=== PATIENT | male | born 1950 | race Caucasian/White ===

== ENCOUNTER 2016-08-05 12:03 | Emergency (ER) | payer MEDICARE, BC, OTHER ==
[2016-08-05 12:13] VITALS: TEMP 98.2
[2016-08-05] MEDS ORDERED: IPRATROPIUM 0.5 MG/2.5 ML NEBU INHALATION STA (12:40)
[2016-08-05] MEDS ORDERED: methylPREDNISolone SOD SUCCI 125 MG/2 ML VIAL IV STA (12:40)
[2016-08-05] MEDS ORDERED: ALBUTEROL NEBULIZED 2.5 MG/3 ML INHALATION STA (12:40)
[2016-08-05] MEDS ORDERED: SODIUM CHLORIDE 0.9% 1,000 ML IV STA (12:40)
[2016-08-05] MEDS ORDERED: cefTRIAXone 2,000 MG in SODIUM CHLORIDE 0.9% 100 ML IVPB STA (12:43)
[2016-08-05] MEDS ORDERED: PANTOPRAZOLE 40 MG/10 ML VIAL IVP STA (12:43)
[2016-08-05 13:00] LABS: Anisocytosis Slight; Basophils # (A) 0.1 k/uL (0-0.2); Basophils % (A) 1 %; CH 27.5; CHCM 30.8; Eosinophils # (A) 0.4 k/uL (0-0.7); Eosinophils % (A) 4 %; HCT 38.4 % (39.0-53.0); HDW 2.76; HGB 11.9 gm/dL (13.0-17.5); Hypochromasia Moderate; Luc # (Auto) 0.36; Luc % (Auto) 4; Lymphocytes # (A) 0.9 k/uL (1.0-4.8); Lymphocytes % (A) 11 %; MCH 27.9 pg (25.0-35.0); MCV 90.1 fL (80.0-100.0); Mean Platelet Volume 7.2; Monocytes # (A) 0.7 k/uL (0-1.0); Monocytes % (A) 8 %; Neutrophils % (A) 72 %; RBC 4.26 m/uL (4.30-5.90); RDW 16.3 % (11.5-15.5); WBC 8.4 k/uL (3.8-10.6); WBC (Perox) 8.63
--- NOTE | 2016-08-05 13:02 | XR ---
EXAMINATION TYPE: XR chest 2V DATE OF EXAM: 08/05/2016 12:57 PM COMPARISON: March 19, 2016 HISTORY: Shortness of breath TECHNIQUE: Frontal and lateral views of the chest are obtained. FINDINGS: Scattered senescent parenchymal changes noted. Hyperinflation compatible with COPD. No evidence for infiltrate. No evidence for atelectasis. Heart size is stable. Mediastinal structures are stable and grossly unremarkable. No evidence for hilar prominence. Degenerative changes dorsal spine. IMPRESSION: 1. No evidence for acute pulmonary disease.
[2016-08-05 13:17] LABS: VBG PH 7.4 (7.31-7.41)
[2016-08-05 13:18] LABS: INR 1.5 (<1.1)
[2016-08-05 13:19] LABS: ALT 52 U/L (21-72); AST 101 U/L (17-59); Alkaline Phosphatase 198 U/L (38-126); Anion Gap 13 mmol/L; Blood Urea Nitrogen 18 mg/dL (9-20); Calcium 8.6 mg/dL (8.4-10.2); Carbon Dioxide 32 mmol/L (22-30); Chloride 98 mmol/L (98-107); Glucose 108 mg/dL (74-99); Non-African American GFR(MDRD) >60 (>60 ml/min/1.73 sqM); Partial Thromboplastin Time 34.4 sec (22.0-30.0); Prothrombin Time 14.6 sec (9.0-12.0); Sodium 143 mmol/L (137-145); Total Bilirubin 0.6 mg/dL (0.2-1.3); Total Protein 7.6 g/dL (6.3-8.2)
[2016-08-05 13:35] LABS: Creatine Kinase 57 U/L (55-170)
[2016-08-05 13:47] LABS: Creatine Kinase MB 1.5 ng/mL (0.0-2.4); Troponin I <0.012 ng/mL (0.000-0.034)
[2016-08-05] MEDS ORDERED: RX INFO: IV CONTRAST WAS GIVEN 1 EACH MISC MISCELLANE PRN (16:23)
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
[2016-08-05 16:58] VITALS: RESP 20
[2016-08-05 17:05] VITALS: BP 144/67; PULSE 61
--- NOTE | 2016-08-05 17:14 | CT ---
EXAMINATION TYPE: CT chest angio for PE DATE OF EXAM: 08/05/2016 5:05 PM COMPARISON: 08/23/2014 HISTORY: Difficulty breathing and chest pain. CT DLP: 790.00 mGycm Automated exposure control for dose reduction was used. CONTRAST: CT Chest for pulmonary embolism performed with with IV Contrast, patient injected with 100 mL of Omni paque 350. FINDINGS: There are small bilateral pleural effusions. The heart appears enlarged. There is aneurysm of the aor tic arch and the proximal descending thoracic aorta that measures up to 4.4 cm. There is normal contr ast opacification of the pulmonary arteries. I see no filling defects. There is no evidence of aortic dissection. There is no pericardial effusion. There is mild subpleural interstitial density in the l eft lung. There is some mild infiltrate and atelectasis at the left posterior lung base. There is sim ilar change at the medial posterior right lung base. IMPRESSION: No evidence of pulmonary embolism. Bilateral pleural effusions with basilar mild infiltrates and atel ectasis. 4.4 cm descending thoracic aortic aneurysm. Aneurysm is stable compared to 08/23/2014. There is significant clearing of the extensive pulmonary edema in the mid and upper lung melendrez and the ext ensive consolidation at the lung bases compared to last exam. Cardiomegaly. Small pleural effusions. There is probably a small hiatal hernia.
== END 2016-08-05 19:31 | disposition home or self-care (01) ==
LOC: EC 12:03
DX: R06.00 Dyspnea, unspecified (principal); K92.2 Gastrointestinal hemorrhage, unspecified; I71.2 Thoracic aortic aneurysm, without rupture; J90 Pleural effusion, not elsewhere classified; I51.7 Cardiomegaly; I48.92 Unspecified atrial flutter; I10 Essential (primary) hypertension; I25.10 Atherosclerotic heart disease of native coronary artery without angina pectoris; E78.5 Hyperlipidemia, unspecified; J44.9 Chronic obstructive pulmonary disease, unspecified; I27.2 Other secondary pulmonary hypertension; H35.30 Unspecified macular degeneration; K21.9 Gastro-esophageal reflux disease without esophagitis; F17.200 Nicotine dependence, unspecified, uncomplicated; Z95.2 Presence of prosthetic heart valve; Z79.01 Long term (current) use of anticoagulants; Z79.82 Long term (current) use of aspirin; Z98.61 Coronary angioplasty status; Z86.718 Personal history of other venous thrombosis and embolism; Z79.899 Other long term (current) drug therapy
CPT/HCPCS: 99291; 96365; 96366 ×2; 96375 ×2; 36415; 94640; 93005; 85379; 83880; 80053; 82550; 82553; 82803; 84484; 85025; 85610; 85730; 82272; 71020; 71275; J2930; Q9967; J0696; C9113

== ENCOUNTER 2016-08-11 13:01 | Inpatient (IN) | payer MEDICARE, BC ==
[2016-08-11] MEDS ORDERED: FUROSEMIDE 10 MG/ML 10 ML VIAL IV STA (13:46)
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
--- NOTE | 2016-08-11 15:07 | XR ---
EXAMINATION TYPE: XR chest 2V DATE OF EXAM: 08/11/2016 2:52 PM COMPARISON: Prior chest x-ray 05 August 2016 HISTORY: Difficulty breathing, chest pain TECHNIQUE: Frontal and lateral views of the chest are obtained. FINDINGS: Patient is post median sternotomy. Surgical clips again noted in the right upper chest lev el. Probable metallic foreign body at the level of the distal right clavicle. Heart is enlarged. Interstitium and central vascularity are prominent. No pneumothorax or pleural eff usion. Prominent lung volumes suggest underlying COPD. There are coronary artery calcifications, atri al appendage clip. IMPRESSION: Correlate for pulmonary venous hypertension and early interstitial edema.
[2016-08-11 15:08] LABS: Basophils % (A) 0 %; CH 27.4; CHCM 31.1; Eosinophils # (A) 0.2 k/uL (0-0.7); Eosinophils % (A) 2 %; HCT 38.4 % (39.0-53.0); HDW 2.88; HGB 11.8 gm/dL (13.0-17.5); Hypochromasia Moderate; Luc # (Auto) 0.27; Luc % (Auto) 3; Lymphocytes # (A) 1.2 k/uL (1.0-4.8); Lymphocytes % (A) 13 %; MCH 27.2 pg (25.0-35.0); MCHC 30.7 g/dL (31.0-37.0); MCV 88.7 fL (80.0-100.0); Mean Platelet Volume 7.7; Monocytes # (A) 0.8 k/uL (0-1.0); Monocytes % (A) 8 %; Neutrophils # (A) 6.6 k/uL (1.3-7.7); Neutrophils % (A) 73 %; RBC 4.34 m/uL (4.30-5.90); RDW 15.8 % (11.5-15.5); WBC 9.1 k/uL (3.8-10.6); WBC (Perox) 9.51
[2016-08-11 15:16] LABS: ALT 46 U/L (21-72); AST 70 U/L (17-59); Alkaline Phosphatase 172 U/L (38-126); Anion Gap 9 mmol/L; Blood Urea Nitrogen 20 mg/dL (9-20); Calcium 8.5 mg/dL (8.4-10.2); Carbon Dioxide 31 mmol/L (22-30); Chloride 96 mmol/L (98-107); Glucose 89 mg/dL (74-99); Magnesium 1.4 mg/dL (1.6-2.3); Non-African American GFR(MDRD) >60 (>60 ml/min/1.73 sqM); Potassium 4.5 mmol/L (3.5-5.1); Sodium 136 mmol/L (137-145); Total Bilirubin 0.9 mg/dL (0.2-1.3); Total Protein 7.3 g/dL (6.3-8.2)
[2016-08-11 15:17] LABS: Partial Thromboplastin Time 34.7 sec (22.0-30.0); Prothrombin Time 19.7 sec (9.0-12.0)
[2016-08-11 15:29] LABS: Creatine Kinase 45 U/L (55-170)
[2016-08-11 15:41] LABS: Creatine Kinase MB 1.4 ng/mL (0.0-2.4); Troponin I <0.012 ng/mL (0.000-0.034)
[2016-08-11] MEDS ORDERED: ASPIRIN 325 MG TAB PO STA (16:14)
[2016-08-11] MEDS ORDERED: FUROSEMIDE 10 MG/ML 4 ML VIAL IV SCH (16:15)
[2016-08-11] MEDS: NITROGLYCERIN OINT 1 INCH/GM PACKET TOPICAL SCH ×2 (18:27→22:09)
[2016-08-11] MEDS ORDERED: ALBUTEROL NEBULIZED 2.5 MG/3 ML INHALATION PRN (20:26)
[2016-08-11] MEDS ORDERED: Magnesium Replacement Protocol 1 EACH MISC MISCELLANE PRN (20:32)
[2016-08-11] MEDS: ATORVASTATIN 40 MG TAB PO SCH (22:06)
[2016-08-11] MEDS: FERROUS SULFATE 325 MG TAB PO SCH (22:06)
[2016-08-11] MEDS: PRAMIPEXOLE 0.25 MG TAB PO SCH (22:06)
[2016-08-11] MEDS: PREGABALIN 50 MG CAP PO SCH (22:06)
[2016-08-11] MEDS: WARFARIN 3 MG TAB PO SCH (22:06)
[2016-08-11] MEDS: ZONISAMIDE 25 MG CAP PO SCH (22:07)
[2016-08-11] MEDS: NICOTINE 21MG/24HR PATCH TRANSDERM SCH (22:07)
[2016-08-11] MEDS: METOPROLOL TARTRATE 50 MG TAB PO SCH (22:07)
[2016-08-11] MEDS: AMIODARONE 200 MG TAB PO SCH (22:08)
[2016-08-11] MEDS: BRIMONIDINE TARTRATE 0.2% DROPS 5 ML BTL BOTH EYES SCH (22:08)
[2016-08-11] MEDS: FUROSEMIDE 10 MG/ML 4 ML VIAL IV SCH (22:09)
[2016-08-11] MEDS: ARTIFICIAL TEARS-HYPROMELLOSE DROPS 15 ML BTL BOTH EYES SCH (22:09)
[2016-08-11] MEDS: MAGNESIUM SULFATE-D5W PMX 1 GM in DEXTROSE/WATER 1 100ML.BAG IVPB SCH (22:10)
[2016-08-12] MEDS: MAGNESIUM SULFATE-D5W PMX 1 GM in DEXTROSE/WATER 1 100ML.BAG IVPB SCH ×2 (00:11→01:23)
[2016-08-12] MEDS ORDERED: ALBUTEROL NEBULIZED 2.5 MG/3 ML INHALATION SCH (02:00)
[2016-08-12 03:22] LABS: INR 1.8 (<1.1); Prothrombin Time 17.6 sec (9.0-12.0)
[2016-08-12] MEDS: ALBUTEROL NEBULIZED 2.5 MG/3 ML INHALATION SCH ×4 (08:38→20:12)
[2016-08-12] MEDS: SYMBICORT 160-4.5 MCG INHALER INHALATION SCH ×2 (08:38→20:12)
[2016-08-12] MEDS: AMIODARONE 200 MG TAB PO SCH ×2 (08:39→21:15)
[2016-08-12] MEDS: POTASSIUM CHLORIDE ER 20 MEQ TAB.ER PO SCH (08:39)
[2016-08-12] MEDS: TIOTROPIUM 18 MCG/PUFF INHALER INHALATION SCH (08:39)
[2016-08-12] MEDS: DILTIAZEM CD 240 MG CAP.ER.24H PO SCH (08:39)
[2016-08-12] MEDS: FOLIC ACID 1 MG TAB PO SCH (08:39)
[2016-08-12] MEDS: METOPROLOL TARTRATE 50 MG TAB PO SCH ×2 (08:39→21:16)
[2016-08-12] MEDS: FERROUS SULFATE 325 MG TAB PO SCH (08:39)
[2016-08-12] MEDS: PREGABALIN 50 MG CAP PO SCH ×2 (08:39→21:16)
[2016-08-12] MEDS: ASPIRIN 81 MG CHEW PO SCH (08:39)
[2016-08-12] MEDS: NITROGLYCERIN OINT 1 INCH/GM PACKET TOPICAL SCH (08:40)
[2016-08-12] MEDS: BRIMONIDINE TARTRATE 0.2% DROPS 5 ML BTL BOTH EYES SCH ×2 (08:40→21:16)
[2016-08-12] MEDS: FUROSEMIDE 10 MG/ML 4 ML VIAL IV SCH ×3 (08:40→22:57)
[2016-08-12] MEDS: PANTOPRAZOLE 40 MG TABLET PO SCH (08:40)
[2016-08-12] MEDS: ARTIFICIAL TEARS-HYPROMELLOSE DROPS 15 ML BTL BOTH EYES SCH ×4 (08:40→21:17)
[2016-08-12] MEDS: MULTIVITAMINS, THERA 1 EACH TAB PO SCH (08:41)
[2016-08-12] MEDS: NICOTINE 21MG/24HR PATCH TRANSDERM SCH ×2 (08:41→08:52)
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
--- NOTE | 2016-08-12 16:31 | HP ---
DATE OF ADMISSION: This patient is a 66-year-old gentleman with severe COPD, chronic persistent atrial fibrillation, prior valve replacement. He came in with complaints of shortness of breath. Patient does not give me clear history of orthopnea, PND. Patient does have pets, history of COPD as well. Continues to smoke at this point of time, although patient has minimal wheezing. Beyond that, patient did not have much wheezing. Chest x-ray is consistent with pulmonary edema with bilateral pedal edema and worsening shortness of breath with some orthopnea. No clear history of PND. Patient was complaining of cough with yellowish sputum production. Patient's EKG showed atrial fibrillation with controlled ventricular rate. Patient is admitted here for CHF exacerbation. Patient has chronic diastolic dysfunction. Patient received CABG in the past. BNP is 1460. Patient was started on IV Lasix with ( ) diuresis. Patient says he is concerned with his diet, though, and conflict with his medications. REVIEW OF SYSTEMS: CONSTITUTIONAL: No fever, no malaise, no fatigue. HEENT: No recent visual problems or hearing problems. Denied any sore throat. CARDIOVASCULAR: As described in HPI. PULMONARY: As described in HPI. GASTROINTESTINAL: No diarrhea, no nausea, no vomiting, no abdominal pain. Normoactive bowel sounds. NEUROLOGICAL: No headaches, no weakness, no numbness. HEMATOLOGICAL: Denies any bleeding or petechiae. GENITOURINARY: Denies any burning micturition, frequency, or urgency. MUSCULOSKELETAL/RHEUMATOLOGICAL: Denies any joint pain, swelling, or any muscle pain. ENDOCRINE: Denies any polyuria or polydipsia. The rest of the 14 point review of systems is negative. Past medical history is significant for: 1. Atrial fibrillation. 2. Chronic diastolic dysfunction. 3. Coronary artery disease with previous history of CABG. 4. COPD. 5. DVT in the past, on Coumadin anticoagulation. 6. Gastroesophageal reflux disease. 7. Hyperlipidemia. 8. Hypertension. 9. Liver disease. 10. Aortic valve replacement with a bioprosthetic aortic valve. 11. Chronic stable aortic dissection. PAST SURGICAL HISTORY: 1. Cardiac valve replacement. 2. Cardiac catheterization. 3. Hernia repair. 4. Orthopedic surgery. 5. Prostate surgery. SOCIAL HISTORY: Patient does smoke. Denied any alcohol abuse or any drug abuse. FAMILY HISTORY: Mother had diabetes mellitus; at age 74. Father had congestive heart failure; at age 91. Home medications include: 1. Amiodarone. 2. Aspirin. 3. Diltiazem. 4. Metoprolol. 5. Potassium chloride. 6. Zonegran. 7. Budesonide/formoterol. 8. Brimonidine. 9. Thiamine. 10. Artificial Tears. 11. Ferrous sulfate. 12. Pramipexole. 13. Albuterol. 14. Multivitamins. 15. Spiriva. 16. Tiotropium. 17. Coumadin. PHYSICAL EXAMINATION: VITAL SIGNS: Temperature 97.8, pulse of 96, respiratory rate of 16. Blood pressure is 113/53. Saturating at 100% on room air. GENERAL: Obese gentleman. Alert and oriented x3, not in significant respiratory distress. HEENT: Pupils are round and equally reacting to light. EOMI. No scleral icterus. No conjunctival pallor. Normocephalic, atraumatic. No pharyngeal erythema. No thyromegaly. CARDIOVASCULAR: S1, S2 present. Irregularly irregular rhythm. I am not able to appreciate JVD. Patient does have pedal edema. I did not appreciate any S3, either. PULMONARY: Bibasilar crackles are heard. ABDOMEN: Soft, nontender, nondistended, normoactive bowel sounds. No palpable organomegaly. MUSCULOSKELETAL: No joint swelling or deformity. EXTREMITIES: No cyanosis, clubbing. Patient does have pedal edema. NEUROLOGICAL: Gross neurological examination did not reveal any focal deficits. SKIN: No rashes. LABORATORY DATA: CBC, CMP are abnormal for minimally elevated ( ) INR: I have to recheck the INR. EKG: Atrial fibrillation with controlled ventricular response. ASSESSMENT AND PLAN: 1. Congestive heart failure; chronic diastolic dysfunction with acute exacerbation and moderate pulmonary hypertension. Patient is being diuresed, as mentioned above. 2. Moderate pulmonary hypertension. 3. Persistent atrial fibrillation, rate controlled. INR is subtherapeutic at 1.8. Will continue the same dose of Coumadin. Will recheck the INR tomorrow. 4. Hyperlipidemia. 5. Chronic obstructive pulmonary disease with minimal exacerbation. I will watch him without systemic steroids. If patient's symptoms do not improve, will start him on systemic steroids. 6. Nicotine dependence. Counseling was provided. 7. Aortic valve replacement. 8. History of deep venous thrombosis. 9. Prior history of ( ) 10. Hepatitis C. 11. Alcoholic abuse history in the past. 12. Aortic dissection history in the past. 13. Gastroesophageal reflux disease. 14. Hyperlipidemia. For the above-mentioned chronic medical problems, I will go ahead and continue his home medications. Extensive counseling regarding smoking cessation was provided.
[2016-08-12] MEDS: ZONISAMIDE 25 MG CAP PO SCH ×2 (16:53→22:57)
[2016-08-12] MEDS: WARFARIN 2 MG TAB PO SCH (16:57)
[2016-08-12] MEDS: PRAMIPEXOLE 0.25 MG TAB PO SCH (21:16)
[2016-08-12] MEDS: ATORVASTATIN 40 MG TAB PO SCH (21:16)
[2016-08-13 06:32] LABS: CH 27.4; CHCM 30.3; HCT 35.8 % (39.0-53.0); HGB 10.6 gm/dL (13.0-17.5); Hypochromasia Marked; MCH 27.1 pg (25.0-35.0); MCHC 29.7 g/dL (31.0-37.0); Mean Platelet Volume 8.2; RBC 3.93 m/uL (4.30-5.90); RDW 15.8 % (11.5-15.5); WBC 7.8 k/uL (3.8-10.6)
[2016-08-13 06:47] LABS: Anion Gap 10 mmol/L; Blood Urea Nitrogen 15 mg/dL (9-20); Calcium 8.6 mg/dL (8.4-10.2); Carbon Dioxide 31 mmol/L (22-30); Chloride 100 mmol/L (98-107); Glucose 109 mg/dL (74-99); Non-African American GFR(MDRD) >60 (>60 ml/min/1.73 sqM); Potassium 4.2 mmol/L (3.5-5.1); Sodium 141 mmol/L (137-145)
[2016-08-13] MEDS: FUROSEMIDE 10 MG/ML 4 ML VIAL IV SCH ×2 (07:51→21:15)
[2016-08-13] MEDS: BRIMONIDINE TARTRATE 0.2% DROPS 5 ML BTL BOTH EYES SCH ×2 (07:52→21:15)
[2016-08-13] MEDS: FOLIC ACID 1 MG TAB PO SCH (07:52)
[2016-08-13] MEDS: DILTIAZEM CD 240 MG CAP.ER.24H PO SCH (07:52)
[2016-08-13] MEDS: FERROUS SULFATE 325 MG TAB PO SCH (07:52)
[2016-08-13] MEDS: ASPIRIN 81 MG CHEW PO SCH (07:52)
[2016-08-13] MEDS: ARTIFICIAL TEARS-HYPROMELLOSE DROPS 15 ML BTL BOTH EYES SCH ×4 (07:52→23:04)
[2016-08-13] MEDS: PANTOPRAZOLE 40 MG TABLET PO SCH (07:53)
[2016-08-13] MEDS: AMIODARONE 200 MG TAB PO SCH ×2 (07:53→21:14)
[2016-08-13] MEDS: NICOTINE 21MG/24HR PATCH TRANSDERM SCH (07:53)
[2016-08-13] MEDS: ZONISAMIDE 25 MG CAP PO SCH ×2 (07:53→21:12)
[2016-08-13] MEDS: METOPROLOL TARTRATE 50 MG TAB PO SCH ×3 (07:53→21:13)
[2016-08-13] MEDS: MULTIVITAMINS, THERA 1 EACH TAB PO SCH (07:53)
[2016-08-13] MEDS: POTASSIUM CHLORIDE ER 20 MEQ TAB.ER PO SCH (07:53)
[2016-08-13] MEDS: PREGABALIN 50 MG CAP PO SCH ×2 (07:54→21:13)
[2016-08-13] MEDS: ALBUTEROL NEBULIZED 2.5 MG/3 ML INHALATION SCH ×4 (08:31→20:50)
[2016-08-13] MEDS: TIOTROPIUM 18 MCG/PUFF INHALER INHALATION SCH (08:31)
[2016-08-13] MEDS: SYMBICORT 160-4.5 MCG INHALER INHALATION SCH ×2 (08:31→20:48)
[2016-08-13 10:53] LABS: INR 1.9 (<1.1); Prothrombin Time 18.2 sec (9.0-12.0)
--- NOTE | 2016-08-13 12:20 | P.PN ---
Subjective Principal diagnosis: CHF This is a pleasant 66-year-old gentleman with a past medical history significant for heart failure with preserved LV, systemic hypertension, chronic atrial fibrillation, and COPD, was admitted to the hospital with acute respiratory failure secondary to congestive heart failure exacerbation. The last echocardiogram showed preserved LV function with EF of 50-55%. On follow-up with the patient today, he still short of breath. He still have bilateral lower extremities edema. And also he still have crackles on examination. The kidney function was checked and seems to be normal. I will continue the patient on Lasix IV for additional 24-hour and reassess the patient in the morning and follow-up with the kidney function in the morning. He underwent an echocardiogram which we don't have the results back yet. Objective - Vital Signs Vital signs: Vital Signs Temp 98.2 F 08/13/16 11:50 Pulse 64 08/13/16 11:59 Resp 18 08/13/16 11:50 BP 109/54 08/13/16 11:50 Pulse Ox 94 L 08/13/16 11:50 Intake & Output 08/12/16 08/13/16 08/13/16 18:59 06:59 18:59 Intake Total 600 300 Output Total 700 2475 500 Balance -100 -2175 -500 Weight 101.5 kg Intake: Oral 600 300 Output: Urine 700 2475 500 Other: Voiding Method Urinal Urinal # Voids 1 1 # Bowel Movements 0 0 - Constitutional General appearance: Present: no acute distress - Respiratory Respiratory: bilateral: rales - Cardiovascular Rhythm: irregularly irregular Heart sounds: normal: S1, S2 - Labs CBC & Chem 7: 08/13/16 06:03 08/13/16 06:03 Labs: Abnormal Lab Results - Last 24 Hours (Table) 08/13/16 08/13/16 08/13/16 Range/Units 06:03 06:03 10:27 RBC 3.93 L (4.30-5.90) m/uL Hgb 10.6 L (13.0-17.5) gm/dL Hct 35.8 L (39.0-53.0) % MCHC 29.7 L (31.0-37.0) g/dL RDW 15.8 H (11.5-15.5) % PT 18.2 H (9.0-12.0) sec Carbon Dioxide 31 H (22-30) mmol/L Glucose 109 H (74-99) mg/dL Assessment and Plan Plan: Assessment #1 congestive heart failure exacerbation secondary to diastolic dysfunction #2 claudication fibrillation was controlled heart rate #3 moderate to severe COPD #4 multiple comorbid conditions Plan #1 continue the IV Lasix for additional 24 hours #2 continue monitoring the kidney function and electrolytes #3 follow-up with the patient
--- NOTE | 2016-08-13 12:52 | ECHOF ---
Referral Reason:CHF MEASUREMENTS -------- HEIGHT: 175.3 cm WEIGHT: 103.4 kg BP: RVIDd: 3.8 cm (< 3.3) IVSd: 1.3 cm (0.6 - 1.1) LVIDd: 5.1 cm (3.9 - 5.3) LVPWd: 1.3 cm (0.6 - 1.1) IVSs: 2.0 cm LVIDs: 2.7 cm LVPWs: 2.0 cm Ao Diam: 4.0 cm (2.0 - 3.7) AV Cusp: 1.2 cm (1.5 - 2.6) LA Diam: 4.8 cm (2.7 - 3.8) MV EXCURSION: 10.152 mm (> 18.000) MV EF SLOPE: 88 mm/s (70 - 150) EPSS: 0.7 cm MV E Juan: 1.02 m/s MV DecT: 165 ms MV A Juan: 0.28 m/s MV E/A Ratio: 3.65 AV maxP.00 mmHg AV meanP.06 mmHg AR PHT: 472 ms RAP: 5.00 mmHg RVSP: 32.12 mmHg FINDINGS -------- Sinus rhythm. This was a technically difficult study with suboptimal views. There is mild concentric left ventricular hypertrophy. Overall left ventricular systolic function is low-normal with, an EF between 50 - 55 %. There is paradoxical/dysynergic septal motion consistent with post-operative status. The right ventricle is mild to moderately enlarged. The left atrium is mildly dilated. The right atrium is normal in size. 1.5mg of Definity was utilized for enhancement of images Aortic valve is trileaflet and is moderately thickened. There is mild aortic regurgitation. The mitral valve leaflets are mildly thickened. Mild mitral annular calcification present. Mild mitral regurgitation is present. Mild tricuspid regurgitation present. The right ventricular systolic pressure, as measured by Doppler, is 32.12mmHg. Pulmonic valve appears structurally normal. The aortic root is mildy dilated. The pericardium is normal. CONCLUSIONS -------- 1. Sinus rhythm. 2. Aortic valve is trileaflet and is moderately thickened. 3. There is mild aortic regurgitation. 4. The mitral valve leaflets are mildly thickened. 5. Mild mitral annular calcification present. 6. Mild mitral regurgitation is present. 7. Mild tricuspid regurgitation present. 8. The right ventricular systolic pressure, as measured by Doppler, is 32.12mmHg. 9. Pulmonic valve appears structurally normal. 10. The aortic root is mildy dilated. 11. The pericardium is normal. 12. This was a technically difficult study with suboptimal views. 13. There is mild concentric left ventricular hypertrophy. 14. Overall left ventricular systolic function is low-normal with, an EF between 50 - 55 %. 15. There is paradoxical/dysynergic septal motion consistent with post-operative status. 16. The right ventricle is mild to moderately enlarged. 17. The left atrium is mildly dilated. 18. The right atrium is normal in size. 19. 1.5mg of Definity was utilized for enhancement of images [employer]: Paz Payne RDCS
[2016-08-13 14:22] VITALS: BMI 33.0
--- NOTE | 2016-08-13 16:52 | PN ---
Patient is a 66-year-old admitted with CHF exacerbation. The patient has had some dysfunction with acute exacerbation. Patient is clinically doing well. We will continue with diuretic therapy for 24 more hours and possibly the patient can be discharged tomorrow. REVIEW OF SYSTEMS: CARDIOVASCULAR: No chest pain, no orthopnea, no PND, no palpitations. PULMONARY: Denied any shortness of breath. No cough or hemoptysis. GASTROINTESTINAL: No diarrhea, nausea or vomiting. No abdominal pain. Normoactive bowel sounds. NEUROLOGIC: No headaches, no weakness, no numbness. Medications were reviewed. PHYSICAL EXAMINATION: Temperature 98.2, pulse of 64, respiratory rate 18, and blood pressure is 109/54, saturating at 94% on 2 L O2 by nasal cannula. GENERAL: The patient is alert and oriented x3, not in any acute distress. Well developed, well nourished. HEENT: Pupils are round and equally reacting to light. EOMI. No scleral icterus. No conjunctival pallor. Normocephalic, atraumatic. No pharyngeal erythema. No thyromegaly. CARDIOVASCULAR: JVD did improve. No murmurs, rubs, or gallops are appreciated. PULMONARY: Chest is clear to auscultation, no wheezing or crackles. ABDOMEN: Soft, nontender, nondistended, normoactive bowel sounds. No palpable organomegaly. MUSCULOSKELETAL: No joint swelling or deformity. EXTREMITIES: No cyanosis, clubbing, or pedal edema. NEUROLOGICAL: Gross neurological examination did not reveal any focal deficits. SKIN: No rashes. LABORATORY DATA: CBC, CMP, essentially within normal limits. Metabolic profile no significant abnormality was appreciated except for mildly low hemoglobin of 10.6. ASSESSMENT: 1. Congestive heart failure, chronic diastolic dysfunction with acute exacerbation. Patient has moderate pulmonary hypertension as well. 2. Atrial fibrillation, rate controlled. INR is 1.9 now. Continue the same dose of Coumadin. Repeat INR tomorrow. 3. Hyperlipidemia. 4. Chronic obstructive pulmonary disease with minimal exacerbation. 5. Continue with inhalational steroids. Patient has significant improvement in chronic obstructive pulmonary disease as well. 6. Aortic valve replacement. 7. History of deep venous thrombosis. 8. Continued Nicotine abuse. Counseling was provided. 9. Hepatitis C. 10. Differential swelling of bilateral lower limbs. The patient's right leg is more swollen than left and this is secondary to saphenous venous graft loss of saphenous vein and has been like that since his surgery. 11. Alcohol abuse. 12. Aortic dissection history in the past. 13. Gastroesophageal reflux disease. Patient will be discharged ( ) we will continue with ( ) the patient will need IV diuretic therapy for probably one more day and patient probably can be discharged tomorrow.
[2016-08-13] MEDS: WARFARIN 3 MG TAB PO SCH (21:12)
[2016-08-13] MEDS: PRAMIPEXOLE 0.25 MG TAB PO SCH (21:13)
[2016-08-13] MEDS: ATORVASTATIN 40 MG TAB PO SCH (21:14)
[2016-08-14 06:30] LABS: Anion Gap 8 mmol/L; Blood Urea Nitrogen 16 mg/dL (9-20); Calcium 8.6 mg/dL (8.4-10.2); Carbon Dioxide 35 mmol/L (22-30); Chloride 101 mmol/L (98-107); Glucose 106 mg/dL (74-99); Non-African American GFR(MDRD) >60 (>60 ml/min/1.73 sqM); Potassium 4.1 mmol/L (3.5-5.1); Sodium 144 mmol/L (137-145)
[2016-08-14] MEDS: PANTOPRAZOLE 40 MG TABLET PO SCH (06:59)
[2016-08-14] MEDS: NICOTINE 21MG/24HR PATCH TRANSDERM SCH (07:39)
[2016-08-14] MEDS: PREGABALIN 50 MG CAP PO SCH ×2 (07:39→20:39)
[2016-08-14] MEDS: FOLIC ACID 1 MG TAB PO SCH (07:40)
[2016-08-14] MEDS: ZONISAMIDE 25 MG CAP PO SCH ×2 (07:40→20:39)
[2016-08-14] MEDS: MULTIVITAMINS, THERA 1 EACH TAB PO SCH (07:40)
[2016-08-14] MEDS: METOPROLOL TARTRATE 50 MG TAB PO SCH ×2 (07:40→20:39)
[2016-08-14] MEDS: POTASSIUM CHLORIDE ER 20 MEQ TAB.ER PO SCH (07:40)
[2016-08-14] MEDS: ARTIFICIAL TEARS-HYPROMELLOSE DROPS 15 ML BTL BOTH EYES SCH ×4 (07:41→20:39)
[2016-08-14] MEDS: AMIODARONE 200 MG TAB PO SCH ×2 (07:41→20:39)
[2016-08-14] MEDS: FUROSEMIDE 10 MG/ML 4 ML VIAL IV SCH ×2 (07:41→20:40)
[2016-08-14] MEDS: BRIMONIDINE TARTRATE 0.2% DROPS 5 ML BTL BOTH EYES SCH ×2 (07:42→20:39)
[2016-08-14] MEDS: ASPIRIN 81 MG CHEW PO SCH (07:42)
[2016-08-14] MEDS: DILTIAZEM CD 240 MG CAP.ER.24H PO SCH (07:42)
[2016-08-14] MEDS: FERROUS SULFATE 325 MG TAB PO SCH (07:42)
--- NOTE | 2016-08-14 07:55 | XR ---
EXAMINATION TYPE: XR chest 1V DATE OF EXAM: 08/14/2016 7:23 AM COMPARISON: 08/11/2016 HISTORY: 66-year-old male CHF TECHNIQUE: Single frontal view of the chest is obtained. FINDINGS: Heart remains borderline enlarged. Mild elongation of the thoracic aorta. Median sternotomy wires are present with post-CABG changes. Multiple surgical clips projecting over the peripheral right upper l dimitry. Diffuse interstitial prominence is unchanged. No consolidation or pleural effusion. IMPRESSION: Similar borderline cardiomegaly and interstitial prominence. Correlate to exclude mild CHF. No flip pulmonary edema.
[2016-08-14] MEDS: TIOTROPIUM 18 MCG/PUFF INHALER INHALATION SCH (08:30)
[2016-08-14] MEDS: ALBUTEROL NEBULIZED 2.5 MG/3 ML INHALATION SCH ×4 (08:30→19:25)
[2016-08-14] MEDS: SYMBICORT 160-4.5 MCG INHALER INHALATION SCH ×2 (08:30→19:25)
--- NOTE | 2016-08-14 09:44 | P.PN ---
Subjective Principal diagnosis: CHF This is a pleasant 66-year-old gentleman with a past medical history significant for heart failure with preserved LV, systemic hypertension, chronic atrial fibrillation, and COPD, was admitted to the hospital with acute respiratory failure secondary to congestive heart failure exacerbation. The last echocardiogram showed preserved LV function with EF of 50-55%. On follow-up with the patient today, he is feeling better indeterminable shortness of breath but he still have bilateral lower extremities edema. On physical examination he still have bilateral crackles. He continues to be in A. fib with controlled heart rate and he is known to have chronic atrial fibrillation. He is on Coumadin and the INR today is 1.9. I will continue the patient on Lasix IV for additional 24-hour and reassess the patient in the morning and follow-up with the kidney function in the morning. The echocardiogram showed preserved left ventricular systolic function without significant valvular abnormalities. Objective - Vital Signs Vital signs: Vital Signs Temp 97.6 F 08/14/16 07:50 Pulse 56 L 08/14/16 08:53 Resp 18 08/14/16 07:51 BP 115/55 08/14/16 07:50 Pulse Ox 95 08/14/16 08:41 Intake & Output 08/13/16 08/14/16 08/14/16 18:59 06:59 18:59 Intake Total 356 300 240 Output Total 2000 1250 Balance -1644 -950 240 Weight 101.5 kg 99.8 kg Intake: Oral 356 300 240 Output: Urine 2000 1250 Other: Voiding Method Urinal Urinal # Voids 1 1 # Bowel Movements 0 - Constitutional General appearance: Present: no acute distress - Respiratory Respiratory: bilateral: rales - Cardiovascular Rhythm: irregularly irregular Heart sounds: normal: S1, S2 - Labs CBC & Chem 7: 08/13/16 06:03 08/14/16 05:45 Labs: Abnormal Lab Results - Last 24 Hours (Table) 08/13/16 08/14/16 Range/Units 10:27 05:45 PT 18.2 H (9.0-12.0) sec Carbon Dioxide 35 H (22-30) mmol/L Glucose 106 H (74-99) mg/dL Assessment and Plan Plan: Assessment #1 congestive heart failure exacerbation secondary to diastolic dysfunction #2 claudication fibrillation was controlled heart rate #3 moderate to severe COPD #4 multiple comorbid conditions Plan #1 continue the IV Lasix for additional 24 hours #2 continue monitoring the kidney function and electrolytes #3 follow-up with the patient
[2016-08-14] MEDS ORDERED: DOCUSATE 100 MG CAP PO PRN (12:45)
--- NOTE | 2016-08-14 17:03 | PN ---
Patient is a 66-year-old admitted with CHF exacerbation. Patient has diastolic dysfunction with acute exacerbation. Patient is also being treated for COPD exacerbation . Patient is clinically doing well. Improving creatinine with Lasix. Still has bilateral pedal edema. Will diurese him one more day and possible discharge ( ). REVIEW OF SYSTEMS: CARDIOVASCULAR: No chest pain, no orthopnea, no PND, no palpitations. PULMONARY: Denied any shortness of breath. No cough or hemoptysis. GASTROINTESTINAL: No diarrhea, nausea or vomiting. No abdominal pain. Normoactive bowel sounds. NEUROLOGIC: No headaches, no weakness, no numbness. Medications were reviewed, significant ones described above. PHYSICAL EXAMINATION: VITAL SIGNS: Temperature 97.0, pulse of 54, respiratory rate of 18, blood pressure is 104/51, saturating at 94% on 2 L O2 nasal cannula. GENERAL: The patient is alert and oriented x3, not in any acute distress. Well developed, well nourished. HEENT: Pupils are round and equally reacting to light. EOMI. No scleral icterus. No conjunctival pallor. Normocephalic, atraumatic. No pharyngeal erythema. No thyromegaly. CARDIOVASCULAR: S1 and S2 present. Did not appreciate any JVD. No murmurs, rubs or gallops were appreciated. PULMONARY: Chest is clear to auscultation, no wheezing or crackles. ABDOMEN: Soft, nontender, nondistended, normoactive bowel sounds. No palpable organomegaly. MUSCULOSKELETAL: No joint swelling or deformity. EXTREMITIES: The patient does have 1 to 2+ pedal edema. NEUROLOGICAL: Gross neurological examination did not reveal any focal deficits. SKIN: No rashes. LABORATORY DATA: Basic metabolic profile did show improvement in creatinine. ASSESSMENT AND PLAN: 1. Congestive heart failure, chronic diastolic dysfunction with acute exacerbation, improvement with diuresis. 2. Moderate pulmonary hypertension. 3. Atrial fibrillation, rate controlled. INR is close to therapeutic 1.9. Continue same dose of Coumadin. Will repeat INR tomorrow. 4. Chronic obstructive pulmonary disease with minimal exacerbation. Continue with inhalational steroids. Will not need any systemic steroids at this point of time. 5. History of aortic valve replacement. 6. History of deep venous thrombosis in the past. 7. Continued nicotine use. 8. Hepatitis C. 9. Alcohol abuse. 10. Aortic dissection history in the past. 11. Gastroesophageal reflux disease. Plan is to continue with diuretic therapy, monitor kidney function, I's and O's and possibility of discharge tomorrow.
[2016-08-14] MEDS: WARFARIN 2 MG TAB PO SCH (17:28)
[2016-08-14] MEDS: PRAMIPEXOLE 0.25 MG TAB PO SCH (20:39)
[2016-08-14] MEDS: ATORVASTATIN 40 MG TAB PO SCH (20:39)
[2016-08-15] MEDS: PANTOPRAZOLE 40 MG TABLET PO SCH (06:44)
[2016-08-15 07:06] LABS: Anion Gap 11 mmol/L; Blood Urea Nitrogen 18 mg/dL (9-20); Calcium 8.8 mg/dL (8.4-10.2); Carbon Dioxide 32 mmol/L (22-30); Chloride 103 mmol/L (98-107); Glucose 92 mg/dL (74-99); Non-African American GFR(MDRD) >60 (>60 ml/min/1.73 sqM); Potassium 4.2 mmol/L (3.5-5.1); Sodium 146 mmol/L (137-145)
[2016-08-15 07:07] LABS: INR 1.9 (<1.1); Prothrombin Time 18.1 sec (9.0-12.0)
[2016-08-15] MEDS: NICOTINE 21MG/24HR PATCH TRANSDERM SCH (07:52)
[2016-08-15] MEDS: BRIMONIDINE TARTRATE 0.2% DROPS 5 ML BTL BOTH EYES SCH (07:53)
[2016-08-15] MEDS: FUROSEMIDE 10 MG/ML 4 ML VIAL IV SCH (07:53)
[2016-08-15] MEDS: ARTIFICIAL TEARS-HYPROMELLOSE DROPS 15 ML BTL BOTH EYES SCH (07:53)
[2016-08-15] MEDS: FERROUS SULFATE 325 MG TAB PO SCH (07:54)
[2016-08-15] MEDS: DILTIAZEM CD 240 MG CAP.ER.24H PO SCH (07:54)
[2016-08-15] MEDS: ASPIRIN 81 MG CHEW PO SCH (07:54)
[2016-08-15] MEDS: AMIODARONE 200 MG TAB PO SCH (07:54)
[2016-08-15] MEDS: ZONISAMIDE 25 MG CAP PO SCH (07:54)
[2016-08-15] MEDS: FOLIC ACID 1 MG TAB PO SCH (07:55)
[2016-08-15] MEDS: MULTIVITAMINS, THERA 1 EACH TAB PO SCH (07:55)
[2016-08-15] MEDS: PREGABALIN 50 MG CAP PO SCH (07:55)
[2016-08-15] MEDS: POTASSIUM CHLORIDE ER 20 MEQ TAB.ER PO SCH (07:55)
[2016-08-15] MEDS: METOPROLOL TARTRATE 50 MG TAB PO SCH (07:55)
[2016-08-15] MEDS: SYMBICORT 160-4.5 MCG INHALER INHALATION SCH (08:06)
[2016-08-15] MEDS: ALBUTEROL NEBULIZED 2.5 MG/3 ML INHALATION SCH ×2 (08:06→11:31)
[2016-08-15 08:11] VITALS: BP 117/57; RESP 20; TEMP 96.8
[2016-08-15] MEDS ORDERED: predniSONE 20 MG TAB PO SCH (11:00)
[2016-08-15] MEDS: TIOTROPIUM 18 MCG/PUFF INHALER INHALATION SCH (11:31)
[2016-08-15 11:36] VITALS: PULSE 64
--- NOTE | 2016-08-15 14:01 | P.PN ---
Subjective Principal diagnosis: CHF This is a pleasant 66-year-old gentleman with a past medical history significant for heart failure with preserved LV, systemic hypertension, chronic atrial fibrillation, and COPD, was admitted to the hospital with acute respiratory failure secondary to congestive heart failure exacerbation. The last echocardiogram showed preserved LV function with EF of 50-55%. On follow-up with the patient today, he is feeling better indeterminable shortness of breath but he still have bilateral lower extremities edema. He continues to be in A. fib with controlled heart rate and he is known to have chronic atrial fibrillation. He is on Coumadin and the INR today is 1.9. from the cardiac vascular standpoint overview, the patient can be discharged home. Objective - Vital Signs Vital signs: Vital Signs Temp 96.8 F L 08/15/16 08:00 Pulse 64 08/15/16 11:48 Resp 20 08/15/16 08:00 BP 117/57 08/15/16 08:00 Pulse Ox 95 08/15/16 08:00 Intake & Output 08/14/16 08/15/16 08/15/16 18:59 06:59 18:59 Intake Total 680 840 240 Output Total 800 2525 300 Balance -120 -1685 -60 Weight 98.4 kg Intake: Oral 680 840 240 Output: Urine 800 2525 300 Other: Voiding Method Urinal Urinal Urinal # Voids 1 2 1 # Bowel Movements 0 - Constitutional General appearance: Present: no acute distress - Respiratory Respiratory: bilateral: diminished - Cardiovascular Heart sounds: normal: S1, S2 - Labs CBC & Chem 7: 08/13/16 06:03 08/15/16 06:11 Labs: Abnormal Lab Results - Last 24 Hours (Table) 08/15/16 08/15/16 Range/Units 06:11 06:11 PT 18.1 H (9.0-12.0) sec Sodium 146 H (137-145) mmol/L Carbon Dioxide 32 H (22-30) mmol/L Assessment and Plan Plan: Assessment #1 congestive heart failure exacerbation secondary to diastolic dysfunction #2 claudication fibrillation was controlled heart rate #3 moderate to severe COPD #4 multiple comorbid conditions Plan #1 the patient can be discharged home
--- NOTE | 2016-08-16 07:58 | DS ---
DATE OF ADMISSION: 08/11/2016 DATE OF DISCHARGE: 08/15/2016 Patient is admitted with CHF exacerbation, chronic diastolic dysfunction with acute exacerbation. Patient is also being treated for mild COPD exacerbation. Patient is clinically doing well. He is being discharged today in stable medical condition to home. Patient was seen and examined on the day of discharge. Vitals are stable. PHYSICAL EXAMINATION: GENERAL: The patient is alert and oriented x3, not in any acute distress. Well developed, well nourished. HEENT: Pupils are round and equally reacting to light. EOMI. No scleral icterus. No conjunctival pallor. Normocephalic, atraumatic. No pharyngeal erythema. No thyromegaly. CARDIOVASCULAR: S1 and S2 present. No murmurs, rubs, or gallops. PULMONARY: Chest is clear to auscultation, no wheezing or crackles. ABDOMEN: Soft, nontender, nondistended, normoactive bowel sounds. No palpable organomegaly. MUSCULOSKELETAL: No joint swelling or deformity. EXTREMITIES: No cyanosis, clubbing, or pedal edema. NEUROLOGICAL: Gross neurological examination did not reveal any focal deficits. SKIN: No rashes. Patient has minimally wheeze bilaterally because of which I am putting him on systemic steroids and will be discharged on systemic steroids with taper and patient does not have any significant bronchitis at this point of time. FINAL DIAGNOSES: 1. Congestive heart failure, chronic diastolic dysfunction with acute exacerbation improvement with diuretic therapy. Patient will be discharged on 40 oral b.i.d. of Lasix. 2. Moderate pulmonary hypertension. 3. Atrial fibrillation, rate controlled. INR is close to therapeutic 1.9. Continue the same dose and repeat INR in about 3 days. 4. History of aortic valve replacement. 5. Deep venous thrombosis in the past, on anticoagulation with Coumadin. 6. History of hepatitis C. 7. Alcohol abuse. 8. Gastroesophageal reflux disease. For discharge medications please refer to my depart summary for further details of discharge medication. Patient will follow with Dr. Rangel Colin in 3 to 7 days. Activity as tolerated. Cardiac diet. CHF discharge instructions will be provided. Extensive counseling regarding CHF management was provided as well. Spent greater than 35 minutes in total discharge process.
== END 2016-08-15 12:45 | disposition home health service (06) | DRG 291 ==
LOC: EC 13:01 → 6SEL 16:14 → 5ONC 08-15 10:28
PROVIDERS: ADMIT Internal Medicine; ATTEND Internal Medicine
DX: I11.0 Hypertensive heart disease with heart failure (principal); I71.00 Dissection of unspecified site of aorta; I48.1 Persistent atrial fibrillation; J44.1 Chronic obstructive pulmonary disease with (acute) exacerbation; I27.2 Other secondary pulmonary hypertension; I48.2 Chronic atrial fibrillation; E83.42 Hypomagnesemia; B19.20 Unspecified viral hepatitis C without hepatic coma; I50.33 Acute on chronic diastolic (congestive) heart failure; E78.5 Hyperlipidemia, unspecified; F10.10 Alcohol abuse, uncomplicated; F17.200 Nicotine dependence, unspecified, uncomplicated; H35.30 Unspecified macular degeneration; I25.10 Atherosclerotic heart disease of native coronary artery without angina pectoris; K21.9 Gastro-esophageal reflux disease without esophagitis; H93.19 Tinnitus, unspecified ear; Z79.01 Long term (current) use of anticoagulants; Z79.82 Long term (current) use of aspirin; Z79.899 Other long term (current) drug therapy; Z85.46 Personal history of malignant neoplasm of prostate; Z82.49 Family history of ischemic heart disease and other diseases of the circulatory system; Z95.2 Presence of prosthetic heart valve
CPT/HCPCS: 36415; 71010; 71020; 80048; 80053; 82550; 82553; 83735; 83880; 84484; 85025; 85027; 85610; 85730; 93005; 93306; 94640; 94760; 96374; 99291

== ENCOUNTER 2016-08-22 17:31 | Inpatient (IN) | payer MEDICARE, BC ==
[2016-08-22] MEDS ORDERED: IPRATROPIUM-ALBUTEROL 3 ML NEB INHALATION STA (17:58)
[2016-08-22] MEDS ORDERED: methylPREDNISolone SOD SUCCI 125 MG/2 ML VIAL IV STA (17:59)
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
[2016-08-22] MEDS ORDERED: ACETAMINOPHEN IV (For NPO) 1,000 MG in SALINE 1 100ML.BAG IVPB STA (18:03)
[2016-08-22 18:12] LABS: Anisocytosis Slight; Basophils # (A) 0.1 k/uL (0-0.2); Basophils % (A) 0 %; CH 27.6; CHCM 31.2; Eosinophils # (A) 0.2 k/uL (0-0.7); Eosinophils % (A) 1 %; HCT 42.4 % (39.0-53.0); HGB 12.9 gm/dL (13.0-17.5); Hypochromasia Moderate; Immature Gran Flag Slight; Luc # (Auto) 0.07; Luc % (Auto) 0; Lymphocytes # (A) 0.8 k/uL (1.0-4.8); Lymphocytes % (A) 3 %; MCHC 30.3 g/dL (31.0-37.0); MCV 88.9 fL (80.0-100.0); Mean Platelet Volume 8.8; Monocytes # (A) 0.7 k/uL (0-1.0); Monocytes % (A) 3 %; Neutrophils # (A) 20.4 k/uL (1.3-7.7); Neutrophils % (A) 92 %; RBC 4.77 m/uL (4.30-5.90); RDW 16.3 % (11.5-15.5); WBC 22.1 k/uL (3.8-10.6); WBC (Perox) 21.63
--- NOTE | 2016-08-22 18:18 | XR ---
EXAMINATION TYPE: XR chest 1V portable DATE OF EXAM: 08/22/2016 6:06 PM COMPARISON: Prior chest x-ray 14 August 2016 HISTORY: COPD, difficulty breathing, pain TECHNIQUE: Single frontal view of the chest is obtained. FINDINGS: Patient is post median sternotomy, the heart is enlarged. There is prominence of the inter stitium. No pneumothorax or pleural effusion, there are overlying cardiac leads. IMPRESSION: Correlate for possible pulmonary venous hypertension and interstitial edema.
[2016-08-22 18:19] LABS: ALT 104 U/L (21-72); AST 164 U/L (17-59); Alkaline Phosphatase 234 U/L (38-126); Anion Gap 14 mmol/L; Blood Urea Nitrogen 20 mg/dL (9-20); Calcium 8.6 mg/dL (8.4-10.2); Carbon Dioxide 29 mmol/L (22-30); Chloride 102 mmol/L (98-107); Glucose 161 mg/dL (74-99); Non-African American GFR(MDRD) >60 (>60 ml/min/1.73 sqM); Sodium 145 mmol/L (137-145); Total Protein 8.2 g/dL (6.3-8.2)
[2016-08-22 18:20] LABS: INR 3.1 (<1.1); Partial Thromboplastin Time 27.2 sec (22.0-30.0); Prothrombin Time 30.3 sec (9.0-12.0)
[2016-08-22 18:22] LABS: Potassium 4.9 mmol/L (3.5-5.1)
[2016-08-22 18:34] LABS: Creatine Kinase 50 U/L (55-170)
[2016-08-22 18:36] LABS: Appearance,Urine Clear (Clear); Bacteria,Urine Rare /hpf; Bilirubin,Urine Negative (Negative); Glucose,Urine (UA) Negative (Negative); Ketones,Urine Negative (Negative); Leukocyte Esterase,Urine Negative (Negative); Mucus,Urine Rare /hpf; Nitrite,Urine Negative (Negative); Particle Count 1728; Protein,Urine 1+ (Negative); RBC,Urine 4 /hpf (0-5); Specific Gravity,Urine 1.011 (1.001-1.035); Squamous Epithelial Cell,Urine <1 /hpf (0-4); UA Billing (MACRO vs. MICRO) MICRO; Urobilinogen,Urine <2.0 mg/dL (<2.0); WBC,Urine <1 /hpf (0-5)
[2016-08-22 18:45] LABS: Manual Review Performed
[2016-08-22 18:47] LABS: Creatine Kinase MB 0.5 ng/mL (0.0-2.4); Troponin I <0.012 ng/mL (0.000-0.034)
[2016-08-22] MEDS ORDERED: IBUPROFEN IV 400 MG in SODIUM CHLORIDE 0.9% 250 ML IV ONE (19:14)
[2016-08-22] MEDS ORDERED: PIPERACILLIN-TAZOBACTAM 3.375 GM in DEXTROSE/WATER 1 50ML.BAG IVPB STA (19:15)
[2016-08-22] MEDS ORDERED: PNEUMONIA PROTOCOL UTILIZED 1 EACH MISC PO PRN (19:15)
[2016-08-22] MEDS ORDERED: LEVOFLOXACIN 750MG-D5W PMX 750 MG in DEXTROSE/WATER 1 150ML.BAG IVPB STA (19:15)
[2016-08-22] MEDS ORDERED: IPRATROPIUM-ALBUTEROL 3 ML NEB INHALATION PRN (19:15)
[2016-08-22] MEDS ORDERED: NALOXONE 0.4 MG/ML 1 ML VIAL IV PRN (20:25)
[2016-08-22] MEDS: SODIUM CHLORIDE 0.9% 1,000 ML IV SCH (22:42)
[2016-08-23] MEDS: PIPERACILLIN-TAZOBACTAM 3.375 GM in DEXTROSE/WATER 1 50ML.BAG IVPB SCH ×3 (03:17→16:13)
[2016-08-23 03:29] LABS: Anisocytosis Slight; Basophils % (A) 0 %; CH 27.1; CHCM 30.4; Eosinophils # (A) 0.1 k/uL (0-0.7); Eosinophils % (A) 1 %; HCT 39.6 % (39.0-53.0); HDW 2.79; Hypochromasia Marked; Luc # (Auto) 0.06; Luc % (Auto) 0; Lymphocytes # (A) 0.4 k/uL (1.0-4.8); Lymphocytes % (A) 2 %; MCH 27.1 pg (25.0-35.0); MCHC 30.3 g/dL (31.0-37.0); MCV 89.5 fL (80.0-100.0); Mean Platelet Volume 7.7; Monocytes # (A) 0.3 k/uL (0-1.0); Monocytes % (A) 2 %; Neutrophils # (A) 18.1 k/uL (1.3-7.7); Neutrophils % (A) 95 %; RBC 4.43 m/uL (4.30-5.90); WBC 19.1 k/uL (3.8-10.6); WBC (Perox) 18.44
[2016-08-23 04:00] LABS: ALT 93 U/L (21-72); AST 117 U/L (17-59); Alkaline Phosphatase 175 U/L (38-126); Anion Gap 9 mmol/L; Blood Urea Nitrogen 20 mg/dL (9-20); Calcium 8.6 mg/dL (8.4-10.2); Carbon Dioxide 31 mmol/L (22-30); Chloride 105 mmol/L (98-107); Glucose 152 mg/dL (74-99); Non-African American GFR(MDRD) >60 (>60 ml/min/1.73 sqM); Potassium 3.9 mmol/L (3.5-5.1); Sodium 145 mmol/L (137-145); Total Bilirubin 0.8 mg/dL (0.2-1.3); Total Protein 6.8 g/dL (6.3-8.2)
[2016-08-23] MEDS: IPRATROPIUM-ALBUTEROL 3 ML NEB INHALATION SCH ×2 (05:29→08:18)
[2016-08-23 06:04] LABS: Glucose,Whole Blood 150 mg/dL (75-99)
[2016-08-23] MEDS ORDERED: Potassium Replacement Protocol 1 EACH MISC MISCELLANE PRN (06:50)
[2016-08-23] MEDS ORDERED: POTASSIUM CHLORIDE ER 20 MEQ TAB.ER PO SCH (07:00)
--- NOTE | 2016-08-23 07:48 | XR ---
EXAMINATION TYPE: XR chest 1V portable DATE OF EXAM: 08/23/2016 6:43 AM COMPARISON: NONE INDICATION: Pneumonia TECHNIQUE: Single frontal view of the chest is obtained. FINDINGS: The heart size is normal. The pulmonary vascular markings are at the upper limits of normal. The lungs are clear. Sternotomy wires are present. Surgical clips overlie the right apex. IMPRESSION: 1. No acute pulmonary process.
[2016-08-23] MEDS ORDERED: ALBUTEROL NEBULIZED 2.5 MG/3 ML INHALATION PRN (10:37)
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
[2016-08-23] MEDS: ZONISAMIDE 25 MG CAP PO SCH ×2 (12:01→21:53)
[2016-08-23] MEDS: FUROSEMIDE 40 MG TAB PO SCH ×2 (12:03→21:53)
[2016-08-23] MEDS: ASPIRIN 81 MG CHEW PO SCH (12:03)
[2016-08-23] MEDS: FERROUS SULFATE 325 MG TAB PO SCH (12:03)
[2016-08-23] MEDS: AMIODARONE 200 MG TAB PO SCH ×2 (12:03→21:53)
[2016-08-23] MEDS: METOPROLOL TARTRATE 50 MG TAB PO SCH ×2 (12:03→21:53)
[2016-08-23] MEDS: MULTIVITAMINS, THERA 1 EACH TAB PO SCH (12:03)
[2016-08-23] MEDS: THIAMINE 100 MG TAB PO SCH (12:04)
[2016-08-23] MEDS: PREGABALIN 50 MG CAP PO SCH ×2 (12:04→21:53)
[2016-08-23] MEDS: DILTIAZEM CD 240 MG CAP.ER.24H PO SCH (12:04)
[2016-08-23] MEDS: PANTOPRAZOLE 40 MG TABLET PO SCH (12:05)
[2016-08-23] MEDS: FOLIC ACID 1 MG TAB PO SCH (12:05)
[2016-08-23] MEDS: predniSONE 5 MG TAB PO SCH (12:05)
[2016-08-23] MEDS: POTASSIUM CHLORIDE ER 20 MEQ TAB.ER PO SCH (12:05)
[2016-08-23] MEDS: VIT A,C & E-LUTEIN-MINERALS 1 EACH TAB PO SCH (12:06)
[2016-08-23] MEDS: BRIMONIDINE TARTRATE 0.2% DROPS 5 ML BTL BOTH EYES SCH ×2 (12:06→21:54)
[2016-08-23] MEDS: ARTIFICIAL TEARS-HYPROMELLOSE DROPS 15 ML BTL BOTH EYES SCH ×3 (12:06→21:53)
[2016-08-23] MEDS: ALBUTEROL NEBULIZED 2.5 MG/3 ML INHALATION SCH ×2 (13:14→19:41)
[2016-08-23] MEDS: WARFARIN 3 MG TAB PO SCH (18:07)
--- NOTE | 2016-08-23 19:30 | HP ---
DATE OF ADMISSION: 08/22/2016 CHIEF COMPLAINT: Difficulty breathing. HISTORY OF PRESENT ILLNESS: Mr. Duran is a 66-year-old man with a known history of chronic obstructive pulmonary disease, history of aortic valve replacement with a bioprosthetic valve, chronic stable descending aortic dissection being followed at [facility], hyperlipidemia, hypertension, deep venous thrombosis and pulmonary hypertension who was recently discharged from the hospital after being treated for acute CHF exacerbation, came back to the hospital with complaints of short of breath for the past 2 days. Patient does have subjective fevers at home and denies any cough or worsening sputum production. Patient was found to have his chest x-ray evidence of right mid lung infiltrate. The patient does have elevated lactic acidosis on admission. Patient is currently admitted to the hospital in ICU. Patient currently being maintained on IV steroids and breathing treatments and antibiotics. Pulmonary is following this patient. REVIEW OF SYSTEMS: CONSTITUTIONAL: Patient does have fever and chills. No weakness, malaise. RESPIRATORY: Patient does have cough. No sputum production and short of breath. CARDIOVASCULAR: No chest pain. Patient does have chest heaviness. Patient does have leg swelling and no abdominal pain. No PND. ABDOMEN: No nausea, vomiting or abdominal pain. No diarrhea. No constipation. GENITOURINARY: Negative. ENDOCRINE: Negative. PSYCHIATRY: Negative. SKIN: Negative. MUSCULOSKELETAL: Negative. All other 14 point review of systems negative except as above. PAST MEDICAL HISTORY: 1. Atrial fibrillation/atrial flutter. 2. Coronary artery disease. 3. Chest pain/angina. 4. History of deep venous thrombosis. 5. Aortic valve replacement with bioprosthetic valve. 6. Chronic stable descending aortic dissection being monitored at [facility]. 7. Moderate pulmonary hypertension. 8. Prostate cancer with history of prostatectomy. 9. DVT right lower extremity. 10. Macular degeneration. 11. Hepatitis C. 12. Chronic tinnitus in both eyes. PAST SURGICAL HISTORY: 1. Aortic valve replacement, cardiac catheterization. 2. Hernia repair. 3. Shrapnel removed from right shoulder. 4. Blood clot removed from right lower leg. 5. Prostatectomy. 6. Right inguinal hernia repair. 7. Bilateral knee arthroscopies. 8. Colonoscopy, benign polypectomy. 9. Right leg vein stripping. 10. Two neck injuries for war wounds. SOCIAL HISTORY: Patient is currently an everyday smoker, was a smoker of a pack and a half per day, recently trying to quit. Does drink alcohol daily about 3 drinks per day. Denied any marijuana. Denied any drugs or IVDU. FAMILY HISTORY: Mother has diabetes mellitus, father had congestive heart failure. Home medications include: 1. Amiodarone. 2. Aspirin. 3. Cardizem. 4. Metoprolol. 5. Potassium chloride. 6. Zonegran. 7. Symbicort. 8. Brimonidine tartrate. 9. Alphagan eye drops. 10. Thiamine. 11. Artificial tears. 12. Lipitor. 13. Ferrous sulfate. 14. Mirapex. 15. Vitamin ( ) Ocuvite with lutein tablet. 16. Albuterol inhaler. 17. Multivitamins. 18. Tiotropium. 19. Lyrica. 20. Warfarin. 21. Prednisone, previous prednisone taper. ALLERGIES: No known drug allergies. A 66-year-old male lying in bed. Awake, alert, oriented, x3. He appears to be in mild distress due to short of breath. VITALS: Blood pressure is 118/57, pulse is 74, respirations 18, temperature afebrile, pulse ox 94% on 3 liters nasal cannula. HEENT: Atraumatic, normocephalic. Neck is supple. No JVD and CVS: S1, S2 heard. The patient does have systolic murmur, no gallop, no rub. LUNGS: Bilateral air entry, expiratory wheezing positive. Nonlabored breathing. ABDOMEN: Soft, nontender. Bowel sounds are present. 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 No focal deficit. EXTREMITIES: Bilateral 2+ edema. Pulses palpable bilaterally. No clubbing or cyanosis. PSYCHIATRIC: Cooperative. LABORATORY DATA: WBC 19.1 mg, hemoglobin 12.0, platelets 183, sodium 145, potassium 3.9, chloride 105, bicarb is 31, BUN 20, creatinine 0.8, lactic acid 2.6, came out to 1.3, liver enzymes slightly elevated and NT-proBNP is 1870 and albumin 4.4. UA negative for infection and Influenza A and B PCR positive. CHEST X-RAY: Correlate for pulmonary venous hypertension and interstitial edema. EKG atrial fibrillation. IMPRESSION: 1. Acute on chronic congestive heart failure with diastolic dysfunction. Patient does have ( ) and elevated BNP on admission. 2. Acute exacerbation of chronic obstructive pulmonary disease. 3. Sepsis secondary to right midlung infiltrate or pneumonia. 4. Lactic acidosis, improved. 5. Significant leukocytosis. 6. Gram-positive cocci in chains and bacteremia awaiting final culture report. 7. Moderate pulmonary hypertension. 8. History of bioprosthetic aortic valve replacement. 9. Chronic atrial fibrillation on anticoagulation with warfarin. 10. History of stable descending aortic dissection stable as per recent CT September 2015. 11. Nicotine addiction ongoing. 12. Hypertension. 13. Hyperlipidemia. 14. History of aortic valve rupture. DISCUSSION AND PLAN: 66-year-old male with known history of multiple medical problems and comorbid conditions admitted to the hospital with difficulty breathing and fever and chest condition and heaviness. We will continue the antibiotics in the form of levofloxacin and Zosyn and continue IV steroids. Continue the breathing treatments and continue the home medications Further recommendations based on the clinical course. Prognosis guarded.
[2016-08-23] MEDS: SYMBICORT 160-4.5 MCG INHALER INHALATION SCH (19:41)
[2016-08-23] MEDS ORDERED: HYDROcodone/APAP 5-325MG 1 EACH TAB PO PRN (21:49)
[2016-08-23] MEDS: ATORVASTATIN 40 MG TAB PO SCH (21:53)
[2016-08-23] MEDS: PRAMIPEXOLE 0.25 MG TAB PO SCH (21:53)
[2016-08-23] MEDS: SODIUM CHLORIDE 0.9% 1,000 ML IV SCH (21:54)
[2016-08-23] MEDS: LEVOFLOXACIN 750MG-D5W PMX 750 MG in DEXTROSE/WATER 1 150ML.BAG IVPB SCH (21:54)
[2016-08-24] MEDS: HYDROcodone/APAP 5-325MG 1 EACH TAB PO PRN ×2 (00:51→15:59)
[2016-08-24] MEDS: PIPERACILLIN-TAZOBACTAM 3.375 GM in DEXTROSE/WATER 1 50ML.BAG IVPB SCH ×3 (00:51→16:00)
[2016-08-24] MEDS: ALBUTEROL NEBULIZED 2.5 MG/3 ML INHALATION SCH ×4 (01:27→19:02)
[2016-08-24] MEDS: SYMBICORT 160-4.5 MCG INHALER INHALATION SCH ×2 (07:28→19:02)
[2016-08-24 08:39] LABS: Anisocytosis Slight; Basophils % (A) 0 %; CH 27.3; CHCM 30.2; Eosinophils # (A) 0.1 k/uL (0-0.7); Eosinophils % (A) 0 %; HCT 40.1 % (39.0-53.0); HDW 2.86; HGB 11.7 gm/dL (13.0-17.5); Hypochromasia Marked; Luc # (Auto) 0.07; Luc % (Auto) 1; Lymphocytes % (A) 6 %; MCH 26.5 pg (25.0-35.0); MCHC 29.1 g/dL (31.0-37.0); MCV 91.1 fL (80.0-100.0); Mean Platelet Volume 8.3; Monocytes # (A) 0.8 k/uL (0-1.0); Monocytes % (A) 5 %; Neutrophils # (A) 14.4 k/uL (1.3-7.7); Neutrophils % (A) 88 %; RDW 16.2 % (11.5-15.5); WBC 16.3 k/uL (3.8-10.6); WBC (Perox) 16.14
[2016-08-24] MEDS: ARTIFICIAL TEARS-HYPROMELLOSE DROPS 15 ML BTL BOTH EYES SCH ×4 (08:44→20:23)
[2016-08-24] MEDS: PANTOPRAZOLE 40 MG TABLET PO SCH (08:44)
[2016-08-24] MEDS: AMIODARONE 200 MG TAB PO SCH ×2 (08:44→20:21)
[2016-08-24] MEDS: METOPROLOL TARTRATE 50 MG TAB PO SCH ×2 (08:45→20:21)
[2016-08-24] MEDS: POTASSIUM CHLORIDE ER 20 MEQ TAB.ER PO SCH (08:45)
[2016-08-24] MEDS: BRIMONIDINE TARTRATE 0.2% DROPS 5 ML BTL BOTH EYES SCH ×2 (08:45→20:22)
[2016-08-24] MEDS: FUROSEMIDE 40 MG TAB PO SCH ×2 (08:45→20:21)
[2016-08-24] MEDS: predniSONE 5 MG TAB PO SCH (08:45)
[2016-08-24] MEDS: DILTIAZEM CD 240 MG CAP.ER.24H PO SCH (08:45)
[2016-08-24] MEDS: PREGABALIN 50 MG CAP PO SCH ×2 (08:46→20:21)
[2016-08-24] MEDS: ZONISAMIDE 25 MG CAP PO SCH ×2 (08:46→20:21)
[2016-08-24] MEDS: ASPIRIN 81 MG CHEW PO SCH (08:46)
[2016-08-24] MEDS: THIAMINE 100 MG TAB PO SCH (08:46)
--- NOTE | 2016-08-24 11:01 | P.CRDCN ---
History of Present Illness Consult date: 08/24/16 History of present illness: This is a 66-year-old gentleman with history of severe COPD, chronic atrial fibrillation with prior aortic valve replacement and also chronic aortic dissection being monitored and followed by Dr. Pascual at [facility]. He still follows with the doctors at [facility] and was seen in a month ago. Patient apparently had a computed tomography scan which showed stable findings. He was admitted to this hospital on August 11 with complaints of increasing cough and shortness of breath and pedal edema. Appeared to be mostly COPD and cor pulmonale. He doesn't have any history of previous myocardial infarction or coronary artery disease and he is readmitted now to the hospital with increasing swelling of the legs and shortness of breath. Patient is seen by pulmonology and felt that patient has exacerbation of COPD and possible pneumonia. He is feeling better today. His EKG showed atrial fibrillation with controlled ventricular response. He seemed to be diuresing well with IV diuretics. We'll continue with current medical therapy. Further recommendations depend upon the clinical course. On admission patient had a white count out of 22,000. His proBNP level was 1870. Echocardiogram done on recent admission showed normal LV function. The dilation of the right ventricle on that study with paradoxical motion of the septum. Review of Systems As per the chart Past Medical History Past Medical History: Atrial Fibrillation, Atrial Flutter, Coronary Artery Disease (CAD), Cancer, Chest Pain / Angina, COPD, Deep Vein Thrombosis (DVT), Eye Disorder, GERD/Reflux, Hyperlipidemia, Hypertension Additional Past Medical History / Comment(s): Aortic valve replacement with a bioprosthetic valve, chronic stable aortic dissection as described in the HPI being monitored at [facility] vascular surgery department, chronic atrial fibrillation, moderate degree of pulmonary hypertension based on previous echocardiograms, COPD, previous pneumonia 2008 and 2014, prostate cancer with prostatectomy, DVT R lower leg, macular degeneration , hepatitis C viral infection, left arm fracture, chronic 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 Past Anesthesia/Blood Transfusion Reactions: No Reported Reaction Past Psychological History: No Psychological Hx Reported Smoking Status: Current every day smoker Past Alcohol Use History: Daily Additional Past Alcohol Use History / Comment(s): Patient was a smoker pack and a half per day and is recently trying to quit. He denies any medical marijuana , marijuana or street drug use. He does drink alcohol daily- about 3 liquor drinks per day. 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 one month ago. 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 Father Family Medical History: Congestive Heart Failure (CHF) Additional Family Medical History / Comment(s): Father at age 91 yrs. Medications and Allergies Home Medications Medication Instructions Recorded Confirmed Type Amiodarone HCl [Cordarone] 200 mg PO BID 08/23/14 08/22/16 History Aspirin 81 mg PO DAILY 08/23/14 08/22/16 History Diltiazem HCl [Diltiazem ER] 240 mg PO DAILY 08/23/14 08/22/16 History Metoprolol Tartrate [Lopressor] 100 mg PO BID 08/23/14 08/22/16 History Potassium Chloride [Klor-Con 20] 20 meq PO DAILY 08/23/14 08/22/16 History Zonisamide [Zonegran] 50 mg PO BID 04/19/15 08/22/16 History Budesonide-Formot 160-4.5 Mcg 2 puff INHALATION RT-BID 10/07/15 08/22/16 History [Symbicort 160-4.5 Mcg Inhaler] Brimonidine Tartrate [Alphagan P 1 drop BOTH EYES BID 11/18/15 08/22/16 History 0.2% Ophth Soln] Thiamine [Vitamin B-1] 100 mg PO DAILY 11/18/15 08/22/16 History Artificial Tears-Hypromellose 1 drop BOTH EYES QID 03/15/16 08/22/16 History [Artificial Tear Drops] Atorvastatin [Lipitor] 40 mg PO HS 03/15/16 08/22/16 History Ferrous Sulfate [Iron (65 MG 325 mg PO DAILY 03/15/16 08/22/16 History Elemental)] Pramipexole [Mirapex] 0.25 mg PO HS 03/15/16 08/22/16 History Vit A,C & E/Lutein/Minerals 1 tab PO DAILY 03/15/16 08/22/16 History [Ocuvite with Lutein Tablet] Albuterol Inhaler [Ventolin Hfa 1 puff INHALATION RT-Q6H PRN 03/19/16 08/22/16 History Inhaler] Multivitamins, Thera [Multivitamin] 1 tab PO DAILY 03/19/16 08/22/16 History Tiotropium 18 Mcg/Puff [Spiriva] 1 cap INHALATION RT-DAILY 03/19/16 08/22/16 History Pregabalin [Lyrica] 50 mg PO BID 08/11/16 08/22/16 History Warfarin [Coumadin] 4 mg PO SUTUTHSA 08/11/16 08/22/16 History Warfarin [Coumadin] 6 mg PO MOWEFR 08/11/16 08/22/16 History predniSONE See Taper PO DAILY 08/22/16 08/22/16 History Allergies Allergy/AdvReac Type Severity Reaction Status Date / Time No Known Allergies Allergy Verified 08/22/16 18:10 Physical Exam Vitals: Vital Signs Temp Pulse Pulse Resp BP BP Pulse Ox 08/24/16 08:00 20 08/24/16 07:40 64 08/24/16 07:28 64 93 L 08/24/16 07:00 97 F L 74 20 147/77 99 08/24/16 01:40 68 08/24/16 01:28 68 08/23/16 22:48 97.6 F 08/23/16 21:52 69 20 150/65 95 08/23/16 19:57 72 08/23/16 19:41 70 08/23/16 15:00 98.1 F 69 20 120/57 94 L 08/23/16 14:45 65 08/23/16 14:30 70 08/23/16 14:15 75 08/23/16 14:00 67 08/23/16 13:45 79 08/23/16 13:30 83 08/23/16 13:27 68 08/23/16 13:15 67 08/23/16 13:14 67 08/23/16 13:00 77 08/23/16 12:45 72 21 08/23/16 12:30 73 18 08/23/16 12:00 82 36 H 08/23/16 11:30 81 24 08/23/16 11:00 98.8 F 75 21 118/57 94 L Intake and Output 08/23/16 08/24/16 08/24/16 22:59 06:59 14:59 Intake Total 510 Output Total 900 Balance -390 Intake: IV 260 Levofloxacin 750Mg-D5w 150 Pmx 750 mg In Dextrose/ Water 1 150ml.bag @ 100 mls/hr IVPB Q24H [facility] Rx#: [id number] Piperacillin-Tazobactam 3 50 .375 gm In Dextrose/Water 1 50ml.bag @ 12.5 mls/hr IVPB Q8HR [facility] Rx#: [id number] Sodium Chloride 0.9% 1, 60 000 ml @ 20 mls/hr IV . Q24H [facility] Rx#:[id number] Oral 250 Output: Urine 900 Other: Voiding Method Toilet Toilet Urinal Urinal # Voids 1 Weight 103 kg GENERAL EXAM: Patient is alert and oriented and doesn't appear to be in any acute distress HEENT: Normocephalic. Normal reaction of pupils, equal size, normal range of extraocular motion. No erythema or exudates in the throat. NECK: No masses, no nuchal rigidity. CHEST: No chest wall deformity. LUNGS: Few scattered rhonchi and wheezing. HEART: S1 and S2 normal with no audible mumurs or gallops. Regular rhythm, femorals equal on both sides.. ABDOMEN: No hepatosplenomegaly, normal bowel sounds, no guarding or rigidity. SKIN: No rashes CENTRAL NERVOUS SYSTEM: No focal deficits. EXTREMITIES: Resolving edema. Results 08/24/16 07:46 08/23/16 03:18 CBC 08/24/16 Range/Units 07:46 WBC 16.3 H (3.8-10.6) k/uL RBC 4.40 (4.30-5.90) m/uL Hgb 11.7 L (13.0-17.5) gm/dL Hct 40.1 (39.0-53.0) % Plt Count 205 (150-450) k/uL Current Medications Generic Name Dose Route Start Last Admin Trade Name Freq PRN Reason Stop Dose Admin Acetaminophen/Hydrocodone Bitart 1 each 08/23/16 21:49 08/24/16 00:51 Niss[place] 5-325 PO 1 each Q6HR PRN Administration Pain Scale 1 to 5 Acetaminophen/Hydrocodone Bitart 2 each 08/23/16 21:49 Niss[place] 5-325 PO Q6HR PRN Pain Scale 6 to 10 Albuterol Sulfate 2.5 mg 08/23/16 10:37 Ventolin Nebulized INHALATION RT-Q6H PRN Shortness Of Breath Albuterol Sulfate 2.5 mg 08/23/16 14:00 08/24/16 07:28 Ventolin Nebulized INHALATION 2.5 mg RT-Q6H [facility] Administration Amiodarone HCl 200 mg 08/23/16 10:45 08/24/16 08:44 Cordarone PO 200 mg BID [facility] Administration Artificial Tears 1 drops 08/23/16 13:00 08/24/16 08:44 Artificial Tear Drops BOTH EYES Not Given QID [facility] Aspirin 81 mg 08/23/16 10:45 08/24/16 08:46 Aspirin PO 81 mg DAILY [facility] Administration Atorvastatin Calcium 40 mg 08/23/16 21:00 08/23/16 21:53 Lipitor PO 40 mg HS [facility]LA Administration Brimonidine Tartrate 1 drops 08/23/16 10:45 08/24/16 08:45 Alphagan P 0.2% Ophth Soln BOTH EYES Not Given BID [facility] Budesonide/Formoterol Fumarate 2 puff 08/23/16 20:00 08/24/16 07:28 Symbicort 160-4.5 Mcg Inhaler INHALATION 2 puff RT-BID [facility] Administration Diltiazem HCl 240 mg 08/23/16 10:45 08/24/16 08:45 Cardizem Cd PO 240 mg DAILY [facility] Administration Ferrous Sulfate 325 mg 08/23/16 12:00 08/23/16 12:03 Feosol PO 325 mg DAILY@1200 [facility] Administration Folic Acid 1 mg 08/23/16 12:00 08/23/16 12:05 Folic Acid PO 1 mg DAILY@1200 [facility] Administration Furosemide 40 mg 08/23/16 10:45 08/24/16 08:45 Lasix PO 40 mg BID J[facility]LA Administration Levofloxacin 750 mg/ IV 150 mls @ 100 mls/hr 08/23/16 19:16 08/23/16 21:54 Solution IVPB 09/04/16 19:17 100 mls/hr Q24H [facility] Administration Piperacillin/Tazobactam/ 50 mls @ 12.5 mls/hr 08/23/16 00:00 08/24/16 08:44 Dextrose 3.375 gm/ IV Solution IVPB 09/02/16 00:01 12.5 mls/hr Q8HR [facility] Administration Sodium Chloride 1,000 mls @ 20 mls/hr 08/22/16 20:30 08/23/16 21:54 Saline 0.9% IV 20 mls/hr .Q24H [facility] Administration Metoprolol Tartrate 100 mg 08/23/16 10:45 08/24/16 08:45 Lopressor PO 100 mg BID [facility] Administration Miscellaneous Information 1 each 08/22/16 19:15 Pneumonia Protocol Utilized PO ONCE PRN Per Protocol Miscellaneous Information 1 each 08/23/16 06:50 Potassium Per Protocol MISCELLANE DAILY PRN Per Protocol Protocol Multivitamins 1 each 08/23/16 12:00 08/23/16 12:03 Theragran PO 1 each DAILY@1200 [facility] Administration Multivitamins/Minerals 1 each 08/23/16 12:00 08/23/16 12:06 Ivite PO 1 each DAILY@1200 [facility] Administration Naloxone HCl 0.2 mg 08/22/16 20:25 Narcan IV Q2M PRN Opioid Reversal Pantoprazole Sodium 40 mg 08/23/16 10:45 08/24/16 08:44 Protonix PO 40 mg [id number] [facility] Administration Potassium Chloride 20 meq 08/23/16 10:45 08/24/16 08:45 K-Dur 20 PO 20 meq DAILY [facility] Administration Pramipexole Dihydrochloride 0.25 mg 08/23/16 21:00 08/23/16 21:53 Mirapex PO 0.25 mg HS [facility] Administration Prednisone 5 mg 08/23/16 10:45 08/24/16 08:45 PO 5 mg DAILY [facility] Administration Pregabalin 50 mg 08/23/16 10:45 08/24/16 08:46 Lyrica PO 50 mg BID [facility] Administration Ropinirole HCl 0.5 mg 08/23/16 21:00 08/23/16 21:53 Requip PO 0.5 mg HS [facility] Administration Thiamine HCl 100 mg 08/23/16 10:45 08/24/16 08:46 Vitamin B-1 PO 100 mg DAILY [facility] Administration Tiotropium [place] 1 puff 08/24/16 08:00 Spiriva INHALATION RT-DAILY [facility] Warfarin Sodium 4 mg 08/24/16 18:00 Coumadin PO SUTUTHSA [facility] Warfarin Sodium 6 mg 08/23/16 18:00 08/23/16 18:07 Coumadin PO 6 mg MOWEFR [facility] Administration Zonisamide 50 mg 08/23/16 10:45 08/24/16 08:46 Zonegran PO 50 mg BID [facility] Administration Intake and Output 08/23/16 08/24/16 08/24/16 22:59 06:59 14:59 Intake Total 510 Output Total 900 Balance -390 Intake: IV 260 Levofloxacin 750Mg-D5w 150 Pmx 750 mg In Dextrose/ Water 1 150ml.bag @ 100 mls/hr IVPB Q24H [facility] Rx#: [id number] Piperacillin-Tazobactam 3 50 .375 gm In Dextrose/Water 1 50ml.bag @ 12.5 mls/hr IVPB Q8HR [facility] Rx#: [id number] Sodium Chloride 0.9% 1, 60 000 ml @ 20 mls/hr IV . Q24H [facility] Rx#:[id number] Oral 250 Output: Urine 900 Other: Voiding Method Toilet Toilet Urinal Urinal # Voids 1 Weight 103 kg 08/24/16 07:46 08/23/16 03:18 EKG Interpretations (text) Showed evidence of atrial fibrillation with a rapid ventricular response and nonspecific ST-T abnormalities Assessment and Plan (1) Pneumonia Status: Acute (2) Respiratory failure Status: Acute (3) Acute exacerbation of chronic obstructive pulmonary disease (COPD) Status: Acute (4) Aortic aneurysm Status: Acute (5) Atrial fibrillation Status: Acute (6) Cor pulmonale Status: Acute Plan: The findings are most consistent with pneumonia and exacerbation of COPD and cor pulmonale area and echocardiogram from previous study showed normal LV function with the proximal most of the septum. Patient seemed to be responding to current therapy. Patient is currently on a combination of amiodarone 200 mg by mouth twice a day. Metoprolol 100 mg by mouth twice a day the IVY is him to 40 mg daily Lasix 40 mg by mouth twice a day aspirin along with antibiotics. Patient will continue current medical therapy.
--- NOTE | 2016-08-24 11:57 | P.PN ---
Subjective Principal diagnosis: This is a very pleasant 66-year-old gentleman with a known history of coronary artery disease, atrial fibrillation/flutter anticoagulated with warfarin, prostate cancer, chronic obstructive pulmonary disease, pulmonary hypertension, diastolic congestive heart failure. He presented here on 08/22/2016 with complaints of increasing shortness of breath, cough and congestion. His chest x -ray did not reveal any significant cardiopulmonary abnormalities. There is some question of a right midlung infiltrate. He is on both diuresed and is on bronchodilators and antibiotics. He is seen again today in follow-up on the regular medical floor. He is awake and alert in no acute distress. He states he is breathing easier today as compared to yesterday. He is maintaining good O2 saturations in the mid 90s on 2 L/m per nasal cannula. He is currently afebrile. Leukocytosis is improving. His blood culture is revealing a group D enterococcus. Objective - Vital Signs Vital signs: Vital Signs Temp 97 F L 08/24/16 07:00 Pulse 64 08/24/16 07:40 Resp 20 08/24/16 08:00 BP 147/77 08/24/16 07:00 Pulse Ox 93 L 08/24/16 07:28 Intake & Output 08/23/16 08/24/16 08/24/16 18:59 06:59 18:59 Intake Total 180 510 Output Total 700 900 Balance -520 -390 Weight 104.6 kg 103 kg Intake: IV 180 260 Levofloxacin 750Mg-D5w 150 Pmx 750 mg In Dextrose/ Water 1 150ml.bag @ 100 mls/hr IVPB Q24H [facility] Rx#: [id number] Piperacillin-Tazobactam 3 50 .375 gm In Dextrose/Water 1 50ml.bag @ 12.5 mls/hr IVPB Q8HR [facility] Rx#: [id number] Sodium Chloride 0.9% 1, 180 60 000 ml @ 20 mls/hr IV . Q24H [facility] Rx#:[id number] Oral 250 Output: Urine 700 900 Other: Voiding Method Toilet Toilet Urinal Urinal # Voids 1 - Exam GENERAL EXAM: Alert, active, comfortable in no apparent distress. HEAD: Normocephalic. EYES: Normal reaction of pupils, equal size. NOSE: Clear with pink turbinates. THROAT: No erythema or exudates. NECK: No masses, no JVD. CHEST: No chest wall deformity. LUNGS: Equal air entry with no crackles, wheeze, rhonchi or dullness. Diminished. CVS: S1 and S2 normal with no audible mumurs, regular rhythm. ABDOMEN: No hepatosplenomegaly, normal bowel sounds, no guarding or rigidity. Extremities: There is trace peripheral edema. No clubbing, no cyanosis. Peripheral pulses are intact. - Labs CBC & Chem 7: 08/24/16 07:46 08/23/16 03:18 Labs: Abnormal Lab Results - Last 24 Hours (Table) 08/24/16 Range/Units 07:46 WBC 16.3 H (3.8-10.6) k/uL Hgb 11.7 L (13.0-17.5) gm/dL MCHC 29.1 L (31.0-37.0) g/dL RDW 16.2 H (11.5-15.5) % Neutrophils # 14.4 H (1.3-7.7) k/uL Assessment and Plan Plan: Impression: #1 Acute exacerbation of chronic diastolic congestive heart failure. #2 Acute exacerbation of chronic obstructive pulmonary disease. Complicated by a right midlung infiltrate. #3 Moderate pulmonary hypertension, RVSP 52.34 mmHg with severely enlarged right ventricle. #4 Mild aortic regurgitation. Status post aortic valve replacement. #5 Stable dissection of the descending aorta as reviewed on most recent computed tomography scan in September 2015. #6 Chronic and ongoing nicotine addiction. #7 Hypertension. #8 Hyperlipidemia. #9 Chronic atrial fibrillation, anticoagulated with warfarin. On amiodarone 200 mg twice a day. #10 Bacteremia secondary to group D enterococcus. Plan: The patient was seen and evaluated by Dr. Ramey. His chest x-ray and labs were reviewed. We'll go ahead and continue with his current medications including bronchodilators, Symbicort and antibiotics in the form of Levaquin and Zosyn. We'll also give a one-time dose of IV vancomycin based on his group D enterococcus blood culture results. Final sensitivity is pending. We'll also continue with the diuretics. Cardiology is on the case as well. We will increase his activity as tolerated. We'll continue to follow make further recommendations based on his clinical status.
[2016-08-24] MEDS ORDERED: VANCOMYCIN 1,750 MG in SODIUM CHLORIDE 0.9% 250 ML IVPB ONE (13:00)
[2016-08-24] MEDS: TIOTROPIUM 18 MCG/PUFF INHALER INHALATION SCH (13:30)
[2016-08-24] MEDS: MULTIVITAMINS, THERA 1 EACH TAB PO SCH (14:28)
[2016-08-24] MEDS: DOCUSATE 100 MG CAP PO SCH ×2 (14:28→20:22)
[2016-08-24] MEDS: VIT A,C & E-LUTEIN-MINERALS 1 EACH TAB PO SCH (14:29)
[2016-08-24] MEDS: FERROUS SULFATE 325 MG TAB PO SCH (14:29)
[2016-08-24] MEDS: FOLIC ACID 1 MG TAB PO SCH (14:29)
[2016-08-24] MEDS: WARFARIN 2 MG TAB PO SCH ×2 (17:53→20:21)
[2016-08-24 20:02] LABS: INR 1.8 (<1.1); Prothrombin Time 17.4 sec (9.0-12.0)
[2016-08-24] MEDS: PRAMIPEXOLE 0.25 MG TAB PO SCH (20:21)
[2016-08-24] MEDS: LEVOFLOXACIN 750MG-D5W PMX 750 MG in DEXTROSE/WATER 1 150ML.BAG IVPB SCH (20:21)
[2016-08-24] MEDS: ATORVASTATIN 40 MG TAB PO SCH (20:22)
[2016-08-24] MEDS: SODIUM CHLORIDE 0.9% 1,000 ML IV SCH (20:49)
[2016-08-24] MEDS ORDERED: ALBUTEROL NEBULIZED 2.5 MG/3 ML INHALATION PRN (20:55)
[2016-08-25] MEDS: PIPERACILLIN-TAZOBACTAM 3.375 GM in DEXTROSE/WATER 1 50ML.BAG IVPB SCH ×3 (00:39→16:27)
[2016-08-25 07:39] LABS: Basophils % (A) 0 %; CH 26.9; CHCM 29.9; Eosinophils # (A) 0.1 k/uL (0-0.7); Eosinophils % (A) 1 %; HCT 37.7 % (39.0-53.0); HDW 2.73; HGB 11.3 gm/dL (13.0-17.5); Hypochromasia Marked; Luc # (Auto) 0.09; Luc % (Auto) 1; Lymphocytes # (A) 0.8 k/uL (1.0-4.8); Lymphocytes % (A) 7 %; MCH 27.1 pg (25.0-35.0); MCV 90.5 fL (80.0-100.0); Mean Platelet Volume 8.3; Monocytes # (A) 0.6 k/uL (0-1.0); Monocytes % (A) 5 %; Neutrophils # (A) 9.7 k/uL (1.3-7.7); Neutrophils % (A) 86 %; RBC 4.16 m/uL (4.30-5.90); WBC 11.4 k/uL (3.8-10.6); WBC (Perox) 11.69
[2016-08-25 07:52] LABS: Prothrombin Time 19.5 sec (9.0-12.0)
[2016-08-25 08:01] LABS: Anion Gap 9 mmol/L; Blood Urea Nitrogen 22 mg/dL (9-20); Calcium 8.7 mg/dL (8.4-10.2); Carbon Dioxide 33 mmol/L (22-30); Chloride 103 mmol/L (98-107); Glucose 97 mg/dL (74-99); Non-African American GFR(MDRD) >60 (>60 ml/min/1.73 sqM); Potassium 4.1 mmol/L (3.5-5.1); Sodium 145 mmol/L (137-145)
[2016-08-25] MEDS: AMIODARONE 200 MG TAB PO SCH ×2 (08:24→21:45)
[2016-08-25] MEDS: ASPIRIN 81 MG CHEW PO SCH (08:24)
[2016-08-25] MEDS: DILTIAZEM CD 240 MG CAP.ER.24H PO SCH (08:24)
[2016-08-25] MEDS: POTASSIUM CHLORIDE ER 20 MEQ TAB.ER PO SCH (08:26)
[2016-08-25] MEDS: PREGABALIN 50 MG CAP PO SCH ×2 (08:26→21:45)
[2016-08-25] MEDS: predniSONE 5 MG TAB PO SCH (08:26)
[2016-08-25] MEDS: ZONISAMIDE 25 MG CAP PO SCH ×2 (08:26→21:44)
[2016-08-25] MEDS: THIAMINE 100 MG TAB PO SCH (08:28)
[2016-08-25] MEDS: PANTOPRAZOLE 40 MG TABLET PO SCH (08:33)
[2016-08-25] MEDS: DOCUSATE 100 MG CAP PO SCH ×2 (08:34→21:45)
[2016-08-25] MEDS: FUROSEMIDE 40 MG TAB PO SCH ×2 (08:35→22:21)
--- NOTE | 2016-08-25 09:07 | CDI ---
In responding to this query, please exercise your independent professional judgment. The [facility] Coding Staff and Clinical Documentation Specialists appreciate your assistance in clarifying documentation, maintaining compliance with coding guidelines, accurately documenting patients condition and capturing severity of illness. The fact that a question is asked does not imply that any particular answer is desired or expected. Communication forms are a method of clarifying documentation and are not made part of the Legal Health Record. Thank you in advance for your clarification. Last Revision, September 2015 Lindsay Kimbrough [address] [place] [address] Documentation Clarification Form Date: 08/25/2016 8:50:00 AM From: Edyta Hector RN, CCDS Admit Date: 08/22/2016 8:39:00 PM Patient Name: Sylvain Duran Visit Number: [id number] Dr. Sawyer Hopkins The patient presented with the following respiratory symptoms: respiratory distress History/Risk Factors: Moderate Pulmonary HTN, Cor Pulmonale, AVR, a/c diastolic CHF, exacerbation of COPD, Current Sepsis secondary to pneumonia, chronic atrial fib Clinical Indicators: 08/24 Cardiology consult: "Respiratory failure, pneumonia, COPD exacerbation, Cor Pulmonale." Vital signs/Pulse oximetry: On Admission: temp 101.7, HR 100, RR 28 Labored, B/ P 143/89, Spo2 77% on room air Lung/Breathing assessment: 08/23 Pulmonary Consult: "LUNGS: Bilateral end expiratory wheeze, scattered rhonchi, crackles in the posterior bases. Diminished." Treatment: Breathing TX: Duoneb QID and Q 4 HRS PRN Pulse ox per unit protocol BiPap: BiPap 40%, then decreased to 5L nasal cannula O2: 5L Nasal cannula weaning Solumedrol 125mg IVP x1 In your professional opinion, can you please clarify if these findings signify one of the following conditions and also identify if the condition was Present on Admission and/or has been Ruled Out or Resolved? Acuity: o Acute o Chronic o Acute on Chronic Respiratory Status: o Respiratory failure o Respiratory failure with hypercapnia o Respiratory failure with hypoxia o Acute Respiratory Distress o Other Diagnosis, please specify o Unable to determine Please document in your progress notes and discharge summary in order to capture severity of illness and risk of mortality. Include clinical findings that support your diagnosis. FYI: Press F11 to launch patient chart. Place X here if this finding has no clinical significance, is not applicable or if you are not able to provide any additional documentation. MTDD
--- NOTE | 2016-08-25 09:20 | CDI ---
In responding to this query, please exercise your independent professional judgment. The [facility] Coding Staff and Clinical Documentation Specialists appreciate your assistance in clarifying documentation, maintaining compliance with coding guidelines, accurately documenting patients condition and capturing severity of illness. The fact that a question is asked does not imply that any particular answer is desired or expected. Communication forms are a method of clarifying documentation and are not made part of the Legal Health Record. Thank you in advance for your clarification. Last Revision, September 2015 Lindsay Kimbrough [address] [place] [address] Documentation Clarification Form Date: 08/25/2016 9:08:00 AM From: Edyta Hector RN, CCDS Admit Date: 08/22/2016 8:39:00 PM Patient Name: Sylvain Duran Visit Number: [id number] Dr. Hilario Cor Pulmonale is documented in the Cardiology Consult and requires further specificity. History/Risk Factors: COPD, AVR, HTN, Pulmonary HTN, CHF Clinical Indicators: 08/23 Pulmonary Consult: Moderate pulmonary hypertension, RVSP 52.34 mmHg with severely enlarged right ventricle." 08/24 Cardiology Consult: "Cor Pulmonale." Labs: BNP 1870 08/12/16 Echo results: EF 50-55%, paradoxical/dysynergic septal wall motion, RV mildly to moderately enlarged, LA Dilated 08/23 CXR: - Consults: Cardiology, Pulmonary Treatment: Cordarone 200 mg PO BID Cardizem CD 240 mg PO QD Lasix 40 mg PO BID Lopressor 100 mg PO BID In your professional opinion, can you please specify the type of Cor Pulmonale if known? Acute Cor Pulmonale Chronic Cor Pulmonale Unable to determine Other, please specify If known, please specify if Cor Pulmonale is due to: Saddle Pulmonary Embolism Septic Pulmonary Embolism Pulmonary Hypertension Other, please specify Unable to determine Concurrently please document in your progress notes and discharge summary in order to capture severity of illness and risk of mortality. Include clinical findings that support your diagnosis. FYI: Press F11 to launch patient chart Place X here if this finding has no clinical significance, is not applicable or if you are not able to provide any additional documentation. KRISTEN
[2016-08-25] MEDS: ALBUTEROL NEBULIZED 2.5 MG/3 ML INHALATION SCH ×4 (09:22→19:49)
[2016-08-25] MEDS: SYMBICORT 160-4.5 MCG INHALER INHALATION SCH ×2 (09:22→19:49)
[2016-08-25] MEDS: TIOTROPIUM 18 MCG/PUFF INHALER INHALATION SCH (09:23)
--- NOTE | 2016-08-25 09:40 | CDI ---
In responding to this query, please exercise your independent professional judgment. The [facility] Coding Staff and Clinical Documentation Specialists appreciate your assistance in clarifying documentation, maintaining compliance with coding guidelines, accurately documenting patients condition and capturing severity of illness. The fact that a question is asked does not imply that any particular answer is desired or expected. Communication forms are a method of clarifying documentation and are not made part of the Legal Health Record. Thank you in advance for your clarification. Last Revision, June 2015 Lindsay Kimbrough [address] [facility] [place] [address] Documentation Clarification Form Date: 08/25/2016 9:22:00 AM From: Edyta Hector RN, CCDS Admit Date: 08/22/2016 8:39:00 PM Patient Name: Sylvain Duran Visit Number: [id number] Dr. Sawyer Hopkins Pneumonia was documented in your H&P. History/Risk Factors: A/C Diastolic CHF, Acute exacerbation of COPD, moderate pulmonary HTN Recent D/C from hospital for CHF Clinical Indicators: 08/23 H&P: CXR evidence of right midlung infiltrate, elevated lactic acid. V/S on admission: Temp 101.7, HR 100, RR 28 Labored, B/P 143/89, Spo2 77% RA WBC: 22.1/19.1/16.3/11.4 Left shift: 20.4/18.1/14.4/9.7 08/22 CXR: Correlate for possible pulmonary venous HTN and interstitial edema Lung/Breathing assessment 08/23 Pulmonary Consult: "LUNGS: Bilateral end expiratory wheeze, scattered rhonchi, crackles in the posterior bases. Diminished." Treatment: Antibiotics: Levaquin 500 mg IVPB Q 24 hrs, Zosyn 3.375gm IVPB Q 8 hrs, Vanco 1750mg IVPB OT O2: BiPap 40% weaned to 5L nasal cannula, continues to wean O2 Breathing TX: Ventolin QID and Q @ hrs PRN, Symbicort 2 puffs BID In order to capture the severity of condition, please clarify if the condition signifies and you are treating for: Aspiration Pneumonia, identify if: Due to solids or liquids Bacterial Pneumonia, specify causal organism (if known) Gram Negative Pneumonia Due to Strep Due to Staph Due to E. coli Other bacteria (specify) Viral Pneumonia, specify casual organism (if known) Ventilator Associated Pneumonia Healthcare Acquired Pneumonia/Pneumonia, unspecified Unable to determine Link any associated conditions to the pneumonia: Influenza with secondary gram negative pneumonia Sepsis due to pneumonia Acute respiratory failure due to pneumonia Other, please specify Please document in your progress notes and discharge summary in order to capture severity of illness and risk of mortality. Include clinical findings that support your diagnosis. FYI: Press F11 to launch patient chart. Place X here if this finding has no clinical significance, is not applicable or if you are not able to provide any additional documentation. KRISTEN
[2016-08-25] MEDS: BRIMONIDINE TARTRATE 0.2% DROPS 5 ML BTL BOTH EYES SCH ×2 (10:14→21:45)
[2016-08-25] MEDS: ARTIFICIAL TEARS-HYPROMELLOSE DROPS 15 ML BTL BOTH EYES SCH ×4 (10:14→21:46)
[2016-08-25] MEDS: METOPROLOL TARTRATE 50 MG TAB PO SCH ×2 (10:19→21:45)
--- NOTE | 2016-08-25 10:42 | PN ---
Mr. Duran is a 66-year-old male with known history of chronic obstructive pulmonary disease and history of aortic valve replacement with bioprosthetic valve and multiple other medical problems, came to the hospital with complaints of shortness of breath for 2 days. Patient is currently being treated for diastolic congestive heart failure exacerbation and chronic obstructive pulmonary disease exacerbation as well as right mid lung pneumonia. No fever. No chills. Patient breathing ( ) much improved today. Currently being transferred to general medical floor. Pulmonary and cardiology is following the patient. REVIEW OF SYSTEMS: CONSTITUTIONAL: No fever. No chills. RESPIRATORY: No cough or sputum production. No worsening shortness of breath. CARDIOVASCULAR: No chest pain. No short of breath. No leg swelling. ABDOMEN: Soft, nontender. Bowel sounds present. No nausea, vomiting or abdominal pain. NEUROLOGIC: Negative. ENDOCRINE: Negative. PSYCHIATRY: Negative. SKIN: Negative. MUSCULOSKELETAL: All other 14 point review of systems negative except as above. Current medications include: 1. [place] 5/325. 2. Ventolin. 3. Amiodarone. 4. Artificial tears. 5. Aspirin. 6. Atorvastatin. 7. Brimodine. 8. Tartrate ophthalmic solution. 9. Symbicort. 10. Cardizem CD. 11. Docusate. 12. Ferrous sulfate. 13. Folic acid. 14. Lasix. 15. Levofloxacin. 16. Metoprolol. 17. Multivitamins. 18. Potassium protocol. 19. Multivitamins. 20. Zosyn. 21. Mirapex. 22. Lyrica. 23. Requip. 24. Thiamin. 25. Spiriva. 26. Warfarin. PHYSICAL EXAMINATION: A 66-year-old male lying in the bed. Awake, alert, oriented x3. Appears to be in no apparent distress. VITALS: Blood pressure is 132/63, pulse is 72, respirations 20, temperature T-Max 100.2, pulse ox ( ) on 2 L nasal cannula. HEENT: Atraumatic, normocephalic. Neck is supple. No JVD. CVS S1, S2. No murmurs, no rub. No gallop. LUNGS: Bilateral decreased air entry. No wheezing. Nonlabored breathing. ABDOMEN: Soft, nontender. Bowel sounds present. Obese. 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 No focal deficits. EXTREMITIES: Trace edema. Pulses palpable bilaterally. No clubbing or cyanosis. PSYCHIATRIC: Cooperative. LABORATORY DATA: WBC 16.3, hemoglobin 11.7, platelets 205, blood cultures showed group D enterococcus. IMPRESSION: 1. Acute and chronic CHF with diastolic dysfunction. 2. Acute exacerbation of chronic obstructive pulmonary disease. 3. Sepsis secondary to right mid lung infiltrate or pneumonia with lactic acidosis and leukocytosis, leukocytosis improving. 4. Group B enterococcus bacteremia. 5. Moderate pulmonary hypertension. 6. History of bioprosthetic aortic valve replacement. 7. Chronic atrial fibrillation, on anticoagulation with Coumadin. 8. History of stable descending aortic dissection as per CT in September 2015. 9. Ongoing nicotine addiction. 10. Hypertension. 11. Hyperlipidemia. 12. History of aortic valve rupture. 13. FULL CODE. ASSESSMENT AND PLAN: We will continue the current antibiotics in the form of Levofloxacin and Zosyn. Breathing efforts improved now. ( ) improving. We will continue current breathing treatments. Follow-up closely. Pulmonary on board. Further recommendations based on clinical course. Follow-up final culture report. Coumadin monitoring. [facility]
--- NOTE | 2016-08-25 11:00 | XR ---
EXAMINATION TYPE: XR chest 1V DATE OF EXAM: 08/25/2016 10:45 AM HISTORY: Shortness of breath. COMPARISON: 08/23/2016 TECHNIQUE: Single view of the chest is submitted. FINDINGS: Demonstrated are scattered senescent parenchymal change. There is right lower lobe infiltrate. Correlate for pneumonia. The heart is enlarged Hilar and mediastinal structures are within normal limits. Degenerative changes are seen of the dorsal spine. IMPRESSION: 1. There is right lower lobe infiltrate. Correlate for pneumonia.
--- NOTE | 2016-08-25 11:16 | P.PN ---
Subjective Progress note dated 08/25/2016 This patient's doing better. He 66. Admitted back on August 22. Has history of CAD atrial fibrillation/flutter prostate cancer COPD pneumonia pulmonary hypertension diastolic CHF. The patient's overall situation has improved. Much less short of breath. Much less coughing and wheezing. The patient is not bringing up any phlegm at this time. Blood cultures positive for group D enterococcus. He received 1 dose of vancomycin yesterday. We'll await sensitivities. Objective - Vital Signs Vital signs: Vital Signs Temp 99.2 F 08/25/16 07:00 Pulse 75 08/25/16 10:20 Resp 20 08/25/16 07:00 BP 126/55 08/25/16 10:20 Pulse Ox 90 L 08/25/16 07:00 Intake & Output 08/24/16 08/25/16 08/25/16 18:59 06:59 18:59 Intake Total 190 810 Output Total 300 Balance -110 810 Weight 104.5 kg Intake: IV 140 360 Levofloxacin 750Mg-D5w 150 Pmx 750 mg In Dextrose/ Water 1 150ml.bag @ 100 mls/hr IVPB Q24H JAYLA Rx#: [id number] Piperacillin-Tazobactam 3 50 .375 gm In Dextrose/Water 1 50ml.bag @ 12.5 mls/hr IVPB Q8HR JAYLA Rx#: [id number] Sodium Chloride 0.9% 1, 140 160 000 ml @ 20 mls/hr IV . Q24H JAYLA Rx#:[id number] Intake, IV Titration 50 Amount Sodium Chloride 0.9% 1, 50 000 ml @ 20 mls/hr IV . Q24H JAYLA Rx#:[id number] Oral 450 Output: Urine 300 Other: Voiding Method Toilet Toilet Urinal Urinal # Voids 2 - Exam No acute distress, oriented 3. No acute distress. HEENT examination is grossly unremarkable. Mixed membranes are moist. No oral lesions. Neck supple. Full range of motion. No adenopathy. Cardiovascular examination reveals regular rhythm rate. S1-S2 normal. Lungs reveal a few scattered rhonchi. Breath sounds are mostly clear. No wheezes. Abdomen soft bowel sounds are heard. Extremities are intact. - Labs CBC & Chem 7: 08/25/16 07:08 08/25/16 07:08 Labs: Abnormal Lab Results - Last 24 Hours (Table) 08/24/16 08/25/16 08/25/16 Range/Units 19:32 07:08 07:08 WBC 11.4 H (3.8-10.6) k/uL RBC 4.16 L (4.30-5.90) m/uL Hgb 11.3 L (13.0-17.5) gm/dL Hct 37.7 L (39.0-53.0) % MCHC 30.0 L (31.0-37.0) g/dL RDW 16.0 H (11.5-15.5) % Neutrophils # 9.7 H (1.3-7.7) k/uL Lymphocytes # 0.8 L (1.0-4.8) k/uL PT 17.4 H 19.5 H (9.0-12.0) sec Carbon Dioxide (22-30) mmol/L BUN (9-20) mg/dL 08/25/16 Range/Units 07:08 WBC (3.8-10.6) k/uL RBC (4.30-5.90) m/uL Hgb (13.0-17.5) gm/dL Hct (39.0-53.0) % MCHC (31.0-37.0) g/dL RDW (11.5-15.5) % Neutrophils # (1.3-7.7) k/uL Lymphocytes # (1.0-4.8) k/uL PT (9.0-12.0) sec Carbon Dioxide 33 H (22-30) mmol/L BUN 22 H (9-20) mg/dL Assessment and Plan (1) Congestive heart failure (CHF) Status: Acute (2) Pneumonia Status: Acute (3) Respiratory failure Status: Acute (4) Acute exacerbation of chronic obstructive pulmonary disease (COPD) Status: Acute (5) COPD exacerbation Status: Acute (6) Dyspnea Status: Acute Plan: Plan dated 08/25/2016 The patient continues to show improvement from his underlying CHF exacerbation as well as a COPD exacerbation [place] by right-sided pneumonia. We'll await the sensitivities of the group B strep. Additional recommendations suggestions are forthcoming. The patient does have history of pulmonary hypertension aortic insufficiency and a stable dissection of the ascending aorta. Also suffers some both hypertension hyperlipidemia and chronic atrial fibrillation. Labs x-rays and medications are all reviewed. Time with Patient: Less than 30
[2016-08-25] MEDS: MULTIVITAMINS, THERA 1 EACH TAB PO SCH (12:45)
[2016-08-25] MEDS: VIT A,C & E-LUTEIN-MINERALS 1 EACH TAB PO SCH (12:45)
[2016-08-25] MEDS: FERROUS SULFATE 325 MG TAB PO SCH (12:45)
[2016-08-25] MEDS: FOLIC ACID 1 MG TAB PO SCH (12:46)
--- NOTE | 2016-08-25 14:05 | PN ---
Patient is a 66-year-old admitted for respiratory failure secondary to COPD exacerbation. Patient also has cardiomegaly, moderate to severe pulmonary hypertension as well as diastolic dysfunction and heart failure and patient was being treated for all of these and patient still requiring 4 L of oxygen. Will cut down the oxygen today. If his respiratory status improves, patient probably can be discharged tomorrow or day after and patient does have history of atrial fibrillation. Patient is rate controlled at this point of time. Patient is on levofloxacin, will need to watch for INR and patient is also on Zosyn as well. His blood cultures are positive for enterococcus faecalis. Will obtain repeat blood cultures and I cannot rule out aspiration pneumonia, because of the organism that is Enterococcus faecalis and Zosyn will be continued. I do not believe levofloxacin is necessary at this point of time and there in an interaction between levofloxacin and Coumadin and that will be discontinued. REVIEW OF SYSTEMS: GENERAL: Patient is complaining of generalized tiredness and weakness. CARDIOVASCULAR: No chest pain, no orthopnea, no PND, no palpitations. PULMONARY: Denied any shortness of breath. No cough or hemoptysis. GASTROINTESTINAL: No diarrhea, nausea or vomiting. No abdominal pain. Normoactive bowel sounds. NEUROLOGIC: No headaches, no weakness, no numbness. Medications were reviewed. PHYSICAL EXAMINATION: VITAL SIGNS: Temperature 99.2, pulse of 75, respiratory rate of 20, blood pressure is 126/55, saturating at 98% on 3 L of O2 nasal cannula. GENERAL: Patient appears to be tired. HEENT: Pupils are round and equally reacting to light. EOMI. No scleral icterus. No conjunctival pallor. Normocephalic, atraumatic. No pharyngeal erythema. No thyromegaly. CARDIOVASCULAR: S1 and S2 present. No murmurs, rubs, or gallops. PULMONARY: Chest is clear to auscultation, no wheezing or crackles. ABDOMEN: Soft, nontender, nondistended, normoactive bowel sounds. No palpable organomegaly. MUSCULOSKELETAL: No joint swelling or deformity. EXTREMITIES: No cyanosis, clubbing, or pedal edema. NEUROLOGICAL: Gross neurological examination did not reveal any focal deficits. SKIN: No rashes. LABORATORY DATA: CBC, BMP abnormal for elevated WBC count of 11,400. ASSESSMENT AND PLAN: 1. Acute hypoxic respiratory failure secondary to right middle lobe pneumonia. I cannot completely rule out aspiration pneumonia. Patient has enterococcus faecalis septicemia or bacteremia. 2. Sepsis secondary to enterococcus faecalis, which is causing pneumonia probably. Zosyn will be continued and levofloxacin will be discontinued. 3. Acute on chronic hypercapnic respiratory failure, secondary to chronic obstructive pulmonary disease exacerbation. 4. Regarding enterococcus bacteremia, I will repeat blood cultures today and tomorrow. 5. Moderate pulmonary hypertension. 6. Chronic diastolic dysfunction with exacerbation on admission which improved at this point of time. 7. Coronary artery disease with previous history of coronary artery bypass graft. 8. Deep venous thrombosis in the past for which patient is on anticoagulation. 9. Atrial fibrillation, rate controlled. INR is therapeutic, repeat INR tomorrow. Continue the same dose of Coumadin. 10. History of hepatitis C. Continue with systemic steroids for chronic obstructive pulmonary disease exacerbation as well. Patient did go home and smoke after his discharge from the hospital.
[2016-08-25] MEDS: WARFARIN 3 MG TAB PO SCH (17:49)
[2016-08-25] MEDS ORDERED: LEVOFLOXACIN 750 MG TAB PO SCH ×2 (18:00→19:00)
[2016-08-25] MEDS: PRAMIPEXOLE 0.25 MG TAB PO SCH (21:45)
[2016-08-25] MEDS: ATORVASTATIN 40 MG TAB PO SCH (21:45)
[2016-08-25] MEDS: SODIUM CHLORIDE 0.9% 1,000 ML IV SCH (21:52)
[2016-08-26] MEDS: PIPERACILLIN-TAZOBACTAM 3.375 GM in DEXTROSE/WATER 1 50ML.BAG IVPB SCH ×3 (00:34→16:29)
[2016-08-26] MEDS: PANTOPRAZOLE 40 MG TABLET PO SCH (07:41)
[2016-08-26] MEDS: ARTIFICIAL TEARS-HYPROMELLOSE DROPS 15 ML BTL BOTH EYES SCH ×4 (07:46→20:46)
[2016-08-26] MEDS: AMIODARONE 200 MG TAB PO SCH ×2 (07:46→20:45)
[2016-08-26] MEDS: ASPIRIN 81 MG CHEW PO SCH (07:47)
[2016-08-26] MEDS: DILTIAZEM CD 240 MG CAP.ER.24H PO SCH (07:47)
[2016-08-26] MEDS: DOCUSATE 100 MG CAP PO SCH ×2 (07:47→20:46)
[2016-08-26] MEDS: FERROUS SULFATE 325 MG TAB PO SCH (07:47)
[2016-08-26] MEDS: FOLIC ACID 1 MG TAB PO SCH (07:48)
[2016-08-26] MEDS: METOPROLOL TARTRATE 50 MG TAB PO SCH ×2 (07:48→20:45)
[2016-08-26] MEDS: FUROSEMIDE 40 MG TAB PO SCH ×2 (07:48→20:46)
[2016-08-26] MEDS: PREGABALIN 50 MG CAP PO SCH ×2 (07:48→20:45)
[2016-08-26] MEDS: ZONISAMIDE 25 MG CAP PO SCH ×2 (07:48→20:45)
[2016-08-26] MEDS: VIT A,C & E-LUTEIN-MINERALS 1 EACH TAB PO SCH (07:49)
[2016-08-26] MEDS: predniSONE 5 MG TAB PO SCH (07:49)
[2016-08-26] MEDS: POTASSIUM CHLORIDE ER 20 MEQ TAB.ER PO SCH (07:49)
[2016-08-26] MEDS: MULTIVITAMINS, THERA 1 EACH TAB PO SCH (07:49)
[2016-08-26] MEDS: THIAMINE 100 MG TAB PO SCH (07:50)
[2016-08-26] MEDS: ALBUTEROL NEBULIZED 2.5 MG/3 ML INHALATION SCH ×4 (08:25→21:24)
[2016-08-26] MEDS: TIOTROPIUM 18 MCG/PUFF INHALER INHALATION SCH (08:25)
[2016-08-26] MEDS: SYMBICORT 160-4.5 MCG INHALER INHALATION SCH ×2 (08:25→21:24)
[2016-08-26 09:16] LABS: CH 26.9; CHCM 29.6; HCT 38.1 % (39.0-53.0); HGB 11.5 gm/dL (13.0-17.5); Hypochromasia Marked; MCH 27.5 pg (25.0-35.0); MCHC 30.1 g/dL (31.0-37.0); MCV 91.4 fL (80.0-100.0); Mean Platelet Volume 7.6; RBC 4.16 m/uL (4.30-5.90); RDW 15.7 % (11.5-15.5); WBC 11.5 k/uL (3.8-10.6)
[2016-08-26 09:17] LABS: Anion Gap 11 mmol/L; Blood Urea Nitrogen 21 mg/dL (9-20); Calcium 8.8 mg/dL (8.4-10.2); Carbon Dioxide 32 mmol/L (22-30); Chloride 101 mmol/L (98-107); Glucose 109 mg/dL (74-99); Non-African American GFR(MDRD) >60 (>60 ml/min/1.73 sqM); Potassium 3.9 mmol/L (3.5-5.1); Sodium 144 mmol/L (137-145)
[2016-08-26 09:22] LABS: INR 1.9 (<1.1); Prothrombin Time 18.4 sec (9.0-12.0)
[2016-08-26] MEDS: BRIMONIDINE TARTRATE 0.2% DROPS 5 ML BTL BOTH EYES SCH ×2 (10:25→20:46)
--- NOTE | 2016-08-26 13:40 | P.PN ---
Subjective Principal diagnosis: This is a very pleasant 66-year-old gentleman with a known history of coronary artery disease, atrial fibrillation/flutter anticoagulated with warfarin, prostate cancer, chronic obstructive pulmonary disease, pulmonary hypertension, diastolic congestive heart failure. He presented here on 08/22/2016 with complaints of increasing shortness of breath, cough and congestion. His chest x -ray did not reveal any significant cardiopulmonary abnormalities. There is some question of a right midlung infiltrate. He is on both diuresed and is on bronchodilators and antibiotics. He is seen again today 08/26/16 in follow-up on the regular medical floor. He is awake and alert in no acute distress. He states he is breathing easier today as compared to yesterday. He is maintaining good O2 saturations in the mid 90s on 5 L/m per nasal cannula. He desaturates into the low 80s on room air. He is currently afebrile. Leukocytosis is improving, currently at 13.4. His blood culture did reveal a group D enterococcus, he remains on Levaquin. Objective - Vital Signs Vital signs: Vital Signs Temp 97.4 F L 08/26/16 07:00 Pulse 68 08/26/16 12:42 Resp 20 08/26/16 07:00 BP 124/60 08/26/16 07:00 Pulse Ox 93 L 08/26/16 08:29 Intake & Output 08/25/16 08/26/16 08/26/16 18:59 06:59 18:59 Intake Total 800 Output Total 300 300 Balance 500 -300 Weight 102 kg Intake: IV 160 Sodium Chloride 0.9% 1, 160 000 ml @ 20 mls/hr IV . Q24H JAYLA Rx#:[id number] Intake, IV Titration 50 Amount Piperacillin-Tazobactam 3 50 .375 gm In Dextrose/Water 1 50ml.bag @ 12.5 mls/hr IVPB Q8HR JAYLA Rx#: [id number] Oral 590 Output: Urine 300 300 Other: Voiding Method Toilet Toilet Toilet Urinal Urinal Urinal # Voids 2 1 1 # Bowel Movements 1 - Exam GENERAL EXAM: Alert, active, comfortable in no apparent distress. HEAD: Normocephalic. EYES: Normal reaction of pupils, equal size. NOSE: Clear with pink turbinates. THROAT: No erythema or exudates. NECK: No masses, no JVD. CHEST: No chest wall deformity. LUNGS: Equal air entry with no crackles, wheeze, rhonchi or dullness. Diminished. CVS: S1 and S2 normal with no audible mumurs, regular rhythm. ABDOMEN: No hepatosplenomegaly, normal bowel sounds, no guarding or rigidity. Extremities: There is trace peripheral edema. No clubbing, no cyanosis. Peripheral pulses are intact. - Labs CBC & Chem 7: 08/26/16 08:30 08/26/16 08:30 Labs: Abnormal Lab Results - Last 24 Hours (Table) 08/26/16 08/26/16 08/26/16 Range/Units 08:30 08:30 08:30 WBC 11.5 H (3.8-10.6) k/uL RBC 4.16 L (4.30-5.90) m/uL Hgb 11.5 L (13.0-17.5) gm/dL Hct 38.1 L (39.0-53.0) % MCHC 30.1 L (31.0-37.0) g/dL RDW 15.7 H (11.5-15.5) % PT 18.4 H (9.0-12.0) sec Carbon Dioxide 32 H (22-30) mmol/L BUN 21 H (9-20) mg/dL Glucose 109 H (74-99) mg/dL Microbiology - Last 24 Hours (Table) 08/25/16 09:30 Gram Stain - Preliminary Sputum Sputum Culture - Preliminary Assessment and Plan Plan: Impression: #1 Acute exacerbation of chronic diastolic congestive heart failure. #2 Acute exacerbation of chronic obstructive pulmonary disease. Complicated by a right midlung infiltrate. #3 Moderate pulmonary hypertension, RVSP 52.34 mmHg with severely enlarged right ventricle. #4 Mild aortic regurgitation. Status post aortic valve replacement. #5 Stable dissection of the descending aorta as reviewed on most recent computed tomography scan in September 2015. #6 Chronic and ongoing nicotine addiction. #7 Hypertension. #8 Hyperlipidemia. #9 Chronic atrial fibrillation, anticoagulated with warfarin. Remains on amiodarone. #10 Bacteremia secondary to group D enterococcus. Plan: The patient was seen and evaluated by Dr. Ramey. His chest x-ray and labs were reviewed. We'll go ahead and continue with his current medications including bronchodilators, Symbicort, Spiriva and antibiotics in the form of Zosyn. We' ll also continue with the diuretics. Cardiology is on the case as well. We will increase his activity as tolerated. We'll continue to follow make further recommendations based on his clinical status.
--- NOTE | 2016-08-26 15:09 | PN ---
A 66-year-old admitted with COPD exacerbation as well as bacteremia secondary to E. coli and right middle lobe pneumonia and patient also has diastolic dysfunction and heart failure. Patient is on Coumadin as an anticoagulation for atrial fibrillation, although patient has one bowel movement and are going to consult Gastroenterology. Patient has a recent colonoscopy and if he has another bloody bowel movement, patient's Coumadin will be held until then. I will go ahead and continue his Coumadin later in the day if he does not have any more bloody stools. Patient will be continued on Zosyn. Patient eventually will need ampicillin on Augmentin upon discharge and patient will need a total of 14-day course of antibiotic therapy. Repeat cultures that were obtained from yesterday are still pending. REVIEW OF SYSTEMS: GENERAL: The patient's fatigue did improve. GASTROINTESTINAL: Patient has GI bleed. CARDIOVASCULAR: No chest pain, no orthopnea, no PND, no palpitations. PULMONARY: Denied any shortness of breath. No cough or hemoptysis. NEUROLOGIC: No headaches, no weakness, no numbness. Medications were reviewed. PHYSICAL EXAMINATION: Temperature 97.4, pulse of 70, respiratory rate of 20, blood pressure is 124/60, saturating at 93% on 3 L of O2 by nasal cannula. GENERAL: Patient appears to be tired and fatigued a little bit, but looks much better compared to yesterday. HEENT: Pupils are round and equally reacting to light. EOMI. No scleral icterus. No conjunctival pallor. Normocephalic, atraumatic. No pharyngeal erythema. No thyromegaly. CARDIOVASCULAR: S1 and S2 present. No murmurs, rubs, or gallops. PULMONARY: Chest is clear to auscultation, no wheezing or crackles. ABDOMEN: Soft, nontender, nondistended, normoactive bowel sounds. No palpable organomegaly. MUSCULOSKELETAL: No joint swelling or deformity. EXTREMITIES: No cyanosis, clubbing, or pedal edema. NEUROLOGICAL: Gross neurological examination did not reveal any focal deficits. SKIN: No rashes. LABORATORY DATA: CBC and comprehensive metabolic profile, no significant abnormality compared to yesterday. ASSESSMENT AND PLAN: 1. Acute hypoxic respiratory failure secondary to right middle lobe pneumonia. Patient has enterococcus faecalis septicemia and bacteremia, probably primary was being pneumonia, apart from that we did not find any other source. 2. Sepsis secondary to enterococcus faecalis bacteremia, repeat cultures are still pending from yesterday and today. 3. Acute on chronic hypercapnic respiratory secondary to chronic obstructive pulmonary disease exacerbation. 4. Moderate pulmonary hypertension. 5. Chronic diastolic dysfunction without any acute exacerbation at this point of time. Patient apparently had exacerbation when he came in. 6. Coronary artery disease. 7. Acute gastrointestinal bleed, probably because of Coumadin. Management as mentioned above. Deep venous thrombosis in the past. 8. Atrial fibrillation. INR is close to therapeutic. 9. History of hepatitis C.
[2016-08-26] MEDS: WARFARIN 2 MG TAB PO SCH (16:31)
[2016-08-26] MEDS: ATORVASTATIN 40 MG TAB PO SCH (20:45)
[2016-08-26] MEDS: PRAMIPEXOLE 0.25 MG TAB PO SCH (20:46)
[2016-08-26] MEDS: SODIUM CHLORIDE 0.9% 1,000 ML IV SCH (20:50)
[2016-08-27] MEDS: PIPERACILLIN-TAZOBACTAM 3.375 GM in DEXTROSE/WATER 1 50ML.BAG IVPB SCH ×3 (00:26→17:29)
[2016-08-27] MEDS: TIOTROPIUM 18 MCG/PUFF INHALER INHALATION SCH (07:32)
[2016-08-27] MEDS: ALBUTEROL NEBULIZED 2.5 MG/3 ML INHALATION SCH ×4 (07:33→19:30)
[2016-08-27] MEDS: SYMBICORT 160-4.5 MCG INHALER INHALATION SCH ×2 (07:33→19:30)
[2016-08-27] MEDS: DOCUSATE 100 MG CAP PO SCH ×2 (07:42→20:40)
[2016-08-27] MEDS: FUROSEMIDE 40 MG TAB PO SCH ×2 (07:42→20:35)
[2016-08-27] MEDS: ZONISAMIDE 25 MG CAP PO SCH ×2 (07:42→20:58)
[2016-08-27] MEDS: THIAMINE 100 MG TAB PO SCH (07:43)
[2016-08-27] MEDS: predniSONE 5 MG TAB PO SCH (07:43)
[2016-08-27] MEDS: PREGABALIN 50 MG CAP PO SCH ×2 (07:44→20:50)
[2016-08-27] MEDS: PANTOPRAZOLE 40 MG TABLET PO SCH (07:44)
[2016-08-27] MEDS: ARTIFICIAL TEARS-HYPROMELLOSE DROPS 15 ML BTL BOTH EYES SCH ×4 (07:50→21:00)
[2016-08-27] MEDS: BRIMONIDINE TARTRATE 0.2% DROPS 5 ML BTL BOTH EYES SCH ×2 (07:50→20:34)
[2016-08-27] MEDS: ASPIRIN 81 MG CHEW PO SCH (07:50)
[2016-08-27] MEDS: AMIODARONE 200 MG TAB PO SCH ×2 (07:51→20:34)
[2016-08-27 08:17] LABS: CHCM 29.6; HCT 40.2 % (39.0-53.0); HDW 2.59; HGB 11.7 gm/dL (13.0-17.5); Hypochromasia Marked; MCH 26.7 pg (25.0-35.0); MCHC 29.1 g/dL (31.0-37.0); MCV 91.7 fL (80.0-100.0); Mean Platelet Volume 7.7; RBC 4.38 m/uL (4.30-5.90); RDW 15.8 % (11.5-15.5); WBC 11.1 k/uL (3.8-10.6)
[2016-08-27 08:24] LABS: Prothrombin Time 19.2 sec (9.0-12.0)
[2016-08-27 08:45] LABS: Anion Gap 11 mmol/L; Blood Urea Nitrogen 15 mg/dL (9-20); Calcium 8.5 mg/dL (8.4-10.2); Carbon Dioxide 31 mmol/L (22-30); Chloride 101 mmol/L (98-107); Glucose 91 mg/dL (74-99); Non-African American GFR(MDRD) >60 (>60 ml/min/1.73 sqM); Potassium 4.1 mmol/L (3.5-5.1); Sodium 143 mmol/L (137-145)
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
[2016-08-27] MEDS: DILTIAZEM CD 240 MG CAP.ER.24H PO SCH (10:35)
[2016-08-27] MEDS: METOPROLOL TARTRATE 50 MG TAB PO SCH ×2 (10:46→20:44)
[2016-08-27] MEDS: POTASSIUM CHLORIDE ER 20 MEQ TAB.ER PO SCH (10:46)
--- NOTE | 2016-08-27 10:55 | P.PN ---
Subjective Progress note dated 08/25/2016 This patient's doing better. He 66. Admitted back on August 22. Has history of CAD atrial fibrillation/flutter prostate cancer COPD pneumonia pulmonary hypertension diastolic CHF. The patient's overall situation has improved. Much less short of breath. Much less coughing and wheezing. The patient is not bringing up any phlegm at this time. Blood cultures positive for group D enterococcus. He received 1 dose of vancomycin yesterday. We'll await sensitivities. Progress note dated 08/27/2016 This is a pleasant 66-year-old man with a history of CAD atrial fibrillation prostate cancer COPD hypertension CHF. Admitted back on August 22 with complaints of increasing shortness of breath cough and congestion. He likely has a right midlung pneumonia. The patient is doing better from the pulmonary standpoint. Awake and alert. A few her complaints. Still somewhat short of breath with exertion. His blood cultures did reveal group D enterococcus. Objective - Vital Signs Vital signs: Vital Signs Temp 98.4 F 08/27/16 07:00 Pulse 65 08/27/16 10:08 Resp 16 08/27/16 08:00 BP 115/69 08/27/16 10:08 Pulse Ox 95 08/27/16 07:00 Intake & Output 08/26/16 08/27/16 08/27/16 18:59 06:59 18:59 Intake Total 550 Output Total 300 Balance -300 550 Weight 100.5 kg Intake: IV 150 Piperacillin-Tazobactam 3 50 .375 gm In Dextrose/Water 1 50ml.bag @ 12.5 mls/hr IVPB Q8HR JAYLA Rx#: [id number] Sodium Chloride 0.9% 1, 100 000 ml @ 20 mls/hr IV . Q24H JAYLA Rx#:[id number] Oral 400 Output: Urine 300 Other: Voiding Method Toilet Toilet Toilet Urinal Urinal Urinal # Voids 2 1 # Bowel Movements 1 - Exam No acute distress, oriented 3. No acute distress. HEENT examination is grossly unremarkable. Mixed membranes are moist. No oral lesions. Neck supple. Full range of motion. No adenopathy. Cardiovascular examination reveals regular rhythm rate. S1-S2 normal. Lungs reveal a few scattered rhonchi. Breath sounds are mostly clear. No wheezes. Abdomen soft bowel sounds are heard. Extremities are intact. - Labs CBC & Chem 7: 08/27/16 07:59 08/27/16 07:59 Labs: Abnormal Lab Results - Last 24 Hours (Table) 08/27/16 08/27/16 08/27/16 Range/Units 07:59 07:59 07:59 WBC 11.1 H (3.8-10.6) k/uL Hgb 11.7 L (13.0-17.5) gm/dL MCHC 29.1 L (31.0-37.0) g/dL RDW 15.8 H (11.5-15.5) % PT 19.2 H (9.0-12.0) sec Carbon Dioxide 31 H (22-30) mmol/L Microbiology - Last 24 Hours (Table) 08/25/16 12:24 Blood Culture - Preliminary Blood No Growth after 24 hours Assessment and Plan (1) Congestive heart failure (CHF) Status: Acute (2) Pneumonia Status: Acute (3) Respiratory failure Status: Acute (4) Acute exacerbation of chronic obstructive pulmonary disease (COPD) Status: Acute (5) COPD exacerbation Status: Acute (6) Dyspnea Status: Acute Plan: Plan dated 08/25/2016 The patient continues to show improvement from his underlying CHF exacerbation as well as a COPD exacerbation [place] by right-sided pneumonia. We'll await the sensitivities of the group B strep. Additional recommendations suggestions are forthcoming. The patient does have history of pulmonary hypertension aortic insufficiency and a stable dissection of the ascending aorta. Also suffers some both hypertension hyperlipidemia and chronic atrial fibrillation. Labs x-rays and medications are all reviewed. Plan dated 08/27/2016 The patient's shortness of breath is multifactorial in part related to underlying diastolic CHF COPD exacerbation and right midlung pneumonia. Both of all improved. Other medical problems include the pulmonary hypertension aortic regurgitation a stable dissection of the descending aorta chronic and ongoing nicotine addiction hypertension hyperlipidemia chronic atrial fibrillation and bacteremia secondary to group D enterococci. Overall the patient's condition is improved. From the pulmonary standpoint he stable. We' ll see the patient only as needed. Time with Patient: Less than 30
[2016-08-27] MEDS ORDERED: PHYTONADIONE ORAL 5 MG/5 ML ORAL.SYRG PO STA (11:05)
[2016-08-27] MEDS: FERROUS SULFATE 325 MG TAB PO SCH (11:31)
[2016-08-27] MEDS: FOLIC ACID 1 MG TAB PO SCH (11:31)
[2016-08-27] MEDS: VIT A,C & E-LUTEIN-MINERALS 1 EACH TAB PO SCH (11:31)
[2016-08-27] MEDS: MULTIVITAMINS, THERA 1 EACH TAB PO SCH (11:31)
--- NOTE | 2016-08-27 12:06 | P.PN ---
Subjective Principal diagnosis: Exacerbation of COPD, pneumonia, diastolic heart failure. This is a 66-year-old gentleman with multiple comorbidities who was admitted on with increasing shortness of breath. His symptomatology was felt to be multifactorial and was treated with common a sterile antibiotics and also diuretics. Patient respiratory status is improved. His blood cultures came back positive for enterococcus. He is also having some chest tightness but seemed to be relieved after having bowel movement. Apparently had some blood in the stools. He may be having a colonoscopy for further evaluation. Overall his clinical situation seemed to be improved. We'll continue current medical therapy Objective - Vital Signs Vital signs: Vital Signs Temp 98.4 F 08/27/16 07:00 Pulse 68 08/27/16 11:15 Resp 16 08/27/16 08:00 BP 115/69 08/27/16 10:08 Pulse Ox 95 08/27/16 07:00 Intake & Output 08/26/16 08/27/16 08/27/16 18:59 06:59 18:59 Intake Total 550 Output Total 300 Balance -300 550 Weight 100.5 kg Intake: IV 150 Piperacillin-Tazobactam 3 50 .375 gm In Dextrose/Water 1 50ml.bag @ 12.5 mls/hr IVPB Q8HR JAYLA Rx#: [id number] Sodium Chloride 0.9% 1, 100 000 ml @ 20 mls/hr IV . Q24H JAYLA Rx#:[id number] Oral 400 Output: Urine 300 Other: Voiding Method Toilet Toilet Toilet Urinal Urinal Urinal # Voids 2 1 # Bowel Movements 1 - Exam GENERAL EXAM: Patient is alert and oriented and doesn't appear to be in any acute distress HEENT: Normocephalic. Normal reaction of pupils, equal size, NECK: No masses, no nuchal rigidity. CHEST: No chest wall deformity. LUNGS: Diminished breath sounds. HEART: S1 and S2 normal . ABDOMEN: No hepatosplenomegaly, normal bowel sounds, no guarding or rigidity. SKIN: No rashes CENTRAL NERVOUS SYSTEM: No focal deficits. EXTREMITIES: No cyanosis, clubbing or edema. - Labs CBC & Chem 7: 08/27/16 07:59 08/27/16 07:59 Labs: Abnormal Lab Results - Last 24 Hours (Table) 08/27/16 08/27/16 08/27/16 Range/Units 07:59 07:59 07:59 WBC 11.1 H (3.8-10.6) k/uL Hgb 11.7 L (13.0-17.5) gm/dL MCHC 29.1 L (31.0-37.0) g/dL RDW 15.8 H (11.5-15.5) % PT 19.2 H (9.0-12.0) sec Carbon Dioxide 31 H (22-30) mmol/L Microbiology - Last 24 Hours (Table) 08/26/16 08:30 Blood Culture - Preliminary Blood No Growth after 24 hours 08/25/16 12:24 Blood Culture - Preliminary Blood No Growth after 24 hours Assessment and Plan (1) Pneumonia Status: Acute (2) Respiratory failure Status: Acute (3) Acute exacerbation of chronic obstructive pulmonary disease (COPD) Status: Acute (4) Aortic aneurysm Status: Acute (5) Atrial fibrillation Status: Acute (6) Cor pulmonale Status: Acute (7) Positive blood cultures Status: Acute Plan: Patient overall clinical situation has improved. Patient's pulmonary status has also improved. He is being treated for positive blood cultures with antibiotics. He is also having some rectal bleeding. This is being addressed by GI department.
--- NOTE | 2016-08-27 12:08 | P.PN ---
Subjective Principal diagnosis: Exacerbation of COPD, pneumonia, diastolic heart failure. This 66-year-old gentleman was admitted with increasing shortness of breath seemed to be clinically much better. He denies any chest tightness or shortness of breath. He is waiting to have colonoscopy tomorrow. His INR is being reversed and if it is below 1.5 colonoscopy will be done tomorrow. Current medical therapy to be continued Objective - Vital Signs Vital signs: Vital Signs Temp 98.4 F 08/27/16 07:00 Pulse 68 08/27/16 11:15 Resp 16 08/27/16 08:00 BP 115/69 08/27/16 10:08 Pulse Ox 95 08/27/16 07:00 Intake & Output 08/26/16 08/27/16 08/27/16 18:59 06:59 18:59 Intake Total 550 Output Total 300 Balance -300 550 Weight 100.5 kg Intake: IV 150 Piperacillin-Tazobactam 3 50 .375 gm In Dextrose/Water 1 50ml.bag @ 12.5 mls/hr IVPB Q8HR JAYLA Rx#: [id number] Sodium Chloride 0.9% 1, 100 000 ml @ 20 mls/hr IV . Q24H JAYLA Rx#:[id number] Oral 400 Output: Urine 300 Other: Voiding Method Toilet Toilet Toilet Urinal Urinal Urinal # Voids 2 1 # Bowel Movements 1 - Exam GENERAL EXAM: Patient is alert and oriented and doesn't appear to be in any acute distress HEENT: Normocephalic. Normal reaction of pupils, equal size, NECK: No masses, no nuchal rigidity. CHEST: No chest wall deformity. LUNGS: Diminished breath sounds. HEART: S1 and S2 normal . ABDOMEN: No hepatosplenomegaly, normal bowel sounds, no guarding or rigidity. SKIN: No rashes CENTRAL NERVOUS SYSTEM: No focal deficits. EXTREMITIES: No cyanosis, clubbing or edema. - Labs CBC & Chem 7: 08/27/16 07:59 08/27/16 07:59 Labs: Abnormal Lab Results - Last 24 Hours (Table) 08/27/16 08/27/16 08/27/16 Range/Units 07:59 07:59 07:59 WBC 11.1 H (3.8-10.6) k/uL Hgb 11.7 L (13.0-17.5) gm/dL MCHC 29.1 L (31.0-37.0) g/dL RDW 15.8 H (11.5-15.5) % PT 19.2 H (9.0-12.0) sec Carbon Dioxide 31 H (22-30) mmol/L Microbiology - Last 24 Hours (Table) 08/26/16 08:30 Blood Culture - Preliminary Blood No Growth after 24 hours 08/25/16 12:24 Blood Culture - Preliminary Blood No Growth after 24 hours Assessment and Plan (1) Pneumonia Status: Acute (2) Respiratory failure Status: Acute (3) Acute exacerbation of chronic obstructive pulmonary disease (COPD) Status: Acute (4) Aortic aneurysm Status: Acute (5) Atrial fibrillation Status: Acute (6) Cor pulmonale Status: Acute (7) Positive blood cultures Status: Acute Plan: Clinically seemed to be more stable. Denies any chest pain or shortness of breath. Waiting to have colonoscopy tomorrow. We'll follow as needed
[2016-08-27 13:22] VITALS: BMI 32.7
[2016-08-27] MEDS ORDERED: PEG 3350-NA SULF,BICARB,CL/KCL 4,000 ML BOTTLE PO ONE (15:00)
--- NOTE | 2016-08-27 16:31 | PN ---
Patient is admitted with COPD exacerbation. Patient has bacteremia with ( ) and patient on ( ) for that and the patient can be discharged on ampicillin or Augmentin upon discharge. Patient is being treated for right middle lobe pneumonia. Patient came in with hypoxic respiratory failure secondary to congestive heart failure as well as chronic obstructive pulmonary disease exacerbation. Patient has GI bleed because of which his Coumadin is being held at this point of time. Patient is going for colonoscopy tomorrow. REVIEW OF SYSTEMS: CARDIOVASCULAR: No chest pain, no orthopnea, no PND, no palpitations. PULMONARY: Denied any shortness of breath. No cough or hemoptysis. GASTROINTESTINAL: As described in HPI. NEUROLOGIC: No headaches, no weakness, no numbness. Medications were reviewed. PHYSICAL EXAMINATION: VITAL SIGNS: Temperature 98.4, pulse of 70, respiratory rate of 16, blood pressure is 115/69, saturating at 94% on 2 liters O2 by nasal cannula. GENERAL: The patient is alert and oriented x3, not in any acute distress. Well developed, well nourished. HEENT: Pupils are round and equally reacting to light. EOMI. No scleral icterus. No conjunctival pallor. Normocephalic, atraumatic. No pharyngeal erythema. No thyromegaly. CARDIOVASCULAR: S1 and S2 present. No murmurs, rubs, or gallops. PULMONARY: Chest is clear to auscultation, no wheezing or crackles. ABDOMEN: Soft, nontender, nondistended, normoactive bowel sounds. No palpable organomegaly. MUSCULOSKELETAL: No joint swelling or deformity. EXTREMITIES: No cyanosis, clubbing, or pedal edema. NEUROLOGICAL: Gross neurological examination did not reveal any focal deficits. SKIN: No rashes. LABORATORY DATA: CBC is abnormal for mildly low hemoglobin of 11.7, although stable compared to yesterday. The patient had only one bowel movement today, which is bloody. ASSESSMENT AND PLAN: 1. Acute hypoxic and hypercapnic respiratory failure secondary to right middle lobe pneumonia and patient also has enterococcus faecalis septicemia and bacteremia and patient also has acute hypercapnic respiratory failure secondary to chronic obstructive pulmonary disease exacerbation. 2. Sepsis secondary to above. 3. Moderate pulmonary hypertension. 4. Chronic diastolic dysfunction with mild acute exacerbation. Patient is fairly euvolemic at this point of time. 5. Gastrointestinal bleed secondary to antiplatelet therapy and Coumadin, which are being held at this point of time. Patient will receive 5 mg of vitamin K. 6. History of hepatitis C.
[2016-08-27] MEDS: ATORVASTATIN 40 MG TAB PO SCH (20:34)
[2016-08-27] MEDS: PRAMIPEXOLE 0.25 MG TAB PO SCH (20:50)
[2016-08-27] MEDS: SODIUM CHLORIDE 0.9% 1,000 ML IV SCH (21:42)
[2016-08-28] MEDS: PIPERACILLIN-TAZOBACTAM 3.375 GM in DEXTROSE/WATER 1 50ML.BAG IVPB SCH ×4 (00:22→23:42)
[2016-08-28 05:49] LABS: INR 1.4 (<1.1); Prothrombin Time 13.8 sec (9.0-12.0)
[2016-08-28] MEDS: ALBUTEROL NEBULIZED 2.5 MG/3 ML INHALATION SCH ×4 (07:45→20:00)
[2016-08-28] MEDS: TIOTROPIUM 18 MCG/PUFF INHALER INHALATION SCH (07:46)
[2016-08-28] MEDS: SYMBICORT 160-4.5 MCG INHALER INHALATION SCH ×2 (07:46→20:00)
[2016-08-28] MEDS ORDERED: LIDOCAINE 1% INJ 10MG/ML (20 ML MDV) ONE (08:11)
[2016-08-28] MEDS ORDERED: PROPOFOL 10 MG/ML 20 ML VIAL IV ONE (08:11)
[2016-08-28] MEDS ORDERED: IV FLUID CONTINUATION 1,000 ML IV ONE (08:12)
--- NOTE | 2016-08-28 08:39 | P.PCN ---
Date of Procedure: 08/28/16 Procedure(s) Performed: BRIEF HISTORY: Patient is a 66-year-old pleasant white male, scheduled for an elective colonoscopy as a part of evaluation of form acute lower GI bleed. He had 2 episodes of maroon-colored stool yesterday and today before and prior to that had a similar episode 2 weeks ago admission he came in the rectum and was advised to have a colonoscopy as outpatient basis. Patient is on Coumadin which has been on hold and was given vitamin K and INR today is 1.4. PROCEDURE PERFORMED: Colonoscopy with snare polypectomy. PREOPERATIVE DIAGNOSIS: GI bleed. IV sedation per Anesthesia. PROCEDURE: After informed consent was obtained, the patient, was brought into the endoscopy unit. IV conscious sedation was administered by Anesthesia under continuous monitoring. Initially the Olympus CF-160 flexible video colonoscope was then inserted in the rectum, gradually advanced into the cecum without any difficulty. Careful examination was performed as the scope was gradually being withdrawn. Ileocecal valve and the appendiceal orifice were visualized and appeared normal. Prep was excellent. Mucosa of the cecum, appeared normal. In the ascending colon there was a 1 cm polyp removed by snare polypectomy. In the transverse colon there were 5 polyps measuring between 5 mm to 1 cm in size all of which were removed by snare polypectomy. In the descending colon there was a 1 cm 2 polyps removed by snare polypectomy. There are scattered sigmoidal diverticulosis seen. ascending colon, transverse colon, descending colon, sigmoid colon, and rectum appeared normal. Retroflexion was performed in the rectum and no lesions were seen. The patient tolerated the procedure well. IMPRESSION: 1 cm ascending colon polyp serous was snare polypectomy 5 polyps in the transverse colon measuring between 5 mm to 1 cm in size status post polypectomy 1 cm 2 descending colon polyp serous was polypectomy Scattered sigmoid diverticulosis. RECOMMENDATIONS: Findings of this examination were discussed with the patientas well as his family. He was advised to follow with the biopsy results. He was also advised to hold Coumadin for 3 more days before it can be resumed.
[2016-08-28] MEDS: ARTIFICIAL TEARS-HYPROMELLOSE DROPS 15 ML BTL BOTH EYES SCH ×4 (09:26→21:34)
[2016-08-28] MEDS: PANTOPRAZOLE 40 MG TABLET PO SCH (09:27)
[2016-08-28] MEDS: ASPIRIN 81 MG CHEW PO SCH (09:27)
[2016-08-28] MEDS: AMIODARONE 200 MG TAB PO SCH ×2 (09:28→21:04)
[2016-08-28] MEDS: BRIMONIDINE TARTRATE 0.2% DROPS 5 ML BTL BOTH EYES SCH ×2 (09:28→21:05)
[2016-08-28] MEDS: FUROSEMIDE 40 MG TAB PO SCH ×2 (09:29→21:07)
[2016-08-28] MEDS: DOCUSATE 100 MG CAP PO SCH ×2 (09:29→21:05)
[2016-08-28] MEDS: DILTIAZEM CD 240 MG CAP.ER.24H PO SCH (09:29)
[2016-08-28] MEDS: METOPROLOL TARTRATE 50 MG TAB PO SCH ×2 (09:29→21:06)
[2016-08-28] MEDS: PREGABALIN 50 MG CAP PO SCH ×2 (09:30→21:06)
[2016-08-28] MEDS: ZONISAMIDE 25 MG CAP PO SCH ×2 (09:31→21:05)
[2016-08-28] MEDS: THIAMINE 100 MG TAB PO SCH (09:31)
[2016-08-28] MEDS: predniSONE 5 MG TAB PO SCH (09:32)
[2016-08-28] MEDS: POTASSIUM CHLORIDE ER 20 MEQ TAB.ER PO SCH (09:42)
[2016-08-28] MEDS: MULTIVITAMINS, THERA 1 EACH TAB PO SCH (12:57)
[2016-08-28] MEDS: FERROUS SULFATE 325 MG TAB PO SCH (12:57)
[2016-08-28] MEDS: VIT A,C & E-LUTEIN-MINERALS 1 EACH TAB PO SCH (12:57)
[2016-08-28] MEDS: FOLIC ACID 1 MG TAB PO SCH (12:58)
[2016-08-28] MEDS: PRAMIPEXOLE 0.25 MG TAB PO SCH (21:05)
[2016-08-28] MEDS: ATORVASTATIN 40 MG TAB PO SCH (21:05)
[2016-08-28] MEDS: SODIUM CHLORIDE 0.9% 1,000 ML IV SCH (21:07)
--- NOTE | 2016-08-28 21:47 | PN ---
DATE OF SERVICE: 08/28/2016 This 66-year-old gentleman with a past medical history of multiple medical problems admitted with COPD, acute exacerbation, as well as acute hypercarbic respiratory failure secondary to right middle lobe pneumonia. The patient also has Enterococcus faecalis, septicemia and bacteremia. The patient is being closely monitored, but still short of breath. Dr. Ramey is following the patient closely. Dr. Santana has performed colonoscopy and snare polypectomy for evaluation of gastrointestinal bleed, which is underway, 1 cm polyp noted and five polyps in the transverse colon measuring between 5 mm to 1 cm was also noted. PAST MEDICAL HISTORY: Reviewed. REVIEW OF SYSTEMS: CARDIOVASCULAR: No angina. RESPIRATORY: As mentioned earlier. GI: As mentioned earlier : No dysuria. NERVOUS SYSTEM: No numbness or weakness. Current medications are reviewed and include: 1. Cantril 5 mg q.6 p.r.n. 2. Ventolin. 3. Cordarone 200 mg p.o. b.i.d. 4. Aspirin 81 mg daily. 5. Lipitor 40 mg q.h.s. 6. Alphagan one drop both eyes. 7. Symbicort 160/4.5, 2 puffs b.i.d. 8. Cardizem CD 240 mg daily. 9. Colace 100 mg p.o. b.i.d. 10. Iron sulfate 320 mg daily. 11. Folic acid 1 mg daily. 12. Lasix 40 mg p.o. b.i.d. 13. Lopressor 100 mg p.o. b.i.d. 14. Multivitamin 1 p.o. daily. 15. I-Larry 1 p.o. daily. 16. Narcan. 17. Protonix. 18. K-Dur 20 mEq p.o. daily. 19. Mirapex 0.25 mg q.6. 20. Lyrica 50 mg p.o. b.i.d. 21. Requip. 22. Coumadin. 23. Spiriva. 24. Zonegran. PHYSICAL EXAMINATION: Patient is alert and oriented x3. Pulse is 65, blood pressure 114/54, respirations 16, temperature 97.7, pulse 90% on room air. HEENT: Conjunctivae normal. Oral mucosa moist. NECK: No jugular venous distention. No carotid bruit. No lymph node enlargement. CARDIOVASCULAR: S1 and S2, muffled. RESPIRATORY: Breath sounds diminished at the bases. A few scattered rhonchi, no crackles. Expiratory wheezing also present. ABDOMEN: Soft, nontender. No mass palpable. LEGS: No edema, no swelling. NERVOUS SYSTEM: Higher function as mentioned. Moves all four limbs. No focal motor deficits. LYMPHATIC: No lymphadenopathy in the neck, axillae or groin. SKIN: No ulcer, rash or bleeding. LABS: WBC 11, hemoglobin 7.7. Sodium is 143. ASSESSMENT: 1. Chronic obstructive pulmonary disease acute exacerbation with acute right middle lobe pneumonia, possibly gram-negative with acute hypercarbic respiratory failure. 2. Enterococcus faecalis, septicemia and bacteremia. 3. Sepsis. 4. Moderate pulmonary hypertension. 5. Congestive heart failure with chronic diastolic dysfunction. 6. History of GI bleed secondary to antiplatelet treatment and Coumadin coagulopathy. 7. History of hepatitis C. 8. Increased WBC. 9. Anemia, normocytic anemia of chronic disease. 10. Atrial fibrillation and flutter. 11. History of coronary artery disease. 12. History of chronic obstructive pulmonary disease. 13. History of deep venous thrombosis. 14. History of gastroesophageal reflux disease. 15. Hypertension. 16. Hyperlipidemia. 17. History of aortic valve replacement with bioprosthetic aortic valve. 18. History of pneumonia. 19. History of cardiac catheterization. 20. History of continued ongoing nicotine dependence. 21. FULL CODE. RECOMMENDATIONS AND DISCUSSION: In this 66-year-old gentleman who presented with multiple complex medical issues, we will monitor the patient closely. Continue the current medications, continue symptomatic treatment. Continue bronchodilators. Continue me antibiotics. Otherwise, monitor PT, INR closely. Repeat labs will be arranged. Otherwise, guarded prognosis because of multiple complex medical issues. Further recommendations to follow. PT-INR is also being checked on a daily basis. Discussed with the patient who understands and agrees. Further recommendations to follow.
[2016-08-29 07:33] LABS: Anisocytosis Slight; Basophils # (A) 0.1 k/uL (0-0.2); Basophils % (A) 0 %; CH 27.1; CHCM 29.9; Eosinophils # (A) 0.2 k/uL (0-0.7); Eosinophils % (A) 2 %; HCT 37.8 % (39.0-53.0); HDW 2.54; HGB 11.5 gm/dL (13.0-17.5); Hypochromasia Marked; Luc # (Auto) 0.26; Luc % (Auto) 2; Lymphocytes # (A) 1.1 k/uL (1.0-4.8); Lymphocytes % (A) 10 %; MCH 27.7 pg (25.0-35.0); MCHC 30.3 g/dL (31.0-37.0); MCV 91.2 fL (80.0-100.0); Mean Platelet Volume 7.7; Monocytes # (A) 0.7 k/uL (0-1.0); Monocytes % (A) 7 %; Neutrophils # (A) 8.2 k/uL (1.3-7.7); Neutrophils % (A) 78 %; RBC 4.14 m/uL (4.30-5.90); WBC 10.5 k/uL (3.8-10.6); WBC (Perox) 11.21
[2016-08-29 07:51] LABS: Anion Gap 9 mmol/L; Blood Urea Nitrogen 13 mg/dL (9-20); Calcium 8.5 mg/dL (8.4-10.2); Carbon Dioxide 31 mmol/L (22-30); Chloride 102 mmol/L (98-107); Glucose 101 mg/dL (74-99); INR 1.2 (<1.1); Non-African American GFR(MDRD) >60 (>60 ml/min/1.73 sqM); Potassium 3.9 mmol/L (3.5-5.1); Prothrombin Time 11.9 sec (9.0-12.0); Sodium 142 mmol/L (137-145)
[2016-08-29] MEDS: PIPERACILLIN-TAZOBACTAM 3.375 GM in DEXTROSE/WATER 1 50ML.BAG IVPB SCH ×2 (08:15→15:41)
[2016-08-29] MEDS: PANTOPRAZOLE 40 MG TABLET PO SCH (08:15)
[2016-08-29] MEDS: ARTIFICIAL TEARS-HYPROMELLOSE DROPS 15 ML BTL BOTH EYES SCH ×4 (08:16→20:43)
[2016-08-29] MEDS: BRIMONIDINE TARTRATE 0.2% DROPS 5 ML BTL BOTH EYES SCH ×2 (08:16→20:42)
[2016-08-29] MEDS: ZONISAMIDE 25 MG CAP PO SCH ×2 (08:16→20:43)
[2016-08-29] MEDS: PREGABALIN 50 MG CAP PO SCH ×2 (08:16→20:41)
[2016-08-29] MEDS: predniSONE 5 MG TAB PO SCH (08:17)
[2016-08-29] MEDS: DOCUSATE 100 MG CAP PO SCH ×2 (08:17→20:42)
[2016-08-29] MEDS: FUROSEMIDE 40 MG TAB PO SCH ×2 (08:17→20:40)
[2016-08-29] MEDS: ASPIRIN 81 MG CHEW PO SCH (08:17)
[2016-08-29] MEDS: THIAMINE 100 MG TAB PO SCH (08:18)
[2016-08-29] MEDS: POTASSIUM CHLORIDE ER 20 MEQ TAB.ER PO SCH (08:18)
[2016-08-29] MEDS: AMIODARONE 200 MG TAB PO SCH ×2 (08:18→20:40)
[2016-08-29] MEDS: DILTIAZEM CD 240 MG CAP.ER.24H PO SCH (08:18)
[2016-08-29] MEDS: METOPROLOL TARTRATE 50 MG TAB PO SCH ×2 (08:18→20:41)
[2016-08-29] MEDS: ALBUTEROL NEBULIZED 2.5 MG/3 ML INHALATION SCH ×4 (09:14→19:30)
[2016-08-29] MEDS: TIOTROPIUM 18 MCG/PUFF INHALER INHALATION SCH (09:15)
[2016-08-29] MEDS: SYMBICORT 160-4.5 MCG INHALER INHALATION SCH ×2 (09:15→19:30)
--- NOTE | 2016-08-29 11:08 | PN ---
DATE OF SERVICE: 08/29/2016 The patient is a 66-year-old white male admitted to the hospital with COPD exacerbation as well as right middle lobe pneumonia for which he is on broad-spectrum antibiotics. He had lower gastrointestinal bleed during this hospitalization and underwent a colonoscopy yesterday and was noted to have multiple small polyps, ( ) polypectomy and sigmoid diverticulosis. No active bleeding noted at the time of examination. the patient today states that he is feeling better. He had one bowel movement, brown in color. No more bleeding. On physical examination, appears comfortable, in no apparent distress. Vitals as are stable. Blood pressure is 142/66, pulse rate is 60, temperature 97. HEENT: Unremarkable. Conjunctivae pink. Sclerae anicteric. Oral cavity, no lesions. NECK: No JVD. CHEST: Clear to auscultation. HEART: Regular rate and rhythm. ABDOMEN: Soft. It was nontender, nondistended. Bowel sounds positive. No organomegaly. EXTREMITIES: No pedal edema. SKIN: No rashes. NEURO: Alert and oriented x3. No focal deficits. LABS: From today, hemoglobin 11.5. WBC 10.5, platelets are normal. Basic metabolic panel is within normal limits. IMPRESSION: 1. Acute lower gastrointestinal bleed status post colonoscopy yesterday that showed sigmoid diverticulosis and multiple small colon polyps ( ) polypectomy. Most likely the cause of bleeding was diverticular in nature. Presently the bleeding has stopped and hemoglobin today is stable at 11.6. 2. History of atrial fibrillation, on Coumadin, which has been on hold for colonoscopy yesterday. RECOMMENDATIONS: 1. Advance diet as tolerated. 2. Resume Coumadin tomorrow. 3. If the biopsies of colon polyps show tubular adenoma, he was advised to have a repeat colonoscopy in 3 years.
--- NOTE | 2016-08-29 11:12 | PN ---
DATE OF SERVICE: 08/29/2016 Patient is a 66-year-old white male admitted to the hospital with COPD exacerbation as well as right middle lobe pneumonia for which he is on broad-spectrum antibiotics. He had lower gastrointestinal bleed during this hospitalization and underwent a colonoscopy yesterday and was noted to have multiple small polyps removed by snare polypectomy as well as sigmoid diverticulosis. No active bleeding noted at the time of examination. The patient today stated he is feeling better. He had one bowel movement, brown in color, no more bleeding. On physical examination, appears comfortable in no apparent distress. Vital signs are stable. Blood pressure is 142/66, pulse rate is 68, temperature 97.2. HEENT: Unremarkable. Conjunctivae pink. Sclerae anicteric. Oral cavity, no lesions. NECK: No JVD or lymph node enlargement. CHEST: Clear to auscultation. HEART: Regular rate and rhythm. ABDOMEN: Soft. It was nontender, nondistended. Bowel sounds are positive. No organomegaly. EXTREMITIES: No pedal edema. SKIN: No rashes. NEURO: Alert and oriented x3. No focal deficits. Labs from today: Hemoglobin 11.5. WBC 10.5, platelets are normal. Basic metabolic panel is within normal limits. IMPRESSION: 1. Acute lower gastrointestinal bleed, status post colonoscopy yesterday that showed sigmoid diverticulosis and multiple small colon polyps that were removed by snare polypectomy. Most likely the cause of bleeding was diverticular in nature. Presently the bleeding has stopped. Hemoglobin today is stable at 11.6. 2. History of atrial fibrillation on Coumadin which has been on hold for colonoscopy yesterday. RECOMMENDATIONS: 1. Advance diet as tolerated. 2. Resume Coumadin tomorrow. 3. If the biopsies of colon polyp show tubular adenoma, he was advised to have a repeat colonoscopy in 3-years.
[2016-08-29] MEDS: FOLIC ACID 1 MG TAB PO SCH (13:11)
[2016-08-29] MEDS: VIT A,C & E-LUTEIN-MINERALS 1 EACH TAB PO SCH (13:11)
[2016-08-29] MEDS: FERROUS SULFATE 325 MG TAB PO SCH (13:11)
[2016-08-29] MEDS: MULTIVITAMINS, THERA 1 EACH TAB PO SCH (13:11)
[2016-08-29] MEDS: SODIUM CHLORIDE 0.9% 1,000 ML IV SCH (20:40)
[2016-08-29] MEDS: PRAMIPEXOLE 0.25 MG TAB PO SCH (20:40)
[2016-08-29] MEDS: ATORVASTATIN 40 MG TAB PO SCH (20:41)
[2016-08-30] MEDS: PIPERACILLIN-TAZOBACTAM 3.375 GM in DEXTROSE/WATER 1 50ML.BAG IVPB SCH ×2 (00:16→08:20)
[2016-08-30] MEDS: ALBUTEROL NEBULIZED 2.5 MG/3 ML INHALATION SCH ×3 (07:45→15:35)
[2016-08-30] MEDS: SYMBICORT 160-4.5 MCG INHALER INHALATION SCH (07:57)
[2016-08-30] MEDS: TIOTROPIUM 18 MCG/PUFF INHALER INHALATION SCH (07:57)
[2016-08-30] MEDS: FUROSEMIDE 40 MG TAB PO SCH (08:16)
[2016-08-30] MEDS: ASPIRIN 81 MG CHEW PO SCH (08:16)
[2016-08-30] MEDS: PANTOPRAZOLE 40 MG TABLET PO SCH (08:16)
[2016-08-30] MEDS: ARTIFICIAL TEARS-HYPROMELLOSE DROPS 15 ML BTL BOTH EYES SCH ×2 (08:16→11:23)
[2016-08-30] MEDS: ZONISAMIDE 25 MG CAP PO SCH (08:16)
[2016-08-30] MEDS: POTASSIUM CHLORIDE ER 20 MEQ TAB.ER PO SCH (08:16)
[2016-08-30] MEDS: AMIODARONE 200 MG TAB PO SCH (08:16)
[2016-08-30] MEDS: THIAMINE 100 MG TAB PO SCH (08:16)
[2016-08-30] MEDS: PREGABALIN 50 MG CAP PO SCH (08:16)
[2016-08-30] MEDS: DILTIAZEM CD 240 MG CAP.ER.24H PO SCH (08:16)
[2016-08-30] MEDS: predniSONE 5 MG TAB PO SCH (08:16)
[2016-08-30] MEDS: VIT A,C & E-LUTEIN-MINERALS 1 EACH TAB PO SCH (08:17)
[2016-08-30] MEDS: BRIMONIDINE TARTRATE 0.2% DROPS 5 ML BTL BOTH EYES SCH (08:17)
[2016-08-30] MEDS: DOCUSATE 100 MG CAP PO SCH (08:17)
[2016-08-30] MEDS: FERROUS SULFATE 325 MG TAB PO SCH (08:17)
[2016-08-30] MEDS: FOLIC ACID 1 MG TAB PO SCH (08:17)
[2016-08-30 08:18] LABS: Anion Gap 12 mmol/L; Blood Urea Nitrogen 15 mg/dL (9-20); Carbon Dioxide 25 mmol/L (22-30); Chloride 106 mmol/L (98-107); Glucose 100 mg/dL (74-99); Non-African American GFR(MDRD) >60 (>60 ml/min/1.73 sqM); Potassium 4.1 mmol/L (3.5-5.1); Sodium 143 mmol/L (137-145)
[2016-08-30] MEDS: MULTIVITAMINS, THERA 1 EACH TAB PO SCH (08:18)
[2016-08-30 08:22] LABS: INR 1.2 (<1.1); Prothrombin Time 11.8 sec (9.0-12.0)
[2016-08-30 08:27] LABS: Anisocytosis Slight; Basophils # (A) 0.1 k/uL (0-0.2); Basophils % (A) 1 %; CH 27.4; CHCM 29.7; Eosinophils # (A) 0.2 k/uL (0-0.7); Eosinophils % (A) 2 %; HCT 39.2 % (39.0-53.0); HDW 2.57; HGB 11.7 gm/dL (13.0-17.5); Hypochromasia Marked; Luc # (Auto) 0.27; Luc % (Auto) 3; Lymphocytes # (A) 1.2 k/uL (1.0-4.8); Lymphocytes % (A) 12 %; MCH 27.5 pg (25.0-35.0); MCHC 29.7 g/dL (31.0-37.0); MCV 92.6 fL (80.0-100.0); Mean Platelet Volume 8.6; Monocytes # (A) 0.6 k/uL (0-1.0); Monocytes % (A) 6 %; Neutrophils # (A) 7.8 k/uL (1.3-7.7); Neutrophils % (A) 76 %; RBC 4.24 m/uL (4.30-5.90); RDW 16.4 % (11.5-15.5); WBC 10.2 k/uL (3.8-10.6); WBC (Perox) 10.57
[2016-08-30 09:00] VITALS: RESP 18
--- NOTE | 2016-08-30 10:18 | PN ---
DATE OF SERVICE: 08/29/2016 This is a 66-year-old gentleman who was admitted with multiple medical problems, COPD and bacteremia. Also had sepsis on presentation. Patient improved significantly. Dr. Santana is also seeing the patient at this time. Diet has been advanced. Patient had a colonoscopy and polypectomy also. No chest pain or palpitation, no fever. On exam, alert and oriented x3. Pulse 61, blood pressure 107/56, respirations 20, temperature is 99.1, pulse ox 96% on 3 L. HEENT: Conjunctivae normal. NECK: No jugular venous distension. CARDIOPULMONARY SERVICES: S1, S2, muffled. RESPIRATORY: Breath sounds diminished at the bases, a few scattered rhonchi and expiratory wheezing also present. ABDOMEN: Soft, nontender. EXTREMITIES: Legs no edema, no swelling. NERVOUS SYSTEM: No focal deficits. LABS: WBC 10.5, hemoglobin is 11.5. ASSESSMENT: 1. Chronic obstructive pulmonary disease acute exacerbation, with acute right middle lobe pneumonia, possibly gram-negative with acute hypercarbic respiratory failure. 2. Enterococcus faecalis septicemia and bacteremia. 3. Sepsis. 4. Moderate pulmonary hypertension. 5. Congestive heart failure with chronic diastolic dysfunction. 6. History of gastrointestinal bleed secondary to antiplatelet treatment as well as Coumadin coagulopathy. 7. History of hepatitis C. 8. Increased WBC. 9. Anemia, normocytic anemia of chronic disease. 10. History of atrial fibrillation flutter. 11. History of coronary artery disease. 12. History of chronic obstructive pulmonary disease. 13. History of deep venous thrombosis. 14. History of gastroesophageal reflux disease. 15. Hypertension. 16. Hyperlipidemia. 17. History of aortic valve replacement with a bioprosthetic aortic valve. 18. History of pneumonia. 19. History of cardiac catheterization. 20. History of ongoing nicotine dependence. 21. FULL CODE. RECOMMENDATION: In this 66-year-old gentleman who presented with multiple complex medical issues, will monitor the patient closely, continue with the current medication and continued symptomatic treatment. Otherwise, at this time I would recommend continue with the bronchodilators and antibiotics and the rest of the medication. Increase ambulation. Guarded prognosis. Further recommendations to follow.
[2016-08-30] MEDS: METOPROLOL TARTRATE 50 MG TAB PO SCH (11:25)
[2016-08-30 15:19] VITALS: BP 130/72; TEMP 97.8
[2016-08-30 15:39] VITALS: PULSE 86
--- NOTE | 2016-08-30 17:49 | DS ---
DATE OF ADMISSION: 08/22/2016 DATE OF DISCHARGE: 08/30/2016 FINAL DIAGNOSES: 1. Chronic obstructive pulmonary disease exacerbation, with acute right middle lobe pneumonia, possibly gram-negative with acute hypercarbic respiratory failure and Enterococcus faecalis septicemia and bacteremia. 2. Sepsis present on admission. 3. Moderate pulmonary hypertension. 4. Congestive heart failure with chronic diastolic dysfunction. 5. History of gastrointestinal bleed secondary to antiplatelet treatment as well as Coumadin coagulopathy, improved. 6. History of hepatitis C. 7. Increased WBC. 8. Anemia, normocytic, anemia of chronic disease. 9. History of atrial fibrillation and flutter. 10. History of coronary artery disease. 11. History of chronic obstructive pulmonary disease. 12. History of deep venous thrombosis. 13. History of gastroesophageal reflux disease. 14. Hypertension essential. 15. Hyperlipidemia. 16. History aortic valve replacement with bioprosthetic aortic valve. 17. History of pneumonia. 18. History of cardiac catheterization. 19. History of ongoing nicotine dependence. 20. FULL CODE. DISCHARGE DISPOSITION: The patient will be discharged in stable condition with guarded prognosis. Total time taken 35 minutes. HISTORY OF PRESENT ILLNESS: This 66-year-old gentleman with a past medical history of multiple medical problems being followed by [facility] and Dr. Colin in the outpatient setting was admitted with multiple complex medical issues including COPD, and as well as sepsis and gastrointestinal bleeding, the patient was treated symptomatically. Patient improved significantly. Antibiotics were given. Patient was seen by multiple consultants during the hospitalization, including Dr. Santana, Dr. Mckinney and Dr. Ramey. The patient also underwent colonoscopy and snare polypectomy by Dr. Santana. Biopsies were done and to be followed up in the outpatient setting by Dr. Santana. On exam, vital signs stable. CARDIOVASCULAR: S1, S2 muffled. RESPIRATORY: Breath sounds diminished at the bases. A few scattered rhonchi and crackles. ABDOMEN: Soft. Nervous system: No focal deficits. Lab-anthony, hemoglobin stable at 11.7. BMP was noted. The patient will be discharged in stable condition with the following advice and medications: 1. Diet is cardiac. 2. Activity limited until follow up. 3. Follow-up with Dr. Colin in 2 to 3 days. 4. CBC, BMP. 5. Follow-up with PT and INR. 6. Follow up with Dr. Santana and Dr. Higuera and at [facility]. 7. Albuterol HFA 1 puff q.i.d. p.r.n. 8. Albuterol inhaler q.i.d. and p.r.n. 9. Cordarone 200 mg p.o. b.i.d. 10. Augmentin 875 mg/120 p.o. b.i.d. for 5 days. 11. Artificial tears p.r.n. 12. Aspirin 81 mg daily. 13. Lipitor 40 mg at bedtime. 14. Brimonidine Alphagan 0.2 1 drop both eyes. 15. Symbicort 160/4.5, 2 puffs b.i.d. 16. Diltiazem ER 240 mg p.o. daily. 17. Colace 100 milligrams p.o. daily. 18. Iron sulfate 320 mg p.o. daily. 19. Folic acid 1 mg daily. 20. Lasix 40 mg b.i.d. 21. [place] 5 mg q.6 p.r.n. 22. Lopressor 100 mg b.i.d. 23. Multivitamins one p.o. daily. 24. Prilosec 20 mg b.i.d. 25. Klor-Con 20 meq p.o. daily. 26. Mirapex 0.25 mg q.h.s. 27. Lyrica 50 mg p.o. b.i.d. 28. Thiamine 100 mg p.o. daily. 29. Spiriva 1 puff daily. 30. Vitamin A and C1 p.o. daily. 31. Coumadin 4 mg Tuesday, Tuesday, , Tuesday. 32. Zonegran 50 mg p.o. b.i.d. 33. Prednisone 5 mg p.o. daily. 34. requip 0.5 mg q.h.s. Once again the patient will be discharged in a stable condition with guarded prognosis. CBC, BMP, PT/INR and continue to follow up follow-up with Dr. Santana as advised. [facility]
--- NOTE | 2016-08-31 10:46 | P.PN ---
Subjective Principal diagnosis: Exacerbation of COPD, pneumonia, diastolic heart failure. Progress note is being dictated 08/30/2016 This is 66-year-old gentleman with history of prior to coronary placement and also known aneurysm of the ascending aorta being followed with a clerk of superior court at [facility] was admitted with increasing shortness of breath and exacerbation of COPD. Patient also has diastolic congestive heart failure. In the hospital patient was noted have GI bleeding. Patient had evaluation by colonoscopy and was noted to have diverticulosis and polyps. Patient was treated with multiple medications with improvement of his symptomatology. He is being discharged home. Patient has the option of following with his own clerk of superior court at [facility]. If he wants to establish locally, we'll make an appointment to see Dr. Meng. Objective - Vital Signs Vital signs: Vital Signs Temp 97.8 F 08/30/16 15:00 Pulse 86 08/30/16 15:50 Resp 18 08/30/16 15:00 BP 130/72 08/30/16 15:00 Pulse Ox 93 L 08/30/16 15:00 Intake & Output 08/30/16 08/31/16 08/31/16 18:59 06:59 18:59 Other: Voiding Method Toilet Urinal - Exam GENERAL EXAM: Patient is alert and oriented and doesn't appear to be in any acute distress HEENT: Normocephalic. Normal reaction of pupils, equal size, NECK: No masses, no nuchal rigidity. CHEST: No chest wall deformity. LUNGS: Diminished breath sounds. HEART: S1 and S2 normal . ABDOMEN: No hepatosplenomegaly, normal bowel sounds, no guarding or rigidity. SKIN: No rashes CENTRAL NERVOUS SYSTEM: No focal deficits. EXTREMITIES: No cyanosis, clubbing or edema. - Labs CBC & Chem 7: 08/30/16 07:49 08/30/16 07:49 Labs: Microbiology - Last 24 Hours (Table) 08/25/16 12:24 Blood Culture - Preliminary Blood No Growth after 120 hours 08/26/16 08:30 Blood Culture - Preliminary Blood No Growth after 96 hours Assessment and Plan (1) Pneumonia Status: Acute (2) Respiratory failure Status: Acute (3) Acute exacerbation of chronic obstructive pulmonary disease (COPD) Status: Acute (4) Aortic aneurysm Status: Acute (5) Atrial fibrillation Status: Acute (6) Cor pulmonale Status: Acute (7) Positive blood cultures Status: Acute Plan: Patient is feeling better. Most probably he'll be discharged home. He'll continue current medical therapy. Follow-up is with his own clerk of superior court or make an appointment to see Dr. Meng as an outpatient
== END 2016-08-30 16:55 | disposition home or self-care (01) | DRG 871 ==
LOC: EC 17:31 → 6SEL 20:39 → 6ICU 08-23 05:13 → 5MS5E 08-23 15:09
PROVIDERS: ADMIT Internal Medicine; ATTEND Internal Medicine
PROC: 0DBM8ZZ Excision of Descending Colon, Via Natural or Artificial Opening Endoscopic (ICD-10-PCS; principal; 2016-08-28 08:20)
PROC: 0DBL8ZZ Excision of Transverse Colon, Via Natural or Artificial Opening Endoscopic (ICD-10-PCS; principal; 2016-08-28 08:20)
PROC: 0DBK8ZZ Excision of Ascending Colon, Via Natural or Artificial Opening Endoscopic (ICD-10-PCS; principal; 2016-08-28 08:20)
DX: A41.81 Sepsis due to Enterococcus (principal); I50.33 Acute on chronic diastolic (congestive) heart failure; J96.21 Acute and chronic respiratory failure with hypoxia; E87.2 Acidosis; D68.32 Hemorrhagic disorder due to extrinsic circulating anticoagulants; J18.9 Pneumonia, unspecified organism; I48.92 Unspecified atrial flutter; I27.2 Other secondary pulmonary hypertension; I48.2 Chronic atrial fibrillation; J96.22 Acute and chronic respiratory failure with hypercapnia; J44.0 Chronic obstructive pulmonary disease with (acute) lower respiratory infection; J44.1 Chronic obstructive pulmonary disease with (acute) exacerbation; K91.840 Postprocedural hemorrhage of a digestive system organ or structure following a digestive system procedure; B96.20 Unspecified Escherichia coli [E. coli] as the cause of diseases classified elsewhere; D12.2 Benign neoplasm of ascending colon; D12.3 Benign neoplasm of transverse colon; D12.4 Benign neoplasm of descending colon; D63.8 Anemia in other chronic diseases classified elsewhere; T45.515A Adverse effect of anticoagulants, initial encounter; E78.5 Hyperlipidemia, unspecified; F17.200 Nicotine dependence, unspecified, uncomplicated; H35.30 Unspecified macular degeneration; I10 Essential (primary) hypertension; I25.10 Atherosclerotic heart disease of native coronary artery without angina pectoris; I27.81 Cor pulmonale (chronic); I71.9 Aortic aneurysm of unspecified site, without rupture; K21.9 Gastro-esophageal reflux disease without esophagitis; K57.30 Diverticulosis of large intestine without perforation or abscess without bleeding; R65.20 Severe sepsis without septic shock; Y83.8 Other surgical procedures as the cause of abnormal reaction of the patient, or of later complication, without mention of misadventure at the time of the procedure; Z79.01 Long term (current) use of anticoagulants; Z79.82 Long term (current) use of aspirin; Z82.49 Family history of ischemic heart disease and other diseases of the circulatory system; Z85.46 Personal history of malignant neoplasm of prostate; Z86.718 Personal history of other venous thrombosis and embolism; Z87.01 Personal history of pneumonia (recurrent); Z95.1 Presence of aortocoronary bypass graft; Z95.3 Presence of xenogenic heart valve; Z79.899 Other long term (current) drug therapy
CPT/HCPCS: 36415; 45385; 71010; 80048; 80053; 81001; 82272; 82550; 82553; 83605; 83735; 83880; 84484; 85025; 85027; 85610; 85730; 86850; 86900; 86901; 87040; 87070; 87077; 87086; 87186; 87205; 87502; 88305; 93005; 94640; 94660; 94760; 96365; 96366; 96367; 96375; 99153; 99291

== ENCOUNTER 2016-10-22 15:57 | Inpatient (IN) | payer MEDICARE, BC ==
[2016-10-22] MEDS ORDERED: IPRATROPIUM-ALBUTEROL 3 ML NEB INHALATION STA (16:40)
[2016-10-22] MEDS ORDERED: SODIUM CHLORIDE 0.9% 1,000 ML IV STA ×3 (16:40→17:59)
[2016-10-22] MEDS ORDERED: ACETAMINOPHEN IV (For NPO) 1,000 MG in EMPTY BAG 1 BAG IVPB STA (16:40)
[2016-10-22] MEDS ORDERED: MORPHINE SULFATE 4 MG/ML SYRINGE IV PRN (16:40)
[2016-10-22] MEDS ORDERED: KETOROLAC 30 MG/ML 1 ML VIAL IVP STA (16:40)
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
[2016-10-22 17:09] LABS: Anisocytosis Slight; Basophils # (A) 0.2 k/uL (0-0.2); Basophils % (A) 2 %; CHCM 31.4; Eosinophils # (A) 0.1 k/uL (0-0.7); Eosinophils % (A) 1 %; HCT 42.5 % (39.0-53.0); HDW 2.57; HGB 13.6 gm/dL (13.0-17.5); Hypochromasia Slight; Luc # (Auto) 0.35; Luc % (Auto) 3; Lymphocytes # (A) 1.1 k/uL (1.0-4.8); Lymphocytes % (A) 10 %; MCH 29.7 pg (25.0-35.0); MCV 92.8 fL (80.0-100.0); Mean Platelet Volume 8.4; Monocytes # (A) 0.6 k/uL (0-1.0); Monocytes % (A) 5 %; Neutrophils # (A) 8.7 k/uL (1.3-7.7); Neutrophils % (A) 79 %; RBC 4.58 m/uL (4.30-5.90); RDW 18.3 % (11.5-15.5); WBC (Perox) 11.27
[2016-10-22 17:18] LABS: Partial Thromboplastin Time 41.2 sec (22.0-30.0)
[2016-10-22 17:20] LABS: ALT 49 U/L (21-72); AST 94 U/L (17-59); Alkaline Phosphatase 204 U/L (38-126); Anion Gap 11 mmol/L; Blood Urea Nitrogen 14 mg/dL (9-20); Calcium 9.3 mg/dL (8.4-10.2); Carbon Dioxide 35 mmol/L (22-30); Chloride 98 mmol/L (98-107); Glucose 113 mg/dL (74-99); INR 2.7 (<1.1); Magnesium 1.9 mg/dL (1.6-2.3); Non-African American GFR(MDRD) >60 (>60 ml/min/1.73 sqM); Phosphorous 3.5 mg/dL (2.5-4.5); Potassium 5.4 mmol/L (3.5-5.1); Sodium 144 mmol/L (137-145); Total Bilirubin 1.1 mg/dL (0.2-1.3); Total Protein 7.9 g/dL (6.3-8.2)
[2016-10-22 17:21] LABS: Prothrombin Time 25.8 sec (9.0-12.0)
[2016-10-22 17:32] LABS: Creatine Kinase 34 U/L (55-170)
[2016-10-22 17:34] LABS: Appearance,Urine Clear (Clear); Bilirubin,Urine Negative (Negative); Glucose,Urine (UA) Negative (Negative); Ketones,Urine Negative (Negative); Leukocyte Esterase,Urine Negative (Negative); Nitrite,Urine Negative (Negative); Protein,Urine Negative (Negative); Specific Gravity,Urine 1.007 (1.001-1.035); UA Billing (MACRO vs. MICRO) CHEM; Urobilinogen,Urine <2.0 mg/dL (<2.0)
[2016-10-22 17:44] LABS: Creatine Kinase MB 0.6 ng/mL (0.0-2.4); Troponin I <0.012 ng/mL (0.000-0.034)
[2016-10-22] MEDS ORDERED: SODIUM CHLORIDE 0.9% 500 ML IV STA (17:59)
--- NOTE | 2016-10-22 18:18 | XR ---
EXAMINATION TYPE: XR ribs RT w pa chest xray DATE OF EXAM: 10/22/2016 6:10 PM COMPARISON: 08/25/2016 HISTORY: Right-sided rib pain TECHNIQUE: 5 views FINDINGS: There is mild coarsening of interstitial markings. There is no heart failure. There are jonny rnal wires. Costophrenic angles are clear. There is no pleural effusion or pneumothorax. There are cl ips at the right upper anterior chest wall. I see no displaced rib fracture. IMPRESSION: No rib fracture seen. Mild pulmonary fibrotic changes. There is clearing of the pneumonia and pleural fluid on the right side compared to old exam.
[2016-10-22] MEDS ORDERED: PIPERACILLIN-TAZOBACTAM 3.375 GM in DEXTROSE/WATER 1 50ML.BAG IVPB STA (18:44)
[2016-10-22] MEDS ORDERED: PNEUMONIA PROTOCOL UTILIZED 1 EACH MISC PO PRN (18:44)
[2016-10-22] MEDS ORDERED: LEVOFLOXACIN 750MG-D5W PMX 750 MG in DEXTROSE/WATER 1 150ML.BAG IVPB STA (18:44)
[2016-10-22] MEDS: IPRATROPIUM-ALBUTEROL 3 ML NEB INHALATION SCH (21:05)
[2016-10-22] MEDS: SODIUM CHLORIDE 0.9% 1,000 ML IV SCH (21:41)
[2016-10-23] MEDS ORDERED: ALBUTEROL NEBULIZED 2.5 MG/3 ML INHALATION PRN (02:50)
[2016-10-23] MEDS: PIPERACILLIN-TAZOBACTAM 3.375 GM in DEXTROSE/WATER 1 50ML.BAG IVPB SCH ×2 (05:11→16:35)
[2016-10-23] MEDS ORDERED: TIOTROPIUM 18 MCG/PUFF INHALER INHALATION SCH (08:00)
[2016-10-23] MEDS: ARTIFICIAL TEARS-HYPROMELLOSE DROPS 15 ML BTL BOTH EYES SCH ×4 (08:15→21:47)
[2016-10-23] MEDS: PANTOPRAZOLE 40 MG TABLET PO SCH (08:15)
[2016-10-23] MEDS: BRIMONIDINE TARTRATE 0.2% DROPS 5 ML BTL BOTH EYES SCH ×2 (08:16→21:36)
[2016-10-23] MEDS: ASPIRIN 81 MG CHEW PO SCH (08:16)
[2016-10-23] MEDS: FERROUS SULFATE 325 MG TAB PO SCH (08:17)
[2016-10-23] MEDS: predniSONE 5 MG TAB PO SCH (08:18)
[2016-10-23] MEDS: POTASSIUM CHLORIDE ER 20 MEQ TAB.ER PO SCH (08:18)
[2016-10-23] MEDS: MULTIVITAMINS, THERA 1 EACH TAB PO SCH (08:18)
[2016-10-23] MEDS: PREGABALIN 50 MG CAP PO SCH ×2 (08:18→21:39)
[2016-10-23] MEDS: METOPROLOL TARTRATE 50 MG TAB PO SCH ×2 (08:18→21:39)
[2016-10-23] MEDS: FUROSEMIDE 40 MG TAB PO SCH ×2 (08:18→21:39)
[2016-10-23] MEDS: ZONISAMIDE 25 MG CAP PO SCH ×2 (08:19→21:39)
[2016-10-23] MEDS: THIAMINE 100 MG TAB PO SCH (08:19)
[2016-10-23] MEDS: VIT A,C & E-LUTEIN-MINERALS 1 EACH TAB PO SCH (08:19)
[2016-10-23] MEDS ORDERED: DILTIAZEM CD 240 MG CAP.ER.24H PO SCH (09:00)
[2016-10-23] MEDS ORDERED: ENOXAPARIN 40 MG/0.4 ML SYRINGE SQ SCH (09:00)
[2016-10-23] MEDS ORDERED: AMIODARONE 200 MG TAB PO SCH (09:00)
[2016-10-23] MEDS: SYMBICORT 160-4.5 MCG INHALER INHALATION SCH ×2 (09:26→21:15)
[2016-10-23] MEDS: IPRATROPIUM-ALBUTEROL 3 ML NEB INHALATION SCH ×4 (09:26→21:15)
[2016-10-23 10:56] LABS: Anisocytosis Slight; CHCM 28.3; HCT 42.1 % (39.0-53.0); HDW 2.36; HGB 12.2 gm/dL (13.0-17.5); Hypochromasia Marked; MCH 28.8 pg (25.0-35.0); MCHC 29.1 g/dL (31.0-37.0); Macrocytosis Slight; Mean Platelet Volume 7.8; RBC 4.24 m/uL (4.30-5.90); RDW 17.8 % (11.5-15.5)
[2016-10-23 11:00] LABS: MCV 99.3 fL (80.0-100.0)
--- NOTE | 2016-10-23 11:04 | XR ---
EXAMINATION TYPE: XR chest 2V DATE OF EXAM: 10/23/2016 10:27 AM HISTORY: pneumonia. REFERENCE: Previous study dated 10/22/2016. FINDINGS: The lungs are overinflated. The heart is enlarged. The lungs are clear. Pleural spaces are clear. Multiple surgical clips project over the right upper lobe, unchanged from previous. IMPRESSION: 1. COPD. 2. CARDIOMEGALY. 3. POSTOPERATIVE CHANGE.
[2016-10-23 11:18] LABS: Anion Gap 10 mmol/L; Blood Urea Nitrogen 14 mg/dL (9-20); Calcium 8.7 mg/dL (8.4-10.2); Carbon Dioxide 31 mmol/L (22-30); Chloride 102 mmol/L (98-107); Glucose 98 mg/dL (74-99); Non-African American GFR(MDRD) >60 (>60 ml/min/1.73 sqM); Sodium 143 mmol/L (137-145)
[2016-10-23] MEDS ORDERED: FOLIC ACID 1 MG TAB PO SCH (12:00)
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
[2016-10-23] MEDS ORDERED: PIPERACILLIN-TAZOBACTAM 3.375 GM in DEXTROSE/WATER 1 50ML.BAG IVPB SCH ×2 (18:00→18:02)
[2016-10-23] MEDS ORDERED: LEVOFLOXACIN 750MG-D5W PMX 750 MG in DEXTROSE/WATER 1 150ML.BAG IVPB SCH (18:00)
[2016-10-23] MEDS ORDERED: WARFARIN 1 MG TAB PO SCH (19:00)
[2016-10-23] MEDS ORDERED: WARFARIN 3 MG TAB PO SCH (19:00)
[2016-10-23] MEDS ORDERED: ATORVASTATIN 40 MG TAB PO SCH (21:00)
[2016-10-23] MEDS ORDERED: PRAMIPEXOLE 0.25 MG TAB PO SCH (21:00)
[2016-10-23] MEDS: AMIODARONE 200 MG TAB PO SCH (21:38)
--- NOTE | 2016-10-23 21:39 | HP ---
DATE OF ADMISSION: 10/22/2016 CHIEF COMPLAINT: Shortness of breath as well as right-sided chest and fall and as well as fever. HISTORY OF PRESENT ILLNESS: This 66-year-old gentleman with a past history of atrial fibrillation, flutter, history of coronary artery disease, history of chest pain, history of CHF, history of COPD, history of DVT, history of GERD, history of gastrointestinal bleed, hypertension, hyperlipidemia, history of aortic , history of , being followed by in the outpatient setting came to [facility] and was admitted to the hospital for further evaluation and treatment, chronic obstructive pulmonary disease exacerbation as well as pneumonia as well as respiratory failure and Enterococcus faecalis septicemia. The patient improved significantly. Patient went home. Apparently patient fell from two stairs and the patient hit the right chest and the patient is complaining of pain. Rib fracture was negative. The patient had some fever and shortness of breath also present on admission. Started on broad-spectrum IV antibiotics. Patient is feeling much better. Cultures are negative at this time. There is no history of headache, loss of conscious. Dr. Downey's evaluation in progress. PAST MEDICAL HISTORY: 1. History of atrial flutter, atrial fibrillation. 2. History of coronary artery disease. 3. History of congestive heart failure. 4. COPD. 5. DVT. 6. History of GERD. 7. History of GI bleed. 8. Hypertension. 9. History of aortic valve replacement. 10. History of cardiac catheterization. Medications prior to admission include home medications are: 1. Requip 0.5 mg p.o. q.h.s. 2. Prednisone 5 mg p.o. daily. 3. Zonogram 50 mg p.o. b.i.d. 4. Coumadin 3 mg p.o. Tuesday, Tuesday, , Tuesday. 5. Ocuvite 1 p.o. daily. 6. Spiriva 1 p.o. daily. 7. Vitamin B1. 8. Thiamin 100 mg p.o. daily. 9. Lyrica 50 mg p.o. b.i.d. 11. Klor-Con 20 meq p.o. daily. 12. Prilosec 20 mg a.c. breakfast. 13. Multivitamin 1 p.o. daily. 14. Lopressor 100 mg milligrams p.o. daily. 15. Lasix 40 mg b.i.d. 16. Folic acid 1 mg p.o. daily. 17. Iron 320 mg p.o. daily. 18. Diltiazem ER 240 mg p.o. daily. 19. Symbicort 160/4.5, 2 puffs b.i.d. 20. Alphagan 0.2% one drop b.i.d. 21. Lipitor 40 mg q.h.s. 22. Aspirin 81 mg p.o. daily. 23. Artificial tears one drop both eyes q.i.d. 24. Cordarone 200 mg p.o. b.i.d. 25. Ventolin 2.5, q6h p.r.n. 26. Ventolin HFA one puff q6h p.r.n. ALLERGIES: None. FAMILY HISTORY: History of diabetes mellitus in the family. SOCIAL HISTORY: History of alcohol, used to smoke on a daily basis. REVIEW OF SYSTEMS: ENT: No diminished vision. No diminished hearing. CARDIOVASCULAR SYSTEM: S1, S2 muffled. RESPIRATORY: As mentioned earlier. GI: No nausea. : No dysuria. Nervous system: No numbness. Generalized weakness. Allergy/immunology: No asthma, hayfever. MUSCULOSKELETAL: As mentioned earlier. Rheumatology: No history of anemia. ENDOCRINE: Diabetes mellitus . CONSTITUTIONAL: As mentioned earlier. RHEUMATOLOGY: Negative. PSYCHIATRY: As mentioned earlier. PHYSICAL EXAMINATION: The patient is alert and oriented times three. Pulse is 65, blood pressure 116/72, respirations 18, temperature 98.4, pulse ox 92% on 2 L. T-max 100.7. HEENT: Conjunctivae normal. Oral mucosa moist. NECK: No jugular venous distention. No carotid bruit. No thyroid enlargement. CARDIOVASCULAR SYSTEM: S1, S2 normal. No S3. No S4. No murmur. No thrills. RESPIRATORY: Breath sounds diminished at the bases. A few bilateral scattered rhonchi and expiratory wheezing and crackles also heard. ABDOMEN: Soft, nontender. No mass palpable. Minimal tenderness in the right chest. Otherwise, there is no ecchymosis or obvious fractures noted clinically. ABDOMEN: Soft, nontender. No mass or hepatosplenomegaly. Legs: No edema. No swelling. Nervous system: Higher functions as mentioned earlier. Moves all 4 limbs. No focal motor or sensory deficits. LYMPHATICS: No lymph nodes palpable in the neck, axillae or groin. SKIN: No ulcer, rash or bleeding. LABS: WBC 11, hemoglobin is 12.2. Otherwise, INR is 2.7 and sodium 144, potassium 5.4. Glucose 113 and AST is 94. ALT is 49. Alk phos 204. UA noted. Influenza is negative. ASSESSMENT: 1. Shortness of breath, cough and fever, possible acute bronchitis, rule out sepsis. 2. History of recent fall and right . No evidence of fracture. 3. Elevated plasma lactic acid, present on admission rule out sepsis, possibly dehydration. 4. Increased random blood sugar. 5. Increased AST. 6. Increased potassium. 7. Increased WBC. 8. Anemia, normocytic, anemia of chronic disease. 9. History of atrial flutter, fibrillation. 10. History of coronary artery disease. 11. History of congestive heart failure, ejection fraction unknown. 12. History of chronic obstructive pulmonary disease. 13. History of deep venous thrombosis. 15. History of gastroesophageal reflux disease. 16. Gastrointestinal bleed. 17. Hypertension. 18. Hyperlipidemia. 19. History of aortic valve replacement, bioprosthetic aortic valve. 20. Chronic stable aortic dissection at [facility] vascular surgery department. 21. Chronic atrial fibrillation. 22. Moderate pulmonary hypertension. 23. History of prostate cancer. 24. History of deep venous thrombosis right lower leg. 25. History of macular degeneration. 26. History of hepatitis C. 27. History of left arm fracture. 28. History of cardiac catheterization. 29. History of continued nicotine dependence. 30. FULL CODE. RECOMMENDATIONS AND DISCUSSION: In this 66-year-old gentleman who presented with multiple complex medical issues, I would recommend to continue the current medications and continue symptomatic treatment , continue the bronchodilators, I would also continue on broad-spectrum IV antibiotics. Cultures will be continued and followed and Dr. Downey's input appreciated. Prognosis guarded, which I discussed at length with the family understands and agrees. Further recommendations to follow. A copy of dictation being forwarded to Dr. Colin who is the primary physician. [facility]
[2016-10-23] MEDS: SODIUM CHLORIDE 0.9% 1,000 ML IV SCH ×2 (22:34→22:35)
[2016-10-24] MEDS: PIPERACILLIN-TAZOBACTAM 3.375 GM in DEXTROSE/WATER 1 50ML.BAG IVPB SCH ×2 (00:15→09:17)
[2016-10-24] MEDS: SODIUM CHLORIDE 0.9% 1,000 ML IV SCH (00:17)
[2016-10-24] MEDS: IPRATROPIUM-ALBUTEROL 3 ML NEB INHALATION SCH ×2 (07:53→12:17)
[2016-10-24] MEDS: SYMBICORT 160-4.5 MCG INHALER INHALATION SCH (07:55)
[2016-10-24 08:17] LABS: ALT 44 U/L (21-72); AST 64 U/L (17-59); Alkaline Phosphatase 155 U/L (38-126); Anion Gap 7 mmol/L; Blood Urea Nitrogen 12 mg/dL (9-20); Calcium 8.8 mg/dL (8.4-10.2); Carbon Dioxide 31 mmol/L (22-30); Chloride 102 mmol/L (98-107); Glucose 104 mg/dL (74-99); Non-African American GFR(MDRD) >60 (>60 ml/min/1.73 sqM); Sodium 140 mmol/L (137-145); Total Bilirubin 0.8 mg/dL (0.2-1.3); Total Protein 6.5 g/dL (6.3-8.2)
[2016-10-24 08:26] LABS: Anisocytosis Slight; Basophils % (A) 0 %; CH 28.6; CHCM 30.7; Eosinophils # (A) 0.1 k/uL (0-0.7); Eosinophils % (A) 1 %; HCT 37.7 % (39.0-53.0); HDW 2.41; HGB 11.5 gm/dL (13.0-17.5); Hypochromasia Slight; Luc # (Auto) 0.31; Luc % (Auto) 3; Lymphocytes # (A) 0.8 k/uL (1.0-4.8); Lymphocytes % (A) 8 %; MCH 28.6 pg (25.0-35.0); MCHC 30.6 g/dL (31.0-37.0); Mean Platelet Volume 7.8; Monocytes # (A) 0.5 k/uL (0-1.0); Monocytes % (A) 5 %; Neutrophils # (A) 7.8 k/uL (1.3-7.7); Neutrophils % (A) 82 %; RBC 4.03 m/uL (4.30-5.90); RDW 18.2 % (11.5-15.5); WBC 9.5 k/uL (3.8-10.6); WBC (Perox) 10.03
[2016-10-24 08:31] LABS: MCV 93.5 fL (80.0-100.0)
[2016-10-24] MEDS: predniSONE 5 MG TAB PO SCH (08:52)
[2016-10-24] MEDS: VIT A,C & E-LUTEIN-MINERALS 1 EACH TAB PO SCH (08:52)
[2016-10-24] MEDS: ARTIFICIAL TEARS-HYPROMELLOSE DROPS 15 ML BTL BOTH EYES SCH (08:52)
[2016-10-24] MEDS: THIAMINE 100 MG TAB PO SCH (08:52)
[2016-10-24] MEDS: AMIODARONE 200 MG TAB PO SCH (08:52)
[2016-10-24] MEDS: PANTOPRAZOLE 40 MG TABLET PO SCH (08:53)
[2016-10-24] MEDS: METOPROLOL TARTRATE 50 MG TAB PO SCH (08:53)
[2016-10-24] MEDS: ASPIRIN 81 MG CHEW PO SCH (08:53)
[2016-10-24] MEDS: ZONISAMIDE 25 MG CAP PO SCH (08:53)
[2016-10-24] MEDS: FERROUS SULFATE 325 MG TAB PO SCH (08:54)
[2016-10-24] MEDS: FUROSEMIDE 40 MG TAB PO SCH (08:54)
[2016-10-24] MEDS: POTASSIUM CHLORIDE ER 20 MEQ TAB.ER PO SCH (08:54)
[2016-10-24] MEDS: PREGABALIN 50 MG CAP PO SCH (08:54)
[2016-10-24] MEDS: BRIMONIDINE TARTRATE 0.2% DROPS 5 ML BTL BOTH EYES SCH (08:54)
[2016-10-24] MEDS: MULTIVITAMINS, THERA 1 EACH TAB PO SCH (08:54)
[2016-10-24] MEDS ORDERED: DILTIAZEM CD 240 MG CAP.ER.24H PO SCH (09:00)
[2016-10-24 09:51] VITALS: BP 142/62; RESP 18; TEMP 98.3
[2016-10-24 10:21] VITALS: PULSE 72
--- NOTE | 2016-10-24 12:55 | P.PN ---
Subjective Principal diagnosis: Chest wall pain secondary to fall This is a very pleasant 66-year-old gentleman who follows with Dr. Colin and the [place] [facility]. He has a history of atrial fibrillation/flutter, coronary artery disease, aortic valve replacement, chronic stable aortic dissection being followed at [facility], prostate cancer, chronic obstructive pulmonary disease, chronic tobacco dependence, pulmonary hypertension, DVT, hyperlipidemia, hypertension, hepatitis C infection. he presented here yesterday to the emergency room with complaints of right-sided chest pain. 2 days prior he had fallen off his back porch while taking out the garbage. He states he tripped on a step. He denied loss of consciousness. No previous symptoms of dizziness or lightheadedness, no syncope. he did sustain injury to his right knee as well as his right chest wall. The rib pain was increasing over the past couple of days with difficulty in taking a deep breath and he presented for the same. His chest x-ray did not reveal any evidence of acute pulmonary contusion or other abnormalities. Rib x-rays were negative for fractures. he is seen today in consultation on the regular medical floor. He is awake and alert in no acute distress. He states his pain is subsiding. He denies any worsening shortness of breath, cough or congestion. He is maintaining good O2 saturations in the mid 90s on 2 L/m per nasal cannula. His been afebrile. No chest pain, palpitations, lightheadedness or dizziness. He is anxious to go home. Patient was reevaluated today on 10/24/2016, continues to do well, in is better, he has intermittent coughing and wheezing, no fever no chills no hemoptysis. Patient is still anxious to go home likely today. All his labs were reviewed and they were noted to be unremarkable. Objective - Vital Signs Vital signs: Vital Signs Temp 98.3 F 10/24/16 07:00 Pulse 72 10/24/16 08:10 Resp 18 10/24/16 07:00 BP 142/62 10/24/16 07:00 Pulse Ox 93 L 10/24/16 07:00 Intake & Output 10/23/16 10/24/16 10/24/16 18:59 06:59 18:59 Intake Total 800 1200 Balance 800 1200 Weight 85 kg Intake: IV 1200 Levofloxacin 750Mg-D5w 150 Pmx 750 mg In Dextrose/ Water 1 150ml.bag @ 100 mls/hr IVPB Q24H JAYLA Rx#: [id number] Sodium Chloride 0.9% 1, 1050 000 ml @ 100 mls/hr IV . Q10H JAYLA Rx#:[id number] Intake, IV Titration 800 Amount Sodium Chloride 0.9% 1, 800 000 ml @ 100 mls/hr IV . Q10H JAYLA Rx#:[id number] Other: Voiding Method Toilet Toilet Toilet - Exam General appearance: alert, in no apparent distress Head exam: Unremarkable no evidence of trauma Eye exam: Unremarkable Neck exam: No neck masses no JVD, no stridor. Respiratory exam: Present: normal lung sounds bilaterally, minimal wheezing on forced expiratory maneuver only Cardiovascular Exam: Present: regular rate, normal rhythm, normal heart sounds. Absent: systolic murmur, diastolic murmur, rubs, gallop, clicks GI/Abdominal exam: Present: soft, normal bowel sounds. Absent: distended, tenderness, guarding, rebound, rigid Extremities exam: Evidence of ecchymosis around the right knee area Back exam: Present: normal inspection Neurological exam: Present: alert, oriented X3, CN II-XII intact Psychiatric exam: Present: normal affect, normal mood Skin exam: Ecchymosis noted around the right knee otherwise unremarkable. - Labs CBC & Chem 7: 10/24/16 07:36 10/24/16 07:36 Labs: Abnormal Lab Results - Last 24 Hours (Table) 10/24/16 10/24/16 Range/Units 07:36 07:36 RBC 4.03 L (4.30-5.90) m/uL Hgb 11.5 L (13.0-17.5) gm/dL Hct 37.7 L (39.0-53.0) % MCHC 30.6 L (31.0-37.0) g/dL RDW 18.2 H (11.5-15.5) % Plt Count 147 L (150-450) k/uL Neutrophils # 7.8 H (1.3-7.7) k/uL Lymphocytes # 0.8 L (1.0-4.8) k/uL Carbon Dioxide 31 H (22-30) mmol/L Glucose 104 H (74-99) mg/dL AST 64 H (17-59) U/L Alkaline Phosphatase 155 H (38-126) U/L Albumin 3.3 L (3.5-5.0) g/dL Microbiology - Last 24 Hours (Table) 10/23/16 16:40 Sputum Culture - Preliminary Sputum Assessment and Plan Plan: #1 Right-sided chest wall pain secondary to trip and fall. No acute pulmonary process or rib fractures on chest x-ray. #2 Chronic obstructive pulmonary disease, presently inactive and stable. #3 Chronic and ongoing tobacco dependence. #4 Moderate pulmonary hypertension, RVSP 52.34 mmHg with severe severely enlarged right ventricle and previous echocardiogram. #5 Chronic diastolic congestive heart failure. #6 Stable dissection of the descending aorta is seen on most recent computed tomography scan, being followed in the outpatient setting. #7 History of aortic valve replacement, bypass prosthetic. #8 Coronary artery disease. #9 Hypertension. #10 Hyperlipidemia. #11 Chronic atrial fibrillation, anticoagulated with warfarin. Recommendation: Continue present treatment plan, consider discharge planning today and follow up on outpatient basis. Time with Patient: Less than 30
--- NOTE | 2016-10-24 17:03 | DS ---
DATE OF ADMISSION: 10/22/2016 DATE OF DISCHARGE: 10/24/2016 DATE OF SERVICE: 10/24/2016 FINAL DIAGNOSES: 1. Shortness of breath, cough and fever, possibly acute purulent tracheobronchitis, sepsis unlikely. 2. History of recent fall and right chest pain. No evidence of fracture. 3. Elevated plasma lactic acid present on admission improved, possibly dehydration. 4. Increased random blood sugar. 5. Increased AST. 6. Increased potassium. 7. Increased WBC. 8. Normocytic anemia of chronic disease. 9. History of atrial fibrillation. 10. History of coronary artery disease. 11. History of congestive heart failure with ejection fraction unknown. 12. History of chronic obstructive pulmonary disease. 13. History of deep venous thrombosis. 14. History of gastroesophageal reflux disease. 15. History of gastrointestinal bleed. 16. Hypertension history essential. 17. Hyperlipidemia. 18. History of aortic artery repair and bioprosthetic aortic valve. 19. Chronic stable aortic dissection at [facility], Vascular Surgery Department. 20. Chronic atrial fibrillation. 21. Moderate pulmonary hypertension. 22. History of prostate cancer. 23. History of deep venous thrombosis of the right leg. 24. History of macular degeneration. 25. History of hepatitis C. 26. History of left arm fracture. 27. History of cardiac catheterization. 28. History of continued ongoing nicotine dependence. 29. FULL CODE. DISCHARGE DISPOSITION: The patient will be discharged in a stable condition with guarded prognosis. Total time taken 35 minutes. The patient is extremely keen on going home. HISTORY OF PRESENT ILLNESS: This is a 66-year-old gentleman with a past medical history of multiple medical problems, admitted with shortness of breath, cough, fever and right-sided chest pain after a fall. Patient treated symptomatically, given broad-spectrum IV antibiotics. The white count improved from 11 to 9.5 with antibiotics. Otherwise, patient was seen by Dr. Downey, the discharge lactic acid 4.6 improved 1.4. On exam, vitals are stable. CARDIOVASCULAR SYSTEM: S1, S2, muffled. RESPIRATORY: A few scattered rhonchi, no crackles. NERVOUS SYSTEM: No focal deficits. Patient will be discharged in a stable condition with the following advice; 1. Diet is cardiac. 2. Activity limited until followup. 3. Follow up with Dr. Rangel Colin in 2 to 3 days. 4. Follow up with Dr. Downey as advised. The medications are: 1. Albuterol inhaler 1 puff q.i.d. p.r.n. 2. Ventolin nebulizer 2.5 q.i.d. and p.r.n. 3. Cordarone 200 mg p.o. b.i.d. 4. Augmentin 875 mg p.o. b.i.d. for 5 days. 5. Artificial tears p.r.n. 6. Aspirin 81 mg daily. 7. Lipitor 40 mg q.h.s. 8. Alphagan 0.2% one drop both eyes. 9. Symbicort 160/4.5 two puffs b.i.d. 10. Diltiazem 240 mg p.o. daily. 11. Iron sulfate 325 mg daily. 12. Folic acid 1 mg p.o. daily. 13. Lasix 40 mg p.o. b.i.d. 14. Lopressor 100 mg p.o. b.i.d. 15. Multivitamin 1 p.o. daily. 16. Prilosec 20 mg p.o. daily. 17. Klor-Con 20 mEq p.o. daily. 18. Verapamil 0.25 mg q.h.s. 19. Lyrica 50 mg p.o. b.i.d. 20. Thiamine 100 mg p.o. daily. 21. Spiriva 1 puff daily. 22. Vitamin A and C 1 p.o. daily. 23. Coumadin 1 mg Tuesday, Tuesday, , Tuesday and 3 mg the other days. 24. Zonegran 50 mg p.o. b.i.d. 25. Prednisone 5 mg p.o. daily. 26. Requip 0.5 mg p.o. q.h.s. CBC, BMP, PT and INR and continue to monitor closely.
== END 2016-10-24 14:25 | disposition home or self-care (01) | DRG 604 ==
LOC: EC 15:57 → 5MS5E 18:43
PROVIDERS: ADMIT Hospitalist; ATTEND Hospitalist
DX: S20.211A Contusion of right front wall of thorax, initial encounter (principal); I71.00 Dissection of unspecified site of aorta; J96.91 Respiratory failure, unspecified with hypoxia; J44.0 Chronic obstructive pulmonary disease with (acute) lower respiratory infection; I50.32 Chronic diastolic (congestive) heart failure; I48.2 Chronic atrial fibrillation; I11.0 Hypertensive heart disease with heart failure; E87.8 Other disorders of electrolyte and fluid balance, not elsewhere classified; E11.9 Type 2 diabetes mellitus without complications; D63.8 Anemia in other chronic diseases classified elsewhere; E86.0 Dehydration; I27.2 Other secondary pulmonary hypertension; Z99.81 Dependence on supplemental oxygen; I25.10 Atherosclerotic heart disease of native coronary artery without angina pectoris; R74.8 Abnormal levels of other serum enzymes; S80.01XA Contusion of right knee, initial encounter; J20.9 Acute bronchitis, unspecified; R74.0 Nonspecific elevation of levels of transaminase and lactic acid dehydrogenase [LDH]; R50.9 Fever, unspecified; K21.9 Gastro-esophageal reflux disease without esophagitis; F17.200 Nicotine dependence, unspecified, uncomplicated; E78.5 Hyperlipidemia, unspecified; D72.829 Elevated white blood cell count, unspecified; H35.30 Unspecified macular degeneration; Z83.3 Family history of diabetes mellitus; Z79.01 Long term (current) use of anticoagulants; Z79.82 Long term (current) use of aspirin; Z87.81 Personal history of (healed) traumatic fracture; Z85.46 Personal history of malignant neoplasm of prostate; Z86.718 Personal history of other venous thrombosis and embolism; Z79.899 Other long term (current) drug therapy; Z86.79 Personal history of other diseases of the circulatory system; Z82.49 Family history of ischemic heart disease and other diseases of the circulatory system; Z87.01 Personal history of pneumonia (recurrent); Z79.51 Long term (current) use of inhaled steroids; Z79.52 Long term (current) use of systemic steroids; Z95.3 Presence of xenogenic heart valve; Z90.79 Acquired absence of other genital organ(s); Z86.010 Personal history of colon polyps; Z87.828 Personal history of other (healed) physical injury and trauma; Z86.19 Personal history of other infectious and parasitic diseases; Z87.19 Personal history of other diseases of the digestive system; W10.8XXA Fall (on) (from) other stairs and steps, initial encounter; Y93.H9 Activity, other involving exterior property and land maintenance, building and construction; Y92.018 Other place in single-family (private) house as the place of occurrence of the external cause
CPT/HCPCS: 36415; 71020; 80048; 80053; 81003; 82550; 82553; 83605; 83735; 84100; 84484; 85025; 85027; 85610; 85730; 87040; 87070; 87086; 87205; 87502; 93005; 94640; 96361; 96365; 96375; 99285

== ENCOUNTER 2016-12-10 12:30 | Emergency (ER) | payer MEDICARE, BC ==
[2016-12-10 14:16] LABS: ALT 49 U/L (21-72); AST 89 U/L (17-59); Alkaline Phosphatase 209 U/L (38-126); Amylase 57 U/L (30-110); Anion Gap 9 mmol/L; Blood Urea Nitrogen 11 mg/dL (9-20); Calcium 8.9 mg/dL (8.4-10.2); Carbon Dioxide 33 mmol/L (22-30); Chloride 97 mmol/L (98-107); Glucose 100 mg/dL (74-99); Magnesium 1.7 mg/dL (1.6-2.3); Non-African American GFR(MDRD) >60 (>60 ml/min/1.73 sqM); Potassium 4.2 mmol/L (3.5-5.1); Sodium 139 mmol/L (137-145); Total Bilirubin 0.7 mg/dL (0.2-1.3); Total Protein 7.9 g/dL (6.3-8.2)
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
[2016-12-10 14:35] LABS: Basophils # (A) 0.1 k/uL (0-0.2); Basophils % (A) 1 %; CH 29.2; CHCM 32.6; Eosinophils # (A) 0.4 k/uL (0-0.7); Eosinophils % (A) 5 %; HCT 41.9 % (39.0-53.0); HDW 3.15; HGB 13.2 gm/dL (13.0-17.5); Hypochromasia Slight; Luc # (Auto) 0.24; Luc % (Auto) 3; Lymphocytes # (A) 1.1 k/uL (1.0-4.8); Lymphocytes % (A) 12 %; MCH 28.3 pg (25.0-35.0); MCHC 31.5 g/dL (31.0-37.0); MCV 89.8 fL (80.0-100.0); Mean Platelet Volume 7.2; Monocytes # (A) 0.8 k/uL (0-1.0); Monocytes % (A) 8 %; Neutrophils # (A) 6.6 k/uL (1.3-7.7); Neutrophils % (A) 72 %; RBC 4.66 m/uL (4.30-5.90); RDW 15.3 % (11.5-15.5); WBC 9.2 k/uL (3.8-10.6); WBC (Perox) 8.49
[2016-12-10] MEDS ORDERED: HYDROmorphone 1 MG/ML 1 ML SYRINGE IVP STA (14:47)
[2016-12-10] MEDS ORDERED: SODIUM CHLORIDE 0.9% 1,000 ML IV ONE (14:47)
[2016-12-10] MEDS ORDERED: RX INFO: IV CONTRAST WAS GIVEN 1 EACH MISC MISCELLANE PRN (14:47)
--- NOTE | 2016-12-10 15:33 | CT ---
EXAMINATION TYPE: CT abdomen pelvis w con DATE OF EXAM: 12/10/2016 3:18 PM REFERENCE: Previous study dated 10/07/2015. HISTORY: Pain HISTORY: Right lower quadrant pain x 4-5 days. REFERENCE: NONE CT DLP: 1582.00 mGy Automated exposure control for dose reduction was used. TECHNIQUE: Helical acquisition through the abdomen and pelvis was obtained following the oral ingesti on of without Oral Contrast and following intravenous administration of 100 mL of Omnipaque 300. The data was reformatted in axial, coronal and sagittal projections. FINDINGS: Visualized portions of the lungs are clear. There is no pleural or pericardial fluid. The heart is enlarged. There is coronary artery calcification as well as other vascular calcifications. There is a ventral hernia in the upper abdomen which contains fat only and has a mouth measuring 8.5 cm. There are gallstones within the gallbladder. The liver is enlarged measuring 19.4 cm. The spleen is n ormal. Both adrenal glands are normal. There are 2 small hypoattenuating lesions in the upper pole of the right kidney. The largest measures 11 mm. There is a subcentimeter hypodensity in the mid polar region of the left kidney too small acc urately characterize. The pancreas is unremarkable. There is aneurysmal dilatation of the descending thoracic aorta which has a maximal transverse diamet er of 5 cm. Previously this measured 4.9 cm. 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 This does not extend distally. There is no significant retroperitoneal, iliac or inguinal jalil nopathy. The bladder is unremarkable. There is diverticular change within the sigmoid colon without radiographic evidence of diverticulitis . The appendix is not visualized. Small bowel loops are normal. There is no free fluid and there is no free air. There is a stable wedge compression fracture of T11 unchanged from previous. This hypertrophic spondy losis most marked at L2-3 and L3-4. There is a mild retrograde listhesis of L2 on L3. IMPRESSION: 1. CARDIOMEGALY. 2. VENTRAL ABDOMINAL HERNIA CONTAINING FAT ONLY WITH A MOUTH MEASURING 8.5 CM. 3. BILATERAL HYPODENSITIES WITHIN THE KIDNEYS LIKELY REPRESENTING SMALL CYSTS. THIS COULD BE CONFIRME D WITH ULTRASOUND. 4. ANEURYSMAL DILATATION OF THE DESCENDING THORACIC AORTA. 5. LIMITED DISSECTION OF THE SUPRARENAL ABDOMINAL AORTA. 6. UNCOMPLICATED DIVERTICULOSIS OF THE SIGMOID COLON. 7. DEGENERATIVE CHANGES WITHIN THE SPINE.
--- NOTE | 2016-12-10 16:31 | US ---
EXAMINATION TYPE: US abdomen limited DATE OF EXAM: 12/10/2016 4:07 PM COMPARISON: None. CLINICAL HISTORY: Pain. Right side pain, NPO EXAM MEASUREMENTS: Liver Length: 16.8 cm Gallbladder Wall: 0.3 cm CBD: 0.3 cm Right Kidney: 12.1 x 5.1 x 4.0 cm Suboptimal visualization due to bowel gas and patient body habitus Pancreas: Echogenic. Main pancreatic duct = 3.0 mm. Head and tail not well seen due to overlying andrew wel gas. Liver: echogenic, slightly heterogenous Gallbladder: Multiple mobile stones. Echogenic focal lesion seen adjacent to wall = 0.3 x 0.3 cm Evidence for sonographic Loera's sign: neg CBD: wnl Right Kidney: wnl as visualized The pancreas is poorly visualized. The liver is normal in size without biliary dilatation. It is echogenic and likely fatty infiltrated. There are multiple gallstones within the gallbladder. There is a possible 2.6 mm polyp along the ante rior wall of the gallbladder wall. Gallbladder wall measures 3.3 mm. The distal common hepatic duct m easures 3 mm. The right kidney appears normal. IMPRESSION: 1. CHOLELITHIASIS AND POSSIBLE GALLBLADDER POLYPS. 2. FATTY INFILTRATION OF THE LIVER.
[2016-12-10 17:14] VITALS: BP 159/65; PULSE 58; RESP 16; TEMP 97.8
== END 2016-12-10 17:44 | disposition home or self-care (01) ==
LOC: EC 12:30
DX: K80.20 Calculus of gallbladder without cholecystitis without obstruction (principal); K76.0 Fatty (change of) liver, not elsewhere classified; I71.2 Thoracic aortic aneurysm, without rupture; R06.2 Wheezing; R10.31 Right lower quadrant pain; E78.5 Hyperlipidemia, unspecified; I11.0 Hypertensive heart disease with heart failure; I48.91 Unspecified atrial fibrillation; J44.9 Chronic obstructive pulmonary disease, unspecified; H57.9 Unspecified disorder of eye and adnexa; F17.200 Nicotine dependence, unspecified, uncomplicated; Z79.82 Long term (current) use of aspirin; Z79.51 Long term (current) use of inhaled steroids; Z79.01 Long term (current) use of anticoagulants; Z79.899 Other long term (current) drug therapy; Z85.46 Personal history of malignant neoplasm of prostate; Z86.79 Personal history of other diseases of the circulatory system; Z98.890 Other specified postprocedural states
CPT/HCPCS: 36415; 80053; 82150; 83690; 83735; 85025; 76705; 74177; 99284; 96374; 96361 ×3; J1170; Q9967

== ENCOUNTER 2017-01-09 16:46 | Inpatient (IN) | payer MEDICARE, BC ==
[2017-01-09 17:37] LABS: Basophils # (A) 0.1 k/uL (0-0.2); Basophils % (A) 1 %; CH 27.7; CHCM 31.2; Eosinophils # (A) 0.3 k/uL (0-0.7); Eosinophils % (A) 3 %; HCT 35.6 % (39.0-53.0); HDW 3.09; Hypochromasia Moderate; Luc # (Auto) 0.28; Luc % (Auto) 3; Lymphocytes # (A) 1.2 k/uL (1.0-4.8); Lymphocytes % (A) 13 %; MCH 27.6 pg (25.0-35.0); MCV 89.1 fL (80.0-100.0); Mean Platelet Volume 7.7; Monocytes # (A) 0.7 k/uL (0-1.0); Monocytes % (A) 8 %; Neutrophils # (A) 6.4 k/uL (1.3-7.7); Neutrophils % (A) 72 %; RDW 15.1 % (11.5-15.5); WBC (Perox) 9.35
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
[2017-01-09 17:47] LABS: ALT 42 U/L (21-72); AST 68 U/L (17-59); Alkaline Phosphatase 180 U/L (38-126); Anion Gap 8 mmol/L; Blood Urea Nitrogen 20 mg/dL (9-20); Calcium 8.7 mg/dL (8.4-10.2); Carbon Dioxide 31 mmol/L (22-30); Chloride 98 mmol/L (98-107); Glucose 92 mg/dL (74-99); Magnesium 1.6 mg/dL (1.6-2.3); Non-African American GFR(MDRD) >60 (>60 ml/min/1.73 sqM); Potassium 4.6 mmol/L (3.5-5.1); Sodium 137 mmol/L (137-145); Total Bilirubin 0.9 mg/dL (0.2-1.3); Total Protein 7.6 g/dL (6.3-8.2)
[2017-01-09 17:49] LABS: INR 2.7 (<1.1); Partial Thromboplastin Time 39.8 sec (22.0-30.0); Prothrombin Time 25.6 sec (9.0-12.0)
--- NOTE | 2017-01-09 17:54 | XR ---
EXAMINATION TYPE: XR chest 2V DATE OF EXAM: 01/09/2017 COMPARISON: 10/23/2016 HISTORY: Chest pain TECHNIQUE: Frontal and lateral views of the chest are obtained. FINDINGS: Heart is enlarged. There is no gross heart failure. There is some coarsening of interstiti al markings. There are chest leads. There are sternal wires. IMPRESSION: Cardiomegaly. Pulmonary fibrotic changes. No significant change compared to old exam.
[2017-01-09] MEDS ORDERED: ASPIRIN 81 MG CHEW PO STA (18:21)
[2017-01-09] MEDS ORDERED: NITROGLYCERIN SL TABS 0.4 MG TAB SUBLINGUAL PRN (18:21)
[2017-01-09] MEDS ORDERED: methylPREDNISolone SOD SUCCI 125 MG/2 ML VIAL IV STA (18:21)
[2017-01-09 18:23] LABS: Troponin I 0.055 ng/mL (0.000-0.034)
[2017-01-09] MEDS ORDERED: ALBUTEROL NEBULIZED 2.5 MG/3 ML INHALATION STA (18:23)
[2017-01-09] MEDS ORDERED: IPRATROPIUM 0.5 MG/2.5 ML NEBU INHALATION STA (18:23)
[2017-01-09] MEDS: IPRATROPIUM-ALBUTEROL 3 ML NEB INHALATION SCH (20:58)
[2017-01-09 21:32] LABS: Glucose,Whole Blood 186 mg/dL (75-99)
[2017-01-09] MEDS ORDERED: ATORVASTATIN 40 MG TAB PO SCH (21:45)
[2017-01-09] MEDS: SODIUM CHLORIDE 0.9% 1,000 ML IV SCH (22:21)
[2017-01-09] MEDS: AMIODARONE 100 MG TAB PO SCH (22:26)
[2017-01-09] MEDS: METOPROLOL TARTRATE 50 MG TAB PO SCH (22:26)
[2017-01-09] MEDS: FUROSEMIDE 40 MG TAB PO SCH (22:27)
[2017-01-09] MEDS ORDERED: INSULIN LISPRO (humaLOG) 300 UNIT/3 ML VIAL SQ ONE (22:31)
[2017-01-09] MEDS ORDERED: WARFARIN 2 MG TAB PO SCH (22:45)
[2017-01-09] MEDS: PREGABALIN 50 MG CAP PO SCH (22:52)
[2017-01-09] MEDS: methylPREDNISolone SOD SUCCI 125 MG/2 ML VIAL IV SCH (22:59)
[2017-01-09 23:46] LABS: Creatine Kinase MB 0.8 ng/mL (0.0-2.4)
[2017-01-09 23:57] LABS: Troponin I 0.045 ng/mL (0.000-0.034)
[2017-01-10] MEDS ORDERED: WARFARIN 2 MG TAB PO SCH (01:13)
[2017-01-10 06:07] LABS: Glucose,Whole Blood 157 mg/dL (75-99)
[2017-01-10] MEDS: methylPREDNISolone SOD SUCCI 125 MG/2 ML VIAL IV SCH ×4 (06:33→22:59)
[2017-01-10] MEDS: INSULIN LISPRO (humaLOG) 300 UNIT/3 ML VIAL SQ SCH ×4 (06:34→20:35)
[2017-01-10 06:54] LABS: INR 2.3 (<1.1); Prothrombin Time 22.3 sec (9.0-12.0)
[2017-01-10 07:06] LABS: Cholesterol 93 mg/dL (<200); HDL Cholesterol 40 mg/dL (40-60); Triglycerides 58 mg/dL (<150)
[2017-01-10] MEDS: AMIODARONE 100 MG TAB PO SCH (07:42)
[2017-01-10] MEDS: DILTIAZEM CD 240 MG CAP.ER.24H PO SCH (07:43)
[2017-01-10] MEDS: METOPROLOL TARTRATE 50 MG TAB PO SCH ×2 (07:43→20:35)
[2017-01-10] MEDS: SPIRONOLACTONE 25 MG TAB PO SCH (07:43)
[2017-01-10] MEDS: FUROSEMIDE 40 MG TAB PO SCH ×2 (07:43→20:35)
[2017-01-10] MEDS: THIAMINE 100 MG TAB PO SCH (07:43)
[2017-01-10] MEDS: POTASSIUM CHLORIDE ER 20 MEQ TAB.ER PO SCH ×2 (07:43→20:35)
[2017-01-10] MEDS: FOLIC ACID 1 MG TAB PO SCH (07:43)
[2017-01-10] MEDS: MULTIVITAMINS, THERA 1 EACH TAB PO SCH (07:43)
[2017-01-10] MEDS: ASPIRIN 81 MG CHEW PO SCH (07:44)
[2017-01-10 07:45] LABS: Troponin I 0.045 ng/mL (0.000-0.034)
[2017-01-10] MEDS: NICOTINE 21MG/24HR PATCH TRANSDERM SCH (07:46)
[2017-01-10] MEDS: PREGABALIN 50 MG CAP PO SCH ×2 (07:50→20:35)
[2017-01-10] MEDS: SYMBICORT 160-4.5 MCG INHALER INHALATION SCH ×2 (08:10→20:59)
[2017-01-10] MEDS: IPRATROPIUM-ALBUTEROL 3 ML NEB INHALATION SCH ×4 (08:10→20:59)
[2017-01-10] MEDS ORDERED: ASPIRIN 325 MG TAB PO SCH (09:00)
[2017-01-10 09:21] LABS: Hemoglobin A1C 6.3 % (4.2-6.1)
--- NOTE | 2017-01-10 09:46 | P.CRDCN ---
History of Present Illness Consult date: 01/10/17 Requesting physician: Fred Desir Consult reason: chest pain Chief complaint: Chest pain and shortness of breath History of present illness: This is a 66-year-old gentleman with history of severe COPD, chronic persistent atrial fibrillation, prior aortic valve replacement, aortic dissection, being followed by Dr. Pascual at [facility]. History of prior DVT, hepatitis C, hypertension, hyperlipidemia, nicotine dependence. Patient states he quit smoking approximately 5 days ago. He states also that for the past one month or so he has noticed increase in exertional chest pressure and shortness of breath, he also states that he has been more fatigued than usual. Patient states this is been progressively worsening over the past one month to the point where he can only walk a very short distance without experiencing chest pressure with associated shortness of breath. For this reason he came to the emergency room for further evaluation. EKG shows atrial fibrillation with a slow ventricular response. Chest x-ray reveals cardiomegaly with pulmonary fibrotic changes. Hemoglobin 11.0, INR 2.3. Potassium 4.6, BUN 20, creatinine 1.0. AST 68 ALT 42 alk phos 180, troponins 0.055, 0.045, 0.045. BNP level 1320. Most recent echocardiogram with Doppler study was performed in August which revealed an ejection fraction of 50-55%. At the time of my examination this morning, patient denies any chest pressure or heaviness. Blood pressure 138/80 with a heart rate in the 70s, afebrile. Past Medical History Past Medical History: Atrial Fibrillation, Atrial Flutter, Coronary Artery Disease (CAD), Cancer, Chest Pain / Angina, Heart Failure, COPD, Deep Vein Thrombosis (DVT), Eye Disorder, GERD/Reflux, GI Bleed, Hyperlipidemia, Hypertension, Pneumonia Additional Past Medical History / Comment(s): Aortic valve replacement with a bioprosthetic valve, chronic stable aortic dissection as described in the HPI being monitored at [facility] vascular surgery department, chronic atrial fibrillation, moderate degree of pulmonary hypertension based on previous echocardiograms, COPD, previous pneumonia 2008 and 2014, prostate cancer with prostatectomy, DVT R lower leg, macular degeneration , hepatitis C viral infection, left arm fracture, chronic 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 Past Anesthesia/Blood Transfusion Reactions: No Reported Reaction Past Psychological History: No Psychological Hx Reported Smoking Status: Former smoker Past Alcohol Use History: Daily Additional Past Alcohol Use History / Comment(s): started smoking [id number] smokes 1 ppd. He denies any medical marijuana, marijuana or street drug use. He does drink alcohol daily- about 4 mixed drinks per day. 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 pt is a , lives in a single story home has 1 step or a ramp(that his used) and his grandson lives harbor department manager with him., home 02 and nebulizer Past Drug Use History: None Reported - Past Family History Mother Family Medical History: Diabetes Mellitus Additional Family Medical History / Comment(s): Mother at age 74 from diabetic complications. Father Family Medical History: Congestive Heart Failure (CHF) Additional Family Medical History / Comment(s): Father at age 91 yrs. Medications and Allergies Home Medications Medication Instructions Recorded Confirmed Type Amiodarone HCl [Cordarone] 200 mg PO BID 08/23/14 01/09/17 History Diltiazem HCl [Diltiazem 24Hr ER] 240 mg PO DAILY 08/23/14 01/09/17 History Metoprolol Tartrate [Lopressor] 100 mg PO BID 08/23/14 01/09/17 History Potassium Chloride [Klor-Con 20] 20 meq PO BID 08/23/14 01/09/17 History Budesonide-Formot 160-4.5 Mcg 2 puff INHALATION RT-BID 10/07/15 01/09/17 History [Symbicort 160-4.5 Mcg Inhaler] Thiamine [Vitamin B-1] 100 mg PO DAILY 11/18/15 01/09/17 History Multivitamins, Thera [Multivitamin 1 tab PO DAILY 03/19/16 01/09/17 History (formulary)] Tiotropium 18 Mcg/Puff [Spiriva] 1 cap INHALATION RT-DAILY 03/19/16 01/09/17 History Pregabalin [Lyrica] 50 mg PO BID 08/11/16 01/09/17 History Albuterol Nebulized [Ventolin 2.5 mg INHALATION RT-BID 01/09/17 01/09/17 History Nebulized] Aspirin EC [Ecotrin Low Dose] 81 mg PO DAILY 01/09/17 01/09/17 History Atorvastatin [Lipitor] 40 mg PO HS 01/09/17 01/09/17 History Omeprazole [PriLOSEC] 20 mg PO AC-SUPPER 01/09/17 01/09/17 History Spironolactone [Aldactone] 25 mg PO DAILY 01/09/17 01/09/17 History Warfarin Sodium [Coumadin] 4 mg PO SUTUWEFRSA 01/09/17 01/09/17 History Warfarin Sodium [Coumadin] 6 mg PO MOTH 01/09/17 01/09/17 History Allergies Allergy/AdvReac Type Severity Reaction Status Date / Time No Known Allergies Allergy Verified 01/09/17 20:01 Physical Exam Vitals: Vital Signs Temp Pulse Pulse Resp BP BP Pulse Ox 01/10/17 08:26 72 01/10/17 08:11 72 01/10/17 07:41 97.8 F 62 18 139/81 94 L 01/10/17 07:38 66 17 01/10/17 04:00 66 17 121/53 95 01/10/17 00:00 97.7 F 63 18 140/61 91 L 01/09/17 21:11 64 01/09/17 20:58 60 01/09/17 20:00 97.8 F 61 17 139/61 91 L 01/09/17 18:35 98.3 F 58 L 18 142/63 94 L 01/09/17 17:32 58 L 22 141/61 90 L 01/09/17 16:47 99.4 F 55 L 20 110/55 83 L Intake and Output 01/09/17 01/10/17 01/10/17 22:59 06:59 14:59 Intake Total 20 20 Balance 20 20 Intake: IV 20 20 Sodium Chloride 0.9% 1, 20 20 000 ml @ 20 mls/hr IV . Q24H [facility] Rx#:[id number] Other: Voiding Method Urinal Toilet Toilet Urinal Urinal # Voids 1 Weight 99.79 kg 101.6 kg PHYSICAL EXAMINATION: HEENT: Head is atraumatic, normocephalic. Pupils equal, round. Neck is supple. There is no elevated jugular venous pressure. HEART EXAMINATION: Heart S1 and S2 irregularly irregular systolic murmur is heard. CHEST EXAMINATION: Lungs reveal scattered coarse wheezing throughout. ABDOMEN: Soft, obese, nontender. Bowel sounds are heard. No organomegaly noted. EXTREMITIES: 1+ peripheral pulses with 1+ evidence of peripheral edema and no calf tenderness noted. Evidence of chronic venous stasis NEUROLOGIC patient is awake, alert and oriented -3. . Results 01/09/17 17:02 01/09/17 17:02 Cardiac Enzymes 01/09/17 01/09/17 01/09/17 Range/Units 17:02 17:02 22:59 AST 68 H (17-59) U/L CK-MB (CK-2) 1.0 0.8 (0.0-2.4) ng/mL Troponin I 0.055 H* 0.045 H* (0.000-0.034) ng/mL 01/10/17 Range/Units 05:23 AST (17-59) U/L CK-MB (CK-2) 1.0 (0.0-2.4) ng/mL Troponin I 0.045 H* (0.000-0.034) ng/mL Coagulation 01/09/17 01/10/17 Range/Units 17:02 05:23 PT 25.6 H 22.3 H (9.0-12.0) sec APTT 39.8 H (22.0-30.0) sec Lipids 01/10/17 Range/Units 05:23 Triglycerides 58 (<150) mg/dL Cholesterol 93 (<200) mg/dL HDL Cholesterol 40 (40-60) mg/dL CBC 01/09/17 Range/Units 17:02 WBC 9.0 (3.8-10.6) k/uL RBC 4.00 L (4.30-5.90) m/uL Hgb 11.0 L (13.0-17.5) gm/dL Hct 35.6 L (39.0-53.0) % Plt Count 177 (150-450) k/uL Comprehensive Metabolic Panel 01/09/17 Range/Units 17:02 Sodium 137 (137-145) mmol/L Potassium 4.6 (3.5-5.1) mmol/L Chloride 98 (98-107) mmol/L Carbon Dioxide 31 H (22-30) mmol/L BUN 20 (9-20) mg/dL Creatinine 1.00 (0.66-1.25) mg/dL Glucose 92 (74-99) mg/dL Calcium 8.7 (8.4-10.2) mg/dL AST 68 H (17-59) U/L ALT 42 (21-72) U/L Alkaline Phosphatase 180 H (38-126) U/L Total Protein 7.6 (6.3-8.2) g/dL Albumin 3.9 (3.5-5.0) g/dL Current Medications Generic Name Dose Route Start Last Admin Trade Name Freq PRN Reason Stop Dose Admin Albuterol/Ipratropium 3 ml 01/09/17 20:00 01/10/17 08:10 Duoneb 0.5 Mg-3 Mg/3 Ml Soln INHALATION 3 ml RT-QID [facility] Administration Amiodarone HCl 200 mg 01/09/17 21:45 01/10/17 07:42 Cordarone PO 200 mg BID [facility] Administration Aspirin 81 mg 01/10/17 09:00 01/10/17 07:44 Aspirin PO 81 mg DAILY [facility] Administration Atorvastatin Calcium 40 mg 01/09/17 21:45 01/09/17 22:27 Lipitor PO 40 mg HS [facility] Administration Budesonide/Formoterol Fumarate 2 puff 01/10/17 08:00 01/10/17 08:10 Symbicort 160-4.5 Mcg Inhaler INHALATION 2 puff RT-BID [facility] Administration Diltiazem HCl 240 mg 01/10/17 09:00 01/10/17 07:43 Cardizem Cd PO 240 mg DAILY [facility] Administration Folic Acid 1 mg 01/10/17 09:00 01/10/17 07:43 Folic Acid PO 1 mg DAILY [facility] Administration Furosemide 40 mg 01/09/17 21:45 01/10/17 07:43 Lasix PO 40 mg BID [facility] Administration Sodium Chloride 1,000 mls @ 20 mls/hr 01/09/17 18:30 01/09/17 22:21 Saline 0.9% IV Not Given .Q24H [facility] Insulin Human Lispro 0 unit 01/10/17 07:30 01/10/17 06:34 Humalog SQ 3 unit ACHS [facility] Administration Protocol Methylprednisolone Sodium Succinate 60 mg 01/10/17 00:00 01/10/17 06:33 Solu-Medrol IV 60 mg Q6HR [facility] Administration Metoprolol Tartrate 100 mg 01/09/17 21:45 01/10/17 07:43 Lopressor PO 100 mg BID [facility] Administration Multivitamins 1 each 01/10/17 09:00 01/10/17 07:43 Theragran PO 1 each DAILY [facility] Administration Nicotine 1 patch 01/10/17 09:00 01/10/17 07:46 Habitrol 21mg/24hr Patch TRANSDERM Not Given DAILY [facility] Nitroglycerin 0.4 mg 01/09/17 18:21 Nitrostat SUBLINGUAL Q5M PRN Chest Pain Pantoprazole Sodium 40 mg 01/10/17 17:30 Protonix PO AC-SUPPER [facility] Potassium Chloride 20 meq 01/10/17 09:00 01/10/17 07:43 K-Dur 20 PO 20 meq BID [facility] Administration Pregabalin 50 mg 01/09/17 21:45 01/10/17 07:50 Lyrica PO 50 mg BID [facility] Administration Spironolactone 25 mg 01/10/17 09:00 01/10/17 07:43 Aldactone PO 25 mg DAILY [facility] Administration Thiamine HCl 100 mg 01/10/17 09:00 01/10/17 07:43 Vitamin B-1 PO 100 mg DAILY [facility] Administration Warfarin Sodium 6 mg 01/10/17 18:00 Coumadin PO MOTH [facility] Warfarin Sodium 4 mg 01/10/17 01:13 Coumadin PO SuTuWeFrSa@1800 [facility] Intake and Output 01/09/17 01/10/17 01/10/17 22:59 06:59 14:59 Intake Total 20 20 Balance 20 20 Intake: IV 20 20 Sodium Chloride 0.9% 1, 20 20 000 ml @ 20 mls/hr IV . Q24H [facility] Rx#:[id number] Other: Voiding Method Urinal Toilet Toilet Urinal Urinal # Voids 1 Weight 99.79 kg 101.6 kg 01/09/17 17:02 01/09/17 17:02 EKG Interpretations (text) EKG shows atrial fibrillation with a slow ventricular response Assessment and Plan Plan: Assessment and plan #1 symptoms of midsternal chest pressure and heaviness with associated shortness of breath, suggestive of acute coronary syndrome. Troponins 0.05, 0.04, 0.04. EKG shows atrial fibrillation with slow ventricular response #2 history of aortic valve replacement #3 chronic persistent atrial fibrillation on Coumadin for anticoagulation #4 hypertension #5 hyperlipidemia #6 nicotine dependence, patient quit smoking 4-5 days ago #COPD #8 chronic aortic aneurysm being followed at [facility] #9 prior DVT #10 congestive cardiac failure diastolic in nature, BNP 1320, most recent echocardiogram with Doppler study performed in August of this year revealed an ejection fraction of 50-55%. #11 mildly abnormal liver enzymes, could be secondary to congestion. Plan We will obtain a repeat echocardiogram with Doppler study. Continue aspirin 81 mg daily, metoprolol tartrate 100 mg by mouth twice a day, Lipitor 40 mg daily, Cardizem 240 daily, patient is on amiodarone 200 mg one tablet by mouth twice a day at home, he's a chronic persistent atrial fibrillation. With slow ventricular response. Consider discontinuing the amiodarone. Further recommendations to follow. DNP note has been reviewed, I agree with a documented findings and plan of care. Patient was seen and examined.
[2017-01-10] MEDS ORDERED: ASPIRIN 325 MG TAB PO STA (10:43)
[2017-01-10] MEDS ORDERED: NITROGLYCERIN SL TABS 0.4 MG TAB SUBLINGUAL PRN (10:43)
[2017-01-10] MEDS ORDERED: SODIUM CHLORIDE 0.9% 1,000 ML in EMPTY BAG 1 BAG IV ONE ×2 (10:43→17:03)
[2017-01-10] MEDS ORDERED: ALPRAZolam 0.25 MG TAB PO PRN (10:43)
[2017-01-10] MEDS ORDERED: ALPRAZolam 0.5 MG TAB PO PRN (10:43)
[2017-01-10] MEDS ORDERED: ATORVASTATIN 80 MG TAB PO STA (10:43)
--- NOTE | 2017-01-10 10:46 | P.PN ---
Progress Note - Text this is an addendum to the dictated cardiology consultation. The patient has a known history of aortic valve replacement, chronic atrial fibrillation, COPD and chronic stable thoracic aortic dissection who presented was progressive symptoms of chest discomfort and dyspnea. He has no prior history of obstructive coronary artery disease according to him. He has a history of chronic tobacco use which he stopped 5 days ago. He has a history of chronic peripheral edema with mild worsening recently. He is on home oxygen at night. His EKG shows atrial fibrillation with nonspecific ST-T wave changes and a slow ventricular response. His troponin level is mildly elevated. His symptoms are suggestive of unstable angina and because of the pattern and the progression I have recommended to proceed with coronary angiography. The procedure will be done by Dr. Sanabria. His Coumadin will be stopped and if his INR level is down we will proceed with the procedure tomorrow. I will stop his amiodarone since his and chronic persistent atrial fibrillation. An echocardiogram with Doppler will be obtained. Depending on his progress further recommendations will be made. Thank you for this consult we will follow with you.
[2017-01-10 11:36] LABS: Glucose,Whole Blood 146 mg/dL (75-99)
--- NOTE | 2017-01-10 12:14 | P.CNPUL ---
History of Present Illness Consult date: 01/10/17 Requesting physician: Fred Desir Chief complaint: Chest pain and shortness of breath History of present illness: This is a 66-year-old white male with history of multiple medical problems including severe COPD, chronic persistent atrial fibrillation, history of aortic valve replacement and aortic dissection, history of hypertension, nicotine dependence, hepatitis C, and previous history of DVT. Patient quit smoking just only a few days ago. Patient presented to the ER with 1 month history of increased shortness of breath, dyspnea on exertion. Feeling fatigued more than usual. Patient has also been complaining of chest pressure associated with shortness of breath upon exertion. Upon presentation to the ER , his chest x-ray showed cardiomegaly, and fibrotic changes, however possibility of congestive heart failure superimposed on pulmonary fibrosis, is definitely highly considered. There is definite thickening of the interstitium. Patient had atrial fibrillation with slow ventricular response, his labs were relatively unremarkable except for slightly elevated troponin level, BNP level was just over 1300. Recent echocardiogram showed good LV function. Patient was placed on bronchodilators and diuretics, not much improvement noted so far, hence I went ahead after reviewing the chest x-ray and increase his Lasix dose to 40 mg IV push every 12 hours however we will continue to closely monitor his renal profile. Review of Systems 14 point review of systems were obtained, please refer to pertinent positives and negatives in the history of the present illness, patient is not a good historian. Past Medical History Past Medical History: Atrial Fibrillation, Atrial Flutter, Coronary Artery Disease (CAD), Cancer, Chest Pain / Angina, Heart Failure, COPD, Deep Vein Thrombosis (DVT), Eye Disorder, GERD/Reflux, GI Bleed, Hyperlipidemia, Hypertension, Pneumonia Additional Past Medical History / Comment(s): Aortic valve replacement with a bioprosthetic valve, chronic stable aortic dissection as described in the HPI being monitored at [facility] vascular surgery department, chronic atrial fibrillation, moderate degree of pulmonary hypertension based on previous echocardiograms, COPD, previous pneumonia 2008 and 2014, prostate cancer with prostatectomy, DVT R lower leg, macular degeneration , hepatitis C viral infection, left arm fracture, chronic 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 Past Anesthesia/Blood Transfusion Reactions: No Reported Reaction Past Psychological History: No Psychological Hx Reported Smoking Status: Former smoker Past Alcohol Use History: Daily Additional Past Alcohol Use History / Comment(s): started smoking 9167 smokes 1 ppd. He denies any medical marijuana, marijuana or street drug use. He does drink alcohol daily- about 4 mixed drinks per day. 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 pt is a , lives in a single story home has 1 step or a ramp(that his used) and his grandson lives partition assembler with him., home 02 and nebulizer Past Drug Use History: None Reported - Past Family History Mother Family Medical History: Diabetes Mellitus Additional Family Medical History / Comment(s): Mother at age 74 from diabetic complications. Father Family Medical History: Congestive Heart Failure (CHF) Additional Family Medical History / Comment(s): Father at age 91 yrs. Medications and Allergies Home Medications Medication Instructions Recorded Confirmed Type Amiodarone HCl [Cordarone] 200 mg PO BID 08/23/14 01/09/17 History Diltiazem HCl [Diltiazem 24Hr ER] 240 mg PO DAILY 08/23/14 01/09/17 History Metoprolol Tartrate [Lopressor] 100 mg PO BID 08/23/14 01/09/17 History Potassium Chloride [Klor-Con 20] 20 meq PO BID 08/23/14 01/09/17 History Budesonide-Formot 160-4.5 Mcg 2 puff INHALATION RT-BID 10/07/15 01/09/17 History [Symbicort 160-4.5 Mcg Inhaler] Thiamine [Vitamin B-1] 100 mg PO DAILY 11/18/15 01/09/17 History Multivitamins, Thera [Multivitamin 1 tab PO DAILY 03/19/16 01/09/17 History (formulary)] Tiotropium 18 Mcg/Puff [Spiriva] 1 cap INHALATION RT-DAILY 03/19/16 01/09/17 History Pregabalin [Lyrica] 50 mg PO BID 08/11/16 01/09/17 History Albuterol Nebulized [Ventolin 2.5 mg INHALATION RT-BID 01/09/17 01/09/17 History Nebulized] Aspirin EC [Ecotrin Low Dose] 81 mg PO DAILY 01/09/17 01/09/17 History Atorvastatin [Lipitor] 40 mg PO HS 01/09/17 01/09/17 History Omeprazole [PriLOSEC] 20 mg PO AC-SUPPER 01/09/17 01/09/17 History Spironolactone [Aldactone] 25 mg PO DAILY 01/09/17 01/09/17 History Warfarin Sodium [Coumadin] 4 mg PO SUTUWEFRSA 01/09/17 01/09/17 History Warfarin Sodium [Coumadin] 6 mg PO MOTH 01/09/17 01/09/17 History Allergies Allergy/AdvReac Type Severity Reaction Status Date / Time No Known Allergies Allergy Verified 01/09/17 20:01 Physical Exam Vitals: Vital Signs Temp Pulse Pulse Resp BP BP Pulse Ox 01/10/17 12:00 68 01/10/17 11:33 97.6 F 63 18 144/67 93 L 01/10/17 08:26 72 01/10/17 08:11 72 01/10/17 07:41 97.8 F 62 18 139/81 94 L 01/10/17 07:38 66 17 01/10/17 04:00 66 17 121/53 95 01/10/17 00:00 97.7 F 63 18 140/61 91 L 01/09/17 21:11 64 01/09/17 20:58 60 01/09/17 20:00 97.8 F 61 17 139/61 91 L 01/09/17 18:35 98.3 F 58 L 18 142/63 94 L 01/09/17 17:32 58 L 22 141/61 90 L 01/09/17 16:47 99.4 F 55 L 20 110/55 83 L Intake and Output 01/09/17 01/10/17 01/10/17 22:59 06:59 14:59 Intake Total 20 20 Output Total 225 Balance 20 20 -225 Intake: IV 20 20 Sodium Chloride 0.9% 1, 20 20 000 ml @ 20 mls/hr IV . Q24H [facility] Rx#:[id number] Output: Urine 225 Other: Voiding Method Urinal Toilet Toilet Urinal Urinal # Voids 1 1 Weight 99.79 kg 101.6 kg Physical Exam: Revealed a 66-year-old in no distress. HEENT:[Neck is supple.] [No neck masses.] [No thyromegaly.] [No JVD.] Chest: [Coarse rhonchi and wheezes noted bilaterally more so on forced expiratory maneuver.] Cardiac Exam: [Irregular irregular rhythm, Normal S1 and S2, no S3 gallop, 2/6 systolic murmur throughout the precordium Abdomen: [Soft, nontender, no megaly, no rebound, no guarding, normal bowel sounds.] Extremities: [No clubbing, 1+ bipedal edema, no cyanosis.] Neurological Exam: [No focal neurologic deficit.] Results - Laboratory Findings CBC and BMP: 01/09/17 17:02 01/09/17 17:02 PT/INR, D-dimer PT 22.3 sec (9.0-12.0) H 01/10/17 05:23 INR 2.3 (<1.1) 01/10/17 05:23 Abnormal lab findings: Abnormal Labs 01/09/17 01/09/17 01/09/17 17:02 17:02 17:02 RBC 4.00 L Hgb 11.0 L Hct 35.6 L PT APTT Carbon Dioxide 31 H POC Glucose (mg/dL) Hemoglobin A1c AST 68 H Alkaline Phosphatase 180 H Total Creatine Kinase 41 L Troponin I 0.055 H* 01/09/17 01/09/17 01/09/17 17:02 17:02 21:22 RBC Hgb Hct PT 25.6 H APTT 39.8 H Carbon Dioxide POC Glucose (mg/dL) 186 H Hemoglobin A1c 6.3 H AST Alkaline Phosphatase Total Creatine Kinase Troponin I 01/09/17 01/10/17 01/10/17 22:59 05:23 05:23 RBC Hgb Hct PT 22.3 H APTT Carbon Dioxide POC Glucose (mg/dL) Hemoglobin A1c AST Alkaline Phosphatase Total Creatine Kinase 31 L 34 L Troponin I 0.045 H* 0.045 H* 01/10/17 01/10/17 06:05 11:33 RBC Hgb Hct PT APTT Carbon Dioxide POC Glucose (mg/dL) 157 H 146 H Hemoglobin A1c AST Alkaline Phosphatase Total Creatine Kinase Troponin I - Diagnostic Findings Chest x-ray: image reviewed (I suspect fibrotic changes and some component of congestive heart failure.) Assessment and Plan Plan: Impression: Shortness of breath, multifactorial secondary to: 1 Acute congestive heart failure, secondary to diastolic dysfunction. And suspect some component of COPD considering the patient's history of smoking and he quit smoking only a few days ago. 2 history of underlying COPD and nicotine dependence. Quit smoking a few days ago 3 history of aortic aneurysm being followed at [facility]. 4 multiple comorbidities including chronic atrial fibrillation, previous aortic valve replacement, chronic atrial fibrillation, essential hypertension, hyperlipidemia, history of DVT, and history of GERD, underlying coronary artery disease, this is being addressed by cardiology on the case, the presentation may be a presentation of acute coronary syndrome,. Workup is pending. Recommendation: Continue present treatment plan, increased diuretics, monitor renal profile, continue bronchodilators, follow-up chest x-ray in the next 24- 48 hours. We'll continue to follow. Time with Patient: Greater than 30
[2017-01-10] MEDS ORDERED: ACETAMINOPHEN TAB 325 MG TAB PO PRN (12:51)
--- NOTE | 2017-01-10 13:05 | ECHOF ---
Referral Reason:chest pain MEASUREMENTS -------- HEIGHT: 175.3 cm WEIGHT: 101.2 kg BP: 139/81 IVSd: 1.2 cm (0.6 - 1.1) LVIDd: 4.7 cm (3.9 - 5.3) LVPWd: 1.3 cm (0.6 - 1.1) IVSs: 1.7 cm LVIDs: 4.6 cm LVPWs: 1.2 cm LA Diam: 5.2 cm (2.7 - 3.8) LAESV Index (A-L): 72.52 ml/m Ao Diam: 4.2 cm (2.0 - 3.7) AV Cusp: 1.3 cm (1.5 - 2.6) LA Diam: 5.4 cm (2.7 - 3.8) MV EXCURSION: 16.790 mm (> 18.000) MV EF SLOPE: 65 mm/s (70 - 150) EPSS: 0.7 cm MV E Juan: 1.65 m/s MV DecT: 219 ms MV A Juan: 0.56 m/s MV E/A Ratio: 2.92 AV maxP.63 mmHg AV maxP.63 mmHg AV meanP.60 mmHg RAP: 5.00 mmHg RVSP: 54.13 mmHg FINDINGS -------- Sinus rhythm. This was a techncally difficult study with suboptimal views, , Definity utilized for enhancement of images. There is mild concentric left ventricular hypertrophy. Overall left ventricular systolic function is low-normal with, an EF between 50 - 55 %. The right ventricle is normal in size. LA is severely dilated >40 ml/m2 The right atrial size is normal. 1.5MG OF DEFINITY UTLIZED: 2 OR MORE WALL SEGMENTS NOT VISUALIZED. Peak/mean gradient across the Aortic Valve is 16.63mmHg / 8.60mmHg. mildly thickened and calcified bioprosthetic vaive. Mild mitral annular calcification present. Mild mitral regurgitation is present. Mild tricuspid regurgitation present. There is moderate pulmonary hypertension. The right ventricular systolic pressure, as measured by Doppler, is 54.13mmHg. The pulmonic valve was not well visualized. The aortic root size is normal. There is no pericardial effusion. CONCLUSIONS -------- 1. This was a techncally difficult study with suboptimal views, , Definity utilized for enhancement of images. 2. There is moderate pulmonary hypertension. 3. The right ventricular systolic pressure, as measured by Doppler, is 54.13mmHg. 4. The pulmonic valve was not well visualized. 5. The aortic root size is normal. 6. There is mild concentric left ventricular hypertrophy. 7. LA is severely dilated >40 ml/m2 8. 1.5MG OF DEFINITY UTLIZED: 2 OR MORE WALL SEGMENTS NOT VISUALIZED. 9. Peak/mean gradient across the Aortic Valve is 16.63mmHg / 8.60mmHg. 10. mildly thickened and calcified bioprosthetic vaive. 11. Mild mitral annular calcification present. 12. Mild mitral regurgitation is present. 13. Mild tricuspid regurgitation present. CULTURE MANAGER: Jami Francis RDCS
--- NOTE | 2017-01-10 13:08 | HP ---
DATE OF ADMISSION: 01/09/2017 CHIEF COMPLAINT: Shortness of breath. HISTORY OF PRESENT ILLNESS: This 66-year-old gentleman with past medical history of multiple medical problems of multiple medical problems including history of atrial fibrillation, CAD, chronic obstructive pulmonary disease, congestive heart failure, DVT, history of GI bleed, history of hypertension, hyperlipidemia, presented with bioprosthetic valve, chronic stable aortic dissection, monitored in [facility] vascular department, being followed by Dr. Colin in the outpatient setting complaining of shortness of breath and cough and sputum. Not much sputum is reported but more of shortness of breath and cough and cracking noise in the chest and patient came to [facility] and admitted for further evaluation and treatment. A chest x-ray showed evidence of bilateral infiltrates and patient admitted for further evaluation and treatment. There is history of any fever, rigors or chills. No history of headache, loss of consciousness or seizures. The patient's BNP is noted. Troponins are elevated up to 0.05 and 0.05. PAST MEDICAL HISTORY: History of atrial fibrillation, CAD, history of chest pain, history of CHF, COPD, DVT, gastroesophageal reflux disease, GI bleed, hypertension, hyperlipidemia, history of aortic valve replacement. Home medications are: 1. Coumadin 6 mg Tuesday, , and 4 mg on Tuesday, Tuesday, Tuesday, Tuesday, Tuesday. 2. Spiriva 1 puff daily. 3. Vitamin B 100 milligrams daily. 4. Aldactone 25 mg daily. 5. Lyrica 50 mg p.o. b.i.d. 6. Klor-Con 10 meq p.o. b.i.d. 7. Prilosec 20 mg a.c. supper. 8. Multivitamin 1 p.o. daily. 9. Lopressor 100 mg p.o. b.i.d. 10. Folic acid 1 mg daily. 11. Diltiazem 240 mg p.o. daily. 12. Symbicort 160/4.5 two puffs b.i.d. 13. Lipitor 40 mg q.h.s. 14. Ecotrin 80 mg daily. 15. Cordarone 200 mg p.o. b.i.d. 16. Ventolin 2.5 b.i.d. ALLERGIES: None. FAMILY HISTORY: History of diabetes mellitus in the family. SOCIAL HISTORY: Previous history of smoking. Occasional alcohol intake. REVIEW OF SYSTEMS: ENT: No diminishing hearing. No diminished vision. CARDIOVASCULAR: No angina or palpitations. RESPIRATORY: As mentioned earlier. GI: No nausea. : No dysuria. Nervous system: No numbness or weakness. ALLERGY/IMMUNOLOGY: No asthma or hayfever. MUSCULOSKELETAL: As mentioned earlier. HEMATOLOGY/ONCOLOGY: No history of anemia. ENDOCRINE: No history of diabetes and hypothyroidism. CONSTITUTIONAL: As mentioned earlier. DERMATOLOGY: Negative. RHEUMATOLOGY: Negative. PSYCHIATRY: As mentioned earlier. PHYSICAL EXAMINATION: Patient is alert and oriented x3. Pulse is 61, blood pressure 139/61. Respiratory rate 17. Temperature 97.8. Pulse ox 91% on 3 L. HEENT: Conjunctivae normal. Oral mucosa moist. NECK: No jugular venous distention. No carotid bruit. No lymph node enlargement. CARDIOVASCULAR: S1, S2. No S3, no S4. RESPIRATORY: Breath sounds diminished at the bases. A few scattered rhonchi. Coarse crackles heard bilaterally. No bronchial breath sounds. ABDOMEN: Soft. Nontender. LEGS: No edema. No swelling. Nervous system: Higher functions as mentioned earlier. Moves all four limbs. No focal deficits. LYMPHATICS: No lymph nodes palpable in the neck, axillae or groin. SKIN: No ulcer, rash or bleeding. LABS: WBC 9, hemoglobin 11. INR is 2.7, otherwise Troponin 0.044. ASSESSMENT: 1. Chronic obstructive pulmonary disease, acute exacerbation with acute purulent tracheobronchitis. 2. Rule out congestive heart failure. 3. Troponin 0.055. 4. Anemia, normocytic. 5. History of atrial flutter ablation. 6. History of coronary artery disease. 7. History of congestive heart failure with chronic diastolic dysfunction, ejection fraction 50% to 55%. 8. History of chronic obstructive pulmonary disease. 9. History of deep venous thrombosis. 10. History of gastroesophageal reflux disease. 11. History of gastrointestinal bleed. 12. Hypertension. 13. pneumonia. 14. History of aortic valve replacement with bioprosthetic valve. 15. Chronic stable aortic dissection, monitored at [facility] vascular surgery department. 16. Moderate pulmonary hypertension. 17. History of macular degeneration. 18. History of hepatitis C. 19. Remote history of nicotine dependence. 20. History of ETOH. 21. Obesity body mass index 32.5. 22. FULL CODE. RECOMMENDATIONS AND DISCUSSION: In this 66-year-old gentleman who presented with multiple complex medical issues, we will monitor the patient closely, continue with the current medications, continue with the symptomatic treatment. Otherwise, at this time, I would recommend resume the home medications. I recommend a BNP also. Bronchodilators. Cardiology and pulmonology will be consulted. Prognosis guarded because of multiple complex medical issues. Further recommendations to follow. A copy of dictation being forwarded to Dr. Colin who is the primary care physician. KRISTEN
[2017-01-10] MEDS ORDERED: RX INFO: IV CONTRAST WAS GIVEN 1 EACH MISC MISCELLANE PRN (14:14)
--- NOTE | 2017-01-10 15:50 | CT ---
EXAMINATION TYPE: CT angio thoracic/abd aorta DATE OF EXAM: 01/10/2017 3:24 PM COMPARISON: 08/05/2016 HISTORY: Patient poor historian. Aortic dissection. CT DLP: 1915 mGycm Automated exposure control for dose reduction was used. TECHNIQUE: Performed without and with IV Contrast, patient injected with 100 mL of Omnipaque 350. Three-D reconstructed images performed separately on the 3 day [employer] computer by the technologist are pres ented for review.. FINDINGS: The ascending thoracic aorta at the level the main pulmonary artery is 3.3 cm. The main pulmonary art rochelle the bifurcation is 3.4 cm. No mediastinal adenopathy enlarged by CT criteria is evident. Several small lymph nodes are present within the pretracheal space. The proximal descending colon is prominent with a transverse dimension of 4.4 cm. There are couple areas of suspected dissection. This includes the proximal descending colon at the le duke of the main pulmonary artery. Series 8 image 29. Note is also includes the aorta is a transverse through the diaphragm at the level of the celiac axis. Series 8 image 57. These are very short segmen ts of dissection without continuation. The abdominal aorta tapers normally through its visualized cou rse. Vascular calcification is present. The bifurcation is unremarkable. External and internal iliac vessels appear normal. Common femoral arteries appear normal. Urinary bladder is unremarkable. There is some moderate free fluid within the pelvis which is abnorma l in a male. Diverticular changes are within the sigmoid colon. Gallstones are present. Liver and spl een appear unremarkable. The pancreas is slightly atrophic. There is an anterior abdominal wall herni a in the epigastric region containing mesenteric fat. IMPRESSION: 1. SMALL SECTIONS OF DISSECTION WITHIN THE DESCENDING THORACIC AND PROXIMAL ABDOMINAL AORTA. THESE WE RE PRESENT 08/05/2016. 2. MILD ANEURYSMAL DILATATION OF THE ASCENDING THORACIC AORTA MEASURING UP TO 4.4 CM IN TRANSVERSE DI MENSION 3. SMALL BILATERAL PLEURAL EFFUSIONS..
--- NOTE | 2017-01-10 15:56 | P.PN ---
Subjective Date of service 01/10/2017. Progress note being dictated for Dr. Desir Interval history: This a 66-year-old gentleman admitted with COPD, CHF, elevated troponin and multiple other medical issues. Evaluated by cardiology and patient is scheduled for cardiac catheterization in a.m. Coumadin remains on hold. INR 2.3. Troponin 0.055, 0.045, 0.045. Telemetry reporting controlled atrial fibrillation. Echocardiogram suboptimal study reporting EF 50 -55%, moderate pulmonary hypertension, aortic root size normal, severely dilated LA. Review of systems: HEENT: Denies headache or focal deficits. Denies any dizziness or lightheadedness. Respiratory: Complains of shortness of breath. Cardiac: Denies any chest pain, palpitations. GI: Denies any nausea, vomiting, or diarrhea. Denies any abdominal tenderness. : Denies any dysuria. Psychiatry: Denies any anxiety or depression. Active Medications Generic Name Dose Route Start Last Admin Trade Name Freq PRN Reason Stop Dose Admin Acetaminophen 650 mg 01/10/17 12:51 Tylenol Tab PO Q6HR PRN Mild Pain Hydrocodone Bitart/Acetaminophen 1 each 01/10/17 12:51 [place] 5-325 PO Q4HR PRN Moderate Pain Albuterol/Ipratropium 3 ml 01/09/17 20:00 01/10/17 12:00 Duoneb 0.5 Mg-3 Mg/3 Ml Soln INHALATION 3 ml RT-QID JAYLA Administration Alprazolam 0.25 mg 01/10/17 10:43 Xanax PO Q6HR PRN Mild Anxiety Alprazolam 0.5 mg 01/10/17 10:43 Xanax PO Q6HR PRN Moderate Anxiety Aspirin 81 mg 01/10/17 09:00 01/10/17 07:44 Aspirin PO 81 mg DAILY JAYAL Administration Aspirin 325 mg 01/11/17 05:00 Aspirin PO 01/11/17 05:01 ONCE ONE Atorvastatin Calcium 40 mg 01/11/17 09:00 Lipitor PO DAILY JAYLA Atorvastatin Calcium 80 mg 01/11/17 05:00 Lipitor PO 01/11/17 05:01 ONCE ONE Budesonide/Formoterol Fumarate 2 puff 01/10/17 08:00 01/10/17 08:10 Symbicort 160-4.5 Mcg Inhaler INHALATION 2 puff RT-BID JAYLA Administration Diltiazem HCl 240 mg 01/10/17 09:00 01/10/17 07:43 Cardizem Cd PO 240 mg DAILY JAYLA Administration Folic Acid 1 mg 01/10/17 09:00 01/10/17 07:43 Folic Acid PO 1 mg DAILY JAYLA Administration Furosemide 40 mg 01/09/17 21:45 01/10/17 07:43 Lasix PO 40 mg BID JAYLA Administration Sodium Chloride 1,000 mls @ 20 mls/hr 01/09/17 18:30 01/09/17 22:21 Saline 0.9% IV Not Given .Q24H [facility] Insulin Human Lispro 0 unit 01/10/17 07:30 01/10/17 12:31 Humalog SQ 2 unit ACHS JAYLA Administration Protocol Methylprednisolone Sodium Succinate 60 mg 01/10/17 00:00 01/10/17 12:31 Solu-Medrol IV 60 mg Q6HR JAYLA Administration Metoprolol Tartrate 100 mg 01/09/17 21:45 01/10/17 07:43 Lopressor PO 100 mg BID JAYLA Administration Miscellaneous Information 1 each 01/10/17 14:14 Rx Info: Iv Contrast Was Given MISCELLANE 01/12/17 14:14 DAILY PRN Per Protocol Multivitamins 1 each 01/10/17 09:00 01/10/17 07:43 Theragran PO 1 each DAILY [facility] Administration Nicotine 1 patch 01/10/17 09:00 01/10/17 07:46 Habitrol 21mg/24hr Patch TRANSDERM Not Given DAILY [facility] Nitroglycerin 0.4 mg 01/09/17 18:21 Nitrostat SUBLINGUAL Q5M PRN Chest Pain Pantoprazole Sodium 40 mg 01/10/17 17:30 Protonix PO AC-SUPPER [facility] Potassium Chloride 20 meq 01/10/17 09:00 01/10/17 07:43 K-Dur 20 PO 20 meq BID JAYLA Administration Pregabalin 50 mg 01/09/17 21:45 01/10/17 07:50 Lyrica PO 50 mg BID JAYLA Administration Sodium Chloride 10 ml 01/10/17 21:00 Saline Flush IV Q12HR [facility] Spironolactone 25 mg 01/10/17 09:00 01/10/17 07:43 Aldactone PO 25 mg DAILY JAYLA Administration Thiamine HCl 100 mg 01/10/17 09:00 01/10/17 07:43 Vitamin B-1 PO 100 mg DAILY JAYLA Administration Objective - Vital Signs Vital signs: Vital Signs Temp 97.6 F 01/10/17 11:33 Pulse 72 01/10/17 12:17 Resp 18 01/10/17 11:33 BP 144/67 01/10/17 11:33 Pulse Ox 93 L 01/10/17 11:33 Intake & Output 01/09/17 01/10/17 01/10/17 18:59 06:59 18:59 Intake Total 40 420 Output Total 225 Balance 40 195 Weight 99.79 kg 101.6 kg Intake: IV 40 Sodium Chloride 0.9% 1, 40 000 ml @ 20 mls/hr IV . Q24H JAYLA Rx#:[id number] Oral 420 Output: Urine 225 Other: Voiding Method Toilet Toilet Urinal Urinal # Voids 1 1 - Exam PHYSICAL EXAM: VITAL SIGNS: [As above] GENERAL: [Sitting up in bed, no acute distress] HEENT: [Pupils equal conjunctiva normal.] NECK: [Supple, no JVD] RESPIRATORY EFFORT:[ Mildly increased] LUNGS: [Rhonchi and expiratory Wheezes scattered throughout] CARDIOVASCULAR[ irregular S1 and S2, positive systolic murmur, positive edema] GI: [Abdomen soft, nontender, positive bowel sounds. No guarding, no rigidity] PSYCH: [Alert and oriented -3, mood and affect normal.] NEURO: No focal deficits - Labs CBC & Chem 7: 01/09/17 17:02 01/09/17 17:02 Labs: Abnormal Lab Results - Last 24 Hours (Table) 01/09/17 01/09/17 01/09/17 Range/Units 17:02 17:02 17:02 RBC 4.00 L (4.30-5.90) m/uL Hgb 11.0 L (13.0-17.5) gm/dL Hct 35.6 L (39.0-53.0) % PT (9.0-12.0) sec APTT (22.0-30.0) sec Carbon Dioxide 31 H (22-30) mmol/L POC Glucose (mg/dL) (75-99) mg/dL Hemoglobin A1c (4.2-6.1) % AST 68 H (17-59) U/L Alkaline Phosphatase 180 H (38-126) U/L Total Creatine Kinase 41 L (55-170) U/L Troponin I 0.055 H* (0.000-0.034) ng/mL 01/09/17 01/09/17 01/09/17 Range/Units 17:02 17:02 21:22 RBC (4.30-5.90) m/uL Hgb (13.0-17.5) gm/dL Hct (39.0-53.0) % PT 25.6 H (9.0-12.0) sec APTT 39.8 H (22.0-30.0) sec Carbon Dioxide (22-30) mmol/L POC Glucose (mg/dL) 186 H (75-99) mg/dL Hemoglobin A1c 6.3 H (4.2-6.1) % AST (17-59) U/L Alkaline Phosphatase (38-126) U/L Total Creatine Kinase (55-170) U/L Troponin I (0.000-0.034) ng/mL 01/09/17 01/10/17 01/10/17 Range/Units 22:59 05:23 05:23 RBC (4.30-5.90) m/uL Hgb (13.0-17.5) gm/dL Hct (39.0-53.0) % PT 22.3 H (9.0-12.0) sec APTT (22.0-30.0) sec Carbon Dioxide (22-30) mmol/L POC Glucose (mg/dL) (75-99) mg/dL Hemoglobin A1c (4.2-6.1) % AST (17-59) U/L Alkaline Phosphatase (38-126) U/L Total Creatine Kinase 31 L 34 L (55-170) U/L Troponin I 0.045 H* 0.045 H* (0.000-0.034) ng/mL 01/10/17 01/10/17 Range/Units 06:05 11:33 RBC (4.30-5.90) m/uL Hgb (13.0-17.5) gm/dL Hct (39.0-53.0) % PT (9.0-12.0) sec APTT (22.0-30.0) sec Carbon Dioxide (22-30) mmol/L POC Glucose (mg/dL) 157 H 146 H (75-99) mg/dL Hemoglobin A1c (4.2-6.1) % AST (17-59) U/L Alkaline Phosphatase (38-126) U/L Total Creatine Kinase (55-170) U/L Troponin I (0.000-0.034) ng/mL Assessment and Plan Plan: 1. Acute exacerbation of COPD with acute purulent tracheobronchitis. 2. [ Acute on chronic CHF exacerbation, diastolic dysfunction, EF 50-55%]. 3. [ Troponin 0.055, possible acute coronary syndrome, workup in progress]. 4. [ Anemia, normocytic, possibly of chronic disease]. 5. [ Moderate pulmonary hypertension]. 6. [ CAD]. 7. [ Gastroesophageal reflux disease]. 8. History of GI bleed 9. Hypertension 10. History of aortic valve replacement, bioprosthetic valve 11. Chronic stable aortic dissection monitoring it [facility] Vascular surgery 12. Macular degeneration 13. Hepatitis C hx 14. nicotine dependence, recently quit smoking-days ago 15. History of EtOH abuse 16. Obesity, BMI 33.1 17. History of DVT Plan: Continue on current medication regime , Lasix, nebulized bronchodilators, monitoring and symptomatic treatment. Coumadin on hold for cardiac catheterization tomorrow. Follow closely with cardiology and pulmonary.Further recommendations to follow. The impression and plan of care has been dictated as directed. : I performed a H&P examination of this patient and discussed the same with the dictator. I agree with the dictator's note. Any additional findings/opinions/ etc. will be noted.
[2017-01-10 16:20] LABS: Glucose,Whole Blood 143 mg/dL (75-99)
[2017-01-10] MEDS: PANTOPRAZOLE 40 MG TABLET PO SCH (17:00)
[2017-01-10] MEDS: SODIUM CHLORIDE 0.9% 1,000 ML IV SCH (17:02)
[2017-01-10] MEDS ORDERED: WARFARIN 3 MG TAB PO SCH (18:00)
[2017-01-10 20:32] LABS: Glucose,Whole Blood 162 mg/dL (75-99)
--- NOTE | 2017-01-10 20:57 | PN ---
DATE OF SERVICE: 01/10/2017 This 66-year-old gentleman who was admitted with COPD acute exacerbation, also had some features of congestive heart failure. Seen and evaluated the patient along with the nurse practitioner. 2D echo with Doppler showed ejection fraction 50% to 55%. LA was severely dilated, mild valvular abnormalities are noted. Thoracic aortic CT was done, which showed small sections of dissection which is rather stable. Mild aneurysmal dilation. Seen and evaluated the patient along with nurse practitioner. Please refer to the nurse practitioner notes and impression documented as a scribe for further information. Further recommendations to recommendations to follow.
[2017-01-11] MEDS ORDERED: ATORVASTATIN 80 MG TAB PO ONE (05:00)
[2017-01-11] MEDS ORDERED: ASPIRIN 325 MG TAB PO ONE (05:00)
[2017-01-11] MEDS: ASPIRIN 81 MG CHEW PO SCH (05:05)
[2017-01-11] MEDS: ATORVASTATIN 40 MG TAB PO SCH (05:57)
[2017-01-11] MEDS: DILTIAZEM CD 240 MG CAP.ER.24H PO SCH (06:06)
[2017-01-11] MEDS: METOPROLOL TARTRATE 50 MG TAB PO SCH ×2 (06:07→20:27)
[2017-01-11] MEDS: methylPREDNISolone SOD SUCCI 125 MG/2 ML VIAL IV SCH ×4 (06:07→23:22)
[2017-01-11] MEDS: MULTIVITAMINS, THERA 1 EACH TAB PO SCH (06:07)
[2017-01-11] MEDS: FOLIC ACID 1 MG TAB PO SCH (06:07)
[2017-01-11] MEDS: POTASSIUM CHLORIDE ER 20 MEQ TAB.ER PO SCH ×2 (06:07→20:27)
[2017-01-11] MEDS: PREGABALIN 50 MG CAP PO SCH ×2 (06:09→20:27)
[2017-01-11] MEDS: THIAMINE 100 MG TAB PO SCH (06:10)
[2017-01-11 06:19] LABS: Glucose,Whole Blood 170 mg/dL (75-99)
[2017-01-11] MEDS: INSULIN LISPRO (humaLOG) 300 UNIT/3 ML VIAL SQ SCH ×3 (06:28→17:48)
[2017-01-11 06:43] LABS: Basophils % (A) 0 %; CH 27.5; CHCM 30.5; Eosinophils % (A) 0 %; HCT 36.5 % (39.0-53.0); HDW 3.04; Hypochromasia Marked; Luc % (Auto) 1; Lymphocytes # (A) 0.5 k/uL (1.0-4.8); Lymphocytes % (A) 4 %; MCH 27.3 pg (25.0-35.0); MCHC 30.2 g/dL (31.0-37.0); MCV 90.4 fL (80.0-100.0); Mean Platelet Volume 7.7; Monocytes # (A) 0.4 k/uL (0-1.0); Monocytes % (A) 2 %; Neutrophils # (A) 13.4 k/uL (1.3-7.7); Neutrophils % (A) 93 %; RBC 4.04 m/uL (4.30-5.90); WBC 14.4 k/uL (3.8-10.6); WBC (Perox) 14.67
[2017-01-11 06:53] LABS: INR 2.2 (<1.1); Prothrombin Time 21.5 sec (9.0-12.0)
[2017-01-11 06:55] LABS: Anion Gap 11 mmol/L; Blood Urea Nitrogen 27 mg/dL (9-20); Carbon Dioxide 31 mmol/L (22-30); Chloride 99 mmol/L (98-107); Glucose 165 mg/dL (74-99); Non-African American GFR(MDRD) >60 (>60 ml/min/1.73 sqM); Potassium 4.2 mmol/L (3.5-5.1); Sodium 141 mmol/L (137-145)
[2017-01-11] MEDS: IPRATROPIUM-ALBUTEROL 3 ML NEB INHALATION SCH ×4 (07:47→20:13)
[2017-01-11] MEDS: SYMBICORT 160-4.5 MCG INHALER INHALATION SCH ×2 (07:48→20:13)
[2017-01-11] MEDS ORDERED: ALPRAZolam 0.5 MG TAB PO PRN (07:49)
[2017-01-11] MEDS ORDERED: NITROGLYCERIN SL TABS 0.4 MG TAB SUBLINGUAL PRN (07:49)
[2017-01-11] MEDS ORDERED: SODIUM CHLORIDE 0.9% 1,000 ML in EMPTY BAG 1 BAG IV ONE (07:49)
[2017-01-11] MEDS: SPIRONOLACTONE 25 MG TAB PO SCH (09:04)
[2017-01-11] MEDS: FUROSEMIDE 40 MG TAB PO SCH ×2 (09:04→20:27)
[2017-01-11] MEDS: NICOTINE 21MG/24HR PATCH TRANSDERM SCH (09:06)
[2017-01-11 11:40] LABS: Glucose,Whole Blood 278 mg/dL (75-99)
[2017-01-11] MEDS ORDERED: INSULIN REGULAR BOLUS (FROM DRIP BAG) IV ONE (12:16)
[2017-01-11] MEDS ORDERED: INSULIN REGULAR 100 UNIT in SODIUM CHLORIDE 0.9% 100 ML IV SCH (13:00)
--- NOTE | 2017-01-11 13:36 | P.PN ---
Subjective This is a 66-year-old white male with history of multiple medical problems including severe COPD, chronic persistent atrial fibrillation, history of aortic valve replacement and aortic dissection, history of hypertension, nicotine dependence, hepatitis C, and previous history of DVT. Patient quit smoking just only a few days ago. Patient presented to the ER with 1 month history of increased shortness of breath, dyspnea on exertion. Feeling fatigued more than usual. Patient has also been complaining of chest pressure associated with shortness of breath upon exertion. Upon presentation to the ER , his chest x-ray showed cardiomegaly, and fibrotic changes, however possibility of congestive heart failure superimposed on pulmonary fibrosis, is definitely highly considered. There is definite thickening of the interstitium. Patient had atrial fibrillation with slow ventricular response, his labs were relatively unremarkable except for slightly elevated troponin level, BNP level was just over 1300. Recent echocardiogram showed good LV function. Patient was placed on bronchodilators and diuretics, not much improvement noted so far, hence I went ahead after reviewing the chest x-ray and increase his Lasix dose to 40 mg IV push every 12 hours however we will continue to closely monitor his renal profile. Patient is seen again today 01/11/2017 in follow-up on the selective care unit. He is currently sitting up in a chair at the bedside. He is awake and alert in no acute distress. He denies any worsening shortness of breath, cough or congestion. No chest pain, palpitations lightheadedness or dizziness. The plan was for cardiac catheterization today however his INR is 2.2 in the procedure may be done tomorrow. He is maintaining O2 saturations in the 90s on room air. He's been afebrile. Hemodynamically stable. Thoracic CT revealed small sections of dissection within the descending thoracic and proximal abdominal aorta. These were present in August 2016. There is also noted mild aneurysmal dilatation of the ascending thoracic aorta measuring up to 4.4 cm in transverse dimension. Small bilateral pleural effusions. Objective - Vital Signs Vital signs: Vital Signs Temp 97.5 F L 01/11/17 11:41 Pulse 64 01/11/17 11:41 Resp 17 01/11/17 11:41 BP 130/59 01/11/17 11:41 Pulse Ox 93 L 01/11/17 11:41 Intake & Output 01/10/17 01/11/17 01/11/17 18:59 06:59 18:59 Intake Total 780 Output Total 225 Balance 555 Weight 100.6 kg Intake: Oral 780 Output: Urine 225 Other: Voiding Method Toilet Toilet Toilet Urinal # Voids 1 1 - Exam GENERAL EXAM: Alert, active, comfortable in no apparent distress. HEAD: Normocephalic. EYES: Normal reaction of pupils, equal size. NOSE: Clear with pink turbinates. THROAT: No erythema or exudates. NECK: No masses, no JVD. CHEST: No chest wall deformity. LUNGS: Equal air entry with no crackles, wheeze, rhonchi or dullness. CVS: S1 and S2 normal with no audible murmurs, irregular rhythm. ABDOMEN: No hepatosplenomegaly, normal bowel sounds, no guarding or rigidity. SPINE: No scoliosis or deformity SKIN: No rashes CENTRAL NERVOUS SYSTEM: No focal deficits, tone is normal in all 4 extremities. Extremities: There is 2 + peripheral edema. No clubbing, no cyanosis. Peripheral pulses are intact. - Labs CBC & Chem 7: 01/11/17 05:51 01/11/17 05:51 Labs: Abnormal Lab Results - Last 24 Hours (Table) 01/10/17 01/10/17 01/11/17 Range/Units 16:13 20:30 05:51 WBC (3.8-10.6) k/uL RBC (4.30-5.90) m/uL Hgb (13.0-17.5) gm/dL Hct (39.0-53.0) % MCHC (31.0-37.0) g/dL Neutrophils # (1.3-7.7) k/uL Lymphocytes # (1.0-4.8) k/uL PT 21.5 H (9.0-12.0) sec Carbon Dioxide (22-30) mmol/L BUN (9-20) mg/dL Glucose (74-99) mg/dL POC Glucose (mg/dL) 143 H 162 H (75-99) mg/dL 01/11/17 01/11/17 01/11/17 Range/Units 05:51 05:51 06:19 WBC 14.4 H (3.8-10.6) k/uL RBC 4.04 L (4.30-5.90) m/uL Hgb 11.0 L (13.0-17.5) gm/dL Hct 36.5 L (39.0-53.0) % MCHC 30.2 L (31.0-37.0) g/dL Neutrophils # 13.4 H (1.3-7.7) k/uL Lymphocytes # 0.5 L (1.0-4.8) k/uL PT (9.0-12.0) sec Carbon Dioxide 31 H (22-30) mmol/L BUN 27 H (9-20) mg/dL Glucose 165 H (74-99) mg/dL POC Glucose (mg/dL) 170 H (75-99) mg/dL 01/11/17 Range/Units 11:38 WBC (3.8-10.6) k/uL RBC (4.30-5.90) m/uL Hgb (13.0-17.5) gm/dL Hct (39.0-53.0) % MCHC (31.0-37.0) g/dL Neutrophils # (1.3-7.7) k/uL Lymphocytes # (1.0-4.8) k/uL PT (9.0-12.0) sec Carbon Dioxide (22-30) mmol/L BUN (9-20) mg/dL Glucose (74-99) mg/dL POC Glucose (mg/dL) 278 H (75-99) mg/dL Assessment and Plan Plan: Impression: #1 Dyspnea, multifactorial secondary to acute diastolic congestive heart failure , acute exacerbation of chronic obstructive pulmonary disease and chronic nicotine addiction. #2 History of abdominal aortic aneurysm being followed at [facility]. Current measurement 4.4 cm. #3 Chronic atrial fibrillation, anticoagulated with warfarin. #4 Previous aortic valve replacement. #5 Hypertension. #6 Hyperlipidemia. #7 History of DVT. #8 Gastroesophageal reflux disease. #9 Coronary artery disease with acute coronary syndrome plan is for cardiac catheterization once INR less than 2. Plan: The patient was seen and evaluated by Dr. Downey. Computed tomography scan reviewed. We'll continue his treatment for his COPD exacerbation with bronchodilators, Symbicort, IV Solu-Medrol. He is again educated regarding the importance of complete smoking cessation. Habitrol patch is in place. We will increase his activity as tolerated. We'll continue to follow.
[2017-01-11 13:42] LABS: Glucose,Whole Blood 139 mg/dL (75-99)
--- NOTE | 2017-01-11 14:58 | P.PN ---
Subjective Principal diagnosis: Chest pain This is a 66-year-old gentleman with history of severe COPD, chronic persistent atrial fibrillation, prior aortic valve replacement, aortic dissection, being followed by Dr. Pascual at [facility]. History of prior DVT, hepatitis C, hypertension, hyperlipidemia, nicotine dependence. Patient states he quit smoking approximately 5 days ago. He states also that for the past one month or so he has noticed increase in exertional chest pressure and shortness of breath, he also states that he has been more fatigued than usual. Patient states this is been progressively worsening over the past one month to the point where he can only walk a very short distance without experiencing chest pressure with associated shortness of breath. For this reason he came to the emergency room for further evaluation. EKG shows atrial fibrillation with a slow ventricular response. Patient was seen in consultation by Dr. Flores and recommended to undergo cardiac catheterization by Dr. Sanabria. CTA of the thoracic aorta was performed yesterday which revealed small sections of dissection within the descending thoracic and proximal abdominal aorta. These were also present in August. Mild aneurysmal dilatation of the descending thoracic aorta measuring up to 4.4 cm in transverse dimension. Bilateral pleural effusions. INR today 2.2. Because of the INR still at 2.2, cardiac catheterization was deferred until tomorrow. The risks and the benefits again were explained to the patient. Check lytes BUN and creatinine PT INR in the morning. Objective - Vital Signs Vital signs: Vital Signs Temp 97.5 F L 01/11/17 11:41 Pulse 64 01/11/17 11:41 Resp 17 01/11/17 11:41 BP 130/59 01/11/17 11:41 Pulse Ox 93 L 01/11/17 11:41 Intake & Output 01/10/17 01/11/17 01/11/17 18:59 06:59 18:59 Intake Total 780 246.767 Output Total 225 Balance 555 246.767 Weight 100.6 kg Intake: Intake, IV Titration 6.767 Amount Insulin Regular 100 unit 6.767 In Sodium Chloride 0.9% 100 ml @ Titrate IV .Q0M [facility] Rx#:[id number] Oral 780 240 Output: Urine 225 Other: Voiding Method Toilet Toilet Toilet Urinal # Voids 1 1 - Exam PHYSICAL EXAMINATION: HEENT: Head is atraumatic, normocephalic. Pupils equal, round. Neck is supple. There is no elevated jugular venous pressure. HEART EXAMINATION: Heart S1 and S2 irregularly irregular systolic murmur is heard. CHEST EXAMINATION: Lungs reveal scattered coarse wheezing throughout. ABDOMEN: Soft, obese, nontender. Bowel sounds are heard. No organomegaly noted. EXTREMITIES: 1+ peripheral pulses with 1+ evidence of peripheral edema and no calf tenderness noted. Evidence of chronic venous stasis NEUROLOGIC patient is awake, alert and oriented -3. - Labs CBC & Chem 7: 01/11/17 05:51 01/11/17 05:51 Labs: Abnormal Lab Results - Last 24 Hours (Table) 01/10/17 01/10/17 01/11/17 Range/Units 16:13 20:30 05:51 WBC (3.8-10.6) k/uL RBC (4.30-5.90) m/uL Hgb (13.0-17.5) gm/dL Hct (39.0-53.0) % MCHC (31.0-37.0) g/dL Neutrophils # (1.3-7.7) k/uL Lymphocytes # (1.0-4.8) k/uL PT 21.5 H (9.0-12.0) sec Carbon Dioxide (22-30) mmol/L BUN (9-20) mg/dL Glucose (74-99) mg/dL POC Glucose (mg/dL) 143 H 162 H (75-99) mg/dL 01/11/17 01/11/17 01/11/17 Range/Units 05:51 05:51 06:19 WBC 14.4 H (3.8-10.6) k/uL RBC 4.04 L (4.30-5.90) m/uL Hgb 11.0 L (13.0-17.5) gm/dL Hct 36.5 L (39.0-53.0) % MCHC 30.2 L (31.0-37.0) g/dL Neutrophils # 13.4 H (1.3-7.7) k/uL Lymphocytes # 0.5 L (1.0-4.8) k/uL PT (9.0-12.0) sec Carbon Dioxide 31 H (22-30) mmol/L BUN 27 H (9-20) mg/dL Glucose 165 H (74-99) mg/dL POC Glucose (mg/dL) 170 H (75-99) mg/dL 01/11/17 01/11/17 Range/Units 11:38 13:40 WBC (3.8-10.6) k/uL RBC (4.30-5.90) m/uL Hgb (13.0-17.5) gm/dL Hct (39.0-53.0) % MCHC (31.0-37.0) g/dL Neutrophils # (1.3-7.7) k/uL Lymphocytes # (1.0-4.8) k/uL PT (9.0-12.0) sec Carbon Dioxide (22-30) mmol/L BUN (9-20) mg/dL Glucose (74-99) mg/dL POC Glucose (mg/dL) 278 H 139 H (75-99) mg/dL Assessment and Plan Plan: Assessment and plan #1 symptoms of midsternal chest pressure and heaviness with associated shortness of breath, suggestive of acute coronary syndrome. Troponins 0.05, 0.04, 0.04. EKG shows atrial fibrillation with slow ventricular response #2 history of aortic valve replacement #3 chronic persistent atrial fibrillation on Coumadin for anticoagulation #4 hypertension #5 hyperlipidemia #6 nicotine dependence, patient quit smoking 4-5 days ago #COPD #8 chronic aortic aneurysm being followed at [facility] #9 prior DVT #10 congestive cardiac failure diastolic in nature, BNP 1320, most recent echocardiogram with Doppler study performed in August of this year revealed an ejection fraction of 50-55%. #11 mildly abnormal liver enzymes, could be secondary to congestion. Plan Echocardiogram with Doppler study was performed which revealed an ejection fraction of 50-55%. We will check PT/INR lytes BUN and creatinine in the morning. Tentatively the patient's cardiac catheterization is scheduled for tomorrow pending the INR. DNP note has been reviewed, I agree with a documented findings and plan of care. Patient was seen and examined.
[2017-01-11 15:13] LABS: Glucose,Whole Blood 109 mg/dL (75-99)
[2017-01-11 16:08] LABS: Glucose,Whole Blood 102 mg/dL (75-99)
[2017-01-11 17:04] LABS: Glucose,Whole Blood 136 mg/dL (75-99)
[2017-01-11] MEDS: PANTOPRAZOLE 40 MG TABLET PO SCH (17:48)
--- NOTE | 2017-01-11 18:56 | P.PN ---
Subjective Date of service 01/11/2017. Progress note being dictated for Dr. Hilario. Interval history: This a 66-year-old gentleman admitted with COPD, CHF, elevated troponin and multiple other medical issues. Evaluated by cardiology and patient is re-scheduled for cardiac catheterization in a.m. Coumadin remains on hold. INR 2.2. Telemetry reporting controlled atrial fibrillation. denies chest pain, palpitations or increasing shortness of breath. Objective - Vital Signs Vital signs: Vital Signs Temp 97.6 F 01/11/17 16:00 Pulse 66 01/11/17 16:00 Resp 17 01/11/17 16:00 BP 90/65 01/11/17 16:00 Pulse Ox 92 L 01/11/17 16:00 Intake & Output 01/10/17 01/11/17 01/11/17 18:59 06:59 18:59 Intake Total 780 488.634 Output Total 225 Balance 555 488.634 Weight 100.6 kg Intake: Intake, IV Titration 8.634 Amount Insulin Regular 100 unit 8.634 In Sodium Chloride 0.9% 100 ml @ Titrate IV .Q0M [facility] Rx#:[id number] Oral 780 480 Output: Urine 225 Other: Voiding Method Toilet Toilet Toilet Urinal # Voids 1 1 - Exam PHYSICAL EXAM: VITAL SIGNS: [As above] GENERAL: [Sitting up in bed, no acute distress] HEENT: [Pupils equal conjunctiva normal.] NECK: [Supple, no JVD] RESPIRATORY EFFORT:[ Mildly increased] LUNGS: Expiratory Wheezes scattered throughout] CARDIOVASCULAR[ irregular S1 and S2, positive systolic murmur, positive edema] GI: [Abdomen soft, nontender, positive bowel sounds. No guarding, no rigidity] PSYCH: [Alert and oriented -3, mood and affect normal.] NEURO: No focal deficits - Labs CBC & Chem 7: 01/11/17 05:51 01/11/17 05:51 Labs: Abnormal Lab Results - Last 24 Hours (Table) 01/10/17 01/11/17 01/11/17 Range/Units 20:30 05:51 05:51 WBC 14.4 H (3.8-10.6) k/uL RBC 4.04 L (4.30-5.90) m/uL Hgb 11.0 L (13.0-17.5) gm/dL Hct 36.5 L (39.0-53.0) % MCHC 30.2 L (31.0-37.0) g/dL Neutrophils # 13.4 H (1.3-7.7) k/uL Lymphocytes # 0.5 L (1.0-4.8) k/uL PT 21.5 H (9.0-12.0) sec Carbon Dioxide (22-30) mmol/L BUN (9-20) mg/dL Glucose (74-99) mg/dL POC Glucose (mg/dL) 162 H (75-99) mg/dL 01/11/17 01/11/17 01/11/17 Range/Units 05:51 06:19 11:38 WBC (3.8-10.6) k/uL RBC (4.30-5.90) m/uL Hgb (13.0-17.5) gm/dL Hct (39.0-53.0) % MCHC (31.0-37.0) g/dL Neutrophils # (1.3-7.7) k/uL Lymphocytes # (1.0-4.8) k/uL PT (9.0-12.0) sec Carbon Dioxide 31 H (22-30) mmol/L BUN 27 H (9-20) mg/dL Glucose 165 H (74-99) mg/dL POC Glucose (mg/dL) 170 H 278 H (75-99) mg/dL 01/11/17 01/11/17 01/11/17 Range/Units 13:40 15:11 16:05 WBC (3.8-10.6) k/uL RBC (4.30-5.90) m/uL Hgb (13.0-17.5) gm/dL Hct (39.0-53.0) % MCHC (31.0-37.0) g/dL Neutrophils # (1.3-7.7) k/uL Lymphocytes # (1.0-4.8) k/uL PT (9.0-12.0) sec Carbon Dioxide (22-30) mmol/L BUN (9-20) mg/dL Glucose (74-99) mg/dL POC Glucose (mg/dL) 139 H 109 H 102 H (75-99) mg/dL 01/11/17 Range/Units 16:59 WBC (3.8-10.6) k/uL RBC (4.30-5.90) m/uL Hgb (13.0-17.5) gm/dL Hct (39.0-53.0) % MCHC (31.0-37.0) g/dL Neutrophils # (1.3-7.7) k/uL Lymphocytes # (1.0-4.8) k/uL PT (9.0-12.0) sec Carbon Dioxide (22-30) mmol/L BUN (9-20) mg/dL Glucose (74-99) mg/dL POC Glucose (mg/dL) 136 H (75-99) mg/dL Assessment and Plan Plan: 1. Acute exacerbation of COPD with acute purulent tracheobronchitis. 2. [ Acute on chronic CHF exacerbation, diastolic dysfunction, EF 50-55%]. 3. [ Troponin 0.055, possible acute coronary syndrome, workup in progress]. 4. [ Anemia, normocytic, possibly of chronic disease]. 5. [ Moderate pulmonary hypertension]. 6. [ CAD]. 7. [ Gastroesophageal reflux disease]. 8. History of GI bleed 9. Hypertension 10. History of aortic valve replacement, bioprosthetic valve 11. Chronic stable aortic dissection monitoring it [facility] surgery 12. Macular degeneration 13. Hepatitis C hx 14. nicotine dependence, recently quit smoking-days ago 15. History of EtOH abuse 16. Obesity, BMI 33.1 17. History of DVT Plan: Continue on current medication regime , Lasix, nebulized bronchodilators, monitoring and symptomatic treatment. Coumadin on hold for cardiac catheterization tomorrow. Follow closely with cardiology and pulmonary.Further recommendations to follow. The impression and plan of care has been dictated as directed. : I performed a H&P examination of this patient and discussed the same with the dictator. I agree with the dictator's note. Any additional findings/opinions/ etc. will be noted.
[2017-01-11 20:07] LABS: Glucose,Whole Blood 144 mg/dL (75-99)
[2017-01-11 21:04] LABS: Glucose,Whole Blood 155 mg/dL (75-99)
[2017-01-11 23:03] LABS: Glucose,Whole Blood 151 mg/dL (75-99)
[2017-01-12 01:06] LABS: Glucose,Whole Blood 163 mg/dL (75-99)
[2017-01-12] MEDS: HYDROcodone/APAP 5-325MG 1 EACH TAB PO PRN (01:14)
[2017-01-12 03:12] LABS: Glucose,Whole Blood 142 mg/dL (75-99)
[2017-01-12 05:13] LABS: Glucose,Whole Blood 163 mg/dL (75-99)
[2017-01-12 06:54] LABS: Prothrombin Time 19.3 sec (9.0-12.0)
[2017-01-12] MEDS: INSULIN LISPRO (humaLOG) 300 UNIT/3 ML VIAL SQ SCH ×3 (06:55→17:10)
[2017-01-12 06:56] LABS: Glucose,Whole Blood 140 mg/dL (75-99)
[2017-01-12 06:57] LABS: Anion Gap 10 mmol/L; Blood Urea Nitrogen 37 mg/dL (9-20); Calcium 9.1 mg/dL (8.4-10.2); Carbon Dioxide 31 mmol/L (22-30); Chloride 102 mmol/L (98-107); Glucose 133 mg/dL (74-99); Non-African American GFR(MDRD) >60 (>60 ml/min/1.73 sqM); Potassium 4.6 mmol/L (3.5-5.1); Sodium 143 mmol/L (137-145)
[2017-01-12] MEDS: methylPREDNISolone SOD SUCCI 125 MG/2 ML VIAL IV SCH (06:59)
[2017-01-12] MEDS: METOPROLOL TARTRATE 50 MG TAB PO SCH ×2 (08:43→21:59)
[2017-01-12] MEDS: MULTIVITAMINS, THERA 1 EACH TAB PO SCH (08:43)
[2017-01-12] MEDS: POTASSIUM CHLORIDE ER 20 MEQ TAB.ER PO SCH ×2 (08:43→21:59)
[2017-01-12] MEDS: ATORVASTATIN 40 MG TAB PO SCH (08:43)
[2017-01-12] MEDS: DILTIAZEM CD 240 MG CAP.ER.24H PO SCH (08:43)
[2017-01-12] MEDS: THIAMINE 100 MG TAB PO SCH (08:43)
[2017-01-12] MEDS: NICOTINE 21MG/24HR PATCH TRANSDERM SCH (08:44)
[2017-01-12] MEDS: FOLIC ACID 1 MG TAB PO SCH (08:44)
[2017-01-12] MEDS: ASPIRIN 81 MG CHEW PO SCH (08:44)
[2017-01-12] MEDS: FUROSEMIDE 40 MG TAB PO SCH ×2 (08:44→21:58)
[2017-01-12] MEDS: SPIRONOLACTONE 25 MG TAB PO SCH (08:44)
[2017-01-12] MEDS: SYMBICORT 160-4.5 MCG INHALER INHALATION SCH ×2 (09:07→20:23)
[2017-01-12] MEDS: IPRATROPIUM-ALBUTEROL 3 ML NEB INHALATION SCH ×4 (09:07→20:22)
[2017-01-12 09:18] LABS: Glucose,Whole Blood 199 mg/dL (75-99)
--- NOTE | 2017-01-12 10:50 | P.PN ---
Subjective This is a 66-year-old white male with history of multiple medical problems including severe COPD, chronic persistent atrial fibrillation, history of aortic valve replacement and aortic dissection, history of hypertension, nicotine dependence, hepatitis C, and previous history of DVT. Patient quit smoking just only a few days ago. Patient presented to the ER with 1 month history of increased shortness of breath, dyspnea on exertion. Feeling fatigued more than usual. Patient has also been complaining of chest pressure associated with shortness of breath upon exertion. Upon presentation to the ER , his chest x-ray showed cardiomegaly, and fibrotic changes, however possibility of congestive heart failure superimposed on pulmonary fibrosis, is definitely highly considered. There is definite thickening of the interstitium. Patient had atrial fibrillation with slow ventricular response, his labs were relatively unremarkable except for slightly elevated troponin level, BNP level was just over 1300. Recent echocardiogram showed good LV function. Patient was placed on bronchodilators and diuretics, not much improvement noted so far, hence I went ahead after reviewing the chest x-ray and increase his Lasix dose to 40 mg IV push every 12 hours however we will continue to closely monitor his renal profile. Patient is seen again today 01/11/2017 in follow-up on the selective care unit. He is currently sitting up in a chair at the bedside. He is awake and alert in no acute distress. He denies any worsening shortness of breath, cough or congestion. No chest pain, palpitations lightheadedness or dizziness. The plan was for cardiac catheterization today however his INR is 2.2 in the procedure may be done tomorrow. He is maintaining O2 saturations in the 90s on room air. He's been afebrile. Hemodynamically stable. Thoracic CT revealed small sections of dissection within the descending thoracic and proximal abdominal aorta. These were present in August 2016. There is also noted mild aneurysmal dilatation of the ascending thoracic aorta measuring up to 4.4 cm in transverse dimension. Small bilateral pleural effusions. The patient is seen again today 01/12/2017 in follow-up on the selective care unit. He is awake and alert in no acute distress. His INR remains 2.0 and there are no plans for cardiac catheterization today. He denies any worsening shortness of breath, cough or congestion. No chest pain, palpitations lightheadedness or dizziness. He is maintaining good O2 saturations in the mid 90s on room air. He's been hemodynamically stable. Afebrile. Objective - Vital Signs Vital signs: Vital Signs Temp 97.6 F 01/12/17 08:50 Pulse 70 01/12/17 09:20 Resp 16 01/12/17 08:50 BP 140/85 01/12/17 08:50 Pulse Ox 95 01/12/17 08:50 Intake & Output 01/11/17 01/12/17 01/12/17 18:59 06:59 18:59 Intake Total 488.634 25.024 366.5 Output Total 300 Balance 488.634 25.024 66.5 Weight 101.7 kg Intake: IV 0 Sodium Chloride 0.9% 1, 0 000 ml @ 20 mls/hr IV . Q24H [facility] Rx#:[id number] Intake, IV Titration 8.634 25.024 6.5 Amount Insulin Regular 100 unit 8.634 25.024 6.5 In Sodium Chloride 0.9% 100 ml @ Titrate IV .Q0M [facility] Rx#:[id number] Oral 480 360 Output: Urine 300 Other: Voiding Method Toilet Toilet Toilet # Voids 1 - Exam GENERAL EXAM: Alert, active, comfortable in no apparent distress. HEAD: Normocephalic. EYES: Normal reaction of pupils, equal size. NOSE: Clear with pink turbinates. THROAT: No erythema or exudates. NECK: No masses, no JVD. CHEST: No chest wall deformity. LUNGS: Equal air entry with no crackles, wheeze, rhonchi or dullness. CVS: S1 and S2 normal with no audible murmurs, irregular rhythm. ABDOMEN: No hepatosplenomegaly, normal bowel sounds, no guarding or rigidity. SPINE: No scoliosis or deformity SKIN: No rashes CENTRAL NERVOUS SYSTEM: No focal deficits, tone is normal in all 4 extremities. Extremities: There is 2 + peripheral edema. No clubbing, no cyanosis. Peripheral pulses are intact. - Labs CBC & Chem 7: 01/11/17 05:51 01/12/17 05:57 Labs: Abnormal Lab Results - Last 24 Hours (Table) 01/11/17 01/11/17 01/11/17 Range/Units 11:38 13:40 15:11 PT (9.0-12.0) sec Carbon Dioxide (22-30) mmol/L BUN (9-20) mg/dL Glucose (74-99) mg/dL POC Glucose (mg/dL) 278 H 139 H 109 H (75-99) mg/dL 01/11/17 01/11/17 01/11/17 Range/Units 16:05 16:59 20:05 PT (9.0-12.0) sec Carbon Dioxide (22-30) mmol/L BUN (9-20) mg/dL Glucose (74-99) mg/dL POC Glucose (mg/dL) 102 H 136 H 144 H (75-99) mg/dL 01/11/17 01/11/17 01/12/17 Range/Units 21:03 23:01 01:04 PT (9.0-12.0) sec Carbon Dioxide (22-30) mmol/L BUN (9-20) mg/dL Glucose (74-99) mg/dL POC Glucose (mg/dL) 155 H 151 H 163 H (75-99) mg/dL 01/12/17 01/12/17 01/12/17 Range/Units 03:09 05:10 05:57 PT (9.0-12.0) sec Carbon Dioxide 31 H (22-30) mmol/L BUN 37 H (9-20) mg/dL Glucose 133 H (74-99) mg/dL POC Glucose (mg/dL) 142 H 163 H (75-99) mg/dL 01/12/17 01/12/17 01/12/17 Range/Units 06:03 06:54 09:06 PT 19.3 H (9.0-12.0) sec Carbon Dioxide (22-30) mmol/L BUN (9-20) mg/dL Glucose (74-99) mg/dL POC Glucose (mg/dL) 140 H 199 H (75-99) mg/dL Assessment and Plan Plan: Impression: #1 Dyspnea, multifactorial secondary to acute diastolic congestive heart failure , acute exacerbation of chronic obstructive pulmonary disease and chronic nicotine addiction. #2 History of abdominal aortic aneurysm being followed at [facility]. Current measurement 4.4 cm. #3 Chronic atrial fibrillation, anticoagulated with warfarin. #4 Previous aortic valve replacement. #5 Hypertension. #6 Hyperlipidemia. #7 History of DVT. #8 Gastroesophageal reflux disease. #9 Coronary artery disease with acute coronary syndrome plan is for cardiac catheterization once INR less than 2. Plan: The patient was seen and evaluated by Dr. Downey. He is breathing easier today as compared to yesterday. Still somewhat of a wheeze. We'll continue his treatment for his COPD exacerbation with bronchodilators, Symbicort, IV Solu- Medrol. He is again educated regarding the importance of complete smoking cessation. Habitrol patch is in place. We will increase his activity as tolerated. We'll continue to follow.
[2017-01-12 11:12] LABS: Glucose,Whole Blood 199 mg/dL (75-99)
[2017-01-12 13:06] LABS: Glucose,Whole Blood 145 mg/dL (75-99)
--- NOTE | 2017-01-12 14:21 | P.PN ---
Subjective Date of service 01/12/2017. Progress note being dictated for Dr. Hilario. Interval history: This a 66-year-old gentleman admitted with COPD, CHF, elevated troponin and multiple other medical issues. Evaluated by cardiology and patient is re-scheduled for cardiac catheterization in a.m. Coumadin on hold. INR 2.0. Telemetry reporting controlled atrial fibrillation. denies chest pain, palpitations or increasing shortness of breath. Objective - Vital Signs Vital signs: Vital Signs Temp 97.6 F 01/12/17 08:50 Pulse 74 01/12/17 12:02 Resp 16 01/12/17 08:50 BP 140/85 01/12/17 08:50 Pulse Ox 95 01/12/17 08:50 Intake & Output 01/11/17 01/12/17 01/12/17 18:59 06:59 18:59 Intake Total 488.634 25.024 606.5 Output Total 300 Balance 488.634 25.024 306.5 Weight 101.7 kg Intake: IV 0 Sodium Chloride 0.9% 1, 0 000 ml @ 20 mls/hr IV . Q24H [facility] Rx#:[id number] Intake, IV Titration 8.634 25.024 6.5 Amount Insulin Regular 100 unit 8.634 25.024 6.5 In Sodium Chloride 0.9% 100 ml @ Titrate IV .Q0M [facility] Rx#:[id number] Oral 480 600 Output: Urine 300 Other: Voiding Method Toilet Toilet Toilet # Voids 1 - Exam PHYSICAL EXAM: VITAL SIGNS: [As above] GENERAL: [Sitting up in bed, no acute distress] HEENT: [Pupils equal conjunctiva normal.] NECK: [Supple, no JVD] RESPIRATORY EFFORT:[ Mildly increased] LUNGS: Expiratory Wheezes greater on left lower lobe] CARDIOVASCULAR[ irregular S1 and S2, positive systolic murmur, positive edema] GI: [Abdomen soft, nontender, positive bowel sounds. No guarding, no rigidity] PSYCH: [Alert and oriented -3, mood and affect normal.] NEURO: No focal deficits - Labs CBC & Chem 7: 01/11/17 05:51 01/12/17 05:57 Labs: Abnormal Lab Results - Last 24 Hours (Table) 01/11/17 01/11/17 01/11/17 Range/Units 15:11 16:05 16:59 PT (9.0-12.0) sec Carbon Dioxide (22-30) mmol/L BUN (9-20) mg/dL Glucose (74-99) mg/dL POC Glucose (mg/dL) 109 H 102 H 136 H (75-99) mg/dL 01/11/17 01/11/17 01/11/17 Range/Units 20:05 21:03 23:01 PT (9.0-12.0) sec Carbon Dioxide (22-30) mmol/L BUN (9-20) mg/dL Glucose (74-99) mg/dL POC Glucose (mg/dL) 144 H 155 H 151 H (75-99) mg/dL 01/12/17 01/12/17 01/12/17 Range/Units 01:04 03:09 05:10 PT (9.0-12.0) sec Carbon Dioxide (22-30) mmol/L BUN (9-20) mg/dL Glucose (74-99) mg/dL POC Glucose (mg/dL) 163 H 142 H 163 H (75-99) mg/dL 01/12/17 01/12/17 01/12/17 Range/Units 05:57 06:03 06:54 PT 19.3 H (9.0-12.0) sec Carbon Dioxide 31 H (22-30) mmol/L BUN 37 H (9-20) mg/dL Glucose 133 H (74-99) mg/dL POC Glucose (mg/dL) 140 H (75-99) mg/dL 01/12/17 01/12/17 01/12/17 Range/Units 09:06 11:03 13:03 PT (9.0-12.0) sec Carbon Dioxide (22-30) mmol/L BUN (9-20) mg/dL Glucose (74-99) mg/dL POC Glucose (mg/dL) 199 H 199 H 145 H (75-99) mg/dL Assessment and Plan Plan: 1. Acute exacerbation of COPD with acute purulent tracheobronchitis. 2. [ Acute on chronic CHF exacerbation, diastolic dysfunction, EF 50-55%]. 3. [ Troponin 0.055, possible acute coronary syndrome, workup in progress]. 4. [ Anemia, normocytic, possibly of chronic disease]. 5. [ Moderate pulmonary hypertension]. 6. [ CAD]. 7. [ Gastroesophageal reflux disease]. 8. History of GI bleed 9. Hypertension 10. History of aortic valve replacement, bioprosthetic valve 11. Chronic stable aortic dissection monitoring it [facility] surgery 12. Macular degeneration 13. Hepatitis C hx 14. nicotine dependence, recently quit smoking-days ago 15. History of EtOH abuse 16. Obesity, BMI 33.1 17. History of DVT Plan: Continue on current medication regime , Lasix, nebulized bronchodilators, monitoring and symptomatic treatment. Daily PT, INR with Coumadin on hold for cardiac catheterization tomorrow. Smoking cessation readdressed.Further recommendations to follow. The impression and plan of care has been dictated as directed. : I performed a H&P examination of this patient and discussed the same with the dictator. I agree with the dictator's note. Any additional findings/opinions/ etc. will be noted.
[2017-01-12 15:11] LABS: Glucose,Whole Blood 86 mg/dL (75-99)
[2017-01-12 15:51] LABS: Glucose,Whole Blood 89 mg/dL (75-99)
[2017-01-12 16:26] LABS: Glucose,Whole Blood 118 mg/dL (75-99)
[2017-01-12 16:57] LABS: Glucose,Whole Blood 126 mg/dL (75-99)
[2017-01-12] MEDS: PREGABALIN 50 MG CAP PO SCH ×2 (17:11→21:59)
[2017-01-12] MEDS: PANTOPRAZOLE 40 MG TABLET PO SCH (17:12)
--- NOTE | 2017-01-12 17:25 | PN ---
Mr. Duran is a 66-year-old male with a history of aortic valve replacement who has been having episode of chest discomfort. He also has a history of persistent atrial fibrillation and severe chronic obstructive lung disease. He has a history of aortic dissection that has been stable. He is doing well this morning. He is ambulating without difficulty. He denies any dizziness, palpitation. He denies any nausea. His INR was still elevated so his cardiac catheterization was scheduled for tomorrow. He continues to be at this time on aspirin once a day, Lipitor 40 mg daily, diltiazem CD 240 mg daily, Lasix 40 mg twice a day, insulin, ipratropium, metoprolol tartrate 200 mg twice a day, Protonix, prednisone 40 mg daily, spironolactone 25 mg daily and thiamine. PHYSICAL EXAMINATION: Blood pressure 140/80 with a heart rate in 60s. LUNGS: With decreased air exchange. No wheezes. HEART: Irregularly irregular. S1, S2, no S3, with systolic murmur. No rub. ABDOMEN: Soft, nontender, positive bowel sounds. No organomegaly. EXTREMITIES: No edema. Lab data revealed data revealed an INR of 2.0. IMPRESSION: 1. Chest discomfort, could be angina pectoris. The patient is scheduled to undergo cardiac catheterization tomorrow by Dr. Sanabria. 2. Status post aortic valve replacement with bioprosthetic valve. 3. History of persistent atrial fibrillation. 4. History of chronic obstructive pulmonary disease. 5. Hyperlipidemia. RECOMMENDATIONS: Patient will proceed with a cardiac catheterization tomorrow and depending on those findings, further recommendation will be made.
[2017-01-12 17:36] LABS: Glucose,Whole Blood 127 mg/dL (75-99)
[2017-01-12 18:22] LABS: Glucose,Whole Blood 146 mg/dL (75-99)
[2017-01-12 21:25] LABS: Glucose,Whole Blood 140 mg/dL (75-99)
[2017-01-13 00:07] LABS: Glucose,Whole Blood 169 mg/dL (75-99)
[2017-01-13 01:08] LABS: Glucose,Whole Blood 161 mg/dL (75-99)
[2017-01-13 03:06] LABS: Glucose,Whole Blood 120 mg/dL (75-99)
[2017-01-13 05:26] LABS: Glucose,Whole Blood 118 mg/dL (75-99)
[2017-01-13] MEDS: INSULIN LISPRO (humaLOG) 300 UNIT/3 ML VIAL SQ SCH ×4 (06:10→21:41)
[2017-01-13] MEDS: ASPIRIN 81 MG CHEW PO SCH (06:21)
[2017-01-13] MEDS: THIAMINE 100 MG TAB PO SCH (06:21)
[2017-01-13] MEDS: METOPROLOL TARTRATE 50 MG TAB PO SCH ×2 (06:21→20:17)
[2017-01-13] MEDS: FOLIC ACID 1 MG TAB PO SCH (06:21)
[2017-01-13] MEDS: DILTIAZEM CD 240 MG CAP.ER.24H PO SCH (06:21)
[2017-01-13] MEDS: predniSONE 20 MG TAB PO SCH (06:22)
[2017-01-13] MEDS: PREGABALIN 50 MG CAP PO SCH ×2 (06:22→20:17)
[2017-01-13] MEDS: POTASSIUM CHLORIDE ER 20 MEQ TAB.ER PO SCH ×2 (06:22→20:17)
[2017-01-13 06:42] LABS: INR 1.8 (<1.1); Prothrombin Time 17.1 sec (9.0-12.0)
[2017-01-13 07:07] LABS: Glucose,Whole Blood 138 mg/dL (75-99)
[2017-01-13 07:37] LABS: Glucose,Whole Blood 126 mg/dL (75-99)
[2017-01-13] MEDS: SYMBICORT 160-4.5 MCG INHALER INHALATION SCH ×3 (08:36→19:57)
[2017-01-13] MEDS: IPRATROPIUM-ALBUTEROL 3 ML NEB INHALATION SCH ×5 (08:37→19:57)
[2017-01-13] MEDS: ATORVASTATIN 40 MG TAB PO SCH (09:03)
[2017-01-13] MEDS ORDERED: MIDAZOLAM 2 MG/2 ML VIAL ONE (09:39)
[2017-01-13] MEDS ORDERED: fentaNYL (PF) 50 MCG/ML 2 ML AMP ONE (09:40)
[2017-01-13] MEDS ORDERED: LIDOCAINE 2% INJ 20 MG/ML (20 ML MDV) ONE (09:40)
[2017-01-13] MEDS ORDERED: IV FLUID CONTINUATION 400 ML IV ONE (09:48)
[2017-01-13] MEDS ORDERED: VERAPAMIL 2.5 MG/ML 2 ML AMP ONE ×2 (10:01→10:30)
[2017-01-13] MEDS: fentaNYL (PF) 50 MCG/ML 2 ML AMP IV ONE ×4 (10:09→11:15)
[2017-01-13] MEDS: MIDAZOLAM 2 MG/2 ML VIAL IV ONE ×2 (10:09→11:05)
[2017-01-13] MEDS ORDERED: HEPARIN SODIUM 1,000 UNIT/ML VIAL ONE (10:11)
[2017-01-13] MEDS ORDERED: LIDOCAINE 2% INJ 20 MG/ML SQ ONE (10:11)
[2017-01-13] MEDS ORDERED: VERAPAMIL SYRINGE (5 MG/10 ML) INTRAARTER ONE ×2 (10:13→10:40)
[2017-01-13] MEDS ORDERED: HEPARIN SODIUM 1,000 UNIT/ML VIAL IV ONE (10:20)
[2017-01-13] MEDS: NITROGLYCERIN 1000MCG/10ML SYRINGE INTRAARTER ONE ×2 (10:33→12:20)
[2017-01-13] MEDS ORDERED: CLOPIDOGREL 75 MG TAB ONE (12:04)
[2017-01-13] MEDS ORDERED: BIVALIRUDIN BOLUS 250 MG/50 ML IV ONE (12:05)
[2017-01-13] MEDS ORDERED: BIVALIRUDIN 250 MG in SODIUM CHLORIDE 0.9% 50 ML IV ONE (12:06)
--- NOTE | 2017-01-13 12:08 | P.PN ---
Subjective This is a 66-year-old white male with history of multiple medical problems including severe COPD, chronic persistent atrial fibrillation, history of aortic valve replacement and aortic dissection, history of hypertension, nicotine dependence, hepatitis C, and previous history of DVT. Patient quit smoking just only a few days ago. Patient presented to the ER with 1 month history of increased shortness of breath, dyspnea on exertion. Feeling fatigued more than usual. Patient has also been complaining of chest pressure associated with shortness of breath upon exertion. Upon presentation to the ER , his chest x-ray showed cardiomegaly, and fibrotic changes, however possibility of congestive heart failure superimposed on pulmonary fibrosis, is definitely highly considered. There is definite thickening of the interstitium. Patient had atrial fibrillation with slow ventricular response, his labs were relatively unremarkable except for slightly elevated troponin level, BNP level was just over 1300. Recent echocardiogram showed good LV function. Patient was placed on bronchodilators and diuretics, not much improvement noted so far, hence I went ahead after reviewing the chest x-ray and increase his Lasix dose to 40 mg IV push every 12 hours however we will continue to closely monitor his renal profile. Patient is seen again today 01/11/2017 in follow-up on the selective care unit. He is currently sitting up in a chair at the bedside. He is awake and alert in no acute distress. He denies any worsening shortness of breath, cough or congestion. No chest pain, palpitations lightheadedness or dizziness. The plan was for cardiac catheterization today however his INR is 2.2 in the procedure may be done tomorrow. He is maintaining O2 saturations in the 90s on room air. He's been afebrile. Hemodynamically stable. Thoracic CT revealed small sections of dissection within the descending thoracic and proximal abdominal aorta. These were present in August 2016. There is also noted mild aneurysmal dilatation of the ascending thoracic aorta measuring up to 4.4 cm in transverse dimension. Small bilateral pleural effusions. The patient is seen again today 01/12/2017 in follow-up on the selective care unit. He is awake and alert in no acute distress. His INR remains 2.0 and there are no plans for cardiac catheterization today. He denies any worsening shortness of breath, cough or congestion. No chest pain, palpitations lightheadedness or dizziness. He is maintaining good O2 saturations in the mid 90s on room air. He's been hemodynamically stable. Afebrile. The patient was seen again today 01/13/2017 in follow-up on the selective care unit. He is resting comfortably in bed. He is awake and alert in no acute distress. The plan is for cardiac catheterization today. INR 1.8. Currently denies any worsening shortness of breath, cough or congestion. No chest pain, palpitations dizziness or lightheadedness. Objective - Vital Signs Vital signs: Vital Signs Temp 98.7 F 01/13/17 06:11 Pulse 59 L 01/13/17 08:00 Resp 16 01/13/17 08:00 BP 123/71 01/13/17 08:00 Pulse Ox 94 L 01/13/17 08:00 Intake & Output 01/12/17 01/13/17 01/13/17 18:59 06:59 18:59 Intake Total 623.183 14.383 Output Total 1300 200 Balance -676.817 14.383 -200 Weight 102.2 kg Intake: Intake, IV Titration 23.183 14.383 Amount Insulin Regular 100 unit 23.183 14.383 In Sodium Chloride 0.9% 100 ml @ Titrate IV .Q0M JAYLA Rx#:[id number] Oral 600 Output: Urine 1300 200 Other: Voiding Method Toilet # Voids 1 1 - Exam GENERAL EXAM: Alert, active, comfortable in no apparent distress. HEAD: Normocephalic. EYES: Normal reaction of pupils, equal size. NOSE: Clear with pink turbinates. THROAT: No erythema or exudates. NECK: No masses, no JVD. CHEST: No chest wall deformity. LUNGS: Equal air entry with no crackles, wheeze, rhonchi or dullness. CVS: S1 and S2 normal with no audible murmurs, irregular rhythm. ABDOMEN: No hepatosplenomegaly, normal bowel sounds, no guarding or rigidity. SPINE: No scoliosis or deformity SKIN: No rashes CENTRAL NERVOUS SYSTEM: No focal deficits, tone is normal in all 4 extremities. Extremities: There is 2 + peripheral edema. No clubbing, no cyanosis. Peripheral pulses are intact. - Labs CBC & Chem 7: 01/11/17 05:51 01/12/17 05:57 Labs: Abnormal Lab Results - Last 24 Hours (Table) 01/12/17 01/12/17 01/12/17 Range/Units 13:03 16:25 16:54 PT (9.0-12.0) sec POC Glucose (mg/dL) 145 H 118 H 126 H (75-99) mg/dL 01/12/17 01/12/17 01/12/17 Range/Units 17:34 18:18 21:23 PT (9.0-12.0) sec POC Glucose (mg/dL) 127 H 146 H 140 H (75-99) mg/dL 01/13/17 01/13/17 01/13/17 Range/Units 00:06 01:07 03:05 PT (9.0-12.0) sec POC Glucose (mg/dL) 169 H 161 H 120 H (75-99) mg/dL 01/13/17 01/13/17 01/13/17 Range/Units 05:15 05:51 07:02 PT 17.1 H (9.0-12.0) sec POC Glucose (mg/dL) 118 H 138 H (75-99) mg/dL 01/13/17 Range/Units 07:35 PT (9.0-12.0) sec POC Glucose (mg/dL) 126 H (75-99) mg/dL Assessment and Plan Plan: Impression: #1 Dyspnea, multifactorial secondary to acute diastolic congestive heart failure , acute exacerbation of chronic obstructive pulmonary disease and chronic nicotine addiction. #2 History of abdominal aortic aneurysm being followed at [facility]. Current measurement 4.4 cm. #3 Chronic atrial fibrillation, anticoagulated with warfarin. #4 Previous aortic valve replacement. #5 Hypertension. #6 Hyperlipidemia. #7 History of DVT. #8 Gastroesophageal reflux disease. #9 Coronary artery disease with acute coronary syndrome plan is for cardiac catheterization today. INR 1.8 Plan: The patient was seen and evaluated by Dr. Downey. We'll continue his treatment for his COPD exacerbation with bronchodilators, Symbicort, IV Solu-Medrol. He is again educated regarding the importance of complete smoking cessation. Habitrol patch is in place. We will increase his activity as tolerated. We will await cardiac catheterization results. We'll continue to follow.
[2017-01-13] MEDS ORDERED: CLOPIDOGREL 75 MG TAB PO ONE (12:10)
[2017-01-13] MEDS ORDERED: IOHEXOL 350 MG/ML 125ML BOTTLE INJ ONE (12:33)
--- NOTE | 2017-01-13 12:43 | P.PCN ---
Date of Procedure: 01/13/17 Preoperative Diagnosis: Unstable angina Postoperative Diagnosis: Critical lesion involving the proximal left anterior descending and mild disease involving the ostium of the left main Procedure(s) Performed: Left heart catheterization without left ventriculography Implants: Indications for Procedure: Operative Findings: Description of Procedure: HISTORY: His is a 66-year-old gentleman with history of aortic valve replacement and also documented mild dissection of the thoracic and abdominal aorta was admitted to the hospital with complaints of chest pain size to of unstable angina. Patient was on Coumadin and after reversal of INR to be low to patient is advised to have a cardiac catheterization. Because of history of dissection and thoracic and abdominal aorta. Patient is advised to have cardiac cath for the left radial approach. Conscious sedation: Patient was given 1.5 mg of Versed and 25 g of fentanyl for the duration was 1-1/2 hours CONSENT:I have discussed the risks, benefits and alternative therapies for the above-mentioned procedure and for both sedation/analgesia as well as necessary blood product administration, if indicated, as they pertain to this patient. The patient has indicated understanding and acceptance of the risks and procedures discussed. PROCEDURE: Patient was brought to the lab in a fasting state. Patient was given some IV sedation. The left radial area is prepped and draped in the usual fashion. The skin was infiltrated with lidocaine. The left radial artery was entered using Seldinger technique and a 6-Nigerien sheath was left in place. Patient was given IV verapamil 2 mg. Attempts were made to do left heart catheterization through the left radial approach. However was encountered difficulties engaging the left coronary system. The right coronary artery was selectively studied from this approach. Subsequently, The right groin is infiltrated with lidocaine and right femoral artery was entered using Seldinger technique. A 6-Nigerien catheter was left in place and selective coronary arteriography of the left coronary system was performed. Patient tolerated the procedure well. Patient was found to have critical lesion involving the LAD and went on to have stent placement by Dr. Flores. HEMODYNAMICS: The aortic pressure is 140/80. Left ankle end-diastolic pressures were not obtained SELECTIVE CORONARY ARTERIOGRAPHY: LEFT MAIN: There appears to be mild ostial stenosis of left main THE LEFT ANTERIOR DESCENDING CORONARY ARTERY: This is a good caliber vessel with about 80-90% stenosis of the proximal LAD before the origin of the major diagonal. The distal LAD appears to be relatively small in caliber. THE LEFT CIRCUMFLEX AND IS CORONARY ARTERY: This is a good caliber vessel free of any significant occlusive disease THE RIGHT CORONARY ARTERY: This is a good caliber vessel and nondominant, free of occlusive disease LEFT VENTRICULOGRAPHY: Not performed FINAL IMPRESSION: #1. Critical lesion involving the proximal LAD. 2. Mild ostial stenosis of left main PLAN: Stent placement of the LAD PROGNOSIS:fair
[2017-01-13] MEDS ORDERED: ATROPINE SULFATE 0.1 MG/ML 10ML SYRINGE IV PRN (12:46)
[2017-01-13] MEDS ORDERED: RX INFO: IV CONTRAST WAS GIVEN 1 EACH MISC MISCELLANE PRN (12:46)
[2017-01-13] MEDS ORDERED: NITROGLYCERIN SL TABS 0.4 MG TAB SUBLINGUAL PRN (12:46)
[2017-01-13] MEDS ORDERED: ZOLPIDEM 5 MG TAB PO PRN (12:46)
[2017-01-13] MEDS ORDERED: MAG HYDROX/AL HYDROX/SIMETH 30 ML CUP PO PRN (12:46)
[2017-01-13] MEDS ORDERED: SODIUM CHLORIDE 0.9% 1,000 ML IV SCH (13:00)
[2017-01-13 13:24] LABS: Glucose,Whole Blood 152 mg/dL (75-99)
[2017-01-13] MEDS: SPIRONOLACTONE 25 MG TAB PO SCH (13:33)
[2017-01-13] MEDS: FUROSEMIDE 40 MG TAB PO SCH ×2 (13:34→20:17)
[2017-01-13] MEDS: HYDROcodone/APAP 5-325MG 1 EACH TAB PO PRN ×2 (13:34→22:54)
[2017-01-13] MEDS: MULTIVITAMINS, THERA 1 EACH TAB PO SCH (14:55)
[2017-01-13] MEDS: NICOTINE 21MG/24HR PATCH TRANSDERM SCH (15:18)
[2017-01-13] MEDS: LOSARTAN 25 MG TAB PO SCH (15:39)
[2017-01-13] MEDS: ALPRAZolam 0.25 MG TAB PO PRN ×2 (16:39→23:02)
[2017-01-13] MEDS ORDERED: amLODIPine 5 MG TAB PO STA (16:53)
[2017-01-13 17:13] LABS: Glucose,Whole Blood 138 mg/dL (75-99)
--- NOTE | 2017-01-13 17:48 | PN ---
Patient underwent cardiac catheterization and was found to have critical stenosis in LAD. Patient underwent stenting of LAD. Patient's INR is 1.8. Patient will be discharged back on Coumadin. REVIEW OF SYSTEMS: CARDIOVASCULAR: No chest pain, no orthopnea, no PND, no palpitations. PULMONARY: Denied any shortness of breath. No cough or hemoptysis. GASTROINTESTINAL: No diarrhea, nausea or vomiting. No abdominal pain. Normoactive bowel sounds. NEUROLOGIC: No headaches, no weakness, no numbness. Medications are reviewed. PHYSICAL EXAMINATION: VITAL SIGNS: Temperature 98.7, pulse of 58, respiratory rate of 18, blood pressure 162/72. Saturating at 93% on 2 L of oxygen by nasal cannula. GENERAL: The patient is alert and oriented x3, not in any acute distress. Well developed, well nourished. HEENT: Pupils are round and equally reacting to light. EOMI. No scleral icterus. No conjunctival pallor. Normocephalic, atraumatic. No pharyngeal erythema. No thyromegaly. CARDIOVASCULAR: S1 and S2 present. No murmurs, rubs, or gallops. PULMONARY: Minimal expiratory wheezing was appreciated. Mild decreased air entry to bilateral lung melendrez. ABDOMEN: Soft, nontender, nondistended, normoactive bowel sounds. No palpable organomegaly. MUSCULOSKELETAL: No joint swelling or deformity. EXTREMITIES: No cyanosis, clubbing, or pedal edema. NEUROLOGICAL: Gross neurological examination did not reveal any focal deficits. SKIN: No rashes. LABORATORY DATA: None available from today. All the lab data will be repeated for tomorrow; CBC and comprehensive metabolic profile. ASSESSMENT AND PLAN: 1. Unstable angina. 2. Eht-NW-ueaehtf-elevation myocardial infarction. Patient underwent cardiac catheterization and stenting of LAD. 3. Exacerbation of chronic obstructive pulmonary disease and acute hypercapnic respiratory failure secondary to chronic obstructive pulmonary disease exacerbation, improved. 4. Moderate pulmonary hypertension. 5. Congestive heart failure with chronic diastolic dysfunction with acute exacerbation on admission. Patient is euvolemic at this point of time. 6. Coronary artery disease. 7. Hypertension. 8. Macular degeneration. 9. Hepatitis C. 10. History of deep venous thrombosis, for which patient is on Coumadin; patient will be restarted on Coumadin. PLAN: To continue with current medications. Clinical monitoring. Repeat electrolytes, kidney function tomorrow. Possibility of discharge in a day or two.
[2017-01-13] MEDS: PANTOPRAZOLE 40 MG TABLET PO SCH (18:23)
[2017-01-13 21:14] LABS: Glucose,Whole Blood 126 mg/dL (75-99)
--- NOTE | 2017-01-13 21:30 | XR ---
EXAMINATION TYPE: XR chest 1V portable DATE OF EXAM: 01/13/2017 COMPARISON: Prior chest x-ray 01/09/2017 HISTORY: Congestive heart failure TECHNIQUE: Single frontal view of the chest is obtained. FINDINGS: There is bilateral airspace disease, prominence of interstitium. Patient is rotated and po st median sternotomy. No evident pneumothorax or pleural effusion. Suspect heart is enlarged. IMPRESSION: Findings suggest congestive heart failure, follow-up recommended.
--- NOTE | 2017-01-13 22:47 | PTCA ---
DATE OF SERVICE: Mr. Duran is a 66-year-old male, status post aortic valve replacement, chronic dissection of the aorta, who presented with symptoms of angina pectoris and has a history of atrial fibrillation. He underwent cardiac catheterization by Dr. Sanabria and was found to have critical stenosis involving the proximal LAD. In view of that, recommendation was regarding angioplasty and stenting. The procedure as well as risk and complications were discussed with the patient, who was in full understanding and agreement. PROCEDURE: A 6 Estonian FL3-1/2 guiding catheter was introduced into the system. After cannulating the left main, a 0.014 balanced medium-weight J-wire was advanced across the lesion, positioned distally. Then a 2.5 x 12 mm Trek balloon was advanced. Two inflations at the maximum of 8 atmospheres were done. Following that, the balloon was removed and a 2.75 x 18 mm Xience Alpine stent was deployed, post dilated to 16 atmospheres. After the last inflation, after appropriate wait, the balloon and the guidewire were withdrawn back into the guiding catheter. Images were obtained and repeated. Those images revealed stable successful stenting. At that point the guiding catheter, the balloon and the guidewire were removed. The sheath was sutured in place. The patient was returned to his room in stable condition. Of note, patient had received Angiomax per protocol as well as oral loading dose of clopidogrel. He had no significant chest pain or EKG changes with the inflation. RESULT: Successful stenting of the proximal LAD with reduction in stenosis from 90% to 0%. RECOMMENDATION: Patient will be continued on Plavix, Coumadin, as well as a statin. The importance of antiplatelet treatment was discussed with the patient and his family, who were in full understanding and agreement.
--- NOTE | 2017-01-13 22:50 | LTR ---
January 13, 2017 RE: Sylvain Duran Dear Dr. Colin, I had the pleasure of performing coronary angioplasty and stenting on Mr. Duran at [facility] on January 13, 2017. A full copy of the procedure note will be forwarded to you. In brief, he was found to have significant disease in the proximal LAD and underwent successful stenting of that vessel. I am hopeful that this procedure will stabilize his status. Thank you again for allowing me to participate in his care. Please feel to call with any questions. Sincerely, JANES PRINCE MD
[2017-01-14 03:53] VITALS: TEMP 97.4
[2017-01-14 06:25] LABS: Glucose,Whole Blood 84 mg/dL (75-99)
[2017-01-14] MEDS: INSULIN LISPRO (humaLOG) 300 UNIT/3 ML VIAL SQ SCH ×2 (06:27→12:28)
[2017-01-14 06:41] LABS: CH 27.4; CHCM 31.5; HDW 3.23; Hypochromasia Moderate; MCH 27.5 pg (25.0-35.0); MCHC 31.5 g/dL (31.0-37.0); MCV 87.4 fL (80.0-100.0); Mean Platelet Volume 7.1; RBC 4.35 m/uL (4.30-5.90); RDW 14.7 % (11.5-15.5); WBC 12.9 k/uL (3.8-10.6)
[2017-01-14 06:54] LABS: INR 1.4 (<1.1)
[2017-01-14 07:02] LABS: Anion Gap 11 mmol/L; Blood Urea Nitrogen 32 mg/dL (9-20); Calcium 8.6 mg/dL (8.4-10.2); Carbon Dioxide 36 mmol/L (22-30); Chloride 96 mmol/L (98-107); Glucose 90 mg/dL (74-99); Non-African American GFR(MDRD) >60 (>60 ml/min/1.73 sqM); Potassium 4.2 mmol/L (3.5-5.1); Sodium 143 mmol/L (137-145)
[2017-01-14] MEDS: IPRATROPIUM-ALBUTEROL 3 ML NEB INHALATION SCH ×3 (08:16→16:41)
[2017-01-14] MEDS: SYMBICORT 160-4.5 MCG INHALER INHALATION SCH (08:16)
[2017-01-14 08:22] VITALS: RESP 16
[2017-01-14] MEDS: predniSONE 20 MG TAB PO SCH (08:23)
[2017-01-14] MEDS: PREGABALIN 50 MG CAP PO SCH (08:23)
[2017-01-14] MEDS: ATORVASTATIN 40 MG TAB PO SCH (08:24)
[2017-01-14] MEDS: THIAMINE 100 MG TAB PO SCH (08:24)
[2017-01-14] MEDS: FUROSEMIDE 40 MG TAB PO SCH (08:24)
[2017-01-14] MEDS: DILTIAZEM CD 240 MG CAP.ER.24H PO SCH (08:24)
[2017-01-14] MEDS: FOLIC ACID 1 MG TAB PO SCH (08:24)
[2017-01-14] MEDS: POTASSIUM CHLORIDE ER 20 MEQ TAB.ER PO SCH (08:24)
[2017-01-14] MEDS: MULTIVITAMINS, THERA 1 EACH TAB PO SCH (08:24)
[2017-01-14] MEDS: METOPROLOL TARTRATE 50 MG TAB PO SCH (08:25)
[2017-01-14] MEDS: SPIRONOLACTONE 25 MG TAB PO SCH (08:25)
[2017-01-14] MEDS: NICOTINE 21MG/24HR PATCH TRANSDERM SCH (08:29)
[2017-01-14] MEDS ORDERED: CLOPIDOGREL 75 MG TAB PO SCH (09:00)
[2017-01-14] MEDS ORDERED: ASPIRIN 81 MG CHEW PO SCH (09:00)
--- NOTE | 2017-01-14 09:00 | PN ---
Mr. Duran is a 66-year-old male status post aortic valve replacement, chronic atrial fibrillation presented with symptoms of angina pectoris, underwent cardiac catheterization by Dr. Sanabria and was found to have critical stenosis involving the LAD. Underwent successful stenting of that vessel. He is doing well this morning. He denies any chest pain. His breathing has been stable. He continues on aspirin 81 mg daily, Plavix 75 mg daily, Diltiazem CD 240 mg daily, Lasix 40 mg p.o. twice a day, losartan 25 mg and Metoprolol tartrate 100 mg twice a day, Protonix, potassium, prednisone, spironolactone 25 mg daily. PHYSICAL EXAMINATION: Blood pressure 150/60 with a heart in the 50s. LUNGS: Clear. HEART: Irregularly irregular. S1, S2 with systolic murmur. No diastolic murmur. ABDOMEN: Soft, obese, nontender. RIGHT GROIN: No hematoma. Left pulse intact. Lab data revealed BUN, creatinine 32 and 0.93. Hemoglobin of 12. EKG revealed no acute changes. IMPRESSION: 1. Status post stenting of the left anterior descending. 2. Chronic atrial fibrillation. 3. Status post AVR. RECOMMENDATIONS: Patient should be able to be discharged home today. He will resume his Coumadin. He will follow up with Dr. Sanabria next week. KRISTEN
[2017-01-14] MEDS: LOSARTAN 25 MG TAB PO SCH (11:35)
--- NOTE | 2017-01-14 11:49 | P.PN ---
Subjective This is a 66-year-old white male with history of multiple medical problems including severe COPD, chronic persistent atrial fibrillation, history of aortic valve replacement and aortic dissection, history of hypertension, nicotine dependence, hepatitis C, and previous history of DVT. Patient quit smoking just only a few days ago. Patient presented to the ER with 1 month history of increased shortness of breath, dyspnea on exertion. Feeling fatigued more than usual. Patient has also been complaining of chest pressure associated with shortness of breath upon exertion. Upon presentation to the ER , his chest x-ray showed cardiomegaly, and fibrotic changes, however possibility of congestive heart failure superimposed on pulmonary fibrosis, is definitely highly considered. There is definite thickening of the interstitium. Patient had atrial fibrillation with slow ventricular response, his labs were relatively unremarkable except for slightly elevated troponin level, BNP level was just over 1300. Recent echocardiogram showed good LV function. Patient was placed on bronchodilators and diuretics, not much improvement noted so far, hence I went ahead after reviewing the chest x-ray and increase his Lasix dose to 40 mg IV push every 12 hours however we will continue to closely monitor his renal profile. Patient is seen again today 01/11/2017 in follow-up on the selective care unit. He is currently sitting up in a chair at the bedside. He is awake and alert in no acute distress. He denies any worsening shortness of breath, cough or congestion. No chest pain, palpitations lightheadedness or dizziness. The plan was for cardiac catheterization today however his INR is 2.2 in the procedure may be done tomorrow. He is maintaining O2 saturations in the 90s on room air. He's been afebrile. Hemodynamically stable. Thoracic CT revealed small sections of dissection within the descending thoracic and proximal abdominal aorta. These were present in August 2016. There is also noted mild aneurysmal dilatation of the ascending thoracic aorta measuring up to 4.4 cm in transverse dimension. Small bilateral pleural effusions. The patient is seen again today 01/12/2017 in follow-up on the selective care unit. He is awake and alert in no acute distress. His INR remains 2.0 and there are no plans for cardiac catheterization today. He denies any worsening shortness of breath, cough or congestion. No chest pain, palpitations lightheadedness or dizziness. He is maintaining good O2 saturations in the mid 90s on room air. He's been hemodynamically stable. Afebrile. The patient was seen again today 01/13/2017 in follow-up on the selective care unit. He is resting comfortably in bed. He is awake and alert in no acute distress. The plan is for cardiac catheterization today. INR 1.8. Currently denies any worsening shortness of breath, cough or congestion. No chest pain, palpitations dizziness or lightheadedness. The patient is seen today 01/14/2017 in follow-up on the selective care unit. He is awake and alert in no acute distress. He did undergo cardiac catheterization and subsequent stenting to the LAD yesterday. He's been up ambulating in the snyder without distress. He denies any worsening shortness of breath, cough or congestion. No chest pain, palpitations, lightheadedness or dizziness. He is anxious to go home. Objective - Vital Signs Vital signs: Vital Signs Temp 97.4 F L 01/14/17 03:52 Pulse 60 01/14/17 11:35 Resp 16 01/14/17 11:28 BP 88/56 01/14/17 11:28 Pulse Ox 95 01/14/17 11:30 Intake & Output 01/13/17 01/14/17 01/14/17 18:59 06:59 18:59 Intake Total 279.4 360 Output Total 1700 1500 Balance -1420.6 -1500 360 Weight 96.4 kg Intake: IV 279.4 Oral 360 Output: Urine 1700 1500 Other: # Voids 3 2 - Exam GENERAL EXAM: Alert, active, comfortable in no apparent distress. HEAD: Normocephalic. EYES: Normal reaction of pupils, equal size. NOSE: Clear with pink turbinates. THROAT: No erythema or exudates. NECK: No masses, no JVD. CHEST: No chest wall deformity. LUNGS: Equal air entry with no crackles, wheeze, rhonchi or dullness. CVS: S1 and S2 normal with no audible murmurs, irregular rhythm. ABDOMEN: No hepatosplenomegaly, normal bowel sounds, no guarding or rigidity. SPINE: No scoliosis or deformity SKIN: No rashes CENTRAL NERVOUS SYSTEM: No focal deficits, tone is normal in all 4 extremities. Extremities: There is 2 + peripheral edema. No clubbing, no cyanosis. Peripheral pulses are intact. - Labs CBC & Chem 7: 01/14/17 05:43 01/14/17 05:43 Labs: Abnormal Lab Results - Last 24 Hours (Table) 01/13/17 01/13/17 01/13/17 Range/Units 13:21 16:57 20:55 WBC (3.8-10.6) k/uL Hgb (13.0-17.5) gm/dL Hct (39.0-53.0) % PT (9.0-12.0) sec Chloride (98-107) mmol/L Carbon Dioxide (22-30) mmol/L BUN (9-20) mg/dL POC Glucose (mg/dL) 152 H 138 H 126 H (75-99) mg/dL 01/14/17 01/14/17 01/14/17 Range/Units 05:43 05:43 05:43 WBC 12.9 H (3.8-10.6) k/uL Hgb 12.0 L (13.0-17.5) gm/dL Hct 38.0 L (39.0-53.0) % PT 14.0 H (9.0-12.0) sec Chloride 96 L (98-107) mmol/L Carbon Dioxide 36 H (22-30) mmol/L BUN 32 H (9-20) mg/dL POC Glucose (mg/dL) (75-99) mg/dL Assessment and Plan Plan: Impression: #1 Dyspnea, multifactorial secondary to acute diastolic congestive heart failure , acute exacerbation of chronic obstructive pulmonary disease and chronic nicotine addiction. #2 History of abdominal aortic aneurysm being followed at [facility]. Current measurement 4.4 cm. #3 Chronic atrial fibrillation, anticoagulated with warfarin. #4 Previous aortic valve replacement. #5 Hypertension. #6 Hyperlipidemia. #7 History of DVT. #8 Gastroesophageal reflux disease. #9 Coronary artery disease with stenting to the LAD on 01/13/2017. Plan: The patient was seen and evaluated by Dr. Downey. We'll continue his treatment for his COPD exacerbation with bronchodilators, Symbicort, prednisone taper. He is again educated regarding the importance of complete smoking cessation. Habitrol patch is in place. He is cleared for discharge from the pulmonary standpoint. He does have a home oxygen and nebulizer with equipment. Follow- up in our office in 1-2 weeks' time. He is however encouraged to call sooner with any recurrence of symptoms or other questions or concerns.
[2017-01-14 11:56] LABS: Glucose,Whole Blood 164 mg/dL (75-99)
[2017-01-14 14:00] VITALS: BMI 31.4
[2017-01-14 14:53] VITALS: BP 156/77; PULSE 70
[2017-01-14 17:08] LABS: Glucose,Whole Blood 130 mg/dL (75-99)
--- NOTE | 2017-01-15 12:06 | DS ---
DATE OF ADMISSION: 01/09/2017 DATE OF DISCHARGE: 01/14/2017 The patient underwent cardiac catheterization and stenting of LAD. Patient actually came in with shortness of breath and patient was also diagnosed with unstable angina. Cardiac catheterization and stenting of LAD. Respiratory status appears to be fairly stable and patient may end up requiring oxygen 24/7. Presently, he uses oxygen at nighttime. He is complaining of lightheadedness secondary to multiple antidepressant medications he received yesterday. Blood pressure has come up a little bit now. His DEANNA inhibitor was discontinued and patient will be discharged today if cleared by Pulmonology and Cardiology. Patient was seen and examined on the day of discharge. Vitals are stable. PHYSICAL EXAMINATION: GENERAL: The patient is alert and oriented x3, not in any acute distress. Well developed, well nourished. HEENT: Pupils are round and equally reacting to light. EOMI. No scleral icterus. No conjunctival pallor. Normocephalic, atraumatic. No pharyngeal erythema. No thyromegaly. CARDIOVASCULAR: S1 and S2 present. No murmurs, rubs, or gallops. PULMONARY: Minimal expiratory wheezing was appreciated, which is baseline. Minimal decreased air entry in bilateral lung melendrez. ABDOMEN: Soft, nontender, nondistended, normoactive bowel sounds. No palpable organomegaly. MUSCULOSKELETAL: No joint swelling or deformity. EXTREMITIES: No cyanosis, clubbing, or pedal edema. NEUROLOGICAL: Gross neurological examination did not reveal any focal deficits. SKIN: No rashes. LABORATORY DATA: CBC abnormal for elevated WBC count of 12,900 due to systemic steroids. ASSESSMENT AND PLAN: 1. Unstable angina. Patient is status post cardiac catheterization and stenting of LAD. 2. Exacerbation of chronic obstructive pulmonary disease. Patient has acute on chronic hypercapnic respiratory failure secondary to chronic obstructive pulmonary disease exacerbation, may require 2 L of oxygen 24/7. 3. Moderate pulmonary hypertension. 4. Congestive heart failure, chronic diastolic dysfunction without any acute exacerbation. 5. Coronary artery disease. 6. Hypertension. 7. Macular degeneration. 8. History of hepatitis C. 9. Deep venous thrombosis in the past for which patient is on Coumadin. Subtherapeutic INR and patient's Coumadin dose will be decreased because of prednisone. Patient was taking 4 mg 5 days of a week 6 mg the rest of 2 days in the week and I am changing it to 4 mg daily. Recheck INR in about 3 days and results to be faxed to primary care physician. DISCHARGE DIET: Cardiac. Extensive nicotine cessation counseling was provided. CHF discharge instructions were provided. Patient will follow with Dr. Leisa Sanabria on the 24 of January at [address] Rangel Colin on the 27 of January at 3 p.m. Activity as tolerated Spent greater than 35 minutes in total discharge process.
== END 2017-01-14 18:20 | disposition home or self-care (01) | DRG 246 ==
LOC: EC 16:46 → 6SEL 18:21
PROVIDERS: ADMIT Hospitalist; ATTEND Hospitalist
PROC: B2111ZZ Fluoroscopy of Multiple Coronary Arteries using Low Osmolar Contrast (ICD-10-PCS; 2017-01-13)
PROC: 027034Z Dilation of Coronary Artery, One Artery with Drug-eluting Intraluminal Device, Percutaneous Approach (ICD-10-PCS; principal; 2017-01-13 09:00)
PROC: 4A023N7 Measurement of Cardiac Sampling and Pressure, Left Heart, Percutaneous Approach (ICD-10-PCS; 2017-01-13 09:00)
DX: I25.110 Atherosclerotic heart disease of native coronary artery with unstable angina pectoris (principal); J96.22 Acute and chronic respiratory failure with hypercapnia; I71.03 Dissection of thoracoabdominal aorta; I50.32 Chronic diastolic (congestive) heart failure; I48.1 Persistent atrial fibrillation; J44.0 Chronic obstructive pulmonary disease with (acute) lower respiratory infection; J44.1 Chronic obstructive pulmonary disease with (acute) exacerbation; I11.0 Hypertensive heart disease with heart failure; B19.20 Unspecified viral hepatitis C without hepatic coma; D63.8 Anemia in other chronic diseases classified elsewhere; J20.9 Acute bronchitis, unspecified; I27.2 Other secondary pulmonary hypertension; E78.5 Hyperlipidemia, unspecified; E66.9 Obesity, unspecified; F17.200 Nicotine dependence, unspecified, uncomplicated; H35.30 Unspecified macular degeneration; I48.2 Chronic atrial fibrillation; K21.9 Gastro-esophageal reflux disease without esophagitis; Z68.33 Body mass index [BMI] 33.0-33.9, adult; Z79.01 Long term (current) use of anticoagulants; Z79.51 Long term (current) use of inhaled steroids; Z79.82 Long term (current) use of aspirin; Z79.899 Other long term (current) drug therapy; Z85.46 Personal history of malignant neoplasm of prostate; Z95.2 Presence of prosthetic heart valve; Z82.49 Family history of ischemic heart disease and other diseases of the circulatory system
CPT/HCPCS: 36415; 71010; 71020; 71275; 75635; 80048; 80053; 80061; 82550; 82553; 83036; 83735; 83880; 84484; 85025; 85027; 85610; 85730; 93005; 93306; 93454; 94640; 94760; 96374; 99291

== ENCOUNTER 2017-01-28 11:07 | Observation (INO) | payer MEDICARE, BC ==
[2017-01-28] MEDS ORDERED: ASPIRIN 81 MG CHEW PO STA (11:38)
[2017-01-28] MEDS ORDERED: NITROGLYCERIN OINT 1 INCH/GM PACKET TOPICAL STA (11:38)
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
[2017-01-28 12:04] LABS: Anisocytosis Slight; Basophils # (A) 0.1 k/uL (0-0.2); Basophils % (A) 1 %; CH 27.4; Eosinophils # (A) 0.2 k/uL (0-0.7); Eosinophils % (A) 2 %; HCT 34.1 % (39.0-53.0); HDW 3.06; HGB 10.6 gm/dL (13.0-17.5); Hypochromasia Moderate; Luc # (Auto) 0.28; Luc % (Auto) 3; Lymphocytes # (A) 0.9 k/uL (1.0-4.8); Lymphocytes % (A) 9 %; MCH 27.6 pg (25.0-35.0); MCHC 31.1 g/dL (31.0-37.0); MCV 88.9 fL (80.0-100.0); Mean Platelet Volume 8.4; Monocytes # (A) 0.6 k/uL (0-1.0); Monocytes % (A) 6 %; Neutrophils # (A) 7.5 k/uL (1.3-7.7); Neutrophils % (A) 80 %; RBC 3.84 m/uL (4.30-5.90); RDW 16.9 % (11.5-15.5); WBC 9.4 k/uL (3.8-10.6); WBC (Perox) 9.34
[2017-01-28 12:14] LABS: ALT 62 U/L (21-72); AST 60 U/L (17-59); Alkaline Phosphatase 228 U/L (38-126); Anion Gap 6 mmol/L; Blood Urea Nitrogen 17 mg/dL (9-20); Calcium 8.6 mg/dL (8.4-10.2); Carbon Dioxide 31 mmol/L (22-30); Chloride 101 mmol/L (98-107); Glucose 110 mg/dL (74-99); Non-African American GFR(MDRD) >60 (>60 ml/min/1.73 sqM); Sodium 138 mmol/L (137-145); Total Bilirubin 0.7 mg/dL (0.2-1.3); Total Protein 6.8 g/dL (6.3-8.2)
[2017-01-28 12:16] LABS: INR 2.1 (<1.1); Partial Thromboplastin Time 35.9 sec (22.0-30.0); Prothrombin Time 19.8 sec (9.0-12.0)
[2017-01-28 12:26] LABS: Creatine Kinase 27 U/L (55-170)
--- NOTE | 2017-01-28 12:38 | XR ---
EXAMINATION TYPE: XR chest 2V DATE OF EXAM: 01/28/2017 COMPARISON: 01/13/2017 HISTORY: Chest pain TECHNIQUE: Frontal and lateral views of the chest are obtained. FINDINGS: Scattered senescent parenchymal changes noted. Hyperinflation compatible with COPD. There is cardiomegaly with pulmonary venous congestion and mild right perihilar density. Correlate fo r developing suggest congestive failure. Tiny effusions suggested on lateral projection. Mediastinal structures are stable and grossly unremarkable. No evidence for hilar prominence. Degenerative changes dorsal spine. IMPRESSION: 1. Findings suggest borderline to mild congestive failure. Developing right perihilar pneumonia howev er is difficult to exclude. Correlate clinically.
[2017-01-28 12:39] LABS: Creatine Kinase MB 0.8 ng/mL (0.0-2.4); Troponin I <0.012 ng/mL (0.000-0.034)
[2017-01-28] MEDS ORDERED: NITROGLYCERIN SL TABS 0.4 MG TAB SUBLINGUAL PRN (13:59)
[2017-01-28] MEDS: ALBUTEROL NEBULIZED 2.5 MG/3 ML INHALATION SCH ×3 (16:14→19:40)
[2017-01-28] MEDS ORDERED: RX INFO: IV CONTRAST WAS GIVEN 1 EACH MISC MISCELLANE PRN (16:32)
[2017-01-28] MEDS ORDERED: PANTOPRAZOLE 40 MG TABLET PO SCH (17:30)
[2017-01-28] MEDS ORDERED: WARFARIN 2 MG TAB PO SCH (18:00)
--- NOTE | 2017-01-28 18:22 | CT ---
EXAMINATION TYPE: CT angio thoracic/abd aorta DATE OF EXAM: 01/28/2017 COMPARISON: 01/10/2017 HISTORY: Back pain and chest pressure. CT DLP: 2184.50 mGycm. Automated Exposure Control for Dose Reduction was Utilized. CONTRAST: CT scan of the thorax, abdomen and pelvis is performed without and with IV Contrast, patient injected with 100 mL of Omnipaque 350. There are 3-D post processed images. FINDINGS: Heart is enlarged. There is aneurysm of the descending thoracic aorta that measures up to 4.2 cm. The re is a short segment of aortic dissection in the mid descending aorta. I see no contrast extravasati on. There is also a short segment of dissection on the anterior aspect of the aorta at the diaphragm. There is patency of the celiac artery and the superior mesenteric artery. There is bilateral patency of the renal arteries. There is patency of the common internal and external iliac arteries. There are patchy infiltrates and atelectasis of the posterior lung bases. Kidneys have normal size and contour. There is no hydronephrosis. There are bilateral multiple small cortical cysts. There is no retroperitoneal adenopathy. There are calcified gallstones. Liver and spl een appear normal. Bile ducts are not dilated. There is no ascites. Bladder distends smoothly. There are multiple diverticula in the sigmoid colon. IMPRESSION: There is a short segment of aortic dissection in the mid thoracic aorta and also in the upper abdomin al aorta at the diaphragm which are fairly stable compared to last exam. 4.2 cm descending thoracic a ortic aneurysm appears stable. Mild colonic diverticulosis. Gallstones. Atherosclerotic vascular disease. There are infiltrates and atelectasis at the lung bases that are improved compared to last exam with significant clearing of the pleural fluid. Stable cardiomegaly.
[2017-01-28] MEDS: FUROSEMIDE 40 MG TAB PO SCH (18:35)
[2017-01-28 18:49] LABS: Creatine Kinase 27 U/L (55-170)
[2017-01-28 18:59] LABS: Creatine Kinase MB 0.7 ng/mL (0.0-2.4); Troponin I <0.012 ng/mL (0.000-0.034)
[2017-01-28] MEDS: SYMBICORT 160-4.5 MCG INHALER INHALATION SCH (19:40)
[2017-01-28] MEDS ORDERED: ACETAMINOPHEN TAB 325 MG TAB PO PRN (20:43)
[2017-01-28] MEDS: METOPROLOL TARTRATE 50 MG TAB PO SCH (20:44)
[2017-01-28] MEDS: PREGABALIN 50 MG CAP PO SCH (20:45)
[2017-01-28] MEDS ORDERED: ATORVASTATIN 40 MG TAB PO SCH (21:00)
[2017-01-28] MEDS ORDERED: HYDROcodone/APAP 5-325MG 1 EACH TAB PO PRN (22:21)
[2017-01-28 23:10] LABS: Creatine Kinase 30 U/L (55-170)
[2017-01-28 23:22] LABS: Creatine Kinase MB 0.6 ng/mL (0.0-2.4); Troponin I <0.012 ng/mL (0.000-0.034)
[2017-01-29 07:35] LABS: Anisocytosis Slight; Basophils % (A) 0 %; CHCM 30.6; Eosinophils # (A) 0.2 k/uL (0-0.7); Eosinophils % (A) 3 %; HCT 34.8 % (39.0-53.0); HDW 3.09; Hypochromasia Marked; Luc # (Auto) 0.24; Luc % (Auto) 3; Lymphocytes # (A) 0.8 k/uL (1.0-4.8); Lymphocytes % (A) 11 %; MCHC 31.6 g/dL (31.0-37.0); MCV 88.5 fL (80.0-100.0); Mean Platelet Volume 7.8; Monocytes # (A) 0.5 k/uL (0-1.0); Monocytes % (A) 6 %; Neutrophils # (A) 5.5 k/uL (1.3-7.7); Neutrophils % (A) 76 %; RBC 3.93 m/uL (4.30-5.90); RDW 16.9 % (11.5-15.5); WBC 7.2 k/uL (3.8-10.6); WBC (Perox) 7.25
[2017-01-29 07:43] LABS: Prothrombin Time 19.5 sec (9.0-12.0)
[2017-01-29 07:45] VITALS: RESP 18
[2017-01-29] MEDS ORDERED: TIOTROPIUM 18 MCG/PUFF INHALER INHALATION SCH (08:00)
[2017-01-29 08:16] LABS: ALT 54 U/L (21-72); AST 62 U/L (17-59); Alkaline Phosphatase 210 U/L (38-126); Anion Gap 8 mmol/L; Blood Urea Nitrogen 15 mg/dL (9-20); Calcium 8.6 mg/dL (8.4-10.2); Carbon Dioxide 28 mmol/L (22-30); Chloride 103 mmol/L (98-107); Cholesterol 117 mg/dL (<200); Glucose 101 mg/dL (74-99); HDL Cholesterol 57 mg/dL (40-60); Non-African American GFR(MDRD) >60 (>60 ml/min/1.73 sqM); Potassium 4.2 mmol/L (3.5-5.1); Sodium 139 mmol/L (137-145); Total Bilirubin 0.8 mg/dL (0.2-1.3); Total Protein 6.9 g/dL (6.3-8.2); Triglycerides 79 mg/dL (<150)
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
[2017-01-29] MEDS ORDERED: MULTIVITAMINS, THERA 1 EACH TAB PO SCH (09:00)
[2017-01-29] MEDS ORDERED: CLOPIDOGREL 75 MG TAB PO SCH (09:00)
[2017-01-29] MEDS ORDERED: DILTIAZEM CD 240 MG CAP.ER.24H PO SCH (09:00)
[2017-01-29] MEDS ORDERED: THIAMINE 100 MG TAB PO SCH (09:00)
[2017-01-29] MEDS ORDERED: ASPIRIN 325 MG TAB PO SCH (09:00)
[2017-01-29] MEDS ORDERED: FOLIC ACID 1 MG TAB PO SCH (09:00)
[2017-01-29] MEDS ORDERED: ASPIRIN 81 MG CHEW PO SCH (09:00)
[2017-01-29] MEDS: FUROSEMIDE 40 MG TAB PO SCH (09:45)
[2017-01-29] MEDS: METOPROLOL TARTRATE 50 MG TAB PO SCH (09:46)
[2017-01-29] MEDS: PREGABALIN 50 MG CAP PO SCH (09:48)
[2017-01-29] MEDS: SYMBICORT 160-4.5 MCG INHALER INHALATION SCH (11:53)
[2017-01-29] MEDS: ALBUTEROL NEBULIZED 2.5 MG/3 ML INHALATION SCH ×2 (11:54)
[2017-01-29 12:35] VITALS: BP 135/60; PULSE 64; TEMP 98.8
--- NOTE | 2017-02-03 09:06 | HP ---
CHIEF COMPLAINT: Chest pain. HISTORY OF PRESENT ILLNESS: This 66-year-old gentleman with a past medical history of multiple medical problems including atrial fibrillation, history of CAD, chest pain, COPD, DVT was admitted with chest pain. Pain was mostly felt in the left side of the chest which was associated with some shortness of breath. The [facility] [place] by Dr. Colin. Patient also had abdominal pain, multiple symptomatology. The patient also has history of abdominal aortic aneurysm. dissection, but the recent CAT scan, which we ordered did not show any actual progression. PAST MEDICAL HISTORY: History of atrial fibrillation, CAD, history of CHF, COPD , GERD, GI bleed. Home medications are reviewed and include: 1. Prilosec 20 mg. 2. Lipitor. 3. Coumadin 4 mg daily. 4. Spiriva 1 puff daily. 5. Vitamin B1, 100 mg daily. 6. Aldactone 25 mg daily. 7. Lyrica 50 mg b.i.d. 8. Klor-Con 20 mEq p.o. b.i.d. 9. Lopressor. 10. Lasix 40 mg p.o. b.i.d. 11. Folic acid. 12. Diltiazem 240 mg daily. 13. Plavix 75 mg daily. 14. Symbicort 160/4.5, two puffs b.i.d. 15. Ecotrin 81 mg daily. 16. Ventolin 2.5 b.i.d. 17. Hydrocodone 5 mg q.6 p.r.n. Allergies are none. FAMILY HISTORY: History of diabetes mellitus in the family. SOCIAL HISTORY: History of alcohol. Occasional smoking. REVIEW OF SYSTEMS: ENT: No diminished hearing or diminished vision. CARDIOVASCULAR SYSTEM: No angina. RESPIRATORY SYSTEM: As mentioned earlier. GI: No nausea. : No dysuria. NERVOUS SYSTEM: No numbness or weakness. ALLERGIES/IMMUNOLOGY: No history of asthma or hayfever. MUSCULOSKELETAL: As mentioned earlier. HEMATOLOGY/ONCOLOGY: No history of anemia. ENDOCRINE: No history of diabetes mellitus or hypothyroidism. CONSTITUTIONAL: As mentioned earlier. DERMATOLOGY: Negative. RHEUMATOLOGY: Negative. PSYCHIATRY: As mentioned above. PHYSICAL EXAMINATION: The patient is alert and oriented x3. Pulse is 65. Blood pressure is 116/65, respirations are 16, temperature is 98 degrees. Pulse ox 91% on room air. HEENT: Conjunctivae normal. NECK: No jugular venous distention. CARDIOVASCULAR SYSTEM: S1 and S2, muffled. RESPIRATORY: Breath sounds diminished at the bases. A few scattered rhonchi and crackles. ABDOMEN: Soft, nontender. No mass palpable. LEGS: No edema, no swelling. NERVOUS SYSTEM: No focal deficits. LABS: WBC 7.2, hemoglobin 11. ASSESSMENT: 1. Chest pain for evaluation to rule out coronary artery disease. 2. History of atrial fibrillation. 3. History of coronary artery disease. 4. History of chest pain. 5. History of congestive heart disease. 6. History of deep venous thrombosis. 7. History of gastroesophageal reflux disease. 8. Hypertension. 9. Hyperlipidemia. 10. History of coronary artery disease and stent. RECOMMENDATIONS AND DISCUSSION: Recommend to continue the current medications. Continue with monitoring and symptomatic treatment. Otherwise, CAT scan as mentioned earlier. Cardiology consultation. See orders for further details. Guarded prognosis. Further recommendations to follow. MTDD
--- NOTE | 2017-02-05 08:43 | DS ---
FINAL DIAGNOSES: 1. Left sided chest pain, possibly musculoskeletal. 2. Atrial fibrillation. 3. Flutter. 4. History of congestive heart failure. 5. History of chronic obstructive heart disease. 6. History of deep vein thrombosis. 7. History of aortic valve replacement. 8. History of aortic dissection, chronic stable. 9. History of coronary artery disease/stent. DISCHARGE DISPOSITION: The patient is being discharged in stable condition with guarded prognosis. HISTORY OF PRESENT ILLNESS: This 66 year old gentleman with past medical history of chest pain, cardiology saw the patient and recommended discharge. On examination, vital signs were stable. Cardiovascular: S1, S2 muffled. Abdomen soft. Nervous system. No focal deficits. Please refer to discharge summary. Discharge medications: Resume home medications. MTDD
== END 2017-01-29 14:22 | disposition home or self-care (01) ==
LOC: EC 11:07 → 3OBS 13:59
PROVIDERS: ADMIT Hospitalist; ATTEND Hospitalist
DX: R07.9 Chest pain, unspecified (principal); R06.02 Shortness of breath; M54.9 Dorsalgia, unspecified; I11.0 Hypertensive heart disease with heart failure; I48.1 Persistent atrial fibrillation; I48.2 Chronic atrial fibrillation; I48.92 Unspecified atrial flutter; I50.9 Heart failure, unspecified; I71.01 Dissection of thoracic aorta; E78.00 Pure hypercholesterolemia, unspecified; E78.5 Hyperlipidemia, unspecified; J44.9 Chronic obstructive pulmonary disease, unspecified; I27.2 Other secondary pulmonary hypertension; K21.9 Gastro-esophageal reflux disease without esophagitis; Z95.5 Presence of coronary angioplasty implant and graft; Z79.01 Long term (current) use of anticoagulants; Z79.02 Long term (current) use of antithrombotics/antiplatelets; Z79.51 Long term (current) use of inhaled steroids; Z79.899 Other long term (current) drug therapy; Z79.82 Long term (current) use of aspirin; I25.10 Atherosclerotic heart disease of native coronary artery without angina pectoris; Z86.718 Personal history of other venous thrombosis and embolism; Z87.01 Personal history of pneumonia (recurrent); Z85.46 Personal history of malignant neoplasm of prostate; Z86.19 Personal history of other infectious and parasitic diseases; Z99.81 Dependence on supplemental oxygen; Z87.891 Personal history of nicotine dependence; Z83.3 Family history of diabetes mellitus; Z82.49 Family history of ischemic heart disease and other diseases of the circulatory system; Z95.3 Presence of xenogenic heart valve
CPT/HCPCS: 99285; 36415; 94640 ×4; 93005; 80061; 80053 ×2; 82550; 82553; 83735; 84484; 85025 ×2; 85610 ×2; 85730; 71020; 75635; 71275; G0378 ×2; Q9967

== ENCOUNTER 2017-02-09 21:40 | Inpatient (IN) | payer MEDICARE, BC ==
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
[2017-02-09 22:48] LABS: Anisocytosis Slight; Basophils % (A) 0 %; CH 25.8; CHCM 30.8; Eosinophils # (A) 0.1 k/uL (0-0.7); Eosinophils % (A) 2 %; HCT 32.6 % (39.0-53.0); HDW 3.44; HGB 10.4 gm/dL (13.0-17.5); Hypochromasia Marked; Luc # (Auto) 0.27; Luc % (Auto) 3; Lymphocytes # (A) 0.5 k/uL (1.0-4.8); Lymphocytes % (A) 5 %; MCH 26.9 pg (25.0-35.0); Mean Platelet Volume 7.5; Monocytes # (A) 0.6 k/uL (0-1.0); Monocytes % (A) 7 %; Neutrophils # (A) 7.3 k/uL (1.3-7.7); Neutrophils % (A) 83 %; Poikilocytosis Slight; RBC 3.88 m/uL (4.30-5.90); RDW 16.4 % (11.5-15.5); WBC 8.8 k/uL (3.8-10.6); WBC (Perox) 8.62
[2017-02-09 23:01] LABS: ALT 55 U/L (21-72); AST 76 U/L (17-59); Alkaline Phosphatase 233 U/L (38-126); Anion Gap 10 mmol/L; Blood Urea Nitrogen 15 mg/dL (9-20); Calcium 8.6 mg/dL (8.4-10.2); Carbon Dioxide 29 mmol/L (22-30); Chloride 100 mmol/L (98-107); Glucose 116 mg/dL (74-99); Non-African American GFR(MDRD) >60 (>60 ml/min/1.73 sqM); Potassium 5.1 mmol/L (3.5-5.1); Sodium 139 mmol/L (137-145); Total Bilirubin 0.9 mg/dL (0.2-1.3); Total Protein 6.9 g/dL (6.3-8.2)
[2017-02-09] MEDS ORDERED: ACETAMINOPHEN TAB 325 MG TAB PO STA (23:01)
[2017-02-09 23:03] LABS: INR 1.8 (<1.1); Partial Thromboplastin Time 38.3 sec (22.0-30.0); Prothrombin Time 17.7 sec (9.0-12.0)
[2017-02-09 23:04] LABS: Appearance,Urine Clear (Clear); Bilirubin,Urine Negative (Negative); Glucose,Urine (UA) Negative (Negative); Ketones,Urine Negative (Negative); Leukocyte Esterase,Urine Negative (Negative); Nitrite,Urine Negative (Negative); PH, Urine 5.5 (5.0-8.0); Protein,Urine Negative (Negative); Specific Gravity,Urine 1.005 (1.001-1.035); UA Billing (MACRO vs. MICRO) CHEM; Urobilinogen,Urine <2.0 mg/dL (<2.0)
[2017-02-09] MEDS ORDERED: SODIUM CHLORIDE 0.9% 500 ML IV STA (23:24)
[2017-02-09] MEDS ORDERED: RX INFO: IV CONTRAST WAS GIVEN 1 EACH MISC MISCELLANE PRN (23:25)
[2017-02-09] MEDS ORDERED: HYDROcodone/APAP 5-325MG 1 EACH TAB PO STA (23:26)
--- NOTE | 2017-02-09 23:27 | XR ---
EXAM: XR Chest, 2 Views CLINICAL HISTORY: Reason: difficulty breathing TECHNIQUE: Frontal and lateral views of the chest. COMPARISON: 01/28/17. FINDINGS: Flattening of the diaphragms suggesting emphysema. Mild vascular congestion. Trace pleural effusions. Median sternotomy. Left atrial appendage closure device. Surgical clips projecting in the right axilla. IMPRESSION: Mild CHF again noted. Trace pleural effusions. Suspect emphysema
--- NOTE | 2017-02-10 01:04 | CT ---
EXAM: CT Angiography Chest With Intravenous Contrast CLINICAL HISTORY: Reason: Pain TECHNIQUE: Axial computed tomographic angiography images of the chest with intravenous contrast using pulmonary embolism protocol. CTDI is 236.70 mGy and DLP is 590.10 mGy-cm. This CT exam was performed using one or more of the following dose reduction techniques: automated exposure control, adjustment of the mA and/or kV according to patient size, and/or use of iterative reconstruction technique. MIP reconstructed images were created and reviewed. COMPARISON: 01/28/2017 FINDINGS: Pulmonary arteries: Unremarkable. No pulmonary embolism. Aorta: The 2 dissection flaps seen within the proximal descending thoracic aorta and the proximal abdominal aorta are again visualized and unchanged. Ascending thoracic aortic graft appears stable. 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 Lungs: Bilateral lower lobe subsegmental atelectasis. No mass. Pleural space: Trace bilateral pleural effusions. No pneumothorax. Heart: Cardiomegaly. Left atrial appendage closure device Bones/joints: No acute fracture. Sternotomy again noted Soft tissues: Unremarkable. Lymph nodes: Unremarkable. No enlarged lymph nodes. Intraperitoneal space: Redemonstration of large midline epigastric hernia containing omental fat. IMPRESSION: 1. No acute pulmonary embolism. 2. Trace bilateral pleural effusions with bilateral lower lobe subsegmental atelectasis. 3. 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
[2017-02-10] MEDS ORDERED: SODIUM CHLORIDE 0.9% 500 ML IV STA (01:26)
[2017-02-10] MEDS ORDERED: IV VANCOMYCIN PER PHARMACY 1 EACH MISC MISCELLANE PRN (01:27)
[2017-02-10] MEDS ORDERED: HYDROcodone/APAP 5-325MG 1 EACH TAB PO PRN (01:33)
[2017-02-10] MEDS ORDERED: ENOXAPARIN 100 MG/ML SYRINGE SQ STA (01:37)
[2017-02-10] MEDS ORDERED: VANCOMYCIN 2,000 MG in SODIUM CHLORIDE 0.9% 500 ML IVPB ONE (02:00)
[2017-02-10 02:21] VITALS: BMI 33.8
[2017-02-10] MEDS: PIPERACILLIN-TAZOBACTAM 3.375 GM in DEXTROSE/WATER 1 50ML.BAG IVPB SCH ×3 (03:13→16:33)
[2017-02-10] MEDS: ALBUTEROL NEBULIZED 2.5 MG/3 ML INHALATION SCH ×3 (08:23→19:12)
[2017-02-10] MEDS: SYMBICORT 160-4.5 MCG INHALER INHALATION SCH ×3 (08:23→19:12)
--- NOTE | 2017-02-10 08:39 | US ---
EXAMINATION TYPE: US venous doppler duplex LE BI DATE OF EXAM: 02/10/2017 8:16 AM COMPARISON: Right lower extremity venous ultrasound October 07, 2015 CLINICAL HISTORY: swelling. SIDE PERFORMED: Bilateral TECHNIQUE: The lower extremity deep venous system is examined utilizing real time linear array sonog rabia with graded compression, doppler sonography and color-flow sonography. VESSELS IMAGED: External Iliac Vein (EIV) Common Femoral Vein Deep Femoral Vein Greater Saphenous Vein * Femoral Vein Popliteal Vein Small Saphenous Vein * Proximal Calf Veins (* superficial vessels) Patient trembling, extremely tense with SOB and poor venous return, this exam was extremely limited b y these factors. Right Leg: Unable to compress FV due to patient pain, appears negative, but this study was extremely limited. Left Leg: Unable to compress FV due to patient pain, appears negative, but this study was extremely limited. Grayscale, color doppler, spectral doppler imaging performed of the deep veins of the lower extremiti es. Exam is suboptimal as compression views could not be performed due to patient pain. IMPRESSION: Suboptimal study without acute DVT identified in either lower extremity. Bilateral venous reflux is noted.
[2017-02-10] MEDS ORDERED: FUROSEMIDE 40 MG TAB PO SCH (09:00)
[2017-02-10] MEDS ORDERED: WARFARIN 2 MG TAB PO SCH (09:00)
[2017-02-10] MEDS ORDERED: ACETAMINOPHEN TAB 325 MG TAB PO PRN (09:16)
[2017-02-10] MEDS: HEPARIN SODIUM,PORCINE 5,000 UNIT/ML 1 ML VIAL SQ SCH ×2 (09:21→16:33)
[2017-02-10] MEDS: CLOPIDOGREL 75 MG TAB PO SCH (09:21)
[2017-02-10] MEDS: ASPIRIN 81 MG CHEW PO SCH (09:21)
[2017-02-10] MEDS: FAMOTIDINE 20 MG/2 ML VIAL IV SCH ×2 (09:22→21:09)
[2017-02-10] MEDS: DILTIAZEM CD 240 MG CAP.ER.24H PO SCH (09:22)
[2017-02-10] MEDS: METOPROLOL TARTRATE 50 MG TAB PO SCH ×2 (09:22→21:09)
[2017-02-10] MEDS: POTASSIUM CHLORIDE ER 20 MEQ TAB.ER PO SCH ×2 (09:22→21:08)
[2017-02-10] MEDS: FOLIC ACID 1 MG TAB PO SCH (09:23)
[2017-02-10] MEDS: MULTIVITAMINS, THERA 1 EACH TAB PO SCH (09:23)
[2017-02-10] MEDS: THIAMINE 100 MG TAB PO SCH (09:23)
[2017-02-10] MEDS: SPIRONOLACTONE 25 MG TAB PO SCH (09:23)
[2017-02-10] MEDS: PREGABALIN 50 MG CAP PO SCH ×2 (09:26→21:08)
[2017-02-10] MEDS: TIOTROPIUM 18 MCG/PUFF INHALER INHALATION SCH (11:49)
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
[2017-02-10] MEDS: predniSONE 20 MG TAB PO SCH (16:32)
[2017-02-10] MEDS: FUROSEMIDE 10 MG/ML 4 ML VIAL IV SCH ×2 (16:32→21:08)
[2017-02-10] MEDS: VANCOMYCIN 1,750 MG in SODIUM CHLORIDE 0.9% 250 ML IVPB SCH (16:33)
[2017-02-10] MEDS: PANTOPRAZOLE 40 MG TABLET PO SCH (16:33)
[2017-02-10] MEDS: WARFARIN 3 MG TAB PO SCH (16:34)
[2017-02-10] MEDS: ATORVASTATIN 40 MG TAB PO SCH (21:09)
[2017-02-11] MEDS: PIPERACILLIN-TAZOBACTAM 3.375 GM in DEXTROSE/WATER 1 50ML.BAG IVPB SCH ×3 (00:30→15:42)
[2017-02-11] MEDS: HEPARIN SODIUM,PORCINE 5,000 UNIT/ML 1 ML VIAL SQ SCH ×2 (01:15→08:59)
[2017-02-11] MEDS: VANCOMYCIN 1,750 MG in SODIUM CHLORIDE 0.9% 250 ML IVPB SCH (03:03)
[2017-02-11 06:34] LABS: Anisocytosis Slight; CH 25.6; CHCM 29.6; HCT 30.4 % (39.0-53.0); HDW 3.38; HGB 9.4 gm/dL (13.0-17.5); Hypochromasia Marked; MCH 26.8 pg (25.0-35.0); MCV 86.5 fL (80.0-100.0); Mean Platelet Volume 8.2; RBC 3.51 m/uL (4.30-5.90); RDW 16.2 % (11.5-15.5); WBC 7.5 k/uL (3.8-10.6)
[2017-02-11 06:35] LABS: INR 2.3 (<1.1); Prothrombin Time 22.1 sec (9.0-12.0)
[2017-02-11 06:56] LABS: Anion Gap 9 mmol/L; Blood Urea Nitrogen 17 mg/dL (9-20); Calcium 7.9 mg/dL (8.4-10.2); Carbon Dioxide 29 mmol/L (22-30); Chloride 102 mmol/L (98-107); Glucose 180 mg/dL (74-99); Non-African American GFR(MDRD) >60 (>60 ml/min/1.73 sqM); Potassium 4.5 mmol/L (3.5-5.1); Sodium 140 mmol/L (137-145)
[2017-02-11] MEDS: ALBUTEROL NEBULIZED 2.5 MG/3 ML INHALATION SCH ×2 (08:03→20:42)
[2017-02-11] MEDS: TIOTROPIUM 18 MCG/PUFF INHALER INHALATION SCH (08:03)
[2017-02-11] MEDS: SYMBICORT 160-4.5 MCG INHALER INHALATION SCH ×2 (08:03→20:43)
[2017-02-11] MEDS: METOPROLOL TARTRATE 50 MG TAB PO SCH ×2 (09:30→20:12)
[2017-02-11] MEDS: CLOPIDOGREL 75 MG TAB PO SCH (09:31)
[2017-02-11] MEDS: FUROSEMIDE 10 MG/ML 4 ML VIAL IV SCH (09:31)
[2017-02-11] MEDS: FAMOTIDINE 20 MG/2 ML VIAL IV SCH ×2 (09:31→20:13)
[2017-02-11] MEDS: DILTIAZEM CD 240 MG CAP.ER.24H PO SCH (09:31)
[2017-02-11] MEDS: ASPIRIN 81 MG CHEW PO SCH (09:31)
[2017-02-11] MEDS: POTASSIUM CHLORIDE ER 20 MEQ TAB.ER PO SCH ×2 (09:32→20:12)
[2017-02-11] MEDS: predniSONE 20 MG TAB PO SCH (09:32)
[2017-02-11] MEDS: THIAMINE 100 MG TAB PO SCH (09:34)
[2017-02-11] MEDS: SPIRONOLACTONE 25 MG TAB PO SCH (09:34)
[2017-02-11] MEDS: PREGABALIN 50 MG CAP PO SCH ×2 (09:37→20:13)
[2017-02-11] MEDS: MULTIVITAMINS, THERA 1 EACH TAB PO SCH (12:34)
[2017-02-11] MEDS: FOLIC ACID 1 MG TAB PO SCH (12:34)
[2017-02-11] MEDS ORDERED: VANCOMYCIN TROUGH DUE 1 EACH MISC MISCELLANE ONE (13:00)
--- NOTE | 2017-02-11 13:59 | XR ---
EXAMINATION TYPE: XR chest 1V DATE OF EXAM: 02/11/2017 COMPARISON: Prior chest x-ray 02/09/2017 HISTORY: Congestive heart failure, sepsis TECHNIQUE: Single frontal view of the chest is obtained. FINDINGS: Surgical clips are present over the right upper chest. Patient is post median sternotomy. No evident pneumothorax or pleural effusion. There are overlying cardiac leads. Perihilar vascular in distinctness is noted. Interstitium is increased, central vascularity is somewhat prominent. No focal pneumonia. IMPRESSION: Findings suggest pulmonary venous hypertension and interstitial edema. Follow-up suggest ed.
--- NOTE | 2017-02-11 14:50 | P.PN ---
Subjective given his shortness of breath and fever. [place] sepsis is unknown although patient is on broad-spectrum antibiotics Vanco mycin's being disconnected and patient is being continued on Zosyn patient is afebrile overnight and patient is also being treated for COPD exacerbation as well as CHF exacerbation. Patient is earlyeuvolemic, repeat the chest x-ray and patient Lasix is being switched to oral today. REVIEW OF SYSTEMS: CARDIOVASCULAR: No chest pain, no orthopnea, no PND, no palpitations. PULMONARY:improved status of breath GASTROINTESTINAL: No diarrhea, nausea or vomiting. No abdominal pain. Normoactive bowel sounds. NEUROLOGIC: No headaches, no weakness, no numbness Objective - Vital Signs Vital signs: Vital Signs Temp 97.9 F 02/11/17 11:36 Pulse 73 02/11/17 11:36 Resp 20 02/11/17 11:36 BP 117/57 02/11/17 11:36 Pulse Ox 97 02/11/17 11:36 Intake & Output 02/10/17 02/11/17 02/11/17 18:59 06:59 18:59 Intake Total 1305 650 568 Output Total 750 1750 Balance 555 -1100 568 Weight 103.8 kg Intake: IV 825 650 210 0.9 @20mls/hr 825 100 160 Piperacillin-Tazobactam 3 50 50 .375 gm In Dextrose/Water 1 50ml.bag @ 12.5 mls/hr IVPB Q8HR [facility] Rx#: [id number] Vancomycin 2,000 mg In 500 Sodium Chloride 0.9% 500 ml @ 167 mls/hr IVPB ONCE ONE Rx#:[id number] Oral 480 358 Output: Urine 750 1750 Other: Voiding Method Urinal Urinal Urinal # Voids 1 # Bowel Movements 0 - Exam GENERAL: The patient is alert and oriented x3, not in any acute distress. Well developed, well nourished. HEENT: Pupils are round and equally reacting to light. EOMI. No scleral icterus. No conjunctival pallor. Normocephalic, atraumatic. No pharyngeal erythema. No thyromegaly. CARDIOVASCULAR: S1 and S2 present. No murmurs, rubs, or gallops. PULMONARY: Chest is clear to auscultation, no crackles are appreciated but wheezing did improve significantly. Pedal edema improved as well ABDOMEN: Soft, nontender, nondistended, normoactive bowel sounds. No palpable organomegaly. MUSCULOSKELETAL: No joint swelling or deformity. EXTREMITIES: No cyanosis, clubbing. bilateral pedal edema pitting. Does have JVD. NEUROLOGICAL: Gross neurological examination did not reveal any focal deficits. SKIN: No rashes. - Labs CBC & Chem 7: 02/11/17 05:36 02/11/17 05:36 Labs: Abnormal Lab Results - Last 24 Hours (Table) 02/11/17 02/11/17 02/11/17 Range/Units 05:36 05:36 05:36 RBC 3.51 L (4.30-5.90) m/uL Hgb 9.4 L (13.0-17.5) gm/dL Hct 30.4 L (39.0-53.0) % RDW 16.2 H (11.5-15.5) % PT 22.1 H (9.0-12.0) sec Glucose 180 H (74-99) mg/dL Calcium 7.9 L (8.4-10.2) mg/dL Microbiology - Last 24 Hours (Table) 02/09/17 22:52 Urine Culture - Final Urine,Clean Catch 02/09/17 22:20 Blood Culture - Preliminary Blood No Growth after 24 hours Assessment and Plan Plan: #1 acute hypercapnic respiratory failure secondary to COPD exacerbation with a competent of chronic diastolic dysfunction with acute exacerbation. Patient was started on systemic steroids continue with inhalational treatments.and respiratory status improved significantly #2 sepsis source of sepsis is unknown at this point of time patient , so far blood cultures are negative patient is afebrile today and patient will continue on Zosyn. #3 chronic diastolic dysfunction with mild acute examination patient was switched to oral Lasix. 4 moderate pulmonary hypertension with possible right-sided heart failure or Cor pulmonale 5 artery disease recent cardiac catheterization and stenting. 6 history of hepatitis C Will need to follow gastric body as an outpatient. 7 DVT in the past on Coumadin INR established but will cut down the dose of Coumadin because of its interaction with antibiotics and prednisone. INR is therapeutic today 8 hypertension
[2017-02-11] MEDS: PANTOPRAZOLE 40 MG TABLET PO SCH (15:42)
[2017-02-11] MEDS: FUROSEMIDE 40 MG TAB PO SCH (15:42)
[2017-02-11] MEDS: WARFARIN 3 MG TAB PO SCH (17:32)
[2017-02-11] MEDS: ATORVASTATIN 40 MG TAB PO SCH (20:12)
[2017-02-12] MEDS: PIPERACILLIN-TAZOBACTAM 3.375 GM in DEXTROSE/WATER 1 50ML.BAG IVPB SCH ×2 (00:14→08:57)
[2017-02-12 06:47] LABS: Anisocytosis Slight; CH 25.6; CHCM 29.6; HCT 31.3 % (39.0-53.0); HDW 3.31; HGB 9.7 gm/dL (13.0-17.5); Hypochromasia Marked; MCH 26.8 pg (25.0-35.0); MCHC 30.9 g/dL (31.0-37.0); MCV 86.7 fL (80.0-100.0); Mean Platelet Volume 7.9; RDW 16.4 % (11.5-15.5); WBC 11.2 k/uL (3.8-10.6)
[2017-02-12 07:08] LABS: INR 1.9 (<1.2); Prothrombin Time 18.2 sec (9.0-12.0)
[2017-02-12 07:13] LABS: Anion Gap 8 mmol/L; Blood Urea Nitrogen 22 mg/dL (9-20); Calcium 8.3 mg/dL (8.4-10.2); Carbon Dioxide 34 mmol/L (22-30); Chloride 99 mmol/L (98-107); Glucose 178 mg/dL (74-99); Non-African American GFR(MDRD) >60 (>60 ml/min/1.73 sqM); Potassium 4.4 mmol/L (3.5-5.1); Sodium 141 mmol/L (137-145)
[2017-02-12] MEDS: ALBUTEROL NEBULIZED 2.5 MG/3 ML INHALATION SCH (08:28)
[2017-02-12] MEDS: SYMBICORT 160-4.5 MCG INHALER INHALATION SCH (08:29)
[2017-02-12] MEDS: METOPROLOL TARTRATE 50 MG TAB PO SCH (08:58)
[2017-02-12] MEDS: CLOPIDOGREL 75 MG TAB PO SCH (08:58)
[2017-02-12] MEDS: DILTIAZEM CD 240 MG CAP.ER.24H PO SCH (08:58)
[2017-02-12] MEDS: ASPIRIN 81 MG CHEW PO SCH (08:58)
[2017-02-12] MEDS: FAMOTIDINE 20 MG/2 ML VIAL IV SCH (08:58)
[2017-02-12] MEDS: FUROSEMIDE 40 MG TAB PO SCH (08:58)
[2017-02-12] MEDS: FOLIC ACID 1 MG TAB PO SCH (08:59)
[2017-02-12] MEDS: SPIRONOLACTONE 25 MG TAB PO SCH (08:59)
[2017-02-12] MEDS: POTASSIUM CHLORIDE ER 20 MEQ TAB.ER PO SCH (08:59)
[2017-02-12] MEDS: THIAMINE 100 MG TAB PO SCH (08:59)
[2017-02-12] MEDS: MULTIVITAMINS, THERA 1 EACH TAB PO SCH (08:59)
[2017-02-12] MEDS: predniSONE 20 MG TAB PO SCH (08:59)
[2017-02-12] MEDS: PREGABALIN 50 MG CAP PO SCH (09:11)
[2017-02-12 09:25] VITALS: PULSE 65; RESP 18; TEMP 97.7
[2017-02-12] MEDS: TIOTROPIUM 18 MCG/PUFF INHALER INHALATION SCH (11:31)
[2017-02-12 11:56] VITALS: BP 143/61
--- NOTE | 2017-02-12 13:32 | P.DS ---
Providers Date of admission: 02/10/17 01:28 Attending physician: Fred Desir [facility] Course: Patient came in with shortness of breath and fever. Source of sepsis is unknown although patient was on on broad-spectrum antibiotics.all cultures are negative and patient was discharged on Augmentin for a week. d patient is also being treated for COPD exacerbation as well as CHF exacerbation. Patient is earlyeuvolemic, #1 acute hypercapnic respiratory failure secondary to COPD exacerbation with a competent of chronic diastolic dysfunction with acute exacerbation. Patient was started on systemic steroids continue with inhalational treatments.and respiratory status improved significantly. Patient will require 2 L of pulse at home 24 hours a day. #2 sepsis source of sepsis is unknown at this point of time patient , so far blood cultures are negative patient is afebrile today and patient was discharged on Augmentin #3 chronic diastolic dysfunction with mild acute exacerbation 4 moderate pulmonary hypertension with possible right-sided heart failure or Cor pulmonale 5 artery disease recent cardiac catheterization and stenting. 6 history of hepatitis C Will need to follow gastric body as an outpatient. 7 DVT in the past on Coumadin INR established but will cut down the dose of Coumadin because of its interaction with antibiotics and prednisone. INR is therapeutic today 8 hypertension Patient Condition at Discharge: Poor Plan - Discharge Summary New Discharge Prescriptions: New Amoxicillin/Potassium Clav [Augmentin 875-125 Tablet] 1 tab PO Q12HR #14 tab predniSONE 10 mg PO DAILY #30 tab Continue Potassium Chloride [Klor-Con 20] 20 meq PO BID Metoprolol Tartrate [Lopressor] 100 mg PO BID Diltiazem HCl [Diltiazem 24Hr ER] 240 mg PO DAILY Furosemide [Lasix] 40 mg PO BID #1 tablet Folic Acid 1 mg PO DAILY #1 tablet Budesonide-Formot 160-4.5 Mcg [Symbicort 160-4.5 Mcg Inhaler] 2 puff INHALATION RT-BID Thiamine [Vitamin B-1] 100 mg PO DAILY Tiotropium 18 Mcg/Puff [Spiriva] 1 cap INHALATION RT-DAILY Multivitamins, Thera [Multivitamin (formulary)] 1 tab PO DAILY Pregabalin [Lyrica] 50 mg PO BID Atorvastatin [Lipitor] 40 mg PO HS Aspirin EC [Ecotrin Low Dose] 81 mg PO DAILY Albuterol Nebulized [Ventolin Nebulized] 2.5 mg INHALATION RT-BID Omeprazole [PriLOSEC] 20 mg PO AC-SUPPER Spironolactone [Aldactone] 25 mg PO DAILY Clopidogrel [Plavix] 75 mg PO DAILY #90 tab Warfarin Sodium [Coumadin] 4 mg PO DAILY #0 HYDROcodone/APAP 5-325MG [[place] 5-325] 1 tab PO Q6HR PRN PRN Reason: moderate pain Discharge Medication List Diltiazem HCl [Diltiazem 24Hr ER] 240 mg PO DAILY 08/23/14 [History] Metoprolol Tartrate [Lopressor] 100 mg PO BID 08/23/14 [History] Potassium Chloride [Klor-Con 20] 20 meq PO BID 08/23/14 [History] Folic Acid 1 mg PO DAILY #1 tablet 09/10/14 [Rx] Furosemide [Lasix] 40 mg PO BID #1 tablet 09/10/14 [Rx] Budesonide-Formot 160-4.5 Mcg [Symbicort 160-4.5 Mcg Inhaler] 2 puff INHALATION RT-BID 10/07/15 [History] Thiamine [Vitamin B-1] 100 mg PO DAILY 11/18/15 [History] Multivitamins, Thera [Multivitamin (formulary)] 1 tab PO DAILY 03/19/16 [History ] Tiotropium 18 Mcg/Puff [Spiriva] 1 cap INHALATION RT-DAILY 03/19/16 [History] Pregabalin [Lyrica] 50 mg PO BID 08/11/16 [History] Albuterol Nebulized [Ventolin Nebulized] 2.5 mg INHALATION RT-BID 01/09/17 [ History] Aspirin EC [Ecotrin Low Dose] 81 mg PO DAILY 01/09/17 [History] Atorvastatin [Lipitor] 40 mg PO HS 01/09/17 [History] Omeprazole [PriLOSEC] 20 mg PO AC-SUPPER 01/09/17 [History] Spironolactone [Aldactone] 25 mg PO DAILY 01/09/17 [History] Clopidogrel [Plavix] 75 mg PO DAILY #90 tab 01/14/17 [Rx] Warfarin Sodium [Coumadin] 4 mg PO DAILY #0 01/14/17 [Rx] HYDROcodone/APAP 5-325MG [[place] 5-325] 1 tab PO Q6HR PRN 02/09/17 [History] Amoxicillin/Potassium Clav [Augmentin 875-125 Tablet] 1 tab PO Q12HR #14 tab [Rx] predniSONE 10 mg PO DAILY #30 tab 02/12/17 [Rx] Follow up Appointment(s)/Referral(s): Rangel Colin DO [Primary Care Provider] - 1-2 days Patient Instructions/Handouts: Heart Failure (DC), COPD (Chronic Obstructive Pulmonary Disease) (DC)
== END 2017-02-12 13:52 | disposition home or self-care (01) | DRG 871 ==
LOC: EC 21:40 → 6SEL 02-10 01:28
PROVIDERS: ADMIT Hospitalist; ATTEND Hospitalist
DX: A41.9 Sepsis, unspecified organism (principal); J96.02 Acute respiratory failure with hypercapnia; I71.00 Dissection of unspecified site of aorta; I50.33 Acute on chronic diastolic (congestive) heart failure; J44.1 Chronic obstructive pulmonary disease with (acute) exacerbation; I48.2 Chronic atrial fibrillation; I27.2 Other secondary pulmonary hypertension; I11.0 Hypertensive heart disease with heart failure; I27.81 Cor pulmonale (chronic); B19.20 Unspecified viral hepatitis C without hepatic coma; I25.10 Atherosclerotic heart disease of native coronary artery without angina pectoris; H35.30 Unspecified macular degeneration; F17.200 Nicotine dependence, unspecified, uncomplicated; E78.5 Hyperlipidemia, unspecified; K21.9 Gastro-esophageal reflux disease without esophagitis; H93.13 Tinnitus, bilateral; Z95.2 Presence of prosthetic heart valve; Z85.46 Personal history of malignant neoplasm of prostate; Z90.79 Acquired absence of other genital organ(s); Z99.81 Dependence on supplemental oxygen; Z87.01 Personal history of pneumonia (recurrent); Z86.718 Personal history of other venous thrombosis and embolism; Z79.51 Long term (current) use of inhaled steroids; Z79.899 Other long term (current) drug therapy; Z79.02 Long term (current) use of antithrombotics/antiplatelets; Z79.01 Long term (current) use of anticoagulants
CPT/HCPCS: 36415; 71010; 71020; 71275; 80048; 80053; 81003; 83605; 83880; 84484; 85025; 85027; 85379; 85610; 85730; 87040; 87086; 93005; 93970; 94640; 94760

== ENCOUNTER 2017-02-27 13:39 | Inpatient (IN) | payer MEDICARE, BC ==
[2017-02-27] MEDS ORDERED: ACETAMINOPHEN TAB 500 MG TAB PO STA (14:15)
[2017-02-27] MEDS: SODIUM CHLORIDE 0.9% 500 ML IV SCH (14:30)
[2017-02-27 14:35] LABS: Anisocytosis Moderate; Basophils # (A) 0.1 k/uL (0-0.2); Basophils % (A) 0 %; CHCM 29.4; Eosinophils # (A) 0.1 k/uL (0-0.7); Eosinophils % (A) 1 %; HCT 29.9 % (39.0-53.0); HDW 3.39; HGB 8.6 gm/dL (13.0-17.5); Hypochromasia Marked; Luc # (Auto) 0.33; Luc % (Auto) 2; Lymphocytes # (A) 1.3 k/uL (1.0-4.8); Lymphocytes % (A) 7 %; MCH 25.6 pg (25.0-35.0); MCHC 28.7 g/dL (31.0-37.0); MCV 89.1 fL (80.0-100.0); Mean Platelet Volume 9.3; Monocytes # (A) 0.8 k/uL (0-1.0); Monocytes % (A) 4 %; Neutrophils % (A) 85 %; RBC 3.35 m/uL (4.30-5.90); RDW 20.2 % (11.5-15.5); WBC 17.6 k/uL (3.8-10.6); WBC (Perox) 17.79
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
[2017-02-27 14:45] LABS: ALT 52 U/L (21-72); AST 43 U/L (17-59); Alkaline Phosphatase 161 U/L (38-126); Anion Gap 14 mmol/L; Blood Urea Nitrogen 26 mg/dL (9-20); Calcium 8.5 mg/dL (8.4-10.2); Carbon Dioxide 30 mmol/L (22-30); Chloride 98 mmol/L (98-107); Glucose 236 mg/dL (74-99); Non-African American GFR(MDRD) >60 (>60 ml/min/1.73 sqM); Potassium 5.1 mmol/L (3.5-5.1); Sodium 142 mmol/L (137-145); Total Protein 6.5 g/dL (6.3-8.2)
[2017-02-27 14:46] LABS: Partial Thromboplastin Time 32.6 sec (22.0-30.0); Prothrombin Time 28.6 sec (9.0-12.0)
[2017-02-27] MEDS ORDERED: ESOMEPRAZOLE 20 MG in SODIUM CHLORIDE 0.9% 50 ML IVPB STA (14:56)
--- NOTE | 2017-02-27 15:01 | XR ---
EXAMINATION TYPE: XR chest 2V DATE OF EXAM: 02/27/2017 COMPARISON: 02/11/2017 HISTORY: 58-year-old male with fever TECHNIQUE: AP and lateral views FINDINGS: The heart is borderline enlarged. Similar elongation of the thoracic aorta. Median sternotomy wires p ost-CABG clips. Surgical clips redemonstrated along the peripheral right upper lung. Diffuse intersti tial opacities are again noted. No consolidation or pleural effusion. IMPRESSION: No consolidation to suggest pneumonia. However, there are interstitial changes that could reflect mil d CHF, bronchitis, or uncontrolled asthma. Clinically correlate.
--- NOTE | 2017-02-27 15:21 | CT ---
EXAMINATION TYPE: CT abdomen pelvis wo con DATE OF EXAM: 02/27/2017 COMPARISON: 01/28/2017 HISTORY: 66-year-old male with abdominal and lower back pain CT DLP: 1047 mGycm. Automated exposure control for dose reduction was used. TECHNIQUE: Contiguous axial scanning of the abdomen and pelvis without IV contrast. Coronal and sagit gene reconstructions performed. FINDINGS: The heart is upper limits of normal in size without pericardial effusion. Some strandy atelectasis at the lung bases without pleural effusion. Epigastric ventral abdominal wall hernia located just below the xiphoid measuring 9.4 cm wide with th e abdominal wall defect measuring 6.7 cm wide, relatively similar to 01/28/2017. This contains omental fat and vessels. Noncontrast appearance of the liver shows slight contour nodularity for which underlying cirrhosis sh ould be excluded. Cholelithiasis without abnormal gallbladder distention. Adrenal glands, kidneys, and spleen show no g ross abnormality. There is mild to moderate fat stranding in the retroperitoneum tracking down inferiorly on the right, possibly from a pancreatic origin. No abnormal duodenal wall thickening in this region. Suspect some collaterals at the umbilicus. No dilated small bowel, free fluid, or free air. Mild sigmoid diverticulosis. Small amount of pelvic free fluid. Circumferential bladder wall thickening. Rectum appears normal. No pelvic lymphadenopathy seen. 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 The dis section seen in the upper abdominal aorta on prior exam is not evaluated by noncontrast CT. Borderline ectasia infrarenal abdominal aorta 2.5 cm and ectasia of the right and left common iliac a rteries and 1.6 and 1.5 cm, respectively. Bones: Degenerative changes at the hips and right SI joint. Multilevel degenerative disc disease. No osseous destructive process. IMPRESSION: 1. Some nonspecific fat stranding in the retroperitoneum tracking down inferiorly on the right with mild free fluid collecting in the pelvis. Clinically correlate to exclude possible etiologies such as mild acute pancreatitis or an inflamed duodenal ulcer. 2. Circumferential bladder wall thickening; correlate to exclude cystitis. 3. Stable aneurysmal aorta at the thoracoabdominal junction (4.1 cm). Patient's known upper abdomina l aortic dissection is not evaluated on this noncontrast CT. 4. Correlate for cirrhosis given nodular contour of the liver. 5. Large omental fat-containing ventral epigastric abdominal wall hernia, cholelithiasis, and sigmoi d diverticulosis.
[2017-02-27 15:33] LABS: Amylase 159 U/L (30-110)
[2017-02-27 15:41] LABS: Appearance,Urine Cloudy (Clear); Bacteria,Urine Occasional /hpf; Bilirubin,Urine Negative (Negative); Glucose,Urine (UA) Negative (Negative); Ketones,Urine Negative (Negative); Leukocyte Esterase,Urine Large (Negative); Mucus,Urine Rare /hpf; Nitrite,Urine Negative (Negative); Particle Count 4362; Protein,Urine Trace (Negative); RBC,Urine 8 /hpf (0-5); Squamous Epithelial Cell,Urine 3 /hpf (0-4); UA Billing (MACRO vs. MICRO) MICRO; Urobilinogen,Urine <2.0 mg/dL (<2.0); WBC,Urine 16 /hpf (0-5)
[2017-02-27] MEDS ORDERED: PHYTONADIONE ORAL 5 MG/5 ML ORAL.SYRG PO STA (16:07)
[2017-02-27] MEDS: SODIUM CHLORIDE 0.9% 1,000 ML IV SCH (16:16)
[2017-02-27] MEDS ORDERED: HYDROcodone/APAP 5-325MG 1 EACH TAB PO PRN (18:29)
[2017-02-27] MEDS ORDERED: ALPRAZolam 0.25 MG TAB PO PRN (18:29)
[2017-02-27] MEDS ORDERED: TEMAZEPAM 15 MG CAP PO PRN (18:29)
[2017-02-27] MEDS: ALBUTEROL NEBULIZED 2.5 MG/3 ML INHALATION SCH (19:01)
[2017-02-27] MEDS: SYMBICORT 160-4.5 MCG INHALER INHALATION SCH (19:01)
[2017-02-27] MEDS: ATORVASTATIN 40 MG TAB PO SCH (21:48)
[2017-02-27] MEDS: POTASSIUM CHLORIDE ER 20 MEQ TAB.ER PO SCH (21:48)
[2017-02-27] MEDS: METOPROLOL TARTRATE 50 MG TAB PO SCH (21:48)
[2017-02-27] MEDS: PREGABALIN 50 MG CAP PO SCH (21:54)
[2017-02-28 06:35] LABS: Anisocytosis Slight; Basophils % (A) 0 %; CH 25.3; CHCM 28.9; Eosinophils # (A) 0.1 k/uL (0-0.7); Eosinophils % (A) 1 %; HCT 25.8 % (39.0-53.0); HDW 3.34; HGB 7.4 gm/dL (13.0-17.5); Hypochromasia Marked; Luc # (Auto) 0.25; Luc % (Auto) 2; Lymphocytes # (A) 1.1 k/uL (1.0-4.8); Lymphocytes % (A) 9 %; MCH 25.2 pg (25.0-35.0); MCHC 28.6 g/dL (31.0-37.0); MCV 88.2 fL (80.0-100.0); Mean Platelet Volume 8.1; Monocytes # (A) 0.6 k/uL (0-1.0); Monocytes % (A) 5 %; Neutrophils # (A) 10.5 k/uL (1.3-7.7); Neutrophils % (A) 83 %; RBC 2.93 m/uL (4.30-5.90); RDW 19.5 % (11.5-15.5); WBC 12.7 k/uL (3.8-10.6); WBC (Perox) 12.83
[2017-02-28 06:41] LABS: Amylase 132 U/L (30-110); Anion Gap 5 mmol/L; Blood Urea Nitrogen 17 mg/dL (9-20); Calcium 7.8 mg/dL (8.4-10.2); Carbon Dioxide 30 mmol/L (22-30); Chloride 104 mmol/L (98-107); Glucose 162 mg/dL (74-99); Non-African American GFR(MDRD) >60 (>60 ml/min/1.73 sqM); Potassium 4.3 mmol/L (3.5-5.1); Sodium 139 mmol/L (137-145)
[2017-02-28] MEDS: PANTOPRAZOLE 40 MG TABLET PO SCH (06:42)
[2017-02-28 06:43] LABS: INR 2.1 (<1.2); Prothrombin Time 20.4 sec (9.0-12.0)
[2017-02-28] MEDS: SODIUM CHLORIDE 0.9% 1,000 ML IV SCH ×3 (06:48→20:26)
[2017-02-28] MEDS: ALBUTEROL NEBULIZED 2.5 MG/3 ML INHALATION SCH ×2 (08:06→18:58)
[2017-02-28] MEDS: SYMBICORT 160-4.5 MCG INHALER INHALATION SCH ×2 (08:06→18:59)
[2017-02-28] MEDS: THIAMINE 100 MG TAB PO SCH (08:21)
[2017-02-28] MEDS: METOPROLOL TARTRATE 50 MG TAB PO SCH ×2 (08:21→20:23)
[2017-02-28] MEDS: SPIRONOLACTONE 25 MG TAB PO SCH (08:21)
[2017-02-28] MEDS: DILTIAZEM CD 240 MG CAP.ER.24H PO SCH (08:21)
[2017-02-28] MEDS: POTASSIUM CHLORIDE ER 20 MEQ TAB.ER PO SCH ×2 (08:21→20:23)
[2017-02-28] MEDS: MULTIVITAMINS, THERA 1 EACH TAB PO SCH (08:21)
[2017-02-28] MEDS: FOLIC ACID 1 MG TAB PO SCH (08:21)
[2017-02-28] MEDS: FUROSEMIDE 40 MG TAB PO SCH ×2 (08:21→15:25)
[2017-02-28] MEDS: PREGABALIN 50 MG CAP PO SCH ×2 (09:05→20:26)
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
--- NOTE | 2017-02-28 10:26 | HP ---
DATE OF ADMISSION: 02/27/17 CHIEF COMPLAINT: Weakness. HISTORY OF PRESENT ILLNESS: This 66-year-old gentleman with past medical history of multiple medical problems including atrial fibrillation, CAD, COPD, DVT, aortic valve replacement with bioprosthetic valve, history of chronic stable aortic dissection as well as history of DVT and multiple other medical issues being followed by Dr. Colin in the outpatient setting was complaining of weakness. The patient was recently admitted with sepsis of undetermined etiology. The patient was given Augmentin as an outpatient with steroids also. The patient went home. Currently, the patient is complaining of fatigue and malaise and which is ongoing for three or four days and the patient is shaky and the patient came to [facility] and admitted for further evaluation and treatment. The patient is mildly febrile up to 100 degrees and the labs showed WBC 17.6 and INR is 3. Lactic acid is elevated at 3.6. UA showed abnormalities also. Amylase and lipase also increased. 3.6 upper abdominal pain and nausea and vomiting also. The patient unable to keep anything down. The patient came to [facility] and was admitted to the hospital for further evaluation and treatment. There is no history of fever , rigors, chills. No history of headache, loss of consciousness or seizures. Past medical history of atrial fibrillation, flutter, CAD, CHF, COPD , DVT, chronic dissection. Medications prior to admission are: Home medications are: 1. Coumadin 4 mg daily. 2. Spiriva one puff daily. 3. Vitamin B1 100 mg po daily. 4. Aldactone 25 mg daily. 5. Lyrica 50 mg po b.i.d. 6. Klor-Con 20 meq po b.i.d. 7. Prilosec 20 mg. 9. Lopressor 100 mg po b.i.d. 10. Sumrall 5 mg q6h prn. 11. Lasix 40 mg po b.i.d. 12. Folic acid 1 mg po daily. 13. Diltiazem 240 mg po daily. 14. Plavix 75 mg po daily. 15. Symbicort 160/4.5 two puffs b.i.d. 16. Lipitor 40 mg q.h.s. 17. Ecotrin 81 mg po daily. 18. Ventolin 2.5 b.i.d. ALLERGIES: None. FAMILY HISTORY: History of diabetes mellitus in the family. SOCIAL HISTORY: Previous history of smoking. Occasional alcohol intake. REVIEW OF SYSTEMS: HEENT: No diminished vision. No diminished hearing. Cardiovascular system: As mentioned earlier. Respiratory: As mentioned earlier. GI: No nausea or vomiting. : As mentioned earlier. Nervous system: No numbness or weakness. Allergy/Immunology: No asthma or hayfever. Musculoskeletal: As mentioned earlier. Hematology/oncology: No history of anemia. Endocrine: No history of diabetes or hypothyroidism. Constitutional: As mentioned earlier. Dermatology: Negative. Rheumatology: Negative. Psychiatry: As mentioned earlier. PHYSICAL EXAMINATION: The patient is alert and oriented times three. Pulse 69. Blood pressure 140/52. Respiratory rate 18, temperature 99.1 degrees. Pulse ox 100% on 2 L. HEENT: Conjunctivae normal. Oral mucosa moist. NECK: No JVD. Cardiovascular: S1, S2 muffled. Respiratory: Breath sounds diminished at the bases. A few scattered rhonchi and crackles. Abdomen is soft. Obese. Nontender. No mass palpable. Legs: No edema. Dilated veins also present. Nervous system: Higher functions as mentioned earlier. Moves all four limbs. No focal motor or sensory deficits. Lymphatics: No lymph nodes palpable in the neck, axillae or groin. SKIN: No ulcer, rash or bleeding. LABS: At this time shows WBC ntd hemoglobin 8.6. INR 3. 2.6. ASSESSMENT: 1. Acute sepsis possibly with urinary tract infection, present on admission. 2. Increased lactic acid. 3. Generalized tiredness and weakness secondary to sepsis. 4. Increased WBC. 5. Anemia. 6. Diabetes Type 2. 7. Increased amylase and lipase, possible mild acute pancreatitis. 8. History of atrial flutter, fibrillation. 9. History of coronary artery disease. 10. History of congestive heart failure. 11. History of deep venous thrombosis. 12. History of aortic valve replacement with bioprosthetic valve. 13. Chronic stable aortic dissection. 14. Chronic obstructive pulmonary disease. 15. History of deep venous thrombosis. RECOMMENDATIONS AND DISCUSSION: In this 66 -year-old gentleman who presented with multiple complex medical issues, we will monitor the patient closely, continue the current medications. Continue the symptomatic treatment. Otherwise, at this time, I would initiate broad spectrum IV antibiotics and also infectious disease evaluation also will be sought. Guarded prognosis because of multiple medical issues. Further recommendations o follow. The patient also had multiple complex medical issues as detailed above. Cardiology also will be consulted and IVY is a consideration. See orders for details. TEREZAD
[2017-02-28] MEDS: CLOPIDOGREL 75 MG TAB PO SCH (10:49)
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
[2017-02-28] MEDS ORDERED: DOCUSATE 100 MG CAP PO PRN (12:57)
[2017-02-28] MEDS ORDERED: NON-FORMULARY DRUG (Omeprazole 20 MG) PO SCH (17:30)
[2017-02-28 18:47] LABS: Hepatitis B Surface Ag Index 0.05
[2017-02-28 18:53] LABS: Hepatitis B Core IgM Index 0.02
[2017-02-28] MEDS: TIOTROPIUM 18 MCG/PUFF INHALER INHALATION SCH (18:58)
[2017-02-28 19:04] LABS: Hepatitis C Virus IgG Ab Negative (Negative); Hepatitis C Virus IgG Index 0.24
[2017-02-28] MEDS: ATORVASTATIN 40 MG TAB PO SCH (20:23)
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
[2017-03-01] MEDS: PANTOPRAZOLE 40 MG TABLET PO SCH (06:22)
[2017-03-01 06:54] LABS: Anisocytosis Slight; Basophils % (A) 0 %; CH 25.3; CHCM 28.9; Eosinophils # (A) 0.2 k/uL (0-0.7); Eosinophils % (A) 1 %; HCT 24.4 % (39.0-53.0); HDW 3.44; HGB 7.1 gm/dL (13.0-17.5); Hypochromasia Marked; Luc # (Auto) 0.27; Luc % (Auto) 3; Lymphocytes # (A) 1.1 k/uL (1.0-4.8); Lymphocytes % (A) 11 %; MCH 25.7 pg (25.0-35.0); MCHC 29.1 g/dL (31.0-37.0); MCV 88.3 fL (80.0-100.0); Mean Platelet Volume 7.1; Monocytes # (A) 0.6 k/uL (0-1.0); Monocytes % (A) 6 %; Neutrophils # (A) 8.4 k/uL (1.3-7.7); Neutrophils % (A) 80 %; Poikilocytosis Slight; RBC 2.76 m/uL (4.30-5.90); RDW 19.3 % (11.5-15.5); WBC 10.6 k/uL (3.8-10.6); WBC (Perox) 10.98
[2017-03-01 07:14] LABS: Amylase 106 U/L (30-110); Anion Gap 9 mmol/L; Blood Urea Nitrogen 9 mg/dL (9-20); Carbon Dioxide 25 mmol/L (22-30); Chloride 103 mmol/L (98-107); Glucose 149 mg/dL (74-99); Non-African American GFR(MDRD) >60 (>60 ml/min/1.73 sqM); Potassium 3.5 mmol/L (3.5-5.1); Sodium 137 mmol/L (137-145)
[2017-03-01 07:16] LABS: INR 1.6 (<1.2); Prothrombin Time 15.2 sec (9.0-12.0)
--- NOTE | 2017-03-01 07:39 | PN ---
DATE OF SERVICE: 02/28/2017 This 66-year-old gentleman admitted with weakness, also had multiple other medical problems including GI bleed also. The patient also had features of sepsis. Also, the patient had sepsis. The patient is being closely monitored in telemetry. Patient also was complaining of shaking tremors also. PAST MEDICAL HISTORY: Reviewed. REVIEW OF SYSTEMS: CARDIOVASCULAR: As mentioned earlier. GI: As mentioned earlier. : No dysuria. NERVOUS SYSTEM: No numbness or weakness. Current medications are reviewed and include: 1. [place] 5 mg q.6 p.r.n. 2. Ventolin 2.5 b.i.d. 3. Xanax 0.25 t.i.d. 4. Lipitor 40 mg q.h.s. 5. Symbicort 160/4.5, two puffs b.i.d. 6. Rocephin 1 gram daily. 7. Plavix. 8. Cardizem. 9. Colace. 10. Folic acid. 11. Lasix. 12. Lopressor. 13. Protonix. 14. K-Dur. 15. Lyrica. 16. Aldactone. 17. Restoril. 18. Vitamin B1. 19. Spiriva. PHYSICAL EXAM: The patient is alert and oriented x2. Pulse is 78, blood pressure 88/51, respirations 18, temperature 98.1, pulse ox 98% on 2 L. HEENT: Conjunctivae normal. NECK: No jugular venous distention. CARDIOVASCULAR: S1 and S2 muffled. RESPIRATORY: Breath sounds diminished at the bases. A few scattered rhonchi and crackles. ABDOMEN: Soft, obese, nontender. No mass palpable. LEGS: No edema, no swelling. NERVOUS SYSTEM: Diffusely weak and tremulous. SKIN: As mentioned earlier. LABS: WBC 12.7, hemoglobin 7.4. Plasma lactic acid is 2. Amylase and lipase noted. ASSESSMENT: 1. Acute sepsis, possible urinary tract infection, present on admission. 2. Gastrointestinal bleed with acute blood loss anemia, for evaluation. 3. Increased lactic acid. 4. Generalized tiredness and weakness, possibly secondary to sepsis. 5. Increased WBC. 6. Anemia. 7. Diabetes mellitus type 2. 8. Increased amylase and lipase, possibly mild acute pancreatitis. 9. Atrial flutter, fibrillation. 10. History of coronary artery disease. 11. History of congestive heart failure. 12. History of deep venous thrombosis. 13. History of aortic valve replacement with bioprosthetic valve. 14. Chronic stable aortic dissection. 15. Chronic obstructive pulmonary disease. 16. History of deep venous thrombosis. RECOMMENDATION AND DISCUSSION: In this 66-year-old gentleman who was admitted with multiple complex medical issues, will monitor the patient closely. Continue the current medications. Continue with symptomatic treatment. Continue with IV antibiotics. Continue to monitor hemoglobin closely. Gastroenterology consultation, possible endoscopic evaluation. Follow closely with Cardiology and Infectious Disease has been consulted Follow the cultures. A CAT scan showed stable aneurysmal aorta at thoracoabdominal junction, otherwise thought to show any acute abnormality, but however overall prognosis extremely guarded because of multiple complex medical issues. discussed at length with the family who understand and agreed. KRISTEN
[2017-03-01] MEDS: SPIRONOLACTONE 25 MG TAB PO SCH (08:06)
[2017-03-01] MEDS: MULTIVITAMINS, THERA 1 EACH TAB PO SCH (08:06)
[2017-03-01] MEDS: FUROSEMIDE 40 MG TAB PO SCH ×2 (08:06→15:26)
[2017-03-01] MEDS: POTASSIUM CHLORIDE ER 20 MEQ TAB.ER PO SCH ×2 (08:07→20:05)
[2017-03-01] MEDS: DILTIAZEM CD 240 MG CAP.ER.24H PO SCH (08:07)
[2017-03-01] MEDS: CLOPIDOGREL 75 MG TAB PO SCH (08:07)
[2017-03-01] MEDS: FOLIC ACID 1 MG TAB PO SCH (08:07)
[2017-03-01] MEDS: PREGABALIN 50 MG CAP PO SCH ×2 (08:07→20:07)
[2017-03-01] MEDS: THIAMINE 100 MG TAB PO SCH (08:07)
[2017-03-01] MEDS: SODIUM CHLORIDE 0.9% 1,000 ML IV SCH ×2 (08:09→15:26)
[2017-03-01] MEDS: SYMBICORT 160-4.5 MCG INHALER INHALATION SCH ×2 (08:25→19:55)
[2017-03-01] MEDS: TIOTROPIUM 18 MCG/PUFF INHALER INHALATION SCH (08:25)
[2017-03-01] MEDS: ALBUTEROL NEBULIZED 2.5 MG/3 ML INHALATION SCH ×2 (08:25→19:55)
[2017-03-01] MEDS: METOPROLOL TARTRATE 50 MG TAB PO SCH ×2 (10:50→20:05)
--- NOTE | 2017-03-01 12:30 | P.PN ---
Subjective Principal diagnosis: Dysphagia, melena 66-year-old male reevaluated today in regards dysphagia and melena. No reports of black colored bowel movements. History of atrial fibrillation with Coumadin monitoring presently on hold. INR 1.6. Hemoglobin 7.1. Intermittent epigastric discomfort. Objective - Vital Signs Vital signs: Vital Signs Temp 99.0 F 03/01/17 11:34 Pulse 65 03/01/17 11:34 Resp 18 03/01/17 11:34 BP 94/44 03/01/17 11:34 Pulse Ox 95 03/01/17 11:34 Intake & Output 02/28/17 03/01/17 03/01/17 18:59 06:59 18:59 Intake Total 1740 1600 240 Balance 1740 1600 240 Weight 97.1 kg Intake: IV 1600 Sodium Chloride 0.9% 1, 1600 000 ml @ 100 mls/hr IV . Q10H [facility] Rx#:[id number] Intake, IV Titration 900 Amount Sodium Chloride 0.9% 1, 800 000 ml @ 100 mls/hr IV . Q10H [facility] Rx#:[id number] cefTRIAXone 1,000 mg In 100 Sodium Chloride 0.9% 50 ml @ 100 mls/hr IVPB Q24HR [facility] Rx#:[id number] Oral 840 240 Other: Voiding Method Toilet Toilet # Voids 2 1 # Bowel Movements 1 - Exam General appearance: The patient is alert, oriented, in no acute distress. HET: Head is normocephalic and atraumatic. Pupils are equal and reactive. Oropharynx is clear without lesions. Neck: Supple without lymphadenopathy. Trachea midline. Heart: S1 S2. Lungs: No crackles or wheezes are heard. Abdomen: Soft, nontender, nondistended with bowel sounds. No peritoneal signs. No palpable organomegaly or masses. Extremities: Normal skin color and turgor. No cyanosis, rash, ulceration, clubbing, or edema. Radial and pedal pulses are 2/4 bilaterally. Neurological: No focal deficits. Strength and sensation are grossly intact. - Labs CBC & Chem 7: 03/01/17 06:14 03/01/17 06:14 Labs: Abnormal Lab Results - Last 24 Hours (Table) 03/01/17 03/01/17 03/01/17 Range/Units 06:14 06:14 06:14 RBC 2.76 L (4.30-5.90) m/uL Hgb 7.1 L (13.0-17.5) gm/dL Hct 24.4 L (39.0-53.0) % MCHC 29.1 L (31.0-37.0) g/dL RDW 19.3 H (11.5-15.5) % Neutrophils # 8.4 H (1.3-7.7) k/uL PT 15.2 H (9.0-12.0) sec INR 1.6 H (<1.2) Glucose 149 H (74-99) mg/dL Calcium 7.0 L (8.4-10.2) mg/dL Lipase 837 H (23-300) U/L Microbiology - Last 24 Hours (Table) 02/27/17 15:32 Urine Culture - Preliminary Urine,Voided Group D Enterococcus 02/27/17 14:15 Blood Culture - Preliminary Blood No Growth after 24 hours Assessment and Plan Plan: Impression; 1. Acute GI bleed possible upper GI source. Acute blood loss anemia. 2. Atrial fibrillation with Coumadin coagulopathy presently on hold current INR 1.6. 3. Dysphagia. 4. Atypical chest pain. Plan: 1. Continue GI prophylaxis IV Protonix. Continue to hold Coumadin. EGD evaluation tomorrow. The order takers supervisor has discussed the risks, benefits and alternative therapies for the above-mentioned procedure and for both sedation/analgesia as well as necessary blood product administration, if indicated, as they pertain to this patient. The patient has indicated understanding and acceptance of the risks and procedures discussed. Assessment and plan of care discussed with Dr. Santana.
--- NOTE | 2017-03-01 12:37 | P.PN ---
Subjective Date of service 03/01/2017. Personal being dictated for Dr. Desir. Interval history: This a 66-year-old gentleman admitted with acute sepsis, possible UTI, GI bleed and multiple other medical issues. Maintained on IV fluid hydration. Continues to have midepigastric tenderness. States passed black stools this morning, hemoglobin dropped to 7.1, symptomatic with feeling fatigued. States sensations of"food sometimes getting stuck in his throat". Evaluated by GI and scheduled for EGD tomorrow. Telemetry atrial fibrillation with controlled ventricular rate. Maintained on IV antibiotics as per infectious disease, T-max 100.5. Lipase 837, hepatitis panel negative. Review of systems: HEENT: Denies headache or focal deficits. Denies any dizziness or lightheadedness. Complains of fatigue. Respiratory: Denies any increased shortness of breath. Cardiac: Denies any chest pain, palpitations. GI: Denies any nausea, vomiting, or diarrhea. Complains of abdominal tenderness. : Denies any dysuria. Psychiatry: Denies any anxiety or depression. Active Medications Hydrocodone Bitart/Acetaminophen (Hector 5-325) 1 each PO Q6HR PRN PRN Reason: Pain Albuterol Sulfate (Ventolin Nebulized) 2.5 mg INHALATION RT-BID [facility] Last Admin: 03/01/17 08:25 Dose: 2.5 mg Alprazolam (Xanax) 0.25 mg PO TID PRN PRN Reason: Anxiety Atorvastatin Calcium (Lipitor) 40 mg PO HS [facility] Last Admin: 02/28/17 20:23 Dose: 40 mg Budesonide/Formoterol Fumarate (Symbicort 160-4.5 Mcg Inhaler) 2 puff INHALATION RT-BID [facility] Last Admin: 03/01/17 08:25 Dose: 2 puff Clopidogrel Bisulfate (Plavix) 75 mg PO DAILY [facility] Last Admin: 03/01/17 08:07 Dose: 75 mg Diltiazem HCl (Cardizem Cd) 240 mg PO DAILY [facility] Last Admin: 03/01/17 08:07 Dose: 240 mg Docusate Sodium (Colace) 100 mg PO DAILY PRN PRN Reason: Constipation Last Admin: 02/28/17 15:25 Dose: 100 mg Folic Acid (Folic Acid) 1 mg PO DAILY@1200 [facility] Last Admin: 03/01/17 08:07 Dose: 1 mg Furosemide (Lasix) 40 mg PO BID@0900,1600 [facility] Last Admin: 03/01/17 08:06 Dose: 40 mg Sodium Chloride (Saline 0.9%) 1,000 mls @ 100 mls/hr IV .Q10H [facility] Last Admin: 03/01/17 08:09 Dose: 100 mls/hr Ceftriaxone Sodium 1,000 mg/ (Sodium Chloride) 50 mls @ 100 mls/hr IVPB Q24HR [facility] Last Admin: 03/01/17 08:07 Dose: 100 mls/hr Metoprolol Tartrate (Lopressor) 100 mg PO BID [facility] Last Admin: 03/01/17 10:50 Dose: Not Given Multivitamins (Theragran) 1 each PO DAILY@1200 [facility] Last Admin: 03/01/17 08:06 Dose: 1 each Pantoprazole Sodium (Protonix) 40 mg PO AC-BRKFST [facility] Last Admin: 03/01/17 06:22 Dose: 40 mg Potassium Chloride (K-Dur 20) 20 meq PO BID [facility] Last Admin: 03/01/17 08:07 Dose: 20 meq Pregabalin (Lyrica) 50 mg PO BID [facility] Last Admin: 03/01/17 08:07 Dose: 50 mg Spironolactone (Aldactone) 25 mg PO DAILY [facility] Last Admin: 03/01/17 08:06 Dose: 25 mg Temazepam (Restoril) 15 mg PO HS PRN PRN Reason: Insomnia Thiamine HCl (Vitamin B-1) 100 mg PO DAILY@1200 [facility] Last Admin: 03/01/17 08:07 Dose: 100 mg Tiotropium Warren (Spiriva) 1 puff INHALATION RT-DAILY [facility] Last Admin: 03/01/17 08:25 Dose: 1 puff Objective - Vital Signs Vital signs: Vital Signs Temp 99.0 F 03/01/17 11:34 Pulse 65 03/01/17 11:34 Resp 18 03/01/17 11:34 BP 94/44 03/01/17 11:34 Pulse Ox 95 03/01/17 11:34 Intake & Output 02/28/17 03/01/17 03/01/17 18:59 06:59 18:59 Intake Total 1740 1600 240 Balance 1740 1600 240 Weight 97.1 kg Intake: IV 1600 Sodium Chloride 0.9% 1, 1600 000 ml @ 100 mls/hr IV . Q10H [facility] Rx#:[id number] Intake, IV Titration 900 Amount Sodium Chloride 0.9% 1, 800 000 ml @ 100 mls/hr IV . Q10H [facility] Rx#:[id number] cefTRIAXone 1,000 mg In 100 Sodium Chloride 0.9% 50 ml @ 100 mls/hr IVPB Q24HR [facility] Rx#:[id number] Oral 840 240 Other: Voiding Method Toilet Toilet # Voids 2 1 # Bowel Movements 1 - Exam PHYSICAL EXAM: VITAL SIGNS: As above GENERAL: [Sitting up in bed, no acute distress, tired appearing] HEENT: [Pupils equal conjunctiva normal.] NECK: [Supple, no JVD] RESPIRATORY EFFORT:[ Mildly increased] LUNGS: [Bilateral bases diminished, scattered rhonchi] CARDIOVASCULAR[ irregular, no murmurs rubs or gallops, no edema] GI: [Abdomen soft, mild mid epigastric tenderness, positive bowel sounds. No guarding, no rigidity] PSYCH: [Alert and oriented -2, mood and affect normal.] NEURO: No focal deficits, generalized diffuse weakness Microbiology 02/27/17 15:32 Urine,Voided Urine Culture - Preliminary Group D Enterococcus 02/27/17 14:15 Blood Blood Culture - Preliminary No Growth after 24 hours - Labs CBC & Chem 7: 03/01/17 06:14 03/01/17 06:14 Labs: Abnormal Lab Results - Last 24 Hours (Table) 03/01/17 03/01/17 03/01/17 Range/Units 06:14 06:14 06:14 RBC 2.76 L (4.30-5.90) m/uL Hgb 7.1 L (13.0-17.5) gm/dL Hct 24.4 L (39.0-53.0) % MCHC 29.1 L (31.0-37.0) g/dL RDW 19.3 H (11.5-15.5) % Neutrophils # 8.4 H (1.3-7.7) k/uL PT 15.2 H (9.0-12.0) sec INR 1.6 H (<1.2) Glucose 149 H (74-99) mg/dL Calcium 7.0 L (8.4-10.2) mg/dL Lipase 837 H (23-300) U/L Microbiology - Last 24 Hours (Table) 02/27/17 15:32 Urine Culture - Preliminary Urine,Voided Group D Enterococcus 02/27/17 14:15 Blood Culture - Preliminary Blood No Growth after 24 hours Assessment and Plan Plan: 1. Acute sepsis, acute UTI with group D enterococcus, present on admission. 2. [ GI bleed with acute blood loss anemia, EGD pending]. 3. [ Possible mild acute pancreatitis]. 4. [ Generalized tiredness and weakness, medical debility secondary to sepsis]. Plan: Continue on current medication regime ,monitoring and symptomatic treatment. As mentioned above scheduled for EGD in a.m. close monitoring of hemoglobin, INR,lipase. Cultures pending, antibiotics as per ID. Further recommendations to follow. The impression and plan of care has been dictated as directed. : I performed a H&P examination of this patient and discussed the same with the dictator. I agree with the dictator's note. Any additional findings/opinions/ etc. will be noted.
--- NOTE | 2017-03-01 15:10 | P.PN ---
Subjective his is a pleasant 66-year-old gentleman with history of severe COPD, chronic persistent atrial fibrillation, prior aortic valve replacement, aortic dissection being followed by Dr. Pascual at [facility], history of prior DVT, hepatitis C, hypertension, hyperlipidemia, nicotine dependence, coronary artery disease with a recent stent placement of the LAD. Patient also had a recent admission at the end of December with symptoms of atypical chest pain. He presents to the hospital on this occasion with symptoms of malaise and fatigue with progressive weakness. He states he has been having some mild abdominal discomfort at home, and feels as though he has to urinate but is unable to. Patient states that he has been sleeping most of the time, he denies having any chest discomfort, breathing has been stable overall. Patient also states that he's been experiencing constipation and been having dark stools at home. EKG on admission shows atrial fibrillation with nonspecific ST-T wave changes. Chest x-ray does not reveal any consolidation to suggest pneumonia, there are mild interstitial changes which could reflect mild congestive heart failure, bronchitis, or uncontrolled asthma. CAT scan of the abdomen and pelvis reveals some nonspecific fat stranding in the retroperitoneum, with mild free fluid collecting in the pelvis. Circumferential bladder wall thickening correlate to exclude cystitis. Stable aneurysmal aorta 4.1 cm. Large omental fat- containing ventral epigastric abdominal wall hernia, cholelithiasis and sigmoid diverticulosis. Correlate for cirrhosis given the nodular contour of the liver. Temperature on arrival here 100.0, blood pressure 88/50, heart rate in the 80s, 95% on room air. Temperature this morning 97.6, blood pressure 90/50, 97% on 2 L of oxygen. White blood cell count on arrival 17.6, 12.7 this morning. Hemoglobin on arrival 8.6, 7.4 this morning. INR on arrival 3.0, 2.1 this morning. Potassium 4.3, BUN 17, creatinine 0.9. Alkaline phosphatase 161 , albumin 3.3, amylase 159, lipase 857. Stool is positive for occult blood, positive UTI. Troponin times one has been negative. At the time of my examination this morning, patient's main complaint is feeling extremely tired, decreased appetite. The abdominal discomfort, no chest discomfort, breathing is stable. 03/01/2017 Date and examined this morning, still complaining of feeling exhausted and weak , especially when walking around. Blood pressure high 80s to low 90s systolic. Hemoglobin today 7.1. Off of his Coumadin, he continues to be on Plavix. Scheduled for an EGD tomorrow with Dr. Santana Objective - Vital Signs Vital signs: Vital Signs Temp 99.0 F 03/01/17 11:34 Pulse 65 03/01/17 11:34 Resp 18 03/01/17 11:34 BP 94/44 03/01/17 11:34 Pulse Ox 95 03/01/17 11:34 Intake & Output 02/28/17 03/01/17 03/01/17 18:59 06:59 18:59 Intake Total 1740 1600 1040 Balance 1740 1600 1040 Weight 97.1 kg Intake: IV 1600 800 Sodium Chloride 0.9% 1, 1600 800 000 ml @ 100 mls/hr IV . Q10H [facility] Rx#:[id number] Intake, IV Titration 900 Amount Sodium Chloride 0.9% 1, 800 000 ml @ 100 mls/hr IV . Q10H [facility] Rx#:[id number] cefTRIAXone 1,000 mg In 100 Sodium Chloride 0.9% 50 ml @ 100 mls/hr IVPB Q24HR [facility] Rx#:[id number] Oral 840 240 Other: Voiding Method Toilet Toilet # Voids 2 1 # Bowel Movements 1 - Exam PHYSICAL EXAMINATION: HEENT: Head is atraumatic, normocephalic. Pupils equal, round. Neck is supple. There is no elevated jugular venous pressure. HEART EXAMINATION: Heart S1 and S2 irregularly irregular a systolic murmur is heard. CHEST EXAMINATION: Lungs are clear to auscultation and precussion. No chest wall tenderness is noted on palpation or with deep breathing. ABDOMEN: Soft, obese, mild tenderness on palpation. Bowel sounds are heard. No organomegaly noted. EXTREMITIES: 1+ peripheral pulses with no evidence of peripheral edema and no calf tenderness noted. NEUROLOGIC patient is awake, alert and oriented -3. - Labs CBC & Chem 7: 03/01/17 06:14 03/01/17 06:14 Labs: Abnormal Lab Results - Last 24 Hours (Table) 03/01/17 03/01/17 03/01/17 Range/Units 06:14 06:14 06:14 RBC 2.76 L (4.30-5.90) m/uL Hgb 7.1 L (13.0-17.5) gm/dL Hct 24.4 L (39.0-53.0) % MCHC 29.1 L (31.0-37.0) g/dL RDW 19.3 H (11.5-15.5) % Neutrophils # 8.4 H (1.3-7.7) k/uL PT 15.2 H (9.0-12.0) sec INR 1.6 H (<1.2) Glucose 149 H (74-99) mg/dL Calcium 7.0 L (8.4-10.2) mg/dL Lipase 837 H (23-300) U/L Microbiology - Last 24 Hours (Table) 02/27/17 15:32 Urine Culture - Preliminary Urine,Voided Group D Enterococcus 02/27/17 14:15 Blood Culture - Preliminary Blood No Growth after 24 hours Assessment and Plan Plan: Assessment and plan #1 symptoms of malaise and fatigue with associated weakness, possible sepsis. Currently on antibiotics. Positive UTI. #2 symptoms of abdominal discomfort and constipation with positive heme in the stool. Hemoglobin 7.1. today #3 chronic persistent atrial fibrillation, Coumadin on hold #4 coronary artery disease with LAD stenting in December of this year, on Plavix #5 COPD #6 elevated amylase and lipase levels #7 aortic aneurysm with mild aortic dissection #8 prior DVT #9 hypertension #10 hyperlipidemia #11 prior aortic valve replacement. Plan Patient's symptoms of exertional fatigue and exhaustion as well as his hypotension may be secondary to his anemia. Patient is scheduled to undergo an EGD tomorrow. We will continue to follow DNP note has been reviewed, I agree with a documented findings and plan of care. Patient was seen and examined.
[2017-03-01] MEDS: ATORVASTATIN 40 MG TAB PO SCH (20:05)
[2017-03-01] MEDS: AMPICILLIN-SULBACTAM 1.5 GM in SODIUM CHLORIDE 0.9% 50 ML IVPB SCH (20:54)
[2017-03-02] MEDS: AMPICILLIN-SULBACTAM 1.5 GM in SODIUM CHLORIDE 0.9% 50 ML IVPB SCH ×4 (02:58→21:03)
[2017-03-02] MEDS: SODIUM CHLORIDE 0.9% 1,000 ML IV SCH ×3 (02:58→17:33)
[2017-03-02] MEDS: PANTOPRAZOLE 40 MG TABLET PO SCH (03:00)
[2017-03-02 06:39] LABS: INR 1.4 (<1.2); Prothrombin Time 13.3 sec (9.0-12.0)
[2017-03-02 06:47] LABS: Amylase 126 U/L (30-110); Anion Gap 6 mmol/L; Blood Urea Nitrogen 8 mg/dL (9-20); Calcium 7.4 mg/dL (8.4-10.2); Carbon Dioxide 28 mmol/L (22-30); Chloride 104 mmol/L (98-107); Glucose 168 mg/dL (74-99); Non-African American GFR(MDRD) >60 (>60 ml/min/1.73 sqM); Potassium 3.6 mmol/L (3.5-5.1); Sodium 138 mmol/L (137-145)
[2017-03-02 06:55] LABS: Anisocytosis Slight; Basophils % (A) 0 %; CH 25.2; CHCM 28.9; Eosinophils # (A) 0.2 k/uL (0-0.7); Eosinophils % (A) 2 %; HCT 24.4 % (39.0-53.0); HDW 3.47; HGB 7.2 gm/dL (13.0-17.5); Hypochromasia Marked; Luc # (Auto) 0.23; Luc % (Auto) 2; Lymphocytes % (A) 11 %; MCH 25.9 pg (25.0-35.0); MCHC 29.4 g/dL (31.0-37.0); MCV 88.1 fL (80.0-100.0); Mean Platelet Volume 8.1; Monocytes # (A) 0.5 k/uL (0-1.0); Monocytes % (A) 5 %; Neutrophils # (A) 7.8 k/uL (1.3-7.7); Neutrophils % (A) 80 %; Poikilocytosis Slight; RBC 2.77 m/uL (4.30-5.90); RDW 19.3 % (11.5-15.5); WBC 9.8 k/uL (3.8-10.6); WBC (Perox) 9.73
[2017-03-02] MEDS: ALBUTEROL NEBULIZED 2.5 MG/3 ML INHALATION SCH ×2 (07:59→20:20)
[2017-03-02] MEDS: TIOTROPIUM 18 MCG/PUFF INHALER INHALATION SCH (07:59)
[2017-03-02] MEDS: SYMBICORT 160-4.5 MCG INHALER INHALATION SCH ×2 (08:00→20:20)
[2017-03-02] MEDS: POTASSIUM CHLORIDE ER 20 MEQ TAB.ER PO SCH ×2 (08:17→21:03)
[2017-03-02] MEDS: FUROSEMIDE 40 MG TAB PO SCH ×2 (08:17→15:13)
[2017-03-02] MEDS: METOPROLOL TARTRATE 50 MG TAB PO SCH ×2 (08:17→21:03)
[2017-03-02] MEDS: DILTIAZEM CD 240 MG CAP.ER.24H PO SCH (08:17)
[2017-03-02] MEDS: FOLIC ACID 1 MG TAB PO SCH (08:18)
[2017-03-02] MEDS: MULTIVITAMINS, THERA 1 EACH TAB PO SCH (08:18)
[2017-03-02] MEDS: THIAMINE 100 MG TAB PO SCH (08:18)
[2017-03-02] MEDS: SPIRONOLACTONE 25 MG TAB PO SCH (08:18)
[2017-03-02] MEDS: PREGABALIN 50 MG CAP PO SCH ×2 (08:22→21:03)
[2017-03-02] MEDS: CLOPIDOGREL 75 MG TAB PO SCH (10:03)
[2017-03-02] MEDS ORDERED: PROPOFOL 10 MG/ML 20 ML VIAL IV ONE (12:21)
[2017-03-02] MEDS ORDERED: IV FLUID CONTINUATION 1,000 ML IV ONE (12:22)
--- NOTE | 2017-03-02 12:40 | P.PCN ---
Date of Procedure: 03/02/17 Preoperative Diagnosis: Postoperative Diagnosis: Procedure(s) Performed: BRIEF HISTORY: Patient is a 66-year-old, pleasant, white male, admitted to the hospital with black tarry stools of 2 days' duration. Hemoglobin was 7.2 g/dL. He has also been complaining of epigastric discomfort and intermittent dysphagia to solids at the time of admission and hospital he was noted to have mild elevation of lipase and a CT of abdomen showed some fat stranding in the pancreas suspicious for acute pancreatitis. His and scheduled for an upper endoscopy to evaluate for possible peptic ulcer disease. PROCEDURE PERFORMED: Esophagogastroduodenoscopy. PREOPERATIVE DIAGNOSIS: Epigastric pain, intermittent dysphagia to solids and black tarry stools. IV sedation per anesthesia. PROCEDURE: After informed consent was obtained, the patient was brought into the endoscopy unit. IV sedation was administered by Anesthesia under continuous monitoring. Initially the Olympus GIF-140 video endoscope was inserted into the mouth. Esophagus intubated without any difficulty. It was gradually advanced into the stomach and duodenum and carefully examined. The bulb and the second part of the duodenum appeared normal. The scope at this time was withdrawn to the stomach, adequately insufflated with air, and upon careful examination, mucosa of the antrum, body, cardia and the fundus appeared normal. The scope was then withdrawn into the esophagus. The GE junction was located at 39 cm from the incisors. The esophagus appeared normal. There were 2 superficial erosions at the GE junction consistent with LA grade A reflux esophagitis seen and the patient tolerated the procedure well. IMPRESSION: 1. Mild gastritis and duodenitis but no active bleeding. 2. To superficial erosions at the GE junction consistent with LA grade A reflux esophagitis. RECOMMENDATIONS: The findings of this examination were discussed with the patient well as his family. He will be continued on Protonix 40 mg daily. Coming can be resumed at this time. Diet will be be advanced as tolerated. Implants: Indications for Procedure: Operative Findings: Description of Procedure:
--- NOTE | 2017-03-02 15:21 | P.PN ---
Subjective his is a pleasant 66-year-old gentleman with history of severe COPD, chronic persistent atrial fibrillation, prior aortic valve replacement, aortic dissection being followed by Dr. Pascual at [facility], history of prior DVT, hepatitis C, hypertension, hyperlipidemia, nicotine dependence, coronary artery disease with a recent stent placement of the LAD. Patient also had a recent admission at the end of December with symptoms of atypical chest pain. He presents to the hospital on this occasion with symptoms of malaise and fatigue with progressive weakness. He states he has been having some mild abdominal discomfort at home, and feels as though he has to urinate but is unable to. Patient states that he has been sleeping most of the time, he denies having any chest discomfort, breathing has been stable overall. Patient also states that he's been experiencing constipation and been having dark stools at home. EKG on admission shows atrial fibrillation with nonspecific ST-T wave changes. Chest x-ray does not reveal any consolidation to suggest pneumonia, there are mild interstitial changes which could reflect mild congestive heart failure, bronchitis, or uncontrolled asthma. CAT scan of the abdomen and pelvis reveals some nonspecific fat stranding in the retroperitoneum, with mild free fluid collecting in the pelvis. Circumferential bladder wall thickening correlate to exclude cystitis. Stable aneurysmal aorta 4.1 cm. Large omental fat- containing ventral epigastric abdominal wall hernia, cholelithiasis and sigmoid diverticulosis. Correlate for cirrhosis given the nodular contour of the liver. Temperature on arrival here 100.0, blood pressure 88/50, heart rate in the 80s, 95% on room air. Temperature this morning 97.6, blood pressure 90/50, 97% on 2 L of oxygen. White blood cell count on arrival 17.6, 12.7 this morning. Hemoglobin on arrival 8.6, 7.4 this morning. INR on arrival 3.0, 2.1 this morning. Potassium 4.3, BUN 17, creatinine 0.9. Alkaline phosphatase 161 , albumin 3.3, amylase 159, lipase 857. Stool is positive for occult blood, positive UTI. Troponin times one has been negative. At the time of my examination this morning, patient's main complaint is feeling extremely tired, decreased appetite. The abdominal discomfort, no chest discomfort, breathing is stable. 03/01/2017 Date and examined this morning, still complaining of feeling exhausted and weak , especially when walking around. Blood pressure high 80s to low 90s systolic. Hemoglobin today 7.1. Off of his Coumadin, he continues to be on Plavix. Scheduled for an EGD tomorrow with Dr. Santana 03/02/2017 patient underwent an EGD today by Dr. Santana, which resultedmild gastritis and duodenitis with no active bleeding. 2 superficial erosions at the GE junction consistent with LAD grade reflux esophagitis. We will resume the patient's Coumadin keeping the INR at the range of 1.8. We will also check iron studies. Overall patient feels well, but he does state he gets short of breath with exertion which could be secondary to his anemia.hemoglobin today is 7.2. Objective - Vital Signs Vital signs: Vital Signs Temp 98.1 F 03/02/17 15:10 Pulse 68 03/02/17 15:10 Resp 18 03/02/17 15:10 BP 105/55 03/02/17 15:10 Pulse Ox 96 03/02/17 15:10 Intake & Output 03/01/17 03/02/17 03/02/17 18:59 06:59 18:59 Intake Total 1040 1700 260 Balance 1040 1700 260 Weight 98.1 kg Intake: IV 800 1650 Ampicillin-Sulbactam 1.5 50 gm In Sodium Chloride 0.9 % 50 ml @ 100 mls/hr IVPB Q6H [facility] Rx#:[id number] Sodium Chloride 0.9% 1, 800 1600 000 ml @ 100 mls/hr IV . Q10H [facility] Rx#:[id number] Intake, IV Titration 50 Amount Ampicillin-Sulbactam 1.5 50 gm In Sodium Chloride 0.9 % 50 ml @ 100 mls/hr IVPB Q6H [facility] Rx#:[id number] Oral 240 260 Other: Voiding Method Toilet Toilet # Voids 0 1 # Bowel Movements 1 - Exam PHYSICAL EXAMINATION: HEENT: Head is atraumatic, normocephalic. Pupils equal, round. Neck is supple. There is no elevated jugular venous pressure. HEART EXAMINATION: Heart S1 and S2 irregularly irregular a systolic murmur is heard. CHEST EXAMINATION: Lungs are clear to auscultation and precussion. No chest wall tenderness is noted on palpation or with deep breathing. ABDOMEN: Soft, obese, mild tenderness on palpation. Bowel sounds are heard. No organomegaly noted. EXTREMITIES: 1+ peripheral pulses with no evidence of peripheral edema and no calf tenderness noted. NEUROLOGIC patient is awake, alert and oriented -3. - Labs CBC & Chem 7: 03/02/17 05:53 03/02/17 05:53 Labs: Abnormal Lab Results - Last 24 Hours (Table) 03/02/17 03/02/17 03/02/17 Range/Units 05:53 05:53 05:53 RBC 2.77 L (4.30-5.90) m/uL Hgb 7.2 L (13.0-17.5) gm/dL Hct 24.4 L (39.0-53.0) % MCHC 29.4 L (31.0-37.0) g/dL RDW 19.3 H (11.5-15.5) % Neutrophils # 7.8 H (1.3-7.7) k/uL PT 13.3 H (9.0-12.0) sec INR 1.4 H (<1.2) BUN 8 L (9-20) mg/dL Glucose 168 H (74-99) mg/dL Calcium 7.4 L (8.4-10.2) mg/dL Amylase 126 H (30-110) U/L Lipase 1008 H (23-300) U/L Microbiology - Last 24 Hours (Table) 02/27/17 15:32 Urine Culture - Final Urine,Voided Enterococcus faecalis 02/27/17 14:15 Blood Culture - Preliminary Blood No Growth after 48 hours Assessment and Plan Plan: Assessment and plan #1 symptoms of malaise and fatigue with associated weakness, possible sepsis. Currently on antibiotics. Positive UTI. #2 symptoms of abdominal discomfort and constipation with positive heme in the stool. Hemoglobin 7.1. today #3 chronic persistent atrial fibrillation, Coumadin on hold #4 coronary artery disease with LAD stenting in December of this year, on Plavix #5 COPD #6 elevated amylase and lipase levels #7 aortic aneurysm with mild aortic dissection #8 prior DVT #9 hypertension #10 hyperlipidemia #11 prior aortic valve replacement. Plan Patient's symptoms of exertional fatigue and exhaustion as well as his hypotension may be secondary to his anemia. we will obtain iron studies and start the patient on iron tablet daily. Resume Coumadin at 3 mg daily instead of 40 mg daily and maintain an INR in the range of 1.8. Continue Plavix. Patient may be able to be discharged home once cleared by the primary, a follow- up appointment will be made in the office post discharge. DNP note has been reviewed, I agree with a documented findings and plan of care. Patient was seen and examined.
[2017-03-02 16:53] LABS: % Iron Saturation 3.5 % (20-50)
[2017-03-02] MEDS: FERROUS SULFATE 325 MG TAB PO SCH (17:30)
[2017-03-02] MEDS ORDERED: WARFARIN 3 MG TAB PO SCH (18:00)
[2017-03-02] MEDS: ATORVASTATIN 40 MG TAB PO SCH (21:03)
--- NOTE | 2017-03-02 21:52 | PN ---
DATE OF SERVICE: 03/02/17 This 66 -year-old gentleman who was admitted with UTI/sepsis, also had multiple other medical issues. The patient had shortness of breath. The patient also had gastrointestinal bleeding and the patient underwent EGD by Dr. Santana showed mild gastritis. Duodenal ulcer, no active bleeding was noted. Superficial erosions were seen at the GE junction. Past medical history reviewed. PHYSICAL EXAMINATION: The patient is alert and oriented times three. Pulse 68. Blood pressure 105/54. Respiratory rate 18. Temperature 98.9 degrees. Pulse ox 97% on room air. HEENT: Conjunctivae normal. NECK: No JVD. CARDIOVASCULAR: S1, S2 muffled. RESPIRATORY: Breath sounds diminished at the bases. A few rhonchi and no crackles. Abdomen is soft. Nontender. No mass palpable. LEGS: Minimal edema noted. Nervous system: Diffusely weak. LABS: Hemoglobin 7.2, INR 1.4. Amylase 126, lipase 1008. ASSESSMENT: 1. Acute sepsis with urinary tract infection with Group B enterococcus present on admission. 2. Acute pancreatitis. 3. Gastrointestinal bleed with possible gastritis status post EGD. 4. Generalized tiredness and weakness possibly secondary to sepsis. 5. Gait dysfunction. RECOMMENDATIONS AND DISCUSSION: Continue the current medications. Continue symptomatic treatment. Continue with monitoring. Otherwise, at this time, antibiotics. Increase ambulation. The patient does not seem to be requiring ECF rehab at this time. I had a detailed discussed with the family at the beside. Guarded prognosis. Further recommendations to follow. MTDD
[2017-03-03] MEDS: AMPICILLIN-SULBACTAM 1.5 GM in SODIUM CHLORIDE 0.9% 50 ML IVPB SCH ×4 (03:24→20:02)
[2017-03-03] MEDS: SODIUM CHLORIDE 0.9% 1,000 ML IV SCH ×2 (04:29→15:21)
[2017-03-03 06:23] LABS: Anisocytosis Slight; Basophils % (A) 0 %; CH 25.6; CHCM 29.2; Eosinophils # (A) 0.2 k/uL (0-0.7); Eosinophils % (A) 2 %; HCT 23.7 % (39.0-53.0); HDW 3.51; Hypochromasia Marked; Luc # (Auto) 0.21; Luc % (Auto) 2; Lymphocytes # (A) 1.1 k/uL (1.0-4.8); Lymphocytes % (A) 12 %; MCH 25.6 pg (25.0-35.0); MCV 88.3 fL (80.0-100.0); Mean Platelet Volume 8.9; Monocytes # (A) 0.6 k/uL (0-1.0); Monocytes % (A) 6 %; Neutrophils # (A) 6.8 k/uL (1.3-7.7); Neutrophils % (A) 77 %; Poikilocytosis Slight; RBC 2.68 m/uL (4.30-5.90); RDW 19.6 % (11.5-15.5); WBC 8.8 k/uL (3.8-10.6); WBC (Perox) 9.01
[2017-03-03 06:31] LABS: INR 1.2 (<1.2); Prothrombin Time 12.3 sec (9.0-12.0)
[2017-03-03 06:32] LABS: Amylase 127 U/L (30-110); Anion Gap 6 mmol/L; Blood Urea Nitrogen 6 mg/dL (9-20); Calcium 7.3 mg/dL (8.4-10.2); Carbon Dioxide 29 mmol/L (22-30); Chloride 105 mmol/L (98-107); Glucose 160 mg/dL (74-99); Non-African American GFR(MDRD) >60 (>60 ml/min/1.73 sqM); Potassium 3.4 mmol/L (3.5-5.1); Sodium 140 mmol/L (137-145)
[2017-03-03 06:39] LABS: HGB 6.9 gm/dL (13.0-17.5)
[2017-03-03] MEDS: PANTOPRAZOLE 40 MG TABLET PO SCH (06:59)
[2017-03-03] MEDS: FERROUS SULFATE 325 MG TAB PO SCH ×2 (06:59→17:04)
[2017-03-03] MEDS: ALBUTEROL NEBULIZED 2.5 MG/3 ML INHALATION SCH ×2 (07:29→19:25)
[2017-03-03] MEDS: TIOTROPIUM 18 MCG/PUFF INHALER INHALATION SCH (07:29)
[2017-03-03] MEDS: SYMBICORT 160-4.5 MCG INHALER INHALATION SCH ×2 (07:29→19:25)
[2017-03-03] MEDS: PREGABALIN 50 MG CAP PO SCH ×2 (07:34→20:02)
[2017-03-03] MEDS: THIAMINE 100 MG TAB PO SCH (07:35)
[2017-03-03] MEDS: METOPROLOL TARTRATE 50 MG TAB PO SCH ×2 (07:35→20:02)
[2017-03-03] MEDS: FUROSEMIDE 40 MG TAB PO SCH ×2 (07:35→17:04)
[2017-03-03] MEDS: POTASSIUM CHLORIDE ER 20 MEQ TAB.ER PO SCH ×4 (07:35→20:02)
[2017-03-03] MEDS: FOLIC ACID 1 MG TAB PO SCH (07:35)
[2017-03-03] MEDS: DILTIAZEM CD 240 MG CAP.ER.24H PO SCH (07:36)
[2017-03-03] MEDS: MULTIVITAMINS, THERA 1 EACH TAB PO SCH (07:36)
[2017-03-03] MEDS: SPIRONOLACTONE 25 MG TAB PO SCH (07:36)
[2017-03-03] MEDS: CLOPIDOGREL 75 MG TAB PO SCH (07:37)
--- NOTE | 2017-03-03 10:55 | P.PN ---
Subjective Principal diagnosis: Dysphagia, melena 66-year-old male status post EGD yesterday for evaluation of dysphagia and melena with findings of mild gastritis duodenitis but no active bleeding. Superficial erosions at the GE junction consistent with LA grade a reflux esophagitis. Hemoglobin 6.9 this morning. Scheduled received blood transfusion. Denies abdominal pain. No melena hematochezia or hematemesis. Objective - Vital Signs Vital signs: Vital Signs Temp 97.6 F 03/03/17 07:47 Pulse 75 03/03/17 07:47 Resp 20 03/03/17 07:47 BP 106/54 03/03/17 07:47 Pulse Ox 99 03/03/17 07:47 Intake & Output 03/02/17 03/03/17 03/03/17 18:59 06:59 18:59 Intake Total 1680 900 240 Output Total 600 Balance 1080 900 240 Weight 98.5 kg Intake: IV 1200 900 Ampicillin-Sulbactam 1.5 100 gm In Sodium Chloride 0.9 % 50 ml @ 100 mls/hr IVPB Q6H JAYLA Rx#:[id number] Sodium Chloride 0.9% 1, 1200 800 000 ml @ 100 mls/hr IV . Q10H JAYLA Rx#:[id number] Intake, IV Titration 100 Amount Ampicillin-Sulbactam 1.5 100 gm In Sodium Chloride 0.9 % 50 ml @ 100 mls/hr IVPB Q6H JAYLA Rx#:[id number] Oral 380 240 Output: Urine 600 Other: Voiding Method Toilet Toilet Toilet # Voids 1 3 - Exam General appearance: The patient is alert, oriented, in no acute distress. HET: Head is normocephalic and atraumatic. Pupils are equal and reactive. Oropharynx is clear without lesions. Neck: Supple without lymphadenopathy. Trachea midline. Heart: S1 S2. Lungs: No crackles or wheezes are heard. Abdomen: Soft, nontender, nondistended with bowel sounds. No peritoneal signs. No palpable organomegaly or masses. Extremities: Normal skin color and turgor. No cyanosis, rash, ulceration, clubbing, or edema. Radial and pedal pulses are 2/4 bilaterally. Neurological: No focal deficits. Strength and sensation are grossly intact. - Labs CBC & Chem 7: 03/03/17 05:43 03/03/17 05:43 Labs: Abnormal Lab Results - Last 24 Hours (Table) 03/02/17 03/03/17 03/03/17 Range/Units 05:53 05:43 05:43 RBC 2.68 L (4.30-5.90) m/uL Hgb 6.9 L* (13.0-17.5) gm/dL Hct 23.7 L (39.0-53.0) % MCHC 29.0 L (31.0-37.0) g/dL RDW 19.6 H (11.5-15.5) % PT 12.3 H (9.0-12.0) sec INR 1.2 H (<1.2) Potassium (3.5-5.1) mmol/L BUN (9-20) mg/dL Glucose (74-99) mg/dL Calcium (8.4-10.2) mg/dL Iron 11 L (49-181) ug/dL % Saturation 3.5 L (20-50) % Amylase (30-110) U/L Lipase (23-300) U/L Crossmatch 03/03/17 03/03/17 Range/Units 05:43 07:53 RBC (4.30-5.90) m/uL Hgb (13.0-17.5) gm/dL Hct (39.0-53.0) % MCHC (31.0-37.0) g/dL RDW (11.5-15.5) % PT (9.0-12.0) sec INR (<1.2) Potassium 3.4 L (3.5-5.1) mmol/L BUN 6 L (9-20) mg/dL Glucose 160 H (74-99) mg/dL Calcium 7.3 L (8.4-10.2) mg/dL Iron (49-181) ug/dL % Saturation (20-50) % Amylase 127 H (30-110) U/L Lipase 997 H (23-300) U/L Crossmatch See Detail Microbiology - Last 24 Hours (Table) 02/27/17 14:15 Blood Culture - Preliminary Blood No Growth after 72 hours Assessment and Plan Plan: Impression; 1. Acute GI bleed with reported melena status post EGD with no evidence of active GI bleed possible small bowel source; last reported colonoscopy August 2016 with snare polypectomy and scattered sigmoid diverticulosis. 2. Atrial fibrillation with Coumadin coagulopathy. Coumadin restarted on Plavix. 3. Dysphagia; improved. 4. Atypical chest pain. 5. History of EtOH abuse with CT imaging suggestive of nodular liver cirrhosis possible alcohol related. Plan: 1. Continue GI prophylaxis IV Protonix. Blood transfusion. Dr. Santana recommends observe for now with supportive measures. No active bleeding. Will continue to follow. Assessment and plan of care discussed with Dr. Santana.
--- NOTE | 2017-03-03 11:38 | P.PN ---
Subjective his is a pleasant 66-year-old gentleman with history of severe COPD, chronic persistent atrial fibrillation, prior aortic valve replacement, aortic dissection being followed by Dr. Pascual at [facility], history of prior DVT, hepatitis C, hypertension, hyperlipidemia, nicotine dependence, coronary artery disease with a recent stent placement of the LAD. Patient also had a recent admission at the end of December with symptoms of atypical chest pain. He presents to the hospital on this occasion with symptoms of malaise and fatigue with progressive weakness. He states he has been having some mild abdominal discomfort at home, and feels as though he has to urinate but is unable to. Patient states that he has been sleeping most of the time, he denies having any chest discomfort, breathing has been stable overall. Patient also states that he's been experiencing constipation and been having dark stools at home. EKG on admission shows atrial fibrillation with nonspecific ST-T wave changes. Chest x-ray does not reveal any consolidation to suggest pneumonia, there are mild interstitial changes which could reflect mild congestive heart failure, bronchitis, or uncontrolled asthma. CAT scan of the abdomen and pelvis reveals some nonspecific fat stranding in the retroperitoneum, with mild free fluid collecting in the pelvis. Circumferential bladder wall thickening correlate to exclude cystitis. Stable aneurysmal aorta 4.1 cm. Large omental fat- containing ventral epigastric abdominal wall hernia, cholelithiasis and sigmoid diverticulosis. Correlate for cirrhosis given the nodular contour of the liver. Temperature on arrival here 100.0, blood pressure 88/50, heart rate in the 80s, 95% on room air. Temperature this morning 97.6, blood pressure 90/50, 97% on 2 L of oxygen. White blood cell count on arrival 17.6, 12.7 this morning. Hemoglobin on arrival 8.6, 7.4 this morning. INR on arrival 3.0, 2.1 this morning. Potassium 4.3, BUN 17, creatinine 0.9. Alkaline phosphatase 161 , albumin 3.3, amylase 159, lipase 857. Stool is positive for occult blood, positive UTI. Troponin times one has been negative. At the time of my examination this morning, patient's main complaint is feeling extremely tired, decreased appetite. The abdominal discomfort, no chest discomfort, breathing is stable. 03/01/2017 Date and examined this morning, still complaining of feeling exhausted and weak , especially when walking around. Blood pressure high 80s to low 90s systolic. Hemoglobin today 7.1. Off of his Coumadin, he continues to be on Plavix. Scheduled for an EGD tomorrow with Dr. Santana 03/02/2017 patient underwent an EGD today by Dr. Santana, which resultedmild gastritis and duodenitis with no active bleeding. 2 superficial erosions at the GE junction consistent with LAD grade reflux esophagitis. We will resume the patient's Coumadin keeping the INR at the range of 1.8. We will also check iron studies. Overall patient feels well, but he does state he gets short of breath with exertion which could be secondary to his anemia.hemoglobin today is 7.2. 03/03/2017 Patient seen and examined this morning, earlier this morning up ambulating in the hallway and feeling quite well overall. Denied any feeling of exhaustion or shortness of breath. Patient was reevaluated later in the morning, states he felt quite short of breath on returning from his walk. Hemoglobin today is down to 6.9. Patient will be receiving a blood transfusion and will also be undergoing a capsule endoscopy. Blood pressure this morning 125/60, heart rate in the 70s. INR 1.2. Objective - Vital Signs Vital signs: Vital Signs Temp 97.6 F 03/03/17 11:22 Pulse 75 03/03/17 11:22 Resp 20 03/03/17 11:22 BP 125/55 03/03/17 11:22 Pulse Ox 99 03/03/17 11:22 Intake & Output 03/02/17 03/03/17 03/03/17 18:59 06:59 18:59 Intake Total 1680 900 240 Output Total 600 Balance 1080 900 240 Weight 98.5 kg Intake: IV 1200 900 Ampicillin-Sulbactam 1.5 100 gm In Sodium Chloride 0.9 % 50 ml @ 100 mls/hr IVPB Q6H JAYLA Rx#:[id number] Sodium Chloride 0.9% 1, 1200 800 000 ml @ 100 mls/hr IV . Q10H JAYLA Rx#:[id number] Intake, IV Titration 100 Amount Ampicillin-Sulbactam 1.5 100 gm In Sodium Chloride 0.9 % 50 ml @ 100 mls/hr IVPB Q6H JAYLA Rx#:[id number] Oral 380 240 Blood Product 0 Rc Pheresis As-3 Unit 0 [id number] Output: Urine 600 Other: Voiding Method Toilet Toilet Toilet # Voids 1 3 - Exam PHYSICAL EXAMINATION: HEENT: Head is atraumatic, normocephalic. Pupils equal, round. Neck is supple. There is no elevated jugular venous pressure. HEART EXAMINATION: Heart S1 and S2 irregularly irregular a systolic murmur is heard. CHEST EXAMINATION: Lungs are clear to auscultation and precussion. No chest wall tenderness is noted on palpation or with deep breathing. ABDOMEN: Soft, obese, mild tenderness on palpation. Bowel sounds are heard. No organomegaly noted. EXTREMITIES: 1+ peripheral pulses with no evidence of peripheral edema and no calf tenderness noted. NEUROLOGIC patient is awake, alert and oriented -3. - Labs CBC & Chem 7: 03/03/17 05:43 03/03/17 05:43 Labs: Abnormal Lab Results - Last 24 Hours (Table) 03/02/17 03/03/17 03/03/17 Range/Units 05:53 05:43 05:43 RBC 2.68 L (4.30-5.90) m/uL Hgb 6.9 L* (13.0-17.5) gm/dL Hct 23.7 L (39.0-53.0) % MCHC 29.0 L (31.0-37.0) g/dL RDW 19.6 H (11.5-15.5) % PT 12.3 H (9.0-12.0) sec INR 1.2 H (<1.2) Potassium (3.5-5.1) mmol/L BUN (9-20) mg/dL Glucose (74-99) mg/dL Calcium (8.4-10.2) mg/dL Iron 11 L (49-181) ug/dL % Saturation 3.5 L (20-50) % Amylase (30-110) U/L Lipase (23-300) U/L Crossmatch 03/03/17 03/03/17 Range/Units 05:43 07:53 RBC (4.30-5.90) m/uL Hgb (13.0-17.5) gm/dL Hct (39.0-53.0) % MCHC (31.0-37.0) g/dL RDW (11.5-15.5) % PT (9.0-12.0) sec INR (<1.2) Potassium 3.4 L (3.5-5.1) mmol/L BUN 6 L (9-20) mg/dL Glucose 160 H (74-99) mg/dL Calcium 7.3 L (8.4-10.2) mg/dL Iron (49-181) ug/dL % Saturation (20-50) % Amylase 127 H (30-110) U/L Lipase 997 H (23-300) U/L Crossmatch See Detail Microbiology - Last 24 Hours (Table) 02/27/17 14:15 Blood Culture - Preliminary Blood No Growth after 72 hours Assessment and Plan Plan: Assessment and plan #1 symptoms of malaise and fatigue with associated weakness, possible sepsis. Currently on antibiotics. Positive UTI. #2 symptoms of abdominal discomfort and constipation with positive heme in the stool. Hemoglobin 6.9. today #3 chronic persistent atrial fibrillation, Coumadin on hold #4 coronary artery disease with LAD stenting in December of this year, on Plavix #5 COPD #6 elevated amylase and lipase levels #7 aortic aneurysm with mild aortic dissection #8 prior DVT #9 hypertension #10 hyperlipidemia #11 prior aortic valve replacement. Plan A shunt will receive one unit of packed red blood cells today. He will also be scheduled to undergo ENDOSCOPY. POTASSIUM 3.4 TODAY WHICH IS REPLACED. DNP note has been reviewed, I agree with a documented findings and plan of care. Patient was seen and examined.
[2017-03-03] MEDS: ATORVASTATIN 40 MG TAB PO SCH (20:02)
[2017-03-04] MEDS: AMPICILLIN-SULBACTAM 1.5 GM in SODIUM CHLORIDE 0.9% 50 ML IVPB SCH ×4 (03:20→22:17)
[2017-03-04] MEDS: SODIUM CHLORIDE 0.9% 1,000 ML IV SCH ×2 (03:21→17:35)
[2017-03-04 06:44] LABS: Anisocytosis Slight; Basophils % (A) 0 %; CH 25.9; CHCM 29.2; Eosinophils # (A) 0.2 k/uL (0-0.7); Eosinophils % (A) 2 %; HCT 25.6 % (39.0-53.0); HDW 3.75; HGB 7.6 gm/dL (13.0-17.5); Hypochromasia Marked; Luc % (Auto) 2; Lymphocytes # (A) 1.2 k/uL (1.0-4.8); Lymphocytes % (A) 15 %; MCH 26.4 pg (25.0-35.0); MCHC 29.5 g/dL (31.0-37.0); MCV 89.3 fL (80.0-100.0); Monocytes # (A) 0.5 k/uL (0-1.0); Monocytes % (A) 6 %; Neutrophils # (A) 6.1 k/uL (1.3-7.7); Neutrophils % (A) 75 %; Poikilocytosis Slight; RBC 2.87 m/uL (4.30-5.90); RDW 19.5 % (11.5-15.5); WBC 8.1 k/uL (3.8-10.6); WBC (Perox) 8.19
[2017-03-04 06:52] LABS: INR 1.3 (<1.2); Prothrombin Time 12.5 sec (9.0-12.0)
[2017-03-04] MEDS: PANTOPRAZOLE 40 MG TABLET PO SCH (06:53)
[2017-03-04] MEDS: FERROUS SULFATE 325 MG TAB PO SCH ×2 (06:53→17:35)
[2017-03-04 06:57] LABS: Amylase 118 U/L (30-110); Anion Gap 8 mmol/L; Blood Urea Nitrogen 6 mg/dL (9-20); Calcium 7.8 mg/dL (8.4-10.2); Carbon Dioxide 27 mmol/L (22-30); Chloride 105 mmol/L (98-107); Glucose 133 mg/dL (74-99); Non-African American GFR(MDRD) >60 (>60 ml/min/1.73 sqM); Potassium 4.1 mmol/L (3.5-5.1); Sodium 140 mmol/L (137-145)
--- NOTE | 2017-03-04 07:52 | PN ---
DATE OF SERVICE: 03/03/2017 This 66-year-old gentleman who was admitted with acute sepsis, UTI and group B Enterococcus is being closely monitored. The patient also had anemia. EGD did not show any acute findings, but hemoglobin has dropped to 6.9 today. Coumadin has been re-initiated and INR is 1.2. Amylase and lipase also elevated. PAST MEDICAL HISTORY: Reviewed. REVIEW OF SYSTEMS: CARDIOVASCULAR: No angina. RESPIRATORY: As mentioned earlier. GI: As mentioned. : No dysuria. NERVOUS SYSTEM: No numbness or weakness. Current medications are reviewed and include: 1. [place] 5 mg 2. Ventolin 2.5 b.i.d. 3. Xanax 0.25 t.i.d 4. Unasyn 1.5 q.6. 5. Lipitor 40 mg q.h.s 6. Symbicort 160/4.5 two puffs bid 7. Plavix 75 mg daily. 8. Cardizem 240 mg p.o daily. 9. Colace 100 mg p.o b.i.d. 10. Iron sulfate 325 mg daily. 11. Folic acid 1 mg. 12. Lasix 40 mg p.o b.i.d. 13. Lopressor 100 mg p.o b.i.d. 14. Multivitamins 1 p.o b.i.d. 15. Protonix 40 mg daily. PHYSICAL EXAMINATION: The patient is alert and oriented x3. Pulse is 58, blood pressure 111/54, respirations 18, temperature 98.4, pulse ox 90% on 2-L. HEENT: Conjunctivae pale. Oral mucosa is moist. NECK: No jugular venous distention. No carotid bruit, no lymph node enlargement. CARDIOVASCULAR: S1, S2. RESPIRATORY: Breath sounds diminished at the bases. No rhonchi, no crackles. ABDOMEN: Soft, nontender, no mass palpable. LEGS: Minimal edema. NERVOUS SYSTEM: No focal deficits. LABS: WBC 8, hemoglobin 6, INR 1.2. ASSESSMENT: 1. Acute sepsis with urinary tract infection with group B Enterococcus present on admission. 2. Acute pancreatitis. 3. Acute on chronic blood loss anemia with possible acute gastrointestinal bleed. 4. Gastritis on the EGD. 5. Generalized tiredness, weakness secondary to sepsis. 6. Gait dysfunction. 7. Possible mild acute pancreatitis of undetermined etiology. RECOMMENDATIONS AND DISCUSSION: In this 66-year-old gentleman who presented with multiple complex medical issues, we will monitor the patient closely. Continue the current medications, transfusion of at least 1 unit, monitor closely. The patient is started on Coumadin as well as Plavix per Cardiology. Will continue to monitor. Gastroenterology will monitor the patient. Pt will also need close out pt f/u re: abovementioned issues. D/W son and the pt. Understands and agrees. Further recommendations to follow. MTDD
[2017-03-04] MEDS: ALBUTEROL NEBULIZED 2.5 MG/3 ML INHALATION SCH ×2 (08:48→21:01)
[2017-03-04] MEDS: SYMBICORT 160-4.5 MCG INHALER INHALATION SCH ×2 (08:48→21:01)
--- NOTE | 2017-03-04 08:51 | P.PN ---
Subjective Principal diagnosis: Dysphagia, melena 66-year-old male status post EGD yesterday for evaluation of dysphagia and melena with findings of mild gastritis duodenitis but no active bleeding. Superficial erosions at the GE junction consistent with LA grade a reflux esophagitis. Hemoglobin 7.6 this morning. INR 1.3. 2 bowel movements this morning both nonbloody. Denies abdominal pain. Ambulating in the hallway. Objective - Vital Signs Vital signs: Vital Signs Temp 98.2 F 03/04/17 04:00 Pulse 60 03/04/17 04:00 Resp 16 03/04/17 04:00 BP 118/57 03/04/17 04:00 Pulse Ox 97 03/04/17 04:00 Intake & Output 03/03/17 03/04/17 03/04/17 18:59 06:59 18:59 Intake Total 2730 850 236 Output Total 750 Balance 1980 850 236 Weight 99.3 kg Intake: IV 1300 850 Ampicillin-Sulbactam 1.5 100 50 gm In Sodium Chloride 0.9 % 50 ml @ 100 mls/hr IVPB Q6H JAYLA Rx#:[id number] Sodium Chloride 0.9% 1, 1200 800 000 ml @ 100 mls/hr IV . Q10H JAYLA Rx#:[id number] Oral 1120 236 Blood Product 310 Rc Pheresis As-3 Unit 310 [id number] Output: Urine 750 Other: Voiding Method Toilet Toilet # Voids 1 2 # Bowel Movements 1 - Exam General appearance: The patient is alert, oriented, in no acute distress. HET: Head is normocephalic and atraumatic. Pupils are equal and reactive. Oropharynx is clear without lesions. Neck: Supple without lymphadenopathy. Trachea midline. Heart: S1 S2. Lungs: No crackles or wheezes are heard. Abdomen: Soft, nontender, nondistended with bowel sounds. No peritoneal signs. No palpable organomegaly or masses. Extremities: Normal skin color and turgor. No cyanosis, rash, ulceration, clubbing, or edema. Radial and pedal pulses are 2/4 bilaterally. Neurological: No focal deficits. Strength and sensation are grossly intact. - Labs CBC & Chem 7: 03/04/17 06:05 03/04/17 06:05 Labs: Abnormal Lab Results - Last 24 Hours (Table) 03/03/17 03/04/17 03/04/17 Range/Units 07:53 06:05 06:05 RBC 2.87 L (4.30-5.90) m/uL Hgb 7.6 L (13.0-17.5) gm/dL Hct 25.6 L (39.0-53.0) % MCHC 29.5 L (31.0-37.0) g/dL RDW 19.5 H (11.5-15.5) % PT 12.5 H (9.0-12.0) sec INR 1.3 H (<1.2) BUN (9-20) mg/dL Glucose (74-99) mg/dL Calcium (8.4-10.2) mg/dL Amylase (30-110) U/L Lipase (23-300) U/L Crossmatch See Detail 03/04/17 Range/Units 06:05 RBC (4.30-5.90) m/uL Hgb (13.0-17.5) gm/dL Hct (39.0-53.0) % MCHC (31.0-37.0) g/dL RDW (11.5-15.5) % PT (9.0-12.0) sec INR (<1.2) BUN 6 L (9-20) mg/dL Glucose 133 H (74-99) mg/dL Calcium 7.8 L (8.4-10.2) mg/dL Amylase 118 H (30-110) U/L Lipase 743 H (23-300) U/L Crossmatch Microbiology - Last 24 Hours (Table) 02/27/17 14:15 Blood Culture - Preliminary Blood No Growth after 96 hours Assessment and Plan Plan: Impression; 1. Acute GI bleed with reported melena status post EGD with no evidence of active GI bleed possible small bowel source; last reported colonoscopy August 2016 with snare polypectomy and scattered sigmoid diverticulosis. 2. Atrial fibrillation with Coumadin coagulopathy. Coumadin restarted on Plavix. 3. Dysphagia; improved. 4. Atypical chest pain. 5. History of EtOH abuse with CT imaging suggestive of nodular liver cirrhosis possible alcohol related. Plan: 1. Continue GI prophylaxis Protonix on discharge. RTO 1-2 weeks. Will sign off. Continue iron supplementation. Assessment and plan of care discussed with Dr. Santana.
[2017-03-04] MEDS: TIOTROPIUM 18 MCG/PUFF INHALER INHALATION SCH (08:59)
[2017-03-04] MEDS: CLOPIDOGREL 75 MG TAB PO SCH (09:33)
[2017-03-04] MEDS: SPIRONOLACTONE 25 MG TAB PO SCH (09:33)
[2017-03-04] MEDS: METOPROLOL TARTRATE 50 MG TAB PO SCH ×2 (09:34→22:18)
[2017-03-04] MEDS: POTASSIUM CHLORIDE ER 20 MEQ TAB.ER PO SCH ×2 (09:34→22:19)
[2017-03-04] MEDS: DILTIAZEM CD 240 MG CAP.ER.24H PO SCH (09:34)
[2017-03-04] MEDS: FUROSEMIDE 40 MG TAB PO SCH ×2 (09:34→17:35)
[2017-03-04] MEDS: PREGABALIN 50 MG CAP PO SCH ×2 (09:41→22:21)
[2017-03-04 13:22] VITALS: BMI 32.3
[2017-03-04] MEDS: MULTIVITAMINS, THERA 1 EACH TAB PO SCH (13:37)
[2017-03-04] MEDS: THIAMINE 100 MG TAB PO SCH (13:38)
[2017-03-04] MEDS: FOLIC ACID 1 MG TAB PO SCH (13:38)
--- NOTE | 2017-03-04 15:04 | P.PN ---
Subjective This is a pleasant 66-year-old gentleman with history of severe COPD, chronic persistent atrial fibrillation, prior aortic valve replacement, aortic dissection being followed by Dr. Pascual at [facility], history of prior DVT, hepatitis C, hypertension, hyperlipidemia, nicotine dependence, coronary artery disease with a recent stent placement of the LAD. Patient also had a recent admission at the end of December with symptoms of atypical chest pain. He presents to the hospital on this occasion with symptoms of malaise and fatigue with progressive weakness. He states he has been having some mild abdominal discomfort at home, and feels as though he has to urinate but is unable to. Patient states that he has been sleeping most of the time, he denies having any chest discomfort, breathing has been stable overall. Patient also states that he's been experiencing constipation and been having dark stools at home. EKG on admission shows atrial fibrillation with nonspecific ST-T wave changes. Chest x-ray does not reveal any consolidation to suggest pneumonia, there are mild interstitial changes which could reflect mild congestive heart failure, bronchitis, or uncontrolled asthma. CAT scan of the abdomen and pelvis reveals some nonspecific fat stranding in the retroperitoneum, with mild free fluid collecting in the pelvis. Circumferential bladder wall thickening correlate to exclude cystitis. Stable aneurysmal aorta 4.1 cm. Large omental fat- containing ventral epigastric abdominal wall hernia, cholelithiasis and sigmoid diverticulosis. Correlate for cirrhosis given the nodular contour of the liver. Temperature on arrival here 100.0, blood pressure 88/50, heart rate in the 80s, 95% on room air. Temperature this morning 97.6, blood pressure 90/50, 97% on 2 L of oxygen. White blood cell count on arrival 17.6, 12.7 this morning. Hemoglobin on arrival 8.6, 7.4 this morning. INR on arrival 3.0, 2.1 this morning. Potassium 4.3, BUN 17, creatinine 0.9. Alkaline phosphatase 161 , albumin 3.3, amylase 159, lipase 857. Stool is positive for occult blood, positive UTI. Troponin times one has been negative. Hgb yesterday dropped to 6.9 and the patient was given 1 unit PRBC. Coumadin has been placed on hold by Dr. Desir. Objective - Vital Signs Vital signs: Vital Signs Temp 98 F 03/04/17 11:24 Pulse 71 03/04/17 11:24 Resp 20 08/04/17 11:24 BP 92/50 03/04/17 11:24 Pulse Ox 95 03/04/17 11:24 Intake & Output 03/03/17 03/04/17 03/04/17 18:59 06:59 18:59 Intake Total 2730 850 1086 Output Total 750 Balance 5504 760 0917 Weight 99.3 kg 99.3 kg Intake: IV 1300 850 850 Ampicillin-Sulbactam 1.5 100 50 50 gm In Sodium Chloride 0.9 % 50 ml @ 100 mls/hr IVPB Q6H JAYLA Rx#:[id number] Sodium Chloride 0.9% 1, 1200 800 800 000 ml @ 100 mls/hr IV . Q10H JAYLA Rx#:[id number] Oral 1120 236 Blood Product 310 Rc Pheresis As-3 Unit 310 [id number] Output: Urine 750 Other: Voiding Method Toilet Toilet Toilet # Voids 1 2 # Bowel Movements 1 - Exam PHYSICAL EXAMINATION: HEENT: Head is atraumatic, normocephalic. Pupils equal, round. Neck is supple. There is no elevated jugular venous pressure. HEART EXAMINATION: Heart sounds irregularly irregular, S1 and S2 normal with a systolic murmur. CHEST EXAMINATION: Lungs diminished air entry bilaterally. No chest wall tenderness is noted on palpation or with deep breathing. ABDOMEN: Soft, obese, nontender. Bowel sounds are heard. No organomegaly noted. EXTREMITIES: 1+ peripheral pulses with no evidence of peripheral edema and no calf tenderness noted. NEUROLOGIC patient is awake, alert and oriented x3. . - Labs CBC & Chem 7: 03/04/17 06:05 03/04/17 06:05 Labs: Abnormal Lab Results - Last 24 Hours (Table) 03/04/17 03/04/17 03/04/17 Range/Units 06:05 06:05 06:05 RBC 2.87 L (4.30-5.90) m/uL Hgb 7.6 L (13.0-17.5) gm/dL Hct 25.6 L (39.0-53.0) % MCHC 29.5 L (31.0-37.0) g/dL RDW 19.5 H (11.5-15.5) % PT 12.5 H (9.0-12.0) sec INR 1.3 H (<1.2) BUN 6 L (9-20) mg/dL Glucose 133 H (74-99) mg/dL Calcium 7.8 L (8.4-10.2) mg/dL Amylase 118 H (30-110) U/L Lipase 743 H (23-300) U/L Microbiology - Last 24 Hours (Table) 02/27/17 14:15 Blood Culture - Preliminary Blood No Growth after 96 hours Assessment and Plan Plan: Assessment and plan #1 symptoms of malaise and fatigue with associated weakness, possible sepsis. Currently on antibiotics. Positive UTI. #2 symptoms of abdominal discomfort and constipation with positive heme in the stool. Hemoglobin 7.6 today, after one unit packed red cells yesterday #3 chronic persistent atrial fibrillation, Coumadin on hold per Dr. Desir #4 coronary artery disease with LAD stenting in December of this year, on Plavix #5 COPD #6 elevated amylase and lipase levels #7 aortic aneurysm with mild aortic dissection #8 prior DVT #9 hypertension #10 hyperlipidemia #11 prior aortic valve replacement. From cardiology's perspective, medications reviewed and we'll continue the same. Coumadin per admitting physician. Despite the patient will be discharged home in the next 24-48 hours. Further Recommendations to follow. BATCH MIXER note has been reviewed, I agree with a documented findings and plan of care. Patient was seen and examined.
--- NOTE | 2017-03-04 16:38 | PN ---
DATE OF SERVICE: 03/04/2017 This 66-year-old gentleman who was admitted with multiple medical problems including acute sepsis, UTI, group B enterococcus. Also, had GI bleeding. The EGD did not show any acute abnormality but the hemoglobin has gone down to 6.9 and had transfusion which pushpa it to 7.6. No active bleeding is complained of. The amylase and lipase are also elevated. REVIEW OF SYSTEMS: CARDIOVASCULAR: No angina. RESPIRATORY: As mentioned earlier. GI: No nausea. : No dysuria. NERVOUS SYSTEM: No numbness or weakness. Current medications reviewed and include: 1. [place] 5 mg q8h. 2. Xanax 0.25. 3. Unasyn 1.5 IV q6. 4. Lipitor. 5. Symbicort two puffs b.i.d. 6. Plavix 75 a day. 7. Cardizem 240 a day. 8. Colace 100 mg. 9. Iron sulfate 325 mg b.i.d. 10. Folic acid 1 mg daily. 11. Lopressor. 12. Protonix. 13. K-Dur. 14. Lyrica. 15. Aldactone. 16. Restoril. 17. Vitamin B. 18. Spiriva. 19. Coumadin. On exam, alert and oriented x3. Pulse 71, blood pressure 92/50, respirations 20 , temperature 98 degrees, pulse ox 94% on room air. HEENT: Conjunctivae normal. NECK: No JVD. CARDIAC: S1/S2 normal. RESPIRATORY: Diminished breath sounds at the bases. A few rhonchi. ABDOMEN: Soft, nontender. LEGS: No swelling. NEURO: No focal deficit. LABS: WBC 8, hemoglobin 7.6. INR 1.3. ASSESSMENT: 1. Acute sepsis with urinary tract infection with group B enterococcus, present on admission. 2. Acute pancreatitis. 3. Acute on chronic blood loss anemia with possible acute gastrointestinal bleed. Gastritis in the esophagogastroduodenoscopy. 4. Generalized tiredness and weakness secondary to sepsis. 5. Gait dysfunction. 6. Possible mild acute pancreatitis etiology. 7. Possible liver cirrhosis secondary to EtOH. RECOMMENDATIONS AND DISCUSSION: Continue current medication, continue to monitor, continue symptomatic treatment. Otherwise, will continue to hold the Coumadin. Discussed with gastroenterology. Discussed with cardiology. Prognosis guarded. Further recommendations to follow. Prognosis guarded. MTDD
[2017-03-04] MEDS ORDERED: MAGNESIUM CITRATE 296 ML BOTTLE PO ONE (19:00)
[2017-03-04] MEDS: ATORVASTATIN 40 MG TAB PO SCH (22:18)
[2017-03-05] MEDS: AMPICILLIN-SULBACTAM 1.5 GM in SODIUM CHLORIDE 0.9% 50 ML IVPB SCH ×4 (03:30→21:06)
[2017-03-05] MEDS: SODIUM CHLORIDE 0.9% 1,000 ML IV SCH ×2 (06:34→10:39)
[2017-03-05] MEDS: SYMBICORT 160-4.5 MCG INHALER INHALATION SCH ×2 (09:17→19:30)
[2017-03-05] MEDS: ALBUTEROL NEBULIZED 2.5 MG/3 ML INHALATION SCH ×2 (09:17→19:30)
[2017-03-05] MEDS: TIOTROPIUM 18 MCG/PUFF INHALER INHALATION SCH (09:17)
[2017-03-05 09:30] LABS: Anisocytosis Moderate; CH 26.1; CHCM 29.3; HCT 27.2 % (39.0-53.0); HDW 3.69; HGB 7.9 gm/dL (13.0-17.5); Hypochromasia Marked; MCH 26.1 pg (25.0-35.0); MCHC 29.1 g/dL (31.0-37.0); MCV 89.8 fL (80.0-100.0); Mean Platelet Volume 9.6; Poikilocytosis Slight; RBC 3.03 m/uL (4.30-5.90); RDW 20.2 % (11.5-15.5); WBC 7.1 k/uL (3.8-10.6)
[2017-03-05] MEDS ORDERED: SIMETHICONE 40 MG/0.6 ML DROPS 2,000 MG/30 ML BOTTLE PO ONE (09:45)
--- NOTE | 2017-03-05 10:04 | P.PN ---
Subjective his is a pleasant 66-year-old gentleman with history of severe COPD, chronic persistent atrial fibrillation, prior aortic valve replacement, aortic dissection being followed by Dr. Pascual at [facility], history of prior DVT, hepatitis C, hypertension, hyperlipidemia, nicotine dependence, coronary artery disease with a recent stent placement of the LAD. Patient also had a recent admission at the end of December with symptoms of atypical chest pain. He presents to the hospital on this occasion with symptoms of malaise and fatigue with progressive weakness. He states he has been having some mild abdominal discomfort at home, and feels as though he has to urinate but is unable to. Patient states that he has been sleeping most of the time, he denies having any chest discomfort, breathing has been stable overall. Patient also states that he's been experiencing constipation and been having dark stools at home. EKG on admission shows atrial fibrillation with nonspecific ST-T wave changes. Chest x-ray does not reveal any consolidation to suggest pneumonia, there are mild interstitial changes which could reflect mild congestive heart failure, bronchitis, or uncontrolled asthma. CAT scan of the abdomen and pelvis reveals some nonspecific fat stranding in the retroperitoneum, with mild free fluid collecting in the pelvis. Circumferential bladder wall thickening correlate to exclude cystitis. Stable aneurysmal aorta 4.1 cm. Large omental fat- containing ventral epigastric abdominal wall hernia, cholelithiasis and sigmoid diverticulosis. Correlate for cirrhosis given the nodular contour of the liver. Temperature on arrival here 100.0, blood pressure 88/50, heart rate in the 80s, 95% on room air. Temperature this morning 97.6, blood pressure 90/50, 97% on 2 L of oxygen. White blood cell count on arrival 17.6, 12.7 this morning. Hemoglobin on arrival 8.6, 7.4 this morning. INR on arrival 3.0, 2.1 this morning. Potassium 4.3, BUN 17, creatinine 0.9. Alkaline phosphatase 161 , albumin 3.3, amylase 159, lipase 857. Stool is positive for occult blood, positive UTI. Troponin times one has been negative. At the time of my examination this morning, patient's main complaint is feeling extremely tired, decreased appetite. The abdominal discomfort, no chest discomfort, breathing is stable. 03/01/2017 Date and examined this morning, still complaining of feeling exhausted and weak , especially when walking around. Blood pressure high 80s to low 90s systolic. Hemoglobin today 7.1. Off of his Coumadin, he continues to be on Plavix. Scheduled for an EGD tomorrow with Dr. Santana 03/02/2017 patient underwent an EGD today by Dr. Santana, which resultedmild gastritis and duodenitis with no active bleeding. 2 superficial erosions at the GE junction consistent with LAD grade reflux esophagitis. We will resume the patient's Coumadin keeping the INR at the range of 1.8. We will also check iron studies. Overall patient feels well, but he does state he gets short of breath with exertion which could be secondary to his anemia.hemoglobin today is 7.2. 03/03/2017 Patient seen and examined this morning, earlier this morning up ambulating in the hallway and feeling quite well overall. Denied any feeling of exhaustion or shortness of breath. Patient was reevaluated later in the morning, states he felt quite short of breath on returning from his walk. Hemoglobin today is down to 6.9. Patient will be receiving a blood transfusion and will also be undergoing a capsule endoscopy. Blood pressure this morning 125/60, heart rate in the 70s. INR 1.2. 03/05/2017 Seen and examined this morning, being prepared for the capsule endoscopy this morning. Overall feeling well. Blood pressure 110/60 with a heart rate in the 60s, 98% on 2 L of oxygen. Hemoglobin 7.9. Coumadin continues to be on hold. Objective - Vital Signs Vital signs: Vital Signs Temp 97.8 F 03/05/17 08:40 Pulse 68 03/05/17 09:29 Resp 16 03/05/17 08:40 BP 110/68 03/05/17 08:40 Pulse Ox 98 03/05/17 08:40 Intake & Output 03/04/17 03/05/17 03/05/17 18:59 06:59 18:59 Intake Total 1086 Output Total 750 Balance 1086 -750 Weight 99.3 kg 98.7 kg Intake: IV 850 Ampicillin-Sulbactam 1.5 50 gm In Sodium Chloride 0.9 % 50 ml @ 100 mls/hr IVPB Q6H JAYLA Rx#:[id number] Sodium Chloride 0.9% 1, 800 000 ml @ 100 mls/hr IV . Q10H JAYLA Rx#:[id number] Oral 236 Output: Urine 750 Other: Voiding Method Toilet Toilet Toilet # Voids 1 2 - Exam PHYSICAL EXAMINATION: HEENT: Head is atraumatic, normocephalic. Pupils equal, round. Neck is supple. There is no elevated jugular venous pressure. HEART EXAMINATION: Heart S1 and S2 irregularly irregular a systolic murmur is heard. CHEST EXAMINATION: Lungs are clear to auscultation and precussion. No chest wall tenderness is noted on palpation or with deep breathing. ABDOMEN: Soft, obese, mild tenderness on palpation. Bowel sounds are heard. No organomegaly noted. EXTREMITIES: 1+ peripheral pulses with no evidence of peripheral edema and no calf tenderness noted. NEUROLOGIC patient is awake, alert and oriented -3. - Labs CBC & Chem 7: 03/05/17 09:08 03/04/17 06:05 Labs: Abnormal Lab Results - Last 24 Hours (Table) 03/05/17 Range/Units 09:08 RBC 3.03 L (4.30-5.90) m/uL Hgb 7.9 L (13.0-17.5) gm/dL Hct 27.2 L (39.0-53.0) % MCHC 29.1 L (31.0-37.0) g/dL RDW 20.2 H (11.5-15.5) % Microbiology - Last 24 Hours (Table) 02/27/17 14:15 Blood Culture - Preliminary Blood No Growth after 120 hours Assessment and Plan Plan: Assessment and plan #1 symptoms of malaise and fatigue with associated weakness, possible sepsis. Currently on antibiotics. Positive UTI. #2 symptoms of abdominal discomfort and constipation with positive heme in the stool. Hemoglobin 6.9. today #3 chronic persistent atrial fibrillation, Coumadin on hold #4 coronary artery disease with LAD stenting in December of this year, on Plavix #5 COPD #6 elevated amylase and lipase levels #7 aortic aneurysm with mild aortic dissection #8 prior DVT #9 hypertension #10 hyperlipidemia #11 prior aortic valve replacement. Plan From cardiology's perspective, we'll continue the patient on his current medications. Capsule Endoscopy Initiated Today. Hemodynamically stable. DNP note has been reviewed, I agree with a documented findings and plan of care. Patient was seen and examined.
[2017-03-05] MEDS: FERROUS SULFATE 325 MG TAB PO SCH ×2 (13:51→16:49)
[2017-03-05] MEDS: DILTIAZEM CD 240 MG CAP.ER.24H PO SCH (13:52)
[2017-03-05] MEDS: METOPROLOL TARTRATE 50 MG TAB PO SCH ×2 (13:52→20:34)
[2017-03-05] MEDS: PANTOPRAZOLE 40 MG TABLET PO SCH (13:52)
[2017-03-05] MEDS: CLOPIDOGREL 75 MG TAB PO SCH (13:52)
[2017-03-05] MEDS: FUROSEMIDE 40 MG TAB PO SCH ×2 (13:52→16:48)
[2017-03-05] MEDS: POTASSIUM CHLORIDE ER 20 MEQ TAB.ER PO SCH ×2 (13:53→20:35)
[2017-03-05] MEDS: FOLIC ACID 1 MG TAB PO SCH (13:53)
[2017-03-05] MEDS: SPIRONOLACTONE 25 MG TAB PO SCH (13:53)
[2017-03-05] MEDS: THIAMINE 100 MG TAB PO SCH (13:55)
[2017-03-05] MEDS: MULTIVITAMINS, THERA 1 EACH TAB PO SCH (13:55)
[2017-03-05] MEDS: PREGABALIN 50 MG CAP PO SCH ×2 (13:59→21:06)
--- NOTE | 2017-03-05 15:17 | PN ---
DATE OF SERVICE: 03/05/2017 Patient is a 66-year-old pleasant white male admitted to the hospital with UTI/ sepsis and some GI bleeding. Was having some black tarry stools, dropped his hemoglobin to 7.6 gm/dL at the time of admission to the hospital. He has an upper endoscopy done that showed some gastritis but otherwise unremarkable. He continued to drop his hemoglobin to 6.9 yesterday and hence we were asked to see the patient again. The patient has been on aspirin and Plavix for recent coronary artery disease, stent placement a month ago. He was on Coumadin which has been on hold because of ongoing issues with possible bleeding as well as drop in hemoglobin. He denies any abdominal pain, no dysphagia or odynophagia. He had some dark-colored stool this morning. On physical examination, he appears comfortable, in no apparent distress. Vital signs are stable. Blood pressure is 104/62, pulse of 75, temperature 98.7. HEENT examination unremarkable. Conjunctivae are pink, sclerae nonicteric. Oral cavity no lesions. NECK: No JVD or lymph node enlargement. Chest was clear to auscultation. HEART: Regular rate and rhythm. ABDOMEN: Soft, bowel sounds are positive, no organomegaly. EXTREMITIES: No pedal edema. SKIN: No rashes. NEURO: Alert and oriented x3. No focal deficits. Labs done last night, hemoglobin was 6.9, today it is 7.6, INR 1.3, basic metabolic panel is within normal limits. Amylase is 118, lipase is 743. IMPRESSION: 1. Anemia with gradual drop in hemoglobin but clinically patient is not having an active ongoing bleeding. He does say his stool is somewhat dark in color but no obvious melena. He did have an upper endoscopy done by me 2 days ago that shows some gastritis. Colonoscopy done 6 months ago showed a small colon polyp or diverticulosis. At this time, possibility of small bowel source of bleeding cannot be excluded. 2. History of coronary artery disease, status post stent placement 1 month ago. He is on aspirin and Plavix currently. 3. Atrial fibrillation, was on Coumadin, currently on hold because of ongoing drop in hemoglobin. RECOMMENDATIONS: 1. Patient is scheduled for a small bowel capsule endoscopy to evaluate for small bowel source of bleeding. 2. Continue to hold the Coumadin for now. 3. Regular diet. 4. Continue with IV Protonix and will follow the patient closely in the hospital. Thank you for this consultation. KRISTEN
[2017-03-05] MEDS: ATORVASTATIN 40 MG TAB PO SCH (20:35)
[2017-03-06] MEDS: AMPICILLIN-SULBACTAM 1.5 GM in SODIUM CHLORIDE 0.9% 50 ML IVPB SCH ×2 (02:50→08:27)
[2017-03-06] MEDS: FERROUS SULFATE 325 MG TAB PO SCH (06:43)
[2017-03-06] MEDS: PANTOPRAZOLE 40 MG TABLET PO SCH (06:43)
[2017-03-06] MEDS: TIOTROPIUM 18 MCG/PUFF INHALER INHALATION SCH (07:54)
[2017-03-06] MEDS: SYMBICORT 160-4.5 MCG INHALER INHALATION SCH (07:54)
[2017-03-06] MEDS: ALBUTEROL NEBULIZED 2.5 MG/3 ML INHALATION SCH (07:54)
[2017-03-06] MEDS: CLOPIDOGREL 75 MG TAB PO SCH (08:21)
[2017-03-06] MEDS: POTASSIUM CHLORIDE ER 20 MEQ TAB.ER PO SCH (08:21)
[2017-03-06] MEDS: DILTIAZEM CD 240 MG CAP.ER.24H PO SCH (08:21)
[2017-03-06] MEDS: METOPROLOL TARTRATE 50 MG TAB PO SCH (08:21)
[2017-03-06] MEDS: FUROSEMIDE 40 MG TAB PO SCH (08:21)
[2017-03-06] MEDS: SPIRONOLACTONE 25 MG TAB PO SCH (08:22)
--- NOTE | 2017-03-06 08:59 | PN ---
DATE OF SERVICE: 03/05/17 This 66-year-old gentleman was admitted with sepsis and also had anemia, also had upper endoscopy. The patient had a drop in hemoglobin. A small bowel capsule endoscopy is planned by Dr. Santana. Cardiology is follow the patient. The patient is off Coumadin at this time. Past medical history reviewed. REVIEW OF SYSTEMS: Cardiology: As mentioned earlier. Respiratory: As mentioned earlier. GI: As mentioned earlier. : No dysuria. Nervous system: No numbness, weakness. Current medications include: 1. Howard 5 mg b.i.d. prn 2. Xanax 0.5 t.i.d. 3. Unasyn 1.5 q6h. 4. Lipitor. 5. Symbicort. 6. Plavix 75 mg. 7. Cardizem CD 240 mg daily. 8. Colace. 9. Folic acid. 10. Lasix. 11. Multivitamins. 12. Protonix. 13. K-Dur. 14. Lyrica. 15. Restoril. 16. Vitamin B1. 17. Spiriva. PHYSICAL EXAMINATION: On exam, alert and oriented times three. Pulse 74, blood pressure 108/61. Respiratory rate 16. Temperature 97.8 degrees. Pulse ox 94% on room air. HEENT: Conjunctivae pale. NECK: no JVD. CARDIOVASCULAR: S1, S2 muffled. RESPIRATORY: Breath sounds diminished at the bases. A few scattered rhonchi and no crackles. Abdomen is soft. Obese. Nontender. LEGS: No edema. No swelling. Nervous system: No focal deficits. LABS: Hemoglobin 7.9. Amylase and lipase elevated. ASSESSMENT: 1. Acute sepsis with urinary tract infection with Group B enterococcus present on admission. 2. Acute pancreatitis. 3. Acute on chronic blood loss anemia with possible gastrointestinal bleed only showing gastritis in the EGD on capsule endoscopy. 4. Generalized tiredness secondary to sepsis, present on admission. 5. Gait dysfunction. 6. Mild acute pancreatitis of undetermined etiology. 7. Possible nodular liver cirrhosis secondary to ETOH on the CT scan. RECOMMENDATIONS AND DISCUSSION: Continue the current medications. Continue with monitoring and symptomatic treatment. Otherwise, at this time, . Continue antiplatelets. Hold Coumadin. Guarded prognosis because of multiple complex medical problems. Continue the rest of the medications. Further recommendations to follow. [facility]
[2017-03-06 09:18] VITALS: RESP 18; TEMP 96.9
[2017-03-06 12:28] VITALS: BP 108/56; PULSE 56
[2017-03-06] MEDS: PREGABALIN 50 MG CAP PO SCH (12:55)
[2017-03-06] MEDS: THIAMINE 100 MG TAB PO SCH (12:56)
[2017-03-06] MEDS: MULTIVITAMINS, THERA 1 EACH TAB PO SCH (12:56)
[2017-03-06] MEDS: FOLIC ACID 1 MG TAB PO SCH (12:56)
[2017-03-06 13:48] LABS: Anisocytosis Moderate; Basophils % (A) 1 %; CH 26.1; CHCM 28.7; Eosinophils # (A) 0.2 k/uL (0-0.7); Eosinophils % (A) 3 %; HCT 31.1 % (39.0-53.0); HDW 3.58; HGB 8.8 gm/dL (13.0-17.5); Hypochromasia Marked; Luc # (Auto) 0.28; Luc % (Auto) 3; Lymphocytes # (A) 1.2 k/uL (1.0-4.8); Lymphocytes % (A) 14 %; MCH 26.1 pg (25.0-35.0); MCHC 28.4 g/dL (31.0-37.0); MCV 91.6 fL (80.0-100.0); Macrocytosis Slight; Mean Platelet Volume 9.1; Monocytes # (A) 0.5 k/uL (0-1.0); Monocytes % (A) 6 %; Neutrophils # (A) 6.2 k/uL (1.3-7.7); Neutrophils % (A) 73 %; Poikilocytosis Slight; RDW 20.7 % (11.5-15.5); WBC 8.5 k/uL (3.8-10.6); WBC (Perox) 9.15
--- NOTE | 2017-03-07 06:56 | PN ---
The patient is a 66 -year-old pleasant white male admitted to the hospital with abdominal pain, not feeling well, on and off for the last few days duration. While in the hospital, he was gradually dropping his hemoglobin and went as low as 6.8 but now it is 7.6. As a part of workup he had an upper endoscopy done three days ago that showed some gastritis but no evidence of active bleeding. Subsequently, he had a small bowel capsule endoscopy done yesterday. In the meantime, he has been off the Coumadin but he continues to remain on aspirin and Plavix for recent stent placement for coronary artery disease. This morning he says he is feeling normal, in fact, he wants to go home. Has a good appetite. No abdominal pain. No nausea or vomiting. No dysphagia. On physical examination, he appears appears comfortable, no apparent distress. Vital signs are stable. Blood pressure is 103/52. Pulse rate 65. Temperature 97.6. HEENT: Unremarkable. Conjunctivae pink. Sclerae anicteric. Oral cavity no lesions. Neck no JVD or lymph node enlargement. Chest is clear to auscultation. Heart is regular rate and rhythm. Abdomen is soft. Bowel sounds positive. No organomegaly. Extremities no pedal edema. Skin no rashes. Neurological: Alert and oriented times three. No focal deficits. Labs: WBC 7.1, hemoglobin 7.9, platelets are normal. IMPRESSION: 1. Normocytic anemia. The patient had intermittent dark colored stools at the time of admission to the hospital. Coumadin is on hold. He continues to remain on aspirin and Plavix. Upper endoscopy three days ago showed some gastritis. He did have a small bowel capsule endoscopy done yesterday and it shows no evidence of any small bowel mucous or pathology, active bleeding, or angiectasia. Study was within normal limits. 2. Coronary artery disease on aspirin and Plavix. 3. Atrial fibrillation, Coumadin on hold. RECOMMENDATIONS: at this time, I discussed with the patient the small bowel capsule endoscopy results which was completely normal. There was no evidence of any small bowel mucous, pathology or active bleeding seen. Hence I recommend that he can be started back on the Coumadin and watch his hemoglobin on an outpatient basis. He can be discharged home today with outpatient follow-up. KRISTEN
--- NOTE | 2017-03-09 18:26 | DS ---
FINAL DIAGNOSES: 1. Urinary tract infection with acute sepsis with Group B enterococcus present on admission. 2. Acute pancreatitis. 3. Acute on chronic blood loss anemia with possible gastrointestinal bleed showing only gastritis in the EGD, capsule endoscopy findings pending. 4. Generalized tiredness and secondary sepsis present on admission. 5. Gait dysfunction. 6. Mild acute pancreatitis, undetermined etiology. 7. Possible nodular liver cirrhosis secondary to ETOH on the CT scan. DISCHARGE DISPOSITION: The patient being discharged in stable condition with guarded prognosis. Total time taken: 35 minutes. HISTORY OF PRESENT ILLNESS: This 66-year-old gentleman with past medical history of multiple medical problems, admitted to the hospital with UTI sepsis as well as GI bleed. The patient had multiple transfusions. Hemoglobin stabilized. Dr. Santana performed EGD as well as as capsule endoscopy. Final reports are pending at this time however. Hemoglobin is stable at this time, 8.8. On exam, vital signs are stable. CARDIOVASCULAR: S1, S2 muffled. Abdomen soft. Nervous system: No focal deficits. Plavix is continued. Coumadin is on hold, may be able to be restarted in the next five days to one week in the outpatient setting. Monitor CBC, PT/INR closely. Monitor amylase and lipase in the outpatient setting. DISCHARGE ADVICE AND MEDICATIONS: 1. Albuterol 2.5 q.i.d. and prn. 2. Augmentin 875 mg po b.i.d. for four days. 3. Lipitor 40 mg q.h.s. 4. Symbicort 160/4.5 two puffs b.i.d. 5. Plavix 75 mg daily. 6. Diltiazem 240 mg daily. 7. Iron sulfate 320 mg daily. 8. Folic acid 1 mg daily. 9. Lasix 40 mg po b.i.d. 10. Wiggins 5 mg q6h prn. 11. Lopressor 100 mg b.i.d. 12. Multivitamins one po daily. 13. Prilosec 20 mg q.h.s. 14. Protonix 40 mg daily. 15. K-dur 20 meq po b.i.d. 16. Lyrica 50 mg po b.i.d. 17. Aldactone 25 mg po daily. 18. Thiamin 100 mg po daily. 19. Spiriva one puff daily. 20. CBC, BMP, PT, INR to Dr. Colin. 21. Follow-up with cardiology as recommended. 22. Once again the patient is being discharged in stable condition with guarded prognosis. KRISTEN
== END 2017-03-06 16:28 | disposition home or self-care (01) | DRG 871 ==
LOC: EC 13:39 → 6SEL 16:08
PROVIDERS: ADMIT Internal Medicine; ATTEND Internal Medicine
PROC: 0DJ08ZZ Inspection of Upper Intestinal Tract, Via Natural or Artificial Opening Endoscopic (ICD-10-PCS; principal; 2017-03-02 13:25)
PROC: 30233N1 Transfusion of Nonautologous Red Blood Cells into Peripheral Vein, Percutaneous Approach (ICD-10-PCS; 2017-03-03)
DX: A41.81 Sepsis due to Enterococcus (principal); I71.00 Dissection of unspecified site of aorta; K85.90 Acute pancreatitis without necrosis or infection, unspecified; D62 Acute posthemorrhagic anemia; I48.1 Persistent atrial fibrillation; I48.92 Unspecified atrial flutter; J44.1 Chronic obstructive pulmonary disease with (acute) exacerbation; N39.0 Urinary tract infection, site not specified; K92.2 Gastrointestinal hemorrhage, unspecified; I27.2 Other secondary pulmonary hypertension; I11.0 Hypertensive heart disease with heart failure; I50.9 Heart failure, unspecified; K26.9 Duodenal ulcer, unspecified as acute or chronic, without hemorrhage or perforation; I48.2 Chronic atrial fibrillation; E11.9 Type 2 diabetes mellitus without complications; E78.5 Hyperlipidemia, unspecified; H35.30 Unspecified macular degeneration; I25.10 Atherosclerotic heart disease of native coronary artery without angina pectoris; I25.2 Old myocardial infarction; I71.9 Aortic aneurysm of unspecified site, without rupture; K21.0 Gastro-esophageal reflux disease with esophagitis; K29.70 Gastritis, unspecified, without bleeding; K29.80 Duodenitis without bleeding; K43.9 Ventral hernia without obstruction or gangrene; K57.30 Diverticulosis of large intestine without perforation or abscess without bleeding; K59.00 Constipation, unspecified; K80.20 Calculus of gallbladder without cholecystitis without obstruction; R13.10 Dysphagia, unspecified; B19.20 Unspecified viral hepatitis C without hepatic coma; R26.9 Unspecified abnormalities of gait and mobility; H93.13 Tinnitus, bilateral; R07.89 Other chest pain; E66.9 Obesity, unspecified; Z79.01 Long term (current) use of anticoagulants; Z79.02 Long term (current) use of antithrombotics/antiplatelets; Z79.82 Long term (current) use of aspirin; Z79.899 Other long term (current) drug therapy; Z85.46 Personal history of malignant neoplasm of prostate; Z87.891 Personal history of nicotine dependence; Z95.2 Presence of prosthetic heart valve; Z95.5 Presence of coronary angioplasty implant and graft; Z82.49 Family history of ischemic heart disease and other diseases of the circulatory system
CPT/HCPCS: 36415; 43235; 71020; 74176; 80048; 80053; 80074; 81001; 82150; 82272; 83540; 83550; 83605; 83690; 84132; 84484; 85025; 85027; 85610; 85730; 86850; 86900; 86901; 86920; 87040; 87077; 87086; 87186; 91110; 93005; 94640; 94760; 96361; 96365; 96367; 99285

== ENCOUNTER 2017-04-28 15:19 | Emergency (ER) | payer MEDICARE, BC ==
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
[2017-04-28 16:42] VITALS: BP 119/60; PULSE 54; RESP 18; TEMP 99
== END 2017-04-28 16:41 | disposition home or self-care (01) ==
LOC: EC 15:19
DX: S51.811D Laceration without foreign body of right forearm, subsequent encounter (principal); I25.10 Atherosclerotic heart disease of native coronary artery without angina pectoris; I48.91 Unspecified atrial fibrillation; I48.92 Unspecified atrial flutter; J44.9 Chronic obstructive pulmonary disease, unspecified; K21.9 Gastro-esophageal reflux disease without esophagitis; E78.5 Hyperlipidemia, unspecified; I11.0 Hypertensive heart disease with heart failure; I50.9 Heart failure, unspecified; I25.2 Old myocardial infarction; Z85.46 Personal history of malignant neoplasm of prostate; F17.200 Nicotine dependence, unspecified, uncomplicated; Z79.51 Long term (current) use of inhaled steroids; Z79.899 Other long term (current) drug therapy
CPT/HCPCS: 99282

== ENCOUNTER 2017-09-23 13:55 | Inpatient (IN) | payer MEDICARE, BC ==
[2017-09-23] MEDS ORDERED: ACETAMINOPHEN TAB 500 MG TAB PO STA (14:35)
[2017-09-23] MEDS ORDERED: IPRATROPIUM-ALBUTEROL 3 ML NEB INHALATION STA (14:36)
--- NOTE | 2017-09-23 14:41 | ED ---
General Adult HPI - General Chief complaint: Shortness of Breath Stated complaint: MUNIR Time Seen by Provider: 09/23/17 14:25 Source: patient, family, RN notes reviewed Mode of arrival: wheelchair Limitations: no limitations - History of Present Illness Initial comments: Patient is a pleasant 67-year-old male presenting to the emergency Department with cough and difficulty in breathing. Onset of symptoms was several days ago. Cough has been productive of clear sputum. Patient believes he may have had a fever a day or 2 ago. Patient does have history of chronic dyspnea associated with COPD. No leg swelling. No chest pain. - Related Data Home Medications Medication Instructions Recorded Confirmed Diltiazem HCl [Diltiazem 24Hr ER] 240 mg PO DAILY 08/23/14 09/23/17 Metoprolol Tartrate [Lopressor] 100 mg PO BID 08/23/14 09/23/17 Potassium Chloride [Klor-Con 20] 20 meq PO BID 08/23/14 09/23/17 Budesonide-Formot 160-4.5 Mcg 2 puff INHALATION RT-BID 10/07/15 09/23/17 [Symbicort 160-4.5 Mcg Inhaler] Thiamine [Vitamin B-1] 100 mg PO DAILY 11/18/15 09/23/17 Tiotropium 18 Mcg/Puff [Spiriva] 1 cap INHALATION RT-DAILY 03/19/16 09/23/17 Pregabalin [Lyrica] 50 mg PO BID 08/11/16 09/23/17 Atorvastatin [Lipitor] 40 mg PO HS 01/09/17 09/23/17 Spironolactone [Aldactone] 25 mg PO DAILY 01/09/17 09/23/17 Albuterol Nebulized [Ventolin 2.5 mg INHALATION RT-Q4H 09/23/17 09/23/17 Nebulized] Furosemide [Lasix] 40 mg PO HS 09/23/17 09/23/17 Furosemide [Lasix] 80 mg PO QAM 09/23/17 09/23/17 Pantoprazole Sodium 40 mg PO DAILY 09/23/17 09/23/17 Pantoprazole [Protonix] 40 mg PO DAILY 09/23/17 09/23/17 Vit C/E/Zn/Coppr/Lutein/Zeaxan 1 cap PO DAILY 09/23/17 09/23/17 [Preservision Areds 2 Softgel] Warfarin Sodium 4 mg PO SUTUTH 09/23/17 09/23/17 Warfarin Sodium 6 mg PO MOWEFRSA 09/23/17 09/23/17 Previous Rx's Medication Instructions Recorded Folic Acid 1 mg PO DAILY #1 tablet 09/10/14 Ferrous Sulfate [Iron (65 MG 325 mg PO DAILY #30 tab 03/06/17 Elemental)] Allergies Allergy/AdvReac Type Severity Reaction Status Date / Time No Known Allergies Allergy Verified 09/23/17 15:16 Review of Systems ROS Statement: Those systems with pertinent positive or pertinent negative responses have been documented in the HPI. ROS Other: All systems not noted in ROS Statement are negative. Constitutional: Reports: fever Eyes: Denies: eye pain ENT: Denies: ear pain Respiratory: Reports: cough, dyspnea Cardiovascular: Denies: chest pain Endocrine: Denies: heat or cold intolerance Gastrointestinal: Denies: abdominal pain Genitourinary: Denies: dysuria Musculoskeletal: Denies: back pain Skin: Denies: rash Neurological: Denies: headache Past Medical History Past Medical History: Atrial Fibrillation, Atrial Flutter, Coronary Artery Disease (CAD), Cancer, Chest Pain / Angina, Heart Failure, COPD, Deep Vein Thrombosis (DVT), Eye Disorder, GERD/Reflux, GI Bleed, Hyperlipidemia, Hypertension, Memory Impairment, Myocardial Infarction (HI), Pneumonia Additional Past Medical History / Comment(s): COPD with a baseline FEV1 of 40% of predicted, coronary artery disease stable dissection of the descending aorta, , hypertension, hyperlipidemia, chronic atrial fibrillation and is anticoagulated with warfarin, Aortic valve replacement with a bioprosthetic valve, chronic stable aortic dissection as described in the HPI being monitored ; chronic atrial fibrillation, moderate degree of pulmonary hypertension based on previous echocardiograms, previous pneumonia 2008 and 2014, prostate cancer with prostatectomy, DVT R lower leg, macular degeneration ,left arm fracture, chronic tinnitus in both ears, 02 3 liters at hs, gastritis identified on previous endoscopy, previous enterococcal urine checked infection, liver cirrhosis related to history of alcoholism. Last Myocardial Infarction Date:: unsure, had heart stent placed 4 months ago History of Any Multi-Drug Resistant Organisms: None Reported Date of last positivie culture/infection: None MDRO Source:: None Past Surgical History: Cardiac Valve Replacement, Heart Catheterization, Heart Catheterization With Stent, Hernia Repair, Orthopedic Surgery, Prostate Surgery Additional Past Surgical History / Comment(s): Aortic valve replacement, prostatectomy, right inguinal hernia repair 2, bilateral knee arthroscopy, colonoscopy, EGD, polypectomy, right leg varicose vein stripping, removal of a blood clot from the right lower extremity, neck surgery and removal of shrapnel' s from the right shoulder Past Anesthesia/Blood Transfusion Reactions: No Reported Reaction Date of Last Stent Placement:: UNK Past Psychological History: No Psychological Hx Reported Smoking Status: Current every day smoker Past Alcohol Use History: Daily Past Drug Use History: None Reported - Past Family History Mother Family Medical History: Diabetes Mellitus Additional Family Medical History / Comment(s): Mother at age 74 from diabetic complications. Father Family Medical History: Congestive Heart Failure (CHF) Additional Family Medical History / Comment(s): Father at age 91 yrs. General Exam Limitations: no limitations General appearance: alert Head exam: Present: atraumatic, normocephalic Eye exam: Present: normal appearance, PERRL ENT exam: Present: normal oropharynx Neck exam: Present: normal inspection Respiratory exam: Present: wheezes, decreased breath sounds Cardiovascular Exam: Present: irregular rhythm GI/Abdominal exam: Present: soft. Absent: tenderness Extremities exam: Present: normal inspection. Absent: calf tenderness Neurological exam: Present: alert Psychiatric exam: Present: normal affect, normal mood Skin exam: Present: normal color Course Vital Signs 09/23/17 09/23/17 09/23/17 14:15 14:38 14:48 Temperature 100.5 F H Pulse Rate 81 88 90 Respiratory 20 Rate Blood Pressure 67/41 O2 Sat by Pulse 84 L Oximetry 09/23/17 15:33 Temperature Pulse Rate 86 Respiratory 22 Rate Blood Pressure 126/86 O2 Sat by Pulse 91 L Oximetry EKG Findings - EKG Comments: EKG Findings:: A. fib with rate of 80. QRS 88. QT 380. QTC 438. Right axis. Nonspecific ST-T. Medical Decision Making - Medical Decision Making Patient reevaluated and only slightly improved. Patient still feels short of breath. Patient and family updated on results and plan. Case was discussed in detail with Dr. Linares, who will admit for Dr. Morris - Lab Data Result diagrams: 09/23/17 14:40 09/23/17 14:40 Lab Results 09/23/17 09/23/1709/23/18 Range/Units 14:40 14:40 14:40 WBC 8.8 (3.8-10.6) k/uL RBC 4.60 (4.30-5.90) m/uL Hgb 14.8 (13.0-17.5) gm/dL Hct 45.5 (39.0-53.0) % MCV 99.1 (80.0-100.0) fL MCH 32.2 (25.0-35.0) pg MCHC 32.5 (31.0-37.0) g/dL RDW 17.2 H (11.5-15.5) % Plt Count 123 L (150-450) k/uL Neutrophils % 70 % Lymphocytes % 18 % Monocytes % 7 % Eosinophils % 1 % Basophils % 1 % Neutrophils # 6.2 (1.3-7.7) k/uL Lymphocytes # 1.5 (1.0-4.8) k/uL Monocytes # 0.7 (0-1.0) k/uL Eosinophils # 0.1 (0-0.7) k/uL Basophils # 0.1 (0-0.2) k/uL Anisocytosis Slight Macrocytosis Slight PT (9.0-12.0) sec INR (<1.2) APTT (22.0-30.0) sec Sodium 143 (137-145) mmol/L Potassium 5.3 H (3.5-5.1) mmol/L Chloride 99 (98-107) mmol/L Carbon Dioxide 34 H (22-30) mmol/L Anion Gap 10 mmol/L BUN 18 (9-20) mg/dL Creatinine 1.20 (0.66-1.25) mg/dL Est GFR (MDRD) Af Amer >60 (>60 ml/min/1.73 sqM) Est GFR (MDRD) Non-Af >60 (>60 ml/min/1.73 sqM) Glucose 113 H (74-99) mg/dL Plasma Lactic Acid Silvino (0.7-2.0) mmol/L Calcium 9.3 (8.4-10.2) mg/dL Total Bilirubin 0.8 (0.2-1.3) mg/dL AST 49 (17-59) U/L ALT 28 (21-72) U/L Alkaline Phosphatase 221 H (38-126) U/L Total Creatine Kinase 51 L (55-170) U/L CK-MB (CK-2) 0.3 (0.0-2.4) ng/mL CK-MB (CK-2) Rel Index 0.6 Troponin I <0.012 (0.000-0.034) ng/mL NT-Pro-B Natriuret Pep pg/mL Total Protein 7.8 (6.3-8.2) g/dL Albumin 4.2 (3.5-5.0) g/dL Urine Color Urine Appearance (Clear) Urine pH (5.0-8.0) Ur Specific [place] (1.001-1.035) Urine Protein (Negative) Urine Glucose (UA) (Negative) Urine Ketones (Negative) Urine Blood (Negative) Urine Nitrite (Negative) Urine Bilirubin (Negative) Urine Urobilinogen (<2.0) mg/dL Ur Leukocyte Esterase (Negative) Urine RBC (0-5) /hpf Urine WBC (0-5) /hpf Ur Squamous Epith Cells (0-4) /hpf Urine Bacteria (None) /hpf Hyaline Casts (0-2) /lpf Urine Mucus (None) /hpf Influenza Type A RNA (Not Detectd) Influenza Type B (PCR) (Not Detectd) 09/23/17 09/23/17 09/23/17 Range/Units 14:40 14:40 14:40 WBC (3.8-10.6) k/uL RBC (4.30-5.90) m/uL Hgb (13.0-17.5) gm/dL Hct (39.0-53.0) % MCV (80.0-100.0) fL MCH (25.0-35.0) pg MCHC (31.0-37.0) g/dL RDW (11.5-15.5) % Plt Count (150-450) k/uL Neutrophils % % Lymphocytes % % Monocytes % % Eosinophils % % Basophils % % Neutrophils # (1.3-7.7) k/uL Lymphocytes # (1.0-4.8) k/uL Monocytes # (0-1.0) k/uL Eosinophils # (0-0.7) k/uL Basophils # (0-0.2) k/uL Anisocytosis Macrocytosis PT 14.4 H (9.0-12.0) sec INR 1.6 H (<1.2) APTT 38.1 H (22.0-30.0) sec Sodium (137-145) mmol/L Potassium (3.5-5.1) mmol/L Chloride (98-107) mmol/L Carbon Dioxide (22-30) mmol/L Anion Gap mmol/L BUN (9-20) mg/dL Creatinine (0.66-1.25) mg/dL Est GFR (MDRD) Af Amer (>60 ml/min/1.73 sqM) Est GFR (MDRD) Non-Af (>60 ml/min/1.73 sqM) Glucose (74-99) mg/dL Plasma Lactic Acid Silvino 1.6 (0.7-2.0) mmol/L Calcium (8.4-10.2) mg/dL Total Bilirubin (0.2-1.3) mg/dL AST (17-59) U/L ALT (21-72) U/L Alkaline Phosphatase (38-126) U/L Total Creatine Kinase (55-170) U/L CK-MB (CK-2) (0.0-2.4) ng/mL CK-MB (CK-2) Rel Index Troponin I (0.000-0.034) ng/mL NT-Pro-B Natriuret Pep pg/mL Total Protein (6.3-8.2) g/dL Albumin (3.5-5.0) g/dL Urine Color Urine Appearance (Clear) Urine pH (5.0-8.0) Ur Specific [place] (1.001-1.035) Urine Protein (Negative) Urine Glucose (UA) (Negative) Urine Ketones (Negative) Urine Blood (Negative) Urine Nitrite (Negative) Urine Bilirubin (Negative) Urine Urobilinogen (<2.0) mg/dL Ur Leukocyte Esterase (Negative) Urine RBC (0-5) /hpf Urine WBC (0-5) /hpf Ur Squamous Epith Cells (0-4) /hpf Urine Bacteria (None) /hpf Hyaline Casts (0-2) /lpf Urine Mucus (None) /hpf Influenza Type A RNA Not Detected (Not Detectd) Influenza Type B (PCR) Not Detected (Not Detectd) 09/23/17 09/23/17 Range/Units 14:40 15:25 WBC (3.8-10.6) k/uL RBC (4.30-5.90) m/uL Hgb (13.0-17.5) gm/dL Hct (39.0-53.0) % MCV (80.0-100.0) fL MCH (25.0-35.0) pg MCHC (31.0-37.0) g/dL RDW (11.5-15.5) % Plt Count (150-450) k/uL Neutrophils % % Lymphocytes % % Monocytes % % Eosinophils % % Basophils % % Neutrophils # (1.3-7.7) k/uL Lymphocytes # (1.0-4.8) k/uL Monocytes # (0-1.0) k/uL Eosinophils # (0-0.7) k/uL Basophils # (0-0.2) k/uL Anisocytosis Macrocytosis PT (9.0-12.0) sec INR (<1.2) APTT (22.0-30.0) sec Sodium (137-145) mmol/L Potassium (3.5-5.1) mmol/L Chloride (98-107) mmol/L Carbon Dioxide (22-30) mmol/L Anion Gap mmol/L BUN (9-20) mg/dL Creatinine (0.66-1.25) mg/dL Est GFR (MDRD) Af Amer (>60 ml/min/1.73 sqM) Est GFR (MDRD) Non-Af (>60 ml/min/1.73 sqM) Glucose (74-99) mg/dL Plasma Lactic Acid Silvino (0.7-2.0) mmol/L Calcium (8.4-10.2) mg/dL Total Bilirubin (0.2-1.3) mg/dL AST (17-59) U/L ALT (21-72) U/L Alkaline Phosphatase (38-126) U/L Total Creatine Kinase (55-170) U/L CK-MB (CK-2) (0.0-2.4) ng/mL CK-MB (CK-2) Rel Index Troponin I (0.000-0.034) ng/mL NT-Pro-B Natriuret Pep 1320 pg/mL Total Protein (6.3-8.2) g/dL Albumin (3.5-5.0) g/dL Urine Color Yellow Urine Appearance Clear (Clear) Urine pH 5.5 (5.0-8.0) Ur Specific [place] 1.010 (1.001-1.035) Urine Protein 1+ H (Negative) Urine Glucose (UA) Negative (Negative) Urine Ketones Negative (Negative) Urine Blood Trace H (Negative) Urine Nitrite Negative (Negative) Urine Bilirubin Negative (Negative) Urine Urobilinogen 2.0 (<2.0) mg/dL Ur Leukocyte Esterase Negative (Negative) Urine RBC 2 (0-5) /hpf Urine WBC 1 (0-5) /hpf Ur Squamous Epith Cells 1 (0-4) /hpf Urine Bacteria Rare H (None) /hpf Hyaline Casts 42 H (0-2) /lpf Urine Mucus Few H (None) /hpf Influenza Type A RNA (Not Detectd) Influenza Type B (PCR) (Not Detectd) - Radiology Data Radiology results: image reviewed (Chest x-ray shows no acute process) Disposition Clinical Impression: Chronic obstructive pulmonary disease with acute exacerbation Disposition: ADMITTED IP TO THIS HOSP Referrals: Rangel Colin DO [Primary Care Provider] - 1-2 days Decision Time: 16:18
[2017-09-23] MEDS ORDERED: methylPREDNISolone SOD SUCCI 125 MG/2 ML VIAL IV STA (14:46)
[2017-09-23 15:06] LABS: Anisocytosis Slight; Basophils # (A) 0.1 k/uL (0-0.2); Basophils % (A) 1 %; Eosinophils # (A) 0.1 k/uL (0-0.7); Eosinophils % (A) 1 %; HCT 45.5 % (39.0-53.0); HGB 14.8 gm/dL (13.0-17.5); Lymphocytes # (A) 1.5 k/uL (1.0-4.8); Lymphocytes % (A) 18 %; MCH 32.2 pg (25.0-35.0); MCHC 32.5 g/dL (31.0-37.0); MCV 99.1 fL (80.0-100.0); Macrocytosis Slight; Mean Platelet Volume 7.6; Monocytes # (A) 0.7 k/uL (0-1.0); Monocytes % (A) 7 %; Neutrophils # (A) 6.2 k/uL (1.3-7.7); Neutrophils % (A) 70 %; Platelet Count 123 k/uL (150-450); RDW 17.2 % (11.5-15.5); WBC 8.8 k/uL (3.8-10.6)
--- NOTE | 2017-09-23 15:09 | XR ---
EXAMINATION TYPE: XR chest 2V DATE OF EXAM: 09/23/2017 COMPARISON: 07/12/2017 HISTORY: Shortness of breath and fever TECHNIQUE: Frontal and lateral views of the chest are obtained. FINDINGS: There is no focal air space opacity, pleural effusion, or pneumothorax seen. Cardiac silho uette is mildly enlarged with postoperative changes of the chest. Surgical clips also overlie the rig ht upper lung. The osseous structures are intact. Minimal multilevel degenerative changes of the th oracic spine are noted. IMPRESSION: No acute cardiopulmonary process.
[2017-09-23 15:14] LABS: Partial Thromboplastin Time 38.1 sec (22.0-30.0)
[2017-09-23 15:20] LABS: ALT 28 U/L (21-72); AST 49 U/L (17-59); Albumin 4.2 g/dL (3.5-5.0); Alkaline Phosphatase 221 U/L (38-126); Anion Gap 10 mmol/L; Blood Urea Nitrogen 18 mg/dL (9-20); Calcium 9.3 mg/dL (8.4-10.2); Carbon Dioxide 34 mmol/L (22-30); Chloride 99 mmol/L (98-107); Glucose 113 mg/dL (74-99); Potassium 5.3 mmol/L (3.5-5.1); Sodium 143 mmol/L (137-145); Total Bilirubin 0.8 mg/dL (0.2-1.3); Total Protein 7.8 g/dL (6.3-8.2)
[2017-09-23 15:24] LABS: INR 1.6 (<1.2); Prothrombin Time 14.4 sec (9.0-12.0)
[2017-09-23 15:28] LABS: Creatine Kinase 51 U/L (55-170)
[2017-09-23 15:43] LABS: Creatine Kinase MB 0.3 ng/mL (0.0-2.4); Troponin I <0.012 ng/mL (0.000-0.034)
[2017-09-23 15:45] LABS: Appearance,Urine Clear (Clear); Bacteria,Urine Rare /hpf; Bilirubin,Urine Negative (Negative); Blood,Urine Trace (Negative); Color,Urine Yellow; Glucose,Urine (UA) Negative (Negative); Hyaline Casts,Urine 42 /lpf (0-2); Ketones,Urine Negative (Negative); Leukocyte Esterase,Urine Negative (Negative); Mucus,Urine Few /hpf; Nitrite,Urine Negative (Negative); PH, Urine 5.5 (5.0-8.0); Protein,Urine 1+ (Negative); RBC,Urine 2 /hpf (0-5); Squamous Epithelial Cell,Urine 1 /hpf (0-4); WBC,Urine 1 /hpf (0-5)
[2017-09-23] MEDS ORDERED: IPRATROPIUM-ALBUTEROL 3 ML NEB INHALATION PRN (16:18)
[2017-09-23] MEDS ORDERED: LEVOFLOXACIN 750MG-D5W PMX 750 MG in DEXTROSE/WATER 1 150ML.BAG IVPB STA (16:18)
[2017-09-23] MEDS: IPRATROPIUM-ALBUTEROL 3 ML NEB INHALATION SCH (18:21)
--- NOTE | 2017-09-23 19:35 | P.HPIM ---
History of Present Illness 67-year-old male presenting to the emergency Department with cough and difficulty in breathing. Onset of symptoms was several days ago. Cough has been productive yellowish sputum sputum. His symptoms started on Tuesday. Patient does have history of chronic dyspnea associated with COPD. No leg swelling. No chest pain. She denied any orthopnea PND. Patient does have COPD uses alternate nighttime. Continues to smoke and he is trying to quit smoking. Patient is on Lasix, does have moderate pulmonary hypertension possible gastritis function his ejection fraction is essentially within normal limits does have history of atrial fibrillation for which patient is on Coumadin. INR is suppurative since patient is on systemic strides and not changing the dose of Coumadin. Patient is also on levofloxacin which will be switched to azithromycin as there is significant interaction between levofloxacin, Coumadin and Solu-Medrol. Review of Systems REVIEW OF SYSTEMS: CONSTITUTIONAL: No fever, no malaise, no fatigue. HEENT: No recent visual problems or hearing problems. Denied any sore throat. CARDIOVASCULAR: No chest pain, orthopnea, PND, no palpitations, no syncope. PULMONARY: As mentioned in HPI GASTROINTESTINAL: No diarrhea, no nausea, no vomiting, no abdominal pain. Normoactive bowel sounds. NEUROLOGICAL: No headaches, no weakness, no numbness. HEMATOLOGICAL: Denies any bleeding or petechiae. GENITOURINARY: Denies any burning micturition, frequency, or urgency. MUSCULOSKELETAL/RHEUMATOLOGICAL: Denies any joint pain, swelling, or any muscle pain. ENDOCRINE: Denies any polyuria or polydipsia. The rest of the 14-point review of systems is negative. Past Medical History Past Medical History: Atrial Fibrillation, Atrial Flutter, Coronary Artery Disease (CAD), Cancer, Chest Pain / Angina, Heart Failure, COPD, Deep Vein Thrombosis (DVT), Eye Disorder, GERD/Reflux, GI Bleed, Hyperlipidemia, Hypertension, Memory Impairment, Myocardial Infarction (VT), Pneumonia Additional Past Medical History / Comment(s): COPD with a baseline FEV1 of 40% of predicted, coronary artery disease stable dissection of the descending aorta, , hypertension, hyperlipidemia, chronic atrial fibrillation and is anticoagulated with warfarin, Aortic valve replacement with a bioprosthetic valve, chronic stable aortic dissection as described in the HPI being monitored ; chronic atrial fibrillation, moderate degree of pulmonary hypertension based on previous echocardiograms, previous pneumonia 2008 and 2014, prostate cancer with prostatectomy, DVT R lower leg, macular degeneration ,left arm fracture, chronic tinnitus in both ears, 02 3 liters at hs, gastritis identified on previous endoscopy, previous enterococcal urine checked infection, liver cirrhosis related to history of alcoholism. Last Myocardial Infarction Date:: unsure, had heart stent placed 4 months ago History of Any Multi-Drug Resistant Organisms: None Reported Date of last positivie culture/infection: None MDRO Source:: None Past Surgical History: Cardiac Valve Replacement, Heart Catheterization, Heart Catheterization With Stent, Hernia Repair, Orthopedic Surgery, Prostate Surgery Additional Past Surgical History / Comment(s): Aortic valve replacement, prostatectomy, right inguinal hernia repair 2, bilateral knee arthroscopy, colonoscopy, EGD, polypectomy, right leg varicose vein stripping, removal of a blood clot from the right lower extremity, neck surgery and removal of shrapnel' s from the right shoulder Past Anesthesia/Blood Transfusion Reactions: No Reported Reaction Date of Last Stent Placement:: UNK Past Psychological History: No Psychological Hx Reported Smoking Status: Current every day smoker Past Alcohol Use History: Daily Past Drug Use History: None Reported - Past Family History Mother Family Medical History: Diabetes Mellitus Additional Family Medical History / Comment(s): Mother at age 74 from diabetic complications. Father Family Medical History: Congestive Heart Failure (CHF) Additional Family Medical History / Comment(s): Father at age 91 yrs. Medications and Allergies Home Medications Medication Instructions Recorded Confirmed Type Diltiazem HCl [Diltiazem 24Hr ER] 240 mg PO DAILY 08/23/14 09/23/17 History Metoprolol Tartrate [Lopressor] 100 mg PO BID 08/23/14 09/23/17 History Potassium Chloride [Klor-Con 20] 20 meq PO BID 08/23/14 09/23/17 History Folic Acid 1 mg PO DAILY #1 tablet 09/10/14 09/23/17 Rx Budesonide-Formot 160-4.5 Mcg 2 puff INHALATION RT-BID 10/07/15 09/23/17 History [Symbicort 160-4.5 Mcg Inhaler] Thiamine [Vitamin B-1] 100 mg PO DAILY 11/18/15 09/23/17 History Tiotropium 18 Mcg/Puff [Spiriva] 1 cap INHALATION RT-DAILY 03/19/16 09/23/17 History Pregabalin [Lyrica] 50 mg PO BID 08/11/16 09/23/17 History Atorvastatin [Lipitor] 40 mg PO HS 01/09/17 09/23/17 History Spironolactone [Aldactone] 25 mg PO DAILY 01/09/17 09/23/17 History Ferrous Sulfate [Iron (65 MG 325 mg PO DAILY #30 tab 03/06/17 09/23/17 Rx Elemental)] Albuterol Nebulized [Ventolin 2.5 mg INHALATION RT-Q4H 09/23/17 09/23/17 History Nebulized] Furosemide [Lasix] 40 mg PO HS 09/23/17 09/23/17 History Furosemide [Lasix] 80 mg PO QAM 09/23/17 09/23/17 History Pantoprazole Sodium 40 mg PO DAILY 09/23/17 09/23/17 History Pantoprazole [Protonix] 40 mg PO DAILY 09/23/17 09/23/17 History Vit C/E/Zn/Coppr/Lutein/Zeaxan 1 cap PO DAILY 09/23/17 09/23/17 History [Preservision Areds 2 Softgel] Warfarin Sodium 4 mg PO SUTUTH 09/23/17 09/23/17 History Warfarin Sodium 6 mg PO MOWEFRSA 09/23/17 09/23/17 History Allergies Allergy/AdvReac Type Severity Reaction Status Date / Time No Known Allergies Allergy Verified 09/23/17 15:16 Physical Exam Vitals: Vital Signs Temp Pulse Resp BP Pulse Ox 09/23/17 18:30 63 18 09/23/17 18:24 68 18 94 L 09/23/17 17:34 99.5 F 60 22 104/52 94 L 09/23/17 15:33 86 22 126/86 91 L 09/23/17 14:48 90 09/23/17 14:38 88 09/23/17 14:15 100.5 F H 81 20 67/41 84 L Intake and Output 09/23/17 09/23/17 09/23/17 06:59 14:59 22:59 Other: Weight 104.326 kg Patient Weight 09/24/17 06:59 Weight 104.326 kg PHYSICAL EXAMINATION: GENERAL: The patient is alert and oriented x3, not in any acute distress. Well developed, well nourished. HEENT: Pupils are round and equally reacting to light. EOMI. No scleral icterus. No conjunctival pallor. Normocephalic, atraumatic. No pharyngeal erythema. No thyromegaly. CARDIOVASCULAR: S1 and S2 present. No murmurs, rubs, or gallops. PULMONARY: Decreased air entry into bilateral lung melendrez with expiratory wheezing was appreciated rhonchus breath sounds. ABDOMEN: Soft, nontender, nondistended, normoactive bowel sounds. No palpable organomegaly. MUSCULOSKELETAL: No joint swelling or deformity. EXTREMITIES: No cyanosis, clubbing, or pedal edema. NEUROLOGICAL: Gross neurological examination did not reveal any focal deficits. SKIN: No rashes. Results CBC & Chem 7: 09/23/17 14:40 09/23/17 14:40 Labs: Abnormal Lab Results - Last 24 Hours (Table) 09/23/17 09/23/17 09/23/17 Range/Units 14:40 14:40 14:40 RDW 17.2 H (11.5-15.5) % Plt Count 123 L (150-450) k/uL PT (9.0-12.0) sec INR (<1.2) APTT (22.0-30.0) sec Potassium 5.3 H (3.5-5.1) mmol/L Carbon Dioxide 34 H (22-30) mmol/L Glucose 113 H (74-99) mg/dL Alkaline Phosphatase 221 H (38-126) U/L Total Creatine Kinase 51 L (55-170) U/L Urine Protein (Negative) Urine Blood (Negative) Urine Bacteria (None) /hpf Hyaline Casts (0-2) /lpf Urine Mucus (None) /hpf 09/23/17 09/23/17 Range/Units 14:40 15:25 RDW (11.5-15.5) % Plt Count (150-450) k/uL PT 14.4 H (9.0-12.0) sec INR 1.6 H (<1.2) APTT 38.1 H (22.0-30.0) sec Potassium (3.5-5.1) mmol/L Carbon Dioxide (22-30) mmol/L Glucose (74-99) mg/dL Alkaline Phosphatase (38-126) U/L Total Creatine Kinase (55-170) U/L Urine Protein 1+ H (Negative) Urine Blood Trace H (Negative) Urine Bacteria Rare H (None) /hpf Hyaline Casts 42 H (0-2) /lpf Urine Mucus Few H (None) /hpf Assessment and Plan Plan: -Acute on chronic hypercapnic respiratory failure: Secondary to COPD exacerbation. Patient is on cystic starts in her usual treatments and medics will be [facility] because of levofloxacin interaction with Coumadin. -Atrial fibrillation rate controlled patient is on metoprolol and Cardizem which will be continued patient will continue on same dose of Coumadin INR will be repeated tomorrow. Patient has valvular A. fib and chronic A. fib -Congestive heart failure chronic diastolic dysfunction without any acute examination patient's home dose of Lasix will be continued -Moderate pulmonary hypertension - coronary artery disease with previous coronary interventions and stenting -aortic valve replacement, history of and the patient has a bioprosthetic aortic valve in place -hypertension - hyperlipidemia - prostate cancer with a prostatectomy - macular degeneration - remote history of a right lower extremity DVT
[2017-09-23 20:45] LABS: Glucose,Whole Blood 154 mg/dL (75-99)
[2017-09-23] MEDS: SYMBICORT 160-4.5 MCG INHALER INHALATION SCH (20:55)
[2017-09-23] MEDS: POTASSIUM CHLORIDE ER 20 MEQ TAB.ER PO SCH (21:00)
[2017-09-23] MEDS: methylPREDNISolone SOD SUCCI 125 MG/2 ML VIAL IV SCH (21:06)
[2017-09-23] MEDS: FUROSEMIDE 40 MG TAB PO SCH (21:08)
[2017-09-23] MEDS: DOXYCYCLINE 50 MG CAP PO SCH (21:08)
[2017-09-23] MEDS: PREGABALIN 50 MG CAP PO SCH (21:08)
[2017-09-23] MEDS: METOPROLOL TARTRATE 50 MG TAB PO SCH (21:08)
[2017-09-23] MEDS: WARFARIN 3 MG TAB PO SCH (21:08)
[2017-09-23] MEDS: ATORVASTATIN 40 MG TAB PO SCH (22:22)
[2017-09-23] MEDS: INSULIN ASPART 100 UNIT/ML 1 ML 10 ML VIAL SQ SCH (22:23)
[2017-09-24] MEDS: methylPREDNISolone SOD SUCCI 125 MG/2 ML VIAL IV SCH ×4 (00:29→17:32)
[2017-09-24 02:38] LABS: Hemoglobin A1C 6.1 % (4.0-6.0)
[2017-09-24] MEDS ORDERED: INSULIN ASPART 100 UNIT/ML 1 ML 10 ML VIAL SQ SCH (07:30)
[2017-09-24 07:32] LABS: Glucose,Whole Blood 178 mg/dL (75-99)
[2017-09-24] MEDS: SYMBICORT 160-4.5 MCG INHALER INHALATION SCH ×2 (08:24→20:35)
[2017-09-24] MEDS: IPRATROPIUM-ALBUTEROL 3 ML NEB INHALATION SCH ×4 (08:24→20:35)
[2017-09-24] MEDS: DILTIAZEM CD 240 MG CAP.ER.24H PO SCH (08:27)
[2017-09-24] MEDS: PREGABALIN 50 MG CAP PO SCH ×2 (08:27→21:57)
[2017-09-24] MEDS: CLOPIDOGREL 75 MG TAB PO SCH (08:27)
[2017-09-24] MEDS: DOXYCYCLINE 50 MG CAP PO SCH ×2 (08:27→21:57)
[2017-09-24] MEDS: FUROSEMIDE 80 MG TAB PO SCH (08:27)
[2017-09-24] MEDS: PANTOPRAZOLE 40 MG TABLET PO SCH (08:28)
[2017-09-24] MEDS: METOPROLOL TARTRATE 50 MG TAB PO SCH ×2 (08:28→21:57)
[2017-09-24] MEDS: SPIRONOLACTONE 25 MG TAB PO SCH (08:29)
[2017-09-24] MEDS: INSULIN ASPART 100 UNIT/ML 1 ML 10 ML VIAL SQ SCH ×4 (08:30→21:57)
--- NOTE | 2017-09-24 09:02 | P.PN ---
Subjective 58-year-old gentleman with history of COPD is admitted for COPD exacerbation patient has improvement compared to yesterday but still wheezing. Constitutional: Denied any fatigue denied any fever. Cardio vascular: denied any chest pain, palpitations Gastrointestinal denied any nausea vomiting Pulmonary: As mentioned in HPI Neurologic denied any new focal deficits Objective - Vital Signs Vital signs: Vital Signs Temp 97.6 F 09/24/17 07:00 Pulse 96 09/24/17 08:41 Resp 18 09/24/17 07:00 BP 119/78 09/24/17 07:00 Pulse Ox 94 L 09/24/17 08:27 Intake & Output 09/23/17 09/24/17 09/24/17 18:59 06:59 18:59 Weight 104.326 kg 104 kg Other: Voiding Method Toilet # Voids 1 - Exam PHYSICAL EXAMINATION: GENERAL: The patient is alert and oriented x3, not in any acute distress. Well developed, well nourished. HEENT: Pupils are round and equally reacting to light. EOMI. No scleral icterus. No conjunctival pallor. Normocephalic, atraumatic. No pharyngeal erythema. No thyromegaly. CARDIOVASCULAR: S1 and S2 present. No murmurs, rubs, or gallops. PULMONARY: Decreased air entry into bilateral lung melendrez with expiratory wheezing was appreciated rhonchus breath sounds. ABDOMEN: Soft, nontender, nondistended, normoactive bowel sounds. No palpable organomegaly. MUSCULOSKELETAL: No joint swelling or deformity. EXTREMITIES: No cyanosis, clubbing, or pedal edema. NEUROLOGICAL: Gross neurological examination did not reveal any focal deficits. SKIN: No rashes. - Labs CBC & Chem 7: 09/23/17 14:40 09/23/17 14:40 Labs: Abnormal Lab Results - Last 24 Hours (Table) 09/23/17 09/23/17 09/23/17 Range/Units 14:40 14:40 14:40 RDW 17.2 H (11.5-15.5) % Plt Count 123 L (150-450) k/uL PT (9.0-12.0) sec INR (<1.2) APTT (22.0-30.0) sec Potassium 5.3 H (3.5-5.1) mmol/L Carbon Dioxide 34 H (22-30) mmol/L Glucose 113 H (74-99) mg/dL POC Glucose (mg/dL) (75-99) mg/dL Hemoglobin A1c (4.0-6.0) % Alkaline Phosphatase 221 H (38-126) U/L Total Creatine Kinase 51 L (55-170) U/L Urine Protein (Negative) Urine Blood (Negative) Urine Bacteria (None) /hpf Hyaline Casts (0-2) /lpf Urine Mucus (None) /hpf 09/23/17 09/23/17 09/23/17 Range/Units 14:40 14:40 15:25 RDW (11.5-15.5) % Plt Count (150-450) k/uL PT 14.4 H (9.0-12.0) sec INR 1.6 H (<1.2) APTT 38.1 H (22.0-30.0) sec Potassium (3.5-5.1) mmol/L Carbon Dioxide (22-30) mmol/L Glucose (74-99) mg/dL POC Glucose (mg/dL) (75-99) mg/dL Hemoglobin A1c 6.1 H (4.0-6.0) % Alkaline Phosphatase (38-126) U/L Total Creatine Kinase (55-170) U/L Urine Protein 1+ H (Negative) Urine Blood Trace H (Negative) Urine Bacteria Rare H (None) /hpf Hyaline Casts 42 H (0-2) /lpf Urine Mucus Few H (None) /hpf 09/23/17 09/24/17 Range/Units 20:43 07:29 RDW (11.5-15.5) % Plt Count (150-450) k/uL PT (9.0-12.0) sec INR (<1.2) APTT (22.0-30.0) sec Potassium (3.5-5.1) mmol/L Carbon Dioxide (22-30) mmol/L Glucose (74-99) mg/dL POC Glucose (mg/dL) 154 H 178 H (75-99) mg/dL Hemoglobin A1c (4.0-6.0) % Alkaline Phosphatase (38-126) U/L Total Creatine Kinase (55-170) U/L Urine Protein (Negative) Urine Blood (Negative) Urine Bacteria (None) /hpf Hyaline Casts (0-2) /lpf Urine Mucus (None) /hpf Microbiology - Last 24 Hours (Table) 09/23/17 15:25 Urine Culture - Preliminary Urine,Voided Assessment and Plan Plan: -Acute on chronic hypercapnic respiratory failure: Secondary to COPD exacerbation. Patient is on cystic starts in her usual treatments and medics will be switched to doxycycline clinic because of levofloxacin interaction with Coumadin. -Atrial fibrillation rate controlled patient is on metoprolol and Cardizem which will be continued patient will continue on same dose of Coumadin INR will be repeated tomorrow. Patient has valvular A. fib and chronic A. fib -Congestive heart failure chronic diastolic dysfunction without any acute examination patient's home dose of Lasix will be continued -Hyperkalemia: Repeat potassium again today patient only had mild hyperkalemia -Moderate pulmonary hypertension - coronary artery disease with previous coronary interventions and stenting -aortic valve replacement, history of and the patient has a bioprosthetic aortic valve in place -hypertension - hyperlipidemia - prostate cancer with a prostatectomy - macular degeneration - remote history of a right lower extremity DVT
[2017-09-24 09:03] LABS: Albumin 4.3 g/dL (3.5-5.0); Anion Gap 16 mmol/L; Calcium 8.9 mg/dL (8.4-10.2); Carbon Dioxide 20 mmol/L (22-30); Chloride 104 mmol/L (98-107); Glucose 226 mg/dL (74-99); Sodium 140 mmol/L (137-145); Total Bilirubin 0.8 mg/dL (0.2-1.3); Total Protein 8.1 g/dL (6.3-8.2)
[2017-09-24 09:09] LABS: ALT 31 U/L (21-72); AST 45 U/L (17-59); Blood Urea Nitrogen 27 mg/dL (9-20); Potassium 4.7 mmol/L (3.5-5.1)
[2017-09-24 09:10] LABS: Alkaline Phosphatase 216 U/L (38-126)
[2017-09-24 11:59] LABS: Glucose,Whole Blood 233 mg/dL (75-99)
[2017-09-24] MEDS: THIAMINE 100 MG TAB PO SCH (12:47)
[2017-09-24] MEDS: FOLIC ACID 1 MG TAB PO SCH (12:47)
[2017-09-24] MEDS: POTASSIUM CHLORIDE ER 20 MEQ TAB.ER PO SCH ×2 (12:48→21:57)
--- NOTE | 2017-09-24 13:01 | P.CNPUL ---
History of Present Illness Consult date: 09/24/17 Reason for consult: dyspnea Chief complaint: Shortness of breath, cough, congestion History of present illness: This is a very pleasant 67-year-old gentleman who follows with Carey Morin and Dr. Colin as his primary care physician. He is also seen mainly at the [facility] system. He has a history of chronic obstructive pulmonary disease with a baseline FEV1 value 40% of predicted, coronary artery disease, stable dissection of the descending aorta, chronic and ongoing tobacco dependence, hypertension, hyperlipidemia, chronic atrial fibrillation anticoagulant with warfarin. He was last seen here in July 2017. He's had multiple admissions for COPD exacerbations and congestive heart failure. He presented here to the emergency room on 09/23/2017 with complaints of increasing shortness of breath, cough and congestion. He states his son and grandson both have been sick as well. His influenza screen was negative. T- max 100.5. He was 84% on room air. He was somewhat hypotensive. Chest x-ray shows chronic changes but no acute pulmonary process. He is seen today in consult patient on the regular medical floor. He is awake and alert in no acute distress. He is breathing easier today as compared to yesterday. He is maintaining good O2 saturations in the mid 90s on 3 L/m per nasal cannula. He' s been afebrile. Hemodynamically stable. No leukocytosis. Creatinine 1.04. Urine culture is pending. Review of Systems Eyes: bilateral decreased vision, denies blurred vision Ears: bilateral: decreased hearing Cardiovascular: Reports dyspnea on exertion, Reports irregular heart beat, Reports shortness of breath Respiratory: Reports congestion, Reports cough, Reports dyspnea, Reports wheezing Gastrointestinal: Denies abdominal pain, Denies diarrhea, Denies nausea, Denies vomiting Genitourinary: Reports as per HPI Musculoskeletal: Reports low back pain Integumentary: Reports dryness Neurological: Denies numbness, Denies weakness Psychiatric: Denies anxiety, Denies depression Endocrine: Denies fatigue, Denies weight change Past Medical History Past Medical History: Atrial Fibrillation, Atrial Flutter, Coronary Artery Disease (CAD), Cancer, Chest Pain / Angina, Heart Failure, COPD, Deep Vein Thrombosis (DVT), Eye Disorder, GERD/Reflux, GI Bleed, Hyperlipidemia, Hypertension, Memory Impairment, Myocardial Infarction ([place]), Pneumonia Additional Past Medical History / Comment(s): COPD with a baseline FEV1 of 40% of predicted, coronary artery disease stable dissection of the descending aorta, , hypertension, hyperlipidemia, chronic atrial fibrillation and is anticoagulated with warfarin, Aortic valve replacement with a bioprosthetic valve, chronic stable aortic dissection as described in the HPI being monitored ; chronic atrial fibrillation, moderate degree of pulmonary hypertension based on previous echocardiograms, previous pneumonia 2008 and 2014, prostate cancer with prostatectomy, DVT R lower leg, macular degeneration ,left arm fracture, chronic tinnitus in both ears, 02 3 liters at hs, gastritis identified on previous endoscopy, previous enterococcal urine checked infection, liver cirrhosis related to history of alcoholism. Last Myocardial Infarction Date:: unsure History of Any Multi-Drug Resistant Organisms: None Reported Date of last positivie culture/infection: None MDRO Source:: None Past Surgical History: Cardiac Valve Replacement, Heart Catheterization, Heart Catheterization With Stent, Hernia Repair, Orthopedic Surgery, Prostate Surgery Additional Past Surgical History / Comment(s): Aortic valve replacement, prostatectomy, right inguinal hernia repair 2, bilateral knee arthroscopy, colonoscopy, EGD, polypectomy, right leg varicose vein stripping, removal of a blood clot from the right lower extremity, neck surgery and removal of shrapnel' s from the right shoulder Past Anesthesia/Blood Transfusion Reactions: No Reported Reaction Date of Last Stent Placement:: UNK Smoking Status: Current every day smoker - Past Family History Mother Family Medical History: Diabetes Mellitus Additional Family Medical History / Comment(s): Mother at age 74 from diabetic complications. Father Family Medical History: Congestive Heart Failure (CHF) Additional Family Medical History / Comment(s): Father at age 91 yrs. Medications and Allergies Home Medications Medication Instructions Recorded Confirmed Type Diltiazem HCl [Diltiazem 24Hr ER] 240 mg PO DAILY 08/23/14 09/23/17 History Metoprolol Tartrate [Lopressor] 100 mg PO BID 08/23/14 09/23/17 History Potassium Chloride [Klor-Con 20] 20 meq PO BID 08/23/14 09/23/17 History Folic Acid 1 mg PO DAILY #1 tablet 09/10/14 09/23/17 Rx Budesonide-Formot 160-4.5 Mcg 2 puff INHALATION RT-BID 10/07/15 09/23/17 History [Symbicort 160-4.5 Mcg Inhaler] Thiamine [Vitamin B-1] 100 mg PO DAILY 11/18/15 09/23/17 History Tiotropium 18 Mcg/Puff [Spiriva] 1 cap INHALATION RT-DAILY 03/19/16 09/23/17 History Pregabalin [Lyrica] 50 mg PO BID 08/11/16 09/23/17 History Atorvastatin [Lipitor] 40 mg PO HS 01/09/17 09/23/17 History Spironolactone [Aldactone] 25 mg PO DAILY 01/09/17 09/23/17 History Ferrous Sulfate [Iron (65 MG 325 mg PO DAILY #30 tab 03/06/17 09/23/17 Rx Elemental)] Albuterol Nebulized [Ventolin 2.5 mg INHALATION RT-Q4H 09/23/17 09/23/17 History Nebulized] Furosemide [Lasix] 40 mg PO HS 09/23/17 09/23/17 History Furosemide [Lasix] 80 mg PO QAM 09/23/17 09/23/17 History Pantoprazole Sodium 40 mg PO DAILY 09/23/17 09/23/17 History Pantoprazole [Protonix] 40 mg PO DAILY 09/23/17 09/23/17 History Vit C/E/Zn/Coppr/Lutein/Zeaxan 1 cap PO DAILY 09/23/17 09/23/17 History [Preservision Areds 2 Softgel] Warfarin Sodium 4 mg PO SUTUTH 09/23/17 09/23/17 History Warfarin Sodium 6 mg PO MOWEFRSA 09/23/17 09/23/17 History Allergies Allergy/AdvReac Type Severity Reaction Status Date / Time No Known Allergies Allergy Verified 09/23/17 15:16 Physical Exam Vitals: Vital Signs Temp Pulse Pulse Resp BP BP Pulse Ox 09/24/17 12:20 94 09/24/17 12:11 88 09/24/17 08:41 96 09/24/17 08:27 100 94 L 09/24/17 08:00 84 18 09/24/17 07:00 97.6 F 84 18 119/78 91 L 09/23/17 21:18 77 22 106/58 97 09/23/17 21:15 97.2 F L 72 24 110/61 95 09/23/17 21:09 83 09/23/17 20:56 72 09/23/17 18:30 63 18 0223/18 18:24 68 18 94 L 09/23/17 17:34 99.5 F 60 22 104/52 94 L 09/23/17 15:33 86 22 126/86 91 L 09/23/17 14:48 90 09/23/17 14:38 88 09/23/17 14:15 100.5 F H 81 20 67/41 84 L Intake and Output 09/23/17 09/24/17 09/24/17 22:59 06:59 14:59 Other: Voiding Method Toilet Toilet # Voids 1 1 2 Weight 104 kg GENERAL EXAM: Alert, active, comfortable in no apparent distress. HEAD: Normocephalic. EYES: Normal reaction of pupils, equal size. NOSE: Clear with pink turbinates. THROAT: No erythema or exudates. NECK: No masses, no JVD. CHEST: No chest wall deformity. LUNGS: Equal air entry with bilateral end expiratory wheeze. Diminished. CVS: S1 and S2 normal with no audible murmur, regular rhythm. ABDOMEN: No hepatosplenomegaly, normal bowel sounds, no guarding or rigidity. SPINE: No scoliosis or deformity SKIN: No rashes CENTRAL NERVOUS SYSTEM: No focal deficits, tone is normal in all 4 extremities. EXTREMITIES: There is no peripheral edema. No clubbing, no cyanosis. Peripheral pulses are intact. Results - Laboratory Findings CBC and BMP: 09/23/17 14:40 09/24/17 08:35 PT/INR, D-dimer PT 14.4 sec (9.0-12.0) H 09/23/17 14:40 INR 1.6 (<1.2) H 09/23/17 14:40 Abnormal lab findings: Abnormal Labs 09/23/17 09/23/17 09/23/17 14:40 14:40 14:40 RDW 17.2 H Plt Count 123 L PT INR APTT Potassium 5.3 H Carbon Dioxide 34 H BUN Glucose 113 H POC Glucose (mg/dL) Hemoglobin A1c Alkaline Phosphatase 221 H Total Creatine Kinase 51 L Urine Protein Urine Blood Urine Bacteria Hyaline Casts Urine Mucus 09/23/17 09/23/17 09/23/17 14:40 14:40 15:25 RDW Plt Count PT 14.4 H INR 1.6 H APTT 38.1 H Potassium Carbon Dioxide BUN Glucose POC Glucose (mg/dL) Hemoglobin A1c 6.1 H Alkaline Phosphatase Total Creatine Kinase Urine Protein 1+ H Urine Blood Trace H Urine Bacteria Rare H Hyaline Casts 42 H Urine Mucus Few H 09/23/17 09/24/17 09/24/17 20:43 07:29 08:35 RDW Plt Count PT INR APTT Potassium Carbon Dioxide 20 L BUN 27 H Glucose 226 H POC Glucose (mg/dL) 154 H 178 H Hemoglobin A1c Alkaline Phosphatase 216 H Total Creatine Kinase Urine Protein Urine Blood Urine Bacteria Hyaline Casts Urine Mucus 09/24/17 11:39 RDW Plt Count PT INR APTT Potassium Carbon Dioxide BUN Glucose POC Glucose (mg/dL) 233 H Hemoglobin A1c Alkaline Phosphatase Total Creatine Kinase Urine Protein Urine Blood Urine Bacteria Hyaline Casts Urine Mucus - Diagnostic Findings Chest x-ray: image reviewed Assessment and Plan Assessment: Impression: #1 Acute on chronic hypoxic respiratory failure secondary to an acute exacerbation of chronic obstructive pulmonary disease, complicated by purulent tracheobronchitis. #2 Acute exacerbation of chronic obstructive pulmonary disease. Oxygen dependent. FEV1 value of 40% of predicted. #3 Chronic and ongoing tobacco dependence. #4 History of stable dissection of descending aorta. #5 Hypertension. #6 Hyperlipidemia. #7 Chronic atrial fibrillation, anticoagulant with warfarin. #8 Aortic valve replacement with a bioprosthetic valve. #9 History of right lower extremity DVT. #10 Moderate pulmonary hypertension. #11 Prostate cancer with prostatectomy. #12 Macular degeneration. #13 Previous enterococcal urinary tract infection. 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 #15 Coronary artery disease with previous stent placement. Plan: The patient was seen and evaluated by Dr. Downey. His chest x-ray and labs were reviewed. We'll continue with his treatment for his COPD exacerbation. No clear evidence of pneumonia. He is on IV Solu-Medrol, DuoNeb inhalations, Symbicort, empiric antibiotics in the form of doxycycline. He is again educated regarding the importance of complete smoking cessation. A NicoDerm patch will be offered. We will increase his activity as tolerated. We will continue to follow and make further recommendations based on his clinical status. I, the cosigning physician, performed a history & physical examination of the patient. Lungs sounds have bilateral end expiratory wheeze. Diminished.. Maintaining good O2 saturations in the 90s on 3 L/m per nasal cannula. I discussed the assessment and plan of care with my nurse practitioner, Eva Goodman. I attest to the above note as dictated by her. Time with Patient: Greater than 30
[2017-09-24] MEDS ORDERED: LEVOFLOXACIN 750MG-D5W PMX 750 MG in DEXTROSE/WATER 1 150ML.BAG IVPB SCH (16:00)
[2017-09-24] MEDS: WARFARIN 3 MG TAB PO SCH (17:32)
[2017-09-24 17:51] LABS: Glucose,Whole Blood 137 mg/dL (75-99)
[2017-09-24 20:30] LABS: Glucose,Whole Blood 234 mg/dL (75-99)
[2017-09-24] MEDS: ATORVASTATIN 40 MG TAB PO SCH (21:57)
[2017-09-24] MEDS: FUROSEMIDE 40 MG TAB PO SCH (21:58)
[2017-09-25] MEDS: methylPREDNISolone SOD SUCCI 125 MG/2 ML VIAL IV SCH ×4 (00:35→17:39)
[2017-09-25 07:35] LABS: Glucose,Whole Blood 164 mg/dL (75-99)
[2017-09-25 07:35] LABS: Anisocytosis Slight; HCT 46.1 % (39.0-53.0); HGB 14.5 gm/dL (13.0-17.5); MCH 31.5 pg (25.0-35.0); MCHC 31.5 g/dL (31.0-37.0); MCV 99.9 fL (80.0-100.0); Macrocytosis Slight; Mean Platelet Volume 8.1; Platelet Count 146 k/uL (150-450); RBC 4.61 m/uL (4.30-5.90); RDW 16.9 % (11.5-15.5); WBC 14.3 k/uL (3.8-10.6)
[2017-09-25] MEDS: SYMBICORT 160-4.5 MCG INHALER INHALATION SCH ×2 (07:52→19:55)
[2017-09-25] MEDS: IPRATROPIUM-ALBUTEROL 3 ML NEB INHALATION SCH ×4 (07:52→19:55)
[2017-09-25] MEDS: INSULIN ASPART 100 UNIT/ML 1 ML 10 ML VIAL SQ SCH ×4 (07:52→20:47)
[2017-09-25] MEDS: PANTOPRAZOLE 40 MG TABLET PO SCH (07:53)
[2017-09-25] MEDS: METOPROLOL TARTRATE 50 MG TAB PO SCH ×2 (07:53→20:48)
[2017-09-25] MEDS: FUROSEMIDE 80 MG TAB PO SCH (07:54)
[2017-09-25] MEDS: DOXYCYCLINE 50 MG CAP PO SCH ×2 (07:54→20:44)
[2017-09-25] MEDS: POTASSIUM CHLORIDE ER 20 MEQ TAB.ER PO SCH ×2 (07:54→20:48)
[2017-09-25] MEDS: CLOPIDOGREL 75 MG TAB PO SCH (07:54)
[2017-09-25] MEDS: DILTIAZEM CD 240 MG CAP.ER.24H PO SCH (07:54)
[2017-09-25] MEDS: SPIRONOLACTONE 25 MG TAB PO SCH (07:55)
[2017-09-25] MEDS: PREGABALIN 50 MG CAP PO SCH ×2 (08:01→20:48)
[2017-09-25 08:05] LABS: Anion Gap 15 mmol/L; Blood Urea Nitrogen 36 mg/dL (9-20); Calcium 9.4 mg/dL (8.4-10.2); Carbon Dioxide 27 mmol/L (22-30); Chloride 102 mmol/L (98-107); Glucose 171 mg/dL (74-99); Potassium 4.7 mmol/L (3.5-5.1); Sodium 144 mmol/L (137-145)
[2017-09-25] MEDS ORDERED: SODIUM CHLORIDE 0.65% NASAL SPRAY 44 ML BTL NASAL PRN (10:41)
--- NOTE | 2017-09-25 10:41 | P.PN ---
Subjective Progress Note Date: 09/25/17 Principal diagnosis: Acute on chronic hypoxic respiratory failure secondary to acute exacerbation of COPD with tracheobronchitis This is a very pleasant 67-year-old gentleman who follows with Carey Morin and Dr. Colin as his primary care physician. He is also seen mainly at the [facility] system. He has a history of chronic obstructive pulmonary disease with a baseline FEV1 value 40% of predicted, coronary artery disease, stable dissection of the descending aorta, chronic and ongoing tobacco dependence, hypertension, hyperlipidemia, chronic atrial fibrillation anticoagulant with warfarin. He was last seen here in July 2017. He's had multiple admissions for COPD exacerbations and congestive heart failure. He presented here to the emergency room on 09/23/2017 with complaints of increasing shortness of breath, cough and congestion. He states his son and grandson both have been sick as well. His influenza screen was negative. T- max 100.5. He was 84% on room air. He was somewhat hypotensive. Chest x-ray shows chronic changes but no acute pulmonary process. He is seen today in consult patient on the regular medical floor. He is awake and alert in no acute distress. He is breathing easier today as compared to yesterday. He is maintaining good O2 saturations in the mid 90s on 3 L/m per nasal cannula. He' s been afebrile. Hemodynamically stable. No leukocytosis. Creatinine 1.04. Urine culture is pending. On 09/25/2017 patient seen in follow-up. He is sitting up on the edge of the bed, in no acute distress. Remains on 3 L per nasal cannula with O2 sat at 91% . He is afebrile, vital signs are stable. He states his breathing is a little better, complaining of chest congestion, unable to bring up any phlegm. Lung sounds are generally diminished, with scattered wheezes. Also complaining of some dry nasal passages, and nasal congestion. Objective - Vital Signs Vital signs: Vital Signs Temp 98.4 F 09/25/17 07:00 Pulse 80 09/25/17 08:10 Resp 18 09/25/17 08:00 BP 142/61 09/25/17 07:00 Pulse Ox 91 L 09/25/17 07:56 Intake & Output 09/24/17 09/25/17 09/25/17 18:59 06:59 18:59 Intake Total 240 550 Balance 240 550 Weight 90 kg Intake: Oral 240 550 Other: Voiding Method Toilet Toilet Toilet # Voids 3 1 - Exam GENERAL EXAM: Alert, active, comfortable in no apparent distress. HEAD: Normocephalic. EYES: Normal reaction of pupils, equal size. NOSE: Clear with pink turbinates. THROAT: No erythema or exudates. NECK: No masses, no JVD. CHEST: No chest wall deformity. LUNGS: Equal air entry with bilateral end expiratory wheeze. Diminished. CVS: S1 and S2 normal with no audible murmur, regular rhythm. ABDOMEN: No hepatosplenomegaly, normal bowel sounds, no guarding or rigidity. SPINE: No scoliosis or deformity SKIN: No rashes CENTRAL NERVOUS SYSTEM: No focal deficits, tone is normal in all 4 extremities. EXTREMITIES: There is no peripheral edema. No clubbing, no cyanosis. Peripheral pulses are intact. - Labs CBC & Chem 7: 09/25/17 07:01 09/25/17 07:01 Labs: Abnormal Lab Results - Last 24 Hours (Table) 09/24/17 09/24/17 09/24/17 Range/Units 11:39 17:30 20:28 WBC (3.8-10.6) k/uL RDW (11.5-15.5) % Plt Count (150-450) k/uL BUN (9-20) mg/dL Glucose (74-99) mg/dL POC Glucose (mg/dL) 233 H 137 H 234 H (75-99) mg/dL 09/25/17 09/25/17 09/25/17 Range/Units 07:01 07:01 07:33 WBC 14.3 H (3.8-10.6) k/uL RDW 16.9 H (11.5-15.5) % Plt Count 146 L (150-450) k/uL BUN 36 H (9-20) mg/dL Glucose 171 H (74-99) mg/dL POC Glucose (mg/dL) 164 H (75-99) mg/dL Microbiology - Last 24 Hours (Table) 09/23/17 15:25 Urine Culture - Final Urine,Voided 09/23/17 14:40 Blood Culture - Preliminary Blood No Growth after 24 hours Assessment and Plan Plan: Assessment: #1 Acute on chronic hypoxic respiratory failure secondary to an acute exacerbation of chronic obstructive pulmonary disease, complicated by purulent tracheobronchitis. #2 Acute exacerbation of chronic obstructive pulmonary disease. Oxygen dependent. FEV1 value of 40% of predicted. #3 Chronic and ongoing tobacco dependence. #4 History of stable dissection of descending aorta. #5 Hypertension. #6 Hyperlipidemia. #7 Chronic atrial fibrillation, anticoagulant with warfarin. #8 Aortic valve replacement with a bioprosthetic valve. #9 History of right lower extremity DVT. #10 Moderate pulmonary hypertension. #11 Prostate cancer with prostatectomy. #12 Macular degeneration. #13 Previous enterococcal urinary tract infection. 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 #15 Coronary artery disease with previous stent placement. Plan: Continue current medical treatment, continue IV steroids, antibiotics, nebulized treatments. We will add Mucinex, we will add nasal spray for nasal congestion. Patient is not back to baseline yet, remains congested, and dyspneic with exertion. I performed a history & physical examination of the patient and discussed their management with my nurse practitioner, Brooke Henao. I reviewed the nurse practitioner's note and agree with the documented findings and plan of care. Lung sounds are positive for diffuse wheezes throughout the lung melendrez. The findings and the impression was discussed with the patient. I attest to the documentation by the nurse practitioner. Time with Patient: Less than 30
[2017-09-25 11:33] LABS: Glucose,Whole Blood 169 mg/dL (75-99)
[2017-09-25] MEDS: THIAMINE 100 MG TAB PO SCH (11:43)
[2017-09-25] MEDS: FOLIC ACID 1 MG TAB PO SCH (11:43)
[2017-09-25] MEDS: guaiFENesin 600 MG TABLET.ER PO SCH ×2 (11:43→20:47)
[2017-09-25 17:33] LABS: Glucose,Whole Blood 159 mg/dL (75-99)
[2017-09-25] MEDS ORDERED: WARFARIN 2 MG TAB PO SCH (18:00)
--- NOTE | 2017-09-25 18:45 | PN ---
PROGRESS NOTE DATE OF SERVICE: 09/25/2017 This 67-year-old gentleman admitted with COPD acute exacerbation is being closely monitored. No chest pain. No palpitations. No fever. EXAM: On exam, alert and oriented x3. Pulse is 96, blood pressure is 109/56, respirations 18, temperature 97.9, pulse ox 90% on 3 L. HEENT: Conjunctivae normal. NECK: No jugular venous distention. CARDIOVASCULAR: S1, S2. RESPIRATORY: Breath sounds diminished in the bases. Bilateral scattered rhonchi and crackles. ABDOMEN: Soft, nontender. No mass palpable. NERVOUS SYSTEM: No focal deficits. LAB STUDIES: WBC 14, hemoglobin 14.5. ASSESSMENT: 1. Chronic obstructive pulmonary disease exacerbation with acute on chronic hypercapnic respiratory failure. 2. Acute purulent tracheobronchitis. 3. Atrial fibrillation, rate controlled. 4. Congestive heart failure with chronic diastolic dysfunction. 5. Hyperkalemia. 6. Moderate pulmonary hypertension. 7. History of coronary artery disease, stent. 8. Aortic valve replacement, possible bioprosthetic aortic valve in place. 9. Hypertension. 10.Hyperlipidemia. 11.Prostate cancer with prostatectomy. 13.Remote history of right lower leg deep venous thrombosis. RECOMMENDATIONS AND DISCUSSION: I recommend to continue current management and symptomatic treatment. Continue with bronchodilators, continue with steroids. Continue the rest of the medications. Guarded prognosis because of multiple complex medical issues. Further recommendations to follow. See orders for details. Closely follow with Dr. Downey. MMARABELLAL / IJN: [id number] / KRISTEN
[2017-09-25 20:11] LABS: Glucose,Whole Blood 243 mg/dL (75-99)
[2017-09-25] MEDS: ATORVASTATIN 40 MG TAB PO SCH (20:44)
[2017-09-25] MEDS: FUROSEMIDE 40 MG TAB PO SCH (20:45)
[2017-09-26] MEDS: methylPREDNISolone SOD SUCCI 125 MG/2 ML VIAL IV SCH ×3 (00:13→12:57)
[2017-09-26 07:33] LABS: Glucose,Whole Blood 169 mg/dL (75-99)
[2017-09-26 08:22] VITALS: RESP 18
[2017-09-26] MEDS: INSULIN ASPART 100 UNIT/ML 1 ML 10 ML VIAL SQ SCH ×2 (08:23→12:25)
[2017-09-26] MEDS: IPRATROPIUM-ALBUTEROL 3 ML NEB INHALATION SCH ×3 (08:52→16:23)
[2017-09-26] MEDS: SYMBICORT 160-4.5 MCG INHALER INHALATION SCH (08:52)
[2017-09-26] MEDS: PANTOPRAZOLE 40 MG TABLET PO SCH (09:12)
[2017-09-26] MEDS: METOPROLOL TARTRATE 50 MG TAB PO SCH (09:12)
[2017-09-26] MEDS: guaiFENesin 600 MG TABLET.ER PO SCH (09:12)
[2017-09-26] MEDS: POTASSIUM CHLORIDE ER 20 MEQ TAB.ER PO SCH (09:12)
[2017-09-26] MEDS: FUROSEMIDE 80 MG TAB PO SCH (09:12)
[2017-09-26] MEDS: DOXYCYCLINE 50 MG CAP PO SCH (09:12)
[2017-09-26] MEDS: DILTIAZEM CD 240 MG CAP.ER.24H PO SCH (09:12)
[2017-09-26] MEDS: SPIRONOLACTONE 25 MG TAB PO SCH (09:12)
[2017-09-26] MEDS: CLOPIDOGREL 75 MG TAB PO SCH (09:12)
[2017-09-26] MEDS: PREGABALIN 50 MG CAP PO SCH (09:15)
[2017-09-26 11:59] LABS: Glucose,Whole Blood 126 mg/dL (75-99)
[2017-09-26] MEDS: FOLIC ACID 1 MG TAB PO SCH (12:57)
--- NOTE | 2017-09-26 13:44 | P.PN ---
Subjective Progress Note Date: 09/26/17 Principal diagnosis: Acute on chronic hypoxic respiratory failure secondary to acute exacerbation of COPD with tracheobronchitis This is a very pleasant 67-year-old gentleman who follows with Carey Morin and Dr. Colin as his primary care physician. He is also seen mainly at the [facility] system. He has a history of chronic obstructive pulmonary disease with a baseline FEV1 value 40% of predicted, coronary artery disease, stable dissection of the descending aorta, chronic and ongoing tobacco dependence, hypertension, hyperlipidemia, chronic atrial fibrillation anticoagulant with warfarin. He was last seen here in July 2017. He's had multiple admissions for COPD exacerbations and congestive heart failure. He presented here to the emergency room on 09/23/2017 with complaints of increasing shortness of breath, cough and congestion. He states his son and grandson both have been sick as well. His influenza screen was negative. T- max 100.5. He was 84% on room air. He was somewhat hypotensive. Chest x-ray shows chronic changes but no acute pulmonary process. He is seen today in consult patient on the regular medical floor. He is awake and alert in no acute distress. He is breathing easier today as compared to yesterday. He is maintaining good O2 saturations in the mid 90s on 3 L/m per nasal cannula. He' s been afebrile. Hemodynamically stable. No leukocytosis. Creatinine 1.04. Urine culture is pending. On 09/25/2017 patient seen in follow-up. He is sitting up on the edge of the bed, in no acute distress. Remains on 3 L per nasal cannula with O2 sat at 91% . He is afebrile, vital signs are stable. He states his breathing is a little better, complaining of chest congestion, unable to bring up any phlegm. Lung sounds are generally diminished, with scattered wheezes. Also complaining of some dry nasal passages, and nasal congestion. On 09/26/2017 patient seen in follow-up. He seen ambulating up and down the hallway, with portable oxygen, tolerating it very well. He has taken multiple walks today. Denies any distress, he reports breathing much easier. Lung sounds are positive for a few scattered rhonchi at the left lower base, no wheezing noted. He is afebrile, hemodynamically stable. No acute events overnight. Blood, and urine culture show no growth. Sputum culture is pending. Patient remains on doxycycline, nebulized treatments, IV Solu-Medrol. Requesting to go home today, and from pulmonary standpoint he is stable for discharge home today Objective - Vital Signs Vital signs: Vital Signs Temp 98.8 F 09/26/17 07:00 Pulse 82 09/26/17 12:40 Resp 18 09/26/17 08:00 BP 98/51 09/26/17 07:00 Pulse Ox 92 L 09/26/17 08:54 Intake & Output 09/25/17 09/26/17 09/26/17 18:59 06:59 18:59 Intake Total 240 990 Balance 240 990 Weight 91 kg Intake: Oral 240 990 Other: Voiding Method Toilet Toilet Toilet # Voids 3 1 - Exam GENERAL EXAM: Alert, active, comfortable in no apparent distress. HEAD: Normocephalic. EYES: Normal reaction of pupils, equal size. NOSE: Clear with pink turbinates. THROAT: No erythema or exudates. NECK: No masses, no JVD. CHEST: No chest wall deformity. LUNGS: Equal air entry with a few scattered rhonchi over left lower lobe CVS: S1 and S2 normal with no audible murmur, regular rhythm. ABDOMEN: No hepatosplenomegaly, normal bowel sounds, no guarding or rigidity. SPINE: No scoliosis or deformity SKIN: No rashes CENTRAL NERVOUS SYSTEM: No focal deficits, tone is normal in all 4 extremities. EXTREMITIES: There is no peripheral edema. No clubbing, no cyanosis. Peripheral pulses are intact. - Labs CBC & Chem 7: 09/25/17 07:01 09/25/17 07:01 Labs: Abnormal Lab Results - Last 24 Hours (Table) 09/25/17 09/25/17 09/26/17 Range/Units 17:19 20:08 07:30 POC Glucose (mg/dL) 159 H 243 H 169 H (75-99) mg/dL 09/26/17 Range/Units 11:53 POC Glucose (mg/dL) 126 H (75-99) mg/dL Microbiology - Last 24 Hours (Table) 09/25/17 07:55 Gram Stain - Preliminary Sputum Sputum Culture - Preliminary 09/23/17 14:40 Blood Culture - Preliminary Blood No Growth after 48 hours Assessment and Plan Plan: Assessment: #1 Acute on chronic hypoxic respiratory failure secondary to an acute exacerbation of chronic obstructive pulmonary disease, complicated by purulent tracheobronchitis. #2 Acute exacerbation of chronic obstructive pulmonary disease. Oxygen dependent. FEV1 value of 40% of predicted. #3 Chronic and ongoing tobacco dependence. #4 History of stable dissection of descending aorta. #5 Hypertension. #6 Hyperlipidemia. #7 Chronic atrial fibrillation, anticoagulant with warfarin. #8 Aortic valve replacement with a bioprosthetic valve. #9 History of right lower extremity DVT. #10 Moderate pulmonary hypertension. #11 Prostate cancer with prostatectomy. #12 Macular degeneration. #13 Previous enterococcal urinary tract infection. 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 #15 Coronary artery disease with previous stent placement. Plan: Patient continues to improve, vital signs are stable, denies any acute rest or distress. Ambulating in the hallway, multiple times a day, with portable oxygen , tolerating it well. From pulmonary standpoint he is stable for discharge home today on outpatient course of doxycycline, prednisone taper, and his maintenance inhalers and nebulizers. Follow-up with Dr. Downey in the office in one week I performed a history & physical examination of the patient and discussed their management with my nurse practitioner, Brooke Henao. I reviewed the nurse practitioner's note and agree with the documented findings and plan of care. Lung sounds are positive for scattered rhonchi over left lower base. The findings and the impression was discussed with the patient. I attest to the documentation by the nurse practitioner. Time with Patient: Less than 30
[2017-09-26 15:00] VITALS: BP 159/76; TEMP 98.5
[2017-09-26 16:36] VITALS: PULSE 79
[2017-09-26 17:02] LABS: Prothrombin Time 18.2 sec (9.0-12.0)
--- NOTE | 2017-09-27 01:03 | DS ---
DISCHARGE SUMMARY FINAL DIAGNOSES: 1. Chronic obstructive pulmonary disease acute exacerbation, acute on chronic hypoxic hypercapnic respiratory failure. 2. Acute purulent tracheobronchitis, atrial fibrillation, rate controlled. 3. Congestive heart failure with chronic diastolic dysfunction. 4. Hyperkalemia. 5. Moderate pulmonary hypertension. 6. History of coronary artery disease/stent. 7. Aortic valve replacement possible bioprosthetic aortic valve in place. 8. Hypertension. 9. Hyperlipidemia. 10.History of prostate cancer with prostatectomy. 11.Remote history of right lower leg DVT. DISCHARGE DISPOSITION: The patient being discharged in stable condition with guarded prognosis. Pulmonary doctor, Dr. Ramey cleared the patient. HISTORY OF PRESENT ILLNESS: This 67-year-old gentleman with past medical history, admitted with COPD and multiple other medical issues, improved medical problems. Patient treated with bronchodilators and steroids. Patient improved significantly. Dr. Ramey recommend the patient to be discharged. On exam, vital signs stable. Cardiovascular: S1, S2 muffled. Respiration: A few scattered rhonchi and crackles abdomen is soft nervous number+. Total time taken 35 minutes. DISCHARGE ADVICE: 1. Discharge diet is cardiac diet. 2. Activity limited until followup. 3. Albuterol 2.5 q.i.d. and p.r.n. 4. Lipitor 40 mg q.h.s. 5. Symbicort 160/4.5 two puffs b.i.d. 6. Diltiazem 24-40 mg. 7. History of gastroesophageal reflux disease. 8. Doxycycline 100 mg p.o. b.i.d. for 3 more days. 9. Iron sulfate 65 mg p.o. 10.Folic acid 1 mg p.o. daily. 11.Lasix 40 mg q.h.s. and 80 mg q.a.m. 12.Lopressor 100 mg p.o. b.i.d. 13.Protonix 40 mg. 14.Klor-Con 20 mEq p.o. b.i.d. 15.Prednisone taper at 30 mg daily for 4 days 20 for 4 days, 10 for four days and stop. 16.Lyrica 50 mg p.o. b.i.d. 17.Nasal spray. 18.Sodium chloride. 19.Aldactone 25 mg p.o. daily. 20.Thiamine 100 mg daily. 21.Spiriva 1 puff daily. 22.Vitamin C including zinc, copper lutein 1 capsule b.i.d. 23.Coumadin 4 mg p.o. Tuesday, Tuesday, , and 6 mg the other days. 24.Followup CBC, BMP, PT/INR in the outpatient setting. 25.Follow up with Dr. Colin in 2-3 days. 26.Follow up with Dr. Downey in the outpatient setting as well. MMODL / IJN: [id number] /
== END 2017-09-26 17:05 | disposition home or self-care (01) | DRG 190 ==
LOC: EC 13:55 → 5MS5E 16:18
PROVIDERS: ADMIT Internal Medicine; ATTEND Internal Medicine
DX: J44.1 Chronic obstructive pulmonary disease with (acute) exacerbation (principal); J96.21 Acute and chronic respiratory failure with hypoxia; I27.20 Pulmonary hypertension, unspecified; J96.22 Acute and chronic respiratory failure with hypercapnia; I50.32 Chronic diastolic (congestive) heart failure; I11.0 Hypertensive heart disease with heart failure; E78.5 Hyperlipidemia, unspecified; E87.5 Hyperkalemia; F17.200 Nicotine dependence, unspecified, uncomplicated; H35.30 Unspecified macular degeneration; I25.10 Atherosclerotic heart disease of native coronary artery without angina pectoris; I25.2 Old myocardial infarction; I48.2 Chronic atrial fibrillation; K21.9 Gastro-esophageal reflux disease without esophagitis; K70.30 Alcoholic cirrhosis of liver without ascites; Z79.01 Long term (current) use of anticoagulants; Z79.51 Long term (current) use of inhaled steroids; Z79.899 Other long term (current) drug therapy; Z82.49 Family history of ischemic heart disease and other diseases of the circulatory system; Z83.3 Family history of diabetes mellitus; Z85.46 Personal history of malignant neoplasm of prostate; Z86.718 Personal history of other venous thrombosis and embolism; Z95.3 Presence of xenogenic heart valve; Z95.5 Presence of coronary angioplasty implant and graft; Z99.81 Dependence on supplemental oxygen; J20.9 Acute bronchitis, unspecified; J44.0 Chronic obstructive pulmonary disease with (acute) lower respiratory infection
CPT/HCPCS: 36415; 71046; 80048; 80053; 81001; 82550; 82553; 83036; 83605; 83880; 84484; 85025; 85027; 85610; 85730; 87040; 87070; 87086; 87205; 87502; 93005; 94640; 94760; 96365; 96375; 99285

== ENCOUNTER 2017-11-04 12:18 | Emergency (ER) | payer MEDICARE, BC ==
[2017-11-04] MEDS ORDERED: HYDROcodone/APAP 5-325MG 1 EACH TAB PO STA (12:45)
--- NOTE | 2017-11-04 13:04 | XR ---
EXAMINATION TYPE: XR tibia fibula RT DATE OF EXAM: 11/04/2017 COMPARISON: NONE HISTORY: Pain TECHNIQUE: Two views are submitted. FINDINGS: The osseous structures are intact. There is vascular calcifications in arthropathy of the knee joint. . Surgical clips are noted. IMPRESSION: 1. No acute osseous abnormality.
--- NOTE | 2017-11-04 13:26 | ED ---
Lower Extremity Injury HPI - General Chief Complaint: Extremity Injury, Lower Stated Complaint: Leg pain Time Seen by Provider: 11/04/17 12:36 Source: patient, RN notes reviewed Mode of arrival: ambulatory Limitations: no limitations - History of Present Illness Initial Comments: 67-year-old male presents emergency Department chief complaint of right leg pain. Patient states that he fell in the [place] while doing history: On Easter and states that he's had pain ever since. Patient's had a prior DVT of his right leg and venous insufficiency. Patient saw PCP today sent here for further evaluation to rule out blood clot. Patient denies any paresthesias he does complain has like a swollen, slightly red in nature. Denies fever or chills. - Related Data Home Medications Medication Instructions Recorded Confirmed RX: Diltiazem HCl [Diltiazem 24Hr 240 mg PO DAILY 08/23/14 11/04/17 ER] RX: Metoprolol Tartrate [Lopressor] 100 mg PO BID 08/23/14 11/04/17 RX: Potassium Chloride [Klor-Con 20 meq PO BID 08/23/14 11/04/17 20] RX: Budesonide-Formot 160-4.5 Mcg 2 puff INHALATION RT-BID 10/07/15 11/04/17 [Symbicort 160-4.5 Mcg Inhaler] RX: Thiamine [Vitamin B-1] 100 mg PO DAILY 11/18/15 11/04/17 RX: Tiotropium 18 Mcg/Puff 1 cap INHALATION RT-DAILY 03/19/16 11/04/17 [Spiriva] RX: Pregabalin [Lyrica] 50 mg PO BID 08/11/16 11/04/17 RX: Atorvastatin [Lipitor] 40 mg PO HS 01/09/17 11/04/17 RX: Spironolactone [Aldactone] 25 mg PO DAILY 01/09/17 11/04/17 RX: Furosemide [Lasix] 40 mg PO HS 09/23/17 11/04/17 RX: Furosemide [Lasix] 80 mg PO QAM 09/23/17 11/04/17 RX: Pantoprazole [Protonix] 40 mg PO DAILY 09/23/17 11/04/17 RX: Vit C/E/Zn/Coppr/Lutein/Zeaxan 1 cap PO DAILY 09/23/17 11/04/17 [Preservision Areds 2 Softgel] RX: Warfarin Sodium 6 mg PO HS 09/23/17 11/04/17 Clopidogrel [Plavix] 75 mg PO DAILY 11/04/17 11/04/17 RX: Albuterol Nebulized [Ventolin 2.5 mg INHALATION RT-QID 11/04/17 11/04/17 Nebulized] Previous Rx's Medication Instructions Recorded RX: Folic Acid 1 mg PO DAILY #1 tablet 09/10/14 RX: Ferrous Sulfate [Iron (65 MG 325 mg PO DAILY #30 tab 03/06/17 Elemental)] RX: Sodium Chloride 0.65% Nasal 2 spray NASAL QID PRN spray 09/26/17 [Deep Sea (Saline)] Allergies Allergy/AdvReac Type Severity Reaction Status Date / Time No Known Allergies Allergy Verified 11/04/17 12:46 Review of Systems ROS Statement: Those systems with pertinent positive or pertinent negative responses have been documented in the HPI. ROS Other: All systems not noted in ROS Statement are negative. Past Medical History Past Medical History: Atrial Fibrillation, Atrial Flutter, Coronary Artery Disease (CAD), Cancer, Chest Pain / Angina, Heart Failure, COPD, Deep Vein Thrombosis (DVT), Eye Disorder, GERD/Reflux, GI Bleed, Hyperlipidemia, Hypertension, Memory Impairment, Myocardial Infarction (VT), Pneumonia Additional Past Medical History / Comment(s): COPD with a baseline FEV1 of 40% of predicted, coronary artery disease stable dissection of the descending aorta, , hypertension, hyperlipidemia, chronic atrial fibrillation and is anticoagulated with warfarin, Aortic valve replacement with a bioprosthetic valve, chronic stable aortic dissection as described in the HPI being monitored ; chronic atrial fibrillation, moderate degree of pulmonary hypertension based on previous echocardiograms, previous pneumonia 2008 and 2014, prostate cancer with prostatectomy, DVT R lower leg, macular degeneration ,left arm fracture, chronic tinnitus in both ears, 02 3 liters at hs, gastritis identified on previous endoscopy, previous enterococcal urine checked infection, liver cirrhosis related to history of alcoholism. Last Myocardial Infarction Date:: unsure History of Any Multi-Drug Resistant Organisms: None Reported Date of last positivie culture/infection: None MDRO Source:: None Past Surgical History: Cardiac Valve Replacement, Heart Catheterization, Heart Catheterization With Stent, Hernia Repair, Orthopedic Surgery, Prostate Surgery Additional Past Surgical History / Comment(s): Aortic valve replacement, prostatectomy, right inguinal hernia repair 2, bilateral knee arthroscopy, colonoscopy, EGD, polypectomy, right leg varicose vein stripping, removal of a blood clot from the right lower extremity, neck surgery and removal of shrapnel' s from the right shoulder Past Anesthesia/Blood Transfusion Reactions: No Reported Reaction Date of Last Stent Placement:: UNK Past Psychological History: No Psychological Hx Reported Smoking Status: Current every day smoker Past Alcohol Use History: Occasional Past Drug Use History: None Reported - Past Family History Mother Family Medical History: Diabetes Mellitus Additional Family Medical History / Comment(s): Mother at age 74 from diabetic complications. Father Family Medical History: Congestive Heart Failure (CHF) Additional Family Medical History / Comment(s): Father at age 91 yrs. General Exam Limitations: no limitations General appearance: alert, in no apparent distress Head exam: Present: atraumatic, normocephalic, normal inspection Respiratory exam: Present: normal lung sounds bilaterally. Absent: respiratory distress, wheezes, rales, rhonchi, stridor Cardiovascular Exam: Present: regular rate, normal rhythm, normal heart sounds. Absent: systolic murmur, diastolic murmur, rubs, gallop, clicks Extremities exam: Present: other (Right lower leg there is venous stasis type changes, pedal pulses equal bilaterally there is moderate swelling noted the right lower leg there is ecchymosis just distal to the knee tenderness to the mid tib-fib region) Skin exam: Present: warm, dry, intact, normal color. Absent: rash Course Vital Signs 11/04/17 12:36 Temperature 97.6 F Pulse Rate 72 Respiratory 18 Rate Blood Pressure 111/59 O2 Sat by Pulse 94 L Oximetry Medical Decision Making - Medical Decision Making 67-year-old male presents from for right leg pain. Patient was sent here to rule out blood clot. Ultrasound reviewed no acute DVT. X-ray reviewed no acute fracture. Patient has a right leg contusion. Patient was offered pain medication patient declines. Return parameters discussed he is advised that needs follow-up for recheck and return for any worsening symptoms. Disposition Clinical Impression: Contusion of right leg, Right leg pain Disposition: HOME SELF-CARE Condition: Stable Instructions: Contusion in Adults (ED), Leg Pain (ED) Additional Instructions: Please return to the Emergency Department if symptoms worsen or any other concerns. Referrals: Rangel Colin DO [Primary Care Provider] - 1-2 days Time of Disposition: 14:18
--- NOTE | 2017-11-04 13:41 | US ---
EXAMINATION TYPE: US venous doppler duplex LE RT DATE OF EXAM: 11/04/2017 12:45 PM COMPARISON: NONE CLINICAL HISTORY: Pain. Right knee pain, discoloration, h/o dvt and on thinners SIDE PERFORMED: Right TECHNIQUE: The lower extremity deep venous system is examined utilizing real time linear array sonog rabia with graded compression, doppler sonography and color-flow sonography. VESSELS IMAGED: External Iliac Vein (EIV) Common Femoral Vein Deep Femoral Vein Greater Saphenous Vein * Femoral Vein Popliteal Vein Small Saphenous Vein * Proximal Calf Veins (* superficial vessels) Right Leg: Appears negative for DVTpatient was unable to tolerate pressure images in mid and dist femoral vein, good blood flow seen IMPRESSION: 1. Right lower extremity negative for deep venous thrombosis by ultrasound. 2. Exam is limited due to the degree of compression available from the patient's pressure tolerance.
[2017-11-04 14:34] VITALS: BP 101/55; PULSE 74; RESP 16; TEMP 98
== END 2017-11-04 14:28 | disposition home or self-care (01) ==
LOC: EC 12:18
DX: S80.11XA Contusion of right lower leg, initial encounter (principal); I87.8 Other specified disorders of veins; E78.5 Hyperlipidemia, unspecified; I48.91 Unspecified atrial fibrillation; J44.9 Chronic obstructive pulmonary disease, unspecified; I25.2 Old myocardial infarction; K21.9 Gastro-esophageal reflux disease without esophagitis; F17.200 Nicotine dependence, unspecified, uncomplicated; I50.9 Heart failure, unspecified; I25.10 Atherosclerotic heart disease of native coronary artery without angina pectoris; I27.20 Pulmonary hypertension, unspecified; Z79.51 Long term (current) use of inhaled steroids; Z79.02 Long term (current) use of antithrombotics/antiplatelets; Z86.718 Personal history of other venous thrombosis and embolism; Z79.899 Other long term (current) drug therapy; Z98.890 Other specified postprocedural states; W19.XXXA Unspecified fall, initial encounter
CPT/HCPCS: 99284

== ENCOUNTER 2018-04-04 11:35 | Emergency (ER) | payer MEDICARE, BC ==
--- NOTE | 2018-04-04 12:05 | ED ---
General Adult HPI - General Chief complaint: Recheck/Abnormal Lab/Rx Stated complaint: RT ARM AND ANKLE PAIN Time Seen by Provider: 04/04/18 11:45 Source: patient Mode of arrival: wheelchair Limitations: no limitations - History of Present Illness Initial comments: 67-year-old male presents to the emergency department for a chief complaint of right lower extremity pain times one week. Patient denies any injuries to the ankle or foot and states this occurred overnight. Patient states the pain is mostly in his ankle and foot. Patient states pain is worse when he is bearing weight. He states the pain is a constant dull pain mostly in the right ankle. Patient also admits to pressure and soreness in the right calf. Patient states he is able to ambulate but it is somewhat painful. Patient admits to a history of DVT and is on warfarin. Patient also states he "bumped his arm" on something 3 days ago and has a skin tear of the right arm. He states he cleaned it quite thoroughly and has been bandaging it. Patient states bleeding is now controlled. Patient denies any other injuries. - Related Data Home Medications Medication Instructions Recorded Confirmed Diltiazem HCl [Diltiazem 24Hr ER] 240 mg PO DAILY 08/23/14 04/04/18 Metoprolol Tartrate [Lopressor] 100 mg PO BID 08/23/14 04/04/18 Potassium Chloride [Klor-Con 20] 20 meq PO BID 08/23/14 04/04/18 Budesonide-Formot 160-4.5 Mcg 2 puff INHALATION RT-BID 10/07/15 04/04/18 [Symbicort 160-4.5 Mcg Inhaler] Thiamine [Vitamin B-1] 100 mg PO DAILY 11/18/15 04/04/18 Tiotropium 18 Mcg/Puff [Spiriva] 1 cap INHALATION RT-DAILY 03/19/16 04/04/18 Pregabalin [Lyrica] 50 mg PO BID 08/11/16 04/04/18 Spironolactone [Aldactone] 25 mg PO DAILY 01/09/17 04/04/18 Furosemide [Lasix] 40 mg PO BID 09/23/17 04/04/18 Pantoprazole [Protonix] 40 mg PO DAILY 09/23/17 04/04/18 Vit C/E/Zn/Coppr/Lutein/Zeaxan 1 cap PO DAILY 09/23/17 04/04/18 [Preservision Areds 2 Softgel] Albuterol Nebulized [Ventolin 2.5 mg INHALATION RT-Q4H PRN 11/04/17 04/04/18 Nebulized] Clopidogrel [Plavix] 75 mg PO DAILY 11/04/17 04/04/18 Atorvastatin Calcium [Lipitor] 40 mg PO HS 04/04/18 04/04/18 Brimonidine 0.2%/Brinzolami 1% 1 drop BOTH EYES BID 04/04/18 04/04/18 Ketorolac [Toradol] 60 mg IM DAILY 04/04/18 04/04/18 Levothyroxine Sodium [Synthroid] 50 mcg PO DAILY 04/04/18 04/04/18 Warfarin Sodium 1 mg PO DAILY 04/04/18 04/04/18 Warfarin Sodium 6 mg PO SUMOTUWEFRSA 04/04/18 04/04/18 Previous Rx's Medication Instructions Recorded Folic Acid 1 mg PO DAILY #1 tablet 09/10/14 Ferrous Sulfate [Iron (65 MG 325 mg PO DAILY #30 tab 03/06/17 Elemental)] Allergies Allergy/AdvReac Type Severity Reaction Status Date / Time No Known Allergies Allergy Verified 04/04/18 13:47 Review of Systems ROS Statement: Those systems with pertinent positive or pertinent negative responses have been documented in the HPI. ROS Other: All systems not noted in ROS Statement are negative. Past Medical History Past Medical History: Atrial Fibrillation, Atrial Flutter, Coronary Artery Disease (CAD), Cancer, Chest Pain / Angina, Heart Failure, COPD, Deep Vein Thrombosis (DVT), Eye Disorder, GERD/Reflux, GI Bleed, Hyperlipidemia, Hypertension, Memory Impairment, Myocardial Infarction ([place]), Pneumonia Additional Past Medical History / Comment(s): COPD with a baseline FEV1 of 40% of predicted, coronary artery disease stable dissection of the descending aorta, , hypertension, hyperlipidemia, chronic atrial fibrillation and is anticoagulated with warfarin, Aortic valve replacement with a bioprosthetic valve, chronic stable aortic dissection as described in the HPI being monitored ; chronic atrial fibrillation, moderate degree of pulmonary hypertension based on previous echocardiograms, previous pneumonia 2008 and 2014, prostate cancer with prostatectomy, DVT R lower leg, macular degeneration ,left arm fracture, chronic tinnitus in both ears, 02 3 liters at hs, gastritis identified on previous endoscopy, previous enterococcal urine checked infection, liver cirrhosis related to history of alcoholism. Last Myocardial Infarction Date:: unsure History of Any Multi-Drug Resistant Organisms: None Reported Date of last positivie culture/infection: None MDRO Source:: None Past Surgical History: Cardiac Valve Replacement, Heart Catheterization, Heart Catheterization With Stent, Hernia Repair, Orthopedic Surgery, Prostate Surgery Additional Past Surgical History / Comment(s): Aortic valve replacement, prostatectomy, right inguinal hernia repair 2, bilateral knee arthroscopy, colonoscopy, EGD, polypectomy, right leg varicose vein stripping, removal of a blood clot from the right lower extremity, neck surgery and removal of shrapnel' s from the right shoulder Past Anesthesia/Blood Transfusion Reactions: No Reported Reaction Date of Last Stent Placement:: UNK Past Psychological History: No Psychological Hx Reported Smoking Status: Current every day smoker Past Alcohol Use History: Daily Past Drug Use History: None Reported - Past Family History Mother Family Medical History: Diabetes Mellitus Additional Family Medical History / Comment(s): Mother at age 74 from diabetic complications. Father Family Medical History: Congestive Heart Failure (CHF) Additional Family Medical History / Comment(s): Father at age 91 yrs. General Exam - General Exam Comments Initial Comments: There is a 2.5 cm skin tear on the right forearm. No tenderness around the skin tear. Full range of motion of the right upper extremity. Capillary refill less than 2 seconds and radial pulse 2+. No signs of cellulitis or streaking redness. No drainage. Limitations: no limitations General appearance: alert, in no apparent distress Head exam: Present: atraumatic, normocephalic, normal inspection Eye exam: Present: normal appearance. Absent: scleral icterus, conjunctival injection ENT exam: Present: normal exam, mucous membranes moist Neck exam: Present: normal inspection, full ROM. Absent: tenderness, meningismus, lymphadenopathy Respiratory exam: Present: normal lung sounds bilaterally. Absent: respiratory distress, wheezes, rales, rhonchi, stridor Cardiovascular Exam: Present: regular rate, normal rhythm, normal heart sounds. Absent: systolic murmur, diastolic murmur, rubs, gallop, clicks Extremities exam: Present: full ROM (Full range of motion of the right foot ankle and knee), tenderness (Tenderness of the bilateral malleoli worse but the medial malleolus of the right ankle. Mild tenderness in the right calf.), normal capillary refill (Refill less than 2 seconds and right lower extremity. PD and PT pulses strong and Doppler), pedal edema (1+ nonpitting edema noted), other (Sensation intact in the right lower extremity although somewhat diminished which is chronic due to his history of surgery 5 years ago. No evidence of a cellulitic infection or abscess. No spreading redness or streaking redness. No increased warmth in the right ankle.) Course Vital Signs 04/04/18 11:41 Temperature 98.8 F Pulse Rate 64 Respiratory 20 Rate Blood Pressure 101/53 O2 Sat by Pulse 96 Oximetry Medical Decision Making - Medical Decision Making 67-year-old male presents to the emergency department for a chief complaint of right ankle pain x 1 week. Patient has a history of DVTs. Patient is currently on warfarin but is concerned for DVT. Patient denies any injuries. On exam patient has tenderness of the medial malleolus as well as somewhat in the right lateral malleolus. Neurovascular intact and pulses strong on Doppler. X-ray of the right ankle shows no acute osseous abnormality. X-ray of the right foot shows no displaced fractures evident. There is lucency likely related to artifact from curvature of the proximal fourth phalanx. Radiologist recommended correlating with the pain but patient does not have pain in this area. Right lower extremity ultrasound is negative for DVT. On exam no evidence of cellulitis. No spreading redness or streaking redness. No abscess noted. No breaks in the skin. Patient will follow up with primary care or orthopedics for this. INR was 4.4. Patient is on this due to aortic valve replacement and A. fib. Patient denies any rectal bleeding coughing up blood etc. Patient will not take his Coumadin dose tonight and follow-up with primary care for this today. - Lab Data Lab Results 04/04/18 Range/Units 13:20 PT 40.1 H (9.0-12.0) sec INR 4.4 H (<1.2) Disposition Clinical Impression: Ankle pain Disposition: HOME SELF-CARE Condition: Good Instructions: Ankle Sprain (ED), R.I.C.E. Treatment (ED) Additional Instructions: Please follow up with primary care. Call today to discuss INR of 4.4. Follow- up with primary care for ankle pain. You may also follow-up with orthopedics if needed. Return to the emergency department if you have any worsening symptoms. Is patient prescribed a controlled substance at d/c from ED?: No Referrals: Rangel Colin DO [Primary Care Provider] - 1-2 days Time of Disposition: 14:26
--- NOTE | 2018-04-04 13:36 | US ---
EXAMINATION TYPE: US venous doppler duplex LE RT DATE OF EXAM: 04/04/2018 12:48 PM COMPARISON: US on 11/04/17 and 02/10/17 CLINICAL HISTORY: Pain. CHF, Patient on Coumadin. SIDE PERFORMED: Right TECHNIQUE: The lower extremity deep venous system is examined utilizing real time linear array sonog rabia with graded compression, doppler sonography and color-flow sonography. VESSELS IMAGED: External Iliac Vein (EIV) Common Femoral Vein Deep Femoral Vein Greater Saphenous Vein * Femoral Vein Popliteal Vein Small Saphenous Vein * Proximal Calf Veins (* superficial vessels) Patient bleeding at tourniquet site, and pressure sites. Patient highly sensitive to pressure/gilma emely. Difficult exam overall. No DVT seen. Right Leg: Negative for DVT IMPRESSION: 1. Right lower extremity ultrasound negative for deep venous thrombosis.
--- NOTE | 2018-04-04 13:39 | XR ---
EXAMINATION TYPE: XR foot complete RT DATE OF EXAM: 04/04/2018 COMPARISON: None HISTORY: Pain swelling TECHNIQUE: Three-view right foot FINDINGS: Achilles tendon calcaneal heel spur is present. No acute displaced fractures evident. Curvi linear lucency is at the base of the proximal phalanx fourth digit may be an old fracture or related to osseous curvature. Occult fracture would be considered less likely. Correlate with location of pat ient's pain. IMPRESSION: 1. No displaced fractures evident. 2. Lucency likely related to artifact from curvature of the proximal fourth phalanx. Correlate with l ocation of pain. Fracture or healing fracture less likely
--- NOTE | 2018-04-04 13:41 | XR ---
EXAMINATION TYPE: XR ankle complete RT DATE OF EXAM: 04/04/2018 COMPARISON: None HISTORY: Pain, swelling TECHNIQUE: Three-view right ankle FINDINGS: Achilles tendon calcaneal heel spur is present. Vascular calcification is present. Mild sof t tissue swelling is present medially. Ankle mortise is intact. IMPRESSION: 1. No acute osseous abnormality. 2. Soft tissue swelling medial foreleg.
[2018-04-04 13:53] LABS: INR 4.4 (<1.2); Prothrombin Time 40.1 sec (9.0-12.0)
[2018-04-04 14:53] VITALS: BP 107/57; PULSE 63; RESP 18; TEMP 98.1
== END 2018-04-04 15:00 | disposition home or self-care (01) ==
LOC: EC 11:35
DX: M25.571 Pain in right ankle and joints of right foot (principal); I48.92 Unspecified atrial flutter; I25.10 Atherosclerotic heart disease of native coronary artery without angina pectoris; I50.9 Heart failure, unspecified; K21.9 Gastro-esophageal reflux disease without esophagitis; E78.5 Hyperlipidemia, unspecified; I10 Essential (primary) hypertension; I25.2 Old myocardial infarction; J44.9 Chronic obstructive pulmonary disease, unspecified; I48.2 Chronic atrial fibrillation; F17.200 Nicotine dependence, unspecified, uncomplicated; Z79.01 Long term (current) use of anticoagulants; Z79.51 Long term (current) use of inhaled steroids; Z79.02 Long term (current) use of antithrombotics/antiplatelets; Z79.899 Other long term (current) drug therapy; Z86.718 Personal history of other venous thrombosis and embolism; Z95.2 Presence of prosthetic heart valve; Z95.5 Presence of coronary angioplasty implant and graft
CPT/HCPCS: 36415; 85610; 99284

== ENCOUNTER → 2018-04-13 | Outpatient (CLI) | payer MEDICARE, BC ==
--- NOTE | 2018-04-13 14:39 | NM ---
EXAMINATION TYPE: NM bone/joint limited DATE OF EXAM: 04/13/2018 COMPARISON: Right ankle and foot x-ray April 04, 2018 HISTORY: Pain and swelling for 2 weeks TECHNIQUE: After the intravenous administration of 24.1 mCi Tc 99m MDP. Delayed imaging is post inje ction. Multiple views of bilateral ankles and feet are submitted in several projections. Findings: There is abnormal radiotracer uptake involving the medial aspect of the distal tibia slight ly more prominent anteriorly on the lateral images. IMPRESSION: As above. Differential would include radio occult acute fracture, , acute osteomyelitis n eeds to BE considered in appropriate clinical setting. Other etiologies not excluded. Clinical correl ation advised.
== END | disposition home or self-care (01) ==
LOC: RADNMMAIN 10:48
DX: R93.7 Abnormal findings on diagnostic imaging of other parts of musculoskeletal system (principal)
CPT/HCPCS: 78300; A9503

== ENCOUNTER 2018-08-03 11:42 | Emergency (ER) | payer MEDICARE, BC ==
[2018-08-03 11:56] VITALS: TEMP 99.3
[2018-08-03] MEDS ORDERED: IPRATROPIUM 0.5 MG/2.5 ML NEBU INHALATION STA (12:15)
[2018-08-03] MEDS ORDERED: ALBUTEROL NEBULIZED 2.5 MG/3 ML INHALATION STA (12:15)
[2018-08-03] MEDS ORDERED: DEXAMETHASONE 4 MG TAB PO STA (12:16)
--- NOTE | 2018-08-03 12:19 | ED ---
General Adult HPI - General Chief complaint: Shortness of Breath Stated complaint: MUNIR, Hx PNEUMONIA Source: patient Mode of arrival: ambulatory Limitations: no limitations - Related Data Home Medications Medication Instructions Recorded Confirmed Diltiazem HCl [Diltiazem 24Hr ER] 240 mg PO DAILY 08/23/14 08/03/18 Metoprolol Tartrate [Lopressor] 100 mg PO BID 08/23/14 08/03/18 Budesonide-Formot 160-4.5 Mcg 2 puff INHALATION RT-BID 10/07/15 08/03/18 [Symbicort 160-4.5 Mcg Inhaler] Thiamine [Vitamin B-1] 100 mg PO DAILY 11/18/15 08/03/18 Tiotropium 18 Mcg/Puff [Spiriva] 1 cap INHALATION RT-DAILY 03/19/16 08/03/18 Pregabalin [Lyrica] 50 mg PO BID 08/11/16 08/03/18 Spironolactone [Aldactone] 25 mg PO DAILY 01/09/17 08/03/18 Furosemide [Lasix] 40 mg PO BID 09/23/17 08/03/18 Pantoprazole [Protonix] 40 mg PO DAILY 09/23/17 08/03/18 Vit C/E/Zn/Coppr/Lutein/Zeaxan 1 cap PO DAILY 09/23/17 08/03/18 [Preservision Areds 2 Softgel] Albuterol Nebulized [Ventolin 2.5 mg INHALATION RT-Q4H PRN 11/04/17 08/03/18 Nebulized] Clopidogrel [Plavix] 75 mg PO DAILY 11/04/17 08/03/18 Atorvastatin Calcium [Lipitor] 40 mg PO HS 04/04/18 08/03/18 Brimonidine 0.2%/Brinzolami 1% 1 drop BOTH EYES BID 04/04/18 08/03/18 Ketorolac [Toradol] 60 mg IM DAILY 04/04/18 08/03/18 Levothyroxine Sodium [Synthroid] 50 mcg PO DAILY 04/04/18 08/03/18 Warfarin Sodium 6 mg PO SUTUWEFRSA 04/04/18 08/03/18 Warfarin [Coumadin] 3 mg PO MOTH 08/03/18 08/03/18 Previous Rx's Medication Instructions Recorded Folic Acid 1 mg PO DAILY #1 tablet 09/10/14 Ferrous Sulfate [Iron (65 MG 325 mg PO DAILY #30 tab 03/06/17 Elemental)] Azithromycin [Zithromax Z-pack] 250 mg PO DIRECTED #4 tab 08/03/18 methylPREDNISolone [Medrol Dose 4 mg PO DIRECTED #1 pack 08/03/18 Pack] Allergies Allergy/AdvReac Type Severity Reaction Status Date / Time No Known Allergies Allergy Verified 08/03/18 12:34 Review of Systems ROS Statement: Those systems with pertinent positive or pertinent negative responses have been documented in the HPI. ROS Other: All systems not noted in ROS Statement are negative. Past Medical History Past Medical History: Atrial Fibrillation, Atrial Flutter, Coronary Artery Disease (CAD), Cancer, Chest Pain / Angina, Heart Failure, COPD, Deep Vein Thrombosis (DVT), Eye Disorder, GERD/Reflux, GI Bleed, Hyperlipidemia, Hypertension, Memory Impairment, Myocardial Infarction ([place]), Pneumonia Additional Past Medical History / Comment(s): COPD with a baseline FEV1 of 40% of predicted, coronary artery disease stable dissection of the descending aorta, , hypertension, hyperlipidemia, chronic atrial fibrillation and is anticoagulated with warfarin, Aortic valve replacement with a bioprosthetic valve, chronic stable aortic dissection as described in the HPI being monitored ; chronic atrial fibrillation, moderate degree of pulmonary hypertension based on previous echocardiograms, previous pneumonia 2008 and 2014, prostate cancer with prostatectomy, DVT R lower leg, macular degeneration ,left arm fracture, chronic tinnitus in both ears, 02 3 liters at hs, gastritis identified on previous endoscopy, previous enterococcal urine checked infection, liver cirrhosis related to history of alcoholism. Last Myocardial Infarction Date:: unsure History of Any Multi-Drug Resistant Organisms: None Reported Date of last positivie culture/infection: None MDRO Source:: None Past Surgical History: Cardiac Valve Replacement, Heart Catheterization, Heart Catheterization With Stent, Hernia Repair, Orthopedic Surgery, Prostate Surgery Additional Past Surgical History / Comment(s): Aortic valve replacement, prostatectomy, right inguinal hernia repair 2, bilateral knee arthroscopy, colonoscopy, EGD, polypectomy, right leg varicose vein stripping, removal of a blood clot from the right lower extremity, neck surgery and removal of shrapnel' s from the right shoulder Past Anesthesia/Blood Transfusion Reactions: No Reported Reaction Date of Last Stent Placement:: UNK Past Psychological History: No Psychological Hx Reported Smoking Status: Current every day smoker Past Alcohol Use History: Daily Past Drug Use History: None Reported - Past Family History Mother Family Medical History: Diabetes Mellitus Additional Family Medical History / Comment(s): Mother at age 74 from diabetic complications. Father Family Medical History: Congestive Heart Failure (CHF) Additional Family Medical History / Comment(s): Father at age 91 yrs. General Exam Limitations: no limitations Course Vital Signs 08/03/18 08/03/18 08/03/18 11:54 13:12 13:23 Temperature 99.3 F Pulse Rate 70 70 68 Respiratory 16 Rate Blood Pressure 119/67 O2 Sat by Pulse 93 L Oximetry 08/03/18 13:33 Temperature Pulse Rate 70 Respiratory Rate Blood Pressure O2 Sat by Pulse Oximetry Medical Decision Making - Medical Decision Making Dictation was produced using [employer] dictation software. please excuse any grammatical, word or spelling errors. Chief Complaint: 68-year-old male past medical history of A. fib, a flutter, coronary artery disease, heart failure presents with 3 days of dyspnea. History of Present Illness: He has been having symptoms of dyspnea for the past 2-3 days. Patient has extensive history of COPD. He does not live on oxygen at home. Patient states she's been having cough and worsening URI type symptoms. He does not recall any overt sick contacts. Denies any fever or chills. Patient states that his shortness of breath is causing him to feel pressure in his entire chest. States it is worse when he coughs. The ROS documented in this emergency department record has been reviewed and confirmed by me. Those systems with pertinent positive or negative responses have been documented in the HPI. All other systems are other negative and/or noncontributory. PHYSICAL EXAM: General Impression: Alert and oriented x3, not in acute distress HEENT: Normocephalic atraumatic, extra-ocular movements intact, pupils equal and reactive to light bilaterally, mucous membranes moist. Cardiovascular: Heart regular rate and rhythm, S1&S2 audible, no murmurs, rubs or gallops Chest: Bilateral lung wheezing Abdomen: Bowel sounds present, abdomen soft, non-tender, non-distended, no organomegaly Musculoskeletal: Pulses present and equal in all extremities, no peripheral edema Motor: Power 5/5 bilaterally, no focal deficits noted Neurological: CN II-XII grossly intact, no focal motor or sensory deficits noted Skin: Intact with no visualized rashes Psych: Normal affect and mood ED course: 68-year-old male presents chief complaint of dyspnea. As upon arrival shows 93 L on room air. Rest of vital signs within acceptable limits. Clinical presentation consistent with COPD exacerbation likely secondary to viral URI. She has history of atrial fibrillation. He is on Coumadin. No RVR.Laboratory evaluation obtained. Mild leukocytosis of 12.5 which appears to be at his baseline. Coag panel shows INR 3.7. Metabolic panel shows carbon dioxide of 35. Rest metabolic is unremarkable. Influenza test negative. Chest x-ray performed showing infiltrate to the bibasilar lungs. Patient be discharged with steroid Dosepak, azithromycin pack. Patient told to follow-up with his primary care physician. He is instructed to give him some breathing treatments every 4-6 hours for the next 48 hours. EKG interpretation: Ventricular rate 72, H fibrillation, QRS 86, QTC 429. No CO prolongation, no QTC prolongation, no ST or T-wave changes noted. Overall, this EKG is unremarkable - Lab Data Result diagrams: 08/03/18 12:30 08/03/18 12:30 Lab Results 08/03/18 08/03/18 08/03/18 Range/Units 12:30 12:30 12:30 WBC 12.5 H (3.8-10.6) k/uL RBC 4.22 L (4.30-5.90) m/uL Hgb 13.6 (13.0-17.5) gm/dL Hct 41.6 (39.0-53.0) % MCV 98.8 (80.0-100.0) fL MCH 32.2 (25.0-35.0) pg MCHC 32.6 (31.0-37.0) g/dL RDW 14.4 (11.5-15.5) % Plt Count 155 (150-450) k/uL Neutrophils % 82 % Lymphocytes % 8 % Monocytes % 6 % Eosinophils % 2 % Basophils % 0 % Neutrophils # 10.3 H (1.3-7.7) k/uL Lymphocytes # 1.0 (1.0-4.8) k/uL Monocytes # 0.7 (0-1.0) k/uL Eosinophils # 0.3 (0-0.7) k/uL Basophils # 0.1 (0-0.2) k/uL PT (9.0-12.0) sec INR (<1.2) Sodium 143 (137-145) mmol/L Potassium 4.4 (3.5-5.1) mmol/L Chloride 101 (98-107) mmol/L Carbon Dioxide 35 H (22-30) mmol/L Anion Gap 7 mmol/L BUN 16 (9-20) mg/dL Creatinine 0.68 (0.66-1.25) mg/dL Est GFR (CKD-EPI)AfAm >90 (>60 ml/min/1.73 sqM) Est GFR (CKD-EPI)NonAf >90 (>60 ml/min/1.73 sqM) Glucose 114 H (74-99) mg/dL Calcium 9.0 (8.4-10.2) mg/dL Magnesium 2.0 (1.6-2.3) mg/dL Total Bilirubin 0.9 (0.2-1.3) mg/dL AST 35 (17-59) U/L ALT 30 (21-72) U/L Alkaline Phosphatase 166 H (38-126) U/L Total Creatine Kinase 38 L (55-170) U/L CK-MB (CK-2) 0.7 (0.0-2.4) ng/mL CK-MB (CK-2) Rel Index 1.8 Troponin I <0.012 (0.000-0.034) ng/mL NT-Pro-B Natriuret Pep pg/mL Total Protein 7.7 (6.3-8.2) g/dL Albumin 4.0 (3.5-5.0) g/dL Influenza Type A RNA (Not Detectd) Influenza Type B (PCR) (Not Detectd) 08/03/18 08/03/18 08/03/18 Range/Units 12:30 12:30 12:50 WBC (3.8-10.6) k/uL RBC (4.30-5.90) m/uL Hgb (13.0-17.5) gm/dL Hct (39.0-53.0) % MCV (80.0-100.0) fL MCH (25.0-35.0) pg MCHC (31.0-37.0) g/dL RDW (11.5-15.5) % Plt Count (150-450) k/uL Neutrophils % % Lymphocytes % % Monocytes % % Eosinophils % % Basophils % % Neutrophils # (1.3-7.7) k/uL Lymphocytes # (1.0-4.8) k/uL Monocytes # (0-1.0) k/uL Eosinophils # (0-0.7) k/uL Basophils # (0-0.2) k/uL PT 35.4 H (9.0-12.0) sec INR 3.7 H (<1.2) Sodium (137-145) mmol/L Potassium (3.5-5.1) mmol/L Chloride (98-107) mmol/L Carbon Dioxide (22-30) mmol/L Anion Gap mmol/L BUN (9-20) mg/dL Creatinine (0.66-1.25) mg/dL Est GFR (CKD-EPI)AfAm (>60 ml/min/1.73 sqM) Est GFR (CKD-EPI)NonAf (>60 ml/min/1.73 sqM) Glucose (74-99) mg/dL Calcium (8.4-10.2) mg/dL Magnesium (1.6-2.3) mg/dL Total Bilirubin (0.2-1.3) mg/dL AST (17-59) U/L ALT (21-72) U/L Alkaline Phosphatase (38-126) U/L Total Creatine Kinase (55-170) U/L CK-MB (CK-2) (0.0-2.4) ng/mL CK-MB (CK-2) Rel Index Troponin I (0.000-0.034) ng/mL NT-Pro-B Natriuret Pep 1200 pg/mL Total Protein (6.3-8.2) g/dL Albumin (3.5-5.0) g/dL Influenza Type A RNA Not Detected (Not Detectd) Influenza Type B (PCR) Not Detected (Not Detectd) Disposition Clinical Impression: PNA (pneumonia) Disposition: HOME SELF-CARE Condition: Fair Instructions: Bacterial Pneumonia (ED) Prescriptions: Azithromycin [Zithromax Z-pack] 250 mg PO DIRECTED #4 tab methylPREDNISolone [Medrol Dose Pack] 4 mg PO DIRECTED #1 pack Is patient prescribed a controlled substance at d/c from ED?: No Referrals: [facility] [Primary Care Provider] - 1-2 days Time of Disposition: 14:19
[2018-08-03 12:56] LABS: Basophils # (A) 0.1 k/uL (0-0.2); Basophils % (A) 0 %; Eosinophils # (A) 0.3 k/uL (0-0.7); Eosinophils % (A) 2 %; HCT 41.6 % (39.0-53.0); HGB 13.6 gm/dL (13.0-17.5); Lymphocytes % (A) 8 %; MCH 32.2 pg (25.0-35.0); MCHC 32.6 g/dL (31.0-37.0); MCV 98.8 fL (80.0-100.0); Mean Platelet Volume 7.7; Monocytes # (A) 0.7 k/uL (0-1.0); Monocytes % (A) 6 %; Neutrophils # (A) 10.3 k/uL (1.3-7.7); Neutrophils % (A) 82 %; Platelet Count 155 k/uL (150-450); RBC 4.22 m/uL (4.30-5.90); RDW 14.4 % (11.5-15.5); WBC 12.5 k/uL (3.8-10.6)
[2018-08-03 12:59] LABS: INR 3.7 (<1.2); Prothrombin Time 35.4 sec (9.0-12.0)
[2018-08-03 13:04] LABS: ALT 30 U/L (21-72); AST 35 U/L (17-59); Alkaline Phosphatase 166 U/L (38-126); Anion Gap 7 mmol/L; Blood Urea Nitrogen 16 mg/dL (9-20); Carbon Dioxide 35 mmol/L (22-30); Chloride 101 mmol/L (98-107); Glucose 114 mg/dL (74-99); Potassium 4.4 mmol/L (3.5-5.1); Sodium 143 mmol/L (137-145); Total Bilirubin 0.9 mg/dL (0.2-1.3); Total Protein 7.7 g/dL (6.3-8.2)
--- NOTE | 2018-08-03 13:20 | XR ---
EXAMINATION TYPE: XR chest 2V DATE OF EXAM: 08/03/2018 COMPARISON: 09/23/2017 HISTORY: Chest pain and shortness of breath. History of COPD and congestive heart failure. TECHNIQUE: Frontal and lateral views of the chest are obtained. FINDINGS: There is patchy opacities at the lung bases. No pneumothorax or pleural effusion. Postoper ative changes of the chest are noted as well as surgical clips overlying the right lateral second rib . The cardiac silhouette size is enlarged. The osseous structures are intact. Mild multilevel dege nerative changes of the thoracic spine are noted. IMPRESSION: Bibasilar patchy opacities are favored to represent atelectasis although early developin g pneumonia is a possibility in the appropriate clinical setting.
[2018-08-03 13:41] LABS: Troponin I <0.012 ng/mL (0.000-0.034)
[2018-08-03 13:45] LABS: Creatine Kinase 38 U/L (55-170); Creatine Kinase MB 0.7 ng/mL (0.0-2.4)
[2018-08-03] MEDS ORDERED: AZITHROMYCIN 500 MG TAB PO STA (14:14)
[2018-08-03 14:31] VITALS: BP 154/81; PULSE 80; RESP 20
== END 2018-08-03 14:39 | disposition home or self-care (01) ==
LOC: EC 11:42
DX: J18.9 Pneumonia, unspecified organism (principal); J44.0 Chronic obstructive pulmonary disease with (acute) lower respiratory infection; D72.829 Elevated white blood cell count, unspecified; I48.2 Chronic atrial fibrillation; E78.5 Hyperlipidemia, unspecified; I25.119 Atherosclerotic heart disease of native coronary artery with unspecified angina pectoris; I11.0 Hypertensive heart disease with heart failure; I50.9 Heart failure, unspecified; K21.9 Gastro-esophageal reflux disease without esophagitis; I25.2 Old myocardial infarction; F17.200 Nicotine dependence, unspecified, uncomplicated; Z79.01 Long term (current) use of anticoagulants; Z79.02 Long term (current) use of antithrombotics/antiplatelets; Z79.1 Long term (current) use of non-steroidal anti-inflammatories (NSAID); Z79.51 Long term (current) use of inhaled steroids; Z79.899 Other long term (current) drug therapy; Z86.718 Personal history of other venous thrombosis and embolism; Z95.2 Presence of prosthetic heart valve; Z85.46 Personal history of malignant neoplasm of prostate; Z90.79 Acquired absence of other genital organ(s); Z86.69 Personal history of other diseases of the nervous system and sense organs; Z87.19 Personal history of other diseases of the digestive system; Z95.5 Presence of coronary angioplasty implant and graft; Z82.49 Family history of ischemic heart disease and other diseases of the circulatory system
CPT/HCPCS: 36415; 94640 ×2; 93005; 83880; 80053; 82550; 82553; 83735; 84484; 85025; 85610; 87502; 71046; 99285; J8540

== ENCOUNTER 2018-09-17 12:00 | Inpatient (IN) | payer MEDICARE, BC ==
[2018-09-17] MEDS ORDERED: ASPIRIN 81 MG PO STA (13:07)
[2018-09-17] MEDS ORDERED: NITROGLYCERIN SL TABS 0.4 MG TAB SUBLINGUAL STA (13:08)
--- NOTE | 2018-09-17 13:11 | ED ---
General Adult HPI - General Chief complaint: Extremity Problem,Nontraumatic Stated complaint: shoulder pain Time Seen by Provider: 09/17/18 12:38 Source: patient, RN notes reviewed Mode of arrival: wheelchair Limitations: no limitations - History of Present Illness Initial comments: Patient is a pleasant 68-year-old male presenting to the emergency Department with complaints of left shoulder discomfort. Onset of symptoms was last night prior to going to bed. Patient did not injure himself. Patient does not remember carrying anything heavy. No history of similar symptoms previously. Discomfort is left anterior shoulder. There is some radiation from this including the neck as well as towards the chest. Patient states discomfort is increased greatly with movement. No weakness. No swelling. No rash. No dyspnea. - Related Data Home Medications Medication Instructions Recorded Confirmed Diltiazem HCl [Diltiazem 24Hr ER] 240 mg PO DAILY 08/23/14 09/17/18 Metoprolol Tartrate [Lopressor] 100 mg PO BID 08/23/14 09/17/18 Budesonide-Formot 160-4.5 Mcg 2 puff INHALATION RT-BID 10/07/15 09/17/18 [Symbicort 160-4.5 Mcg Inhaler] Thiamine [Vitamin B-1] 100 mg PO DAILY 11/18/15 09/17/18 Tiotropium 18 Mcg/Puff [Spiriva] 1 cap INHALATION RT-DAILY 03/19/16 09/17/18 Pregabalin [Lyrica] 50 mg PO BID 08/11/16 09/17/18 Spironolactone [Aldactone] 25 mg PO DAILY 01/09/17 09/17/18 Furosemide [Lasix] 40 mg PO BID 09/23/17 09/17/18 Pantoprazole [Protonix] 40 mg PO DAILY 09/23/17 09/17/18 Vit C/E/Zn/Coppr/Lutein/Zeaxan 1 cap PO DAILY 09/23/17 09/17/18 [Preservision Areds 2 Softgel] Albuterol Nebulized [Ventolin 2.5 mg INHALATION RT-Q4H PRN 11/04/17 09/17/18 Nebulized] Clopidogrel [Plavix] 75 mg PO DAILY 11/04/17 09/17/18 Atorvastatin Calcium [Lipitor] 40 mg PO HS 04/04/18 09/17/18 Brimonidine 0.2%/Brinzolami 1% 1 drop BOTH EYES BID 04/04/18 09/17/18 Ketorolac [Toradol] 60 mg IM DAILY 04/04/18 09/17/18 Levothyroxine Sodium [Synthroid] 50 mcg PO DAILY 04/04/18 09/17/18 Warfarin Sodium 6 mg PO SUTUTHSA 04/04/18 09/17/18 Warfarin [Coumadin] 3 mg PO MOWEFR 08/03/18 09/17/18 Previous Rx's Medication Instructions Recorded Folic Acid 1 mg PO DAILY #1 tablet 09/10/14 Ferrous Sulfate [Iron (65 MG 325 mg PO DAILY #30 tab 03/06/17 Elemental)] Allergies Allergy/AdvReac Type Severity Reaction Status Date / Time No Known Allergies Allergy Verified 09/17/18 12:51 Review of Systems ROS Statement: Those systems with pertinent positive or pertinent negative responses have been documented in the HPI. ROS Other: All systems not noted in ROS Statement are negative. Constitutional: Denies: fever Eyes: Denies: eye pain ENT: Denies: ear pain Respiratory: Denies: cough Cardiovascular: Reports: as per HPI Endocrine: Denies: fatigue Gastrointestinal: Denies: abdominal pain Genitourinary: Denies: dysuria Musculoskeletal: Reports: other (Left shoulder pain) Skin: Denies: rash Neurological: Denies: headache, weakness Past Medical History Past Medical History: Atrial Fibrillation, Atrial Flutter, Coronary Artery Disease (CAD), Cancer, Chest Pain / Angina, Heart Failure, COPD, Deep Vein Thrombosis (DVT), Eye Disorder, GERD/Reflux, GI Bleed, Hyperlipidemia, Hypertension, Memory Impairment, Myocardial Infarction ([place]), Pneumonia Additional Past Medical History / Comment(s): COPD with a baseline FEV1 of 40% of predicted, coronary artery disease stable dissection of the descending aorta, , hypertension, hyperlipidemia, chronic atrial fibrillation and is anticoagulated with warfarin, Aortic valve replacement with a bioprosthetic valve, chronic stable aortic dissection as described in the HPI being monitored ; chronic atrial fibrillation, moderate degree of pulmonary hypertension based on previous echocardiograms, previous pneumonia 2008 and 2014, prostate cancer with prostatectomy, DVT R lower leg, macular degeneration ,left arm fracture, chronic tinnitus in both ears, 02 3 liters at hs, gastritis identified on previous endoscopy, previous enterococcal urine checked infection, liver cirrhosis related to history of alcoholism. Last Myocardial Infarction Date:: unsure History of Any Multi-Drug Resistant Organisms: None Reported Date of last positivie culture/infection: None MDRO Source:: None Past Surgical History: Cardiac Valve Replacement, Heart Catheterization, Heart Catheterization With Stent, Hernia Repair, Orthopedic Surgery, Prostate Surgery Additional Past Surgical History / Comment(s): Aortic valve replacement, prostatectomy, right inguinal hernia repair 2, bilateral knee arthroscopy, colonoscopy, EGD, polypectomy, right leg varicose vein stripping, removal of a blood clot from the right lower extremity, neck surgery and removal of shrapnel' s from the right shoulder Past Anesthesia/Blood Transfusion Reactions: No Reported Reaction Date of Last Stent Placement:: UNK Past Psychological History: No Psychological Hx Reported Smoking Status: Current every day smoker Past Alcohol Use History: Daily Past Drug Use History: None Reported - Past Family History Mother Family Medical History: Diabetes Mellitus Additional Family Medical History / Comment(s): Mother at age 74 from diabetic complications. Father Family Medical History: Congestive Heart Failure (CHF) Additional Family Medical History / Comment(s): Father at age 91 yrs. General Exam Limitations: no limitations General appearance: alert, in no apparent distress Head exam: Present: atraumatic Eye exam: Present: normal appearance Neck exam: Present: normal inspection Respiratory exam: Present: normal lung sounds bilaterally. Absent: chest wall tenderness Cardiovascular Exam: Present: regular rate, irregular rhythm Expanded Peripheral pulses: 2+: Radial (R), Radial (L) GI/Abdominal exam: Present: soft. Absent: tenderness Extremities exam: Present: tenderness (Left shoulder tenderness is present. No swelling. No erythema. Significant discomfort with active range of motion. Mild discomfort with passive range of motion.). Absent: joint swelling Back exam: Present: normal inspection Neurological exam: Present: alert. Absent: motor sensory deficit Psychiatric exam: Present: normal affect, normal mood Skin exam: Present: normal color Course Vital Signs 09/17/18 09/17/18 12:29 15:08 Temperature 100 F H Pulse Rate 83 74 Respiratory 16 18 Rate Blood Pressure 110/59 134/66 O2 Sat by Pulse 95 100 Oximetry EKG Findings - EKG Comments: EKG Findings:: A. fib with rate of 85. QRS 92. QT 364. QT C433. Normal axis. Normal QRS. No acute ST change. Medical Decision Making - Medical Decision Making Patient reevaluated. No significant improvement nitroglycerin however morphine did help. Patient did have some extension of the discomfort to the chest. Patient does have borderline temperature and some elevation of white blood cell count. Patient will be held for repeat cardiac testing and evaluation as well as orthopnea evaluation for the shoulder. - Lab Data Result diagrams: 09/17/18 13:28 09/17/18 13:28 Lab Results 09/17/18 09/17/18 09/17/18 Range/Units 13:28 13:28 13:28 WBC 15.3 H (3.8-10.6) k/uL RBC 4.36 (4.30-5.90) m/uL Hgb 13.8 (13.0-17.5) gm/dL Hct 43.5 (39.0-53.0) % MCV 99.8 (80.0-100.0) fL MCH 31.6 (25.0-35.0) pg MCHC 31.6 (31.0-37.0) g/dL RDW 14.5 (11.5-15.5) % Plt Count 200 (150-450) k/uL Neutrophils % 80 % Lymphocytes % 9 % Monocytes % 7 % Eosinophils % 1 % Basophils % 1 % Neutrophils # 12.3 H (1.3-7.7) k/uL Lymphocytes # 1.3 (1.0-4.8) k/uL Monocytes # 1.1 H (0-1.0) k/uL Eosinophils # 0.2 (0-0.7) k/uL Basophils # 0.1 (0-0.2) k/uL Macrocytosis Slight PT (9.0-12.0) sec INR (<1.2) APTT (22.0-30.0) sec Sodium 140 (137-145) mmol/L Potassium 4.5 (3.5-5.1) mmol/L Chloride 98 (98-107) mmol/L Carbon Dioxide 32 H (22-30) mmol/L Anion Gap 10 mmol/L BUN 14 (9-20) mg/dL Creatinine 0.91 (0.66-1.25) mg/dL Est GFR (CKD-EPI)AfAm >90 (>60 ml/min/1.73 sqM) Est GFR (CKD-EPI)NonAf 85 (>60 ml/min/1.73 sqM) Glucose 126 H (74-99) mg/dL Calcium 9.4 (8.4-10.2) mg/dL Magnesium 1.9 (1.6-2.3) mg/dL Total Bilirubin 1.0 (0.2-1.3) mg/dL AST 39 (17-59) U/L ALT 35 (21-72) U/L Alkaline Phosphatase 230 H (38-126) U/L Total Creatine Kinase 37 L (55-170) U/L CK-MB (CK-2) 0.4 (0.0-2.4) ng/mL CK-MB (CK-2) Rel Index 1.1 Troponin I <0.012 (0.000-0.034) ng/mL Total Protein 8.2 (6.3-8.2) g/dL Albumin 4.5 (3.5-5.0) g/dL 09/17/18 Range/Units 13:28 WBC (3.8-10.6) k/uL RBC (4.30-5.90) m/uL Hgb (13.0-17.5) gm/dL Hct (39.0-53.0) % MCV (80.0-100.0) fL MCH (25.0-35.0) pg MCHC (31.0-37.0) g/dL RDW (11.5-15.5) % Plt Count (150-450) k/uL Neutrophils % % Lymphocytes % % Monocytes % % Eosinophils % % Basophils % % Neutrophils # (1.3-7.7) k/uL Lymphocytes # (1.0-4.8) k/uL Monocytes # (0-1.0) k/uL Eosinophils # (0-0.7) k/uL Basophils # (0-0.2) k/uL Macrocytosis PT 25.3 H (9.0-12.0) sec INR 2.6 H (<1.2) APTT 46.2 H (22.0-30.0) sec Sodium (137-145) mmol/L Potassium (3.5-5.1) mmol/L Chloride (98-107) mmol/L Carbon Dioxide (22-30) mmol/L Anion Gap mmol/L BUN (9-20) mg/dL Creatinine (0.66-1.25) mg/dL Est GFR (CKD-EPI)AfAm (>60 ml/min/1.73 sqM) Est GFR (CKD-EPI)NonAf (>60 ml/min/1.73 sqM) Glucose (74-99) mg/dL Calcium (8.4-10.2) mg/dL Magnesium (1.6-2.3) mg/dL Total Bilirubin (0.2-1.3) mg/dL AST (17-59) U/L ALT (21-72) U/L Alkaline Phosphatase (38-126) U/L Total Creatine Kinase (55-170) U/L CK-MB (CK-2) (0.0-2.4) ng/mL CK-MB (CK-2) Rel Index Troponin I (0.000-0.034) ng/mL Total Protein (6.3-8.2) g/dL Albumin (3.5-5.0) g/dL - Radiology Data Radiology results: image reviewed (Chest x-ray shows mild congestion, no acute process. X-ray of the left shoulder reveals no acute process. Mild spurring) Disposition Clinical Impression: Chest pain, Shoulder pain Disposition: ADMITTED IP TO THIS HOSP Is patient prescribed a controlled substance at d/c from ED?: No Referrals: [facility],Clinic [Primary Care Provider] - 1-2 days Decision Time: 15:52
[2018-09-17] MEDS ORDERED: MORPHINE SULFATE 4 MG/ML SYRINGE IV STA (13:35)
[2018-09-17 14:00] LABS: Basophils # (A) 0.1 k/uL (0-0.2); Basophils % (A) 1 %; Eosinophils # (A) 0.2 k/uL (0-0.7); Eosinophils % (A) 1 %; HCT 43.5 % (39.0-53.0); HGB 13.8 gm/dL (13.0-17.5); Lymphocytes # (A) 1.3 k/uL (1.0-4.8); Lymphocytes % (A) 9 %; MCH 31.6 pg (25.0-35.0); MCHC 31.6 g/dL (31.0-37.0); MCV 99.8 fL (80.0-100.0); Macrocytosis Slight; Mean Platelet Volume 7.3; Monocytes # (A) 1.1 k/uL (0-1.0); Monocytes % (A) 7 %; Neutrophils # (A) 12.3 k/uL (1.3-7.7); Neutrophils % (A) 80 %; Platelet Count 200 k/uL (150-450); RBC 4.36 m/uL (4.30-5.90); RDW 14.5 % (11.5-15.5); WBC 15.3 k/uL (3.8-10.6)
[2018-09-17 14:14] LABS: ALT 35 U/L (21-72); AST 39 U/L (17-59); Albumin 4.5 g/dL (3.5-5.0); Alkaline Phosphatase 230 U/L (38-126); Anion Gap 10 mmol/L; Blood Urea Nitrogen 14 mg/dL (9-20); Calcium 9.4 mg/dL (8.4-10.2); Carbon Dioxide 32 mmol/L (22-30); Chloride 98 mmol/L (98-107); Glucose 126 mg/dL (74-99); Magnesium 1.9 mg/dL (1.6-2.3); Potassium 4.5 mmol/L (3.5-5.1); Sodium 140 mmol/L (137-145); Total Protein 8.2 g/dL (6.3-8.2)
[2018-09-17 14:19] LABS: Creatine Kinase 37 U/L (55-170)
--- NOTE | 2018-09-17 14:24 | XR ---
EXAMINATION TYPE: XR chest 2V DATE OF EXAM: 09/17/2018 COMPARISON: August 03, 2018 HISTORY: Shoulder pain TECHNIQUE: Frontal and lateral views of the chest are obtained. FINDINGS: Heart is normal. There is coarse interstitial density in the lower lung melendrez and more on the right side. There is no heart failure. Thoracic aorta is atheromatous. There are sternal wires. There are chest leads. There is no pleural effusion. Bony thorax appears intact. IMPRESSION: Mild fibrotic changes. Interstitial markings are increased slightly compared to last exa m. There is mild pulmonary congestion without overt heart failure.
--- NOTE | 2018-09-17 14:26 | XR ---
Left shoulder 3 views. History shoulder pain. Comparison none. FINDINGS: I see no fracture nor dislocation. Glenohumeral joint is anatomic. There are no pathologic calcificat ions at the greater tuberosity. There is minor spurring at the AC joint. IMPRESSION: No acute abnormality of the left shoulder. Minimal spurring.
[2018-09-17 14:32] LABS: Creatine Kinase MB 0.4 ng/mL (0.0-2.4); Troponin I <0.012 ng/mL (0.000-0.034)
[2018-09-17 14:45] LABS: INR 2.6 (<1.2); Partial Thromboplastin Time 46.2 sec (22.0-30.0); Prothrombin Time 25.3 sec (9.0-12.0)
[2018-09-17] MEDS ORDERED: NITROGLYCERIN SL TABS 0.4 MG TAB SUBLINGUAL PRN (15:53)
[2018-09-17] MEDS ORDERED: ACETAMINOPHEN TAB 325 MG TAB PO PRN (17:33)
--- NOTE | 2018-09-17 17:36 | P.HPIM ---
History of Present Illness This is a pleasant 68 years old male with past medical history of congestive heart failure, atrial fibrillation/flutter on warfarin, coronary artery disease , prostate cancer status post prostatectomy, right lower extremity DVT and gastritis, GI bleed, liver cirrhosis, COPD with FEV1 a 40% predicted, GERD, hyperlipidemia, hypertension, memory impairment. The patient to follow up in the [facility]. He presents because of left shoulder pain On admission he had fever of 100, rest of vitals looks stable, leukocytosis of 15.3. INR 2.6. BMP was unremarkable with creatinine 0.9. Liver enzymes were not elevated. Chest x-ray: Showed increased interstitial markings suspicious for mild pulmonary congestion without overt heart failure as per radiology report. Negative x-ray of the left shoulder for acute fracture or acute abnormality. EKG showing atrial fibrillation with heart rate at 85 bpm Review of Systems CONSTITUTIONAL: No fever, no malaise, no fatigue. HEENT: No recent visual problems or hearing problems. Denied any sore throat. CARDIOVASCULAR: No orthopnea, PND, no palpitations, no syncope. PULMONARY: No shortness of breath, no cough, no hemoptysis. GASTROINTESTINAL: No diarrhea, no nausea, no vomiting, no abdominal pain. Normoactive bowel sounds. NEUROLOGICAL: No headaches, no weakness, no numbness. HEMATOLOGICAL: Denies any bleeding or petechiae. GENITOURINARY: Denies any burning micturition, frequency, or urgency. MUSCULOSKELETAL/RHEUMATOLOGICAL: Denies any joint pain, swelling, or any muscle pain. ENDOCRINE: Denies any polyuria or polydipsia. Past Medical History Past Medical History: Atrial Fibrillation, Atrial Flutter, Coronary Artery Disease (CAD), Cancer, Chest Pain / Angina, Heart Failure, COPD, Deep Vein Thrombosis (DVT), Eye Disorder, GERD/Reflux, GI Bleed, Hyperlipidemia, Hypertension, Memory Impairment, Myocardial Infarction ([place]), Pneumonia Additional Past Medical History / Comment(s): COPD with a baseline FEV1 of 40% of predicted, coronary artery disease stable dissection of the descending aorta, , hypertension, hyperlipidemia, chronic atrial fibrillation and is anticoagulated with warfarin, Aortic valve replacement with a bioprosthetic valve, chronic stable aortic dissection as described in the HPI being monitored ; chronic atrial fibrillation, moderate degree of pulmonary hypertension based on previous echocardiograms, previous pneumonia 2008 and 2014, prostate cancer with prostatectomy, DVT R lower leg, macular degeneration ,left arm fracture, chronic tinnitus in both ears, 02 3 liters at hs, gastritis identified on previous endoscopy, previous enterococcal urine checked infection, liver cirrhosis related to history of alcoholism. Last Myocardial Infarction Date:: unsure History of Any Multi-Drug Resistant Organisms: None Reported Date of last positivie culture/infection: None MDRO Source:: None Past Surgical History: Cardiac Valve Replacement, Heart Catheterization, Heart Catheterization With Stent, Hernia Repair, Orthopedic Surgery, Prostate Surgery Additional Past Surgical History / Comment(s): Aortic valve replacement, prostatectomy, right inguinal hernia repair 2, bilateral knee arthroscopy, colonoscopy, EGD, polypectomy, right leg varicose vein stripping, removal of a blood clot from the right lower extremity, neck surgery and removal of shrapnel' s from the right shoulder Past Anesthesia/Blood Transfusion Reactions: No Reported Reaction Date of Last Stent Placement:: UNK Past Psychological History: No Psychological Hx Reported Smoking Status: Current every day smoker Past Alcohol Use History: Daily Past Drug Use History: None Reported - Past Family History Mother Family Medical History: Diabetes Mellitus Additional Family Medical History / Comment(s): Mother at age 74 from diabetic complications. Father Family Medical History: Congestive Heart Failure (CHF) Additional Family Medical History / Comment(s): Father at age 91 yrs. Medications and Allergies Home Medications Medication Instructions Recorded Confirmed Type Diltiazem HCl [Diltiazem 24Hr ER] 240 mg PO DAILY 08/23/14 09/17/18 History Metoprolol Tartrate [Lopressor] 100 mg PO BID 08/23/14 09/17/18 History Folic Acid 1 mg PO DAILY #1 tablet 09/10/14 09/17/18 Rx Budesonide-Formot 160-4.5 Mcg 2 puff INHALATION RT-BID 10/07/15 09/17/18 History [Symbicort 160-4.5 Mcg Inhaler] Thiamine [Vitamin B-1] 100 mg PO DAILY 11/18/15 09/17/18 History Tiotropium 18 Mcg/Puff [Spiriva] 1 cap INHALATION RT-DAILY 03/19/16 09/17/18 History Pregabalin [Lyrica] 50 mg PO BID 08/11/16 09/17/18 History Spironolactone [Aldactone] 25 mg PO DAILY 01/09/17 09/17/18 History Ferrous Sulfate [Iron (65 MG 325 mg PO DAILY #30 tab 03/06/17 09/17/18 Rx Elemental)] Furosemide [Lasix] 40 mg PO BID 09/23/17 09/17/18 History Pantoprazole [Protonix] 40 mg PO DAILY 09/23/17 09/17/18 History Vit C/E/Zn/Coppr/Lutein/Zeaxan 1 cap PO DAILY 09/23/17 09/17/18 History [Preservision Areds 2 Softgel] Albuterol Nebulized [Ventolin 2.5 mg INHALATION RT-Q4H PRN 11/04/17 09/17/18 History Nebulized] Clopidogrel [Plavix] 75 mg PO DAILY 11/04/17 09/17/18 History Atorvastatin Calcium [Lipitor] 40 mg PO HS 04/04/18 09/17/18 History Brimonidine 0.2%/Brinzolami 1% 1 drop BOTH EYES BID 04/04/18 09/17/18 History Ketorolac [Toradol] 60 mg IM DAILY 04/04/18 09/17/18 History Levothyroxine Sodium [Synthroid] 50 mcg PO DAILY 04/04/18 09/17/18 History Warfarin Sodium 6 mg PO SUTUTHSA 04/04/18 09/17/18 History Warfarin [Coumadin] 3 mg PO MOWEFR 08/03/18 09/17/18 History Allergies Allergy/AdvReac Type Severity Reaction Status Date / Time No Known Allergies Allergy Verified 09/17/18 12:51 Physical Exam Vitals: Vital Signs Temp Pulse Resp BP Pulse Ox 09/17/18 15:08 74 18 134/66 100 09/17/18 12:29 100 F H 83 16 110/59 95 Intake and Output 09/17/18 09/17/18 09/17/18 06:59 14:59 22:59 Other: Weight 102.058 kg GENERAL: The patient is alert and oriented x3, not in any acute distress. Well developed, well nourished. HEENT: Pupils are round and equally reacting to light. EOMI. No scleral icterus. No conjunctival pallor. Normocephalic, atraumatic. No pharyngeal erythema. No thyromegaly. CARDIOVASCULAR: S1 and S2 present. No murmurs, rubs, or gallops. PULMONARY: Chest is clear to auscultation, no wheezing or crackles. ABDOMEN: Soft, nontender, nondistended, normoactive bowel sounds. No palpable organomegaly. MUSCULOSKELETAL: No joint swelling or deformity. EXTREMITIES: No cyanosis, clubbing, or pedal edema. NEUROLOGICAL: Gross neurological examination did not reveal any focal deficits. SKIN: No rashes. Results CBC & Chem 7: 09/17/18 13:28 09/17/18 13:28 Labs: Abnormal Lab Results - Last 24 Hours (Table) 09/17/18 09/17/18 09/17/18 Range/Units 13:28 13:28 13:28 WBC 15.3 H (3.8-10.6) k/uL Neutrophils # 12.3 H (1.3-7.7) k/uL Monocytes # 1.1 H (0-1.0) k/uL PT (9.0-12.0) sec INR (<1.2) APTT (22.0-30.0) sec Carbon Dioxide 32 H (22-30) mmol/L Glucose 126 H (74-99) mg/dL Alkaline Phosphatase 230 H (38-126) U/L Total Creatine Kinase 37 L (55-170) U/L 09/17/18 Range/Units 13:28 WBC (3.8-10.6) k/uL Neutrophils # (1.3-7.7) k/uL Monocytes # (0-1.0) k/uL PT 25.3 H (9.0-12.0) sec INR 2.6 H (<1.2) APTT 46.2 H (22.0-30.0) sec Carbon Dioxide (22-30) mmol/L Glucose (74-99) mg/dL Alkaline Phosphatase (38-126) U/L Total Creatine Kinase (55-170) U/L Assessment and Plan Assessment: Systemic inflammatory response, with fever and leukocytosis Left shoulder pain Left upper Chest pain, mostly related to this shoulder pain, ED team called label machine operator to rule out cardiac causes Acute COPD exacerbation, mild to moderate History of coronary artery disease History of congestive heart failure History of chronic atrial fibrillation/flutter on warfarin History of right leg DVT History of gastritis History of GI bleed History of colonic tubular disease Hypertension, essential Hyperlipidemia History of memory impairment History of COPD with FEV1 at 40% predicted current cigarette smoker Plan: This is a pleasant 68 years old male who presents because of chest pain and sepsis. cardiology team was consulted, and I agree with orthopedic team to evaluated for his left shoulder pain. continue with antibiotic, follow-up culture results of the blood in the sputum. We'll send urine analysis wound culture. Continue with a breathing treatment. Pain management Labs and medication were reviewed.. Continue same treatment. Continue with symptomatic treatment. Resume home medication. Monitor lytes and vitals. DVT and GI prophylaxis. Further recommendations of the clinical course of the patient DVT prophylaxis: Subcutaneous heparin GI Prophylaxis: Pepcid PT/OT: Pending Prognosis is guarded
[2018-09-17] MEDS: MORPHINE SULFATE 2 MG/ML SYRINGE IVP PRN (18:57)
[2018-09-17] MEDS: NITROGLYCERIN OINT 1 INCH/GM PACKET TOPICAL SCH (19:01)
--- NOTE | 2018-09-17 19:16 | CT ---
EXAMINATION TYPE: CT chest wo con DATE OF EXAM: 09/17/2018 COMPARISON: 02/09/2017 HISTORY: Chest pain. CT DLP: 495.7 mGycm. Automated Exposure Control for Dose Reduction was Utilized. TECHNIQUE: CT scan of the thorax is performed without IV contrast. FINDINGS: There is mild subpleural interstitial infiltrate and atelectasis in the right lower lobe. There is no evidence of a pulmonary mass. There is no pleural effusion. Heart is enlarged. There is no pericardi al effusion. Thoracic aorta is atheromatous. There is aneurysm of the descending thoracic aorta that measures up to 4.3 cm. There are no hilar masses. There is no mediastinal adenopathy. There are calci fied gallstones. There is no pericardial effusion. There are no hilar masses. The IMPRESSION: Thoracic aortic aneurysm unchanged in size compared to old exam. There is some patchy mild infiltrate and atelectasis at the right lung base improved slightly compared to old exam. There is significant clearing of infiltrate or atelectasis in the left lower lobe compared to old exam. Cardiomegaly.
--- NOTE | 2018-09-17 19:28 | CT ---
EXAMINATION TYPE: CT shoulder LT wo con DATE OF EXAM: 09/17/2018 COMPARISON: None HISTORY: Shoulder pain starting last night. No known injury. CT DLP: 495.7 mGycm Automated exposure control for dose reduction was used. FINDINGS: Multiple axial sections were obtained from the mid humerus to the top of the shoulder joint with no c ontrast. The glenohumeral joint is anatomic. I see no fracture. There is no dislocation. Scapula is intact. [place] int spaces are fairly normal. I see no bony destructive process. There is no evidence of a soft tissu e mass. There is a 5 mm calcification anterior to the humeral head consistent with degenerative pheno curtis. IMPRESSION: NEGATIVE CT SCAN OF THE LEFT SHOULDER JOINT. No fracture seen.
[2018-09-18 06:06] LABS: Basophils % (A) 0 %; Eosinophils # (A) 0.1 k/uL (0-0.7); Eosinophils % (A) 1 %; HCT 44.3 % (39.0-53.0); HGB 14.1 gm/dL (13.0-17.5); Lymphocytes # (A) 1.1 k/uL (1.0-4.8); Lymphocytes % (A) 9 %; MCH 32.2 pg (25.0-35.0); MCHC 31.8 g/dL (31.0-37.0); MCV 101.3 fL (80.0-100.0); Macrocytosis Slight; Mean Platelet Volume 6.9; Monocytes # (A) 0.7 k/uL (0-1.0); Monocytes % (A) 6 %; Neutrophils # (A) 9.4 k/uL (1.3-7.7); Neutrophils % (A) 82 %; Platelet Count 154 k/uL (150-450); RBC 4.37 m/uL (4.30-5.90); RDW 14.5 % (11.5-15.5); WBC 11.5 k/uL (3.8-10.6)
[2018-09-18 06:14] LABS: Anion Gap 7 mmol/L; Blood Urea Nitrogen 12 mg/dL (9-20); Carbon Dioxide 32 mmol/L (22-30); Chloride 99 mmol/L (98-107); Glucose 121 mg/dL (74-99); Potassium 3.9 mmol/L (3.5-5.1); Sodium 138 mmol/L (137-145)
[2018-09-18] MEDS: NITROGLYCERIN OINT 1 INCH/GM PACKET TOPICAL SCH ×4 (06:53→17:33)
[2018-09-18] MEDS: MORPHINE SULFATE 2 MG/ML SYRINGE IVP PRN (08:01)
[2018-09-18] MEDS ORDERED: MORPHINE SULFATE 4 MG/ML SYRINGE IVP PRN (08:02)
--- NOTE | 2018-09-18 09:26 | P.CRDCN ---
History of Present Illness Consult date: 09/18/18 Chief complaint: Left shoulder discomfort History of present illness: This is a pleasant 68-year-old gentleman with a past medical history significant for coronary artery disease and status post a stenting of the LAD proximally in January 2017, chronic atrial fibrillation on oral anticoagulation was Coumadin, history of aortic valve replacement in the past, unknown thoracic aortic aneurysm, presented to the hospital complaining of left shoulder discomfort. He was in his usual state of health until the day before yesterday when he started experiencing the pain in the left shoulder, as a sharp kind of discomfort, was some radiation to the left neck as well as left chest. No associated symptoms of shortness of breath with this, no sweating, no dizziness or lightheadedness, and no syncope. The patient clearly stated that the left arm motion exacerbated the discomfort in the left shoulder. He does not recall falling on the left shoulder nor carrying any heavy weight above his left shoulder. The EKG showed atrial fibrillation with diffuse nonspecific changes. We have only one set of troponin came in to be unremarkable. The chest x-ray showed only mild CHF. The computed tomography scan of the chest was performed and revealed stable thoracic aortic aneurysm at 4.3 cm without any evidence of acute dissection seen. At this point, we will follow-up with the serial cardiac enzymes to rule out any acute coronary event. I doubt that the patient discomfort in the left shoulder is related to angina giving the nature of the pain as well as the motion of the left arm which exacerbate the left shoulder discomfort. We will get an echocardiogram with Doppler at this point. Continue following up with the patient. And further recommendation to follow serial cardiac enzymes. Past Medical History Past Medical History: Atrial Fibrillation, Atrial Flutter, Coronary Artery Disease (CAD), Cancer, Chest Pain / Angina, Heart Failure, COPD, Deep Vein Thrombosis (DVT), Eye Disorder, GERD/Reflux, GI Bleed, Hyperlipidemia, Hypertension, Memory Impairment, Myocardial Infarction (NM), Pneumonia Additional Past Medical History / Comment(s): COPD with a baseline FEV1 of 40% of predicted, coronary artery disease stable dissection of the descending aorta, , hypertension, hyperlipidemia, chronic atrial fibrillation and is anticoagulated with warfarin, Aortic valve replacement with a bioprosthetic valve, chronic stable aortic dissection as described in the HPI being monitored ; chronic atrial fibrillation, moderate degree of pulmonary hypertension based on previous echocardiograms, previous pneumonia 2008 and 2014, prostate cancer with prostatectomy, DVT R lower leg, macular degeneration ,left arm fracture, chronic tinnitus in both ears, 02 3 liters at hs, gastritis identified on previous endoscopy, previous enterococcal urine checked infection, liver cirrhosis related to history of alcoholism. Last Myocardial Infarction Date:: unsure History of Any Multi-Drug Resistant Organisms: None Reported Date of last positivie culture/infection: None MDRO Source:: None Past Surgical History: Cardiac Valve Replacement, Heart Catheterization, Heart Catheterization With Stent, Hernia Repair, Orthopedic Surgery, Prostate Surgery Additional Past Surgical History / Comment(s): Aortic valve replacement, prostatectomy, right inguinal hernia repair 2, bilateral knee arthroscopy, colonoscopy, EGD, polypectomy, right leg varicose vein stripping, removal of a blood clot from the right lower extremity, neck surgery and removal of shrapnel' s from the right shoulder Past Anesthesia/Blood Transfusion Reactions: No Reported Reaction Date of Last Stent Placement:: UNK Past Psychological History: No Psychological Hx Reported Smoking Status: Current every day smoker Past Alcohol Use History: Daily Past Drug Use History: None Reported - Past Family History Mother Family Medical History: Diabetes Mellitus Additional Family Medical History / Comment(s): Mother at age 74 from diabetic complications. Father Family Medical History: Congestive Heart Failure (CHF) Additional Family Medical History / Comment(s): Father at age 91 yrs. Medications and Allergies Home Medications Medication Instructions Recorded Confirmed Type Diltiazem HCl [Diltiazem 24Hr ER] 240 mg PO DAILY 08/23/14 09/17/18 History Metoprolol Tartrate [Lopressor] 100 mg PO BID 08/23/14 09/17/18 History Folic Acid 1 mg PO DAILY #1 tablet 09/10/14 09/17/18 Rx Budesonide-Formot 160-4.5 Mcg 2 puff INHALATION RT-BID 10/07/15 09/17/18 History [Symbicort 160-4.5 Mcg Inhaler] Thiamine [Vitamin B-1] 100 mg PO DAILY 11/18/15 09/17/18 History Tiotropium 18 Mcg/Puff [Spiriva] 1 cap INHALATION RT-DAILY 03/19/16 09/17/18 History Pregabalin [Lyrica] 50 mg PO BID 08/11/16 09/17/18 History Spironolactone [Aldactone] 25 mg PO DAILY 01/09/17 09/17/18 History Ferrous Sulfate [Iron (65 MG 325 mg PO DAILY #30 tab 03/06/17 09/17/18 Rx Elemental)] Furosemide [Lasix] 40 mg PO BID 09/23/17 09/17/18 History Pantoprazole [Protonix] 40 mg PO DAILY 09/23/17 09/17/18 History Vit C/E/Zn/Coppr/Lutein/Zeaxan 1 cap PO DAILY 09/23/17 09/17/18 History [Preservision Areds 2 Softgel] Albuterol Nebulized [Ventolin 2.5 mg INHALATION RT-Q4H PRN 11/04/17 09/17/18 History Nebulized] Clopidogrel [Plavix] 75 mg PO DAILY 11/04/17 09/17/18 History Atorvastatin Calcium [Lipitor] 40 mg PO HS 04/04/18 09/17/18 History Brimonidine 0.2%/Brinzolami 1% 1 drop BOTH EYES BID 04/04/18 09/17/18 History Ketorolac [Toradol] 60 mg IM DAILY 04/04/18 09/17/18 History Levothyroxine Sodium [Synthroid] 50 mcg PO DAILY 04/04/18 09/17/18 History Warfarin Sodium 6 mg PO SUTUTHSA 04/04/18 09/17/18 History Warfarin [Coumadin] 3 mg PO MOWEFR 08/03/18 09/17/18 History Allergies Allergy/AdvReac Type Severity Reaction Status Date / Time No Known Allergies Allergy Verified 09/17/18 12:51 Physical Exam Vitals: Vital Signs Temp Pulse Resp BP Pulse Ox 09/18/18 08:00 107 H 20 146/77 95 09/18/18 07:45 110 H 18 97 09/18/18 06:30 98.9 F 105 H 20 146/75 98 09/18/18 06:00 109 H 18 131/96 95 09/18/18 04:10 112 H 15 148/106 96 09/18/18 04:00 97 16 148/106 97 09/18/18 03:00 112 H 22 148/106 92 L 09/18/18 02:00 104 H 30 H 123/76 96 09/18/18 01:10 104 H 24 123/76 93 L 09/18/18 01:00 108 H 20 123/76 94 L 09/18/18 00:50 100 24 123/76 92 L 09/18/18 00:40 94 24 123/76 95 09/18/18 00:30 104 H 22 123/76 09/17/18 21:30 90 29 H 119/70 09/17/18 21:20 17 119/70 09/17/18 21:12 98 20 119/70 93 L 09/17/18 18:18 100.8 F H 89 18 129/70 93 L 09/17/18 15:08 74 18 134/66 100 09/17/18 12:29 100 F H 83 16 110/59 95 - Constitutional General appearance: no acute distress - Respiratory Respiratory: bilateral: diminished - Cardiovascular Rhythm: irregularly irregular Heart sounds: normal: S1, S2 Abnormal Heart Sounds: systolic murmur Results 09/18/18 05:40 09/18/18 05:40 Cardiac Enzymes 09/17/18 09/17/18 Range/Units 13:28 13:28 AST 39 (17-59) U/L CK-MB (CK-2) 0.4 (0.0-2.4) ng/mL Troponin I <0.012 (0.000-0.034) ng/mL Coagulation 09/17/18 Range/Units 13:28 PT 25.3 H (9.0-12.0) sec APTT 46.2 H (22.0-30.0) sec CBC 09/17/18 09/18/18 Range/Units 13:28 05:40 WBC 15.3 H 11.5 H (3.8-10.6) k/uL RBC 4.36 4.37 (4.30-5.90) m/uL Hgb 13.8 14.1 (13.0-17.5) gm/dL Hct 43.5 44.3 (39.0-53.0) % Plt Count 200 154 (150-450) k/uL Comprehensive Metabolic Panel 09/17/18 09/18/18 Range/Units 13:28 05:40 Sodium 140 138 (137-145) mmol/L Potassium 4.5 3.9 (3.5-5.1) mmol/L Chloride 98 99 (98-107) mmol/L Carbon Dioxide 32 H 32 H (22-30) mmol/L BUN 14 12 (9-20) mg/dL Creatinine 0.91 0.59 L (0.66-1.25) mg/dL Glucose 126 H 121 H (74-99) mg/dL Calcium 9.4 9.0 (8.4-10.2) mg/dL AST 39 (17-59) U/L ALT 35 (21-72) U/L Alkaline Phosphatase 230 H (38-126) U/L Total Protein 8.2 (6.3-8.2) g/dL Albumin 4.5 (3.5-5.0) g/dL Current Medications Generic Name Dose Route Start Last Admin Trade Name Freq PRN Reason Stop Dose Admin Acetaminophen 325 mg 09/17/18 17:33 09/17/18 18:55 Tylenol Tab PO 325 mg Q6HR PRN Administration Fever and/ or MILD Pain Aspirin 325 mg 09/18/18 09:00 Aspirin PO DAILY [facility] Ceftriaxone Sodium 1 gm/ 50 mls @ 100 mls/hr 09/17/18 18:00 09/17/18 18:55 Sodium Chloride IVPB 100 mls/hr Q24HR JAYLA Administration Morphine Sulfate 4 mg 09/18/18 08:02 Morphine Sulfate (Inj) IVP Q4HR PRN Severe Pain Nicotine 1 patch 09/18/18 09:00 Habitrol 21mg/24hr Patch TRANSDERM DAILY [facility] Nitroglycerin 1 inch 09/17/18 18:00 09/18/18 06:53 Nitro-Bid Oint TOPICAL 1 inch Q6HR JAYLA Administration Nitroglycerin 0.4 mg 09/17/18 15:53 Nitrostat SUBLINGUAL Q5M PRN Chest Pain Sodium Chloride 10 ml 09/17/18 21:00 Saline Flush IV BID [facility] Tramadol HCl 50 mg 09/17/18 17:35 Ultram PO QID PRN MODERATE Pain 09/18/18 05:40 09/18/18 05:40 Assessment and Plan Assessment: Assessment #1 left shoulder discomfort. #2 known CAD and status post a stenting of the proximal LAD #3 chronic atrial fibrillation #4 chronic hypoxic respiratory failure #5 history of aortic valve replacement #6 known thoracic aortic aneurysm seems to be stable #7 multiple comorbid conditions Plan #1 acute coronary syndrome to be ruled out. #2 the pain seems to be quite atypical for angina #3 obtain an echocardiogram was Doppler #4 continue the current medical regimen. Continue metoprolol and Coumadin #5 follow-up with the patient. Thank you for allowing us participate in his care
--- NOTE | 2018-09-18 09:55 | CT ---
EXAMINATION TYPE: CT cervical spine wo con DATE OF EXAM: 09/18/2018 COMPARISON: None HISTORY: Left sided neck and shoulder pain. Prior surgery CT DLP: 465.5 mGycm CONTRAST: None CT of the cervical spine is performed in the axial plane at 2 mm thick sections. Reconstructed image s in the coronal, and sagittal plane are reviewed on the computer. No acute fractures are evident. Vertebral body alignment is straightened. Mild disc space narrowing is present within the lower cervical spine. Vertebral body heights are preserved. No spinal canal stenosis is evident. Some spondylosis is through the cervical spine upper thoracic sp ine. No posterior vertebral body spurring is noted Uncovertebral joint hypertrophy contributes to moderate left foraminal stenosis C3-4. Uncovertebral j oint hypertrophy contributes to mild foraminal stenosis C5-6. IMPRESSIONS: 1. Mild degenerative changes discussed above. 2. Moderate uncovertebral joint hypertrophy contributing to mild to moderate foraminal narrowing on t he left C5-6 and C3-4.
--- NOTE | 2018-09-18 10:46 | P.PN ---
Subjective This is a pleasant 68 years old male with past medical history of congestive heart failure, atrial fibrillation/flutter on warfarin, coronary artery disease , prostate cancer status post prostatectomy, right lower extremity DVT and gastritis, GI bleed, liver cirrhosis, COPD with FEV1 a 40% predicted, GERD, hyperlipidemia, hypertension, memory impairment. The patient to follow up in the [facility] clinic. He presents because of left shoulder pain of one-day duration with difficulty in raising his left hand above his head. On admission he had fever of 100, rest of vitals looks stable, leukocytosis of 15.3. INR 2.6. BMP was unremarkable with creatinine 0.9. Liver enzymes were not elevated. Chest x-ray: Showed increased interstitial markings suspicious for mild pulmonary congestion without overt heart failure as per radiology report. Negative x-ray of the left shoulder for acute fracture or acute abnormality. EKG showing atrial fibrillation with heart rate at 85 bpm 09/18/2018 Patient is still complaining of from significant pain in his left shoulders with milder pain in the back of the neck which says his more chronic area patient denies trauma to his left shoulder. Patient has difficulty raising his left arm above his shoulder and head. No signs of deformity or inflammation or swelling. Shoulder x-rays and CT scans were negative. Patient states that he smokes about 1 pack and half per day and he drinks alcohol on a regular basis. He had fever off 100.8 on admissions with mild leukocytosis at 15 K, not coming down to 11 K after patient was started on ceftriaxone. Is still a bit tachycardic. He has some elements of COPD, but with no cough and doesn't make much sclerae. His INR today is 2.6 and rest of the BMP was unremarkable with creatinine 0.5. Cardiology and orthopedic team were consulted from emergency room. CT of the cervical spine showing moderate foraminal narrowing on the left C5-6 and C3-4. Review of systems CONSTITUTIONAL: No fever, no malaise, no fatigue. HEENT: No recent visual problems or hearing problems. Denied any sore throat. CARDIOVASCULAR: No orthopnea, PND, no palpitations, no syncope. PULMONARY: No shortness of breath, no cough, no hemoptysis. GASTROINTESTINAL: No diarrhea, no nausea, no vomiting, no abdominal pain. Normoactive bowel sounds. NEUROLOGICAL: No headaches, no weakness, no numbness. HEMATOLOGICAL: Denies any bleeding or petechiae. GENITOURINARY: Denies any burning micturition, frequency, or urgency. ENDOCRINE: Denies any polyuria or polydipsia. Medication: Warfarin, aspirin, ceftriaxone, morphine, nicotine patch, warfarin, Plavix, Spiriva, Aldactone, Lyrica, Protonix, Lopressor, Synthroid, Lasix, folic acid, Objective - Vital Signs Vital signs: Vital Signs Temp 99.5 F 09/18/18 09:35 Pulse 100 09/18/18 09:35 Resp 18 09/18/18 09:35 BP 138/81 09/18/18 09:35 Pulse Ox 96 09/18/18 09:35 Intake & Output 09/17/18 09/18/18 09/18/18 18:59 06:59 18:59 Weight 102.058 kg - Exam GENERAL: The patient is alert and oriented x3, not in any acute distress. Well developed, well nourished. HEENT: Pupils are round and equally reacting to light. EOMI. No scleral icterus. No conjunctival pallor. Normocephalic, atraumatic. No pharyngeal erythema. No thyromegaly. CARDIOVASCULAR: S1 and S2 present. No murmurs, rubs, or gallops. PULMONARY: Chest is clear to auscultation, no wheezing or crackles. ABDOMEN: Soft, nontender, nondistended, normoactive bowel sounds. No palpable organomegaly. -MUSCULOSKELETAL: No joint swelling or deformity. Patient has limitation in dressing his left arm above his shoulder and head. Same as yesterday EXTREMITIES: No cyanosis, clubbing, or pedal edema. NEUROLOGICAL: Gross neurological examination did not reveal any focal deficits. SKIN: No rashes. - Labs CBC & Chem 7: 09/18/18 05:40 09/18/18 05:40 Labs: Abnormal Lab Results - Last 24 Hours (Table) 09/17/18 09/17/18 09/17/18 Range/Units 13:28 13:28 13:28 WBC 15.3 H (3.8-10.6) k/uL MCV (80.0-100.0) fL Neutrophils # 12.3 H (1.3-7.7) k/uL Monocytes # 1.1 H (0-1.0) k/uL PT (9.0-12.0) sec INR (<1.2) APTT (22.0-30.0) sec Carbon Dioxide 32 H (22-30) mmol/L Creatinine (0.66-1.25) mg/dL Glucose 126 H (74-99) mg/dL Alkaline Phosphatase 230 H (38-126) U/L Total Creatine Kinase 37 L (55-170) U/L 09/17/18 09/18/18 09/18/18 Range/Units 13:28 05:40 05:40 WBC 11.5 H (3.8-10.6) k/uL MCV 101.3 H (80.0-100.0) fL Neutrophils # 9.4 H (1.3-7.7) k/uL Monocytes # (0-1.0) k/uL PT 25.3 H (9.0-12.0) sec INR 2.6 H (<1.2) APTT 46.2 H (22.0-30.0) sec Carbon Dioxide 32 H (22-30) mmol/L Creatinine 0.59 L (0.66-1.25) mg/dL Glucose 121 H (74-99) mg/dL Alkaline Phosphatase (38-126) U/L Total Creatine Kinase (55-170) U/L Assessment and Plan Assessment: Systemic inflammatory response, with fever and leukocytosis, unknown source of infection. Improving with antibiotic Left shoulder pain, mostly related to his circvical arthroplathy Left upper Chest pain, mostly related to this shoulder pain, ED team called forder operator to rule out cardiac causes Acute COPD exacerbation, mild to moderate History of coronary artery disease History of congestive heart failure History of chronic atrial fibrillation/flutter on warfarin History of right leg DVT History of gastritis History of GI bleed History of colonic tubular disease Hypertension, essential Hyperlipidemia History of memory impairment History of COPD with FEV1 at 40% predicted current cigarette smoker Plan: This is a pleasant 68 years old male who presents because of left shoulder pain secondary to cervical degenartive disease and sepsis. cardiology team was consulted, and I agree with orthopedic team to evaluated for his left shoulder pain. continue with antibiotic, follow-up culture results of the blood in the sputum. We'll send urine analysis wound culture. Continue with a breathing treatment. Pain management Labs and medication were reviewed.. Continue same treatment. Continue with symptomatic treatment. Resume home medication. Monitor lytes and vitals. DVT and GI prophylaxis. Further recommendations of the clinical course of the patient DVT prophylaxis: Subcutaneous heparin GI Prophylaxis: Pepcid PT/OT: Pending Prognosis is guarded
[2018-09-18] MEDS: ASPIRIN 325 MG TAB PO SCH (10:50)
[2018-09-18] MEDS: NICOTINE 21MG/24HR PATCH TRANSDERM SCH (10:50)
[2018-09-18] MEDS: traMADol 50 MG TAB PO PRN ×2 (10:56→17:36)
[2018-09-18] MEDS ORDERED: BRIMONIDINE BOTH EYES SCH (11:00)
[2018-09-18] MEDS ORDERED: BRINZOLAMIDE 1% BOTH EYES SCH (11:00)
[2018-09-18 11:04] VITALS: BMI 33.2
[2018-09-18 11:19] LABS: INR 1.9 (<1.2); Prothrombin Time 18.6 sec (9.0-12.0)
[2018-09-18] MEDS: ALBUTEROL NEBULIZED 2.5 MG/3 ML INHALATION PRN ×3 (11:34→19:30)
[2018-09-18] MEDS: DORZOLAMIDE HCL 2% DROPS 10 ML BTL BOTH EYES SCH ×2 (11:49→20:44)
[2018-09-18] MEDS: LEVOTHYROXINE 50 MCG TAB PO SCH (11:49)
[2018-09-18] MEDS: CLOPIDOGREL 75 MG TAB PO SCH (11:49)
[2018-09-18] MEDS: BRIMONIDINE TARTRATE 0.2% DROPS 5 ML BTL BOTH EYES SCH ×2 (11:49→20:43)
[2018-09-18] MEDS: DILTIAZEM CD 240 MG CAP.ER.24H PO SCH (11:49)
--- NOTE | 2018-09-18 13:13 | ECHOF ---
Referral Reason: MEASUREMENTS -------- HEIGHT: 175.3 cm WEIGHT: 102.1 kg BP: 146/77 RVIDd: 2.8 cm (< 3.3) IVSd: 1.6 cm (0.6 - 1.1) LVIDd: 3.3 cm (3.9 - 5.3) LVPWd: 1.4 cm (0.6 - 1.1) IVSs: 1.8 cm LVIDs: 2.2 cm LVPWs: 2.1 cm Ao Diam: 3.7 cm (2.0 - 3.7) AV Cusp: 1.7 cm (1.5 - 2.6) LA Diam: 3.5 cm (2.7 - 3.8) MV EXCURSION: 15.249 mm (> 18.000) MV EF SLOPE: 70 mm/s (70 - 150) EPSS: 0.6 cm AV maxP.22 mmHg AV meanP.60 mmHg AR PHT: 431 ms RAP: 5.00 mmHg RVSP: 11.51 mmHg FINDINGS -------- Atrial fibrillation. This was a technically difficult study with suboptimal views. The left ventricular size is normal. There is moderate concentric left ventricular hypertrophy. O verall left ventricular systolic function is normal with, an EF between 60 - 65 %. The right ventricle is normal in size and function. The left atrial size is normal. The right atrium is normal in size. Lumason used Aortic valve is trileaflet and is mildly thickened. There is mild aortic valve sclerosis. Peak/me an gradient across the Aortic Valve is 15.22mmHg / 9.60mmHg. Mild mitral regurgitation is present. Mild tricuspid regurgitation present. The right ventricular systolic pressure, as measured by Doppl er, is 11.51mmHg. Pulmonic valve appears structurally normal. The aortic root size is normal. IVC Not well visulized. CONCLUSIONS -------- 1. Atrial fibrillation. 2. This was a technically difficult study with suboptimal views. 3. The left ventricular size is normal. 4. There is moderate concentric left ventricular hypertrophy. 5. Overall left ventricular systolic function is normal with, an EF between 60 - 65 %. 6. The right ventricle is normal in size and function. 7. The left atrial size is normal. 8. The right atrium is normal in size. 9. Lumason used 10. Aortic valve is trileaflet and is mildly thickened. 11. There is mild aortic valve sclerosis. 12. Peak/mean gradient across the Aortic Valve is 15.22mmHg / 9.60mmHg. 13. Mild mitral regurgitation is present. 14. Mild tricuspid regurgitation present. 15. The right ventricular systolic pressure, as measured by Doppler, is 11.51mmHg. 16. Pulmonic valve appears structurally normal. 17. The aortic root size is normal. 18. IVC Not well visulized. HEAD TELLER: Paz Payne RDCS
[2018-09-18] MEDS: FUROSEMIDE 40 MG TAB PO SCH (17:33)
[2018-09-18] MEDS: methylPREDNISolone SOD SUCCI 40 MG/ML 1 ML VIAL IV SCH (18:26)
--- NOTE | 2018-09-18 19:14 | P.CNOR ---
History of Present Illness - [facility] Consult date: 09/18/18 Consult reason: joint pain History of present illness: Patient is a 68-year-old male who presents [facility] with regards to left shoulder and chest pain. Patient developed pain on 09/16/2018 after coming home from being out with some friends. He woke up later that night the pain was severe. He reported to the hospital that night, he was admitted to the observation unit. Patient is being followed by internal medicine, he has had multiple imaging studies. Patient is evaluated today in the observation unit. Currently he was sleeping for 3 or 4 hours prior to my arrival, after awakening he did note again severe pain involving the left shoulder. He notes the pain more over the anterior superior aspect that radiates into his neck. He denies any shooting pain down the arm to the hand. He denies any paresthesias involving the left upper extremity. He states that the pain medication he has received hasn't helped much at this time. Patient denies any previous orthopedic surgery involving the left upper extremity. He denies any recent trauma. He denies any fevers or chills at this time. Denies any other orthopedic complaints at this time. Review of Systems Constitutional: Reports as per HPI Past Medical History Past Medical History: Atrial Fibrillation, Atrial Flutter, Coronary Artery Disease (CAD), Cancer, Chest Pain / Angina, Heart Failure, COPD, Deep Vein Thrombosis (DVT), Eye Disorder, GERD/Reflux, GI Bleed, Hearing Disorder / Deafness, Hyperlipidemia, Hypertension, Liver Disease, Memory Impairment, Pneumonia Additional Past Medical History / Comment(s): Stable dissection of the descending aorta, chronic atrial fibrillation and is anticoagulated with warfarin, aortic valve replacement with a bioprosthetic valve, pulmonary hypertension, chronic hypoxic respiratory failure with home O2 at , previous pneumonia 2008 and 2014, prostate cancer with prostatectomy, DVT R lower leg x2 , macular degeneration L eye, left arm fracture, chronic tinnitus in both ears, gastritis, lower GIm bleed, UTI, liver cirrhosis related to history of alcoholism, hepatitis C at age 14yrs. Last Myocardial Infarction Date:: unsure History of Any Multi-Drug Resistant Organisms: None Reported Year Discovered:: None MDRO Source:: None Past Surgical History: Cardiac Valve Replacement, Heart Catheterization, Heart Catheterization With Stent, Hernia Repair, Orthopedic Surgery, Prostate Surgery Additional Past Surgical History / Comment(s): Aortic valve replacement, prostatectomy, right inguinal hernia repair 2, bilateral knee arthroscopy, colonoscopy/polypectomy, EGD, right leg varicose vein stripping, removal of a blood clot from the right lower extremity, cervical surgery d/t injury in [place] and removal of shrapnel's from the right shoulder Past Anesthesia/Blood Transfusion Reactions: No Reported Reaction Date of Last Stent Placement:: 2016 Smoking Status: Current every day smoker - Past Family History Mother Family Medical History: Diabetes Mellitus Additional Family Medical History / Comment(s): Mother at age 74 from diabetic complications. Father Family Medical History: Congestive Heart Failure (CHF) Additional Family Medical History / Comment(s): Father at age 91 yrs. Medications and Allergies Home Medications Medication Instructions Recorded Confirmed Type Diltiazem HCl [Diltiazem 24Hr ER] 240 mg PO DAILY 08/23/14 09/17/18 History Metoprolol Tartrate [Lopressor] 100 mg PO BID 08/23/14 09/17/18 History Folic Acid 1 mg PO DAILY #1 tablet 09/10/14 09/17/18 Rx Budesonide-Formot 160-4.5 Mcg 2 puff INHALATION RT-BID 10/07/15 09/17/18 History [Symbicort 160-4.5 Mcg Inhaler] Thiamine [Vitamin B-1] 100 mg PO DAILY 11/18/15 09/17/18 History Tiotropium 18 Mcg/Puff [Spiriva] 1 cap INHALATION RT-DAILY 03/19/16 09/17/18 History Pregabalin [Lyrica] 50 mg PO BID 08/11/16 09/17/18 History Spironolactone [Aldactone] 25 mg PO DAILY 01/09/17 09/17/18 History Ferrous Sulfate [Iron (65 MG 325 mg PO DAILY #30 tab 03/06/17 09/17/18 Rx Elemental)] Furosemide [Lasix] 40 mg PO BID 09/23/17 09/17/18 History Pantoprazole [Protonix] 40 mg PO DAILY 09/23/17 09/17/18 History Vit C/E/Zn/Coppr/Lutein/Zeaxan 1 cap PO DAILY 09/23/17 09/17/18 History [Preservision Areds 2 Softgel] Albuterol Nebulized [Ventolin 2.5 mg INHALATION RT-Q4H PRN 11/04/17 09/17/18 History Nebulized] Clopidogrel [Plavix] 75 mg PO DAILY 11/04/17 09/17/18 History Atorvastatin Calcium [Lipitor] 40 mg PO HS 04/04/18 09/17/18 History Brimonidine 0.2%/Brinzolami 1% 1 drop BOTH EYES BID 04/04/18 09/17/18 History Ketorolac [Toradol] 60 mg IM DAILY 04/04/18 09/17/18 History Levothyroxine Sodium [Synthroid] 50 mcg PO DAILY 04/04/18 09/17/18 History Warfarin Sodium 6 mg PO SUTUTHSA 04/04/18 09/17/18 History Warfarin [Coumadin] 3 mg PO MOWEFR 08/03/18 09/17/18 History Allergies Allergy/AdvReac Type Severity Reaction Status Date / Time No Known Allergies Allergy Verified 09/17/18 12:51 Physical Examination Left upper extremity: No obvious open lesions or sores present throughout the extremity, no areas of erythema or soft tissue swelling Patient's active motion is limited at this time due to pain, he notes more over the anterior and superior aspect of the shoulder, does radiate up into the trapezius muscle and into the neck. Passive motion, I'm able to range from both with forward elevation and abduction with minimal discomfort No tenderness with palpation over the before meals joint and the posterior and lateral aspect of shoulder. There is some tenderness present over the anterior superior part of the shoulder. Range of motion of the elbow and wrist are intact, no tenderness with palpation throughout the wrist or elbow Sensory exam to light touch throughout extremities intact, radial pulses 2+ Results - Labs Labs: Abnormal Lab Results - Last 24 Hours (Table) 09/18/18 09/18/18 09/18/18 Range/Units 05:40 05:40 09:49 WBC 11.5 H (3.8-10.6) k/uL MCV 101.3 H (80.0-100.0) fL Neutrophils # 9.4 H (1.3-7.7) k/uL PT 18.6 H (9.0-12.0) sec INR 1.9 H (<1.2) Carbon Dioxide 32 H (22-30) mmol/L Creatinine 0.59 L (0.66-1.25) mg/dL Glucose 121 H (74-99) mg/dL H & H 09/17/18 09/18/18 Range/Units 13:28 05:40 Hgb 13.8 14.1 (13.0-17.5) gm/dL Hct 43.5 44.3 (39.0-53.0) % Coagulation 09/17/18 09/18/18 Range/Units 13:28 09:49 INR 2.6 H 1.9 H (<1.2) Result Diagrams: 09/18/18 05:40 09/18/18 05:40 - Diagnostic results Shoulder x-ray: report reviewed, image reviewed Shoulder CT: report reviewed, image reviewed Assessment and Plan Plan: Imaging: Multiple images were taken involving the cervical spine, and shoulder. CT and x -rays of the shoulder were negative for any acute fractures or dislocations. Evidence of before meals joint arthritis present. Cervical spine CT report demonstrated degenerative changes at C3-C4 and C5-C6, with moderate foraminal narrowing. Assessment: 1. Left shoulder/neck pain 2. 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 Cervical degenerative disc disease 4. Likely cervical radiculopathy 5. Multiple medical comorbidities Plan: I was able to discuss the case, including the physical exam findings and imaging studies might any Dr. Rivas. No orthopedic surgical intervention needed at this time This is likely a cervical radiculopathy, recommend steroid tapering dose from internal medicine Patient may benefit from further workup from either neurosurgery or orthopedic spine surgery Pain control via medical recommendations We'll be available for any further questions regarding this patient Time with Patient: Less than 30
[2018-09-18] MEDS: SYMBICORT 160-4.5 MCG INHALER INHALATION SCH (19:30)
[2018-09-18 20:26] LABS: Glucose,Whole Blood 182 mg/dL (75-99)
[2018-09-18] MEDS: METOPROLOL TARTRATE 50 MG TAB PO SCH (20:40)
[2018-09-18] MEDS: ATORVASTATIN 40 MG TAB PO SCH (20:40)
[2018-09-18] MEDS: PREGABALIN 50 MG CAP PO SCH (20:41)
[2018-09-18] MEDS: INSULIN ASPART (NovoLOG) 100 UNIT/ML VIAL SQ SCH (20:49)
[2018-09-18] MEDS ORDERED: VANCOMYCIN IV PER PHARMACY 1 EACH MISC MISCELLANE PRN (22:43)
[2018-09-19] MEDS: VANCOMYCIN 1,500 MG in SODIUM CHLORIDE 0.9% 250 ML IVPB SCH ×2 (00:02→12:42)
[2018-09-19] MEDS: NITROGLYCERIN OINT 1 INCH/GM PACKET TOPICAL SCH ×2 (00:03→05:24)
[2018-09-19] MEDS: methylPREDNISolone SOD SUCCI 40 MG/ML 1 ML VIAL IV SCH ×4 (00:03→17:27)
[2018-09-19 04:55] LABS: Hemoglobin A1C 5.5 % (4.0-6.0)
[2018-09-19] MEDS: LEVOTHYROXINE 50 MCG TAB PO SCH (05:29)
[2018-09-19 06:45] LABS: Glucose,Whole Blood 190 mg/dL (75-99)
[2018-09-19 06:50] LABS: Basophils % (A) 0 %; Eosinophils # (A) 0.1 k/uL (0-0.7); Eosinophils % (A) 0 %; HCT 42.6 % (39.0-53.0); HGB 13.7 gm/dL (13.0-17.5); Lymphocytes # (A) 0.6 k/uL (1.0-4.8); Lymphocytes % (A) 5 %; MCH 32.9 pg (25.0-35.0); MCHC 32.2 g/dL (31.0-37.0); Macrocytosis Slight; Mean Platelet Volume 7.3; Monocytes # (A) 0.3 k/uL (0-1.0); Monocytes % (A) 3 %; Neutrophils # (A) 11.4 k/uL (1.3-7.7); Neutrophils % (A) 92 %; Platelet Count 164 k/uL (150-450); RBC 4.17 m/uL (4.30-5.90); RDW 14.3 % (11.5-15.5); WBC 12.4 k/uL (3.8-10.6)
[2018-09-19 07:09] LABS: Anion Gap 8 mmol/L; Blood Urea Nitrogen 15 mg/dL (9-20); Calcium 9.2 mg/dL (8.4-10.2); Carbon Dioxide 33 mmol/L (22-30); Chloride 98 mmol/L (98-107); Glucose 205 mg/dL (74-99); Potassium 4.5 mmol/L (3.5-5.1); Sodium 139 mmol/L (137-145)
[2018-09-19] MEDS: IPRATROPIUM 0.5 MG/2.5 ML NEBU INHALATION SCH ×4 (07:57→21:22)
[2018-09-19] MEDS: SPIRONOLACTONE 25 MG TAB PO SCH (08:50)
[2018-09-19] MEDS: THIAMINE 100 MG TAB PO SCH (08:50)
[2018-09-19] MEDS: FERROUS SULFATE 325 MG TAB PO SCH (08:50)
[2018-09-19] MEDS: FUROSEMIDE 40 MG TAB PO SCH ×2 (08:50→15:14)
[2018-09-19] MEDS: CLOPIDOGREL 75 MG TAB PO SCH (08:50)
[2018-09-19] MEDS: PREGABALIN 50 MG CAP PO SCH ×2 (08:50→20:17)
[2018-09-19] MEDS: ASPIRIN 325 MG TAB PO SCH (08:50)
[2018-09-19] MEDS: DILTIAZEM CD 240 MG CAP.ER.24H PO SCH (08:51)
[2018-09-19] MEDS: INSULIN ASPART (NovoLOG) 100 UNIT/ML VIAL SQ SCH ×4 (08:51→21:59)
[2018-09-19] MEDS: NICOTINE 21MG/24HR PATCH TRANSDERM SCH (08:51)
[2018-09-19] MEDS: PANTOPRAZOLE 40 MG TABLET PO SCH (08:53)
[2018-09-19] MEDS: METOPROLOL TARTRATE 50 MG TAB PO SCH ×2 (08:53→20:17)
[2018-09-19] MEDS: DORZOLAMIDE HCL 2% DROPS 10 ML BTL BOTH EYES SCH ×2 (08:54→20:10)
[2018-09-19] MEDS: BRIMONIDINE TARTRATE 0.2% DROPS 5 ML BTL BOTH EYES SCH ×2 (08:54→20:11)
[2018-09-19] MEDS ORDERED: THIAMINE 100 MG/ML 2 ML VIAL IM STA (11:12)
[2018-09-19] MEDS ORDERED: LORazepam 2 MG/ML INJ IV PRN ×3 (11:12)
--- NOTE | 2018-09-19 11:58 | P.PN ---
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 He follows in the office with Dr. Sanabria. He is seen and examined resting comfortably in bed in no acute distress. He has been seen by orthopedic surgeons and diagnosed with cervical radiculopathy and started on steroids. He states this has significant helped his pain however he does still have some pain when he raises his left arm. Echo obtained yesterday and reviewed reveals preserved LV function with EF 60-65%, mild aortic valve stenosis with mean gradient of 9.6 mmHg and mild TR. Laboratory data reviewed, WBC 12.4, hgb 13.7, plt 164, sodium 139, potassium 4.5, creatinine 0.59, cardiac enzymes negative x2. Blood pressure 115/72 heart rate 68 afebrile maintaining oxygen saturation on nasal cannula. Currently maintained on atorvastatin 40 mg daily, aspirin 325 mg daily , plavix 75 mg daily, diltiazem 240 mg daily, lasix 40 mg BID, lopressor 100 mg BID, aldactone 25 mg daily and coumadin. GENERAL: Well-appearing, well-nourished and in no acute distress. NECK: Supple without JVD or thyromegaly. LUNGS: Breath sounds clear to auscultation bilaterally. Respiration equal and unlabored. No wheezes, rales or rhonchi. Diminished bilaterally. HEART: Irregular rate and rhythm with systolic ejection murmur at the base, no rubs or gallops. S1 and S2 heard. EXTREMITIES: Normal range of motion, no edema. No clubbing or cyanosis. Peripheral pulses intact. ASSESSMENT Left shoulder discomfort. 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 Stable from a cardiac perspective. Lifestyle modifications recommended for smoking and alcohol cessation. Follow up in the office with Dr. Sanabria upon discharge. Nurse Practitioner note has been reviewed, I agree with a documented findings and plan of care. Patient was seen and examined. Objective - Vital Signs Vital signs: Vital Signs Temp 98.5 F 09/19/18 07:30 Pulse 92 09/19/18 11:25 Resp 14 09/19/18 07:58 BP 115/72 09/19/18 07:30 Pulse Ox 97 09/19/18 07:55 Intake & Output 09/18/18 09/19/18 09/19/18 18:59 06:59 18:59 Intake Total 236 Balance 236 Intake: Oral 236 Other: Voiding Method Toilet Toilet - Labs CBC & Chem 7: 09/19/18 06:35 09/19/18 06:35 Labs: Abnormal Lab Results - Last 24 Hours (Table) 09/18/18 09/19/18 09/19/18 Range/Units 20:24 06:35 06:35 WBC 12.4 H (3.8-10.6) k/uL RBC 4.17 L (4.30-5.90) m/uL MCV 102.0 H (80.0-100.0) fL Neutrophils # 11.4 H (1.3-7.7) k/uL Lymphocytes # 0.6 L (1.0-4.8) k/uL Carbon Dioxide 33 H (22-30) mmol/L Creatinine 0.59 L (0.66-1.25) mg/dL Glucose 205 H (74-99) mg/dL POC Glucose (mg/dL) 182 H (75-99) mg/dL 09/19/18 Range/Units 06:42 WBC (3.8-10.6) k/uL RBC (4.30-5.90) m/uL MCV (80.0-100.0) fL Neutrophils # (1.3-7.7) k/uL Lymphocytes # (1.0-4.8) k/uL Carbon Dioxide (22-30) mmol/L Creatinine (0.66-1.25) mg/dL Glucose (74-99) mg/dL POC Glucose (mg/dL) 190 H (75-99) mg/dL Microbiology - Last 24 Hours (Table) 09/18/18 00:44 Blood Culture Gram Stain - Preliminary Blood Blood Culture - Preliminary Enterococcus spec 09/18/18 00:44 Blood Culture - Final Blood
[2018-09-19 12:00] LABS: Glucose,Whole Blood 181 mg/dL (75-99)
[2018-09-19] MEDS: FOLIC ACID 1 MG TAB PO SCH (12:43)
[2018-09-19] MEDS: SYMBICORT 160-4.5 MCG INHALER INHALATION SCH ×2 (15:11→21:22)
[2018-09-19 16:43] LABS: Glucose,Whole Blood 158 mg/dL (75-99)
[2018-09-19] MEDS: WARFARIN 3 MG TAB PO SCH (17:28)
[2018-09-19 17:35] LABS: INR 1.5 (<1.2); Prothrombin Time 14.7 sec (9.0-12.0)
--- NOTE | 2018-09-19 19:16 | P.PN ---
Subjective This is a pleasant 68 years old male with past medical history of congestive heart failure, atrial fibrillation/flutter on warfarin, coronary artery disease , prostate cancer status post prostatectomy, right lower extremity DVT and gastritis, GI bleed, liver cirrhosis, COPD with FEV1 a 40% predicted, GERD, hyperlipidemia, hypertension, memory impairment. The patient to follow up in the [facility]. He presents because of left shoulder pain of one-day duration with difficulty in raising his left hand above his head. On admission he had fever of 100, rest of vitals looks stable, leukocytosis of 15.3. INR 2.6. BMP was unremarkable with creatinine 0.9. Liver enzymes were not elevated. Chest x-ray: Showed increased interstitial markings suspicious for mild pulmonary congestion without overt heart failure as per radiology report. Negative x-ray of the left shoulder for acute fracture or acute abnormality. EKG showing atrial fibrillation with heart rate at 85 bpm 09/18/2018 Patient is still complaining of from significant pain in his left shoulders with milder pain in the back of the neck which says his more chronic area patient denies trauma to his left shoulder. Patient has difficulty raising his left arm above his shoulder and head. No signs of deformity or inflammation or swelling. Shoulder x-rays and CT scans were negative. Patient states that he smokes about 1 pack and half per day and he drinks alcohol on a regular basis. He had fever off 100.8 on admissions with mild leukocytosis at 15 K, not coming down to 11 K after patient was started on ceftriaxone. Is still a bit tachycardic. He has some elements of COPD, but with no cough and doesn't make much sclerae. His INR today is 2.6 and rest of the BMP was unremarkable with creatinine 0.5. Cardiology and orthopedic team were consulted from emergency room. CT of the cervical spine showing moderate foraminal narrowing on the left C5-6 and C3-4. 09/19/2018 Patient still feeling pain in his left shoulder, and he asked for pain medication to control it. He denies chest pain. No nausea or vomiting. Patient has been afebrile since admission when he had fever of 100.8. He had mild leukocytosis coming down from 15 K down to 12.4 K. However blood culture came back today positive for enterococcus species. Infectious disease team have been consulted and their input is appreciated. Following the final results of the culture and adjust medication of antibiotic accordingly and of the recommendation. Patient might need long-term antibiotic as he has an aortic valve replacement. Cardiology evaluated and cleared the patient as there is some stable from the standpoint. Orthopedic team evaluated the patient as well and recommended tapered dose of steroids for his cervical radiculopathy. patient was placed on serial protocol for his history of alcoholism. Review of systems CONSTITUTIONAL: No fever, no malaise, no fatigue. HEENT: No recent visual problems or hearing problems. Denied any sore throat. CARDIOVASCULAR: No orthopnea, PND, no palpitations, no syncope. PULMONARY: No shortness of breath, no cough, no hemoptysis. GASTROINTESTINAL: No diarrhea, no nausea, no vomiting, no abdominal pain. Normoactive bowel sounds. NEUROLOGICAL: No headaches, no weakness, no numbness. HEMATOLOGICAL: Denies any bleeding or petechiae. GENITOURINARY: Denies any burning micturition, frequency, or urgency. ENDOCRINE: Denies any polyuria or polydipsia. Medication: Warfarin, aspirin, ceftriaxone, morphine, nicotine patch, warfarin, Plavix, Spiriva, Aldactone, Lyrica, Protonix, Lopressor, Synthroid, Lasix, folic acid, vancomycin, Protonix, Ativan, thiamine, folic acid Objective - Vital Signs Vital signs: Vital Signs Temp 98.4 F 09/19/18 15:44 Pulse 68 09/19/18 15:44 Resp 18 09/19/18 15:44 BP 110/58 09/19/18 15:44 Pulse Ox 90 L 09/19/18 15:44 Intake & Output 09/19/18 09/19/18 09/20/18 06:59 18:59 06:59 Intake Total 976 Balance 976 Intake: Oral 976 Other: Voiding Method Toilet Toilet - Exam GENERAL: The patient is alert and oriented x3, not in any acute distress. Well developed, well nourished. HEENT: Pupils are round and equally reacting to light. EOMI. No scleral icterus. No conjunctival pallor. Normocephalic, atraumatic. No pharyngeal erythema. No thyromegaly. CARDIOVASCULAR: S1 and S2 present. No murmurs, rubs, or gallops. PULMONARY: Chest is clear to auscultation, no wheezing or crackles. ABDOMEN: Soft, nontender, nondistended, normoactive bowel sounds. No palpable organomegaly. -MUSCULOSKELETAL: No joint swelling or deformity. Patient has limitation in dressing his left arm above his shoulder and head. Same as yesterday EXTREMITIES: No cyanosis, clubbing, or pedal edema. NEUROLOGICAL: Gross neurological examination did not reveal any focal deficits. SKIN: No rashes. - Labs CBC & Chem 7: 09/19/18 06:35 09/19/18 06:35 Labs: Abnormal Lab Results - Last 24 Hours (Table) 09/18/18 09/19/18 09/19/18 Range/Units 20:24 06:35 06:35 WBC 12.4 H (3.8-10.6) k/uL RBC 4.17 L (4.30-5.90) m/uL MCV 102.0 H (80.0-100.0) fL Neutrophils # 11.4 H (1.3-7.7) k/uL Lymphocytes # 0.6 L (1.0-4.8) k/uL PT (9.0-12.0) sec INR (<1.2) Carbon Dioxide 33 H (22-30) mmol/L Creatinine 0.59 L (0.66-1.25) mg/dL Glucose 205 H (74-99) mg/dL POC Glucose (mg/dL) 182 H (75-99) mg/dL 09/19/18 09/19/18 09/19/18 Range/Units 06:35 06:42 11:58 WBC (3.8-10.6) k/uL RBC (4.30-5.90) m/uL MCV (80.0-100.0) fL Neutrophils # (1.3-7.7) k/uL Lymphocytes # (1.0-4.8) k/uL PT 14.7 H (9.0-12.0) sec INR 1.5 H (<1.2) Carbon Dioxide (22-30) mmol/L Creatinine (0.66-1.25) mg/dL Glucose (74-99) mg/dL POC Glucose (mg/dL) 190 H 181 H (75-99) mg/dL 09/19/18 Range/Units 16:41 WBC (3.8-10.6) k/uL RBC (4.30-5.90) m/uL MCV (80.0-100.0) fL Neutrophils # (1.3-7.7) k/uL Lymphocytes # (1.0-4.8) k/uL PT (9.0-12.0) sec INR (<1.2) Carbon Dioxide (22-30) mmol/L Creatinine (0.66-1.25) mg/dL Glucose (74-99) mg/dL POC Glucose (mg/dL) 158 H (75-99) mg/dL Microbiology - Last 24 Hours (Table) 09/18/18 00:44 Blood Culture Gram Stain - Preliminary Blood Blood Culture - Preliminary Enterococcus spec 09/18/18 00:44 Blood Culture - Final Blood Assessment and Plan Assessment: Systemic inflammatory response, with fever and leukocytosis, unknown source of infection. Enterococcus septicemia Left shoulder pain, mostly related to his circvical radiculopathy Acute COPD exacerbation, mild to moderate Alcohol abuse, with risk of alcohol withdrawal and delirium tremens. History of coronary artery disease History of congestive heart failure History of chronic atrial fibrillation/flutter on warfarin History of right leg DVT History of gastritis History of GI bleed History of colonic tubular disease Hypertension, essential Hyperlipidemia History of memory impairment History of COPD with FEV1 at 40% predicted current cigarette smoker Plan: This is a pleasant 68 years old male who presents because of left shoulder pain secondary to cervical degenartive disease and sepsis. cardiology team was consulted, and I agree with orthopedic team to evaluated for his left shoulder pain. continue with antibiotic, follow-up culture results of the blood in the sputum. We'll send urine analysis wound culture. Continue with a breathing treatment. Pain management Labs and medication were reviewed.. Continue same treatment. Continue with symptomatic treatment. Resume home medication. Monitor lytes and vitals. DVT and GI prophylaxis. Further recommendations of the clinical course of the patient DVT prophylaxis: On warfarin GI Prophylaxis: Pepcid PT/OT: Pending Prognosis is guarded
[2018-09-19] MEDS: SODIUM CHLORIDE 0.9% 1,000 ML IV SCH (20:02)
[2018-09-19] MEDS: ATORVASTATIN 40 MG TAB PO SCH (20:17)
[2018-09-19 20:38] LABS: Glucose,Whole Blood 167 mg/dL (75-99)
--- NOTE | 2018-09-19 20:56 | P.CONS ---
History of Present Illness - Reason for Consult Consult date: 09/19/18 - Chief Complaint left shoulder pain - History of Present Illness 68-year-old male presents to the hospital emergency center complaining of severe pain to his left shoulder that radiates to his chest on the left side.with his history of significantUnderlying cardiovascular disease, history of prior cardiac surgery he counseling presents to the emergency center with concerns to a new cardiac event. The patient relates that the night before the pain started he was with his friends doing a [employer] tournament. Does not relate to how much alcohol he ingested. He relates he woke up with severe pain to his left shoulder such that he couldn' t even move his arm or shoulder or the left side of his neck without severe pain. Because it worsened his family brought him to the emergency center and he has constantly been admitted. It is noted that his presentation he had a fever and leukocytosis. Because of this blood cultures were performed in our showing evidence of a positive nature with enterococcus species. Infectious disease consultation was requested. The patient relates that with current interventions which have included some steroid therapy is feeling somewhat better.He has been evaluated by orthopedic surgery and concern is for a cervical radiculopathy and was aggravated by the repetitive motion of the game that he was playing the night before. Before she is feeling slightly better this afternoon but does cooperate he has a history of an aortic valve replacement. Review of Systems HEENT:Denies headache or acute visual change. Denies sinus or mouth discomforts. as noted has had significant pain to anterior chest wall and to the left neck. Denies significant oral cavity pain. Denies difficulty on swallowing. Lungs: Denies significant shortness of breath, cough, sputum production, or hemoptysis. Cardiovascular: Denies significant shortness of breath, chest pain, chest wall pain, orthopnea, dyspnea on exertion, syncope Gastrointestinal:Denies nausea, vomiting, diarrhea, constipation, hematemesis, melena, hematochezia. No no significant change of bowel habit noticed. Musculoskeletal: as per the HPI severe pain to the Skin: Denies new rash or lesions. No new ulcers or wounds are related.. Neuro: Denies headache or visual change. Denies any new onset weakness or difficulty with ambulation. Denies falls or seizures. Psychiatric:Denies anxiety or depression. Endocrine: fatigue is chronic weight is stable Past Medical History Past Medical History: Atrial Fibrillation, Atrial Flutter, Coronary Artery Disease (CAD), Cancer, Chest Pain / Angina, Heart Failure, COPD, Deep Vein Thrombosis (DVT), Eye Disorder, GERD/Reflux, GI Bleed, Hearing Disorder / Deafness, Hyperlipidemia, Hypertension, Liver Disease, Memory Impairment, Pneumonia Additional Past Medical History / Comment(s): Stable dissection of the descending aorta, chronic atrial fibrillation and is anticoagulated with warfarin, aortic valve replacement with a bioprosthetic valve, pulmonary hypertension, chronic hypoxic respiratory failure with home O2 at , previous pneumonia 2008 and 2014, prostate cancer with prostatectomy, DVT R lower leg x2 , macular degeneration L eye, left arm fracture, chronic tinnitus in both ears, gastritis, lower GIm bleed, UTI, liver cirrhosis related to history of alcoholism, hepatitis C at age 14yrs. Last Myocardial Infarction Date:: unsure History of Any Multi-Drug Resistant Organisms: None Reported Year Discovered:: None MDRO Source:: None Past Surgical History: Cardiac Valve Replacement, Heart Catheterization, Heart Catheterization With Stent, Hernia Repair, Orthopedic Surgery, Prostate Surgery Additional Past Surgical History / Comment(s): Aortic valve replacement, prostatectomy, right inguinal hernia repair 2, bilateral knee arthroscopy, colonoscopy/polypectomy, EGD, right leg varicose vein stripping, removal of a blood clot from the right lower extremity, cervical surgery d/t injury in [place] and removal of shrapnel's from the right shoulder Past Anesthesia/Blood Transfusion Reactions: No Reported Reaction Date of Last Stent Placement:: 2016 Additional Psychological History / Comment(s): grandson lives with the patient. 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 No recent international travel. did serve in [place] was injured there. History of chronic tobacco use active and alcohol use active, old drug use Smoking Status: Current every day smoker - Past Family History Mother Family Medical History: Diabetes Mellitus Additional Family Medical History / Comment(s): Mother at age 74 from diabetic complications. Father Family Medical History: Congestive Heart Failure (CHF) Additional Family Medical History / Comment(s): Father at age 91 yrs. Medications and Allergies Home Medications and Allergies Comment(s): Current Medications Acetaminophen (Tylenol Tab) 325 mg PO Q6HR PRN PRN Reason: Fever and/ or MILD Pain Last Admin: 09/17/18 18:55 Dose: 325 mg Albuterol Sulfate (Ventolin Nebulized) 2.5 mg INHALATION RT-Q4H PRN PRN Reason: Shortness Of Breath Last Admin: 09/18/18 19:30 Dose: 2.5 mg Atorvastatin Calcium (Lipitor) 40 mg PO HS [facility] Last Admin: 09/18/18 20:40 Dose: 40 mg Brimonidine Tartrate (Alphagan P 0.2% Ophth Soln) 1 drops BOTH EYES BID [facility] Last Admin: 09/19/18 08:54 Dose: 1 drops Budesonide/Formoterol Fumarate (Symbicort 160-4.5 Mcg Inhaler) 2 puff INHALATION RT-BID [facility] Last Admin: 09/19/18 15:11 Dose: Not Given Clopidogrel Bisulfate (Plavix) 75 mg PO DAILY [facility] Last Admin: 09/19/18 08:50 Dose: 75 mg Diltiazem HCl (Cardizem Cd) 240 mg PO DAILY [facility] Last Admin: 09/19/18 08:51 Dose: 240 mg Dorzolamide HCl (Trusopt) 1 drops BOTH EYES BID [facility] Last Admin: 09/19/18 08:54 Dose: 1 drops Ferrous Sulfate (Feosol) 325 mg PO 1200 [facility] Last Admin: 09/19/18 08:50 Dose: 325 mg Folic Acid (Folic Acid) 1 mg PO 1200 [facility] Last Admin: 09/19/18 12:43 Dose: Not Given Furosemide (Lasix) 40 mg PO BID@0900,1600 [facility] Last Admin: 09/19/18 15:14 Dose: 40 mg Ceftriaxone Sodium 1 gm/ (Sodium Chloride) 50 mls @ 100 mls/hr IVPB Q24HR [facility] Last Admin: 09/19/18 08:54 Dose: 100 mls/hr Vancomycin HCl 1,500 mg/ (Sodium Chloride) 250 mls @ 125 mls/hr IVPB Q12H [facility] Last Admin: 09/19/18 12:42 Dose: 125 mls/hr Sodium Chloride (Saline 0.9%) 1,000 mls @ 50 mls/hr IV .Q20H [facility] Insulin Aspart (Novolog) 0 unit SQ ACHS [facility]; Protocol Last Admin: 09/19/18 17:27 Dose: 2 unit Ipratropium [place] (Atrovent Nebulized) 0.5 mg INHALATION RT-QID [facility] Last Admin: 09/19/18 15:21 Dose: 0.5 mg Levothyroxine Sodium (Synthroid) 50 mcg PO 0630 [facility] Last Admin: 09/19/18 05:29 Dose: 50 mcg Lorazepam (Ativan) 1 mg IV Q2HR PRN PRN Reason: CIWA 8 or 9 Lorazepam (Ativan) 1 mg IV Q1HR PRN PRN Reason: CIWA 10 to 15 Lorazepam (Ativan) 2 mg IV Q10M PRN PRN Reason: CIWA 16 or higher Stop: 09/21/18 11:12 Methylprednisolone Sodium Succinate (Solu-Medrol) 40 mg IV Q6HR [facility] Last Admin: 09/19/18 17:27 Dose: 40 mg Metoprolol Tartrate (Lopressor) 100 mg PO BID [facility] Last Admin: 09/19/18 08:53 Dose: 100 mg Morphine Sulfate (Morphine Sulfate (Inj)) 4 mg IVP Q4HR PRN PRN Reason: Severe Pain Nicotine (Habitrol 21mg/24hr Patch) 1 patch TRANSDERM DAILY [facility] Last Admin: 09/19/18 08:51 Dose: Not Given Nitroglycerin (Nitrostat) 0.4 mg SUBLINGUAL Q5M PRN PRN Reason: Chest Pain Pantoprazole Sodium (Protonix) 40 mg PO AC-BRKFST [facility] Last Admin: 09/19/18 08:53 Dose: 40 mg Pregabalin (Lyrica) 50 mg PO BID [facility] Last Admin: 09/19/18 08:50 Dose: 50 mg Sodium Chloride (Saline Flush) 10 ml IV BID [facility] Last Admin: 09/19/18 09:02 Dose: Not Given Spironolactone (Aldactone) 25 mg PO DAILY [facility] Last Admin: 09/19/18 08:50 Dose: 25 mg Thiamine HCl (Vitamin B-1) 100 mg PO 1200 [facility] Last Admin: 09/19/18 08:50 Dose: 100 mg Tramadol HCl (Ultram) 50 mg PO QID PRN PRN Reason: MODERATE Pain Last Admin: 09/18/18 17:36 Dose: 50 mg Warfarin Sodium (Coumadin) 6 mg PO SuTuThSa@1800 [facility] Last Admin: 09/19/18 17:28 Dose: 6 mg Home Medications Medication Instructions Recorded Confirmed Type Diltiazem HCl [Diltiazem 24Hr ER] 240 mg PO DAILY 08/23/14 09/17/18 History Metoprolol Tartrate [Lopressor] 100 mg PO BID 08/23/14 09/17/18 History Folic Acid 1 mg PO DAILY #1 tablet 09/10/14 09/17/18 Rx Budesonide-Formot 160-4.5 Mcg 2 puff INHALATION RT-BID 10/07/15 09/17/18 History [Symbicort 160-4.5 Mcg Inhaler] Thiamine [Vitamin B-1] 100 mg PO DAILY 11/18/15 09/17/18 History Tiotropium 18 Mcg/Puff [Spiriva] 1 cap INHALATION RT-DAILY 03/19/16 09/17/18 History Pregabalin [Lyrica] 50 mg PO BID 08/11/16 09/17/18 History Spironolactone [Aldactone] 25 mg PO DAILY 01/09/17 09/17/18 History Ferrous Sulfate [Iron (65 MG 325 mg PO DAILY #30 tab 03/06/17 09/17/18 Rx Elemental)] Furosemide [Lasix] 40 mg PO BID 09/23/17 09/17/18 History Pantoprazole [Protonix] 40 mg PO DAILY 09/23/17 09/17/18 History Vit C/E/Zn/Coppr/Lutein/Zeaxan 1 cap PO DAILY 09/23/17 09/17/18 History [Preservision Areds 2 Softgel] Albuterol Nebulized [Ventolin 2.5 mg INHALATION RT-Q4H PRN 11/04/17 09/17/18 History Nebulized] Clopidogrel [Plavix] 75 mg PO DAILY 11/04/17 09/17/18 History Atorvastatin Calcium [Lipitor] 40 mg PO HS 04/04/18 09/17/18 History Brimonidine 0.2%/Brinzolami 1% 1 drop BOTH EYES BID 04/04/18 09/17/18 History Ketorolac [Toradol] 60 mg IM DAILY 04/04/18 09/17/18 History Levothyroxine Sodium [Synthroid] 50 mcg PO DAILY 04/04/18 09/17/18 History Warfarin Sodium 6 mg PO SUTUTHSA 04/04/18 09/17/18 History Warfarin [Coumadin] 3 mg PO MOWEFR 08/03/18 09/17/18 History Allergies Allergy/AdvReac Type Severity Reaction Status Date / Time No Known Allergies Allergy Verified 09/17/18 12:51 Physical Exam Vitals: Vital Signs Temp Pulse Pulse Pulse Pulse Resp BP 09/19/18 15:44 98.4 F 68 18 110/58 09/19/18 15:30 78 09/19/18 15:23 76 09/19/18 12:00 98.5 F 70 18 98/59 09/19/18 11:25 92 09/19/18 11:17 86 09/19/18 08:10 98 09/19/18 07:58 96 14 09/19/18 07:55 09/19/18 07:30 98.5 F 68 18 115/72 09/19/18 03:58 98.6 F 88 16 112/57 09/19/18 03:29 84 16 09/19/18 00:00 97 97 18 09/18/18 23:47 99.1 F 104 H 18 119/78 09/18/18 21:41 09/18/18 20:00 106 H 17 09/18/18 19:54 98.9 F 100 18 148/80 09/18/18 19:40 101 H 09/18/18 19:30 103 H Pulse Ox 09/19/18 15:44 90 L 09/19/18 15:30 09/19/18 15:23 09/19/18 12:00 92 L 09/19/18 11:25 09/19/18 11:17 09/19/18 08:10 09/19/18 07:58 09/19/18 07:55 97 09/19/18 07:30 95 09/19/18 03:58 92 L 09/19/18 03:29 09/19/18 00:00 09/18/18 23:47 92 L 09/18/18 21:41 98 09/18/18 20:00 09/18/18 19:54 92 L 09/18/18 19:40 09/18/18 19:30 Intake and Output 09/19/18 09/19/18 09/19/18 06:59 14:59 22:59 Intake Total 620 356 Balance 620 356 Intake: Oral 620 356 Other: Voiding Method Toilet Toilet Toilet 68-year-old male who is comfortable HEENT: Anicteric conjunctiva are pink and moist nasal mucosa grossly intact without significant lesions, there is no thrush. Neck: The neck is supple without significant lymphadenopathy or thyromegaly. Lungs: Good bilateral air entry without significant crackles or wheezing. There is no significant bronchial sounds. There is no egophony or dullness. Heart: Regular rate and rhythm with an audible S1-S2, no S3 no S4. There is no significant murmur click or rub, PMI was nondisplaced. Abdomen: Positive bowel sounds soft and nontender without palpable masses or organomegaly. There was no guarding or rebound. Extremities:Right upper extremity has no tenderness in has good range of motion. Left arm has improved range of motion from admission was still has some tenderness with abduction. The lower extremities have chronic venous stasis changes but no open ulcerations. lower extremities are cool but not frankly cold. Neuro: Awake alert oriented to person place and time. There are no acute new gross focal sensory motor deficits. Results CBC & Chem 7: 09/19/18 06:35 09/19/18 06:35 Labs: Abnormal Lab Results - Last 24 Hours (Table) 09/18/18 09/19/18 09/19/18 Range/Units 20:24 06:35 06:35 WBC 12.4 H (3.8-10.6) k/uL RBC 4.17 L (4.30-5.90) m/uL MCV 102.0 H (80.0-100.0) fL Neutrophils # 11.4 H (1.3-7.7) k/uL Lymphocytes # 0.6 L (1.0-4.8) k/uL PT (9.0-12.0) sec INR (<1.2) Carbon Dioxide 33 H (22-30) mmol/L Creatinine 0.59 L (0.66-1.25) mg/dL Glucose 205 H (74-99) mg/dL POC Glucose (mg/dL) 182 H (75-99) mg/dL 09/19/18 09/19/18 09/19/18 Range/Units 06:35 06:42 11:58 WBC (3.8-10.6) k/uL RBC (4.30-5.90) m/uL MCV (80.0-100.0) fL Neutrophils # (1.3-7.7) k/uL Lymphocytes # (1.0-4.8) k/uL PT 14.7 H (9.0-12.0) sec INR 1.5 H (<1.2) Carbon Dioxide (22-30) mmol/L Creatinine (0.66-1.25) mg/dL Glucose (74-99) mg/dL POC Glucose (mg/dL) 190 H 181 H (75-99) mg/dL 09/19/18 Range/Units 16:41 WBC (3.8-10.6) k/uL RBC (4.30-5.90) m/uL MCV (80.0-100.0) fL Neutrophils # (1.3-7.7) k/uL Lymphocytes # (1.0-4.8) k/uL PT (9.0-12.0) sec INR (<1.2) Carbon Dioxide (22-30) mmol/L Creatinine (0.66-1.25) mg/dL Glucose (74-99) mg/dL POC Glucose (mg/dL) 158 H (75-99) mg/dL Microbiology - Last 24 Hours (Table) 09/18/18 00:44 Blood Culture Gram Stain - Preliminary Blood Blood Culture - Preliminary Enterococcus spec 09/18/18 00:44 Blood Culture - Final Blood Laboratory Results WBC 12.4 k/uL (3.8-10.6) H 09/19/18 06:35 RBC 4.17 m/uL (4.30-5.90) L 09/19/18 06:35 Hgb 13.7 gm/dL (13.0-17.5) 09/19/18 06:35 Hct 42.6 % (39.0-53.0) 09/19/18 06:35 MCV 102.0 fL (80.0-100.0) H 09/19/18 06:35 MCH 32.9 pg (25.0-35.0) 09/19/18 06:35 MCHC 32.2 g/dL (31.0-37.0) 09/19/18 06:35 RDW 14.3 % (11.5-15.5) 09/19/18 06:35 Plt Count 164 k/uL (150-450) 09/19/18 06:35 Neutrophils % 92 % 09/19/18 06:35 Lymphocytes % 5 % 09/19/18 06:35 Monocytes % 3 % 09/19/18 06:35 Eosinophils % 0 % 09/19/18 06:35 Basophils % 0 % 09/19/18 06:35 Neutrophils # 11.4 k/uL (1.3-7.7) H 09/19/18 06:35 Lymphocytes # 0.6 k/uL (1.0-4.8) L 09/19/18 06:35 Monocytes # 0.3 k/uL (0-1.0) 09/19/18 06:35 Eosinophils # 0.1 k/uL (0-0.7) 09/19/18 06:35 Basophils # 0.0 k/uL (0-0.2) 09/19/18 06:35 Macrocytosis Slight 09/19/18 06:35 PT 14.7 sec (9.0-12.0) H 09/19/18 06:35 INR 1.5 (<1.2) H 09/19/18 06:35 APTT 46.2 sec (22.0-30.0) H 09/17/18 13:28 Sodium 139 mmol/L (137-145) 09/19/18 06:35 Potassium 4.5 mmol/L (3.5-5.1) 09/19/18 06:35 Chloride 98 mmol/L (98-107) 09/19/18 06:35 Carbon Dioxide 33 mmol/L (22-30) H 09/19/18 06:35 Anion Gap 8 mmol/L 09/19/18 06:35 BUN 15 mg/dL (9-20) 09/19/18 06:35 Creatinine 0.59 mg/dL (0.66-1.25) L 09/19/18 06:35 Est GFR (CKD-EPI)AfAm >90 (>60 ml/min/1.73 sqM) 09/19/18 06:35 Est GFR (CKD-EPI)NonAf >90 (>60 ml/min/1.73 sqM) 09/19/18 06:35 Glucose 205 mg/dL (74-99) H 09/19/18 06:35 POC Glucose (mg/dL) 167 mg/dL (75-99) H 09/19/18 20:35 POC Glu [employer] ANA PAULA Marybeth Sampson 09/19/18 20:[address] Glu mg/dL 111 02/18/19 18:15 Hemoglobin A1c 5.5 % (4.0-6.0) 09/18/18 18:15 Plasma Lactic Acid Silvino 1.9 mmol/L (0.7-2.0) 09/18/18 18:15 Calcium 9.2 mg/dL (8.4-10.2) 09/19/18 06:35 Magnesium 1.9 mg/dL (1.6-2.3) 09/17/18 13:28 Total Bilirubin 1.0 mg/dL (0.2-1.3) 09/17/18 13:28 AST 39 U/L (17-59) 09/17/18 13:28 ALT 35 U/L (21-72) 09/17/18 13:28 Alkaline Phosphatase 230 U/L (38-126) H 09/17/18 13:28 Total Creatine Kinase 37 U/L (55-170) L 09/17/18 13:28 CK-MB (CK-2) 0.4 ng/mL (0.0-2.4) 09/17/18 13:28 CK-MB (CK-2) Rel Index 1.1 09/17/18 13:28 Troponin I <0.012 ng/mL (0.000-0.034) 09/18/18 09:49 Total Protein 8.2 g/dL (6.3-8.2) 09/17/18 13:28 Albumin 4.5 g/dL (3.5-5.0) 09/17/18 13:28 Serum Alcohol <10 mg/dL 09/18/18 09:49 Microbiology 09/18/18 00:44 Blood Blood Culture Gram Stain - Preliminary 09/18/18 00:44 Blood Blood Culture - Preliminary Enterococcus spec 09/18/18 00:44 Blood Blood Culture - Final Assessment and Plan (1) Bacteremia Narrative/Plan: 68-year-old male presents to Hospital not feeling well with significant pain to his left shoulder. He has a known history of underlying coronary artery disease status post cardiovascular surgery including aortic valve replacement. At admission the patient had a temperature as well as leukocytosis and evaluation for sepsis was begun. There is no evidence of positive blood cultures with an enterococcus species. Laboratories working to further identify the bacteria as to whether or not this will be distinct pathogen. For now antibiotic therapy with Vancomycin and Rocephin are being utilized. Concern will be with the patient's aortic valve replacement if he does have bacteremia may need further evaluation for possibility of underlying prosthetic valve endocarditis. Follow blood cultures are 30 and process. Patient's fever and leukocytosis are improving. His severe pain to his left shoulder is improving and is thought to be a cervical radiculopathy that was worsened by his repetitive motion activity the night before the onset. Current Visit: Yes Status: Acute Code(s): R78.81 - BACTEREMIA SNOMED Code( s): 5350749 (2) History of aortic valve replacement Current Visit: Yes Status: Acute Code(s): Z95.2 - PRESENCE OF PROSTHETIC HEART VALVE SNOMED Code(s): 7474281596442
[2018-09-20] MEDS: methylPREDNISolone SOD SUCCI 40 MG/ML 1 ML VIAL IV SCH ×5 (00:33→23:38)
[2018-09-20] MEDS: VANCOMYCIN 1,500 MG in SODIUM CHLORIDE 0.9% 250 ML IVPB SCH ×3 (00:33→23:38)
[2018-09-20] MEDS: LEVOTHYROXINE 50 MCG TAB PO SCH (05:23)
[2018-09-20 06:30] LABS: Basophils % (A) 0 %; Eosinophils # (A) 0.1 k/uL (0-0.7); Eosinophils % (A) 0 %; HCT 42.8 % (39.0-53.0); HGB 13.4 gm/dL (13.0-17.5); Hypochromasia Slight; Lymphocytes # (A) 0.8 k/uL (1.0-4.8); Lymphocytes % (A) 4 %; MCH 32.4 pg (25.0-35.0); MCHC 31.4 g/dL (31.0-37.0); MCV 103.2 fL (80.0-100.0); Macrocytosis Slight; Mean Platelet Volume 7.2; Monocytes # (A) 0.5 k/uL (0-1.0); Monocytes % (A) 3 %; Neutrophils # (A) 18.7 k/uL (1.3-7.7); Neutrophils % (A) 93 %; Platelet Count 205 k/uL (150-450); RBC 4.14 m/uL (4.30-5.90); RDW 14.3 % (11.5-15.5); WBC 20.2 k/uL (3.8-10.6)
[2018-09-20 06:34] LABS: INR 1.3 (<1.2); Prothrombin Time 13.7 sec (9.0-12.0)
[2018-09-20 06:53] LABS: Glucose,Whole Blood 164 mg/dL (75-99)
[2018-09-20 07:04] LABS: Anion Gap 7 mmol/L; Blood Urea Nitrogen 26 mg/dL (9-20); Calcium 9.2 mg/dL (8.4-10.2); Carbon Dioxide 31 mmol/L (22-30); Chloride 103 mmol/L (98-107); Glucose 173 mg/dL (74-99); Potassium 4.3 mmol/L (3.5-5.1); Sodium 141 mmol/L (137-145)
[2018-09-20] MEDS: IPRATROPIUM 0.5 MG/2.5 ML NEBU INHALATION SCH ×4 (08:40→20:10)
[2018-09-20] MEDS: SYMBICORT 160-4.5 MCG INHALER INHALATION SCH ×2 (08:40→20:08)
[2018-09-20] MEDS: INSULIN ASPART (NovoLOG) 100 UNIT/ML VIAL SQ SCH ×4 (08:48→20:36)
[2018-09-20] MEDS: THIAMINE 100 MG TAB PO SCH (08:49)
[2018-09-20] MEDS: SPIRONOLACTONE 25 MG TAB PO SCH (08:49)
[2018-09-20] MEDS: METOPROLOL TARTRATE 50 MG TAB PO SCH ×2 (08:49→20:36)
[2018-09-20] MEDS: CLOPIDOGREL 75 MG TAB PO SCH (08:49)
[2018-09-20] MEDS: PREGABALIN 50 MG CAP PO SCH ×2 (08:49→20:36)
[2018-09-20] MEDS: FUROSEMIDE 40 MG TAB PO SCH ×2 (08:50→17:30)
[2018-09-20] MEDS: FOLIC ACID 1 MG TAB PO SCH (08:50)
[2018-09-20] MEDS: DILTIAZEM CD 240 MG CAP.ER.24H PO SCH (08:50)
[2018-09-20] MEDS: FERROUS SULFATE 325 MG TAB PO SCH (08:50)
[2018-09-20] MEDS: BRIMONIDINE TARTRATE 0.2% DROPS 5 ML BTL BOTH EYES SCH ×2 (08:50→20:37)
[2018-09-20] MEDS: PANTOPRAZOLE 40 MG TABLET PO SCH (08:50)
[2018-09-20] MEDS: DORZOLAMIDE HCL 2% DROPS 10 ML BTL BOTH EYES SCH ×2 (08:50→20:37)
[2018-09-20] MEDS: NICOTINE 21MG/24HR PATCH TRANSDERM SCH (08:51)
[2018-09-20] MEDS: traMADol 50 MG TAB PO PRN (09:36)
[2018-09-20 11:55] LABS: Glucose,Whole Blood 143 mg/dL (75-99)
[2018-09-20] MEDS: SODIUM CHLORIDE 0.9% 1,000 ML IV SCH (17:23)
[2018-09-20 17:38] LABS: Glucose,Whole Blood 175 mg/dL (75-99)
[2018-09-20 20:06] LABS: Glucose,Whole Blood 291 mg/dL (75-99)
[2018-09-20] MEDS: ATORVASTATIN 40 MG TAB PO SCH (20:36)
[2018-09-20 20:37] LABS: Appearance,Urine Clear (Clear); Bilirubin,Urine Negative (Negative); Blood,Urine Negative (Negative); Color,Urine Light Yellow; Glucose,Urine (UA) 2+ (Negative); Ketones,Urine Negative (Negative); Leukocyte Esterase,Urine Negative (Negative); Nitrite,Urine Negative (Negative); PH, Urine 5.5 (5.0-8.0); Protein,Urine Negative (Negative); Specific Gravity,Urine 1.008 (1.001-1.035); Urobilinogen,Urine <2.0 mg/dL (<2.0)
--- NOTE | 2018-09-20 20:45 | P.PN ---
Subjective This is a pleasant 68 years old male with past medical history of congestive heart failure, atrial fibrillation/flutter on warfarin, coronary artery disease , prostate cancer status post prostatectomy, right lower extremity DVT and gastritis, GI bleed, liver cirrhosis, COPD with FEV1 a 40% predicted, GERD, hyperlipidemia, hypertension, memory impairment. The patient to follow up in the [facility]. He presents because of left shoulder pain of one-day duration with difficulty in raising his left hand above his head. On admission he had fever of 100, rest of vitals looks stable, leukocytosis of 15.3. INR 2.6. BMP was unremarkable with creatinine 0.9. Liver enzymes were not elevated. Chest x-ray: Showed increased interstitial markings suspicious for mild pulmonary congestion without overt heart failure as per radiology report. Negative x-ray of the left shoulder for acute fracture or acute abnormality. EKG showing atrial fibrillation with heart rate at 85 bpm 09/18/2018 Patient is still complaining of from significant pain in his left shoulders with milder pain in the back of the neck which says his more chronic area patient denies trauma to his left shoulder. Patient has difficulty raising his left arm above his shoulder and head. No signs of deformity or inflammation or swelling. Shoulder x-rays and CT scans were negative. Patient states that he smokes about 1 pack and half per day and he drinks alcohol on a regular basis. He had fever off 100.8 on admissions with mild leukocytosis at 15 K, not coming down to 11 K after patient was started on ceftriaxone. Is still a bit tachycardic. He has some elements of COPD, but with no cough and doesn't make much sclerae. His INR today is 2.6 and rest of the BMP was unremarkable with creatinine 0.5. Cardiology and orthopedic team were consulted from emergency room. CT of the cervical spine showing moderate foraminal narrowing on the left C5-6 and C3-4. 09/19/2018 Patient still feeling pain in his left shoulder, and he asked for pain medication to control it. He denies chest pain. No nausea or vomiting. Patient has been afebrile since admission when he had fever of 100.8. He had mild leukocytosis coming down from 15 K down to 12.4 K. However blood culture came back today positive for enterococcus species. Infectious disease team have been consulted and their input is appreciated. Following the final results of the culture and adjust medication of antibiotic accordingly and of the recommendation. Patient might need long-term antibiotic as he has an aortic valve replacement. Cardiology evaluated and cleared the patient as there is some stable from the standpoint. Orthopedic team evaluated the patient as well and recommended tapered dose of steroids for his cervical radiculopathy. patient was placed on serial protocol for his history of alcoholism. 09/20/2018 pt says he feels a little better today , fever subsided, his white cell count is 20K, creatinine 0.68. his culture showing enterococcus and final result for sensitivity is still pending . he was stared on gently hydration for little drop in his bp the night before, pt remain on antibiotic as per ID team recommendation , he is currently on vancomycin and ceftriaxone. pt also on steroid ,warfarin , and ativan. we will keep monitor the pt closely Review of systems CONSTITUTIONAL: No fever, no malaise, no fatigue. HEENT: No recent visual problems or hearing problems. Denied any sore throat. CARDIOVASCULAR: No orthopnea, PND, no palpitations, no syncope. PULMONARY: No shortness of breath, no cough, no hemoptysis. GASTROINTESTINAL: No diarrhea, no nausea, no vomiting, no abdominal pain. Normoactive bowel sounds. NEUROLOGICAL: No headaches, no weakness, no numbness. HEMATOLOGICAL: Denies any bleeding or petechiae. GENITOURINARY: Denies any burning micturition, frequency, or urgency. ENDOCRINE: Denies any polyuria or polydipsia. Medication: Warfarin, aspirin, ceftriaxone, morphine, nicotine patch, warfarin, Plavix, Spiriva, Aldactone, Lyrica, Protonix, Lopressor, Synthroid, Lasix, folic acid, vancomycin, Protonix, Ativan, thiamine, folic acid Objective - Vital Signs Vital signs: Vital Signs Temp 98.7 F 09/20/18 16:00 Pulse 83 09/20/18 16:00 Resp 18 09/20/18 16:00 BP 129/60 09/20/18 16:00 Pulse Ox 97 09/20/18 16:00 Intake & Output 09/20/18 09/20/18 09/21/18 06:59 18:59 06:59 Intake Total 716 Balance 716 Intake: Oral 716 Other: Voiding Method Toilet Toilet - Exam GENERAL: The patient is alert and oriented x3, not in any acute distress. Well developed, well nourished. HEENT: Pupils are round and equally reacting to light. EOMI. No scleral icterus. No conjunctival pallor. Normocephalic, atraumatic. No pharyngeal erythema. No thyromegaly. CARDIOVASCULAR: S1 and S2 present. No murmurs, rubs, or gallops. PULMONARY: Chest is clear to auscultation, no wheezing or crackles. ABDOMEN: Soft, nontender, nondistended, normoactive bowel sounds. No palpable organomegaly. -MUSCULOSKELETAL: No joint swelling or deformity. Patient has limitation in dressing his left arm above his shoulder and head. Same as yesterday EXTREMITIES: No cyanosis, clubbing, or pedal edema. NEUROLOGICAL: Gross neurological examination did not reveal any focal deficits. SKIN: No rashes. - Labs CBC & Chem 7: 09/20/18 05:46 09/20/18 05:46 Labs: Abnormal Lab Results - Last 24 Hours (Table) 09/20/18 09/20/18 09/20/18 Range/Units 05:46 05:46 05:46 WBC 20.2 H (3.8-10.6) k/uL RBC 4.14 L (4.30-5.90) m/uL MCV 103.2 H (80.0-100.0) fL Neutrophils # 18.7 H (1.3-7.7) k/uL Lymphocytes # 0.8 L (1.0-4.8) k/uL PT 13.7 H (9.0-12.0) sec INR 1.3 H (<1.2) Carbon Dioxide 31 H (22-30) mmol/L BUN 26 H (9-20) mg/dL Glucose 173 H (74-99) mg/dL POC Glucose (mg/dL) (75-99) mg/dL Urine Glucose (UA) (Negative) 09/20/18 09/20/18 09/20/18 Range/Units 06:51 11:53 17:36 WBC (3.8-10.6) k/uL RBC (4.30-5.90) m/uL MCV (80.0-100.0) fL Neutrophils # (1.3-7.7) k/uL Lymphocytes # (1.0-4.8) k/uL PT (9.0-12.0) sec INR (<1.2) Carbon Dioxide (22-30) mmol/L BUN (9-20) mg/dL Glucose (74-99) mg/dL POC Glucose (mg/dL) 164 H 143 H 175 H (75-99) mg/dL Urine Glucose (UA) (Negative) 09/20/18 09/20/18 Range/Units 20:04 Unknown WBC (3.8-10.6) k/uL RBC (4.30-5.90) m/uL MCV (80.0-100.0) fL Neutrophils # (1.3-7.7) k/uL Lymphocytes # (1.0-4.8) k/uL PT (9.0-12.0) sec INR (<1.2) Carbon Dioxide (22-30) mmol/L BUN (9-20) mg/dL Glucose (74-99) mg/dL POC Glucose (mg/dL) 291 H (75-99) mg/dL Urine Glucose (UA) 2+ H (Negative) Microbiology - Last 24 Hours (Table) 09/19/18 06:35 Blood Culture - Preliminary Blood No Growth after 24 hours 09/18/18 00:44 Blood Culture Gram Stain - Preliminary Blood Blood Culture - Preliminary Group D Enterococcus Assessment and Plan Assessment: Systemic inflammatory response, with fever and leukocytosis, unknown source of infection. Enterococcus septicemia Left shoulder pain, mostly related to his circvical radiculopathy Acute COPD exacerbation, mild to moderate Alcohol abuse, with risk of alcohol withdrawal and delirium tremens. History of coronary artery disease History of congestive heart failure History of chronic atrial fibrillation/flutter on warfarin History of right leg DVT History of gastritis History of GI bleed History of colonic tubular disease Hypertension, essential Hyperlipidemia History of memory impairment History of COPD with FEV1 at 40% predicted current cigarette smoker Plan: This is a pleasant 68 years old male who presents because of left shoulder pain secondary to cervical degenartive disease and sepsis. cardiology team was consulted, and I agree with orthopedic team to evaluated for his left shoulder pain. continue with antibiotic, follow-up culture results of the blood in the sputum. We'll send urine analysis wound culture. Continue with a breathing treatment. Pain management Labs and medication were reviewed.. Continue same treatment. Continue with symptomatic treatment. Resume home medication. Monitor lytes and vitals. DVT and GI prophylaxis. Further recommendations of the clinical course of the patient DVT prophylaxis: On warfarin GI Prophylaxis: Pepcid PT/OT: Pending Prognosis is guarded
--- NOTE | 2018-09-20 20:56 | P.PN ---
Subjective Progress Note Date: 09/20/18 68-year-old male presents to the hospital emergency center complaining of severe pain to his left shoulder that radiates to his chest on the left side.with his history of significantUnderlying cardiovascular disease, history of prior cardiac surgery he counseling presents to the emergency center with concerns to a new cardiac event. The patient relates that the night before the pain started he was with his friends doing a [employer] tournament. Does not relate to how much alcohol he ingested. He relates he woke up with severe pain to his left shoulder such that he couldn' t even move his arm or shoulder or the left side of his neck without severe pain. Because it worsened his family brought him to the emergency center and he has constantly been admitted. It is noted that his presentation he had a fever and leukocytosis. Because of this blood cultures were performed in our showing evidence of a positive nature with enterococcus species. Infectious disease consultation was requested. The patient relates that with current interventions which have included some steroid therapy is feeling somewhat better.He has been evaluated by orthopedic surgery and concern is for a cervical radiculopathy and was aggravated by the repetitive motion of the game that he was playing the night before. Fortunately is feeling slightly better this afternoon but does have a history of an aortic valve repair. 09/20/2018 the patient is feeling better this afternoon. His severe pain to his left shoulder is further improved. Range of motion is further improved. He is not having further fevers or chills. He has denying significant shortness of breath cough or sputum production. His cervical radiculopathy pain is improved today. Objective - Vital Signs Vital signs: Vital Signs Temp 98.7 F 09/20/18 16:00 Pulse 83 09/20/18 16:00 Resp 18 09/20/18 16:00 BP 129/60 09/20/18 16:00 Pulse Ox 97 09/20/18 16:00 Intake & Output 09/20/18 09/20/18 09/21/18 06:59 18:59 06:59 Intake Total 716 Balance 716 Intake: Oral 716 Other: Voiding Method Toilet Toilet - Exam 68-year-old male who is comfortable HEENT: Anicteric conjunctiva are pink and moist nasal mucosa grossly intact without significant lesions, there is no thrush. Neck: The neck is supple without significant lymphadenopathy or thyromegaly. Lungs: Good bilateral air entry without significant crackles or wheezing. There is no significant bronchial sounds. There is no egophony or dullness. Heart: Regular rate and rhythm with an audible S1-S2, no S3 no S4. There is no significant murmur click or rub, PMI was nondisplaced. Abdomen: Positive bowel sounds soft and nontender without palpable masses or organomegaly. There was no guarding or rebound. Extremities:Right upper extremity has no tenderness in has good range of motion. Left arm has improved range of motion from admission was still has some tenderness with abduction. The lower extremities have chronic venous stasis changes but no open ulcerations. lower extremities are cool but not frankly cold. Neuro: Awake alert oriented to person place and time. There are no acute new gross focal sensory motor deficits. - Labs CBC & Chem 7: 09/20/18 05:46 09/20/18 05:46 Labs: Abnormal Lab Results - Last 24 Hours (Table) 09/20/18 09/20/18 09/20/18 Range/Units 05:46 05:46 05:46 WBC 20.2 H (3.8-10.6) k/uL RBC 4.14 L (4.30-5.90) m/uL MCV 103.2 H (80.0-100.0) fL Neutrophils # 18.7 H (1.3-7.7) k/uL Lymphocytes # 0.8 L (1.0-4.8) k/uL PT 13.7 H (9.0-12.0) sec INR 1.3 H (<1.2) Carbon Dioxide 31 H (22-30) mmol/L BUN 26 H (9-20) mg/dL Glucose 173 H (74-99) mg/dL POC Glucose (mg/dL) (75-99) mg/dL Urine Glucose (UA) (Negative) 09/20/18 09/20/18 09/20/18 Range/Units 06:51 11:53 17:36 WBC (3.8-10.6) k/uL RBC (4.30-5.90) m/uL MCV (80.0-100.0) fL Neutrophils # (1.3-7.7) k/uL Lymphocytes # (1.0-4.8) k/uL PT (9.0-12.0) sec INR (<1.2) Carbon Dioxide (22-30) mmol/L BUN (9-20) mg/dL Glucose (74-99) mg/dL POC Glucose (mg/dL) 164 H 143 H 175 H (75-99) mg/dL Urine Glucose (UA) (Negative) 09/20/18 09/20/18 Range/Units 20:04 Unknown WBC (3.8-10.6) k/uL RBC (4.30-5.90) m/uL MCV (80.0-100.0) fL Neutrophils # (1.3-7.7) k/uL Lymphocytes # (1.0-4.8) k/uL PT (9.0-12.0) sec INR (<1.2) Carbon Dioxide (22-30) mmol/L BUN (9-20) mg/dL Glucose (74-99) mg/dL POC Glucose (mg/dL) 291 H (75-99) mg/dL Urine Glucose (UA) 2+ H (Negative) Microbiology - Last 24 Hours (Table) 09/19/18 06:35 Blood Culture - Preliminary Blood No Growth after 24 hours 09/18/18 00:44 Blood Culture Gram Stain - Preliminary Blood Blood Culture - Preliminary Group D Enterococcus Laboratory Results WBC 20.2 k/uL (3.8-10.6) H 09/20/18 05:46 RBC 4.14 m/uL (4.30-5.90) L 09/20/18 05:46 Hgb 13.4 gm/dL (13.0-17.5) 09/20/18 05:46 Hct 42.8 % (39.0-53.0) 09/20/18 05:46 MCV 103.2 fL (80.0-100.0) H 09/20/18 05:46 MCH 32.4 pg (25.0-35.0) 09/20/18 05:46 MCHC 31.4 g/dL (31.0-37.0) 09/20/18 05:46 RDW 14.3 % (11.5-15.5) 09/20/18 05:46 Plt Count 205 k/uL (150-450) 09/20/18 05:46 Neutrophils % 93 % 09/20/18 05:46 Lymphocytes % 4 % 02/20/19 05:46 Monocytes % 3 % 09/20/18 05:46 Eosinophils % 0 % 09/20/18 05:46 Basophils % 0 % 09/20/18 05:46 Neutrophils # 18.7 k/uL (1.3-7.7) H 09/20/18 05:46 Lymphocytes # 0.8 k/uL (1.0-4.8) L 09/20/18 05:46 Monocytes # 0.5 k/uL (0-1.0) 09/20/18 05:46 Eosinophils # 0.1 k/uL (0-0.7) 09/20/18 05:46 Basophils # 0.0 k/uL (0-0.2) 09/20/18 05:46 Hypochromasia Slight 09/20/18 05:46 Macrocytosis Slight 09/20/18 05:46 PT 13.7 sec (9.0-12.0) H 09/20/18 05:46 INR 1.3 (<1.2) H 09/20/18 05:46 APTT 46.2 sec (22.0-30.0) H 09/17/18 13:28 Sodium 141 mmol/L (137-145) 09/20/18 05:46 Potassium 4.3 mmol/L (3.5-5.1) 09/20/18 05:46 Chloride 103 mmol/L (98-107) 09/20/18 05:46 Carbon Dioxide 31 mmol/L (22-30) H 09/20/18 05:46 Anion Gap 7 mmol/L 09/20/18 05:46 BUN 26 mg/dL (9-20) H 09/20/18 05:46 Creatinine 0.68 mg/dL (0.66-1.25) 09/20/18 05:46 Est GFR (CKD-EPI)AfAm >90 (>60 ml/min/1.73 sqM) 09/20/18 05:46 Est GFR (CKD-EPI)NonAf >90 (>60 ml/min/1.73 sqM) 09/20/18 05:46 Glucose 173 mg/dL (74-99) H 09/20/18 05:46 POC Glucose (mg/dL) 291 mg/dL (75-99) H 09/20/18 20:04 POC Glu Reconciler ID Brynn Anderson 09/20/18 20:[address] Glu mg/dL 111 09/18/18 18:15 Hemoglobin A1c 5.5 % (4.0-6.0) 09/18/18 18:15 Plasma Lactic Acid Silvino 1.9 mmol/L (0.7-2.0) 09/18/18 18:15 Calcium 9.2 mg/dL (8.4-10.2) 09/20/18 05:46 Magnesium 1.9 mg/dL (1.6-2.3) 09/17/18 13:28 Total Bilirubin 1.0 mg/dL (0.2-1.3) 09/17/18 13:28 AST 39 U/L (17-59) 09/17/18 13:28 ALT 35 U/L (21-72) 09/17/18 13:28 Alkaline Phosphatase 230 U/L (38-126) H 09/17/18 13:28 Total Creatine Kinase 37 U/L (55-170) L 09/17/18 13:28 CK-MB (CK-2) 0.4 ng/mL (0.0-2.4) 09/17/18 13:28 CK-MB (CK-2) Rel Index 1.1 09/17/18 13:28 Troponin I <0.012 ng/mL (0.000-0.034) 09/18/18 09:49 Total Protein 8.2 g/dL (6.3-8.2) 09/17/18 13:28 Albumin 4.5 g/dL (3.5-5.0) 09/17/18 13:28 Urine Color Light Yellow 09/20/18 Unknown Urine Appearance Clear (Clear) 09/20/18 Unknown Urine pH 5.5 (5.0-8.0) 09/20/18 Unknown Ur Specific [place] 1.008 (1.001-1.035) 09/20/18 Unknown Urine Protein Negative (Negative) 09/20/18 Unknown Urine Glucose (UA) 2+ (Negative) H 09/20/18 Unknown Urine Ketones Negative (Negative) 09/20/18 Unknown Urine Blood Negative (Negative) 09/20/18 Unknown Urine Nitrite Negative (Negative) 09/20/18 Unknown Urine Bilirubin Negative (Negative) 09/20/18 Unknown Urine Urobilinogen <2.0 mg/dL (<2.0) 09/20/18 Unknown Ur Leukocyte Esterase Negative (Negative) 09/20/18 Unknown Serum Alcohol <10 mg/dL 09/18/18 09:49 Microbiology 09/19/18 06:35 Blood Blood Culture - Preliminary No Growth after 24 hours 09/18/18 00:44 Blood Blood Culture Gram Stain - Preliminary 09/18/18 00:44 Blood Blood Culture - Preliminary Group D Enterococcus 09/18/18 00:44 Blood Blood Culture - Final Assessment and Plan (1) Bacteremia Narrative/Plan: 68-year-old male presents to Hospital not feeling well with significant pain to his left shoulder. He has a known history of underlying coronary artery disease status post cardiovascular surgery including aortic valve replacement. At admission the patient had a temperature as well as leukocytosis and evaluation for sepsis was begun. There is no evidence of positive blood cultures with an enterococcus species. Laboratories working to further identify the bacteria as to whether or not this will be distinct pathogen. For now antibiotic therapy with Vancomycin and Rocephin are being utilized. Concern will be with the patient's aortic valve replacement if he does have bacteremia may need further evaluation for possibility of underlying prosthetic valve endocarditis. Follow blood cultures are 30 and process. Patient's fever and leukocytosis are improving. His severe pain to his left shoulder is improving and is thought to be a cervical radiculopathy that was worsened by his repetitive motion activity the night before the onset. 09/20/2018 patient is feeling somewhat better today. He has no other new complaints. Severe pain to the left shoulder is improved to a particular pain is improved. Is on the blood culture is now positive with group D enterococcus. This is a real pathogen with the patient's history of aortic valve repair required a multiweek course of intravenous antibiotic therapy. Once is evidence of negative blood cultures IV access can be placed and then hopefully the course of outpatient intravenous antibioitic therapy can be designed. Patient is aware he will require a multiweek course of antibiotics. Current Visit: Yes Status: Acute Code(s): R78.81 - BACTEREMIA SNOMED Code( s): 3455482 (2) History of aortic valve replacement Current Visit: Yes Status: Acute Code(s): Z95.2 - PRESENCE OF PROSTHETIC HEART VALVE SNOMED Code(s): 3312503962651
[2018-09-20] MEDS ORDERED: VANCOMYCIN TROUGH DUE 1 EACH MISC MISCELLANE ONE (23:00)
[2018-09-21] MEDS: methylPREDNISolone SOD SUCCI 40 MG/ML 1 ML VIAL IV SCH ×4 (05:52→23:45)
[2018-09-21] MEDS: LEVOTHYROXINE 50 MCG TAB PO SCH (05:52)
[2018-09-21 07:02] LABS: Glucose,Whole Blood 158 mg/dL (75-99)
[2018-09-21] MEDS: INSULIN ASPART (NovoLOG) 100 UNIT/ML VIAL SQ SCH ×4 (08:24→20:15)
[2018-09-21] MEDS: PANTOPRAZOLE 40 MG TABLET PO SCH (08:25)
[2018-09-21] MEDS: FUROSEMIDE 40 MG TAB PO SCH ×2 (08:25→17:18)
[2018-09-21] MEDS: DILTIAZEM CD 240 MG CAP.ER.24H PO SCH (08:25)
[2018-09-21] MEDS: METOPROLOL TARTRATE 50 MG TAB PO SCH ×2 (08:25→20:58)
[2018-09-21] MEDS: CLOPIDOGREL 75 MG TAB PO SCH (08:25)
[2018-09-21] MEDS: PREGABALIN 50 MG CAP PO SCH ×2 (08:26→20:59)
[2018-09-21] MEDS: SPIRONOLACTONE 25 MG TAB PO SCH (08:26)
[2018-09-21] MEDS: BRIMONIDINE TARTRATE 0.2% DROPS 5 ML BTL BOTH EYES SCH ×2 (08:26→20:57)
[2018-09-21] MEDS: DORZOLAMIDE HCL 2% DROPS 10 ML BTL BOTH EYES SCH ×2 (08:27→20:57)
[2018-09-21] MEDS: NICOTINE 21MG/24HR PATCH TRANSDERM SCH (08:28)
[2018-09-21] MEDS: SYMBICORT 160-4.5 MCG INHALER INHALATION SCH ×2 (08:48→20:37)
[2018-09-21] MEDS: ALBUTEROL NEBULIZED 2.5 MG/3 ML INHALATION PRN (08:49)
[2018-09-21] MEDS: IPRATROPIUM 0.5 MG/2.5 ML NEBU INHALATION SCH ×4 (08:49→20:37)
[2018-09-21 08:58] LABS: INR 1.6 (<1.2); Prothrombin Time 15.7 sec (9.0-12.0)
[2018-09-21 09:01] LABS: Basophils % (A) 0 %; Eosinophils # (A) 0.1 k/uL (0-0.7); Eosinophils % (A) 0 %; HCT 46.3 % (39.0-53.0); HGB 13.9 gm/dL (13.0-17.5); Hypochromasia Moderate; Lymphocytes # (A) 0.7 k/uL (1.0-4.8); Lymphocytes % (A) 4 %; MCH 31.5 pg (25.0-35.0); MCHC 30.1 g/dL (31.0-37.0); MCV 104.6 fL (80.0-100.0); Macrocytosis Slight; Mean Platelet Volume 7.2; Monocytes # (A) 0.5 k/uL (0-1.0); Monocytes % (A) 3 %; Neutrophils # (A) 17.7 k/uL (1.3-7.7); Neutrophils % (A) 93 %; Platelet Count 237 k/uL (150-450); RBC 4.43 m/uL (4.30-5.90); WBC 19.1 k/uL (3.8-10.6)
[2018-09-21] MEDS: SODIUM CHLORIDE 0.9% 1,000 ML IV SCH (09:14)
[2018-09-21 09:22] LABS: Anion Gap 8 mmol/L; Blood Urea Nitrogen 24 mg/dL (9-20); Carbon Dioxide 30 mmol/L (22-30); Chloride 105 mmol/L (98-107); Glucose 205 mg/dL (74-99); Potassium 4.5 mmol/L (3.5-5.1); Sodium 143 mmol/L (137-145)
[2018-09-21 11:29] LABS: Glucose,Whole Blood 176 mg/dL (75-99)
[2018-09-21] MEDS: THIAMINE 100 MG TAB PO SCH (12:24)
[2018-09-21] MEDS: FERROUS SULFATE 325 MG TAB PO SCH (12:24)
[2018-09-21] MEDS: FOLIC ACID 1 MG TAB PO SCH (12:24)
[2018-09-21] MEDS: VANCOMYCIN 1,500 MG in SODIUM CHLORIDE 0.9% 250 ML IVPB SCH (12:24)
[2018-09-21] MEDS: WARFARIN 3 MG TAB PO SCH (13:12)
[2018-09-21 13:59] LABS: INR 1.4 (<1.2); Prothrombin Time 14.4 sec (9.0-12.0)
[2018-09-21] MEDS ORDERED: LIDOCAINE 1% INJ 10MG/ML (20 ML MDV) SQ ONE (14:22)
[2018-09-21] MEDS: DAPTOmycin 500 MG in SODIUM CHLORIDE 0.9% 50 ML IVPB SCH (15:27)
[2018-09-21 17:31] LABS: Glucose,Whole Blood 139 mg/dL (75-99)
--- NOTE | 2018-09-21 18:51 | P.PN ---
Subjective This is a pleasant 68 years old male with past medical history of congestive heart failure, atrial fibrillation/flutter on warfarin, coronary artery disease , prostate cancer status post prostatectomy, right lower extremity DVT and gastritis, GI bleed, liver cirrhosis, COPD with FEV1 a 40% predicted, GERD, hyperlipidemia, hypertension, memory impairment. The patient to follow up in the [facility]. He presents because of left shoulder pain of one-day duration with difficulty in raising his left hand above his head. On admission he had fever of 100, rest of vitals looks stable, leukocytosis of 15.3. INR 2.6. BMP was unremarkable with creatinine 0.9. Liver enzymes were not elevated. Chest x-ray: Showed increased interstitial markings suspicious for mild pulmonary congestion without overt heart failure as per radiology report. Negative x-ray of the left shoulder for acute fracture or acute abnormality. EKG showing atrial fibrillation with heart rate at 85 bpm 09/18/2018 Patient is still complaining of from significant pain in his left shoulders with milder pain in the back of the neck which says his more chronic area patient denies trauma to his left shoulder. Patient has difficulty raising his left arm above his shoulder and head. No signs of deformity or inflammation or swelling. Shoulder x-rays and CT scans were negative. Patient states that he smokes about 1 pack and half per day and he drinks alcohol on a regular basis. He had fever off 100.8 on admissions with mild leukocytosis at 15 K, not coming down to 11 K after patient was started on ceftriaxone. Is still a bit tachycardic. He has some elements of COPD, but with no cough and doesn't make much sclerae. His INR today is 2.6 and rest of the BMP was unremarkable with creatinine 0.5. Cardiology and orthopedic team were consulted from emergency room. CT of the cervical spine showing moderate foraminal narrowing on the left C5-6 and C3-4. 09/19/2018 Patient still feeling pain in his left shoulder, and he asked for pain medication to control it. He denies chest pain. No nausea or vomiting. Patient has been afebrile since admission when he had fever of 100.8. He had mild leukocytosis coming down from 15 K down to 12.4 K. However blood culture came back today positive for enterococcus species. Infectious disease team have been consulted and their input is appreciated. Following the final results of the culture and adjust medication of antibiotic accordingly and of the recommendation. Patient might need long-term antibiotic as he has an aortic valve replacement. Cardiology evaluated and cleared the patient as there is some stable from the standpoint. Orthopedic team evaluated the patient as well and recommended tapered dose of steroids for his cervical radiculopathy. patient was placed on serial protocol for his history of alcoholism. 09/20/2018 pt says he feels a little better today , fever subsided, his white cell count is 20K, creatinine 0.68. his culture showing enterococcus and final result for sensitivity is still pending . he was stared on gently hydration for little drop in his bp the night before, pt remain on antibiotic as per ID team recommendation , he is currently on vancomycin and ceftriaxone. pt also on steroid ,warfarin , and ativan. we will keep monitor the pt closely 09/21/2018 pt is going to get picc line today on his left upper extremity for his prolonged antibiotic, his left shoulder pain is improving significantly and today he can moves his arm above his head easily with no difficulty. Patient and see what protocol but he does not have signs symptoms of alcohol withdrawal. Patient is on warfarin with alternate doses between 3 and 6 mg, 2 days and hold for is getting PICC line. His WBC is 19.1, however he is also on Solu-Medrol no more fever. INR today is 1.6. Review of systems CONSTITUTIONAL: No fever, no malaise, no fatigue. HEENT: No recent visual problems or hearing problems. Denied any sore throat. CARDIOVASCULAR: No orthopnea, PND, no palpitations, no syncope. PULMONARY: No shortness of breath, no cough, no hemoptysis. GASTROINTESTINAL: No diarrhea, no nausea, no vomiting, no abdominal pain. Normoactive bowel sounds. NEUROLOGICAL: No headaches, no weakness, no numbness. HEMATOLOGICAL: Denies any bleeding or petechiae. GENITOURINARY: Denies any burning micturition, frequency, or urgency. ENDOCRINE: Denies any polyuria or polydipsia. Medication: Warfarin, aspirin, ceftriaxone, morphine, nicotine patch, warfarin, Plavix, Spiriva, Aldactone, Lyrica, Protonix, Lopressor, Synthroid, Lasix, folic acid, vancomycin, Protonix, Ativan, thiamine, folic acid Objective - Vital Signs Vital signs: Vital Signs Temp 97.9 F 09/21/18 12:12 Pulse 68 09/21/18 16:25 Resp 16 09/21/18 16:25 BP 162/72 09/21/18 12:12 Pulse Ox 96 09/21/18 16:11 Intake & Output 09/20/18 09/21/18 09/21/18 18:59 06:59 18:59 Intake Total 716 Balance 716 Weight 99 kg Intake: Oral 716 Other: Voiding Method Toilet Toilet Toilet - Exam GENERAL: The patient is alert and oriented x3, not in any acute distress. Well developed, well nourished. HEENT: Pupils are round and equally reacting to light. EOMI. No scleral icterus. No conjunctival pallor. Normocephalic, atraumatic. No pharyngeal erythema. No thyromegaly. CARDIOVASCULAR: S1 and S2 present. No murmurs, rubs, or gallops. PULMONARY: Chest is clear to auscultation, no wheezing or crackles. ABDOMEN: Soft, nontender, nondistended, normoactive bowel sounds. No palpable organomegaly. -MUSCULOSKELETAL: No joint swelling or deformity. Patient has limitation in dressing his left arm above his shoulder and head. Same as yesterday EXTREMITIES: No cyanosis, clubbing, or pedal edema. NEUROLOGICAL: Gross neurological examination did not reveal any focal deficits. SKIN: No rashes. - Labs CBC & Chem 7: 09/21/18 08:26 09/21/18 08:26 Labs: Abnormal Lab Results - Last 24 Hours (Table) 09/20/18 09/20/18 09/21/18 Range/Units 20:04 Unknown 07:01 WBC (3.8-10.6) k/uL MCV (80.0-100.0) fL MCHC (31.0-37.0) g/dL Neutrophils # (1.3-7.7) k/uL Lymphocytes # (1.0-4.8) k/uL PT (9.0-12.0) sec INR (<1.2) BUN (9-20) mg/dL Creatinine (0.66-1.25) mg/dL Glucose (74-99) mg/dL POC Glucose (mg/dL) 291 H 158 H (75-99) mg/dL Urine Glucose (UA) 2+ H (Negative) 09/21/18 09/21/18 09/21/18 Range/Units 08:26 08:26 08:26 WBC 19.1 H (3.8-10.6) k/uL MCV 104.6 H (80.0-100.0) fL MCHC 30.1 L (31.0-37.0) g/dL Neutrophils # 17.7 H (1.3-7.7) k/uL Lymphocytes # 0.7 L (1.0-4.8) k/uL PT 15.7 H (9.0-12.0) sec INR 1.6 H (<1.2) BUN 24 H (9-20) mg/dL Creatinine 0.57 L (0.66-1.25) mg/dL Glucose 205 H (74-99) mg/dL POC Glucose (mg/dL) (75-99) mg/dL Urine Glucose (UA) (Negative) 09/21/18 09/21/18 09/21/18 Range/Units 11:28 13:23 17:25 WBC (3.8-10.6) k/uL MCV (80.0-100.0) fL MCHC (31.0-37.0) g/dL Neutrophils # (1.3-7.7) k/uL Lymphocytes # (1.0-4.8) k/uL PT 14.4 H (9.0-12.0) sec INR 1.4 H (<1.2) BUN (9-20) mg/dL Creatinine (0.66-1.25) mg/dL Glucose (74-99) mg/dL POC Glucose (mg/dL) 176 H 139 H (75-99) mg/dL Urine Glucose (UA) (Negative) Microbiology - Last 24 Hours (Table) 09/19/18 06:35 Blood Culture - Preliminary Blood No Growth after 48 hours 09/18/18 00:44 Blood Culture Gram Stain - Final Blood Blood Culture - Final Enterococcus faecalis 09/20/18 05:46 Blood Culture - Preliminary Blood No Growth after 24 hours Assessment and Plan Assessment: Systemic inflammatory response, with fever and leukocytosis, unknown source of infection. Enterococcus septicemia Left shoulder pain, mostly related to his circvical radiculopathy Acute COPD exacerbation, mild to moderate Alcohol abuse, with risk of alcohol withdrawal and delirium tremens. History of coronary artery disease History of congestive heart failure History of chronic atrial fibrillation/flutter on warfarin History of right leg DVT History of gastritis History of GI bleed History of colonic tubular disease Hypertension, essential Hyperlipidemia History of memory impairment History of COPD with FEV1 at 40% predicted current cigarette smoker Plan: This is a pleasant 68 years old male who presents because of left shoulder pain secondary to cervical degenartive disease and sepsis. cardiology team was consulted, and I agree with orthopedic team to evaluated for his left shoulder pain. continue with antibiotic, follow-up culture results of the blood in the sputum. We'll send urine analysis wound culture. Continue with a breathing treatment. Pain management Labs and medication were reviewed.. Continue same treatment. Continue with symptomatic treatment. Resume home medication. Monitor lytes and vitals. DVT and GI prophylaxis. Further recommendations of the clinical course of the patient DVT prophylaxis: On warfarin GI Prophylaxis: Pepcid PT/OT: Pending Prognosis is guarded
--- NOTE | 2018-09-21 19:54 | P.PN ---
Subjective Progress Note Date: 09/21/18 68-year-old male presents to the hospital emergency center complaining of severe pain to his left shoulder that radiates to his chest on the left side.with his history of significantUnderlying cardiovascular disease, history of prior cardiac surgery he counseling presents to the emergency center with concerns to a new cardiac event. The patient relates that the night before the pain started he was with his friends doing a [employer] tournament. Does not relate to how much alcohol he ingested. He relates he woke up with severe pain to his left shoulder such that he couldn' t even move his arm or shoulder or the left side of his neck without severe pain. Because it worsened his family brought him to the emergency center and he has constantly been admitted. It is noted that his presentation he had a fever and leukocytosis. Because of this blood cultures were performed in our showing evidence of a positive nature with enterococcus species. Infectious disease consultation was requested. The patient relates that with current interventions which have included some steroid therapy is feeling somewhat better.He has been evaluated by orthopedic surgery and concern is for a cervical radiculopathy and was aggravated by the repetitive motion of the game that he was playing the night before. Fortunately is feeling slightly better this afternoon but does have a history of an aortic valve repair. 09/20/2018 the patient is feeling better this afternoon. His severe pain to his left shoulder is further improved. Range of motion is further improved. He is not having further fevers or chills. He has denying significant shortness of breath cough or sputum production. His cervical radiculopathy pain is improved today. 09/21/2018 patient is feeling further improved today. Radicular pain to the left shoulder has further improvement in range of motion is improved. He's having no further fevers or chills. The patient's son is present today and does verify that the patient underwent aorta surgery which resulted in a replacement of the aortic valve. The patient fortunately is feeling better overall. Objective - Vital Signs Vital signs: Vital Signs Temp 97.9 F 09/21/18 12:12 Pulse 67 09/21/18 17:15 Resp 16 09/21/18 16:25 BP 123/80 09/21/18 17:15 Pulse Ox 96 09/21/18 16:11 Intake & Output 09/21/18 09/21/18 09/22/18 06:59 18:59 06:59 Weight 99 kg Other: Voiding Method Toilet Toilet - Exam 68-year-old male who is comfortable HEENT: Anicteric conjunctiva are pink and moist nasal mucosa grossly intact without significant lesions, there is no thrush. Neck: The neck is supple without significant lymphadenopathy or thyromegaly. Lungs: Good bilateral air entry without significant crackles or wheezing. There is no significant bronchial sounds. There is no egophony or dullness. Heart: Regular rate and rhythm with an audible S1-S2, no S3 no S4. There is no significant murmur click or rub, PMI was nondisplaced. Abdomen: Positive bowel sounds soft and nontender without palpable masses or organomegaly. There was no guarding or rebound. Extremities:Right upper extremity has no tenderness in has good range of motion. Left arm has improved range of motion from admission was still has some tenderness with abduction. The lower extremities have chronic venous stasis changes but no open ulcerations. lower extremities are cool but not frankly cold. Neuro: Awake alert oriented to person place and time. There are no acute new gross focal sensory motor deficits. - Labs CBC & Chem 7: 09/21/18 08:26 09/21/18 08:26 Labs: Abnormal Lab Results - Last 24 Hours (Table) 09/20/18 09/20/18 09/21/18 Range/Units 20:04 Unknown 07:01 WBC (3.8-10.6) k/uL MCV (80.0-100.0) fL MCHC (31.0-37.0) g/dL Neutrophils # (1.3-7.7) k/uL Lymphocytes # (1.0-4.8) k/uL PT (9.0-12.0) sec INR (<1.2) BUN (9-20) mg/dL Creatinine (0.66-1.25) mg/dL Glucose (74-99) mg/dL POC Glucose (mg/dL) 291 H 158 H (75-99) mg/dL Urine Glucose (UA) 2+ H (Negative) 09/21/18 09/21/18 09/21/18 Range/Units 08:26 08:26 08:26 WBC 19.1 H (3.8-10.6) k/uL MCV 104.6 H (80.0-100.0) fL MCHC 30.1 L (31.0-37.0) g/dL Neutrophils # 17.7 H (1.3-7.7) k/uL Lymphocytes # 0.7 L (1.0-4.8) k/uL PT 15.7 H (9.0-12.0) sec INR 1.6 H (<1.2) BUN 24 H (9-20) mg/dL Creatinine 0.57 L (0.66-1.25) mg/dL Glucose 205 H (74-99) mg/dL POC Glucose (mg/dL) (75-99) mg/dL Urine Glucose (UA) (Negative) 09/21/18 09/21/18 09/21/18 Range/Units 11:28 13:23 17:25 WBC (3.8-10.6) k/uL MCV (80.0-100.0) fL MCHC (31.0-37.0) g/dL Neutrophils # (1.3-7.7) k/uL Lymphocytes # (1.0-4.8) k/uL PT 14.4 H (9.0-12.0) sec INR 1.4 H (<1.2) BUN (9-20) mg/dL Creatinine (0.66-1.25) mg/dL Glucose (74-99) mg/dL POC Glucose (mg/dL) 176 H 139 H (75-99) mg/dL Urine Glucose (UA) (Negative) Microbiology - Last 24 Hours (Table) 09/19/18 06:35 Blood Culture - Preliminary Blood No Growth after 48 hours 09/18/18 00:44 Blood Culture Gram Stain - Final Blood Blood Culture - Final Enterococcus faecalis 09/20/18 05:46 Blood Culture - Preliminary Blood No Growth after 24 hours Laboratory Results WBC 19.1 k/uL (3.8-10.6) H 09/21/18 08:26 RBC 4.43 m/uL (4.30-5.90) 09/21/18 08:26 Hgb 13.9 gm/dL (13.0-17.5) 09/21/18 08:26 Hct 46.3 % (39.0-53.0) 09/21/18 08:26 MCV 104.6 fL (80.0-100.0) H 09/21/18 08:26 MCH 31.5 pg (25.0-35.0) 09/21/18 08:26 MCHC 30.1 g/dL (31.0-37.0) L 09/21/18 08:26 RDW 14.0 % (11.5-15.5) 09/21/18 08:26 Plt Count 237 k/uL (150-450) 09/21/18 08:26 Neutrophils % 93 % 09/21/18 08:26 Lymphocytes % 4 % 09/21/18 08:26 Monocytes % 3 % 09/21/18 08:26 Eosinophils % 0 % 09/21/18 08:26 Basophils % 0 % 09/21/18 08:26 Neutrophils # 17.7 k/uL (1.3-7.7) H 09/21/18 08:26 Lymphocytes # 0.7 k/uL (1.0-4.8) L 09/21/18 08:26 Monocytes # 0.5 k/uL (0-1.0) 09/21/18 08:26 Eosinophils # 0.1 k/uL (0-0.7) 09/21/18 08:26 Basophils # 0.0 k/uL (0-0.2) 09/21/18 08:26 Hypochromasia Moderate 09/21/18 08:26 Macrocytosis Slight 09/21/18 08:26 PT 14.4 sec (9.0-12.0) H 09/21/18 13:23 INR 1.4 (<1.2) H 09/21/18 13:23 APTT 46.2 sec (22.0-30.0) H 09/17/18 13:28 Sodium 143 mmol/L (137-145) 09/21/18 08:26 Potassium 4.5 mmol/L (3.5-5.1) 09/21/18 08:26 Chloride 105 mmol/L (98-107) 09/21/18 08:26 Carbon Dioxide 30 mmol/L (22-30) 09/21/18 08:26 Anion Gap 8 mmol/L 09/21/18 08:26 BUN 24 mg/dL (9-20) H 09/21/18 08:26 Creatinine 0.57 mg/dL (0.66-1.25) L 09/21/18 08:26 Est GFR (CKD-EPI)AfAm >90 (>60 ml/min/1.73 sqM) 09/21/18 08:26 Est GFR (CKD-EPI)NonAf >90 (>60 ml/min/1.73 sqM) 09/21/18 08:26 Glucose 205 mg/dL (74-99) H 09/21/18 08:26 POC Glucose (mg/dL) 139 mg/dL (75-99) H 09/21/18 17:25 POC Glu Business Support Manager ID Mike Zheng 09/21/18 17:[address] Glu mg/dL 111 09/18/18 18:15 Hemoglobin A1c 5.5 % (4.0-6.0) 09/18/18 18:15 Plasma Lactic Acid Silvino 1.9 mmol/L (0.7-2.0) 09/18/18 18:15 Calcium 9.0 mg/dL (8.4-10.2) 09/21/18 08:26 Magnesium 1.9 mg/dL (1.6-2.3) 09/17/18 13:28 Total Bilirubin 1.0 mg/dL (0.2-1.3) 09/17/18 13:28 AST 39 U/L (17-59) 09/17/18 13:28 ALT 35 U/L (21-72) 09/17/18 13:28 Alkaline Phosphatase 230 U/L (38-126) H 09/17/18 13:28 Total Creatine Kinase 37 U/L (55-170) L 09/17/18 13:28 CK-MB (CK-2) 0.4 ng/mL (0.0-2.4) 09/17/18 13:28 CK-MB (CK-2) Rel Index 1.1 09/17/18 13:28 Troponin I <0.012 ng/mL (0.000-0.034) 09/18/18 09:49 Total Protein 8.2 g/dL (6.3-8.2) 09/17/18 13:28 Albumin 4.5 g/dL (3.5-5.0) 09/17/18 13:28 Urine Color Light Yellow 09/20/18 Unknown Urine Appearance Clear (Clear) 09/20/18 Unknown Urine pH 5.5 (5.0-8.0) 09/20/18 Unknown Ur Specific [place] 1.008 (1.001-1.035) 09/20/18 Unknown Urine Protein Negative (Negative) 09/20/18 Unknown Urine Glucose (UA) 2+ (Negative) H 09/20/18 Unknown Urine Ketones Negative (Negative) 09/20/18 Unknown Urine Blood Negative (Negative) 09/20/18 Unknown Urine Nitrite Negative (Negative) 09/20/18 Unknown Urine Bilirubin Negative (Negative) 09/20/18 Unknown Urine Urobilinogen <2.0 mg/dL (<2.0) 09/20/18 Unknown Ur Leukocyte Esterase Negative (Negative) 09/20/18 Unknown Vancomycin Trough 15.3 ug/mL 09/20/18 23:35 Serum Alcohol <10 mg/dL 09/18/18 09:49 Microbiology 09/19/18 06:35 Blood Blood Culture - Preliminary No Growth after 48 hours 09/18/18 00:44 Blood Blood Culture Gram Stain - Final 09/18/18 00:44 Blood Blood Culture - Final Enterococcus faecalis 09/20/18 05:46 Blood Blood Culture - Preliminary No Growth after 24 hours 09/18/18 00:44 Blood Blood Culture - Final Assessment and Plan (1) Bacteremia Narrative/Plan: 68-year-old male presents to Hospital not feeling well with significant pain to his left shoulder. He has a known history of underlying coronary artery disease status post cardiovascular surgery including aortic valve replacement. At admission the patient had a temperature as well as leukocytosis and evaluation for sepsis was begun. There is no evidence of positive blood cultures with an enterococcus species. Laboratories working to further identify the bacteria as to whether or not this will be distinct pathogen. For now antibiotic therapy with Vancomycin and Rocephin are being utilized. Concern will be with the patient's aortic valve replacement if he does have bacteremia may need further evaluation for possibility of underlying prosthetic valve endocarditis. Follow blood cultures are 30 and process. Patient's fever and leukocytosis are improving. His severe pain to his left shoulder is improving and is thought to be a cervical radiculopathy that was worsened by his repetitive motion activity the night before the onset. 09/20/2018 patient is feeling somewhat better today. He has no other new complaints. Severe pain to the left shoulder is improved to a particular pain is improved. Is on the blood culture is now positive with group D enterococcus. This is a real pathogen with the patient's history of aortic valve repair required a multiweek course of intravenous antibiotic therapy. Once is evidence of negative blood cultures IV access can be placed and then hopefully the course of outpatient intravenous antibioitic therapy can be designed. Patient is aware he will require a multiweek course of antibiotics. 09/21/2018 the patient is having some improvement further today. The significant left shoulder pain has further improved and continues to note some improvement of the range of motion. As noted the blood cultures are positive for group D enterococcus which is not a contamination. With history of his aorta repair heterograft valve replacement he will be prudent for him to receive treatment for his bacteremia for at least 28 days. Will transition to daptomycin was continued utilize for daily treatment in the outpatient setting. Requesting for IV access however he is on Coumadin and this is been discussed with the primary care physician. Insurance request as to home IV antibiotic coverage. It is potential that he could be discharged home the next day Current Visit: Yes Status: Acute Code(s): R78.81 - BACTEREMIA SNOMED Code( s): 2743215 (2) History of aortic valve replacement Current Visit: Yes Status: Acute Code(s): Z95.2 - PRESENCE OF PROSTHETIC HEART VALVE SNOMED Code(s): 3448417041382
[2018-09-21 20:10] LABS: Glucose,Whole Blood 168 mg/dL (75-99)
[2018-09-21] MEDS: ATORVASTATIN 40 MG TAB PO SCH (20:56)
[2018-09-22] MEDS: SODIUM CHLORIDE 0.9% 1,000 ML IV SCH (05:17)
[2018-09-22] MEDS: methylPREDNISolone SOD SUCCI 40 MG/ML 1 ML VIAL IV SCH ×2 (05:18→12:43)
[2018-09-22] MEDS: LEVOTHYROXINE 50 MCG TAB PO SCH (05:18)
[2018-09-22] MEDS: IPRATROPIUM 0.5 MG/2.5 ML NEBU INHALATION SCH ×3 (07:44→15:39)
[2018-09-22] MEDS: SYMBICORT 160-4.5 MCG INHALER INHALATION SCH (07:44)
[2018-09-22] MEDS: INSULIN ASPART (NovoLOG) 100 UNIT/ML VIAL SQ SCH ×2 (08:10→12:43)
[2018-09-22] MEDS: CLOPIDOGREL 75 MG TAB PO SCH (08:10)
[2018-09-22] MEDS: PREGABALIN 50 MG CAP PO SCH (08:10)
[2018-09-22] MEDS: NICOTINE 21MG/24HR PATCH TRANSDERM SCH ×2 (08:10→08:14)
[2018-09-22] MEDS: METOPROLOL TARTRATE 50 MG TAB PO SCH (08:10)
[2018-09-22] MEDS: SPIRONOLACTONE 25 MG TAB PO SCH (08:10)
[2018-09-22] MEDS: DORZOLAMIDE HCL 2% DROPS 10 ML BTL BOTH EYES SCH (08:11)
[2018-09-22] MEDS: PANTOPRAZOLE 40 MG TABLET PO SCH (08:11)
[2018-09-22] MEDS: FUROSEMIDE 40 MG TAB PO SCH (08:11)
[2018-09-22] MEDS: BRIMONIDINE TARTRATE 0.2% DROPS 5 ML BTL BOTH EYES SCH (08:11)
[2018-09-22] MEDS: DILTIAZEM CD 240 MG CAP.ER.24H PO SCH (08:11)
[2018-09-22 08:51] LABS: Basophils % (A) 0 %; Eosinophils # (A) 0.1 k/uL (0-0.7); Eosinophils % (A) 1 %; HCT 43.4 % (39.0-53.0); HGB 13.5 gm/dL (13.0-17.5); Hypochromasia Slight; Lymphocytes # (A) 0.4 k/uL (1.0-4.8); Lymphocytes % (A) 4 %; MCH 31.9 pg (25.0-35.0); MCHC 31.2 g/dL (31.0-37.0); MCV 102.4 fL (80.0-100.0); Macrocytosis Slight; Mean Platelet Volume 6.9; Monocytes # (A) 0.4 k/uL (0-1.0); Monocytes % (A) 4 %; Neutrophils # (A) 10.8 k/uL (1.3-7.7); Neutrophils % (A) 92 %; Platelet Count 201 k/uL (150-450); RBC 4.24 m/uL (4.30-5.90); RDW 13.9 % (11.5-15.5); WBC 11.8 k/uL (3.8-10.6)
[2018-09-22 08:55] LABS: INR 1.4 (<1.2); Prothrombin Time 14.1 sec (9.0-12.0)
[2018-09-22 09:11] LABS: Blood Urea Nitrogen 23 mg/dL (9-20); Carbon Dioxide 31 mmol/L (22-30); Chloride 103 mmol/L (98-107); Glucose 178 mg/dL (74-99)
[2018-09-22 09:21] LABS: Anion Gap 8 mmol/L; Potassium 4.1 mmol/L (3.5-5.1); Sodium 142 mmol/L (137-145)
--- NOTE | 2018-09-22 10:57 | IR ---
PICC LINE PLACEMENT: HISTORY: Infection requiring long-term antibiotic therapy PROCEDURE: Ultrasound and fluoroscopic guidance of PICC line placement. COMPLICATIONS: None ANESTHESIA: 1. 1% Lidocaine locally. FINDINGS/TECHNIQUE: The procedure was explained to the patient. The risks, complications, benefits and alternatives were discussed and any questions were answered. Informed consent was obtained. The patient was placed supine on the fluoroscopic table and prepped and draped in the usual sterile fash ion. Utilizing a 21 gauge needle and sonographic and fluoroscopic guidance, access in the left basi lic vein was achieved and there is placement of a 0.018 guidewire. The vein is patent. A 4-F sheath was placed over the guidewire. The guidewire and dilator were removed and a 4-F. PICC line was plac ed through the sheath with the tip at the level of the SVC. The sheath was removed, the catheter was flushed and sutured into position. The patient was stable throughout the procedure and remained sta ble upon discharge from the Department of Radiology. The vein puncture was patent under ultrasound. A adler scale image was obtained to document patency of the vein punctured. All elements of the maximal barrier technique were utilized. FLUOROSCOPY TIME: 0.3 minutes and one image submitted IMPRESSION: Successful PICC line placement under ultrasound and fluoroscopic guidance.
[2018-09-22 11:51] LABS: Glucose,Whole Blood 164 mg/dL (75-99)
[2018-09-22 11:51] LABS: Glucose,Whole Blood 183 mg/dL (75-99)
[2018-09-22] MEDS: FOLIC ACID 1 MG TAB PO SCH (12:42)
[2018-09-22] MEDS: FERROUS SULFATE 325 MG TAB PO SCH (12:42)
[2018-09-22] MEDS: THIAMINE 100 MG TAB PO SCH (12:42)
[2018-09-22 14:17] VITALS: BP 168/80; PULSE 78; RESP 18; TEMP 98.2
[2018-09-22] MEDS: DAPTOmycin 500 MG in SODIUM CHLORIDE 0.9% 50 ML IVPB SCH (14:44)
--- NOTE | 2018-09-22 14:47 | P.DS ---
Providers Date of admission: 09/19/18 11:11 Expected date of discharge: 09/22/18 Attending physician: Thierry Brown MD Consults: 09/17/18 15:52 Consult Physician Urgent Consulting Provider: Naseem Rivas Consult Reason/Comments: shoulder pain Do you want consulting provider notified?: Yes 09/17/18 15:53 Consult Physician Urgent Consulting Provider: Miriam Reinoso Consult Reason/Comments: cp Do you want consulting provider notified?: Yes 09/19/18 11:15 Consult Physician Routine Consulting Provider: Oswaldo Casanova Consult Reason/Comments: positive blood cultures Do you want consulting provider notified?: Yes Primary care physician: [facility] Plan - Discharge Summary Discharge Rx Participant: Yes New Discharge Prescriptions: New DAPTOmycin [Cubicin] 500 mg IV DAILY #28 bag cefTRIAXone [Rocephin] 1 gm IVPB Q24HR 30 Days #30 vial DAPTOmycin [Cubicin] 500 mg IVPB Q24H 30 Days #30 vial Continue Metoprolol Tartrate [Lopressor] 100 mg PO BID Diltiazem HCl [Diltiazem 24Hr ER] 240 mg PO DAILY Folic Acid 1 mg PO DAILY #1 tablet Budesonide-Formot 160-4.5 Mcg [Symbicort 160-4.5 Mcg Inhaler] 2 puff INHALATION RT-BID Thiamine [Vitamin B-1] 100 mg PO DAILY Tiotropium 18 Mcg/Puff [Spiriva] 1 cap INHALATION RT-DAILY Pregabalin [Lyrica] 50 mg PO BID Spironolactone [Aldactone] 25 mg PO DAILY Ferrous Sulfate [Iron (65 MG Elemental)] 325 mg PO DAILY #30 tab Vit C/E/Zn/Coppr/Lutein/Zeaxan [Preservision Areds 2 Softgel] 1 cap PO DAILY Pantoprazole [Protonix] 40 mg PO DAILY Furosemide [Lasix] 40 mg PO BID Clopidogrel [Plavix] 75 mg PO DAILY Albuterol Nebulized [Ventolin Nebulized] 2.5 mg INHALATION RT-Q4H PRN PRN Reason: Shortness Of Breath Atorvastatin Calcium [Lipitor] 40 mg PO HS Levothyroxine Sodium [Synthroid] 50 mcg PO DAILY Warfarin Sodium 6 mg PO SUTUTHSA Ketorolac [Toradol] 60 mg IM DAILY Brimonidine 0.2%/Brinzolami 1% 1 drop BOTH EYES BID Warfarin [Coumadin] 3 mg PO MOWEFR Discharge Medication List Diltiazem HCl [Diltiazem 24Hr ER] 240 mg PO DAILY 08/23/14 [History] Metoprolol Tartrate [Lopressor] 100 mg PO BID 08/23/14 [History] Folic Acid 1 mg PO DAILY #1 tablet 09/10/14 [Rx] Budesonide-Formot 160-4.5 Mcg [Symbicort 160-4.5 Mcg Inhaler] 2 puff INHALATION RT-BID 10/07/15 [History] Thiamine [Vitamin B-1] 100 mg PO DAILY 11/18/15 [History] Tiotropium 18 Mcg/Puff [Spiriva] 1 cap INHALATION RT-DAILY 03/19/16 [History] Pregabalin [Lyrica] 50 mg PO BID 08/11/16 [History] Spironolactone [Aldactone] 25 mg PO DAILY 01/09/17 [History] Ferrous Sulfate [Iron (65 MG Elemental)] 325 mg PO DAILY #30 tab 03/06/17 [Rx] Furosemide [Lasix] 40 mg PO BID 09/23/17 [History] Pantoprazole [Protonix] 40 mg PO DAILY 09/23/17 [History] Vit C/E/Zn/Coppr/Lutein/Zeaxan [Preservision Areds 2 Softgel] 1 cap PO DAILY [History] Albuterol Nebulized [Ventolin Nebulized] 2.5 mg INHALATION RT-Q4H PRN 11/04/17 [ History] Clopidogrel [Plavix] 75 mg PO DAILY 11/04/17 [History] Atorvastatin Calcium [Lipitor] 40 mg PO HS 04/04/18 [History] Brimonidine 0.2%/Brinzolami 1% 1 drop BOTH EYES BID 04/04/18 [History] Ketorolac [Toradol] 60 mg IM DAILY 04/04/18 [History] Levothyroxine Sodium [Synthroid] 50 mcg PO DAILY 04/04/18 [History] Warfarin Sodium 6 mg PO SUTUTHSA 04/04/18 [History] Warfarin [Coumadin] 3 mg PO MOWEFR 08/03/18 [History] DAPTOmycin [Cubicin] 500 mg IV DAILY #28 bag 09/21/18 [Rx] DAPTOmycin [Cubicin] 500 mg IVPB Q24H 30 Days #30 vial 09/22/18 [Rx] cefTRIAXone [Rocephin] 1 gm IVPB Q24HR 30 Days #30 vial 09/22/18 [Rx] Follow up Appointment(s)/Referral(s): Piero Dang PAC [PHYSICIAN BIT [employer]ANDER] - 2 Weeks [facility] [Primary Care Provider] - 1-2 days Ambulatory/Diagnostic Orders: Complete Blood Count w/diff [LAB.AMB] Location: None Selected Comprehensive Metabolic Panel [LAB.AMB] Location: None Selected Activity/Diet/Wound Care/Special Instructions: Orthopedic Discharge Instructions: 1. Wound care and infection precautions, keep incision dry and covered while showering, no lotions, creams, moisturizers. No soaking, pools, hot tubs. Do not scrub over incision. 2. Weight-bear as tolerated with walker / cane until follow-up. 3. Ice and elevate when necessary. Do not exceed 20 minutes per hour with ice pack. 4. Utilize compression sleeve until seen at first follow up appointment. 5. Pain meds and anticoagulants per prescription. 6. Pain medication has potential to cause constipation. Increase oral fluid and fiber intake. Contact primary care provider if you have not had a bowel movement within 48 hours after discharge. 7. No anti-inflammatory medication until discussed at first post operative visit, this including Motrin, Aleve, Mobic, Diclofenac. 8. Follow up in office at 2 weeks postop with Ajit Dang PA-C 9. Follow up with your primary care doctor 7-10 days after discharge. 10. Contact [facility] with any questions, . Discharge Disposition: HOME WITH HOME HEALTH SERVICES
--- NOTE | 2018-09-22 17:43 | P.PN ---
Subjective Progress Note Date: 09/22/18 68-year-old male presents to the hospital emergency center complaining of severe pain to his left shoulder that radiates to his chest on the left side.with his history of significantUnderlying cardiovascular disease, history of prior cardiac surgery he counseling presents to the emergency center with concerns to a new cardiac event. The patient relates that the night before the pain started he was with his friends doing a [employer] tournament. Does not relate to how much alcohol he ingested. He relates he woke up with severe pain to his left shoulder such that he couldn' t even move his arm or shoulder or the left side of his neck without severe pain. Because it worsened his family brought him to the emergency center and he has constantly been admitted. It is noted that his presentation he had a fever and leukocytosis. Because of this blood cultures were performed in our showing evidence of a positive nature with enterococcus species. Infectious disease consultation was requested. The patient relates that with current interventions which have included some steroid therapy is feeling somewhat better.He has been evaluated by orthopedic surgery and concern is for a cervical radiculopathy and was aggravated by the repetitive motion of the game that he was playing the night before. Fortunately is feeling slightly better this afternoon but does have a history of an aortic valve repair. 09/20/2018 the patient is feeling better this afternoon. His severe pain to his left shoulder is further improved. Range of motion is further improved. He is not having further fevers or chills. He has denying significant shortness of breath cough or sputum production. His cervical radiculopathy pain is improved today. 09/21/2018 patient is feeling further improved today. Radicular pain to the left shoulder has further improvement in range of motion is improved. He's having no further fevers or chills. The patient's son is present today and does verify that the patient underwent aorta surgery which resulted in a replacement of the aortic valve. The patient fortunately is feeling better overall. 09/22/2018 patient has further improvement. The radicular pain of his left shoulder has markedly improved since admission. He is having no fevers or chills. Energy levels improved. Appetite is adequate. Her nausea emesis or diarrhea. Overall improved ready for discharge to home. Objective - Vital Signs Vital signs: Vital Signs Temp 98.2 F 09/22/18 13:00 Pulse 78 09/22/18 13:00 Resp 18 09/22/18 13:00 BP 168/80 09/22/18 13:00 Pulse Ox 95 09/22/18 13:00 Intake & Output 09/21/18 09/22/18 09/22/18 18:59 06:59 18:59 Intake Total 450 Balance 450 Weight 97 kg Intake: Intake, IV Titration 450 Amount DAPTOmycin 500 mg In 50 Sodium Chloride 0.9% 50 ml @ 100 mls/hr IVPB Q24H JAYLA Rx#:[id number] Sodium Chloride 0.9% 1, 400 000 ml @ 50 mls/hr IV . Q20H JAYLA Rx#:[id number] Other: Voiding Method Toilet Toilet # Voids 4 - Exam 68-year-old male who is comfortable HEENT: Anicteric conjunctiva are pink and moist nasal mucosa grossly intact without significant lesions, there is no thrush. Neck: The neck is supple without significant lymphadenopathy or thyromegaly. Lungs: Good bilateral air entry without significant crackles or wheezing. There is no significant bronchial sounds. There is no egophony or dullness. Heart: Regular rate and rhythm with an audible S1-S2, no S3 no S4. There is no significant murmur click or rub, PMI was nondisplaced. Abdomen: Positive bowel sounds soft and nontender without palpable masses or organomegaly. There was no guarding or rebound. Extremities:Right upper extremity has no tenderness in has good range of motion. Left arm has improved range of motion from admission was still has some tenderness with abduction. The lower extremities have chronic venous stasis changes but no open ulcerations. lower extremities are cool but not frankly cold. Neuro: Awake alert oriented to person place and time. There are no acute new gross focal sensory motor deficits. - Labs CBC & Chem 7: 09/22/18 08:05 09/22/18 08:05 Labs: Abnormal Lab Results - Last 24 Hours (Table) 09/21/18 09/22/18 09/22/18 Range/Units 19:52 06:41 08:05 WBC 11.8 H (3.8-10.6) k/uL RBC 4.24 L (4.30-5.90) m/uL MCV 102.4 H (80.0-100.0) fL Neutrophils # 10.8 H (1.3-7.7) k/uL Lymphocytes # 0.4 L (1.0-4.8) k/uL PT (9.0-12.0) sec INR (<1.2) Carbon Dioxide (22-30) mmol/L BUN (9-20) mg/dL Creatinine (0.66-1.25) mg/dL Glucose (74-99) mg/dL POC Glucose (mg/dL) 168 H 164 H (75-99) mg/dL 09/22/18 09/22/18 09/22/18 Range/Units 08:05 08:05 11:31 WBC (3.8-10.6) k/uL RBC (4.30-5.90) m/uL MCV (80.0-100.0) fL Neutrophils # (1.3-7.7) k/uL Lymphocytes # (1.0-4.8) k/uL PT 14.1 H (9.0-12.0) sec INR 1.4 H (<1.2) Carbon Dioxide 31 H (22-30) mmol/L BUN 23 H (9-20) mg/dL Creatinine 0.60 L (0.66-1.25) mg/dL Glucose 178 H (74-99) mg/dL POC Glucose (mg/dL) 183 H (75-99) mg/dL Microbiology - Last 24 Hours (Table) 09/19/18 06:35 Blood Culture - Preliminary Blood No Growth after 72 hours 09/20/18 05:46 Blood Culture - Preliminary Blood No Growth after 48 hours Laboratory Results WBC 11.8 k/uL (3.8-10.6) H 09/22/18 08:05 RBC 4.24 m/uL (4.30-5.90) L 09/22/18 08:05 Hgb 13.5 gm/dL (13.0-17.5) 09/22/18 08:05 Hct 43.4 % (39.0-53.0) 09/22/18 08:05 MCV 102.4 fL (80.0-100.0) H 09/22/18 08:05 MCH 31.9 pg (25.0-35.0) 09/22/18 08:05 MCHC 31.2 g/dL (31.0-37.0) 09/22/18 08:05 RDW 13.9 % (11.5-15.5) 09/22/18 08:05 Plt Count 201 k/uL (150-450) 09/22/18 08:05 Neutrophils % 92 % 09/22/18 08:05 Lymphocytes % 4 % 09/22/18 08:05 Monocytes % 4 % 09/22/18 08:05 Eosinophils % 1 % 09/22/18 08:05 Basophils % 0 % 09/22/18 08:05 Neutrophils # 10.8 k/uL (1.3-7.7) H 09/22/18 08:05 Lymphocytes # 0.4 k/uL (1.0-4.8) L 09/22/18 08:05 Monocytes # 0.4 k/uL (0-1.0) 09/22/18 08:05 Eosinophils # 0.1 k/uL (0-0.7) 09/22/18 08:05 Basophils # 0.0 k/uL (0-0.2) 09/22/18 08:05 Hypochromasia Slight 09/22/18 08:05 Macrocytosis Slight 09/22/18 08:05 PT 14.1 sec (9.0-12.0) H 09/22/18 08:05 INR 1.4 (<1.2) H 09/22/18 08:05 APTT 46.2 sec (22.0-30.0) H 09/17/18 13:28 Sodium 142 mmol/L (137-145) 09/22/18 08:05 Potassium 4.1 mmol/L (3.5-5.1) 09/22/18 08:05 Chloride 103 mmol/L (98-107) 09/22/18 08:05 Carbon Dioxide 31 mmol/L (22-30) H 09/22/18 08:05 Anion Gap 8 mmol/L 09/22/18 08:05 BUN 23 mg/dL (9-20) H 09/22/18 08:05 Creatinine 0.60 mg/dL (0.66-1.25) L 09/22/18 08:05 Est GFR (CKD-EPI)AfAm >90 (>60 ml/min/1.73 sqM) 09/22/18 08:05 Est GFR (CKD-EPI)NonAf >90 (>60 ml/min/1.73 sqM) 09/22/18 08:05 Glucose 178 mg/dL (74-99) H 09/22/18 08:05 POC Glucose (mg/dL) 183 mg/dL (75-99) H 09/22/18 11:31 POC Glu Tester Compressed Gases Keila Parker 09/22/18 11:[address] Glu mg/dL 111 09/18/18 18:15 Hemoglobin A1c 5.5 % (4.0-6.0) 09/18/18 18:15 Plasma Lactic Acid Silvion 1.9 mmol/L (0.7-2.0) 09/18/18 18:15 Calcium 9.0 mg/dL (8.4-10.2) 09/22/18 08:05 Magnesium 1.9 mg/dL (1.6-2.3) 09/17/18 13:28 Total Bilirubin 1.0 mg/dL (0.2-1.3) 09/17/18 13:28 AST 39 U/L (17-59) 09/17/18 13:28 ALT 35 U/L (21-72) 09/17/18 13:28 Alkaline Phosphatase 230 U/L (38-126) H 09/17/18 13:28 Total Creatine Kinase 37 U/L (55-170) L 09/17/18 13:28 CK-MB (CK-2) 0.4 ng/mL (0.0-2.4) 09/17/18 13:28 CK-MB (CK-2) Rel Index 1.1 09/17/18 13:28 Troponin I <0.012 ng/mL (0.000-0.034) 09/18/18 09:49 Total Protein 8.2 g/dL (6.3-8.2) 09/17/18 13:28 Albumin 4.5 g/dL (3.5-5.0) 09/17/18 13:28 Urine Color Light Yellow 09/20/18 Unknown Urine Appearance Clear (Clear) 09/20/18 Unknown Urine pH 5.5 (5.0-8.0) 09/20/18 Unknown Ur Specific [place] 1.008 (1.001-1.035) 09/20/18 Unknown Urine Protein Negative (Negative) 09/20/18 Unknown Urine Glucose (UA) 2+ (Negative) H 09/20/18 Unknown Urine Ketones Negative (Negative) 09/20/18 Unknown Urine Blood Negative (Negative) 09/20/18 Unknown Urine Nitrite Negative (Negative) 09/20/18 Unknown Urine Bilirubin Negative (Negative) 09/20/18 Unknown Urine Urobilinogen <2.0 mg/dL (<2.0) 09/20/18 Unknown Ur Leukocyte Esterase Negative (Negative) 09/20/18 Unknown Vancomycin Trough 15.3 ug/mL 09/20/18 23:35 Serum Alcohol <10 mg/dL 09/18/18 09:49 Microbiology 09/19/18 06:35 Blood Blood Culture - Preliminary No Growth after 72 hours 09/20/18 05:46 Blood Blood Culture - Preliminary No Growth after 48 hours 09/18/18 00:44 Blood Blood Culture Gram Stain - Final 09/18/18 00:44 Blood Blood Culture - Final Enterococcus faecalis 09/18/18 00:44 Blood Blood Culture - Final Assessment and Plan (1) Bacteremia Narrative/Plan: 68-year-old male presents to Hospital not feeling well with significant pain to his left shoulder. He has a known history of underlying coronary artery disease status post cardiovascular surgery including aortic valve replacement. At admission the patient had a temperature as well as leukocytosis and evaluation for sepsis was begun. There is no evidence of positive blood cultures with an enterococcus species. Laboratories working to further identify the bacteria as to whether or not this will be distinct pathogen. For now antibiotic therapy with Vancomycin and Rocephin are being utilized. Concern will be with the patient's aortic valve replacement if he does have bacteremia may need further evaluation for possibility of underlying prosthetic valve endocarditis. Follow blood cultures are 30 and process. Patient's fever and leukocytosis are improving. His severe pain to his left shoulder is improving and is thought to be a cervical radiculopathy that was worsened by his repetitive motion activity the night before the onset. 09/20/2018 patient is feeling somewhat better today. He has no other new complaints. Severe pain to the left shoulder is improved to a particular pain is improved. Is on the blood culture is now positive with group D enterococcus. This is a real pathogen with the patient's history of aortic valve repair required a multiweek course of intravenous antibiotic therapy. Once is evidence of negative blood cultures IV access can be placed and then hopefully the course of outpatient intravenous antibioitic therapy can be designed. Patient is aware he will require a multiweek course of antibiotics. 09/21/2018 the patient is having some improvement further today. The significant left shoulder pain has further improved and continues to note some improvement of the range of motion. As noted the blood cultures are positive for group D enterococcus which is not a contamination. With history of his aorta repair heterograft valve replacement he will be prudent for him to receive treatment for his bacteremia for at least 28 days. Will transition to daptomycin was continued utilize for daily treatment in the outpatient setting. Requesting for IV access however he is on Coumadin and this is been discussed with the primary care physician. Insurance request as to home IV antibiotic coverage. It is potential that he could be discharged home the next day September 22 2018 the patient has had further improvement. Because of the cultures haven't finalized with group D enterococcus. Follow blood cultures are negative. Patient has had his IV access placed and is doing well. Arrangements are being made for the patient go to the patient facility to receive his intravenous antibiotic therapy with daptomycin 500 mg a day planning at least 4 weeks given his history of his aorta and aortic valve replacement in the past. Weekly blood work as requested follow-up in the office in 2 and 4 weeks and continue to monitor. Information is related to the patient's son who was present. Ready for discharge today. Status: Acute Code(s): R78.81 - BACTEREMIA SNOMED Code(s): 1061170 (2) History of aortic valve replacement Status: Acute Code(s): Z95.2 - PRESENCE OF PROSTHETIC HEART VALVE SNOMED Code(s): 1250861740439
[2018-09-22] MEDS ORDERED: WARFARIN 3 MG TAB PO SCH (18:00)
== END 2018-09-22 15:45 | disposition home or self-care (01) | DRG 872 ==
LOC: EC 12:00 → 1SOBS 15:53 → UNDODISOB 19:06 → 1SOBS 09-18 08:30 → OBSVTOIN 09-19 11:11 → 3NMEDONC 09-20 15:02
PROVIDERS: ADMIT Internal Medicine; ATTEND Internal Medicine
PROC: 02HV33Z Insertion of Infusion Device into Superior Vena Cava, Percutaneous Approach (ICD-10-PCS; principal; 2018-09-22)
DX: A41.81 Sepsis due to Enterococcus (principal); I48.1 Persistent atrial fibrillation; J44.1 Chronic obstructive pulmonary disease with (acute) exacerbation; J96.11 Chronic respiratory failure with hypoxia; E66.9 Obesity, unspecified; E78.5 Hyperlipidemia, unspecified; F10.10 Alcohol abuse, uncomplicated; F17.210 Nicotine dependence, cigarettes, uncomplicated; H35.30 Unspecified macular degeneration; H91.90 Unspecified hearing loss, unspecified ear; I11.0 Hypertensive heart disease with heart failure; I25.10 Atherosclerotic heart disease of native coronary artery without angina pectoris; I25.2 Old myocardial infarction; I27.20 Pulmonary hypertension, unspecified; I48.2 Chronic atrial fibrillation; I50.9 Heart failure, unspecified; I71.2 Thoracic aortic aneurysm, without rupture; K21.9 Gastro-esophageal reflux disease without esophagitis; K74.60 Unspecified cirrhosis of liver; M19.90 Unspecified osteoarthritis, unspecified site; M50.10 Cervical disc disorder with radiculopathy, unspecified cervical region; Z68.33 Body mass index [BMI] 33.0-33.9, adult; Z79.01 Long term (current) use of anticoagulants; Z79.02 Long term (current) use of antithrombotics/antiplatelets; Z79.51 Long term (current) use of inhaled steroids; Z79.82 Long term (current) use of aspirin; Z79.890 Hormone replacement therapy; Z79.899 Other long term (current) drug therapy; Z82.49 Family history of ischemic heart disease and other diseases of the circulatory system; Z83.3 Family history of diabetes mellitus; Z85.46 Personal history of malignant neoplasm of prostate; Z86.718 Personal history of other venous thrombosis and embolism; Z87.01 Personal history of pneumonia (recurrent); Z90.79 Acquired absence of other genital organ(s); Z95.3 Presence of xenogenic heart valve; Z95.5 Presence of coronary angioplasty implant and graft
CPT/HCPCS: 36415; 36573; 71046; 71250; 72125; 80048; 80053; 80202; 80320; 81003; 82550; 82553; 83036; 83605; 83735; 84484; 85025; 85610; 85730; 87040; 87077; 87186; 93005; 93306; 94640; 94760; 96365; 96375; 96376; 99285

== ENCOUNTER → 2018-11-30 | Outpatient (CLI) | payer OTHER ==
--- NOTE | 2018-11-30 15:34 | US ---
EXAMINATION TYPE: US carotid duplex BILAT DATE OF EXAM: 11/30/2018 COMPARISON: US dated 04/20/1716 CLINICAL HISTORY: I65.29 Occlusion and stenosis of unspecified carotid artery. Known right ICA occlus ion EXAM MEASUREMENTS: RIGHT: Peak Systolic Velocity (PSV) cm/sec ----- Right CCA: 50.3 ----- Right ICA: Occluded ----- Right ECA: 65.1 ICA/CCA ratio: 0.0 RIGHT: End Diastole cm/sec ----- Right CCA: 0.0 ----- Right ICA: Occluded ----- Right ECA: 0.0 LEFT: Peak Systolic Velocity (PSV) cm/sec ----- Left CCA: 54.6 ----- Left ICA: 107.0 ----- Left ECA: 141.6 ICA/CCA ratio: 2.0 LEFT: End Diastole cm/sec ----- Left CCA: 6.8 ----- Left ICA: 15.0 ----- Left ECA: 7.4 VERTEBRALS (direction of flow): Right Vertebral: Antegrade Left Vertebral: Antegrade Rhythm: Arrhythmia Right ICA occluded as seen on previous/ Slightly elevated velocities left ECA IMPRESSION: 1. Redemonstration of occlusion of the right internal carotid artery as seen on the exam of 04/27/20 16. 2. Values approach 50-69% stenosis within the left internal carotid artery. 3. Cardiac arrhythmia. Correlate with EKG. Criteria for Assigning % of Stenosis / Diameter reduction (Estimation based on the indirect measurements of the internal carotid artery velocities (ICA PSV). 1. Normal (no stenosis)=ICA PSV < 125 cm/s: ratio < 2.0: ICA EDV<40 cm/s. 2. Less than 50% stenosis=ICA PSV < 125 cm/s: ratio < 2.0: ICA EDV<40 cm/s. 3. 50 to 69% stenosis=ICA PSV of 125 to 230 cm/s: ration 2.0 ? 4.0: ICA EDV 40-100 cm/s. 4. Greater than 70% stenosis to near occlusion= ICA PSV > 230 cm/s: ratio > 4.0: ICA EDV > 100 cm/s. 5. Near occlusion= ICA PSV velocities may be low or undetectable: variable ratio and ICA EDV. 6. Total occlusion=unable to detect flow.
--- NOTE | 2018-11-30 16:42 | CT ---
EXAMINATION TYPE: CT abdomen wo con DATE OF EXAM: 11/30/2018 COMPARISON: 02/27/2017 INDICATION: Abdominal aortic aneurysm, without rupture. DLP: 775.8 mGycm, Automated exposure control for dose reduction was used. CONTRAST: 0 mL of Isovue 300. Study performed with Oral Contrast TECHNIQUE: Axial images were obtained from above the diaphragm to the pubic rami in the axial plane a t 5 mm thick sections. Reconstructed images are reviewed on the computer in the coronal plane. FINDINGS: Limited CT sections are obtained the lung bases. The lung bases are clear. There is a large anterio r abdominal wall hernia containing mesenteric fat the epigastric region. The opening measures 7.2 cm in size. Periumbilical hernia may contain some of the mesentery and mesenteric fat has an opening 1.[address] ABDOMEN: Liver: Normal Spleen: Normal Pancreas: Normal Adrenal glands: The adrenal glands are normal. Gallbladder: Gallstones are present. Kidneys: No masses are evident. No hydronephrosis is present. No cysts are present. No renal stone s are evident. Aorta: Vascular calcification is within the aorta. The aorta tapers through its visualized course. T he aorta at the level of the diaphragm is 4.3 cm. At the renal arteries was measures 3.3 cm. Above th e bifurcation is measures 2.3 cm. Inferior vena cava: Normal. IMPRESSIONS: 1. Anterior abdominal wall hernia containing mesenteric fat in the epigastric region. 2. Very small anterior abdominal wall hernia at the periumbilical region is present within opening of 1.2 cm. 3. Descending thoracic aortic aneurysm measuring 4.3 cm at the diaphragm within the [id number].
== END | disposition home or self-care (01) ==
LOC: RADCTMAIN 14:28
PROVIDERS: ATTEND Family Medicine
DX: I71.2 Thoracic aortic aneurysm, without rupture (principal); K43.9 Ventral hernia without obstruction or gangrene; I65.23 Occlusion and stenosis of bilateral carotid arteries; I49.9 Cardiac arrhythmia, unspecified
CPT/HCPCS: 74150; 93880

== ENCOUNTER → 2019-05-21 | Outpatient (CLI) | payer OTHER ==
--- NOTE | 2019-05-21 22:16 | MR ---
EXAMINATION TYPE: MR cervical spine wo con DATE OF EXAM: 05/21/2019 COMPARISON: None HISTORY: neck pain CONTRAST: Performed utilizing 0 mL intravenous Gadavist gadolinium contrast. TECHNIQUE: Multiplanar multiecho imaging on a 3.0 Connie magnet is performed through the cervical spin e. FINDINGS: The craniovertebral junction is normal. Vertebral body alignment is normal. C7-T1: No focal disc herniation or significant disc bulge is evident. No spinal canal stenosis or n eural foraminal stenosis is present. C6-7: There is mild disc bulging with anterior thecal sac contact. No spinal canal stenosis is presen t. Neural foramen and mild narrowing greater on the right. C5-6: Mild broad-based disc bulge is present with anterior thecal sac flattening. No AP spinal canal stenosis present. Mild foraminal narrowing is present. C4-5: There is central focal bulge which is broad-based has moderate anterior thecal sac compression. This has cord contact. Mild cord deformity may be present. AP spinal canal stenosis is present measu ring 0.7 cm. Uncovertebral joint hypertrophy is present without significant foraminal narrowing. C3-4: Mild disc bulge is present with anterior thecal sac contact. No spinal canal stenosis present. Mild foraminal narrowing is present.. C2-3: Minimal disc bulge is present without spinal canal stenosis or neural foraminal stenosis. No co rd contact is evident.. IMPRESSIONS: 1. Multilevel mild disc bulging with anterior thecal sac compression discussed above. Mild foraminal narrowing from uncovertebral joint hypertrophy is present. 2. Moderate central focal bulge which is broad-based has moderate anterior thecal sac compression and some cord contact. AP spinal canal stenosis posterior to this disc bulge at C4-5 with the AP dimensi on of 0.7 cm.
== END | disposition home or self-care (01) ==
LOC: RADMRIMAIN 13:27
PROVIDERS: ATTEND Physician Assistant Medical
DX: M48.02 Spinal stenosis, cervical region (principal); M50.11 Cervical disc disorder with radiculopathy, high cervical region
CPT/HCPCS: 72141

== ENCOUNTER 2019-09-12 17:44 | Inpatient (IN) | payer MEDICARE, BC ==
[2019-09-12] MEDS ORDERED: IPRATROPIUM-ALBUTEROL 3 ML NEB INHALATION STA (18:14)
[2019-09-12] MEDS ORDERED: ALBUTEROL NEBULIZED 2.5 MG/3 ML INHALATION STA (18:14)
--- NOTE | 2019-09-12 18:20 | ED ---
General Adult HPI - General Chief complaint: Chest Pain Stated complaint: chest pain Time Seen by Provider: 09/12/19 17:58 Source: patient, RN notes reviewed, old records reviewed Mode of arrival: ambulatory - History of Present Illness Initial comments: 69-year-old male history of CAD, CHF, COPD presenting for evaluation of the anterior chest tightness which is been present throughout the day today approximately 10 hours. Denies chest pain. States he has a tightness in his upper chest that does not radiate. He's had some nausea, no vomiting. He is currently on Coumadin with history of atrial fibrillation. Denies any extremity pain. Denies abdominal pain. Denies fever, or chills. He has had a cough but states this is at baseline as he is a current smoker. - Related Data Home Medications Medication Instructions Recorded Confirmed Diltiazem HCl [Diltiazem HCl 24Hr 240 mg PO DAILY 08/23/14 09/17/18 ER (LA)] Metoprolol Tartrate [Lopressor] 100 mg PO BID 08/23/14 09/17/18 Budesonide-Formot 160-4.5 Mcg 2 puff INHALATION RT-BID 10/07/15 09/17/18 [Symbicort 160-4.5 Mcg Inhaler] Thiamine [Vitamin B-1] 100 mg PO DAILY 11/18/15 09/17/18 Tiotropium 18 Mcg/Puff [Spiriva] 1 cap INHALATION RT-DAILY 03/19/16 09/17/18 Pregabalin [Lyrica] 50 mg PO BID 08/11/16 09/17/18 Spironolactone [Aldactone] 25 mg PO DAILY 01/09/17 09/17/18 Furosemide [Lasix] 40 mg PO BID 09/23/17 09/17/18 Pantoprazole [Protonix] 40 mg PO DAILY 09/23/17 09/17/18 Vit C/E/Zn/Coppr/Lutein/Zeaxan 1 cap PO DAILY 09/23/17 09/17/18 [Preservision Areds 2 Softgel] Albuterol Nebulized [Ventolin 2.5 mg INHALATION RT-Q4H PRN 11/04/17 09/17/18 Nebulized] Clopidogrel [Plavix] 75 mg PO DAILY 11/04/17 09/17/18 Atorvastatin Calcium [Lipitor] 40 mg PO HS 04/04/18 09/17/18 Brimonidine 0.2%/Brinzolami 1% 1 drop BOTH EYES BID 04/04/18 09/17/18 Ketorolac [Toradol] 60 mg IM DAILY 04/04/18 09/17/18 Levothyroxine Sodium [Synthroid] 50 mcg PO DAILY 04/04/18 09/17/18 Warfarin Sodium 6 mg PO SUTUTHSA 04/04/18 09/17/18 Warfarin [Coumadin] 3 mg PO MOWEFR 08/03/18 09/17/18 Previous Rx's Medication Instructions Recorded Folic Acid 1 mg PO DAILY #1 tablet 09/10/14 Ferrous Sulfate [Iron (65 MG 325 mg PO DAILY #30 tab 03/06/17 Elemental)] DAPTOmycin [Cubicin] 500 mg IV DAILY #28 bag 09/21/18 Allergies Allergy/AdvReac Type Severity Reaction Status Date / Time No Known Allergies Allergy Verified 09/12/19 17:56 Review of Systems ROS Statement: Those systems with pertinent positive or pertinent negative responses have been documented in the HPI. ROS Other: All systems not noted in ROS Statement are negative. Past Medical History Past Medical History: Atrial Fibrillation, Atrial Flutter, Coronary Artery Disease (CAD), Cancer, Chest Pain / Angina, Heart Failure, COPD, Deep Vein Thrombosis (DVT), Eye Disorder, GERD/Reflux, GI Bleed, Hearing Disorder / Deafness, Hyperlipidemia, Hypertension, Liver Disease, Memory Impairment, Pneumonia, Vascular Disorder Additional Past Medical History / Comment(s): Stable dissection of the descending aorta, chronic atrial fibrillation and is anticoagulated with warfarin, aortic valve replacement with a bioprosthetic valve, pulmonary hypertension, chronic hypoxic respiratory failure with home O2 at , previous pneumonia 2008 and 2014, prostate cancer with prostatectomy, DVT R lower leg x2, macular degeneration L eye, left arm fracture, chronic tinnitus in both ears, gastritis, lower GIm bleed, UTI, liver cirrhosis related to history of alcoholism, hepatitis C at age 14yrs. Last Myocardial Infarction Date:: unsure History of Any Multi-Drug Resistant Organisms: None Reported Date of last positivie culture/infection: None MDRO Source:: None Past Surgical History: Cardiac Valve Replacement, Heart Catheterization, Heart Catheterization With Stent, Hernia Repair, Orthopedic Surgery, Prostate Surgery Additional Past Surgical History / Comment(s): Aortic valve replacement, prostatectomy, right inguinal hernia repair 2, bilateral knee arthroscopy, colonoscopy/polypectomy, EGD, right leg varicose vein stripping, removal of a blood clot from the right lower extremity, cervical surgery d/t injury in [place] and removal of shrapnel's from the right shoulder Past Anesthesia/Blood Transfusion Reactions: No Reported Reaction Date of Last Stent Placement:: 2016 Past Psychological History: No Psychological Hx Reported Smoking Status: Current every day smoker Past Alcohol Use History: Daily Past Drug Use History: None Reported - Past Family History Mother Family Medical History: Diabetes Mellitus Additional Family Medical History / Comment(s): Mother at age 74 from diabetic complications. Father Family Medical History: Congestive Heart Failure (CHF) Additional Family Medical History / Comment(s): Father at age 91 yrs. General Exam General appearance: alert, in no apparent distress Head exam: Present: atraumatic, normocephalic Eye exam: Present: normal appearance, PERRL ENT exam: Present: normal exam Neck exam: Present: normal inspection. Absent: tenderness, meningismus Respiratory exam: Present: wheezes, rhonchi, decreased breath sounds. Absent: respiratory distress Cardiovascular Exam: Present: regular rate, normal rhythm GI/Abdominal exam: Present: soft. Absent: distended, tenderness Extremities exam: Present: pedal edema, calf tenderness Neurological exam: Present: alert, oriented X3, CN II-XII intact. Absent: motor sensory deficit Psychiatric exam: Present: normal affect, normal mood Skin exam: Present: warm, dry, intact. Absent: cyanosis, diaphoretic Course Vital Signs 09/12/19 09/12/19 09/12/19 17:52 19:26 19:42 Temperature 98.2 F Pulse Rate 60 57 L 63 Respiratory 18 Rate Blood Pressure 110/53 O2 Sat by Pulse 89 L Oximetry EKG Findings - EKG Comments: EKG Findings:: EKG: Atrial fibrillation, rate is 64, QRS duration 88, QTC 398, no ST segment elevation Medical Decision Making - Medical Decision Making 69-year-old male with CHF, COPD, CAD presenting with chest tightness and cough. On exam he has bilateral wheezing and rhonchi. He has a low oxygen saturation upon arrival. EKG showing atrial fibrillation with no ischemic change, he has a chest x-ray shows a persistent right lower lobe infiltrate, may be chronic but the patient is initiated on antibiotics. He has a normal CBC, normal CMP, he is a therapeutic INR, troponin is negative. BNP is negative. He will be admitted for treatment of COPD exacerbation. Case is discussed with Dr. Hopkins who will admit. - Lab Data Result diagrams: 09/12/19 18:37 09/12/19 18:37 Lab Results 09/12/19 09/12/19 09/12/19 Range/Units 18:37 18:37 18:37 WBC 8.4 (3.8-10.6) k/uL RBC 4.31 (4.30-5.90) m/uL Hgb 13.8 (13.0-17.5) gm/dL Hct 43.7 (39.0-53.0) % MCV 101.4 H (80.0-100.0) fL MCH 32.1 (25.0-35.0) pg MCHC 31.6 (31.0-37.0) g/dL RDW 13.6 (11.5-15.5) % Plt Count 129 L (150-450) k/uL Neutrophils % 82 % Lymphocytes % 9 % Monocytes % 4 % Eosinophils % 1 % Basophils % 1 % Neutrophils # 6.9 (1.3-7.7) k/uL Lymphocytes # 0.8 L (1.0-4.8) k/uL Monocytes # 0.4 (0-1.0) k/uL Eosinophils # 0.1 (0-0.7) k/uL Basophils # 0.1 (0-0.2) k/uL Macrocytosis Slight PT (9.0-12.0) sec INR (<1.2) APTT (22.0-30.0) sec Sodium 138 (137-145) mmol/L Potassium 4.4 (3.5-5.1) mmol/L Chloride 98 (98-107) mmol/L Carbon Dioxide 33 H (22-30) mmol/L Anion Gap 7 mmol/L BUN 13 (9-20) mg/dL Creatinine 0.79 (0.66-1.25) mg/dL Est GFR (CKD-EPI)AfAm >90 (>60 ml/min/1.73 sqM) Est GFR (CKD-EPI)NonAf >90 (>60 ml/min/1.73 sqM) Glucose 125 H (74-99) mg/dL Calcium 8.7 (8.4-10.2) mg/dL Magnesium 1.9 (1.6-2.3) mg/dL Total Bilirubin 0.9 (0.2-1.3) mg/dL AST 47 (17-59) U/L ALT 17 (4-49) U/L Alkaline Phosphatase 170 H (38-126) U/L Troponin I (0.000-0.034) ng/mL NT-Pro-B Natriuret Pep 633 pg/mL Total Protein 7.2 (6.3-8.2) g/dL Albumin 4.1 (3.5-5.0) g/dL 09/12/19 09/12/19 Range/Units 18:37 18:37 WBC (3.8-10.6) k/uL RBC (4.30-5.90) m/uL Hgb (13.0-17.5) gm/dL Hct (39.0-53.0) % MCV (80.0-100.0) fL MCH (25.0-35.0) pg MCHC (31.0-37.0) g/dL RDW (11.5-15.5) % Plt Count (150-450) k/uL Neutrophils % % Lymphocytes % % Monocytes % % Eosinophils % % Basophils % % Neutrophils # (1.3-7.7) k/uL Lymphocytes # (1.0-4.8) k/uL Monocytes # (0-1.0) k/uL Eosinophils # (0-0.7) k/uL Basophils # (0-0.2) k/uL Macrocytosis PT 20.4 H (9.0-12.0) sec INR 2.1 H (<1.2) APTT 36.5 H (22.0-30.0) sec Sodium (137-145) mmol/L Potassium (3.5-5.1) mmol/L Chloride (98-107) mmol/L Carbon Dioxide (22-30) mmol/L Anion Gap mmol/L BUN (9-20) mg/dL Creatinine (0.66-1.25) mg/dL Est GFR (CKD-EPI)AfAm (>60 ml/min/1.73 sqM) Est GFR (CKD-EPI)NonAf (>60 ml/min/1.73 sqM) Glucose (74-99) mg/dL Calcium (8.4-10.2) mg/dL Magnesium (1.6-2.3) mg/dL Total Bilirubin (0.2-1.3) mg/dL AST (17-59) U/L ALT (4-49) U/L Alkaline Phosphatase (38-126) U/L Troponin I <0.012 (0.000-0.034) ng/mL NT-Pro-B Natriuret Pep pg/mL Total Protein (6.3-8.2) g/dL Albumin (3.5-5.0) g/dL Disposition Clinical Impression: Acute exacerbation of chronic obstructive pulmonary disease (COPD) Disposition: ADMITTED IP TO THIS HOSP Condition: Stable Is patient prescribed a controlled substance at d/c from ED?: No Referrals: [facility],Clinic [Primary Care Provider] - 1-2 days Decision to Admit Reason: Admit from EC Decision Date: 09/12/19 Decision Time: 19:52
[2019-09-12 19:04] LABS: Basophils # (A) 0.1 k/uL (0-0.2); Basophils % (A) 1 %; Eosinophils # (A) 0.1 k/uL (0-0.7); Eosinophils % (A) 1 %; HCT 43.7 % (39.0-53.0); HGB 13.8 gm/dL (13.0-17.5); Lymphocytes # (A) 0.8 k/uL (1.0-4.8); Lymphocytes % (A) 9 %; MCH 32.1 pg (25.0-35.0); MCHC 31.6 g/dL (31.0-37.0); MCV 101.4 fL (80.0-100.0); Macrocytosis Slight; Mean Platelet Volume 8.7; Monocytes # (A) 0.4 k/uL (0-1.0); Monocytes % (A) 4 %; Neutrophils # (A) 6.9 k/uL (1.3-7.7); Neutrophils % (A) 82 %; Platelet Count 129 k/uL (150-450); RBC 4.31 m/uL (4.30-5.90); RDW 13.6 % (11.5-15.5); WBC 8.4 k/uL (3.8-10.6)
[2019-09-12 19:13] LABS: ALT 17 U/L (4-49); AST 47 U/L (17-59); African American GFR (CKD) >90 (>60 ml/min/1.73 sqM); Albumin 4.1 g/dL (3.5-5.0); Alkaline Phosphatase 170 U/L (38-126); Anion Gap 7 mmol/L; Blood Urea Nitrogen 13 mg/dL (9-20); Calcium 8.7 mg/dL (8.4-10.2); Carbon Dioxide 33 mmol/L (22-30); Chloride 98 mmol/L (98-107); Glucose 125 mg/dL (74-99); Magnesium 1.9 mg/dL (1.6-2.3); Non-African American GFR(CKD) >90 (>60 ml/min/1.73 sqM); Potassium 4.4 mmol/L (3.5-5.1); Sodium 138 mmol/L (137-145); Total Bilirubin 0.9 mg/dL (0.2-1.3); Total Protein 7.2 g/dL (6.3-8.2)
[2019-09-12 19:20] LABS: INR 2.1 (<1.2); Partial Thromboplastin Time 36.5 sec (22.0-30.0); Prothrombin Time 20.4 sec (9.0-12.0)
--- NOTE | 2019-09-12 19:29 | XR ---
EXAMINATION TYPE: XR chest 2V DATE OF EXAM: 09/12/2019 COMPARISON: 09/17/2018 INDICATION: Chest pain TECHNIQUE: Frontal and lateral views of the chest are obtained. FINDINGS: There are surgical clips the right upper lung field present previously. Some mild filtrate may be in the right lower lobe, this was present previously. The heart size is normal. The pulmonary vasculature is normal. IMPRESSION: 1. Mild right lower lobe infiltrate present previously. This may be chronic. Recurrent infiltrate cou ld be considered.
[2019-09-12] MEDS ORDERED: IPRATROPIUM-ALBUTEROL 3 ML NEB INHALATION PRN (19:46)
[2019-09-12] MEDS ORDERED: cefTRIAXone IN SWFI 1,000 MG/10 ML SYRINGE IVP STA (19:48)
[2019-09-12] MEDS: IPRATROPIUM-ALBUTEROL 3 ML NEB INHALATION SCH (20:31)
[2019-09-12] MEDS: methylPREDNISolone SOD SUCCI 125 MG/2 ML VIAL IV SCH (21:55)
[2019-09-13] MEDS: methylPREDNISolone SOD SUCCI 125 MG/2 ML VIAL IV SCH ×4 (05:26→23:23)
[2019-09-13 06:54] LABS: Glucose,Whole Blood 144 mg/dL (75-99)
[2019-09-13] MEDS: IPRATROPIUM-ALBUTEROL 3 ML NEB INHALATION SCH ×4 (07:17→19:10)
[2019-09-13] MEDS: INSULIN ASPART (NovoLOG) 100 UNIT/ML VIAL SQ SCH ×4 (08:41→20:25)
[2019-09-13] MEDS: LEVOTHYROXINE 50 MCG TAB PO SCH (11:10)
[2019-09-13] MEDS: PREGABALIN 50 MG CAP PO SCH ×2 (11:10→20:25)
[2019-09-13] MEDS: METOPROLOL TARTRATE 50 MG TAB PO SCH ×2 (11:12→20:25)
[2019-09-13] MEDS: DILTIAZEM CD 240 MG CAP.ER.24H PO SCH (11:12)
[2019-09-13] MEDS: PANTOPRAZOLE 40 MG TABLET PO SCH (11:13)
[2019-09-13] MEDS: THIAMINE 100 MG TAB PO SCH (11:13)
[2019-09-13] MEDS: FOLIC ACID 1 MG TAB PO SCH (11:13)
[2019-09-13] MEDS: FERROUS SULFATE 325 MG TAB PO SCH (11:13)
[2019-09-13 11:56] LABS: Glucose,Whole Blood 166 mg/dL (75-99)
[2019-09-13] MEDS ORDERED: cefTRIAXone 1,000 MG VIAL (IM USE) IM SCH (15:15)
[2019-09-13 16:35] LABS: Glucose,Whole Blood 127 mg/dL (75-99)
--- NOTE | 2019-09-13 16:46 | HP ---
HISTORY AND PHYSICAL DATE OF SERVICE: 09/13/2019 CHIEF COMPLAINT: Chest pain and shortness of breath. HISTORY OF PRESENT ILLNESS: This 69-year-old gentleman with a past medical history of multiple medical problems, including history of atrial fibrillation, atrial flutter, CAD, CHF, COPD, DVT, GERD, being followed by Dr. Colin in the outpatient setting, was having progressively shortness of breath. The patient came to [facility]. Evaluation showed features of COPD, acute exacerbation. The patient had low oxygen saturation on arrival and the patient was admitted for further evaluation and treatment. A chest x- ray which was done in the ER was personally reviewed by me and showed bilateral increased vascular markings. There is no history of any fever, rigor or chills. No history of headache, loss of consciousness, seizures at this time. Mild right lower infiltrate was noted, chronic changes. PAST MEDICAL HISTORY: History of atrial fibrillation/flutter, history of CAD, history of chest pain, CHF, COPD, DVT, history of GERD, GI bleed, hypertension, hyperlipidemia. HOME MEDICATIONS: 1. Vitamin B1 (thiamine) 100 mg p.o. daily. 2. Klor-Con 20 mEq p.o. b.i.d. 3. Synthroid 50 mcg p.o. daily. 4. PreserVision. 5. Protonix 40 mg daily. 6. Folic acid 1 mg. 7. Iron sulfate 320 mg p.o. daily. 8. Spiriva 1 puff daily. 9. Lyrica 50 mg p.o. b.i.d. 10.Symbicort 160/4.5 two puffs b.i.d. 11.Lipitor 40 mg at bedtime. 12.Coumadin 3 mg Tuesday, Tuesday, Tuesday, , Tuesday. 13.Coumadin 6 mg on Tuesday and Tuesday. 14.Ecotrin 81 mg p.o. daily. 15.Ventolin 2.5 b.i.d. p.r.n. 16.Aldactone 25 mg p.o. daily. 17.Lasix 40 mg p.o. b.i.d. 18.Lopressor 100 mg p.o. b.i.d. 19.Diltiazem 240 mg p.o. daily. 20.Prednisone taper. 21.DuoNeb q.i.d. 22.Ceftin 500 mg p.o. b.i.d. ALLERGIES: NONE. FAMILY HISTORY: History of diabetes mellitus in the family. SOCIAL HISTORY: History of smoking and history of previous substance abuse and alcohol usage. REVIEW OF SYSTEMS: ENT: Diminished hearing. Diminished vision. CARDIOVASCULAR SYSTEM: As mentioned earlier. RESPIRATORY SYSTEM: As mentioned earlier. GI: No nausea, vomiting. : No dysuria or retention. NERVOUS SYSTEM: No numbness, weakness. ALLERGY/IMMUNOLOGY: No asthma, hayfever. MUSCULOSKELETAL: As mentioned earlier. HEMATOLOGY/ONCOLOGY: No history of anemia. ENDOCRINE: No history of diabetes, hypothyroidism. CONSTITUTIONAL: As mentioned earlier. DERMATOLOGY: Negative. RHEUMATOLOGY: Negative. PSYCHIATRY: As mentioned earlier. PHYSICAL EXAMINATION: Patient alert and oriented x3. Pulse 81, blood pressure 123/57, respiration 19, temperature 98.4, pulse ox 96% on 2 L. HEENT: Conjunctivae normal. NECK: No jugular venous distention. CARDIOVASCULAR SYSTEM: S1, S2 muffled. RESPIRATORY SYSTEM: Breath sounds diminished at the bases. Bilateral scattered rhonchi and crackles. Expiratory wheezing also present. ABDOMEN: Soft, non-tender. No mass palpable. LEGS: No edema. No swelling. NERVOUS SYSTEM: Higher functions as mentioned earlier. Moves all 4 limbs. No focal motor or sensory deficit. LYMPHATICS: No lymph node palpable in neck, axillae or groin. SKIN: No ulcer, rash, bleeding. JOINTS: No active deforming arthropathy. LABS: CBC noted. Otherwise sodium 138, potassium 4.4. ASSESSMENT: 1. Shortness of breath with chronic obstructive pulmonary disease, acute exacerbation, with acute purulent tracheobronchitis. 2. Continued ongoing nicotine dependence. 3. Thrombocytopenia. 4. Obesity with body mass index of 32.2. 5. Atrial flutter/fibrillation. 6. History of coronary artery disease, stent. 7. History of congestive heart failure. 8. History of chronic obstructive pulmonary disease. 9. Deep venous thrombosis. 10.Gastroesophageal reflux disease. 11.History of gastrointestinal bleed. 12.Hypertension. 13.Hyperlipidemia. 14.History of liver disease. 15.History of memory impairment. 16.History of stable dissection of the descending aorta. 17.Chronic atrial fibrillation, adequately covered with Coumadin. 18.Aortic valve replacement with a bioprosthetic aortic valve. 19.Pulmonary hypertension. 20.Chronic hypoxic respiratory failure, on home oxygen nasal cannula. 21.History of previous pneumonia. 22.History of deep venous thrombosis. 23.History of tinnitus. 24.History of liver cirrhosis related to alcoholism. 25.History of hepatitis C. 26.History of aortic valve replacement. 27.Prostatectomy. 28.History of continued ongoing nicotine dependence. 29.History of ethanol. RECOMMENDATIONS AND DISCUSSION: In this 69-year-old gentleman admitted with multiple complex medical issues, we will monitor the patient closely, continue the current medications, continue with symptomatic treatment. Will optimize the bronchodilators. Empiric antibiotic treatment. I would recommend direct admission at this time because of the multiple complex medical issues. I would also recommend resuming the home medications. Guarded prognosis because of multiple complex medical issues. Further recommendations to follow. I would recommend more than a 2-night stay in the hospital for management and treatment of the above-mentioned multiple complex medical issues. MMARABELLAL / BARBIEN: [id number] / MTDD
[2019-09-13] MEDS: FUROSEMIDE 40 MG TAB PO SCH (17:09)
[2019-09-13] MEDS ORDERED: WARFARIN 3 MG TAB PO SCH (18:00)
[2019-09-13] MEDS: SYMBICORT 160-4.5 MCG INHALER INHALATION SCH (19:10)
[2019-09-13 20:01] LABS: Glucose,Whole Blood 175 mg/dL (75-99)
[2019-09-13] MEDS: POTASSIUM CHLORIDE ER 20 MEQ TAB.ER PO SCH (20:25)
[2019-09-13] MEDS ORDERED: ATORVASTATIN 40 MG TAB PO SCH (21:00)
[2019-09-13 21:25] VITALS: RESP 20
[2019-09-14] MEDS: methylPREDNISolone SOD SUCCI 125 MG/2 ML VIAL IV SCH (05:06)
[2019-09-14] MEDS: LEVOTHYROXINE 50 MCG TAB PO SCH (05:07)
[2019-09-14 05:20] VITALS: BP 114/69; TEMP 98.4
[2019-09-14 07:02] LABS: Glucose,Whole Blood 143 mg/dL (75-99)
[2019-09-14] MEDS: SYMBICORT 160-4.5 MCG INHALER INHALATION SCH (07:27)
[2019-09-14] MEDS: IPRATROPIUM-ALBUTEROL 3 ML NEB INHALATION SCH ×2 (07:27→11:01)
[2019-09-14 07:49] LABS: Basophils % (A) 0 %; Eosinophils % (A) 0 %; HCT 44.3 % (39.0-53.0); HGB 13.7 gm/dL (13.0-17.5); Lymphocytes # (A) 0.6 k/uL (1.0-4.8); Lymphocytes % (A) 4 %; MCH 31.3 pg (25.0-35.0); MCV 100.9 fL (80.0-100.0); Macrocytosis Slight; Mean Platelet Volume 8.7; Monocytes # (A) 0.4 k/uL (0-1.0); Monocytes % (A) 3 %; Neutrophils # (A) 12.8 k/uL (1.3-7.7); Neutrophils % (A) 92 %; Platelet Count 125 k/uL (150-450); RBC 4.39 m/uL (4.30-5.90); RDW 13.6 % (11.5-15.5); WBC 13.9 k/uL (3.8-10.6)
[2019-09-14 07:58] LABS: INR 2.4 (<1.2); Prothrombin Time 23.3 sec (9.0-12.0)
[2019-09-14] MEDS ORDERED: NON FORMULARY DRUG (Tiotropium 18 Mcg/Puff 1 CAP) INHALATION SCH (08:00)
[2019-09-14 08:10] LABS: African American GFR (CKD) >90 (>60 ml/min/1.73 sqM); Anion Gap 5 mmol/L; Blood Urea Nitrogen 19 mg/dL (9-20); Calcium 9.5 mg/dL (8.4-10.2); Carbon Dioxide 35 mmol/L (22-30); Chloride 98 mmol/L (98-107); Glucose 155 mg/dL (74-99); Non-African American GFR(CKD) >90 (>60 ml/min/1.73 sqM); Potassium 4.3 mmol/L (3.5-5.1); Sodium 138 mmol/L (137-145)
[2019-09-14] MEDS: THIAMINE 100 MG TAB PO SCH (08:37)
[2019-09-14] MEDS: DILTIAZEM CD 240 MG CAP.ER.24H PO SCH (08:37)
[2019-09-14] MEDS: FERROUS SULFATE 325 MG TAB PO SCH (08:37)
[2019-09-14] MEDS: FOLIC ACID 1 MG TAB PO SCH (08:37)
[2019-09-14] MEDS: INSULIN ASPART (NovoLOG) 100 UNIT/ML VIAL SQ SCH (08:37)
[2019-09-14] MEDS: METOPROLOL TARTRATE 50 MG TAB PO SCH (08:38)
[2019-09-14] MEDS: PANTOPRAZOLE 40 MG TABLET PO SCH (08:38)
[2019-09-14] MEDS: FUROSEMIDE 40 MG TAB PO SCH (08:38)
[2019-09-14] MEDS: POTASSIUM CHLORIDE ER 20 MEQ TAB.ER PO SCH (08:38)
[2019-09-14] MEDS: PREGABALIN 50 MG CAP PO SCH (08:39)
[2019-09-14] MEDS ORDERED: ASPIRIN 81 MG PO SCH (09:00)
[2019-09-14] MEDS ORDERED: VIT A,C & E-LUTEIN-MINERALS 1 EACH TAB PO SCH (09:00)
[2019-09-14] MEDS ORDERED: SPIRONOLACTONE 25 MG TAB PO SCH (09:00)
[2019-09-14 11:04] VITALS: PULSE 80
[2019-09-14 11:15] LABS: Glucose,Whole Blood 159 mg/dL (75-99)
--- NOTE | 2019-09-14 13:01 | CDI ---
Documentation Clarification Form Date: 09/14/2019 CDS: Gisele Edwards, CCS, CCDS Admit Date: 09/12/2019 Patient Name: Sylvain Duran Discharge Date: ATTENTION: The Clinical Documentation Specialists (CDI) and [facility] Coding Staff appreciate your assistance in clarifying documentation. Please respond to the clarification below the line at the bottom and electronically sign. The CDI & [facility] Coding staff will review the response and follow-up if needed. Please note: Queries are made part of the Legal Health Record. If you have any questions, please contact the author of this message via ITS. Dear Dr. Fred Desir: CHF is documented in the 09/12 ED note as history of CHF & also in the 09/13 History & Physical as a history. Cardiology has not been consulted. The patient is admitted with an acute exacerbation of COPD & acute purulent tracheobronchitis with history of CHF, nos; chronic hypoxic respiratory failure on home O2 and is a current smoker. History/Risk Factors: Previous DVTs, CAD with AVR, chronic atrial fibrillation & atrial flutter. Clinical Indicators: Presented to the ED on 09/12 with chest pain & SOB. VS: P 60 - 57*, R 18, BP 110/53, PO 89 RA BNP: 633 Echocardiogram Results (most recent 09/18/2018): Moderate concentric LVH, Left ventricular systolic function is normal w/EF 60-65%. Mild aortic valve sclerosis, Mild MR, Mild TR. Chest X Ray 09/12: Bilateral increased vascular markings. Mild right lower infiltrated noted, chronic changes. Treatment: INH Ventolin, IV Rocephin, IV Solumedrol, Insulin sliding scale, po Cardizem, po Lasix 40 mg BID (home dose), O2 3Lnc. In your professional opinion, can you please clarify the acuity and type of CHF if known? Heart Failure is ruled out Chronic Diastolic Heart Failure Unable to Determine Other, please specify (Last Revision: October 2017) Heart Failure is ruled out MTDD
[2019-09-15] MEDS ORDERED: WARFARIN 3 MG TAB PO SCH (18:00)
--- NOTE | 2019-09-17 08:33 | P.DS ---
Providers Date of admission: 09/13/19 13:20 Expected date of discharge: 09/14/19 Attending physician: Sawyer Hopkins Primary care physician: [facility] Hospital Course: Final diagnosis Shortness of breath with chronic obstructive pulmonary disease, acute exacerbation, with acute purulent tracheobronchitis Continued ongoing nicotine dependence Thrombocytopenia Ruled out congestive heart failure Obesity with a body mass index of 32.2 Atrial flutter, fibrillation History of coronary artery disease, stent History of chronic obstructive pulmonary disease Deep vein thrombosis next line gastroesophageal reflux disease History of gastrointestinal bleed Hypertension Hyperlipidemia history of liver disease History of memory impairment History of stable dissection of the descending aorta Chronic atrial fibrillation, adequately covered with Coumadin Aortic valve replacement with bioprosthetic aortic valve Pulmonary hypertension Chronic hypoxic respiratory failure, on home oxygen nasal cannula History of previous pneumonia History of deep vein thrombosis history of tinnitus History of liver cirrhosis related to alcoholism History of hepatitis C History of aortic valve replacement Prostatectomy History of continued ongoing nicotine dependence History of ethanol Discharge disposition Patient is being discharged in a stable condition with guarded prognosis to home and will follow-up with the Dr. Colin in the outpatient setting upon discharge. Patient will continue on oral antibiotics in the form of Ceftin for the next 3 days along with prednisone taper and bronchodilators. Total time taken is 35 minutes. History of present illness This is a 69-year-old male who was recently admitted with progressive shortness of breath along with acute exacerbation of COPD and was being closely monitored. During hospitalization patient had an x-ray of the chest showing increased bilateral vascular markings along with mild right lower infiltrate with chronic changes noted. Patient was initiated on antibiotics along with bronchodilators and IV steroids. Patient will continue on bronchodilators along with the prednisone taper and oral antibiotics in the form of Ceftin twice daily for the next 3 days. Patient would like to go home today. Currently patient's condition is stable and is ready for discharge today. No reports of chest pain, palpitations, or worsening shortness of breath. Patient is afebrile. No reports of nausea or vomiting and patient is tolerating diet. Guarded prognosis. On exam vital signs are stable. Temp is 98.4 F, pulse is 72, respirations are 20, blood pressures 114/69, oxygen saturation is 96 % on 2 L via nasal cannula. Cardio S1, S2 are muffled. Respiratory system shows diminished breath sounds at the bases with some mild expiratory wheezing noted. Abdomen is soft, and nontender. Nervous system shows no focal deficits. Please refer to medication reconciliation sheet for a list of medications. Patient Condition at Discharge: Stable Plan - Discharge Summary Discharge Rx Participant: No New Discharge Prescriptions: New Cefuroxime Axetil [Ceftin] 500 mg PO BID 3 Days #6 tab Ipratropium-Albuterol Nebulize [Duoneb 0.5 mg-3 mg/3 ml Soln] 3 ml INHALATION RT-QID #120 ml predniSONE 10 mg PO DIRECTED #30 tab Continue Metoprolol Tartrate [Lopressor] 100 mg PO BID Diltiazem HCl [Diltiazem HCl 24Hr ER (LA)] 240 mg PO DAILY Folic Acid 1 mg PO DAILY #1 tablet Budesonide-Formot 160-4.5 Mcg [Symbicort 160-4.5 Mcg Inhaler] 2 puff INHALATION RT-BID Thiamine [Vitamin B-1] 100 mg PO DAILY Tiotropium 18 Mcg/Puff [Spiriva] 1 cap INHALATION RT-DAILY Pregabalin [Lyrica] 50 mg PO BID Spironolactone [Aldactone] 25 mg PO DAILY Vit C/E/Zn/Coppr/Lutein/Zeaxan [Preservision Areds 2 Softgel] 1 cap PO DAILY Pantoprazole [Protonix] 40 mg PO AC-BRKFST Furosemide [Lasix] 40 mg PO BID Albuterol Nebulized [Ventolin Nebulized] 2.5 mg INHALATION RT-BID PRN PRN Reason: Shortness Of Breath Atorvastatin Calcium [Lipitor] 40 mg PO HS Levothyroxine Sodium [Synthroid] 50 mcg PO DAILY Warfarin Sodium 6 mg PO WESA Warfarin [Coumadin] 3 mg PO SUMOTUTHFR Potassium Chloride [Klor-Con 20] 20 meq PO BID Ferrous Gluconate 324 mg PO DAILY Aspirin EC [Ecotrin Low Dose] 81 mg PO DAILY Discharge Medication List Diltiazem HCl [Diltiazem HCl 24Hr ER (LA)] 240 mg PO DAILY 08/23/14 [History] Metoprolol Tartrate [Lopressor] 100 mg PO BID 08/23/14 [History] Folic Acid 1 mg PO DAILY #1 tablet 09/10/14 [Rx] Budesonide-Formot 160-4.5 Mcg [Symbicort 160-4.5 Mcg Inhaler] 2 puff INHALATION RT-BID 10/07/15 [History] Thiamine [Vitamin B-1] 100 mg PO DAILY 11/18/15 [History] Tiotropium 18 Mcg/Puff [Spiriva] 1 cap INHALATION RT-DAILY 03/19/16 [History] Pregabalin [Lyrica] 50 mg PO BID 08/11/16 [History] Spironolactone [Aldactone] 25 mg PO DAILY 01/09/17 [History] Furosemide [Lasix] 40 mg PO BID 09/23/17 [History] Pantoprazole [Protonix] 40 mg PO AC-BRKFST 09/23/17 [History] Vit C/E/Zn/Coppr/Lutein/Zeaxan [Preservision Areds 2 Softgel] 1 cap PO DAILY 09/23/17 [History] Albuterol Nebulized [Ventolin Nebulized] 2.5 mg INHALATION RT-BID PRN 11/04/17 [History] Atorvastatin Calcium [Lipitor] 40 mg PO HS 04/04/18 [History] Levothyroxine Sodium [Synthroid] 50 mcg PO DAILY 04/04/18 [History] Warfarin Sodium 6 mg PO WESA 04/04/18 [History] Warfarin [Coumadin] 3 mg PO SUMOTUTHFR 08/03/18 [History] Aspirin EC [Ecotrin Low Dose] 81 mg PO DAILY 09/12/19 [History] Ferrous Gluconate 324 mg PO DAILY 09/12/19 [History] Potassium Chloride [Klor-Con 20] 20 meq PO BID 09/12/19 [History] Cefuroxime Axetil [Ceftin] 500 mg PO BID 3 Days #6 tab 09/13/19 [Rx] Ipratropium-Albuterol Nebulize [Duoneb 0.5 mg-3 mg/3 ml Soln] 3 ml INHALATION RT-QID #120 ml 09/13/19 [Rx] predniSONE 10 mg PO DIRECTED #30 tab 09/13/19 [Rx] Follow up Appointment(s)/Referral(s): [facility],Clinic [Primary Care Provider] - 09/20/19 3:00 pm Ambulatory/Diagnostic Orders: Complete Blood Count w/diff [LAB.AMB] Location: None Selected Activity/Diet/Wound Care/Special Instructions: Activity Limited until follow-up Continue current diet Into the with antibiotics until finished Follow up with primary care provider upon discharge By mouth labs in 2-3 days Discharge Disposition: HOME SELF-CARE
--- NOTE | 2019-09-17 15:36 | CDI ---
Documentation Clarification Form Date: 09/17/19 From: Tamar Devine Phone: If you have a question about this query, please contact Rianna Fontanez, Group Counselor at [phone] between 8am and 5pm. Admit Date: 09/13/19 Discharge Date: 09/14/19 Patient Name: Sylvain Duran Visit Number: [id number] ATTENTION: The Clinical Documentation Specialists (CDI) and [facility] Coding Staff appreciate your assistance in clarifying documentation. Please respond to the clarification below the line at the bottom and electronically sign. The CDI & [facility] Coding staff will review the response and follow-up if needed. Please note: Queries are made part of the Legal Health Record. If you have any questions, please contact the author of this message via ITS. Dear Dr. Fred Desir, Atrial Flutter is documented in the ED note, H&P & DS. History/Risk factors: chronic atrial fibrillation, COPD w AE, chronic hypoxic respiratory failure Clinical Indicators: SOB & chest pain EKG/telemetry: atrial fibrillation, rate is 64, QRS duration 88, QTC 398, no ST segment elevation Treatment: Diltiazem Cd 240 mg po, Warfarin 3 mg po S-F Consults: none In your professional opinion, in order to capture the severity of condition; can you please clarify the type of Atrial Flutter if known? Typical/Type I Atypical/Type II Other, please specify Unable to determine Unable to determine MTDD
== END 2019-09-14 12:40 | disposition home or self-care (01) | DRG 191 ==
LOC: EC 17:44 → 1SOBS 19:47 → OBSVTOIN 09-13 13:20 → 5NMEDONC 09-13 17:43
PROVIDERS: ADMIT Internal Medicine; ATTEND Internal Medicine
DX: J44.0 Chronic obstructive pulmonary disease with (acute) lower respiratory infection (principal); I48.20 Chronic atrial fibrillation, unspecified; J96.11 Chronic respiratory failure with hypoxia; I48.92 Unspecified atrial flutter; D69.6 Thrombocytopenia, unspecified; I27.20 Pulmonary hypertension, unspecified; Z99.81 Dependence on supplemental oxygen; K70.30 Alcoholic cirrhosis of liver without ascites; I11.0 Hypertensive heart disease with heart failure; I50.9 Heart failure, unspecified; J20.9 Acute bronchitis, unspecified; J44.1 Chronic obstructive pulmonary disease with (acute) exacerbation; I25.10 Atherosclerotic heart disease of native coronary artery without angina pectoris; K21.9 Gastro-esophageal reflux disease without esophagitis; F10.20 Alcohol dependence, uncomplicated; E78.5 Hyperlipidemia, unspecified; B19.20 Unspecified viral hepatitis C without hepatic coma; H91.90 Unspecified hearing loss, unspecified ear; H35.30 Unspecified macular degeneration; H93.13 Tinnitus, bilateral; I83.91 Asymptomatic varicose veins of right lower extremity; E66.9 Obesity, unspecified; Z68.32 Body mass index [BMI] 32.0-32.9, adult; F17.210 Nicotine dependence, cigarettes, uncomplicated; Z71.6 Tobacco abuse counseling; Z79.82 Long term (current) use of aspirin; Z79.51 Long term (current) use of inhaled steroids; Z79.890 Hormone replacement therapy; Z79.01 Long term (current) use of anticoagulants; Z79.02 Long term (current) use of antithrombotics/antiplatelets; Z79.899 Other long term (current) drug therapy; Z87.01 Personal history of pneumonia (recurrent); Z86.718 Personal history of other venous thrombosis and embolism; Z85.46 Personal history of malignant neoplasm of prostate; Z90.79 Acquired absence of other genital organ(s); Z95.5 Presence of coronary angioplasty implant and graft; Z87.19 Personal history of other diseases of the digestive system; Z87.81 Personal history of (healed) traumatic fracture; Z87.440 Personal history of urinary (tract) infections; Z95.3 Presence of xenogenic heart valve; Z82.49 Family history of ischemic heart disease and other diseases of the circulatory system; Z83.3 Family history of diabetes mellitus
CPT/HCPCS: 36415; 71046; 80048; 80053; 80320; 83735; 83880; 84484; 85025; 85610; 85730; 87040; 93005; 94640; 94760; 96374; 99285

== ENCOUNTER → 2019-09-18 | Outpatient (CLI) | payer OTHER ==
--- NOTE | 2019-09-18 14:22 | CT ---
EXAMINATION TYPE: CT chest wo con DATE OF EXAM: 09/18/2019 COMPARISON: Prior CT chest 09/17/2018 HISTORY: Thoracic aortic aneurysm CT DLP: 540.00 mGycm. Automated Exposure Control for Dose Reduction was Utilized. TECHNIQUE: CT scan of the thorax is performed without IV contrast. FINDINGS: Intravenous contrast could compromise sensitivity. LUNGS: The lungs are grossly clear, there is no concerning parenchymal mass or nodule identified. T here is no pleural effusion or pneumothorax seen. The tracheobronchial tree is patent. MEDIASTINUM: Lack of IV contrast is noted to limit evaluation for mediastinal and especially hilar ad enopathy. There are no definitive greater than 1 cm hilar or mediastinal lymph nodes. No cardiomega ly or pericardial effusion is seen. The root of aorta shows metallic density, coronary artery calcifications are present, patient is post median sternotomy. Ascending aorta measures 3.9 cm, proximal descending aorta measures approximately 4.8 cm. At the level of the aortic hiatus the aorta measures 4.4 cm. Suspect there may be a circumao rtic left renal vein. Nodular contour of the liver suggests cirrhosis. Dependent high attenuation wit hin the gallbladder is compatible with cholelithiasis. Atheromatous changes are present within the ao rta. Within the subxiphoid location there is an abdominal wall hernia containing fat as on prior exam . There is a spinal curvature. IMPRESSION: Thoracic aortic aneurysm shows a similar diameter prior exam. Postop changes. Abdominal w all hernia. Correlate for cirrhosis. Cholelithiasis. Coronary artery disease and additional findings above.
--- NOTE | 2019-09-19 11:04 | P.ARTDOP ---
Arterial Doppler LOWER EXTREMITY ARTERIAL DOPPLER: Unilateral study. DATE OF SERVICE: 09/18/2019 Reason for study: Right leg pain. Doppler waveforms: Multiphasic throughout on the right. Irregular rhythm suggesting PVCs or A. fib Pulse volume recording: []. Pressure gradients: None. Ankle-brachial indices: 0.98 on the right and greater than 1 on the left. Toe brachial indices: [] on the right, [] on the left Impression: Normal study.
== END | disposition home or self-care (01) ==
LOC: RADCTMAIN 12:00
DX: I71.2 Thoracic aortic aneurysm, without rupture (principal); I25.10 Atherosclerotic heart disease of native coronary artery without angina pectoris; K80.20 Calculus of gallbladder without cholecystitis without obstruction; Z98.890 Other specified postprocedural states; M79.661 Pain in right lower leg; Z88.8 Allergy status to other drugs, medicaments and biological substances
CPT/HCPCS: 71250; 93922

== ENCOUNTER 2020-02-19 12:03 | Emergency (ER) | payer MEDICARE, BC, OTHER ==
[2020-02-19 12:09] VITALS: TEMP 98.6
[2020-02-19] MEDS ORDERED: SODIUM CHLORIDE 0.9% 500 ML 500 ML IV STA (12:24)
[2020-02-19 12:41] LABS: Basophils # (A) 0.1 k/uL (0-0.2); Basophils % (A) 1 %; Eosinophils # (A) 0.2 k/uL (0-0.7); Eosinophils % (A) 2 %; HCT 44.5 % (39.0-53.0); HGB 14.8 gm/dL (13.0-17.5); Lymphocytes # (A) 1.1 k/uL (1.0-4.8); Lymphocytes % (A) 11 %; MCH 32.5 pg (25.0-35.0); MCHC 33.2 g/dL (31.0-37.0); MCV 97.9 fL (80.0-100.0); Mean Platelet Volume 8.4; Monocytes # (A) 0.7 k/uL (0-1.0); Monocytes % (A) 7 %; Neutrophils % (A) 78 %; Platelet Count 144 k/uL (150-450); RBC 4.54 m/uL (4.30-5.90); WBC 10.2 k/uL (3.8-10.6)
--- NOTE | 2020-02-19 12:45 | ED ---
Chest Pain HPI - General Chief Complaint: Chest Pain Stated Complaint: chest pain Time Seen by Provider: 02/19/20 12:08 Source: patient, EMS, RN notes reviewed Mode of arrival: EMS Limitations: no limitations - History of Present Illness Initial Comments: This a 69-year-old male presents emergency Department chief complaint chest pain. Patient states that pain last few days. Patient does have a history of coronary disease, aortic aneurysm with surgery. Patient states pain has not resolved which prompted him to come to the emergency department.. Patient has had a history of A. fib. Patient is on Coumadin takes aspirin daily. Patient does admit that is also has a history of COPD. Patient is on 3 L of oxygen chronically. Patient denies any increased shortness of breath he does have a history of CHF and has mild leg swelling. Patient complains of back pain, abdominal pain - Related Data Home Medications Medication Instructions Recorded Confirmed Diltiazem HCl [Diltiazem HCl 24Hr 240 mg PO DAILY 08/23/14 02/19/20 ER ([place])] Metoprolol Tartrate [Lopressor] 100 mg PO BID 08/23/14 02/19/20 Budesonide-Formot 160-4.5 Mcg 2 puff INHALATION RT-BID 10/07/15 02/19/20 [Symbicort 160-4.5 Mcg Inhaler] Tiotropium 18 Mcg/Puff [Spiriva] 2 cap INHALATION RT-DAILY 03/19/16 02/19/20 Pregabalin [Lyrica] 50 mg PO BID 08/11/16 02/19/20 Spironolactone [Aldactone] 25 mg PO DAILY 01/09/17 02/19/20 Furosemide [Lasix] 40 mg PO AC-BID 09/23/17 02/19/20 Pantoprazole [Protonix] 40 mg PO HS 09/23/17 02/19/20 Vit C/E/Zn/Coppr/Lutein/Zeaxan 1 cap PO DAILY 09/23/17 02/19/20 [Preservision Areds 2 Softgel] Atorvastatin Calcium [Lipitor] 40 mg PO HS 04/04/18 02/19/20 Levothyroxine Sodium [Synthroid] 50 mcg PO AC-BRKFST 04/04/18 02/19/20 Warfarin Sodium 6 mg PO SUTUTHSA 04/04/18 02/19/20 Warfarin [Coumadin] 3 mg PO MOWEFR 08/03/18 02/19/20 Aspirin EC [Ecotrin Low Dose] 81 mg PO DAILY 09/12/19 02/19/20 Ferrous Gluconate 324 mg PO DAILY 09/12/19 02/19/20 Potassium Chloride [Klor-Con 20] 20 meq PO BID 09/12/19 02/19/20 Ipratropium/Albuter 20-100Mcg 1 puff INHALATION RT-QID 02/19/20 02/19/20 [Combivent Respimat 20-100Mcg Inhaler] Thiamine [Vitamin B-1] 100 mg PO DAILY 02/19/20 02/19/20 Previous Rx's Medication Instructions Recorded Folic Acid 1 mg PO DAILY #1 tablet 09/10/14 Allergies Allergy/AdvReac Type Severity Reaction Status Date / Time No Known Allergies Allergy Verified 02/19/20 12:54 Review of Systems ROS Statement: Those systems with pertinent positive or pertinent negative responses have been documented in the HPI. ROS Other: All systems not noted in ROS Statement are negative. EKG Findings - EKG Comments: EKG Findings:: EKG performed at 12:05 A. fib with slow ventricular response rate of 58 QRS 94 QT/QTC 414/406 - EKG Results: EKG: interpreted by NANCY Past Medical History Past Medical History: Atrial Fibrillation, Atrial Flutter, Coronary Artery Disease (CAD), Cancer, Chest Pain / Angina, Heart Failure, COPD, Deep Vein Thrombosis (DVT), Eye Disorder, GERD/Reflux, GI Bleed, Hearing Disorder / Deafness, Hyperlipidemia, Hypertension, Liver Disease, Memory Impairment, Pneumonia, Vascular Disorder Additional Past Medical History / Comment(s): Stable dissection of the descending aorta, chronic atrial fibrillation and is anticoagulated with warfarin, aortic valve replacement with a bioprosthetic valve, pulmonary hypertension, chronic hypoxic respiratory failure with home O2 at , previous pneumonia 2008 and 2014, prostate cancer with prostatectomy, DVT R lower leg x2, macular degeneration L eye, left arm fracture, chronic tinnitus in both ears, gastritis, lower GIm bleed, UTI, liver cirrhosis related to history of alcoholism, hepatitis C at age 14yrs. Last Myocardial Infarction Date:: unsure History of Any Multi-Drug Resistant Organisms: None Reported Date of last positivie culture/infection: None MDRO Source:: None Past Surgical History: Cardiac Valve Replacement, Heart Catheterization, Heart Catheterization With Stent, Hernia Repair, Orthopedic Surgery, Prostate Surgery Additional Past Surgical History / Comment(s): Aortic valve replacement, prostatectomy, right inguinal hernia repair 2, bilateral knee arthroscopy, colonoscopy/polypectomy, EGD, right leg varicose vein stripping, removal of a blood clot from the right lower extremity, cervical surgery d/t injury in [place] and removal of shrapnel's from the right shoulder Past Anesthesia/Blood Transfusion Reactions: No Reported Reaction Date of Last Stent Placement:: 2016 Past Psychological History: No Psychological Hx Reported Additional Psychological History / Comment(s): grandson lives with the patient. History of chronic tobacco use active and alcohol use active, old drug use Past Alcohol Use History: Daily Additional Past Alcohol Use History / Comment(s): Pt started smoking in 1966 and is a 1.5 ppd smoker. He states he drinks daily and last drank on 09/16/18. Past Drug Use History: None Reported - Past Family History Mother Family Medical History: Diabetes Mellitus Additional Family Medical History / Comment(s): Mother at age 74 from diabetic complications. Father Family Medical History: Congestive Heart Failure (CHF) Additional Family Medical History / Comment(s): Father at age 91 yrs. General Exam Limitations: no limitations General appearance: alert, in no apparent distress Head exam: Present: atraumatic, normocephalic, normal inspection Eye exam: Present: normal appearance, PERRL, EOMI. Absent: scleral icterus, conjunctival injection, periorbital swelling ENT exam: Present: normal exam, normal oropharynx, mucous membranes moist Neck exam: Present: normal inspection. Absent: tenderness, meningismus, lymphadenopathy Respiratory exam: Present: wheezes, decreased breath sounds. Absent: normal lung sounds bilaterally, respiratory distress, rales, rhonchi, stridor Cardiovascular Exam: Present: irregular rhythm, normal heart sounds. Absent: regular rate, normal rhythm, systolic murmur, diastolic murmur, rubs, gallop, clicks GI/Abdominal exam: Present: soft, normal bowel sounds. Absent: distended, te nderness, guarding, rebound, rigid Neurological exam: Present: alert, oriented X3 Skin exam: Present: warm, dry, intact, normal color. Absent: rash Course Vital Signs 02/19/20 02/19/20 02/19/20 12:04 12:11 12:18 Temperature 98.6 F Pulse Rate 69 72 Pulse Rate [ 63 Pulse Oximetery ] Respiratory 20 20 Rate Blood Pressure 95/57 78/60 O2 Sat by Pulse 93 L 96 Oximetry 02/19/20 02/19/20 02/19/20 13:17 13:53 14:18 Temperature Pulse Rate 58 L 52 L 55 L Pulse Rate [ Pulse Oximetery ] Respiratory 18 18 Rate Blood Pressure 141/79 114/48 109/67 O2 Sat by Pulse 96 95 94 L Oximetry 02/19/20 02/19/20 02/19/20 14:34 14:40 14:42 Temperature Pulse Rate 52 L Pulse Rate [ Pulse Oximetery ] Respiratory Rate Blood Pressure 129/67 96/68 123/51 O2 Sat by Pulse Oximetry 02/19/20 02/19/20 02/19/20 14:49 14:55 14:57 Temperature Pulse Rate 50 L Pulse Rate [ Pulse Oximetery ] Respiratory Rate Blood Pressure 134/52 121/58 131/58 O2 Sat by Pulse Oximetry 02/19/20 02/19/20 02/19/20 15:02 15:06 15:11 Temperature Pulse Rate Pulse Rate [ Pulse Oximetery ] Respiratory Rate Blood Pressure 111/42 104/42 95/59 O2 Sat by Pulse Oximetry 02/19/20 02/19/20 02/19/20 15:14 15:20 15:22 Temperature Pulse Rate 46 L 42 L Pulse Rate [ Pulse Oximetery ] Respiratory Rate Blood Pressure 110/65 124/53 96/45 O2 Sat by Pulse Oximetry 02/19/20 02/19/20 15:25 15:38 Temperature Pulse Rate 44 L Pulse Rate [ Pulse Oximetery ] Respiratory 16 Rate Blood Pressure 117/81 103/45 O2 Sat by Pulse 86 L Oximetry - Reevaluation(s) Reevaluation #1: 02/19/20 14:14 I did receive a phone call from radiologist Dr. Castillo who says it appears to be aortic rupture or dissection around graft. Patient will be transferred to [facility] is a slight patient had prior surgery. Reevaluation #2: 02/19/20 15:02 Called back to [facility] is wanting updated for transfer bed stating that it would be hopefully within one hour. Reevaluation #3: 02/19/20 15:45 Bob Gambino contacted for up-to-date, 3rd time still pending bed at this point. Chest Pain MDM - MDM 69-year-old male presented for [address] was obtained was concerning for aortic dissection around prior repair. [facility]. I did discuss the case with Dr. Ramsey. Patient is on Coumadin and which she was given kcentra, vitamin K. Blood pressure is maintained at this time. Cardene drip was started Patient we transferred priority to [facility]. Critical Care Time Critical Care Time: Yes Total Critical Care Time: 70 Critical Care Time: Total 70 minutes of critical time was initially use evaluate patient, reviewed past medical history, ordered lab CT x-ray. Patient found to have aortic dissection at the room. Patient's labs were reviewed EKG reviewed. Case discussed with radiologist, Bob Ramsey patient was started on Cardene drip to manage blood pressure with a systolic between 100-110. Patient's case discussed with Bob Gambino and was transferred priority Disposition Clinical Impression: Aortic dissection Disposition: OTHER INSTITUTION NOT DEFINED Condition: Serious Referrals: [facility],Clinic [Primary Care Provider] - 1-2 days Time of Disposition: 14:28 - Out of Hospital Transfer - Req. Specs Out of Hospital Transfer - Requested Specifics: [facility]
--- NOTE | 2020-02-19 12:49 | XR ---
EXAMINATION TYPE: XR chest 2V DATE OF EXAM: 02/19/2020 COMPARISON: 09/12/2019 HISTORY: 69-year-old male chest pain TECHNIQUE: PA and lateral views FINDINGS: Median sternotomy wires are present. Post CABG changes. Heart borderline enlarged. Similar tortuosity /ectasia of the thoracic aorta. Mild diffuse interstitial prominence. No flip consolidation or pleur al effusion. Surgical clips projecting at the lateral right upper lobe. IMPRESSION: Borderline heart size and chronic appearing changes. Possible underlying COPD. No definite acute proc ess.
[2020-02-19 13:11] LABS: ALT 17 U/L (4-49); African American GFR (CKD) >90 (>60 ml/min/1.73 sqM); Albumin 4.1 g/dL (3.5-5.0); Anion Gap 5 mmol/L; Blood Urea Nitrogen 10 mg/dL (9-20); Calcium 8.5 mg/dL (8.4-10.2); Carbon Dioxide 31 mmol/L (22-30); Chloride 98 mmol/L (98-107); Glucose 109 mg/dL (74-99); Non-African American GFR(CKD) >90 (>60 ml/min/1.73 sqM); Sodium 134 mmol/L (137-145); Total Bilirubin 1.2 mg/dL (0.2-1.3); Total Protein 7.6 g/dL (6.3-8.2)
[2020-02-19 13:14] LABS: INR 2.6 (<1.2); Prothrombin Time 25.5 sec (9.0-12.0)
[2020-02-19 13:16] LABS: AST 38 U/L (17-59); Alkaline Phosphatase 190 U/L (38-126); Potassium 5.2 mmol/L (3.5-5.1)
[2020-02-19] MEDS ORDERED: PHYTONADIONE 10 MG in SODIUM CHLORIDE 0.9% 50 ML IVPB STA (14:06)
[2020-02-19] MEDS ORDERED: Kcentra PER PHARMACY 1 EACH MISC MISCELLANE PRN (14:07)
--- NOTE | 2020-02-19 14:13 | CT ---
EXAMINATION TYPE: CT angio chest DATE OF EXAM: 02/19/2020 COMPARISON: CT chest 09/18/2019 HISTORY: chest pain, difficulty breathing, history of aneurysm CT DLP: 1102.5 mGycm Automated exposure control for dose reduction was used. CONTRAST: CTA scan of the thorax is performed without and with IV Contrast, patient injected with 100 mL of Iso santana 370, pulmonary embolism protocol. MIP images are created and reviewed. 3D reconstructed images are created on an independent workstation and reviewed. FINDINGS: LUNGS: The lungs are showing some groundglass opacity lung bases, there may be some dependent atelect atic change, hypoventilatory changes. There is no pleural effusion or pneumothorax seen. The trach eobronchial tree is patent, there is bronchial wall thickening. AORTA: Suspect prior ascending aortic repair. There is dissection in the ascending aorta, contrast e nhancement suggesting an endoleak or possibly recurrent dissection, portion in the ascending aorta is thrombosed. Aortic root measurement is approximately 4.9 cm. Proximal descending aorta is 4.6 cm. Li mited dissection present within the descending aorta is likely stable compared to the noncontrast exa m. At the level of the aortic hiatus the aorta measures 4 cm. There is a limited dissection near the origin of the celiac axis anterior and right lateral in position to the small limited dissection. . MEDIASTINUM: There is satisfactory enhancement of the pulmonary artery and its branches, there is no CT evidence for pulmonary embolism. There are no greater than 1 cm hilar or mediastinal lymph nodes. No pericardial effusion is seen. The heart is enlarged. Patient is post median sternotomy. Metalli c density noted at the level of the mitral valve. Calcification noted at the aortic root. There are c oronary artery calcifications. Pulmonary artery is dilated at 2.3 cm, consider pulmonary artery hyper tension. There is some dilation present of the proximal right subclavian artery, some postop changes are noted over the anterior aspect of the subclavian artery, possible prior anastomosis OTHER: In the region of subxiphoid patient anteriorly there is a hernia noted carrying fat and vesse l. Reflux of contrast into the inferior vena cava represent right heart failure. Dependent hyperdensi ty within the gallbladder compatible with stones. IMPRESSION: RECURRENT DISSECTION, POSSIBLE ENDOLEAK PRESENT AT THE ROOT OF AORTA, THERE IS LIKELY PRIOR SURGICAL REPAIR AT THIS LEVEL. AORTIC ANEURYSM. CORONARY ARTERY DISEASE AND POSTOP CHANGES. ADDITIONAL FINDING S ABOVE. Report relayed to Rangel Hood at the time of interpretation at exam by telephone.
[2020-02-19] MEDS ORDERED: HUMAN PROTHROMBIN COMPLX IV ONE (14:15)
[2020-02-19] MEDS ORDERED: niCARdipine 20 MG in SODIUM CHLORIDE 0.9% 192 ML IV STA (14:27)
[2020-02-19] MEDS ORDERED: HUMAN PROTHROMBIN COMPLX 500 UNIT/16 ML VIAL IV ONE (14:32)
[2020-02-19] MEDS ORDERED: LORazepam 2 MG/ML INJ IV STA (15:09)
[2020-02-19 15:40] VITALS: RESP 16
[2020-02-19 16:06] VITALS: BP 92/64
[2020-02-19 16:29] VITALS: PULSE 45
== END 2020-02-19 16:08 | disposition other institution (70) ==
LOC: EC 12:03
DX: I71.03 Dissection of thoracoabdominal aorta (principal); M54.9 Dorsalgia, unspecified; I48.20 Chronic atrial fibrillation, unspecified; I11.0 Hypertensive heart disease with heart failure; I25.10 Atherosclerotic heart disease of native coronary artery without angina pectoris; I25.2 Old myocardial infarction; I27.20 Pulmonary hypertension, unspecified; B19.20 Unspecified viral hepatitis C without hepatic coma; E78.5 Hyperlipidemia, unspecified; H35.30 Unspecified macular degeneration; J44.9 Chronic obstructive pulmonary disease, unspecified; J96.11 Chronic respiratory failure with hypoxia; K21.9 Gastro-esophageal reflux disease without esophagitis; K74.60 Unspecified cirrhosis of liver; Z79.51 Long term (current) use of inhaled steroids; Z79.82 Long term (current) use of aspirin; Z90.89 Acquired absence of other organs; Z79.01 Long term (current) use of anticoagulants; Z85.46 Personal history of malignant neoplasm of prostate; Z86.718 Personal history of other venous thrombosis and embolism; Z99.81 Dependence on supplemental oxygen; Z82.49 Family history of ischemic heart disease and other diseases of the circulatory system; Z87.19 Personal history of other diseases of the digestive system; Z95.3 Presence of xenogenic heart valve; Z79.899 Other long term (current) drug therapy; Z79.890 Hormone replacement therapy; Z87.891 Personal history of nicotine dependence
CPT/HCPCS: 36415; 93005; 83880; 80053; 83735; 84484; 85025; 85610; 85730; 71046; 71275; 99291; 96365; 96367; 96375 ×2; 96361; J2060; J3430; C9132; Q9967

== ENCOUNTER 2020-08-04 12:28 | Inpatient (IN) | payer OTHER, MEDICARE, BC ==
--- NOTE | 2020-08-04 13:22 | ED ---
General Adult HPI - General Chief complaint: Shortness of Breath Stated complaint: chest congestion Time Seen by Provider: 08/04/20 12:40 Source: patient, family, RN notes reviewed, old records reviewed Mode of arrival: wheelchair Limitations: physical limitation - History of Present Illness Initial comments: This is a 70-year-old male who presents emergency department with past medical history significant for aortic dissection. Patient states it was repaired Years ago and then started to leak this past year approximately 6 months ago he had a second open heart surgery to repair. Patient spent about 5 months in rehab had a PEG tube which is still in place and had a trach which is been since removed and was sent home about 4 days ago. According to the son patient had a fever for 101 2 days ago and does have a little bit of a cough but he has not noticed the patient much more short of breath and he has been since she's been home. He does think that the patient is weaker now that he's been home over the last 4 days when he first came back. Patient himself has no complaints but is a poor historian. Son states that he has not complained about any pain he has not had any vomiting or diarrhea that he knows of. An aside from the one day of fever he has not had a fever since. - Related Data Home Medications Medication Instructions Recorded Confirmed Atorvastatin Calcium [Lipitor] 40 mg PEG/G-TUBE HS 04/04/18 08/04/20 Apixaban [Eliquis] 5 mg PEG/G-TUBE BID 08/04/20 08/04/20 Levothyroxine Sodium [Euthyrox] 50 mcg PEG/G-TUBE DAILY 08/04/20 08/04/20 Metoprolol Tartrate 25 mg PEG/G-TUBE TID 08/04/20 08/04/20 QUEtiapine [SEROquel] 25 mg PEG/G-TUBE BID 08/04/20 08/04/20 Torsemide [Demadex] 20 mg PEG/G-TUBE DAILY 08/04/20 08/04/20 levETIRAcetam [levETIRAcetam Oral 500 mg PEG/G-TUBE BID 08/04/20 08/04/20 Soln] Allergies Allergy/AdvReac Type Severity Reaction Status Date / Time No Known Allergies Allergy Verified 08/04/20 14:49 Review of Systems ROS Statement: Those systems with pertinent positive or pertinent negative responses have been documented in the HPI. ROS Other: All systems not noted in ROS Statement are negative. Past Medical History Past Medical History: Atrial Fibrillation, Atrial Flutter, Coronary Artery Disease (CAD), Cancer, Chest Pain / Angina, Heart Failure, COPD, CVA/TIA, Deep Vein Thrombosis (DVT), Eye Disorder, GERD/Reflux, GI Bleed, Hearing Disorder / Deafness, Hyperlipidemia, Hypertension, Liver Disease, Memory Impairment, Pneumonia, Vascular Disorder Additional Past Medical History / Comment(s): Stable dissection of the descending aorta, chronic atrial fibrillation and is anticoagulated with warfarin, aortic valve replacement with a bioprosthetic valve, pulmonary hypertension, chronic hypoxic respiratory failure with home O2 at , previous pneumonia 2008 and 2014, prostate cancer with prostatectomy, DVT R lower leg x2, macular degeneration L eye, left arm fracture, chronic tinnitus in both ears, gastritis, lower GIm bleed, UTI, liver cirrhosis related to history of alcoholism, hepatitis C at age 14yrs., feeding tube, alcoholism Last Myocardial Infarction Date:: unsure History of Any Multi-Drug Resistant Organisms: None Reported Date of last positivie culture/infection: None MDRO Source:: None Past Surgical History: Cardiac Valve Replacement, Coronary Bypass/CABG, Heart Catheterization, Heart Catheterization With Stent, Hernia Repair, Orthopedic Surgery, Prostate Surgery Additional Past Surgical History / Comment(s): Aortic valve replacement, prostatectomy, right inguinal hernia repair 2, bilateral knee arthroscopy, colonoscopy/polypectomy, EGD, right leg varicose vein stripping, removal of a blood clot from the right lower extremity, cervical surgery d/t injury in [place] and removal of shrapnel's from the right shoulder, feeding tube Past Anesthesia/Blood Transfusion Reactions: No Reported Reaction Date of Last Stent Placement:: 2016 Past Psychological History: No Psychological Hx Reported Smoking Status: Former smoker Past Alcohol Use History: None Reported Past Drug Use History: None Reported - Past Family History Mother Family Medical History: Diabetes Mellitus Additional Family Medical History / Comment(s): Mother at age 74 from diabetic complications. Father Family Medical History: Congestive Heart Failure (CHF) Additional Family Medical History / Comment(s): Father at age 91 yrs. General Exam - General Exam Comments Initial Comments: GENERAL: Patient is well-developed and well-nourished. Patient is nontoxic and well- hydrated and is in no acute distress. ENT: Neck is soft and supple. No significant lymphadenopathy is noted. Oropharynx is clear. Moist mucous membranes. Neck has full range of motion without eliciting any pain. EYES: The sclera were anicteric and conjunctiva were pink and moist. Extraocular movements were intact and pupils were equal round and reactive to light. Eyelids were unremarkable. PULMONARY: Unlabored respirations. Good breath sounds bilaterally. No audible rales rhon chi or wheezing was noted. CARDIOVASCULAR: There is a regular rate and rhythm without any murmurs gallops or rubs. ABDOMEN: Soft and nontender with normal bowel sounds. SKIN: Skin is clear with no lesions or rashes and otherwise unremarkable. NEUROLOGIC: Patient is alert and oriented 2. Cranial nerves II through XII are grossly intact. Motor and sensory are also intact. Normal speech, volume and content. Symmetrical smile. MUSCULOSKELETAL: Normal extremities with adequate strength and full range of motion. LYMPHATICS: No significant lymphadenopathy is noted PSYCHIATRIC: Unable to assess secondary to patient's mental status. Limitations: physical limitation Course Vital Signs 08/04/20 08/04/20 08/04/20 12:42 13:31 14:29 Temperature 98.7 F 98.9 F Pulse Rate 79 84 Respiratory 20 24 20 Rate Blood Pressure 111/60 131/72 O2 Sat by Pulse 94 L 100 Oximetry Medical Decision Making - Medical Decision Making Chest x-ray shows atypical pneumonia. Patient's positive for cold. I started the patient on Decadron I continued the Floor. I Spoke with Dr. Desir He Agreed to Admit the Patient to the Patient I Consult Pulmonary. - Lab Data Result diagrams: 08/04/20 13:30 08/04/20 13:30 Lab Results 08/04/20 08/04/20 08/04/20 Range/Units 13:30 13:30 13:30 WBC 4.8 (3.8-10.6) k/uL RBC 3.91 L (4.30-5.90) m/uL Hgb 11.4 L (13.0-17.5) gm/dL Hct 35.7 L (39.0-53.0) % MCV 91.4 (80.0-100.0) fL MCH 29.2 (25.0-35.0) pg MCHC 31.9 (31.0-37.0) g/dL RDW 15.8 H (11.5-15.5) % Plt Count 127 L (150-450) k/uL MPV 8.3 Neutrophils % 66 % Lymphocytes % 18 % Monocytes % 9 % Eosinophils % 2 % Basophils % 1 % Neutrophils # 3.2 (1.3-7.7) k/uL Lymphocytes # 0.9 L (1.0-4.8) k/uL Monocytes # 0.5 (0-1.0) k/uL Eosinophils # 0.1 (0-0.7) k/uL Basophils # 0.0 (0-0.2) k/uL PT 11.0 (9.0-12.0) sec INR 1.0 (<1.2) APTT 32.6 H (22.0-30.0) sec Sodium (137-145) mmol/L Potassium (3.5-5.1) mmol/L Chloride (98-107) mmol/L Carbon Dioxide (22-30) mmol/L Anion Gap mmol/L BUN (9-20) mg/dL Creatinine (0.66-1.25) mg/dL Est GFR (CKD-EPI)AfAm (>60 ml/min/1.73 sqM) Est GFR (CKD-EPI)NonAf (>60 ml/min/1.73 sqM) Glucose (74-99) mg/dL Plasma Lactic Acid Silvino (0.7-2.0) mmol/L Calcium (8.4-10.2) mg/dL Total Bilirubin (0.2-1.3) mg/dL AST (17-59) U/L ALT (4-49) U/L Alkaline Phosphatase (38-126) U/L NT-Pro-B Natriuret Pep pg/mL Total Protein (6.3-8.2) g/dL Albumin (3.5-5.0) g/dL Urine Color Yellow Urine Appearance Clear (Clear) Urine pH 5.5 (5.0-8.0) Ur Specific [place] 1.009 (1.001-1.035) Urine Protein Negative (Negative) Urine Glucose (UA) Negative (Negative) Urine Ketones Negative (Negative) Urine Blood Negative (Negative) Urine Nitrite Negative (Negative) Urine Bilirubin Negative (Negative) Urine Urobilinogen <2.0 (<2.0) mg/dL Ur Leukocyte Esterase Negative (Negative) Coronavirus (PCR) (Not Detectd) 08/04/20 08/04/20 08/04/20 Range/Units 13:30 13:30 13:30 WBC (3.8-10.6) k/uL RBC (4.30-5.90) m/uL Hgb (13.0-17.5) gm/dL Hct (39.0-53.0) % MCV (80.0-100.0) fL MCH (25.0-35.0) pg MCHC (31.0-37.0) g/dL RDW (11.5-15.5) % Plt Count (150-450) k/uL MPV Neutrophils % % Lymphocytes % % Monocytes % % Eosinophils % % Basophils % % Neutrophils # (1.3-7.7) k/uL Lymphocytes # (1.0-4.8) k/uL Monocytes # (0-1.0) k/uL Eosinophils # (0-0.7) k/uL Basophils # (0-0.2) k/uL PT (9.0-12.0) sec INR (<1.2) APTT (22.0-30.0) sec Sodium 135 L (137-145) mmol/L Potassium 4.6 (3.5-5.1) mmol/L Chloride 95 L (98-107) mmol/L Carbon Dioxide 33 H (22-30) mmol/L Anion Gap 7 mmol/L BUN 21 H (9-20) mg/dL Creatinine 0.80 (0.66-1.25) mg/dL Est GFR (CKD-EPI)AfAm >90 (>60 ml/min/1.73 sqM) Est GFR (CKD-EPI)NonAf 90 (>60 ml/min/1.73 sqM) Glucose 88 (74-99) mg/dL Plasma Lactic Acid Silvino 2.2 H* (0.7-2.0) mmol/L Calcium 8.4 (8.4-10.2) mg/dL Total Bilirubin 0.7 (0.2-1.3) mg/dL AST 70 H (17-59) U/L ALT 35 (4-49) U/L Alkaline Phosphatase 165 H (38-126) U/L NT-Pro-B Natriuret Pep 726 pg/mL Total Protein 9.0 H (6.3-8.2) g/dL Albumin 4.0 (3.5-5.0) g/dL Urine Color Urine Appearance (Clear) Urine pH (5.0-8.0) Ur Specific [place] (1.001-1.035) Urine Protein (Negative) Urine Glucose (UA) (Negative) Urine Ketones (Negative) Urine Blood (Negative) Urine Nitrite (Negative) Urine Bilirubin (Negative) Urine Urobilinogen (<2.0) mg/dL Ur Leukocyte Esterase (Negative) Coronavirus (PCR) (Not Detectd) 08/04/20 Range/Units 13:30 WBC (3.8-10.6) k/uL RBC (4.30-5.90) m/uL Hgb (13.0-17.5) gm/dL Hct (39.0-53.0) % MCV (80.0-100.0) fL MCH (25.0-35.0) pg MCHC (31.0-37.0) g/dL RDW (11.5-15.5) % Plt Count (150-450) k/uL MPV Neutrophils % % Lymphocytes % % Monocytes % % Eosinophils % % Basophils % % Neutrophils # (1.3-7.7) k/uL Lymphocytes # (1.0-4.8) k/uL Monocytes # (0-1.0) k/uL Eosinophils # (0-0.7) k/uL Basophils # (0-0.2) k/uL PT (9.0-12.0) sec INR (<1.2) APTT (22.0-30.0) sec Sodium (137-145) mmol/L Potassium (3.5-5.1) mmol/L Chloride (98-107) mmol/L Carbon Dioxide (22-30) mmol/L Anion Gap mmol/L BUN (9-20) mg/dL Creatinine (0.66-1.25) mg/dL Est GFR (CKD-EPI)AfAm (>60 ml/min/1.73 sqM) Est GFR (CKD-EPI)NonAf (>60 ml/min/1.73 sqM) Glucose (74-99) mg/dL Plasma Lactic Acid Silvino (0.7-2.0) mmol/L Calcium (8.4-10.2) mg/dL Total Bilirubin (0.2-1.3) mg/dL AST (17-59) U/L ALT (4-49) U/L Alkaline Phosphatase (38-126) U/L NT-Pro-B Natriuret Pep pg/mL Total Protein (6.3-8.2) g/dL Albumin (3.5-5.0) g/dL Urine Color Urine Appearance (Clear) Urine pH (5.0-8.0) Ur Specific [place] (1.001-1.035) Urine Protein (Negative) Urine Glucose (UA) (Negative) Urine Ketones (Negative) Urine Blood (Negative) Urine Nitrite (Negative) Urine Bilirubin (Negative) Urine Urobilinogen (<2.0) mg/dL Ur Leukocyte Esterase (Negative) Coronavirus (PCR) Detected A (Not Detectd) Critical Care Time Critical Care Time: Yes Total Critical Care Time: 35 Disposition Clinical Impression: Pneumonia due to COVID-19 virus Disposition: ADMITTED IP TO THIS HOSP Referrals: [facility],Clinic [Primary Care Provider] - 1-2 days Time of Disposition: 15:24
--- NOTE | 2020-08-04 14:07 | XR ---
EXAMINATION TYPE: XR chest 2V DATE OF EXAM: 08/04/2020 COMPARISON: 02/19/2020 HISTORY: 70-year-old male with fever TECHNIQUE: AP and lateral views FINDINGS: Median sternotomy wires and prosthetic aortic valve. Surgical clips project at the peripheral right u pper thorax. Mild diffuse interstitial prominence. No consolidation or pleural effusion. Heart border line enlarged. IMPRESSION: 1. Borderline heart size. 2. Increased interstitial density. Correlate to exclude atypical pneumonia.
[2020-08-04 14:17] LABS: Chloride 95 mmol/L (98-107)
[2020-08-04 14:19] LABS: Partial Thromboplastin Time 32.6 sec (22.0-30.0)
[2020-08-04 14:20] LABS: ALT 35 U/L (4-49); AST 70 U/L (17-59); African American GFR (CKD) >90 (>60 ml/min/1.73 sqM); Alkaline Phosphatase 165 U/L (38-126); Anion Gap 7 mmol/L; Blood Urea Nitrogen 21 mg/dL (9-20); Calcium 8.4 mg/dL (8.4-10.2); Carbon Dioxide 33 mmol/L (22-30); Glucose 88 mg/dL (74-99); Non-African American GFR(CKD) 90 (>60 ml/min/1.73 sqM); Sodium 135 mmol/L (137-145); Total Bilirubin 0.7 mg/dL (0.2-1.3)
[2020-08-04 14:21] LABS: Appearance,Urine Clear (Clear); Bilirubin,Urine Negative (Negative); Blood,Urine Negative (Negative); Color,Urine Yellow; Glucose,Urine (UA) Negative (Negative); Ketones,Urine Negative (Negative); Leukocyte Esterase,Urine Negative (Negative); Nitrite,Urine Negative (Negative); PH, Urine 5.5 (5.0-8.0); Protein,Urine Negative (Negative); Specific Gravity,Urine 1.009 (1.001-1.035); Urobilinogen,Urine <2.0 mg/dL (<2.0)
[2020-08-04 14:24] LABS: Basophils % (A) 1 %; Eosinophils # (A) 0.1 k/uL (0-0.7); Eosinophils % (A) 2 %; HCT 35.7 % (39.0-53.0); HGB 11.4 gm/dL (13.0-17.5); Lymphocytes # (A) 0.9 k/uL (1.0-4.8); Lymphocytes % (A) 18 %; MCH 29.2 pg (25.0-35.0); MCHC 31.9 g/dL (31.0-37.0); MCV 91.4 fL (80.0-100.0); Mean Platelet Volume 8.3; Monocytes # (A) 0.5 k/uL (0-1.0); Monocytes % (A) 9 %; Neutrophils # (A) 3.2 k/uL (1.3-7.7); Neutrophils % (A) 66 %; Platelet Count 127 k/uL (150-450); RBC 3.91 m/uL (4.30-5.90); RDW 15.8 % (11.5-15.5); WBC 4.8 k/uL (3.8-10.6)
[2020-08-04 14:35] LABS: Potassium 4.6 mmol/L (3.5-5.1)
[2020-08-04] MEDS ORDERED: dexAMETHasone 2 MG TAB PO STA (15:23)
[2020-08-04] MEDS ORDERED: SODIUM CHLORIDE 0.9% 1,000 ML IV ONE (15:24)
[2020-08-04] MEDS ORDERED: ALPRAZolam 0.25 MG TAB PO PRN (19:45)
[2020-08-04] MEDS ORDERED: HYDROcodone/APAP 5-325MG 1 EACH TAB PO PRN (19:45)
--- NOTE | 2020-08-04 21:41 | HP ---
HISTORY AND PHYSICAL DATE OF SERVICE: 08/04/2020. CHIEF COMPLAINTS: Shortness of breath and chest congestion. HISTORY OF PRESENT ILLNESS: This 70-year-old gentleman with a past medical history of multiple medical problems including history of atrial fibrillation, history of CAD, COPD, CVA, DVT, GERD, GI bleed, being followed by Dr. Rangel Colin in the outpatient setting is not feeling well over the past several days. The patient is complaining of the patient apparently had some aortic dissection and had some leaking and had some open heart surgery to repair it. He spent about 5 months in rehab, had a PEG tube also according to the family and the patient also had a tracheostomy which was removed. The patient was home for the last 4 days, but the patient had a fever up to 101.2 degrees and as well as increased shortness of breath with cough. Patient came to [facility]. Bilateral pneumonia was suspected. Covid 19 was a consideration. Patient admitted to the hospital for further evaluation and treatment. There is no history of fever, rigors or chills. No history of headache, loss of consciousness or seizures at this time. PAST MEDICAL HISTORY: History of recent aortic dissection and surgery, history of atrial fibrillation, atrial flutter, history of CAD, history of CHF, COPD, CVA, TIA, DVT, GERD, GI bleed, hypertension, hyperlipidemia. MEDICATIONS: Medications prior to admission include home medications are: Lipitor. Demadex, Euthyrox, Eliquis, Seroquel, metoprolol, Keppra. ALLERGIES: None. FAMILY HISTORY: History of diabetes in the family. SOCIAL HISTORY: History of smoking. Occasional alcohol intake. REVIEW OF SYSTEMS: ENT: No diminished vision. No diminished hearing. CARDIOVASCULAR: No angina. RESPIRATORY: As mentioned earlier. GI: As mentioned earlier. : No dysuria. NERVOUS SYSTEM: No numbness. Generalized weakness. ALLERGIES/IMMUNOLOGY: No asthma or hayfever. MUSCULOSKELETAL as mentioned earlier. HEMATOLOGY: No history of anemia. ENDOCRINE: No history of diabetes or hypothyroidism. CONSTITUTIONAL: As mentioned earlier. DERMATOLOGY: Negative. RHEUMATOLOGY: Negative. PSYCHIATRIC: As mentioned. PHYSICAL EXAMINATION: Alert and oriented times three. Pulse 79, blood pressure 119/60, respiration 18, temperature 98.1, pulse ox 97% on 4 L. HEENT is conjunctivae normal. NECK: No JVD. CARDIOVASCULAR: S1, S2 muffled. RESPIRATORY: Breath sounds diminished in the bases. A few scattered rhonchi and crackles. ABDOMEN: Soft, obese, nontender. LEGS: No edema. No swelling. Nervous system: Higher functions as mentioned. Moves all four limbs. No focal motor or sensory deficits. LYMPHATICS: No lymph nodes palpable in the neck, axillae or groin. SKIN: No ulcer, no rash and no bleeding. JOINTS: No active deforming arthropathy. LABS: WBC 4.8, hemoglobin 7.4, platelets 127. Other labs are noted. ASSESSMENT: 1. Acute COVID-19 infection and bilateral pneumonia possibly gram-negative interstitial pneumonia with acute hypoxic respiratory failure with possible sepsis present on admission. 2. Elevated lactic acid. 3. Hyponatremia. 4. Increased AST. 5. Anemia, normocytic. 6. Thrombocytopenia. 7. History of recent aortic dissection repair. 8. History of recent PEG tube and tracheostomy. 9. History atrial fibrillation/flutter. 10.History of coronary artery disease. 11.History of chronic obstructive pulmonary disease. 12.Cerebrovascular accident/transient ischemic attack. 13.History of deep vein thrombosis. 14.Gastroesophageal reflux disease. 15.History of gastrointestinal bleed. 16.Hypertension. 17.Hyperlipidemia. 18.History of chronic liver disease. 19.Memory impairment. 20.History of aortic replacement with bioprosthetic valve. 21.History of coronary artery disease, coronary artery bypass grafting/stent. 22.History of prostatectomy. 23.Remote history of nicotine dependence. RECOMMENDATIONS AND DISCUSSION: This 70-year-old gentleman who presented with multiple complex medical issues, we will monitor the patient closely, continue the current management and we will initiate dexamethasone, zinc and other conservative line of management. I would also recommend D-dimer. If the D-dimer is positive, I recommended CT angio with contrast. Otherwise, if the DVT is negative, I would recommend a CT chest without any contrast. Otherwise, the patient might be a candidate for Remdesivir at this time. I would also recommend infectious Disease and Pulmonary consultation. Resume the home medications. Overall prognosis extremely guarded because of multiple complex medical issues. Further recommendations to follow. A copy of dictation forwarded to Dr. Colin who is the primary physician. Home medication also will be initiated. MMODL / IJN: [id number] /
[2020-08-04] MEDS: levETIRAcetam ORAL SOLN 500 MG/5 ML CUP PEG/G-TUBE SCH (22:21)
[2020-08-04] MEDS: QUEtiapine 25 MG TAB PEG/G-TUBE SCH (22:21)
[2020-08-04] MEDS: ATORVASTATIN 40 MG TAB PEG/G-TUBE SCH (22:21)
[2020-08-04] MEDS: METOPROLOL TARTRATE 25 MG TAB PEG/G-TUBE SCH (22:21)
[2020-08-04] MEDS: APIXABAN 5 MG TAB PEG/G-TUBE SCH (22:21)
[2020-08-04] MEDS: ZINC SULFATE 220 MG CAP PO SCH (22:22)
--- NOTE | 2020-08-05 02:34 | CT ---
EXAM: CT Angiography Chest With Intravenous Contrast CLINICAL HISTORY: ITS.REASON CT Reason: Elevated Ddimer TECHNIQUE: Axial computed tomographic angiography images of the chest with intravenous contrast. CTDI is 15.2 mGy and DLP is 426.90 mGy-cm. This CT exam was performed using one or more of the following dose reduction techniques: automated exposure control, adjustment of the mA and/or kV according to patient size, and/or use of iterative reconstruction technique. MIP reconstructed images were created and reviewed. COMPARISON: CT 02/09/17. FINDINGS: Limitations: Significantly limited study due to motion artifact and suboptimal contrast opacification. Pulmonary arteries: No large central PE. Peripheral vessels not well evaluated and small PE cannot be excluded. Aorta: Postsurgical changes in the aorta. Persistent aneurysmal dilatation of the descending thoracic aorta. Stranding/fluid adjacent to the ascending aorta. Correlate with surgical history. Limited evaluation for dissection due to timing of contrast. Atherosclerotic disease. Lungs: Patchy infiltrates or atelectasis, more prominent on the right. Pleural space: No significant effusion. No pneumothorax. Heart: Cardiomegaly. Bones/joints: Sternotomy wires with associated soft tissue stranding/fluid in the chest wall. Soft tissues: See above. Lymph nodes: Small mediastinal lymph nodes. Spleen: Splenomegaly. IMPRESSION: 1. Limited study, as above. No large central PE. 2. Patchy infiltrates or atelectasis. 3. Sternotomy wires with associated soft tissue stranding/fluid in the chest wall and anterior mediastinum. Correlate with history of recent surgery versus inflammatory/infectious or traumatic etiology.
[2020-08-05 04:41] LABS: Ferritin 51.4 ng/mL (22.0-322.0)
[2020-08-05 06:36] LABS: Basophils % (A) 1 %; Eosinophils % (A) 1 %; HCT 34.1 % (39.0-53.0); HGB 11.4 gm/dL (13.0-17.5); Lymphocytes # (A) 0.5 k/uL (1.0-4.8); Lymphocytes % (A) 24 %; MCH 30.6 pg (25.0-35.0); MCHC 33.4 g/dL (31.0-37.0); MCV 91.7 fL (80.0-100.0); Monocytes # (A) 0.2 k/uL (0-1.0); Monocytes % (A) 8 %; Neutrophils # (A) 1.2 k/uL (1.3-7.7); Neutrophils % (A) 64 %; Platelet Count 114 k/uL (150-450); RBC 3.72 m/uL (4.30-5.90); RDW 15.5 % (11.5-15.5); WBC 1.9 k/uL (3.8-10.6)
[2020-08-05] MEDS: TORSEMIDE 20 MG TAB PEG/G-TUBE SCH (09:23)
[2020-08-05] MEDS: QUEtiapine 25 MG TAB PEG/G-TUBE SCH ×2 (09:23→22:37)
[2020-08-05] MEDS: METOPROLOL TARTRATE 25 MG TAB PEG/G-TUBE SCH ×3 (09:23→22:37)
[2020-08-05] MEDS: ZINC SULFATE 220 MG CAP PO SCH (09:23)
[2020-08-05] MEDS: LEVOTHYROXINE 50 MCG TAB PEG/G-TUBE SCH (09:23)
[2020-08-05] MEDS: CHOLECALCIFEROL 1,000 UNIT TAB PO SCH (09:24)
[2020-08-05] MEDS: levETIRAcetam ORAL SOLN 500 MG/5 ML CUP PEG/G-TUBE SCH ×2 (09:24→22:37)
[2020-08-05] MEDS: ASCORBIC ACID 500 MG TAB PO SCH (09:24)
[2020-08-05] MEDS: dexAMETHasone 2 MG TAB PO SCH (09:24)
[2020-08-05] MEDS: PANTOPRAZOLE 40 MG TABLET PO SCH (09:24)
[2020-08-05] MEDS: APIXABAN 5 MG TAB PEG/G-TUBE SCH ×2 (09:24→22:37)
[2020-08-05 11:10] LABS: Ferritin 61.2 ng/mL (22.0-322.0)
--- NOTE | 2020-08-05 12:54 | CDI ---
Documentation Clarification Form Date: 08/05/2020 12:24:54 PM From: Lizzy Duran RN CCDS Admit Date: 08/04/2020 03:25:00 PM Patient Name: Sylvain Duran Visit Number: [id number] Discharge Date: ATTENTION: The Clinical Documentation Specialists (CDI) and [facility] Coding Staff appreciate your assistance in clarifying documentation. Please respond to the clarification below the line at the bottom and electronically sign. The CDI & [facility] Coding staff will review the response and follow-up if needed. Please note: Queries are made part of the Legal Health Record. If you have any questions, please contact the author of this message via ITS. Dr. Fred Desir CHF is documented in the H&P under medical history 08/04/20. History/Risk Factors: 70-year old male presents to the ED with having a fever at home up to 101.2; shortness of breath and cough. The patient has been home four days after a lengthy stay in rehab after open heart surgery. Admitted with possible sepsis and COVID 19 Clinical Indicators: Medical History: Atrial fib; CAD; CVA; Peg tube; Tracheostomy which was removed and GI bleed VS/Pulse OX 08/04/20: B/P 111/60; HR 79; T 98.7 F Oral; RR 20; Spo2 94% ra BNP 08/04/20: 726 Echocardiogram Results 09/18/18: Left ventricular size is normal. Moderate concentric left ventricular hypertrophy. Overall left ventricular systolic function is normal with, an EF between 60-65%. Aortic valve is trileaflet and is mildly thickened. Mild aortic valve sclerosis. Mild mitral regurgitation is present. Mild tricuspid regurgitation is present Chest X Ray08/04/20: Increased interstitial density. Treatment: 08/05 Demadex 20mg daily; Lopressor 25mg TID; In your professional opinion, can you please clarify the acuity and type of CHF if known? Chronic Diastolic Heart Failure CHF ruled out Unable to Determine Other, please specify (Last Revision: October 2017) Unable to Determine MTDD
[2020-08-05 13:02] LABS: African American GFR (CKD) 103.4 (60.0-200.0); Albumin 3.7 g/dL (3.80-4.90); Albumin/Globulin Ratio 0.97 (1.60-3.17); Anion Gap 9.7 mmol/L (4.00-12.00); BUN/Creat Ratio 27.5 Ratio (12.00-20.00); C Reactive Protein 0.9 mg/dL (0.0-0.8); Calcium 8.5 mg/dL (8.7-10.3); Carbon Dioxide 26.3 mmol/L (21.6-31.8); Globulin 3.8 g/dL (1.6-3.3); Non-African American GFR(CKD) 89.2 (60.0-200.0); Potassium 3.9 mmol/L (3.5-5.5); Total Bilirubin 0.3 mg/dL (0.3-1.2); Total Protein 7.5 g/dL (6.2-8.2)
[2020-08-05] MEDS: THIAMINE 100 MG TAB PEG/G-TUBE SCH (13:30)
[2020-08-05] MEDS: MULTIVITAMINS, THERA 1 EACH TAB PEG/G-TUBE SCH (13:30)
[2020-08-05] MEDS: FOLIC ACID 1 MG TAB PO SCH (13:30)
--- NOTE | 2020-08-05 13:37 | P.CNPUL ---
History of Present Illness Consult date: 08/05/20 Requesting physician: Shukri Desir Reason for consult: dyspnea, hypoxemia, abnormal CXR/CT Chief complaint: Dyspnea, hypoxemia History of present illness: 70-year-old white male patient with extensive medical history including chronic A. 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 Patient lives with his son and his grandson, and was brought in for evaluation of a fever of 1012 days ago, increasing weakness, and some cough and some increased shortness of breath. Patient wears 2 L of oxygen on a regular basis, he is currently on 3 L. Patient himself is a poor historian, he has garbled speech which is at baseline after his stroke several months ago, however she denies feeling ill, denied being short of breath, she denied having any nausea vomiting or diarrhea. His ER record states that aside from the one day of fever he has not had a fever since. He is on Eliquis for anticoagulation. He denies being exposed to COVID 19. Chest x-ray showed increased interstitial density, his laboratory analysis showed a white blood cell count of 4.8, hemoglobin of 11.4, platelet count of 127, lymphocyte count of 0.9, d-dimer was 2.89, sodium is 135, potassium 4.6, chloride is 95, CO2 33, BUN is 21 creatinine 0.8, plasma lactic acid is 2.2 which has improved down to 1.6 with IV hydration, proBNP was 700 is 26, urinalysis was within normal limits, coronavirus PCR was positive. Patient appears to be quite comfortable, sitting up in bed, his pulse ox is 96% on 3 L, his been afebrile, hemodynamically has been stable. Does have a congested cough, but no significant phlegm production, his gas and crackles at bilateral bases, he denies feeling ill, reports no symptoms today. He was started on oral Decadron, vitamin C, vitamin E, IV hydration, zinc supplements, and he is on his Eliquis Review of Systems All systems: negative Constitutional: Denies chills, Denies fever Eyes: denies blurred vision, denies pain Ears, nose, mouth and throat: Denies headache, Denies sore throat Cardiovascular: Denies chest pain, Denies shortness of breath Respiratory: Reports cough, Reports dyspnea Gastrointestinal: Denies abdominal pain, Denies diarrhea, Denies nausea, Denies vomiting Musculoskeletal: Denies myalgias Integumentary: Denies pruritus, Denies rash Neurological: Reports weakness, Denies numbness Psychiatric: Denies anxiety, Denies depression Endocrine: Denies fatigue, Denies weight change Past Medical History Past Medical History: Atrial Fibrillation, Atrial Flutter, Coronary Artery Disease (CAD), Cancer, Chest Pain / Angina, Heart Failure, COPD, CVA/TIA, Deep Vein Thrombosis (DVT), Eye Disorder, GERD/Reflux, GI Bleed, Hearing Disorder / Deafness, Hyperlipidemia, Hypertension, Liver Disease, Memory Impairment, Pneumonia, Vascular Disorder Additional Past Medical History / Comment(s): Stable dissection of the descending aorta, chronic atrial fibrillation and is anticoagulated with warfarin, aortic valve replacement with a bioprosthetic valve, pulmonary hypertension, chronic hypoxic respiratory failure with home O2 at , previous pneumonia 2008 and 2014, prostate cancer with prostatectomy, DVT R lower leg x2, macular degeneration L eye, left arm fracture, chronic tinnitus in both ears, gastritis, lower GIm bleed, UTI, liver cirrhosis related to history of alcoholism, hepatitis C at age 14yrs., feeding tube, alcoholism Last Myocardial Infarction Date:: unsure History of Any Multi-Drug Resistant Organisms: None Reported Date of last positivie culture/infection: None MDRO Source:: None Past Surgical History: Cardiac Valve Replacement, Coronary Bypass/CABG, Heart Catheterization, Heart Catheterization With Stent, Hernia Repair, Orthopedic Surgery, Prostate Surgery Additional Past Surgical History / Comment(s): Aortic valve replacement, prostatectomy, right inguinal hernia repair 2, bilateral knee arthroscopy, colo noscopy/polypectomy, EGD, right leg varicose vein stripping, removal of a blood clot from the right lower extremity, cervical surgery d/t injury in [place] and removal of shrapnel's from the right shoulder, feeding tube Past Anesthesia/Blood Transfusion Reactions: No Reported Reaction Date of Last Stent Placement:: 2016 Past Psychological History: No Psychological Hx Reported Additional Psychological History / Comment(s): grandson lives with the patient. History of chronic tobacco use active and alcohol use active, old drug use Smoking Status: Former smoker Past Alcohol Use History: None Reported Additional Past Alcohol Use History / Comment(s): Pt started smoking in 1966 and is a 1.5 ppd smoker. He states he drinks daily and last drank on 09/16/18. Past Drug Use History: None Reported - Past Family History Mother Family Medical History: Diabetes Mellitus Additional Family Medical History / Comment(s): Mother at age 74 from diabetic complications. Father Family Medical History: Congestive Heart Failure (CHF) Additional Family Medical History / Comment(s): Father at age 91 yrs. Medications and Allergies Home Medications Medication Instructions Recorded Confirmed Type Atorvastatin Calcium [Lipitor] 40 mg PEG/G-TUBE HS 04/04/18 08/04/20 History Apixaban [Eliquis] 5 mg PEG/G-TUBE BID 08/04/20 08/04/20 History Levothyroxine Sodium [Euthyrox] 50 mcg PEG/G-TUBE DAILY 08/04/20 08/04/20 History Metoprolol Tartrate 25 mg PEG/G-TUBE TID 08/04/20 08/04/20 History QUEtiapine [SEROquel] 25 mg PEG/G-TUBE BID 08/04/20 08/04/20 History Torsemide [Demadex] 20 mg PEG/G-TUBE DAILY 08/04/20 08/04/20 History levETIRAcetam [levETIRAcetam Oral 500 mg PEG/G-TUBE BID 08/04/20 08/04/20 H istory Soln] Allergies Allergy/AdvReac Type Severity Reaction Status Date / Time No Known Allergies Allergy Verified 08/04/20 14:49 Physical Exam Vitals: Vital Signs Temp Pulse Pulse Resp BP BP Pulse Ox 08/05/20 08:00 97.4 F L 55 L 18 119/59 96 08/05/20 02:00 97.5 F L 71 18 111/62 96 08/04/20 20:00 98.1 F 72 18 105/60 98 08/04/20 18:01 98.1 F 79 18 119/69 97 08/04/20 16:05 99.3 F 80 20 96/69 97 08/04/20 14:29 98.9 F 84 20 131/72 100 08/04/20 13:31 24 Intake and Output 08/04/20 08/05/20 08/05/20 22:59 06:59 14:59 Intake Total 120 Output Total 200 Balance -80 Intake: Oral 120 Output: Urine 200 Other: Voiding Method Toilet Toilet Urinal Urinal Diaper Diaper # Voids 4 # Bowel Movements 1 Weight 83.915 kg GENERAL EXAM: Alert, very pleasant, 70-year-old white male, on 2 L of oxygen with pulse ox of 96%, patient is a poor historian, related to his garbled speech, which is apparently a new baseline since his stroke several months ago comfortable in no apparent distress. HEAD: Normocephalic/atraumatic. EYES: Normal reaction of pupils, equal size. Conjunctiva pink, sclera white. NOSE: Clear with pink turbinates. THROAT: No erythema or exudates. NECK: No masses, no JVD, no thyroid enlargement, no adenopathy. CHEST: No chest wall deformity. Symmetrical expansion. LUNGS: Equal air entry with basilar crackles, but no wheeze, rhonchi or dullness. CVS: Regular rate and rhythm, normal S1 and S2, no gallops, no murmurs, no rubs ABDOMEN: Soft, nontender. No hepatosplenomegaly, normal bowel sounds, no guarding or rigidity. EXTREMITIES: No clubbing, no edema, no cyanosis, 2+ pulses and upper and lower extremities. MUSCULOSKELETAL: Muscle strength and tone normal. SPINE: No scoliosis or deformity SKIN: No rashes CENTRAL NERVOUS SYSTEM: Alert and oriented -3. No focal deficits, tone is normal in all 4 extremities. PSYCHIATRIC: Alert and oriented -3. Appropriate affect. Intact judgment and insight. Results - Laboratory Findings CBC and BMP: 08/05/20 06:23 08/05/20 06:23 PT/INR, D-dimer PT 11.0 sec (9.0-12.0) 08/04/20 13:30 INR 1.0 (<1.2) 08/04/20 13:30 D-Dimer 2.89 mg/L FEU (<0.60) H 08/04/20 19:59 Abnormal lab findings: Abnormal Labs 08/04/20 08/04/20 08/04/20 13:30 13:30 13:30 WBC RBC 3.91 L Hgb 11.4 L Hct 35.7 L RDW 15.8 H Plt Count 127 L Neutrophils # Lymphocytes # 0.9 L APTT 32.6 H D-Dimer Sodium 135 L Chloride 95 L Carbon Dioxide 33 H BUN 21 H BUN/Creatinine Ratio Glucose Plasma Lactic Acid Silvino Calcium AST 70 H Alkaline Phosphatase 165 H C-Reactive Protein Total Protein 9.0 H Albumin Globulin Albumin/Globulin Ratio Coronavirus (PCR) 08/04/20 08/04/20 08/04/20 13:30 13:30 19:59 WBC RBC Hgb Hct RDW Plt Count Neutrophils # Lymphocytes # APTT D-Dimer 2.89 H Sodium Chloride Carbon Dioxide BUN BUN/Creatinine Ratio Glucose Plasma Lactic Acid Silvino 2.2 H* Calcium AST Alkaline Phosphatase C-Reactive Protein Total Protein Albumin Globulin Albumin/Globulin Ratio Coronavirus (PCR) Detected A 08/05/20 08/05/20 06:23 06:23 WBC 1.9 L RBC 3.72 L Hgb 11.4 L Hct 34.1 L RDW Plt Count 114 L Neutrophils # 1.2 L Lymphocytes # 0.5 L APTT D-Dimer Sodium Chloride Carbon Dioxide BUN BUN/Creatinine Ratio 27.50 H Glucose 127 H Plasma Lactic Acid Silvino Calcium 8.5 L AST 43 H Alkaline Phosphatase 143 H C-Reactive Protein 0.9 H Total Protein Albumin 3.70 L Globulin 3.8 H Albumin/Globulin Ratio 0.97 L Coronavirus (PCR) - Diagnostic Findings Chest x-ray: report reviewed, image reviewed CT scan - chest: report reviewed, image reviewed Assessment and Plan Plan: Assessment: #1. Acute on chronic hypoxic respiratory failure related to acute COVID 19 related pneumonitis, patient normally wears 2 L of oxygen at home on a regular basis. His FiO2 requirements are not significantly higher from his baseline, his symptoms were cough, mild shortness of breath, and weakness. Patient is a poor historian, most of the history was obtained from the nursing staff in the chart, and there is a history of a one day fever 3 days ago, which has not recurred #2. Increased d-dimer, of 2.89, patient is on Eliquis on a regular basis for history of chronic A. fib and history of DVT #3. History of CVA with residual dysarthria, and dysphagia with previous PEG tube placement however patient is now eating by mouth and tolerating oral diet well #4. Mild lactic acidosis improved with IV hydration #5. History of COPD with chronic hypoxic respiratory failure usually wears 2 L of oxygen at home #6. History of CAD with previous bypass grafting and stenting #7. History of valvular disease, status post aortic valve replacement with bioprosthetic valve reportedly in January 2020 #8. Previous history of tracheostomy and PEG tube placement, tracheostomy was removed however the PEG tube remains in place, currently being used for nutritional #9. History of a dissecting descending aorta with surgical repair #10. History of pulmonary hypertension, likely secondary to COPD #11. History of hypertension #12. History of hyperlipidemia #13. History of prostate cancer with prostatectomy #14. Previous history of GI bleeding #15. Previous history of chronic alcoholism with liver cirrhosis #16. Former smoker Plan: Patient seems to be pretty close to his baseline, he denies feeling short of breath or having significant cough, denies any chest pain, no fever or chills, he has not had recurrence of fever since the one day when his fever was 101, de nies any specific complaints, will continue with steroids, continue with vitamin C, vitamin D, zinc, continue Eliquis for oral anticoagulation, his symptoms have been mild, and had improved since that initial onset. Weaning FiO2. Monitor the patient for 24 hours, if continues to be stable improving may consider discharge home in the next 24 hours I performed a history & physical examination of the patient and discussed their management with my nurse practitioner, Brooke Henao. I reviewed the nurse practitioner's note and agree with the documented findings and plan of care. Lung sounds are positive for mild bibasilar crackles.. The findings and the impression was discussed with the patient. I attest to the documentation by the nurse practitioner. Time with Patient: Greater than 30
--- NOTE | 2020-08-05 14:10 | P.CRDCN ---
History of Present Illness Consult date: 08/05/20 History of present illness: CHIEF COMPLAINT: A. fib HISTORY OF PRESENT ILLNESS: This is a 70-year-old male with a past medical history significant for COPD, home oxygen, pulmonary hypertension, hyperlipidemia, atrial fibrillation, hypertension, coronary artery disease with previous CABG and stenting, and aortic valve replacement with a bioprosthetic valve. We have been asked to see the patient in consultation for afib. Patient is currently admitted to the hospital secondary to Covid 19. Blood pressure 119/59. Patient is on 3 L nasal cannula with oxygen saturations greater than 92%. Heart rate ranging from 55-70. He is afebrile. DIAGNOSTICS: Chest xray borderline heart size. Increased interstitial density. Correlate to exclude atypical pneumonia Laboratory data: WBC 1.9. Hemoglobin 11.4. Platelet count 114. Sodium 137. Potassium 3.9. BUN 22. Creatinine 0.8. Current home cardiac medications include Lipitor 40 mg daily, Demadex 20 mg daily, Eliquis 5 mg twice a day, metoprolol 25 mg 3 times a day REVIEW OF SYSTEMS: Thorough review of systems not completed secondary to limited evaluation/examination and due to Covid19 PHYSICAL EXAM: Thorough physical exam not completed secondary to limited evaluation/examination and due to Covid19 ASSESSMENT: Acute Covid 19 Chronic persistent atrial fibrillation, on anticoagulation with Eliquis COPD with home oxygen Pulmonary hypertension Hypertension Hyperlipidemia Coronary artery disease with previous CABG and stent placement History of aortic valve replacement with bioprosthetic valve PLAN: Continue current cardiac medications Obtain 2D echo to assess cardiac structure and function Ongoing telemetry monitoring Further recommendations pending patient course Nurse practitioner note has been reviewed by physician. Signing provider agrees with the documented findings, assessment, and plan of care. Past Medical History Past Medical History: Atrial Fibrillation, Atrial Flutter, Coronary Artery Disease (CAD), Cancer, Chest Pain / Angina, Heart Failure, COPD, CVA/TIA, Deep Vein Thrombosis (DVT), Eye Disorder, GERD/Reflux, GI Bleed, Hearing Disorder / Deafness, Hyperlipidemia, Hypertension, Liver Disease, Memory Impairment, Pneumonia, Vascular Disorder Additional Past Medical History / Comment(s): Stable dissection of the descending aorta, chronic atrial fibrillation and is anticoagulated with warfarin, aortic valve replacement with a bioprosthetic valve, pulmonary hypertension, chronic hypoxic respiratory failure with home O2 at , previous pneumonia 2008 and 2014, prostate cancer with prostatectomy, DVT R lower leg x2, macular degeneration L eye, left arm fracture, chronic tinnitus in both ears, gastritis, lower GIm bleed, UTI, liver cirrhosis related to history of alcoholism, hepatitis C at age 14yrs., feeding tube, alcoholism Last Myocardial Infarction Date:: unsure History of Any Multi-Drug Resistant Organisms: None Reported Date of last positivie culture/infection: None MDRO Source:: None Past Surgical History: Cardiac Valve Replacement, Coronary Bypass/CABG, Heart Catheterization, Heart Catheterization With Stent, Hernia Repair, Orthopedic Surgery, Prostate Surgery Additional Past Surgical History / Comment(s): Aortic valve replacement, prostatectomy, right inguinal hernia repair 2, bilateral knee arthroscopy, colonoscopy/polypectomy, EGD, right leg varicose vein stripping, removal of a blood clot from the right lower extremity, cervical surgery d/t [place] and removal of shrapnel's from the right shoulder, feeding tube Past Anesthesia/Blood Transfusion Reactions: No Reported Reaction Date of Last Stent Placement:: 2016 Past Psychological History: No Psychological Hx Reported Additional Psychological History / Comment(s): grandson lives with the patient. History of chronic tobacco use active and alcohol use active, old drug use Smoking Status: Former smoker Past Alcohol Use History: None Reported Additional Past Alcohol Use History / Comment(s): Pt started smoking in 1966 and is a 1.5 ppd smoker. He states he drinks daily and last drank on 09/16/18. Past Drug Use History: None Reported - Past Family History Mother Family Medical History: Diabetes Mellitus Additional Family Medical History / Comment(s): Mother at age 74 from diabetic complications. Father Family Medical History: Congestive Heart Failure (CHF) Additional Family Medical History / Comment(s): Father at age 91 yrs. Medications and Allergies Home Medications Medication Instructions Recorded Confirmed Type Atorvastatin Calcium [Lipitor] 40 mg PEG/G-TUBE HS 04/04/18 08/04/20 History Apixaban [Eliquis] 5 mg PEG/G-TUBE BID 08/04/20 08/04/20 History Levothyroxine Sodium [Euthyrox] 50 mcg PEG/G-TUBE DAILY 08/04/20 08/04/20 History Metoprolol Tartrate 25 mg PEG/G-TUBE TID 08/04/20 08/04/20 History QUEtiapine [SEROquel] 25 mg PEG/G-TUBE BID 08/04/20 08/04/20 History Torsemide [Demadex] 20 mg PEG/G-TUBE DAILY 08/04/20 08/04/20 History levETIRAcetam [levETIRAcetam Oral 500 mg PEG/G-TUBE BID 08/04/20 08/04/20 History Soln] Allergies Allergy/AdvReac Type Severity Reaction Status Date / Time No Known Allergies Allergy Verified 08/04/20 14:49 Physical Exam Vitals: Vital Signs Temp Pulse Pulse Resp BP BP Pulse Ox 08/05/20 08:00 97.4 F L 55 L 18 119/59 96 08/05/20 02:00 97.5 F L 71 18 111/62 96 08/04/20 20:00 98.1 F 72 18 105/60 98 08/04/20 18:01 98.1 F 79 18 119/69 97 08/04/20 16:05 99.3 F 80 20 96/69 97 08/04/20 14:29 98.9 F 84 20 131/72 100 Intake and Output 08/04/20 08/05/20 08/05/20 22:59 06:59 14:59 Intake Total 120 Output Total 200 Balance -80 Intake: Oral 120 Output: Urine 200 Other: Voiding Method Toilet Toilet Urinal Urinal Diaper Diaper # Voids 4 # Bowel Movements 1 Weight 83.915 kg Results 08/05/20 06:23 08/05/20 06:23 Cardiac Enzymes 08/04/20 08/04/20 08/05/20 Range/Units 13:30 19:59 06:23 AST 70 H 43 H (17-59) U/L Lactate Dehydrogenase 429 202 (313-618) U/L Coagulation 08/04/20 Range/Units 13:30 PT 11.0 (9.0-12.0) sec APTT 32.6 H (22.0-30.0) sec CBC 08/04/20 08/05/20 Range/Units 13:30 06:23 WBC 4.8 1.9 L (3.8-10.6) k/uL RBC 3.91 L 3.72 L (4.30-5.90) m/uL Hgb 11.4 L 11.4 L (13.0-17.5) gm/dL Hct 35.7 L 34.1 L (39.0-53.0) % Plt Count 127 L 114 L (150-450) k/uL Comprehensive Metabolic Panel 08/04/20 08/05/20 Range/Units 13:30 06:23 Sodium 135 L 137 (137-145) mmol/L Potassium 4.6 3.9 (3.5-5.1) mmol/L Chloride 95 L 101 (98-107) mmol/L Carbon Dioxide 33 H 26.3 (22-30) mmol/L BUN 21 H 22.0 (9-20) mg/dL Creatinine 0.80 0.8 (0.66-1.25) mg/dL Glucose 88 127 H (74-99) mg/dL Calcium 8.4 8.5 L (8.4-10.2) mg/dL AST 70 H 43 H (17-59) U/L ALT 35 31 (4-49) U/L Alkaline Phosphatase 165 H 143 H (38-126) U/L Total Protein 9.0 H 7.5 (6.3-8.2) g/dL Albumin 4.0 3.70 L (3.5-5.0) g/dL Current Medications Generic Name Dose Route Start Last Admin Trade Name Freq PRN Reason Stop Dose Admin Hydrocodone Bitart/Acetaminophen 1 each 08/04/20 19:45 Hydrocodone/Apap 5-325mg 1 Each Tab PO Q6HR PRN Pain Alprazolam 0.25 mg 08/04/20 19:45 Alprazolam 0.25 Mg Tab PO TID PRN Anxiety Apixaban 5 mg 08/04/20 21:00 08/05/20 09:24 Apixaban 5 Mg Tab PEG/G-TUBE 5 mg BID JAYLA Administration Ascorbic Acid 500 mg 08/05/20 09:00 08/05/20 09:24 Ascorbic Acid 500 Mg Tab PO 500 mg DAILY JAYLA Administration Atorvastatin Calcium 40 mg 08/04/20 21:00 08/04/20 22:21 Atorvastatin 40 Mg Tab PEG/G-TUBE 40 mg HS JAYLA Administration Cholecalciferol 1,000 unit 08/05/20 09:00 08/05/20 09:24 Cholecalciferol 1,000 Unit Tab PO 1,000 unit DAILY JAYLA Administration Dexamethasone 6 mg 08/05/20 09:00 08/05/20 09:24 Dexamethasone 2 Mg Tab PO 6 mg DAILY JAYLA Administration Folic Acid 1 mg 08/05/20 12:00 08/05/20 13:30 Folic Acid 1 Mg Tab PO 1 mg DAILY@1200 JAYLA Administration Levetiracetam 500 mg 08/04/20 21:00 08/05/20 09:24 Levetiracetam Oral Soln 500 Mg/5 Ml Cup PEG/G-TUBE 500 mg BID JAYLA Administration Levothyroxine Sodium 50 mcg 08/05/20 09:00 08/05/20 09:23 Levothyroxine 50 Mcg Tab PEG/G-TUBE 50 mcg DAILY JAYLA Administration Metoprolol Tartrate 25 mg 08/04/20 22:00 08/05/20 13:30 Metoprolol Tartrate 25 Mg Tab PEG/G-TUBE 25 mg TID JAYLA Administration Multivitamins 1 each 08/05/20 12:00 08/05/20 13:30 Multivitamins, Thera 1 Each Tab PEG/G-TUBE 1 each DAILY@1200 JAYLA Administration Pantoprazole Sodium 40 mg 08/05/20 07:30 08/05/20 09:24 Pantoprazole 40 Mg Tablet PO 40 mg [id number] JAYLA Administration Quetiapine Fumarate 25 mg 08/04/20 21:00 08/05/20 09:23 Quetiapine 25 Mg Tab PEG/G-TUBE 25 mg BID JAYLA Administration Thiamine HCl 100 mg 08/05/20 12:00 08/05/20 13:30 Thiamine 100 Mg Tab PEG/G-TUBE 100 mg DAILY@1200 JAYLA Administration Torsemide 20 mg 08/05/20 09:00 08/05/20 09:23 Torsemide 20 Mg Tab PEG/G-TUBE 20 mg DAILY JAYLA Administration Zinc Sulfate 220 mg 08/04/20 20:00 08/05/20 09:23 Zinc Sulfate 220 Mg Cap PO 220 mg DAILY JAYLA Administration Intake and Output 08/04/20 08/05/20 08/05/20 22:59 06:59 14:59 Intake Total 120 Output Total 200 Balance -80 Intake: Oral 120 Output: Urine 200 Other: Voiding Method Toilet Toilet Urinal Urinal Diaper Diaper # Voids 4 # Bowel Movements 1 Weight 83.915 kg 08/05/20 06:23 08/05/20 06:23
--- NOTE | 2020-08-05 15:01 | P.CONS ---
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 Unclear when the symptoms developed but patient presented with increasing weakness and fever along with shortness of breath. At time of evaluation patient denies any shortness of breath or chest pain. He states he has a little cough is nonproductive. No nausea or vomiting. No abdominal pain. Patient is normally on home O2 at 2 L nasal cannula currently at 3 L with pulse ox of 96%, he's been afebrile. Initial white count of 4.8 now at 1.9. Hemoglobin 11.4. D-dimer 2.89. Creatinine 0.8. Lactic acid initially 2.2 with repeat 1.6. Alkaline phosphatase 165. Urinalysis negative. Covid 19 detected REVIEW OF SYSTEMS Constitutional: Reported fever, no chills, no night sweats. No weight change. Reported weakness, fatigue or lethargy. EENT: No headache. No nasal drainage or congestion. No epistaxis. No sore throat. Lungs: Reported shortness of breath, reported cough, reported sputum production. No wheezing. Cardiovascular: No chest pain, no lower extremity edema. No lightheadedness or dizziness. No syncopal episodes. Abdominal: No abdominal pain. No nausea, vomiting. No diarrhea. No constipation. No loss of appetite. Genitourinary: No dysuria, increased frequency, urgency. No urinary retention. Musculoskeletal: No myalgias. No muscle weakness. Integumentary: No wounds, no lesions. No rash or pruritus. Neurologic: No aphasia. No facial droop. No change in mentation. Endocrine: No abnormal blood sugars. PHYSICAL EXAMINATION Gen: This is a 70-year-old male. He is resting in bed appears to be comfortable and in no acute distress. No respiratory distress noted. VS: Afebrile, heart rate 55, blood pressure 119/59, pulse ox 96% on 3 L nasal cannula. HEENT: Head is atraumatic, normocephalic. Pupils equal, round. Sclerae is anicteric. NECK: Supple. No JVD. No lymphadenopathy. No thyromegaly. LUNGS: Clear to auscultation. No wheezes or rhonchi. No intercostal retractions. HEART: Regular rate and rhythm. No murmur. ABDOMEN: Soft. Bowel sounds are present. No masses. No tenderness. EXTREMITIES: No pedal edema. No calf tenderness. NEUROLOGICAL: Patient is awake, alert and oriented x3. ASSESSMENT Covid 19 pneumonitis Lactic acidosis Leukopenia PLAN The above dictated assessment and findings were discussed with Dr. Espinal. The impression and plan of care have been directed as dictated. Jazzmine Celeste nurse practitioner acting as scribe for Dr. Espinal. Past Medical History Past Medical History: Atrial Fibrillation, Atrial Flutter, Coronary Artery Disease (CAD), Cancer, Chest Pain / Angina, Heart Failure, COPD, CVA/TIA, Deep Vein Thrombosis (DVT), Eye Disorder, GERD/Reflux, GI Bleed, Hearing Disorder / Deafness, Hyperlipidemia, Hypertension, Liver Disease, Memory Impairment, Pneumonia, Vascular Disorder Additional Past Medical History / Comment(s): Stable dissection of the descending aorta, chronic atrial fibrillation and is anticoagulated with warfarin, aortic valve replacement with a bioprosthetic valve, pulmonary hypertension, chronic hypoxic respiratory failure with home O2 at , previous pneumonia 2008 and 2014, prostate cancer with prostatectomy, DVT R lower leg x2, macular degeneration L eye, left arm fracture, chronic tinnitus in both ears, gastritis, lower GIm bleed, UTI, liver cirrhosis related to history of alcoholism, hepatitis C at age 14yrs., feeding tube, alcoholism Last Myocardial Infarction Date:: unsure History of Any Multi-Drug Resistant Organisms: None Reported Year Discovered:: None MDRO Source:: None Past Surgical History: Cardiac Valve Replacement, Coronary Bypass/CABG, Heart Catheterization, Heart Catheterization With Stent, Hernia Repair, Orthopedic Surgery, Prostate Surgery Additional Past Surgical History / Comment(s): Aortic valve replacement, prostatectomy, right inguinal hernia repair 2, bilateral knee arthroscopy, colonoscopy/polypectomy, EGD, right leg varicose vein stripping, removal of a blood clot from the right lower extremity, cervical surgery d/t injury in [place] and removal of shrapnel's from the right shoulder, feeding tube Past Anesthesia/Blood Transfusion Reactions: No Reported Reaction Date of Last Stent Placement:: 2016 Past Psychological History: No Psychological Hx Reported Additional Psychological History / Comment(s): grandson lives with the patient. History of chronic tobacco use active and alcohol use active, old drug use Smoking Status: Former smoker Past Alcohol Use History: None Reported Additional Past Alcohol Use History / Comment(s): Pt started smoking in 1966 and is a 1.5 ppd smoker. He states he drinks daily and last drank on 09/16/18. Past Drug Use History: None Reported - Past Family History Mother Family Medical History: Diabetes Mellitus Additional Family Medical History / Comment(s): Mother at age 74 from diabetic complications. Father Family Medical History: Congestive Heart Failure (CHF) Additional Family Medical History / Comment(s): Father at age 91 yrs. Medications and Allergies Home Medications Medication Instructions Recorded Confirmed Type Apixaban [Eliquis] 5 mg PEG/G-TUBE BID 08/04/20 09/26/20 History Levothyroxine Sodium [Euthyrox] 50 mcg PEG/G-TUBE DAILY 08/04/20 09/26/20 History Metoprolol Tartrate 25 mg PEG/G-TUBE TID 08/04/20 09/26/20 History QUEtiapine [SEROquel] 25 mg PEG/G-TUBE BID 08/04/20 09/26/20 History Torsemide [Demadex] 20 mg PEG/G-TUBE DAILY 08/04/20 09/26/20 History levETIRAcetam [levETIRAcetam Oral 500 mg PEG/G-TUBE BID 08/04/20 09/26/20 History Soln] Atorvastatin Calcium [Lipitor] 40 mg PEG/G-TUBE HS 08/18/20 09/26/20 History Folic Acid 1 mg PEG/G-TUBE DAILY@1200 08/18/20 09/26/20 History Escitalopram [Lexapro] 10 mg PEG/G-TUBE DAILY 09/26/20 09/26/20 History Esomeprazole Magnesium 20 mg PEG/G-TUBE DAILY 09/26/20 09/26/20 History Ipratropium-Albuterol Nebulize 3 ml INHALATION RT-BID 09/26/20 09/26/20 History [Duoneb 0.5 mg-3 mg/3 ml Soln] Allergies Allergy/AdvReac Type Severity Reaction Status Date / Time No Known Allergies Allergy Verified 09/26/20 14:23 Physical Exam Vitals: Vital Signs Temp Pulse Pulse Resp BP BP Pulse Ox 08/05/20 08:00 97.4 F L 55 L 18 119/59 96 08/05/20 02:00 97.5 F L 71 18 111/62 96 08/04/20 20:00 98.1 F 72 18 105/60 98 08/04/20 18:01 98.1 F 79 18 119/69 97 08/04/20 16:05 99.3 F 80 20 96/69 97 08/04/20 14:29 98.9 F 84 20 131/72 100 08/04/20 13:31 24 Intake and Output 08/04/20 08/05/20 08/05/20 22:59 06:59 14:59 Intake Total 120 Output Total 200 Balance -80 Intake: Oral 120 Output: Urine 200 Other: Voiding Method Toilet Toilet Urinal Urinal Diaper Diaper # Voids 4 # Bowel Movements 1 Weight 83.915 kg Results CBC & Chem 7: 08/05/20 06:23 08/05/20 06:23 Labs: Abnormal Lab Results - Last 24 Hours (Table) 08/04/20 08/04/20 08/04/20 Range/Units 13:30 13:30 13:30 WBC (3.8-10.6) k/uL RBC 3.91 L (4.30-5.90) m/uL Hgb 11.4 L (13.0-17.5) gm/dL Hct 35.7 L (39.0-53.0) % RDW 15.8 H (11.5-15.5) % Plt Count 127 L (150-450) k/uL Neutrophils # (1.3-7.7) k/uL Lymphocytes # 0.9 L (1.0-4.8) k/uL APTT 32.6 H (22.0-30.0) sec D-Dimer (<0.60) mg/L FEU Sodium 135 L (137-145) mmol/L Chloride 95 L (98-107) mmol/L Carbon Dioxide 33 H (22-30) mmol/L BUN 21 H (9-20) mg/dL BUN/Creatinine Ratio (12.00-20.00) Ratio Glucose (70-110) mg/dL Plasma Lactic Acid Silvino (0.7-2.0) mmol/L Calcium (8.7-10.3) mg/dL AST 70 H (17-59) U/L Alkaline Phosphatase 165 H (38-126) U/L C-Reactive Protein (0.0-0.8) mg/dL Total Protein 9.0 H (6.3-8.2) g/dL Albumin (3.80-4.90) g/dL Globulin (1.6-3.3) g/dL Albumin/Globulin Ratio (1.60-3.17) g/dL Coronavirus (PCR) (Not Detectd) 08/04/20 08/04/20 08/04/20 Range/Units 13:30 13:30 19:59 WBC (3.8-10.6) k/uL RBC (4.30-5.90) m/uL Hgb (13.0-17.5) gm/dL Hct (39.0-53.0) % RDW (11.5-15.5) % Plt Count (150-450) k/uL Neutrophils # (1.3-7.7) k/uL Lymphocytes # (1.0-4.8) k/uL APTT (22.0-30.0) sec D-Dimer 2.89 H (<0.60) mg/L FEU Sodium (137-145) mmol/L Chloride (98-107) mmol/L Carbon Dioxide (22-30) mmol/L BUN (9-20) mg/dL BUN/Creatinine Ratio (12.00-20.00) Ratio Glucose (70-110) mg/dL Plasma Lactic Acid Silvino 2.2 H* (0.7-2.0) mmol/L Calcium (8.7-10.3) mg/dL AST (17-59) U/L Alkaline Phosphatase (38-126) U/L C-Reactive Protein (0.0-0.8) mg/dL Total Protein (6.3-8.2) g/dL Albumin (3.80-4.90) g/dL Globulin (1.6-3.3) g/dL Albumin/Globulin Ratio (1.60-3.17) g/dL Coronavirus (PCR) Detected A (Not Detectd) 08/05/20 08/05/20 Range/Units 06:23 06:23 WBC 1.9 L (3.8-10.6) k/uL RBC 3.72 L (4.30-5.90) m/uL Hgb 11.4 L (13.0-17.5) gm/dL Hct 34.1 L (39.0-53.0) % RDW (11.5-15.5) % Plt Count 114 L (150-450) k/uL Neutrophils # 1.2 L (1.3-7.7) k/uL Lymphocytes # 0.5 L (1.0-4.8) k/uL APTT (22.0-30.0) sec D-Dimer (<0.60) mg/L FEU Sodium (137-145) mmol/L Chloride (98-107) mmol/L Carbon Dioxide (22-30) mmol/L BUN (9-20) mg/dL BUN/Creatinine Ratio 27.50 H (12.00-20.00) Ratio Glucose 127 H (70-110) mg/dL Plasma Lactic Acid Silvino (0.7-2.0) mmol/L Calcium 8.5 L (8.7-10.3) mg/dL AST 43 H (17-59) U/L Alkaline Phosphatase 143 H (38-126) U/L C-Reactive Protein 0.9 H (0.0-0.8) mg/dL Total Protein (6.3-8.2) g/dL Albumin 3.70 L (3.80-4.90) g/dL Globulin 3.8 H (1.6-3.3) g/dL Albumin/Globulin Ratio 0.97 L (1.60-3.17) g/dL Coronavirus (PCR) (Not Detectd) <Peri Espinal - Last Filed: 10/26/20 19:06> History of Present Illness - History of Present Illness PLAN : Patient with acute Covid 19 pneumonia, mild in this patient seemed to showing overall clinical improvement with supportive treatment, plan at this time is to continue the patient on Eliquis in addition to dexamethasone vitamin C vitamin D zinc and respiratory support no need for Remdisivir Results CBC & Chem 7: 08/06/20 05:52 08/06/20 05:52
--- NOTE | 2020-08-05 15:29 | P.PN ---
Subjective Progress Note Date: 08/05/20 This is a 70-year-old male who was recently admitted with increasing shortness of breath and also found to have a fever along with cough and is being closely monitored. Bilateral pneumonia was suspected and patient was found to be Covid 19 positive. Cardiology following and a 2-D echo was ordered and currently pending at this time. D-dimer was elevated at 2.89 and patient was previously on eliquis and will continue at this time. Patient also maintained on dexamethasone along with zinc and vitamin C and E supplements. Pulmonary along with infectious disease also following. Patient is currently 96% on 3 L via nasal cannula currently denies any worsening shortness of breath. Review of systems: Constitutional: No reports of fatigue, fever, or chills Cardiovascular: No reports of chest pain or palpitations Respiratory: Reports of shortness of breath although improved, continued cough GI: No reports of nausea, vomiting, or diarrhea : No reports of dysuria or retention Neurovascular: Reports of weakness All medications have been reviewed Active Medications Hydrocodone Bitart/Acetaminophen (Hydrocodone/Apap 5-325mg 1 Each Tab) 1 each PO Q6HR PRN PRN Reason: Pain Alprazolam (Alprazolam 0.25 Mg Tab) 0.25 mg PO TID PRN PRN Reason: Anxiety Apixaban (Apixaban 5 Mg Tab) 5 mg PEG/G-TUBE BID [facility] Last Admin: 08/05/20 09:24 Dose: 5 mg Documented by: Ascorbic Acid (Ascorbic Acid 500 Mg Tab) 500 mg PO DAILY [facility] Last Admin: 08/05/20 09:24 Dose: 500 mg Documented by: Atorvastatin Calcium (Atorvastatin 40 Mg Tab) 40 mg PEG/G-TUBE HS [facility] Last Admin: 08/04/20 22:21 Dose: 40 mg Documented by: Cholecalciferol (Cholecalciferol 1,000 Unit Tab) 1,000 unit PO DAILY [facility] Last Admin: 08/05/20 09:24 Dose: 1,000 unit Documented by: Dexamethasone (Dexamethasone 2 Mg Tab) 6 mg PO DAILY [facility] Last Admin: 08/05/20 09:24 Dose: 6 mg Documented by: Folic Acid (Folic Acid 1 Mg Tab) 1 mg PO DAILY@1200 [facility] Last Admin: 08/05/20 13:30 Dose: 1 mg Documented by: Levetiracetam (Levetiracetam Oral Soln 500 Mg/5 Ml Cup) 500 mg PEG/G-TUBE BID [facility] Last Admin: 08/05/20 09:24 Dose: 500 mg Documented by: Levothyroxine Sodium (Levothyroxine 50 Mcg Tab) 50 mcg PEG/G-TUBE DAILY [facility] Last Admin: 08/05/20 09:23 Dose: 50 mcg Documented by: Metoprolol Tartrate (Metoprolol Tartrate 25 Mg Tab) 25 mg PEG/G-TUBE TID [facility] Last Admin: 08/05/20 13:30 Dose: 25 mg Documented by: Multivitamins (Multivitamins, Thera 1 Each Tab) 1 each PEG/G-TUBE DAILY@1200 [facility] Last Admin: 08/05/20 13:30 Dose: 1 each Documented by: Pantoprazole Sodium (Pantoprazole 40 Mg Tablet) 40 mg PO AC-BRKFST [facility] Last Admin: 08/05/20 09:24 Dose: 40 mg Documented by: Quetiapine Fumarate (Quetiapine 25 Mg Tab) 25 mg PEG/G-TUBE BID [facility] Last Admin: 08/05/20 09:23 Dose: 25 mg Documented by: Thiamine HCl (Thiamine 100 Mg Tab) 100 mg PEG/G-TUBE DAILY@1200 [facility] Last Admin: 08/05/20 13:30 Dose: 100 mg Documented by: Torsemide (Torsemide 20 Mg Tab) 20 mg PEG/G-TUBE DAILY [facility] Last Admin: 08/05/20 09:23 Dose: 20 mg Documented by: Zinc Sulfate (Zinc Sulfate 220 Mg Cap) 220 mg PO DAILY [facility] Last Admin: 08/05/20 09:23 Dose: 220 mg Documented by: Objective - Vital Signs Vital signs: Vital Signs Temp 97.4 F L 08/05/20 08:00 Pulse 55 L 08/05/20 08:00 Resp 18 08/05/20 08:00 BP 119/59 08/05/20 08:00 Pulse Ox 96 08/05/20 08:00 Intake & Output 08/04/20 08/05/20 08/05/20 18:59 06:59 18:59 Intake Total 120 Output Total 200 Balance -80 Weight 83.915 kg Intake: Oral 120 Output: Urine 200 Other: Voiding Method Toilet Toilet Urinal Urinal Diaper Diaper # Voids 4 # Bowel Movements 1 - Exam Gen: This is a 30-year-old male awake, alert and oriented 3, well-developed, well-nourished. Temp is 97.4F, pulse is 55, respirations are 18, blood pressure is 119/59, oxygen saturation is 96% on 3 L via nasal cannula HEENT: Head is atraumatic, normocephalic. Pupils equal, round. Sclerae is anicteric. NECK: Supple. No JVD. No lymphadenopathy. No thyromegaly. LUNGS: Diminished breath sounds bilaterally with some scattered rhonchi noted. No intercostal retractions. HEART: Irregularly irregular, S1, S2 are muffled ABDOMEN: Soft. Bowel sounds are present. No masses. No tenderness. EXTREMITIES: No pedal edema. No calf tenderness. NEUROLOGICAL: Patient is awake, alert and oriented x3. Diffusely weak - Labs CBC & Chem 7: 08/05/20 06:23 08/05/20 06:23 Labs: Abnormal Lab Results - Last 24 Hours (Table) 08/04/20 08/04/20 08/05/20 Range/Units 13:30 19:59 06:23 WBC 1.9 L (3.8-10.6) k/uL RBC 3.72 L (4.30-5.90) m/uL Hgb 11.4 L (13.0-17.5) gm/dL Hct 34.1 L (39.0-53.0) % Plt Count 114 L (150-450) k/uL Neutrophils # 1.2 L (1.3-7.7) k/uL Lymphocytes # 0.5 L (1.0-4.8) k/uL D-Dimer 2.89 H (<0.60) mg/L FEU BUN/Creatinine Ratio (12.00-20.00) Ratio Glucose (70-110) mg/dL Calcium (8.7-10.3) mg/dL AST (14-35) U/L Alkaline Phosphatase (41-126) U/L C-Reactive Protein (0.0-0.8) mg/dL Albumin (3.80-4.90) g/dL Globulin (1.6-3.3) g/dL Albumin/Globulin Ratio (1.60-3.17) g/dL Coronavirus (PCR) Detected A (Not Detectd) 08/05/20 Range/Units 06:23 WBC (3.8-10.6) k/uL RBC (4.30-5.90) m/uL Hgb (13.0-17.5) gm/dL Hct (39.0-53.0) % Plt Count (150-450) k/uL Neutrophils # (1.3-7.7) k/uL Lymphocytes # (1.0-4.8) k/uL D-Dimer (<0.60) mg/L FEU BUN/Creatinine Ratio 27.50 H (12.00-20.00) Ratio Glucose 127 H (70-110) mg/dL Calcium 8.5 L (8.7-10.3) mg/dL AST 43 H (14-35) U/L Alkaline Phosphatase 143 H (41-126) U/L C-Reactive Protein 0.9 H (0.0-0.8) mg/dL Albumin 3.70 L (3.80-4.90) g/dL Globulin 3.8 H (1.6-3.3) g/dL Albumin/Globulin Ratio 0.97 L (1.60-3.17) g/dL Coronavirus (PCR) (Not Detectd) Assessment and Plan Assessment: Acute over 19 infection with bilateral pneumonia possibly gram-negative interstitial pneumonia with acute hypoxic respiratory failure with possible sepsis, present on admission Elevated lactic acid Hyponatremia Increased AST anemia, normocytic Thrombocytopenia History of recent aortic dissection repair History of recent PEG tube and tracheostomy History of atrial fibrillation/flutter History of coronary artery disease history of chronic obstructive pulmonary disease Cerebrovascular accident/TIA History of the deep vein thrombosis gastroesophageal reflux disease History of gastrointestinal bleed hypertension Hyperlipidemia history of chronic liver disease Memory impairment History of aortic replacement with bioprosthetic valve History of coronary artery disease, coronary artery bypass grafting, stent History of prostatectomy Remote history of nicotine dependence Recommendations and discussion: Recommend continuing current medications, management, and symptomatically treatment. 2-D echo is currently pending at this time. D-dimer is elevated and patient is maintained on Eliquis and will continue at this time. Cardiology following along with pulmonary and infectious disease. His maintained on dexamethasone along with zinc and vitamin C and E supplements and will continue at this time. Multiple complex medical issues, prognosis is guarded. Social work consulted for possible ECF placement is patient is weak and would benefit from some continued rehab. Patient was recently at rehab per family. Will have PT/OT evaluate the patient as well. Recommendations to follow.
--- NOTE | 2020-08-05 17:25 | ECHOF ---
Referral Reason:LV function MEASUREMENTS -------- HEIGHT: 175.3 cm WEIGHT: 83.9 kg BP: 119/59 RVIDd: 3.4 cm (< 3.3) IVSd: 1.2 cm (0.6 - 1.1) LVIDd: 5.4 cm (3.9 - 5.3) LVPWd: 1.2 cm (0.6 - 1.1) IVSs: 2.0 cm LVIDs: 3.8 cm LVPWs: 1.9 cm LA Diam: 4.4 cm (2.7 - 3.8) LAESV Index (A-L): 40.03 ml/m Ao Diam: 3.5 cm (2.0 - 3.7) MV EXCURSION: 20.651 mm (> 18.000) MV EF SLOPE: 113 mm/s (70 - 150) EPSS: 1.1 cm AV maxP.99 mmHg AV meanP.47 mmHg RAP: 5.00 mmHg RVSP: 25.15 mmHg FINDINGS -------- This was a technically adequate study. The left ventricular size is normal. There is borderline concentric left ventricular hypertrophy. Overall left ventricular systolic function is mildly impaired with, an EF between 45 - 50 %. The right ventricle is mildly enlarged. LA is severely dilated >40 ml/m2 The right atrium is normal in size. Interatrial and interventricular septum intact. Peak/mean gradient across the Aortic Valve is 11.99mmHg / 6.47mmHg. Normally functioning bioprosthe tic valve. Mild mitral annular calcification present. Mild mitral regurgitation is present. Mild tricuspid regurgitation present. Right ventricular systolic pressure is normal at < 35 mmHg. The pulmonic valve was not well visualized. The aortic root size is normal. Normal inferior vena cava with normal inspiratory collapse consistent with estimated right atrial pre ssure of 5 mmHg. The inferior vena cava is mildly dilated. There is no pericardial effusion. CONCLUSIONS -------- 1. The left ventricular size is normal. 2. There is borderline concentric left ventricular hypertrophy. 3. Overall left ventricular systolic function is mildly impaired with, an EF between 45 - 50 %. 4. The right ventricle is mildly enlarged. 5. LA is severely dilated >40 ml/m2 6. Peak/mean gradient across the Aortic Valve is 11.99mmHg / 6.47mmHg. 7. Normally functioning bioprosthetic valve. 8. Mild mitral annular calcification present. 9. Mild mitral regurgitation is present. 10. Mild tricuspid regurgitation present. 11. The inferior vena cava is mildly dilated. 12. There is no pericardial effusion. CONCRETE GRINDER OPERATOR: Sheryl Carrington RDCS
[2020-08-05] MEDS: ATORVASTATIN 40 MG TAB PEG/G-TUBE SCH (22:37)
[2020-08-06 04:58] VITALS: RESP 20
[2020-08-06 06:20] LABS: Basophils % (A) 0 %; Eosinophils % (A) 0 %; HCT 34.1 % (39.0-53.0); Lymphocytes % (A) 20 %; MCH 29.5 pg (25.0-35.0); MCHC 32.2 g/dL (31.0-37.0); MCV 91.7 fL (80.0-100.0); Mean Platelet Volume 8.7; Monocytes # (A) 0.5 k/uL (0-1.0); Monocytes % (A) 10 %; Neutrophils # (A) 3.2 k/uL (1.3-7.7); Neutrophils % (A) 67 %; Platelet Count 113 k/uL (150-450); RBC 3.72 m/uL (4.30-5.90); RDW 15.6 % (11.5-15.5); WBC 4.8 k/uL (3.8-10.6)
[2020-08-06] MEDS: PANTOPRAZOLE 40 MG TABLET PO SCH (09:06)
[2020-08-06] MEDS: LEVOTHYROXINE 50 MCG TAB PEG/G-TUBE SCH (09:06)
[2020-08-06] MEDS: QUEtiapine 25 MG TAB PEG/G-TUBE SCH (09:07)
[2020-08-06] MEDS: ASCORBIC ACID 500 MG TAB PO SCH (09:07)
[2020-08-06] MEDS: CHOLECALCIFEROL 1,000 UNIT TAB PO SCH (09:08)
[2020-08-06] MEDS: ZINC SULFATE 220 MG CAP PO SCH (09:08)
[2020-08-06] MEDS: METOPROLOL TARTRATE 25 MG TAB PEG/G-TUBE SCH (09:08)
[2020-08-06] MEDS: dexAMETHasone 2 MG TAB PO SCH (09:08)
[2020-08-06] MEDS: TORSEMIDE 20 MG TAB PEG/G-TUBE SCH (09:08)
[2020-08-06] MEDS: levETIRAcetam ORAL SOLN 500 MG/5 ML CUP PEG/G-TUBE SCH (09:09)
[2020-08-06] MEDS: APIXABAN 5 MG TAB PEG/G-TUBE SCH (09:09)
[2020-08-06 11:09] LABS: Albumin 3.6 g/dL (3.80-4.90); Albumin/Globulin Ratio 0.92 (1.60-3.17); Anion Gap 7.4 mmol/L (4.00-12.00); Calcium 8.4 mg/dL (8.7-10.3); Carbon Dioxide 30.6 mmol/L (21.6-31.8); Globulin 3.9 g/dL (1.6-3.3); Potassium 3.6 mmol/L (3.5-5.5); Total Bilirubin 0.3 mg/dL (0.2-1.2); Total Protein 7.5 g/dL (6.2-8.2)
[2020-08-06 11:29] LABS: African American GFR (CKD) 98.5 (60.0-200.0)
--- NOTE | 2020-08-06 11:33 | XR ---
EXAMINATION TYPE: XR chest 1V portable DATE OF EXAM: 08/06/2020 CLINICAL HISTORY: Difficulty breathing progress study. TECHNIQUE: Single AP portable frontal view of the chest is obtained. COMPARISON: Chest x-ray from 2 days earlier. CTA chest from yesterday. FINDINGS: There is chronic parenchymal changes bilaterally without suspicious new focal airspace opa city, pleural effusion, or pneumothorax seen. Overlying sternal wires redemonstrated. Redemonstration of metallic aortic valve and left atrial appendage clip. Stable mild cardiomegaly. Overlying right a xillary surgical clips redemonstrated. Osseous structures are intact. IMPRESSION: Chronic changes and cardiomegaly without acute pulmonary process. No significant change from prior studies.
[2020-08-06] MEDS: MULTIVITAMINS, THERA 1 EACH TAB PEG/G-TUBE SCH (11:44)
[2020-08-06] MEDS: FOLIC ACID 1 MG TAB PO SCH (11:44)
[2020-08-06] MEDS: THIAMINE 100 MG TAB PEG/G-TUBE SCH (11:44)
--- NOTE | 2020-08-06 11:46 | P.PN ---
Subjective Progress Note Date: 08/06/20 CHIEF COMPLAINT: A. fib HISTORY OF PRESENT ILLNESS: This is a 70-year-old male with a past medical history significant for COPD, home oxygen, pulmonary hypertension, hyperlipidemia, atrial fibrillation, hypertension, coronary artery disease with previous CABG and stenting, and aortic valve replacement with a bioprosthetic valve. Patient is currently admitted to the hospital secondary to Covid 19. Blood pressure 108/59. Heart rate in the 70s. He is on 2 L nasal cannula with oxygen saturations greater than 92%. He is afebrile. Echocardiogram completed revealing ejection fraction 45-50%. PHYSICAL EXAM: Thorough physical exam not completed secondary to limited evaluation/examination and due to Covid19 ASSESSMENT: Acute Covid 19 Chronic persistent atrial fibrillation, on anticoagulation with Eliquis COPD with home oxygen Pulmonary hypertension Hypertension Hyperlipidemia Coronary artery disease with previous CABG and stent placement History of aortic valve replacement with bioprosthetic valve PLAN: Continue current cardiac medications Continue telemetry monitoring Supportive care We will sign off. Please reconsult if needed. Nurse practitioner note has been reviewed by physician. Signing provider agrees with the documented findings, assessment, and plan of care. Objective - Vital Signs Vital signs: Vital Signs Temp 97.4 F L 08/06/20 04:55 Pulse 68 08/06/20 04:55 Resp 20 08/06/20 04:55 BP 108/59 08/06/20 04:55 Pulse Ox 99 08/06/20 04:55 Intake & Output 08/05/20 08/06/20 08/06/20 18:59 06:59 18:59 Intake Total 500 Output Total 300 Balance -300 500 Intake: Oral 500 Output: Urine 300 Other: Voiding Method Toilet Toilet Urinal Diaper Diaper # Voids 4 - Labs CBC & Chem 7: 08/06/20 05:52 08/06/20 05:52 Labs: Abnormal Lab Results - Last 24 Hours (Table) 08/05/20 08/06/20 08/06/20 Range/Units 06:23 05:52 05:52 RBC 3.72 L (4.30-5.90) m/uL Hgb 11.0 L (13.0-17.5) gm/dL Hct 34.1 L (39.0-53.0) % RDW 15.6 H (11.5-15.5) % Plt Count 113 L (150-450) k/uL BUN/Creatinine Ratio 27.50 H 30.00 H (12.00-20.00) Ratio Glucose 127 H (70-110) mg/dL Calcium 8.5 L 8.4 L (8.7-10.3) mg/dL AST 43 H 38 H (14-35) U/L Alkaline Phosphatase 143 H 130 H (41-126) U/L C-Reactive Protein 0.9 H (0.0-0.8) mg/dL Albumin 3.70 L 3.60 L (3.80-4.90) g/dL Globulin 3.8 H 3.9 H (1.6-3.3) g/dL Albumin/Globulin Ratio 0.97 L 0.92 L (1.60-3.17) g/dL Microbiology - Last 24 Hours (Table) 08/04/20 14:48 Blood Culture - Preliminary Blood No Growth after 24 hours 08/04/20 13:30 Blood Culture - Preliminary Blood No Growth after 24 hours
[2020-08-06 12:39] VITALS: BP 112/67; PULSE 77; TEMP 97.6
--- NOTE | 2020-08-06 12:45 | P.PN ---
Subjective Progress Note Date: 08/06/20 Principal diagnosis: COVID 19 pneumonitis 70-year-old white male patient with extensive medical history including chronic A. 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 Patient lives with his son and his grandson, and was brought in for evaluation of a fever of 1012 days ago, increasing weakness, and some cough and some increased shortness of breath. Patient wears 2 L of oxygen on a regular basis, he is currently on 3 L. Patient himself is a poor historian, he has garbled speech which is at baseline after his stroke several months ago, however she denies feeling ill, denied being short of breath, she denied having any nausea vomiting or diarrhea. His ER r ecord states that aside from the one day of fever he has not had a fever since. He is on Eliquis for anticoagulation. He denies being exposed to COVID 19. Chest x-ray showed increased interstitial density, his laboratory analysis showed a white blood cell count of 4.8, hemoglobin of 11.4, platelet count of 127, lymphocyte count of 0.9, d-dimer was 2.89, sodium is 135, potassium 4.6, chloride is 95, CO2 33, BUN is 21 creatinine 0.8, plasma lactic acid is 2.2 which has improved down to 1.6 with IV hydration, proBNP was 700 is 26, urinalysis was within normal limits, coronavirus PCR was positive. Patient appears to be quite comfortable, sitting up in bed, his pulse ox is 96% on 3 L, his been afebrile, hemodynamically has been stable. Does have a congested cough, but no significant phlegm production, his gas and crackles at bilateral bases, he denies feeling ill, reports no symptoms today. He was started on oral Decadron, vitamin C, vitamin E, IV hydration, zinc supplements, and he is on his Eliquis On August 06, 2020 patient seen in follow-up on medical floor, he is looking comfortable, he is currently on his home dose O2, 2 L of oxygen, his pulse ox is 94%. He has no specific complaints. He is breathing comfortably, no complaints of chest pain, his vital signs have been stable overnight, his been treated conservatively for his Coumadin 19 infection with oral steroids, and vitamins, and he has already been on Eliquis for chronic anticoagulation. Today's labs have been reviewed, showing white blood cell, 4.8, hemoglobin of 11, electrolytes and renal profile were unremarkable. he reports no worsening dyspnea, no significant cough, he is being considered for discharge home today. Objective - Vital Signs Vital signs: Vital Signs Temp 97.4 F L 08/06/20 04:55 Pulse 68 08/06/20 04:55 Resp 20 08/06/20 04:55 BP 108/59 08/06/20 04:55 Pulse Ox 99 08/06/20 04:55 Intake & Output 08/05/20 08/06/20 08/06/20 18:59 06:59 18:59 Intake Total 500 Output Total 300 Balance -300 500 Intake: Oral 500 Output: Urine 300 Other: Voiding Method Toilet Toilet Urinal Diaper Diaper # Voids 4 - Exam GENERAL EXAM: Alert, very pleasant, 70-year-old white male, on 2 L of oxygen with pulse ox of 96%, patient is a poor historian, related to his garbled speech, which is apparently a new baseline since his stroke several months ago comfortable in no apparent distress. HEAD: Normocephalic/atraumatic. EYES: Normal reaction of pupils, equal size. Conjunctiva pink, sclera white. NOSE: Clear with pink turbinates. THROAT: No erythema or exudates. NECK: No masses, no JVD, no thyroid enlargement, no adenopathy. CHEST: No chest wall deformity. Symmetrical expansion. LUNGS: Equal air entry with basilar crackles, but no wheeze, rhonchi or dullness. CVS: Regular rate and rhythm, normal S1 and S2, no gallops, no murmurs, no rubs ABDOMEN: Soft, nontender. No hepatosplenomegaly, normal bowel sounds, no guarding or rigidity. EXTREMITIES: No clubbing, no edema, no cyanosis, 2+ pulses and upper and lower extremities. MUSCULOSKELETAL: Muscle strength and tone normal. SPINE: No scoliosis or deformity SKIN: No rashes CENTRAL NERVOUS SYSTEM: Alert and oriented -3. No focal deficits, tone is normal in all 4 extremities. PSYCHIATRIC: Alert and oriented -3. Appropriate affect. Intact judgment and insight. - Labs CBC & Chem 7: 08/06/20 05:52 08/06/20 05:52 Labs: Abnormal Lab Results - Last 24 Hours (Table) 08/05/20 08/06/20 08/06/20 Range/Units 06:23 05:52 05:52 RBC 3.72 L (4.30-5.90) m/uL Hgb 11.0 L (13.0-17.5) gm/dL Hct 34.1 L (39.0-53.0) % RDW 15.6 H (11.5-15.5) % Plt Count 113 L (150-450) k/uL BUN/Creatinine Ratio 27.50 H 30.00 H (12.00-20.00) Ratio Glucose 127 H (70-110) mg/dL Calcium 8.5 L 8.4 L (8.7-10.3) mg/dL AST 43 H 38 H (14-35) U/L Alkaline Phosphatase 143 H 130 H (41-126) U/L C-Reactive Protein 0.9 H (0.0-0.8) mg/dL Albumin 3.70 L 3.60 L (3.80-4.90) g/dL Globulin 3.8 H 3.9 H (1.6-3.3) g/dL Albumin/Globulin Ratio 0.97 L 0.92 L (1.60-3.17) g/dL Microbiology - Last 24 Hours (Table) 08/04/20 14:48 Blood Culture - Preliminary Blood No Growth after 24 hours 08/04/20 13:30 Blood Culture - Preliminary Blood No Growth after 24 hours Assessment and Plan Plan: Assessment: #1. Acute on chronic hypoxic respiratory failure related to acute COVID 19 related pneumonitis, patient normally wears 2 L of oxygen at home on a regular basis. His FiO2 requirements are not significantly higher from his baseline, his symptoms were cough, mild shortness of breath, and weakness. Patient is a poor historian, most of the history was obtained from the nursing staff in the chart, and there is a history of a one day fever 3 days ago, which has not recurred #2. Increased d-dimer, of 2.89, patient is on Eliquis on a regular basis for history of chronic A. fib and history of DVT #3. History of CVA with residual dysarthria, and dysphagia with previous PEG tube placement however patient is now eating by mouth and tolerating oral diet well #4. Mild lactic acidosis improved with IV hydration #5. History of COPD with chronic hypoxic respiratory failure usually wears 2 L of oxygen at home #6. History of CAD with previous bypass grafting and stenting #7. History of valvular disease, status post aortic valve replacement with bioprosthetic valve reportedly in January 2020 #8. Previous history of tracheostomy and PEG tube placement, tracheostomy was removed however the PEG tube remains in place, currently being used for nutritional #9. History of a dissecting descending aorta with surgical repair #10. History of pulmonary hypertension, likely secondary to COPD #11. History of hypertension #12. History of hyperlipidemia #13. History of prostate cancer with prostatectomy #14. Previous history of GI bleeding #15. Previous history of chronic alcoholism with liver cirrhosis #16. Former smoker Plan: Patient is doing well, has remained stable since admission, no fever or chills, he is back to his baseline home FiO2 of 2 L, seems very comfortable, no cough or dyspnea, she stable for discharge home from pulmonary perspective. He can complete outpatient course of oral Decadron a total of 10 days including what he received in the hospital, and he can continue on the vitamins and his chronic anticoagulation I performed a history & physical examination of the patient and discussed their management with my nurse practitioner, Brooke Henao. I reviewed the nurse practitioner's note and agree with the documented findings and plan of care. Lung sounds are positive for mild bibasilar crackles.. The findings and the impression was discussed with the patient. I attest to the documentation by the nurse practitioner. Time with Patient: Less than 30
--- NOTE | 2020-08-06 15:21 | P.DS ---
Providers Date of admission: 08/04/20 15:25 Expected date of discharge: 08/06/20 Attending physician: Fred Desir Consults: 08/04/20 15:24 Consult Physician Urgent Consulting Provider: Mulu Downey Consult Reason/Comments: COVID Pneumonia Do you want consulting provider notified?: Yes 08/04/20 19:45 Consult Physician Routine Consulting Provider: Leisa Sanabria Consult Reason/Comments: afib Do you want consulting provider notified?: Yes 08/05/20 01:06 Consult Physician Routine Consulting Provider: Peri Espinal Consult Reason/Comments: Covid 19 Do you want consulting provider notified?: Yes, Notify in am Primary care physician: [facility] Hospital Course: Final diagnosis Acute Covid 19 infection with bilateral pneumonia possibly gram-negative interstitial pneumonia with acute hypoxic respiratory failure with possible sepsis, present on admission Elevated lactic acid Hyponatremia Increased AST anemia, normocytic Thrombocytopenia History of recent aortic dissection repair History of recent PEG tube and tracheostomy History of atrial fibrillation/flutter History of coronary artery disease history of chronic obstructive pulmonary disease Cerebrovascular accident/TIA History of the deep vein thrombosis gastroesophageal reflux disease History of gastrointestinal bleed hypertension Hyperlipidemia history of chronic liver disease Memory impairment History of aortic replacement with bioprosthetic valve History of coronary artery disease, coronary artery bypass grafting, stent History of prostatectomy Remote history of nicotine dependence Discharge disposition Patient is being discharged in a stable condition with guarded prognosis to home. Patient will continue with home care. Patient will follow-up with [facility] in the outpatient setting upon discharge. Patient will continue on dexamethasone 6 mg daily to complete the course along with vitamin C&D and zinc supplements. Total time taken is greater than 35 minutes. Hospital course This is a 70-year-old male who was recently admitted with increasing shortness of breath and was found to have fevers along with bilateral pneumonia and was being closely monitored. Patient was also found to be Covid 19 positive. Patient was seen and evaluated by pulmonary along with radiology and patient is currently maintained on Eliquis and will continue at this time. Patient was also initiated on dexamethasone 6 mg and will continue in the outpatient setting to complete the course along with vitamin C and D supplements. Patient states he has his son at home along with a grandchild that helps take care of him and will continue with home care in the outpatient setting. [facility] and instructed to follow-up there upon discharge. Patient currently wears 2 L of oxygen at home and is currently on 2 L at 98%. Currently no reports of chest pain, worsening shortness of breath, or palpitations. Patient is afebrile. No reports of nausea or vomiting and patient is tolerating diet. Patient will be discharged home today. Guarded prognosis. On exam vital signs are stable. Patient wears 2 L of oxygen via nasal cannula in the outpatient setting. Cardio S1, S2 are muffled. Respiratory system shows diminished breath sounds at the bases left more than the right with no wheezing or rhonchi noted. Abdomen is soft and nontender. Nervous system shows no focal deficits. Please refer to medication reconciliation sheet for a list of medications. Patient Condition at Discharge: Fair Plan - Discharge Summary New Discharge Prescriptions: New Folic Acid 1 mg PO DAILY@1200 30 Days #30 tab dexAMETHasone [Hexadrol] 6 mg PO DAILY 9 Days #27 tab Multivitamins, Thera [Multivitamin (formulary)] 1 each PEG/G-TUBE DAILY@1200 30 Days #30 tab Zinc Sulfate [Orazinc] 220 mg PO DAILY 30 Days #30 cap Pantoprazole [Protonix] 40 mg PO AC-BRKFST 30 Days #30 tablet. Thiamine [Vitamin B-1] 100 mg PEG/G-TUBE DAILY@1200 30 Days #30 tab Ascorbic Acid [Vitamin C] 500 mg PO DAILY 30 Days #30 tab Cholecalciferol [Vitamin D3 (25 Mcg = 1000 Iu)] 1,000 unit PO DAILY 30 Days # 30 tab Continue Atorvastatin Calcium [Lipitor] 40 mg PEG/G-TUBE HS Torsemide [Demadex] 20 mg PEG/G-TUBE DAILY Levothyroxine Sodium [Euthyrox] 50 mcg PEG/G-TUBE DAILY Apixaban [Eliquis] 5 mg PEG/G-TUBE BID QUEtiapine [SEROquel] 25 mg PEG/G-TUBE BID Metoprolol Tartrate 25 mg PEG/G-TUBE TID levETIRAcetam [levETIRAcetam Oral Soln] 500 mg PEG/G-TUBE BID Discharge Medication List Atorvastatin Calcium [Lipitor] 40 mg PEG/G-TUBE HS 04/04/18 [History] Apixaban [Eliquis] 5 mg PEG/G-TUBE BID 01/04/21 [History] Levothyroxine Sodium [Euthyrox] 50 mcg PEG/G-TUBE DAILY 08/04/20 [History] Metoprolol Tartrate 25 mg PEG/G-TUBE TID 08/04/20 [History] QUEtiapine [SEROquel] 25 mg PEG/G-TUBE BID 08/04/20 [History] Torsemide [Demadex] 20 mg PEG/G-TUBE DAILY 08/04/20 [History] levETIRAcetam [levETIRAcetam Oral Soln] 500 mg PEG/G-TUBE BID 08/04/20 [History] Ascorbic Acid [Vitamin C] 500 mg PO DAILY 30 Days #30 tab 08/06/20 [Rx] Cholecalciferol [Vitamin D3 (25 Mcg = 1000 Iu)] 1,000 unit PO DAILY 30 Days #30 tab 08/06/20 [Rx] Folic Acid 1 mg PO DAILY@1200 30 Days #30 tab 08/06/20 [Rx] Multivitamins, Thera [Multivitamin (formulary)] 1 each PEG/G-TUBE DAILY@1200 30 Days #30 tab 08/06/20 [Rx] Pantoprazole [Protonix] 40 mg PO AC-BRKFST 30 Days #30 tablet. 08/06/20 [Rx] Thiamine [Vitamin B-1] 100 mg PEG/G-TUBE DAILY@1200 30 Days #30 tab 08/06/20 [Rx] Zinc Sulfate [Orazinc] 220 mg PO DAILY 30 Days #30 cap 08/06/20 [Rx] dexAMETHasone [Hexadrol] 6 mg PO DAILY 9 Days #27 tab 08/06/20 [Rx] Follow up Appointment(s)/Referral(s): [facility]idential [facility] [NON-STAFF] - [facility]Clinic [Primary Care Provider] - 1-2 days (Please call and make follow up appointment.) Patient Instructions/Handouts: Pneumonia (DC) Activity/Diet/Wound Care/Special Instructions: Dr. Desir to see prior to discharge/ ID/ pulmonary to clear Activity Limited until follow-up Follow-up with primary care provider upon discharge Continue steroids until finished Continue with vitamin supplements Continue with dysphagia 2 ground diet Continue with home care in the outpatient setting Discharge Disposition: HOME WITH HOME HEALTH SERVICES
--- NOTE | 2020-10-26 19:07 | P.PN ---
Progress Note - Text Progress Note Date: 08/06/20 REASON FOR FOLLOWUP: Covid 19 pneumonia INTERVAL HISTORY: Patient is a 70-year-old male admitted to the hospital with increasing shortness of breath And cough patient with an was with acute Covid 19 pneumonia On today's evaluation patient denies having any fever or chills the patient is breathing comfortably denies any chest pain and minimal cough No abdominal pain and no diarrhea PHYSICAL EXAMINATION: Blood pressure 130/86 with a pulse of 75, temperature 98.1, pt is 97% on room air. General description is an elderly male, lying in bed in no distress. RESPIRATORY SYSTEM: Unlabored breathing, decreased intensity of breath sounds. HEART: S1, S2. Regular rate and rhythm. ABDOMEN: Soft, no tenderness. EXTREMITIES: No edema of the feet. LABS: Reviewed DIAGNOSTIC IMPRESSION AND PLAN: Patient with acute Covid 19 pneumonia, mild illness Patient seemed to showing overall clinical improvement, plan is to continue the patient on Adequate short course of dexamethasone zinc and vitamin C, and close out Patient follow-up
== END 2020-08-06 17:31 | disposition home health service (06) | DRG 871 ==
LOC: EC 12:28 → 6NMEDSUR 15:25
PROVIDERS: ADMIT Hospitalist; ATTEND Hospitalist
DX: A41.89 Other specified sepsis (principal); U07.1 COVID-19; J96.21 Acute and chronic respiratory failure with hypoxia; J12.82 Pneumonia due to coronavirus disease 2019; E87.2 Acidosis; J44.0 Chronic obstructive pulmonary disease with (acute) lower respiratory infection; Z43.1 Encounter for attention to gastrostomy; I48.19 Other persistent atrial fibrillation; E87.1 Hypo-osmolality and hyponatremia; D69.6 Thrombocytopenia, unspecified; I27.23 Pulmonary hypertension due to lung diseases and hypoxia; I11.0 Hypertensive heart disease with heart failure; I50.9 Heart failure, unspecified; K70.30 Alcoholic cirrhosis of liver without ascites; F10.20 Alcohol dependence, uncomplicated; D72.819 Decreased white blood cell count, unspecified; D64.9 Anemia, unspecified; I69.322 Dysarthria following cerebral infarction; I69.391 Dysphagia following cerebral infarction; R13.10 Dysphagia, unspecified; I25.10 Atherosclerotic heart disease of native coronary artery without angina pectoris; B19.20 Unspecified viral hepatitis C without hepatic coma; K21.9 Gastro-esophageal reflux disease without esophagitis; E78.5 Hyperlipidemia, unspecified; H35.30 Unspecified macular degeneration; H93.13 Tinnitus, bilateral; H91.90 Unspecified hearing loss, unspecified ear; I83.91 Asymptomatic varicose veins of right lower extremity; Z99.81 Dependence on supplemental oxygen; Z79.01 Long term (current) use of anticoagulants; Z79.890 Hormone replacement therapy; Z79.899 Other long term (current) drug therapy; Z86.79 Personal history of other diseases of the circulatory system; Z86.718 Personal history of other venous thrombosis and embolism; Z85.46 Personal history of malignant neoplasm of prostate; Z90.79 Acquired absence of other genital organ(s); Z87.01 Personal history of pneumonia (recurrent); Z87.891 Personal history of nicotine dependence; Z95.1 Presence of aortocoronary bypass graft; Z95.3 Presence of xenogenic heart valve; Z87.81 Personal history of (healed) traumatic fracture; Z95.5 Presence of coronary angioplasty implant and graft; Z87.440 Personal history of urinary (tract) infections; Z87.19 Personal history of other diseases of the digestive system; Z86.010 Personal history of colon polyps; Z98.890 Other specified postprocedural states; Z83.3 Family history of diabetes mellitus; Z82.49 Family history of ischemic heart disease and other diseases of the circulatory system
CPT/HCPCS: 36415; 71045; 71046; 71275; 80053; 81003; 82728; 83605; 83615; 83880; 85025; 85379; 85610; 85730; 86140; 87040; 87635; 93005; 93306; 99291

== ENCOUNTER 2020-08-18 17:31 | Inpatient (IN) | payer OTHER, MEDICARE, BC ==
[2020-08-18 18:24] LABS: Basophils # (A) 0.1 k/uL (0-0.2); Basophils % (A) 1 %; Eosinophils # (A) 0.1 k/uL (0-0.7); Eosinophils % (A) 1 %; HCT 37.6 % (39.0-53.0); HGB 12.2 gm/dL (13.0-17.5); Lymphocytes # (A) 1.1 k/uL (1.0-4.8); Lymphocytes % (A) 12 %; MCH 29.4 pg (25.0-35.0); MCHC 32.4 g/dL (31.0-37.0); MCV 90.8 fL (80.0-100.0); Mean Platelet Volume 7.9; Monocytes # (A) 0.5 k/uL (0-1.0); Monocytes % (A) 6 %; Neutrophils # (A) 6.9 k/uL (1.3-7.7); Neutrophils % (A) 78 %; Platelet Count 120 k/uL (150-450); RBC 4.14 m/uL (4.30-5.90); RDW 14.8 % (11.5-15.5); WBC 8.9 k/uL (3.8-10.6)
[2020-08-18 18:30] LABS: Partial Thromboplastin Time 27.4 sec (22.0-30.0); Prothrombin Time 10.9 sec (9.0-12.0)
--- NOTE | 2020-08-18 18:44 | XR ---
EXAMINATION TYPE: XR chest 2V DATE OF EXAM: 08/18/2020 COMPARISON: 08/06/2020 HISTORY: Difficulty breathing TECHNIQUE: FINDINGS: Heart is enlarged. There is no heart failure. Facet aorta is atheromatous. There are sterna l wires. There are chest leads. There is cardiac valve surgery. Bony thorax is intact. IMPRESSION: Cardiomegaly that appears increased compared to old exam. No heart failure.
--- NOTE | 2020-08-18 18:53 | ED ---
General Adult HPI - General Source: patient, RN notes reviewed Mode of arrival: wheelchair Limitations: no limitations <Rangel Hood - Last Filed: 08/18/20 18:48> <Milady Ocasio - Last Filed: 08/19/20 22:42> - General Chief complaint: Recheck/Abnormal Lab/Rx Stated complaint: High BP Time Seen by Provider: 08/18/20 17:51 - History of Present Illness Initial comments: 70-year-old male presents emergency Department with son chief complaint of increased weakness, low blood pressure, Covid. Patient was recently hospitalized at the beginning of August for Covid. Patient had open-heart surgery for aortic dissection in January. Patient recently was found have blood pressures in the 80s over 50s at home which he discontinued his metoprolol but has not seen a design lead for this. Patient denies any chest pain he's had increase work of breathing at home. Son states that he looks much more weak than usual and more fatigued. He has no significant leg swelling this time though he has chronic leg swelling. Patient hasn't complaint abdominal pain. (Rangel Hood) - Related Data Home Medications Medication Instructions Recorded Confirmed Apixaban [Eliquis] 5 mg PO BID 08/04/20 08/19/20 Levothyroxine Sodium [Euthyrox] 50 mcg PO DAILY 08/04/20 08/19/20 Metoprolol Tartrate 25 mg PO TID 08/04/20 08/19/20 QUEtiapine [SEROquel] 25 mg PO BID 08/04/20 08/19/20 Torsemide [Demadex] 20 mg PO DAILY 08/04/20 08/19/20 levETIRAcetam [levETIRAcetam Oral 500 mg PO BID 08/04/20 08/19/20 Soln] Ascorbic Acid [Vitamin C] 500 mg PO DAILY 08/18/20 08/19/20 Atorvastatin Calcium [Lipitor] 40 mg PO HS 08/18/20 08/19/20 Cholecalciferol [Vitamin D3 (25 1,000 unit PO DAILY 08/18/20 08/19/20 Mcg = 1000 Iu)] Folic Acid 1 mg PO DAILY@1200 08/18/20 08/19/20 Multivitamins, Thera [Multivitamin 1 tab PO DAILY@1200 08/18/20 08/19/20 (formulary)] Pantoprazole [Protonix] 40 mg PO AC-BRKFST 08/18/20 08/19/20 Potassium Chloride [Klor-Con 20 20 meq PO DAILY 08/18/20 08/19/20 Packets] Thiamine [Vitamin B-1] 100 mg PO DAILY@1200 08/19/20 08/19/20 Previous Rx's Medication Instructions Recorded Zinc Sulfate [Orazinc] 220 mg PO DAILY 30 Days #30 cap 08/06/20 Allergies Allergy/AdvReac Type Severity Reaction Status Date / Time No Known Allergies Allergy Verified 08/18/20 19:54 Review of Systems ROS Other: All systems not noted in ROS Statement are negative. <Rangel Hood - Last Filed: 08/18/20 18:48> ROS Other: All systems not noted in ROS Statement are negative. <Milady Ocasio - Last Filed: 08/19/20 22:42> ROS Statement: Those systems with pertinent positive or pertinent negative responses have been documented in the HPI. 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, chronic atrial fibrillation and is anticoagulated with warfarin, aortic valve replacement with a bioprosthetic valve, pulmonary hypertension, chronic hypoxic respiratory failure with home O2 at , previous pneumonia 2008 and 2014, prostate cancer with prostatectomy, DVT R lower leg x2, macular degeneration L eye, left arm fracture, chronic tinnitus in both ears, gastritis, lower GIm bleed, UTI, liver cirrhosis related to history of alcoholism, hepatitis C at age 14yrs., feeding tube, alcoholism Last Myocardial Infarction Date:: unsure History of Any Multi-Drug Resistant Organisms: None Reported Date of last positivie culture/infection: None MDRO Source:: None Past Surgical History: Cardiac Valve Replacement, Coronary Bypass/CABG, Heart Catheterization, Heart Catheterization With Stent, Hernia Repair, Orthopedic Surgery, Prostate Surgery Additional Past Surgical History / Comment(s): Aortic valve replacement, prostatectomy, right inguinal hernia repair 2, bilateral knee arthroscopy, colonoscopy/polypectomy, EGD, right leg varicose vein stripping, removal of a blood clot from the right lower extremity, cervical surgery d/t injury in [place] and removal of shrapnel's from the right shoulder, feeding tube Past Anesthesia/Blood Transfusion Reactions: No Reported Reaction Date of Last Stent Placement:: 2016 Past Psychological History: No Psychological Hx Reported Smoking Status: Former smoker Past Alcohol Use History: None Reported Past Drug Use History: None Reported - Past Family History Mother Family Medical History: Diabetes Mellitus Additional Family Medical History / Comment(s): Mother at age 74 from diabetic complications. Father Family Medical History: Congestive Heart Failure (CHF) Additional Family Medical History / Comment(s): Father at age 91 yrs. <Rangel Hood - Last Filed: 08/18/20 18:48> General Exam Limitations: no limitations General appearance: alert, in no apparent distress Head exam: Present: atraumatic, normocephalic, normal inspection Eye exam: Present: normal appearance, PERRL, EOMI. Absent: scleral icterus, conjunctival injection, periorbital swelling ENT exam: Present: normal exam, normal oropharynx, mucous membranes moist Neck exam: Present: normal inspection. Absent: tenderness, meningismus, lymphadenopathy Respiratory exam: Present: wheezes, rhonchi. Absent: normal lung sounds bilaterally, respiratory distress, rales, stridor Cardiovascular Exam: Present: regular rate, normal rhythm, normal heart sounds. Absent: systolic murmur, diastolic murmur, rubs, gallop, clicks GI/Abdominal exam: Present: soft, normal bowel sounds. Absent: distended, tenderness, guarding, rebound, rigid Neurological exam: Present: alert Skin exam: Present: warm, dry, intact, normal color. Absent: rash <Rangel Hood - Last Filed: 08/18/20 18:48> Course Vital Signs 08/18/20 08/18/20 08/18/20 17:40 18:40 22:08 Temperature 99.0 F Pulse Rate 87 93 86 Respiratory 22 18 20 Rate Blood Pressure 106/58 103/66 103/71 O2 Sat by Pulse 94 L 98 96 Oximetry Medical Decision Making - Lab Data Result diagrams: 08/18/20 18:09 <Rangel Hood - Last Filed: 08/18/20 18:48> - Lab Data Result diagrams: 08/18/20 18:09 08/18/20 18:09 <Milady Ocasio - Last Filed: 08/19/20 22:42> - Medical Decision Making The patient was signed out to me from Rangel. I did review the patient's labs. The pressure is improved after fluid hydration. Patient has acute transaminitis. Ultrasound demonstrates a gallstone. Spoke with the patient's family. Recommended admission to [facility] for hypotension and new transaminitis. We'll consult GI and surgery. Spoke with Nadeem from [facility]. Patient's taken is taken to the floor in stable condition (Milady Ocasio) - Lab Data Lab Results 08/18/20 08/18/20 08/18/20 Range/Units 18:09 18:09 18:09 WBC 8.9 (3.8-10.6) k/uL RBC 4.14 L (4.30-5.90) m/uL Hgb 12.2 L (13.0-17.5) gm/dL Hct 37.6 L (39.0-53.0) % MCV 90.8 (80.0-100.0) fL MCH 29.4 (25.0-35.0) pg MCHC 32.4 (31.0-37.0) g/dL RDW 14.8 (11.5-15.5) % Plt Count 120 L (150-450) k/uL MPV 7.9 Neutrophils % 78 % Lymphocytes % 12 % Monocytes % 6 % Eosinophils % 1 % Basophils % 1 % Neutrophils # 6.9 (1.3-7.7) k/uL Lymphocytes # 1.1 (1.0-4.8) k/uL Monocytes # 0.5 (0-1.0) k/uL Eosinophils # 0.1 (0-0.7) k/uL Basophils # 0.1 (0-0.2) k/uL PT 10.9 (9.0-12.0) sec INR 1.0 (<1.2) APTT 27.4 (22.0-30.0) sec Sodium 137 (137-145) mmol/L Potassium 4.6 (3.5-5.1) mmol/L Chloride 98 (98-107) mmol/L Carbon Dioxide 31 H (22-30) mmol/L Anion Gap 8 mmol/L BUN 23 H (9-20) mg/dL Creatinine 0.82 (0.66-1.25) mg/dL Est GFR (CKD-EPI)AfAm >90 (>60 ml/min/1.73 sqM) Est GFR (CKD-EPI)NonAf 88 (>60 ml/min/1.73 sqM) Glucose 160 H (74-99) mg/dL Lactic Ac Sepsis Rflx Plasma Lactic Acid Silvino (0.7-2.0) mmol/L Calcium 8.6 (8.4-10.2) mg/dL Magnesium 1.7 (1.6-2.3) mg/dL Total Bilirubin 0.6 (0.2-1.3) mg/dL AST 206 H (17-59) U/L ALT 265 H (4-49) U/L Alkaline Phosphatase 227 H (38-126) U/L Troponin I (0.000-0.034) ng/mL C-Reactive Protein 22.1 H (<10.0) mg/L NT-Pro-B Natriuret Pep pg/mL Total Protein 7.6 (6.3-8.2) g/dL Albumin 3.6 (3.5-5.0) g/dL Hepatitis A IgM Ab (Non-Reactive) Hep Bs Antigen (Non-Reactive) Hep B Core IgM Ab (Non-Reactive) Hep C IgG Ab (Non-Reactive) 08/18/20 08/18/20 08/18/20 Range/Units 18:09 18:09 18:09 WBC (3.8-10.6) k/uL RBC (4.30-5.90) m/uL Hgb (13.0-17.5) gm/dL Hct (39.0-53.0) % MCV (80.0-100.0) fL MCH (25.0-35.0) pg MCHC (31.0-37.0) g/dL RDW (11.5-15.5) % Plt Count (150-450) k/uL MPV Neutrophils % % Lymphocytes % % Monocytes % % Eosinophils % % Basophils % % Neutrophils # (1.3-7.7) k/uL Lymphocytes # (1.0-4.8) k/uL Monocytes # (0-1.0) k/uL Eosinophils # (0-0.7) k/uL Basophils # (0-0.2) k/uL PT (9.0-12.0) sec INR (<1.2) APTT (22.0-30.0) sec Sodium (137-145) mmol/L Potassium (3.5-5.1) mmol/L Chloride (98-107) mmol/L Carbon Dioxide (22-30) mmol/L Anion Gap mmol/L BUN (9-20) mg/dL Creatinine (0.66-1.25) mg/dL Est GFR (CKD-EPI)AfAm (>60 ml/min/1.73 sqM) Est GFR (CKD-EPI)NonAf (>60 ml/min/1.73 sqM) Glucose (74-99) mg/dL Lactic Ac Sepsis Rflx Plasma Lactic Acid Silvino 3.0 H* (0.7-2.0) mmol/L Calcium (8.4-10.2) mg/dL Magnesium (1.6-2.3) mg/dL Total Bilirubin (0.2-1.3) mg/dL AST (17-59) U/L ALT (4-49) U/L Alkaline Phosphatase (38-126) U/L Troponin I 0.014 (0.000-0.034) ng/mL C-Reactive Protein (<10.0) mg/L NT-Pro-B Natriuret Pep 720 pg/mL Total Protein (6.3-8.2) g/dL Albumin (3.5-5.0) g/dL Hepatitis A IgM Ab (Non-Reactive) Hep Bs Antigen (Non-Reactive) Hep B Core IgM Ab (Non-Reactive) Hep C IgG Ab (Non-Reactive) 08/18/20 08/18/20 Range/Units 18:09 18:42 WBC (3.8-10.6) k/uL RBC (4.30-5.90) m/uL Hgb (13.0-17.5) gm/dL Hct (39.0-53.0) % MCV (80.0-100.0) fL MCH (25.0-35.0) pg MCHC (31.0-37.0) g/dL RDW (11.5-15.5) % Plt Count (150-450) k/uL MPV Neutrophils % % Lymphocytes % % Monocytes % % Eosinophils % % Basophils % % Neutrophils # (1.3-7.7) k/uL Lymphocytes # (1.0-4.8) k/uL Monocytes # (0-1.0) k/uL Eosinophils # (0-0.7) k/uL Basophils # (0-0.2) k/uL PT (9.0-12.0) sec INR (<1.2) APTT (22.0-30.0) sec Sodium (137-145) mmol/L Potassium (3.5-5.1) mmol/L Chloride (98-107) mmol/L Carbon Dioxide (22-30) mmol/L Anion Gap mmol/L BUN (9-20) mg/dL Creatinine (0.66-1.25) mg/dL Est GFR (CKD-EPI)AfAm (>60 ml/min/1.73 sqM) Est GFR (CKD-EPI)NonAf (>60 ml/min/1.73 sqM) Glucose (74-99) mg/dL Lactic Ac Sepsis Rflx Y Plasma Lactic Acid Silvino (0.7-2.0) mmol/L Calcium (8.4-10.2) mg/dL Magnesium (1.6-2.3) mg/dL Total Bilirubin (0.2-1.3) mg/dL AST (17-59) U/L ALT (4-49) U/L Alkaline Phosphatase (38-126) U/L Troponin I (0.000-0.034) ng/mL C-Reactive Protein (<10.0) mg/L NT-Pro-B Natriuret Pep pg/mL Total Protein (6.3-8.2) g/dL Albumin (3.5-5.0) g/dL Hepatitis A IgM Ab Non-Reactive (Non-Reactive) Hep Bs Antigen Non-Reactive (Non-Reactive) Hep B Core IgM Ab Non-Reactive (Non-Reactive) Hep C IgG Ab Non-Reactive (Non-Reactive) Disposition <Rangel Hood - Last Filed: 08/18/20 18:48> Is patient prescribed a controlled substance at d/c from ED?: No Decision to Admit Reason: Admit from EC Decision Date: 08/18/20 Decision Time: 20:26 <Milady Ocasio - Last Filed: 08/19/20 22:42> Clinical Impression: COVID-19, Hypotension, Transaminitis, Lactic acidosis Disposition: ADMITTED IP TO THIS HOSP Condition: Stable
[2020-08-18 18:55] LABS: Glucose 160 mg/dL (74-99)
[2020-08-18 18:59] LABS: ALT 265 U/L (4-49); AST 206 U/L (17-59); African American GFR (CKD) >90 (>60 ml/min/1.73 sqM); Albumin 3.6 g/dL (3.5-5.0); Alkaline Phosphatase 227 U/L (38-126); Anion Gap 8 mmol/L; Blood Urea Nitrogen 23 mg/dL (9-20); C Reactive Protein 22.1 mg/L (<10.0); Calcium 8.6 mg/dL (8.4-10.2); Carbon Dioxide 31 mmol/L (22-30); Chloride 98 mmol/L (98-107); Magnesium 1.7 mg/dL (1.6-2.3); Non-African American GFR(CKD) 88 (>60 ml/min/1.73 sqM); Potassium 4.6 mmol/L (3.5-5.1); Sodium 137 mmol/L (137-145); Total Bilirubin 0.6 mg/dL (0.2-1.3); Total Protein 7.6 g/dL (6.3-8.2)
--- NOTE | 2020-08-18 20:44 | US ---
EXAMINATION TYPE: US gallbladder DATE OF EXAM: 08/18/2020 COMPARISON: CT, US CLINICAL HISTORY: Transaminitis. Transaminitis. Hx cirrhosis, cholelithiasis. EXAM MEASUREMENTS: Liver Length: 16.6 cm Gallbladder Wall: 0.26 cm CBD: Not seen with certainty, measured at 0.2 cm Right Kidney: 11.6 x 4.7 x 5.2 cm Limited due to gas and patient body habitus. Pancreas: Limited visibility due to overlying gas. Liver: Appears to have an increased echogenicity and to be coarse. Gallbladder: Echogenic area seen within the gallbladder measuring 2.7 x 2.0 x 1.7 cm. Evidence for sonographic Loera's sign: Patient felt pain while scanning over the RUQ. CBD: Not seen with certainty. Right Kidney: Cortex appears slightly thin. IMPRESSION: There is large gallstone and echogenic bile. No dilated ducts. No discrete liver mass. There is proba frank fatty infiltration of the liver.
[2020-08-18] MEDS ORDERED: NALOXONE 0.4 MG/ML 1 ML VIAL IV PRN (20:53)
[2020-08-18] MEDS: SODIUM CHLORIDE 0.9% 1,000 ML IV SCH (22:07)
--- NOTE | 2020-08-19 15:11 | P.GSCN ---
History of Present Illness Consult date: 08/19/20 History of present illness: CHIEF COMPLAINT: Weakness and hypotension HISTORY OF PRESENT ILLNESS: This is a 70-year-old male with who presented to the hospital with increased weakness and hypotension. He was recently hospitalized in the beginning of August for Covid. Patient has a known past medical history of open heart surgery for aortic dissection in January. Also history of chronic atrial fibrillation anticoagulated with Eliquis, aortic valve surgery with biop rosthetic valve, coronary artery disease with CABG and prior cardiac stents, COPD, chronic hypoxic respiratory failure, CVA, hypertension, hyperlipidemia, prostate cancer status post prostatectomy, right lower extremity DVT, liver cirrhosis secondary to alcohol abuse and hepatitis C. Per nursing staff they reported that during patient's last surgery he did required to be placed on the vent and at that time he did have a PEG tube placed. Patient was found to have low blood pressures at home. He was given IV fluids in the ER. Blood pressure has improved. Patient was found have elevated liver enzymes and a abdominal ultrasound was completed. Results showed large gallstone and echogenic bile. No dilated ducts. No discrete liver mass. There is probable fatty infiltration of the liver. Surgery was consulted for gallstones. Patient does have some mumbled speech and is difficult to examine. Per nursing he is not complaining of any abdominal pain. He is eating. However, when asked as her stomach hurt he points to the PEG tube site. His PEG tube site is clean dry and intact. Brendan gerard is afebrile. PAST MEDICAL HISTORY: See list. PAST SURGICAL HISTORY: See list. MEDICATIONS: See list. ALLERGIES: See list. SOCIAL HISTORY: No illicit drug use. REVIEW OF SYSTEMS: CONSTITUTIONAL: Denies fever or chills. HEENT: Denies blurred vision, vision changes, or eye pain. Denies hemoptysis CARDIOVASCULAR: Denies chest pain or pressure. RESPIRATORY: No shortness of breath. GASTROINTESTINAL: See HPI for pertinent findings HEMATOLOGIC: Denies bleeding disorders. GENITOURINARY: Denies any blood in urine or increased urinary frequency. SKIN: Denies pruitis. Denies rash. PHYSICAL EXAM: VITAL SIGNS: Reviewed GENERAL: Well-developed in no acute distress. HEENT: No sclera icterus. Extraocular movements grossly intact. Moist buccal mucosa. Head is atraumatic, normocephalic. No nasal drainage. ABDOMEN: Soft. Nondistended. Diffuse tenderness. There is tenderness in the right upper quadrant. PEG tube site clean dry and intact NEUROLOGIC: Alert and oriented. Cranial nerves II through XII grossly intact. LABORATORY DATA: Lactic 3 down to 1.4 AST 206 ALT to 65 alk phos 227 troponin negative lipase 1:15 IMAGING: Abdominal ultrasound showed large gallstone and echogenic bile. No dilated ducts. No discrete liver mass. There is probable fatty infiltration of the liver. ASSESSMENT: 1. Cholelithiasis with ultrasound showing large gallstone and echogenic bile 2. Elevated LFTs 3. Significant cardiac history PLAN: -consult cardiology for cardiac risk assessment for surgery -Continue low-fat diet -Keep Eliquis on hold for now -Await further GI recommendations -Repeat CMP and lipase in a.m. Thank you for this consultation Physician Pretzel Twister note has been reviewed by physician. Signing provider agrees with the documented findings, assessment, and plan of care. Past Medical History Past Medical History: Atrial Fibrillation, Atrial Flutter, Coronary Artery Disease (CAD), Cancer, Chest Pain / Angina, Heart Failure, COPD, CVA/TIA, Deep Vein Thrombosis (DVT), Eye Disorder, GERD/Reflux, GI Bleed, Hearing Disorder / Deafness, Hyperlipidemia, Hypertension, Liver Disease, Memory Impairment, Pneumonia, Vascular Disorder Additional Past Medical History / Comment(s): Stable dissection of the descending aorta, chronic atrial fibrillation and is anticoagulated with warfarin, aortic valve replacement with a bioprosthetic valve, pulmonary hypertension, chronic hypoxic respiratory failure with home O2 at , previous pneumonia 2008 and 2014, prostate cancer with prostatectomy, DVT R lower leg x2, macular degeneration L eye, left arm fracture, chronic tinnitus in both ears, g astritis, lower GIm bleed, UTI, liver cirrhosis related to history of alcoholism, hepatitis C at age 14yrs., feeding tube, alcoholism Last Myocardial Infarction Date:: unsure History of Any Multi-Drug Resistant Organisms: None Reported Year Discovered:: None MDRO Source:: None Past Surgical History: Cardiac Valve Replacement, Coronary Bypass/CABG, Heart Catheterization, Heart Catheterization With Stent, Hernia Repair, Orthopedic Surgery, Prostate Surgery Additional Past Surgical History / Comment(s): Aortic valve replacement, prostatectomy, right inguinal hernia repair 2, bilateral knee arthroscopy, colonoscopy/polypectomy, EGD, right leg varicose vein stripping, removal of a blood clot from the right lower extremity, cervical surgery d/t injury in [place] and removal of shrapnel's from the right shoulder, feeding tube Past Anesthesia/Blood Transfusion Reactions: No Reported Reaction Date of Last Stent Placement:: 2016 Past Psychological History: No Psychological Hx Reported Additional Psychological History / Comment(s): grandson lives with the patient. History of chronic tobacco use active and alcohol use active, old drug use Smoking Status: Former smoker Past Alcohol Use History: None Reported Additional Past Alcohol Use History / Comment(s): Pt started smoking in 1966 and is a 1.5 ppd smoker. He states he drinks daily and last drank on 09/16/18. Past Drug Use History: None Reported - Past Family History Mother Family Medical History: Diabetes Mellitus Additional Family Medical History / Comment(s): Mother at age 74 from diabetic complications. Father Family Medical History: Congestive Heart Failure (CHF) Additional Family Medical History / Comment(s): Father at age 91 yrs. Medications and Allergies Home Medications Medication Instructions Recorded Confirmed Type Apixaban [Eliquis] 5 mg PO BID 08/04/20 08/19/20 History Levothyroxine Sodium [Euthyrox] 50 mcg PO DAILY 08/04/20 08/19/20 History Metoprolol Tartrate 25 mg PO TID 08/04/20 08/19/20 History QUEtiapine [SEROquel] 25 mg PO BID 08/04/20 08/19/20 History Torsemide [Demadex] 20 mg PO DAILY 08/04/20 08/19/20 History levETIRAcetam [levETIRAcetam Oral 500 mg PO BID 08/04/20 08/19/20 History Soln] Zinc Sulfate [Orazinc] 220 mg PO DAILY 30 Days #30 cap 08/06/20 08/18/20 Rx Ascorbic Acid [Vitamin C] 500 mg PO DAILY 08/18/20 08/19/20 History Atorvastatin Calcium [Lipitor] 40 mg PO HS 08/18/20 08/19/20 History Cholecalciferol [Vitamin D3 (25 1,000 unit PO DAILY 08/18/20 08/19/20 History Mcg = 1000 Iu)] Folic Acid 1 mg PO DAILY@1200 08/18/20 08/19/20 History Multivitamins, Thera [Multivitamin 1 tab PO DAILY@1200 08/18/20 08/19/20 History (formulary)] Pantoprazole [Protonix] 40 mg PO AC-BRKFST 08/18/20 08/19/20 History Potassium Chloride [Klor-Con 20 20 meq PO DAILY 08/18/20 08/19/20 History Packets] Thiamine [Vitamin B-1] 100 mg PO DAILY@1200 08/19/20 08/19/20 History Allergies Allergy/AdvReac Type Severity Reaction Status Date / Time No Known Allergies Allergy Verified 08/18/20 19:54 Surgical - Exam Vital Signs Temp Pulse Resp BP Pulse Ox 99.0 F 87 22 106/58 94 L 08/18/20 17:40 08/18/20 17:40 08/18/20 17:40 08/18/20 17:40 08/18/20 17:40 Results - Labs 08/18/20 18:09 08/18/20 18:09 Abnormal Lab Results - Last 24 Hours (Table) 08/18/20 08/18/20 08/18/20 Range/Units 18:09 18:09 18:09 RBC 4.14 L (4.30-5.90) m/uL Hgb 12.2 L (13.0-17.5) gm/dL Hct 37.6 L (39.0-53.0) % Plt Count 120 L (150-450) k/uL Carbon Dioxide 31 H (22-30) mmol/L BUN 23 H (9-20) mg/dL Glucose 160 H (74-99) mg/dL Plasma Lactic Acid Silvino 3.0 H* (0.7-2.0) mmol/L AST 206 H (17-59) U/L ALT 265 H (4-49) U/L Alkaline Phosphatase 227 H (38-126) U/L C-Reactive Protein 22.1 H (<10.0) mg/L Diabetes panel 08/18/20 Range/Units 18:09 Sodium 137 (137-145) mmol/L Potassium 4.6 (3.5-5.1) mmol/L Chloride 98 (98-107) mmol/L Carbon Dioxide 31 H (22-30) mmol/L BUN 23 H (9-20) mg/dL Creatinine 0.82 (0.66-1.25) mg/dL Glucose 160 H (74-99) mg/dL Calcium 8.6 (8.4-10.2) mg/dL AST 206 H (17-59) U/L ALT 265 H (4-49) U/L Alkaline Phosphatase 227 H (38-126) U/L Total Protein 7.6 (6.3-8.2) g/dL Albumin 3.6 (3.5-5.0) g/dL Calcium panel 08/18/20 Range/Units 18:09 Calcium 8.6 (8.4-10.2) mg/dL Albumin 3.6 (3.5-5.0) g/dL Pituitary panel 08/18/20 Range/Units 18:09 Sodium 137 (137-145) mmol/L Potassium 4.6 (3.5-5.1) mmol/L Chloride 98 (98-107) mmol/L Carbon Dioxide 31 H (22-30) mmol/L BUN 23 H (9-20) mg/dL Creatinine 0.82 (0.66-1.25) mg/dL Glucose 160 H (74-99) mg/dL Calcium 8.6 (8.4-10.2) mg/dL Adrenal panel 08/18/20 Range/Units 18:09 Sodium 137 (137-145) mmol/L Potassium 4.6 (3.5-5.1) mmol/L Chloride 98 (98-107) mmol/L Carbon Dioxide 31 H (22-30) mmol/L BUN 23 H (9-20) mg/dL Creatinine 0.82 (0.66-1.25) mg/dL Glucose 160 H (74-99) mg/dL Calcium 8.6 (8.4-10.2) mg/dL Total Bilirubin 0.6 (0.2-1.3) mg/dL AST 206 H (17-59) U/L ALT 265 H (4-49) U/L Alkaline Phosphatase 227 H (38-126) U/L Total Protein 7.6 (6.3-8.2) g/dL Albumin 3.6 (3.5-5.0) g/dL
[2020-08-19 16:51] LABS: Hepatitis A Antibody IgM Non-Reactive (Non-Reactive); Hepatitis B Core IgM Non-Reactive (Non-Reactive); Hepatitis B Surface Antigen Non-Reactive (Non-Reactive); Hepatitis C IgG Antibody Non-Reactive (Non-Reactive)
--- NOTE | 2020-08-19 16:55 | CONS ---
CONSULTATION DATE OF DICTATION: 08/19/2020 REASON FOR CONSULTATION: Epigastric pain and elevated LFTs. HISTORY OF PRESENT ILLNESS: The patient is a 70-year-old pleasant white male with history of recent COVID-19 infection at the beginning of August, for which he was hospitalized and discharged home. He is also status post CABG in January of last year. He was brought into the emergency room because of abdominal pain mostly in the epigastric area associated with weakness and was also found to be hypotensive at home. He came into the emergency room, and on routine labs he was noted to have elevated LFTs and hence we are consulted because of this issue. The patient is a very poor historian. Most of the history was obtained from the patient's son. He denies any fever, chills or night sweats. He reports no nausea or vomiting. Denies any rectal bleeding or melena. In the emergency room he was noted to have elevated LFTs with an ALT and AST of 206 and 265, respectively, and alkaline phosphatase of 227. On further questioning, his son states that the patient has a history of heavy alcohol abuse for the last 40 years' duration and in the past was diagnosed with chronic liver disease. On review of his labs, he had elevated LFTs on multiple occasions, but they were slightly elevated. He did have an ultrasound of the gallbladder done in the emergency room that showed evidence of a large gallstone, with no dilated ducts, and fatty infiltration of the liver. PAST MEDICAL HISTORY: His past medical history is significant for coronary artery disease, status post CABG in January of this year, history of hypertension, hyperlipidemia, gastroesophageal reflux disease, atrial fibrillation and chronic liver disease secondary to alcohol use. PAST SURGICAL HISTORY: Atrial fibrillation, aortic valve replacement, prior history of prostatectomy, history of feeding tube placement in January of this year but not using it, and questionable history of chronic hepatitis C. FAMILY HISTORY: Mother with diabetes mellitus. Father with congestive heart failure. MEDICATIONS: Medications at home include Eliquis, Euthyrox, metoprolol, Seroquel, Demadex, vitamin C, Lipitor, vitamin D3, folic acid, multivitamin, Protonix, K-Fouzia, and levetiracetam. ALLERGIES: NONE. REVIEW OF SYSTEMS: CARDIOPULMONARY: He denies any chest pain. No shortness of breath. GENITOURINARY: No dysuria or hematuria. MUSCULOSKELETAL: Has some tremors. ENT/VISION: Unremarkable. CONSTITUTIONAL: No recent weight loss. NEUROLOGY: Mild dementia. GI: As mentioned above. PHYSICAL EXAMINATION: He appears comfortable. No apparent distress. Vital signs are stable. Blood pressure is 123/82, pulse rate 82, temperature 97.4. HEENT examination unremarkable. Conjunctivae pink. Sclerae anicteric. Oral cavity no lesions. NECK: No JVD or lymph node enlargement. CHEST: Clear to auscultation. HEART: Regular rate and rhythm. ABDOMEN: Soft. Bowel sounds are positive. There is mild tenderness in the epigastric area. Rest of the abdomen was benign. There was a PEG tube in place which appeared clean. EXTREMITIES: No pedal edema. NEUROLOGIC: Alert and oriented x3. No focal deficits. LABS/IMAGING: WBC 8.9, hemoglobin 12.2, platelets 120. AST and ALT are 206 and 265, respectively. Alkaline phosphatase 227. T-bilirubin is normal. Lipase is 115. Gallbladder ultrasound showed evidence of a large gallstone. No dilated ducts noted. No discrete liver mass seen. There was possible fatty infiltration of the liver. IMPRESSION: 1. This is a patient who presented to the hospital with some abdominal pain and noted to have elevated serum transaminases and history of heavy alcohol abuse for the last 40 years' duration. Questionable history of hepatitis C in the past, but patient cannot give us any further details. Ultrasound showed evidence of gallstones but no biliary ductal dilation. On review of his records, the patient was noted to have mild elevation of serum transaminases for many years, making it very likely that he has underlying chronic liver disease, possibly related to alcohol use. Possibility of CBD stone cannot be entirely excluded, given the clinical presentation. However, the ultrasound did not show any evidence of dilated CBD. 2. History of atrial fibrillation, on Eliquis, currently on hold. 3. Status post coronary artery bypass grafting in January of 2020, status post trach and PEG tube. The patient still has a PEG and as per the family members he has not been using the PEG tube for feeds for almost 2 months. 4. History of hypertension and hypercholesteremia. 5. History of gastroesophageal reflux disease. RECOMMENDATIONS: 1. Obtain viral serologies for A, B and C. 2. Repeat LFTs in the morning. 3. Agree with surgical consultation for gallstones. 4. Continue to hold Eliquis. 5. Start him on a clear liquid diet. 6. Based on his LFTs, will decide if he needs to have any endoscopic intervention. For now we will follow with you closely. Thank you for this consultation. ANETA / LUIS FELIPE: [id number] /
[2020-08-19] MEDS: SODIUM CHLORIDE 0.9% 1,000 ML IV SCH (19:08)
--- NOTE | 2020-08-20 | P.HPIM ---
History of Present Illness This is a pleasant 70 years old male with past medical history of chronic atrial fibrillation, aortic valve replacement surgery with a bioprosthetic valve and 01/2020, coronary artery disease status post CABG and stenting, COPD on home oxygen at 2 L/m, history of CVA with residual dysarthria, hypertension, hyperlipidemia history of dissecting descending aortic aneurysm surgical repair, prostate cancer status post prostatectomy, previous history of right lower leg DVT, alcoholic liver cirrhosis, history of hepatitis C, dysphagia with previous history of PEG tube placement. He was recently discharged from this hospital 08/05-08/06 for acute Covid pneumonia That was reported low blood pressure on admission but since he is in the emergency room his blood pressure was around 106/58, he is afebrile and rest of his vitals are stable. Labs showing unremarkable CBC except for mild anemia with hemoglobin 12.2. INR is normal 1.0. BMP is unremarkable, lactic acid was elevated at 3.0 came back to normal 1.4, AST is elevated to 206, and ALT 265. Bilirubin is normal 0.6. Lipase is normal EKG showing atrial fibrillation at [address]-T changes. Gallbladder ultrasound: Large gallstone and no dilated ducts. No liver mass. Chest x-ray showing cardiomegaly no heart failure Review of Systems CONSTITUTIONAL: No fever, no malaise, no fatigue. HEENT: No recent visual problems or hearing problems. Denied any sore throat. CARDIOVASCULAR: No orthopnea, PND, no palpitations, no syncope. PULMONARY: No shortness of breath, no cough, no hemoptysis. GASTROINTESTINAL: No diarrhea, no nausea, no vomiting. Normoactive bowel sounds. NEUROLOGICAL: No headaches, no weakness, no numbness. HEMATOLOGICAL: Denies any bleeding or petechiae. GENITOURINARY: Denies any burning micturition, frequency, or urgency. MUSCULOSKELETAL/RHEUMATOLOGICAL: Denies any joint pain, swelling, or any muscle pain. ENDOCRINE: Denies any polyuria or polydipsia. Past Medical History Past Medical History: Atrial Fibrillation, Atrial Flutter, Coronary Artery Di sease (CAD), Cancer, Chest Pain / Angina, Heart Failure, COPD, CVA/TIA, Deep Vein Thrombosis (DVT), Eye Disorder, GERD/Reflux, GI Bleed, Hearing Disorder / Deafness, Hyperlipidemia, Hypertension, Liver Disease, Memory Impairment, Pneumonia, Vascular Disorder Additional Past Medical History / Comment(s): Stable dissection of the descending aorta, chronic atrial fibrillation and is anticoagulated with warfarin, aortic valve replacement with a bioprosthetic valve, pulmonary hypertension, chronic hypoxic respiratory failure with home O2 at , previous pneumonia 2008 and 2014, prostate cancer with prostatectomy, DVT R lower leg x2, macular degeneration L eye, left arm fracture, chronic tinnitus in both ears, gastritis, lower GIm bleed, UTI, liver cirrhosis related to history of alcoholism, hepatitis C at age 14yrs., feeding tube, alcoholism Last Myocardial Infarction Date:: unsure History of Any Multi-Drug Resistant Organisms: None Reported Date of last positivie culture/infection: None MDRO Source:: None Past Surgical History: Cardiac Valve Replacement, Coronary Bypass/CABG, Heart Catheterization, Heart Catheterization With Stent, Hernia Repair, Orthopedic Surgery, Prostate Surgery Additional Past Surgical History / Comment(s): Aortic valve replacement, prostatectomy, right inguinal hernia repair 2, bilateral knee arthroscopy, colonoscopy/polypectomy, EGD, right leg varicose vein stripping, removal of a blood clot from the right lower extremity, cervical surgery d/t injury in [place] and removal of shrapnel's from the right shoulder, feeding tube Past Anesthesia/Blood Transfusion Reactions: No Reported Reaction Date of Last Stent Placement:: 2016 Past Psychological History: No Psychological Hx Reported Additional Psychological History / Comment(s): grandson lives with the patient. History of chronic tobacco use active and alcohol use active, old drug use Smoking Status: Former smoker Past Alcohol Use History: None Reported Additional Past Alcohol Use History / Comment(s): Pt started smoking in 1966 and is a 1.5 ppd smoker. He states he drinks daily and last drank on 09/16/18. Past Drug Use History: None Reported - Past Family History Mother Family Medical History: Diabetes Mellitus Additional Family Medical History / Comment(s): Mother at age 74 from diabetic complications. Father Family Medical History: Congestive Heart Failure (CHF) Additional Family Medical History / Comment(s): Father at age 91 yrs. Medications and Allergies Home Medications Medication Instructions Recorded Confirmed Type Apixaban [Eliquis] 5 mg PO BID 08/04/20 08/19/20 History Levothyroxine Sodium [Euthyrox] 50 mcg PO DAILY 08/04/20 08/19/20 History Metoprolol Tartrate 25 mg PO TID 08/04/20 08/19/20 History QUEtiapine [SEROquel] 25 mg PO BID 08/04/20 08/19/20 History Torsemide [Demadex] 20 mg PO DAILY 08/04/20 08/19/20 History levETIRAcetam [levETIRAcetam Oral 500 mg PO BID 08/04/20 08/19/20 History Soln] Zinc Sulfate [Orazinc] 220 mg PO DAILY 30 Days #30 cap 08/06/20 08/18/20 Rx Ascorbic Acid [Vitamin C] 500 mg PO DAILY 08/18/20 08/19/20 History Atorvastatin Calcium [Lipitor] 40 mg PO HS 08/18/20 08/19/20 History Cholecalciferol [Vitamin D3 (25 1,000 unit PO DAILY 08/18/20 08/19/20 History Mcg = 1000 Iu)] Folic Acid 1 mg PO DAILY@1200 08/18/20 08/19/20 History Multivitamins, Thera [Multivitamin 1 tab PO DAILY@1200 08/18/20 08/19/20 History (formulary)] Pantoprazole [Protonix] 40 mg PO AC-BRKFST 08/18/20 08/19/20 History Potassium Chloride [Klor-Con 20 20 meq PO DAILY 08/18/20 08/19/20 History Packets] Thiamine [Vitamin B-1] 100 mg PO DAILY@1200 08/19/20 08/19/20 History Allergies Allergy/AdvReac Type Severity Reaction Status Date / Time No Known Allergies Allergy Verified 08/18/20 19:54 Physical Exam Vitals: Vital Signs Temp Pulse Pulse Resp BP BP Pulse Ox 08/19/20 11:40 97.4 F L 82 18 123/82 99 08/19/20 04:34 98.4 F 70 18 111/54 96 08/19/20 02:05 98.1 F 87 20 108/87 99 08/18/20 23:21 98.1 F 87 22 108/67 99 08/18/20 22:08 86 20 103/71 96 08/18/20 18:40 93 18 103/66 98 08/18/20 17:40 99.0 F 87 22 106/58 94 L Intake and Output 08/18/20 08/19/20 08/19/20 22:59 06:59 14:59 Intake Total 350 Balance 350 Intake: Intake, IV Titration 350 Amount Sodium Chloride 0.9% 1, 350 000 ml @ 50 mls/hr IV . Q20H [facility] Rx#:[id number] Other: Voiding Method Urinal # Voids 2 Weight 83.915 kg 83.915 kg GENERAL: The patient is alert and oriented x3, not in any acute distress. Well developed, well nourished. HEENT: Pupils are round and equally reacting to light. EOMI. No scleral icterus. No conjunctival pallor. Normocephalic, atraumatic. No pharyngeal erythema. No thyromegaly. CARDIOVASCULAR: S1 and S2 present. No murmurs, rubs, or gallops. PULMONARY: Chest is clear to auscultation, no wheezing or crackles. -ABDOMEN: Soft, RUQ tenderness, nondistended, normoactive bowel sounds. No palpable organomegaly. MUSCULOSKELETAL: No joint swelling or deformity. EXTREMITIES: No cyanosis, clubbing, or pedal edema. NEUROLOGICAL: Gross neurological examination did not reveal any focal deficits. SKIN: No rashes. No petechiae Results CBC & Chem 7: 08/18/20 18:09 08/18/20 18:09 Labs: Abnormal Lab Results - Last 24 Hours (Table) 08/18/20 08/18/20 08/18/20 Range/Units 18:09 18:09 18:09 RBC 4.14 L (4.30-5.90) m/uL Hgb 12.2 L (13.0-17.5) gm/dL Hct 37.6 L (39.0-53.0) % Plt Count 120 L (150-450) k/uL Carbon Dioxide 31 H (22-30) mmol/L BUN 23 H (9-20) mg/dL Glucose 160 H (74-99) mg/dL Plasma Lactic Acid Silvino 3.0 H* (0.7-2.0) mmol/L AST 206 H (17-59) U/L ALT 265 H (4-49) U/L Alkaline Phosphatase 227 H (38-126) U/L C-Reactive Protein 22.1 H (<10.0) mg/L Thrombosis Risk Factor Assmnt - Choose All That Apply Each Risk Factor Represents 2 Points: Age 61-74 years Each Risk Factor Represents 3 Points: History of DVT/PE Thrombosis Risk Factor Assessment Total Risk Factor Score: 5 Thrombosis Risk Factor Assessment Level: High Risk Assessment and Plan Assessment: elevated liver enzymes associated with Gallstone Chronic atrial fibrillation on Eliquis Recent diagnosis with Covid infection on 08/05 History of recent aortic dissection repair History of dysphagia with PEG tube placement History of aortic valve replacement surgery with a bioprosthetic valve on 01/2020 History of coronary artery disease status post CABG and stenting History of stroke with residual dysarthria History of COPD on home oxygen 2 L/m Hypertension Hyperlipidemia History of dissecting descending aortic aneurysm surgical repair History of prostate cancer status post prostatectomy History of right lower leg DVT Alcoholic liver disease Chronic hepatitis C Plan: This is a pleasant 70 years old male who presents with gallstone and possible gallbladder disease, GI and surgery team were consulted on follow their recommendation No need for antibiotic as patient is afebrile, no leukocytosis and there is no strong evidence of infection Labs and medication were reviewed.. Continue same treatment. Continue with symptomatic treatment. Resume home medication. Monitor lytes and vitals. DVT and GI prophylaxis. Further recommendations depends on the clinical course of the patient DVT prophylaxis: Subcutaneous heparin GI Prophylaxis: Pepcid PT/OT: Pending Prognosis is guarded
[2020-08-20] MEDS: LEVOTHYROXINE 50 MCG TAB PO SCH ×2 (05:51→05:52)
[2020-08-20] MEDS: levETIRAcetam ORAL SOLN 500 MG/5 ML CUP PO SCH ×3 (06:19→21:15)
[2020-08-20] MEDS ORDERED: LIDOCAINE 1% (10MG/ML) FOR IV START INTRADERMA PRN (06:27)
[2020-08-20 06:48] LABS: HGB 11.4 gm/dL (13.0-17.5); Hypochromasia Slight; MCH 29.6 pg (25.0-35.0); MCHC 31.7 g/dL (31.0-37.0); MCV 93.6 fL (80.0-100.0); Mean Platelet Volume 7.7; Platelet Count 102 k/uL (150-450); RBC 3.85 m/uL (4.30-5.90); RDW 14.4 % (11.5-15.5); WBC 8.6 k/uL (3.8-10.6)
[2020-08-20] MEDS: NON FORMULARY DRUG (Cholecalciferol 1,000 UNIT Tab) PO SCH (08:22)
[2020-08-20] MEDS: QUEtiapine 25 MG TAB PO SCH ×2 (08:27→21:15)
[2020-08-20] MEDS: ASCORBIC ACID 500 MG TAB PO SCH (08:27)
[2020-08-20] MEDS: TORSEMIDE 20 MG TAB PO SCH (08:27)
[2020-08-20] MEDS: HEPARIN SODIUM,PORCINE 5,000 UNIT/ML 1 ML VIAL SQ SCH ×2 (08:27→15:09)
[2020-08-20] MEDS: ZINC SULFATE 220 MG CAP PO SCH (08:28)
[2020-08-20] MEDS: LACTATED RINGERS 1,000 ML IV SCH (08:28)
--- NOTE | 2020-08-20 10:16 | P.CRDCN ---
History of Present Illness History of present illness: HISTORY OF PRESENTING ILLNESS This is a pleasant 70-year-old male past medical history significant for coronary artery disease status post PCI of the proximal LAD in 2017, hypertension, dyslipidemia, valvular heart disease status post aortic valve replacement, chronic persistent atrial fibrillation, COPD and chronic nicotine dependence. He also recently had a prolonged hospitalization sometime over the summer of which he required PEG and trach placement. According to nursing staff he had an aortic dissection that was repaired. Exact details aren't available. He follows in the office with Dr. Sanabria. We have been asked to see in consultation for preoperative evaluation. He presented to the hospital with symptoms of increased weakness and hypotension at home. Laboratory data revealed acute transaminitis prompting an ultrasound of his gallbladder that revealed gallstones with no common bile duct dilatation. GI and surgery was consulted. He is seen and examined sitting up in bed in no acute distress. He continues to complain of abdominal discomfort. He is a poor historian and unable to give much past medical history. He denies chest pain, dizziness or shortness of breath actively at this time. He saw Dr. Dr. Sanabria in the office recently and underwent a Lexiscan stress test that was negative for reversible cardiac ischemia. An echocardiogram obtained at that time revealed preserved LV systolic function with ejection fraction 55%, mildly dilated right ventricle, severely dilated left atrium, moderately dilated right atrium, biologic aortic valve prosthesis with moderate prosthetic valvular regurgitation, moderate mitral regurgitation, moderate tricuspid regurgitation and severe pulmonary hypertension with an RVSP of 74 mmHg. DIAGNOSTICS EKG reveals atrial fibrillation heart rate of 93. Telemetry tracings indicate atrial fibrillation with primarily controlled ventricular rates. Chest xray evidence of cardiac valve surgery with no acute heart failure aorta is erythematous. Laboratory reviewed, WBC 8.6, hemoglobin 11.4, platelets 102, sodium 137, potassium 4.6, creatinine 0.82, lactic acid on admission 3. 0 repeat after hydration 1.4, magnesium 1.7, liver enzymes elevated, troponin negative 1 and proBNP 720. Current cardiac medications include Eliquis 5 mg twice a day, atorvastatin 40 mg daily, metoprolol 25 mg 3 times a day and torsemide 20 mg daily. REVIEW OF SYSTEMS At the time of my exam: CONSTITUTIONAL: Denies fever or chills. CARDIOVASCULAR: Denies chest pain, shortness of breath, orthopnea, PND or pal pitations. RESPIRATORY: Denies cough. GASTROINTESTINAL: Complains of abdominal pain. Denies diarrhea, constipation, nausea or vomiting. MUSCULOSKELETAL: Denies myalgias. NEUROLOGIC: Denies numbness, tingling, headacbe or weakness. ENDOCRINE: Denies fatigue, weight change, polydipsia or polyurina. GENITOURINARY: Denies burning, hematuria or urgency with micturation. HEMATOLOGIC: Denies history of anemia or bleeding. PHYSICAL EXAMINATION Blood pressure 114/69 heart rate 90 afebrile and maintaining oxygen saturation on nasal cannula. CONSTITUTIONAL: No apparent distress. HEENT: Head is normocephalic. Pupils are equal, round. Sclerae anicteric. Mucous membranes of the mouth are moist. No JVD. No carotid bruit. CHEST EXAMINATION: Coarse crackles, no rhonchi or wheezes. No chest wall ten derness is noted on palpation or with deep breathing. HEART EXAMINATION: Irregular rate and rhythm. S1, S2 heard. Systolic ejection murmur at the base and apex, no gallops or rub. ABDOMEN: Soft, tender in the upper portion on palpation. PEG tube in place to left upper quadrant. Positive bowel sounds. EXTREMITIES: 2+ peripheral pulses, trace lower extremity edema on the right with no swelling on the left and no calf tenderness. NEUROLOGIC EXAMINATION: Patient is awake, alert and oriented x3. ASSESSMENT Cholelithiasis Coronary artery disease s/p PCI to proximal LAD 2016 Chronic persistent atrial fibrillation on eliquis Transaminitis Lactic acidosis Valvular heart disease s/p bioprostheic aortic valve replacement Hypertension Dyslipidemia COPD Chronic nicotine dependence PLAN Obtain records from recent surgery in December or January 2020 for review and clarification. Clinically he is euvolemic with no evidence to suggest overt heart failure. He is having no symptoms of chest pain to suggest angina. Recent stress test and echocardiogram from the office reviewed. Overall, he is stable to proceed with surgery from a cardiac perspective. He is high risk given his co-morbid conditions, although there are no absolute contraindications currently. Recommend cautious fluid administration and optimal blood pressure and heart rate control. Eliquis is currently on hold for expected surgical intervention. Resume post-operatively as soon as stable from a surgical perspective. Thank you kindly for this consultation. Nurse Practitioner note has been reviewed, I agree with a documented findings and plan of care. Patient was seen and examined. Past Medical History Past Medical History: Atrial Fibrillation, Atrial Flutter, Coronary Artery Disease (CAD), Cancer, Chest Pain / Angina, Heart Failure, COPD, CVA/TIA, Deep Vein Thrombosis (DVT), Eye Disorder, GERD/Reflux, GI Bleed, Hearing Disorder / Deafness, Hyperlipidemia, Hypertension, Liver Disease, Memory Impairment, Pneumonia, Vascular Disorder Additional Past Medical History / Comment(s): Stable dissection of the descending aorta, chronic atrial fibrillation and is anticoagulated with warfarin, aortic valve replacement with a bioprosthetic valve, pulmonary hyp ertension, chronic hypoxic respiratory failure with home O2 at , previous pneumonia 2008 and 2014, prostate cancer with prostatectomy, DVT R lower leg x2, macular degeneration L eye, left arm fracture, chronic tinnitus in both ears, gastritis, lower GIm bleed, UTI, liver cirrhosis related to history of alcoholism, hepatitis C at age 14yrs., feeding tube, alcoholism Last Myocardial Infarction Date:: unsure History of Any Multi-Drug Resistant Organisms: None Reported Date of last positivie culture/infection: None MDRO Source:: None Past Surgical History: Cardiac Valve Replacement, Coronary Bypass/CABG, Heart Catheterization, Heart Catheterization With Stent, Hernia Repair, Orthopedic Surgery, Prostate Surgery Additional Past Surgical History / Comment(s): Aortic valve replacement, prostatectomy, right inguinal hernia repair 2, bilateral knee arthroscopy, colonoscopy/polypectomy, EGD, right leg varicose vein stripping, removal of a blood clot from the right lower extremity, cervical surgery d/t injury in [place] and removal of shrapnel's from the right shoulder, feeding tube Past Anesthesia/Blood Transfusion Reactions: No Reported Reaction Date of Last Stent Placement:: 2016 Past Psychological History: No Psychological Hx Reported Additional Psychological History / Comment(s): grandson lives with the patient. History of chronic tobacco use active and alcohol use active, old drug use Smoking Status: Former smoker Past Alcohol Use History: None Reported Additional Past Alcohol Use History / Comment(s): Pt started smoking in 1966 and is a 1.5 ppd smoker. He states he drinks daily and last drank on 09/16/18. Past Drug Use History: None Reported - Past Family History Mother Family Medical History: Diabetes Mellitus Additional Family Medical History / Comment(s): Mother at age 74 from diabetic complications. Father Family Medical History: Congestive Heart Failure (CHF) Additional Family Medical History / Comment(s): Father at age 91 yrs. Medications and Allergies Home Medications Medication Instructions Recorded Confirmed Type Apixaban [Eliquis] 5 mg PO BID 08/04/20 08/19/20 History Levothyroxine Sodium [Euthyrox] 50 mcg PO DAILY 08/04/20 08/19/20 History Metoprolol Tartrate 25 mg PO TID 08/04/20 08/19/20 History QUEtiapine [SEROquel] 25 mg PO BID 08/04/20 08/19/20 History Torsemide [Demadex] 20 mg PO DAILY 08/04/20 08/19/20 History levETIRAcetam [levETIRAcetam Oral 500 mg PO BID 08/04/20 08/19/20 History Soln] Zinc Sulfate [Orazinc] 220 mg PO DAILY 30 Days #30 cap 08/06/20 08/18/20 Rx Ascorbic Acid [Vitamin C] 500 mg PO DAILY 08/18/20 08/19/20 History Atorvastatin Calcium [Lipitor] 40 mg PO HS 08/18/20 08/19/20 History Cholecalciferol [Vitamin D3 (25 1,000 unit PO DAILY 08/18/20 08/19/20 History Mcg = 1000 Iu)] Folic Acid 1 mg PO DAILY@1200 08/18/20 08/19/20 History Multivitamins, Thera [Multivitamin 1 tab PO DAILY@1200 08/18/20 08/19/20 History (formulary)] Pantoprazole [Protonix] 40 mg PO AC-BRKFST 08/18/20 08/19/20 History Potassium Chloride [Klor-Con 20 20 meq PO DAILY 08/18/20 08/19/20 History Packets] Thiamine [Vitamin B-1] 100 mg PO DAILY@1200 08/19/20 08/19/20 History Allergies Allergy/AdvReac Type Severity Reaction Status Date / Time No Known Allergies Allergy Verified 08/18/20 19:54 Physical Exam Vitals: Vital Signs Temp Pulse Resp BP Pulse Ox 08/20/20 05:30 98.7 F 90 17 114/69 96 08/20/20 03:10 98.5 F 88 18 116/68 95 08/19/20 20:10 74 16 08/19/20 16:31 99.1 F 74 16 106/66 94 L 08/19/20 11:40 97.4 F L 82 18 123/82 99 Intake and Output 08/19/20 08/20/20 08/20/20 22:59 06:59 14:59 Intake Total 500 Balance 500 Intake: Intake, IV Titration 300 Amount Sodium Chloride 0.9% 1, 300 000 ml @ 50 mls/hr IV . Q20H [facility] Rx#:[id number] Oral 200 Other: Voiding Method Urinal # Voids 1 4 Results 08/20/20 06:23 08/18/20 18:09 CBC 08/20/20 Range/Units 06:23 WBC 8.6 (3.8-10.6) k/uL RBC 3.85 L (4.30-5.90) m/uL Hgb 11.4 L (13.0-17.5) gm/dL Hct 36.0 L (39.0-53.0) % Plt Count 102 L (150-450) k/uL Current Medications Generic Name Dose Route Start Last Admin Trade Name Freq PRN Reason Stop Dose Admin Ascorbic Acid 500 mg 08/20/20 09:00 08/20/20 08:27 Ascorbic Acid 500 Mg Tab PO 500 mg DAILY JAYLA Administration Atorvastatin Calcium 40 mg 08/20/20 21:00 Atorvastatin 40 Mg Tab PO HS JAYLA Heparin Sodium (Porcine) 5,000 unit 08/20/20 08:00 08/20/20 08:27 Heparin Sodium,Porcine 5,000 Unit/Ml 1 Ml Vial SQ 5,000 unit Q8HR JAYLA Administration Sodium Chloride 1,000 mls @ 50 mls/hr 08/18/20 21:00 08/19/20 19:08 Saline 0.9% IV Not Given .Q20H [facility] Lactated Ringer's 1,000 mls @ 20 mls/hr 08/20/20 06:30 08/20/20 08:28 Lactated Ringers IV 20 mls/hr .Q24H [facility]LA Administration Levetiracetam 500 mg 08/20/20 00:30 08/20/20 08:27 Levetiracetam Oral Soln 500 Mg/5 Ml Cup PO 500 mg BID JAYLA Administration Levothyroxine Sodium 50 mcg 08/20/20 06:30 08/20/20 05:52 Levothyroxine 50 Mcg Tab PO 50 mcg DAILY@0630 JAYLA Administration Lidocaine HCl 0.1 ml 08/20/20 06:27 Lidocaine 1% (10mg/Ml) For Iv Start INTRADERMA PER PROTOCOL PRN IV Start Naloxone HCl 0.2 mg 08/18/20 20:53 Naloxone 0.4 Mg/Ml 1 Ml Vial IV Q2M PRN Opioid Reversal Non-Formulary Medication 1,000 unit 08/20/20 09:00 08/20/20 08:22 Cholecalciferol PO Not Given DAILY J[facility]LA Quetiapine Fumarate 25 mg 08/20/20 09:00 08/20/20 08:27 Quetiapine 25 Mg Tab PO 25 mg BID J[facility] Administration Torsemide 20 mg 08/20/20 09:00 08/20/20 08:27 Torsemide 20 Mg Tab PO 20 mg DAILY JAYLA Administration Zinc Sulfate 220 mg 08/20/20 09:00 08/20/20 08:28 Zinc Sulfate 220 Mg Cap PO 220 mg DAILY JAYLA Administration Intake and Output 08/19/20 08/20/20 08/20/20 22:59 06:59 14:59 Intake Total 500 Balance 500 Intake: Intake, IV Titration 300 Amount Sodium Chloride 0.9% 1, 300 000 ml @ 50 mls/hr IV . Q20H [facility] Rx#:[id number] Oral 200 Other: Voiding Method Urinal # Voids 1 4 08/20/20 06:23 08/18/20 18:09
[2020-08-20 10:47] LABS: African American GFR (CKD) 103.4 (60.0-200.0); Albumin 3.3 g/dL (3.80-4.90); Albumin/Globulin Ratio 1.1 (1.60-3.17); BUN/Creat Ratio 22.5 Ratio (12.00-20.00); Calcium 8.5 mg/dL (8.7-10.3); Non-African American GFR(CKD) 89.2 (60.0-200.0); Potassium 4.2 mmol/L (3.5-5.5); Total Bilirubin 0.9 mg/dL (0.2-1.2); Total Protein 6.3 g/dL (6.2-8.2)
[2020-08-20] MEDS: METOPROLOL TARTRATE 25 MG TAB PO SCH ×3 (11:26→21:15)
--- NOTE | 2020-08-20 13:05 | P.PN ---
Subjective This is a pleasant 70 years old male with past medical history of chronic atrial fibrillation, aortic valve replacement surgery with a bioprosthetic valve and 01/2020, coronary artery disease status post CABG and stenting, COPD on home oxygen at 2 L/m, history of CVA with residual dysarthria, hypertension, hyperlipidemia history of dissecting descending aortic aneurysm surgical repair, prostate cancer status post prostatectomy, previous history of right lower leg DVT, alcoholic liver cirrhosis, history of hepatitis C, dysphagia with previous history of PEG tube placement. He was recently discharged from this hospital 08/05-08/06 for acute Covid pneumonia That was reported low blood pressure on admission but since he is in the emergency room his blood pressure was around 106/58, he is afebrile and rest of his vitals are stable. Labs showing unremarkable CBC except for mild anemia with hemoglobin 12.2. INR is normal 1.0. BMP is unremarkable, lactic acid was elevated at 3.0 came back to normal 1.4, AST is elevated to 206, and ALT 265. Bilirubin is normal 0.6. Lipase is normal EKG showing atrial fibrillation at [address]-T changes. Gallbladder ultrasound: Large gallstone and no dilated ducts. No liver mass. Chest x-ray showing cardiomegaly no heart failure 08/20/2020 Patient looks confused with looks like his baseline, he still complains from RUQ pain and tenderness, PEG tube is in place Patient was nothing by mouth in the morning, Eliquis is on hold. Metoprolol is on hold due to hypotension on admission Surgery team on the case for the cholelithiasis with a large gallstone and echogenic bile and they are asking for cardiac preop evaluation, patient was found by cardiology team and is high-risk but there is no contraindication. He is currently on normal sinus 50 mL/h Review of Systems CONSTITUTIONAL: No fever, no malaise, no fatigue. HEENT: No recent visual problems or hearing problems. Denied any sore throat. CARDIOVASCULAR: No orthopnea, PND, no palpitations, no syncope. PULMONARY: No shortness of breath, no cough, no hemoptysis. GASTROINTESTINAL: No diarrhea, no nausea, no vomiting Active Medications Generic Name Dose Route Start Last Admin Trade Name Freq PRN Reason Stop Dose Admin Ascorbic Acid 500 mg 08/20/20 09:00 08/20/20 08:27 Ascorbic Acid 500 Mg Tab PO 500 mg DAILY [facility]LA Administration Atorvastatin Calcium 40 mg 08/20/20 21:00 Atorvastatin 40 Mg Tab PO HS [facility] Heparin Sodium (Porcine) 5,000 unit 08/20/20 08:00 08/20/20 08:27 Heparin Sodium,Porcine 5,000 Unit/Ml 1 Ml Vial SQ 5,000 unit Q8HR [facility] Administration Sodium Chloride 1,000 mls @ 50 mls/hr 08/18/20 21:00 08/19/20 19:08 Saline 0.9% IV Not Given .Q20H [facility] Lactated Ringer's 1,000 mls @ 20 mls/hr 08/20/20 06:30 08/20/20 08:28 Lactated Ringers IV 20 mls/hr .Q24H [facility] Administration Levetiracetam 500 mg 08/20/20 00:30 08/20/20 08:27 Levetiracetam Oral Soln 500 Mg/5 Ml Cup PO 500 mg BID J[facility]LA Administration Levothyroxine Sodium 50 mcg 08/20/20 06:30 08/20/20 05:52 Levothyroxine 50 Mcg Tab PO 50 mcg DAILY@0630 [facility] Administration Lidocaine HCl 0.1 ml 08/20/20 06:27 Lidocaine 1% (10mg/Ml) For Iv Start INTRADERMA PER PROTOCOL PRN IV Start Metoprolol Tartrate 25 mg 08/20/20 10:15 08/20/20 11:26 Metoprolol Tartrate 25 Mg Tab PO Not Given TID [facility] Naloxone HCl 0.2 mg 08/18/20 20:53 Naloxone 0.4 Mg/Ml 1 Ml Vial IV Q2M PRN Opioid Reversal Non-Formulary Medication 1,000 unit 08/20/20 09:00 08/20/20 08:22 Cholecalciferol PO Not Given DAILY [facility] Quetiapine Fumarate 25 mg 08/20/20 09:00 08/20/20 08:27 Quetiapine 25 Mg Tab PO 25 mg BID [facility] Administration Torsemide 20 mg 08/20/20 09:00 08/20/20 08:27 Torsemide 20 Mg Tab PO 20 mg DAILY [facility] Administration Zinc Sulfate 220 mg 08/20/20 09:00 08/20/20 08:28 Zinc Sulfate 220 Mg Cap PO 220 mg DAILY [facility]LA Administration Objective - Vital Signs Vital signs: Vital Signs Temp 98.3 F 08/20/20 09:15 Pulse 76 08/20/20 09:15 Resp 17 08/20/20 09:15 BP 89/54 08/20/20 09:15 Pulse Ox 92 L 08/20/20 09:15 Intake & Output 08/19/20 08/20/20 08/20/20 18:59 06:59 18:59 Intake Total 500 Balance 500 Intake: Intake, IV Titration 300 Amount Sodium Chloride 0.9% 1, 300 000 ml @ 50 mls/hr IV . Q20H [facility] Rx#:[id number] Oral 200 Other: Voiding Method Urinal Urinal # Voids 3 4 - Exam GENERAL: The patient is alert and oriented x3, not in any acute distress. Well developed, well nourished. HEENT: Pupils are round and equally reacting to light. EOMI. No scleral icterus. No conjunctival pallor. Normocephalic, atraumatic. No pharyngeal erythema. No thyromegaly. CARDIOVASCULAR: S1 and S2 present. No murmurs, rubs, or gallops. PULMONARY: Chest is clear to auscultation, no wheezing or crackles. -ABDOMEN: Soft, RUQ tenderness, nondistended, normoactive bowel sounds. No palpable organomegaly. MUSCULOSKELETAL: No joint swelling or deformity. EXTREMITIES: No cyanosis, clubbing, or pedal edema. NEUROLOGICAL: Gross neurological examination did not reveal any focal deficits. SKIN: No rashes. No petechiae - Labs CBC & Chem 7: 08/20/20 06:23 08/20/20 06:23 Labs: Abnormal Lab Results - Last 24 Hours (Table) 08/20/20 08/20/20 Range/Units 06:23 06:23 RBC 3.85 L (4.30-5.90) m/uL Hgb 11.4 L (13.0-17.5) gm/dL Hct 36.0 L (39.0-53.0) % Plt Count 102 L (150-450) k/uL BUN/Creatinine Ratio 22.50 H (12.00-20.00) Ratio Calcium 8.5 L (8.7-10.3) mg/dL AST 61 H (14-35) U/L ALT 131 H (10-49) U/L Alkaline Phosphatase 194 H (41-126) U/L Albumin 3.30 L (3.80-4.90) g/dL Albumin/Globulin Ratio 1.10 L (1.60-3.17) g/dL Assessment and Plan Assessment: elevated liver enzymes associated with Gallstone Chronic atrial fibrillation on Eliquis Recent diagnosis with Covid infection on 08/05 History of recent aortic dissection repair History of dysphagia with PEG tube placement History of aortic valve replacement surgery with a bioprosthetic valve on 01/2020 History of coronary artery disease status post CABG and stenting History of stroke with residual dysarthria History of COPD on home oxygen 2 L/m Hypertension Hyperlipidemia History of dissecting descending aortic aneurysm surgical repair History of prostate cancer status post prostatectomy History of right lower leg DVT Alcoholic liver disease Chronic hepatitis C Plan: This is a pleasant 70 years old male who presents with gallstone and possible gallbladder disease, GI and surgery team were consulted on follow their recommendation. Surgery is considered by surgical team, preop cardiology evaluation is completed. No need for antibiotic as patient is afebrile, no leukocytosis and there is no strong evidence of infection Labs and medication were reviewed.. Continue same treatment. Continue with symptomatic treatment. Resume home medication. Monitor lytes and vitals. DVT and GI prophylaxis. Further recommendations depends on the clinical course of the patient DVT prophylaxis: Subcutaneous heparin GI Prophylaxis: Pepcid PT/OT: Pending Prognosis is guarded
--- NOTE | 2020-08-20 13:28 | P.PN ---
Subjective Progress Note Date: 08/20/20 CHIEF COMPLAINT: Weakness and hypotension HISTORY OF PRESENT ILLNESS: Patient is being followed in regards to cholelithiasis and elevated LFTs. Patient does have a known history of alcoholism and history of chronic liver disease. Patient seen evaluated by cardiology. They reported that he is high risk but stable for surgery. Patient does have right upper quadrant abdominal pain. Afebrile. WBC 8.6 hemoglobin 11.4 platelets 102 creatinine 0.8 AST down from 206-61 ALT down from 265-131 alk phos 227 down to 194 and total bili is 0.9 lipase 48 PHYSICAL EXAM: VITAL SIGNS: Reviewed. GENERAL: Well-developed in no acute distress. HEENT: No sclera icterus. Extraocular movements grossly intact. Moist buccal mucosa. Head is atraumatic, normocephalic. ABDOMEN: Soft. Nondistended. Tenderness with palpation of right upper quadrant NEUROLOGIC: Alert and oriented. Cranial nerves II through XII grossly intact. ASSESSMENT: 1. Acute cholecystitis 2. Elevated LFTs 3. Significant cardiac history PLAN: -Patient scheduled for laparoscopic cholecystectomy today with Dr. Mckeon Physician Cadd Manager note has been reviewed by physician. Signing provider agrees with the documented findings, assessment, and plan of care. Objective - Vital Signs Vital signs: Vital Signs Temp 98.3 F 08/20/20 09:15 Pulse 76 08/20/20 09:15 Resp 17 08/20/20 09:15 BP 89/54 08/20/20 09:15 Pulse Ox 92 L 08/20/20 09:15 Intake & Output 08/19/20 08/20/20 08/20/20 18:59 06:59 18:59 Intake Total 500 Balance 500 Intake: Intake, IV Titration 300 Amount Sodium Chloride 0.9% 1, 300 000 ml @ 50 mls/hr IV . Q20H [facility] Rx#:[id number] Oral 200 Other: Voiding Method Urinal Urinal # Voids 3 4 - Labs CBC & Chem 7: 08/20/20 06:23 08/20/20 06:23 Labs: Abnormal Lab Results - Last 24 Hours (Table) 08/20/20 08/20/20 Range/Units 06:23 06:23 RBC 3.85 L (4.30-5.90) m/uL Hgb 11.4 L (13.0-17.5) gm/dL Hct 36.0 L (39.0-53.0) % Plt Count 102 L (150-450) k/uL BUN/Creatinine Ratio 22.50 H (12.00-20.00) Ratio Calcium 8.5 L (8.7-10.3) mg/dL AST 61 H (14-35) U/L ALT 131 H (10-49) U/L Alkaline Phosphatase 194 H (41-126) U/L Albumin 3.30 L (3.80-4.90) g/dL Albumin/Globulin Ratio 1.10 L (1.60-3.17) g/dL
[2020-08-20] MEDS: SODIUM CHLORIDE 0.9% 1,000 ML IV SCH (14:16)
[2020-08-20] MEDS ORDERED: ROCURONIUM 10 MG/ML (10 ML VIAL) IV ONE (14:18)
[2020-08-20] MEDS ORDERED: KETOROLAC 15 MG/ML 1 ML VIAL ONE (14:18)
[2020-08-20] MEDS ORDERED: SUCCINYLCHOLINE CHLORIDE 100 MG/5 ML SYR IV ONE (14:18)
[2020-08-20] MEDS ORDERED: MIDAZOLAM 2 MG/2 ML VIAL ONE (14:18)
[2020-08-20] MEDS ORDERED: PROPOFOL 10 MG/ML 20 ML VIAL IV ONE (14:18)
[2020-08-20] MEDS ORDERED: GLYCOPYRROLATE 0.2 MG/ML 2 ML VIAL ONE (14:18)
[2020-08-20] MEDS ORDERED: fentaNYL (PF) 50 MCG/ML 2 ML AMP ONE (14:18)
[2020-08-20] MEDS ORDERED: NEOSTIGMINE 1 MG/ML 10 ML VIAL ONE (14:18)
[2020-08-20] MEDS ORDERED: ceFAZolin 1,000 MG VIAL ONE (14:18)
[2020-08-20] MEDS ORDERED: LIDOCAINE 1% INJ 10MG/ML (20 ML MDV) ONE (14:18)
[2020-08-20] MEDS ORDERED: SODIUM CHLORIDE 0.9% 50 ML with ceFAZolin 2,000 MG IV ONE ×2 (14:45)
[2020-08-20] MEDS ORDERED: LIDOCAINE 1%-EPI 1:100,000 20 ML VIAL SQ ONE ×2 (14:47→14:52)
[2020-08-20] MEDS ORDERED: LACTATED RINGERS 1,000 ML IV ONE (14:51)
--- NOTE | 2020-08-20 14:55 | P.PN ---
Subjective Progress Note Date: 08/20/20 Principal diagnosis: Elevated LFTs, cholelithiasis This patient is a 70-year-old pleasant white male with a history of recent Covid- 19 infection beginning of August for which he was hospitalized and discharged home. He also has a significant history of coronary artery disease and is status post CABG in January of this year. Is brought to the emergency room for complaints of abdominal pain mostly in the epigastric area associated with weakness. On admission he was found to have elevated LFTs, ultrasound was ordered showed large gallstone and echogenic bile, no dilated ducts, no discrete liver mass, there is probably fatty infiltration of the liver. CBD is not seen with certainty however measured at 0.2 cm. Patient is a very poor historian and has some difficulty with communicating. After speaking to the sun yesterday he was noted to have a significant history of alcohol abuse over the last 40 years, no known history of liver disease. Seen and evaluated today at the bedside, he complaints of right upper quadrant pain he denies any nausea or vomiting. Surgery is on consult and planning to proceed with the cholecystectomy if cleared by cardiology. Liver Enzymes improved today, hepatitis panel ordered and negative for hepatitis A, B, and C. Objective - Vital Signs Vital signs: Vital Signs Temp 98.7 F 08/20/20 05:30 Pulse 90 08/20/20 05:30 Resp 17 08/20/20 05:30 BP 114/69 08/20/20 05:30 Pulse Ox 96 08/20/20 05:30 Intake & Output 08/19/20 08/20/20 08/20/20 18:59 06:59 18:59 Intake Total 500 Balance 500 Intake: Intake, IV Titration 300 Amount Sodium Chloride 0.9% 1, 300 000 ml @ 50 mls/hr IV . Q20H [facility] Rx#:[id number] Oral 200 Other: Voiding Method Urinal Urinal # Voids 3 4 - Exam General appearance: The patient is alert, oriented, in no acute distress. HET: Head is normocephalic and atraumatic. Conjunctiva pink. Sclera anicteric. Neck: Supple without lymphadenopathy. Abdomen: Soft, right upper quadrant and epigastric tenderness, nondistended with bowel sounds. No guarding or rigidity. Extremities: Normal skin color and turgor. No pedal edema Neurological: No focal deficits. Alert and oriented 3. - Labs CBC & Chem 7: 08/20/20 06:23 08/20/20 06:23 Labs: Abnormal Lab Results - Last 24 Hours (Table) 08/20/20 Range/Units 06:23 RBC 3.85 L (4.30-5.90) m/uL Hgb 11.4 L (13.0-17.5) gm/dL Hct 36.0 L (39.0-53.0) % Plt Count 102 L (150-450) k/uL Assessment and Plan (1) Transaminitis Narrative/Plan: The patient who presented to the hospital with some abdominal pain and noted to have elevated serum transaminases with a history of heavy alcohol abuse for the last 40 years duration. Crush will history of hepatitis C in the past but patient cannot give us any further details. Ultrasound showed evidence of gallstones but no biliary ductal dilation. On review of records the patient was known to have mild elevation of serum transaminases for many years making it very likely he has underlying chronic liver disease possibly related to alcohol use. Possibility of CBD stone cannot be entirely excluded, given the clinical presentation. However the ultrasound did not show any evidence of dilated CBD. Today's total bilirubin 0.9, alkaline phosphatase 194, AST 61, ALT 131. Hepatitis serologies ordered, patient negative for hepatitis A, B, and C. Current Visit: Yes Status: Acute Code(s): R74.01 - ELEVATION OF LEVELS OF LIVER TRANSAMINASE LEVELS SNOMED Code(s): 538070352 (2) Abdominal pain Current Visit: Yes Status: Acute Code(s): R10.9 - UNSPECIFIED ABDOMINAL PAIN SNOMED Code(s): 41588535 (3) COVID-19 Current Visit: Yes Status: Acute Code(s): U07.1 - COVID-19 SNOMED Code(s): 679525712 (4) History of atrial fibrillation Narrative/Plan: Patient has a history of atrial fibrillation and coronary artery disease status post CABG in January 2020. Patient on Ahlquist currently on hold. Current Visit: No Status: Acute Code(s): Z86.79 - PERSONAL HISTORY OF OTHER DISEASES OF THE CIRCULATORY SYSTEM SNOMED Code(s): 077354345 (5) Presence of externally removable percutaneous endoscopic gastrostomy (PEG) tube Narrative/Plan: Patient is status post coronary artery bypass grafting January 2020 status post trach and PEG tube placement. The patient still has panic and per the family member is not been using the PEG tube for feeds from his 2 months and would like to have it removed. Current Visit: Yes Status: Acute Code(s): Z93.1 - GASTROSTOMY STATUS SNOMED Code(s): 525573735 Plan: 1. Supportive care 2. Diet per surgical recommendations 3. Repeat LFTs in morning 4. Surgical services on consult 5. Continue to hold on Eliquis We will continue to follow with you closely Dr. Jasson Santana I agree with the dictator's note, documented as a scribe by Meenu DICKSON C.
[2020-08-20] MEDS ORDERED: SODIUM CHLORIDE 0.9% 1,000 ML IV ONE (15:08)
--- NOTE | 2020-08-20 15:18 | P.OP ---
Date of Procedure: 08/20/20 Preoperative Diagnosis: Cholecystitis Postoperative Diagnosis: Cholecystitis Procedure(s) Performed: Laparoscopic cholecystectomy Anesthesia: RHONDA Surgeon: Santana Mckeon Estimated Blood Loss (ml): 5 Pathology: other (Gallbladder) Condition: stable Disposition: PACU Description of Procedure: The patient was placed on the operating table. The patient received a general endotracheal tube anesthesia. The patients abdomen was prepped and draped in the usual sterile fashion. Through an infraumbilical stab incision, the fascia of the anterior abdominal wall was grasped with a pair of Kochers and then the Veress needle was placed in the peritoneal cavity. Position of the Veress needle was confirmed with positive drop test. The abdomen was then insufflated. After adequate insufflation, the 10 mm trocar was placed in the peritoneal cavity. Following this the laparoscope was placed in the peritoneal cavity. The patient was placed in the head-up, right side up position and then a 5 mm trocar was placed in the right lateral and right subcostal position under direct visualization. A 8 mm trocar was placed in the epigastric position. The gallbladder was grasped in the fundus and infundibulum. Traction on the gallbladder was placed in the lateral and the cephalad positions. The triangle of Calot was visualized.. The cystic duct was bluntly dissected until the union of the cystic duct and common bile duct was seen. A critical view of safety was achieved. The cystic duct was then divided and sealed with the Harmonic scissors. A PDS Endoloop was then placed throughout the cystic duct stump. The cystic artery divided and sealed with the Harmonic scissors. The gallbladder was then removed from the liver bed using Harmonic scissors. The gallbladder was then extracted through the epigastric port site. Operative field was checked for any bleeding spots and Harmonic scissors was used to coagulate the liver bed. The abdomen was irrigated. The trocars were removed. The skin was closed using interrupted 3-0 Vicryl suture. Dermabond dressing were applied. The patient tolerated the procedure well.
[2020-08-20] MEDS: HYDROmorphone 1 MG/ML 1 ML SYRINGE IVP PRN (16:02)
[2020-08-20] MEDS: ATORVASTATIN 40 MG TAB PO SCH (21:15)
[2020-08-21] MEDS: LACTATED RINGERS 1,000 ML IV SCH (05:34)
[2020-08-21] MEDS: NON FORMULARY DRUG (Cholecalciferol 1,000 UNIT Tab) PO SCH (07:41)
[2020-08-21] MEDS: ASCORBIC ACID 500 MG TAB PO SCH (07:42)
[2020-08-21] MEDS: ZINC SULFATE 220 MG CAP PO SCH (07:42)
[2020-08-21] MEDS: QUEtiapine 25 MG TAB PO SCH ×2 (07:42→21:00)
[2020-08-21] MEDS: METOPROLOL TARTRATE 25 MG TAB PO SCH ×3 (07:42→21:52)
[2020-08-21] MEDS: levETIRAcetam ORAL SOLN 500 MG/5 ML CUP PO SCH ×2 (07:42→21:00)
[2020-08-21] MEDS: TORSEMIDE 20 MG TAB PO SCH (07:42)
[2020-08-21] MEDS: HEPARIN SODIUM,PORCINE 5,000 UNIT/ML 1 ML VIAL SQ SCH ×4 (07:44→23:04)
[2020-08-21 09:19] LABS: African American GFR (CKD) 103.4 (60.0-200.0); Albumin 3.3 g/dL (3.80-4.90); Albumin/Globulin Ratio 1.1 (1.60-3.17); Anion Gap 8.1 mmol/L (4.00-12.00); BUN/Creat Ratio 22.5 Ratio (12.00-20.00); Calcium 8.4 mg/dL (8.7-10.3); Carbon Dioxide 28.9 mmol/L (21.6-31.8); Non-African American GFR(CKD) 89.2 (60.0-200.0); Potassium 4.8 mmol/L (3.5-5.5); Total Bilirubin 0.9 mg/dL (0.2-1.2); Total Protein 6.3 g/dL (6.2-8.2)
[2020-08-21] MEDS: SODIUM CHLORIDE 0.9% 1,000 ML IV SCH ×3 (11:37→22:10)
--- NOTE | 2020-08-21 11:43 | P.PN ---
Subjective Progress Note Date: 08/21/20 CHIEF COMPLAINT: Weakness and hypotension HISTORY OF PRESENT ILLNESS: Patient is being followed in regards to acute cholecystitis. He is status post laparoscopic cholecystectomy. Postop day #1. Patient is lying in bed comfortably. No pain. Tolerating diet. AST 54 ALT 94 alk phos 195 PHYSICAL EXAM: VITAL SIGNS: Reviewed. GENERAL: Well-developed in no acute distress. HEENT: No sclera icterus. Extraocular movements grossly intact. Moist buccal mucosa. Head is atraumatic, normocephalic. ABDOMEN: Soft. Nondistended. Incision sites clean dry and intact NEUROLOGIC: Sleeping comfortably ASSESSMENT: 1. Acute cholecystitis status post laparoscopic cholecystectomy 2. Elevated LFTs 3. Significant cardiac history PLAN: -Advance diet to heart healthy, low fat diet -Continue pain medication as needed -Increase activity -Encouraged to use incentive spirometer Physician Product Design Engineer note has been reviewed by physician. Signing provider agrees with the documented findings, assessment, and plan of care. Objective - Vital Signs Vital signs: Vital Signs Temp 99.3 F 08/21/20 09:27 Pulse 69 08/21/20 09:27 Resp 17 08/21/20 09:27 BP 92/52 08/21/20 09:27 Pulse Ox 92 L 08/21/20 09:27 Intake & Output 08/20/20 08/21/20 08/21/20 18:59 06:59 18:59 Intake Total 1050 Balance 1050 Intake: IV 850 Oral 200 Other: Voiding Method Urinal Urinal Diaper Diaper # Voids 3 2 - Labs CBC & Chem 7: 08/20/20 06:23 08/21/20 05:51 Labs: Abnormal Lab Results - Last 24 Hours (Table) 08/21/20 Range/Units 05:51 BUN/Creatinine Ratio 22.50 H (12.00-20.00) Ratio Calcium 8.4 L (8.7-10.3) mg/dL AST 54 H (14-35) U/L ALT 94 H (10-49) U/L Alkaline Phosphatase 195 H (41-126) U/L Albumin 3.30 L (3.80-4.90) g/dL Albumin/Globulin Ratio 1.10 L (1.60-3.17) g/dL
--- NOTE | 2020-08-21 13:04 | PN ---
PROGRESS NOTE DATE OF DICTATION: August 21, 2020 Patient is a 70-year-old pleasant white male admitted to hospital with acute onset of epigastric pain associated with nausea, vomiting and mild elevation of serum transaminases. He underwent gallbladder surgery by Dr. Mckeon yesterday. He is doing well this morning. Abdominal pain has resolved. He has some pain at the periumbilical area at the site of incision. No fever, chills, night sweats. No nausea, vomiting. PHYSICAL EXAMINATION: Blood pressure is 92/52, pulse rate 69, temperature 99.3. HEENT EXAMINATION: Unremarkable. Conjunctivae pink. Sclerae anicteric. Oral cavity no lesions. NECK: No JVD or lymph node enlargement. CHEST: Was clear to auscultation. HEART: Regular rate and rhythm. ABDOMEN: Soft. There was very minimal tenderness in the epigastric area. Rest of the abdomen was benign. Surgical scars noted. EXTREMITIES: No pedal edema. NEUROLOGIC: Alert and oriented x3. No focal deficits. LABS: Labs from today: AST is 54, ALT is 94, alkaline phosphatase is 195. T bilirubin is 0.9. IMPRESSION: 1. Acute cholecystitis, status post gallbladder surgery yesterday. Patient doing well. 2. Elevated serum transaminases, gradually improving. Serum transaminases today are 54 and 55 respectively. 3. History of atrial fibrillation on Eliquis, currently on hold. 4. History of aortic valve replacement surgery in January of 2020, status post PEG tube placement at the same time. RECOMMENDATIONS: 1. Monitor LFTs closely. 2. Advance diet as per Surgery. 3. Repeat labs in the morning. 4. We will follow with you closely. Thank you for this consultation. MMODL / IJN: [id number] /
--- NOTE | 2020-08-21 13:50 | P.PN ---
Subjective HISTORY OF PRESENTING ILLNESS This is a pleasant 70-year-old male past medical history significant for coronary artery disease status post PCI of the proximal LAD in 2017, hypertension, dyslipidemia, valvular heart disease status post aortic valve replacement, chronic persistent atrial fibrillation, COPD and chronic nicotine dependence. He also recently had a prolonged hospitalization sometime over the summer of 2019 of which he required PEG and trach placement. According to nursing staff he had an aortic dissection that was repaired. Exact details aren't available. He follows in the office with Dr. Sanabria. Records revie carlton from [facility] from January 2020. At that time he underwent aortic root graft, regrafting of previously grafted ascending hemiarch and reimplantation of the left and right coronary arteries, repair of pulmonary artery with a bovine pericardial patch and bovine aortic valve replacement. He underwent laparoscopic cholecystectomy yesterday with Dr. Mckeon. He is seen and examined him up in bed in no acute distress. He continues to complain of his abdomen feeling sore. He denies chest pain, shortness of breath, dizziness or palpitations. Blood pressure 92/52 heart rate 69 afebrile maintaining oxygen saturation on nasal cannula. Laboratory data reviewed, sodium 141, potassium 4. 8, creatinine 0.8. PHYSICAL EXAMINATION CONSTITUTIONAL: No apparent distress. HEENT: Head is normocephalic. Pupils are equal, round. Sclerae anicteric. Mucous membranes of the mouth are moist. No JVD. No carotid bruit. CHEST EXAMINATION: Coarse crackles, no rhonchi or wheezes. No chest wall tend erness is noted on palpation or with deep breathing. HEART EXAMINATION: Irregular rate and rhythm. S1, S2 heard. Systolic ejection murmur at the base and apex, no gallops or rub. EXTREMITIES: 2+ peripheral pulses, trace lower extremity edema on the right with no swelling on the left and no calf tenderness. ASSESSMENT Cholelithiasis Coronary artery disease s/p PCI to proximal LAD 2016 Chronic persistent atrial fibrillation on eliquis Transaminitis Lactic acidosis Valvular heart disease s/p bioprostheic aortic valve replacement Aortic root replacement secondary to aortic aneurysm with previous history of ascending aortic graft Hypertension Dyslipidemia COPD Chronic nicotine dependence PLAN Continue current medical regimen. Hold lopressor for systolic blood pressure less than 90 or heart rate less than 60. Nurse Practitioner note has been reviewed, I agree with a documented findings a nd plan of care. Patient was seen and examined. Objective - Vital Signs Vital signs: Vital Signs Temp 99.3 F 08/21/20 09:27 Pulse 69 08/21/20 09:27 Resp 17 08/21/20 09:27 BP 92/52 08/21/20 09:27 Pulse Ox 92 L 08/21/20 09:27 Intake & Output 08/20/20 08/21/20 08/21/20 18:59 06:59 18:59 Intake Total 1050 Balance 1050 Intake: IV 850 Oral 200 Other: Voiding Method Urinal Urinal Diaper Diaper # Voids 3 2 - Labs CBC & Chem 7: 08/20/20 06:23 08/21/20 05:51 Labs: Abnormal Lab Results - Last 24 Hours (Table) 08/21/20 Range/Units 05:51 BUN/Creatinine Ratio 22.50 H (12.00-20.00) Ratio Calcium 8.4 L (8.7-10.3) mg/dL AST 54 H (14-35) U/L ALT 94 H (10-49) U/L Alkaline Phosphatase 195 H (41-126) U/L Albumin 3.30 L (3.80-4.90) g/dL Albumin/Globulin Ratio 1.10 L (1.60-3.17) g/dL
[2020-08-21] MEDS ORDERED: ACETAMINOPHEN TAB 325 MG TAB PO PRN (17:32)
[2020-08-21] MEDS ORDERED: IBUPROFEN 600 MG TAB PO PRN (18:13)
[2020-08-21] MEDS ORDERED: SODIUM CHLORIDE 0.9% 500 ML 500 ML IV ONE ×2 (20:57→22:15)
[2020-08-21] MEDS: ATORVASTATIN 40 MG TAB PO SCH (21:00)
--- NOTE | 2020-08-21 21:56 | P.PN ---
Subjective This is a pleasant 70 years old male with past medical history of chronic atrial fibrillation, aortic valve replacement surgery with a bioprosthetic valve and 01/2020, coronary artery disease status post CABG and stenting, COPD on home oxygen at 2 L/m, history of CVA with residual dysarthria, hypertension, hyperlipidemia history of dissecting descending aortic aneurysm surgical repair, prostate cancer status post prostatectomy, previous history of right lower leg DVT, alcoholic liver cirrhosis, history of hepatitis C, dysphagia with previous history of PEG tube placement. He was recently discharged from this hospital 08/05-08/06 for acute Covid pneumonia That was reported low blood pressure on admission but since he is in the emergency room his blood pressure was around 106/58, he is afebrile and rest of his vitals are stable. Labs showing unremarkable CBC except for mild anemia with hemoglobin 12.2. INR is normal 1.0. BMP is unremarkable, lactic acid was elevated at 3.0 came back to normal 1.4, AST is elevated to 206, and ALT 265. Bilirubin is normal 0.6. Lipase is normal EKG showing atrial fibrillation at [address]-T changes. Gallbladder ultrasound: Large gallstone and no dilated ducts. No liver mass. Chest x-ray showing cardiomegaly no heart failure 08/20/2020 Patient looks confused with looks like his baseline, he still complains from RUQ pain and tenderness, PEG tube is in place Patient was nothing by mouth in the morning, Eliquis is on hold. Metoprolol is on hold due to hypotension on admission Surgery team on the case for the cholelithiasis with a large gallstone and echogenic bile and they are asking for cardiac preop evaluation, patient was found by cardiology team and is high-risk but there is no contraindication. He is currently on normal sinus 50 mL/h 08/21/2020 Patient is a status post laparoscopic cholecystectomy. Today is postoperative day #1. Patient is lying in bed not in distress however he is complaining of from tenderness at the surgical site of his abdomen. PEG tube is in place. Patient is found closely by surgery and gastroenterology team. Cardiology team also on the case. However later the evening patient started developing fever of 103. Patient was started on Zosyn and CT of the abdomen and pelvis is ordered. Also his blood pressure was on the low side 73/42 500 bolus of normal saline is provided and possible he will need another bolus. Also we will send for blood culture and procalcitonin. I talked to Benjamín bedside nurse over the phone and states the patient is confused at baseline he is oriented to himself, he does not complain of from chest pain or abdominal pain or discomfort no diarrhea and his breathing quietly. Active Medications Generic Name Dose Route Start Last Admin Trade Name Freq PRN Reason Stop Dose Admin Ascorbic Acid 500 mg 08/20/20 09:00 08/21/20 07:42 Ascorbic Acid 500 Mg Tab PO 500 mg DAILY JAYLA Administration Atorvastatin Calcium 40 mg 08/20/20 21:00 08/21/20 21:00 Atorvastatin 40 Mg Tab PO 40 mg HS JAYLA Administration Heparin Sodium (Porcine) 5,000 unit 08/20/20 08:00 08/21/20 15:42 Heparin Sodium,Porcine 5,000 Unit/Ml 1 Ml Vial SQ 5,000 unit Q8HR JAYLA Administration Hydromorphone HCl 1 mg 08/20/20 15:18 08/20/20 16:02 Hydromorphone 1 Mg/Ml 1 Ml Syringe IVP 1 mg Q3HR PRN Administration Pain Sodium Chloride 1,000 mls @ 50 mls/hr 08/18/20 21:00 08/21/20 15:42 Saline 0.9% IV 50 mls/hr .Q20H JAYLA Administration Lactated Ringer's 1,000 mls @ 20 mls/hr 08/20/20 06:30 08/21/20 05:34 Lactated Ringers IV Not Given .Q24H JAYLA Piperacillin Sod/Tazobactam 100 mls @ 25 mls/hr 08/22/20 22:00 Sod 3.375 gm/ Sodium Chloride IVPB Q8H JAYLA Ibuprofen 600 mg 08/21/20 18:13 08/21/20 18:25 Ibuprofen 600 Mg Tab PO 600 mg Q6HR PRN Administration Pain Iopamidol 30 ml 08/21/20 21:49 Iopamidol Contrast (Oral Use) Vial PO 08/22/20 21:[address] Scan Levetiracetam 500 mg 08/20/20 00:30 08/21/20 21:00 Levetiracetam Oral Soln 500 Mg/5 Ml Cup PO 500 mg BID JAYLA Administration Levothyroxine Sodium 50 mcg 08/20/20 06:30 08/20/20 05:52 Levothyroxine 50 Mcg Tab PO 50 mcg DAILY@0630 JAYLA Administration Lidocaine HCl 0.1 ml 08/20/20 06:27 Lidocaine 1% (10mg/Ml) For Iv Start INTRADERMA PER PROTOCOL PRN IV Start Metoprolol Tartrate 25 mg 08/20/20 10:15 08/21/20 15:42 Metoprolol Tartrate 25 Mg Tab PO 25 mg TID JAYLA Administration Naloxone HCl 0.2 mg 08/18/20 20:53 Naloxone 0.4 Mg/Ml 1 Ml Vial IV Q2M PRN Opioid Reversal Non-Formulary Medication 1,000 unit 08/20/20 09:00 08/21/20 07:41 Cholecalciferol PO Not Given DAILY JAYLA Quetiapine Fumarate 25 mg 08/20/20 09:00 08/21/20 21:00 Quetiapine 25 Mg Tab PO 25 mg BID JAYLA Administration Torsemide 20 mg 08/20/20 09:00 08/21/20 07:42 Torsemide 20 Mg Tab PO 20 mg DAILY JAYLA Administration Zinc Sulfate 220 mg 08/20/20 09:00 08/21/20 07:42 Zinc Sulfate 220 Mg Cap PO 220 mg DAILY JAYLA Administration Objective - Vital Signs Vital signs: Vital Signs Temp 99.3 F 08/21/20 09:27 Pulse 69 08/21/20 09:27 Resp 17 08/21/20 09:27 BP 92/52 08/21/20 09:27 Pulse Ox 92 L 08/21/20 09:27 Intake & Output 08/20/20 08/21/20 08/21/20 18:59 06:59 18:59 Intake Total 1050 Balance 1050 Intake: IV 850 Oral 200 Other: Voiding Method Urinal Urinal Diaper Diaper # Voids 3 2 - Exam GENERAL: The patient is alert and oriented x3, not in any acute distress. Well developed, well nourished. HEENT: Pupils are round and equally reacting to light. EOMI. No scleral icterus. No conjunctival pallor. Normocephalic, atraumatic. No pharyngeal erythema. No thyromegaly. CARDIOVASCULAR: S1 and S2 present. No murmurs, rubs, or gallops. PULMONARY: Chest is clear to auscultation, no wheezing or crackles. -ABDOMEN: Soft, expected postop RUQ tenderness, nondistended, normoactive bowel sounds. No palpable organomegaly. PEG tube is in place. Multiple Small surgical wounds are closed and healing MUSCULOSKELETAL: No joint swelling or deformity. EXTREMITIES: No cyanosis, clubbing, or pedal edema. NEUROLOGICAL: Gross neurological examination did not reveal any focal deficits. SKIN: No rashes. No petechiae - Labs CBC & Chem 7: 08/20/20 06:23 08/21/20 05:51 Labs: Abnormal Lab Results - Last 24 Hours (Table) 08/21/20 Range/Units 05:51 BUN/Creatinine Ratio 22.50 H (12.00-20.00) Ratio Calcium 8.4 L (8.7-10.3) mg/dL AST 54 H (14-35) U/L ALT 94 H (10-49) U/L Alkaline Phosphatase 195 H (41-126) U/L Albumin 3.30 L (3.80-4.90) g/dL Albumin/Globulin Ratio 1.10 L (1.60-3.17) g/dL Assessment and Plan Assessment: elevated liver enzymes associated with Gallstone . Status post laparoscopic cholecystectomy on 08/20 Chronic atrial fibrillation on Eliquis Recent diagnosis with Covid infection on 08/05 History of recent aortic dissection repair History of dysphagia with PEG tube placement History of aortic valve replacement surgery with a bioprosthetic valve on 01/2020 History of coronary artery disease status post CABG and stenting History of stroke with residual dysarthria History of COPD on home oxygen 2 L/m Hypertension Hyperlipidemia History of dissecting descending aortic aneurysm surgical repair History of prostate cancer status post prostatectomy History of right lower leg DVT Alcoholic liver disease Chronic hepatitis C Plan: This is a pleasant 70 years old male who presents with gallstone and gallbladder disease status post laparoscopic cholecystectomy, started developing postoperative fever, GI and surgery team were consulted on follow their recommendation. Surgery is considered by surgical team, cardiology team on the case Start Zosyn for fever, check blood culture. Check CT of the abdomen and pelvis. Start IV fluids Labs and medication were reviewed.. Continue same treatment. Continue with symptomatic treatment. Resume home medication. Monitor lytes and vitals. DVT and GI prophylaxis. Further recommendations depends on the clinical course of the patient DVT prophylaxis: Subcutaneous heparin GI Prophylaxis: Pepcid PT/OT: Pending Prognosis is guarded
[2020-08-21] MEDS: IOPAMIDOL CONTRAST (ORAL USE) VIAL PO PRN ×2 (22:09→23:04)
--- NOTE | 2020-08-22 00:20 | CT ---
EXAMINATION TYPE: CT abdomen pelvis wo con DATE OF EXAM: 08/21/2020 COMPARISON: November 30, 2018 HISTORY: fever, post op CT DLP: 748.2 mGycm Automated exposure control for dose reduction was used. Images obtained from the diaphragm to the floor the pelvis with no contrast. There is some infiltrate and atelectasis right posterior lung base. There is mild pleural thickening. There is mild atelectasis left posterior lung base. Heart is enlarged. There is no pericardial effus ion. There is 0.3 cm aneurysm of the lower thoracic aorta. There is some contrast material in the sto mach. There is gastrostomy tube noted in good position on the anterior gastric wall. There is small a mount of free air in the abdomen consistent with recent surgery. There is subcutaneous air in the ant erior right upper quadrant. There is epigastric ventral hernia that contains transverse colon. The op ening of the hernia is 5.5 cm. Liver shows no focal defect. The bile ducts are not dilated. Gallbladder not definitely seen. There a ppears to BE clips from cholecystectomy. Spleen is intact. There is no pancreatic mass. There is no adrenal mass. Kidneys show normal size and contour. There is no hydronephrosis. Abdominal aorta is atheromatous. There is no retroperitoneal adenopathy. Ureters are not dilated. There is antonio e fat stranding around the umbilicus. This could be postsurgical changes. Bladder distends smoothly. There is no inguinal hernia. There is no free fluid in the pelvis. There is no sign of a bowel obstru ction. There is atherosclerotic vascular calcification. The lumbar and lower thoracic spine appear intact. There is no compression fracture. The bony pelvis appears intact. The hip joints are intact. IMPRESSION: Small pneumoperitoneum consistent with recent abdominal surgery. There appears to be cholecystectomy. Postsurgical changes. Epigastric ventral hernia containing transverse colon is also present on old C T scan but now contains the transverse colon. Gastrostomy tube in good position. Lower thoracic aortic aneurysm unchanged. Cardiomegaly. Mild infiltrate and atelectasis at the right lung base is new compared to old exam.
[2020-08-22] MEDS: LACTATED RINGERS 1,000 ML IV SCH (05:30)
[2020-08-22] MEDS: LEVOTHYROXINE 50 MCG TAB PO SCH (05:31)
[2020-08-22 07:05] LABS: Basophils % (A) 1 %; Eosinophils # (A) 0.1 k/uL (0-0.7); Eosinophils % (A) 1 %; HGB 10.3 gm/dL (13.0-17.5); Lymphocytes # (A) 0.9 k/uL (1.0-4.8); Lymphocytes % (A) 11 %; MCH 30.2 pg (25.0-35.0); MCHC 33.4 g/dL (31.0-37.0); MCV 90.3 fL (80.0-100.0); Mean Platelet Volume 7.7; Monocytes # (A) 0.5 k/uL (0-1.0); Monocytes % (A) 7 %; Neutrophils # (A) 6.4 k/uL (1.3-7.7); Neutrophils % (A) 79 %; RBC 3.43 m/uL (4.30-5.90); RDW 14.4 % (11.5-15.5); WBC 8.1 k/uL (3.8-10.6)
[2020-08-22 07:47] LABS: Platelet Count 89 k/uL (150-450); Poikilocytosis (M) Present
[2020-08-22] MEDS: HEPARIN SODIUM,PORCINE 5,000 UNIT/ML 1 ML VIAL SQ SCH ×3 (08:53→23:42)
[2020-08-22] MEDS: levETIRAcetam ORAL SOLN 500 MG/5 ML CUP PO SCH ×2 (08:53→20:23)
[2020-08-22] MEDS: TORSEMIDE 20 MG TAB PO SCH (08:54)
[2020-08-22] MEDS: ZINC SULFATE 220 MG CAP PO SCH (08:54)
[2020-08-22] MEDS: ASCORBIC ACID 500 MG TAB PO SCH (08:54)
[2020-08-22] MEDS: QUEtiapine 25 MG TAB PO SCH ×2 (08:54→20:23)
[2020-08-22] MEDS: METOPROLOL TARTRATE 12.5 MG TAB PO SCH ×2 (08:54→20:24)
--- NOTE | 2020-08-22 10:32 | P.PN ---
Subjective HISTORY OF PRESENTING ILLNESS This is a pleasant 70-year-old male past medical history significant for coronary artery disease status post PCI of the proximal LAD in 2017, hypertension, dyslipidemia, valvular heart disease status post aortic valve replacement, chronic persistent atrial fibrillation, COPD and chronic nicotine dependence. He also recently had a prolonged hospitalization 01/2020 of which he required PEG and trach placement. He follows in the office with Dr. Sanabria. He is seen and examined sitting up in bed in no acute distress. He continues to be confused and not communicating appropriately. CT of the abdomen and pelvis performed last night secondary to postop fever revealed a small pneumoperitoneum consistent with recent abdominal surgery, epigastric ventral hernia containing transverse colon. Blood pressure 132/80 heart rate 103 afebrile maintaining oxygen saturation on nasal cannula. T-max last evening 103.1F. Laboratory data reviewed, WBC 8.1, hemoglobin 10.3 and platelets 89. Currently maintained on atorvastatin 40 mg daily, lopressor 12.5 mg BID and tosemide 20 mg daily. PHYSICAL EXAMINATION CONSTITUTIONAL: No apparent distress. HEENT: Head is normocephalic. Pupils are equal, round. Sclerae anicteric. Mucous membranes of the mouth are moist. No JVD. No carotid bruit. CHEST EXAMINATION: Coarse crackles, no rhonchi or wheezes. No chest wall tenderness is noted on palpation or with deep breathing. HEART EXAMINATION: Irregular rate and rhythm. S1, S2 heard. Systolic ejection murmur at the base and apex, no gallops or rub. EXTREMITIES: 2+ peripheral pulses, trace lower extremity edema on the right with no swelling on the left and no calf tenderness. ASSESSMENT Cholelithiasis Thrombocytopenia Febrile illness Coronary artery disease s/p PCI to proximal LAD 2016 Chronic persistent atrial fibrillation on eliquis Transaminitis Lactic acidosis Valvular heart disease s/p bioprostheic aortic valve replacement Aortic root replacement secondary to aortic aneurysm with previous history of ascending aortic graft Hypertension Dyslipidemia COPD Chronic nicotine dependence PLAN Continue current medical regimen. Further evaluation from the surgical team regarding fever. Maintained on IV antibiotics. Nurse Practitioner note has been reviewed, I agree with a documented findings a nd plan of care. Patient was seen and examined. Objective - Vital Signs Vital signs: Vital Signs Temp 97.4 F L 08/22/20 09:46 Pulse 103 H 08/22/20 09:46 Resp 24 08/22/20 09:46 BP 132/80 08/22/20 09:46 Pulse Ox 94 L 08/22/20 09:46 Intake & Output 08/21/20 08/22/20 08/22/20 18:59 06:59 18:59 Output Total 300 Balance -300 Output: Urine 300 Straight 200 Other: Voiding Method Urinal Toilet Toilet Diaper Urinal Urinal Diaper Diaper # Voids 3 - Labs CBC & Chem 7: 08/22/20 06:21 08/21/20 05:51 Labs: Abnormal Lab Results - Last 24 Hours (Table) 08/22/20 Range/Units 06:21 RBC 3.43 L (4.30-5.90) m/uL Hgb 10.3 L (13.0-17.5) gm/dL Hct 31.0 L (39.0-53.0) % Plt Count 89 L (150-450) k/uL Lymphocytes # 0.9 L (1.0-4.8) k/uL
[2020-08-22 10:34] LABS: African American GFR (CKD) 103.4 (60.0-200.0); Anion Gap 6.4 mmol/L (4.00-12.00); BUN/Creat Ratio 21.25 Ratio (12.00-20.00); Calcium 7.6 mg/dL (8.7-10.3); Carbon Dioxide 30.6 mmol/L (21.6-31.8); Non-African American GFR(CKD) 89.2 (60.0-200.0); Potassium 3.4 mmol/L (3.5-5.5)
[2020-08-22] MEDS: NON FORMULARY DRUG (Cholecalciferol 1,000 UNIT Tab) PO SCH (10:50)
[2020-08-22] MEDS ORDERED: Potassium Replacement Protocol 1 EACH MISC MISCELLANE PRN (10:53)
--- NOTE | 2020-08-22 11:29 | XR ---
EXAMINATION TYPE: XR chest 1V DATE OF EXAM: 08/22/2020 COMPARISON: 08/18/2020 HISTORY: Fever TECHNIQUE: Single frontal view of the chest is obtained. FINDINGS: Left lower lobe infiltrate. Heart is prominent. Postoperative change. Surgical clips overl magdaleno the right chest. Metallic densities overlying the right clavicle could be artifactual or chronic foreign body. No interstitial edema. Underlying COPD suspected. Subsegmental right basilar infiltrat e. IMPRESSION: 1. Bibasilar infiltrate greater on the left correlate for early pneumonia.
--- NOTE | 2020-08-22 13:38 | P.PN ---
Subjective This is a pleasant 70 years old male with past medical history of chronic atrial fibrillation, aortic valve replacement surgery with a bioprosthetic valve and 01/2020, coronary artery disease status post CABG and stenting, COPD on home oxygen at 2 L/m, history of CVA with residual dysarthria, hypertension, hyperlipidemia history of dissecting descending aortic aneurysm surgical repair, prostate cancer status post prostatectomy, previous history of right lower leg DVT, alcoholic liver cirrhosis, history of hepatitis C, dysphagia with previous history of PEG tube placement. He was recently discharged from this hospital 08/05-08/06 for acute Covid pneumonia That was reported low blood pressure on admission but since he is in the emergency room his blood pressure was around 106/58, he is afebrile and rest of his vitals are stable. Labs showing unremarkable CBC except for mild anemia with hemoglobin 12.2. INR is normal 1.0. BMP is unremarkable, lactic acid was elevated at 3.0 came back to normal 1.4, AST is elevated to 206, and ALT 265. Bilirubin is normal 0.6. Lipase is normal EKG showing atrial fibrillation at [address]-T changes. Gallbladder ultrasound: Large gallstone and no dilated ducts. No liver mass. Chest x-ray showing cardiomegaly no heart failure 08/20/2020 Patient looks confused with looks like his baseline, he still complains from RUQ pain and tenderness, PEG tube is in place Patient was nothing by mouth in the morning, Eliquis is on hold. Metoprolol is on hold due to hypotension on admission Surgery team on the case for the cholelithiasis with a large gallstone and echogenic bile and they are asking for cardiac preop evaluation, patient was found by cardiology team and is high-risk but there is no contraindication. He is currently on normal sinus 50 mL/h 08/21/2020 Patient is a status post laparoscopic cholecystectomy. Today is postoperative day #1. Patient is lying in bed not in distress however he is complaining of from tenderness at the surgical site of his abdomen. PEG tube is in place. Patient is found closely by surgery and gastroenterology team. Cardiology team also on the case. However later the evening patient started developing fever of 103. Patient was started on Zosyn and CT of the abdomen and pelvis is ordered. Also his blood pressure was on the low side 73/42 500 bolus of normal saline is provided and possible he will need another bolus. Also we will send for blood culture and procalcitonin. I talked to Benjamín bedside nurse over the phone and states the patient is confused at baseline he is oriented to himself, he does not complain of from chest pain or abdominal pain or discomfort no diarrhea and his breathing quietly. 08/22/2020 Patient developed high fever yesterday at 103. CT of the abdomen and pelvis with contrast showed small pneumoperitoneum consistent with recent abdominal surgery. With cholecystectomy. Postsurgical changes. Epigastric ventral hernia containing transverse colon is also present on old CT But now continues the transverse colon. Gastrostomy tube in good position. Cardiomegaly. I discussed the case with surgery team, no further intervention is needed Chest x-ray from today showing bilateral basal pneumonia suspicious for respiration. Continue Zosyn, follow-up culture. Consult for swallow evaluation discussed with staff Patient himself is awake and comfortable, is still have some expected abdominal pain from his surgery. really tachypneic. And he is saturating 94% on 3 L oxygen. CBC and BMP are stable with no leukocytosis Pro-calcitonin is slightly elevated at 0.13. Lower the dose of metoprolol from 25 3 times a day and to 12.5 twice a day and start gentle hydration with normal saline at 50 mL per hour Active Medications Generic Name Dose Route Start Last Admin Trade Name Freq PRN Reason Stop Dose Admin Ascorbic Acid 500 mg 08/20/20 09:00 08/22/20 08:54 Ascorbic Acid 500 Mg Tab PO 500 mg DAILY JAYLA Administration Atorvastatin Calcium 40 mg 08/20/20 21:00 08/21/20 21:00 Atorvastatin 40 Mg Tab PO 40 mg HS JAYLA Administration Heparin Sodium (Porcine) 5,000 unit 08/20/20 08:00 08/22/20 08:53 Heparin Sodium,Porcine 5,000 Unit/Ml 1 Ml Vial SQ 5,000 unit Q8HR JAYLA Administration Hydromorphone HCl 1 mg 08/20/20 15:18 08/20/20 16:02 Hydromorphone 1 Mg/Ml 1 Ml Syringe IVP 1 mg Q3HR PRN Administration Pain Sodium Chloride 1,000 mls @ 50 mls/hr 08/18/20 21:00 08/21/20 15:42 Saline 0.9% IV 50 mls/hr .Q20H JAYLA Administration Lactated Ringer's 1,000 mls @ 20 mls/hr 08/20/20 06:30 08/22/20 05:30 Lactated Ringers IV Not Given .Q24H JAYLA Piperacillin Sod/Tazobactam 100 mls @ 25 mls/hr 08/22/20 22:00 Sod 3.375 gm/ Sodium Chloride IVPB Q8H JAYLA Sodium Chloride 1,000 mls @ 50 mls/hr 08/21/20 22:00 08/21/20 22:10 Saline 0.9% IV 75 mls/hr .Q20H JAYLA Administration Levetiracetam 500 mg 08/20/20 00:30 08/22/20 08:53 Levetiracetam Oral Soln 500 Mg/5 Ml Cup PO 500 mg BID JAYLA Administration Levothyroxine Sodium 50 mcg 08/20/20 06:30 08/22/20 05:31 Levothyroxine 50 Mcg Tab PO 50 mcg DAILY@0630 JAYLA Administration Lidocaine HCl 0.1 ml 08/20/20 06:27 Lidocaine 1% (10mg/Ml) For Iv Start INTRADERMA PER PROTOCOL PRN IV Start Metoprolol Tartrate 12.5 mg 08/22/20 09:00 08/22/20 08:54 Metoprolol Tartrate 12.5 Mg Tab PO 12.5 mg BID JAYLA Administration Miscellaneous Information 1 each 08/22/20 10:53 Potassium Replacement Protocol 1 Each Misc MISCELLANE DAILY PRN Per Protocol Protocol Naloxone HCl 0.2 mg 08/18/20 20:53 Naloxone 0.4 Mg/Ml 1 Ml Vial IV Q2M PRN Opioid Reversal Non-Formulary Medication 1,000 unit 08/20/20 09:00 08/22/20 10:50 Cholecalciferol PO Not Given DAILY JAYLA Quetiapine Fumarate 25 mg 08/20/20 09:00 08/22/20 08:54 Quetiapine 25 Mg Tab PO 25 mg BID JAYLA Administration Torsemide 20 mg 08/20/20 09:00 08/22/20 08:54 Torsemide 20 Mg Tab PO 20 mg DAILY JAYLA Administration Zinc Sulfate 220 mg 08/20/20 09:00 08/22/20 08:54 Zinc Sulfate 220 Mg Cap PO 220 mg DAILY JAYLA Administration Objective - Vital Signs Vital signs: Vital Signs Temp 97.4 F L 08/22/20 09:46 Pulse 103 H 08/22/20 09:46 Resp 24 08/22/20 09:46 BP 132/80 08/22/20 09:46 Pulse Ox 94 L 08/22/20 09:46 Intake & Output 08/21/20 08/22/20 08/22/20 18:59 06:59 18:59 Output Total 300 Balance -300 Output: Urine 300 Straight 200 Other: Voiding Method Urinal Toilet Toilet Diaper Urinal Urinal Diaper Diaper # Voids 3 - Exam GENERAL: The patient is alert and oriented x3, not in any acute distress. Well developed, well nourished. HEENT: Pupils are round and equally reacting to light. EOMI. No scleral icterus. No conjunctival pallor. Normocephalic, atraumatic. No pharyngeal erythema. No thyromegaly. CARDIOVASCULAR: S1 and S2 present. No murmurs, rubs, or gallops. PULMONARY: Chest is clear to auscultation, no wheezing or crackles. -ABDOMEN: Soft, expected postop RUQ tenderness, nondistended, normoactive bowel sounds. No palpable organomegaly. PEG tube is in place. Multiple Small surgica l wounds are closed and healing MUSCULOSKELETAL: No joint swelling or deformity. EXTREMITIES: No cyanosis, clubbing, or pedal edema. NEUROLOGICAL: Gross neurological examination did not reveal any focal deficits. SKIN: No rashes. No petechiae - Labs CBC & Chem 7: 08/22/20 06:21 08/22/20 06:21 Labs: Abnormal Lab Results - Last 24 Hours (Table) 08/21/20 08/22/20 08/22/20 Range/Units 22:52 06:21 06:21 RBC 3.43 L (4.30-5.90) m/uL Hgb 10.3 L (13.0-17.5) gm/dL Hct 31.0 L (39.0-53.0) % Plt Count 89 L (150-450) k/uL Lymphocytes # 0.9 L (1.0-4.8) k/uL Potassium 3.4 L (3.5-5.5) mmol/L BUN/Creatinine Ratio 21.25 H (12.00-20.00) Ratio Calcium 7.6 L (8.7-10.3) mg/dL Procalcitonin 0.13 H (0.02-0.09) ng/mL Assessment and Plan Assessment: elevated liver enzymes associated with Gallstone . Status post laparoscopic cholecystectomy on 08/20 Aspiration pneumonia Chronic atrial fibrillation on Eliquis Recent diagnosis with Covid infection on 08/05 History of recent aortic dissection repair History of dysphagia with PEG tube placement History of aortic valve replacement surgery with a bioprosthetic valve on 01/2020 History of coronary artery disease status post CABG and stenting History of stroke with residual dysarthria History of COPD on home oxygen 2 L/m Hypertension Hyperlipidemia History of dissecting descending aortic aneurysm surgical repair History of prostate cancer status post prostatectomy History of right lower leg DVT Alcoholic liver disease Chronic hepatitis C Plan: This is a pleasant 70 years old male who presents with gallstone and gallbladder disease status post laparoscopic cholecystectomy, started developing postoperative fever, GI and surgery team were consulted on follow their recommendation. Surgery is considered by surgical team, cardiology team on the case Continue with Zosyn for fever, check blood culture. Labs and medication were reviewed.. Continue same treatment. Continue with symptomatic treatment. Resume home medication. Monitor lytes and vitals. DVT and GI prophylaxis. Further recommendations depends on the clinical course of the patient DVT prophylaxis: Subcutaneous heparin GI Prophylaxis: Pepcid PT/OT: Pending Prognosis is guarded
--- NOTE | 2020-08-22 15:07 | PN ---
PROGRESS NOTE DATE OF DICTATION: August 22, 2020 The patient is a 70-year-old pleasant white male admitted to hospital with acute epigastric pain, nausea, vomiting, and acute cholecystitis. He underwent gallbladder surgery yesterday. He is doing better. He is on a regular diet, tolerating well. He complains of mild epigastric discomfort. PHYSICAL EXAMINATION: He appears comfortable, no apparent distress. Vital signs are stable. Blood pressure is 133/86, pulse rate 82 per minute and afebrile. HEENT EXAMINATION: Unremarkable. Conjunctivae pink. Sclerae anicteric. Oral cavity, no lesions. NECK: No JVD or lymph node enlargement. CHEST: Was clear to auscultation. HEART: Regular rate and rhythm. ABDOMEN: Soft. Bowel sounds are positive. No organomegaly. PEG tube still in place. EXTREMITIES: No pedal edema. SKIN: No rashes. NEURO: He is alert and oriented x3. No focal deficits. LABS: Labs from today: WBC 8.1, hemoglobin 10.3, platelets 89,000. No liver enzymes available. Potassium 3.4. BUN and creatinine are within normal limits. IMPRESSION: 1. Acute cholecystitis, status post gallbladder surgery yesterday. Patient doing well, tolerating regular diet. 2. Elevated LFTs, which are significantly improved. 3. Fever last night. Repeat CT of the abdomen was done early this morning that showed evidence of small pneumoperitoneum and changes consistent with recent abdominal surgery, a small epigastric ventral hernia noted and PEG tube was in place. Surgery following the patient closely. The patient is on broad-spectrum antibiotics currently. 4. History of hypertension and hyperlipidemia. RECOMMENDATIONS: 1. Continue with broad-spectrum antibiotics. 2. Repeat LFTs tomorrow morning. 3. Continue symptomatic and supportive care. 4. Diet as per surgery. 5. We will follow with you closely. Thank you for this consultation. MMODL / IJN: [id number] /
--- NOTE | 2020-08-22 15:10 | P.PN ---
Subjective Progress Note Date: 08/22/20 CHIEF COMPLAINT: Weakness and hypotension HISTORY OF PRESENT ILLNESS: Patient seen and examined with Dr. Mckeon. Patient is status post laparoscopic cholecystectomy. Postop day #2. Patient is lying in bed comfortably. No pain. Tolerating diet. He did have a temp of 103.1 last night. Computed tomography scan abdomen and pelvis without contrast showed a small pneumoperitoneum consistent with recent abdominal surgery. There appears to be cholecystectomy postsurgical changes. Epigastric ventral hernia containing transverse colon is also present on old computed tomography scan but now contains the transverse colon. Gastrostomy tube in good position. Lower thoracic aortic aneurysm unchanged. Cardiomegaly. Mild infiltrate and atelectasis at the lung base is new compared to old exam. Dr. Mckeon discussed case with medicine service. WBC 8.1 hemoglobin 10.3 potassium 3.4 and being replaced. Medicine service has placed patient on Zosyn with suspicion of pneumonia PHYSICAL EXAM: VITAL SIGNS: Reviewed. GENERAL: Well-developed in no acute distress. HEENT: No sclera icterus. Extraocular movements grossly intact. Moist buccal mucosa. Head is atraumatic, normocephalic. ABDOMEN: Soft. Nondistended. Incision sites clean dry and intact NEUROLOGIC: Sleeping comfortably ASSESSMENT: 1. Acute cholecystitis status post laparoscopic cholecystectomy 2. Elevated LFTs 3. Significant cardiac history 4. hypokalemia potassium being replaced 5. Fever possibly due to atelectasis or developing pneumonia 6. Recent Covid infection on August 05 PLAN: -Continue heart healthy, low fat diet -Antibiotics for medicine service -Continue pain medication as needed -Increase activity -Encouraged to use incentive spirometer Physician Robotics Engineer note has been reviewed by physician. Signing provider agrees with the documented findings, assessment, and plan of care. Objective - Vital Signs Vital signs: Vital Signs Temp 98.2 F 08/22/20 14:05 Pulse 81 08/22/20 14:05 Resp 20 08/22/20 14:05 BP 108/67 08/22/20 14:05 Pulse Ox 98 08/22/20 14:05 Intake & Output 08/21/20 08/22/20 08/22/20 18:59 06:59 18:59 Output Total 300 Balance -300 Output: Urine 300 Straight 200 Other: Voiding Method Urinal Toilet Toilet Diaper Urinal Urinal Diaper Diaper # Voids 3 - Labs CBC & Chem 7: 08/22/20 06:21 08/22/20 06:21 Labs: Abnormal Lab Results - Last 24 Hours (Table) 08/21/20 08/22/20 08/22/20 Range/Units 22:52 06:21 06:21 RBC 3.43 L (4.30-5.90) m/uL Hgb 10.3 L (13.0-17.5) gm/dL Hct 31.0 L (39.0-53.0) % Plt Count 89 L (150-450) k/uL Lymphocytes # 0.9 L (1.0-4.8) k/uL Potassium 3.4 L (3.5-5.5) mmol/L BUN/Creatinine Ratio 21.25 H (12.00-20.00) Ratio Calcium 7.6 L (8.7-10.3) mg/dL Procalcitonin 0.13 H (0.02-0.09) ng/mL
--- NOTE | 2020-08-22 18:40 | ECHOF ---
Referral Reason:Rule out heart disease MEASUREMENTS -------- HEIGHT: 175.3 cm WEIGHT: 83.9 kg BP: 132/80 IVSd: 1.5 cm (0.6 - 1.1) LVIDd: 5.0 cm (3.9 - 5.3) LVPWd: 1.8 cm (0.6 - 1.1) IVSs: 1.6 cm LVIDs: 4.1 cm LVPWs: 1.9 cm FINDINGS -------- This was a technically difficult study with suboptimal views. Limited Study The left ventricular size is normal. There is moderate concentric left ventricular hypertrophy. O verall left ventricular systolic function is mildly impaired with, an EF between 45 - 50 %. Lumason used There is no pericardial effusion. CONCLUSIONS -------- 1. This was a technically difficult study with suboptimal views. 2. There is moderate concentric left ventricular hypertrophy. 3. Overall left ventricular systolic function is mildly impaired with, an EF between 45 - 50 %. FLIGHT ATTENDANT [employer]: Ami Loera [facility]
[2020-08-22] MEDS: PIPERACILLIN-TAZOBACTAM 3.375 GM in SODIUM CHLORIDE 0.9% 100 ML IVPB SCH (20:23)
[2020-08-22] MEDS: ATORVASTATIN 40 MG TAB PO SCH (20:24)
[2020-08-22] MEDS: SODIUM CHLORIDE 0.9% 1,000 ML IV SCH (21:05)
[2020-08-23] MEDS: SODIUM CHLORIDE 0.9% 1,000 ML IV SCH ×2 (02:05→08:41)
[2020-08-23] MEDS: LACTATED RINGERS 1,000 ML IV SCH (05:13)
[2020-08-23] MEDS: LEVOTHYROXINE 50 MCG TAB PO SCH (05:13)
[2020-08-23] MEDS: PIPERACILLIN-TAZOBACTAM 3.375 GM in SODIUM CHLORIDE 0.9% 100 ML IVPB SCH ×3 (05:13→21:12)
[2020-08-23 06:54] LABS: Basophils % (A) 0 %; Eosinophils # (A) 0.1 k/uL (0-0.7); Eosinophils % (A) 2 %; HCT 31.9 % (39.0-53.0); HGB 10.4 gm/dL (13.0-17.5); Lymphocytes # (A) 0.8 k/uL (1.0-4.8); Lymphocytes % (A) 13 %; MCH 29.9 pg (25.0-35.0); MCHC 32.6 g/dL (31.0-37.0); MCV 91.7 fL (80.0-100.0); Mean Platelet Volume 8.4; Monocytes # (A) 0.4 k/uL (0-1.0); Monocytes % (A) 7 %; Neutrophils # (A) 5.1 k/uL (1.3-7.7); Neutrophils % (A) 78 %; RBC 3.48 m/uL (4.30-5.90); RDW 14.1 % (11.5-15.5); WBC 6.6 k/uL (3.8-10.6)
[2020-08-23 07:04] LABS: Platelet Count 87 k/uL (150-450)
[2020-08-23] MEDS: ASCORBIC ACID 500 MG TAB PO SCH (08:41)
[2020-08-23] MEDS: METOPROLOL TARTRATE 12.5 MG TAB PO SCH ×2 (08:41→20:02)
[2020-08-23] MEDS: levETIRAcetam ORAL SOLN 500 MG/5 ML CUP PO SCH ×2 (08:42→20:02)
[2020-08-23] MEDS: ZINC SULFATE 220 MG CAP PO SCH (08:42)
[2020-08-23] MEDS: NON FORMULARY DRUG (Cholecalciferol 1,000 UNIT Tab) PO SCH (08:42)
[2020-08-23] MEDS: QUEtiapine 25 MG TAB PO SCH ×2 (08:42→20:02)
[2020-08-23] MEDS: HEPARIN SODIUM,PORCINE 5,000 UNIT/ML 1 ML VIAL SQ SCH ×3 (08:42→23:27)
[2020-08-23] MEDS: TORSEMIDE 20 MG TAB PO SCH (08:42)
[2020-08-23 09:56] LABS: African American GFR (CKD) 109.3 (60.0-200.0); Albumin 3.1 g/dL (3.80-4.90); Albumin/Globulin Ratio 1.15 (1.60-3.17); Anion Gap 3.9 mmol/L (4.00-12.00); BUN/Creat Ratio 21.43 Ratio (12.00-20.00); Calcium 7.9 mg/dL (8.7-10.3); Carbon Dioxide 30.1 mmol/L (21.6-31.8); Globulin 2.7 g/dL (1.6-3.3); Non-African American GFR(CKD) 94.3 (60.0-200.0); Potassium 3.4 mmol/L (3.5-5.5); Total Bilirubin 0.8 mg/dL (0.3-1.2); Total Protein 5.8 g/dL (6.2-8.2)
--- NOTE | 2020-08-23 10:18 | PN ---
PROGRESS NOTE 08/23/2020 REQUESTING PHYSICIAN: [facility]. The patient is a 70-year-old pleasant white male admitted to hospital with acute cholecystitis. Underwent gallbladder surgery 2 days ago. He still continues to complain of abdominal pain. However, his oral intake has been improving. He had some fever 2 nights ago and had a stat CT of the abdomen and pelvis done that did not show any significant pathology. He remains on broad-spectrum antibiotics. PHYSICAL EXAMINATION: He appears comfortable. No apparent distress.. VITAL SIGNS: Stable. Blood pressure is 112/86, pulse rate 80, and temperature 98.8. HEENT: Examination unremarkable. Conjunctivae are pink. Sclerae anicteric. Oral cavity no lesions. NECK: No JVD or lymph node enlargement. CHEST: Clear to auscultation. HEART: Regular rate and rhythm. ABDOMEN: Soft. There was severe tenderness in the right upper quadrant area. Mild tenderness in the periumbilical area. The gastrostomy appears patent. EXTREMITIES: No pedal edema. NEUROLOGIC: Alert and oriented x3. No focal deficits. LABS: From today WBC 6.6, hemoglobin 10.4, platelets normal. Basic metabolic panel was not done. IMPRESSION: 1. Acute cholecystitis status post cholecystectomy 3 days ago, presently on broad- spectrum antibiotics with Unasyn. 2. Elevated LFTs which are gradually improving. LFTs 2 days ago showed AST of 54, ALT 94, and alkaline phosphatase 195. 3. History of gastrostomy placement 6 months ago at the time of CABG in January of 2020. The patient has not been using the PEG tube for the last 6 weeks. RECOMMENDATIONS: Continue with broad-spectrum antibiotics. Continue to monitor labs closely. Once the overall condition improves, we will plan on removing the PEG tube. We will follow with you closely. Thank you for this consultation. MMODL / IJN: [id number] /
--- NOTE | 2020-08-23 10:31 | P.PN ---
Subjective Progress Note Date: 08/23/20 Principal diagnosis: Cholecystitis Patient doing well today. Pain is minimal. Tolerating diet. Labs noted. Liver enzymes decreasing. Objective - Vital Signs Vital signs: Vital Signs Temp 98.1 F 08/23/20 10:00 Pulse 80 08/23/20 10:00 Resp 18 08/23/20 10:00 BP 80/49 08/23/20 10:00 Pulse Ox 92 L 08/23/20 10:00 Intake & Output 08/22/20 08/23/20 08/23/20 18:59 06:59 18:59 Intake Total 500 Output Total 850 400 Balance -850 100 Intake: Oral 500 Output: Urine 850 400 Other: Voiding Method Toilet Toilet Urinal Urinal Diaper Diaper # Voids 1 1 # Bowel Movements 1 - Exam Abdomen: Soft, nondistended, incisions clean and dry - Labs CBC & Chem 7: 08/23/20 05:57 08/23/20 05:57 Labs: Abnormal Lab Results - Last 24 Hours (Table) 08/21/20 08/22/20 08/23/20 Range/Units 22:52 06:21 05:57 RBC 3.48 L (4.30-5.90) m/uL Hgb 10.4 L (13.0-17.5) gm/dL Hct 31.9 L (39.0-53.0) % Plt Count 87 L (150-450) k/uL Lymphocytes # 0.8 L (1.0-4.8) k/uL Potassium 3.4 L (3.5-5.5) mmol/L Anion Gap (4.00-12.00) mmol/L BUN/Creatinine Ratio 21.25 H (12.00-20.00) Ratio Calcium 7.6 L (8.7-10.3) mg/dL AST (14-35) U/L ALT (10-49) U/L Alkaline Phosphatase (41-126) U/L Total Protein (6.2-8.2) g/dL Albumin (3.80-4.90) g/dL Albumin/Globulin Ratio (1.60-3.17) g/dL Procalcitonin 0.13 H (0.02-0.09) ng/mL 08/23/20 Range/Units 05:57 RBC (4.30-5.90) m/uL Hgb (13.0-17.5) gm/dL Hct (39.0-53.0) % Plt Count (150-450) k/uL Lymphocytes # (1.0-4.8) k/uL Potassium 3.4 L (3.5-5.5) mmol/L Anion Gap 3.90 L (4.00-12.00) mmol/L BUN/Creatinine Ratio 21.43 H (12.00-20.00) Ratio Calcium 7.9 L (8.7-10.3) mg/dL AST 37 H (14-35) U/L ALT 51 H (10-49) U/L Alkaline Phosphatase 187 H (41-126) U/L Total Protein 5.8 L (6.2-8.2) g/dL Albumin 3.10 L (3.80-4.90) g/dL Albumin/Globulin Ratio 1.15 L (1.60-3.17) g/dL Procalcitonin (0.02-0.09) ng/mL Microbiology - Last 24 Hours (Table) 08/21/20 22:52 Blood Culture - Preliminary Blood No Growth after 24 hours Assessment and Plan (1) Abdominal pain Narrative/Plan: Patient doing better at this time. Continue diet. Monitor incision sites. Home per primary service. Current Visit: Yes Status: Acute Code(s): R10.9 - UNSPECIFIED ABDOMINAL PAIN SNOMED Code(s): 16966609
[2020-08-23] MEDS: POTASSIUM CHLORIDE ER 20 MEQ TAB.ER PO SCH ×2 (10:42→11:37)
--- NOTE | 2020-08-23 12:24 | P.PN ---
Subjective This is a pleasant 70 years old male with past medical history of chronic atrial fibrillation, aortic valve replacement surgery with a bioprosthetic valve and 01/2020, coronary artery disease status post CABG and stenting, COPD on home oxygen at 2 L/m, history of CVA with residual dysarthria, hypertension, hyperlipidemia history of dissecting descending aortic aneurysm surgical repair, prostate cancer status post prostatectomy, previous history of right lower leg DVT, alcoholic liver cirrhosis, history of hepatitis C, dysphagia with previous history of PEG tube placement. He was recently discharged from this hospital 08/05-08/06 for acute Covid pneumonia That was reported low blood pressure on admission but since he is in the emergency room his blood pressure was around 106/58, he is afebrile and rest of his vitals are stable. Labs showing unremarkable CBC except for mild anemia with hemoglobin 12.2. INR is normal 1.0. BMP is unremarkable, lactic acid was elevated at 3.0 came back to normal 1.4, AST is elevated to 206, and ALT 265. Bilirubin is normal 0.6. Lipase is normal EKG showing atrial fibrillation at [address]-T changes. Gallbladder ultrasound: Large gallstone and no dilated ducts. No liver mass. Chest x-ray showing cardiomegaly no heart failure 08/20/2020 Patient looks confused with looks like his baseline, he still complains from RUQ pain and tenderness, PEG tube is in place Patient was nothing by mouth in the morning, Eliquis is on hold. Metoprolol is on hold due to hypotension on admission Surgery team on the case for the cholelithiasis with a large gallstone and echogenic bile and they are asking for cardiac preop evaluation, patient was found by cardiology team and is high-risk but there is no contraindication. He is currently on normal sinus 50 mL/h 08/21/2020 Patient is a status post laparoscopic cholecystectomy. Today is postoperative day #1. Patient is lying in bed not in distress however he is complaining of from tenderness at the surgical site of his abdomen. PEG tube is in place. Patient is found closely by surgery and gastroenterology team. Cardiology team also on the case. However later the evening patient started developing fever of 103. Patient was started on Zosyn and CT of the abdomen and pelvis is ordered. Also his blood pressure was on the low side 73/42 500 bolus of normal saline is provided and possible he will need another bolus. Also we will send for blood culture and procalcitonin. I talked to Benjamín bedside nurse over the phone and states the patient is confused at baseline he is oriented to himself, he does not complain of from chest pain or abdominal pain or discomfort no diarrhea and his breathing quietly. 08/22/2020 Patient developed high fever yesterday at 103. CT of the abdomen and pelvis with contrast showed small pneumoperitoneum consistent with recent abdominal surgery. With cholecystectomy. Postsurgical changes. Epigastric ventral hernia containing transverse colon is also present on old CT But now continues the transverse colon. Gastrostomy tube in good position. Cardiomegaly. I discussed the case with surgery team, no further intervention is needed Chest x-ray from today showing bilateral basal pneumonia suspicious for respiration. Continue Zosyn, follow-up culture. Consult for swallow evaluation discussed with staff Patient himself is awake and comfortable, is still have some expected abdominal pain from his surgery. really tachypneic. And he is saturating 94% on 3 L oxygen. CBC and BMP are stable with no leukocytosis Pro-calcitonin is slightly elevated at 0.13. Lower the dose of metoprolol from 25 3 times a day and to 12.5 twice a day and start gentle hydration with normal saline at 50 mL per hour 08/23/2020 Patient is lying in bed slightly tachypneic, no change clinically much from yesterday. He is saturating 92-95% and acetic acid oxygen via nasal cannula. No excision wheezing on exam CBC and BMP are unremarkable. Blood culture are still pending. Repeat chest x-ray tomorrow He remains on Zosyn. Pressure is still low normal side so keeping Toprol 21.5 mg twice a day Objective - Vital Signs Vital signs: Vital Signs Temp 98.1 F 08/23/20 10:00 Pulse 80 08/23/20 10:00 Resp 18 08/23/20 10:00 BP 109/67 08/23/20 11:54 Pulse Ox 92 L 08/23/20 10:00 Intake & Output 08/22/20 08/23/20 08/23/20 18:59 06:59 18:59 Intake Total 500 500 Output Total 850 400 Balance -850 100 500 Intake: IV 500 Piperacillin-Tazobactam 3 100 .375 gm In Sodium Chloride 0.9% 100 ml @ 25 mls/hr IVPB Q8H [facility] Rx#: [id number] Sodium Chloride 0.9% 1, 400 000 ml @ 50 mls/hr IV . Q20H [facility] Rx#:[id number] Oral 500 Output: Urine 850 400 Other: Voiding Method Toilet Toilet Urinal Urinal Urinal Diaper Diaper Diaper # Voids 1 1 # Bowel Movements 1 - Exam GENERAL: The patient is alert and oriented x3, not in any acute distress. Well developed, well nourished. HEENT: Pupils are round and equally reacting to light. EOMI. No scleral icterus. No conjunctival pallor. Normocephalic, atraumatic. No pharyngeal erythema. No thyromegaly. CARDIOVASCULAR: S1 and S2 present. No murmurs, rubs, or gallops. PULMONARY: Chest is clear to auscultation, no wheezing or crackles. -ABDOMEN: Soft, expected postop RUQ tenderness, nondistended, normoactive bowel sounds. No palpable organomegaly. PEG tube is in place. Multiple Small surgical wounds are closed and healing MUSCULOSKELETAL: No joint swelling or deformity. EXTREMITIES: No cyanosis, clubbing, or pedal edema. NEUROLOGICAL: Gross neurological examination did not reveal any focal deficits. SKIN: No rashes. No petechiae - Labs CBC & Chem 7: 08/23/20 05:57 08/23/20 05:57 Labs: Abnormal Lab Results - Last 24 Hours (Table) 08/23/20 08/23/20 Range/Units 05:57 05:57 RBC 3.48 L (4.30-5.90) m/uL Hgb 10.4 L (13.0-17.5) gm/dL Hct 31.9 L (39.0-53.0) % Plt Count 87 L (150-450) k/uL Lymphocytes # 0.8 L (1.0-4.8) k/uL Potassium 3.4 L (3.5-5.5) mmol/L Anion Gap 3.90 L (4.00-12.00) mmol/L BUN/Creatinine Ratio 21.43 H (12.00-20.00) Ratio Calcium 7.9 L (8.7-10.3) mg/dL AST 37 H (14-35) U/L ALT 51 H (10-49) U/L Alkaline Phosphatase 187 H (41-126) U/L Total Protein 5.8 L (6.2-8.2) g/dL Albumin 3.10 L (3.80-4.90) g/dL Albumin/Globulin Ratio 1.15 L (1.60-3.17) g/dL Microbiology - Last 24 Hours (Table) 08/21/20 22:52 Blood Culture - Preliminary Blood No Growth after 24 hours Assessment and Plan Assessment: elevated liver enzymes associated with Gallstone . Status post laparoscopic cholecystectomy on 08/20 Aspiration pneumonia Chronic atrial fibrillation on Eliquis Recent diagnosis with Covid infection on 08/05 History of recent aortic dissection repair History of dysphagia with PEG tube placement History of aortic valve replacement surgery with a bioprosthetic valve on 01/2020 History of coronary artery disease status post CABG and stenting History of stroke with residual dysarthria History of COPD on home oxygen 2 L/m Hypertension Hyperlipidemia History of dissecting descending aortic aneurysm surgical repair History of prostate cancer status post prostatectomy History of right lower leg DVT Alcoholic liver disease Chronic hepatitis C Plan: This is a pleasant 70 years old male who presents with gallstone and gallbladder disease status post laparoscopic cholecystectomy, started developing postoperative fever, GI and surgery team were consulted on follow their recommendation. Surgery is considered by surgical team, cardiology team on the case Continue with Zosyn for fever, check blood culture. Labs and medication were reviewed.. Continue same treatment. Continue with symptomatic treatment. Resume home medication. Monitor lytes and vitals. DVT and GI prophylaxis. Further recommendations depends on the clinical course of the patient DVT prophylaxis: Subcutaneous heparin GI Prophylaxis: Pepcid PT/OT: Pending Prognosis is guarded
--- NOTE | 2020-08-23 15:42 | P.PN ---
Subjective Progress Note Date: 08/23/20 This is a 70-year-old gentleman with history of ischemic or disease with previous stent placement of the LAD, aortic valve replacement and history of aortic dissection who was recently admitted to the hospital with abdominal pain and abnormal liver enzymes. He was found to have cholecystitis. Patient und erwent laparoscopic cholecystectomy. Postoperatively patient developed a fever and elevated liver enzymes. PT is being followed by GI and also surgical team. He still complaining of abdominal discomfort. He seemed to be afebrile. His liver enzymes are improving. His blood pressure is about 140/70 and his pulse rate is 88, respirations are 19. Patient is currently on pain medications Keppra, thyroid supplement and metoprolol. Patient is also on broad-spectrum antibiotics and Demadex 20 mg daily. Doesn't appear to be in acute distress but is generally looking ill and also complaining of abdominal discomfort Objective - Vital Signs Vital signs: Vital Signs Temp 97.9 F 08/23/20 14:00 Pulse 88 08/23/20 14:00 Resp 19 08/23/20 14:00 BP 145/77 08/23/20 14:00 Pulse Ox 98 08/23/20 14:00 Intake & Output 08/22/20 08/23/20 08/23/20 18:59 06:59 18:59 Intake Total 500 500 Output Total 850 400 Balance -850 100 500 Intake: IV 500 Piperacillin-Tazobactam 3 100 .375 gm In Sodium Chloride 0.9% 100 ml @ 25 mls/hr IVPB Q8H [facility] Rx#: [id number] Sodium Chloride 0.9% 1, 400 000 ml @ 50 mls/hr IV . Q20H [facility] Rx#:[id number] Oral 500 Output: Urine 850 400 Other: Voiding Method Toilet Toilet Urinal Urinal Urinal Diaper Diaper Diaper # Voids 1 1 # Bowel Movements 1 - Exam GENERAL EXAM: Patient is alert and oriented and and appears to be in mild to moderate abdominal discomfort and ill-looking HEENT: Normocephalic. Normal reaction of pupils, equal size, normal range of extraocular motion. No erythema or exudates in the throat. NECK: No masses, no nuchal rigidity. CHEST: No chest wall deformity. LUNGS: Equal air entry with no crackles or wheeze. HEART: S1 and S2 normal. Distant heart sounds ABDOMEN: No hepatosplenomegaly, normal bowel sounds, no guarding or rigidity. SKIN: No rashes CENTRAL NERVOUS SYSTEM: No focal deficits. EXTREMITIES: No cyanosis, clubbing or edema. - Labs CBC & Chem 7: 08/23/20 05:57 08/23/20 14:09 Labs: Abnormal Lab Results - Last 24 Hours (Table) 08/23/20 08/23/20 Range/Units 05:57 05:57 RBC 3.48 L (4.30-5.90) m/uL Hgb 10.4 L (13.0-17.5) gm/dL Hct 31.9 L (39.0-53.0) % Plt Count 87 L (150-450) k/uL Lymphocytes # 0.8 L (1.0-4.8) k/uL Potassium 3.4 L (3.5-5.5) mmol/L Anion Gap 3.90 L (4.00-12.00) mmol/L BUN/Creatinine Ratio 21.43 H (12.00-20.00) Ratio Calcium 7.9 L (8.7-10.3) mg/dL AST 37 H (14-35) U/L ALT 51 H (10-49) U/L Alkaline Phosphatase 187 H (41-126) U/L Total Protein 5.8 L (6.2-8.2) g/dL Albumin 3.10 L (3.80-4.90) g/dL Albumin/Globulin Ratio 1.15 L (1.60-3.17) g/dL Microbiology - Last 24 Hours (Table) 08/21/20 22:52 Blood Culture - Preliminary Blood No Growth after 24 hours Assessment and Plan (1) CAD (coronary artery disease) Current Visit: Yes Status: Acute Code(s): I25.10 - ATHSCL HEART DISEASE OF [place] CORONARY ARTERY W/O ANG PCTRS SNOMED Code(s): 62747297 (2) Status post cholecystectomy Current Visit: Yes Status: Acute Code(s): Z90.49 - ACQUIRED ABSENCE OF OTHER SPECIFIED PARTS OF DIGESTIVE TRACT SNOMED Code(s): 882886263 (3) History of aortic valve replacement Current Visit: Yes Status: Acute Code(s): Z95.2 - PRESENCE OF PROSTHETIC HEART VALVE SNOMED Code(s): 2242818130577 (4) COVID-19 Current Visit: Yes Status: Acute Code(s): U07.1 - COVID-19 SNOMED Code(s): 815757360 Plan: Continue current management with broad-spectrum antibiotics. Continue the beta blockers and diuretics. We will follow
[2020-08-23] MEDS: ATORVASTATIN 40 MG TAB PO SCH (20:02)
[2020-08-23] MEDS: HYDROmorphone 1 MG/ML 1 ML SYRINGE IVP PRN (20:02)
[2020-08-24] MEDS: SODIUM CHLORIDE 0.9% 1,000 ML IV SCH ×2 (02:48→23:12)
[2020-08-24] MEDS: LEVOTHYROXINE 50 MCG TAB PO SCH (05:30)
[2020-08-24] MEDS: PIPERACILLIN-TAZOBACTAM 3.375 GM in SODIUM CHLORIDE 0.9% 100 ML IVPB SCH ×3 (05:30→21:24)
[2020-08-24 06:47] LABS: Basophils % (A) 1 %; Eosinophils # (A) 0.2 k/uL (0-0.7); Eosinophils % (A) 2 %; HCT 33.5 % (39.0-53.0); HGB 11.1 gm/dL (13.0-17.5); Lymphocytes # (A) 1.1 k/uL (1.0-4.8); Lymphocytes % (A) 16 %; MCH 30.6 pg (25.0-35.0); MCHC 33.1 g/dL (31.0-37.0); MCV 92.6 fL (80.0-100.0); Mean Platelet Volume 7.8; Monocytes # (A) 0.5 k/uL (0-1.0); Monocytes % (A) 7 %; Neutrophils # (A) 4.9 k/uL (1.3-7.7); Neutrophils % (A) 72 %; RBC 3.61 m/uL (4.30-5.90); RDW 14.3 % (11.5-15.5); WBC 6.8 k/uL (3.8-10.6)
[2020-08-24 07:07] LABS: Platelet Count 94 k/uL (150-450)
[2020-08-24] MEDS: HEPARIN SODIUM,PORCINE 5,000 UNIT/ML 1 ML VIAL SQ SCH ×3 (07:39→23:12)
[2020-08-24] MEDS: METOPROLOL TARTRATE 12.5 MG TAB PO SCH ×2 (07:40→20:19)
[2020-08-24] MEDS: QUEtiapine 25 MG TAB PO SCH ×2 (07:40→20:19)
[2020-08-24] MEDS: ZINC SULFATE 220 MG CAP PO SCH (07:40)
[2020-08-24] MEDS: levETIRAcetam ORAL SOLN 500 MG/5 ML CUP PO SCH ×2 (07:40→20:19)
[2020-08-24] MEDS: ASCORBIC ACID 500 MG TAB PO SCH (07:40)
[2020-08-24] MEDS: TORSEMIDE 20 MG TAB PO SCH (07:40)
[2020-08-24] MEDS: NON FORMULARY DRUG (Cholecalciferol 1,000 UNIT Tab) PO SCH (07:41)
[2020-08-24 09:02] LABS: African American GFR (CKD) 103.4 (60.0-200.0); Albumin 3.3 g/dL (3.80-4.90); Albumin/Globulin Ratio 1.18 (1.60-3.17); Anion Gap 5.2 mmol/L (4.00-12.00); BUN/Creat Ratio 12.5 Ratio (12.00-20.00); Bilirubin, Conjugated 0.4 mg/dL (0.20-0.40); Bilirubin,Unconjugated 0.4 mg/dL; Calcium 8.4 mg/dL (8.7-10.3); Carbon Dioxide 30.8 mmol/L (21.6-31.8); Globulin 2.8 g/dL (1.6-3.3); Magnesium 1.8 mg/dL (1.5-2.4); Non-African American GFR(CKD) 89.2 (60.0-200.0); Potassium 4.4 mmol/L (3.5-5.5); Total Bilirubin 0.8 mg/dL (0.2-1.2); Total Protein 6.1 g/dL (6.2-8.2)
--- NOTE | 2020-08-24 11:00 | P.PN ---
Subjective Progress Note Date: 08/24/20 Principal diagnosis: Cholecystitis Patient complaining of mild pain at the epigastric incision site. He is afebrile. White blood cell count is normal. Tolerating diet. Objective - Vital Signs Vital signs: Vital Signs Temp 98.4 F 08/24/20 10:00 Pulse 49 L 08/24/20 10:00 Resp 19 08/24/20 10:00 BP 93/54 08/24/20 10:00 Pulse Ox 95 08/24/20 10:00 Intake & Output 08/23/20 08/24/20 08/24/20 18:59 06:59 18:59 Intake Total 500 500 Output Total 550 Balance 500 -550 500 Intake: IV 500 500 Piperacillin-Tazobactam 3 100 100 .375 gm In Sodium Chloride 0.9% 100 ml @ 25 mls/hr IVPB Q8H [facility] Rx#: [id number] Sodium Chloride 0.9% 1, 400 400 000 ml @ 50 mls/hr IV . Q20H [facility] Rx#:[id number] Output: Urine 550 Other: Voiding Method Urinal Toilet Toilet Diaper Urinal Urinal Diaper Diaper # Voids 1 2 # Bowel Movements 1 - Exam Abdomen: Soft, nondistended, epigastric incision site with mild erythema and some induration, some ecchymosis as well, glue tape removed without drainage - Labs CBC & Chem 7: 08/24/20 06:10 08/24/20 06:10 Labs: Abnormal Lab Results - Last 24 Hours (Table) 08/24/20 08/24/20 Range/Units 06:10 06:10 RBC 3.61 L (4.30-5.90) m/uL Hgb 11.1 L (13.0-17.5) gm/dL Hct 33.5 L (39.0-53.0) % Plt Count 94 L (150-450) k/uL Calcium 8.4 L (8.7-10.3) mg/dL Alkaline Phosphatase 192 H (41-126) U/L Total Protein 6.1 L (6.2-8.2) g/dL Albumin 3.30 L (3.80-4.90) g/dL Albumin/Globulin Ratio 1.18 L (1.60-3.17) g/dL Microbiology - Last 24 Hours (Table) 08/21/20 22:52 Blood Culture - Preliminary Blood No Growth after 48 hours Assessment and Plan (1) Abdominal pain Narrative/Plan: Continue antibiotics for possible mild cellulitis or infected hematoma at epigastric trocar site. Continue diet as tolerated. Will follow. Current Visit: Yes Status: Acute Code(s): R10.9 - UNSPECIFIED ABDOMINAL PAIN SNOMED Code(s): 90624053
--- NOTE | 2020-08-24 12:29 | PN ---
PROGRESS NOTE DATE OF DICTATION: August 24, 2020. REQUESTING PHYSICIAN: Dr. Desir Patient is a 70-year-old pleasant white male admitted to hospital with acute cholecystitis. Underwent gallbladder surgery 4 days ago. The patient was noted to have elevated serum transaminases which are gradually improving. Though not completely normalized. Today he is complaining of severe right upper quadrant abdominal pain. No nausea, no vomiting. PHYSICAL EXAMINATION: He appears comfortable. No apparent distress. Vital signs stable. Blood pressure 133/65 and pulse rate 109 per minute and afebrile. T- max was 99. HEENT examination unremarkable. Conjunctivae pink. Sclerae anicteric. Oral cavity no lesions. NECK: No JVD or lymph node enlargement. CHEST was clear to auscultation. HEART: Regular rate and rhythm. ABDOMEN: Soft. There was severe tenderness and erythema with swelling noted at the incision site in the right upper quadrant area measuring about 3 x 4 cm in size. It was extremely tender. Rest of the abdomen was benign. EXTREMITIES: No pedal edema. NEUROLOGIC: Alert and oriented x3. No focal deficits. LABS: WBC 6.8, hemoglobin 11.1, platelets 94. AST and ALT have normalized to 32 and 46 respectively, alkaline phosphatase 192 and T-bilirubin is 0.4. IMPRESSION: 1. Acute elevation of serum transaminases, probably related to acute cholecystitis completely resolved. LFTs have normalized. 2. Status post laparoscopic cholecystectomy 4 days ago for acute cholecystitis. 3. Severe right upper quadrant abdominal pain with cellulitis at the incision site in the right upper quadrant area. Dr. Montano following the patient closely. 4. History of PEG tube placement last year following surgery which is still in place. The patient has not been using the PEG tube for 2 months. RECOMMENDATION: 1. Continue management as per Surgery. 2. Continue with broad-spectrum antibiotics. 3. When patient is ready for discharge, we will consider PEG tube removal based on his overall clinical condition. We will follow with you closely. Thank you for this consultation. MMODL / IJN: [id number] /
--- NOTE | 2020-08-24 12:33 | P.PN ---
Subjective Progress Note Date: 08/24/20 This is a 70-year-old gentleman with history of ischemic or disease with previous stent placement of the LAD, aortic valve replacement and history of aortic dissection who was recently admitted to the hospital with abdominal pain and abnormal liver enzymes. He was found to have cholecystitis. Patient und erwent laparoscopic cholecystectomy. Postoperatively patient developed a fever and elevated liver enzymes. PT is being followed by GI and also surgical team. He still complaining of abdominal discomfort. He seemed to be afebrile. His liver enzymes are improving. His blood pressure is about 140/70 and his pulse rate is 88, respirations are 19. Patient is currently on pain medications Keppra, thyroid supplement and metoprolol. Patient is also on broad-spectrum antibiotics and Demadex 20 mg daily. Doesn't appear to be in acute distress but is generally looking ill and also complaining of abdominal discomfort. 08/24/2020: This patient is status post laparoscopic cholecystectomy. Patient was evaluated by Dr. Carias. His abdominal pain seemed to be related to some irritation are cellulitis near the trocar site. Patient is afebrile. Vital signs are stable with heart rates in the 70s. Lab values showed a hemoglobin of 11. Electrodes are normal. Kidney function is normal. We'll continue current medical therapy. No complaints of any chest pain Objective - Vital Signs Vital signs: Vital Signs Temp 98.4 F 08/24/20 10:00 Pulse 49 L 08/24/20 10:00 Resp 19 08/24/20 10:00 BP 93/54 08/24/20 10:00 Pulse Ox 95 08/24/20 10:00 Intake & Output 08/23/20 08/24/20 08/24/20 18:59 06:59 18:59 Intake Total 500 500 Output Total 550 Balance 500 -550 500 Intake: IV 500 500 Piperacillin-Tazobactam 3 100 100 .375 gm In Sodium Chloride 0.9% 100 ml @ 25 mls/hr IVPB Q8H [facility] Rx#: [id number] Sodium Chloride 0.9% 1, 400 400 000 ml @ 50 mls/hr IV . Q20H [facility] Rx#:[id number] Output: Urine 550 Other: Voiding Method Urinal Toilet Toilet Diaper Urinal Urinal Diaper Diaper # Voids 1 2 # Bowel Movements 1 - Exam GENERAL EXAM: Patient is alert and oriented and and appears to be in mild to moderate abdominal discomfort and ill-looking HEENT: Normocephalic. Normal reaction of pupils, equal size, normal range of extraocular motion. No erythema or exudates in the throat. NECK: No masses, no nuchal rigidity. CHEST: No chest wall deformity. LUNGS: Equal air entry with no crackles or wheeze. HEART: S1 and S2 normal. Distant heart sounds ABDOMEN: No hepatosplenomegaly, normal bowel sounds, no guarding or rigidity. SKIN: No rashes CENTRAL NERVOUS SYSTEM: No focal deficits. EXTREMITIES: No cyanosis, clubbing or edema. - Labs CBC & Chem 7: 08/24/20 06:10 08/24/20 06:10 Labs: Abnormal Lab Results - Last 24 Hours (Table) 08/24/20 08/24/20 Range/Units 06:10 06:10 RBC 3.61 L (4.30-5.90) m/uL Hgb 11.1 L (13.0-17.5) gm/dL Hct 33.5 L (39.0-53.0) % Plt Count 94 L (150-450) k/uL Calcium 8.4 L (8.7-10.3) mg/dL Alkaline Phosphatase 192 H (41-126) U/L Total Protein 6.1 L (6.2-8.2) g/dL Albumin 3.30 L (3.80-4.90) g/dL Albumin/Globulin Ratio 1.18 L (1.60-3.17) g/dL Microbiology - Last 24 Hours (Table) 08/21/20 22:52 Blood Culture - Preliminary Blood No Growth after 48 hours Assessment and Plan (1) CAD (coronary artery disease) Current Visit: Yes Status: Acute Code(s): I25.10 - ATHSCL HEART DISEASE OF [place] CORONARY ARTERY W/O ANG PCTRS SNOMED Code(s): 22444800 (2) Status post cholecystectomy Current Visit: Yes Status: Acute Code(s): Z90.49 - ACQUIRED ABSENCE OF OTHER SPECIFIED PARTS OF DIGESTIVE TRACT SNOMED Code(s): 544989989 (3) History of aortic valve replacement Current Visit: Yes Status: Acute Code(s): Z95.2 - PRESENCE OF PROSTHETIC HEART VALVE SNOMED Code(s): 5905769419186 (4) COVID-19 Current Visit: Yes Status: Acute Code(s): U07.1 - COVID-19 SNOMED Code(s): 670158788 Plan: Patient is to be clinically stable and his liver enzymes are improving. No complaints of any chest pain. Continue current medical therapy
--- NOTE | 2020-08-24 14:34 | P.PN ---
Subjective This is a pleasant 70 years old male with past medical history of chronic atrial fibrillation, aortic valve replacement surgery with a bioprosthetic valve and 01/2020, coronary artery disease status post CABG and stenting, COPD on home oxygen at 2 L/m, history of CVA with residual dysarthria, hypertension, hyperlipidemia history of dissecting descending aortic aneurysm surgical repair, prostate cancer status post prostatectomy, previous history of right lower leg DVT, alcoholic liver cirrhosis, history of hepatitis C, dysphagia with previous history of PEG tube placement. He was recently discharged from this hospital 08/05-08/06 for acute Covid pneumonia That was reported low blood pressure on admission but since he is in the emergency room his blood pressure was around 106/58, he is afebrile and rest of his vitals are stable. Labs showing unremarkable CBC except for mild anemia with hemoglobin 12.2. INR is normal 1.0. BMP is unremarkable, lactic acid was elevated at 3.0 came back to normal 1.4, AST is elevated to 206, and ALT 265. Bilirubin is normal 0.6. Lipase is normal EKG showing atrial fibrillation at [address]-T changes. Gallbladder ultrasound: Large gallstone and no dilated ducts. No liver mass. Chest x-ray showing cardiomegaly no heart failure 08/20/2020 Patient looks confused with looks like his baseline, he still complains from RUQ pain and tenderness, PEG tube is in place Patient was nothing by mouth in the morning, Eliquis is on hold. Metoprolol is on hold due to hypotension on admission Surgery team on the case for the cholelithiasis with a large gallstone and echogenic bile and they are asking for cardiac preop evaluation, patient was found by cardiology team and is high-risk but there is no contraindication. He is currently on normal sinus 50 mL/h 08/21/2020 Patient is a status post laparoscopic cholecystectomy. Today is postoperative day #1. Patient is lying in bed not in distress however he is complaining of from tenderness at the surgical site of his abdomen. PEG tube is in place. Patient is found closely by surgery and gastroenterology team. Cardiology team also on the case. However later the evening patient started developing fever of 103. Patient was started on Zosyn and CT of the abdomen and pelvis is ordered. Also his blood pressure was on the low side 73/42 500 bolus of normal saline is provided and possible he will need another bolus. Also we will send for blood culture and procalcitonin. I talked to Benjamín bedside nurse over the phone and states the patient is confused at baseline he is oriented to himself, he does not complain of from chest pain or abdominal pain or discomfort no diarrhea and his breathing quietly. 08/22/2020 Patient developed high fever yesterday at 103. CT of the abdomen and pelvis with contrast showed small pneumoperitoneum consistent with recent abdominal surgery. With cholecystectomy. Postsurgical changes. Epigastric ventral hernia containing transverse colon is also present on old CT But now continues the transverse colon. Gastrostomy tube in good position. Cardiomegaly. I discussed the case with surgery team, no further intervention is needed Chest x-ray from today showing bilateral basal pneumonia suspicious for respiration. Continue Zosyn, follow-up culture. Consult for swallow evaluation discussed with staff Patient himself is awake and comfortable, is still have some expected abdominal pain from his surgery. really tachypneic. And he is saturating 94% on 3 L oxygen. CBC and BMP are stable with no leukocytosis Pro-calcitonin is slightly elevated at 0.13. Lower the dose of metoprolol from 25 3 times a day and to 12.5 twice a day and start gentle hydration with normal saline at 50 mL per hour 08/23/2020 Patient is lying in bed slightly tachypneic, no change clinically much from yesterday. He is saturating 92-95% and acetic acid oxygen via nasal cannula. No excision wheezing on exam CBC and BMP are unremarkable. Blood culture are still pending. Repeat chest x-ray tomorrow He remains on Zosyn. Pressure is still low normal side so keeping Toprol 21.5 mg twice a day 08/24/2020 Patient is more awake and alert, he has dysarthria at baseline. He does not have much respiratory symptoms but still complains from pain and tenderness in the right upper quadrant abdomen No more fever for the last 48 hours. Labs are stable. Blood culture no growth Recheck chest x-ray Surgery team suspecting mild cellulitis or infected hematoma at epigastric site, so they recommended to keep holding hold Eliquis for now and keep subcutaneous heparin Patient remains on Zosyn and normal saline at 50 mL per hour Objective - Vital Signs Vital signs: Vital Signs Temp 99.2 F 08/24/20 14:00 Pulse 92 01/24/21 14:00 Resp 19 08/24/20 14:00 BP 121/77 08/24/20 14:00 Pulse Ox 97 08/24/20 14:00 Intake & Output 08/23/20 08/24/20 08/24/20 18:59 06:59 18:59 Intake Total 500 500 Output Total 550 Balance 500 -550 500 Intake: IV 500 500 Piperacillin-Tazobactam 3 100 100 .375 gm In Sodium Chloride 0.9% 100 ml @ 25 mls/hr IVPB Q8H JAYLA Rx#: [id number] Sodium Chloride 0.9% 1, 400 400 000 ml @ 50 mls/hr IV . Q20H JAYLA Rx#:[id number] Output: Urine 550 Other: Voiding Method Urinal Toilet Toilet Diaper Urinal Urinal Diaper Diaper # Voids 1 2 # Bowel Movements 1 - Exam GENERAL: The patient is alert and oriented x3, not in any acute distress. Well developed, well nourished. HEENT: Pupils are round and equally reacting to light. EOMI. No scleral icterus. No conjunctival pallor. Normocephalic, atraumatic. No pharyngeal erythema. No thyromegaly. CARDIOVASCULAR: S1 and S2 present. No murmurs, rubs, or gallops. PULMONARY: Chest is clear to auscultation, no wheezing or crackles. -ABDOMEN: Soft, expected postop RUQ tenderness, nondistended, normoactive bowel sounds. No palpable organomegaly. PEG tube is in place. Multiple Small surgical wounds are closed and healing MUSCULOSKELETAL: No joint swelling or deformity. EXTREMITIES: No cyanosis, clubbing, or pedal edema. NEUROLOGICAL: Gross neurological examination did not reveal any focal deficits. SKIN: No rashes. No petechiae - Labs CBC & Chem 7: 08/24/20 06:10 08/24/20 06:10 Labs: Abnormal Lab Results - Last 24 Hours (Table) 08/24/20 08/24/20 Range/Units 06:10 06:10 RBC 3.61 L (4.30-5.90) m/uL Hgb 11.1 L (13.0-17.5) gm/dL Hct 33.5 L (39.0-53.0) % Plt Count 94 L (150-450) k/uL Calcium 8.4 L (8.7-10.3) mg/dL Alkaline Phosphatase 192 H (41-126) U/L Total Protein 6.1 L (6.2-8.2) g/dL Albumin 3.30 L (3.80-4.90) g/dL Albumin/Globulin Ratio 1.18 L (1.60-3.17) g/dL Microbiology - Last 24 Hours (Table) 08/21/20 22:52 Blood Culture - Preliminary Blood No Growth after 48 hours Assessment and Plan Assessment: elevated liver enzymes associated with Gallstone . Status post laparoscopic cholecystectomy on 08/20 Aspiration pneumonia Possible infected hematoma or cellulitis at the epigastric site Chronic atrial fibrillation on Eliquis Recent diagnosis with Covid infection on 08/05 History of recent aortic dissection repair History of dysphagia with PEG tube placement History of aortic valve replacement surgery with a bioprosthetic valve on 01/2020 History of coronary artery disease status post CABG and stenting History of stroke with residual dysarthria History of COPD on home oxygen 2 L/m Hypertension Hyperlipidemia History of dissecting descending aortic aneurysm surgical repair History of prostate cancer status post prostatectomy History of right lower leg DVT Alcoholic liver disease Chronic hepatitis C Plan: This is a pleasant 70 years old male who presents with gallstone and gallbladder disease status post laparoscopic cholecystectomy, started developing postoperative fever, GI and surgery team were consulted on follow their recommendation. Surgery is considered by surgical team, cardiology team on the case Continue with Zosyn for fever, check blood culture. Labs and medication were reviewed.. Continue same treatment. Continue with symptomatic treatment. Resume home medication. Monitor lytes and vitals. DVT and GI prophylaxis. Further recommendations depends on the clinical course of the patient DVT prophylaxis: Subcutaneous heparin GI Prophylaxis: Pepcid PT/OT: Pending Prognosis is guarded
[2020-08-24] MEDS: HYDROmorphone 1 MG/ML 1 ML SYRINGE IVP PRN (17:54)
[2020-08-24] MEDS: ATORVASTATIN 40 MG TAB PO SCH (20:19)
[2020-08-25] MEDS: LEVOTHYROXINE 50 MCG TAB PO SCH (05:42)
[2020-08-25] MEDS: PIPERACILLIN-TAZOBACTAM 3.375 GM in SODIUM CHLORIDE 0.9% 100 ML IVPB SCH ×3 (05:42→21:39)
--- NOTE | 2020-08-25 07:23 | XR ---
EXAMINATION TYPE: XR chest 1V DATE OF EXAM: 08/25/2020 COMPARISON: 08/22/2020 HISTORY: 70-year-old male follow-up cough TECHNIQUE: Single frontal view of the chest is obtained. FINDINGS: Median sternotomy wires are present with prosthetic aortic valve. Heart mildly enlarged. Diffuse inte rstitial densities are increased in the interval. Mild patchy retrocardiac opacity remains. No sizabl e effusion. Surgical clips at the high right axilla. IMPRESSION: 1. Mild cardiomegaly. 2. Increasing interstitial density. Correlation will be needed for developing interstitial pulmonary edema versus atypical pneumonias. 3. Stable patchy retrocardiac atelectasis/infiltrate.
[2020-08-25] MEDS: levETIRAcetam ORAL SOLN 500 MG/5 ML CUP PO SCH ×2 (08:24→21:39)
[2020-08-25] MEDS: METOPROLOL TARTRATE 12.5 MG TAB PO SCH (08:24)
[2020-08-25] MEDS: TORSEMIDE 20 MG TAB PO SCH (08:24)
[2020-08-25] MEDS: ASCORBIC ACID 500 MG TAB PO SCH (08:24)
[2020-08-25] MEDS: ZINC SULFATE 220 MG CAP PO SCH (08:24)
[2020-08-25] MEDS: HEPARIN SODIUM,PORCINE 5,000 UNIT/ML 1 ML VIAL SQ SCH (08:24)
[2020-08-25] MEDS: QUEtiapine 25 MG TAB PO SCH ×2 (08:24→21:40)
[2020-08-25] MEDS: NON FORMULARY DRUG (Cholecalciferol 1,000 UNIT Tab) PO SCH (08:25)
[2020-08-25] MEDS ORDERED: METOPROLOL TARTRATE 12.5 MG TAB PO ONE (08:45)
[2020-08-25] MEDS ORDERED: METOPROLOL TARTRATE 25 MG TAB PO SCH (09:00)
--- NOTE | 2020-08-25 10:35 | P.PN ---
Subjective Progress Note Date: 08/25/20 HISTORY OF PRESENT ILLNESS: Patient examined this morning the bedside. Patient is status post laparoscopic cholecystectomy with Dr. Mckeon on 08/20/2020. Patient continues to report abdominal pain. He continues to have some redness near trocar site on his abdomen. He is tolerating diet without nausea or vomiting. He denies chest pain or pressure. He denies shortness of breath. Blood pressure 113/65. Heart rate in the 80s. PHYSICAL EXAM: VITAL SIGNS: Reviewed. GENERAL: Well-developed in no acute distress. NECK: Supple. No JVD or thyromegaly LUNGS: Respirations even and unlabored. Lungs essentially clear to auscultation, diminished bilaterally. HEART: Irregular rate and rhythm. S1 and S2 heard. Systolic murmur noted. EXTREMITIES: Normal range of motion. No clubbing or cyanosis. Peripheral pulses intact. No lower extremity edema ASSESSMENT: Acute cholecystitis, status post laparoscopic cholecystectomy Transaminitis Coronary artery disease, status post PCI to proximal LAD 2017 Chronic persistent atrial fibrillation, on anticoagulation with Eliquis Valvular heart disease, status post bioprosthetic aortic valve replacement Hypertension Hyperlipidemia COPD Nicotine dependence Recent Covid 19 PLAN: Continue current cardiac medications Continue telemetry monitoring Case discussed with Dr. Mckeon who is agreeable to resuming anticoagulation. Will resume Eliquis this morning. Further recommendations pending patient's course Nurse practitioner note has been reviewed by physician. Signing provider agrees with the documented findings, assessment, and plan of care. Objective - Vital Signs Vital signs: Vital Signs Temp 98.8 F 08/25/20 09:49 Pulse 85 08/25/20 09:49 Resp 18 08/25/20 09:49 BP 113/65 08/25/20 09:49 Pulse Ox 97 08/25/20 09:49 Intake & Output 08/24/20 08/25/20 08/25/20 18:59 06:59 18:59 Intake Total 500 100 Balance 500 100 Intake: IV 500 Piperacillin-Tazobactam 3 100 .375 gm In Sodium Chloride 0.9% 100 ml @ 25 mls/hr IVPB Q8H JAYLA Rx#: [id number] Sodium Chloride 0.9% 1, 400 000 ml @ 50 mls/hr IV . Q20H JAYLA Rx#:[id number] Oral 100 Other: Voiding Method Toilet Toilet Toilet Urinal Urinal Urinal Diaper Diaper Diaper # Voids 1 # Bowel Movements 1 - Labs CBC & Chem 7: 08/24/20 06:10 08/24/20 06:10 Labs: Microbiology - Last 24 Hours (Table) 08/21/20 22:52 Blood Culture - Preliminary Blood No Growth after 72 hours
--- NOTE | 2020-08-25 12:07 | P.PN ---
Subjective Progress Note Date: 08/25/20 Principal diagnosis: Elevated LFTs, cholelithiasis She was seen and examined sitting up in the chair. He is without any acute changes through the night. Patient is status post cholecystectomy for acute cholecystitis. LFTs continue to improve. He does have some surgical pain and discomfort. He is eating well and tolerating his diet. Objective - Vital Signs Vital signs: Vital Signs Temp 98.8 F 08/25/20 09:49 Pulse 85 08/25/20 09:49 Resp 18 08/25/20 09:49 BP 113/65 08/25/20 09:49 Pulse Ox 97 08/25/20 09:49 Intake & Output 08/24/20 08/25/20 08/25/20 18:59 06:59 18:59 Intake Total 500 100 Balance 500 100 Intake: IV 500 Piperacillin-Tazobactam 3 100 .375 gm In Sodium Chloride 0.9% 100 ml @ 25 mls/hr IVPB Q8H JAYLA Rx#: [id number] Sodium Chloride 0.9% 1, 400 000 ml @ 50 mls/hr IV . Q20H JAYLA Rx#:[id number] Oral 100 Other: Voiding Method Toilet Toilet Toilet Urinal Urinal Urinal Diaper Diaper Diaper # Voids 1 # Bowel Movements 1 - Exam General appearance: The patient is alert, oriented, in no acute distress. HET: Head is normocephalic and atraumatic. Conjunctiva pink. Sclera anicteric. Neck: Supple without lymphadenopathy. Abdomen: Soft, dried blood at the umbilicus, surgical tenderness, PEG tube in p lace. nondistended with bowel sounds. No guarding or rigidity. Extremities: Normal skin color and turgor. No pedal edema Neurological: No focal deficits. Alert and oriented 3. - Labs CBC & Chem 7: 08/24/20 06:10 08/24/20 06:10 Labs: Microbiology - Last 24 Hours (Table) 08/21/20 22:52 Blood Culture - Preliminary Blood No Growth after 72 hours Assessment and Plan (1) Transaminitis Narrative/Plan: The patient who presented to the hospital with some abdominal pain and noted to have elevated serum transaminases with a history of heavy alcohol abuse for the last 40 years duration. Crush will history of hepatitis C in the past but patient cannot give us any further details. Ultrasound showed evidence of gallstones but no biliary ductal dilation. On review of records the patient was known to have mild elevation of serum transaminases for many years making it very likely he has underlying chronic liver disease possibly related to alcohol use. Possibility of CBD stone cannot be entirely excluded, given the clinical presentation. However the ultrasound did not show any evidence of dilated CBD. Hepatitis serologies ordered, patient negative for hepatitis A, B, and C. The patient is status post cholecystectomy Current Visit: Yes Status: Acute Code(s): R74.01 - ELEVATION OF LEVELS OF LIVER TRANSAMINASE LEVELS SNOMED Code(s): 172654721 (2) Abdominal pain Current Visit: Yes Status: Acute Code(s): R10.9 - UNSPECIFIED ABDOMINAL PAIN SNOMED Code(s): 26363568 (3) COVID-19 Current Visit: Yes Status: Acute Code(s): U07.1 - COVID-19 SNOMED Code(s): 575355508 (4) History of atrial fibrillation Narrative/Plan: Patient has a history of atrial fibrillation and coronary artery disease status post CABG in January 2020. Patient on [place] currently on hold. Current Visit: No Status: Acute Code(s): Z86.79 - PERSONAL HISTORY OF OTHER DISEASES OF THE CIRCULATORY SYSTEM SNOMED Code(s): 162230998 (5) Presence of externally removable percutaneous endoscopic gastrostomy (PEG) tube Narrative/Plan: Patient is status post coronary artery bypass grafting January 2020 status post trach and PEG tube placement. The patient still has panic and per the family member is not been using the PEG tube for feeds from his 2 months and would like to have it removed. Current Visit: Yes Status: Acute Code(s): Z93.1 - GASTROSTOMY STATUS SNOMED Code(s): 608910898 Plan: 1. Supportive care 2. Diet per surgery recommendations 3. Repeat LFTs in morning Thank you for this consultation we will be on standby. Please all us back if the patient wishes to proceed with PEG tube removal before discharge. Dr. Fountain I agree with the dictator's note, documented as a scribe by Meenu Lomeli.
[2020-08-25] MEDS: APIXABAN 5 MG TAB PO SCH ×2 (13:20→21:40)
--- NOTE | 2020-08-25 14:03 | P.PN ---
Subjective Progress Note Date: 08/25/20 CHIEF COMPLAINT: Weakness and hypotension HISTORY OF PRESENT ILLNESS: Patient seen and examined with Dr. Mckeon. Patient is status post laparoscopic cholecystectomy. Patient sitting up in bedside chair. He is tolerating diet. Afebrile. WBC 6.8 PHYSICAL EXAM: VITAL SIGNS: Reviewed. GENERAL: Well-developed in no acute distress. HEENT: No sclera icterus. Extraocular movements grossly intact. Moist buccal mucosa. Head is atraumatic, normocephalic. ABDOMEN: Soft. Nondistended. Epigastric incision site with mild erythema and induration. NEUROLOGIC: Sleeping comfortably ASSESSMENT: 1. Acute cholecystitis status post laparoscopic cholecystectomy 2. Mild cellulitis or hematoma at the epigastric trocar site PLAN: -Continue heart healthy, low fat diet -Continue to monitor -Antibiotics for medicine service -Continue pain medication as needed -Increase activity -Encouraged to use incentive spirometer -Okay to resume Eliquis for A. fib Physician Machine Bookkeeper note has been reviewed by physician. Signing provider agrees with the documented findings, assessment, and plan of care. Objective - Vital Signs Vital signs: Vital Signs Temp 98.8 F 08/25/20 09:49 Pulse 85 08/25/20 09:49 Resp 18 08/25/20 09:49 BP 113/65 08/25/20 09:49 Pulse Ox 97 08/25/20 09:49 Intake & Output 08/24/20 08/25/20 08/25/20 18:59 06:59 18:59 Intake Total 500 100 Balance 500 100 Intake: IV 500 Piperacillin-Tazobactam 3 100 .375 gm In Sodium Chloride 0.9% 100 ml @ 25 mls/hr IVPB Q8H JAYLA Rx#: [id number] Sodium Chloride 0.9% 1, 400 000 ml @ 50 mls/hr IV . Q20H JAYLA Rx#:[id number] Oral 100 Other: Voiding Method Toilet Toilet Toilet Urinal Urinal Urinal Diaper Diaper Diaper # Voids 1 # Bowel Movements 1 - Labs CBC & Chem 7: 08/24/20 06:10 08/24/20 06:10 Labs: Microbiology - Last 24 Hours (Table) 08/21/20 22:52 Blood Culture - Preliminary Blood No Growth after 72 hours
--- NOTE | 2020-08-25 14:35 | FL ---
EXAMINATION TYPE: FL barium swallow w video DATE OF EXAM: 08/25/2020 CLINICAL HISTORY: 70-year-old male with prior stroke, indwelling PEG tube, trouble swallowing, admitt ed with COVID pneumonia and flu. TECHNIQUE: Deglutition study is performed utilizing thin liquid barium, honey and nectar thick liqui d barium, and barium thick applesauce. Total fluoroscopy time: 1 minute 25 seconds. Total images: None. Real-time fluoroscopy support was provided to speech pathology. COMPARISON: None. FINDINGS: Severe vallecular and piriform sinus residuals are demonstrated. There is aspiration of thin and nect ar liquids during the swallow and aspiration of residuals of honey thick liquid and pureed consistenc ies. IMPRESSION: Severe residual and aspiration during the swallow of thin and nectar liquids. Aspiration of the resid uals of honey liquid and pureed consistencies. Please refer to speech therapist notes for further details if necessary.
--- NOTE | 2020-08-25 14:57 | P.PN ---
Subjective 70 years old male with past medical history of chronic atrial fibrillation, aortic valve replacement surgery with a bioprosthetic valve and 01/2020, coronary artery disease status post CABG and stenting, COPD on home oxygen at 2 L/m, history of CVA with residual dysarthria, hypertension, hyperlipidemia history of dissecting descending aortic aneurysm surgical repair, prostate cancer status post prostatectomy, previous history of right lower leg DVT, alcoholic liver cirrhosis, history of hepatitis C, dysphagia with previous history of PEG tube placement. He was recently discharged from this hospital 08/05-08/06 for acute Covid pneumonia That was reported low blood pressure on admission but since he is in the emergency room his blood pressure was around 106/58, he is afebrile and rest of his vitals are stable. Labs showing unremarkable CBC except for mild anemia with hemoglobin 12.2. INR is normal 1.0. BMP is unremarkable, lactic acid was elevated at 3.0 came back to normal 1.4, AST is elevated to 206, and ALT 265. Bilirubin is normal 0.6. Lipase is normal EKG showing atrial fibrillation at [address]-T changes. Gallbladder ultrasound: Large gallstone and no dilated ducts. No liver mass. Chest x-ray showing cardiomegaly no heart failure 08/20/2020 Patient looks confused with looks like his baseline, he still complains from RUQ pain and tenderness, PEG tube is in place Patient was nothing by mouth in the morning, Eliquis is on hold. Metoprolol is on hold due to hypotension on admission Surgery team on the case for the cholelithiasis with a large gallstone and echogenic bile and they are asking for cardiac preop evaluation, patient was found by cardiology team and is high-risk but there is no contraindication. He is currently on normal sinus 50 mL/h 08/21/2020 Patient is a status post laparoscopic cholecystectomy. Today is postoperative day #1. Patient is lying in bed not in distress however he is complaining of from tenderness at the surgical site of his abdomen. PEG tube is in place. Patient is found closely by surgery and gastroenterology team. Cardiology team also on the case. However later the evening patient started developing fever of 103. Patient was started on Zosyn and CT of the abdomen and pelvis is ordered. Also his blood pressure was on the low side 73/42 500 bolus of normal saline is provided and possible he will need another bolus. Also we will send for blood culture and procalcitonin. I talked to Benjamín bedside nurse over the phone and states the patient is confused at baseline he is oriented to himself, he does not complain of from chest pain or abdominal pain or discomfort no diarrhea and his breathing quietly. 08/22/2020 Patient developed high fever yesterday at 103. CT of the abdomen and pelvis with contrast showed small pneumoperitoneum consistent with recent abdominal surgery. With cholecystectomy. Postsurgical changes. Epigastric ventral h ernia containing transverse colon is also present on old CT But now continues the transverse colon. Gastrostomy tube in good position. Cardiomegaly. I discussed the case with surgery team, no further intervention is needed Chest x-ray from today showing bilateral basal pneumonia suspicious for re spiration. Continue Zosyn, follow-up culture. Consult for swallow evaluation discussed with staff Patient himself is awake and comfortable, is still have some expected abdominal pain from his surgery. really tachypneic. And he is saturating 94% on 3 L oxygen. CBC and BMP are stable with no leukocytosis Pro-calcitonin is slightly elevated at 0.13. Lower the dose of metoprolol from 25 3 times a day and to 12.5 twice a day and start gentle hydration with normal saline at 50 mL per hour 08/23/2020 Patient is lying in bed slightly tachypneic, no change clinically much from yesterday. He is saturating 92-95% and acetic acid oxygen via nasal cannula. No excision wheezing on exam CBC and BMP are unremarkable. Blood culture are still pending. Repeat chest x-ray tomorrow He remains on Zosyn. Pressure is still low normal side so keeping Toprol 21.5 mg twice a day 08/24/2020 Patient is more awake and alert, he has dysarthria at baseline. He does not have much respiratory symptoms but still complains from pain and tenderness in the right upper quadrant abdomen No more fever for the last 48 hours. Labs are stable. Blood culture no growth Recheck chest x-ray Surgery team suspecting mild cellulitis or infected hematoma at epigastric site, so they recommended to keep holding hold Eliquis for now and keep subcutaneous heparin Patient remains on Zosyn and normal saline at 50 mL per hour 08/25/2020 Patient has abdominal wall hematoma and patient is on Eliquis will discuss with general surgery to see if we need to hold this Eliquis. Patient is saturating 90% on 2 L of oxygen which we'll let. Down. Patient was evaluated by speech therapy and patient is aspirating everything patient will be made nothing by mouth again and patient was started back on the shoe feedings. Constitutional: Denied any fatigue denied any fever. Cardio vascular: denied any chest pain, palpitations Gastrointestinal denied any nausea vomiting Pulmonary: Denied any shortness of breath cough Neurologic denied any new focal deficits All inpatient medications were reviewed and appropriate changes in these medications as dictated in the interval history and assessment and plan. Objective - Vital Signs Vital signs: Vital Signs Temp 98.5 F 08/25/20 14:00 Pulse 84 08/25/20 14:00 Resp 18 08/25/20 14:00 BP 111/76 08/25/20 14:00 Pulse Ox 99 08/25/20 14:00 Intake & Output 08/24/20 08/25/20 08/25/20 18:59 06:59 18:59 Intake Total 500 100 Balance 500 100 Weight 83.915 kg Intake: IV 500 Piperacillin-Tazobactam 3 100 .375 gm In Sodium Chloride 0.9% 100 ml @ 25 mls/hr IVPB Q8H JAYLA Rx#: [id number] Sodium Chloride 0.9% 1, 400 000 ml @ 50 mls/hr IV . Q20H JAYLA Rx#:[id number] Oral 100 Other: Voiding Method Toilet Toilet Toilet Urinal Urinal Urinal Diaper Diaper Diaper # Voids 1 # Bowel Movements 1 - Exam PHYSICAL EXAMINATION: GENERAL: The patient is alert and oriented x3, not in any acute distress. Well developed, well nourished. HEENT: Pupils are round and equally reacting to light. EOMI. No scleral icterus. No conjunctival pallor. Normocephalic, atraumatic. No pharyngeal erythema. No thyromegaly. CARDIOVASCULAR: S1 and S2 present. No murmurs, rubs, or gallops. PULMONARY: Chest is clear to auscultation, no wheezing or crackles. ABDOMEN: She has abdominal wall hematoma with tenderness. MUSCULOSKELETAL: No joint swelling or deformity. EXTREMITIES: No cyanosis, clubbing, or pedal edema. NEUROLOGICAL: Gross neurological examination did not reveal any focal deficits. SKIN: No rashes. - Labs CBC & Chem 7: 08/24/20 06:10 08/24/20 06:10 Labs: Microbiology - Last 24 Hours (Table) 08/21/20 22:52 Blood Culture - Preliminary Blood No Growth after 72 hours Assessment and Plan Plan: elevated liver enzymes associated with Gallstone . Status post laparoscopic cholecystectomy on 08/20 Abdominal wall hematoma: Management as mentioned above Aspiration pneumonia and patient was evaluated by speech therapy patient has significant aspiration patient will be made nothing by mouth and will initiated on PEG tube feedings Chronic atrial fibrillation on Eliquis Recent diagnosis with Covid infection on 08/05 f recent aortic dissection repair dysphagia with PEG tube placement History of aortic valve replacement surgery with a bioprosthetic valve on 01/2020 coronary artery disease status with history of CABG and stenting History of stroke with residual dysarthria History of COPD on home oxygen 2 L/m Hypertension Hyperlipidemia History of dissecting descending aortic aneurysm surgical repair History of prostate cancer status post prostatectomy History of right lower leg DVT Alcoholic liver disease Chronic hepatitis C
[2020-08-25] MEDS: ATORVASTATIN 40 MG TAB PO SCH (21:40)
[2020-08-25] MEDS: SODIUM CHLORIDE 0.9% 1,000 ML IV SCH (21:40)
[2020-08-25] MEDS: METOPROLOL TARTRATE 25 MG TAB PO SCH (21:40)
[2020-08-26] MEDS: LEVOTHYROXINE 50 MCG TAB PO SCH (05:47)
[2020-08-26] MEDS: PIPERACILLIN-TAZOBACTAM 3.375 GM in SODIUM CHLORIDE 0.9% 100 ML IVPB SCH ×3 (05:47→20:31)
[2020-08-26 05:55] LABS: Glucose,Whole Blood 116 mg/dL (75-99)
[2020-08-26 06:41] LABS: HCT 32.2 % (39.0-53.0); HGB 10.4 gm/dL (13.0-17.5); Hypochromasia Slight; MCH 30.2 pg (25.0-35.0); MCHC 32.3 g/dL (31.0-37.0); MCV 93.5 fL (80.0-100.0); Mean Platelet Volume 8.1; Platelet Count 116 k/uL (150-450); RBC 3.44 m/uL (4.30-5.90); RDW 14.2 % (11.5-15.5); WBC 4.7 k/uL (3.8-10.6)
[2020-08-26] MEDS: APIXABAN 5 MG TAB PO SCH (08:43)
[2020-08-26] MEDS: TORSEMIDE 20 MG TAB PO SCH (08:43)
[2020-08-26] MEDS: METOPROLOL TARTRATE 25 MG TAB PO SCH ×2 (08:43→20:31)
[2020-08-26] MEDS: QUEtiapine 25 MG TAB PO SCH ×2 (08:43→20:31)
[2020-08-26] MEDS: levETIRAcetam ORAL SOLN 500 MG/5 ML CUP PO SCH ×2 (08:43→20:31)
[2020-08-26] MEDS: ASCORBIC ACID 500 MG TAB PO SCH (08:43)
[2020-08-26] MEDS: NON FORMULARY DRUG (Cholecalciferol 1,000 UNIT Tab) PO SCH (08:44)
[2020-08-26] MEDS: ZINC SULFATE 220 MG CAP PO SCH (08:44)
[2020-08-26 10:02] LABS: African American GFR (CKD) 109.3 (60.0-200.0); Anion Gap 8.3 mmol/L (4.00-12.00); BUN/Creat Ratio 11.43 Ratio (12.00-20.00); Calcium 8.4 mg/dL (8.7-10.3); Carbon Dioxide 29.7 mmol/L (21.6-31.8); Non-African American GFR(CKD) 94.3 (60.0-200.0); Potassium 3.6 mmol/L (3.5-5.5)
[2020-08-26 11:35] LABS: Glucose,Whole Blood 128 mg/dL (75-99)
[2020-08-26] MEDS ORDERED: VANCOMYCIN IV PER PHARMACY 1 EACH MISC MISCELLANE PRN (12:54)
--- NOTE | 2020-08-26 12:56 | P.PN ---
Subjective 70 years old male with past medical history of chronic atrial fibrillation, aortic valve replacement surgery with a bioprosthetic valve and 01/2020, coronary artery disease status post CABG and stenting, COPD on home oxygen at 2 L/m, history of CVA with residual dysarthria, hypertension, hyperlipidemia history of dissecting descending aortic aneurysm surgical repair, prostate cancer status post prostatectomy, previous history of right lower leg DVT, alcoholic liver cirrhosis, history of hepatitis C, dysphagia with previous history of PEG tube placement. He was recently discharged from this hospital 08/05-08/06 for acute Covid pneumonia That was reported low blood pressure on admission but since he is in the emergency room his blood pressure was around 106/58, he is afebrile and rest of his vitals are stable. Labs showing unremarkable CBC except for mild anemia with hemoglobin 12.2. INR is normal 1.0. BMP is unremarkable, lactic acid was elevated at 3.0 came back to normal 1.4, AST is elevated to 206, and ALT 265. Bilirubin is normal 0.6. Lipase is normal EKG showing atrial fibrillation at [address]-T changes. Gallbladder ultrasound: Large gallstone and no dilated ducts. No liver mass. Chest x-ray showing cardiomegaly no heart failure 08/20/2020 Patient looks confused with looks like his baseline, he still complains from RUQ pain and tenderness, PEG tube is in place Patient was nothing by mouth in the morning, Eliquis is on hold. Metoprolol is on hold due to hypotension on admission Surgery team on the case for the cholelithiasis with a large gallstone and echogenic bile and they are asking for cardiac preop evaluation, patient was found by cardiology team and is high-risk but there is no contraindication. He is currently on normal sinus 50 mL/h 08/21/2020 Patient is a status post laparoscopic cholecystectomy. Today is postoperative day #1. Patient is lying in bed not in distress however he is complaining of from tenderness at the surgical site of his abdomen. PEG tube is in place. Patient is found closely by surgery and gastroenterology team. Cardiology team also on the case. However later the evening patient started developing fever of 103. Patient was started on Zosyn and CT of the abdomen and pelvis is ordered. Also his blood pressure was on the low side 73/42 500 bolus of normal saline is provided and possible he will need another bolus. Also we will send for blood culture and procalcitonin. I talked to Benjamín bedside nurse over the phone and states the patient is confused at baseline he is oriented to himself, he does not complain of from chest pain or abdominal pain or discomfort no diarrhea and his breathing quietly. 08/22/2020 Patient developed high fever yesterday at 103. CT of the abdomen and pelvis with contrast showed small pneumoperitoneum consistent with recent abdominal surgery. With cholecystectomy. Postsurgical changes. Epigastric ventral h ernia containing transverse colon is also present on old CT But now continues the transverse colon. Gastrostomy tube in good position. Cardiomegaly. I discussed the case with surgery team, no further intervention is needed Chest x-ray from today showing bilateral basal pneumonia suspicious for re spiration. Continue Zosyn, follow-up culture. Consult for swallow evaluation discussed with staff Patient himself is awake and comfortable, is still have some expected abdominal pain from his surgery. really tachypneic. And he is saturating 94% on 3 L oxygen. CBC and BMP are stable with no leukocytosis Pro-calcitonin is slightly elevated at 0.13. Lower the dose of metoprolol from 25 3 times a day and to 12.5 twice a day and start gentle hydration with normal saline at 50 mL per hour 08/23/2020 Patient is lying in bed slightly tachypneic, no change clinically much from yesterday. He is saturating 92-95% and acetic acid oxygen via nasal cannula. No excision wheezing on exam CBC and BMP are unremarkable. Blood culture are still pending. Repeat chest x-ray tomorrow He remains on Zosyn. Pressure is still low normal side so keeping Toprol 21.5 mg twice a day 08/24/2020 Patient is more awake and alert, he has dysarthria at baseline. He does not have much respiratory symptoms but still complains from pain and tenderness in the right upper quadrant abdomen No more fever for the last 48 hours. Labs are stable. Blood culture no growth Recheck chest x-ray Surgery team suspecting mild cellulitis or infected hematoma at epigastric site, so they recommended to keep holding hold Eliquis for now and keep subcutaneous heparin Patient remains on Zosyn and normal saline at 50 mL per hour 08/25/2020 Patient has abdominal wall hematoma and patient is on Eliquis will discuss with general surgery to see if we need to hold this Eliquis. Patient is saturating 90% on 2 L of oxygen which we'll let. Down. Patient was evaluated by speech therapy and patient is aspirating everything patient will be made nothing by mouth again and patient was started back on the shoe feedings. 08/26/2020 Patient doesn't appear to have any hematoma but does appear to have abdominal wall cellulitis and maybe an abscess infectious disease is being consulted. Eliquis will be held for possible incision and drainage tomorrow Constitutional: Denied any fatigue denied any fever. Cardio vascular: denied any chest pain, palpitations Gastrointestinal denied any nausea vomiting still has significant abdominal pain Pulmonary: Denied any shortness of breath cough Neurologic denied any new focal deficits All inpatient medications were reviewed and appropriate changes in these medications as dictated in the interval history and assessment and plan. Objective - Vital Signs Vital signs: Vital Signs Temp 97.7 F 08/26/20 10:00 Pulse 69 08/26/20 10:00 Resp 20 08/26/20 10:00 BP 94/57 08/26/20 10:00 Pulse Ox 97 08/26/20 10:00 Intake & Output 08/25/20 08/26/20 08/26/20 18:59 06:59 18:59 Output Total 800 550 Balance -800 -550 Weight 83.915 kg 83.915 kg Output: Urine 800 550 Other: Voiding Method Toilet Urinal Urinal Urinal Diaper Diaper Diaper # Voids 2 1 # Bowel Movements 1 - Exam PHYSICAL EXAMINATION: GENERAL: The patient is alert and oriented x3, not in any acute distress. Well developed, well nourished. HEENT: Pupils are round and equally reacting to light. EOMI. No scleral icterus. No conjunctival pallor. Normocephalic, atraumatic. No pharyngeal erythema. No thyromegaly. CARDIOVASCULAR: S1 and S2 present. No murmurs, rubs, or gallops. PULMONARY: Chest is clear to auscultation, no wheezing or crackles. ABDOMEN: Significant tenderness and redness below the PEG tube site area there is some induration and maybe an abscess MUSCULOSKELETAL: No joint swelling or deformity. EXTREMITIES: No cyanosis, clubbing, or pedal edema. NEUROLOGICAL: Gross neurological examination did not reveal any focal deficits. SKIN: No rashes. - Labs CBC & Chem 7: 08/26/20 06:15 08/26/20 06:15 Labs: Abnormal Lab Results - Last 24 Hours (Table) 08/26/20 08/26/20 08/26/20 Range/Units 05:53 06:15 06:15 RBC 3.44 L (4.30-5.90) m/uL Hgb 10.4 L (13.0-17.5) gm/dL Hct 32.2 L (39.0-53.0) % Plt Count 116 L (150-450) k/uL BUN 8.0 L (9.0-27.0) mg/dL BUN/Creatinine Ratio 11.43 L (12.00-20.00) Ratio POC Glucose (mg/dL) 116 H (75-99) mg/dL Calcium 8.4 L (8.7-10.3) mg/dL 08/26/20 Range/Units 11:33 RBC (4.30-5.90) m/uL Hgb (13.0-17.5) gm/dL Hct (39.0-53.0) % Plt Count (150-450) k/uL BUN (9.0-27.0) mg/dL BUN/Creatinine Ratio (12.00-20.00) Ratio POC Glucose (mg/dL) 128 H (75-99) mg/dL Calcium (8.7-10.3) mg/dL Microbiology - Last 24 Hours (Table) 08/21/20 22:52 Blood Culture - Preliminary Blood No Growth after 96 hours Assessment and Plan Plan: elevated liver enzymes associated with Gallstone . Status post laparoscopic cholecystectomy on 08/20 Abdominal wall abscess or cellulitis: Infectious disease was consulted patient may need the vancomycin. Aspiration pneumonia and patient was evaluated by speech therapy patient has significant aspiration patient will be made nothing by mouth and will initiated on PEG tube feedings Chronic atrial fibrillation Eliquis will be held for possible abscesses drainage tomorrow Recent diagnosis with Covid infection on 08/05 f recent aortic dissection repair dysphagia with PEG tube placement History of aortic valve replacement surgery with a bioprosthetic valve on 01/2020 coronary artery disease status with history of CABG and stenting History of stroke with residual dysarthria History of COPD on home oxygen 2 L/m Hypertension Hyperlipidemia History of dissecting descending aortic aneurysm surgical repair History of prostate cancer status post prostatectomy History of right lower leg DVT Alcoholic liver disease Chronic hepatitis C
--- NOTE | 2020-08-26 13:23 | P.PN ---
Subjective Progress Note Date: 08/26/20 CHIEF COMPLAINT: Weakness and hypotension HISTORY OF PRESENT ILLNESS: Patient seen and examined with Dr. Mckeon. Patient is status post laparoscopic cholecystectomy. Patient sitting up in bedside chair. He is tolerating diet. Afebrile. WBC 4.7 On patient's swallow evaluated have signs of aspiration diet has been adjusted PHYSICAL EXAM: VITAL SIGNS: Reviewed. GENERAL: Well-developed in no acute distress. HEENT: No sclera icterus. Extraocular movements grossly intact. Moist buccal mucosa. Head is atraumatic, normocephalic. ABDOMEN: Soft. Nondistended. Epigastric incision site with erythema and induration. NEUROLOGIC: Sleeping comfortably ASSESSMENT: 1. Acute cholecystitis status post laparoscopic cholecystectomy 2. Mild abdominal wall cellulitis at the epigastric trocar site PLAN: -Consult Dr. Espinal for abdominal wall cellulitis -Continue heart healthy, low fat diet -Continue to monitor -Continue antibiotics -Continue pain medication as needed -Increase activity -Encouraged to use incentive spirometer -Recommend to hold Eliquis due to possible underlying abscess at the area of cellulitis at the epigastric trocar site. Physician Rn Correctional note has been reviewed by physician. Signing provider agrees with the documented findings, assessment, and plan of care. Objective - Vital Signs Vital signs: Vital Signs Temp 97.7 F 08/26/20 10:00 Pulse 69 08/26/20 10:00 Resp 20 08/26/20 10:00 BP 94/57 08/26/20 10:00 Pulse Ox 97 08/26/20 10:00 Intake & Output 08/25/20 08/26/20 08/26/20 18:59 06:59 18:59 Output Total 800 550 Balance -800 -550 Weight 83.915 kg 83.915 kg Output: Urine 800 550 Other: Voiding Method Toilet Urinal Urinal Urinal Diaper Diaper Diaper # Voids 2 1 # Bowel Movements 1 - Labs CBC & Chem 7: 08/26/20 06:15 08/26/20 06:15 Labs: Abnormal Lab Results - Last 24 Hours (Table) 08/26/20 08/26/20 08/26/20 Range/Units 05:53 06:15 06:15 RBC 3.44 L (4.30-5.90) m/uL Hgb 10.4 L (13.0-17.5) gm/dL Hct 32.2 L (39.0-53.0) % Plt Count 116 L (150-450) k/uL BUN 8.0 L (9.0-27.0) mg/dL BUN/Creatinine Ratio 11.43 L (12.00-20.00) Ratio POC Glucose (mg/dL) 116 H (75-99) mg/dL Calcium 8.4 L (8.7-10.3) mg/dL 08/26/20 Range/Units 11:33 RBC (4.30-5.90) m/uL Hgb (13.0-17.5) gm/dL Hct (39.0-53.0) % Plt Count (150-450) k/uL BUN (9.0-27.0) mg/dL BUN/Creatinine Ratio (12.00-20.00) Ratio POC Glucose (mg/dL) 128 H (75-99) mg/dL Calcium (8.7-10.3) mg/dL Microbiology - Last 24 Hours (Table) 08/21/20 22:52 Blood Culture - Preliminary Blood No Growth after 96 hours
--- NOTE | 2020-08-26 13:33 | P.PN ---
Subjective Progress Note Date: 08/26/20 HISTORY OF PRESENT ILLNESS: Patient is status post laparoscopic cholecystectomy with Dr. Mckeon on 08/20/2020. Patient examined at the bedside. He denies chest pain or pressure. He denies shortness of breath. Blood pressure 94/57. Heart rate in the 60s. PHYSICAL EXAM: VITAL SIGNS: Reviewed. GENERAL: Well-developed in no acute distress. NECK: Supple. No JVD or thyromegaly LUNGS: Respirations even and unlabored. Lungs essentially clear to auscultation, diminished bilaterally. HEART: Irregular rate and rhythm. S1 and S2 heard. Systolic murmur noted. EXTREMITIES: Normal range of motion. No clubbing or cyanosis. Peripheral pulses intact. No lower extremity edema ASSESSMENT: Acute cholecystitis, status post laparoscopic cholecystectomy Abdominal wall cellulitis at epigastric trocar site Transaminitis Coronary artery disease, status post PCI to proximal LAD 2017 Chronic persistent atrial fibrillation, on anticoagulation with Eliquis Valvular heart disease, status post bioprosthetic aortic valve replacement Hypertension Hyperlipidemia COPD Nicotine dependence Recent Covid 19 PLAN: Continue current cardiac medications Continue telemetry monitoring Case discussed with Dr. Mckeon who would like to hold anticoagulation now due to possible abscess formation at the epigastric trocar site. Will resume when cleared by general surgery. Further recommendations pending patient's course Nurse practitioner note has been reviewed by physician. Signing provider agrees with the documented findings, assessment, and plan of care. Objective - Vital Signs Vital signs: Vital Signs Temp 97.7 F 08/26/20 10:00 Pulse 69 08/26/20 10:00 Resp 20 08/26/20 10:00 BP 94/57 08/26/20 10:00 Pulse Ox 97 08/26/20 10:00 Intake & Output 08/25/20 08/26/20 08/26/20 18:59 06:59 18:59 Output Total 800 550 Balance -800 -550 Weight 83.915 kg 83.915 kg Output: Urine 800 550 Other: Voiding Method Toilet Urinal Urinal Urinal Diaper Diaper Diaper # Voids 2 1 # Bowel Movements 1 - Labs CBC & Chem 7: 08/26/20 06:15 08/26/20 06:15 Labs: Abnormal Lab Results - Last 24 Hours (Table) 08/26/20 08/26/20 08/26/20 Range/Units 05:53 06:15 06:15 RBC 3.44 L (4.30-5.90) m/uL Hgb 10.4 L (13.0-17.5) gm/dL Hct 32.2 L (39.0-53.0) % Plt Count 116 L (150-450) k/uL BUN 8.0 L (9.0-27.0) mg/dL BUN/Creatinine Ratio 11.43 L (12.00-20.00) Ratio POC Glucose (mg/dL) 116 H (75-99) mg/dL Calcium 8.4 L (8.7-10.3) mg/dL 08/26/20 Range/Units 11:33 RBC (4.30-5.90) m/uL Hgb (13.0-17.5) gm/dL Hct (39.0-53.0) % Plt Count (150-450) k/uL BUN (9.0-27.0) mg/dL BUN/Creatinine Ratio (12.00-20.00) Ratio POC Glucose (mg/dL) 128 H (75-99) mg/dL Calcium (8.7-10.3) mg/dL Microbiology - Last 24 Hours (Table) 08/21/20 22:52 Blood Culture - Preliminary Blood No Growth after 96 hours
[2020-08-26] MEDS: VANCOMYCIN 1,500 MG in SODIUM CHLORIDE 0.9% 250 ML IVPB SCH (14:20)
[2020-08-26 16:36] LABS: Glucose,Whole Blood 100 mg/dL (75-99)
--- NOTE | 2020-08-26 18:13 | CONS ---
CONSULTATION DATE OF SERVICE: 08/26/2020 REASON FOR CONSULTATION: Abdominal wound and cellulitis. HISTORY OF PRESENT ILLNESS: The patient is a 70-year-old male presenting to the ER at [facility] on August 18, 2020, for evaluation of increased weakness and low blood pressure. The patient's workup since he has been here has been suggestive of gallstone and possible cholecystitis. General Surgery saw the patient and the patient was taken to the OR on 08/20/2020. The patient is status post laparoscopic cholecystectomy. The patient did spike a fever on 08/21/2020 of 103 degrees Fahrenheit, for which the patient did have blood cultures drawn which have been negative so far. Patient was started on Zosyn and the patient's UA seems to have responded to it, as no fever has been recorded since then. He did have a normal white count. The patient did have a right upper quadrant port on the laparoscopy that did have some swelling and redness that has not completely resolved. That prompted this infectious disease consultation today. The patient himself is not a very good historian, so most of the information has been obtained from review of the chart. He now specifically denies having any chest pain. He did have some cough but no sputum. Did not mention any worsening abdominal pain and no diarrhea. REVIEW OF SYSTEMS: Positive points have been mentioned in the HPI. Rest of the systems are negative. PAST MEDICAL HISTORY: Atrial fibrillation, atrial flutter, coronary artery disease, COPD, CVA, TIA, DVT, gastroesophageal reflux disease, hyperlipidemia, hypertension, ascending aorta aneurysms. PAST SURGICAL HISTORY: Cardiac valve replacement, bypass surgery, PTCA with stent, hernia repair, EGD, colonoscopy. SOCIAL HISTORY: Remote history of smoking. No drinking or drug use. FAMILY HISTORY: Mother with history of diabetes. Father with history of congestive heart failure. ALLERGIES: NO KNOWN DRUG ALLERGIES. MEDICATIONS: The patient is currently on vitamin C, Lipitor, Dilaudid, Keppra, Synthroid, Lopressor, Narcan, Zosyn, Seroquel, Demadex, vancomycin added today, along with zinc sulfate. PHYSICAL EXAMINATION: Blood pressure 123/66, pulse of 72, temperature 98.2. He is 98% on 3 L nasal cannula. General description is an elderly male lying in bed in no distress. No tachypnea or accessory muscle of respiration use. HEENT: Examination shows slight pallor. No scleral icterus. Oral mucous membrane is dry. No pharyngeal erythema or thrush. NECK: Trachea is central. No thyromegaly. LUNGS: Unlabored breathing. Clear to auscultation anteriorly. HEART: Regular rate and rhythm. ABDOMEN: Soft. Right upper quadrant area did have an area of induration, swelling and redness that has been marked, though the redness seems to have receded. No drainage was noticed. EXTREMITIES: No edema of the feet. SKIN EXAMINATION: No rash or mass palpable. Neurologically the patient is awake, alert, oriented x3. Mood and affect normal. LABS: BUN of 8, creatinine 0.7, hemoglobin 10.4, white count 4.7. DIAGNOSTIC IMPRESSION AND PLAN: Patient with abdominal wall cellulitis from a laparoscopic port site with resolution with the Zosyn. Concern possibly for a Gram-positive skin bipin and will need to cover for MRSA to be the likely pathogen. The patient did have a postoperative fever that did respond to Zosyn initially, though. The CT scan done when he the fever on 08/22 did not show any evidence of intraabdominal abscess or abdominal wall abscess. PLAN: 1. Vancomycin, Pharmacy to dose, target of 15, while watching his kidney function closely. 2. the patient show overall improvement, may transition to a short course of doxycycline on discharge. Thank you for this consultation. Will follow this patient along with you. MMODL / IJN: [id number] /
[2020-08-26] MEDS: ATORVASTATIN 40 MG TAB PO SCH (20:31)
[2020-08-27 00:23] LABS: Glucose,Whole Blood 155 mg/dL (75-99)
[2020-08-27] MEDS: VANCOMYCIN 1,500 MG in SODIUM CHLORIDE 0.9% 250 ML IVPB SCH ×2 (02:34→13:04)
[2020-08-27 05:32] LABS: Glucose,Whole Blood 112 mg/dL (75-99)
[2020-08-27] MEDS: PIPERACILLIN-TAZOBACTAM 3.375 GM in SODIUM CHLORIDE 0.9% 100 ML IVPB SCH ×3 (06:10→23:36)
[2020-08-27] MEDS: LEVOTHYROXINE 50 MCG TAB PO SCH (06:10)
[2020-08-27] MEDS: ASCORBIC ACID 500 MG TAB PO SCH (09:09)
[2020-08-27] MEDS: METOPROLOL TARTRATE 25 MG TAB PO SCH ×2 (09:09→19:22)
[2020-08-27] MEDS: ZINC SULFATE 220 MG CAP PO SCH (09:09)
[2020-08-27] MEDS: levETIRAcetam ORAL SOLN 500 MG/5 ML CUP PO SCH ×2 (09:10→19:22)
[2020-08-27] MEDS: TORSEMIDE 20 MG TAB PO SCH (09:10)
[2020-08-27] MEDS: QUEtiapine 25 MG TAB PO SCH ×2 (09:10→19:22)
[2020-08-27] MEDS: NON FORMULARY DRUG (Cholecalciferol 1,000 UNIT Tab) PO SCH (09:10)
--- NOTE | 2020-08-27 10:45 | P.PN ---
Subjective Progress Note Date: 08/27/20 HISTORY OF PRESENT ILLNESS: Patient is status post laparoscopic cholecystectomy with Dr. Mckeon on 08/20/2020. Patient examined at the bedside. He denies chest pain or pressure. He denies shortness of breath. Blood pressure 139/70. Heart rate in 90s. He is afebrile. He is on 3 L nasal cannula with oxygen saturations greater than 92%. He continues to have erythema around epigastric trocar site. His Eliquis was discontinued yesterday. He is awaiting evaluation by general surgery for possible intervention. PHYSICAL EXAM: VITAL SIGNS: Reviewed. GENERAL: Well-developed in no acute distress. NECK: Supple. No JVD or thyromegaly LUNGS: Respirations even and unlabored. Lungs essentially clear to auscultation, diminished bilaterally. HEART: Irregular rate and rhythm. S1 and S2 heard. Systolic murmur noted. EXTREMITIES: Normal range of motion. No clubbing or cyanosis. Peripheral pulses intact. No lower extremity edema ASSESSMENT: Acute cholecystitis, status post laparoscopic cholecystectomy Abdominal wall cellulitis at epigastric trocar site Transaminitis Coronary artery disease, status post PCI to proximal LAD 2016 Chronic persistent atrial fibrillation, on anticoagulation with Eliquis Valvular heart disease, status post bioprosthetic aortic valve replacement Hypertension Hyperlipidemia COPD Nicotine dependence Recent Covid 19 PLAN: Continue current cardiac medications Continue telemetry monitoring Continue to hold Eliquis. Await evaluation from general surgery for possible surgical intervention of cellulitis/abscess formation at epigastric trocar site. Resume Eliquis when cleared by Dr. Mckeon Further recommendations pending patient's course Nurse practitioner note has been reviewed by physician. Signing provider agrees with the documented findings, assessment, and plan of care. Objective - Vital Signs Vital signs: Vital Signs Temp 98.3 F 08/27/20 09:15 Pulse 60 08/27/20 09:15 Resp 18 08/27/20 09:29 BP 99/61 08/27/20 09:15 Pulse Ox 91 L 08/27/20 09:15 Intake & Output 08/26/20 08/27/20 08/27/20 18:59 06:59 18:59 Intake Total 360 Output Total 300 Balance 360 -300 Weight 83.915 kg 85.5 kg Intake: Tube Feeding 360 Output: Urine 300 Other: Voiding Method Urinal Urinal Urinal Diaper Diaper Diaper # Voids 1 # Bowel Movements 1 - Labs CBC & Chem 7: 08/26/20 06:15 08/26/20 06:15 Labs: Abnormal Lab Results - Last 24 Hours (Table) 08/26/20 08/26/20 08/27/20 Range/Units 11:33 16:24 00:22 POC Glucose (mg/dL) 128 H 100 H 155 H (75-99) mg/dL 08/27/20 Range/Units 05:30 POC Glucose (mg/dL) 112 H (75-99) mg/dL Microbiology - Last 24 Hours (Table) 08/21/20 22:52 Blood Culture - Preliminary Blood No Growth after 120 hours
[2020-08-27 11:23] LABS: Glucose,Whole Blood 119 mg/dL (75-99)
--- NOTE | 2020-08-27 11:57 | P.PN ---
Subjective Progress Note Date: 08/27/20 HISTORY OF PRESENT ILLNESS This is a 70-year-old man treated for abdominal wound and cellulitis. He is st atus post cholecystectomy on August 20 and subsequently developed fever 103. Patient has tenderness at the port site right upper quadrant. He denies having any shortness of breath or cough. No nausea or vomiting. The patient has been afebrile since August 21. Heart rate 60, blood pressure 99/61, pulse ox 91% on 2 L nasal cannula. Blood culture no growth. Patient is currently on Zosyn and vancomycin. PHYSICAL EXAMINATION Gen: This is HEENT: Head is atraumatic, normocephalic. Pupils equal, round. Sclerae is anicteric. NECK: Supple. No JVD. No lymphadenopathy. LUNGS: Clear to auscultation. No wheezes or rhonchi. No intercostal retractions. HEART: Regular rate and rhythm. No murmur. ABDOMEN: Soft. Bowel sounds are present. No masses. Area of induration to the right upper quadrant was swelling and redness, tenderness. No active drainage. EXTREMITIES: No pedal edema. No calf tenderness. NEUROLOGICAL: Patient is awake, alert and oriented to person. ASSESSMENT Cellulitis from laparoscopic port site Cholecystectomy with post op fever No evidence of intra-abdominal abscess or abdominal wall abscess PLAN Continue IV antibiotics the form of Plan for doxycycline at the time of discharge If indurated area starts to drain, obtaining wound culture. Continue supportive care The above dictated assessment and findings were discussed with Dr. Espinal. The impression and plan of care have been directed as dictated. Jazzmine Celeste nurse practitioner acting as scribe for Dr. Espinal. Objective - Vital Signs Vital signs: Vital Signs Temp 98.0 F 08/27/20 05:23 Pulse 93 08/27/20 05:23 Resp 20 08/27/20 05:23 BP 139/70 08/27/20 05:23 Pulse Ox 98 08/27/20 05:23 Intake & Output 08/26/20 08/27/20 08/27/20 18:59 06:59 18:59 Intake Total 360 Output Total 300 Balance 360 -300 Weight 83.915 kg 85.5 kg Intake: Tube Feeding 360 Output: Urine 300 Other: Voiding Method Urinal Urinal Diaper Diaper # Voids 1 # Bowel Movements 1 - Labs CBC & Chem 7: 08/26/20 06:15 08/26/20 06:15 Labs: Abnormal Lab Results - Last 24 Hours (Table) 08/26/20 08/26/20 08/26/20 Range/Units 06:15 11:33 16:24 BUN 8.0 L (9.0-27.0) mg/dL BUN/Creatinine Ratio 11.43 L (12.00-20.00) Ratio POC Glucose (mg/dL) 128 H 100 H (75-99) mg/dL Calcium 8.4 L (8.7-10.3) mg/dL 08/27/20 08/27/20 Range/Units 00:22 05:30 BUN (9.0-27.0) mg/dL BUN/Creatinine Ratio (12.00-20.00) Ratio POC Glucose (mg/dL) 155 H 112 H (75-99) mg/dL Calcium (8.7-10.3) mg/dL Microbiology - Last 24 Hours (Table) 08/21/20 22:52 Blood Culture - Preliminary Blood No Growth after 120 hours
--- NOTE | 2020-08-27 12:41 | CDI ---
Documentation Clarification Form Date: 08/27/2020 CDS: Gisele EdwardsSAUL, CCDS Admit Date: 08/18/2020 20:53 Patient Name: Sylvain Duran Discharge Date: ATTENTION: The Clinical Documentation Specialists (CDI) and [facility] Coding Staff appreciate your assistance in clarifying documentation. Please respond to the clarification below the line at the bottom and electronically sign. The CDI & [facility] Coding staff will review the response and follow-up if needed. Please note: Queries are made part of the Legal Health Record. If you have any questions, please contact the author of this message via ITS. Dear Dr. Santana Mckeon: Per the 08/24 GI Progress Note: "Severe right upper quadrant abdominal pain with cellulitis at the incision site in the right upper quadrant area." Per the 08/25 Surgery Progress Note: "Acute cholecystitis status post laparoscopic cholecystectomy. Mild abdominal wall cellulitis at the epigastric trocar site." Patients Admitting Diagnosis: Cholelithiasis with US showing large gallstone and echogenic bile. Elevated LFTs. Recent diagnosis of COVID 19 on 08/05. History: Dysphagia with PEG tube, possible Hepatitis C in past, Chronic Liver Disease possibly from Alcohol use/abuse. Chronic Atrial Fibrillation on Eliquis, CAD status post CABG January/2020. Hypertension, Hypercholesterolemia, GERD. Post-Operative Diagnosis: Acute Cholecystitis Procedure 08/20: Laparoscopic Cholecystectomy Clinical Indicators: Presented to the ED on 08/18 with weakness, low blood pressure & recent hospitalization with COVID. Elevated transaminitis, US: Gallstone. Developed cellulitis of abdominal wall at epigastric trocar site as described above, Hematoma was ruled out per the attending physician. Treatment: 08/20: IV Cefazolin, IV Zosyn added 08/22, po Eliquis continued. IV Vancomycin added 08/26. Consults: 08/26 Infectious Disease: Abdominal wall cellulitis from a laparoscopic port site with ____ resolution with Zosyn. Concern for a Gram-Positive skin bipin and will need to cover for MRSA likely pathogen. The patient also had a postoperative fever that did respond to Zosyn initially. CT Abdomen 08/22: did not show evidence of an intra-abdominal abscess. In order to accurately reflect this patients severity of illness, please clarify if the abdominal wall cellulitis is due to the recent surgery (Laparoscopic Cholecystectomy): -is a complication of surgical procedure -is an expected outcome of the surgical procedure -is related to co-morbid condition(s) of: (please specify): -Other please specify: -Unable to determine (Last Revision: September 2019) Unable to determine MTDD
--- NOTE | 2020-08-27 13:54 | P.OP ---
Date of Procedure: 08/27/20 Preoperative Diagnosis: Abdominal wall abscess Postoperative Diagnosis: Abdominal wall abscess Procedure(s) Performed: Incision and drainage of abdominal wall abscess Anesthesia: local Surgeon: Santana Mckeon Estimated Blood Loss (ml): 2 Pathology: other (Culture) Condition: stable Disposition: floor Description of Procedure: Patient's placed on his bed in supine position. The epigastric trocar site was anesthetized 1% local Xylocaine. Using 11 blade the skin was incised. Prostate 10 mL of purulent fluid was removed. The wound was cultured. Sterile dressing applied. Patient tolerated the procedure well.
--- NOTE | 2020-08-27 14:16 | P.PN ---
Subjective Progress Note Date: 08/27/20 CHIEF COMPLAINT: Weakness and hypotension HISTORY OF PRESENT ILLNESS: Patient seen and examined with Dr. Mckeon. Patient is status post laparoscopic cholecystectomy. Patient sitting up in bedside chair. He is tolerating diet. Patient had developed cellulitis and abdominal wall abscess at the epigastric trocar site. Patient status post a bedside incision and drainage of the abdominal wall abscess today with Dr. Mckeon. Patient had a small amount of pus drained from incision site. Cultures were obtained. Patient has been seen by infectious disease he is currently on vancomycin and Zosyn. Afebrile. WBC 4.7 PHYSICAL EXAM: VITAL SIGNS: Reviewed. GENERAL: Well-developed in no acute distress. HEENT: No sclera icterus. Extraocular movements grossly intact. Moist buccal mucosa. Head is atraumatic, normocephalic. ABDOMEN: Soft. Nondistended. Epigastric incision site with erythema and induration. NEUROLOGIC: Sleeping comfortably ASSESSMENT: 1. Acute cholecystitis status post laparoscopic cholecystectomy 2. Mild abdominal wall cellulitis with abscess at the epigastric trocar site. Patient is status post incision and drainage at bedside. PLAN: -Continue antibiotics per ID -Follow up on culture results from I&D -Increase activity -Encouraged to use incentive spirometer Physician General Superintendent note has been reviewed by physician. Signing provider agrees with the documented findings, assessment, and plan of care. Objective - Vital Signs Vital signs: Vital Signs Temp 98.3 F 08/27/20 09:15 Pulse 60 08/27/20 09:15 Resp 18 08/27/20 09:29 BP 99/61 08/27/20 09:15 Pulse Ox 91 L 08/27/20 09:15 Intake & Output 08/26/20 08/27/20 08/27/20 18:59 06:59 18:59 Intake Total 360 360 Output Total 300 Balance 360 60 Weight 83.915 kg 85.5 kg Intake: Tube Feeding 360 360 Output: Urine 300 Other: Voiding Method Urinal Urinal Urinal Diaper Diaper Diaper # Voids 1 # Bowel Movements 1 - Labs CBC & Chem 7: 08/26/20 06:15 08/26/20 06:15 Labs: Abnormal Lab Results - Last 24 Hours (Table) 08/26/20 08/27/20 08/27/20 Range/Units 16:24 00:22 05:30 POC Glucose (mg/dL) 100 H 155 H 112 H (75-99) mg/dL 08/27/20 Range/Units 11:21 POC Glucose (mg/dL) 119 H (75-99) mg/dL Microbiology - Last 24 Hours (Table) 08/21/20 22:52 Blood Culture - Preliminary Blood No Growth after 120 hours
[2020-08-27 16:42] LABS: Glucose,Whole Blood 121 mg/dL (75-99)
[2020-08-27] MEDS: APIXABAN 5 MG TAB PO SCH (19:22)
[2020-08-27] MEDS: ATORVASTATIN 40 MG TAB PO SCH (19:22)
[2020-08-28 01:02] LABS: Glucose,Whole Blood 120 mg/dL (75-99)
--- NOTE | 2020-08-28 02:15 | P.PN ---
Subjective Progress Note Date: 08/27/20 70 years old male with past medical history of chronic atrial fibrillation, aortic valve replacement surgery with a bioprosthetic valve and 01/2020, coronary artery disease status post CABG and stenting, COPD on home oxygen at 2 L/m, history of CVA with residual dysarthria, hypertension, hyperlipidemia history of dissecting descending aortic aneurysm surgical repair, prostate cancer status post prostatectomy, previous history of right lower leg DVT, alcoholic liver cirrhosis, history of hepatitis C, dysphagia with previous history of PEG tube placement. He was recently discharged from this hospital 08/05-08/06 for acute Covid pneumonia That was reported low blood pressure on admission but since he is in the emergency room his blood pressure was around 106/58, he is afebrile and rest of his vitals are stable. Labs showing unremarkable CBC except for mild anemia with hemoglobin 12.2. INR is normal 1.0. BMP is unremarkable, lactic acid was elevated at 3.0 came back to normal 1.4, AST is elevated to 206, and ALT 265. Bilirubin is normal 0.6. Lipase is normal EKG showing atrial fibrillation at [address]-T changes. Gallbladder ultrasound: Large gallstone and no dilated ducts. No liver mass. Chest x-ray showing cardiomegaly no heart failure 08/20/2020 Patient looks confused with looks like his baseline, he still complains from RUQ pain and tenderness, PEG tube is in place Patient was nothing by mouth in the morning, Eliquis is on hold. Metoprolol is on hold due to hypotension on admission Surgery team on the case for the cholelithiasis with a large gallstone and echo genic bile and they are asking for cardiac preop evaluation, patient was found by cardiology team and is high-risk but there is no contraindication. He is currently on normal sinus 50 mL/h 08/21/2020 Patient is a status post laparoscopic cholecystectomy. Today is postoperative day #1. Patient is lying in bed not in distress however he is complaining of from tenderness at the surgical site of his abdomen. PEG tube is in place. Patient is found closely by surgery and gastroenterology team. Cardiology team also on the case. However later the evening patient started developing fever of 103. Patient was started on Zosyn and CT of the abdomen and pelvis is ordered. Also his blood pressure was on the low side 73/42 500 bolus of normal saline is provided and possible he will need another bolus. Also we will send for blood culture and procalcitonin. I talked to Benjamín bedside nurse over the phone and states the patient is confused at baseline he is oriented to himself, he does not complain of from chest pain or abdominal pain or discomfort no diarrhea and his breathing quietly. 08/22/2020 Patient developed high fever yesterday at 103. CT of the abdomen and pelvis with contrast showed small pneumoperitoneum consistent with recent abdominal surgery. With cholecystectomy. Postsurgical changes. Epigastric ventral hernia containing transverse colon is also present on old CT But now continues the transverse colon. Gastrostomy tube in good position. Cardiomegaly. I disc ussed the case with surgery team, no further intervention is needed Chest x-ray from today showing bilateral basal pneumonia suspicious for respiration. Continue Zosyn, follow-up culture. Consult for swallow evaluation discussed with staff Patient himself is awake and comfortable, is still have some expected abdominal pain from his surgery. really tachypneic. And he is saturating 94% on 3 L ox ygen. CBC and BMP are stable with no leukocytosis Pro-calcitonin is slightly elevated at 0.13. Lower the dose of metoprolol from 25 3 times a day and to 12.5 twice a day and start gentle hydration with normal saline at 50 mL per hour 08/23/2020 Patient is lying in bed slightly tachypneic, no change clinically much from yesterday. He is saturating 92-95% and acetic acid oxygen via nasal cannula. No excision wheezing on exam CBC and BMP are unremarkable. Blood culture are still pending. Repeat chest x-ray tomorrow He remains on Zosyn. Pressure is still low normal side so keeping Toprol 21.5 mg twice a day 08/24/2020 Patient is more awake and alert, he has dysarthria at baseline. He does not have much respiratory symptoms but still complains from pain and tenderness in the right upper quadrant abdomen No more fever for the last 48 hours. Labs are stable. Blood culture no growth Recheck chest x-ray Surgery team suspecting mild cellulitis or infected hematoma at epigastric site, so they recommended to keep holding hold Eliquis for now and keep subcutaneous heparin Patient remains on Zosyn and normal saline at 50 mL per hour 08/25/2020 Patient has abdominal wall hematoma and patient is on Eliquis will discuss with general surgery to see if we need to hold this Eliquis. Patient is saturating 90% on 2 L of oxygen which we'll let. Down. Patient was evaluated by monty pate and patient is aspirating everything patient will be made nothing by mouth again and patient was started back on tube feedings. 08/26/2020 Patient doesn't appear to have any hematoma but does appear to have abdominal wall cellulitis and maybe an abscess infectious disease is being consulted. Eliquis will be held for possible incision and drainage tomorrow 08/27/2020 Patient continues with abdominal wall redness noted on the left with tenderness on palpation. Surgery planning I&D. Infectious disease following and patient is maintained on Zosyn and vancomycin. Will resume eliquis after procedure. Patient to be evaluated by PT/OT as he continues to be weak. Patient has [employer] insurance an d will discuss with case management and social work about discharge plan. Given multiple complex medical issues and possible antibiotics therapy upon discharge may benefit from OMERO. Constitutional: Denied any fatigue denied any fever. Cardio vascular: denied any chest pain, palpitations Gastrointestinal denied any nausea vomiting still has significant abdominal pain Pulmonary: Denied any shortness of breath cough Neurologic denied any new focal deficits All inpatient medications were reviewed and appropriate changes in these medications as dictated in the interval history and assessment and plan. Objective - Vital Signs Vital signs: Vital Signs Temp 98.3 F 08/27/20 09:15 Pulse 60 08/27/20 09:15 Resp 18 08/27/20 09:29 BP 99/61 08/27/20 09:15 Pulse Ox 91 L 08/27/20 09:15 Intake & Output 08/26/20 08/27/20 08/27/20 18:59 06:59 18:59 Intake Total 360 Output Total 300 Balance 360 -300 Weight 83.915 kg 85.5 kg Intake: Tube Feeding 360 Output: Urine 300 Other: Voiding Method Urinal Urinal Urinal Diaper Diaper Diaper # Voids 1 # Bowel Movements 1 - Exam GENERAL: The patient is alert and oriented x3, not in any acute distress. Well developed, well nourished. Lethargic although arousable HEENT: Pupils are round and equally reacting to light. EOMI. No scleral icterus. No conjunctival pallor. Normocephalic, atraumatic. No pharyngeal erythema. No thyromegaly. CARDIOVASCULAR: S1 and S2 present. No murmurs, rubs, or gallops. PULMONARY: Chest is clear to auscultation, no wheezing or crackles. ABDOMEN: Significant tenderness and redness below the PEG tube site area there is some induration and maybe an abscess noted on the left lower quadrant MUSCULOSKELETAL: No joint swelling or deformity. EXTREMITIES: No cyanosis, clubbing, or pedal edema. NEUROLOGICAL: Gross neurological examination did not reveal any focal deficits. SKIN: No rashes. - Labs CBC & Chem 7: 08/26/20 06:15 08/26/20 06:15 Labs: Abnormal Lab Results - Last 24 Hours (Table) 08/26/20 08/26/20 08/27/20 Range/Units 11:33 16:24 00:22 POC Glucose (mg/dL) 128 H 100 H 155 H (75-99) mg/dL 08/27/20 Range/Units 05:30 POC Glucose (mg/dL) 112 H (75-99) mg/dL Microbiology - Last 24 Hours (Table) 08/21/20 22:52 Blood Culture - Preliminary Blood No Growth after 120 hours Assessment and Plan Assessment: elevated liver enzymes associated with Gallstone . Status post laparoscopic cholecystectomy on 08/20 Abdominal wall abscess or cellulitis: Infectious disease following and patient on zosyn and vancomycin. Aspiration pneumonia and patient was evaluated by speech therapy patient has significant aspiration patient will be made nothing by mouth and will initiated on PEG tube feedings Chronic atrial fibrillation Eliquis will be held for possible abscesses drainage today and will resume after Recent diagnosis with Covid infection on 08/05 recent aortic dissection repair dysphagia with PEG tube placement, resumed tube feedings History of aortic valve replacement surgery with a bioprosthetic valve on 01/2020 coronary artery disease status with history of CABG and stenting History of stroke with residual dysarthria History of COPD on home oxygen 2 L/m Hypertension Hyperlipidemia History of dissecting descending aortic aneurysm surgical repair History of prostate cancer status post prostatectomy History of right lower leg DVT Alcoholic liver disease Chronic hepatitis C Plan: Continue current medications. Multiple medical consultations following. PT/OT to evaluate as well as patient continues to be weak and may possibly require OMERO. Possible I&D of abdominal abscess with surgery today. Continue with IV zosyn and vancomycin. Will resume Eliquis. Will discuss with case management and social work about discharge planning needs. Will repeat am labs and continue to monitor.
[2020-08-28] MEDS: VANCOMYCIN 1,500 MG in SODIUM CHLORIDE 0.9% 250 ML IVPB SCH ×2 (03:00→14:23)
[2020-08-28] MEDS: LEVOTHYROXINE 50 MCG TAB PO SCH (05:18)
[2020-08-28] MEDS: PIPERACILLIN-TAZOBACTAM 3.375 GM in SODIUM CHLORIDE 0.9% 100 ML IVPB SCH ×3 (05:46→21:01)
[2020-08-28 05:55] LABS: Glucose,Whole Blood 116 mg/dL (75-99)
[2020-08-28 06:29] LABS: Basophils % (A) 1 %; Eosinophils # (A) 0.2 k/uL (0-0.7); Eosinophils % (A) 5 %; HGB 10.7 gm/dL (13.0-17.5); Lymphocytes # (A) 0.8 k/uL (1.0-4.8); Lymphocytes % (A) 22 %; MCHC 31.6 g/dL (31.0-37.0); Mean Platelet Volume 7.8; Monocytes # (A) 0.2 k/uL (0-1.0); Monocytes % (A) 6 %; Neutrophils # (A) 2.5 k/uL (1.3-7.7); Neutrophils % (A) 64 %; Platelet Count 138 k/uL (150-450); RBC 3.69 m/uL (4.30-5.90); RDW 14.6 % (11.5-15.5); WBC 3.8 k/uL (3.8-10.6)
[2020-08-28] MEDS: ZINC SULFATE 220 MG CAP PO SCH (08:43)
[2020-08-28] MEDS: TORSEMIDE 20 MG TAB PO SCH (08:43)
[2020-08-28] MEDS: METOPROLOL TARTRATE 25 MG TAB PO SCH ×2 (08:43→20:25)
[2020-08-28] MEDS: ASCORBIC ACID 500 MG TAB PO SCH (08:43)
[2020-08-28] MEDS: APIXABAN 5 MG TAB PO SCH ×2 (08:43→20:25)
[2020-08-28] MEDS: NON FORMULARY DRUG (Cholecalciferol 1,000 UNIT Tab) PO SCH (08:44)
[2020-08-28] MEDS: levETIRAcetam ORAL SOLN 500 MG/5 ML CUP PO SCH ×2 (08:44→20:24)
[2020-08-28] MEDS: QUEtiapine 25 MG TAB PO SCH ×2 (08:44→20:25)
[2020-08-28 09:38] LABS: African American GFR (CKD) 109.3 (60.0-200.0); Anion Gap 5.5 mmol/L (4.00-12.00); BUN/Creat Ratio 12.86 Ratio (12.00-20.00); Calcium 8.7 mg/dL (8.7-10.3); Carbon Dioxide 35.5 mmol/L (21.6-31.8); Non-African American GFR(CKD) 94.3 (60.0-200.0); Potassium 3.7 mmol/L (3.5-5.5)
[2020-08-28 11:12] LABS: Glucose,Whole Blood 132 mg/dL (75-99)
--- NOTE | 2020-08-28 11:23 | P.PN ---
Subjective Progress Note Date: 08/28/20 CHIEF COMPLAINT: Weakness and hypotension HISTORY OF PRESENT ILLNESS: Patient is status post laparoscopic cholecystectomy on 08/20/20. Patient had developed cellulitis and abdominal wall abscess at the epigastric trocar site. Patient status post a bedside incision and drainage of the abdominal wall abscess yesterday with Dr. Mckeon. Patient has had improvement in the abdominal wall cellulitis and abscess. He is maintained on antibiotics. Afebrile WBC 3.8 culture from abscess fluid pending PHYSICAL EXAM: VITAL SIGNS: Reviewed. GENERAL: Well-developed in no acute distress. HEENT: No sclera icterus. Extraocular movements grossly intact. Moist buccal mucosa. Head is atraumatic, normocephalic. ABDOMEN: Soft. Nondistended. Epigastric incision site with erythema and induration improving NEUROLOGIC: Sleeping comfortably ASSESSMENT: 1. Acute cholecystitis status post laparoscopic cholecystectomy 2. Mild abdominal wall cellulitis with abscess at the epigastric trocar site. Patient is status post incision and drainage at bedside. PLAN: -Continue antibiotics per ID -Follow up on culture results from I&D -Increase activity -Encouraged to use incentive spirometer -Patient can be discharge from surgical standpoint Physician Alternative Financing Specialist note has been reviewed by physician. Signing provider agrees with the documented findings, assessment, and plan of care. Objective - Vital Signs Vital signs: Vital Signs Temp 97.8 F 08/28/20 09:41 Pulse 92 08/28/20 09:41 Resp 18 08/28/20 09:41 BP 90/54 08/28/20 09:41 Pulse Ox 93 L 08/28/20 09:41 Intake & Output 08/27/20 08/28/20 08/28/20 18:59 06:59 18:59 Intake Total 1050 Output Total 300 250 Balance 750 -250 Weight 85 kg Intake: Tube Feeding 1050 Output: Urine 300 250 Other: Voiding Method Urinal Urinal Urinal Diaper Diaper Diaper # Voids 1 # Bowel Movements 1 - Labs CBC & Chem 7: 08/28/20 05:56 08/28/20 05:56 Labs: Abnormal Lab Results - Last 24 Hours (Table) 08/27/20 08/27/20 08/28/20 Range/Units 11:21 16:41 01:00 RBC (4.30-5.90) m/uL Hgb (13.0-17.5) gm/dL Hct (39.0-53.0) % Plt Count (150-450) k/uL Lymphocytes # (1.0-4.8) k/uL Carbon Dioxide (21.6-31.8) mmol/L Glucose (70-110) mg/dL POC Glucose (mg/dL) 119 H 121 H 120 H (75-99) mg/dL 08/28/20 08/28/20 08/28/20 Range/Units 05:53 05:56 05:56 RBC 3.69 L (4.30-5.90) m/uL Hgb 10.7 L (13.0-17.5) gm/dL Hct 34.0 L (39.0-53.0) % Plt Count 138 L (150-450) k/uL Lymphocytes # 0.8 L (1.0-4.8) k/uL Carbon Dioxide 35.5 H (21.6-31.8) mmol/L Glucose 125 H (70-110) mg/dL POC Glucose (mg/dL) 116 H (75-99) mg/dL 08/28/20 Range/Units 11:05 RBC (4.30-5.90) m/uL Hgb (13.0-17.5) gm/dL Hct (39.0-53.0) % Plt Count (150-450) k/uL Lymphocytes # (1.0-4.8) k/uL Carbon Dioxide (21.6-31.8) mmol/L Glucose (70-110) mg/dL POC Glucose (mg/dL) 132 H (75-99) mg/dL Microbiology - Last 24 Hours (Table) 08/27/20 12:00 Gram Stain - Preliminary Abdomen Wound Culture - Preliminary 08/21/20 22:52 Blood Culture - Final Blood No Growth after 144 hours
--- NOTE | 2020-08-28 11:28 | P.PN ---
Subjective Progress Note Date: 08/28/20 HISTORY OF PRESENT ILLNESS: Patient is status post laparoscopic cholecystectomy with Dr. Mckeon on 08/20/2020. Patient also underwent bedside incision and drainage yesterday of abdominal wall abscess with 10 mL of purulent fluid removed. Cultures are currently pending. Patients Eliquis has been resumed. Patient denies chest pain or pressure. Denies shortness of breath. Blood pressure 90/54. Heart rate in the 90s. He is on 2 L nasal cannula with oxygen saturations greater than 92%. He is afebrile. PHYSICAL EXAM: VITAL SIGNS: Reviewed. GENERAL: Well-developed in no acute distress. NECK: Supple. No JVD or thyromegaly LUNGS: Respirations even and unlabored. Lungs essentially clear to auscultation, diminished bilaterally. HEART: Irregular rate and rhythm. S1 and S2 heard. Systolic murmur noted. EXTREMITIES: Normal range of motion. No clubbing or cyanosis. Peripheral pulses intact. No lower extremity edema ASSESSMENT: Acute cholecystitis, status post laparoscopic cholecystectomy Abdominal wall cellulitis at epigastric trocar site Transaminitis Coronary artery disease, status post PCI to proximal LAD 2017 Chronic persistent atrial fibrillation, on anticoagulation with Eliquis Valvular heart disease, status post bioprosthetic aortic valve replacement Hypertension Hyperlipidemia COPD Nicotine dependence Recent Covid 19 PLAN: Continue current cardiac medications Continue telemetry monitoring Continue Eliquis for anticoagulation Patient is currently stable from a cardiac perspective. We will follow on an as-needed basis. Please call with questions or concerns. Nurse practitioner note has been reviewed by physician. Signing provider agrees with the documented findings, assessment, and plan of care. Objective - Vital Signs Vital signs: Vital Signs Temp 97.8 F 08/28/20 09:41 Pulse 92 08/28/20 09:41 Resp 18 08/28/20 09:41 BP 90/54 08/28/20 09:41 Pulse Ox 93 L 08/28/20 09:41 Intake & Output 08/27/20 08/28/20 08/28/20 18:59 06:59 18:59 Intake Total 1050 Output Total 300 250 Balance 750 -250 Weight 85 kg Intake: Tube Feeding 1050 Output: Urine 300 250 Other: Voiding Method Urinal Urinal Urinal Diaper Diaper Diaper # Voids 1 # Bowel Movements 1 - Labs CBC & Chem 7: 08/28/20 05:56 08/28/20 05:56 Labs: Abnormal Lab Results - Last 24 Hours (Table) 08/27/20 08/28/20 08/28/20 Range/Units 16:41 01:00 05:53 RBC (4.30-5.90) m/uL Hgb (13.0-17.5) gm/dL Hct (39.0-53.0) % Plt Count (150-450) k/uL Lymphocytes # (1.0-4.8) k/uL Carbon Dioxide (21.6-31.8) mmol/L Glucose (70-110) mg/dL POC Glucose (mg/dL) 121 H 120 H 116 H (75-99) mg/dL 08/28/20 08/28/20 08/28/20 Range/Units 05:56 05:56 11:05 RBC 3.69 L (4.30-5.90) m/uL Hgb 10.7 L (13.0-17.5) gm/dL Hct 34.0 L (39.0-53.0) % Plt Count 138 L (150-450) k/uL Lymphocytes # 0.8 L (1.0-4.8) k/uL Carbon Dioxide 35.5 H (21.6-31.8) mmol/L Glucose 125 H (70-110) mg/dL POC Glucose (mg/dL) 132 H (75-99) mg/dL Microbiology - Last 24 Hours (Table) 08/27/20 12:00 Gram Stain - Preliminary Abdomen Wound Culture - Preliminary 08/21/20 22:52 Blood Culture - Final Blood No Growth after 144 hours
[2020-08-28 12:22] VITALS: BMI 27.6
[2020-08-28] MEDS ORDERED: VANCOMYCIN TROUGH DUE 1 EACH MISC MISCELLANE ONE (13:00)
--- NOTE | 2020-08-28 14:09 | P.PN ---
Subjective Progress Note Date: 08/28/20 70 years old male with past medical history of chronic atrial fibrillation, aortic valve replacement surgery with a bioprosthetic valve and 01/2020, coronary artery disease status post CABG and stenting, COPD on home oxygen at 2 L/m, history of CVA with residual dysarthria, hypertension, hyperlipidemia history of dissecting descending aortic aneurysm surgical repair, prostate cancer status post prostatectomy, previous history of right lower leg DVT, alcoholic liver cirrhosis, history of hepatitis C, dysphagia with previous history of PEG tube placement. He was recently discharged from this hospital 08/05-08/06 for acute Covid pneumonia That was reported low blood pressure on admission but since he is in the emergency room his blood pressure was around 106/58, he is afebrile and rest of his vitals are stable. Labs showing unremarkable CBC except for mild anemia with hemoglobin 12.2. INR is normal 1.0. BMP is unremarkable, lactic acid was elevated at 3.0 came back to normal 1.4, AST is elevated to 206, and ALT 265. Bilirubin is normal 0.6. Lipase is normal EKG showing atrial fibrillation at [address]-T changes. Gallbladder ultrasound: Large gallstone and no dilated ducts. No liver mass. Chest x-ray showing cardiomegaly no heart failure 08/20/2020 Patient looks confused with looks like his baseline, he still complains from RUQ pain and tenderness, PEG tube is in place Patient was nothing by mouth in the morning, Eliquis is on hold. Metoprolol is on hold due to hypotension on admission Surgery team on the case for the cholelithiasis with a large gallstone and echo genic bile and they are asking for cardiac preop evaluation, patient was found by cardiology team and is high-risk but there is no contraindication. He is currently on normal sinus 50 mL/h 08/21/2020 Patient is a status post laparoscopic cholecystectomy. Today is postoperative day #1. Patient is lying in bed not in distress however he is complaining of from tenderness at the surgical site of his abdomen. PEG tube is in place. Patient is found closely by surgery and gastroenterology team. Cardiology team also on the case. However later the evening patient started developing fever of 103. Patient was started on Zosyn and CT of the abdomen and pelvis is ordered. Also his blood pressure was on the low side 73/42 500 bolus of normal saline is provided and possible he will need another bolus. Also we will send for blood culture and procalcitonin. I talked to Benjamín bedside nurse over the phone and states the patient is confused at baseline he is oriented to himself, he does not complain of from chest pain or abdominal pain or discomfort no diarrhea and his breathing quietly. 08/22/2020 Patient developed high fever yesterday at 103. CT of the abdomen and pelvis with contrast showed small pneumoperitoneum consistent with recent abdominal surgery. With cholecystectomy. Postsurgical changes. Epigastric ventral hernia containing transverse colon is also present on old CT But now continues the transverse colon. Gastrostomy tube in good position. Cardiomegaly. I disc ussed the case with surgery team, no further intervention is needed Chest x-ray from today showing bilateral basal pneumonia suspicious for respiration. Continue Zosyn, follow-up culture. Consult for swallow evaluation discussed with staff Patient himself is awake and comfortable, is still have some expected abdominal pain from his surgery. really tachypneic. And he is saturating 94% on 3 L ox ygen. CBC and BMP are stable with no leukocytosis Pro-calcitonin is slightly elevated at 0.13. Lower the dose of metoprolol from 25 3 times a day and to 12.5 twice a day and start gentle hydration with normal saline at 50 mL per hour 08/23/2020 Patient is lying in bed slightly tachypneic, no change clinically much from yesterday. He is saturating 92-95% and acetic acid oxygen via nasal cannula. No excision wheezing on exam CBC and BMP are unremarkable. Blood culture are still pending. Repeat chest x-ray tomorrow He remains on Zosyn. Pressure is still low normal side so keeping Toprol 21.5 mg twice a day 08/24/2020 Patient is more awake and alert, he has dysarthria at baseline. He does not have much respiratory symptoms but still complains from pain and tenderness in the right upper quadrant abdomen No more fever for the last 48 hours. Labs are stable. Blood culture no growth Recheck chest x-ray Surgery team suspecting mild cellulitis or infected hematoma at epigastric site, so they recommended to keep holding hold Eliquis for now and keep subcutaneous heparin Patient remains on Zosyn and normal saline at 50 mL per hour 08/25/2020 Patient has abdominal wall hematoma and patient is on Eliquis will discuss with general surgery to see if we need to hold this Eliquis. Patient is saturating 90% on 2 L of oxygen which we'll let. Down. Patient was evaluated by monty pate and patient is aspirating everything patient will be made nothing by mouth again and patient was started back on tube feedings. 08/26/2020 Patient doesn't appear to have any hematoma but does appear to have abdominal wall cellulitis and maybe an abscess infectious disease is being consulted. Eliquis will be held for possible incision and drainage tomorrow 08/27/2020 Patient continues with abdominal wall redness noted on the right with tenderness on palpation. Surgery planning I&D. Infectious disease following and patient is maintained on Zosyn and vancomycin. Will resume eliquis after procedure. Patient to be evaluated by PT/OT as he continues to be weak. Patient has [employer] insurance a nd will discuss with case management and social work about discharge plan. Given multiple complex medical issues and possible antibiotics therapy upon discharge may benefit from OMERO. 08/28/2020 Patient is seen and evaluated in follow-up status post incision and drainage of the right upper abdominal wall abscess and is currently draining. Wound cultures were obtained although pending at this time. Patient to continue with IV vancomycin along with Zosyn and infectious disease is following. We'll need to determine discharge antibiotics. Patient is weak and would benefit from rehab and social work consulted to discuss these options. Eliquis has been resumed. Patient is maintained on tube feedings and tolerating. Patient continues to be on 2 L of oxygen as well and is his baseline. patient is very fatigued although arousable. Labs reviewed this morning and within normal limits. Constitutional: Denied any fatigue denied any fever. Cardio vascular: denied any chest pain, palpitations Gastrointestinal denied any nausea vomiting still has significant abdominal pain with palpation Pulmonary: Denied any shortness of breath cough Neurologic denied any new focal deficits All inpatient medications were reviewed and appropriate changes in these medications as dictated in the interval history and assessment and plan. Objective - Vital Signs Vital signs: Vital Signs Temp 97.8 F 08/28/20 09:41 Pulse 92 08/28/20 09:41 Resp 18 08/28/20 09:41 BP 90/54 08/28/20 09:41 Pulse Ox 93 L 08/28/20 09:41 Intake & Output 08/27/20 08/28/20 08/28/20 18:59 06:59 18:59 Intake Total 1050 Output Total 300 250 Balance 750 -250 Weight 85 kg Intake: Tube Feeding 1050 Output: Urine 300 250 Other: Voiding Method Urinal Urinal Urinal Diaper Diaper Diaper # Voids 1 # Bowel Movements 1 - Exam GENERAL: The patient is alert and oriented x3, not in any acute distress. Well developed, well nourished. Lethargic although arousable HEENT: Pupils are round and equally reacting to light. EOMI. No scleral icterus. No conjunctival pallor. Normocephalic, atraumatic. No pharyngeal erythema. No thyromegaly. CARDIOVASCULAR: S1 and S2 present. No murmurs, rubs, or gallops. PULMONARY: Chest is clear to auscultation, no wheezing or crackles. ABDOMEN: Significant tenderness and redness below the PEG tube site area there is some induration and maybe an abscess noted on the right upper quadrant status post I&D at the bedside with some drainage noted MUSCULOSKELETAL: No joint swelling or deformity. EXTREMITIES: No cyanosis, clubbing, or pedal edema. NEUROLOGICAL: Gross neurological examination did not reveal any focal deficits. Diffusely weak SKIN: No rashes. - Labs CBC & Chem 7: 08/28/20 05:56 08/28/20 05:56 Labs: Abnormal Lab Results - Last 24 Hours (Table) 08/27/20 08/28/20 08/28/20 Range/Units 16:41 01:00 05:53 RBC (4.30-5.90) m/uL Hgb (13.0-17.5) gm/dL Hct (39.0-53.0) % Plt Count (150-450) k/uL Lymphocytes # (1.0-4.8) k/uL Carbon Dioxide (21.6-31.8) mmol/L Glucose (70-110) mg/dL POC Glucose (mg/dL) 121 H 120 H 116 H (75-99) mg/dL 08/28/20 08/28/20 08/28/20 Range/Units 05:56 05:56 11:05 RBC 3.69 L (4.30-5.90) m/uL Hgb 10.7 L (13.0-17.5) gm/dL Hct 34.0 L (39.0-53.0) % Plt Count 138 L (150-450) k/uL Lymphocytes # 0.8 L (1.0-4.8) k/uL Carbon Dioxide 35.5 H (21.6-31.8) mmol/L Glucose 125 H (70-110) mg/dL POC Glucose (mg/dL) 132 H (75-99) mg/dL Microbiology - Last 24 Hours (Table) 08/27/20 12:00 Gram Stain - Preliminary Abdomen Wound Culture - Preliminary Gram Neg Bacilli 08/21/20 22:52 Blood Culture - Final Blood No Growth after 144 hours Assessment and Plan Assessment: elevated liver enzymes associated with Gallstone . Status post laparoscopic cholecystectomy on 08/20 Abdominal wall abscess or cellulitis: Infectious disease following and patient on zosyn and vancomycin. Patient underwent I&D at the bedside with surgery and wound culture obtained and currently pending. Aspiration pneumonia and patient was evaluated by speech therapy patient has significant aspiration patient will be made nothing by mouth and will initiated on PEG tube feedings Chronic atrial fibrillation Eliquis resumed Recent diagnosis with Covid infection on 08/05 recent aortic dissection repair dysphagia with PEG tube placement, resumed tube feedings History of aortic valve replacement surgery with a bioprosthetic valve on 01/2020 coronary artery disease status with history of CABG and stenting History of stroke with residual dysarthria History of COPD on home oxygen 2 L/m Hypertension Hyperlipidemia History of dissecting descending aortic aneurysm surgical repair History of prostate cancer status post prostatectomy History of right lower leg DVT Alcoholic liver disease Chronic hepatitis C Plan: Continue current medications. Multiple medical consultations following. PT/OT to reevaluate as well as patient continues to be weak and may possibly require OMERO. I&D of abdominal abscess with surgery at the bedside yesterday and a culture was obtained and pending at this time. Continue with IV zosyn and vancomycin. Will discuss with case management and social work about discharge planning needs. Will discuss with infectious disease about discharge antibiotic recommendations. Will repeat am labs and continue to monitor.
--- NOTE | 2020-08-28 14:34 | P.PN ---
Subjective HISTORY OF PRESENT ILLNESS This is a 70-year-old man treated for abdominal wound and cellulitis. He is status post cholecystectomy on August 20 and subsequently developed fever 103. Patient underwent I&D of abdominal wall abscess yesterday with Dr. Mckeon with 10 mL purulent fluid removed and wound culture was obtained. Patient has been afebrile, rate 92, blood pressure 90/54, pulse ox 93% on 2 L nasal cannula. WBC 3.8, hemoglobin 10.7, platelet count 138. Electrolytes were normal except for CO2 of 35.5, creatinine 0.7. Vancomycin trough 22.8. He denies having any shortness of breath or cough. No nausea or vomiting. The patient has been afebrile since August 21. Blood culture no growth. Wound culture showing gram-negative bacilli. Patient is currently on Zosyn and vancomycin. PHYSICAL EXAMINATION Gen: This is a 70-year-old male. He is resting bed appears to be comfortable. HEENT: Head is atraumatic, normocephalic. Pupils equal, round. Sclerae is anicteric. NECK: Supple. No JVD. No lymphadenopathy. LUNGS: Clear to auscultation. No wheezes or rhonchi. No intercostal retractions. HEART: Regular rate and rhythm. No murmur. ABDOMEN: Soft. Bowel sounds are present. No masses. Area of induration to the right upper quadrant improving. EXTREMITIES: No pedal edema. No calf tenderness. NEUROLOGICAL: Patient is awake, alert and oriented to person. ASSESSMENT Cellulitis and abscess from laparoscopic port site, status post I&D Cholecystectomy with post op fever PLAN Continue IV antibiotics the form of Zosyn and vancomycin Plan for doxycycline at the time of discharge Monitor wound culture. Continue supportive care The above dictated assessment and findings were discussed with Dr. Espinal. The impression and plan of care have been directed as dictated. Jazzmine Celeste nurse practitioner acting as scribe for Dr. Espinal. Objective - Vital Signs Vital signs: Vital Signs Temp 97.8 F 08/28/20 09:41 Pulse 92 08/28/20 09:41 Resp 18 08/28/20 09:41 BP 90/54 08/28/20 09:41 Pulse Ox 93 L 08/28/20 09:41 Intake & Output 08/27/20 08/28/20 08/28/20 18:59 06:59 18:59 Intake Total 1050 Output Total 300 250 Balance 750 -250 Weight 85 kg Intake: Tube Feeding 1050 Output: Urine 300 250 Other: Voiding Method Urinal Urinal Diaper Diaper # Voids 1 # Bowel Movements 1 - Labs CBC & Chem 7: 08/28/20 05:56 08/28/20 05:56 Labs: Abnormal Lab Results - Last 24 Hours (Table) 08/27/20 08/27/20 08/28/20 Range/Units 11:21 16:41 01:00 RBC (4.30-5.90) m/uL Hgb (13.0-17.5) gm/dL Hct (39.0-53.0) % Plt Count (150-450) k/uL Lymphocytes # (1.0-4.8) k/uL Carbon Dioxide (21.6-31.8) mmol/L Glucose (70-110) mg/dL POC Glucose (mg/dL) 119 H 121 H 120 H (75-99) mg/dL 08/28/20 08/28/20 08/28/20 Range/Units 05:53 05:56 05:56 RBC 3.69 L (4.30-5.90) m/uL Hgb 10.7 L (13.0-17.5) gm/dL Hct 34.0 L (39.0-53.0) % Plt Count 138 L (150-450) k/uL Lymphocytes # 0.8 L (1.0-4.8) k/uL Carbon Dioxide 35.5 H (21.6-31.8) mmol/L Glucose 125 H (70-110) mg/dL POC Glucose (mg/dL) 116 H (75-99) mg/dL Microbiology - Last 24 Hours (Table) 08/27/20 12:00 Gram Stain - Preliminary Abdomen Wound Culture - Preliminary 08/21/20 22:52 Blood Culture - Final Blood No Growth after 144 hours
[2020-08-28 17:05] LABS: Glucose,Whole Blood 107 mg/dL (75-99)
[2020-08-28 18:19] VITALS: RESP 18
[2020-08-28] MEDS: ATORVASTATIN 40 MG TAB PO SCH (20:25)
[2020-08-28 23:57] LABS: Glucose,Whole Blood 161 mg/dL (75-99)
[2020-08-29] MEDS: LEVOTHYROXINE 50 MCG TAB PO SCH (05:30)
[2020-08-29] MEDS: PIPERACILLIN-TAZOBACTAM 3.375 GM in SODIUM CHLORIDE 0.9% 100 ML IVPB SCH (05:30)
[2020-08-29 05:45] LABS: Glucose,Whole Blood 114 mg/dL (75-99)
[2020-08-29] MEDS ORDERED: VANCOMYCIN 1,500 MG in SODIUM CHLORIDE 0.9% 250 ML IVPB SCH (06:00)
[2020-08-29] MEDS: ASCORBIC ACID 500 MG TAB PO SCH (08:20)
[2020-08-29] MEDS: METOPROLOL TARTRATE 25 MG TAB PO SCH (08:21)
[2020-08-29] MEDS: ZINC SULFATE 220 MG CAP PO SCH (08:21)
[2020-08-29] MEDS: APIXABAN 5 MG TAB PO SCH (08:22)
[2020-08-29] MEDS: QUEtiapine 25 MG TAB PO SCH (08:22)
[2020-08-29] MEDS: levETIRAcetam ORAL SOLN 500 MG/5 ML CUP PO SCH (08:22)
[2020-08-29] MEDS: TORSEMIDE 20 MG TAB PO SCH (08:23)
[2020-08-29] MEDS: NON FORMULARY DRUG (Cholecalciferol 1,000 UNIT Tab) PO SCH (08:24)
--- NOTE | 2020-08-29 11:29 | P.PN ---
Subjective Progress Note Date: 08/29/20 CHIEF COMPLAINT: Weakness and hypotension HISTORY OF PRESENT ILLNESS: Patient is status post laparoscopic cholecystectomy on 08/20/20. Patient had developed cellulitis and abdominal wall abscess at the epigastric trocar site. Patient status post a bedside incision and drainage of the abdominal wall abscess with Dr. Mckeon. Patient has had improvement in the abdominal wall cellulitis and abscess. He is maintained on antibiotics. Fluid culture results grew gram-negative bacilli Afebrile PHYSICAL EXAM: VITAL SIGNS: Reviewed. GENERAL: Well-developed in no acute distress. HEENT: No sclera icterus. Extraocular movements grossly intact. Moist buccal mucosa. Head is atraumatic, normocephalic. ABDOMEN: Soft. Nondistended. Epigastric incision site minimal erythema and decrease in induration NEUROLOGIC: Sleeping comfortably ASSESSMENT: 1. Acute cholecystitis status post laparoscopic cholecystectomy 2. Mild abdominal wall cellulitis with abscess at the epigastric trocar site. Patient is status post incision and drainage at bedside. PLAN: -Discharge antibiotics per ID recommendations -Increase activity -Encouraged to use incentive spirometer -Patient can be discharge from surgical standpoint Physician Senior Data Warehouse Developer note has been reviewed by physician. Signing provider agrees with the documented findings, assessment, and plan of care. Objective - Vital Signs Vital signs: Vital Signs Temp 98.1 F 08/29/20 09:20 Pulse 75 08/29/20 09:20 Resp 18 08/29/20 09:20 BP 87/53 08/29/20 09:20 Pulse Ox 92 L 08/29/20 09:20 Intake & Output 08/28/20 08/29/20 08/29/20 18:59 06:59 18:59 Intake Total 660 455 Output Total 1450 Balance -790 455 Weight 85 kg 85.5 kg Intake: Tube Feeding 660 455 Output: Urine 1450 Other: Voiding Method Urinal Urinal Urinal Diaper Diaper Diaper # Voids 1 # Bowel Movements 1 - Labs CBC & Chem 7: 08/28/20 05:56 08/28/20 05:56 Labs: Abnormal Lab Results - Last 24 Hours (Table) 08/28/20 08/28/20 08/29/20 Range/Units 17:01 23:55 05:44 POC Glucose (mg/dL) 107 H 161 H 114 H (75-99) mg/dL Microbiology - Last 24 Hours (Table) 08/27/20 12:00 Gram Stain - Preliminary Abdomen Wound Culture - Preliminary Gram Neg Bacilli
[2020-08-29 11:31] LABS: Glucose,Whole Blood 107 mg/dL (75-99)
[2020-08-29] MEDS ORDERED: CEFEPIME 2 GM in SODIUM CHLORIDE 0.9% 100 ML IVPB SCH (12:45)
--- NOTE | 2020-08-29 14:25 | P.DS ---
Providers Date of admission: 08/18/20 20:53 Expected date of discharge: 08/29/20 Attending physician: Fred Desir Consults: 08/19/20 12:09 Consult Physician Urgent Consulting Provider: Santana Mckeon Consult Reason/Comments: cholelithiasis Do you want consulting provider notified?: Yes 08/26/20 12:17 Consult Physician Routine Consulting Provider: Peri Espinal Consult Reason/Comments: abdominal wall cellulitis Do you want consulting provider notified?: Yes Primary care physician: [facility] Hospital Course: Final diagnosis elevated liver enzymes associated with Gallstone . Status post laparoscopic cholecystectomy on 08/20 Abdominal wall abscess or cellulitis with cultures finalizing showing Morganella morganii Aspiration pneumonia and patient was evaluated by speech therapy patient has significant aspiration requiring continued tube feedings Chronic atrial fibrillation Recent diagnosis with Covid infection on 08/05 recent aortic dissection repair dysphagia with PEG tube placement, resumed tube feedings History of aortic valve replacement surgery with a bioprosthetic valve on 01/2020 coronary artery disease status with history of CABG and stenting History of stroke with residual dysarthria History of COPD on home oxygen 2 L/m Hypertension Hyperlipidemia History of dissecting descending aortic aneurysm surgical repair History of prostate cancer status post prostatectomy History of right lower leg DVT Alcoholic liver disease Chronic hepatitis C Discharge disposition Patient is being discharged in a stable condition with guarded prognosis to [facility] for continued PT/OT therapy and IV antibiotic therapy. Patient will follow-up with [facility] in the outpatient setting upon discharge. Patient also to follow-up with surgery in the outpatient setting. Patient is to continue with IV cefepime 2 g twice daily for the next 2 weeks. Total time taken is greater than 35 minutes. Hospital course 70 years old male with past medical history of chronic atrial fibrillation, aortic valve replacement surgery with a bioprosthetic valve and 01/2020, coronary artery disease status post CABG and stenting, COPD on home oxygen at 2 L/m, history of CVA with residual dysarthria, hypertension, hyperlipidemia history of dissecting descending aortic aneurysm surgical repair, prostate cancer status post prostatectomy, previous history of right lower leg DVT, alcoholic liver cirrhosis, history of hepatitis C, dysphagia with previous history of PEG tube placement. He was recently discharged from this hospital 08/05-08/06 for acute Covid pneumonia That was reported low blood pressure on admission but since he is in the emergency room his blood pressure was around 106/58, he is afebrile and rest of his vitals are stable. Labs showing unremarkable CBC except for mild anemia with hemoglobin 12.2. INR is normal 1.0. BMP is unremarkable, lactic acid was elevated at 3.0 came back to normal 1.4, AST is elevated to 206, and ALT 265. Bilirubin is normal 0.6. Lipase is normal EKG showing atrial fibrillation at [address]-T changes. Gallbladder ultrasound: Large gallstone and no dilated ducts. No liver mass. Chest x-ray showing cardiomegaly no heart failure 08/29/2020 Patient is status post cholecystectomy an I&D of an abdominal wall abscess of the right upper abdomen and wound cultures are finalized showing Morganella mo rganii and infectious disease has been following. Patient will continue with IV cefepime 2 g twice daily for the next 2 weeks and is receiving a midline. Patient was also seen and evaluated during hospitalization for possibility of aspiration and underwent swallow study which was positive for aspirating and tube feedings were reinitiated from previous PEG tube patient was seen and followed by surgery for the cholecystectomy along with abdominal wall abscess and will follow-up outpatient with surgery in 1-2 weeks. Patient to continue with tube feedings with the possibility of speech therapy at [facility] to monitor for oral food intolerance. Currently no reports of chest pain, worsening shortness of breath, or palpitations. Patient normally wears 2 L of oxygen in the outpatient setting. Patient is afebrile. No reports of nausea or vomiting and patient is tolerating tube feedings. Patient is being discharged to [facility] today. On exam vital signs are stable. Cardio S1, S2 are muffled. Respiratory system shows diminished breath sounds at the bases with some scattered rhonchi noted. Abdomen is soft and nontender. Nervous system shows diffuse weakness. Please refer to medication reconciliation sheet for a list of medications. Patient Condition at Discharge: Stable Plan - Discharge Summary Discharge Rx Participant: No New Discharge Prescriptions: New Cefepime [Maxipime] 2 gm IVPB Q12HR 14 Days #28 vial Continue Torsemide [Demadex] 20 mg PO DAILY Levothyroxine Sodium [Euthyrox] 50 mcg PO DAILY Apixaban [Eliquis] 5 mg PO BID QUEtiapine [SEROquel] 25 mg PO BID Metoprolol Tartrate 25 mg PO TID levETIRAcetam [levETIRAcetam Oral Soln] 500 mg PO BID Zinc Sulfate [Orazinc] 220 mg PO DAILY 30 Days #30 cap Atorvastatin Calcium [Lipitor] 40 mg PO HS Ascorbic Acid [Vitamin C] 500 mg PO DAILY Cholecalciferol [Vitamin D3 (25 Mcg = 1000 Iu)] 1,000 unit PO DAILY Folic Acid 1 mg PO DAILY@1200 Multivitamins, Thera [Multivitamin (formulary)] 1 tab PO DAILY@1200 Pantoprazole [Protonix] 40 mg PO AC-BRKFST Thiamine [Vitamin B-1] 100 mg PO DAILY@1200 Discontinued Potassium Chloride [Klor-Con 20 Packets] 20 meq PO DAILY Discharge Medication List Apixaban [Eliquis] 5 mg PO BID 08/04/20 [History] Levothyroxine Sodium [Euthyrox] 50 mcg PO DAILY 08/04/20 [History] Metoprolol Tartrate 25 mg PO TID 08/04/20 [History] QUEtiapine [SEROquel] 25 mg PO BID 08/04/20 [History] Torsemide [Demadex] 20 mg PO DAILY 08/04/20 [History] levETIRAcetam [levETIRAcetam Oral Soln] 500 mg PO BID 08/04/20 [History] Zinc Sulfate [Orazinc] 220 mg PO DAILY 30 Days #30 cap 08/06/20 [Rx] Ascorbic Acid [Vitamin C] 500 mg PO DAILY 08/18/20 [History] Atorvastatin Calcium [Lipitor] 40 mg PO HS 08/18/20 [History] Cholecalciferol [Vitamin D3 (25 Mcg = 1000 Iu)] 1,000 unit PO DAILY 08/18/20 [History] Folic Acid 1 mg PO DAILY@1200 08/18/20 [History] Multivitamins, Thera [Multivitamin (formulary)] 1 tab PO DAILY@1200 08/18/20 [History] Pantoprazole [Protonix] 40 mg PO AC-BRKFST 08/18/20 [History] Thiamine [Vitamin B-1] 100 mg PO DAILY@1200 08/19/20 [History] Cefepime [Maxipime] 2 gm IVPB Q12HR 14 Days #28 vial 08/29/20 [Rx] Follow up Appointment(s)/Referral(s): [facility] [NON-STAFF] - Leisa Sanabria MD [STAFF PHYSICIAN] - 2 Weeks [facility] [Primary Care Provider] - 1-2 days aSntana Mckeon MD [STAFF PHYSICIAN] - 1 Week Activity/Diet/Wound Care/Special Instructions: Patient is going to [facility] continue with IV antibiotic therapy twice daily for the next 2 weeks Continue with incentive spirometer use at least 10 times every hour while awake Continue with physical therapy Continue with Jevity 1.5 tube feedings with a goal of 55 and 30 mL freewater bolus flushes every 4 hours and monitor for residual Follow-up with speech therapy for the possibility of advancing diet to oral Follow-up with primary care provider upon discharge Discharge Disposition: TRANSFER TO SNF/ECF
--- NOTE | 2020-08-29 14:28 | P.PN ---
Subjective Progress Note Date: 08/29/20 HISTORY OF PRESENT ILLNESS This is a 70-year-old man treated for abdominal wound and cellulitis. He is st atus post cholecystectomy on August 20 and subsequently developed fever 103. Patient underwent I&D of abdominal wall abscess yesterday with Dr. Mckeon with 10 mL purulent fluid removed and wound culture was obtained. Patient has been afebrile, rate 92, blood pressure 90/54, pulse ox 93% on 2 L nasal cannula. WBC 3.8, hemoglobin 10.7, platelet count 138. Electrolytes were normal except for C O2 of 35.5, creatinine 0.7. Vancomycin trough 22.8. He denies having any shortness of breath or cough. No nausea or vomiting. The patient has been afebrile since August 21. Blood culture no growth. Wound culture showing gram-negative bacilli. Patient is currently on Zosyn and vancomycin. 08/29: Patient has been afebrile, heart rate 75, blood pressure 87/53, pulse ox 92% on 2 L nasal cannula. Wound culture is Morganella morganii. Patient transitioned to cefepime will plan for 2 weeks. Vancomycin will be discontinued. Patient does not have any drainage today. Site seems to be improving. PHYSICAL EXAMINATION Gen: This is a 70-year-old male. He is resting bed appears to be comfortable. HEENT: Head is atraumatic, normocephalic. Pupils equal, round. Sclerae is anicteric. NECK: Supple. No JVD. No lymphadenopathy. LUNGS: Clear to auscultation. No wheezes or rhonchi. No intercostal retractions. HEART: Regular rate and rhythm. No murmur. ABDOMEN: Soft. Bowel sounds are present. No masses. Normal swelling, no drainage from abscess site. EXTREMITIES: No pedal edema. No calf tenderness. NEUROLOGICAL: Patient is awake, alert and oriented to person. ASSESSMENT Cellulitis and abscess from laparoscopic port site, status post I&D Cholecystectomy with post op fever PLAN Discontinue Zosyn and vancomycin Patient transitioned to cefepime 2 g IV piggyback every 12 hours Plan for 2 week course of IV cefepime Midline has been ordered Continue supportive care The above dictated assessment and findings were discussed with Dr. Espinal. The impression and plan of care have been directed as dictated. Jazzmine Celeste nurse practitioner acting as scribe for Dr. Espinal. Objective - Vital Signs Vital signs: Vital Signs Temp 98.1 F 08/29/20 09:20 Pulse 75 08/29/20 09:20 Resp 18 08/29/20 09:20 BP 87/53 08/29/20 09:20 Pulse Ox 92 L 08/29/20 09:20 Intake & Output 08/28/20 08/29/20 08/29/20 18:59 06:59 18:59 Intake Total 660 455 Output Total 1450 Balance -790 455 Weight 85 kg 85.5 kg Intake: Tube Feeding 660 455 Output: Urine 1450 Other: Voiding Method Urinal Urinal Urinal Diaper Diaper Diaper # Voids 1 # Bowel Movements 1 - Labs CBC & Chem 7: 08/28/20 05:56 08/28/20 05:56 Labs: Abnormal Lab Results - Last 24 Hours (Table) 08/28/20 08/28/20 08/29/20 Range/Units 17:01 23:55 05:44 POC Glucose (mg/dL) 107 H 161 H 114 H (75-99) mg/dL 08/29/20 Range/Units 11:29 POC Glucose (mg/dL) 107 H (75-99) mg/dL Microbiology - Last 24 Hours (Table) 08/27/20 12:00 Gram Stain - Final Abdomen Wound Culture - Final Morganella morganii
[2020-08-29 15:08] VITALS: BP 105/60; PULSE 79; TEMP 97.9
[2020-08-30] MEDS ORDERED: VANCOMYCIN TROUGH DUE 1 EACH MISC MISCELLANE ONE (13:00)
== END 2020-08-29 16:46 | DRG 417 ==
LOC: EC 17:31 → 6NMEDSUR 20:53 → 4SSUR 08-19 16:07
PROVIDERS: ADMIT Hospitalist; ATTEND Hospitalist
PROC: 0FT44ZZ Resection of Gallbladder, Percutaneous Endoscopic Approach (ICD-10-PCS; principal; 2020-08-20 12:50)
PROC: 0W9F0ZZ Drainage of Abdominal Wall, Open Approach (ICD-10-PCS; 2020-08-27)
DX: K80.00 Calculus of gallbladder with acute cholecystitis without obstruction (principal); J69.0 Pneumonitis due to inhalation of food and vomit; J96.11 Chronic respiratory failure with hypoxia; I48.19 Other persistent atrial fibrillation; E87.2 Acidosis; J98.11 Atelectasis; L03.311 Cellulitis of abdominal wall; L02.211 Cutaneous abscess of abdominal wall; I95.9 Hypotension, unspecified; J44.9 Chronic obstructive pulmonary disease, unspecified; I27.20 Pulmonary hypertension, unspecified; K70.30 Alcoholic cirrhosis of liver without ascites; B18.2 Chronic viral hepatitis C; D69.6 Thrombocytopenia, unspecified; I71.2 Thoracic aortic aneurysm, without rupture; Z93.1 Gastrostomy status; K43.9 Ventral hernia without obstruction or gangrene; R50.9 Fever, unspecified; E87.6 Hypokalemia; Z86.16 Personal history of COVID-19; R13.10 Dysphagia, unspecified; I25.10 Atherosclerotic heart disease of native coronary artery without angina pectoris; I08.1 Rheumatic disorders of both mitral and tricuspid valves; I10 Essential (primary) hypertension; E78.00 Pure hypercholesterolemia, unspecified; K21.9 Gastro-esophageal reflux disease without esophagitis; K29.70 Gastritis, unspecified, without bleeding; H35.30 Unspecified macular degeneration; H93.13 Tinnitus, bilateral; E78.5 Hyperlipidemia, unspecified; H91.90 Unspecified hearing loss, unspecified ear; R41.3 Other amnesia; F17.200 Nicotine dependence, unspecified, uncomplicated; Z99.81 Dependence on supplemental oxygen; I25.2 Old myocardial infarction; I69.322 Dysarthria following cerebral infarction; Z90.79 Acquired absence of other genital organ(s); Z95.1 Presence of aortocoronary bypass graft; Z95.3 Presence of xenogenic heart valve; Z95.5 Presence of coronary angioplasty implant and graft; Z98.890 Other specified postprocedural states; Z79.01 Long term (current) use of anticoagulants; Z79.899 Other long term (current) drug therapy; Z79.890 Hormone replacement therapy; Z86.010 Personal history of colon polyps; Z86.718 Personal history of other venous thrombosis and embolism; Z87.19 Personal history of other diseases of the digestive system; Z87.01 Personal history of pneumonia (recurrent); Z85.46 Personal history of malignant neoplasm of prostate; Z87.440 Personal history of urinary (tract) infections; Z83.3 Family history of diabetes mellitus; Z82.49 Family history of ischemic heart disease and other diseases of the circulatory system
CPT/HCPCS: 36410; 36415; 71045; 71046; 74176; 74230; 76705; 76937; 80048; 80053; 80074; 80076; 80202; 83605; 83690; 83735; 83880; 84132; 84145; 84484; 85025; 85027; 85610; 85730; 86140; 87040; 87070; 87077; 87186; 87205; 88304; 93005; 93308; 94760; 99285

== ENCOUNTER 2020-09-26 11:58 | Emergency (ER) | payer BC, MEDICARE, OTHER ==
[2020-09-26] MEDS ORDERED: SODIUM CHLORIDE 0.9% 1,000 ML IV STA (12:26)
[2020-09-26 13:05] LABS: Basophils % (A) 0 %; Eosinophils # (A) 0.4 k/uL (0-0.7); Eosinophils % (A) 5 %; HCT 35.8 % (39.0-53.0); HGB 11.8 gm/dL (13.0-17.5); Lymphocytes # (A) 1.2 k/uL (1.0-4.8); Lymphocytes % (A) 15 %; MCH 30.4 pg (25.0-35.0); MCHC 32.9 g/dL (31.0-37.0); MCV 92.2 fL (80.0-100.0); Mean Platelet Volume 9.7; Monocytes # (A) 0.6 k/uL (0-1.0); Monocytes % (A) 7 %; Neutrophils # (A) 5.8 k/uL (1.3-7.7); Neutrophils % (A) 70 %; Platelet Count 103 k/uL (150-450); RBC 3.88 m/uL (4.30-5.90); RDW 15.3 % (11.5-15.5); WBC 8.2 k/uL (3.8-10.6)
[2020-09-26 13:18] LABS: ALT 33 U/L (4-49); AST 64 U/L (17-59); African American GFR (CKD) >90 (>60 ml/min/1.73 sqM); Alkaline Phosphatase 146 U/L (38-126); Anion Gap 9 mmol/L; Blood Urea Nitrogen 24 mg/dL (9-20); Carbon Dioxide 38 mmol/L (22-30); Chloride 91 mmol/L (98-107); Glucose 109 mg/dL (74-99); Non-African American GFR(CKD) >90 (>60 ml/min/1.73 sqM); Potassium 4.1 mmol/L (3.5-5.1); Sodium 138 mmol/L (137-145); Total Bilirubin 0.8 mg/dL (0.2-1.3); Total Protein 7.7 g/dL (6.3-8.2)
[2020-09-26 13:19] LABS: INR 1.1 (<1.2); Partial Thromboplastin Time 35.3 sec (22.0-30.0); Prothrombin Time 11.7 sec (9.0-12.0)
[2020-09-26 13:25] LABS: Appearance,Urine Clear (Clear); Bilirubin,Urine Negative (Negative); Blood,Urine Negative (Negative); Color,Urine Yellow; Glucose,Urine (UA) Negative (Negative); Ketones,Urine Negative (Negative); Leukocyte Esterase,Urine Negative (Negative); Nitrite,Urine Negative (Negative); PH, Urine 7.5 (5.0-8.0); Protein,Urine Trace (Negative); Urobilinogen,Urine <2.0 mg/dL (<2.0)
--- NOTE | 2020-09-26 13:29 | XR ---
EXAMINATION TYPE: XR chest 2V DATE OF EXAM: 09/26/2020 COMPARISON: 08/25/2020 INDICATION: Cough and congestion TECHNIQUE: Frontal and lateral views of the chest are obtained. FINDINGS: The heart size is normal. The pulmonary vasculature is normal. The lungs are clear. Sternotomy wires are present from previous cardiac valve surgery. Multiple surgical clips are in the right upper chest IMPRESSION: 1. No acute pulmonary process.
[2020-09-26 14:04] VITALS: RESP 16
--- NOTE | 2020-09-26 14:09 | ED ---
General Adult HPI - General Chief complaint: Upper Respiratory Infection Stated complaint: chest congestion Time Seen by Provider: 09/26/20 12:16 Source: patient, family Mode of arrival: wheelchair Limitations: no limitations - History of Present Illness Initial comments: Patient is a 70-year-old male, with multiple coronary but it is including A. fib, COPD, currently on 2 L, liver disease, presenting to the emergency Department with complaints of chest congestion and concerns of low blood pressure. He should has a visiting nurse that comes once a week and stated that she noticed some chest congestion over the past 2 days. The patient contacted the [facility] who recommended going in to the ER for a chest x-ray. Patient's son also noticed that he had some low blood pressure yesterday and today. Patient denies any fever, he does not feel like he is coughing more than his usual. He did have covid this past August, he was hospitalized for 3 days, recovered. Denies any chest pain, no nausea or vomiting, abdominal pain he has no other complaints . Upon arrival to the ER, patient's blood pressures 83/47, is 100% on 2 L, rest of vitals are normal. - Related Data Home Medications Medication Instructions Recorded Confirmed Apixaban [Eliquis] 5 mg PEG/G-TUBE BID 08/04/20 09/26/20 Levothyroxine Sodium [Euthyrox] 50 mcg PEG/G-TUBE DAILY 08/04/20 09/26/20 Metoprolol Tartrate 25 mg PEG/G-TUBE TID 08/04/20 09/26/20 QUEtiapine [SEROquel] 25 mg PEG/G-TUBE BID 08/04/20 09/26/20 Torsemide [Demadex] 20 mg PEG/G-TUBE DAILY 08/04/20 09/26/20 levETIRAcetam [levETIRAcetam Oral 500 mg PEG/G-TUBE BID 08/04/20 09/26/20 Soln] Atorvastatin Calcium [Lipitor] 40 mg PEG/G-TUBE HS 08/18/20 09/26/20 Folic Acid 1 mg PEG/G-TUBE DAILY@1200 08/18/20 09/26/20 Escitalopram [Lexapro] 10 mg PEG/G-TUBE DAILY 09/26/20 09/26/20 Esomeprazole Magnesium 20 mg PEG/G-TUBE DAILY 09/26/20 09/26/20 Ipratropium-Albuterol Nebulize 3 ml INHALATION RT-BID 09/26/20 09/26/20 [Duoneb 0.5 mg-3 mg/3 ml Soln] Allergies Allergy/AdvReac Type Severity Reaction Status Date / Time No Known Allergies Allergy Verified 09/26/20 14:23 Review of Systems ROS Statement: Those systems with pertinent positive or pertinent negative responses have been documented in the HPI. ROS Other: All systems not noted in ROS Statement are negative. Past Medical History Past Medical History: Atrial Fibrillation, Atrial Flutter, Coronary Artery Disease (CAD), Cancer, Chest Pain / Angina, Heart Failure, COPD, CVA/TIA, Deep Vein Thrombosis (DVT), Eye Disorder, GERD/Reflux, GI Bleed, Hearing Disorder / Deafness, Hyperlipidemia, Hypertension, Liver Disease, Memory Impairment, Pneumonia, Vascular Disorder Additional Past Medical History / Comment(s): Stable dissection of the descending aorta, chronic atrial fibrillation and is anticoagulated with warfarin, aortic valve replacement with a bioprosthetic valve, pulmonary hypertension, chronic hypoxic respiratory failure with home O2 at , previous pneumonia 2008 and 2014, prostate cancer with prostatectomy, DVT R lower leg x2, macular degeneration L eye, left arm fracture, chronic tinnitus in both ears, gastritis, lower GIm bleed, UTI, liver cirrhosis related to history of alcoholism, hepatitis C at age 14yrs., feeding tube, alcoholism Last Myocardial Infarction Date:: unsure History of Any Multi-Drug Resistant Organisms: None Reported Date of last positivie culture/infection: None MDRO Source:: None Past Surgical History: Cardiac Valve Replacement, Cholecystectomy, Coronary B ypass/CABG, Heart Catheterization, Heart Catheterization With Stent, Hernia Repair, Orthopedic Surgery, Prostate Surgery Additional Past Surgical History / Comment(s): Aortic valve replacement, prostatectomy, right inguinal hernia repair 2, bilateral knee arthroscopy, colonoscopy/polypectomy, EGD, right leg varicose vein stripping, removal of a blood clot from the right lower extremity, cervical surgery d/t injury in [place] and removal of shrapnel's from the right shoulder, feeding tube Past Anesthesia/Blood Transfusion Reactions: No Reported Reaction Date of Last Stent Placement:: 2016 Past Psychological History: No Psychological Hx Reported Smoking Status: Former smoker Past Alcohol Use History: None Reported Past Drug Use History: None Reported - Past Family History Mother Family Medical History: Diabetes Mellitus Additional Family Medical History / Comment(s): Mother at age 74 from diabetic complications. Father Family Medical History: Congestive Heart Failure (CHF) Additional Family Medical History / Comment(s): Father at age 91 yrs. General Exam - General Exam Comments Initial Comments: GENERAL: Patient is well-developed and well-nourished. Patient is nontoxic and in no acute distress. HEAD: Atraumatic, normocephalic. EYES: Pupils equal round and reactive to light, extraocular movements intact, sclera anicteric, conjunctiva are normal. Eyelids were unremarkable. ENT: TMs normal, nares patent, oropharynx clear without exudates. Moist mucous membranes. NECK: Normal range of motion, supple without lymphadenopathy or JVD. LUNGS: Unlabored respirations. Breath sounds clear to auscultation bilaterally and equal. No wheezes rales or rhonchi. HEART: Regular rate and rhythm without murmurs, rubs or gallops. ABDOMEN: Soft, nontender, normoactive bowel sounds. No guarding, no rebound. No masses appreciated. : Deferred MUSCULOSKELETAL: Normal extremities with adequate strength and normal range of motion, no pitting or edema. No clubbing or cyanosis. NEUROLOGICAL: Patient is alert and oriented x 3. Motor and sensory are also intact. Cranial nerves II through XII grossly intact. Symmetrical smile. Normal speech, normal gait. PSYCH: Normal mood, normal affect. SKIN: Warm, Dry, normal turgor, no rashes or lesions noted. Limitations: no limitations Course Vital Signs 09/26/20 09/26/20 09/26/20 12:03 12:10 13:11 Temperature 97.9 F Pulse Rate 54 L 52 L Respiratory 18 16 20 Rate Blood Pressure 83/47 127/69 O2 Sat by Pulse 100 Oximetry 09/26/20 09/26/20 09/26/20 14:03 15:02 15:10 Temperature 97.6 F Pulse Rate 43 L 52 L 52 L Respiratory 16 16 16 Rate Blood Pressure 113/45 122/58 122/58 O2 Sat by Pulse 100 98 98 Oximetry EKG Findings - EKG Comments: EKG Findings:: A. fib with slow ventricular response, nonspecific T-wave ab normalities, no signs of acute ischemia. Ventricular rate 54, QRS duration 96, QT 444. Similar to previous EKG in 08/18/2020. Medical Decision Making - Medical Decision Making Patient is a 70-year-old male with history of multiple comorbidities, COPD on 2 L at home, presenting for a slight cough, concerns of hypotension. Vital signs are stable upon arrival, he's had no fevers. Since x-ray appears normal, normal white count. Kidney function is at baseline, lactic acid is elevated at 2.5. Urine is normal, rapid Covid is not detected. Patient received 1 L of fluids, continues to feel well. Discussed these findings with the patient and his son. Recommend following up with his PCP. Also recommended to increase his daily f luid intake. Patient is stable for discharge. Patient is in agreement with this plan of care. Return parameters were discussed with the patient and they verbalized understanding. Case discussed with Dr. Ricardo. - Lab Data Result diagrams: 09/26/20 12:55 09/26/20 12:55 Lab Results 09/26/20 09/26/20 09/26/20 Range/Units 12:55 12:55 12:55 WBC 8.2 (3.8-10.6) k/uL RBC 3.88 L (4.30-5.90) m/uL Hgb 11.8 L (13.0-17.5) gm/dL Hct 35.8 L (39.0-53.0) % MCV 92.2 (80.0-100.0) fL MCH 30.4 (25.0-35.0) pg MCHC 32.9 (31.0-37.0) g/dL RDW 15.3 (11.5-15.5) % Plt Count 103 L (150-450) k/uL MPV 9.7 Neutrophils % 70 % Lymphocytes % 15 % Monocytes % 7 % Eosinophils % 5 % Basophils % 0 % Neutrophils # 5.8 (1.3-7.7) k/uL Lymphocytes # 1.2 (1.0-4.8) k/uL Monocytes # 0.6 (0-1.0) k/uL Eosinophils # 0.4 (0-0.7) k/uL Basophils # 0.0 (0-0.2) k/uL PT 11.7 (9.0-12.0) sec INR 1.1 (<1.2) APTT 35.3 H (22.0-30.0) sec Sodium 138 (137-145) mmol/L Potassium 4.1 (3.5-5.1) mmol/L Chloride 91 L (98-107) mmol/L Carbon Dioxide 38 H (22-30) mmol/L Anion Gap 9 mmol/L BUN 24 H (9-20) mg/dL Creatinine 0.78 (0.66-1.25) mg/dL Est GFR (CKD-EPI)AfAm >90 (>60 ml/min/1.73 sqM) Est GFR (CKD-EPI)NonAf >90 (>60 ml/min/1.73 sqM) Glucose 109 H (74-99) mg/dL Lactic Ac Sepsis Rflx Plasma Lactic Acid Silvino (0.7-2.0) mmol/L Calcium 9.0 (8.4-10.2) mg/dL Total Bilirubin 0.8 (0.2-1.3) mg/dL AST 64 H (17-59) U/L ALT 33 (4-49) U/L Alkaline Phosphatase 146 H (38-126) U/L NT-Pro-B Natriuret Pep pg/mL Total Protein 7.7 (6.3-8.2) g/dL Albumin 4.0 (3.5-5.0) g/dL Urine Color Urine Appearance (Clear) Urine pH (5.0-8.0) Ur Specific [place] (1.001-1.035) Urine Protein (Negative) Urine Glucose (UA) (Negative) Urine Ketones (Negative) Urine Blood (Negative) Urine Nitrite (Negative) Urine Bilirubin (Negative) Urine Urobilinogen (<2.0) mg/dL Ur Leukocyte Esterase (Negative) Coronavirus (PCR) (Not Detectd) 09/26/20 09/26/20 09/26/20 Range/Units 12:55 12:55 13:10 WBC (3.8-10.6) k/uL RBC (4.30-5.90) m/uL Hgb (13.0-17.5) gm/dL Hct (39.0-53.0) % MCV (80.0-100.0) fL MCH (25.0-35.0) pg MCHC (31.0-37.0) g/dL RDW (11.5-15.5) % Plt Count (150-450) k/uL MPV Neutrophils % % Lymphocytes % % Monocytes % % Eosinophils % % Basophils % % Neutrophils # (1.3-7.7) k/uL Lymphocytes # (1.0-4.8) k/uL Monocytes # (0-1.0) k/uL Eosinophils # (0-0.7) k/uL Basophils # (0-0.2) k/uL PT (9.0-12.0) sec INR (<1.2) APTT (22.0-30.0) sec Sodium (137-145) mmol/L Potassium (3.5-5.1) mmol/L Chloride (98-107) mmol/L Carbon Dioxide (22-30) mmol/L Anion Gap mmol/L BUN (9-20) mg/dL Creatinine (0.66-1.25) mg/dL Est GFR (CKD-EPI)AfAm (>60 ml/min/1.73 sqM) Est GFR (CKD-EPI)NonAf (>60 ml/min/1.73 sqM) Glucose (74-99) mg/dL Lactic Ac Sepsis Rflx Plasma Lactic Acid Silvino 2.5 H* (0.7-2.0) mmol/L Calcium (8.4-10.2) mg/dL Total Bilirubin (0.2-1.3) mg/dL AST (17-59) U/L ALT (4-49) U/L Alkaline Phosphatase (38-126) U/L NT-Pro-B Natriuret Pep 1060 pg/mL Total Protein (6.3-8.2) g/dL Albumin (3.5-5.0) g/dL Urine Color Yellow Urine Appearance Clear (Clear) Urine pH 7.5 (5.0-8.0) Ur Specific [place] 1.010 (1.001-1.035) Urine Protein Trace H (Negative) Urine Glucose (UA) Negative (Negative) Urine Ketones Negative (Negative) Urine Blood Negative (Negative) Urine Nitrite Negative (Negative) Urine Bilirubin Negative (Negative) Urine Urobilinogen <2.0 (<2.0) mg/dL Ur Leukocyte Esterase Negative (Negative) Coronavirus (PCR) (Not Detectd) 09/26/20 09/26/20 Range/Units 13:10 13:29 WBC (3.8-10.6) k/uL RBC (4.30-5.90) m/uL Hgb (13.0-17.5) gm/dL Hct (39.0-53.0) % MCV (80.0-100.0) fL MCH (25.0-35.0) pg MCHC (31.0-37.0) g/dL RDW (11.5-15.5) % Plt Count (150-450) k/uL MPV Neutrophils % % Lymphocytes % % Monocytes % % Eosinophils % % Basophils % % Neutrophils # (1.3-7.7) k/uL Lymphocytes # (1.0-4.8) k/uL Monocytes # (0-1.0) k/uL Eosinophils # (0-0.7) k/uL Basophils # (0-0.2) k/uL PT (9.0-12.0) sec INR (<1.2) APTT (22.0-30.0) sec Sodium (137-145) mmol/L Potassium (3.5-5.1) mmol/L Chloride (98-107) mmol/L Carbon Dioxide (22-30) mmol/L Anion Gap mmol/L BUN (9-20) mg/dL Creatinine (0.66-1.25) mg/dL Est GFR (CKD-EPI)AfAm (>60 ml/min/1.73 sqM) Est GFR (CKD-EPI)NonAf (>60 ml/min/1.73 sqM) Glucose (74-99) mg/dL Lactic Ac Sepsis Rflx Y Plasma Lactic Acid Silvino (0.7-2.0) mmol/L Calcium (8.4-10.2) mg/dL Total Bilirubin (0.2-1.3) mg/dL AST (17-59) U/L ALT (4-49) U/L Alkaline Phosphatase (38-126) U/L NT-Pro-B Natriuret Pep pg/mL Total Protein (6.3-8.2) g/dL Albumin (3.5-5.0) g/dL Urine Color Urine Appearance (Clear) Urine pH (5.0-8.0) Ur Specific [place] (1.001-1.035) Urine Protein (Negative) Urine Glucose (UA) (Negative) Urine Ketones (Negative) Urine Blood (Negative) Urine Nitrite (Negative) Urine Bilirubin (Negative) Urine Urobilinogen (<2.0) mg/dL Ur Leukocyte Esterase (Negative) Coronavirus (PCR) Not Detected (Not Detectd) Disposition Clinical Impression: Hypotension, Dehydration Disposition: HOME SELF-CARE Condition: Stable Instructions (If sedation given, give patient instructions): Dehydration (ED) Additional Instructions: Please return to the Emergency Department if symptoms worsen or any other concerns. Continue to increase fluid intake. Please follow up with your regular doctor. Is patient prescribed a controlled substance at d/c from ED?: No [facility]errals: [facility] [Primary Care Provider] - 1-2 days
[2020-09-26 15:03] VITALS: BP 122/58; PULSE 52
[2020-09-26 15:32] VITALS: TEMP 97.6
== END 2020-09-26 15:10 | disposition home or self-care (01) ==
LOC: EC 11:58
DX: E86.0 Dehydration (principal); I95.9 Hypotension, unspecified; R09.89 Other specified symptoms and signs involving the circulatory and respiratory systems; I25.119 Atherosclerotic heart disease of native coronary artery with unspecified angina pectoris; I50.9 Heart failure, unspecified; I11.0 Hypertensive heart disease with heart failure; J44.9 Chronic obstructive pulmonary disease, unspecified; I25.2 Old myocardial infarction; K21.9 Gastro-esophageal reflux disease without esophagitis; I48.20 Chronic atrial fibrillation, unspecified; Z79.01 Long term (current) use of anticoagulants; Z20.822 Contact with and (suspected) exposure to COVID-19; Z79.51 Long term (current) use of inhaled steroids; Z79.899 Other long term (current) drug therapy; Z86.718 Personal history of other venous thrombosis and embolism; Z86.73 Personal history of transient ischemic attack (TIA), and cerebral infarction without residual deficits; Z95.2 Presence of prosthetic heart valve; Z85.46 Personal history of malignant neoplasm of prostate; Z90.79 Acquired absence of other genital organ(s); Z87.891 Personal history of nicotine dependence; Z90.49 Acquired absence of other specified parts of digestive tract; Z95.5 Presence of coronary angioplasty implant and graft
CPT/HCPCS: 36415; 71046; 80053; 81003; 83605; 83880; 85025; 85610; 85730; 87635; 93005; 96360; 99284

== ENCOUNTER → 2020-11-21 | Outpatient (CLI) | payer OTHER ==
--- NOTE | 2020-11-21 12:24 | FL ---
Modified barium swallow. HISTORY: Dysphagia. Modified barium swallow was performed with the department of speech pathology. The patient was prese nted with various consistencies of barium. There is evidence of aspiration with thin liquid barium and pudding mixtures. Full report is to lilian alfred from the department of speech pathology. Impression: As above.
== END | disposition home or self-care (01) ==
LOC: RADFLMAIN 11:11
PROVIDERS: ATTEND Physician Assistant Medical
DX: R13.10 Dysphagia, unspecified (principal)
CPT/HCPCS: 74230

== ENCOUNTER 2020-12-24 13:29 | Observation (INO) | payer OTHER, MEDICARE, BC ==
--- NOTE | 2020-12-24 14:01 | ED ---
Chest Pain HPI - General Chief Complaint: Chest Pain Stated Complaint: low BP, chest pain Time Seen by Provider: 12/24/20 13:40 Source: patient, family, RN notes reviewed, old records reviewed Mode of arrival: wheelchair Limitations: no limitations - History of Present Illness Initial Comments: This is a 70-year-old male history of multiple medical problems including bypass surgery stroke subsequent to that feeding tube was brought in because of low blood pressure past couple days 85/52 days ago this morning was somewhat improved he is on metoprolol was instructed to take the blood pressure below 110/65. He also chest pain today he does have a chronic cough he is a poor historian. No complaints of nausea vomiting diarrhea. Information MD Complaint: chest pain, other - Related Data Home Medications Medication Instructions Recorded Confirmed Apixaban [Eliquis] 5 mg PEG/G-TUBE BID 08/04/20 12/24/20 Levothyroxine Sodium [Euthyrox] 50 mcg PEG/G-TUBE DAILY 08/04/20 12/24/20 Metoprolol Tartrate 25 mg PEG/G-TUBE DIRECTED 08/04/20 12/24/20 Folic Acid 1 mg PEG/G-TUBE DAILY@1200 08/18/20 12/24/20 Escitalopram [Lexapro] 15 mg PEG/G-TUBE DAILY 09/26/20 12/24/20 Aspirin EC [Ecotrin Low Dose] 81 mg PEG/G-TUBE DAILY 12/24/20 12/24/20 Budesonide/Formoterol Fumarate 2 puff INHALATION RT-BID 12/24/20 12/24/20 [Symbicort 160-4.5 Mcg Inhaler] Jevity 1.5 Pablo Liquid 70 ml PEG/G-TUBE DIRECTED 12/24/20 12/24/20 Mirtazapine [Remeron] 15 mg PEG/G-TUBE HS 12/24/20 12/24/20 Pantoprazole Sodium 40 mg PEG/G-TUBE DAILY 12/24/20 12/24/20 Thiamine [Vitamin B-1] 100 mg PEG/G-TUBE DAILY@1200 12/24/20 12/24/20 Vit C/E/Zn/Coppr/Lutein/Zeaxan 1 cap PEG/G-TUBE DAILY@1200 12/24/20 12/24/20 [Preservision Areds 2 Softgel] Allergies Allergy/AdvReac Type Severity Reaction Status Date / Time No Known Allergies Allergy Verified 12/24/20 13:31 Review of Systems ROS Statement: Those systems with pertinent positive or pertinent negative responses have been documented in the HPI. ROS Other: All systems not noted in ROS Statement are negative. EKG Findings - EKG Results: EKG: interpreted by NANCY ( fibrillation rate is 66 QRS 90 QT since QTC/[address]-T wave changes seen) Past Medical History Past Medical History: Atrial Fibrillation, Atrial Flutter, Coronary Artery Disease (CAD), Cancer, Chest Pain / Angina, Heart Failure, COPD, CVA/TIA, Deep Vein Thrombosis (DVT), Eye Disorder, GERD/Reflux, GI Bleed, Hearing Disorder / Deafness, Hyperlipidemia, Hypertension, Liver Disease, Memory Impairment, Pneumonia, Vascular Disorder Additional Past Medical History / Comment(s): Stable dissection of the descending aorta, chronic atrial fibrillation and is anticoagulated with warfarin, aortic valve replacement with a bioprosthetic valve, pulmonary hypertension, chronic hypoxic respiratory failure with home O2 at , previous pneumonia 2008 and 2014, prostate cancer with prostatectomy, DVT R lower leg x2, macular degeneration L eye, left arm fracture, chronic tinnitus in both ears, gastritis, lower GIm bleed, UTI, liver cirrhosis related to history of alcoholism, hepatitis C at age 14yrs., feeding tube, alcoholism Last Myocardial Infarction Date:: unsure History of Any Multi-Drug Resistant Organisms: None Reported Date of last positivie culture/infection: None MDRO Source:: None Past Surgical History: Cardiac Valve Replacement, Cholecystectomy, Coronary Bypass/CABG, Heart Catheterization, Heart Catheterization With Stent, Hernia Repair, Orthopedic Surgery, Prostate Surgery Additional Past Surgical History / Comment(s): Aortic valve replacement, prostatectomy, right inguinal hernia repair 2, bilateral knee arthroscopy, colonoscopy/polypectomy, EGD, right leg varicose vein stripping, removal of a blood clot from the right lower extremity, cervical surgery d/t injury in [place] and removal of shrapnel's from the right shoulder, feeding tube Past Anesthesia/Blood Transfusion Reactions: No Reported Reaction Date of Last Stent Placement:: 2016 Past Psychological History: No Psychological Hx Reported Smoking Status: Former smoker Past Alcohol Use History: None Reported Past Drug Use History: None Reported - Past Family History Mother Family Medical History: Diabetes Mellitus Additional Family Medical History / Comment(s): Mother at age 74 from diabetic complications. Father Family Medical History: Congestive Heart Failure (CHF) Additional Family Medical History / Comment(s): Father at age 91 yrs. General Exam - General Exam Comments Initial Comments: Pezzer well-developed sec appearing male who is awake and alert Limitations: no limitations General appearance: alert Head exam: Present: atraumatic, normocephalic, normal inspection Eye exam: Present: normal appearance, PERRL, EOMI. Absent: scleral icterus, conjunctival injection, periorbital swelling ENT exam: Present: mucous membranes dry Neck exam: Present: normal inspection. Absent: tenderness, meningismus, lymphadenopathy Respiratory exam: Present: other (Some decreased nonetheless I compared the right). Absent: respiratory distress, wheezes, rales, rhonchi, stridor Cardiovascular Exam: Present: irregular rhythm. Absent: systolic murmur, diastolic murmur, rubs, gallop, clicks GI/Abdominal exam: Present: soft, normal bowel sounds, other (PEG tube in place no evidence of any abnormalities). Absent: distended, tenderness, guarding, rebound, rigid Extremities exam: Present: normal inspection, full ROM, normal capillary refill. Absent: tenderness, pedal edema, joint swelling, calf tenderness Back exam: Present: normal inspection Neurological exam: Present: alert, oriented X3, CN II-XII intact Psychiatric exam: Present: normal affect, normal mood Skin exam: Present: warm, dry, intact, normal color. Absent: rash Course Vital Signs 12/24/20 12/24/20 12/24/20 13:31 13:34 14:34 Temperature 98.0 F Pulse Rate 72 67 66 Respiratory 16 Rate Blood Pressure 124/64 88/57 103/49 O2 Sat by Pulse 98 Oximetry 12/24/20 12/24/20 12/24/20 15:30 15:34 15:58 Temperature Pulse Rate 62 88 Respiratory 18 Rate Blood Pressure 102/51 99/79 102/51 O2 Sat by Pulse 97 Oximetry Chest Pain MDM - MDM She refused findings patient will be admitted for evaluation chest pain I did discuss case with Dr. Hilario. Disposition Clinical Impression: Chest pain Disposition: ADMITTED IP TO THIS [facility] Condition: Fair Referrals: [facility],Clinic [Primary Care Provider] - 1-2 days
[2020-12-24 14:22] LABS: Basophils % (A) 0 %; Eosinophils # (A) 0.1 k/uL (0-0.7); Eosinophils % (A) 1 %; HCT 34.6 % (39.0-53.0); HGB 11.6 gm/dL (13.0-17.5); Lymphocytes % (A) 11 %; MCH 31.4 pg (25.0-35.0); MCHC 33.4 g/dL (31.0-37.0); MCV 94.1 fL (80.0-100.0); Mean Platelet Volume 9.4; Monocytes # (A) 0.5 k/uL (0-1.0); Monocytes % (A) 6 %; Neutrophils # (A) 7.3 k/uL (1.3-7.7); Neutrophils % (A) 80 %; Platelet Count 105 k/uL (150-450); RBC 3.68 m/uL (4.30-5.90); RDW 14.4 % (11.5-15.5); WBC 9.1 k/uL (3.8-10.6)
[2020-12-24 14:33] LABS: ALT 25 U/L (4-49); AST 44 U/L (17-59); African American GFR (CKD) >90 (>60 ml/min/1.73 sqM); Albumin 3.8 g/dL (3.5-5.0); Alkaline Phosphatase 148 U/L (38-126); Anion Gap 5 mmol/L; Blood Urea Nitrogen 19 mg/dL (9-20); Calcium 8.7 mg/dL (8.4-10.2); Carbon Dioxide 34 mmol/L (22-30); Chloride 97 mmol/L (98-107); Creatine Kinase 29 U/L (55-170); Glucose 118 mg/dL (74-99); Lipase 148 U/L (23-300); Magnesium 2.1 mg/dL (1.6-2.3); Non-African American GFR(CKD) 89 (>60 ml/min/1.73 sqM); Potassium 4.5 mmol/L (3.5-5.1); Sodium 136 mmol/L (137-145); Total Bilirubin 0.6 mg/dL (0.2-1.3)
[2020-12-24 14:40] LABS: INR 1.1 (<1.2); Partial Thromboplastin Time 34.6 sec (22.0-30.0); Prothrombin Time 11.4 sec (9.0-12.0)
--- NOTE | 2020-12-24 14:56 | XR ---
EXAMINATION TYPE: XR chest 2V DATE OF EXAM: 12/24/2020 COMPARISON: 09/26/2020 08/18/2020 HISTORY: Chest pain, bradycardia, cough TECHNIQUE: Frontal and lateral views of the chest are obtained. FINDINGS: Status post median sternotomy. Prosthetic aortic valve. Tortuous thoracic aorta with mild athetotic calcination in the aortic knob. Heart size is mildly enlarged, stable. There is mild airspa ce opacity. This was seen 08/18/2020 No pneumothorax or pleural effusion. Surgical clips project over the right upper lobe. Osteopenia and degenerative changes of the thoracic spine. IMPRESSION: 1. Cardiomegaly with prosthetic aortic valve.. Status post median sternotomy 2. Mild streaky retrocardiac airspace opacity best seen on lateral view is stable from a prior exam d ated 08/18/2020. This may represent atelectasis, scarring or pneumonitis.
[2020-12-24] MEDS ORDERED: NITROGLYCERIN SL TABS 0.4 MG TAB SUBLINGUAL PRN (16:58)
[2020-12-24] MEDS ORDERED: METOPROLOL TARTRATE 25 MG TAB PEG/G-TUBE SCH (17:15)
[2020-12-24] MEDS ORDERED: NON FORMULARY DRUG (Jevity 1.5 Cal Liquid 1,000 ML Liquid) PEG/G-TUBE SCH (17:15)
--- NOTE | 2020-12-24 18:02 | P.HPIM ---
History of Present Illness 70-year-old male came in the with complaints of low blood pressure patient was apparently hypotensive at the 85/52. Patient was evaluated by physician ER and was admitted for mainly chest pain. Patient blood pressures better now. Patient denied any chest pain to me patient was a pointing his pain to the epigastric area patient has a speech difficulty because of which she is a difficult historian. She did have stroke with weakness in the right upper extremity as well as speech problems. Patient does have history of atrial f ibrillation, patient is on Eliquis for that patient had aspirations in the past because of which patient had a PEG tube that was placed in month of August this year and patient is on tube feedings . Patient does have any fever chills, EKG showed atrial fibrillation without any acute ST-T wave changes. 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 Review of Systems REVIEW OF SYSTEMS: CONSTITUTIONAL: No fever, no malaise, no fatigue. HEENT: No recent visual problems or hearing problems. Denied any sore throat. CARDIOVASCULAR: No chest pain, orthopnea, PND, no palpitations, no syncope. PULMONARY: No shortness of breath, no cough, no hemoptysis. GASTROINTESTINAL: No diarrhea, no nausea, no vomiting. NEUROLOGICAL: No headaches, no weakness, no numbness. HEMATOLOGICAL: Denies any bleeding or petechiae. GENITOURINARY: Denies any burning micturition, frequency, or urgency. MUSCULOSKELETAL/RHEUMATOLOGICAL: Denies any joint pain, swelling, or any muscle pain. ENDOCRINE: Denies any polyuria or polydipsia. The rest of the 14-point review of systems is negative. Past Medical History Past Medical History: Atrial Fibrillation, Atrial Flutter, Coronary Artery Disease (CAD), Cancer, Chest Pain / Angina, Heart Failure, COPD, CVA/TIA, Deep Vein Thrombosis (DVT), Eye Disorder, GERD/Reflux, GI Bleed, Hearing Disorder / Deafness, Hyperlipidemia, Hypertension, Liver Disease, Memory Impairment, Pneumonia, Vascular Disorder Additional Past Medical History / Comment(s): Stable dissection of the descending aorta, chronic atrial fibrillation and is anticoagulated with warfarin, aortic valve replacement with a bioprosthetic valve, pulmonary hypertension, chronic hypoxic respiratory failure with home O2 at , previous pneumonia 2008 and 2015, prostate cancer with prostatectomy, DVT R lower leg x2, macular degeneration L eye, left arm fracture, chronic tinnitus in both ears, ga stritis, lower GIm bleed, UTI, liver cirrhosis related to history of alcoholism, hepatitis C at age 14yrs., feeding tube, alcoholism Last Myocardial Infarction Date:: unsure History of Any Multi-Drug Resistant Organisms: None Reported Date of last positivie culture/infection: None MDRO Source:: None Past Surgical History: Cardiac Valve Replacement, Cholecystectomy, Coronary Bypass/CABG, Heart Catheterization, Heart Catheterization With Stent, Hernia Repair, Orthopedic Surgery, Prostate Surgery Additional Past Surgical History / Comment(s): Aortic valve replacement, prostatectomy, right inguinal hernia repair 2, bilateral knee arthroscopy, co lonoscopy/polypectomy, EGD, right leg varicose vein stripping, removal of a blood clot from the right lower extremity, cervical surgery d/t injury in [place] and removal of shrapnel's from the right shoulder, feeding tube Past Anesthesia/Blood Transfusion Reactions: No Reported Reaction Date of Last Stent Placement:: 2016 Past Psychological History: No Psychological Hx Reported Smoking Status: Former smoker Past Alcohol Use History: None Reported Past Drug Use History: None Reported - Past Family History Mother Family Medical History: Diabetes Mellitus Additional Family Medical History / Comment(s): Mother at age 74 from diabetic complications. Father Family Medical History: Congestive Heart Failure (CHF) Additional Family Medical History / Comment(s): Father at age 91 yrs. Medications and Allergies Home Medications Medication Instructions Recorded Confirmed Type Apixaban [Eliquis] 5 mg PEG/G-TUBE BID 08/04/20 12/24/20 History Levothyroxine Sodium [Euthyrox] 50 mcg PEG/G-TUBE DAILY 08/04/20 12/24/20 History Metoprolol Tartrate 25 mg PEG/G-TUBE DIRECTED 08/04/20 12/24/20 History Folic Acid 1 mg PEG/G-TUBE DAILY@1200 08/18/20 12/24/20 History Escitalopram [Lexapro] 15 mg PEG/G-TUBE DAILY 09/26/20 12/24/20 History Aspirin EC [Ecotrin Low Dose] 81 mg PEG/G-TUBE DAILY 12/24/20 12/24/20 History Budesonide/Formoterol Fumarate 2 puff INHALATION RT-BID 12/24/20 12/24/20 History [Symbicort 160-4.5 Mcg Inhaler] Jevity 1.5 Pablo Liquid 70 ml PEG/G-TUBE DIRECTED 12/24/20 12/24/20 History Mirtazapine [Remeron] 15 mg PEG/G-TUBE HS 12/24/20 12/24/20 History Pantoprazole Sodium 40 mg PEG/G-TUBE DAILY 12/24/20 12/24/20 History Thiamine [Vitamin B-1] 100 mg PEG/G-TUBE DAILY@1200 12/24/20 12/24/20 History Vit C/E/Zn/Coppr/Lutein/Zeaxan 1 cap PEG/G-TUBE DAILY@1200 12/24/20 12/24/20 History [Preservision Areds 2 Softgel] Allergies Allergy/AdvReac Type Severity Reaction Status Date / Time No Known Allergies Allergy Verified 12/24/20 13:31 Physical Exam Vitals: Vital Signs Temp Pulse Resp BP Pulse Ox 12/24/20 15:58 102/51 12/24/20 15:34 88 99/79 12/24/20 15:30 62 18 102/51 97 12/24/20 14:34 66 103/49 12/24/20 13:34 67 88/57 12/24/20 13:31 98.0 F 72 16 124/64 98 Intake and Output 12/24/20 12/24/20 12/24/20 06:59 14:59 22:59 Other: Weight 77.111 kg PHYSICAL EXAMINATION: GENERAL: The patient is alert and oriented x3, not in any acute distress. Well developed, well nourished. had speech abnormality HEENT: Pupils are round and equally reacting to light. EOMI. No scleral icterus. No conjunctival pallor. Normocephalic, atraumatic. No pharyngeal erythema. No thyromegaly. CARDIOVASCULAR: S1 and S2 present. No murmurs, rubs, or gallops. PULMONARY: Chest is clear to auscultation, no wheezing or crackles. ABDOMEN: Soft, nontender, nondistended, normoactive bowel sounds. No palpable organomegaly. MUSCULOSKELETAL: No joint swelling or deformity. EXTREMITIES: No cyanosis, clubbing, or pedal edema. NEUROLOGICAL: No new focal deficits but patient has generalized weakness with increased more weakness on the right upper extremity which is chronic and does have motor speech abnormality. SKIN: No rashes. Results CBC & Chem 7: 12/24/20 13:57 12/24/20 13:57 Labs: Abnormal Lab Results - Last 24 Hours (Table) 12/24/20 12/24/20 12/24/20 Range/Units 13:57 13:57 13:57 RBC 3.68 L (4.30-5.90) m/uL Hgb 11.6 L (13.0-17.5) gm/dL Hct 34.6 L (39.0-53.0) % Plt Count 105 L (150-450) k/uL APTT 34.6 H (22.0-30.0) sec Sodium 136 L (137-145) mmol/L Chloride 97 L (98-107) mmol/L Carbon Dioxide 34 H (22-30) mmol/L Glucose 118 H (74-99) mg/dL Alkaline Phosphatase 148 H (38-126) U/L Creatine Kinase 29 L (55-170) U/L Assessment and Plan Plan: -Epigastric abdominal discomfort: Patient is not able to clearly characterize the pain. Patient will be started on Protonix possibility of gastritis we'll [place] in abdominal x-ray to rule out any bowel obstruction. Patient denied any nausea. -Concerns of chest pain: Cardiology was consulted will obtain 2 more sets of troponins. Patient denied any chest pain to me. -History of cerebrovascular accident with residual speech problems swallow problems in right upper extremity weakness patient presently has a PEG tube patient will be resumed on PEG tube feedings -Chronic atrial fibrillation patient is on Eliquis which will be continued -Mild hypotension probably due to intravascular depletion patient will be started on IV fluids -coronary artery disease: History of CABG in the past -aortic stenosis with the cardiac valve replacement in the past with a bioprost hetic aortic valve -History of DVT in the past -COPD without any acute exacerbation -Gastroesophageal reflux disease -Hyperlipidemia -Hypertension -Peripheral vascular disease
--- NOTE | 2020-12-24 18:45 | XR ---
EXAMINATION TYPE: XR abdomen 2V DATE OF EXAM: 12/24/2020 COMPARISON: 09/26/2020 HISTORY: Chest pain FINDINGS: 2 views supine and upright were obtained. There is no sign of intestinal obstruction or pne umoperitoneum. Fecal pattern is normal. There is no evidence of a mass. There are clips from cholecys tectomy. Is gastrostomy tube noted. I see no evidence of a mass. Lung bases are clear. IMPRESSION: Nonacute abdomen.
[2020-12-24] MEDS: PANTOPRAZOLE 40 MG/10 ML VIAL IVP SCH (19:02)
[2020-12-24] MEDS: SODIUM CHLORIDE 0.9% 1,000 ML IV SCH (19:02)
[2020-12-24] MEDS: SYMBICORT 160-4.5 MCG INHALER INHALATION SCH (20:18)
[2020-12-24] MEDS ORDERED: MIRTAZAPINE 15 MG TAB PEG/G-TUBE SCH (21:00)
[2020-12-24] MEDS: APIXABAN 5 MG TAB PEG/G-TUBE SCH (21:58)
[2020-12-25] MEDS: SODIUM CHLORIDE 0.9% 1,000 ML IV SCH (04:15)
[2020-12-25] MEDS ORDERED: LEVOTHYROXINE 50 MCG TAB PEG/G-TUBE SCH (06:30)
[2020-12-25] MEDS ORDERED: PANTOPRAZOLE 40 MG TABLET PO SCH (07:30)
[2020-12-25 07:42] VITALS: BP 109/45; RESP 20; TEMP 97.6
[2020-12-25] MEDS: SYMBICORT 160-4.5 MCG INHALER INHALATION SCH (07:43)
[2020-12-25] MEDS ORDERED: ASPIRIN 81 MG PEG/G-TUBE SCH (09:00)
[2020-12-25] MEDS ORDERED: ASPIRIN 325 MG TAB PO SCH (09:00)
[2020-12-25] MEDS ORDERED: ESCITALOPRAM 5 MG TAB PEG/G-TUBE SCH (09:00)
[2020-12-25] MEDS: APIXABAN 5 MG TAB PEG/G-TUBE SCH (09:33)
[2020-12-25] MEDS: PANTOPRAZOLE 40 MG/10 ML VIAL IVP SCH (09:33)
[2020-12-25 11:47] LABS: Chol/HDL Ratio 2.48; LDL Cholesterol,Calculated 32.8 mg/dL (0.0-131.0); VLDL Calculation 13.2 mg/dL (5.00-40.00)
[2020-12-25] MEDS ORDERED: THIAMINE 100 MG TAB PEG/G-TUBE SCH (12:00)
[2020-12-25] MEDS ORDERED: FOLIC ACID 1 MG TAB PEG/G-TUBE SCH (12:00)
[2020-12-25] MEDS ORDERED: VIT A,C & E-LUTEIN-MINERALS 1 EACH TAB PEG/G-TUBE SCH (12:00)
[2020-12-25 12:37] VITALS: PULSE 75
--- NOTE | 2020-12-25 13:27 | P.CRDCN ---
History of Present Illness History of present illness: HISTORY OF PRESENTING ILLNESS This is a pleasant 70-year-old male past medical history significant for coronary artery disease status post PCI of the proximal LAD in 2017, hypertension, dyslipidemia, valvular heart disease status post aortic valve replacement, chronic persistent atrial fibrillation (on Eliquis), COPD and former nicotine dependence, laparoscopic cholecystectomy 08/2020. He also had a prolonged hospitalization sometime over the summer of 2019 of which he required PEG and trach placement. He follows in the office with Dr. Sanabria. We have been asked to see in consultation for chest pain. He presents to the emergency department with hypotension. He was apparently hypotensive at the 80s/50s. There is a documented blood pressure in the ER at 88/57. Patient's blood pressure has been stable at this time BP 109/45, heart rate 66, afebrile, maintaining oxygen saturations 90% on 2 L nasal cannula. Patient denies chest pain. He does endorse some mild shortness of breath. He denies chest pain, palpitations, dizziness, lightheadedness, syncope. He saw Dr. Dr. Sanabria in the office 01/2020 underwent a Lexiscan stress test that was negative for reversible cardiac ischemia. An echocardiogram obtained in the office 10/22/2020 revealed preserved LV systolic function with ejection fraction 50%, mildly dilated right ventricle, severely dilated left atrium, Severely dilated right atrium, biologic aortic valve prosthesis with moderate prosthetic valvular regurgitation, moderate to severe mitral regurgitation, moderate tricuspid regurgitation. DIAGNOSTICS EKG reveals atrial fibrillation, heart rate 66, no significant STT wave abnormalities. Telemetry tracings indicate atrial fibrillation with primarily controlled ventricular rates. Chest xray revealed prosthetic aortic valve. Mild streaky retrocardiac airspace PACs stable from prior exam. Heart size is mildly enlarged but stable. Laboratory reviewed, WBC 9.1, hemoglobin 7.6, platelets 5, sodium 136, potassium 4.5, serum creatinine 0.81, troponin negative 3, proBNP 1640, triglycerides 66, cholesterol 77, LDL 32 Current cardiac medications include Eliquis 5 mg twice a day, atorvastatin 40 mg daily, metoprolol 25 mg 3 times a day and torsemide 20 mg daily. REVIEW OF SYSTEMS At the time of my exam: CONSTITUTIONAL: Denies fever or chills. CARDIOVASCULAR: Denies chest pain, shortness of breath, orthopnea, PND or palpitations. RESPIRATORY: Denies cough. GASTROINTESTINAL: Complains of abdominal pain. Denies diarrhea, constipation, nausea or vomiting. MUSCULOSKELETAL: Denies myalgias. NEUROLOGIC: Denies numbness, tingling, headache or weakness. ENDOCRINE: Denies fatigue, weight change, polydipsia or polyurina. GENITOURINARY: Denies burning, hematuria or urgency with micturation. HEMATOLOGIC: Denies history of anemia or bleeding. PHYSICAL EXAMINATION Blood pressure 114/69 heart rate 90 afebrile and maintaining oxygen saturation on nasal cannula. CONSTITUTIONAL: No apparent distress. HEENT: Head is normocephalic. Pupils are equal, round. Sclerae anicteric. Mucous membranes of the mouth are moist. No JVD. No carotid bruit. CHEST EXAMINATION: Coarse crackles, no rhonchi or wheezes. No chest wall tenderness is noted on palpation or with deep breathing. HEART EXAMINATION: Irregular rate and rhythm. S1, S2 heard. Systolic ejection murmur at the base and apex, no gallops or rub. ABDOMEN: Soft, tender in the upper portion on palpation. PEG tube in place to left upper quadrant. Positive bowel sounds. EXTREMITIES: 2+ peripheral pulses, trace lower extremity edema on the right with no swelling on the left and no calf tenderness. NEUROLOGIC EXAMINATION: Patient is awake, alert and oriented x3. ASSESSMENT Coronary artery disease s/p PCI to proximal LAD 2016 Chronic persistent atrial fibrillation on eliquis Valvular heart disease s/p bioprostheic aortic valve replacement Hypertension Dyslipidemia COPD Chronic nicotine dependence PLAN Patient does not complain of any chest pain. His blood pressures have been stable since admission Clinically he is euvolemic with no evidence to suggest overt heart failure. He is having no symptoms of chest pain to suggest angina. Recent stress test and echocardiogram from the office reviewed. We will sign off at this time. Please reach out with any further questions or concerns Patient can follow up in the office with Dr. Sanabria He has an appointment on 01/01/2021 at 3:30pm Nurse Practitioner note has been reviewed, I agree with a documented findings and plan of care. Patient was seen and examined. 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, chronic atrial fibrillation and is anticoagulated with warfarin, aortic valve replacement with a bioprosthetic valve, pulmonary hypertension, chronic hypoxic respiratory failure with home O2 at , previous pneumonia 2008 and 2014, prostate cancer with prostatectomy, DVT R lower leg x2, macular degeneration L eye, left arm fracture, chronic tinnitus in both ears, gastritis, lower GIm bleed, UTI, liver cirrhosis related to history of alcoholism, hepatitis C at age 14yrs., feeding tube, alcoholism Last Myocardial Infarction Date:: unsure History of Any Multi-Drug Resistant Organisms: None Reported Date of last positivie culture/infection: None MDRO Source:: None Past Surgical History: Cardiac Valve Replacement, Cholecystectomy, Coronary Bypass/CABG, Heart Catheterization, Heart Catheterization With Stent, Hernia Repair, Orthopedic Surgery, Prostate Surgery Additional Past Surgical History / Comment(s): Aortic valve replacement, prostatectomy, right inguinal hernia repair 2, bilateral knee arthroscopy, colonoscopy/polypectomy, EGD, right leg varicose vein stripping, removal of a blood clot from the right lower extremity, cervical surgery d/t injury in [place] and removal of shrapnel's from the right shoulder, feeding tube Past Anesthesia/Blood Transfusion Reactions: No Reported Reaction Date of Last Stent Placement:: 2016 Past Psychological History: No Psychological Hx Reported Smoking Status: Former smoker Past Alcohol Use History: None Reported Past Drug Use History: None Reported - Past Family History Mother Family Medical History: Diabetes Mellitus Additional Family Medical History / Comment(s): Mother at age 74 from diabetic complications. Father Family Medical History: Congestive Heart Failure (CHF) Additional Family Medical History / Comment(s): Father at age 91 yrs. Medications and Allergies Home Medications Medication Instructions Recorded Confirmed Type Apixaban [Eliquis] 5 mg PEG/G-TUBE BID 08/04/20 12/24/20 History Levothyroxine Sodium [Euthyrox] 50 mcg PEG/G-TUBE DAILY 08/04/20 12/24/20 History Metoprolol Tartrate 25 mg PEG/G-TUBE DIRECTED 08/04/20 12/24/20 History Folic Acid 1 mg PEG/G-TUBE DAILY@1200 08/18/20 12/24/20 History Escitalopram [Lexapro] 15 mg PEG/G-TUBE DAILY 09/26/20 12/24/20 History Aspirin EC [Ecotrin Low Dose] 81 mg PEG/G-TUBE DAILY 12/24/20 12/24/20 History Budesonide/Formoterol Fumarate 2 puff INHALATION RT-BID 12/24/20 12/24/20 History [Symbicort 160-4.5 Mcg Inhaler] Jevity 1.5 Pablo Liquid 70 ml PEG/G-TUBE DIRECTED 12/24/20 12/24/20 History Mirtazapine [Remeron] 15 mg PEG/G-TUBE HS 12/24/20 12/24/20 History Pantoprazole Sodium 40 mg PEG/G-TUBE DAILY 12/24/20 12/24/20 History Thiamine [Vitamin B-1] 100 mg PEG/G-TUBE DAILY@1200 12/24/20 12/24/20 History Vit C/E/Zn/Coppr/Lutein/Zeaxan 1 cap PEG/G-TUBE DAILY@1200 12/24/20 12/24/20 History [Preservision Areds 2 Softgel] Allergies Allergy/AdvReac Type Severity Reaction Status Date / Time No Known Allergies Allergy Verified 12/24/20 13:31 Physical Exam Vitals: Vital Signs Temp Pulse Resp BP Pulse Ox 12/24/20 17:53 98.0 F 63 18 116/48 92 L 12/24/20 15:58 102/51 12/24/20 15:34 88 99/79 12/24/20 15:30 62 18 102/51 97 12/24/20 14:34 66 103/49 12/24/20 13:34 67 88/57 12/24/20 13:31 98.0 F 72 16 124/64 98 Intake and Output 12/24/20 12/24/20 12/24/20 06:59 14:59 22:59 Other: Weight 77.111 kg Results 12/24/20 13:57 12/24/20 13:57 Cardiac Enzymes 12/24/20 12/24/20 Range/Units 13:57 13:57 AST 44 (17-59) U/L Troponin I <0.012 (0.000-0.034) ng/mL Coagulation 12/24/20 Range/Units 13:57 PT 11.4 (9.0-12.0) sec APTT 34.6 H (22.0-30.0) sec CBC 12/24/20 Range/Units 13:57 WBC 9.1 (3.8-10.6) k/uL RBC 3.68 L (4.30-5.90) m/uL Hgb 11.6 L (13.0-17.5) gm/dL Hct 34.6 L (39.0-53.0) % Plt Count 105 L (150-450) k/uL Comprehensive Metabolic Panel 12/24/20 Range/Units 13:57 Sodium 136 L (137-145) mmol/L Potassium 4.5 (3.5-5.1) mmol/L Chloride 97 L (98-107) mmol/L Carbon Dioxide 34 H (22-30) mmol/L BUN 19 (9-20) mg/dL Creatinine 0.81 (0.66-1.25) mg/dL Glucose 118 H (74-99) mg/dL Calcium 8.7 (8.4-10.2) mg/dL AST 44 (17-59) U/L ALT 25 (4-49) U/L Alkaline Phosphatase 148 H (38-126) U/L Total Protein 7.0 (6.3-8.2) g/dL Albumin 3.8 (3.5-5.0) g/dL Current Medications Generic Name Dose Route Start Last Admin Trade Name Freq PRN Reason Stop Dose Admin Apixaban 5 mg 12/24/20 21:00 Apixaban 5 Mg Tab PEG/G-TUBE BID [facility] Aspirin 81 mg 12/25/20 09:00 Aspirin 81 Mg PEG/G-TUBE DAILY [facility] Budesonide/Formoterol Fumarate 2 puff 12/24/20 20:00 Symbicort 160-4.5 Mcg Inhaler INHALATION RT-BID [facility] Escitalopram Oxalate 15 mg 12/25/20 09:00 Escitalopram 5 Mg Tab PEG/G-TUBE DAILY [facility] Folic Acid 1 mg 12/25/20 12:00 Folic Acid 1 Mg Tab PEG/G-TUBE DAILY@1200 JAYLA Sodium Chloride 1,000 mls @ 100 mls/hr 12/24/20 18:00 Saline 0.9% IV .Q10H [facility] Levothyroxine Sodium 50 mcg 12/25/20 06:30 Levothyroxine 50 Mcg Tab PEG/G-TUBE DAILY@0630 [facility] Mirtazapine 15 mg 12/24/20 21:00 Mirtazapine 15 Mg Tab PEG/G-TUBE HS [facility] Multivitamins/Minerals 1 each 12/25/20 12:00 Vit A,C & K-Sztluq-Igregkru 1 Each Tab PEG/G-TUBE DAILY@1200 [facility] Nitroglycerin 0.4 mg 12/24/20 16:58 Nitroglycerin Sl Tabs 0.4 Mg Tab SUBLINGUAL Q5M PRN Chest Pain Pantoprazole Sodium 40 mg 12/24/20 17:45 Pantoprazole 40 Mg/10 Ml Vial IVP DAILY [facility] Thiamine HCl 100 mg 12/25/20 12:00 Thiamine 100 Mg Tab PEG/G-TUBE DAILY@1200 [facility] Intake and Output 12/24/20 12/24/20 12/24/20 06:59 14:59 22:59 Other: Weight 77.111 kg Patient Weight 12/25/20 06:59 Weight 77.111 kg 12/24/20 13:57 12/24/20 13:57
--- NOTE | 2020-12-26 09:45 | P.DS ---
Providers Date of admission: 12/24/20 16:58 Expected date of discharge: 12/25/20 Attending physician: Sussy Hilario Consults: 12/24/20 16:58 Consult Physician Urgent Consulting Provider: Evan Santana Consult Reason/Comments: chest pain Do you want consulting provider notified?: Yes Primary care physician: [facility] Course: Final diagnosis -Epigastric abdominal discomfort: possibility of gastritis, ruled out obstruction, resolved -Concerns of chest pain: Acute coronary event ruled out -History of cerebrovascular accident with residual speech problems swallow problems in right upper extremity weakness patient presently has a PEG tube -Chronic atrial fibrillation -Mild hypotension probably due to intravascular depletion -coronary artery disease: History of CABG in the past -aortic stenosis with the cardiac valve replacement in the past with a bioprosthetic aortic valve -History of DVT in the past -COPD without any acute exacerbation -Gastroesophageal reflux disease -Hyperlipidemia -Hypertension -Peripheral vascular disease Discharge disposition Patient is being discharged in a stable condition with guarded prognosis to home. Patient will follow-up with [facility] in the outpatient setting upon discharge. Patient is to still follow up with Dr. Sanabria cardiology as scheduled. Total time taken is greater than 35 minutes. Hospital course 70-year-old male came in the with complaints of low blood pressure patient was apparently hypotensive at the 85/52. Patient was evaluated by physician ER and was admitted for mainly chest pain. Patient blood pressures better now. Patient denied any chest pain to me patient was a pointing his pain to the epigastric area patient has a speech difficulty because of which she is a d ifficult historian. She did have stroke with weakness in the right upper extremity as well as speech problems. Patient does have history of atrial fibrillation, patient is on Eliquis for that patient had aspirations in the past because of which patient had a PEG tube that was placed in month of August this year and patient is on tube feedings . Patient does have any fever chills, EKG showed atrial fibrillation without any acute ST-T wave changes. 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 12/25/2020 Patient is seen and evaluated in follow-up and has been evaluated by cardiology and recommending outpatient follow-up and patient is asking when he can go home. Patient denies any over night issues. Patient will be following up with Dr. Sanabria outpatient as scheduled. Currently no reports of chest pain, shortness of breath, or palpitations. Patient is afebrile. No reports of nausea or vomiting and patient is tolerating diet. Patient will be discharged home today. On exam vital signs are stable. Cardio S1, S2 are muffled. Respiratory system shows diminished breath sounds at the bases with no wheezing or rhonchi noted. Abdomen is soft and nontender. Nervous system shows no focal deficits. Please refer to medication reconciliation sheet for a list of medications. Patient Condition at Discharge: Fair Plan - Discharge Summary Discharge Rx Participant: No New Discharge Prescriptions: Continue Levothyroxine Sodium [Euthyrox] 50 mcg PEG/G-TUBE DAILY Apixaban [Eliquis] 5 mg PEG/G-TUBE BID Metoprolol Tartrate 25 mg PEG/G-TUBE DIRECTED Folic Acid 1 mg PEG/G-TUBE DAILY@1200 Escitalopram [Lexapro] 15 mg PEG/G-TUBE DAILY Thiamine [Vitamin B-1] 100 mg PEG/G-TUBE DAILY@1200 Jevity 1.5 Pablo Liquid 70 ml PEG/G-TUBE DIRECTED Aspirin EC [Ecotrin Low Dose] 81 mg PEG/G-TUBE DAILY Budesonide/Formoterol Fumarate [Symbicort 160-4.5 Mcg Inhaler] 2 puff INHALATION RT-BID Vit C/E/Zn/Coppr/Lutein/Zeaxan [Preservision Areds 2 Softgel] 1 cap PEG/G- TUBE DAILY@1200 Pantoprazole Sodium 40 mg PEG/G-TUBE DAILY Mirtazapine [Remeron] 15 mg PEG/G-TUBE HS Discharge Medication List Apixaban [Eliquis] 5 mg PEG/G-TUBE BID 08/04/20 [History] Levothyroxine Sodium [Euthyrox] 50 mcg PEG/G-TUBE DAILY 08/04/20 [History] Metoprolol Tartrate 25 mg PEG/G-TUBE DIRECTED 08/04/20 [History] Folic Acid 1 mg PEG/G-TUBE DAILY@1200 08/18/20 [History] Escitalopram [Lexapro] 15 mg PEG/G-TUBE DAILY 09/26/20 [History] Aspirin EC [Ecotrin Low Dose] 81 mg PEG/G-TUBE DAILY 12/24/20 [History] Budesonide/Formoterol Fumarate [Symbicort 160-4.5 Mcg Inhaler] 2 puff INHALATION RT-BID 12/24/20 [History] Jevity 1.5 Pablo Liquid 70 ml PEG/G-TUBE DIRECTED 12/24/20 [History] Mirtazapine [Remeron] 15 mg PEG/G-TUBE HS 12/24/20 [History] Pantoprazole Sodium 40 mg PEG/G-TUBE DAILY 12/24/20 [History] Thiamine [Vitamin B-1] 100 mg PEG/G-TUBE DAILY@1200 12/24/20 [History] Vit C/E/Zn/Coppr/Lutein/Zeaxan [Preservision Areds 2 Softgel] 1 cap PEG/G-TUBE DAILY@1200 12/24/20 [History] Follow up Appointment(s)/Referral(s): Leisa Sanabria MD [STAFF PHYSICIAN] - 01/01/21 3:30 pm (Tenth e Location) [facility],Clinic [Primary Care Provider] - 1-2 days Ambulatory/Diagnostic Orders: Basic Metabolic Panel [LAB.AMB] Time Frame: 3 Days, Location: None Selected Patient Instructions/Handouts: Chest Pain (DC) Activity/Diet/Wound Care/Special Instructions: Activity Limited until follow-up Follow-up with primary care provider outpatient on discharge Follow-up with cardiology outpatient Repeat labs in 2-3 days to monitor electrolytes and kidney functions Discharge Disposition: HOME SELF-CARE
== END 2020-12-25 13:00 | disposition home or self-care (01) ==
LOC: EC 13:29 → 6NMEDSUR 16:58
PROVIDERS: ADMIT Internal Medicine; ATTEND Internal Medicine
DX: R07.89 Other chest pain (principal); R10.816 Epigastric abdominal tenderness; I95.9 Hypotension, unspecified; J96.11 Chronic respiratory failure with hypoxia; J44.9 Chronic obstructive pulmonary disease, unspecified; I25.10 Atherosclerotic heart disease of native coronary artery without angina pectoris; I08.3 Combined rheumatic disorders of mitral, aortic and tricuspid valves; I11.0 Hypertensive heart disease with heart failure; I50.9 Heart failure, unspecified; I69.328 Other speech and language deficits following cerebral infarction; I69.331 Monoplegia of upper limb following cerebral infarction affecting right dominant side; Z93.1 Gastrostomy status; I48.92 Unspecified atrial flutter; R41.3 Other amnesia; K21.9 Gastro-esophageal reflux disease without esophagitis; E78.5 Hyperlipidemia, unspecified; I73.9 Peripheral vascular disease, unspecified; H91.90 Unspecified hearing loss, unspecified ear; B19.20 Unspecified viral hepatitis C without hepatic coma; I27.20 Pulmonary hypertension, unspecified; K74.60 Unspecified cirrhosis of liver; H35.30 Unspecified macular degeneration; H93.13 Tinnitus, bilateral; F10.20 Alcohol dependence, uncomplicated; F17.200 Nicotine dependence, unspecified, uncomplicated; Z20.822 Contact with and (suspected) exposure to COVID-19; Z79.01 Long term (current) use of anticoagulants; Z79.82 Long term (current) use of aspirin; Z79.51 Long term (current) use of inhaled steroids; Z79.899 Other long term (current) drug therapy; Z79.890 Hormone replacement therapy; I48.19 Other persistent atrial fibrillation; Z86.718 Personal history of other venous thrombosis and embolism; Z95.3 Presence of xenogenic heart valve; Z95.1 Presence of aortocoronary bypass graft; Z90.49 Acquired absence of other specified parts of digestive tract; Z95.5 Presence of coronary angioplasty implant and graft; Z87.19 Personal history of other diseases of the digestive system; Z87.01 Personal history of pneumonia (recurrent); Z85.46 Personal history of malignant neoplasm of prostate; Z98.890 Other specified postprocedural states; Z83.3 Family history of diabetes mellitus; Z82.49 Family history of ischemic heart disease and other diseases of the circulatory system
CPT/HCPCS: 96376; 93005 ×2; 96361; 96374; 99285; 36415; 94640; 94760; 83880; 80061; 80053; 82550; 83690; 83735; 84484; 85025; 85610; 85730; 87635; 71046; 74019; G0378 ×2; C9113 ×2

== ENCOUNTER → 2021-01-27 | Outpatient (CLI) | payer OTHER ==
--- NOTE | 2021-01-27 12:17 | FL ---
Modified barium swallow. HISTORY: Dysphagia. Modified barium swallow was performed with the department of speech pathology. The patient was prese nted with various consistencies of barium. Silent aspiration noted with thin, nectar and honey thick barium. [facility] Impression: Silent aspiration noted with thin, nectar and honey thick barium.
== END | disposition home or self-care (01) ==
LOC: RADFLMAIN 10:54
PROVIDERS: ATTEND Physician Assistant Medical
DX: R13.10 Dysphagia, unspecified (principal)
CPT/HCPCS: 74230

== ENCOUNTER → 2021-06-26 | Outpatient (CLI) | payer OTHER ==
--- NOTE | 2021-06-26 11:53 | FL ---
EXAMINATION TYPE: FL barium swallow w video DATE OF EXAM: 06/26/2021 MODIFIED SWALLOW / DEGLUTITION STUDY CLINICAL HISTORY: Dysphagia. History of CVA. TECHNIQUE: Deglutition study is performed utilizing thin liquid barium, honey and nectar thick liqui d barium, barium thick pudding, and broken up cracker in pudding. A total of 3 minutes 5 seconds fluo roscopic time utilized during study. 0 images saved to PACS. COMPARISON: None. FINDINGS: The oral and pharyngeal phases show mild delay in initiation with satisfactory propagation with all modalities tested. There is some penetration of residuals. Patient able to clear with subs equent swallows. No aspiration seen with any modality tested. Moderate pharyngeal residuals were appr eciated. IMPRESSION: Some penetration of residuals. No aspiration. Please refer to speech therapist notes for further details if necessary.
== END | disposition home or self-care (01) ==
LOC: RADUSWWP 10:37
DX: R13.10 Dysphagia, unspecified (principal)
CPT/HCPCS: 74230

== ENCOUNTER 2021-10-15 15:14 | Inpatient (IN) | payer OTHER, MEDICARE, BC ==
[2021-10-15] MEDS ORDERED: IPRATROPIUM 0.5 MG/2.5 ML NEBU INHALATION STA (15:40)
[2021-10-15] MEDS ORDERED: DEXAMETHASONE SOD PHOSPHATE 10 MG/ML 1 ML VIAL IV STA (15:40)
[2021-10-15] MEDS ORDERED: ALBUTEROL NEBULIZED 2.5 MG/3 ML INHALATION STA (15:40)
--- NOTE | 2021-10-15 15:53 | XR ---
EXAMINATION TYPE: XR chest 1V portable DATE OF EXAM: 10/15/2021 HISTORY: Shortness of breath. COMPARISON: 12/24/2020 TECHNIQUE: Single view of the chest is submitted. FINDINGS: Demonstrated are scattered senescent parenchymal change. There is no evidence for focal infiltrate. Cardiomegaly with pulmonary venous congestion. No evidence for overt failure at this time. Hilar and mediastinal structures are within normal limits. Degenerative changes are seen of the dorsal spine. IMPRESSION: 1. Cardiomegaly with pulmonary venous congestion. No evidence for overt failure at this time.
--- NOTE | 2021-10-15 16:06 | ED ---
General Adult HPI - General Chief complaint: Shortness of Breath Stated complaint: CHF SOB, Fall Time Seen by Provider: 10/15/21 15:32 Source: patient Mode of arrival: wheelchair Limitations: no limitations - History of Present Illness Initial comments: Dictation was produced using [employer] dictation software. please excuse any grammatical, word or spelling errors. Chief Complaint: 71-year-old male with significant past medical history presents to the emergency department for 2-3 days of shortness of breath History of Present Illness: This 71-year-old male presents to the emergency department for shortness of breath. Son who is at the bedside provides most of the history present illness. Patient allegedly has significant medical history including A. fib, a flutter, heart failure, COPD and DVT. He takes L Giron and beta blockers. Patient tried to quit smoking recently however pick it up again. Son reports that patient has been coughing. Patient denies any fever chills or night sweats. He denies any chest pain. Son reports that patient fell one week ago and since then has not been back to baseline. The ROS documented in this emergency department record has been reviewed and confirmed by me. Those systems with pertinent positive or negative responses have been documented in the HPI. All other systems are other negative and/or noncontributory. PHYSICAL EXAM: General Impression: Alert and oriented x3, his neck, HEENT: Normocephalic atraumatic, extra-ocular movements intact, pupils equal and reactive to light bilaterally, mucous membranes moist. Cardiovascular: Heart regular rate and rhythm Chest: Diminished lung sounds on the right, crackles and rhonchi on the left posterior lung melendrez Abdomen: abdomen soft, non-tender, non-distended, no organomegaly Musculoskeletal: Pulses present and equal in all extremities, no peripheral edema Motor: no focal deficits noted Neurological: CN II-XII grossly intact, no focal motor or sensory deficits noted Skin: Intact with no visualized rashes Psych: anxious ED course: 71-year-old male presents to the emergency department for worsening shortness of breath. Patient was evaluated initially in triage and found to have a O2 saturation of 90% on 2 L nasal cannula. He was rushed back to trauma resuscitation bay #3. On arrival shows 70% on 2 L is cannula, blood pressure 90/57, rest of vital signs within acceptable limits. Bedside ultrasound was performed showing no findings to suggest pneumothorax or pulmonary edema. Clinical suspicion concerning for COPD exacerbation versus pulmonary embolus versus COVID-19 Initial ABG showed pH is 7.3 with a pCO2 of 60 and a pO2 of 59.2. This is without BiPAP. Patient was placed on BiPAP for several minutes ABG was rechecked pH 7.3 with a pCO2 59 and pO2 116. A chin reevaluated bedside at 7:15 PM found to be in stable medical condition. At this point patient's clinical presentation likely secondary to COPD versus bronchospastic event. Heart failure is still part of the differential. Laboratory evaluation obtained. CBC unremarkable. Coag panel is negative. D-dimer is 3.99. Metabolic panel shows findings within acceptable limits. Lactic acidosis 2.3. Troponin is 0.02, brain natruretic peptide is 5060. 4 panel viral PCR is unremarkable. Chest x- ray shows cardiomegaly with pulmonary venous congestion. Computed tomography scan of the head and C-spine shows no acute processes. CT angios the chest shows no evidence of pulmonary embolism. There is a similar dissection of thoracic aorta. There does appear to be slight extension not definitively visualized on prior measuring 27 mm in length. Otherwise no apparent issues. Patient reevaluated bedside and denies any chest pain, abdominal pain, lower extremity paresthesias or hypertension. At this point there is no clinical con cern for will was mention about dissection extension. Patient given Lasix for concerns of perhaps new-onset congestive heart failure. He has no history of CHF. Patient admitted to [facility] with consultation to pulmonology and cardiology. EKG interpretation: Ventricular rate 58, A. fib, QS 102, QTc 462. , no QTC prolongation. EKG compared to 12/24/2020 showing new T-wave inversions in anterior precordial leads. - Related Data Home Medications Medication Instructions Recorded Confirmed Apixaban [Eliquis] 5 mg PO BID 08/04/20 10/15/21 Levothyroxine Sodium [Euthyrox] 50 mcg PO DAILY 08/04/20 10/15/21 Metoprolol Tartrate 25 mg PO TID 08/04/20 10/15/21 Aspirin EC [Ecotrin Low Dose] 81 mg PO DAILY 12/24/20 10/15/21 Mirtazapine [Remeron] 15 mg PO HS 12/24/20 10/15/21 Pantoprazole Sodium 40 mg PO AC-BRKFST 12/24/20 10/15/21 Thiamine [Vitamin B-1] 100 mg PO DAILY 12/24/20 10/15/21 Vit C/E/Zn/Coppr/Lutein/Zeaxan 1 cap PO DAILY 12/24/20 10/15/21 [Preservision Areds 2 Softgel] Atorvastatin [Lipitor] 20 mg PO HS 10/15/21 10/15/21 Escitalopram Oxalate [Lexapro] 20 mg PO DAILY 10/15/21 10/15/21 Fluticasone Propion/Salmeterol 1 puff INHALATION RT-BID 10/15/21 10/15/21 [Wixela 250-50 Inhub] Lidocaine 4% Cream [Lmx 4] 1 applic TOPICAL DAILY 10/15/21 10/15/21 Torsemide [Demadex] 20 mg PO DAILY 10/15/21 10/15/21 Allergies Allergy/AdvReac Type Severity Reaction Status Date / Time primidone Allergy Rash/Hives Verified 10/15/21 16:42 gabapentin AdvReac DIZZINESS Verified 10/15/21 16:42 Review of Systems ROS Statement: Those systems with pertinent positive or pertinent negative responses have been documented in the HPI. ROS Other: All systems not noted in ROS Statement are negative. 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, chronic atrial fibrillation and is anticoagulated with warfarin, aortic valve replacement with a bioprosthetic valve, pulmonary hypertension, chronic hypoxic respiratory failure with home O2 at HS, previous pneumonia 2008 and 2014, prostate cancer with prostatectomy, DVT R lower leg x2, macular degeneration L eye, left arm fracture, chronic tinnitus in both ears, gastritis, lower GIm bleed, UTI, liver cirrhosis related to history of alcoholism, hepatitis C at age 14yrs., feeding tube, alcoholism Last Myocardial Infarction Date:: unsure History of Any Multi-Drug Resistant Organisms: None Reported Date of last positivie culture/infection: None MDRO Source:: None Past Surgical History: Cardiac Valve Replacement, Cholecystectomy, Coronary Bypass/CABG, Heart Catheterization, Heart Catheterization With Stent, Hernia Repair, Orthopedic Surgery, Prostate Surgery Additional Past Surgical History / Comment(s): Aortic valve replacement, prostatectomy, right inguinal hernia repair 2, bilateral knee arthroscopy, colonoscopy/polypectomy, EGD, right leg varicose vein stripping, removal of a blood clot from the right lower extremity, cervical surgery d/t injury in [place] and removal of shrapnel's from the right shoulder, feeding tube Past Anesthesia/Blood Transfusion Reactions: No Reported Reaction Date of Last Stent Placement:: 2016 Past Psychological History: No Psychological Hx Reported Smoking Status: Former smoker Past Alcohol Use History: None Reported Past Drug Use History: None Reported - Past Family History Mother Family Medical History: Diabetes Mellitus Additional Family Medical History / Comment(s): Mother at age 74 from diabetic complications. Father Family Medical History: Congestive Heart Failure (CHF) Additional Family Medical History / Comment(s): Father at age 91 yrs. General Exam Limitations: no limitations Course Vital Signs 10/15/21 10/15/21 10/15/21 15:17 15:36 15:47 Temperature 98 F Pulse Rate 71 58 L 51 L Respiratory 24 26 H Rate Blood Pressure 90/57 129/77 O2 Sat by Pulse 70 L 99 Oximetry 10/15/21 10/15/21 10/15/21 15:52 16:17 16:59 Temperature Pulse Rate 67 72 Respiratory 28 H Rate Blood Pressure O2 Sat by Pulse Oximetry 10/15/21 18:13 Temperature Pulse Rate 74 Respiratory 23 Rate Blood Pressure 136/65 O2 Sat by Pulse 92 L Oximetry Medical Decision Making - Lab Data Result diagrams: 10/15/21 15:45 10/15/21 15:45 Lab Results 10/15/21 10/15/21 10/15/21 Range/Units 15:45 15:45 15:45 WBC 7.3 (3.8-10.6) k/uL RBC 4.08 L (4.30-5.90) m/uL Hgb 12.5 L (13.0-17.5) gm/dL Hct 39.9 (39.0-53.0) % MCV 97.7 (80.0-100.0) fL MCH 30.6 (25.0-35.0) pg MCHC 31.3 (31.0-37.0) g/dL RDW 13.8 (11.5-15.5) % Plt Count 126 L (150-450) k/uL MPV 9.4 Neutrophils % 70 % Lymphocytes % 18 % Monocytes % 6 % Eosinophils % 2 % Basophils % 1 % Neutrophils # 5.2 (1.3-7.7) k/uL Lymphocytes # 1.3 (1.0-4.8) k/uL Monocytes # 0.5 (0-1.0) k/uL Eosinophils # 0.1 (0-0.7) k/uL Basophils # 0.0 (0-0.2) k/uL Hypochromasia Moderate PT 12.6 H (9.0-12.0) sec INR 1.2 H (<1.2) APTT 37.0 H (22.0-30.0) sec D-Dimer (<0.60) mg/L FEU Sample Site ABG pH (7.35-7.45) ABG pCO2 (35-45) mmHg ABG pO2 (83-108) mmHg ABG HCO3 (21-25) mmol/L ABG Total CO2 (19-24) mmol/L ABG O2 Saturation (94-97) % ABG Base Excess mmol/L Ponce Test FiO2 % Sodium 138 (137-145) mmol/L Potassium 4.4 (3.5-5.1) mmol/L Chloride 96 L (98-107) mmol/L Carbon Dioxide 37 H (22-30) mmol/L Anion Gap 5 mmol/L BUN 19 (9-20) mg/dL Creatinine 1.32 H (0.66-1.25) mg/dL Est GFR (CKD-EPI)AfAm 62 (>60 ml/min/1.73 sqM) Est GFR (CKD-EPI)NonAf 53 (>60 ml/min/1.73 sqM) Glucose 150 H (74-99) mg/dL Lactic Ac Sepsis Rflx Plasma Lactic Acid Silvino (0.7-2.0) mmol/L Calcium 8.3 L (8.4-10.2) mg/dL Magnesium 1.9 (1.6-2.3) mg/dL Troponin I (0.000-0.034) ng/mL NT-Pro-B Natriuret Pep pg/mL Influenza Type A (PCR) (Not Detectd) Influenza Type B (PCR) (Not Detectd) RSV (PCR) (Not Detectd) SARS-CoV-2 (PCR) (Not Detectd) 10/15/21 10/15/21 10/15/21 Range/Units 15:45 15:45 15:45 WBC (3.8-10.6) k/uL RBC (4.30-5.90) m/uL Hgb (13.0-17.5) gm/dL Hct (39.0-53.0) % MCV (80.0-100.0) fL MCH (25.0-35.0) pg MCHC (31.0-37.0) g/dL RDW (11.5-15.5) % Plt Count (150-450) k/uL MPV Neutrophils % % Lymphocytes % % Monocytes % % Eosinophils % % Basophils % % Neutrophils # (1.3-7.7) k/uL Lymphocytes # (1.0-4.8) k/uL Monocytes # (0-1.0) k/uL Eosinophils # (0-0.7) k/uL Basophils # (0-0.2) k/uL Hypochromasia PT (9.0-12.0) sec INR (<1.2) APTT (22.0-30.0) sec D-Dimer (<0.60) mg/L FEU Sample Site ABG pH (7.35-7.45) ABG pCO2 (35-45) mmHg ABG pO2 (83-108) mmHg ABG HCO3 (21-25) mmol/L ABG Total CO2 (19-24) mmol/L ABG O2 Saturation (94-97) % ABG Base Excess mmol/L Ponce Test FiO2 % Sodium (137-145) mmol/L Potassium (3.5-5.1) mmol/L Chloride (98-107) mmol/L Carbon Dioxide (22-30) mmol/L Anion Gap mmol/L BUN (9-20) mg/dL Creatinine (0.66-1.25) mg/dL Est GFR (CKD-EPI)AfAm (>60 ml/min/1.73 sqM) Est GFR (CKD-EPI)NonAf (>60 ml/min/1.73 sqM) Glucose (74-99) mg/dL Lactic Ac Sepsis Rflx Plasma Lactic Acid Silvino 2.3 H* (0.7-2.0) mmol/L Calcium (8.4-10.2) mg/dL Magnesium (1.6-2.3) mg/dL Troponin I 0.020 (0.000-0.034) ng/mL NT-Pro-B Natriuret Pep 5060 pg/mL Influenza Type A (PCR) (Not Detectd) Influenza Type B (PCR) (Not Detectd) RSV (PCR) (Not Detectd) SARS-CoV-2 (PCR) (Not Detectd) 10/15/21 10/15/21 10/15/21 Range/Units 15:47 15:56 16:39 WBC (3.8-10.6) k/uL RBC (4.30-5.90) m/uL Hgb (13.0-17.5) gm/dL Hct (39.0-53.0) % MCV (80.0-100.0) fL MCH (25.0-35.0) pg MCHC (31.0-37.0) g/dL RDW (11.5-15.5) % Plt Count (150-450) k/uL MPV Neutrophils % % Lymphocytes % % Monocytes % % Eosinophils % % Basophils % % Neutrophils # (1.3-7.7) k/uL Lymphocytes # (1.0-4.8) k/uL Monocytes # (0-1.0) k/uL Eosinophils # (0-0.7) k/uL Basophils # (0-0.2) k/uL Hypochromasia PT (9.0-12.0) sec INR (<1.2) APTT (22.0-30.0) sec D-Dimer 3.99 H (<0.60) mg/L FEU Sample Site ABG pH (7.35-7.45) ABG pCO2 (35-45) mmHg ABG pO2 (83-108) mmHg ABG HCO3 (21-25) mmol/L ABG Total CO2 (19-24) mmol/L ABG O2 Saturation (94-97) % ABG Base Excess mmol/L Ponce Test FiO2 % Sodium (137-145) mmol/L Potassium (3.5-5.1) mmol/L Chloride (98-107) mmol/L Carbon Dioxide (22-30) mmol/L Anion Gap mmol/L BUN (9-20) mg/dL Creatinine (0.66-1.25) mg/dL Est GFR (CKD-EPI)AfAm (>60 ml/min/1.73 sqM) Est GFR (CKD-EPI)NonAf (>60 ml/min/1.73 sqM) Glucose (74-99) mg/dL Lactic Ac Sepsis Rflx Y Plasma Lactic Acid Silvino (0.7-2.0) mmol/L Calcium (8.4-10.2) mg/dL Magnesium (1.6-2.3) mg/dL Troponin I (0.000-0.034) ng/mL NT-Pro-B Natriuret Pep pg/mL Influenza Type A (PCR) Not Detected (Not Detectd) Influenza Type B (PCR) Not Detected (Not Detectd) RSV (PCR) Not Detected (Not Detectd) SARS-CoV-2 (PCR) Not Detected (Not Detectd) 10/15/21 10/15/21 10/15/21 Range/Units 17:22 18:48 19:03 WBC (3.8-10.6) k/uL RBC (4.30-5.90) m/uL Hgb (13.0-17.5) gm/dL Hct (39.0-53.0) % MCV (80.0-100.0) fL MCH (25.0-35.0) pg MCHC (31.0-37.0) g/dL RDW (11.5-15.5) % Plt Count (150-450) k/uL MPV Neutrophils % % Lymphocytes % % Monocytes % % Eosinophils % % Basophils % % Neutrophils # (1.3-7.7) k/uL Lymphocytes # (1.0-4.8) k/uL Monocytes # (0-1.0) k/uL Eosinophils # (0-0.7) k/uL Basophils # (0-0.2) k/uL Hypochromasia PT (9.0-12.0) sec INR (<1.2) APTT (22.0-30.0) sec D-Dimer (<0.60) mg/L FEU Sample Site lrad LRad ABG pH 7.38 7.38 (7.35-7.45) ABG pCO2 60 H 59 H (35-45) mmHg ABG pO2 59 L* 116 H (83-108) mmHg ABG HCO3 36 H 35 H (21-25) mmol/L ABG Total CO2 37 H 37 H (19-24) mmol/L ABG O2 Saturation 91.1 L 98.7 H (94-97) % ABG Base Excess 10.5 10.2 mmol/L Ponce Test Yes Yes FiO2 32 50 % Sodium (137-145) mmol/L Potassium (3.5-5.1) mmol/L Chloride (98-107) mmol/L Carbon Dioxide (22-30) mmol/L Anion Gap mmol/L BUN (9-20) mg/dL Creatinine (0.66-1.25) mg/dL Est GFR (CKD-EPI)AfAm (>60 ml/min/1.73 sqM) Est GFR (CKD-EPI)NonAf (>60 ml/min/1.73 sqM) Glucose (74-99) mg/dL Lactic Ac Sepsis Rflx Plasma Lactic Acid Silvino 1.5 (0.7-2.0) mmol/L Calcium (8.4-10.2) mg/dL Magnesium (1.6-2.3) mg/dL Troponin I (0.000-0.034) ng/mL NT-Pro-B Natriuret Pep pg/mL Influenza Type A (PCR) (Not Detectd) Influenza Type B (PCR) (Not Detectd) RSV (PCR) (Not Detectd) SARS-CoV-2 (PCR) (Not Detectd) Critical Care Time Critical Care Time: Yes Total Critical Care Time: 33 Disposition Clinical Impression: Hypoxia, Respiratory failure Disposition: ADMITTED IP TO THIS HOSP Condition: Serious Referrals: [facility],Clinic [Primary Care Provider] - 1-2 days
[2021-10-15 16:12] LABS: Basophils % (A) 1 %; Eosinophils # (A) 0.1 k/uL (0-0.7); Eosinophils % (A) 2 %; HCT 39.9 % (39.0-53.0); HGB 12.5 gm/dL (13.0-17.5); Hypochromasia Moderate; Lymphocytes # (A) 1.3 k/uL (1.0-4.8); Lymphocytes % (A) 18 %; MCH 30.6 pg (25.0-35.0); MCHC 31.3 g/dL (31.0-37.0); MCV 97.7 fL (80.0-100.0); Mean Platelet Volume 9.4; Monocytes # (A) 0.5 k/uL (0-1.0); Monocytes % (A) 6 %; Neutrophils # (A) 5.2 k/uL (1.3-7.7); Neutrophils % (A) 70 %; Platelet Count 126 k/uL (150-450); RBC 4.08 m/uL (4.30-5.90); RDW 13.8 % (11.5-15.5); WBC 7.3 k/uL (3.8-10.6)
[2021-10-15 16:32] LABS: INR 1.2 (<1.2); Prothrombin Time 12.6 sec (9.0-12.0)
[2021-10-15 16:39] LABS: Calcium 8.3 mg/dL (8.4-10.2); Magnesium 1.9 mg/dL (1.6-2.3); Potassium 4.4 mmol/L (3.5-5.1)
--- NOTE | 2021-10-15 17:01 | CT ---
EXAMINATION TYPE: CT brain cspine wo con CT DLP: 1369.1 mGycm, Automated exposure control for dose reduction was used. DATE OF EXAM: 10/15/2021 4:43 PM COMPARISON: CT c spine 09/18/2018. CLINICAL INDICATION:Male, 71 years old with history of fall; fall TECHNIQUE: Brain: Multiple axial CT images of the brain were obtained without IV contrast. Cspine: Axial CT images from the skull base to the inferior aspect of T2 we obtained without intraven ous contrast. Coronal and sagittal reformatted images were also reviewed. FINDINGS: Brain: Extra-axial spaces: No abnormal extra-axial fluid collections. Ventricular system: Within normal limits Cerebral parenchyma: Encephalomalacia of the left parietal and posterior left frontal lobe from prior injury. No acute intraparenchymal hemorrhage or mass effect. The adler-white junction is well differ entiated. Cerebellum: Unremarkable. Mass effect: No evidence of midline shift. Intracranial vasculature: unremarkable Soft tissues: Normal. Calvarium/osseous structures: No depressed skull fracture. Paranasal sinuses and mastoid air cells: Mild scattered mucosal thickening and or secretions. Visualized orbits: Orbital contents are intact. Cervical spine: Fracture: None. Osseous structures: Multilevel degenerative disc disease changes with endplate spurring and disc oste ophyte complex's. Vertebral alignment: Within normal limits. Spinal canal/Neural Foramina: No evidence of significant spinal canal narrowing. Neck soft tissues: Prevertebral soft tissues are within normal limits. There is calcification of the nuchal ligament. Other: The airway is patent. Atherosclerosis of the carotid bifurcations. Mild paraseptal emphysema c hanges. Sternotomy wires are partially visualized. IMPRESSION: 1. No acute intracranial process. 2. Remote left parietal/posterior frontal injury with encephalomalacia. 3. No evidence of cervical spine fracture. 4. Mild multilevel degenerative disc disease.
[2021-10-15 17:04] LABS: Influenza A Not Detected (Not Detectd); Influenza B Not Detected (Not Detectd)
[2021-10-15 17:28] LABS: ABG Base Excess 10.5 mmol/L; ABG HCO3 36 mmol/L (21-25); ABG Oxygen Saturation 91.1 % (94-97); ABG PCO2 60 mmHg (35-45); ABG PH 7.38 (7.35-7.45); ABG TCO2 37 mmol/L (19-24); Allen Test Performed? Yes
[2021-10-15 17:31] LABS: ABG PO2 59 mmHg (83-108)
--- NOTE | 2021-10-15 18:36 | CT ---
EXAMINATION TYPE: CT angio chest CT DLP: 449.3 mGycm, Automated exposure control for dose reduction was used. DATE OF EXAM: 10/15/2021 5:49 PM COMPARISON: CT chest dating back to 02/19/[address] abdomen 12/18/2018. CLINICAL INDICATION:Male, 71 years old with history of positive D-dimer; sob, elevated d-dimmer TECHNIQUE/CONTRAST: CTA scan of the thorax is performed with IV Contrast, patient injected with 80 mL of Isovue 370, pulm onary embolism protocol. MIP images are created and reviewed. FINDINGS: Pulmonary Artery: There is no evidence for a filling defect within the pulmonary vasculature to sugge st acute pulmonary embolism. The pulmonary artery is dilated measuring up to 37 mm. Lungs/Pleura: Mild paraseptal emphysema changes, no evidence of pneumothorax. Trace bilateral pleural effusions. Airway: Large airways are patent. Heart: Enlarged for size. Aortic valve repair changes present. Vasculature: Aortic dissection of the descending thoracic aorta which is similar to prior on 08/05/2020 . Additional dissection near the origin of the celiac axis extending approximately 27 mm in length. A therosclerosis of the arterial vasculature. Ascending thoracic aorta postsurgical changes.11 Mediastinum: No gross evidence of adenopathy. Musculoskeletal: No acute osseous abnormalities, multilevel disc degeneration changes are present. Soft Tissues: Mild bilateral gynecomastia changes. Lower neck: No significant findings. Upper Abdomen: There is a nodular contour to the liver. Intra-abdominal bowel hernia containing loops of colon measuring 63 mm at the neck. IMPRESSION: 1. No evidence of pulmonary embolism. 2. Similar dissection of the descending thoracic aorta. 3. Additional aortic dissection to the right of the origin of the celiac access. This is not definiti vely visualized on prior imaging measuring 27 mm in length.. 4. Dilated pulmonary trunk which can be seen in setting of pulmonary hypertension. 5. Trace bilateral pleural effusions. 6. Upper anterior abdominal wall hernia containing loops of colon. 7. Hepatic cirrhosis.
[2021-10-15 19:08] LABS: ABG Base Excess 10.2 mmol/L; ABG HCO3 35 mmol/L (21-25); ABG Oxygen Saturation 98.7 % (94-97); ABG PCO2 59 mmHg (35-45); ABG PH 7.38 (7.35-7.45); ABG PO2 116 mmHg (83-108); ABG TCO2 37 mmol/L (19-24); Allen Test Performed? Yes
[2021-10-15] MEDS ORDERED: FUROSEMIDE 10 MG/ML 4 ML VIAL IV STA (19:44)
[2021-10-15] MEDS: ALBUTEROL NEBULIZED 2.5 MG/3 ML INHALATION SCH (19:57)
[2021-10-15] MEDS: AZITHROMYCIN 500 MG TAB PO SCH (21:09)
[2021-10-16] MEDS: ALBUTEROL NEBULIZED 2.5 MG/3 ML INHALATION SCH ×4 (08:57→19:48)
[2021-10-16] MEDS ORDERED: METOPROLOL TARTRATE 25 MG TAB PO SCH (09:00)
[2021-10-16] MEDS: FUROSEMIDE 10 MG/ML 2 ML VIAL IV SCH ×2 (10:13→19:49)
[2021-10-16] MEDS: APIXABAN 5 MG TAB PO SCH ×2 (10:13→19:49)
[2021-10-16] MEDS: ASPIRIN 81 MG PO SCH (10:13)
--- NOTE | 2021-10-16 10:40 | P.CRDCN ---
History of Present Illness History of present illness: HISTORY OF PRESENTING ILLNESS This is a pleasant 71-year-old male past medical history significant for coronary artery disease status post PCI of the proximal LAD in 2017, hypertension, dyslipidemia, valvular heart disease status post aortic valve replacement, Permanent atrial fibrillation (on Eliquis), COPD and former nicotine dependence, laparoscopic cholecystectomy 08/2020. He follows in the office with Dr. Sanabria. We have been asked to see in consultation for congestive heart failure. He presents to the emergency department with with 2-3 days of shortness of breath, cough, clear phlegm. He denies any orthopnea, PND or orthopnea. He denies any chest pain, palpitations, lightheadedness, dizziness, syncope or near syncope. He continues to smoke cigarettes 1.5PPD. He On arrival to the ER he was hypoxic with SpO2 in the 70%s, was placed on a non- rebreather and then BIPAP. DIAGNOSTICS -EKG reveals atrial fibrillation HR 58 -Telemetry tracings indicate atrial fibrillation HR 55-70s -Chest xray revealed some pulmonary venous congestion -CT Chest- No PE, similar dissection descending thoracic aorta, additional aortic dissection to the right, trace bilateral pleural effusions, hepatic cirrhosis -Echocardiogram obtained in the office 10/22/2020 revealed preserved LV systolic function with ejection fraction 50%, mildly dilated right ventricle, severely dilated left atrium, Severely dilated right atrium, biologic aortic valve prosthesis with moderate prosthetic valvular regurgitation, moderate to severe mitral regurgitation, moderate tricuspid regurgitation. -Laboratory reviewed, d-dimer 3.9, sodium 138, potassium 4.4, BUN 19, serum creatinine 1.3, lactate 2.3, repeat 1.5, troponin negative, proBNP 5060, WBC 7.3, hemoglobin 12.5, platelets 126 -Current cardiac medications include Eliquis 5 mg twice a day, torsemide 20 mg daily, metoprolol titrate 25 mg 3 times a day, atorvastatin 20 mg nightly, aspirin 81 mg daily -01/2020 underwent a Lexiscan stress test that was negative for reversible cardiac ischemia. REVIEW OF SYSTEMS At the time of my exam: CONSTITUTIONAL: Denies fever or chills. CARDIOVASCULAR: Denies chest pain, +shortness of breath,Denies orthopnea, PND or palpitations. RESPIRATORY: +cough. GASTROINTESTINAL: Denies abdominal pain. Denies diarrhea, constipation, nausea or vomiting. MUSCULOSKELETAL: Denies myalgias. NEUROLOGIC: Denies numbness, tingling, headache or weakness. ENDOCRINE: Denies fatigue, weight change, polydipsia or polyurina. GENITOURINARY: Denies burning, hematuria or urgency with micturation. HEMATOLOGIC: Denies history of anemia or bleeding. PHYSICAL EXAMINATION Blood pressure CONSTITUTIONAL: No apparent distress. HEENT: Head is normocephalic. Pupils are equal, round. Sclerae anicteric. Mucous membranes of the mouth are moist. +JVD on right side of clavical CHEST EXAMINATION: Coarse crackles in the bases and Wheezing also noted. No chest wall tenderness is noted on palpation or with deep breathing. HEART EXAMINATION: Irregular rate and rhythm. S1, S2 heard. Systolic ejection murmur at the base and apex, no gallops or rub. ABDOMEN: Soft, Positive bowel sounds. EXTREMITIES: 2+ peripheral pulses, no edema and no calf tenderness. NEUROLOGIC EXAMINATION: Patient is awake, alert and oriented x3. ASSESSMENT COPD Exacerbation Acute on chronic heart failure with preserved ejection fraction Coronary artery disease s/p PCI to proximal LAD 2016 Permanent atrial fibrillation on eliquis Valvular heart disease s/p bioprostheic aortic valve replacement Hypertension Dyslipidemia COPD Chronic nicotine dependence PLAN Patient with likely COPD exacerbation but also appears to be overloaded on exam. We will start low dose IV Lasix 20mg BID. Obtain 2D echocardiogram Monitor I/Os daily weights renal function and electrolytes Resume patient's home cardiac medications Pulmonary is consulted Further recommendations baed on clinical course Nurse Practitioner note has been reviewed, I agree with a documented findings and plan of care. Patient was seen and examined. Past Medical History Past Medical History: Atrial Fibrillation, Atrial Flutter, Coronary Artery Disease (CAD), Cancer, Chest Pain / Angina, Heart Failure, COPD, CVA/TIA, Deep Vein Thrombosis (DVT), Eye Disorder, GERD/Reflux, GI Bleed, Hearing Disorder / Deafness, Hyperlipidemia, Hypertension, Liver Disease, Memory Impairment, Pneumonia, Vascular Disorder Additional Past Medical History / Comment(s): Stable dissection of the descending aorta, chronic atrial fibrillation and is anticoagulated with warfarin, aortic valve replacement with a bioprosthetic valve, pulmonary hypertension, chronic hypoxic respiratory failure with home O2 at , previous pneumonia 2008 and 2014, prostate cancer with prostatectomy, DVT R lower leg x2, macular degeneration L eye, left arm fracture, chronic tinnitus in both ears, gastritis, lower GIm bleed, UTI, liver cirrhosis related to history of alcoholism, hepatitis C at age 14yrs., feeding tube, alcoholism Last Myocardial Infarction Date:: unsure History of Any Multi-Drug Resistant Organisms: None Reported Date of last positivie culture/infection: None MDRO Source:: None Past Surgical History: Cardiac Valve Replacement, Cholecystectomy, Coronary Bypass/CABG, Heart Catheterization, Heart Catheterization With Stent, Hernia Repair, Orthopedic Surgery, Prostate Surgery Additional Past Surgical History / Comment(s): Aortic valve replacement, prostatectomy, right inguinal hernia repair 2, bilateral knee arthroscopy, colonoscopy/polypectomy, EGD, right leg varicose vein stripping, removal of a blood clot from the right lower extremity, cervical surgery d/t injury in [place] and removal of shrapnel's from the right shoulder, feeding tube Past Anesthesia/Blood Transfusion Reactions: No Reported Reaction Date of Last Stent Placement:: 2016 Past Psychological History: No Psychological Hx Reported Additional Psychological History / Comment(s): grandson lives with the patient. History of chronic tobacco use active and alcohol use active, old drug use Smoking Status: Former smoker Past Alcohol Use History: None Reported Additional Past Alcohol Use History / Comment(s): Pt started smoking in 1966 and is a 1.5 ppd smoker. He states he drinks daily and last drank on 09/16/18. Past Drug Use History: None Reported - Past Family History Mother Family Medical History: Diabetes Mellitus Additional Family Medical History / Comment(s): Mother at age 74 from diabetic complications. Father Family Medical History: Congestive Heart Failure (CHF) Additional Family Medical History / Comment(s): Father at age 91 yrs. Medications and Allergies Home Medications Medication Instructions Recorded Confirmed Type Apixaban [Eliquis] 5 mg PO BID 08/04/20 10/15/21 History Levothyroxine Sodium [Euthyrox] 50 mcg PO DAILY 08/04/20 10/15/21 History Metoprolol Tartrate 25 mg PO TID 08/04/20 10/15/21 History Aspirin EC [Ecotrin Low Dose] 81 mg PO DAILY 12/24/20 10/15/21 History Mirtazapine [Remeron] 15 mg PO HS 12/24/20 10/15/21 History Pantoprazole Sodium 40 mg PO AC-BRKFST 12/24/20 10/15/21 History Thiamine [Vitamin B-1] 100 mg PO DAILY 12/24/20 10/15/21 History Vit C/E/Zn/Coppr/Lutein/Zeaxan 1 cap PO DAILY 12/24/20 10/15/21 History [Preservision Areds 2 Softgel] Atorvastatin [Lipitor] 20 mg PO HS 10/15/21 10/15/21 History Escitalopram Oxalate [Lexapro] 20 mg PO DAILY 10/15/21 10/15/21 History Fluticasone Propion/Salmeterol 1 puff INHALATION RT-BID 10/15/21 10/15/21 History [Wixela 250-50 Inhub] Lidocaine 4% Cream [Lmx 4] 1 applic TOPICAL DAILY 10/15/21 10/15/21 History Torsemide [Demadex] 20 mg PO DAILY 10/15/21 10/15/21 History Allergies Allergy/AdvReac Type Severity Reaction Status Date / Time primidone Allergy Rash/Hives Verified 10/15/21 16:42 gabapentin AdvReac DIZZINESS Verified 10/15/21 16:42 Physical Exam Vitals: Vital Signs Temp Pulse Pulse Resp BP BP Pulse Ox 10/16/21 04:00 69 19 115/54 96 10/16/21 00:00 82 27 H 105/58 93 L 10/15/21 20:28 67 22 152/75 97 10/15/21 20:12 70 10/15/21 20:00 97.4 F L 68 22 174/81 99 10/15/21 19:57 70 10/15/21 18:13 74 23 136/65 92 L 10/15/21 16:59 72 10/15/21 16:17 67 10/15/21 15:52 28 H 10/15/21 15:47 51 L 10/15/21 15:36 58 L 26 H 129/77 99 10/15/21 15:17 98 F 71 24 90/57 70 L Intake and Output 10/15/21 10/16/21 10/16/21 22:59 06:59 14:59 Intake Total 540 485 Output Total 1000 1550 Balance -460 -1065 Intake: Oral 540 485 Output: Urine 1000 1550 Other: Voiding Method Urinal Urinal Weight 81.647 kg Results 10/15/21 15:45 10/15/21 15:45 Cardiac Enzymes 10/15/21 Range/Units 15:45 Troponin I 0.020 (0.000-0.034) ng/mL Coagulation 10/15/21 Range/Units 15:45 PT 12.6 H (9.0-12.0) sec APTT 37.0 H (22.0-30.0) sec CBC 10/15/21 Range/Units 15:45 WBC 7.3 (3.8-10.6) k/uL RBC 4.08 L (4.30-5.90) m/uL Hgb 12.5 L (13.0-17.5) gm/dL Hct 39.9 (39.0-53.0) % Plt Count 126 L (150-450) k/uL Comprehensive Metabolic Panel 10/15/21 Range/Units 15:45 Sodium 138 (137-145) mmol/L Potassium 4.4 (3.5-5.1) mmol/L Chloride 96 L (98-107) mmol/L Carbon Dioxide 37 H (22-30) mmol/L BUN 19 (9-20) mg/dL Creatinine 1.32 H (0.66-1.25) mg/dL Glucose 150 H (74-99) mg/dL Calcium 8.3 L (8.4-10.2) mg/dL Current Medications Generic Name Dose Route Start Last Admin Trade Name Freq PRN Reason Stop Dose Admin Albuterol Sulfate 2.5 mg 10/15/21 20:00 10/15/21 19:57 Albuterol Nebulized 2.5 Mg/3 Ml INHALATION 2.5 mg RT-QID JAYLA Administration Azithromycin 500 mg 10/15/21 20:00 10/15/21 21:09 Azithromycin 500 Mg Tab PO 10/18/21 20:01 500 mg DAILY@1800 JAYLA Administration Intake and Output 10/15/21 10/16/21 10/16/21 22:59 06:59 14:59 Intake Total 540 485 Output Total 1000 1550 Balance -460 -1065 Intake: Oral 540 485 Output: Urine 1000 1550 Other: Voiding Method Urinal Urinal Weight 81.647 kg 10/15/21 15:45 10/15/21 15:45
[2021-10-16] MEDS ORDERED: IPRATROPIUM-ALBUTEROL 3 ML NEB INHALATION PRN (12:32)
[2021-10-16] MEDS ORDERED: NON FORMULARY DRUG (Vit C/E/Zn/Coppr/Lutein/Zeaxan [Preservision Areds 2 Softgel] 1 EACH C PO SCH (13:30)
[2021-10-16] MEDS: LEVOTHYROXINE 50 MCG TAB PO SCH (13:47)
[2021-10-16] MEDS: THIAMINE 100 MG TAB PO SCH (13:47)
[2021-10-16] MEDS: methylPREDNISolone SOD SUCCI 125 MG/2 ML VIAL IV SCH ×2 (13:47→18:16)
[2021-10-16] MEDS: LIDOCAINE 4% CREAM 5 GM TUBE TOPICAL SCH (13:47)
[2021-10-16] MEDS: PANTOPRAZOLE 40 MG TABLET PO SCH (13:47)
[2021-10-16] MEDS: ESCITALOPRAM 20 MG TAB PO SCH (13:47)
[2021-10-16] MEDS: IPRATROPIUM-ALBUTEROL 3 ML NEB INHALATION SCH ×2 (15:47→19:48)
--- NOTE | 2021-10-16 15:57 | P.HPIM ---
History of Present Illness H&P Date: 10/16/21 Chief Complaint: Shortness of Breath 71-year-old male past medical history significant for coronary artery disease status post PCI of the proximal LAD in 2017, hypertension, dyslipidemia, valvular heart disease status post aortic valve replacement, Permanent atrial fibrillation (on Eliquis), COPD, presents to the emergency department with with 2-3 days of shortness of breath, cough, clear phlegm. He denies any orthopnea, PND or orthopnea. He denies any chest pain, palpitations, lightheadedness, dizziness, syncope or near syncope. He continues to smoke cigarettes 1.5PPD. He On arrival to the ER he was hypoxic with SpO2 in the 70%s, was placed on a non-rebreather and then BIPAP. Workup completed in ED-- EKG reveals atrial fibrillation HR 58; Chest xray rev ealed some pulmonary venous congestion -CT Chest- No PE, similar dissection descending thoracic aorta, additional aortic dissection to the right, trace bilateral pleural effusions, hepatic cirrhosis -Laboratory reviewed, d-dimer 3.9, sodium 138, potassium 4.4, BUN 19, serum creatinine 1.3, lactate 2.3, repeat 1.5, troponin negative, proBNP 5060, WBC 7.3, hemoglobin 12.5, platelets 126 Review of Systems REVIEW OF SYSTEMS: CONSTITUTIONAL: No fever, no malaise, no fatigue. HEENT: No recent visual problems or hearing problems. Denied any sore throat. CARDIOVASCULAR: Shortness of breath. PULMONARY: No shortness of breath, no cough, no hemoptysis. GASTROINTESTINAL: No diarrhea, no nausea, no vomiting, no abdominal pain. NEUROLOGICAL: No headaches, no weakness, no numbness. HEMATOLOGICAL: Denies any bleeding or petechiae. GENITOURINARY: Denies any burning micturition, frequency, or urgency. MUSCULOSKELETAL/RHEUMATOLOGICAL: Denies any joint pain, swelling, or any muscle pain. ENDOCRINE: Denies any polyuria or polydipsia. The rest of the 14-point review of systems is negative. Past Medical History Past Medical History: Atrial Fibrillation, Atrial Flutter, Coronary Artery Disea se (CAD), Cancer, Chest Pain / Angina, Heart Failure, COPD, CVA/TIA, Deep Vein Thrombosis (DVT), Eye Disorder, GERD/Reflux, GI Bleed, Hearing Disorder / Deafness, Hyperlipidemia, Hypertension, Liver Disease, Memory Impairment, Pneumonia, Vascular Disorder Additional Past Medical History / Comment(s): Stable dissection of the descending aorta, chronic atrial fibrillation and is anticoagulated with warfarin, aortic valve replacement with a bioprosthetic valve, pulmonary h ypertension, chronic hypoxic respiratory failure with home O2 at , previous pneumonia 2008 and 2014, prostate cancer with prostatectomy, DVT R lower leg x2, macular degeneration L eye, left arm fracture, chronic tinnitus in both ears, gastritis, lower GIm bleed, UTI, liver cirrhosis related to history of alcoholism, hepatitis C at age 14yrs., feeding tube, alcoholism Last Myocardial Infarction Date:: unsure History of Any Multi-Drug Resistant Organisms: None Reported Date of last positivie culture/infection: None MDRO Source:: None Past Surgical History: Cardiac Valve Replacement, Cholecystectomy, Coronary Bypass/CABG, Heart Catheterization, Heart Catheterization With Stent, Hernia Repair, Orthopedic Surgery, Prostate Surgery Additional Past Surgical History / Comment(s): Aortic valve replacement, prostatectomy, right inguinal hernia repair 2, bilateral knee arthroscopy, colonoscopy/polypectomy, EGD, right leg varicose vein stripping, removal of a blood clot from the right lower extremity, cervical surgery d/t injury in [place] and removal of shrapnel's from the right shoulder, feeding tube Past Anesthesia/Blood Transfusion Reactions: No Reported Reaction Date of Last Stent Placement:: 2016 Past Psychological History: No Psychological Hx Reported Additional Psychological History / Comment(s): grandson lives with the patient. History of chronic tobacco use active and alcohol use active, old drug use Smoking Status: Former smoker Past Alcohol Use History: None Reported Additional Past Alcohol Use History / Comment(s): Pt started smoking in 1966 and is a 1.5 ppd smoker. He states he drinks daily and last drank on 09/16/18. Past Drug Use History: None Reported - Past Family History Mother Family Medical History: Diabetes Mellitus Additional Family Medical History / Comment(s): Mother at age 74 from diabetic complications. Father Family Medical History: Congestive Heart Failure (CHF) Additional Family Medical History / Comment(s): Father at age 91 yrs. Medications and Allergies Home Medications Medication Instructions Recorded Confirmed Type Apixaban [Eliquis] 5 mg PO BID 08/04/20 10/15/21 History Levothyroxine Sodium [Euthyrox] 50 mcg PO DAILY 08/04/20 10/15/21 History Metoprolol Tartrate 25 mg PO TID 08/04/20 10/15/21 History Aspirin EC [Ecotrin Low Dose] 81 mg PO DAILY 12/24/20 10/15/21 History Mirtazapine [Remeron] 15 mg PO HS 12/24/20 10/15/21 History Pantoprazole Sodium 40 mg PO AC-BRKFST 12/24/20 10/15/21 History Thiamine [Vitamin B-1] 100 mg PO DAILY 12/24/20 10/15/21 History Vit C/E/Zn/Coppr/Lutein/Zeaxan 1 cap PO DAILY 12/24/20 10/15/21 History [Preservision Areds 2 Softgel] Atorvastatin [Lipitor] 20 mg PO HS 10/15/21 10/15/21 History Escitalopram Oxalate [Lexapro] 20 mg PO DAILY 10/15/21 10/15/21 History Fluticasone Propion/Salmeterol 1 puff INHALATION RT-BID 10/15/21 10/15/21 History [Wixela 250-50 Inhub] Lidocaine 4% Cream [Lmx 4] 1 applic TOPICAL DAILY 10/15/21 10/15/21 History Torsemide [Demadex] 20 mg PO DAILY 10/15/21 10/15/21 History Allergies Allergy/AdvReac Type Severity Reaction Status Date / Time primidone Allergy Rash/Hives Verified 10/15/21 16:42 gabapentin AdvReac DIZZINESS Verified 10/15/21 16:42 Physical Exam Vitals: Vital Signs Temp Pulse Pulse Resp BP BP Pulse Ox 10/16/21 12:04 69 10/16/21 11:54 68 10/16/21 09:10 60 10/16/21 08:57 57 L 96 10/16/21 08:00 98.3 F 72 18 130/69 94 L 10/16/21 04:00 69 19 115/54 96 10/16/21 00:00 82 27 H 105/58 93 L 10/15/21 20:28 67 22 152/75 97 10/15/21 20:12 70 10/15/21 20:00 97.4 F L 68 22 174/81 99 10/15/21 19:57 70 10/15/21 18:13 74 23 136/65 92 L 10/15/21 16:59 72 10/15/21 16:17 67 10/15/21 15:52 28 H 10/15/21 15:47 51 L 10/15/21 15:36 58 L 26 H 129/77 99 10/15/21 15:17 98 F 71 24 90/57 70 L Intake and Output 10/15/21 10/16/21 10/16/21 22:59 06:59 14:59 Intake Total 540 485 240 Output Total 1000 1550 500 Balance -460 -1065 -260 Intake: Oral 540 485 240 Output: Urine 1000 1550 500 Other: Voiding Method Urinal Urinal # Bowel Movements 1 Weight 81.647 kg CONSTITUTIONAL: No apparent distress. HEENT: Head is normocephalic. Pupils are equal, round. Sclerae anicteric. Mucous membranes of the mouth are moist. +JVD on right side of clavical CHEST EXAMINATION: Coarse crackles in the bases and Wheezing also noted. No chest wall tenderness is noted on palpation or with deep breathing. HEART EXAMINATION: Irregular rate and rhythm. S1, S2 heard. Systolic ejection murmur at the base and apex, no gallops or rub. ABDOMEN: Soft, Positive bowel sounds. EXTREMITIES: 2+ peripheral pulses, no edema and no calf tenderness. NEUROLOGIC EXAMINATION: Patient is awake, alert and oriented x3. Results CBC & Chem 7: 10/15/21 15:45 10/15/21 15:45 Labs: Abnormal Lab Results - Last 24 Hours (Table) 10/15/21 10/15/21 10/15/21 Range/Units 15:45 15:45 15:45 RBC 4.08 L (4.30-5.90) m/uL Hgb 12.5 L (13.0-17.5) gm/dL Plt Count 126 L (150-450) k/uL PT 12.6 H (9.0-12.0) sec INR 1.2 H (<1.2) APTT 37.0 H (22.0-30.0) sec D-Dimer (<0.60) mg/L FEU ABG pCO2 (35-45) mmHg ABG pO2 (83-108) mmHg ABG HCO3 (21-25) mmol/L ABG Total CO2 (19-24) mmol/L ABG O2 Saturation (94-97) % Chloride 96 L (98-107) mmol/L Carbon Dioxide 37 H (22-30) mmol/L Creatinine 1.32 H (0.66-1.25) mg/dL Glucose 150 H (74-99) mg/dL Plasma Lactic Acid Silvino (0.7-2.0) mmol/L Calcium 8.3 L (8.4-10.2) mg/dL 10/15/21 10/15/21 10/15/21 Range/Units 15:45 15:56 17:22 RBC (4.30-5.90) m/uL Hgb (13.0-17.5) gm/dL Plt Count (150-450) k/uL PT (9.0-12.0) sec INR (<1.2) APTT (22.0-30.0) sec D-Dimer 3.99 H (<0.60) mg/L FEU ABG pCO2 60 H (35-45) mmHg ABG pO2 59 L* (83-108) mmHg ABG HCO3 36 H (21-25) mmol/L ABG Total CO2 37 H (19-24) mmol/L ABG O2 Saturation 91.1 L (94-97) % Chloride (98-107) mmol/L Carbon Dioxide (22-30) mmol/L Creatinine (0.66-1.25) mg/dL Glucose (74-99) mg/dL Plasma Lactic Acid Silvino 2.3 H* (0.7-2.0) mmol/L Calcium (8.4-10.2) mg/dL 10/15/21 Range/Units 19:03 RBC (4.30-5.90) m/uL Hgb (13.0-17.5) gm/dL Plt Count (150-450) k/uL PT (9.0-12.0) sec INR (<1.2) APTT (22.0-30.0) sec D-Dimer (<0.60) mg/L FEU ABG pCO2 59 H (35-45) mmHg ABG pO2 116 H (83-108) mmHg ABG HCO3 35 H (21-25) mmol/L ABG Total CO2 37 H (19-24) mmol/L ABG O2 Saturation 98.7 H (94-97) % Chloride (98-107) mmol/L Carbon Dioxide (22-30) mmol/L Creatinine (0.66-1.25) mg/dL Glucose (74-99) mg/dL Plasma Lactic Acid Silvino (0.7-2.0) mmol/L Calcium (8.4-10.2) mg/dL Assessment and Plan Assessment: 1. Acute exacerbation COPD - Patient has been placed on IV steroid, methylprednisolone 60 mg IV every 6 hours, bronchodilator therapy with nebulizer in form of DuoNeb every 2 hours when necessary and 4 times a day, Symbicort inhaler 1604.5 twice a day 2. Acute chronic CHF with preserved EF - Patient has been placed on Lasix 20 mg IV twice a day per cardiology recommendations; 2-D echo is ordered and pending - We will continue to monitor strict AIRAM's, daily weights, low salt and fluid restricted diet 3. Acute hypoxemic respiratory failure related to COPD/CHF exacerbation; patient remains on O2 per nasal cannula; we will titrate as needed; pulmonary service on 4. Mild renal injury; creatinine is elevated at 1.3; hold off on IV fluid hydration given fluid overload; we will monitor strict AIRAM's, daily weights, renal function and electrolytes; avoid nephrotoxic agents 5. Hypertension; metoprolol 25 mg twice a day 6. Hyperlipidemia; Lipitor 20 mg by mouth daily at bedtime 7. Hypothyroidism; levothyroxine 50 MCG daily 8. Permanent atrial fibrillation; patient remains rate controlled on metoprolol with anticoagulation therapy with Eliquis DVT prophylaxis; SCDs/systemic anticoagulation CODE STATUS; full code
--- NOTE | 2021-10-16 16:35 | P.CNPUL ---
History of Present Illness Consult date: 10/16/21 Reason for consult: dyspnea, COPD History of present illness: 71-year-old male patient, presented yesterday to the emergency department because of worsening shortness of breath. The patient is known to have severe COPD with an FEV1 of 40% of predicted. He has a extensive comorbid conditions including history of coronary artery disease with previous history of a stable aortic dissection, chronic atrial fibrillation, hypertension, hyperlipidemia, aortic valve replacement there was none [facility] and the patient has a bioprosthetic aortic valve, history of prostate cancer, history of a right lower extremity DVT, and chronic liver disease related to alcoholism. The patient came in yesterday to [facility] because of worsening shortness of breath. Apparently after quit smoking, is back smoking about 1 pack of cigarettes a day. He had increased dyspnea cough chest tightness and wheezing. No pleurisy. No hemoptysis. No chest pain. He has already demented on long- term and to coagulation with Eliquis. In the emergency department, the patient was quite hypoxic with a pulse ox of 70% on room air. Initially he was placed on a nonrebreather and later on he was transitioned to BiPAP for respiratory support. After being briefly on BiPAP, the patient was taken off the BiPAP and switched back to nasal cannula. He was given bronchodilators. He was given steroids. Chest x-ray showed some mild four-vessel congestion. CT angiogram showed no evidence of any pulmonary embolism. The patient has a stable dissection of the descending aorta and the pleural effusion and chronic liver disease/cirrhosis. His most recent echocardiogram from September 2020 showed a 40- 45% and normally functioning bioprosthetic aortic valve . The blood gases were reviewed and the patient had a chronic compensated hypercapnic respiratory failure with a pH of 7.38 and a pCO2 of 60. Nevertheless the patient was hypoxic with a pO2 was 59 and this was done and FiO2 of 32%. The patient went on a BiPAP had a pH of 7.38 with a pCO2 of 59 and pO2 of 116 and this was on FiO2 of 50%. His current code 19 testing is negative. Influenza A and B screen are negative. RSV by PCR was also negative. ProBNP level was 5000. Troponin was at 0.02. Lactic acid level was at 1.9. [place] was a 7.3. The patient this afternoon is sitting up on a chair, comfortable. Tolerating his diet. No nausea no vomiting. He shortness of breath improved considerably and the patient is currently on 4 L O2 nasal cannula Review of Systems Constitutional: Reports fatigue, Reports weakness Eyes: denies as per HPI, denies blurred vision, denies bulging eye, denies decreased vision, denies diplopia, denies discharge, denies dry eye, denies irritation, denies itching, denies pain, denies photophobia, denies loss of peripheral vision, denies loss of vision, denies tunnel vision/blind spots Ears: deny: decreased hearing, ear discharge, earache, tinnitus Ears, nose, mouth and throat: Reports as per HPI Breasts: absent: as per HPI, gynecomastia Cardiovascular: Reports as per HPI, Reports decreased exercise tolerance, Reports dyspnea on exertion, Reports shortness of breath Respiratory: Reports as per HPI, Reports cough, Reports dyspnea Gastrointestinal: Reports as per HPI Genitourinary: Reports as per HPI Musculoskeletal: Reports as per HPI Musculoskeletal: absent: ankle pain, ankle stiffness, ankle swelling Integumentary: Reports as per HPI Neurological: Reports as per HPI Psychiatric: Reports as per HPI Endocrine: Reports as per HPI Hematologic/Lymphatic: Reports as per HPI Allergic/Immunologic: Reports as per HPI Past Medical History Past Medical History: Atrial Fibrillation, Atrial Flutter, Coronary Artery Disease (CAD), Cancer, Chest Pain / Angina, Heart Failure, COPD, CVA/TIA, Deep Vein Thrombosis (DVT), Eye Disorder, GERD/Reflux, GI Bleed, Hearing Disorder / Deafness, Hyperlipidemia, Hypertension, Liver Disease, Memory Impairment, Pneumonia, Vascular Disorder Additional Past Medical History / Comment(s): Stable dissection of the descending aorta, chronic atrial fibrillation and is anticoagulated with warfarin, aortic valve replacement with a bioprosthetic valve, pulmonary hypertension, chronic hypoxic respiratory failure with home O2 at , previous pneumonia 2008 and 2014, prostate cancer with prostatectomy, DVT R lower leg x2, macular degeneration L eye, left arm fracture, chronic tinnitus in both ears, gastritis, lower GIm bleed, UTI, liver cirrhosis related to history of alcoholism, hepatitis C at age 14yrs., feeding tube, alcoholism Last Myocardial Infarction Date:: unsure History of Any Multi-Drug Resistant Organisms: None Reported Date of last positivie culture/infection: None MDRO Source:: None Past Surgical History: Cardiac Valve Replacement, Cholecystectomy, Coronary Bypass/CABG, Heart Catheterization, Heart Catheterization With Stent, Hernia Repair, Orthopedic Surgery, Prostate Surgery Additional Past Surgical History / Comment(s): Aortic valve replacement, prostatectomy, right inguinal hernia repair 2, bilateral knee arthroscopy, colo noscopy/polypectomy, EGD, right leg varicose vein stripping, removal of a blood clot from the right lower extremity, cervical surgery d/t injury in [place] and removal of shrapnel's from the right shoulder, feeding tube Past Anesthesia/Blood Transfusion Reactions: No Reported Reaction Date of Last Stent Placement:: 2016 Past Psychological History: No Psychological Hx Reported Additional Psychological History / Comment(s): grandson lives with the patient. History of chronic tobacco use active and alcohol use active, old drug use Smoking Status: Former smoker Past Alcohol Use History: None Reported Additional Past Alcohol Use History / Comment(s): Pt started smoking in 1966 and is a 1.5 ppd smoker. He states he drinks daily and last drank on 09/16/18. Past Drug Use History: None Reported - Past Family History Mother Family Medical History: Diabetes Mellitus Additional Family Medical History / Comment(s): Mother at age 74 from diabetic complications. Father Family Medical History: Congestive Heart Failure (CHF) Additional Family Medical History / Comment(s): Father at age 91 yrs. Medications and Allergies Home Medications Medication Instructions Recorded Confirmed Type Apixaban [Eliquis] 5 mg PO BID 08/04/20 10/15/21 History Levothyroxine Sodium [Euthyrox] 50 mcg PO DAILY 08/04/20 10/15/21 History Metoprolol Tartrate 25 mg PO TID 08/04/20 10/15/21 History Aspirin EC [Ecotrin Low Dose] 81 mg PO DAILY 12/24/20 10/15/21 History Mirtazapine [Remeron] 15 mg PO HS 12/24/20 10/15/21 History Pantoprazole Sodium 40 mg PO AC-BRKFST 12/24/20 10/15/21 History Thiamine [Vitamin B-1] 100 mg PO DAILY 12/24/20 10/15/21 History Vit C/E/Zn/Coppr/Lutein/Zeaxan 1 cap PO DAILY 12/24/20 10/15/21 History [Preservision Areds 2 Softgel] Atorvastatin [Lipitor] 20 mg PO HS 10/15/21 10/15/21 History Escitalopram Oxalate [Lexapro] 20 mg PO DAILY 10/15/21 10/15/21 History Fluticasone Propion/Salmeterol 1 puff INHALATION RT-BID 10/15/21 10/15/21 History [Wixela 250-50 Inhub] Lidocaine 4% Cream [Lmx 4] 1 applic TOPICAL DAILY 10/15/21 10/15/21 History Torsemide [Demadex] 20 mg PO DAILY 10/15/21 10/15/21 History Allergies Allergy/AdvReac Type Severity Reaction Status Date / Time primidone Allergy Rash/Hives Verified 10/15/21 16:42 gabapentin AdvReac DIZZINESS Verified 10/15/21 16:42 Physical Exam Vitals: Vital Signs Temp Pulse Pulse Resp BP BP Pulse Ox 10/16/21 15:57 72 10/16/21 15:48 70 10/16/21 14:00 18 10/16/21 12:04 69 10/16/21 12:00 78 18 106/68 98 10/16/21 11:54 68 10/16/21 09:10 60 10/16/21 08:57 57 L 96 10/16/21 08:00 98.3 F 72 18 130/69 94 L 10/16/21 04:00 69 19 115/54 96 10/16/21 00:00 82 27 H 105/58 93 L 10/15/21 20:28 67 22 152/75 97 10/15/21 20:12 70 10/15/21 20:00 97.4 F L 68 22 174/81 99 10/15/21 19:57 70 10/15/21 18:13 74 23 136/65 92 L 10/15/21 16:59 72 Intake and Output 10/16/21 10/16/21 10/16/21 06:59 14:59 22:59 Intake Total 485 240 Output Total 1550 500 Balance -1065 -260 Intake: Oral 485 240 Output: Urine 1550 500 Other: Voiding Method Urinal # Bowel Movements 1 GENERAL EXAM: Alert, active, comfortable in no apparent distress. The patient is currently comfortable on 4 L of oxygen by nasal cannula. HEAD: Normocephalic. EYES: Normal reaction of pupils, equal size. NOSE: Clear with pink turbinates. THROAT: No erythema or exudates. NECK: No masses, no JVD. CHEST: No chest wall deformity. LUNGS: Equal air entry with no crackles, wheeze, rhonchi or dullness. Diminished. There are some scattered expiratory wheezes throughout the lung his bilaterally. Air entry is very much diminished in lung bases. The patient however his last bronchus spastic and wheezy compared to yesterday's evaluation. CVS: S1 and S2 normal with no audible mumurs, regular rhythm. ABDOMEN:Abdominal exam revealed normal bowel sounds. The abdomen was soft, non- tender, and without masses, organomegaly, or appreciable enlargement of the abdominal aorta. Extremities: There is trace peripheral edema. No clubbing, no cyanosis. Peripheral pulses are intact. Neurologic: Patient is alert and oriented 3 and the patient has no focal neurological deficit at this point. Results - Laboratory Findings CBC and BMP: 10/15/21 15:45 10/15/21 15:45 ABG ABG pH 7.38 (7.35-7.45) 10/15/21 19:03 ABG pCO2 59 mmHg (35-45) H 10/15/21 19:03 ABG pO2 116 mmHg (83-108) H 10/15/21 19:03 ABG O2 Saturation 98.7 % (94-97) H 10/15/21 19:03 PT/INR, D-dimer PT 12.6 sec (9.0-12.0) H 10/15/21 15:45 INR 1.2 (<1.2) H 10/15/21 15:45 D-Dimer 3.99 mg/L FEU (<0.60) H 10/15/21 15:56 Abnormal lab findings: Abnormal Labs 10/15/21 10/15/21 10/15/21 15:45 15:45 15:45 RBC 4.08 L Hgb 12.5 L Plt Count 126 L PT 12.6 H INR 1.2 H APTT 37.0 H D-Dimer ABG pCO2 ABG pO2 ABG HCO3 ABG Total CO2 ABG O2 Saturation Chloride 96 L Carbon Dioxide 37 H Creatinine 1.32 H Glucose 150 H Plasma Lactic Acid Silvino Calcium 8.3 L 10/15/21 10/15/21 10/15/21 15:45 15:56 17:22 RBC Hgb Plt Count PT INR APTT D-Dimer 3.99 H ABG pCO2 60 H ABG pO2 59 L* ABG HCO3 36 H ABG Total CO2 37 H ABG O2 Saturation 91.1 L Chloride Carbon Dioxide Creatinine Glucose Plasma Lactic Acid Silvino 2.3 H* Calcium 10/15/21 19:03 RBC Hgb Plt Count PT INR APTT D-Dimer ABG pCO2 59 H ABG pO2 116 H ABG HCO3 35 H ABG Total CO2 37 H ABG O2 Saturation 98.7 H Chloride Carbon Dioxide Creatinine Glucose Plasma Lactic Acid Silvino Calcium - Diagnostic Findings Chest x-ray: image reviewed CT scan - chest: image reviewed Assessment and Plan Plan: 1 acute COPD exacerbation with a suspected right lower lobe pneumonia and secondary shortness of breath. CAT scan of the chest shows no evidence of any pneumonia. No evidence of any filling defects of pulmonary embolism. The patient was briefly placed on BiPAP in the burst department and the patient is currently on 4 L of O2 nasal cannula, receiving a combination of bronchodilators steroids steroids for now. Noted the patient has severe COPD at baseline maintenance on Wixela Inhub and the patient is an FEV1 of 40% of predicted. 2 acute exacerbation of chronic hypoxic respiratory failure, currently on 4 L of oxygen by nasal cannula. The patient also has a component of chronic hypercapnic respiratory failure, compensated 3 shortness of breath secondary to above, there may be mild component of CHF as the patient has small better pleural effusion related proBNP level 4 coronary artery disease with previous coronary interventions and stenting 5 aortic valve replacement, history of and the patient has a bioprosthetic aortic valve in place. The patient's most recent echo On 2019 which with an ejection fraction of 45-50%. The patient had also normal functioning bioprosthetic aortic valve. Mild MR, mild TR 6 chronic atrial fibrillation maintained on long-term articulation with Eliquis 7 hypertension 8 hyperlipidemia 9 moderate hypertension with right ventricular systolic pressure of 52 and the largest right-sided cardiac structures 10 prostate cancer with a prostatectomy 11 previous history of chronic alcohol liver disease/liver cirrhosis 12 previous history of GI bleed with mild gastritis 13 stable aortic dissection and the patient has a stable ascending aortic dissection which was treated conservatively 14 macular degeneration 15 remote history of a right lower extremity DVT, maintained on long-term anticoagulation with Eliquis 16 additional aortic dissection to the right of the origin of the celiac axis 17 dilated pulmonary artery trunk consistent with secondary pulmonary hypertension 18 upper anterior abdominal wall hernia Plan Oxygen supplementation to maintain a saturation above 90% DuoNeb nebulized treatments around the clock IV Solu Medrol 60 mg every 6 hours Continue anticoagulation with Eliquis Resume all home medications Lasix 20 mg IV every 12 hours We'll continue to follow
[2021-10-16] MEDS: AZITHROMYCIN 500 MG TAB PO SCH (18:15)
[2021-10-16] MEDS: SYMBICORT 160-4.5 MCG INHALER INHALATION SCH (19:48)
[2021-10-16] MEDS: METOPROLOL TARTRATE 25 MG TAB PO SCH (19:49)
[2021-10-16] MEDS: ATORVASTATIN 20 MG TAB PO SCH (19:49)
[2021-10-16] MEDS: SYMBICORT 80-4.5 MCG INHALER INHALATION SCH ×2 (19:49)
[2021-10-16] MEDS: MIRTAZAPINE 15 MG TAB PO SCH (19:49)
[2021-10-17] MEDS: methylPREDNISolone SOD SUCCI 125 MG/2 ML VIAL IV SCH ×4 (00:15→18:26)
[2021-10-17] MEDS: PANTOPRAZOLE 40 MG TABLET PO SCH (06:36)
[2021-10-17 08:53] LABS: Calcium 8.9 mg/dL (8.4-10.2); Magnesium 1.9 mg/dL (1.6-2.3)
[2021-10-17] MEDS: APIXABAN 5 MG TAB PO SCH ×2 (09:05→20:14)
[2021-10-17] MEDS: LEVOTHYROXINE 50 MCG TAB PO SCH (09:05)
[2021-10-17] MEDS: METOPROLOL TARTRATE 25 MG TAB PO SCH ×2 (09:05→20:14)
[2021-10-17] MEDS: ESCITALOPRAM 20 MG TAB PO SCH (09:05)
[2021-10-17] MEDS: FUROSEMIDE 10 MG/ML 2 ML VIAL IV SCH ×2 (09:05→20:14)
[2021-10-17] MEDS: THIAMINE 100 MG TAB PO SCH (09:05)
[2021-10-17] MEDS: ASPIRIN 81 MG PO SCH (09:05)
[2021-10-17] MEDS: SYMBICORT 160-4.5 MCG INHALER INHALATION SCH ×2 (09:18→20:00)
[2021-10-17] MEDS: ALBUTEROL NEBULIZED 2.5 MG/3 ML INHALATION SCH ×2 (09:18→09:26)
[2021-10-17] MEDS: SYMBICORT 80-4.5 MCG INHALER INHALATION SCH (09:19)
[2021-10-17] MEDS: IPRATROPIUM-ALBUTEROL 3 ML NEB INHALATION SCH ×4 (09:20→20:00)
[2021-10-17] MEDS: LIDOCAINE 4% CREAM 5 GM TUBE TOPICAL SCH (10:21)
[2021-10-17 12:07] LABS: Glucose,Whole Blood 196 mg/dL (75-99)
[2021-10-17] MEDS: INSULIN ASPART (NovoLOG) 100 UNIT/ML VIAL SQ SCH ×3 (12:19→20:18)
--- NOTE | 2021-10-17 13:32 | P.PN ---
Subjective Progress Note Date: 10/17/21 71-year-old male patient, presented yesterday to the emergency department because of worsening shortness of breath. The patient is known to have severe COPD with an FEV1 of 40% of predicted. He has a extensive comorbid conditions including history of coronary artery disease with previous history of a stable aortic dissection, chronic atrial fibrillation, hypertension, hyperlipidemia, aortic valve replacement there was none [facility] and the patient has a bioprosthetic aortic valve, history of prostate cancer, history of a right lower extremity DVT, and chronic liver disease related to alcoholism. The patient came in yesterday to [facility] because of worsening shortness of breath. Apparently after quit smoking, is back smoking about 1 pack of cigarettes a day. He had increased dyspnea cough chest tightness and wheezing. No pleurisy. No hemoptysis. No chest pain. He has already demented on long- term and to coagulation with Eliquis. In the emergency department, the patient was quite hypoxic with a pulse ox of 70% on room air. Initially he was placed on a nonrebreather and later on he was transitioned to BiPAP for respiratory support. After being briefly on BiPAP, the patient was taken off the BiPAP and switched back to nasal cannula. He was given bronchodilators. He was given steroids. Chest x-ray showed some mild four-vessel congestion. CT angiogram showed no evidence of any pulmonary embolism. The patient has a stable dissection of the descending aorta and the pleural effusion and chronic liver disease/cirrhosis. His most recent echocardiogram from September 2020 showed a 40- 45% and normally functioning bioprosthetic aortic valve . The blood gases were reviewed and the patient had a chronic compensated hypercapnic respiratory failure with a pH of 7.38 and a pCO2 of 60. Nevertheless the patient was hypoxic with a pO2 was 59 and this was done and FiO2 of 32%. The patient went on a BiPAP had a pH of 7.38 with a pCO2 of 59 and pO2 of 116 and this was on FiO2 of 50%. His current COVID 19 testing is negative. Influenza A and B screen are negative. RSV by PCR was also negative. ProBNP level was 5000. Troponin was at 0.02. Lactic acid level was at 1.9. [place] was a 7.3. The patient this afternoon is sitting up on a chair, comfortable. Tolerating his diet. No nausea no vomiting. He shortness of breath improved considerably and the patient is currently on 4 L O2 nasal cannula On 10/17/2021, the patient is feeling better. The patient is less short of breath compared to yesterday. No chest pain. No cough or sputum production or chest that is so wheezing. The patient is awake and alert. No altered mentation. The patient remains on bronchodilators. He remains on systemic steroids and IV Solu-Medrol. As mentioned earlier, COVID19 testing has been negative. Labs from today shows a mean of 22, creatinine of 1.1, sodium is at 138. There is a BiPAP at the bedside. The patient has not utilizes BiPAP overnight. The patient is currently on IV Solu-Medrol, DuoNeb nebulized treatment [id number], and to coagulation with Eliquis 5 mg by mouth twice a day and the rest of the home medications have been ordered resume. He is also being gently diurese with IV Lasix 20 mg IV push every 12 hours. Objective - Vital Signs Vital signs: Vital Signs Temp 98.2 F 10/17/21 08:59 Pulse 62 10/17/21 12:17 Resp 18 10/17/21 12:17 BP 109/48 10/17/21 12:17 Pulse Ox 97 10/17/21 12:17 Intake & Output 10/16/21 10/17/21 10/17/21 18:59 06:59 18:59 Intake Total 476 118 Output Total 500 Balance -24 118 Intake: Oral 476 118 Output: Urine 500 Other: Voiding Method Urinal Urinal # Bowel Movements 1 - Exam GENERAL EXAM: Alert, active, comfortable in no apparent distress. The patient is currently comfortable on 4 L of oxygen by nasal cannula. HEAD: Normocephalic. EYES: Normal reaction of pupils, equal size. NOSE: Clear with pink turbinates. THROAT: No erythema or exudates. NECK: No masses, no JVD. CHEST: No chest wall deformity. LUNGS: Equal air entry with no crackles, wheeze, rhonchi or dullness. Diminished. There are some scattered expiratory wheezes throughout the lung his bilaterally. Air entry is very much diminished in lung bases. The patient however his last bronchus spastic and wheezy compared to yesterday's evaluation. CVS: S1 and S2 normal with no audible mumurs, regular rhythm. ABDOMEN:Abdominal exam revealed normal bowel sounds. The abdomen was soft, non- tender, and without masses, organomegaly, or appreciable enlargement of the abdominal aorta. Extremities: There is trace peripheral edema. No clubbing, no cyanosis. Peripheral pulses are intact. Neurologic: Patient is alert and oriented 3 and the patient has no focal neurological deficit at this point. - Labs CBC & Chem 7: 10/15/21 15:45 10/17/21 08:04 Labs: Abnormal Lab Results - Last 24 Hours (Table) 10/17/21 10/17/21 Range/Units 08:04 11:55 Chloride 95 L (98-107) mmol/L Carbon Dioxide 38 H (22-30) mmol/L BUN 28 H (9-20) mg/dL Glucose 154 H (74-99) mg/dL POC Glucose (mg/dL) 196 H (75-99) mg/dL Assessment and Plan Plan: 1 acute COPD exacerbation with a suspected right lower lobe pneumonia and s econdary shortness of breath. CAT scan of the chest shows no evidence of any pneumonia. No evidence of any filling defects of pulmonary embolism. The patient was briefly placed on BiPAP in the burst department and the patient is currently on 4 L of O2 nasal cannula, receiving a combination of bronchodilators steroids steroids for now. Noted the patient has severe COPD at baseline maintenance on Wixela Inhub and the patient is an FEV1 of 40% of predicted. 2 acute exacerbation of chronic hypoxic respiratory failure, currently on 4 L of oxygen by nasal cannula. The patient also has a component of chronic hypercapnic respiratory failure, compensated 3 shortness of breath secondary to above, there may be mild component of CHF as the patient has small better pleural effusion related proBNP level 4 coronary artery disease with previous coronary interventions and stenting 5 aortic valve replacement, history of and the patient has a bioprosthetic aortic valve in place. The patient's most recent echo On 2019 which with an ejection fraction of 45-50%. The patient had also normal functioning bioprosthetic aortic valve. Mild MR, mild TR 6 chronic atrial fibrillation maintained on long-term articulation with Eliquis 7 hypertension 8 hyperlipidemia 9 moderate hypertension with right ventricular systolic pressure of 52 and the largest right-sided cardiac structures 10 prostate cancer with a prostatectomy 11 previous history of chronic alcohol liver disease/liver cirrhosis 12 previous history of GI bleed with mild gastritis 13 stable aortic dissection and the patient has a stable ascending aortic dissection which was treated conservatively 14 macular degeneration 15 remote history of a right lower extremity DVT, maintained on long-term anticoagulation with Eliquis 16 additional aortic dissection to the right of the origin of the celiac axis 17 dilated pulmonary artery trunk consistent with secondary pulmonary hypertension 18 upper anterior abdominal wall hernia Plan The patient is clinically improving Continued IV Lasix Continue bronchodilators and Solu-Medrol Discontinue BiPAP therapy for now Advance activity as tolerated Cardiology evaluation Revealed blood work and electrolytes in the morning We'll continue to follow
[2021-10-17 16:30] LABS: Glucose,Whole Blood 197 mg/dL (75-99)
[2021-10-17] MEDS: AZITHROMYCIN 500 MG TAB PO SCH (16:59)
--- NOTE | 2021-10-17 18:24 | P.PN ---
Subjective HISTORY OF PRESENTING ILLNESS This is a pleasant 71-year-old male past medical history significant for coronary artery disease status post PCI of the proximal LAD in 2017, hypertension, dyslipidemia, valvular heart disease status post aortic valve replacement, Permanent atrial fibrillation (on Eliquis), COPD and former nicotine dependence, laparoscopic cholecystectomy 08/2020. He follows in the office with Dr. Sanabria. We have been asked to see in consultation for congestive heart failure. He presents to the emergency department with with 2-3 days of shortness of breath, cough, clear phlegm. He denies any orthopnea, PND or orthopnea. He denies any chest pain, palpitations, lightheadedness, dizziness, syncope or near syncope. He continues to smoke cigarettes 1.5PPD. He On arrival to the ER he was hypoxic with SpO2 in the 70%s, was placed on a non- rebreather and then BIPAP. DIAGNOSTICS -EKG reveals atrial fibrillation HR 58 -Telemetry tracings indicate atrial fibrillation HR 55-70s -Chest xray revealed some pulmonary venous congestion -CT Chest- No PE, similar dissection descending thoracic aorta, additional aortic dissection to the right, trace bilateral pleural effusions, hepatic cirrhosis -Echocardiogram obtained in the office 10/22/2020 revealed preserved LV systolic function with ejection fraction 50%, mildly dilated right ventricle, severely dilated left atrium, Severely dilated right atrium, biologic aortic valve prosthesis with moderate prosthetic valvular regurgitation, moderate to severe mitral regurgitation, moderate tricuspid regurgitation. -Laboratory reviewed, d-dimer 3.9, sodium 138, potassium 4.4, BUN 19, serum creatinine 1.3, lactate 2.3, repeat 1.5, troponin negative, proBNP 5060, WBC 7.3, hemoglobin 12.5, platelets 126 -Current cardiac medications include Eliquis 5 mg twice a day, torsemide 20 mg daily, metoprolol titrate 25 mg 3 times a day, atorvastatin 20 mg nightly, aspirin 81 mg daily -01/2020 underwent a Lexiscan stress test that was negative for reversible cardiac ischemia. 10/17 Patient seen and examined. Patient was started on Lasix 20 mg IV twice a day however denies much change in his urine output. Creatinine 1.1 today with a BUN of 28. ProBNP elevated on admission at 5000. States breathing slowly improving. PHYSICAL EXAMINATION Blood pressure CONSTITUTIONAL: No apparent distress. HEENT: Head is normocephalic. Pupils are equal, round. Sclerae anicteric. Mucous membranes of the mouth are moist. +JVD on right side of clavical CHEST EXAMINATION: Coarse crackles in the bases and Wheezing also noted. No chest wall tenderness is noted on palpation or with deep breathing. HEART EXAMINATION: Irregular rate and rhythm. S1, S2 heard. Systolic ejection murmur at the base and apex, no gallops or rub. ABDOMEN: Soft, Positive bowel sounds. EXTREMITIES: 2+ peripheral pulses, no edema and no calf tenderness. NEUROLOGIC EXAMINATION: Patient is awake, alert and oriented x3. ASSESSMENT COPD Exacerbation Acute on chronic heart failure with preserved ejection fraction Coronary artery disease s/p PCI to proximal LAD 2016 Permanent atrial fibrillation on eliquis Valvular heart disease s/p bioprostheic aortic valve replacement Hypertension Dyslipidemia COPD Chronic nicotine dependence PLAN Patient with likely COPD exacerbation but also appears to be overloaded on exam. 2D echocardiogram performed however results not transferred over. Obtain from other med record/ PACS. Monitor I/Os daily weights renal function and electrolytes Resume patient's home cardiac medications Continue with diuretics likely for one more day. Further recommendations baed on clinical course Objective - Vital Signs Vital signs: Vital Signs Temp 98.2 F 10/17/21 08:59 Pulse 78 10/17/21 16:56 Resp 18 10/17/21 16:56 BP 137/63 10/17/21 16:56 Pulse Ox 98 10/17/21 16:56 Intake & Output 10/16/21 10/17/21 10/17/21 18:59 06:59 18:59 Intake Total 476 478 Output Total 500 Balance -24 478 Intake: Oral 476 478 Output: Urine 500 Other: Voiding Method Urinal Urinal # Bowel Movements 1 - Labs CBC & Chem 7: 10/15/21 15:45 10/17/21 08:04 Labs: Abnormal Lab Results - Last 24 Hours (Table) 10/17/21 10/17/21 10/17/21 Range/Units 08:04 11:55 16:23 Chloride 95 L (98-107) mmol/L Carbon Dioxide 38 H (22-30) mmol/L BUN 28 H (9-20) mg/dL Glucose 154 H (74-99) mg/dL POC Glucose (mg/dL) 196 H 197 H (75-99) mg/dL
[2021-10-17] MEDS: ATORVASTATIN 20 MG TAB PO SCH (20:14)
[2021-10-17] MEDS: MIRTAZAPINE 15 MG TAB PO SCH (20:14)
[2021-10-17 20:27] LABS: Glucose,Whole Blood 179 mg/dL (75-99)
[2021-10-18] MEDS: methylPREDNISolone SOD SUCCI 125 MG/2 ML VIAL IV SCH ×4 (00:05→17:42)
[2021-10-18 06:02] LABS: Glucose,Whole Blood 160 mg/dL (75-99)
[2021-10-18] MEDS: PANTOPRAZOLE 40 MG TABLET PO SCH (06:06)
[2021-10-18] MEDS: INSULIN ASPART (NovoLOG) 100 UNIT/ML VIAL SQ SCH ×4 (06:06→20:24)
[2021-10-18] MEDS: IPRATROPIUM-ALBUTEROL 3 ML NEB INHALATION SCH ×4 (09:00→20:33)
[2021-10-18] MEDS: SYMBICORT 160-4.5 MCG INHALER INHALATION SCH ×2 (09:01→20:33)
[2021-10-18] MEDS: APIXABAN 5 MG TAB PO SCH ×2 (09:22→20:24)
[2021-10-18] MEDS: METOPROLOL TARTRATE 25 MG TAB PO SCH ×2 (09:22→20:24)
[2021-10-18] MEDS: LEVOTHYROXINE 50 MCG TAB PO SCH (09:23)
[2021-10-18] MEDS: ESCITALOPRAM 20 MG TAB PO SCH (09:23)
[2021-10-18] MEDS: ASPIRIN 81 MG PO SCH (09:23)
[2021-10-18] MEDS: LIDOCAINE 4% CREAM 5 GM TUBE TOPICAL SCH (09:23)
[2021-10-18] MEDS: FUROSEMIDE 10 MG/ML 2 ML VIAL IV SCH (09:23)
[2021-10-18] MEDS: THIAMINE 100 MG TAB PO SCH (09:23)
[2021-10-18 11:53] LABS: Glucose,Whole Blood 160 mg/dL (75-99)
--- NOTE | 2021-10-18 12:04 | P.PN ---
Subjective Progress Note Date: 10/17/21 Principal diagnosis: Acute exacerbation COPD Acute on chronic CHF with preserved EF Acute hypoxemic respiratory failure related to COPD/CHF exacerbation Mild renal injury 71-year-old male past medical history significant for coronary artery disease status post PCI of the proximal LAD in 2017, hypertension, dyslipidemia, valvular heart disease status post aortic valve replacement, Permanent atrial fibrillation (on Eliquis), COPD, presents to the emergency department with with 2-3 days of shortness of breath, cough, clear phlegm. He denies any orthopnea, PND or orthopnea. He denies any chest pain, palpitations, lightheadedness, dizziness, syncope or near syncope. He continues to smoke cigarettes 1.5PPD. He On arrival to the ER he was hypoxic with SpO2 in the 70%s, was placed on a non- rebreather and then BIPAP. Workup completed in ED-- EKG reveals atrial fibrillation HR 58; Chest xray revealed some pulmonary venous congestion -CT Chest- No PE, similar dissection descending thoracic aorta, additional aortic dissection to the right, trace bilateral pleural effusions, hepatic cirrhosis -Laboratory reviewed, d-dimer 3.9, sodium 138, potassium 4.4, BUN 19, serum creatinine 1.3, lactate 2.3, repeat 1.5, troponin negative, proBNP 5060, WBC 7.3, hemoglobin 12.5, platelets 126 10/17/2021: Patient is seen and evaluated in room at bedside; reports feeling better. The patient is less short of breath compared to yesterday. Vital signs are reviewed and stable with temperature of 98.2, pulse 60, respiration 18 and blood pressure 109/48, O2 saturation 97% The patient remains on bronchodilators. He remains on systemic steroids and IV Solu-Medrol. As mentioned earlier, COVID19 testing has been negative. Labs from today shows a mean of 22, creatinine of 1.1, sodium is at 138. There is a BiPAP at the bedside. The patient has not utilizes BiPAP overnight. The patient is currently on IV Solu-Medrol, DuoNeb nebulized treatment [id number], and to coagulation with Eliquis 5 mg by mouth twice a day and the rest of the home medications have been ordered resume. He is also being gently diurese with IV Lasix 20 mg IV push every 12 hours. Objective - Vital Signs Vital signs: Vital Signs Temp 98.2 F 10/17/21 08:59 Pulse 80 10/17/21 09:33 Resp 18 10/17/21 08:59 BP 130/65 10/17/21 08:59 Pulse Ox 94 L 10/17/21 08:59 Intake & Output 10/16/21 10/17/21 10/17/21 18:59 06:59 18:59 Intake Total 476 118 Output Total 500 Balance -24 118 Intake: Oral 476 118 Output: Urine 500 Other: Voiding Method Urinal Urinal # Bowel Movements 1 - Exam CONSTITUTIONAL: No apparent distress. HEENT: Head is normocephalic. Pupils are equal, round. Sclerae anicteric. Mucous membranes of the mouth are moist. +JVD on right side of clavical CHEST EXAMINATION: Coarse crackles in the bases and Wheezing also noted. No chest wall tenderness is noted on palpation or with deep breathing. HEART EXAMINATION: Irregular rate and rhythm. S1, S2 heard. Systolic ejection murmur at the base and apex, no gallops or rub. ABDOMEN: Soft, Positive bowel sounds. EXTREMITIES: 2+ peripheral pulses, no edema and no calf tenderness. NEUROLOGIC EXAMINATION: Patient is awake, alert and oriented x3. - Labs CBC & Chem 7: 10/15/21 15:45 10/17/21 08:04 Labs: Abnormal Lab Results - Last 24 Hours (Table) 10/17/21 Range/Units 08:04 Chloride 95 L (98-107) mmol/L Carbon Dioxide 38 H (22-30) mmol/L BUN 28 H (9-20) mg/dL Glucose 154 H (74-99) mg/dL Assessment and Plan Assessment: 1. Acute exacerbation COPD - Patient has been placed on IV steroid, methylprednisolone 60 mg IV every 6 hours, bronchodilator therapy with nebulizer in form of DuoNeb every 2 hours when necessary and 4 times a day, Symbicort inhaler 1604.5 twice a day 2. Acute chronic CHF with preserved EF - Patient has been placed on Lasix 20 mg IV twice a day per cardiology recommendations; 2-D echo is ordered and pending - We will continue to monitor strict AIRAM's, daily weights, low salt and fluid restricted diet 3. Acute hypoxemic respiratory failure related to COPD/CHF exacerbation; patient remains on O2 per nasal cannula; we will titrate as needed; pulmonary service on 4. Mild renal injury; creatinine is elevated at 1.3; hold off on IV fluid hydration given fluid overload; we will monitor strict AIRAM's, daily weights, renal function and electrolytes; avoid nephrotoxic agents 5. Hypertension; metoprolol 25 mg twice a day 6. Hyperlipidemia; Lipitor 20 mg by mouth daily at bedtime 7. Hypothyroidism; levothyroxine 50 MCG daily 8. Permanent atrial fibrillation; patient remains rate controlled on metoprolol with anticoagulation therapy with Eliquis DVT prophylaxis; SCDs/systemic anticoagulation CODE STATUS; full code
[2021-10-18 12:57] LABS: Basophils % (A) 0 %; Eosinophils % (A) 0 %; HCT 42.8 % (39.0-53.0); HGB 13.4 gm/dL (13.0-17.5); Hypochromasia Moderate; Lymphocytes # (A) 0.5 k/uL (1.0-4.8); Lymphocytes % (A) 5 %; MCH 30.7 pg (25.0-35.0); MCHC 31.2 g/dL (31.0-37.0); MCV 98.1 fL (80.0-100.0); Mean Platelet Volume 8.7; Monocytes # (A) 0.3 k/uL (0-1.0); Monocytes % (A) 3 %; Neutrophils % (A) 92 %; Platelet Count 155 k/uL (150-450); RBC 4.36 m/uL (4.30-5.90); RDW 13.7 % (11.5-15.5); WBC 10.9 k/uL (3.8-10.6)
[2021-10-18 13:11] LABS: Calcium 8.7 mg/dL (8.4-10.2); Potassium 4.2 mmol/L (3.5-5.1); Total Bilirubin 0.7 mg/dL (0.2-1.3); Total Protein 8.1 g/dL (6.3-8.2)
--- NOTE | 2021-10-18 15:30 | P.PN ---
Subjective Progress Note Date: 10/18/21 71-year-old male patient, presented yesterday to the emergency department because of worsening shortness of breath. The patient is known to have severe COPD with an FEV1 of 40% of predicted. He has a extensive comorbid conditions including history of coronary artery disease with previous history of a stable aortic dissection, chronic atrial fibrillation, hypertension, hyperlipidemia, aortic valve replacement there was none [facility] and the patient has a bioprosthetic aortic valve, history of prostate cancer, history of a right lower extremity DVT, and chronic liver disease related to alcoholism. The patient came in yesterday to [facility] because of worsening shortness of breath. Apparently after quit smoking, is back smoking about 1 pack of cigarettes a day. He had increased dyspnea cough chest tightness and wheezing. No pleurisy. No hemoptysis. No chest pain. He has already demented on long- term and to coagulation with Eliquis. In the emergency department, the patient was quite hypoxic with a pulse ox of 70% on room air. Initially he was placed on a nonrebreather and later on he was transitioned to BiPAP for respiratory support. After being briefly on BiPAP, the patient was taken off the BiPAP and switched back to nasal cannula. He was given bronchodilators. He was given steroids. Chest x-ray showed some mild four-vessel congestion. CT angiogram showed no evidence of any pulmonary embolism. The patient has a stable dissection of the descending aorta and the pleural effusion and chronic liver disease/cirrhosis. His most recent echocardiogram from September 2020 showed a 40- 45% and normally functioning bioprosthetic aortic valve . The blood gases were reviewed and the patient had a chronic compensated hypercapnic respiratory failure with a pH of 7.38 and a pCO2 of 60. Nevertheless the patient was hypoxic with a pO2 was 59 and this was done and FiO2 of 32%. The patient went on a BiPAP had a pH of 7.38 with a pCO2 of 59 and pO2 of 116 and this was on FiO2 of 50%. His current COVID 19 testing is negative. Influenza A and B screen are negative. RSV by PCR was also negative. ProBNP level was 5000. Troponin was at 0.02. Lactic acid level was at 1.9. Celina was a 7.3. The patient this afternoon is sitting up on a chair, comfortable. Tolerating his diet. No nausea no vomiting. He shortness of breath improved considerably and the patient is currently on 4 L O2 nasal cannula On 10/17/2021, the patient is feeling better. The patient is less short of breath compared to yesterday. No chest pain. No cough or sputum production or chest that is so wheezing. The patient is awake and alert. No altered mentation. The patient remains on bronchodilators. He remains on systemic steroids and IV Solu-Medrol. As mentioned earlier, COVID19 testing has been negative. Labs from today shows a mean of 22, creatinine of 1.1, sodium is at 138. There is a BiPAP at the bedside. The patient has not utilizes BiPAP overnight. The patient is currently on IV Solu-Medrol, DuoNeb nebulized treatment [id number], and to coagulation with Eliquis 5 mg by mouth twice a day and the rest of the home medications have been ordered resume. He is also being gently diurese with IV Lasix 20 mg IV push every 12 hours. 10/18/2021, I'm seeing the patient for a follow-up. Doing well. Less short of breath. Continues to improve. Remains on bronchodilators. He remains on IV Solu-Medrol. Remains on Lasix 20 mg of push every 12 hours. The patient's overall fluid balance has been negative and the patient has a white cell count of 10.9 with hemoglobin 13.4. Gait is a 37 with a creatinine of 1.2 and sodium level is at 139 with a potassium level of 4.2. Family is at the bedside. The patient denies having any chest pain. He is on antibiotics and the patient is currently on Zithromax. A repeat chest x-ray will be obtained for tomorrow. Remains on bronchodilators. Remains on long-term medical condition with Eliquis. He is on O2 at 3 L with a pulse ox of 93%. Objective - Vital Signs Vital signs: Vital Signs Temp 97.9 F 10/18/21 09:19 Pulse 71 10/18/21 15:08 Resp 18 10/18/21 15:08 BP 122/66 10/18/21 12:27 Pulse Ox 93 L 10/18/21 12:27 Intake & Output 10/17/21 10/18/21 10/18/21 18:59 06:59 18:59 Intake Total 718 236 Balance 718 236 Intake: Oral 718 236 Other: Voiding Method Urinal Urinal Urinal # Voids 2 - Exam GENERAL EXAM: Alert, active, comfortable in no apparent distress. The patient is currently comfortable on 4 L of oxygen by nasal cannula. HEAD: Normocephalic. EYES: Normal reaction of pupils, equal size. NOSE: Clear with pink turbinates. THROAT: No erythema or exudates. NECK: No masses, no JVD. CHEST: No chest wall deformity. LUNGS: Equal air entry with no crackles, wheeze, rhonchi or dullness. Diminished. There are some scattered expiratory wheezes throughout the lung his bilaterally. Air entry is very much diminished in lung bases. The patient however his last bronchus spastic and wheezy compared to yesterday's evaluation. CVS: S1 and S2 normal with no audible mumurs, regular rhythm. ABDOMEN:Abdominal exam revealed normal bowel sounds. The abdomen was soft, non- tender, and without masses, organomegaly, or appreciable enlargement of the abdominal aorta. Extremities: There is trace peripheral edema. No clubbing, no cyanosis. Peripheral pulses are intact. Neurologic: Patient is alert and oriented 3 and the patient has no focal neurological deficit at this point. - Labs CBC & Chem 7: 10/18/21 12:37 10/18/21 12:37 Labs: Abnormal Lab Results - Last 24 Hours (Table) 10/17/21 10/17/21 10/18/21 Range/Units 16:23 20:19 06:01 WBC (3.8-10.6) k/uL Neutrophils # (1.3-7.7) k/uL Lymphocytes # (1.0-4.8) k/uL Chloride (98-107) mmol/L Carbon Dioxide (22-30) mmol/L BUN (9-20) mg/dL Glucose (74-99) mg/dL POC Glucose (mg/dL) 197 H 179 H 160 H (75-99) mg/dL 10/18/21 10/18/21 10/18/21 Range/Units 11:45 12:37 12:37 WBC 10.9 H (3.8-10.6) k/uL Neutrophils # 10.0 H (1.3-7.7) k/uL Lymphocytes # 0.5 L (1.0-4.8) k/uL Chloride 94 L (98-107) mmol/L Carbon Dioxide 39 H (22-30) mmol/L BUN 37 H (9-20) mg/dL Glucose 205 H (74-99) mg/dL POC Glucose (mg/dL) 160 H (75-99) mg/dL Assessment and Plan Plan: 1 acute COPD exacerbation with a suspected right lower lobe pneumonia and secondary shortness of breath. CAT scan of the chest shows no evidence of any pneumonia. No evidence of any filling defects of pulmonary embolism. The patient was briefly placed on BiPAP in the burst department and the patient is currently on 3 L of O2 nasal cannula, receiving a combination of bronchodilators steroids steroids for now. Noted the patient has severe COPD at baseline maintenance on Wixela Inhub and the patient is an FEV1 of 40% of predicted. The patient is clinically improving. 2 acute exacerbation of chronic hypoxic respiratory failure,\The patient also has a component of chronic hypercapnic respiratory failure, compensated, currently untreated of oxygen by nasal cannula 3 shortness of breath secondary to above, there may be mild component of CHF as the patient has small better pleural effusion related proBNP level 4 coronary artery disease with previous coronary interventions and stenting 5 aortic valve replacement, history of and the patient has a bioprosthetic aortic valve in place. The patient's most recent echo from 2020 which with an ejection fraction of 45-50%. The patient had also normal functioning bioprosthetic aortic valve. Mild MR, mild TR 6 chronic atrial fibrillation maintained on long-term articulation with Eliquis 7 hypertension 8 hyperlipidemia 9 moderate hypertension with right ventricular systolic pressure of 52 and the largest right-sided cardiac structures 10 prostate cancer with a prostatectomy 11 previous history of chronic alcohol liver disease/liver cirrhosis 12 previous history of GI bleed with mild gastritis 13 stable aortic dissection and the patient has a stable ascending aortic dissection which was treated conservatively 14 macular degeneration 15 remote history of a right lower extremity DVT, maintained on long-term anticoagulation with Eliquis 16 additional aortic dissection to the right of the origin of the celiac axis 17 dilated pulmonary artery trunk consistent with secondary pulmonary hypertension 18 upper anterior abdominal wall hernia Plan The patient is clinically improving Continued IV Lasix for another 24 hours Continue bronchodilators and Solu-Medrol for another 24 hours Obtain chest x-ray for tomorrow Advance activity as tolerated Cardiology evaluation is appreciated Revealed blood work and electrolytes in the morning We'll continue to follow
--- NOTE | 2021-10-18 15:50 | P.PN ---
Subjective HISTORY OF PRESENTING ILLNESS This is a pleasant 71-year-old male past medical history significant for coronary artery disease status post PCI of the proximal LAD in 2017, hypertension, dyslipidemia, valvular heart disease status post aortic valve replacement, Permanent atrial fibrillation (on Eliquis), COPD and former nicotine dependence, laparoscopic cholecystectomy 08/2020. He follows in the office with Dr. Sanabria. We have been asked to see in consultation for congestive heart failure. He presents to the emergency department with with 2-3 days of shortness of breath, cough, clear phlegm. He denies any orthopnea, PND or orthopnea. He denies any chest pain, palpitations, lightheadedness, dizziness, syncope or near syncope. He continues to smoke cigarettes 1.5PPD. He On arrival to the ER he was hypoxic with SpO2 in the 70%s, was placed on a non- rebreather and then BIPAP. DIAGNOSTICS -EKG reveals atrial fibrillation HR 58 -Telemetry tracings indicate atrial fibrillation HR 55-70s -Chest xray revealed some pulmonary venous congestion -CT Chest- No PE, similar dissection descending thoracic aorta, additional aortic dissection to the right, trace bilateral pleural effusions, hepatic cirrhosis -Echocardiogram obtained in the office 10/22/2020 revealed preserved LV systolic function with ejection fraction 50%, mildly dilated right ventricle, severely dilated left atrium, Severely dilated right atrium, biologic aortic valve prosthesis with moderate prosthetic valvular regurgitation, moderate to severe mitral regurgitation, moderate tricuspid regurgitation. -Laboratory reviewed, d-dimer 3.9, sodium 138, potassium 4.4, BUN 19, serum creatinine 1.3, lactate 2.3, repeat 1.5, troponin negative, proBNP 5060, WBC 7.3, hemoglobin 12.5, platelets 126 -Current cardiac medications include Eliquis 5 mg twice a day, torsemide 20 mg daily, metoprolol titrate 25 mg 3 times a day, atorvastatin 20 mg nightly, aspirin 81 mg daily -01/2020 underwent a Lexiscan stress test that was negative for reversible cardiac ischemia. 10/17 Patient seen and examined. Patient was started on Lasix 20 mg IV twice a day however denies much change in his urine output. Creatinine 1.1 today with a BUN of 28. ProBNP elevated on admission at 5000. States breathing slowly improving. 10/18 In Senior examined. Patient denies any chest pain or pressure. States is slowly feeling better. States he has been standing up without any lightheadedness. PHYSICAL EXAMINATION Blood pressure CONSTITUTIONAL: No apparent distress. HEENT: Head is normocephalic. Pupils are equal, round. Sclerae anicteric. Mucous membranes of the mouth are moist. +JVD on right side of clavical CHEST EXAMINATION: Coarse crackles in the bases and Wheezing also noted. No chest wall tenderness is noted on palpation or with deep breathing. HEART EXAMINATION: Irregular rate and rhythm. S1, S2 heard. Systolic ejection murmur at the base and apex, no gallops or rub. ABDOMEN: Soft, Positive bowel sounds. EXTREMITIES: 2+ peripheral pulses, no edema and no calf tenderness. NEUROLOGIC EXAMINATION: Patient is awake, alert and oriented x3. ASSESSMENT COPD Exacerbation Acute on chronic heart failure with preserved ejection fraction Coronary artery disease s/p PCI to proximal LAD 2016 Permanent atrial fibrillation on eliquis Valvular heart disease s/p bioprostheic aortic valve replacement Hypertension Dyslipidemia COPD Chronic nicotine dependence PLAN Patient with likely COPD exacerbation but also appears to be overloaded on exam. 2D echocardiogram performed however results not transferred over. Obtain from other med record/ PACS. Monitor I/Os daily weights renal function and electrolytes Resume patient's home cardiac medications Renal function has been staying stable creatinine 1.2 today. Appears to be improving with IV diuresis. Change to oral Lasix tomorrow. Likely home in next 24 hours if patient remains stable. Further recommendations based on clinical course Objective - Vital Signs Vital signs: Vital Signs Temp 97.9 F 10/18/21 09:19 Pulse 71 10/18/21 15:08 Resp 18 10/18/21 15:08 BP 122/66 10/18/21 12:27 Pulse Ox 93 L 10/18/21 12:27 Intake & Output 10/17/21 10/18/21 10/18/21 18:59 06:59 18:59 Intake Total 718 236 Balance 718 236 Intake: Oral 718 236 Other: Voiding Method Urinal Urinal Urinal # Voids 2 - Labs CBC & Chem 7: 10/18/21 12:37 10/18/21 12:37 Labs: Abnormal Lab Results - Last 24 Hours (Table) 10/17/21 10/17/21 10/18/21 Range/Units 16:23 20:19 06:01 WBC (3.8-10.6) k/uL Neutrophils # (1.3-7.7) k/uL Lymphocytes # (1.0-4.8) k/uL Chloride (98-107) mmol/L Carbon Dioxide (22-30) mmol/L BUN (9-20) mg/dL Glucose (74-99) mg/dL POC Glucose (mg/dL) 197 H 179 H 160 H (75-99) mg/dL 10/18/21 10/18/21 10/18/21 Range/Units 11:45 12:37 12:37 WBC 10.9 H (3.8-10.6) k/uL Neutrophils # 10.0 H (1.3-7.7) k/uL Lymphocytes # 0.5 L (1.0-4.8) k/uL Chloride 94 L (98-107) mmol/L Carbon Dioxide 39 H (22-30) mmol/L BUN 37 H (9-20) mg/dL Glucose 205 H (74-99) mg/dL POC Glucose (mg/dL) 160 H (75-99) mg/dL
[2021-10-18 17:00] LABS: Glucose,Whole Blood 158 mg/dL (75-99)
[2021-10-18] MEDS: AZITHROMYCIN 500 MG TAB PO SCH (17:24)
[2021-10-18 19:45] LABS: Glucose,Whole Blood 177 mg/dL (75-99)
--- NOTE | 2021-10-18 19:51 | P.PN ---
Subjective Progress Note Date: 10/18/21 Principal diagnosis: Acute exacerbation COPD Acute on chronic CHF with preserved EF Acute hypoxemic respiratory failure related to COPD/CHF exacerbation Mild renal injury 71-year-old male past medical history significant for coronary artery disease status post PCI of the proximal LAD in 2017, hypertension, dyslipidemia, valvular heart disease status post aortic valve replacement, Permanent atrial fibrillation (on Eliquis), COPD, presents to the emergency department with with 2-3 days of shortness of breath, cough, clear phlegm. He denies any orthopnea, PND or orthopnea. He denies any chest pain, palpitations, lightheadedness, dizziness, syncope or near syncope. He continues to smoke cigarettes 1.5PPD. He On arrival to the ER he was hypoxic with SpO2 in the 70%s, was placed on a non- rebreather and then BIPAP. Workup completed in ED-- EKG reveals atrial fibrillation HR 58; Chest xray revealed some pulmonary venous congestion -CT Chest- No PE, similar dissection descending thoracic aorta, additional aortic dissection to the right, trace bilateral pleural effusions, hepatic cirrhosis -Laboratory reviewed, d-dimer 3.9, sodium 138, potassium 4.4, BUN 19, serum creatinine 1.3, lactate 2.3, repeat 1.5, troponin negative, proBNP 5060, WBC 7.3, hemoglobin 12.5, platelets 126 10/17/2021: Patient is seen and evaluated in room at bedside; reports feeling better. The patient is less short of breath compared to yesterday. Vital signs are reviewed and stable with temperature of 98.2, pulse 60, respiration 18 and blood pressure 109/48, O2 saturation 97% The patient remains on bronchodilators. He remains on systemic steroids and IV Solu-Medrol. As mentioned earlier, COVID19 testing has been negative. Labs from today shows a mean of 22, creatinine of 1.1, sodium is at 138. There is a BiPAP at the bedside. The patient has not utilizes BiPAP overnight. The patient is currently on IV Solu-Medrol, DuoNeb nebulized treatment [id number], and to coagulation with Eliquis 5 mg by mouth twice a day and the rest of the home medications have been ordered resume. He is also being gently diurese with IV Lasix 20 mg IV push every 12 hours. 10/18/2021; Patient is seen and evaluated in follow-up. Reports improvement.. Continues to improve. Vital signs are reviewed and reveal temperature of 97.9, pulse 71, respiration 18 and blood pressure 122/66 with O2 saturation of 93% Lab review shows WBC of 10.9, hemoglobin 13.4 and platelet count of 155, sodium 139, potassium 4.2, BUN/creatinine of 37/1.2 with blood glucose of 205 Remains on bronchodilators. He remains on IV Solu-Medrol. Remains on Lasix 20 mg of push every 12 hours. The patient's overall fluid balance has been negative and the patient has a white cell count of 10.9 with hemoglobin 13.4. Gait is a 37 with a creatinine of 1.2 and sodium level is at 139 with a potassium level of 4.2. Family is at the bedside. The patient denies having any chest pain. He is on antibiotics and the patient is currently on Zithromax. A repeat chest x-ray will be obtained for tomorrow. Remains on bronchodilat ors. Remains on long-term medical condition with Eliquis. He is on O2 at 3 L with a pulse ox of 93%. Patient remains on IV Lasix with plans to continue for another 24 hours; pulmonary recommending to continue with bronchodilator nebulizer treatments and IV Solu-Medrol for another 24 hours prior to transition to oral medications Objective - Vital Signs Vital signs: Vital Signs Temp 97.9 F 10/18/21 09:19 Pulse 74 10/18/21 12:02 Resp 18 10/18/21 09:19 BP 127/53 10/18/21 09:19 Pulse Ox 96 10/18/21 09:19 Intake & Output 10/17/21 10/18/21 10/18/21 18:59 06:59 18:59 Intake Total 718 Balance 718 Intake: Oral 718 Other: Voiding Method Urinal Urinal Urinal - Exam CONSTITUTIONAL: No apparent distress. HEENT: Head is normocephalic. Pupils are equal, round. Sclerae anicteric. Mucous membranes of the mouth are moist. +JVD on right side of clavical CHEST EXAMINATION: Coarse crackles in the bases and Wheezing also noted. No chest wall tenderness is noted on palpation or with deep breathing. HEART EXAMINATION: Irregular rate and rhythm. S1, S2 heard. Systolic ejection murmur at the base and apex, no gallops or rub. ABDOMEN: Soft, Positive bowel sounds. EXTREMITIES: 2+ peripheral pulses, no edema and no calf tenderness. NEUROLOGIC EXAMINATION: Patient is awake, alert and oriented x3. - Labs CBC & Chem 7: 10/18/21 12:37 10/18/21 12:37 Labs: Abnormal Lab Results - Last 24 Hours (Table) 10/17/21 10/17/21 10/17/21 Range/Units 11:55 16:23 20:19 POC Glucose (mg/dL) 196 H 197 H 179 H (75-99) mg/dL 10/18/21 10/18/21 Range/Units 06:01 11:45 POC Glucose (mg/dL) 160 H 160 H (75-99) mg/dL Assessment and Plan Assessment: 1. Acute exacerbation COPD - Patient has been placed on IV steroid, methylprednisolone 60 mg IV every 6 hours, bronchodilator therapy with nebulizer in form of DuoNeb every 2 hours when necessary and 4 times a day, Symbicort inhaler 1604.5 twice a day 2. Acute chronic CHF with preserved EF - Patient has been placed on Lasix 20 mg IV twice a day per cardiology recommendations; 2-D echo is ordered and pending - We will continue to monitor strict AIRAM's, daily weights, low salt and fluid restricted diet 3. Acute hypoxemic respiratory failure related to COPD/CHF exacerbation; patient remains on O2 per nasal cannula; we will titrate as needed; pulmonary se rvice on 4. Mild renal injury; creatinine is elevated at 1.3; hold off on IV fluid hydration given fluid overload; we will monitor strict AIRAM's, daily weights, renal function and electrolytes; avoid nephrotoxic agents 5. Hypertension; metoprolol 25 mg twice a day 6. Hyperlipidemia; Lipitor 20 mg by mouth daily at bedtime 7. Hypothyroidism; levothyroxine 50 MCG daily 8. Permanent atrial fibrillation; patient remains rate controlled on metoprolol with anticoagulation therapy with Eliquis DVT prophylaxis; SCDs/systemic anticoagulation CODE STATUS; full code
[2021-10-18] MEDS: MIRTAZAPINE 15 MG TAB PO SCH (20:24)
[2021-10-18] MEDS: ATORVASTATIN 20 MG TAB PO SCH (20:24)
[2021-10-19] MEDS: methylPREDNISolone SOD SUCCI 125 MG/2 ML VIAL IV SCH ×3 (00:28→12:32)
[2021-10-19 06:06] LABS: Glucose,Whole Blood 177 mg/dL (75-99)
[2021-10-19] MEDS: INSULIN ASPART (NovoLOG) 100 UNIT/ML VIAL SQ SCH ×3 (06:50→17:35)
[2021-10-19] MEDS: PANTOPRAZOLE 40 MG TABLET PO SCH (06:50)
[2021-10-19 07:50] LABS: Basophils % (A) 0 %; Eosinophils % (A) 0 %; HCT 39.8 % (39.0-53.0); HGB 12.6 gm/dL (13.0-17.5); Hypochromasia Slight; Lymphocytes # (A) 0.4 k/uL (1.0-4.8); Lymphocytes % (A) 5 %; MCH 30.5 pg (25.0-35.0); MCHC 31.6 g/dL (31.0-37.0); MCV 96.4 fL (80.0-100.0); Monocytes # (A) 0.3 k/uL (0-1.0); Monocytes % (A) 4 %; Neutrophils # (A) 7.3 k/uL (1.3-7.7); Neutrophils % (A) 90 %; Platelet Count 131 k/uL (150-450); RBC 4.13 m/uL (4.30-5.90); RDW 13.7 % (11.5-15.5); WBC 8.1 k/uL (3.8-10.6)
--- NOTE | 2021-10-19 07:54 | XR ---
EXAMINATION TYPE: XR chest 1V DATE OF EXAM: 10/19/2021 COMPARISON: 10/15/2021 HISTORY: 71-year-old male CHF, pneumonia TECHNIQUE: Single frontal view of the chest is obtained. FINDINGS: Median sternotomy wires are present. Prosthetic aortic valve. Surgical clips project at the high righ t axilla. Mild atherosclerotic arch calcifications. Heart mildly enlarged. Mild interstitial prominen ce with mild patchy interstitial density at the left base. No sizable effusion on the frontal view. IMPRESSION: 1. Mild cardiomegaly and similar interstitial prominence, possible mild CHF with pulmonary vascular c ongestion. 2. Mild patchy opacity at the left base could represent early developing infiltrate or early developi ng pulmonary edema. Follow-up can be performed.
[2021-10-19] MEDS: IPRATROPIUM-ALBUTEROL 3 ML NEB INHALATION SCH ×3 (08:00→15:21)
[2021-10-19] MEDS: SYMBICORT 160-4.5 MCG INHALER INHALATION SCH (08:00)
[2021-10-19 08:13] LABS: Calcium 8.4 mg/dL (8.4-10.2); Potassium 4.4 mmol/L (3.5-5.1)
[2021-10-19] MEDS ORDERED: FUROSEMIDE 40 MG TAB PO SCH (09:00)
[2021-10-19] MEDS: ASPIRIN 81 MG PO SCH (09:05)
[2021-10-19] MEDS: APIXABAN 5 MG TAB PO SCH (09:05)
[2021-10-19] MEDS: ESCITALOPRAM 20 MG TAB PO SCH (09:05)
[2021-10-19] MEDS: METOPROLOL TARTRATE 25 MG TAB PO SCH (09:05)
[2021-10-19] MEDS: LIDOCAINE 4% CREAM 5 GM TUBE TOPICAL SCH (09:05)
[2021-10-19] MEDS: LEVOTHYROXINE 50 MCG TAB PO SCH (09:05)
[2021-10-19] MEDS: THIAMINE 100 MG TAB PO SCH (09:05)
[2021-10-19 10:16] VITALS: RESP 18; TEMP 97.6
[2021-10-19 11:47] LABS: Glucose,Whole Blood 131 mg/dL (75-99)
--- NOTE | 2021-10-19 12:13 | P.PN ---
Subjective Progress Note Date: 10/19/21 HISTORY OF PRESENT ILLNESS: This is a pleasant 71-year-old male past medical history significant for coronary artery disease status post PCI of the proximal LAD in 2017, h ypertension, dyslipidemia, valvular heart disease status post aortic valve replacement, Permanent atrial fibrillation (on Eliquis), COPD and former nicotine dependence, laparoscopic cholecystectomy 08/2020. He follows in the office with Dr. Sanabria. We have been asked to see in consultation for congestive heart failure. He presents to the emergency department with with 2-3 days of shortness of breath, cough, clear phlegm. He denies any orthopnea, PND or orthopnea. He denies any chest pain, palpitations, lightheadedness, dizziness, syncope or near syncope. He continues to smoke cigarettes 1.5PPD. He On arrival to the ER he was hypoxic with SpO2 in the 70%s, was placed on a non- rebreather and then BIPAP. DIAGNOSTICS -EKG reveals atrial fibrillation HR 58 -Telemetry tracings indicate atrial fibrillation HR 55-70s -Chest xray revealed some pulmonary venous congestion -CT Chest- No PE, similar dissection descending thoracic aorta, additional aortic dissection to the right, trace bilateral pleural effusions, hepatic cirrhosis -Echocardiogram obtained in the office 10/22/2020 revealed preserved LV systolic function with ejection fraction 50%, mildly dilated right ventricle, severely dilated left atrium, Severely dilated right atrium, biologic aortic valve prosthesis with moderate prosthetic valvular regurgitation, moderate to severe mitral regurgitation, moderate tricuspid regurgitation. -Laboratory reviewed, d-dimer 3.9, sodium 138, potassium 4.4, BUN 19, serum creatinine 1.3, lactate 2.3, repeat 1.5, troponin negative, proBNP 5060, WBC 7.3, hemoglobin 12.5, platelets 126 -Current cardiac medications include Eliquis 5 mg twice a day, torsemide 20 mg daily, metoprolol titrate 25 mg 3 times a day, atorvastatin 20 mg nightly, aspirin 81 mg daily -01/2020 underwent a Lexiscan stress test that was negative for reversible cardiac ischemia. 10/17 Patient seen and examined. Patient was started on Lasix 20 mg IV twice a day however denies much change in his urine output. Creatinine 1.1 today with a BUN of 28. ProBNP elevated on admission at 5000. States breathing slowly improving. 10/18 In Senior examined. Patient denies any chest pain or pressure. States is s lowly feeling better. States he has been standing up without any lightheadedness. 10/19/2021 Patient examined this morning at the bedside. Patient denies chest pain or pressure. Denies SOB. Preliminary echo reveals EF 50-55%. Vital signs are stable. PHYSICAL EXAM: VITAL SIGNS: Reviewed. GENERAL: Well-developed in no acute distress. NECK: Supple. No JVD or thyromegaly LUNGS: Respirations even and unlabored. Lungs diminished with some expiratory wheezing noted. HEART: Irregular rate and rhythm. S1 and S2 heard. Systolic murmur noted. EXTREMITIES: Normal range of motion. No clubbing or cyanosis. Peripheral pulses intact. No lower extremity edema ASSESSMENT: COPD Exacerbation Acute on chronic heart failure with preserved ejection fraction Coronary artery disease s/p PCI to proximal LAD 2016 Permanent atrial fibrillation on eliquis Valvular heart disease s/p bioprostheic aortic valve replacement Hypertension Dyslipidemia COPD Chronic nicotine dependence PLAN: Continue current cardiac medications Patient stable for discharge from a cardiac standpoint We will sign off. Please reconsult if needed. Nurse practitioner note has been reviewed by physician. Signing provider agrees with the documented findings, assessment, and plan of care. Objective - Vital Signs Vital signs: Vital Signs Temp 97.6 F 10/19/21 08:00 Pulse 64 10/19/21 11:40 Resp 18 10/19/21 08:00 BP 123/61 10/19/21 08:00 Pulse Ox 96 10/19/21 08:02 Intake & Output 10/18/21 10/19/21 10/19/21 18:59 06:59 18:59 Intake Total 236 118 Balance 236 118 Weight 82.9 kg Intake: Oral 236 118 Other: Voiding Method Urinal Toilet Urinal # Voids 2 - Labs CBC & Chem 7: 10/19/21 06:54 10/19/21 06:54 Labs: Abnormal Lab Results - Last 24 Hours (Table) 10/18/21 10/18/21 10/18/21 Range/Units 12:37 12:37 16:51 WBC 10.9 H (3.8-10.6) k/uL RBC (4.30-5.90) m/uL Hgb (13.0-17.5) gm/dL Plt Count (150-450) k/uL Neutrophils # 10.0 H (1.3-7.7) k/uL Lymphocytes # 0.5 L (1.0-4.8) k/uL Chloride 94 L (98-107) mmol/L Carbon Dioxide 39 H (22-30) mmol/L BUN 37 H (9-20) mg/dL Glucose 205 H (74-99) mg/dL POC Glucose (mg/dL) 158 H (75-99) mg/dL 10/18/21 10/19/21 10/19/21 Range/Units 19:44 06:04 06:54 WBC (3.8-10.6) k/uL RBC 4.13 L (4.30-5.90) m/uL Hgb 12.6 L (13.0-17.5) gm/dL Plt Count 131 L (150-450) k/uL Neutrophils # (1.3-7.7) k/uL Lymphocytes # 0.4 L (1.0-4.8) k/uL Chloride (98-107) mmol/L Carbon Dioxide (22-30) mmol/L BUN (9-20) mg/dL Glucose (74-99) mg/dL POC Glucose (mg/dL) 177 H 177 H (75-99) mg/dL 10/19/21 10/19/21 Range/Units 06:54 11:45 WBC (3.8-10.6) k/uL RBC (4.30-5.90) m/uL Hgb (13.0-17.5) gm/dL Plt Count (150-450) k/uL Neutrophils # (1.3-7.7) k/uL Lymphocytes # (1.0-4.8) k/uL Chloride 94 L (98-107) mmol/L Carbon Dioxide 40 H (22-30) mmol/L BUN 39 H (9-20) mg/dL Glucose 160 H (74-99) mg/dL POC Glucose (mg/dL) 131 H (75-99) mg/dL
[2021-10-19 13:08] VITALS: BP 108/57
[2021-10-19 15:23] VITALS: PULSE 67
[2021-10-19 16:21] LABS: Glucose,Whole Blood 161 mg/dL (75-99)
--- NOTE | 2021-10-19 16:52 | P.PN ---
Subjective Progress Note Date: 10/19/21 Principal diagnosis: Acute exacerbation of COPD 71-year-old male patient, presented yesterday to the emergency department because of worsening shortness of breath. The patient is known to have severe COPD with an FEV1 of 40% of predicted. He has a extensive comorbid conditions including history of coronary artery disease with previous history of a stable aortic dissection, chronic atrial fibrillation, hypertension, hyperlipidemia, aortic valve replacement there was none [facility] and the patient has a bioprosthetic aortic valve, history of prostate cancer, history of a right lower extremity DVT, and chronic liver disease related to alcoholism. The patient came in yesterday to [facility] because of worsening shortness of breath. Apparently after quit smoking, is back smoking about 1 pack of cigarettes a day. He had increased dyspnea cough chest tightness and wheezing. No pleurisy. No hemoptysis. No chest pain. He has already demented on long-term and to coagulation with Eliquis. In the emergency department, the patient was quite hypoxic with a pulse ox of 70% on room air. Initially he was placed on a nonrebreather and later on he was transitioned to BiPAP for respiratory support. After being briefly on BiPAP, the patient was taken off t he BiPAP and switched back to nasal cannula. He was given bronchodilators. He was given steroids. Chest x-ray showed some mild four-vessel congestion. CT angiogram showed no evidence of any pulmonary embolism. The patient has a stable dissection of the descending aorta and the pleural effusion and chronic liver disease/cirrhosis. His most recent echocardiogram from September 2020 showed a 40-45% and normally functioning bioprosthetic aortic valve . The blood gases were reviewed and the patient had a chronic compensated hypercapnic respiratory failure with a pH of 7.38 and a pCO2 of 60. Nevertheless the patient was hypoxic with a pO2 was 59 and this was done and FiO2 of 32%. The patient went on a BiPAP had a pH of 7.38 with a pCO2 of 59 and pO2 of 116 and this was on FiO2 of 50%. His current COVID 19 testing is negative. Influenza A and B screen are negative. RSV by PCR was also negative. ProBNP level was 5000. Troponin was at 0.02. Lactic acid level was at 1.9. [place] was a 7.3. The patient this afternoon is sitting up on a chair, comfortable. Tolerating his diet. No nausea no vomiting. He shortness of breath improved considerably and the patient is currently on 4 L O2 nasal cannula On 10/17/2021, the patient is feeling better. The patient is less short of b reath compared to yesterday. No chest pain. No cough or sputum production or chest that is so wheezing. The patient is awake and alert. No altered mentation. The patient remains on bronchodilators. He remains on systemic steroids and IV Solu-Medrol. As mentioned earlier, COVID19 testing has been negative. Labs from today shows a mean of 22, creatinine of 1.1, sodium is at 138. There is a BiPAP at the bedside. The patient has not utilizes BiPAP overnight. The patient is currently on IV Solu-Medrol, DuoNeb nebulized treatment [id number], and to coagulation with Eliquis 5 mg by mouth twice a day and the rest of the home medications have been ordered resume. He is also being gently diurese with IV Lasix 20 mg IV push every 12 hours. 10/18/2021, I'm seeing the patient for a follow-up. Doing well. Less short of breath. Continues to improve. Remains on bronchodilators. He remains on IV Solu-Medrol. Remains on Lasix 20 mg of push every 12 hours. The patient's overall fluid balance has been negative and the patient has a white cell count of 10.9 with hemoglobin 13.4. Gait is a 37 with a creatinine of 1.2 and sodium level is at 139 with a potassium level of 4.2. Family is at the bedside. The patient denies having any chest pain. He is on antibiotics and the patient is currently on Zithromax. A repeat chest x-ray will be obtained for tomorrow. Remains on bronchodilators. Remains on long-term medical condition with Eliquis. He is on O2 at 3 L with a pulse ox of 93%. Reevaluated today , patient remains on bronchodilators, feeling better breathing a lot easier, hardly any cough no wheezing no shortness of breath, son is at bedside, and I explained to the son that his pulmonary status is improving, and we will consider discharge planning in the next 24 hours. CBC is relatively normal electrolytes are normal renal profile is normal, remains on anticoagulation therapy, he is on Symbicort, Lasix orally, DuoNeb updrafts, and methylprednisolone which I will transition to prednisone in the next 24 hours upon discharge. Objective - Vital Signs Vital signs: Vital Signs Temp 97.6 F 10/19/21 08:00 Pulse 67 10/19/21 15:32 Resp 18 10/19/21 13:08 BP 108/57 10/19/21 12:00 Pulse Ox 98 10/19/21 12:00 Intake & Output 10/18/21 10/19/21 10/19/21 18:59 06:59 18:59 Intake Total 236 236 Balance 236 236 Weight 82.9 kg Intake: Oral 236 236 Other: Voiding Method Urinal Toilet Urinal # Voids 2 - Exam Physical Exam: Revealed 71-year-old white male in no distress, on 2 L nasal c annula. Head: Atraumatic, normocephalic. HEENT:[Neck is supple.] [No neck masses.] [No thyromegaly.] [No JVD.] Chest: [Diminished breath sounds at the bases no crackles or rhonchi or wheezes. Cardiac Exam: [Normal S1 and S2, no S3 gallop, no murmur.] Abdomen: [Soft, nontender, no megaly, no rebound, no guarding, normal bowel sounds.] Extremities: [No clubbing, no edema, no cyanosis.] Neurological Exam: [No focal neurologic deficit.] Alert oriented 3. Psychiatric: Normal mood affect and normal mental status examination. Skin: No rashes - Labs CBC & Chem 7: 10/19/21 06:54 10/19/21 06:54 Labs: Abnormal Lab Results - Last 24 Hours (Table) 10/18/21 10/18/21 10/19/21 Range/Units 16:51 19:44 06:04 RBC (4.30-5.90) m/uL Hgb (13.0-17.5) gm/dL Plt Count (150-450) k/uL Lymphocytes # (1.0-4.8) k/uL Chloride (98-107) mmol/L Carbon Dioxide (22-30) mmol/L BUN (9-20) mg/dL Glucose (74-99) mg/dL POC Glucose (mg/dL) 158 H 177 H 177 H (75-99) mg/dL 10/19/21 10/19/21 10/19/21 Range/Units 06:54 06:54 11:45 RBC 4.13 L (4.30-5.90) m/uL Hgb 12.6 L (13.0-17.5) gm/dL Plt Count 131 L (150-450) k/uL Lymphocytes # 0.4 L (1.0-4.8) k/uL Chloride 94 L (98-107) mmol/L Carbon Dioxide 40 H (22-30) mmol/L BUN 39 H (9-20) mg/dL Glucose 160 H (74-99) mg/dL POC Glucose (mg/dL) 131 H (75-99) mg/dL 10/19/21 Range/Units 16:20 RBC (4.30-5.90) m/uL Hgb (13.0-17.5) gm/dL Plt Count (150-450) k/uL Lymphocytes # (1.0-4.8) k/uL Chloride (98-107) mmol/L Carbon Dioxide (22-30) mmol/L BUN (9-20) mg/dL Glucose (74-99) mg/dL POC Glucose (mg/dL) 161 H (75-99) mg/dL Assessment and Plan Assessment: Impression: Acute on chronic hypoxic respiratory failure Acute exacerbation of COPD Severe COPD, FEV1 is normally 40%. Coronary artery disease and previous coronary intervention/stenting History of aortic valve replacement patient has a bioprosthetic aortic valve Chronic atrial fibrillation Benign essential hypertension Dyslipidemia Moderate severe pulmonary hypertension History of prostate cancer and previous prostatectomy History of liver cirrhosis History of GI bleeding History of chronic aortic dissection Macular degeneration History of right lower extremity DVT Anterior abdominal wall hernia Recommendation: Continue present supportive care measures Continue bronchodilators Consider discharge planning in the next 24 hours. Follow-up on outpatient basis with Dr. Orellana Will change methylprednisolone to prednisone in a.m. All his meds were reviewed Discussed his condition and status with the patient and with his son at bedside Time with Patient: Less than 30
--- NOTE | 2021-10-20 15:00 | ECHOF ---
Referral Reason:shortness of breath MEASUREMENTS -------- HEIGHT: 175.3 cm WEIGHT: 81.6 kg BP: 115/54 RVIDd: 4.1 cm (< 3.3) IVSd: 1.3 cm (0.6 - 1.1) LVIDd: 5.5 cm (3.9 - 5.3) LVPWd: 1.4 cm (0.6 - 1.1) IVSs: 2.1 cm LVIDs: 3.6 cm LVPWs: 2.2 cm LA Diam: 4.8 cm (2.7 - 3.8) LAESV Index (A-L): 66.65 ml/m Ao Diam: 4.0 cm (2.0 - 3.7) MV EXCURSION: 25.076 mm (> 18.000) MV EF SLOPE: 102 mm/s (70 - 150) EPSS: 0.8 cm AV maxP.74 mmHg AV meanP.65 mmHg RAP: 5.00 mmHg RVSP: 39.79 mmHg FINDINGS -------- Atrial fibrillation. This was a technically adequate study. The left ventricular size is normal. There is moderate concentric left ventricular hypertrophy. O verall left ventricular systolic function is low-normal with, an EF between 50 - 55 %. Basal inferi or LV wall motion is hypokinetic. Basal inferoseptal LV wall motion is hypokinetic. Mid inferio r LV wall motion is hypokinetic. The right ventricle is moderately enlarged. LA is severely dilated >40 ml/m2 The right atrium is normal in size. Interatrial and interventricular septum intact. Peak/mean gradient across the Aortic Valve is 19.74mmHg / 9.65mmHg. Normally functioning bioprosthe tic valve. The mitral valve leaflets are mildly thickened. Mild mitral annular calcification present. Mild m itral regurgitation is present. Mild tricuspid regurgitation present. There is mild pulmonary hypertension. The right ventricular systolic pressure, as measured by Doppler, is 39.79mmHg. The pulmonic valve is normal. The aortic root is dilated measuring 4.0cm. Normal inferior vena cava with normal inspiratory collapse consistent with estimated right atrial pre ssure of 5 mmHg. There is no pericardial effusion. CONCLUSIONS -------- 1. The left ventricular size is normal. 2. There is moderate concentric left ventricular hypertrophy. 3. Overall left ventricular systolic function is low-normal with, an EF between 50 - 55 %. 4. Basal inferior LV wall motion is hypokinetic. 5. Basal inferoseptal LV wall motion is hypokinetic. 6. Mid inferior LV wall motion is hypokinetic. 7. The right ventricle is moderately enlarged. 8. LA is severely dilated >40 ml/m2 9. Peak/mean gradient across the Aortic Valve is 19.74mmHg / 9.65mmHg. 10. Normally functioning bioprosthetic valve. 11. The mitral valve leaflets are mildly thickened. 12. Mild mitral annular calcification present. 13. Mild mitral regurgitation is present. 14. Mild tricuspid regurgitation present. 15. There is mild pulmonary hypertension. 16. The right ventricular systolic pressure, as measured by Doppler, is 39.79mmHg. 17. The aortic root is dilated measuring 4.0cm. 18. There is no pericardial effusion. MODELING INSTRUCTOR: Sheryl Carrintgon RDCS
--- NOTE | 2021-10-20 21:36 | P.DS ---
Providers Date of admission: 10/15/21 19:42 Attending physician: Fred Desir Consults: 10/15/21 18:52 Consult Physician Routine Consulting Provider: Federico Orellana Consult Reason/Comments: hypoxic respiratory failure Do you want consulting provider notified?: Already Contacted Primary care physician: [facility] Hospital Course: Final Diagnosis Acute COPD exacerbation Acute chronic CHF with preserved ejection fraction Acute hypoxemic respiratory failure related to COPD/CHF exacerbation; patient remains on O2 per nasal cannula Mild renal injury Elevated D-Dimer CTA negative for PE Chronic stable aortic dissection Hypertension Hyperlipidemia Hypothyroidism Chronic atrial fibrillation History of daily alochol use with liver cirrhosis, currently not drinking Remote history of daily tobacco use Coronary artery disease status post CABG Discharge Disposition Hospital course This is a pleasant 71 year old male who presents to the with complaints of shortness of breath with associated cough. Patient also fell one week ago per son. Patient follows with the [facility]. Chronic conditions include, chronic atrial fibrillation/flutter on eliquis, heart failure, COPD, CVA, DVT, hypertension, hyperlipidemia, stable dissection of ascending aorta, chronic hypoxic respiratory failure with home O2, prostate cancer status post prostatectomy, lower GIB, liver cirrhosis for history of alcohol , coronoary artery disease status post CABG, aortic valve replacement, and history of daily alcohol abuse which he quit in 2019. Patient recently tried to quit smoking, however picked it back up. Per medical history in the past was a 1 pack per day smoker, counseled extensively on smoking cessation. Patient is maintained on wixela inhaler outpatient. Chest xray on admission shows pulmonary venous congestion with no overt failure. Head/Cervical spine CT on admission shows mild multilevel degenerative changes, remote left parietal/posterior front injury with encephalomalacia; with no acute intracranial process, no evidence for cervical spine fracture. Chest CTA neagative for PE, there is additional aortic dissection to the right of the origin of celiac access, dilated pulmonary trunk can be seen in setting of pulmonary hypertension, upper anterior abdominal wall hernia containing loops of colon, hepatic cirrhosis. Echocardiogram shows an EF of 50-55% with hypokinesis of basal inferior LV, inferoseptal LV, mild inferior LV, left atrium severely dilated, mild mitral regurg, mild tricuspid regurg, mild pulmonary hypertension. Labs on admission; WBC 7.3, hgb 12.5, INR 1.2, DD 3.99, sodium 138, potassium 4.4, chloride 96, CO2 37, creatinine 1.32, glucose in the 150's, calcium 8.3, magnesium 1.9, BNP 5060, troponin 0.020. Influenza A/B, RSV, Covid NEGATIVE Patient admitted to the hospital with consults placed to cardiology and pulmonary services. Treated inpatient with IV steroids, updrafts for an acute COPD exacberbation. Patient was also treated with IV lasix while inpatient. Ho me medication of demadex was switched to oral lasix on discharge. Patient was admitted requiring a bipap with 50% fio2, he was able to weaned to 2L NC. Patient was discharged on symbicort, duonebs and prednisone burst and taper. 10/19/2021 Patient evaluated today at beside with family present he is asking to go home. Denies any chest pain, chest pressure, cough or shortness of breath today. Pend ing clearance from pulmonary patient will be discharged home on oral prednisone burst and taper and will continue updrafts as symbicort as in the hospital setting. Lungs show increased aeration, S1 S2 auscultated. Denies nausea, vomiting, diarrhea. No wheezing noted on exam. [facility] and [facility] 2-3 L as needed. Counseled on smoking cessation. Patient is afebrile, in atrial fibrillation rate controlled at 67, blood pressure 108/57, 98% on 2L NC. Most recent labs show WBC of 8.1, hgb 12.6, sodium 137, potassium 4.4, chloride 94, CO2 40, BUN 39, creatinine 1.09, blood glucose 160, which should improve with steroid tapering. Please see medication reconciliation for a list of current medication. Thank you for allowing us to participate in the care of this patient. Patient Condition at Discharge: Fair Plan - Discharge Summary Discharge Rx Participant: Yes New Discharge Prescriptions: New Ipratropium-Albuterol Nebulize [Duoneb 0.5 mg-3 mg/3 ml Soln] 3 ml INHALATION RT-QID #20 dose Furosemide [Lasix] 40 mg PO DAILY #30 tab predniSONE 0 mg PO DIRECTED 8 Days #26 tab Metoprolol Tartrate [Lopressor] 25 mg PO BID #60 tab Budesonide-Formot 160-4.5 Mcg [Symbicort 160-4.5 Mcg Inhaler] 2 puff INHALATION RT-BID #1 dispenser Continue Levothyroxine Sodium [Euthyrox] 50 mcg PO DAILY Apixaban [Eliquis] 5 mg PO BID Thiamine [Vitamin B-1] 100 mg PO DAILY Aspirin EC [Ecotrin Low Dose] 81 mg PO DAILY Lidocaine 4% Cream [Lmx 4] 1 applic TOPICAL DAILY Vit C/E/Zn/Coppr/Lutein/Zeaxan [Preservision Areds 2 Softgel] 1 cap PO DAILY Pantoprazole Sodium 40 mg PO AC-BRKFST Mirtazapine [Remeron] 15 mg PO HS Escitalopram Oxalate [Lexapro] 20 mg PO DAILY Fluticasone Propion/Salmeterol [Wixela 250-50 Inhub] 1 puff INHALATION RT-BID Atorvastatin [Lipitor] 20 mg PO HS Discontinued Metoprolol Tartrate 25 mg PO TID Torsemide [Demadex] 20 mg PO DAILY Discharge Medication List Apixaban [Eliquis] 5 mg PO BID 08/04/20 [History] Levothyroxine Sodium [Euthyrox] 50 mcg PO DAILY 08/04/20 [History] Aspirin EC [Ecotrin Low Dose] 81 mg PO DAILY 12/24/20 [History] Mirtazapine [Remeron] 15 mg PO HS 12/24/20 [History] Pantoprazole Sodium 40 mg PO AC-BRKFST 12/24/20 [History] Thiamine [Vitamin B-1] 100 mg PO DAILY 12/24/20 [History] Vit C/E/Zn/Coppr/Lutein/Zeaxan [Preservision Areds 2 Softgel] 1 cap PO DAILY 12/24/20 [History] Atorvastatin [Lipitor] 20 mg PO HS 10/15/21 [History] Escitalopram Oxalate [Lexapro] 20 mg PO DAILY 10/15/21 [History] Fluticasone Propion/Salmeterol [Wixela 250-50 Inhub] 1 puff INHALATION RT-BID 10/15/21 [History] Lidocaine 4% Cream [Lmx 4] 1 applic TOPICAL DAILY 10/15/21 [History] Budesonide-Formot 160-4.5 Mcg [Symbicort 160-4.5 Mcg Inhaler] 2 puff INHALATION RT-BID #1 dispenser 10/19/21 [Rx] Furosemide [Lasix] 40 mg PO DAILY #30 tab 10/19/21 [Rx] Ipratropium-Albuterol Nebulize [Duoneb 0.5 mg-3 mg/3 ml Soln] 3 ml INHALATION RT-QID #20 dose 10/19/21 [Rx] Metoprolol Tartrate [Lopressor] 25 mg PO BID #60 tab 10/19/21 [Rx] predniSONE 0 mg PO DIRECTED 8 Days #26 tab 10/19/21 [Rx] Follow up Appointment(s)/Referral(s): Clement Talamantes DO [STAFF PHYSICIAN] - 1 Week (Please call to set up a follow- up appointment) Federico Orellana MD [STAFF PHYSICIAN] - 1 Week (Please call to set a follow-up appointment.) [facility],Clinic [Primary Care Provider] - 1-2 days (Please call to set a follow- up appointment.) Ambulatory/Diagnostic Orders: Basic Metabolic Panel [LAB.AMB] Time Frame: 2 Days, Location: None Selected Discharge Disposition: HOME WITH HOME HEALTH SERVICES
== END 2021-10-19 17:52 | disposition home health service (06) | DRG 190 ==
LOC: EC 15:14 → 3SCARD 19:42
PROVIDERS: ADMIT Hospitalist; ATTEND Hospitalist
PROC: 5A09357 Assistance with Respiratory Ventilation, Less than 24 Consecutive Hours, Continuous Positive Airway Pressure (ICD-10-PCS; principal; 2021-10-15)
DX: J44.1 Chronic obstructive pulmonary disease with (acute) exacerbation (principal); J96.21 Acute and chronic respiratory failure with hypoxia; J96.22 Acute and chronic respiratory failure with hypercapnia; I50.33 Acute on chronic diastolic (congestive) heart failure; I71.01 Dissection of thoracic aorta; I48.92 Unspecified atrial flutter; I48.21 Permanent atrial fibrillation; E87.2 Acidosis; Z20.822 Contact with and (suspected) exposure to COVID-19; I11.0 Hypertensive heart disease with heart failure; I25.10 Atherosclerotic heart disease of native coronary artery without angina pectoris; I27.20 Pulmonary hypertension, unspecified; I25.2 Old myocardial infarction; H35.30 Unspecified macular degeneration; F03.90 Unspecified dementia, unspecified severity, without behavioral disturbance, psychotic disturbance, mood disturbance, and anxiety; K70.9 Alcoholic liver disease, unspecified; K70.30 Alcoholic cirrhosis of liver without ascites; K72.10 Chronic hepatic failure without coma; E78.5 Hyperlipidemia, unspecified; E03.9 Hypothyroidism, unspecified; F17.210 Nicotine dependence, cigarettes, uncomplicated; K43.9 Ventral hernia without obstruction or gangrene; I08.1 Rheumatic disorders of both mitral and tricuspid valves; H91.90 Unspecified hearing loss, unspecified ear; Z79.01 Long term (current) use of anticoagulants; Z79.82 Long term (current) use of aspirin; Z79.890 Hormone replacement therapy; Z79.899 Other long term (current) drug therapy; Z82.49 Family history of ischemic heart disease and other diseases of the circulatory system; Z83.3 Family history of diabetes mellitus; Z85.46 Personal history of malignant neoplasm of prostate; Z86.718 Personal history of other venous thrombosis and embolism; Z86.73 Personal history of transient ischemic attack (TIA), and cerebral infarction without residual deficits; Z87.01 Personal history of pneumonia (recurrent); Z90.79 Acquired absence of other genital organ(s); Z95.1 Presence of aortocoronary bypass graft; Z95.3 Presence of xenogenic heart valve; Z95.5 Presence of coronary angioplasty implant and graft; Z90.49 Acquired absence of other specified parts of digestive tract; Z86.59 Personal history of other mental and behavioral disorders; Z88.8 Allergy status to other drugs, medicaments and biological substances
CPT/HCPCS: 36415; 36600; 70450; 71045; 71275; 72125; 80048; 80053; 82805; 83605; 83735; 83880; 84484; 85025; 85379; 85610; 85730; 87636; 93005; 93306; 94640; 94644; 94660; 94760; 96374; 99291

== ENCOUNTER 2022-02-20 00:58 | Inpatient (IN) | payer OTHER, MEDICARE, BC ==
[2022-02-20] MEDS ORDERED: MORPHINE SULFATE 4 MG/ML SYRINGE IV STA (02:17)
[2022-02-20 03:43] LABS: Basophils # (A) 0.1 k/uL (0-0.2); Basophils % (A) 1 %; Eosinophils # (A) 0.1 k/uL (0-0.7); Eosinophils % (A) 2 %; HCT 34.5 % (39.0-53.0); HGB 10.4 gm/dL (13.0-17.5); Hypochromasia Marked; Lymphocytes # (A) 1.3 k/uL (1.0-4.8); Lymphocytes % (A) 21 %; MCH 28.4 pg (25.0-35.0); MCV 94.4 fL (80.0-100.0); Mean Platelet Volume 8.8; Monocytes # (A) 0.5 k/uL (0-1.0); Monocytes % (A) 8 %; Neutrophils # (A) 4.1 k/uL (1.3-7.7); Neutrophils % (A) 67 %; Platelet Count 108 k/uL (150-450); RBC 3.65 m/uL (4.30-5.90); RDW 13.7 % (11.5-15.5); WBC 6.1 k/uL (3.8-10.6)
--- NOTE | 2022-02-20 03:57 | XR ---
EXAMINATION TYPE: XR chest 1V portable DATE OF EXAM: 02/20/2022 COMPARISON: 02/19/2022 HISTORY: Short of breath TECHNIQUE: Single view FINDINGS: Heart is enlarged. There is pulmonary vascular congestion. There is blunting of the costoph renic angles. There are chest leads. There are sternal wires. IMPRESSION: There is some congestive heart failure with increased congestion and pleural fluid compar ed to yesterday.
[2022-02-20 04:07] LABS: Calcium 7.7 mg/dL (8.4-10.2)
--- NOTE | 2022-02-20 04:23 | ED ---
Fall HPI - General Chief Complaint: Fall Stated Complaint: fall Time Seen by Provider: 02/20/22 02:17 Source: EMS Mode of arrival: EMS - History of Present Illness Initial Comments: This patient is 71-year-old man transferred here from other hospital where he had gone to after he had a fall. The patient had been standing in his kitchen sink turned, lost his balance and fell. He sustained a laceration to the left parietal area of his scalp. The patient had gone to [facility], where he was seen and had evaluation. While he was there he had labs that did show a troponin of 0.46, and he was transferred here to have cardiology evaluation. When I see the patient, he denies chest pain. He states he is having some residual pain to the left side of his head. The patient did have computed tomography scan of the brain which was negative for trauma per the report I was given. He also had studies that showed a T1 lumbar compression fracture. Patient not currently complaining of much in way of back pain. No weakness or numbness of the extremities. MD Complaint: fall -: hour(s) Fall From: standing When Fall Occurred: 4-6 hours [employer] Fall Witnessed: yes, by family Place Fall Occurred: home Loss of Consciousness: none Prolonged Down Time?: unclear Severity: moderate Quality: dull Context: tripped/slipped - Related Data Home Medications Medication Instructions Recorded Confirmed Apixaban [Eliquis] 5 mg PO BID 08/04/20 11/03/21 Levothyroxine Sodium [Euthyrox] 50 mcg PO DAILY 08/04/20 11/03/21 Aspirin EC [Ecotrin Low Dose] 81 mg PO DAILY 12/24/20 11/03/21 Mirtazapine [Remeron] 15 mg PO HS 12/24/20 11/03/21 Pantoprazole Sodium 40 mg PO AC-BRKFST 12/24/20 11/03/21 Thiamine [Vitamin B-1] 100 mg PO DAILY 12/24/20 11/03/21 Vit C/E/Zn/Coppr/Lutein/Zeaxan 1 cap PO DAILY 12/24/20 11/03/21 [Preservision Areds 2 Softgel] Atorvastatin [Lipitor] 20 mg PO HS 10/15/21 11/03/21 Escitalopram Oxalate [Lexapro] 20 mg PO DAILY 10/15/21 11/03/21 Fluticasone Propion/Salmeterol 1 puff INHALATION RT-BID 10/15/21 11/03/21 [Wixela 250-50 Inhub] Lidocaine 4% Cream [Lmx 4] 1 applic TOPICAL DAILY 10/15/21 11/03/21 Metoprolol Tartrate [Lopressor] 12.5 mg PO BID 11/03/21 11/03/21 Previous Rx's Medication Instructions Recorded Budesonide-Formot 160-4.5 Mcg 2 puff INHALATION RT-BID #1 10/19/21 [Symbicort 160-4.5 Mcg Inhaler] dispenser Ipratropium-Albuterol Nebulize 3 ml INHALATION RT-QID #20 dose 10/19/21 [Duoneb 0.5 mg-3 mg/3 ml Soln] Cefdinir [Omnicef] 300 mg PO BID 5 Days #10 cap 11/04/21 Furosemide [Lasix] 20 mg PO DAILY #30 tablet 11/04/21 predniSONE [Deltasone] 40 mg PO DAILY 5 Days #10 tab 11/04/21 Allergies Allergy/AdvReac Type Severity Reaction Status Date / Time primidone Allergy Rash/Hives Verified 11/03/21 10:14 gabapentin AdvReac DIZZINESS Verified 11/03/21 10:14 Review of Systems ROS Statement: Those systems with pertinent positive or pertinent negative responses have been documented in the HPI. ROS Other: All systems not noted in ROS Statement are negative. Constitutional: Denies: fever Respiratory: Denies: cough, dyspnea Cardiovascular: Denies: chest pain, palpitations, edema Gastrointestinal: Denies: abdominal pain, vomiting, diarrhea Genitourinary: Denies: dysuria Musculoskeletal: Reports: back pain Skin: Denies: rash Neurological: Denies: headache, weakness, numbness Past Medical History Past Medical History: Atrial Fibrillation, Atrial Flutter, Coronary Artery Disease (CAD), Cancer, Chest Pain / Angina, Heart Failure, COPD, CVA/TIA, Deep Vein Thrombosis (DVT), Eye Disorder, GERD/Reflux, GI Bleed, Hearing Disorder / Deafness, Hyperlipidemia, Hypertension, Liver Disease, Memory Impairment, Pneu monia, Vascular Disorder Additional Past Medical History / Comment(s): Stable dissection of the descending aorta, chronic atrial fibrillation and is anticoagulated with warfar in, aortic valve replacement with a bioprosthetic valve, pulmonary hypertension, chronic hypoxic respiratory failure with home O2 at , previous pneumonia 2008 and 2015, prostate cancer with prostatectomy, DVT R lower leg x2, macular degeneration L eye, left arm fracture, chronic tinnitus in both ears, gastritis, lower GIm bleed, UTI, liver cirrhosis related to history of alcoholism, hepatitis C at age 14yrs., feeding tube, alcoholism Last Myocardial Infarction Date:: unsure History of Any Multi-Drug Resistant Organisms: None Reported Date of last positivie culture/infection: None MDRO Source:: None Past Surgical History: Cardiac Valve Replacement, Cholecystectomy, Coronary Bypass/CABG, Heart Catheterization, Heart Catheterization With Stent, Hernia Repair, Orthopedic Surgery, Prostate Surgery Additional Past Surgical History / Comment(s): Aortic valve replacement, prostatectomy, right inguinal hernia repair 2, bilateral knee arthroscopy, colonoscopy/polypectomy, EGD, right leg varicose vein stripping, removal of a blood clot from the right lower extremity, cervical surgery d/t injury in [place] and removal of shrapnel's from the right shoulder, feeding tube Past Anesthesia/Blood Transfusion Reactions: No Reported Reaction Date of Last Stent Placement:: 2016 Past Psychological History: No Psychological Hx Reported Smoking Status: Former smoker Past Alcohol Use History: None Reported Past Drug Use History: None Reported - Past Family History Mother Family Medical History: Diabetes Mellitus Additional Family Medical History / Comment(s): Mother at age 74 from diabetic complications. Father Family Medical History: Congestive Heart Failure (CHF) Additional Family Medical History / Comment(s): Father at age 91 yrs. General Exam Limitations: no limitations General appearance: alert, in no apparent distress Head exam: Present: atraumatic, normocephalic Eye exam: Present: normal appearance. Absent: scleral icterus, conjunctival injection Neck exam: Present: normal inspection Respiratory exam: Present: rhonchi. Absent: respiratory distress, wheezes, rales, stridor, accessory muscle use Cardiovascular Exam: Present: regular rate, normal rhythm, systolic murmur. Absent: diastolic murmur, rubs, gallop GI/Abdominal exam: Present: soft. Absent: distended, tenderness, guarding, rebound, rigid, mass Extremities exam: Present: normal inspection, normal capillary refill. Absent: pedal edema, calf tenderness Back exam: Present: normal inspection. Absent: CVA tenderness (R), CVA tenderness (L) Neurological exam: Present: alert Skin exam: Present: warm, dry, intact, normal color. Absent: rash Course Vital Signs 02/20/22 02/20/22 02/20/22 01:07 03:39 05:00 Temperature 97.7 F Pulse Rate 69 69 82 Respiratory 16 17 22 Rate Blood Pressure 126/55 150/77 O2 Sat by Pulse 94 L 96 84 L Oximetry Fraction of Inspired Oxygen (FIO2) 02/20/22 02/20/22 02/20/22 05:19 06:10 06:57 Temperature Pulse Rate 61 61 Respiratory 16 19 Rate Blood Pressure 133/61 123/61 O2 Sat by Pulse 100 99 Oximetry Fraction of 80 Inspired Oxygen (FIO2) 02/20/22 07:17 Temperature Pulse Rate 56 L Respiratory 18 Rate Blood Pressure O2 Sat by Pulse 100 Oximetry Fraction of Inspired Oxygen (FIO2) Medical Decision Making - Lab Data Result diagrams: 02/20/22 03:23 02/20/22 03:23 Lab Results 02/20/22 02/20/22 02/20/22 Range/Units 03:23 03:23 03:23 WBC 6.1 (3.8-10.6) k/uL RBC 3.65 L (4.30-5.90) m/uL Hgb 10.4 L (13.0-17.5) gm/dL Hct 34.5 L (39.0-53.0) % MCV 94.4 (80.0-100.0) fL MCH 28.4 (25.0-35.0) pg MCHC 30.0 L (31.0-37.0) g/dL RDW 13.7 (11.5-15.5) % Plt Count 108 L (150-450) k/uL MPV 8.8 Neutrophils % 67 % Lymphocytes % 21 % Monocytes % 8 % Eosinophils % 2 % Basophils % 1 % Neutrophils # 4.1 (1.3-7.7) k/uL Lymphocytes # 1.3 (1.0-4.8) k/uL Monocytes # 0.5 (0-1.0) k/uL Eosinophils # 0.1 (0-0.7) k/uL Basophils # 0.1 (0-0.2) k/uL Hypochromasia Marked Sodium 140 (137-145) mmol/L Potassium 4.0 (3.5-5.1) mmol/L Chloride 102 (98-107) mmol/L Carbon Dioxide 36 H (22-30) mmol/L Anion Gap 2 mmol/L BUN 18 (9-20) mg/dL Creatinine 1.23 (0.66-1.25) mg/dL Est GFR (CKD-EPI)AfAm 67 (>60 ml/min/1.73 sqM) Est GFR (CKD-EPI)NonAf 58 (>60 ml/min/1.73 sqM) Glucose 104 H (74-99) mg/dL Calcium 7.7 L (8.4-10.2) mg/dL Troponin I 0.310 H* (0.000-0.034) ng/mL 02/20/22 Range/Units 05:21 WBC (3.8-10.6) k/uL RBC (4.30-5.90) m/uL Hgb (13.0-17.5) gm/dL Hct (39.0-53.0) % MCV (80.0-100.0) fL MCH (25.0-35.0) pg MCHC (31.0-37.0) g/dL RDW (11.5-15.5) % Plt Count (150-450) k/uL MPV Neutrophils % % Lymphocytes % % Monocytes % % Eosinophils % % Basophils % % Neutrophils # (1.3-7.7) k/uL Lymphocytes # (1.0-4.8) k/uL Monocytes # (0-1.0) k/uL Eosinophils # (0-0.7) k/uL Basophils # (0-0.2) k/uL Hypochromasia Sodium (137-145) mmol/L Potassium (3.5-5.1) mmol/L Chloride (98-107) mmol/L Carbon Dioxide (22-30) mmol/L Anion Gap mmol/L BUN (9-20) mg/dL Creatinine (0.66-1.25) mg/dL Est GFR (CKD-EPI)AfAm (>60 ml/min/1.73 sqM) Est GFR (CKD-EPI)NonAf (>60 ml/min/1.73 sqM) Glucose (74-99) mg/dL Calcium (8.4-10.2) mg/dL Troponin I 0.282 H* (0.000-0.034) ng/mL Disposition Clinical Impression: Congestive heart failure, Elevated troponin I level, Lumbar compression fracture Disposition: ADMITTED IP TO THIS HOSP Condition: Fair Is patient prescribed a controlled substance at d/c from ED?: No
[2022-02-20] MEDS ORDERED: NITROGLYCERIN OINT 1 INCH/GM PACKET TOPICAL STA (05:03)
[2022-02-20] MEDS: FUROSEMIDE 10 MG/ML 4 ML VIAL IV SCH ×2 (07:58→20:57)
[2022-02-20] MEDS ORDERED: NON FORMULARY DRUG (Fluticasone Propion/Salmeterol [Wixela 250-50 Inhub] 1 EACH Blst.W.Dev INHALATION SCH (08:00)
[2022-02-20] MEDS: PANTOPRAZOLE 40 MG TABLET PO SCH (08:03)
[2022-02-20] MEDS: APIXABAN 5 MG TAB PO SCH ×2 (08:05→20:58)
[2022-02-20] MEDS: METOPROLOL TARTRATE 12.5 MG TAB PO SCH ×2 (08:06→20:58)
[2022-02-20] MEDS: LEVOTHYROXINE 50 MCG TAB PO SCH (08:06)
[2022-02-20] MEDS: ESCITALOPRAM 20 MG TAB PO SCH (08:06)
[2022-02-20] MEDS: ASPIRIN 81 MG PO SCH (08:06)
[2022-02-20] MEDS: SYMBICORT 160-4.5 MCG INHALER INHALATION SCH ×2 (08:48→20:01)
[2022-02-20] MEDS: IPRATROPIUM-ALBUTEROL 3 ML NEB INHALATION SCH ×4 (08:48→20:01)
[2022-02-20] MEDS ORDERED: FUROSEMIDE 20 MG TAB PO SCH (09:00)
[2022-02-20 12:46] LABS: Glucose,Whole Blood 85 mg/dL (70-110)
[2022-02-20 13:02] VITALS: BMI 24.4
--- NOTE | 2022-02-20 14:30 | CONS ---
CONSULTATION CHIEF COMPLAINT: Elevated troponin. Mr. Duran is a 71-year-old gentleman with history of coronary artery disease, status post angioplasty of proximal LAD, hypertension, dyslipidemia, aortic valve replacement, permanent atrial fibrillation, COPD, who presented to one of the outside hospitals having had a fall and heladio on his head. There is no family at bedside and he has a history of confusion and we are trying to gather as much information as we can. I have been consulted because of mildly elevated troponin. The patient seems hypoxic and is requiring a BiPAP machine to maintain his O2 saturations. He is answering questions appropriately. The troponin elevation is of no clear clinical significance at this time. His EKG shows atrial fibrillation without any acute ST-T wave changes. The exact reason for his fall is unclear, and it is unclear if he had a syncopal event. The patient had aortic valve replacement, permanent atrial fibrillation, and has known CAD along with COPD. PAST MEDICAL HISTORY: Significant for coronary artery disease, status post angioplasty, COPD, hypertension, atrial fibrillation and aortic valve replacement. MEDICATIONS: Medications at home include Remeron, Protonix, Lopressor 12.5 b.i.d., levothyroxine, DuoNeb, Lasix, Lexapro, Symbicort, aspirin, Lipitor, Eliquis, lidocaine cream. ALLERGIES: PRIMIDONE AND GABAPENTIN. Family history, social history and review of systems I am unable to obtain from the patient. The patient has a BiPAP machine on and his O2 saturations are diminished. With the BiPAP on, his saturations are %. Heart rate is 80 beats per minute. Blood pressure is 132/90, respiratory rate is 18. Chest exam reveals diminished air entry bilaterally. I do not hear any crackles or rhonchi. Heart exam reveals first and second heart sounds, ejection systolic murmur in the aortic area. Abdomen is soft. Examination of extremities revealed mild edema. Peripheral pulses are felt. LABS: Labs show that his BUN is 18, creatinine is 1.2. Troponin is 0.3, 0.2 and 0.2, hemoglobin is 10.4. Potassium is 4. ASSESSMENT: 1. Elevated troponin of unclear clinical significance, status post fall, head injury. 2. Respiratory insufficiency. 3. Permanent atrial fibrillation. 4. History of aortic valve replacement. 5. History of coronary artery disease, status post angioplasty. PLAN: I will obtain a 2D echo to assess LV function, wall motion and the valve. Continue with the current supportive care and we will see how his symptoms and overall clinical situation evolve. ANETA / LUIS FELIPE: [id number] /
[2022-02-20] MEDS: HYDROcodone/APAP 5-325MG 1 EACH TAB PO PRN (16:27)
[2022-02-20] MEDS: ATORVASTATIN 20 MG TAB PO SCH (20:58)
--- NOTE | 2022-02-20 21:16 | P.HPIM ---
History of Present Illness H&P Date: 02/20/22 Chief Complaint: fall, Elevated troponin level. 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 Patient was kaela ding in his kitchen and while turning his balance and fell. He did have laceration to the left parietal area of his scalp. Patient was initially taken to [facility] where he had lab work-up done which showed elevated troponin level to 0.46 and was transferred to [facility] for cardiology evaluation. Patient denies any complaints of chest pain. No palpitations. No complaints of shortness of breath. Patient had CT scan of the brain done at outside hospital facility was negative for any acute bleed or acute process. Patient also had T1 lumbar compression fracture. No complaints of weakness or tingling sensation in the legs. No fever no chills. Denied any recent illnesses. Patient cannot provide much history at this time. Laboratory showed WBC 6.1 hemoglobin 10.4 and platelets 108 Sodium 140 potassium 4.0 chloride 102 bicarb is 36 BUN 18 and creatinine 1.23 and blood sugar is 104 Troponin 0.310, 0.282 and 0.285 proBNP 4200. Chest x-ray showed there is some congestive heart failure with increasing congestion and pleural fluid compared to yesterday. EKG showed atrial fibrillation. Right ventricle hypertrophy. Review of Systems Complete review of systems could not be assessed at this time. Past Medical History Past Medical History: Atrial Fibrillation, Atrial Flutter, Coronary Artery Dis ease (CAD), Cancer, Chest Pain / Angina, Heart Failure, COPD, CVA/TIA, Deep Vein Thrombosis (DVT), Eye Disorder, GERD/Reflux, GI Bleed, Hearing Disorder / Deafness, Hyperlipidemia, Hypertension, Liver Disease, Memory Impairment, Pneumonia, Vascular Disorder Additional Past Medical History / Comment(s): Stable dissection of the descending aorta, chronic atrial fibrillation and is anticoagulated with warfarin, aortic valve replacement with a bioprosthetic valve, pulmonary hypertension, chronic hypoxic respiratory failure with home O2 at HS, previous pneumonia 2008 and 2014, prostate cancer with prostatectomy, DVT R lower leg x2, macular degeneration L eye, left arm fracture, chronic tinnitus in both ears, gastritis, lower GIm bleed, UTI, liver cirrhosis related to history of alcoholism, hepatitis C at age 14yrs., feeding tube, alcoholism Last Myocardial Infarction Date:: unsure History of Any Multi-Drug Resistant Organisms: None Reported Date of last positivie culture/infection: None MDRO Source:: None Past Surgical History: Cardiac Valve Replacement, Cholecystectomy, Coronary Bypass/CABG, Heart Catheterization, Heart Catheterization With Stent, Hernia Repair, Orthopedic Surgery, Prostate Surgery Additional Past Surgical History / Comment(s): Aortic valve replacement, prostatectomy, right inguinal hernia repair 2, bilateral knee arthroscopy, colonoscopy/polypectomy, EGD, right leg varicose vein stripping, removal of a blood clot from the right lower extremity, cervical surgery d/t injury in [place] and removal of shrapnel's from the right shoulder, feeding tube Past Anesthesia/Blood Transfusion Reactions: No Reported Reaction Date of Last Stent Placement:: 2016 Past Psychological History: No Psychological Hx Reported Smoking Status: Former smoker Past Alcohol Use History: None Reported Past Drug Use History: None Reported - Past Family History Mother Family Medical History: Diabetes Mellitus Additional Family Medical History / Comment(s): Mother at age 74 from diabetic complications. Father Family Medical History: Congestive Heart Failure (CHF) Additional Family Medical History / Comment(s): Father at age 91 yrs. Medications and Allergies Home Medications Medication Instructions Recorded Confirmed Type Apixaban [Eliquis] 5 mg PO BID 08/04/20 02/20/22 History Levothyroxine Sodium [Euthyrox] 50 mcg PO DAILY 08/04/20 02/20/22 History Aspirin EC [Ecotrin Low Dose] 81 mg PO DAILY 12/24/20 02/20/22 History Mirtazapine [Remeron] 15 mg PO HS 12/24/20 02/20/22 History Pantoprazole Sodium 40 mg PO AC-BRKFST 12/24/20 02/20/22 History Thiamine [Vitamin B-1] 100 mg PO DAILY 12/24/20 02/20/22 History Vit C/E/Zn/Coppr/Lutein/Zeaxan 1 cap PO DAILY 12/24/20 02/20/22 History [Preservision Areds 2 Softgel] Atorvastatin [Lipitor] 20 mg PO HS 10/15/21 02/20/22 History Escitalopram Oxalate [Lexapro] 20 mg PO DAILY 10/15/21 02/20/22 History Fluticasone Propion/Salmeterol 1 puff INHALATION RT-BID 10/15/21 02/20/22 History [Wixela 250-50 Inhub] Lidocaine 4% Cream [Lmx 4] 1 applic TOPICAL DAILY 10/15/21 02/20/22 History Ipratropium-Albuterol Nebulize 3 ml INHALATION RT-QID #20 dose 10/19/21 02/20/22 Rx [Duoneb 0.5 mg-3 mg/3 ml Soln] Metoprolol Tartrate [Lopressor] 12.5 mg PO BID 11/03/21 02/20/22 History Furosemide [Lasix] 20 mg PO DAILY #30 tablet 11/04/21 02/20/22 Rx Allergies Allergy/AdvReac Type Severity Reaction Status Date / Time primidone Allergy Rash/Hives Verified 02/20/22 11:47 gabapentin AdvReac DIZZINESS Verified 02/20/22 11:47 Physical Exam Vitals: Vital Signs Temp Pulse Pulse Resp BP BP Pulse Ox 02/20/22 12:51 97.3 F L 65 16 139/88 100 02/20/22 12:30 97.7 F 65 18 168/82 98 02/20/22 09:40 02/20/22 09:02 80 02/20/22 08:50 80 02/20/22 08:00 97.7 F 86 18 132/97 97 02/20/22 07:17 56 L 18 100 02/20/22 06:57 61 19 123/61 99 02/20/22 06:10 61 16 133/61 100 02/20/22 05:19 02/20/22 05:00 82 22 150/77 84 L 02/20/22 03:39 69 17 96 02/20/22 01:07 97.7 F 69 16 126/55 94 L FiO2 02/20/22 12:51 70 02/20/22 12:30 02/20/22 09:40 70 02/20/22 09:02 02/20/22 08:50 80 02/20/22 08:00 02/20/22 07:17 02/20/22 06:57 02/20/22 06:10 02/20/22 05:19 80 02/20/22 05:00 02/20/22 03:39 02/20/22 01:07 Intake and Output 02/19/22 02/20/22 02/20/22 22:59 06:59 14:59 Other: Weight 81.647 kg 81.647 kg PHYSICAL EXAMINATION: Patient is lying in the bed comfortably, no acute distress, awake alert and oriented but lethargic and drowsy... HEENT: Normocephalic. Neck is supple. Pupils reactive. Nostrils clear. Oral cavity is moist. Neck reveals no JVD, carotid bruits, or thyromegaly. CHEST EXAMINATION: Trachea is central. Symmetrical expansion. Bibasilar diminished sounds. No wheezing or rhonchi.. CARDIAC: Normal S1, S2 with no gallops. No murmurs ABDOMEN: Soft. Bowel sounds present. Nontender. No organomegaly. No abdominal bruits. Extremities: reveal no edema. No clubbing or cyanosis Neurologically awake, alert, oriented x2-3 with well-coordinated movements. No gross focal deficits noted Skin: No rash or skin lesions. Left parietal scalp laceration. Psychiatric: Coperative. Could not be assessed at this time. Musculoskeletal: No joint swelling or deformity. Results CBC & Chem 7: 02/20/22 03:23 02/20/22 03:23 Labs: Abnormal Lab Results - Last 24 Hours (Table) 02/20/22 02/20/22 02/20/22 Range/Units 03:23 03:23 03:23 RBC 3.65 L (4.30-5.90) m/uL Hgb 10.4 L (13.0-17.5) gm/dL Hct 34.5 L (39.0-53.0) % MCHC 30.0 L (31.0-37.0) g/dL Plt Count 108 L (150-450) k/uL Carbon Dioxide 36 H (22-30) mmol/L Glucose 104 H (74-99) mg/dL Calcium 7.7 L (8.4-10.2) mg/dL Troponin I 0.310 H* (0.000-0.034) ng/mL 02/20/22 02/20/22 02/20/22 Range/Units 05:21 08:21 11:26 RBC (4.30-5.90) m/uL Hgb (13.0-17.5) gm/dL Hct (39.0-53.0) % MCHC (31.0-37.0) g/dL Plt Count (150-450) k/uL Carbon Dioxide (22-30) mmol/L Glucose (74-99) mg/dL Calcium (8.4-10.2) mg/dL Troponin I 0.282 H* 0.285 H* 0.254 H* (0.000-0.034) ng/mL Thrombosis Risk Factor Assmnt - DVT/VTE Prophylaxis DVT/VTE Prophylaxis: Pharmacologic Prophylaxis ordered Assessment and Plan Assessment: Status post mechanical fall and head injury and laceration to the left parietal region. Acute CHF. Ejection fraction not known. Elevated troponin level unlikely ACS. Acute on chronic hypercapnic respiratory failure on home oxygen at bedtime at home. Requiring BiPAP. Pulmonary atrial fibrillation on anticoagulation with Eliquis. History of orientable replacement with bioprosthetic valve. Coronary arteries with history of CABG and prior stent placement History of CVA/TIA GERD Hearing disorder/deafness Hypertension Hyperlipidemia Memory impairment Chronic liver cirrhosis due to alcohol abuse History of prostate cancer s/p prostatectomy DVT prophylaxis patient is already on full anticoagulation Plan: Patient will be continued on telemetry monitoring. Troponin level trending down. Continue with pain management. Cardiology has seen the patient and 2D echocardiogram was ordered. Continue with aspirin statins and Eliquis and continue with IV Lasix 40 mg every 12. Continue DuoNebs and follow-up closely. Patient is being monitored in the ICU. Cardiology is on board. Prognosis is guarded at this time. Time with Patient: Greater than 30
[2022-02-20] MEDS: MIRTAZAPINE 15 MG TAB PO SCH (21:44)
[2022-02-21] MEDS: LEVOTHYROXINE 50 MCG TAB PO SCH (06:09)
[2022-02-21] MEDS: FUROSEMIDE 10 MG/ML 4 ML VIAL IV SCH ×2 (06:09→20:40)
[2022-02-21] MEDS: PANTOPRAZOLE 40 MG TABLET PO SCH (06:09)
[2022-02-21 07:34] LABS: Basophils % (A) 1 %; Eosinophils # (A) 0.1 k/uL (0-0.7); Eosinophils % (A) 2 %; HCT 34.8 % (39.0-53.0); HGB 10.5 gm/dL (13.0-17.5); Hypochromasia Marked; Lymphocytes # (A) 0.8 k/uL (1.0-4.8); Lymphocytes % (A) 10 %; MCH 28.3 pg (25.0-35.0); MCHC 30.1 g/dL (31.0-37.0); MCV 94.3 fL (80.0-100.0); Mean Platelet Volume 8.6; Monocytes # (A) 0.5 k/uL (0-1.0); Monocytes % (A) 6 %; Neutrophils # (A) 6.4 k/uL (1.3-7.7); Neutrophils % (A) 80 %; Platelet Count 106 k/uL (150-450); RBC 3.69 m/uL (4.30-5.90); RDW 13.4 % (11.5-15.5)
[2022-02-21] MEDS: IPRATROPIUM-ALBUTEROL 3 ML NEB INHALATION SCH ×4 (07:39→19:42)
[2022-02-21] MEDS: SYMBICORT 160-4.5 MCG INHALER INHALATION SCH ×2 (07:39→19:43)
[2022-02-21 07:57] LABS: Calcium 7.9 mg/dL (8.4-10.2); Potassium 4.2 mmol/L (3.5-5.1)
[2022-02-21] MEDS: ASPIRIN 81 MG PO SCH (08:08)
[2022-02-21] MEDS: METOPROLOL TARTRATE 12.5 MG TAB PO SCH ×2 (08:08→20:41)
[2022-02-21] MEDS: ESCITALOPRAM 20 MG TAB PO SCH (08:08)
[2022-02-21] MEDS: APIXABAN 5 MG TAB PO SCH ×2 (08:08→20:41)
--- NOTE | 2022-02-21 11:23 | CA ---
Transthoracic Echo Report Name: Sylvain Duran Age: 71 Gender: M : 1950 Exam Date: 02/20/2022 14:00 Exam Location: [place] [facility] Ht (in): 72 Wt (lb): 180 Ordering Physician: Evan Santana MD ([id number]) Attending/Referring Phys: Esther RENTERIA Supervisor [employer] Ami Loera RDCS Procedure CPT: Indications: troponin elevation Cardiac Hx: Technical Quality: Fair Contrast 1: Total Dose (mL): Contrast 2: Total Dose (mL): MEASUREMENTS (Male / Female) Normal Values 2D ECHO LV Diastolic Diameter PLAX 5.4 cm 4.2 - 5.9 / 3.9 - 5.3 cm LV Systolic Diameter PLAX 3.8 cm IVS Diastolic Thickness 1.5 cm 0.6 - 1.0 / 0.6 - 0.9 cm LVPW Diastolic Thickness 1.5 cm 0.6 - 1.0 / 0.6 - 0.9 cm LV Relative Wall Thickness 0.5 RV Internal Dim ED PLAX 3.3 cm LA Volume 137.8 cm??? 18 - 58 / 22 - 52 cm??? M-MODE Aortic Root Diameter MM 3.1 cm LA Systolic Diameter MM 5.9 cm LA Ao Ratio MM 1.9 AV Cusp Separation MM 1.8 cm DOPPLER AV Peak Velocity 228.1 cm/s AV Peak Gradient 20.8 mmHg LVOT Peak Velocity 72.9 cm/s LVOT Peak Gradient 2.1 mmHg TR Peak Velocity 311.9 cm/s TR Peak Gradient 38.9 mmHg Right Ventricular Systolic Press 42.8 mmHg FINDINGS Left Ventricle Moderately increased left ventricular wall thickness. Normal left ventricular systolic function with no obvious regional wall motion abnormalities. Left ventricular ejection fraction is estimated at 50-55 %. Right Ventricle Normal right ventricular size. Mild pulmonary hypertension. Right Atrium Mild right atrial dilatation. Left Atrium Moderate left atrial dilatation. Mitral Valve No mitral stenosis. Mild mitral annular calcification. Mild mitral regurgitation. Aortic Valve No aortic valve stenosis or regurgitation. Aortic valve sclerosis. Tricuspid Valve [id number] tricuspid regurgitation. Pulmonic Valve Trace pulmonic regurgitation. No pulmonic stenosis. Pericardium No pericardial effusion. Aorta Normal size aortic root and proximal ascending aorta. CONCLUSIONS Normal LV systolic function mild right atrial enlargement and mild mitral regurgitation mild to moderate tricuspid regurgitation Previewed by: Dr. Evan Santana MD (Electronically Signed) Final Date: 21 February 2022 11:23
--- NOTE | 2022-02-21 16:52 | PN ---
PROGRESS NOTE 71-year-old gentleman with complex and multiple medical problems, including coronary artery disease status post angioplasty, hypertension, dyslipidemia, atrial fibrillation, and aortic valve replacement, who has had a fall at an outside facility and brought in. Had mild troponin elevation for which Cardiology had been consulted. This morning he is feeling better and does not have any chest pain and his breathing appears fine to watch. Troponin is mildly elevated. Hemoglobin is 10. On exam, comfortable at rest, afebrile. Heart rate is 80 beats per minute. Blood pressure is 110/60. Respiratory 16. Chest exam reveals diminished air entry bilaterally with occasional rhonchi. Heart exam reveals first and second heart sounds. Ejection systolic murmur in the aortic area. Abdomen is soft. Examination of extremities reveals mild edema. ASSESSMENT AND PLAN: 1. Status post fall with head injury. 2. Elevated troponin of unclear clinical significance. 3. Permanent atrial fibrillation. 4. History of aortic valve replacement. 5. Coronary artery disease status post angioplasty. PLAN: Continue current measures. MMODL / IJN: [id number] /
[2022-02-21] MEDS: HYDROcodone/APAP 5-325MG 1 EACH TAB PO PRN (20:40)
[2022-02-21] MEDS: MIRTAZAPINE 15 MG TAB PO SCH (20:41)
[2022-02-21] MEDS: ATORVASTATIN 20 MG TAB PO SCH (20:41)
--- NOTE | 2022-02-21 23:01 | P.PN ---
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 Patient was standing in his kitchen and while turning his balance and fell. He did have laceration to the left parietal area of his scalp. Patient was initially taken to [facility] where he had lab work-up done which showed elevated troponin level to 0.46 and was transferred to [facility] for cardiology evaluation. Patient denies any complaints of chest pain. No palpitations. No complaints of shortness of breath. Patient had CT scan of the brain done at outside hospital facility was negative for any acute bleed or acute process. Patient also had T1 lumbar compression fracture. No complaints of weakness or tingling sensation in the legs. No fever no chills. Denied any recent illnesses. Patient cannot provide much history at this time. Laboratory showed WBC 6.1 hemoglobin 10.4 and platelets 108 Sodium 140 potassium 4.0 chloride 102 bicarb is 36 BUN 18 and creatinine 1.23 and blood sugar is 104 Troponin 0.310, 0.282 and 0.285 proBNP 4200. Chest x-ray showed there is some congestive heart failure with increasing congestion and pleural fluid compared to yesterday. EKG showed atrial fibrillation. Right ventricle hypertrophy. 02/21/2022 Patient was transferred to telemetry unit. Awake alert and oriented. Currently requiring 3 L oxygen via nasal cannula. Patient remains on IV Lasix 40 mg every 12. Also on duo nebs. 2D echocardiogram showed normal left ventricular systolic function and mild right atrial enlargement and mild mitral regurgitation mild to moderate tricuspid regurgitation. Cardiology is on board. Patient is also on Eliquis 5 mg twice daily due to chronic atrial fibrillation. Laboratory data showed WBC 8.0 hemoglobin 10.5 and platelets 106 sodium 141 potassium 4.2 chloride 95 bicarb is 41 BUN 16 and creatinine 1.06 and calcium 7.9 BNP 4200. Current medications reviewed. Objective - Vital Signs Vital signs: Vital Signs Temp 99.3 F 02/21/22 15:43 Pulse 76 07/24/22 19:57 Resp 16 02/21/22 15:43 BP 99/56 02/21/22 15:43 Pulse Ox 95 02/21/22 19:43 FiO2 36 02/21/22 19:43 Intake & Output 02/21/22 02/21/22 02/22/22 06:59 18:59 06:59 Intake Total 354 Output Total 1725 1510 200 Balance -1374 -4081 -200 Weight 85 kg Intake: Oral 354 Output: Urine 1725 1510 200 Other: Voiding Method Urinal - Exam PHYSICAL EXAMINATION: Patient is lying in the bed comfortably, no acute distress, awake alert and oriented.. HEENT: Normocephalic. Neck is supple. Pupils reactive. Nostrils clear. Oral cavity is moist. Neck reveals no JVD, carotid bruits, or thyromegaly. CHEST EXAMINATION: Trachea is central. Symmetrical expansion. Bibasilar diminished sounds. Basilar crackles. Nonlabored breathing.. CARDIAC: Normal S1, S2 with no gallops. No murmurs ABDOMEN: Soft. Bowel sounds present. Nontender. No organomegaly. No abdominal bruits. Extremities: reveal no edema. No clubbing or cyanosis Neurologically awake, alert, oriented x3 with well-coordinated movements. No focal deficits noted Skin: No rash or skin lesions. Psychiatric: Coperative. Could not be assessed completely.. Musculoskeletal: No joint swelling or deformity. Normal range of motion. - Labs CBC & Chem 7: 02/21/22 07:11 02/21/22 07:11 Labs: Abnormal Lab Results - Last 24 Hours (Table) 02/21/22 02/21/22 Range/Units 07:11 07:11 RBC 3.69 L (4.30-5.90) m/uL Hgb 10.5 L (13.0-17.5) gm/dL Hct 34.8 L (39.0-53.0) % MCHC 30.1 L (31.0-37.0) g/dL Plt Count 106 L (150-450) k/uL Lymphocytes # 0.8 L (1.0-4.8) k/uL Chloride 95 L (98-107) mmol/L Carbon Dioxide 41 H* (22-30) mmol/L Glucose 103 H (74-99) mg/dL Calcium 7.9 L (8.4-10.2) mg/dL Microbiology - Last 24 Hours (Table) 02/20/22 11:26 Blood Culture - Preliminary Blood No Growth after 24 hours Assessment and Plan Assessment: Status post mechanical fall and head injury and laceration to the left parietal region. Acute CHF with Preserved Ejection fraction Elevated troponin level unlikely ACS. Acute on chronic hypercapnic respiratory failure on home oxygen at bedtime at home. Requiring BiPAP. now at 3L via NC Permanent atrial fibrillation on anticoagulation with Eliquis. History of orientable replacement with bioprosthetic valve. Coronary arteries with history of CABG and prior stent placement History of CVA/TIA GERD Hearing disorder/deafness Hypertension Hyperlipidemia Memory impairment Chronic liver cirrhosis due to alcohol abuse History of prostate cancer s/p prostatectomy DVT prophylaxis patient is already on full anticoagulation Plan: Patient will be continued on telemetry monitoring. Troponin level trending down. Continue with pain management. Cardiology has seen the patient and 2D echocardiogram was done normal EF. Continue with aspirin statins and Eliquis and continue with IV Lasix 40 mg every 12. Continue DuoNebs and follow-up closely. Prognosis is guarded at this time. Time with Patient: Greater than 30
[2022-02-22] MEDS: PANTOPRAZOLE 40 MG TABLET PO SCH (06:05)
[2022-02-22] MEDS: LEVOTHYROXINE 50 MCG TAB PO SCH (06:05)
[2022-02-22] MEDS: FUROSEMIDE 10 MG/ML 4 ML VIAL IV SCH ×2 (06:06→17:26)
[2022-02-22] MEDS: SYMBICORT 160-4.5 MCG INHALER INHALATION SCH ×2 (07:32→19:32)
[2022-02-22] MEDS: IPRATROPIUM-ALBUTEROL 3 ML NEB INHALATION SCH ×4 (07:32→19:32)
--- NOTE | 2022-02-22 07:39 | XR ---
EXAMINATION TYPE: XR chest 1V DATE OF EXAM: 02/22/2022 COMPARISON: 02/20/2022 INDICATION: CHF TECHNIQUE: Single frontal view of the chest is obtained. FINDINGS: The heart size is enlarged. The pulmonary vasculature is somewhat prominent. There is improvement of the lung infiltrates especially at the right base. Residual remains at the bi lateral lung bases. Correlate for pulmonary edema and atelectasis. IMPRESSION: 1. Mild resolving congestive heart failure. 2. Mild residual pulmonary edema or atelectasis at the lung bases
[2022-02-22 07:53] LABS: Basophils % (A) 0 %; Eosinophils # (A) 0.1 k/uL (0-0.7); Eosinophils % (A) 2 %; HCT 33.4 % (39.0-53.0); Hypochromasia Marked; Lymphocytes # (A) 0.8 k/uL (1.0-4.8); Lymphocytes % (A) 13 %; MCH 28.1 pg (25.0-35.0); MCV 93.9 fL (80.0-100.0); Mean Platelet Volume 8.5; Monocytes # (A) 0.4 k/uL (0-1.0); Monocytes % (A) 6 %; Neutrophils # (A) 4.7 k/uL (1.3-7.7); Neutrophils % (A) 77 %; Platelet Count 125 k/uL (150-450); RBC 3.56 m/uL (4.30-5.90); RDW 13.5 % (11.5-15.5); WBC 6.1 k/uL (3.8-10.6)
[2022-02-22 08:03] LABS: Calcium 8.1 mg/dL (8.4-10.2); Potassium 3.5 mmol/L (3.5-5.1)
[2022-02-22] MEDS: ASPIRIN 81 MG PO SCH (08:37)
[2022-02-22] MEDS: METOPROLOL TARTRATE 12.5 MG TAB PO SCH ×2 (08:37→21:32)
[2022-02-22] MEDS: APIXABAN 5 MG TAB PO SCH ×2 (08:37→21:32)
[2022-02-22] MEDS: ESCITALOPRAM 20 MG TAB PO SCH (08:37)
--- NOTE | 2022-02-22 12:10 | P.PN ---
Subjective This is a pleasant 71-year-old male past medical history significant for coronary artery disease status post PCI of the proximal LAD in 2017, hypertension, dyslipidemia, valvular heart disease status post aortic valve replacement, Permanent atrial fibrillation (on Eliquis), COPD and former nicotine dependence, laparoscopic cholecystectomy 08/2020. He follows in the office with Dr. Sanabria. We have been asked to see in consultation for mildly elevated troponin. Patient presented to the emergency department with hypoxia requiring BiPAP. Patient is a poor historian. Apparently patient had a fall, was unclear if patient had syncopal event or not. Echocardiogram revealed EF of 5055%, mild to moderate tricuspid regurgitation 02/22/2022 Patient seen and examined at bedside, no acute distress. He denies any chest pain. He endorses to his breathing has improved. -1836mL fluid balance over the past 24 hours. Decrease in weight noted from admission. Meds: Eliquis 5 mg twice a day, aspirin 81 mg daily, atorvastatin 20 mg nightly, IV Lasix 40 mg twice a day, metoprolol tartrate 25 mg twice a day Labs: Sodium 141, potassium 3.5, BUN 15, serum creatinine 1.02, chloride 94, carbon dioxide 43, hemoglobin 10 PHYSICAL EXAMINATION Vitals reviewed CONSTITUTIONAL: No apparent distress. HEENT: Head is normocephalic. Pupils are equal, round. Sclerae anicteric. Mucous membranes of the mouth are moist. CHEST EXAMINATION: Lungs with decreased air exchange bilaterally. No chest wall tenderness is noted on palpation or with deep breathing. HEART EXAMINATION: Irregular rate and rhythm. S1, S2 heard. Systolic ejection murmur at the base and apex, no gallops or rub. ABDOMEN: Soft, Positive bowel sounds. EXTREMITIES: 2+ peripheral pulses, no edema and no calf tenderness. NEUROLOGIC EXAMINATION: Patient is awake, alert, oriented to person ASSESSMENT Elevated troponin of unclear significance Status post fall and head injury Chronic heart failure with preserved ejection fraction Coronary artery disease s/p PCI to proximal LAD 2016 Permanent atrial fibrillation on eliquis Valvular heart disease s/p bioprostheic aortic valve replacement Hypertension Dyslipidemia COPD Chronic nicotine dependence PLAN Continue IV lasix for additional 24 hours, Monitor I/Os, daily weights Monitor renal function and electrolytes Continue anticoagulation with Eliquis Continue beta meli and statin Further recommendations based on clinical course Nurse Practitioner note has been reviewed, I agree with a documented findings and plan of care. Patient was seen and examined. Objective - Vital Signs Vital signs: Vital Signs Temp 99.3 F 02/21/22 15:43 Pulse 73 02/21/22 15:43 Resp 16 02/21/22 15:43 BP 99/56 02/21/22 15:43 Pulse Ox 95 02/21/22 15:43 FiO2 50 02/20/22 20:02 Intake & Output 02/21/22 02/21/22 02/22/22 06:59 18:59 06:59 Intake Total 354 Output Total 1728 1510 Balance -1725 -1156 Weight 85 kg Intake: Oral 354 Output: Urine 1728 1510 Other: Voiding Method Urinal - Labs CBC & Chem 7: 02/22/22 07:08 02/22/22 07:08 Labs: Abnormal Lab Results - Last 24 Hours (Table) 02/21/22 02/21/22 Range/Units 07:11 07:11 RBC 3.69 L (4.30-5.90) m/uL Hgb 10.5 L (13.0-17.5) gm/dL Hct 34.8 L (39.0-53.0) % MCHC 30.1 L (31.0-37.0) g/dL Plt Count 106 L (150-450) k/uL Lymphocytes # 0.8 L (1.0-4.8) k/uL Chloride 95 L (98-107) mmol/L Carbon Dioxide 41 H* (22-30) mmol/L Glucose 103 H (74-99) mg/dL Calcium 7.9 L (8.4-10.2) mg/dL Microbiology - Last 24 Hours (Table) 02/20/22 11:26 Blood Culture - Preliminary Blood No Growth after 24 hours
[2022-02-22] MEDS: HYDROcodone/APAP 5-325MG 1 EACH TAB PO PRN (19:00)
[2022-02-22] MEDS: MIRTAZAPINE 15 MG TAB PO SCH (21:32)
[2022-02-22] MEDS: ATORVASTATIN 20 MG TAB PO SCH (21:32)
[2022-02-23] MEDS: FUROSEMIDE 10 MG/ML 4 ML VIAL IV SCH ×2 (06:19→17:29)
[2022-02-23] MEDS: PANTOPRAZOLE 40 MG TABLET PO SCH (06:19)
[2022-02-23] MEDS: LEVOTHYROXINE 50 MCG TAB PO SCH (06:19)
--- NOTE | 2022-02-23 07:04 | P.PN ---
Subjective Progress Note Date: 02/22/22 Patient is a 71-year-old male with a known history of atrial fibrillation/flutter on anticoagulation with Eliquis, hypothyroidism, history of aortic valve replacement with a bioprosthetic valve, pulmonary hypertension, chronic hypoxic respiratory failure on home oxygen at at bedtime, prostate cancer with history of prostatectomy, liver cirrhosis due to alcohol use and previous history of smoking, CAD status post CABG and stent placement other medical problems was brought to the hospital status post fall. Patient was standing in his kitchen and while turning his balance and fell. He did have laceration to the left parietal area of his scalp. Patient was initially taken to [facility] where he had lab work-up done which showed elevated troponin level to 0.46 and was transferred to [facility] for cardiology evaluation. Patient denies any complaints of chest pain. No palpitations. No complaints of shortness of breath. Patient had CT scan of the brain done at outside hospital facility was negative for any acute bleed or acute process. Patient also had T1 lumbar compression fracture. No complaints of weakness or tingling sensation in the legs. No fever no chills. Denied any recent illnesses. Patient cannot provide much history at this time. Laboratory showed WBC 6.1 hemoglobin 10.4 and platelets 108 Sodium 140 potassium 4.0 chloride 102 bicarb is 36 BUN 18 and creatinine 1.23 and blood sugar is 104 Troponin 0.310, 0.282 and 0.285 proBNP 4200. Chest x-ray showed there is some congestive heart failure with increasing congestion and pleural fluid compared to yesterday. EKG showed atrial fibrillation. Right ventricle hypertrophy. 02/21/2022 Patient was transferred to telemetry unit. Awake alert and oriented. Currently requiring 3 L oxygen via nasal cannula. Patient remains on IV Lasix 40 mg every 12. Also on duo nebs. 2D echocardiogram showed normal left ventricular systolic function and mild right atrial enlargement and mild mitral regurgitatio n mild to moderate tricuspid regurgitation. Cardiology is on board. Patient is also on Eliquis 5 mg twice daily due to chronic atrial fibrillation. Laboratory data showed WBC 8.0 hemoglobin 10.5 and platelets 106 sodium 141 potassium 4.2 chloride 95 bicarb is 41 BUN 16 and creatinine 1.06 and calcium 7.9 BNP 4200. 02/22/2022 Patient is seen and evaluated in follow-up this morning with cardiology following. Patient is continued on IV lasix bid and will continue. Diuresing well and continues on Nasal cannula. Encouraged increased activity as tolerated. Patient is weak and will have pt evaluate the patient. Patient to continue with breathing inhalational treatments as well. Chest xray shows some mild resolving of heart failure and continued edema noted. Patient is afebrile and denies wors ening shortness of breath. Patient denies chest pain or palpitations. Recommend to continue with Eliquis. Review of systems: unable to fully obtain as patient is lethargic Constitutional: No reports of fatigue, fever, or chills Cardiovascular: No reports of chest pain or palpitations Respiratory: No reports of worsening shortness of breath All medications have been reviewed Active Medications Hydrocodone Bitart/Acetaminophen (Hydrocodone/Apap 5-325mg 1 Each Tab) 1 each PO Q6HR PRN PRN Reason: Pain Last Admin: 02/21/22 20:40 Dose: 1 each Albuterol/Ipratropium (Ipratropium-Albuterol 3 Ml Neb) 3 ml INHALATION RT-QID [facility] Last Admin: 02/22/22 15:23 Dose: Not Given Apixaban (Apixaban 5 Mg Tab) 5 mg PO BID [facility]; Protocol Last Admin: 02/22/22 08:37 Dose: 5 mg Aspirin (Aspirin 81 Mg) 81 mg PO DAILY [facility] Last Admin: 02/22/22 08:37 Dose: 81 mg Atorvastatin Calcium (Atorvastatin 20 Mg Tab) 20 mg PO HS [facility] Last Admin: 02/21/22 20:41 Dose: 20 mg Budesonide/Formoterol Fumarate (Symbicort 160-4.5 Mcg Inhaler) 2 puff INHALATION RT-BID [facility] Last Admin: 02/22/22 07:32 Dose: Not Given Escitalopram Oxalate (Escitalopram 20 Mg Tab) 20 mg PO DAILY [facility] Last Admin: 02/22/22 08:37 Dose: 20 mg Furosemide (Furosemide 10 Mg/Ml 4 Ml Vial) 40 mg IV Q12H [facility] Last Admin: 02/22/22 06:06 Dose: 40 mg Levothyroxine Sodium (Levothyroxine 50 Mcg Tab) 50 mcg PO DAILY@0630 [facility] Last Admin: 02/22/22 06:05 Dose: 50 mcg Metoprolol Tartrate (Metoprolol Tartrate 12.5 Mg Tab) 12.5 mg PO BID [facility] Last Admin: 02/22/22 08:37 Dose: 12.5 mg Mirtazapine (Mirtazapine 15 Mg Tab) 15 mg PO HS [facility] Last Admin: 02/21/22 20:41 Dose: 15 mg Pantoprazole Sodium (Pantoprazole 40 Mg Tablet) 40 mg PO AC-BRKFST [facility] Last Admin: 02/22/22 06:05 Dose: 40 mg Physical exam: Patient is lying in the bed , awake alert and oriented.. HEENT: Normocephalic. Neck is supple. Pupils reactive. Nostrils clear. Oral cavity is moist. Neck reveals no JVD, carotid bruits, or thyromegaly. CHEST EXAMINATION: Trachea is central. Symmetrical expansion. Bibasilar dim inished sounds. Basilar crackles. Nonlabored breathing.. CARDIAC: S1, S2 muffled ABDOMEN: Soft. Bowel sounds present. Nontender. No organomegaly. No abdominal bruits. Extremities: reveal no edema. No clubbing or cyanosis Neurologically awake, alert, oriented x3 with well-coordinated movements. No focal deficits noted, diffuse weakness Skin: No rash or skin lesions. Psychiatric: Cooperative. lethargic Musculoskeletal: No joint swelling or deformity. Normal range of motion. Assessment: Status post mechanical fall and head injury and laceration to the left parietal region. Acute CHF with Preserved Ejection fraction Elevated troponin, ruled out ACS. Acute on chronic hypercapnic respiratory failure on home oxygen at bedtime at home. Requiring BiPAP. now at 3L via [place] Permanent atrial fibrillation on anticoagulation with Eliquis. History of valve replacement with bioprosthetic valve. Coronary arteries with history of CABG and prior stent placement History of CVA/TIA GERD Hearing disorder/deafness Hypertension Hyperlipidemia Memory impairment Chronic liver cirrhosis due to alcohol abuse History of prostate cancer s/p prostatectomy DVT prophylaxis patient is already on full anticoagulation No code Plan: Patient will be continued on telemetry monitoring. Cardiology following the patient and 2D echocardiogram was done normal EF. Recommend to continue with IV lasix push 40mg bid and repeat am labs. possible transition to oral in 24 hours. Continue with aspirin statins and Eliquis Continue DuoNebs and follow-up closely. Due to multiple complex medical issues, Prognosis is guarded at this time. Will have PT/OT evaluate the patient. The impression and plan of care has been dictated by Maricarmen Stout, Nurse Practitioner as directed. Dr. Thang MD I have performed a history and examination and MDM of this patient, discussed the same with the dictator, and agree with the dictator's assessment and plan as written ,documented as a scribe. Based on total visit time, I have performed more than 50% of the visit. Objective - Vital Signs Vital signs: Vital Signs Temp 97.7 F 02/22/22 08:35 Pulse 96 02/22/22 08:35 Resp 20 02/22/22 08:35 BP 123/68 02/22/22 08:35 Pulse Ox 99 02/22/22 08:35 FiO2 36 02/21/22 19:43 Intake & Output 02/21/22 02/22/22 02/22/22 18:59 06:59 18:59 Intake Total 354 120 120 Output Total 1510 800 725 Balance -1156 -680 -605 Weight 83.5 kg Intake: Oral 354 120 120 Output: Urine 1510 800 725 Other: Voiding Method Urinal Urinal - Labs CBC & Chem 7: 02/22/22 07:08 02/22/22 07:08 Labs: Abnormal Lab Results - Last 24 Hours (Table) 02/22/22 02/22/22 Range/Units 07:08 07:08 RBC 3.56 L (4.30-5.90) m/uL Hgb 10.0 L (13.0-17.5) gm/dL Hct 33.4 L (39.0-53.0) % MCHC 30.0 L (31.0-37.0) g/dL Plt Count 125 L (150-450) k/uL Lymphocytes # 0.8 L (1.0-4.8) k/uL Chloride 94 L (98-107) mmol/L Carbon Dioxide 43 H* (22-30) mmol/L Glucose 108 H (74-99) mg/dL Calcium 8.1 L (8.4-10.2) mg/dL Microbiology - Last 24 Hours (Table) 02/20/22 11:26 Blood Culture - Preliminary Blood No Growth after 24 hours
[2022-02-23 08:19] LABS: African American GFR (CKD) >90 (>60 ml/min/1.73 sqM); Blood Urea Nitrogen 16 mg/dL (9-20); Calcium 8.2 mg/dL (8.4-10.2); Chloride 93 mmol/L (98-107); Glucose 102 mg/dL (74-99); Magnesium 1.6 mg/dL (1.6-2.3); Non-African American GFR(CKD) 83 (>60 ml/min/1.73 sqM); Potassium 3.5 mmol/L (3.5-5.1); Sodium 141 mmol/L (137-145)
[2022-02-23] MEDS: SYMBICORT 160-4.5 MCG INHALER INHALATION SCH ×2 (08:32→19:22)
[2022-02-23] MEDS: IPRATROPIUM-ALBUTEROL 3 ML NEB INHALATION SCH ×4 (08:32→19:22)
[2022-02-23 09:05] LABS: Anion Gap 7 mmol/L; Carbon Dioxide 41 mmol/L (22-30)
[2022-02-23] MEDS: ASPIRIN 81 MG PO SCH (09:05)
[2022-02-23] MEDS: METOPROLOL TARTRATE 12.5 MG TAB PO SCH ×2 (09:05→20:36)
[2022-02-23] MEDS: ESCITALOPRAM 20 MG TAB PO SCH (09:06)
[2022-02-23] MEDS: APIXABAN 5 MG TAB PO SCH ×2 (09:06→20:37)
--- NOTE | 2022-02-23 13:13 | P.PN ---
Subjective This is a pleasant 71-year-old male past medical history significant for coronary artery disease status post PCI of the proximal LAD in 2017, hypertension, dyslipidemia, valvular heart disease status post aortic valve replacement, Permanent atrial fibrillation (on Eliquis), COPD and former nicotine dependence, laparoscopic cholecystectomy 08/2020. He follows in the office with Dr. Sanabria. We have been asked to see in consultation for mildly elevated troponin. Patient presented to the emergency department with hypoxia requiring BiPAP. Patient is a poor historian. Apparently patient had a fall, was unclear if patient had syncopal event or not. Echocardiogram revealed EF of 5055%, mild to moderate tricuspid regurgitation 02/23/2022 Patient seen and examined at bedside, no acute distress. Sitting up in the bedside chair. He denies any chest pain. He endorses to his breathing has improved. -1525mL fluid balance over the past 24 hours. Decrease in weight noted from admission. Meds: Eliquis 5 mg twice a day, aspirin 81 mg daily, atorvastatin 20 mg nightly, IV Lasix 40 mg twice a day, metoprolol tartrate 25 mg twice a day Labs: Sodium 141, potassium 3.5, BUN 15, serum creatinine 0.91, chloride 93, carbon dioxide 41, PHYSICAL EXAMINATION Vitals reviewed CONSTITUTIONAL: No apparent distress. HEENT: Head is normocephalic. Pupils are equal, round. Sclerae anicteric. Mucous membranes of the mouth are moist. CHEST EXAMINATION: Lungs with decreased air exchange bilaterally. No chest wall tenderness is noted on palpation or with deep breathing. HEART EXAMINATION: Irregular rate and rhythm. S1, S2 heard. Systolic ejection murmur at the base and apex, no gallops or rub. ABDOMEN: Soft, Positive bowel sounds. EXTREMITIES: 2+ peripheral pulses, no edema and no calf tenderness. NEUROLOGIC EXAMINATION: Patient is awake, alert, oriented to person ASSESSMENT Elevated troponin of unclear significance Status post fall and head injury Chronic heart failure with preserved ejection fraction Coronary artery disease s/p PCI to proximal LAD 2016 Permanent atrial fibrillation on eliquis Valvular heart disease s/p bioprostheic aortic valve replacement Hypertension Dyslipidemia COPD Chronic nicotine dependence PLAN Continue IV lasix for additional 24 hours, hopefully transition to PO Lasix tomorrow Monitor I/Os, daily weights Monitor renal function and electrolytes Continue anticoagulation with Eliquis Continue beta meli and statin Further recommendations based on clinical course Nurse Practitioner note has been reviewed, I agree with a documented findings and plan of care. Patient was seen and examined. Objective - Vital Signs Vital signs: Vital Signs Temp 98.1 F 02/23/22 09:05 Pulse 72 02/23/22 09:05 Resp 18 02/23/22 09:05 BP 100/60 02/23/22 09:05 Pulse Ox 95 02/23/22 09:05 FiO2 36 02/21/22 19:43 Intake & Output 02/22/22 02/23/22 02/23/22 18:59 06:59 18:59 Intake Total 480 120 240 Output Total 1775 350 Balance -1295 -230 240 Weight 80.9 kg Intake: Oral 480 120 240 Output: Urine 1775 350 Stool 0 Other: Voiding Method Urinal Urinal Urinal # Voids 2 - Labs CBC & Chem 7: 02/22/22 07:08 02/23/22 07:41 Labs: Abnormal Lab Results - Last 24 Hours (Table) 02/23/22 Range/Units 07:41 Chloride 93 L (98-107) mmol/L Carbon Dioxide 41 H* (22-30) mmol/L Glucose 102 H (74-99) mg/dL Calcium 8.2 L (8.4-10.2) mg/dL Microbiology - Last 24 Hours (Table) 02/20/22 11:26 Blood Culture - Preliminary Blood No Growth after 48 hours
[2022-02-23] MEDS: MIRTAZAPINE 15 MG TAB PO SCH (20:36)
[2022-02-23] MEDS: ATORVASTATIN 20 MG TAB PO SCH (20:37)
--- NOTE | 2022-02-23 20:58 | P.PN ---
Subjective Progress Note Date: 02/23/22 Patient is a 71-year-old male with a known history of atrial fibrillation/flutter on anticoagulation with Eliquis, hypothyroidism, history of aortic valve replacement with a bioprosthetic valve, pulmonary hypertension, chronic hypoxic respiratory failure on home oxygen at at bedtime, prostate cancer with history of prostatectomy, liver cirrhosis due to alcohol use and previous history of smoking, CAD status post CABG and stent placement other medical problems was brought to the hospital status post fall. Patient was standing in his kitchen and while turning his balance and fell. He did have laceration to the left parietal area of his scalp. Patient was initially taken to [facility] where he had lab work-up done which showed elevated troponin level to 0.46 and was transferred to [facility] for cardiology evaluation. Patient denies any complaints of chest pain. No palpitations. No complaints of shortness of breath. Patient had CT scan of the brain done at outside hospital facility was negative for any acute bleed or acute process. Patient also had T1 lumbar compression fracture. No complaints of weakness or tingling sensation in the legs. No fever no chills. Denied any recent illnesses. Patient cannot provide much history at this time. Laboratory showed WBC 6.1 hemoglobin 10.4 and platelets 108 Sodium 140 potassium 4.0 chloride 102 bicarb is 36 BUN 18 and creatinine 1.23 and blood sugar is 104 Troponin 0.310, 0.282 and 0.285 proBNP 4200. Chest x-ray showed there is some congestive heart failure with increasing congestion and pleural fluid compared to yesterday. EKG showed atrial fibrillation. Right ventricle hypertrophy. 02/21/2022 Patient was transferred to telemetry unit. Awake alert and oriented. Currently requiring 3 L oxygen via nasal cannula. Patient remains on IV Lasix 40 mg every 12. Also on duo nebs. 2D echocardiogram showed normal left ventricular systolic function and mild right atrial enlargement and mild mitral regurgitatio n mild to moderate tricuspid regurgitation. Cardiology is on board. Patient is also on Eliquis 5 mg twice daily due to chronic atrial fibrillation. Laboratory data showed WBC 8.0 hemoglobin 10.5 and platelets 106 sodium 141 potassium 4.2 chloride 95 bicarb is 41 BUN 16 and creatinine 1.06 and calcium 7.9 BNP 4200. 02/22/2022 Patient is seen and evaluated in follow-up this morning with cardiology following. Patient is continued on IV lasix bid and will continue. Diuresing well and continues on Nasal cannula. Encouraged increased activity as tolerated. Patient is weak and will have pt evaluate the patient. Patient to continue with breathing inhalational treatments as well. Chest xray shows some mild resolving of heart failure and continued edema noted. Patient is afebrile and denies wors ening shortness of breath. Patient denies chest pain or palpitations. Recommend to continue with Eliquis. 02/23/2022 Patient seen in follow up and continues with dyspnea. Patient is being continued on IV lasix with cardiology following and recommending continuing with IV diuresis and follow up with am labs. Continued on breathing treatments and continue current medications. Patient is lethargic but easily arousable, denies chest pain or palpitations. Patient reports to feeling slightly improved in breathing. Encouraged increased activity as tolerated. Encouraged oral intake. Review of systems: unable to fully obtain as patient is lethargic Constitutional: reports of fatigue, no fever, or chills Cardiovascular: No reports of chest pain or palpitations Respiratory: No reports of worsening shortness of breath All medications have been reviewed Active Medications Hydrocodone Bitart/Acetaminophen (Hydrocodone/Apap 5-325mg 1 Each Tab) 1 each PO Q6HR PRN PRN Reason: Pain Last Admin: 02/22/22 19:00 Dose: 1 each Albuterol/Ipratropium (Ipratropium-Albuterol 3 Ml Neb) 3 ml INHALATION RT-QID [facility] Last Admin: 02/23/22 19:22 Dose: 3 ml Apixaban (Apixaban 5 Mg Tab) 5 mg PO BID [facility]; Protocol Last Admin: 02/23/22 20:37 Dose: 5 mg Aspirin (Aspirin 81 Mg) 81 mg PO DAILY [facility] Last Admin: 02/23/22 09:05 Dose: 81 mg Atorvastatin Calcium (Atorvastatin 20 Mg Tab) 20 mg PO HS [facility] Last Admin: 02/23/22 20:37 Dose: 20 mg Budesonide/Formoterol Fumarate (Symbicort 160-4.5 Mcg Inhaler) 2 puff INHALATION RT-BID [facility] Last Admin: 02/23/22 19:22 Dose: 2 puff Escitalopram Oxalate (Escitalopram 20 Mg Tab) 20 mg PO DAILY [facility] Last Admin: 02/23/22 09:06 Dose: 20 mg Furosemide (Furosemide 10 Mg/Ml 4 Ml Vial) 40 mg IV Q12H [facility] Last Admin: 02/23/22 17:29 Dose: 40 mg Levothyroxine Sodium (Levothyroxine 50 Mcg Tab) 50 mcg PO DAILY@0630 [facility] Last Admin: 02/23/22 06:19 Dose: 50 mcg Metoprolol Tartrate (Metoprolol Tartrate 12.5 Mg Tab) 12.5 mg PO BID [facility] Last Admin: 02/23/22 20:36 Dose: 12.5 mg Mirtazapine (Mirtazapine 15 Mg Tab) 15 mg PO HS [facility] Last Admin: 02/23/22 20:36 Dose: 15 mg Pantoprazole Sodium (Pantoprazole 40 Mg Tablet) 40 mg PO AC-BRKFST [facility] Last Admin: 02/23/22 06:19 Dose: 40 mg Physical exam: Patient is lying in the bed , asleep but arousable, alert and oriented 2.. HEENT: Normocephalic. Neck is supple. Pupils reactive. Nostrils clear. Oral cavity is moist. Neck reveals no JVD, carotid bruits, or thyromegaly. CHEST EXAMINATION: Trachea is central. Symmetrical expansion. Bibasilar diminished sounds. Basilar crackles. Nonlabored breathing.. CARDIAC: S1, S2 muffled ABDOMEN: Soft. Bowel sounds present. Nontender. No organomegaly. No abdominal bruits. Extremities: reveal no edema. No clubbing or cyanosis Neurologically awake, alert, oriented x3 with well-coordinated movements. No f ocal deficits noted, diffuse weakness Skin: No rash or skin lesions. Psychiatric: Cooperative. lethargic Musculoskeletal: No joint swelling or deformity. Normal range of motion. Assessment: Status post mechanical fall and head injury and laceration to the left parietal region. Acute CHF with Preserved Ejection fraction Elevated troponin, ruled out ACS. Acute on chronic hypercapnic respiratory failure on home oxygen at bedtime at home. Requiring BiPAP. now at 3L via [place] Permanent atrial fibrillation on anticoagulation with Eliquis. History of valve replacement with bioprosthetic valve. Coronary arteries with history of CABG and prior stent placement History of CVA/TIA GERD Hearing disorder/deafness Hypertension Hyperlipidemia Memory impairment Chronic liver cirrhosis due to alcohol abuse History of prostate cancer s/p prostatectomy DVT prophylaxis patient is already on full anticoagulation No code Plan: Patient will be continued on telemetry monitoring. Cardiology following the patient and 2D echocardiogram was done normal EF. Recommend to continue with IV lasix push 40mg bid and repeat am labs. possible transition to oral in 24 hours. Continue with aspirin statins and Eliquis Continue DuoNebs and follow-up closely. Due to multiple complex medical issues, Prognosis is guarded at this time. Possible discharge in 24-48 hours. The impression and plan of care has been dictated by Maricarmen Stout, Nurse Practitioner as directed. Dr. Thang MD I have performed a history and examination and MDM of this patient, discussed the same with the dictator, and agree with the dictator's assessment and plan as written ,documented as a scribe. Based on total visit time, I have performed more than 50% of the visit. Objective - Vital Signs Vital signs: Vital Signs Temp 98.1 F 02/23/22 09:05 Pulse 72 02/23/22 09:05 Resp 18 02/23/22 09:05 BP 100/60 02/23/22 09:05 Pulse Ox 95 02/23/22 09:05 FiO2 36 02/21/22 19:43 Intake & Output 02/22/22 02/23/22 02/23/22 18:59 06:59 18:59 Intake Total 480 120 240 Output Total 1775 350 Balance -1295 -230 240 Weight 80.9 kg Intake: Oral 480 120 240 Output: Urine 1775 350 Stool 0 Other: Voiding Method Urinal Urinal Urinal # Voids 2 - Labs CBC & Chem 7: 02/22/22 07:08 02/23/22 07:41 Labs: Abnormal Lab Results - Last 24 Hours (Table) 02/23/22 Range/Units 07:41 Chloride 93 L (98-107) mmol/L Carbon Dioxide 41 H* (22-30) mmol/L Glucose 102 H (74-99) mg/dL Calcium 8.2 L (8.4-10.2) mg/dL Microbiology - Last 24 Hours (Table) 02/20/22 11:26 Blood Culture - Preliminary Blood No Growth after 48 hours
[2022-02-24] MEDS: LEVOTHYROXINE 50 MCG TAB PO SCH (05:51)
[2022-02-24] MEDS: FUROSEMIDE 10 MG/ML 4 ML VIAL IV SCH (05:51)
[2022-02-24] MEDS: PANTOPRAZOLE 40 MG TABLET PO SCH (05:51)
[2022-02-24] MEDS: IPRATROPIUM-ALBUTEROL 3 ML NEB INHALATION SCH ×3 (07:53→15:49)
[2022-02-24] MEDS: SYMBICORT 160-4.5 MCG INHALER INHALATION SCH (07:53)
[2022-02-24] MEDS: ESCITALOPRAM 20 MG TAB PO SCH (08:42)
[2022-02-24] MEDS: METOPROLOL TARTRATE 12.5 MG TAB PO SCH (08:43)
[2022-02-24] MEDS: ASPIRIN 81 MG PO SCH (08:43)
[2022-02-24] MEDS: APIXABAN 5 MG TAB PO SCH (08:43)
[2022-02-24 08:57] LABS: Calcium 8.6 mg/dL (8.4-10.2); Magnesium 1.5 mg/dL (1.6-2.3); Potassium 4.7 mmol/L (3.5-5.1)
[2022-02-24] MEDS ORDERED: Magnesium Replacement Protocol 1 EACH MISC MISCELLANE PRN (09:44)
[2022-02-24] MEDS: MAGNESIUM SULFATE-D5W PMX 1 GM in DEXTROSE/WATER 1 100ML.BAG IVPB SCH ×2 (12:41→14:50)
--- NOTE | 2022-02-24 12:43 | P.PN ---
Subjective This is a pleasant 71-year-old male past medical history significant for coronary artery disease status post PCI of the proximal LAD in 2017, hypertension, dyslipidemia, valvular heart disease status post aortic valve replacement, Permanent atrial fibrillation (on Eliquis), COPD and former nicotine dependence, laparoscopic cholecystectomy 08/2020. He follows in the office with Dr. Sanabria. We have been asked to see in consultation for mildly elevated troponin. Patient presented to the emergency department with hypoxia requiring BiPAP. Patient is a poor historian. Apparently patient had a fall, was unclear if patient had syncopal event or not. Echocardiogram revealed EF of 5055%, mild to moderate tricuspid regurgitation 02/24/2022 Patient seen and examined at bedside, no acute distress. Sitting up in the bedside chair. He denies any chest pain. He endorses to his breathing has improved. -1525mL fluid balance yesterday. Decrease in weight noted from admission, now stabilized Meds: Eliquis 5 mg twice a day, aspirin 81 mg daily, atorvastatin 20 mg nightly, IV Lasix 40 mg twice a day, metoprolol tartrate 25 mg twice a day Labs: Sodium 139, potassium 4.7, BUN 20, serum creatinine 1.1, magnesium 1.5 PHYSICAL EXAMINATION Vitals reviewed CONSTITUTIONAL: No apparent distress. HEENT: Head is normocephalic. Pupils are equal, round. Sclerae anicteric. Mucous membranes of the mouth are moist. CHEST EXAMINATION: Lungs with decreased air exchange bilaterally. No chest wall tenderness is noted on palpation or with deep breathing. HEART EXAMINATION: Irregular rate and rhythm. S1, S2 heard. Systolic ejection murmur at the base and apex, no gallops or rub. ABDOMEN: Soft, Positive bowel sounds. EXTREMITIES: 2+ peripheral pulses, no edema and no calf tenderness. NEUROLOGIC EXAMINATION: Patient is awake, alert, oriented to person ASSESSMENT Elevated troponin of unclear significance Status post fall and head injury Chronic heart failure with preserved ejection fraction Coronary artery disease s/p PCI to proximal LAD 2016 Permanent atrial fibrillation on eliquis Valvular heart disease s/p bioprostheic aortic valve replacement Hypertension Dyslipidemia COPD Chronic nicotine dependence PLAN Transition to PO Lasix 40mg daily Continue anticoagulation with Eliquis Continue beta meli and statin Patient is stable from a cardiology perspective, on discharge patient to follow up in the office in 1 week. Nurse Practitioner note has been reviewed, I agree with a documented findings and plan of care. Patient was seen and examined. Objective - Vital Signs Vital signs: Vital Signs Temp 99.5 F 02/24/22 08:00 Pulse 82 02/24/22 08:06 Resp 18 02/24/22 08:00 BP 105/52 02/24/22 08:00 Pulse Ox 97 02/24/22 08:00 FiO2 36 02/21/22 19:43 Intake & Output 02/23/22 02/24/22 02/24/22 18:59 06:59 18:59 Intake Total 598 480 120 Balance 598 480 120 Weight 80.2 kg Intake: Oral 598 480 120 Other: Voiding Method Urinal Urinal # Voids 3 1 # Bowel Movements 0 - Labs CBC & Chem 7: 02/22/22 07:08 02/24/22 08:03 Labs: Abnormal Lab Results - Last 24 Hours (Table) 02/24/22 Range/Units 08:03 Chloride 90 L (98-107) mmol/L Carbon Dioxide 43 H* (22-30) mmol/L Glucose 142 H (74-99) mg/dL Magnesium 1.5 L (1.6-2.3) mg/dL Microbiology - Last 24 Hours (Table) 02/20/22 11:26 Blood Culture - Preliminary Blood No Growth after 72 hours
[2022-02-24 12:44] VITALS: BP 91/51; RESP 20; TEMP 98.8
[2022-02-24 15:57] VITALS: PULSE 78
[2022-02-24] MEDS ORDERED: MAGNESIUM OXIDE 400 MG TAB PO SCH (21:00)
[2022-02-25] MEDS ORDERED: FUROSEMIDE 40 MG TAB PO SCH (09:00)
--- NOTE | 2022-02-25 14:53 | P.DS ---
Providers Date of admission: 02/20/22 12:44 Expected date of discharge: 02/24/22 Attending physician: Sawyer Hopkins Consults: 02/20/22 06:40 Consult Physician Routine Consulting Provider: Evan Santana Consult Reason/Comments: CHF exacerbation. Elevated troponin Do you want consulting provider notified?: Yes Primary care physician: [facility] Hospital Course: Final diagnosis Status post mechanical fall and head injury and laceration to the left parietal region. Acute CHF with Preserved Ejection fraction Elevated troponin, ruled out ACS. Acute on chronic hypercapnic respiratory failure on home oxygen Permanent atrial fibrillation on anticoagulation with Eliquis. History of valve replacement with bioprosthetic valve. Coronary arteries with history of CABG and prior stent placement History of CVA/TIA GERD Hearing disorder/deafness Hypertension Hyperlipidemia Memory impairment Chronic liver cirrhosis due to alcohol abuse History of prostate cancer s/p prostatectomy DVT prophylaxis patient is already on full anticoagulation No code Discharge disposition Patient is being discharged in a stable condition with guarded prognosis to home. Patient will follow-up with [facility] in the outpatient setting upon discharge. Patient is to continue with oral Lasix and recommend repeat labs in the outpatient setting. Patient is to follow-up with pulmonary and cardiology outpatient as well. Total time taken is greater than 35 minutes. Hospital course This is a 71-year-old male who was recently admitted increasing shortness of breath with an extensive past medical history and was followed by pulmonary and cardiology. Patient was continued on IV diuresis and diuresed well and maintained on his chronic 4 L of oxygen via nasal cannula. Patient will continue on oral Lasix and recommend repeat labs in the next 2-3 days with close outpatient follow-up with his primary care office. Patient continues with weakness although family refusing any rehab and will be going home with his son. Recommend repeat labs in the next 2-3 days and patient was started on magnesium oxide oral and encouraged oral intake. Recommend aspiration precautions with head of the bed elevated 30-45 at all times and supervision with meals. Currently no reports of chest pain, shortness of breath, or palpitations. Patient is afebrile. No reports of nausea or vomiting and patient is tolerating diet. Patient will be discharged home today. Physical exam: Gen: This is a 71-year-old male awake, alert and oriented 2, thin built. HEENT: Head is atraumatic, normocephalic. Pupils equal, round. Sclerae is anicteric. NECK: Supple. No JVD. No lymphadenopathy. No thyromegaly. LUNGS: Diminished breath sounds bilaterally with scattered rhonchi and congestion noted. No intercostal retractions. HEART: Regular rate and rhythm. No murmur. ABDOMEN: Soft. Bowel sounds are present. No masses. No tenderness. EXTREMITIES: No pedal edema. No calf tenderness. NEUROLOGICAL: Patient is awake, alert and oriented x2. Cranial nerves 2 through 12 are grossly intact. Diffusely weak Please refer to medication reconciliation sheet for a list of medications. The impression and plan of care has been dictated by Maricarmen Stout, Nurse Practitioner as directed. Dr. Yanelis MD I have performed a history and examination and MDM of this patient, discussed t he same with the dictator, and agree with the dictator's assessment and plan as written ,documented as a scribe. Based on total visit time, I have performed more than 50% of the visit. Patient Condition at Discharge: Fair Plan - Discharge Summary New Discharge Prescriptions: New Magnesium Oxide [Mag-Ox] 400 mg PO BID 30 Days #60 tab Budesonide-Formot 160-4.5 Mcg [Symbicort 160-4.5 Mcg Inhaler] 2 puff INHALATION RT-BID 30 Days #1 each Continue Levothyroxine Sodium [Euthyrox] 50 mcg PO DAILY Apixaban [Eliquis] 5 mg PO BID Thiamine [Vitamin B-1] 100 mg PO DAILY Aspirin EC [Ecotrin Low Dose] 81 mg PO DAILY Lidocaine 4% Cream [Lmx 4] 1 applic TOPICAL DAILY Ipratropium-Albuterol Nebulize [Duoneb 0.5 mg-3 mg/3 ml Soln] 3 ml INHALATION RT-QID #20 dose Vit C/E/Zn/Coppr/Lutein/Zeaxan [Preservision Areds 2 Softgel] 1 cap PO DAILY Pantoprazole Sodium 40 mg PO AC-BRKFST Mirtazapine [Remeron] 15 mg PO HS Escitalopram Oxalate [Lexapro] 20 mg PO DAILY Fluticasone Propion/Salmeterol [Wixela 250-50 Inhub] 1 puff INHALATION RT-BID Atorvastatin [Lipitor] 20 mg PO HS Metoprolol Tartrate [Lopressor] 12.5 mg PO BID Changed Furosemide [Lasix] 40 mg PO DAILY 30 Days #60 tablet Discharge Medication List Apixaban [Eliquis] 5 mg PO BID 08/04/20 [History] Levothyroxine Sodium [Euthyrox] 50 mcg PO DAILY 08/04/20 [History] Aspirin EC [Ecotrin Low Dose] 81 mg PO DAILY 12/24/20 [History] Mirtazapine [Remeron] 15 mg PO HS 12/24/20 [History] Pantoprazole Sodium 40 mg PO AC-BRKFST 12/24/20 [History] Thiamine [Vitamin B-1] 100 mg PO DAILY 12/24/20 [History] Vit C/E/Zn/Coppr/Lutein/Zeaxan [Preservision Areds 2 Softgel] 1 cap PO DAILY 12/24/20 [History] Atorvastatin [Lipitor] 20 mg PO HS 10/15/21 [History] Escitalopram Oxalate [Lexapro] 20 mg PO DAILY 10/15/21 [History] Fluticasone Propion/Salmeterol [Wixela 250-50 Inhub] 1 puff INHALATION RT-BID 10/15/21 [History] Lidocaine 4% Cream [Lmx 4] 1 applic TOPICAL DAILY 10/15/21 [History] Ipratropium-Albuterol Nebulize [Duoneb 0.5 mg-3 mg/3 ml Soln] 3 ml INHALATION RT-QID #20 dose 10/19/21 [Rx] Metoprolol Tartrate [Lopressor] 12.5 mg PO BID 11/03/21 [History] Budesonide-Formot 160-4.5 Mcg [Symbicort 160-4.5 Mcg Inhaler] 2 puff INHALATION RT-BID 30 Days #1 each 02/24/22 [Rx] Furosemide [Lasix] 40 mg PO DAILY 30 Days #60 tablet 02/24/22 [Rx] Magnesium Oxide [Mag-Ox] 400 mg PO BID 30 Days #60 tab 02/24/22 [Rx] Follow up Appointment(s)/Referral(s): Evan Santana MD [STAFF PHYSICIAN] - 03/03/22 10:15 am [facility],Clinic [Primary Care Provider] - 1-2 days Ambulatory/Diagnostic Orders: Complete Blood Count w/diff [LAB.AMB] Time Frame: 3 Days, Location: None Selected Patient Instructions/Handouts: Heart Attack (DC), Heart Failure (DC) Activity/Diet/Wound Care/Special Instructions: Activity Limited until follow-up Follow-up with primary care provider on discharge Follow-up with pulmonary and cardiology outpatient Continue taking medications as prescribed Continue current diet Recommend repeat labs in 2-3 days Discharge Disposition: HOME SELF-CARE
== END 2022-02-24 17:00 | disposition home or self-care (01) | DRG 291 ==
LOC: EC 00:58 → 3SCARD 06:40 → 2SICU 11:31 → OBSVTOIN 12:44 → 3SCARD 02-21 04:07
PROVIDERS: ADMIT Internal Medicine; ATTEND Internal Medicine
DX: I11.0 Hypertensive heart disease with heart failure (principal); I50.33 Acute on chronic diastolic (congestive) heart failure; J96.21 Acute and chronic respiratory failure with hypoxia; J96.22 Acute and chronic respiratory failure with hypercapnia; I48.21 Permanent atrial fibrillation; M48.56XA Collapsed vertebra, not elsewhere classified, lumbar region, initial encounter for fracture; I25.10 Atherosclerotic heart disease of native coronary artery without angina pectoris; H91.90 Unspecified hearing loss, unspecified ear; E03.9 Hypothyroidism, unspecified; E78.5 Hyperlipidemia, unspecified; K70.30 Alcoholic cirrhosis of liver without ascites; F10.20 Alcohol dependence, uncomplicated; F17.210 Nicotine dependence, cigarettes, uncomplicated; I25.2 Old myocardial infarction; Z79.01 Long term (current) use of anticoagulants; I27.20 Pulmonary hypertension, unspecified; J44.9 Chronic obstructive pulmonary disease, unspecified; I07.1 Rheumatic tricuspid insufficiency; K21.9 Gastro-esophageal reflux disease without esophagitis; Z98.61 Coronary angioplasty status; S01.01XA Laceration without foreign body of scalp, initial encounter; W18.30XA Fall on same level, unspecified, initial encounter; Z99.81 Dependence on supplemental oxygen; Z95.1 Presence of aortocoronary bypass graft; Z95.3 Presence of xenogenic heart valve; Y92.000 Kitchen of unspecified non-institutional (private) residence as the place of occurrence of the external cause; Z66 Do not resuscitate; Z79.51 Long term (current) use of inhaled steroids; Z79.82 Long term (current) use of aspirin; Z79.890 Hormone replacement therapy; Z79.899 Other long term (current) drug therapy; Z82.49 Family history of ischemic heart disease and other diseases of the circulatory system; Z28.310 Unvaccinated for COVID-19; Z83.3 Family history of diabetes mellitus; Z85.46 Personal history of malignant neoplasm of prostate; Z86.73 Personal history of transient ischemic attack (TIA), and cerebral infarction without residual deficits; Z87.01 Personal history of pneumonia (recurrent); Z90.79 Acquired absence of other genital organ(s); R77.8 Other specified abnormalities of plasma proteins; Z86.19 Personal history of other infectious and parasitic diseases; Z71.3 Dietary counseling and surveillance
CPT/HCPCS: 36415; 71045; 80048; 83735; 83880; 84484; 85025; 87040; 93005; 93306; 94640; 94660; 94760; 96374; 96375; 99285

== ENCOUNTER 2022-05-17 10:00 | Inpatient (IN) | payer OTHER, MEDICARE, BC ==
[2022-05-17 11:47] LABS: INR 1.3 (<1.2); Prothrombin Time 13.9 sec (9.0-12.0)
--- NOTE | 2022-05-17 11:56 | XR ---
EXAMINATION TYPE: XR chest 2V DATE OF EXAM: 05/17/2022 11:50 AM COMPARISON: Chest radiographs from 02/22/2022. TECHNIQUE: XR chest 2V Frontal and lateral views of the chest. CLINICAL INDICATION:Male, 71 years old with history of SOB; FINDINGS: Lungs/Pleura: Mild pulmonary vascular congestion. Trace bilateral pleural effusions. There is flatten ing of the hemidiaphragms and increased AP diameter suggestive of COPD changes. Heart/mediastinum: Cardiomediastinal silhouette is enlarged and stable. Atherosclerotic calcificatio ns are seen in the aorta. Postsurgical changes with left atrial appendage clip and valvular prosthesi s. Musculoskeletal: No acute osseous pathology. Other findings: Surgical clips redemonstrated along the right upper chest. IMPRESSION: Cardiomegaly and mild pulmonary vasculature congestion with trace bilateral pleural effusions. Findin gs suggest CHF exacerbation.
[2022-05-17 12:02] LABS: Albumin 4.1 g/dL (3.5-5.0); Calcium 8.4 mg/dL (8.4-10.2); Potassium 4.2 mmol/L (3.5-5.1); Total Protein 7.4 g/dL (6.3-8.2)
--- NOTE | 2022-05-17 12:26 | ED ---
General Adult HPI - General Chief complaint: Shortness of Breath Stated complaint: Pneumonia Time Seen by Provider: 05/17/22 12:15 Source: patient, family, RN notes reviewed, old records reviewed Mode of arrival: wheelchair Limitations: no limitations - History of Present Illness Initial comments: This is a 71-year-old male with past medical history significant for COPD congestive heart failure and aortic valve replacement. Patient comes in today because she's had 3 days of cough and difficulty breathing. Patient went to see her primary medical care doctor today and they sent him to the hospital. Patient denies any fever. Patient states the cough is productive. Patient's son states he's had pneumonia recently so he is worried that his father's car. Patient states he did get the COVID vaccine but did not get any boosters. Patient continues to smoke. Patient denies any chest pain palpitations does have a history of atrial fibrillation. Patient denies any increased swelling to legs he says his swelling currently is baseline. - Related Data Home Medications Medication Instructions Recorded Confirmed Apixaban [Eliquis] 5 mg PO BID 08/04/20 02/20/22 Levothyroxine Sodium [Euthyrox] 50 mcg PO DAILY 08/04/20 02/20/22 Aspirin EC [Ecotrin Low Dose] 81 mg PO DAILY 12/24/20 02/20/22 Mirtazapine [Remeron] 15 mg PO HS 12/24/20 02/20/22 Pantoprazole Sodium 40 mg PO AC-BRKFST 12/24/20 02/20/22 Thiamine [Vitamin B-1] 100 mg PO DAILY 12/24/20 02/20/22 Vit C/E/Zn/Coppr/Lutein/Zeaxan 1 cap PO DAILY 12/24/20 02/20/22 [Preservision Areds 2 Softgel] Atorvastatin [Lipitor] 20 mg PO HS 10/15/21 02/20/22 Escitalopram Oxalate [Lexapro] 20 mg PO DAILY 10/15/21 02/20/22 Fluticasone Propion/Salmeterol 1 puff INHALATION RT-BID 10/15/21 02/20/22 [Wixela 250-50 Inhub] Lidocaine 4% Cream [Lmx 4] 1 applic TOPICAL DAILY 10/15/21 02/20/22 Metoprolol Tartrate [Lopressor] 12.5 mg PO BID 11/03/21 02/20/22 Previous Rx's Medication Instructions Recorded Ipratropium-Albuterol Nebulize 3 ml INHALATION RT-QID #20 dose 10/19/21 [Duoneb 0.5 mg-3 mg/3 ml Soln] Budesonide-Formot 160-4.5 Mcg 2 puff INHALATION RT-BID 30 Days 02/24/22 [Symbicort 160-4.5 Mcg Inhaler] #1 each Furosemide [Lasix] 40 mg PO DAILY 30 Days #60 tablet 02/24/22 Magnesium Oxide [Mag-Ox] 400 mg PO BID 30 Days #60 tab 02/24/22 Allergies Allergy/AdvReac Type Severity Reaction Status Date / Time primidone Allergy Rash/Hives Verified 02/20/22 11:47 gabapentin AdvReac DIZZINESS Verified 02/20/22 11:47 Review of Systems ROS Statement: Those systems with pertinent positive or pertinent negative responses have been documented in the HPI. ROS Other: All systems not noted in ROS Statement are negative. Past Medical History Past Medical History: Atrial Fibrillation, Atrial Flutter, Coronary Artery Disease (CAD), Cancer, Chest Pain / Angina, Heart Failure, COPD, CVA/TIA, Deep Vein Thrombosis (DVT), Eye Disorder, GERD/Reflux, GI Bleed, Hearing Disorder / Deafness, Hyperlipidemia, Hypertension, Liver Disease, Memory Impairment, Pneumonia, Vascular Disorder Additional Past Medical History / Comment(s): Stable dissection of the descending aorta, chronic atrial fibrillation and is anticoagulated with warfarin, aortic valve replacement with a bioprosthetic valve, pulmonary hypertension, chronic hypoxic respiratory failure with home O2 at , previous pneumonia 2008 and 2014, prostate cancer with prostatectomy, DVT R lower leg x2, macular degeneration L eye, left arm fracture, chronic tinnitus in both ears, gastritis, lower GIm bleed, UTI, liver cirrhosis related to history of alcoholism, hepatitis C at age 14yrs., feeding tube, alcoholism Last Myocardial Infarction Date:: unsure History of Any Multi-Drug Resistant Organisms: None Reported Date of last positivie culture/infection: None MDRO Source:: None Past Surgical History: Cardiac Valve Replacement, Cholecystectomy, Coronary Bypass/CABG, Heart Catheterization, Heart Catheterization With Stent, Hernia Repair, Orthopedic Surgery, Prostate Surgery Additional Past Surgical History / Comment(s): Aortic valve replacement, prostatectomy, right inguinal hernia repair 2, bilateral knee arthroscopy, colonoscopy/polypectomy, EGD, right leg varicose vein stripping, removal of a blood clot from the right lower extremity, cervical surgery d/t injury in [place] and removal of shrapnel's from the right shoulder, feeding tube Past Anesthesia/Blood Transfusion Reactions: No Reported Reaction Date of Last Stent Placement:: 2016 Past Psychological History: No Psychological Hx Reported Smoking Status: Current some day smoker Past Alcohol Use History: Rare Past Drug Use History: None Reported - Past Family History Mother Family Medical History: Diabetes Mellitus Additional Family Medical History / Comment(s): Mother at age 74 from diabetic complications. Father Family Medical History: Congestive Heart Failure (CHF) Additional Family Medical History / Comment(s): Father at age 91 yrs. General Exam - General Exam Comments Initial Comments: GENERAL: Patient is well-developed and well-nourished. Patient is nontoxic and well- hydrated and is in mild distress. ENT: Neck is soft and supple. No significant lymphadenopathy is noted. Oropharynx is clear. Moist mucous membranes. Neck has full range of motion without eliciting any pain. EYES: The sclera were anicteric and conjunctiva were pink and moist. Extraocular movements were intact and pupils were equal round and reactive to light. Eyelids were unremarkable. PULMONARY: Unlabored respirations. Good breath sounds bilaterally. No audible rales rhonchi or wheezing was noted. CARDIOVASCULAR: There is a regular rate and rhythm without any murmurs gallops or rubs. ABDOMEN: Soft and nontender with normal bowel sounds. No palpable organomegaly was no digna. There is no palpable pulsatile mass. SKIN: Skin is clear with no lesions or rashes and otherwise unremarkable. NEUROLOGIC: Patient is alert and oriented x3. Cranial nerves II through XII are grossly intact. Motor and sensory are also intact. Normal speech, volume and content. Symmetrical smile. MUSCULOSKELETAL: Normal extremities with adequate strength and full range of motion. LYMPHATICS: No significant lymphadenopathy is noted PSYCHIATRIC: Normal psychiatric evaluation. Limitations: no limitations Course Vital Signs 05/17/22 05/17/22 10:34 12:44 Temperature 98.2 F Pulse Rate 72 64 Respiratory 22 18 Rate Blood Pressure 119/67 156/79 O2 Sat by Pulse 96 99 Oximetry Medical Decision Making - Medical Decision Making EKG shows atrial fibrillation 74 bpm QRS 108 QT interval 42 QTC is 4:30. Patient's EKG shows inverted T waves in V V1 and V2 and V3. These changes were seen on a previous EKG Chest x-ray shows pulmonary edema. Patient received Lasix in the emergency department. I was found physicians they agreed to admit the patient admitted the patient I wrote admitting orders. I continued Lasix on the floor. - Lab Data Result diagrams: 05/17/22 10:47 05/17/22 10:47 Lab Results 05/17/22 05/17/22 05/17/22 Range/Units 10:47 10:47 10:47 WBC 4.3 (3.8-10.6) k/uL RBC 3.94 L (4.30-5.90) m/uL Hgb 11.0 L (13.0-17.5) gm/dL Hct 35.0 L (39.0-53.0) % MCV 88.9 (80.0-100.0) fL MCH 27.9 (25.0-35.0) pg MCHC 31.4 (31.0-37.0) g/dL RDW 15.2 (11.5-15.5) % Plt Count 101 L (150-450) k/uL MPV 9.3 Neutrophils % 67 % Lymphocytes % 17 % Monocytes % 10 % Eosinophils % 2 % Basophils % 1 % Neutrophils # 2.9 (1.3-7.7) k/uL Lymphocytes # 0.8 L (1.0-4.8) k/uL Monocytes # 0.4 (0-1.0) k/uL Eosinophils # 0.1 (0-0.7) k/uL Basophils # 0.0 (0-0.2) k/uL Hypochromasia Marked PT 13.9 H (9.0-12.0) sec INR 1.3 H (<1.2) Sodium 139 (137-145) mmol/L Potassium 4.2 (3.5-5.1) mmol/L Chloride 90 L (98-107) mmol/L Carbon Dioxide 39 H (22-30) mmol/L Anion Gap 10 mmol/L BUN 18 (9-20) mg/dL Creatinine 1.28 H (0.66-1.25) mg/dL Est GFR (CKD-EPI)AfAm 64 (>60 ml/min/1.73 sqM) Est GFR (CKD-EPI)NonAf 55 (>60 ml/min/1.73 sqM) Glucose 98 (74-99) mg/dL Plasma Lactic Acid Silvino (0.7-2.0) mmol/L Calcium 8.4 (8.4-10.2) mg/dL Total Bilirubin 1.0 (0.2-1.3) mg/dL AST 27 (17-59) U/L ALT 12 (4-49) U/L Alkaline Phosphatase 148 H (38-126) U/L NT-Pro-B Natriuret Pep pg/mL Total Protein 7.4 (6.3-8.2) g/dL Albumin 4.1 (3.5-5.0) g/dL Coronavirus (PCR) (Not Detectd) Influenza Type A RNA (Not Detectd) Influenza Type B (PCR) (Not Detectd) 05/17/22 05/17/22 05/17/22 Range/Units 10:47 11:01 11:01 WBC (3.8-10.6) k/uL RBC (4.30-5.90) m/uL Hgb (13.0-17.5) gm/dL Hct (39.0-53.0) % MCV (80.0-100.0) fL MCH (25.0-35.0) pg MCHC (31.0-37.0) g/dL RDW (11.5-15.5) % Plt Count (150-450) k/uL MPV Neutrophils % % Lymphocytes % % Monocytes % % Eosinophils % % Basophils % % Neutrophils # (1.3-7.7) k/uL Lymphocytes # (1.0-4.8) k/uL Monocytes # (0-1.0) k/uL Eosinophils # (0-0.7) k/uL Basophils # (0-0.2) k/uL Hypochromasia PT (9.0-12.0) sec INR (<1.2) Sodium (137-145) mmol/L Potassium (3.5-5.1) mmol/L Chloride (98-107) mmol/L Carbon Dioxide (22-30) mmol/L Anion Gap mmol/L BUN (9-20) mg/dL Creatinine (0.66-1.25) mg/dL Est GFR (CKD-EPI)AfAm (>60 ml/min/1.73 sqM) Est GFR (CKD-EPI)NonAf (>60 ml/min/1.73 sqM) Glucose (74-99) mg/dL Plasma Lactic Acid Silvino 2.2 H* (0.7-2.0) mmol/L Calcium (8.4-10.2) mg/dL Total Bilirubin (0.2-1.3) mg/dL AST (17-59) U/L ALT (4-49) U/L Alkaline Phosphatase (38-126) U/L NT-Pro-B Natriuret Pep pg/mL Total Protein (6.3-8.2) g/dL Albumin (3.5-5.0) g/dL Coronavirus (PCR) Not Detected (Not Detectd) Influenza Type A RNA Not Detected (Not Detectd) Influenza Type B (PCR) Not Detected (Not Detectd) 05/17/22 Range/Units 12:47 WBC (3.8-10.6) k/uL RBC (4.30-5.90) m/uL Hgb (13.0-17.5) gm/dL Hct (39.0-53.0) % MCV (80.0-100.0) fL MCH (25.0-35.0) pg MCHC (31.0-37.0) g/dL RDW (11.5-15.5) % Plt Count (150-450) k/uL MPV Neutrophils % % Lymphocytes % % Monocytes % % Eosinophils % % Basophils % % Neutrophils # (1.3-7.7) k/uL Lymphocytes # (1.0-4.8) k/uL Monocytes # (0-1.0) k/uL Eosinophils # (0-0.7) k/uL Basophils # (0-0.2) k/uL Hypochromasia PT (9.0-12.0) sec INR (<1.2) Sodium (137-145) mmol/L Potassium (3.5-5.1) mmol/L Chloride (98-107) mmol/L Carbon Dioxide (22-30) mmol/L Anion Gap mmol/L BUN (9-20) mg/dL Creatinine (0.66-1.25) mg/dL Est GFR (CKD-EPI)AfAm (>60 ml/min/1.73 sqM) Est GFR (CKD-EPI)NonAf (>60 ml/min/1.73 sqM) Glucose (74-99) mg/dL Plasma Lactic Acid Silvino (0.7-2.0) mmol/L Calcium (8.4-10.2) mg/dL Total Bilirubin (0.2-1.3) mg/dL AST (17-59) U/L ALT (4-49) U/L Alkaline Phosphatase (38-126) U/L NT-Pro-B Natriuret Pep 5460 pg/mL Total Protein (6.3-8.2) g/dL Albumin (3.5-5.0) g/dL Coronavirus (PCR) (Not Detectd) Influenza Type A RNA (Not Detectd) Influenza Type B (PCR) (Not Detectd) Disposition Clinical Impression: Acute pulmonary edema Disposition: ADMITTED IP TO THIS HOSP Referrals: [facility],Clinic [Primary Care Provider] - 1-2 days Time of Disposition: 13:27
[2022-05-17 12:39] LABS: Basophils % (A) 1 %; Eosinophils # (A) 0.1 k/uL (0-0.7); Eosinophils % (A) 2 %; Hypochromasia Marked; Lymphocytes # (A) 0.8 k/uL (1.0-4.8); Lymphocytes % (A) 17 %; MCH 27.9 pg (25.0-35.0); MCHC 31.4 g/dL (31.0-37.0); MCV 88.9 fL (80.0-100.0); Mean Platelet Volume 9.3; Monocytes # (A) 0.4 k/uL (0-1.0); Monocytes % (A) 10 %; Neutrophils # (A) 2.9 k/uL (1.3-7.7); Neutrophils % (A) 67 %; Platelet Count 101 k/uL (150-450); RBC 3.94 m/uL (4.30-5.90); RDW 15.2 % (11.5-15.5); WBC 4.3 k/uL (3.8-10.6)
[2022-05-17] MEDS ORDERED: FUROSEMIDE 10 MG/ML 4 ML VIAL IV STA (13:21)
--- NOTE | 2022-05-17 15:23 | P.HPIM ---
History of Present Illness H&P Date: 05/17/22 Chief Complaint: SOB Patient is a 71-year-old male with a history of systolic CHF 45-50%, COPD, permanent atrial fibrillation, CAD status post CABG and PCI, bioprosthetic AVR, liver cirrhosis, prostate cancer status post prostatectomy, hypothyroidism, dyslipidemia presenting with shortness of breath. Patient is poor historian. He claims that he has shortness of breath. However, he is unsure whether he is having any dyspnea on exertion, chest pain, orthopnea, PND. He claims that his son dropped him off at the ER for checkup. He does have occasional cough and sputum production. He denies any palpitations, lightheadedness, abdominal pain, urinary or bowel complaints. In the ED, patient was saturating well on 2 L. He does not wear oxygen at home. Rest of the vitals were otherwise within normal limits. His lab work was consistent with mild normocytic anemia of 11, thrombocytopenia of 101. Lactate was elevated at 2.2. ProBNP was elevated at 5460. COVID-19 negative, influenza negative. Chest x-ray showed mild pulmonary vascular congestion, trace bilateral pleural effusion. He was given 40 of IV Lasix in the ED. Pertinent positives and negatives as discussed in HPI, a complete review of systems was performed and all other systems are negative. Patient seen and examined at bedside. Vital signs reviewed General: nontoxic, no distress, appears at stated age Derm: warm, dry Head: atraumatic, normocephalic, symmetric Eyes: EOMI, no lid lag, anicteric sclera, pupils equal round reactive to light ENT: Nose and ears atraumatic, no thrush, no pharyngeal erythema Neck: No thyromegaly Mouth: no lip lesion, mucus membranes moist Cardiovascular: S1S2 reg, no murmur, trace edema Lungs: Scattered end expiratory wheezes, fine rales mostly at the bases, no accessory muscle use, 2 L NC Abdominal: soft, nontender to palpation, no guarding, no appreciable organomegaly, normal bowel sounds Ext: no gross muscle atrophy, muscle strength muscle strength 5 out of 5 in all 4 extremities, no contractures Neuro: CN II-XII grossly intact, light touch intact all 4 extremities, finger to nose within normal limits Psych: Alert, oriented, appropriate affect Assessment/Plan: Acute hypoxic respiratory failure Acute on chronic systolic CHF exacerbation Acute COPD exacerbation -Bronchodilators, steroids -Lasix IV -Monitor urine output -Strict I's and O's Lactic acidosis -Possibly in the setting of liver cirrhosis -See if it improves with diuretics Permanent atrial fibrillation -rate controlled -Continue beta meli and anti-correlation Nicotine dependence -Smoking cessation counselingSO Chronic medical problems: CAD Dyslipidemia Hypothyroidism -Continue home medications The patient is admitted with an anticipated less than 2 midnight stay for evaluation of acute hypoxic respiratory failure. CODE STATUS: Full code DVT prophylaxis: joe Anticipated discharge date: 05/18/[address]: Home A total of 47 minutes was spent on the care of this complex patient more than 50% of the time was spent in counseling and care coordination. Past Medical History Past Medical History: Atrial Fibrillation, Atrial Flutter, Coronary Artery Disease (CAD), Cancer, Chest Pain / Angina, Heart Failure, COPD, CVA/TIA, Deep V ein Thrombosis (DVT), Eye Disorder, GERD/Reflux, GI Bleed, Hearing Disorder / Deafness, Hyperlipidemia, Hypertension, Liver Disease, Memory Impairment, Pneumonia, Vascular Disorder Additional Past Medical History / Comment(s): Stable dissection of the descending aorta, chronic atrial fibrillation and is anticoagulated with warfarin, aortic valve replacement with a bioprosthetic valve, pulmonary hypertension, chronic hypoxic respiratory failure with home O2 at , previous pneumonia 2008 and 2014, prostate cancer with prostatectomy, DVT R lower leg x2, macular degeneration L eye, left arm fracture, chronic tinnitus in both ears, gastritis, lower GIm bleed, UTI, liver cirrhosis related to history of alcoholism, hepatitis C at age 14yrs., feeding tube, alcoholism Last Myocardial Infarction Date:: unsure History of Any Multi-Drug Resistant Organisms: None Reported Date of last positivie culture/infection: None MDRO Source:: None Past Surgical History: Cardiac Valve Replacement, Cholecystectomy, Coronary Bypass/CABG, Heart Catheterization, Heart Catheterization With Stent, Hernia Repair, Orthopedic Surgery, Prostate Surgery Additional Past Surgical History / Comment(s): Aortic valve replacement, prostatectomy, right inguinal hernia repair 2, bilateral knee arthroscopy, colonoscopy/polypectomy, EGD, right leg varicose vein stripping, removal of a blood clot from the right lower extremity, cervical surgery d/t injury in [place] and removal of shrapnel's from the right shoulder, feeding tube Past Anesthesia/Blood Transfusion Reactions: No Reported Reaction Date of Last Stent Placement:: 2016 Past Psychological History: No Psychological Hx Reported Smoking Status: Current some day smoker Past Alcohol Use History: Rare Past Drug Use History: None Reported - Past Family History Mother Family Medical History: Diabetes Mellitus Additional Family Medical History / Comment(s): Mother at age 74 from diabetic complications. Father Family Medical History: Congestive Heart Failure (CHF) Additional Family Medical History / Comment(s): Father at age 91 yrs. Medications and Allergies Home Medications Medication Instructions Recorded Confirmed Type Apixaban [Eliquis] 5 mg PO BID 08/04/20 05/17/22 History Levothyroxine Sodium [Euthyrox] 50 mcg PO DAILY 08/04/20 05/17/22 History Aspirin EC [Ecotrin Low Dose] 81 mg PO DAILY 12/24/20 05/17/22 History Mirtazapine [Remeron] 15 mg PO HS 12/24/20 05/17/22 History Pantoprazole Sodium 40 mg PO AC-BRKFST 12/24/20 05/17/22 History Thiamine [Vitamin B-1] 100 mg PO DAILY 12/24/20 05/17/22 History Atorvastatin [Lipitor] 20 mg PO HS 10/15/21 05/17/22 History Escitalopram Oxalate [Lexapro] 20 mg PO DAILY 10/15/21 05/17/22 History Fluticasone Propion/Salmeterol 1 puff INHALATION RT-BID 10/15/21 05/17/22 History [Wixela 250-50 Inhub] Lidocaine 4% Cream [Lmx 4] 1 applic TOPICAL DAILY PRN 10/15/21 05/17/22 History Metoprolol Tartrate [Lopressor] 12.5 mg PO BID 11/03/21 05/17/22 History Albuterol Nebulized [Ventolin 2.5 mg INHALATION RT-Q4H 05/17/22 05/17/22 History Nebulized] Lidocaine 5% Patch [Lidoderm] 1 patch TOPICAL DAILY PRN 05/17/22 05/17/22 History Allergies Allergy/AdvReac Type Severity Reaction Status Date / Time primidone Allergy Rash/Hives Verified 05/17/22 15:11 gabapentin AdvReac DIZZINESS Verified 05/17/22 15:11 Physical Exam Vitals: Vital Signs Temp Pulse Resp BP Pulse Ox 05/17/22 14:28 67 18 98 05/17/22 12:44 64 18 156/79 99 05/17/22 10:34 98.2 F 72 22 119/67 96 Intake and Output 05/17/22 05/17/22 05/17/22 06:59 14:59 22:59 Other: Weight 78.018 kg Results CBC & Chem 7: 05/17/22 10:47 05/17/22 10:47 Labs: Abnormal Lab Results - Last 24 Hours (Table) 05/17/22 05/17/22 05/17/22 Range/Units 10:47 10:47 10:47 RBC 3.94 L (4.30-5.90) m/uL Hgb 11.0 L (13.0-17.5) gm/dL Hct 35.0 L (39.0-53.0) % Plt Count 101 L (150-450) k/uL Lymphocytes # 0.8 L (1.0-4.8) k/uL PT 13.9 H (9.0-12.0) sec INR 1.3 H (<1.2) Chloride 90 L (98-107) mmol/L Carbon Dioxide 39 H (22-30) mmol/L Creatinine 1.28 H (0.66-1.25) mg/dL Plasma Lactic Acid Silvino (0.7-2.0) mmol/L Alkaline Phosphatase 148 H (38-126) U/L 05/17/22 Range/Units 10:47 RBC (4.30-5.90) m/uL Hgb (13.0-17.5) gm/dL Hct (39.0-53.0) % Plt Count (150-450) k/uL Lymphocytes # (1.0-4.8) k/uL PT (9.0-12.0) sec INR (<1.2) Chloride (98-107) mmol/L Carbon Dioxide (22-30) mmol/L Creatinine (0.66-1.25) mg/dL Plasma Lactic Acid Silvino 2.2 H* (0.7-2.0) mmol/L Alkaline Phosphatase (38-126) U/L
[2022-05-17] MEDS: predniSONE 20 MG TAB PO SCH (15:44)
[2022-05-17] MEDS: ALBUTEROL NEBULIZED 2.5 MG/3 ML INHALATION SCH ×3 (16:03→23:57)
[2022-05-17] MEDS: NITROGLYCERIN OINT 1 INCH/GM PACKET TOPICAL SCH (18:36)
[2022-05-17] MEDS: SYMBICORT 80-4.5 MCG INHALER INHALATION SCH (20:08)
[2022-05-18] MEDS: METOPROLOL TARTRATE 12.5 MG TAB PO SCH ×3 (00:39→21:23)
[2022-05-18] MEDS: APIXABAN 5 MG TAB PO SCH ×3 (00:39→21:22)
[2022-05-18] MEDS: NITROGLYCERIN OINT 1 INCH/GM PACKET TOPICAL SCH ×5 (00:39→21:23)
[2022-05-18] MEDS: ATORVASTATIN 20 MG TAB PO SCH ×2 (00:39→21:22)
[2022-05-18] MEDS: FUROSEMIDE 10 MG/ML 4 ML VIAL IV SCH ×4 (00:40→21:23)
[2022-05-18] MEDS: MIRTAZAPINE 15 MG TAB PO SCH ×2 (01:08→21:22)
[2022-05-18] MEDS: ALBUTEROL NEBULIZED 2.5 MG/3 ML INHALATION SCH ×6 (03:44→23:43)
[2022-05-18] MEDS: LEVOTHYROXINE 50 MCG TAB PO SCH (05:27)
[2022-05-18] MEDS: ASPIRIN 81 MG PO SCH (08:06)
[2022-05-18] MEDS: PANTOPRAZOLE 40 MG TABLET PO SCH (08:06)
[2022-05-18] MEDS: THIAMINE 100 MG TAB PO SCH (08:06)
[2022-05-18] MEDS: predniSONE 20 MG TAB PO SCH (08:06)
[2022-05-18] MEDS: ESCITALOPRAM 20 MG TAB PO SCH (08:14)
[2022-05-18] MEDS: SYMBICORT 80-4.5 MCG INHALER INHALATION SCH ×2 (08:35→19:56)
[2022-05-18 08:56] LABS: Basophils # (A) 0.02 X 10*3/uL (0.00-0.10); Basophils % (A) 0.6 %; Eosinophils # (A) 0 X 10*3/uL (0.04-0.35); Eosinophils % (A) 0 %; HCT 32.2 % (39.6-50.0); HGB 9.9 g/dL (13.0-17.0); Immature Grans, Automated 0.3 %; Lymphocytes # (A) 0.56 X 10*3/uL (0.90-5.00); Lymphocytes % (A) 16.8 %; MCH 27.1 pg (27.0-32.0); MCHC 30.7 g/dL (32.0-37.0); MCV 88.2 fL (80.0-97.0); Mean Platelet Volume 12.4 fL (9.5-12.2); Monocytes # (A) 0.38 X 10*3/uL (0.20-1.00); Monocytes % (A) 11.4 %; NRBC Per 100 WBC 0 /100 WBCS (0.0-0.0); Neutrophils # (A) 2.37 X 10*3/uL (1.80-7.70); Neutrophils % (A) 70.9 %; Platelet Count 118 X 10*3/uL (140-440); RBC 3.65 X 10*6/uL (4.40-5.60); RDW 15.9 % (11.5-14.5); WBC 3.34 X 10*3/uL (4.50-10.00)
[2022-05-18 09:04] LABS: Magnesium 1.6 mg/dL (1.5-2.4)
[2022-05-18 09:10] LABS: Anion Gap 9.3 mmol/L (10.00-18.00); BUN/Creat Ratio 12.78 Ratio (12.00-20.00); Blood Urea Nitrogen 16.1 mg/dL (9.0-27.0); Calcium 8.6 mg/dL (8.7-10.3); Carbon Dioxide 40.8 mmol/L (20.0-27.5); Non-African American GFR(CKD) 56.2 (60.0-200.0)
[2022-05-18 09:27] LABS: African American GFR (CKD) 65.2 (60.0-200.0)
[2022-05-18] MEDS: MAGNESIUM SULFATE-D5W PMX 1 GM in DEXTROSE/WATER 1 100ML.BAG IVPB SCH ×3 (11:52→15:53)
--- NOTE | 2022-05-18 12:37 | P.PN ---
Subjective Progress Note Date: 05/18/22 Hospital course: Patient is a very pleasant 71-year-old male with a past medical history of CAD status post CABG, history of bioprosthetic aortic valve replacement, chronic diastolic heart failure with previously known EF of 50-55%, Permanent atrial fibrillation on anticoagulation with Eliquis, history of pulmonary hypertension, COPD, hypertension, hyperlipidemia, and TIA. Patient presented to the emergency department with the chief complaint of increased shortness of breath, cough, EKG completed in the emergency department revealing atrial fibrillation with a controlled ventricular rate of 74 bpm with T-wave inversion in leads V2, V3, aVF, and V1 through V3. Unchanged from previous EKG completed on 02/20/22. CBC revealed mild normocytic normochromic anemia with hemoglobin of 11.0 and thrombocytopenia with platelet count of 101. CMP revealed hypercarbia with carbon dioxide of 39 and elevated alkaline phosphatase of 148. Lactate elevated at 2.2. Influenza A, influenza B, and Covid PCR were negative. Chest x-ray revealing cardiomegaly and mild pulmonary vascular congestion with trace bilateral pleural effusions consistent with CHF exacerbation. Patient was admitted under our services for CHF exacerbation with consultation to cardiology. Physical exam: Patient was seen and fully evaluated at bedside this morning. He was resting comfortably and reports feeling as though he is breathing slightly better than he did upon arrival. Respirations were even and unlabored, lungs were diminished and patient continues to have bilateral expiratory wheezes. Patient to continue with IV diuresis at this time with plans for likely discharge within the next 24-48 hours. Documented output over the past 24 hours was 1200 mL. Patient had resolution of lactic acidosis after administration of Lasix. Morning labs reviewed revealing aldrich cytopenia with WBC count of 3.34, hemoglobin of 9.9, and platelet count of 118. Carbon dioxide 40.8 and magnesium of 1.6. Vital signs reviewed and stable. General: Nontoxic, no distress and appears stated age. Derm: Skin warm and dry, normal coloration for ethnicity. Head: Atraumatic, normocephalic and symmetric. Eyes: EOMs intact, no lid lag, and anicteric sclera Mouth: no lip lesions, mucus membranes moist Cardiovascular: Irregularly irregular, systolic murmur, positive posterior tibial pulses bilaterally, and cap refill < 2 seconds. Lungs: Respirations even, regular, and unlabored on room air. Lungs diminished with expiratory wheezes bilaterally, no accessory muscle usage. Abdominal: soft, nontender to palpation, no guarding, no appreciable organomegaly Ext: ROM intact. No gross muscle atrophy, 1+ lower extremity edema, no contractures Neuro: Speech clear, face symmetrical and CN II-XII grossly intact with no noted focal neuro deficits Psych: Alert and oriented to person, place, time, and situation. Appropriate and pleasant affect. Assessment and Plan of Care: Acute exacerbation of chronic diastolic heart failure with previously known EF 50-55% Permanent Atrial fibrillation Bioprosthetic aortic valve History of pulmonary hypertension COPD, not in acute exacerbation -Cardiology consult -Telemetry monitoring -ProBNP 5416 -Daily weights -Close monitoring of I's and O's -Cardiac diet -Lasix -Continue daily cardiac medication regimen with Eliquis, Aspirin, atorvastatin, and metoprolol -Continued close monitoring of electrolytes while diuresing. -Echocardiogram completed 02/20/22 revealed an EF of 50-55% with mild to moderate tricuspid regurgitation and mild pulmonary hypertension. Hypomagnesemia -Replaced, continue to monitor with repeat a.m. labs and replace abnormal electrolyte values as needed. Hypothyroidism -Continue daily medication regimen with levothyroxine. Hypertension -Monitor vital signs and continue daily medication regimen with metoprolol. Hyperlipidemia Continue daily medication regimen with atorvastatin. Lactic acidosis Likely resulting from liver cirrhosis, resolved with administration of IV diuretic CODE STATUS: Full code DVT prophylaxis: Eliquis Discussed with: Patient and RN Anticipated discharge date: 24-[address]: Home A total of 34 minutes was spent on the care of this complex patient more than 50% of the time was spent in counseling and care coordination. Objective - Vital Signs Vital signs: Vital Signs Temp 98.2 F 05/18/22 10: Pulse 72 05/18/22 11:29 Resp 18 05/18/22 11:29 BP 130/69 05/18/22 10:22 Pulse Ox 96 05/18/22 10:22 FiO2 Intake & Output 05/17/22 05/18/22 05/18/22 18:59 06:59 18:59 Intake Total 540 Output Total 600 Balance 540 -600 Weight 78.018 kg 87 kg Intake: Oral 540 Output: Urine 600 Other: Voiding Method Toilet Urinal Bedside Commode Urinal # Voids 3 2 - Labs CBC & Chem 7: 05/18/22 05:23 05/18/22 05:23 Labs: Abnormal Lab Results - Last 24 Hours (Table) 05/17/22 05/17/22 05/17/22 Range/Units 10:47 10:47 10:47 WBC (4.50-10.00) X 10*3/uL RBC 3.94 L (4.30-5.90) m/uL Hgb 11.0 L (13.0-17.5) gm/dL Hct 35.0 L (39.0-53.0) % MCHC (32.0-37.0) g/dL RDW (11.5-14.5) % Plt Count 101 L (150-450) k/uL MPV (9.5-12.2) fL Lymphocytes # 0.8 L (1.0-4.8) k/uL Eosinophils # (0.04-0.35) X 10*3/uL PT 13.9 H (9.0-12.0) sec INR 1.3 H (<1.2) Chloride 90 L (98-107) mmol/L Carbon Dioxide 39 H (22-30) mmol/L Anion Gap (10.00-18.00) mmol/L Creatinine 1.28 H (0.66-1.25) mg/dL Est GFR (CKD-EPI)NonAf (60.0-200.0) Glucose (70-110) mg/dL Plasma Lactic Acid Silvino (0.7-2.0) mmol/L Calcium (8.7-10.3) mg/dL Alkaline Phosphatase 148 H (38-126) U/L 05/17/22 05/18/22 05/18/22 Range/Units 10:47 05:23 05:23 WBC 3.34 L (4.50-10.00) X 10*3/uL RBC 3.65 L (4.30-5.90) m/uL Hgb 9.9 L (13.0-17.5) gm/dL Hct 32.2 L (39.0-53.0) % MCHC 30.7 L (32.0-37.0) g/dL RDW 15.9 H (11.5-14.5) % Plt Count 118 L (150-450) k/uL MPV 12.4 H (9.5-12.2) fL Lymphocytes # 0.56 L (1.0-4.8) k/uL Eosinophils # 0 L (0.04-0.35) X 10*3/uL PT (9.0-12.0) sec INR (<1.2) Chloride 91 L (98-107) mmol/L Carbon Dioxide 40.8 H* (22-30) mmol/L Anion Gap 9.30 L (10.00-18.00) mmol/L Creatinine (0.66-1.25) mg/dL Est GFR (CKD-EPI)NonAf 56.2 L (60.0-200.0) Glucose 132 H (70-110) mg/dL Plasma Lactic Acid Silvino 2.2 H* (0.7-2.0) mmol/L Calcium 8.6 L (8.7-10.3) mg/dL Alkaline Phosphatase (38-126) U/L
[2022-05-19] MEDS: ALBUTEROL NEBULIZED 2.5 MG/3 ML INHALATION SCH ×6 (03:40→23:23)
[2022-05-19 05:33] LABS: ALT 11 U/L (4-49); African American GFR (CKD) 82 (>60 ml/min/1.73 sqM); Albumin 3.8 g/dL (3.5-5.0); Albumin/Globulin Ratio 1.2; Blood Urea Nitrogen 18 mg/dL (9-20); Calcium 7.9 mg/dL (8.4-10.2); Chloride 84 mmol/L (98-107); Globulin 3.2 g/dL; Glucose 107 mg/dL (74-99); Non-African American GFR(CKD) 71 (>60 ml/min/1.73 sqM); Sodium 136 mmol/L (137-145); Total Bilirubin 0.8 mg/dL (0.2-1.3)
[2022-05-19 05:35] LABS: HCT 32.7 % (39.0-53.0); HGB 10.4 gm/dL (13.0-17.5); Hypochromasia Moderate; MCH 27.7 pg (25.0-35.0); MCV 86.5 fL (80.0-100.0); Mean Platelet Volume 9.4; RBC 3.77 m/uL (4.30-5.90); RDW 15.5 % (11.5-15.5); WBC 7.5 k/uL (3.8-10.6)
[2022-05-19 05:38] LABS: Anion Gap 10 mmol/L
[2022-05-19 05:42] LABS: AST 32 U/L (17-59); Alkaline Phosphatase 108 U/L (38-126); Carbon Dioxide 42 mmol/L (22-30); Potassium 3.3 mmol/L (3.5-5.1)
[2022-05-19 06:01] LABS: Platelet Count 92 k/uL (150-450)
[2022-05-19] MEDS: LEVOTHYROXINE 50 MCG TAB PO SCH (06:16)
[2022-05-19] MEDS: FUROSEMIDE 10 MG/ML 4 ML VIAL IV SCH ×3 (06:16→20:51)
[2022-05-19] MEDS: SYMBICORT 80-4.5 MCG INHALER INHALATION SCH ×2 (07:50→20:41)
[2022-05-19] MEDS ORDERED: Potassium Replacement Protocol 1 EACH MISC MISCELLANE PRN (08:01)
[2022-05-19] MEDS: PANTOPRAZOLE 40 MG TABLET PO SCH (08:22)
[2022-05-19] MEDS: ASPIRIN 81 MG PO SCH (08:22)
[2022-05-19] MEDS: ESCITALOPRAM 20 MG TAB PO SCH (08:22)
[2022-05-19] MEDS: POTASSIUM CHLORIDE ER 20 MEQ TAB.ER PO SCH ×3 (08:22→14:02)
[2022-05-19] MEDS: predniSONE 20 MG TAB PO SCH (08:23)
[2022-05-19] MEDS: THIAMINE 100 MG TAB PO SCH (08:23)
[2022-05-19] MEDS: APIXABAN 5 MG TAB PO SCH ×2 (08:23→20:51)
[2022-05-19] MEDS: METOPROLOL TARTRATE 12.5 MG TAB PO SCH ×2 (08:24→20:51)
--- NOTE | 2022-05-19 08:51 | P.CRDCN ---
History of Present Illness History of present illness: This is a pleasant 71-year-old male past medical history significant for coronary artery disease status post PCI of the proximal LAD in 2017, hypertension, dyslipidemia, valvular heart disease status post aortic valve replacement, Permanent atrial fibrillation (on Eliquis), COPD and former nicotine dependence, laparoscopic cholecystectomy 08/2020. He follows in the office with Dr. Santana. We have been asked to see in consultation for congestive heart failure. Patient is a poor historian. He presents to the emergency department on 05/17/2022 with shortness of breath and a cough. He apparently was seen outpatient by his PCP and was sent to the ER for further evaluation. He is unable to explain detail of when his shortness of breath started, but he does recall being more short of breath. He is alert and oriented to person, knows he is in [place], unclear of the year and is able to state the president. He denies any chest pain, palpitations, lightheadedness, dizziness, syncope or near syncope. He denies any symptoms of orthopnea or PND. He continues to smoke cigarettes. He was started on IV Lasix in the ER and with 2.7L urine output over the past 24 hours. DIAGNOSTICS -EKG reveals atrial fibrillation, heart rate 77, ST depression in anterior leads, prior EKG in 09/2021 with similar findings in leads V2 and V3. -Chest xray cardiomegaly present, pulmonary vascular congestion noted. -Echocardiogram 02/20/2022 revealed EF of 5055 percent, moderate left atrial dilatation, mild pulmonary hypertension, mild mitral regurgitation, mild to moderate tricuspid regurgitation -Laboratory reviewed, WBC 7.5, hemoglobin 10.4, platelets 92, sodium 136, potassium 3.3, BUN 18, serum creatinine 1.05, magnesium 2.0, proBNP 5460 -Current home medications include Eliquis 5 mg twice a day, aspirin 81 mg daily, metoprolol tartrate 12.5 mg twice a day, atorvastatin 20 mg nightly, Lexapro, Remeron, Synthroid, Protonix, vitamin B-1 REVIEW OF SYSTEMS At the time of my exam: CONSTITUTIONAL: Denies fever or chills. CARDIOVASCULAR: Denies chest pain, +shortness of breath,Denies orthopnea, PND or palpitations. RESPIRATORY: +cough. GASTROINTESTINAL: Denies abdominal pain. Denies diarrhea, constipation, nausea or vomiting. MUSCULOSKELETAL: Denies myalgias. NEUROLOGIC: Denies numbness, tingling, headache or weakness. ENDOCRINE: Denies fatigue, weight change, polydipsia or polyurina. GENITOURINARY: Denies burning, hematuria or urgency with micturation. HEMATOLOGIC: +history of anemia Denies bleeding. PHYSICAL EXAMINATION Blood pressure 112/58, heart rate 69, afebrile, oxygen saturation 93% on 2L CONSTITUTIONAL: No apparent distress. HEENT: Head is normocephalic. Pupils are equal, round. Sclerae anicteric. Mucous membranes of the mouth are moist. CHEST EXAMINATION: Coarse crackles in the bases and Wheezing also noted. No chest wall tenderness is noted on palpation or with deep breathing. HEART EXAMINATION: Irregular rate and rhythm. S1, S2 heard. Systolic ejection murmur at the base and apex, no gallops or rub. ABDOMEN: Soft, Positive bowel sounds. EXTREMITIES: 2+ peripheral pulses, no edema and no calf tenderness. NEUROLOGIC EXAMINATION: Patient is awake, confused, poor historia, is alert and oriented to person and place ASSESSMENT Acute on chronic heart failure with preserved ejection fraction Coronary artery disease s/p PCI to proximal LAD 2016 COPD Permanent atrial fibrillation on eliquis Valvular heart disease s/p prior bioprostheic aortic valve replacement Dyslipidemia COPD Chronic nicotine dependence PLAN Obtain 2D echocardiogram Continue IV Lasix for additional 24 hours Monitor I/Os, daily weights, renal function and electrolytes Continue Eliquis and metoprolol tartrate Further recommendations based on clinical course Nurse Practitioner note has been reviewed, I agree with a documented findings and plan of care. Patient was seen and examined. Past Medical History Past Medical History: Atrial Fibrillation, Atrial Flutter, Coronary Artery Disease (CAD), Cancer, Chest Pain / Angina, Heart Failure, COPD, CVA/TIA, Deep Vein Thrombosis (DVT), Eye Disorder, GERD/Reflux, GI Bleed, Hearing Disorder / Deafness, Hyperlipidemia, Hypertension, Liver Disease, Memory Impairment, Pne umonia, Vascular Disorder Additional Past Medical History / Comment(s): Stable dissection of the descending aorta, chronic atrial fibrillation and is anticoagulated with warfa rin, aortic valve replacement with a bioprosthetic valve, pulmonary hypertension, chronic hypoxic respiratory failure with home O2 at , previous pneumonia 2008 and 2014, prostate cancer with prostatectomy, DVT R lower leg x2, macular degeneration L eye, left arm fracture, chronic tinnitus in both ears, gastritis, lower GIm bleed, UTI, liver cirrhosis related to history of alcoholism, hepatitis C at age 14yrs., feeding tube, alcoholism Last Myocardial Infarction Date:: unsure History of Any Multi-Drug Resistant Organisms: None Reported Date of last positivie culture/infection: None MDRO Source:: None Past Surgical History: Cardiac Valve Replacement, Cholecystectomy, Coronary Bypass/CABG, Heart Catheterization, Heart Catheterization With Stent, Hernia Repair, Orthopedic Surgery, Prostate Surgery Additional Past Surgical History / Comment(s): Aortic valve replacement, prostatectomy, right inguinal hernia repair 2, bilateral knee arthroscopy, colonoscopy/polypectomy, EGD, right leg varicose vein stripping, removal of a blood clot from the right lower extremity, cervical surgery d/t injury in [place] and removal of shrapnel's from the right shoulder, feeding tube Past Anesthesia/Blood Transfusion Reactions: No Reported Reaction Date of Last Stent Placement:: 2016 Past Psychological History: No Psychological Hx Reported Additional Psychological History / Comment(s): grandson lives with the patient. History of chronic tobacco use active and alcohol use active, old drug use Smoking Status: Current some day smoker Past Alcohol Use History: Rare Additional Past Alcohol Use History / Comment(s): Pt started smoking in 1966 and is a 1.5 ppd smoker. He states he drinks daily and last drank on 09/16/18. Past Drug Use History: None Reported - Past Family History Mother Family Medical History: Diabetes Mellitus Additional Family Medical History / Comment(s): Mother at age 74 from diabetic complications. Father Family Medical History: Congestive Heart Failure (CHF) Additional Family Medical History / Comment(s): Father at age 91 yrs. Medications and Allergies Home Medications Medication Instructions Recorded Confirmed Type Apixaban [Eliquis] 5 mg PO BID 08/04/20 05/17/22 History Levothyroxine Sodium [Euthyrox] 50 mcg PO DAILY 08/04/20 05/17/22 History Aspirin EC [Ecotrin Low Dose] 81 mg PO DAILY 12/24/20 05/17/22 History Mirtazapine [Remeron] 15 mg PO HS 12/24/20 05/17/22 History Pantoprazole Sodium 40 mg PO AC-BRKFST 12/24/20 05/17/22 History Thiamine [Vitamin B-1] 100 mg PO DAILY 12/24/20 05/17/22 History Atorvastatin [Lipitor] 20 mg PO HS 10/15/21 05/17/22 History Escitalopram Oxalate [Lexapro] 20 mg PO DAILY 10/15/21 05/17/22 History Fluticasone Propion/Salmeterol 1 puff INHALATION RT-BID 10/15/21 05/17/22 History [Wixela 250-50 Inhub] Lidocaine 4% Cream [Lmx 4] 1 applic TOPICAL DAILY PRN 10/15/21 05/17/22 History Metoprolol Tartrate [Lopressor] 12.5 mg PO BID 11/03/21 05/17/22 History Albuterol Nebulized [Ventolin 2.5 mg INHALATION RT-Q4H 05/17/22 05/17/22 History Nebulized] Lidocaine 5% Patch [Lidoderm] 1 patch TOPICAL DAILY PRN 05/17/22 05/17/22 History Allergies Allergy/AdvReac Type Severity Reaction Status Date / Time primidone Allergy Rash/Hives Verified 05/17/22 15:11 gabapentin AdvReac DIZZINESS Verified 05/17/22 15:11 Physical Exam Vitals: Vital Signs Temp Pulse Pulse Resp BP Pulse Ox 05/19/22 04:50 97.9 F 69 17 112/58 93 L 05/19/22 00:00 72 05/18/22 23:49 72 05/18/22 20:07 68 05/18/22 20:00 77 18 115/58 91 L 05/18/22 19:56 65 05/18/22 17:00 98.6 F 77 17 115/58 94 L 05/18/22 16:08 73 18 05/18/22 15:58 72 18 05/18/22 11:39 70 18 05/18/22 11:29 72 18 05/18/22 11:10 98.6 F 70 16 127/68 96 05/18/22 10:22 98.2 F 61 18 130/69 96 05/18/22 08:45 88 18 05/18/22 08:35 88 18 92 L Intake and Output 05/18/22 05/19/22 05/19/22 22:59 06:59 14:59 Intake Total 240 Output Total 1350 200 Balance -1350 40 Intake: Oral 240 Output: Urine 1350 200 Other: Voiding Method Urinal # Voids 2 Weight 81.4 kg Results 05/19/22 04:55 05/19/22 04:55 Cardiac Enzymes 05/19/22 Range/Units 04:55 AST 32 (17-59) U/L CBC 05/18/22 05/19/22 Range/Units 05:23 04:55 WBC 3.34 L 7.5 (4.50-10.00) X 10*3/uL RBC 3.65 L 3.77 L (4.40-5.60) X 10*6/uL Hgb 9.9 L 10.4 L (13.0-17.0) g/dL Hct 32.2 L 32.7 L (39.6-50.0) % Plt Count 118 L 92 L (140-440) X 10*3/uL Comprehensive Metabolic Panel 05/18/22 05/19/22 Range/Units 05:23 04:55 Sodium 141 136 L (135-145) mmol/L Potassium 4.0 3.3 L (3.5-5.5) mmol/L Chloride 91 L 84 L (96-109) mmol/L Carbon Dioxide 40.8 H* 42 H* (20.0-27.5) mmol/L BUN 16.1 18 (9.0-27.0) mg/dL Creatinine 1.3 1.05 (0.6-1.5) mg/dL Glucose 132 H 107 H (70-110) mg/dL Calcium 8.6 L 7.9 L (8.7-10.3) mg/dL AST 32 (17-59) U/L ALT 11 (4-49) U/L Alkaline Phosphatase 108 (38-126) U/L Total Protein 7.0 (6.3-8.2) g/dL Albumin 3.8 (3.5-5.0) g/dL Current Medications Generic Name Dose Route Start Last Admin Trade Name Freq PRN Reason Stop Dose Admin Albuterol Sulfate 2.5 mg 05/17/22 16:00 05/19/22 03:40 Albuterol Nebulized 2.5 Mg/3 Ml INHALATION Not Given RT-Q4H [facility] Apixaban 5 mg 05/17/22 21:00 05/18/22 21:22 Apixaban 5 Mg Tab PO 5 mg BID JAYLA Administration Protocol Aspirin 81 mg 05/18/22 09:00 05/18/22 08:06 Aspirin 81 Mg PO 81 mg DAILY JAYLA Administration Atorvastatin Calcium 20 mg 05/17/22 21:00 05/18/22 21:22 Atorvastatin 20 Mg Tab PO 20 mg HS JAYLA Administration Budesonide/Formoterol Fumarate 2 puff 05/17/22 20:00 05/18/22 19:56 Symbicort 80-4.5 Mcg Inhaler INHALATION 2 puff RT-BID JAYLA Administration Escitalopram Oxalate 20 mg 05/18/22 09:00 05/18/22 08:14 Escitalopram 20 Mg Tab PO 20 mg DAILY JAYLA Administration Furosemide 40 mg 05/17/22 22:00 05/19/22 06:16 Furosemide 10 Mg/Ml 4 Ml Vial IV 40 mg Q8H JAYLA Administration Levothyroxine Sodium 50 mcg 05/18/22 06:30 05/19/22 06:16 Levothyroxine 50 Mcg Tab PO 50 mcg DAILY@0630 JAYLA Administration Metoprolol Tartrate 12.5 mg 05/17/22 21:00 05/18/22 21:23 Metoprolol Tartrate 12.5 Mg Tab PO 12.5 mg BID JAYLA Administration Mirtazapine 15 mg 05/17/22 21:00 05/18/22 21:22 Mirtazapine 15 Mg Tab PO 15 mg HS JAYLA Administration Nitroglycerin 1 inch 05/17/22 18:00 05/18/22 21:23 Nitroglycerin Oint 1 Inch/Gm Packet TOPICAL 1 inch QID JAYLA Administration Pantoprazole Sodium 40 mg 05/18/22 07:30 05/18/22 08:06 Pantoprazole 40 Mg Tablet PO 40 mg AC-BRKFST JAYLA Administration Prednisone 40 mg 05/17/22 15:30 05/18/22 08:06 Prednisone 20 Mg Tab PO 40 mg DAILY JAYLA Administration Thiamine HCl 100 mg 05/18/22 09:00 05/18/22 08:06 Thiamine 100 Mg Tab PO 100 mg DAILY JAYLA Administration Intake and Output 05/18/22 05/19/22 05/19/22 22:59 06:59 14:59 Intake Total 240 Output Total 1350 200 Balance -1350 40 Intake: Oral 240 Output: Urine 1350 200 Other: Voiding Method Urinal # Voids 2 Weight 81.4 kg 05/19/22 04:55 05/19/22 04:55
--- NOTE | 2022-05-19 12:18 | CA ---
Transthoracic Echo Report Name: Sylvain Duran Age: 71 Gender: M : 1950 Exam Date: 05/19/2022 09:53 Exam Location: [facility] Ht (in): 69 Wt (lb): 179 Ordering Physician: Pauline Wiggins Attending/Referring Phys: Assistant Financial Accountant Sheryl Carrington RDCS Procedure CPT: Indications: repeat, worsening SOB Cardiac Hx: Technical Quality: Fair Contrast 1: Total Dose (mL): Contrast 2: Total Dose (mL): MEASUREMENTS (Male / Female) Normal Values 2D ECHO LV Diastolic Diameter PLAX 4.9 cm 4.2 - 5.9 / 3.9 - 5.3 cm LV Systolic Diameter PLAX 3.4 cm IVS Diastolic Thickness 1.4 cm 0.6 - 1.0 / 0.6 - 0.9 cm LVPW Diastolic Thickness 1.3 cm 0.6 - 1.0 / 0.6 - 0.9 cm LV Relative Wall Thickness 0.6 RV Internal Dim ED PLAX 4.5 cm LA Systolic Diameter LX 4.6 cm 3.0 - 4.0 / 2.7 - 3.8 cm LA Volume 98.9 cm??? 18 - 58 / 22 - 52 cm??? M-MODE Aortic Root Diameter MM 4.2 cm MV E Point Septal Separation 0.2 cm AV Cusp Separation MM 1.8 cm DOPPLER AV Peak Velocity 217.4 cm/s AV Peak Gradient 18.9 mmHg AV Mean Velocity 138.4 cm/s AV Mean Gradient 10.2 mmHg AV Velocity Time Integral 44.8 cm LVOT Peak Velocity 161.7 cm/s LVOT Peak Gradient 10.5 mmHg MV Area PHT 4.4 cm??? MV Deceleration Time 169.6 ms MV E' Velocity 10.4 cm/s TR Peak Velocity 319.8 cm/s TR Peak Gradient 40.9 mmHg Right Ventricular Systolic Press 54.2 mmHg FINDINGS Left Ventricle Left ventricular ejection fraction is estimated at 50-55 %. Left ventricular cavity size normal. Moderate concentric left ventricular hypertrophy. Right Ventricle Severe right ventricular dilatation. Moderate to severe pulmonary hypertension. Right Atrium Normal right atrial size. Left Atrium Mildly increased left atrial diameter. Severely increased left atrial volume. Moderately increased left atrial area. No evidence for an atrial septal defect. Mitral Valve Mitral valve thickened. Mild mitral annular calcification. Trace mitral regurgitation. Aortic Valve Trileaflet aortic valve. Focal thickening of the aortic valve cusps. Gradient normal for bioprostetic valve mean 10 mm/Hg Tricuspid Valve [id number] tricuspid regurgitation. Pulmonic Valve Trace pulmonic regurgitation. Pericardium Normal pericardium. No pericardial effusion. Aorta Moderate aortic dilatation at the level of the sinotubular junction 42 mm CONCLUSIONS Left ventricular ejection fraction 50-55% Moderate LVH Severe RV dilation Moderate to severe pulmonary hypertension RVSP 54 Moderate to severely dilated left atrium Trace mitral regurgitation Bioprosthetic valve with mean gradient 10mmHg Mild to moderate tricuspid regurgitation Previewed by: Dr. Clement Talamantes DO (Electronically Signed) Final Date: 19 May 2022 12:18
--- NOTE | 2022-05-19 15:42 | P.PN ---
Subjective Progress Note Date: 05/19/22 Hospital course: Patient is a very pleasant 71-year-old male with a past medical history of CAD status post CABG, history of bioprosthetic aortic valve replacement, chronic diastolic heart failure with previously known EF of 50-55%, Permanent atrial fibrillation on anticoagulation with Eliquis, history of pulmonary hypertension, COPD, hypertension, hyperlipidemia, and TIA. Patient presented to the emergency department with the chief complaint of increased shortness of breath, cough, EKG completed in the emergency department revealing atrial fibrillation with a controlled ventricular rate of 74 bpm with T-wave inversion in leads V2, V3, aVF, and V1 through V3. Unchanged from previous EKG completed on 02/20/22. CBC revealed mild normocytic normochromic anemia with hemoglobin of 11.0 and thrombocytopenia with platelet count of 101. CMP revealed hypercarbia with carbon dioxide of 39 and elevated alkaline phosphatase of 148. Lactate elevated at 2.2. Influenza A, influenza B, and Covid PCR were negative. Chest x-ray revealing cardiomegaly and mild pulmonary vascular congestion with trace bilateral pleural effusions consistent with CHF exacerbation. Patient was admitted under our services for CHF exacerbation with consultation to cardiology. Physical exam: Patient was seen and fully evaluated at bedside this morning. He was seen and evaluated at bedside. physical examination findings revealed resolution of previous he noted wheezes however patient with diffuse coarse rhonchi bilaterally this morning. Patient reports continued coarse nonproductive cough, but does state improvement in shortness of breath at rest.patient now requiring oxygen supplementation with SpO2 of 92% on 2 L. Patient has had significant urinary output 2750 mL over the past 24 hours. Vital signs reviewed and stable. General: Nontoxic, no distress and appears stated age. Derm: Skin warm and dry, normal coloration for ethnicity. Head: Atraumatic, normocephalic and symmetric. Eyes: EOMs intact, no lid lag, and anicteric sclera Mouth: no lip lesions, mucus membranes moist Cardiovascular: Irregularly irregular, systolic murmur, positive posterior tibial pulses bilaterally, and cap refill < 2 seconds. Lungs: Respirations even, regular, and unlabored on 2 L O2 via nasal cannula. Lungs with diffuse coarse rhonchi bilaterally. Abdominal: soft, nontender to palpation, no guarding, no appreciable organomega ly Ext: ROM intact. No gross muscle atrophy, 1+ lower extremity edema, no contractures Neuro: Speech clear, face symmetrical and CN II-XII grossly intact with no noted focal neuro deficits Psych: Alert and oriented to person, place, time, and situation. Appropriate and pleasant affect. Assessment and Plan of Care: Acute exacerbation of chronic diastolic heart failure with previously known EF 50-55% Permanent Atrial fibrillation Bioprosthetic aortic valve History of pulmonary hypertension COPD, not in acute exacerbation -Cardiology consult -Telemetry monitoring -ProBNP 5416 -Daily weights -Close monitoring of I's and O's -Cardiac diet -Lasix -Continue daily cardiac medication regimen with Eliquis, Aspirin, atorvastatin, and metoprolol -Continued close monitoring of electrolytes while diuresing. -Echocardiogram completed 02/20/22 revealed an EF of 50-55% with mild to moderate tricuspid regurgitation and mild pulmonary hypertension. Repeat echocardiogram ordered by cardiology this morning. Hypomagnesemia -Replaced, continue to monitor with repeat a.m. labs and replace abnormal electrolyte values as needed. Hypothyroidism -Continue daily medication regimen with levothyroxine. Hypertension -Monitor vital signs and continue daily medication regimen with metoprolol. Hyperlipidemia Continue daily medication regimen with atorvastatin. Lactic acidosis Likely resulting from liver cirrhosis, resolved with administration of IV diuretic CODE STATUS: Full code DVT prophylaxis: Eliquis Discussed with: Patient and RN Anticipated discharge date: clinical course to determine Anticipated discharge place: Home A total of 33 minutes was spent on the care of this complex patient more than 50% of the time was spent in counseling and care coordination. Objective - Vital Signs Vital signs: Vital Signs Temp 97.9 F 05/19/22 04:50 Pulse 68 05/19/22 08:05 Resp 17 05/19/22 04:50 BP 112/58 05/19/22 04:50 Pulse Ox 93 L 05/19/22 04:50 FiO2 Intake & Output 05/18/22 05/19/22 05/19/22 18:59 06:59 18:59 Intake Total 240 Output Total 2300 450 750 Balance -2300 -210 -750 Weight 81.4 kg 82.5 kg Intake: Oral 240 Output: Urine 2300 450 750 Other: Voiding Method Urinal Urinal Urinal # Voids 2 1 - Labs CBC & Chem 7: 05/19/22 04:55 05/19/22 04:55 Labs: Abnormal Lab Results - Last 24 Hours (Table) 1005/19/22 05/19/22 Range/Units 05:23 04:55 04:55 RBC 3.77 L (4.30-5.90) m/uL Hgb 10.4 L (13.0-17.5) gm/dL Hct 32.7 L (39.0-53.0) % Plt Count 92 L (150-450) k/uL Sodium 136 L (137-145) mmol/L Potassium 3.3 L (3.5-5.1) mmol/L Chloride 91 L 84 L (96-109) mmol/L Carbon Dioxide 40.8 H* 42 H* (20.0-27.5) mmol/L Anion Gap 9.30 L (10.00-18.00) mmol/L Est GFR (CKD-EPI)NonAf 56.2 L (60.0-200.0) Glucose 132 H 107 H (70-110) mg/dL Calcium 8.6 L 7.9 L (8.7-10.3) mg/dL
[2022-05-19 16:42] VITALS: BMI 26.9
[2022-05-19] MEDS: MIRTAZAPINE 15 MG TAB PO SCH (20:50)
[2022-05-19] MEDS: ATORVASTATIN 20 MG TAB PO SCH (20:51)
[2022-05-20] MEDS: ALBUTEROL NEBULIZED 2.5 MG/3 ML INHALATION SCH ×6 (05:17→23:22)
[2022-05-20 05:32] LABS: African American GFR (CKD) 84 (>60 ml/min/1.73 sqM); Blood Urea Nitrogen 27 mg/dL (9-20); Chloride 84 mmol/L (98-107); Glucose 112 mg/dL (74-99); Magnesium 1.9 mg/dL (1.6-2.3); Non-African American GFR(CKD) 73 (>60 ml/min/1.73 sqM); Potassium 3.5 mmol/L (3.5-5.1); Sodium 137 mmol/L (137-145)
[2022-05-20] MEDS: LEVOTHYROXINE 50 MCG TAB PO SCH (05:33)
[2022-05-20] MEDS: FUROSEMIDE 10 MG/ML 4 ML VIAL IV SCH (05:33)
[2022-05-20 05:39] LABS: Anion Gap 9 mmol/L
[2022-05-20 05:44] LABS: Carbon Dioxide 44 mmol/L (22-30)
[2022-05-20] MEDS: SYMBICORT 80-4.5 MCG INHALER INHALATION SCH ×2 (07:41→19:49)
[2022-05-20] MEDS: predniSONE 20 MG TAB PO SCH (07:53)
[2022-05-20] MEDS: METOPROLOL TARTRATE 12.5 MG TAB PO SCH ×2 (07:54→20:15)
[2022-05-20] MEDS: THIAMINE 100 MG TAB PO SCH (07:54)
[2022-05-20] MEDS: PANTOPRAZOLE 40 MG TABLET PO SCH (07:54)
[2022-05-20] MEDS: ESCITALOPRAM 20 MG TAB PO SCH (07:54)
[2022-05-20] MEDS: APIXABAN 5 MG TAB PO SCH ×2 (07:54→20:15)
[2022-05-20] MEDS: ASPIRIN 81 MG PO SCH (07:54)
[2022-05-20] MEDS ORDERED: FUROSEMIDE 40 MG TAB PO SCH (09:00)
[2022-05-20] MEDS: SILDENAFIL 20 MG TAB PO SCH ×3 (10:45→21:57)
--- NOTE | 2022-05-20 13:03 | P.PN ---
Subjective This is a pleasant 71-year-old male past medical history significant for coronary artery disease status post PCI of the proximal LAD in 2017, hypertension, dyslipidemia, valvular heart disease status post aortic valve replacement, Permanent atrial fibrillation (on Eliquis), COPD and former nicotine dependence, laparoscopic cholecystectomy 08/2020. He follows in the office with Dr. Santana. We have been asked to see in consultation for congestive heart failure. Patient is a poor historian. He presents to the emergency department on 05/17/2022 with shortness of breath and a cough. He apparently was seen outpatient by his PCP and was sent to the ER for further evaluation. He is unable to explain detail of when his shortness of breath started, but he does recall being more short of breath. He is alert and oriented to person, knows he is in [place], unclear of the year and is able to state the president. He denies any chest pain, palpitations, lightheadedness, dizziness, syncope or near syncope. He denies any symptoms of orthopnea or PND. He continues to smoke cigarettes. He was started on IV Lasix in the ER, with improvement in symptoms 05/20 Patient seen and examined at bedside, no acute distress. He continues to be sli ghtly confused. No acute events overnight. No shortness of breath or chest pain. SpO2 96% on 2L. BUN 27, serum creatinine 1.02. He's currently on IV Lasix 20mg Q8hr. Patient with 2.9L urine output. Decrease in weight noted. Echocardiogram revealed EF 5055 %, moderate concentric LVH, moderate severe pulmonary hypertension, RVSP measured at 54 mmHg but patient with severe right ventricular dilatation, moderate to severe dilated left atrium, bioprosthetic aortic valve mean gradient 10mmHg PHYSICAL EXAMINATION Vitals reviewed. CONSTITUTIONAL: No apparent distress. HEENT: Head is normocephalic. Pupils are equal, round. Sclerae anicteric. Mucous membranes of the mouth are moist. CHEST EXAMINATION: Mild crackles in the bases and Wheezing also noted. No chest wall tenderness is noted on palpation or with deep breathing. HEART EXAMINATION: Irregular rate and rhythm. S1, S2 heard. Systolic ejection murmur at the base and apex, no gallops or rub. ABDOMEN: Soft, Positive bowel sounds. EXTREMITIES: 2+ peripheral pulses, no edema and no calf tenderness. NEUROLOGIC EXAMINATION: Patient is awake, confused, poor historia, is alert and oriented to person and place ASSESSMENT Acute on chronic heart failure with preserved ejection fraction Severe pulmonary hypertension with severe right ventricular dilatation Coronary artery disease s/p PCI to proximal LAD 2016 COPD Permanent atrial fibrillation on eliquis Valvular heart disease s/p prior bioprostheic aortic valve replacement Dyslipidemia COPD Chronic nicotine dependence PLAN Transition to PO Lasix 40mg daily Recommend starting Revatio for severe pulmonary hypertension Continue Eliquis and metoprolol tartrate Discharge when cleared by primary and other consultants Close follow up outpatient with Dr. Santana. Nurse Practitioner note has been reviewed, I agree with a documented findings and plan of care. Patient was seen and examined. Objective - Vital Signs Vital signs: Vital Signs Temp 98.0 F 05/20/22 04:21 Pulse 90 05/20/22 11:42 Resp 20 05/20/22 04:21 BP 120/54 05/20/22 04:21 Pulse Ox 96 05/20/22 07:43 FiO2 Intake & Output 05/19/22 05/20/22 05/20/22 18:59 06:59 18:59 Output Total 2000 900 1200 Balance -2000 -900 -1200 Weight 82.5 kg 80.5 kg Output: Urine 2000 900 1200 Other: Voiding Method Urinal Urinal Urinal # Voids 2 - Labs CBC & Chem 7: 05/19/22 04:55 05/20/22 04:38 Labs: Abnormal Lab Results - Last 24 Hours (Table) 05/20/22 Range/Units 04:38 Chloride 84 L (98-107) mmol/L Carbon Dioxide 44 H* (22-30) mmol/L BUN 27 H (9-20) mg/dL Glucose 112 H (74-99) mg/dL Calcium 8.0 L (8.4-10.2) mg/dL
--- NOTE | 2022-05-20 13:32 | P.PN ---
Subjective Progress Note Date: 05/20/22 Hospital course: Patient is a very pleasant 71-year-old male with a past medical history of CAD status post CABG, history of bioprosthetic aortic valve replacement, chronic diastolic heart failure with previously known EF of 50-55%, Permanent atrial fibrillation on anticoagulation with Eliquis, history of pulmonary hypertension, COPD, hypertension, hyperlipidemia, and TIA. Patient presented to the emergency department with the chief complaint of increased shortness of breath, cough, EKG completed in the emergency department revealing atrial fibrillation with a controlled ventricular rate of 74 bpm with T-wave inversion in leads V2, V3, aVF, and V1 through V3. Unchanged from previous EKG completed on 02/20/22. CBC revealed mild normocytic normochromic anemia with hemoglobin of 11.0 and thrombocytopenia with platelet count of 101. CMP revealed hypercarbia with carbon dioxide of 39 and elevated alkaline phosphatase of 148. Lactate elevated at 2.2. Influenza A, influenza B, and Covid PCR were negative. Chest x-ray revealing cardiomegaly and mild pulmonary vascular congestion with trace bilateral pleural effusions consistent with CHF exacerbation. Patient was admitted under our services for CHF exacerbation with consultation to cardiology. Patient required IV diuresis. Echocardiogram revealed an EF of 50- 55% with mild to moderate LVH and severe right ventricular dilation with moderate to severe hypertension, moderate to severely dilated left atrium and bioprosthetic valve, and moderate tricuspid regurgitation. Physical exam: Patient was seen and fully evaluated at bedside this morning. Patient reports feeling much better and reports he is finally able to cough up some of the phlegm. He remains on 2 L O2 via nasal cannula with SpO2 of 91-94%. He continues to have diffuse expiratory wheezes and bibasilar crackles upon physical examination. No lower extremity edema upon examination this morning. Patient has had significant urinary output 2900 mL over the past 24 hours. Likely transition to oral diuretics within the next 24 hours. Will attempt to wean off of oxygen and if patient continues to require oxygen supplementation and will arrange for home oxygen evaluation with possible discharge home on oxygen. Likely discharge within the next 24 hours. Vital signs reviewed and stable. General: Nontoxic, no distress and appears stated age. Derm: Skin warm and dry, normal coloration for ethnicity. Head: Atraumatic, normocephalic and symmetric. Eyes: EOMs intact, no lid lag, and anicteric sclera Mouth: no lip lesions, mucus membranes moist Cardiovascular: Irregularly irregular, systolic murmur, positive posterior tibial pulses bilaterally, and cap refill < 2 seconds. Lungs: Respirations even, regular, and unlabored on 2 L O2 via nasal cannula. Lungs with diffuse expiratory wheezes bilaterally and bibasilar crackles. Abdominal: soft, nontender to palpation, no guarding, no appreciable organomegaly Ext: ROM intact. No gross muscle atrophy, no edema, no contractures Neuro: Speech clear, face symmetrical and CN II-XII grossly intact with no noted focal neuro deficits Psych: Alert and oriented to person, place, time, and situation. Appropriate and pleasant affect. Assessment and Plan of Care: Acute exacerbation of chronic diastolic heart failure with previously known EF 50-55% Permanent Atrial fibrillation Bioprosthetic aortic valve History of pulmonary hypertension COPD, not in acute exacerbation -Cardiology consult -Telemetry monitoring -ProBNP 5416 -Daily weights -Close monitoring of I's and O's -Cardiac diet -Lasix -Continue daily cardiac medication regimen with Eliquis, Aspirin, atorvastatin, and metoprolol -Continued close monitoring of electrolytes while diuresing. -Echocardiogram revealed an EF of 50-55% with mild to moderate LVH and severe right ventricular dilation with moderate to severe hypertension, moderate to severely dilated left atrium and bioprosthetic valve, and moderate tricuspid regurgitation. Hypomagnesemia -Replaced, continue to monitor with repeat a.m. labs and replace abnormal electrolyte values as needed. Hypothyroidism -Continue daily medication regimen with levothyroxine. Hypertension -Monitor vital signs and continue daily medication regimen with metoprolol. Hyperlipidemia Continue daily medication regimen with atorvastatin. Lactic acidosis Likely resulting from liver cirrhosis, resolved with administration of IV diuretic CODE STATUS: Full code DVT prophylaxis: Eliquis Discussed with: Patient and RN Anticipated discharge date: Likely discharge within the next [address]: Home A total of 33 minutes was spent on the care of this complex patient more than 50% of the time was spent in counseling and care coordination. I reviewed the documentation as provided by the LUPE above, who is the original author of this note. I agree with the documented assessment and plan, with the following changes: none Objective - Vital Signs Vital signs: Vital Signs Temp 98.0 F 05/20/22 04:21 Pulse 91 05/20/22 07:51 Resp 20 05/20/22 04:21 BP 120/54 05/20/22 04:21 Pulse Ox 96 05/20/22 07:43 FiO2 Intake & Output 05/19/22 05/20/22 05/20/22 18:59 06:59 18:59 Output Total 1999 1200 Balance -1999 Weight 82.5 kg 80.5 kg Output: Urine 1999 1200 Other: Voiding Method Urinal Urinal # Voids 2 - Labs CBC & Chem 7: 05/19/22 04:55 05/20/22 04:38 Labs: Abnormal Lab Results - Last 24 Hours (Table) 05/20/22 Range/Units 04:38 Chloride 84 L (98-107) mmol/L Carbon Dioxide 44 H* (22-30) mmol/L BUN 27 H (9-20) mg/dL Glucose 112 H (74-99) mg/dL Calcium 8.0 L (8.4-10.2) mg/dL
[2022-05-20] MEDS: ATORVASTATIN 20 MG TAB PO SCH (20:15)
[2022-05-20] MEDS: MIRTAZAPINE 15 MG TAB PO SCH (20:16)
[2022-05-21] MEDS: ALBUTEROL NEBULIZED 2.5 MG/3 ML INHALATION SCH ×3 (03:33→11:30)
[2022-05-21] MEDS: LEVOTHYROXINE 50 MCG TAB PO SCH (05:07)
[2022-05-21 05:20] VITALS: BP 104/60; RESP 20; TEMP 98.2
[2022-05-21] MEDS: PANTOPRAZOLE 40 MG TABLET PO SCH (07:36)
[2022-05-21] MEDS: ASPIRIN 81 MG PO SCH (07:36)
[2022-05-21] MEDS: predniSONE 20 MG TAB PO SCH (07:37)
[2022-05-21] MEDS: APIXABAN 5 MG TAB PO SCH (07:37)
[2022-05-21] MEDS: METOPROLOL TARTRATE 12.5 MG TAB PO SCH (07:37)
[2022-05-21] MEDS: THIAMINE 100 MG TAB PO SCH (07:38)
[2022-05-21] MEDS: ESCITALOPRAM 20 MG TAB PO SCH (07:38)
[2022-05-21] MEDS: SILDENAFIL 20 MG TAB PO SCH (07:39)
[2022-05-21] MEDS: SYMBICORT 80-4.5 MCG INHALER INHALATION SCH (07:45)
[2022-05-21] MEDS ORDERED: FUROSEMIDE 40 MG TAB PO SCH (09:00)
--- NOTE | 2022-05-21 09:18 | P.PN ---
Subjective This is a pleasant 71-year-old male past medical history significant for coronary artery disease status post PCI of the proximal LAD in 2017, hypertension, dyslipidemia, valvular heart disease status post aortic valve replacement, Permanent atrial fibrillation (on Eliquis), COPD and former nicotine dependence, laparoscopic cholecystectomy 08/2020. He follows in the office with Dr. Santana. We have been asked to see in consultation for congestive heart failure. Patient is a poor historian. He presents to the emergency department on 05/17/2022 with shortness of breath and a cough. He apparently was seen outpatient by his PCP and was sent to the ER for further evaluation. He is unable to explain detail of when his shortness of breath started, but he does recall being more short of breath. He is alert and oriented to person, knows he is in [place], unclear of the year and is able to state the president. He denies any chest pain, palpitations, lightheadedness, dizziness, syncope or near syncope. He denies any symptoms of orthopnea or PND. He continues to smoke cigarettes. He was started on IV Lasix in the ER, with improvement in symptoms 05/21 Patient seen and examined at bedside, no acute distress. Sitting up at the edge of the bed eating breakfast. No acute events overnight. No shortness of breath or chest pain. SpO2 96% on 2L. He has been transition to PO Lasix yesterday. Patient with 1.2L urine output. Weight stable. Echocardiogram revealed EF 5055 %, moderate concentric LVH, moderate severe pulmonary hypertension, RVSP measured at 54 mmHg but patient with severe right ventricular dilatation, moderate to severe dilated left atrium, bioprosthetic aortic valve mean gradient 10mmHg PHYSICAL EXAMINATION Vitals reviewed. CONSTITUTIONAL: No apparent distress. HEENT: Head is normocephalic. Pupils are equal, round. Sclerae anicteric. Mucous membranes of the mouth are moist. CHEST EXAMINATION: Mild crackles in the bases and Wheezing also noted. No chest wall tenderness is noted on palpation or with deep breathing. HEART EXAMINATION: Irregular rate and rhythm. S1, S2 heard. Systolic ejection murmur at the base and apex, no gallops or rub. ABDOMEN: Soft, Positive bowel sounds. EXTREMITIES: 2+ peripheral pulses, no edema and no calf tenderness. NEUROLOGIC EXAMINATION: Patient is awake, confused, poor historia, is alert and oriented to person and place ASSESSMENT Acute on chronic heart failure with preserved ejection fraction Severe pulmonary hypertension with severe right ventricular dilatation Coronary artery disease s/p PCI to proximal LAD 2016 COPD Permanent atrial fibrillation on eliquis Valvular heart disease s/p prior bioprostheic aortic valve replacement Dyslipidemia COPD Chronic nicotine dependence PLAN Continue PO Lasix 40mg daily Continue Revatio for severe pulmonary hypertension Continue Eliquis and metoprolol tartrate Discharge when cleared by primary and other consultants We will follow the patient as needed. Close follow up outpatient with Dr. Santana. Nurse Practitioner note has been reviewed, I agree with a documented findings and plan of care. Patient was seen and examined. Objective - Vital Signs Vital signs: Vital Signs Temp 98.2 F 05/21/22 05:17 Pulse 82 05/21/22 08:00 Resp 20 05/21/22 08:00 BP 104/60 05/21/22 05:17 Pulse Ox 96 05/21/22 05:17 FiO2 Intake & Output 05/20/22 05/21/22 05/21/22 18:59 06:59 18:59 Intake Total 240 Output Total 1200 Balance -1200 240 Weight 81 kg Intake: Oral 240 Output: Urine 1200 Other: Voiding Method Urinal Urinal Urinal - Labs CBC & Chem 7: 05/19/22 04:55 05/20/22 04:38
[2022-05-21 11:33] VITALS: PULSE 64
--- NOTE | 2022-05-21 15:03 | P.DS ---
Providers Date of admission: 05/19/22 08:58 Expected date of discharge: 05/21/22 Attending physician: Yane Soto DO Consults: 05/18/22 11:32 Consult Physician Routine Consulting Provider: Miriam Reinoso Consult Reason/Comments: Diastolic CHF exacerbation Do you want consulting provider notified?: Yes Primary care physician: [facility] Hospital Course: Discharge Diagnosis: Acute exacerbation of chronic diastolic heart failure. Patient underwent 4 night hospitalization for treatment with IV diuretics. Echocardiogram revealed an EF of 50-55% with moderate LVH, severe right ventricular dilation, severe pulmonary hypertension, moderate to severely dilated left atrium and bioprosthetic valve, and moderate tricuspid regurgitation. Patient discharged home on Lasix 40 mg daily and to follow-up with Dr. Santana, ticket sorter in 1 week. Severe pulmonary hypertension, patient started on Revatio and was instructed not to take nitroglycerin while on this medication. Permanent Atrial fibrillation. Continue anticoagulation with Eliquis. Bioprosthetic aortic valve COPD, not in acute exacerbation. Hypomagnesemia, replaced. Hypothyroidism. Continue daily medication regimen with levothyroxine. Hypertension. Monitor vital signs and continue daily medication regimen with metoprolol. Hyperlipidemia. Continue daily medication regimen with atorvastatin. Lactic acidosis. Likely resulting from liver cirrhosis, resolved with administration of IV diuretic. Hospital Course: Patient is a very pleasant 71-year-old male with a past medical history of CAD status post CABG, history of bioprosthetic aortic valve replacement, chronic diastolic heart failure with previously known EF of 50-55%, Permanent atrial fibrillation on anticoagulation with Eliquis, history of pulmonary hypertension, COPD, hypertension, hyperlipidemia, liver cirrhosis and TIA. Patient presented to the emergency department with the chief complaint of increased shortness of breath, cough, EKG completed in the emergency department revealing atrial fibrillation with a controlled ventricular rate of 74 bpm with T-wave inversion in leads V2, V3, aVF, and V1 through V3. Unchanged from previous EKG completed on 02/20/22. CBC revealed mild normocytic normochromic anemia with hemoglobin of 11.0 and thrombocytopenia with platelet count of 101. CMP revealed hypercarbia with carbon dioxide of 39 and elevated alkaline phosphatase of 148. Lactate elevated at 2.2. Influenza A, influenza B, and Covid PCR were negative. Chest x-ray revealing cardiomegaly and mild pulmonary vascular congestion with trace bilateral pleural effusions consistent with CHF exacerbation. Patient was admitted under our services for CHF exacerbation with consultation to cardiology. Patient required IV diuresis. Echocardiogram revealed an EF of 50- 55% with mild to moderate LVH and severe right ventricular dilation with moderate to severe hypertension, moderate to severely dilated left atrium and bioprosthetic valve, and moderate tricuspid regurgitation. Patient underwent 4 night hospitalization for treatment with IV diuretics. He was free from any complaints including headache, lightheadedness, dizziness, chest pain, palpitations, shortness of breath, or exertional dyspnea. Patient on room air and maintaining SpO2 greater than 92% at rest and with ambulation. Patient is medically stable at this time. Patient discharged home on Lasix 40 mg daily and Revatio to follow-up with Dr. Santana, ticket sorter in 1 week and with his PCP in 1-2 days.. Physical exam: Vital signs reviewed and stable. General: Nontoxic, no distress and appears stated age. Derm: Skin warm and dry, normal coloration for ethnicity. Head: Atraumatic, normocephalic and symmetric. Eyes: EOMs intact, no lid lag, and anicteric sclera Mouth: no lip lesions, mucus membranes moist Cardiovascular: Irregularly irregular, systolic murmur, positive posterior tibial pulses bilaterally, and cap refill < 2 seconds. Lungs: Respirations even, regular, and unlabored on room air.. Lungs with soft diffuse expiratory wheezes otherwise clear. Abdominal: soft, nontender to palpation, no guarding, no appreciable organomegaly Ext: ROM intact. No gross muscle atrophy, no edema, no contractures Neuro: Speech clear, face symmetrical and CN II-XII grossly intact with no noted focal neuro deficits Psych: Alert and oriented to person, place, time, and situation. Appropriate and pleasant affect. A total of 34 minutes of time were spent preparing this complex discharge summary. Pt was discharged on 05/21/22 at 8:53 AM I reviewed the documentation as provided by the LUPE above, who is the original author of this note. I agree with the documented assessment and plan, with the following changes: none Patient Condition at Discharge: Stable Plan - Discharge Summary Discharge Rx Participant: Yes New Discharge Prescriptions: New Sildenafil [Revatio] 20 mg PO TID 30 Days #90 tab Furosemide [Lasix] 40 mg PO DAILY 30 Days #30 tab Continue Levothyroxine Sodium [Euthyrox] 50 mcg PO DAILY Apixaban [Eliquis] 5 mg PO BID Thiamine [Vitamin B-1] 100 mg PO DAILY Aspirin EC [Ecotrin Low Dose] 81 mg PO DAILY Lidocaine 4% Cream [Lmx 4] 1 applic TOPICAL DAILY PRN PRN Reason: left ankle pain Albuterol Nebulized [Ventolin Nebulized] 2.5 mg INHALATION RT-Q4H Pantoprazole Sodium 40 mg PO [facility] Mirtazapine [Remeron] 15 mg PO HS Escitalopram Oxalate [Lexapro] 20 mg PO DAILY Fluticasone Propion/Salmeterol [Wixela 250-50 Inhub] 1 puff INHALATION RT-BID Atorvastatin [Lipitor] 20 mg PO HS Metoprolol Tartrate [Lopressor] 12.5 mg PO BID Lidocaine 5% Patch [Lidoderm 5% Patch] 1 patch TOPICAL DAILY PRN PRN Reason: low back pain Discharge Medication List Apixaban [Eliquis] 5 mg PO BID 08/04/20 [History] Levothyroxine Sodium [Euthyrox] 50 mcg PO DAILY 08/04/20 [History] Aspirin EC [Ecotrin Low Dose] 81 mg PO DAILY 12/24/20 [History] Mirtazapine [Remeron] 15 mg PO HS 12/24/20 [History] Pantoprazole Sodium 40 mg PO [facility] 12/24/20 [History] Thiamine [Vitamin B-1] 100 mg PO DAILY 12/24/20 [History] Atorvastatin [Lipitor] 20 mg PO HS 10/15/21 [History] Escitalopram Oxalate [Lexapro] 20 mg PO DAILY 10/15/21 [History] Fluticasone Propion/Salmeterol [Wixela 250-50 Inhub] 1 puff INHALATION RT-BID 10/15/21 [History] Lidocaine 4% Cream [Lmx 4] 1 applic TOPICAL DAILY PRN 10/15/21 [History] Metoprolol Tartrate [Lopressor] 12.5 mg PO BID 11/03/21 [History] Albuterol Nebulized [Ventolin Nebulized] 2.5 mg INHALATION RT-Q4H 05/17/22 [History] Lidocaine 5% Patch [Lidoderm 5% Patch] 1 patch TOPICAL DAILY PRN 05/17/22 [History] Furosemide [Lasix] 40 mg PO DAILY 30 Days #30 tab 05/21/22 [Rx] Sildenafil [Revatio] 20 mg PO TID 30 Days #90 tab 05/21/22 [Rx] Follow up Appointment(s)/Referral(s): Evan Santana MD [STAFF PHYSICIAN] - 05/27/22 2:30 pm [facility] [Primary Care Provider] - 1-2 days (PLEASE CALL AND SCHEDULE AN APPOINTMENT.) Patient Instructions/Handouts: Furosemide (By mouth), Sildenafil (By mouth), Heart Failure (DC), How to Stop Smoking (DC), Pulmonary Arterial Hypertension (DC) Activity/Diet/Wound Care/Special Instructions: Activity: As tolerated. Take breaks as needed. Diet: Heart healthy and carb consistent diet. Avoid salts, or foods with hidden salts such as canned or boxed foods and frozen dinners. Extra salt makes your heart work harder and traps the fluid in your body for longer. Special Instructions: Take all of your medications as directed and remember to keep all of your doctor's appointments and follow-up as needed. Follow-up with Dr. Santana, ticket sorter in 1 week. Do NOT take nitroglycerin while on Revatio. Thank you for allowing us to participate in your care, it was truly a pleasure having you for our patient!!! Discharge Disposition: HOME SELF-CARE
== END 2022-05-21 12:15 | disposition home or self-care (01) | DRG 291 ==
LOC: EC 10:00 → 3SCARD 13:28 → 5NMEDONC 16:48 → OBSVTOIN 05-19 08:58
PROVIDERS: ADMIT Internal Medicine; ATTEND Internal Medicine
DX: I11.0 Hypertensive heart disease with heart failure (principal); I50.43 Acute on chronic combined systolic (congestive) and diastolic (congestive) heart failure; J96.21 Acute and chronic respiratory failure with hypoxia; J44.0 Chronic obstructive pulmonary disease with (acute) lower respiratory infection; J44.1 Chronic obstructive pulmonary disease with (acute) exacerbation; I48.21 Permanent atrial fibrillation; E87.20 Acidosis, unspecified; I48.92 Unspecified atrial flutter; K74.60 Unspecified cirrhosis of liver; D64.9 Anemia, unspecified; D69.6 Thrombocytopenia, unspecified; E03.9 Hypothyroidism, unspecified; E78.5 Hyperlipidemia, unspecified; E83.42 Hypomagnesemia; F17.210 Nicotine dependence, cigarettes, uncomplicated; H91.90 Unspecified hearing loss, unspecified ear; I07.1 Rheumatic tricuspid insufficiency; I25.10 Atherosclerotic heart disease of native coronary artery without angina pectoris; I25.2 Old myocardial infarction; K21.9 Gastro-esophageal reflux disease without esophagitis; I27.20 Pulmonary hypertension, unspecified; Z20.822 Contact with and (suspected) exposure to COVID-19; Z95.3 Presence of xenogenic heart valve; Z95.1 Presence of aortocoronary bypass graft; Z79.01 Long term (current) use of anticoagulants; H35.30 Unspecified macular degeneration; Z79.51 Long term (current) use of inhaled steroids; Z79.82 Long term (current) use of aspirin; Z79.890 Hormone replacement therapy; Z79.899 Other long term (current) drug therapy; Z82.49 Family history of ischemic heart disease and other diseases of the circulatory system; Z83.3 Family history of diabetes mellitus; Z85.46 Personal history of malignant neoplasm of prostate; Z86.73 Personal history of transient ischemic attack (TIA), and cerebral infarction without residual deficits; Z87.01 Personal history of pneumonia (recurrent); Z90.49 Acquired absence of other specified parts of digestive tract; Z90.79 Acquired absence of other genital organ(s); Z98.61 Coronary angioplasty status; Z87.440 Personal history of urinary (tract) infections; Z71.3 Dietary counseling and surveillance; Z71.6 Tobacco abuse counseling; Z28.311 Partially vaccinated for COVID-19
CPT/HCPCS: 36415; 71046; 80048; 80053; 83605; 83735; 83880; 85025; 85027; 85610; 87502; 87635; 93005; 93306; 94640; 94760; 96374; 99285

== ENCOUNTER 2022-06-03 03:32 | Inpatient (IN) | payer OTHER, MEDICARE, BC ==
[2022-06-03 04:55] LABS: Basophils % (A) 0 %; Eosinophils # (A) 0.1 k/uL (0-0.7); Eosinophils % (A) 1 %; HCT 36.3 % (39.0-53.0); HGB 11.3 gm/dL (13.0-17.5); Hypochromasia Marked; Lymphocytes # (A) 0.5 k/uL (1.0-4.8); Lymphocytes % (A) 7 %; MCH 27.7 pg (25.0-35.0); MCV 89.3 fL (80.0-100.0); Monocytes # (A) 0.4 k/uL (0-1.0); Monocytes % (A) 5 %; Neutrophils # (A) 6.5 k/uL (1.3-7.7); Neutrophils % (A) 86 %; Platelet Count 113 k/uL (150-450); RBC 4.06 m/uL (4.30-5.90); RDW 15.6 % (11.5-15.5); WBC 7.6 k/uL (3.8-10.6)
[2022-06-03 05:04] LABS: INR 1.1 (<1.2); Partial Thromboplastin Time 32.7 sec (22.0-30.0); Prothrombin Time 11.7 sec (9.0-12.0)
[2022-06-03 05:11] LABS: Albumin 4.2 g/dL (3.5-5.0); Calcium 8.1 mg/dL (8.4-10.2); Magnesium 1.7 mg/dL (1.6-2.3); Potassium 4.2 mmol/L (3.5-5.1); Total Bilirubin 0.9 mg/dL (0.2-1.3); Total Protein 7.5 g/dL (6.3-8.2)
[2022-06-03] MEDS ORDERED: ALBUTEROL NEBULIZED 2.5 MG/3 ML INHALATION STA (05:36)
[2022-06-03] MEDS ORDERED: IPRATROPIUM-ALBUTEROL 3 ML NEB INHALATION STA (05:36)
[2022-06-03] MEDS ORDERED: methylPREDNISolone SOD SUCCI 125 MG/2 ML VIAL IV STA (05:36)
--- NOTE | 2022-06-03 05:54 | XR ---
EXAMINATION TYPE: XR chest 2V DATE OF EXAM: 06/03/2022 COMPARISON: NONE HISTORY: Short of breath TECHNIQUE: 2 views FINDINGS: There are sternal wires. Valve surgery. Thoracic aorta is atheromatous. There is no pleural effusion. There are no hilar masses. Bony thorax is intact. There is slight coarsening of interstiti al markings. IMPRESSION: Mild pulmonary fibrosis. There is improvement in the pulmonary congestion compared to las t exam no definite heart failure.
[2022-06-03] MEDS ORDERED: ACETAMINOPHEN TAB 325 MG TAB PO PRN (05:59)
[2022-06-03] MEDS ORDERED: NALOXONE 0.4 MG/ML 1 ML VIAL IVP PRN (05:59)
--- NOTE | 2022-06-03 06:04 | ED ---
General Adult HPI - General Chief complaint: Shortness of Breath Stated complaint: MUNIR Time Seen by Provider: 06/03/22 03:36 Source: patient, EMS, RN notes reviewed, old records reviewed Mode of arrival: EMS Limitations: no limitations - History of Present Illness Initial comments: 71-year-old male presenting with increased cough and dyspnea history of COPD and CHF. Patient is on home oxygen. He denies fever. Denies chest pain. He was recently admitted to this institution discharged about one week ago. - Related Data Home Medications Medication Instructions Recorded Confirmed Apixaban [Eliquis] 5 mg PO BID 08/04/20 05/17/22 Levothyroxine Sodium [Euthyrox] 50 mcg PO DAILY 08/04/20 05/17/22 Aspirin EC [Ecotrin Low Dose] 81 mg PO DAILY 12/24/20 05/17/22 Mirtazapine [Remeron] 15 mg PO HS 12/24/20 05/17/22 Pantoprazole Sodium 40 mg PO AC-BRKFST 12/24/20 05/17/22 Thiamine [Vitamin B-1] 100 mg PO DAILY 12/24/20 05/17/22 Atorvastatin [Lipitor] 20 mg PO HS 10/15/21 05/17/22 Escitalopram Oxalate [Lexapro] 20 mg PO DAILY 10/15/21 05/17/22 Fluticasone Propion/Salmeterol 1 puff INHALATION RT-BID 10/15/21 05/17/22 [Wixela 250-50 Inhub] Lidocaine 4% Cream [Lmx 4] 1 applic TOPICAL DAILY PRN 10/15/21 05/17/22 Metoprolol Tartrate [Lopressor] 12.5 mg PO BID 11/03/21 05/17/22 Albuterol Nebulized [Ventolin 2.5 mg INHALATION RT-Q4H 05/17/22 05/17/22 Nebulized] Lidocaine 5% Patch [Lidoderm 5% 1 patch TOPICAL DAILY PRN 05/17/22 05/17/22 Patch] Previous Rx's Medication Instructions Recorded Furosemide [Lasix] 40 mg PO DAILY 30 Days #30 tab 05/21/22 Sildenafil [Revatio] 20 mg PO TID 30 Days #90 tab 05/21/22 Allergies Allergy/AdvReac Type Severity Reaction Status Date / Time primidone Allergy Rash/Hives Verified 06/03/22 03:41 gabapentin AdvReac DIZZINESS Verified 06/03/22 03:41 Review of Systems ROS Statement: Those systems with pertinent positive or pertinent negative responses have been documented in the HPI. ROS Other: All systems not noted in ROS Statement are negative. Past Medical History Past Medical History: Atrial Fibrillation, Atrial Flutter, Coronary Artery Disease (CAD), Cancer, Chest Pain / Angina, Heart Failure, COPD, CVA/TIA, Deep Vein Thrombosis (DVT), Eye Disorder, GERD/Reflux, GI Bleed, Hearing Disorder / Deafness, Hyperlipidemia, Hypertension, Liver Disease, Memory Impairment, Pneumonia, Vascular Disorder Additional Past Medical History / Comment(s): Stable dissection of the descending aorta, chronic atrial fibrillation and is anticoagulated with warfarin, aortic valve replacement with a bioprosthetic valve, pulmonary hypertension, chronic hypoxic respiratory failure with home O2 at , previous pneumonia 2008 and 2014, prostate cancer with prostatectomy, DVT R lower leg x2, macular degeneration L eye, left arm fracture, chronic tinnitus in both ears, gastritis, lower GIm bleed, UTI, liver cirrhosis related to history of alcoholism, hepatitis C at age 14yrs., feeding tube, alcoholism Last Myocardial Infarction Date:: unsure History of Any Multi-Drug Resistant Organisms: None Reported Date of last positivie culture/infection: None MDRO Source:: None Past Surgical History: Cardiac Valve Replacement, Cholecystectomy, Coronary Bypass/CABG, Heart Catheterization, Heart Catheterization With Stent, Hernia Repair, Orthopedic Surgery, Prostate Surgery Additional Past Surgical History / Comment(s): Aortic valve replacement, prostatectomy, right inguinal hernia repair 2, bilateral knee arthroscopy, colonoscopy/polypectomy, EGD, right leg varicose vein stripping, removal of a blood clot from the right lower extremity, cervical surgery d/t injury in [place] and removal of shrapnel's from the right shoulder, feeding tube Past Anesthesia/Blood Transfusion Reactions: No Reported Reaction Date of Last Stent Placement:: 2016 Past Psychological History: No Psychological Hx Reported Smoking Status: Current some day smoker Past Alcohol Use History: Rare Past Drug Use History: None Reported - Past Family History Mother Family Medical History: Diabetes Mellitus Additional Family Medical History / Comment(s): Mother at age 74 from patricio betic complications. Father Family Medical History: Congestive Heart Failure (CHF) Additional Family Medical History / Comment(s): Father at age 91 yrs. General Exam Limitations: no limitations General appearance: alert, in distress Head exam: Present: atraumatic, normocephalic Eye exam: Present: normal appearance, PERRL ENT exam: Present: mucous membranes dry Neck exam: Present: normal inspection. Absent: tenderness, meningismus Respiratory exam: Present: respiratory distress, wheezes, rhonchi Cardiovascular Exam: Present: regular rate, normal rhythm GI/Abdominal exam: Present: soft. Absent: distended, tenderness Extremities exam: Present: pedal edema Neurological exam: Present: alert Skin exam: Present: warm, dry, intact Course Vital Signs 06/03/22 06/03/22 06/03/22 03:41 05:56 06:09 Temperature 98.7 F Pulse Rate 104 H 106 H 116 H Respiratory 15 Rate Blood Pressure 138/71 O2 Sat by Pulse 94 L Oximetry Medical Decision Making - Medical Decision Making 31-year-old male presenting with cough and dyspnea. Patient has rhonchorous cough bilaterally. He has a normal white blood cell count at 7.6, stable anemia. He has an elevated BNP, negative troponin, normal electrolytes. Chest x-ray showing only fibrosis. Patient will be admitted for multifactorial dyspnea, COPD, pulmonary fibrosis. Case discussed with Dr. Momin who will admit. - Lab Data Result diagrams: 06/03/22 04:24 06/03/22 04:24 Lab Results 06/03/22 06/03/22 06/03/22 Range/Units 04:24 04:24 04:24 WBC 7.6 (3.8-10.6) k/uL RBC 4.06 L (4.30-5.90) m/uL Hgb 11.3 L (13.0-17.5) gm/dL Hct 36.3 L (39.0-53.0) % MCV 89.3 (80.0-100.0) fL MCH 27.7 (25.0-35.0) pg MCHC 31.0 (31.0-37.0) g/dL RDW 15.6 H (11.5-15.5) % Plt Count 113 L (150-450) k/uL MPV 9.0 Neutrophils % 86 % Lymphocytes % 7 % Monocytes % 5 % Eosinophils % 1 % Basophils % 0 % Neutrophils # 6.5 (1.3-7.7) k/uL Lymphocytes # 0.5 L (1.0-4.8) k/uL Monocytes # 0.4 (0-1.0) k/uL Eosinophils # 0.1 (0-0.7) k/uL Basophils # 0.0 (0-0.2) k/uL Hypochromasia Marked PT 11.7 (9.0-12.0) sec INR 1.1 (<1.2) APTT 32.7 H (22.0-30.0) sec Sodium 135 L (137-145) mmol/L Potassium 4.2 (3.5-5.1) mmol/L Chloride 92 L (98-107) mmol/L Carbon Dioxide 34 H (22-30) mmol/L Anion Gap 9 mmol/L BUN 14 (9-20) mg/dL Creatinine 0.97 (0.66-1.25) mg/dL Est GFR (CKD-EPI)AfAm 90 (>60 ml/min/1.73 sqM) Est GFR (CKD-EPI)NonAf 78 (>60 ml/min/1.73 sqM) Glucose 144 H (74-99) mg/dL Plasma Lactic Acid Silvino (0.7-2.0) mmol/L Calcium 8.1 L (8.4-10.2) mg/dL Magnesium 1.7 (1.6-2.3) mg/dL Total Bilirubin 0.9 (0.2-1.3) mg/dL AST 33 (17-59) U/L ALT 18 (4-49) U/L Alkaline Phosphatase 160 H (38-126) U/L Troponin I (0.000-0.034) ng/mL NT-Pro-B Natriuret Pep pg/mL Total Protein 7.5 (6.3-8.2) g/dL Albumin 4.2 (3.5-5.0) g/dL 06/03/22 06/03/22 06/03/22 Range/Units 04:24 04:24 04:24 WBC (3.8-10.6) k/uL RBC (4.30-5.90) m/uL Hgb (13.0-17.5) gm/dL Hct (39.0-53.0) % MCV (80.0-100.0) fL MCH (25.0-35.0) pg MCHC (31.0-37.0) g/dL RDW (11.5-15.5) % Plt Count (150-450) k/uL MPV Neutrophils % % Lymphocytes % % Monocytes % % Eosinophils % % Basophils % % Neutrophils # (1.3-7.7) k/uL Lymphocytes # (1.0-4.8) k/uL Monocytes # (0-1.0) k/uL Eosinophils # (0-0.7) k/uL Basophils # (0-0.2) k/uL Hypochromasia PT (9.0-12.0) sec INR (<1.2) APTT (22.0-30.0) sec Sodium (137-145) mmol/L Potassium (3.5-5.1) mmol/L Chloride (98-107) mmol/L Carbon Dioxide (22-30) mmol/L Anion Gap mmol/L BUN (9-20) mg/dL Creatinine (0.66-1.25) mg/dL Est GFR (CKD-EPI)AfAm (>60 ml/min/1.73 sqM) Est GFR (CKD-EPI)NonAf (>60 ml/min/1.73 sqM) Glucose (74-99) mg/dL Plasma Lactic Acid Silvino 1.6 (0.7-2.0) mmol/L Calcium (8.4-10.2) mg/dL Magnesium (1.6-2.3) mg/dL Total Bilirubin (0.2-1.3) mg/dL AST (17-59) U/L ALT (4-49) U/L Alkaline Phosphatase (38-126) U/L Troponin I 0.013 (0.000-0.034) ng/mL NT-Pro-B Natriuret Pep 2670 pg/mL Total Protein (6.3-8.2) g/dL Albumin (3.5-5.0) g/dL Disposition Clinical Impression: Congestive heart failure, Chronic obstructive pulmonary disease with acute exacerbation, Dyspnea, Hypoxia Disposition: ADMITTED IP TO THIS HOSP Condition: Stable Is patient prescribed a controlled substance at d/c from ED?: No Time of Disposition: 06:47
[2022-06-03] MEDS: IPRATROPIUM-ALBUTEROL 3 ML NEB INHALATION SCH ×4 (07:18→21:34)
[2022-06-03] MEDS: LEVOTHYROXINE 50 MCG TAB PO SCH (12:11)
[2022-06-03] MEDS: PANTOPRAZOLE 40 MG TABLET PO SCH (12:11)
[2022-06-03] MEDS: METOPROLOL TARTRATE 12.5 MG TAB PO SCH ×2 (12:11→23:44)
[2022-06-03] MEDS: ESCITALOPRAM 20 MG TAB PO SCH (12:11)
[2022-06-03] MEDS: APIXABAN 5 MG TAB PO SCH ×2 (12:11→23:44)
[2022-06-03] MEDS: ASPIRIN 81 MG PO SCH (12:12)
[2022-06-03] MEDS: THIAMINE 100 MG TAB PO SCH (12:12)
[2022-06-03] MEDS: methylPREDNISolone SOD SUCCI 125 MG/2 ML VIAL IV SCH ×3 (12:12→23:44)
[2022-06-03] MEDS: FUROSEMIDE 40 MG TAB PO SCH (12:12)
[2022-06-03] MEDS: SILDENAFIL 20 MG TAB PO SCH ×3 (12:12→23:44)
--- NOTE | 2022-06-03 14:17 | P.CNPUL ---
History of Present Illness Consult date: 06/03/22 Requesting physician: Louise Danielson Reason for consult: dyspnea, cough, COPD, hypoxemia, abnormal CXR/CT Chief complaint: Shortness of breath. History of present illness: Pulmonary consult dated 06/03/2022. 71-year-old male with a history of multiple medical problems including digestive heart failure, severe COPD, severe pulmonary hypertension, coronary artery disease, with a previous stent to the LAD, atrial fibrillation, previous aortic valve replacement, hyperlipidemia, and previous heavy tobacco use. The patient is seen today in the emergency room, room 2. He's currently on 6 units of oxygen. Saturations are 94%. He's not receiving any IV fluids. I was asked to see the patient in consultation. The patient typically sees my partner or his COPD. At some point in the emergency department, the patient did develop atrial fibrillation with rapid ventricular response. His admission diagnosis was congestive heart failure, COPD exacerbation, and hypoxia. White count 7.6, he moglobin 11.3, hematocrit 36.3, with a platelet count of 113,000. Sodium 135, potassium 4.2, chlorides 92, CO2 34, BUN 14, and creatinine 0.97. N-terminal proBNP was 2670. Testing for coronavirus was negative. Chest x-ray shows mild pulmonary fibrosis and improvement in pulmonary congestion compared to the prior x-ray. Review of Systems REVIEW OF SYSTEMS: CONSTITUTIONAL: [Negative.] NEUROLOGIC: [ Negative.] HEENT: [ Negative.] CARDIAC: [Negative.] PULMONARY: Shortness of breath, acute on chronic. GI: [Negative.] : [Negative.] RHEUMATOLOGIC: [ Negative.] IMMUNOLOGIC: [ Negative.] ENDOCRINE: [Negative. ] DERMATOLOGIC: [Negative.] Past Medical History Past Medical History: Atrial Fibrillation, Atrial Flutter, Coronary Artery Disease (CAD), Cancer, Chest Pain / Angina, Heart Failure, COPD, CVA/TIA, Deep Vein Thrombosis (DVT), Eye Disorder, GERD/Reflux, GI Bleed, Hearing Disorder / Deafness, Hyperlipidemia, Hypertension, Liver Disease, Memory Impairment, Pneumonia, Vascular Disorder Additional Past Medical History / Comment(s): Stable dissection of the descending aorta, chronic atrial fibrillation and is anticoagulated with warfarin, aortic valve replacement with a bioprosthetic valve, pulmonary hypertension, chronic hypoxic respiratory failure with home O2 at , previous pneumonia 2008 and 2014, prostate cancer with prostatectomy, DVT R lower leg x2, macular degeneration L eye, left arm fracture, chronic tinnitus in both ears, gastritis, lower GIm bleed, UTI, liver cirrhosis related to history of alcoholism, hepatitis C at age 14yrs., feeding tube, alcoholism Last Myocardial Infarction Date:: unsure History of Any Multi-Drug Resistant Organisms: None Reported Date of last positivie culture/infection: None MDRO Source:: None Past Surgical History: Cardiac Valve Replacement, Cholecystectomy, Coronary Bypass/CABG, Heart Catheterization, Heart Catheterization With Stent, Hernia Repair, Orthopedic Surgery, Prostate Surgery Additional Past Surgical History / Comment(s): Aortic valve replacement, prostatectomy, right inguinal hernia repair 2, bilateral knee arthroscopy, colonoscopy/polypectomy, EGD, right leg varicose vein stripping, removal of a blood clot from the right lower extremity, cervical surgery d/t injury in [place] and removal of shrapnel's from the right shoulder, feeding tube Past Anesthesia/Blood Transfusion Reactions: No Reported Reaction Date of Last Stent Placement:: 2016 Past Psychological History: No Psychological Hx Reported Smoking Status: Current some day smoker Past Alcohol Use History: Rare Past Drug Use History: None Reported - Past Family History Mother Family Medical History: Diabetes Mellitus Additional Family Medical History / Comment(s): Mother at age 74 from diabetic complications. Father Family Medical History: Congestive Heart Failure (CHF) Additional Family Medical History / Comment(s): Father at age 91 yrs. Medications and Allergies Home Medications Medication Instructions Recorded Confirmed Type Apixaban [Eliquis] 5 mg PO BID 08/04/20 06/03/22 History Levothyroxine Sodium [Euthyrox] 50 mcg PO DAILY 08/04/20 06/03/22 History Aspirin EC [Ecotrin Low Dose] 81 mg PO DAILY 12/24/20 06/03/22 History Mirtazapine [Remeron] 15 mg PO HS 12/24/20 06/03/22 History Pantoprazole Sodium 40 mg PO AC-BRKFST 12/24/20 06/03/22 History Thiamine [Vitamin B-1] 100 mg PO DAILY 12/24/20 06/03/22 History Atorvastatin [Lipitor] 20 mg PO HS 10/15/21 06/03/22 History Escitalopram Oxalate [Lexapro] 20 mg PO DAILY 10/15/21 06/03/22 History Fluticasone Propion/Salmeterol 1 puff INHALATION RT-BID 10/15/21 06/03/22 History [Wixela 250-50 Inhub] Lidocaine 4% Cream [Lmx 4] 1 applic TOPICAL DAILY PRN 10/15/21 06/03/22 History Metoprolol Tartrate [Lopressor] 12.5 mg PO BID 11/03/21 06/03/22 History Albuterol Nebulized [Ventolin 2.5 mg INHALATION RT-Q4H 05/17/22 06/03/22 History Nebulized] Lidocaine 5% Patch [Lidoderm 5% 1 patch TOPICAL DAILY PRN 05/17/22 06/03/22 History Patch] Furosemide [Lasix] 40 mg PO DAILY 30 Days #30 tab 05/21/22 06/03/22 Rx Sildenafil [Revatio] 20 mg PO TID 30 Days #90 tab 05/21/22 06/03/22 Rx Allergies Allergy/AdvReac Type Severity Reaction Status Date / Time primidone Allergy Rash/Hives Verified 06/03/22 08:40 gabapentin AdvReac DIZZINESS Verified 06/03/22 08:40 Physical Exam Osteopathic Statement: *. No significant issues noted on an osteopathic structural exam other than those noted in the History and Physical/Consult. Vitals: Vital Signs Temp Pulse Resp BP Pulse Ox 06/03/22 12:16 96 20 117/73 88 L 06/03/22 09:36 106 H 18 138/71 93 L 06/03/22 08:23 98.8 F 06/03/22 08:20 92 18 138/71 88 L 06/03/22 07:26 108 H 06/03/22 07:16 100 06/03/22 06:09 116 H 06/03/22 05:56 106 H 06/03/22 03:41 98.7 F 104 H 15 138/71 94 L Intake and Output 06/02/22 06/03/22 06/03/22 22:59 06:59 14:59 Other: Weight 65.771 kg Mild conversational dyspnea, oriented, but a poor historian, without audible wheezing, use of accessory muscles. HEENT examination is grossly unremarkable. Neck supple. Full range of motion. No adenopathy thyromegaly or neck vein distention. Cardiovascular examination reveals regular rhythm rate. S1-S2 normal. No S3 or S4. No discernible murmur noted. Heart sounds are distant. Heart rate 96 bpm. Lungs reveal scattered expiratory wheezes, coarse rhonchi, and bibasilar crac kles. Breath sounds equal bilaterally. Breath sounds are diminished throughout. Saturations are between 89 and 93%. Abdomen soft bowel sounds are heard. No masses or tenderness. Extremities are intact. No cyanosis or clubbing. Mild edema is noted. Skin is without rash or lesion. Neurologic examination is difficult, the patient is not particularly cooperative. Results - Laboratory Findings CBC and BMP: 06/03/22 04:24 06/03/22 04:24 PT/INR, D-dimer PT 11.7 sec (9.0-12.0) 06/03/22 04:24 INR 1.1 (<1.2) 06/03/22 04:24 Abnormal lab findings: Abnormal Labs 06/03/22 06/03/22 06/03/22 04:24 04:24 04:24 RBC 4.06 L Hgb 11.3 L Hct 36.3 L RDW 15.6 H Plt Count 113 L Lymphocytes # 0.5 L APTT 32.7 H Sodium 135 L Chloride 92 L Carbon Dioxide 34 H Glucose 144 H Calcium 8.1 L Alkaline Phosphatase 160 H - Diagnostic Findings Chest x-ray: image reviewed Assessment and Plan Assessment: Acute hypoxemic respiratory failure, secondary to COPD exacerbation. The patient has severe oxygen-dependent COPD. FEV1 is 40% of predicted. Chronic hypoxemic respiratory failure. CAD with previous coronary intervention and stenting. History of aortic valve replacement, with a bioprosthetic aortic valve. Valvular heart disease. Chronic atrial fibrillation. History of hypertension. Hyperlipidemia. Moderate to severe pulmonary hypertension. Prostate cancer, status post prostatectomy. Alcoholic liver disease/cirrhosis. Prior history of GI bleed. Prior history of aortic dissection. Macular degeneration. Previous history of right lower extremity DVT. Plan: Plan dated 06/03/2022. The patient should receive albuterol sulfate and ipratropium bromide, 4 times a day and when necessary. The patient should also get Solu-Medrol, 60 mg, every 6 hours. Symbicort should be discontinued in favor of budesonide 1 mg, mixed with formoterol, 20 g, twice a day. A pro-calcitonin level should be done. Currently, the patient's on azithromycin. Additional recommendations and suggestions are forthcoming. Overall prognosis remains very poor. Labs, x- rays, medications are reviewed. The patient is seen in the emergency room, room 2. Time with Patient: Greater than 30
--- NOTE | 2022-06-03 14:18 | P.HPIM ---
History of Present Illness H&P Date: 06/03/22 History of Presenting Illness: Patient is a 71-year-old male with a past medical history COPD, HTN, HLD, chronic diastolic heart failure with previously known EF of 50-55%, permanent atrial fibrillation, CAD, pulmonary hypertension, TIA who presents with dyspnea and cough. The patient reports an increased cough for the last several days which produces chest pain when he coughs. His cough is congested and primarily nonproductive. He is on 4 L oxygen via nasal cannula at home and continues to smoke one pack of cigarettes per day despite his COPD. His chest pain only occurs when he coughs and does not radiate anywhere else. He was recently hospitalized for acute exacerbation of CHF requiring diuresis. In the emergency room patient was afebrile with a temperature of 98.8, heart rate of 106, respirations 18, and blood pressure 138/71. He was 93% SpO2 with 7 L oxygen via nasal cannula. CBC showed mild anemia with hemoglobin of 11.3 and hematocrit of 36.3. PTT was elevated at 32.7. Chemistry showed mildly low sodium of 135, chloride 92 and carbon dioxide 34. In addition his glucose level was elevated at 144 and his calcium was low at 8.1, alkaline phosphatase was 160. Chest x-ray was significant for mild pulmonary fibrosis. EKG showed atrial fibrillation with rapid ventricular response with a heart rate of 103, possible right ventricular hypertrophy and moderate ST depression. Pulmonary was consulted by emergency room physician. Review of systems: Pertinent positives and negatives as discussed in HPI, a complete review of systems was performed and all other systems are negative. Physical exam: Vital signs reviewed and stable. General: Nontoxic, no distress and appears stated age. Derm: Skin warm and dry, normal coloration for ethnicity. Head: Atraumatic, normocephalic and symmetric. Eyes: EOMs intact. No conjunctivitis. Mouth: no lip lesions, mucus membranes moist Cardiovascular: atrial fibrillation with RVR, normal radial pulses and cap refill < 2 seconds. Lungs: Respirations regular. O2 at 7L/NC. Lungs with coarse ronchi bilaterally. Congested cough, non-productive. Abdominal: soft, nontender to palpation, no guarding, no appreciable organomegaly Ext: ROM intact. No gross muscle atrophy, trace bilat lower leg edema, no contractures Neuro: Speech clear, face symmetrical and CN II-XII grossly intact with no noted focal neuro deficits Psych: Alert and oriented to person, place, time, and situation. Appropriate affect. Assessment and Plan of Care: Acute Exacerbation COPD Acute on chronic respiratory failure Pulmonary Fibrosis -Oxygen supplementation to maintain SpO2 of 90%. -Solu medrol -Azithromycin daily x5 days -Duoneb NMT QID and q4hr prn for SOB/wheezing -Continue Symbicort -Consult pulmonology -Consult Palliative care due to end stage COPD Permanent Afib with RVR -Rate control, continue home metoprolol -Continue Eliquis, chronically anticoagulated -Troponin normal Hypocalcemia -recheck in a.m -replete as necessary Chronic Diastolic HF CAD Pulmonary HTN Hyperlipidemia HTN -Continue furosemide 40mg po daily -Continue statin, ASA -Continue sildenafil for pulmonary htn GI prophylaxis via protonix The patient is admitted with an anticipated greater than 2 midnight stay for evaluation of acute exacerbation of COPD CODE STATUS:Full DVT prophylaxis: eliquis Discussed with: patient, nursing Anticipated discharge date: 1- [address]: home A total of 45 minutes was spent on the care of this complex patient more than 50% of the time was spent in counseling and care coordination. I was present for 100% of the history and physical exam as well as the medical decision making, and I agree with the documented findings and plan above. Past Medical History Past Medical History: Atrial Fibrillation, Atrial Flutter, Coronary Artery Disease (CAD), Cancer, Chest Pain / Angina, Heart Failure, COPD, CVA/TIA, Deep Vein Thrombosis (DVT), Eye Disorder, GERD/Reflux, GI Bleed, Hearing Disorder / Deafness, Hyperlipidemia, Hypertension, Liver Disease, Memory Impairment, Pneumonia, Vascular Disorder Additional Past Medical History / Comment(s): Stable dissection of the descending aorta, chronic atrial fibrillation and is anticoagulated with warfarin, aortic valve replacement with a bioprosthetic valve, pulmonary hypertension, chronic hypoxic respiratory failure with home O2 at , previous pneumonia 2008 and 2014, prostate cancer with prostatectomy, DVT R lower leg x2, macular degeneration L eye, left arm fracture, chronic tinnitus in both ears, gastritis, lower GIm bleed, UTI, liver cirrhosis related to history of alcoholism, hepatitis C at age 14yrs., feeding tube, alcoholism Last Myocardial Infarction Date:: unsure History of Any Multi-Drug Resistant Organisms: None Reported Date of last positivie culture/infection: None MDRO Source:: None Past Surgical History: Cardiac Valve Replacement, Cholecystectomy, Coronary Bypass/CABG, Heart Catheterization, Heart Catheterization With Stent, Hernia Repair, Orthopedic Surgery, Prostate Surgery Additional Past Surgical History / Comment(s): Aortic valve replacement, prostatectomy, right inguinal hernia repair 2, bilateral knee arthroscopy, colonoscopy/polypectomy, EGD, right leg varicose vein stripping, removal of a blood clot from the right lower extremity, cervical surgery d/t injury in [place] and removal of shrapnel's from the right shoulder, feeding tube Past Anesthesia/Blood Transfusion Reactions: No Reported Reaction Date of Last Stent Placement:: 2016 Past Psychological History: No Psychological Hx Reported Smoking Status: Current some day smoker Past Alcohol Use History: Rare Past Drug Use History: None Reported - Past Family History Mother Family Medical History: Diabetes Mellitus Additional Family Medical History / Comment(s): Mother at age 74 from diabetic complications. Father Family Medical History: Congestive Heart Failure (CHF) Additional Family Medical History / Comment(s): Father at age 91 yrs. Medications and Allergies Home Medications Medication Instructions Recorded Confirmed Type Apixaban [Eliquis] 5 mg PO BID 08/04/20 06/03/22 History Levothyroxine Sodium [Euthyrox] 50 mcg PO DAILY 08/04/20 06/03/22 History Aspirin EC [Ecotrin Low Dose] 81 mg PO DAILY 12/24/20 06/03/22 History Mirtazapine [Remeron] 15 mg PO HS 12/24/20 06/03/22 History Pantoprazole Sodium 40 mg PO AC-BRKFST 12/24/20 06/03/22 History Thiamine [Vitamin B-1] 100 mg PO DAILY 12/24/20 06/03/22 History Atorvastatin [Lipitor] 20 mg PO HS 10/15/21 06/03/22 History Escitalopram Oxalate [Lexapro] 20 mg PO DAILY 10/15/21 06/03/22 History Fluticasone Propion/Salmeterol 1 puff INHALATION RT-BID 10/15/21 06/03/22 History [Wixela 250-50 Inhub] Lidocaine 4% Cream [Lmx 4] 1 applic TOPICAL DAILY PRN 10/15/21 06/03/22 History Metoprolol Tartrate [Lopressor] 12.5 mg PO BID 11/03/21 06/03/22 History Albuterol Nebulized [Ventolin 2.5 mg INHALATION RT-Q4H 05/17/22 06/03/22 History Nebulized] Lidocaine 5% Patch [Lidoderm 5% 1 patch TOPICAL DAILY PRN 05/17/22 06/03/22 History Patch] Furosemide [Lasix] 40 mg PO DAILY 30 Days #30 tab 05/21/22 06/03/22 Rx Sildenafil [Revatio] 20 mg PO TID 30 Days #90 tab 05/21/22 06/03/22 Rx Allergies Allergy/AdvReac Type Severity Reaction Status Date / Time primidone Allergy Rash/Hives Verified 06/03/22 08:40 gabapentin AdvReac DIZZINESS Verified 06/03/22 08:40 Physical Exam Osteopathic Statement: *. No significant issues noted on an osteopathic structural exam other than those noted in the History and Physical/Consult. Vitals: Vital Signs Temp Pulse Resp BP Pulse Ox 06/03/22 09:36 106 H 18 138/71 93 L 06/03/22 08:23 98.8 F 06/03/22 08:20 92 18 138/71 88 L 06/03/22 07:26 108 H 06/03/22 07:16 100 06/03/22 06:09 116 H 06/03/22 05:56 106 H 06/03/22 03:41 98.7 F 104 H 15 138/71 94 L Intake and Output 06/02/22 06/03/22 06/03/22 22:59 06:59 14:59 Other: Weight 65.771 kg Results CBC & Chem 7: 06/03/22 04:24 06/03/22 04:24 Labs: Abnormal Lab Results - Last 24 Hours (Table) 06/03/22 06/03/22 06/03/22 Range/Units 04:24 04:24 04:24 RBC 4.06 L (4.30-5.90) m/uL Hgb 11.3 L (13.0-17.5) gm/dL Hct 36.3 L (39.0-53.0) % RDW 15.6 H (11.5-15.5) % Plt Count 113 L (150-450) k/uL Lymphocytes # 0.5 L (1.0-4.8) k/uL APTT 32.7 H (22.0-30.0) sec Sodium 135 L (137-145) mmol/L Chloride 92 L (98-107) mmol/L Carbon Dioxide 34 H (22-30) mmol/L Glucose 144 H (74-99) mg/dL Calcium 8.1 L (8.4-10.2) mg/dL Alkaline Phosphatase 160 H (38-126) U/L
[2022-06-03] MEDS: IPRATROPIUM-ALBUTEROL 3 ML NEB INHALATION PRN ×2 (14:26→18:14)
[2022-06-03] MEDS ORDERED: AZITHROMYCIN 500 MG in SODIUM CHLORIDE 0.9% 250 ML IVPB SCH (16:00)
[2022-06-03] MEDS: SYMBICORT 80-4.5 MCG INHALER INHALATION SCH (21:34)
[2022-06-03] MEDS: ATORVASTATIN 20 MG TAB PO SCH (23:44)
[2022-06-04] MEDS: MIRTAZAPINE 15 MG TAB PO SCH ×2 (00:22→21:29)
[2022-06-04] MEDS: LEVOTHYROXINE 50 MCG TAB PO SCH (06:13)
[2022-06-04] MEDS: methylPREDNISolone SOD SUCCI 125 MG/2 ML VIAL IV SCH ×3 (06:13→18:08)
[2022-06-04] MEDS: SYMBICORT 80-4.5 MCG INHALER INHALATION SCH ×2 (07:20→20:13)
[2022-06-04] MEDS: IPRATROPIUM-ALBUTEROL 3 ML NEB INHALATION SCH ×4 (07:20→20:13)
[2022-06-04] MEDS: FUROSEMIDE 40 MG TAB PO SCH (09:29)
[2022-06-04] MEDS: METOPROLOL TARTRATE 12.5 MG TAB PO SCH ×2 (09:29→21:28)
[2022-06-04] MEDS: THIAMINE 100 MG TAB PO SCH (09:29)
[2022-06-04] MEDS: ESCITALOPRAM 20 MG TAB PO SCH (09:29)
[2022-06-04] MEDS: ASPIRIN 81 MG PO SCH (09:29)
[2022-06-04] MEDS: APIXABAN 5 MG TAB PO SCH ×2 (09:29→21:29)
[2022-06-04] MEDS: PANTOPRAZOLE 40 MG TABLET PO SCH (09:29)
[2022-06-04] MEDS: SILDENAFIL 20 MG TAB PO SCH ×3 (09:30→21:29)
--- NOTE | 2022-06-04 10:44 | P.PN ---
Subjective Progress Note Date: 06/04/22 Progress note: Patient says his breathing is better today, but still labored. He is required 6 L of nasal cannula to saturate 98%. Review of systems: Pertinent positives and negatives as discussed in HPI, a complete review of systems was performed and all other systems are negative. Physical exam: Gen: awake, alert HEENT: normocephalic, atraumatic, good hearing acuity, moist mucous membranes Resp: good air exchange, breathing comfortably with no accessory muscle use, diffuse wheezing with increased crackles in the bases CVS: good distal perfusion x 4, tachycardic, no murmurs GI: soft, NTTP, ND : no SPT, no CVAT, pro catheter not present MSK: no pitting edema, no clubbing Neuro: non-focal, moving all extremities Psych: cooperative, euthymic mood Assessment and Plan of Care: Acute Exacerbation COPD Acute on chronic respiratory failure Pulmonary Fibrosis -Oxygen supplementation to maintain SpO2 of 90%. -Solu medrol -Azithromycin daily x5 days -Duoneb NMT QID and q4hr prn for SOB/wheezing -Continue Symbicort -Consult pulmonology -Consult Palliative care due to end stage COPD Permanent Afib with RVR -Rate control, continue home metoprolol -Continue Eliquis, chronically anticoagulated -Troponin normal Hypocalcemia -recheck in a.m -replete as necessary Chronic Diastolic HF CAD Pulmonary HTN Hyperlipidemia HTN -Continue furosemide 40mg po daily -Continue statin, ASA -Continue sildenafil for pulmonary htn GI prophylaxis via protonix The patient is admitted with an anticipated greater than 2 midnight stay for evaluation of acute exacerbation of COPD CODE STATUS:Full DVT prophylaxis: eliquis Discussed with: patient, nursing Anticipated discharge date: 1- [address]: home A total of 45 minutes was spent on the care of this complex patient more than 50% of the time was spent in counseling and care coordination. Objective - Vital Signs Vital signs: Vital Signs Temp 98.3 F 06/04/22 05:55 Pulse 92 06/04/22 07:33 Resp 18 06/04/22 05:55 BP 155/87 06/04/22 05:55 Pulse Ox 98 06/04/22 05:55 FiO2 Intake & Output 06/03/22 06/04/22 06/04/22 18:59 06:59 18:59 Output Total 200 800 Balance -200 -800 Weight 65.771 kg Output: Urine 200 800 Other: Voiding Method Toilet Toilet Toilet Urinal Urinal Urinal - Labs CBC & Chem 7: 06/03/22 04:24 06/03/22 04:24
--- NOTE | 2022-06-04 12:31 | P.PN ---
Subjective Progress Note Date: 06/04/22 Principal diagnosis: Shortness of breath. Pulmonary consult dated 06/03/2022. 71-year-old male with a history of multiple medical problems including digestive heart failure, severe COPD, severe pulmonary hypertension, coronary artery disease, with a previous stent to the LAD, atrial fibrillation, previous aortic valve replacement, hyperlipidemia, and previous heavy tobacco use. The patient is seen today in the emergency room, room 2. He's currently on 6 units of oxygen. Saturations are 94%. He's not receiving any IV fluids. I was asked to see the patient in consultation. The patient typically sees my partner or his COPD. At some point in the emergency department, the patient did develop atrial fibrillation with rapid ventricular response. His admission diagnosis was congestive heart failure, COPD exacerbation, and hypoxia. White count 7.6, hemoglobin 11.3, hematocrit 36.3, with a platelet count of 113,000. Sodium 135, potassium 4.2, chlorides 92, CO2 34, BUN 14, and creatinine 0.97. N-terminal proBNP was 2670. Testing for coronavirus was negative. Chest x-ray shows mild pulmonary fibrosis and improvement in pulmonary congestion compared to the prior x-ray. Progress note dated 06/04/2022. This is a 71-year-old gentleman with history of multiple medical problems. He was seen yesterday in the emergency room, room 2. Currently, the patient is seen today in room 533. He is currently on 6 L of oxygen. He typically uses 4 L at home. He is not receiving any IV fluids. When I entered the room, he was speaking to people from palliative care/hospice. No decision has been made according to them. Clinically, he looks much better. He is much more awake and alert. He is sitting up at the bedside. No new laboratory data today. Objective - Vital Signs Vital signs: Vital Signs Temp 98.3 F 06/04/22 05:55 Pulse 88 06/04/22 11:18 Resp 18 06/04/22 05:55 BP 155/87 06/04/22 05:55 Pulse Ox 98 06/04/22 05:55 FiO2 Intake & Output 06/03/22 06/04/22 06/04/22 18:59 06:59 18:59 Output Total 200 800 Balance -200 -800 Weight 65.771 kg Output: Urine 200 800 Other: Voiding Method Toilet Toilet Toilet Urinal Urinal Urinal - Exam Mild conversational dyspnea, oriented 3, much more awake and alert today. Currently on 6 L of oxygen. HEENT examination is grossly unremarkable. Neck supple. Full range of motion. No adenopathy thyromegaly or neck vein dis tention. Cardiovascular examination reveals regular rhythm rate. S1-S2 normal. No S3 or S4. No discernible murmur noted. Heart sounds are distant. Heart rate 88 bpm. Lungs reveal scattered expiratory wheezes, coarse rhonchi, and bibasilar crackles. Breath sounds equal bilaterally. Breath sounds are diminished throughout. Saturations are 98% on 6 L, which can be titrated. Abdomen soft bowel sounds are heard. No masses or tenderness. Extremities are intact. No cyanosis or clubbing. Mild edema is noted. Skin is without rash or lesion. Neurologic examination is brief but nonfocal. The patient is much more awake and alert today. - Labs CBC & Chem 7: 06/03/22 04:24 06/03/22 04:24 Assessment and Plan Assessment: Acute hypoxemic respiratory failure, secondary to COPD exacerbation. The patient has severe oxygen-dependent COPD. FEV1 is 40% of predicted. Chronic hypoxemic respiratory failure, on home O2 at 4 L. CAD with previous coronary intervention and stenting. History of aortic valve replacement, with a bioprosthetic aortic valve. Valvular heart disease. Chronic atrial fibrillation. History of hypertension. Hyperlipidemia. Moderate to severe pulmonary hypertension. Prostate cancer, status post prostatectomy. Alcoholic liver disease/cirrhosis. Prior history of GI bleed. Prior history of aortic dissection. Macular degeneration. Previous history of right lower extremity DVT. Plan: Plan dated 06/03/2022. The patient should receive albuterol sulfate and ipratropium bromide, 4 times a day and when necessary. The patient should also get Solu-Medrol, 60 mg, every 6 hours. Symbicort should be discontinued in favor of budesonide 1 mg, mixed with formoterol, 20 g, twice a day. A pro-calcitonin level should be done. Currently, the patient's on azithromycin. Additional recommendations and suggestions are forthcoming. Overall prognosis remains very poor. Labs, x- rays, medications are reviewed. The patient is seen in the emergency room, room 2. Plan dated 06/04/2022. The patient is much more awake and alert today. He is having a conversation with palliative care/hospice. The patient uses oxygen at home at 4 L. Currently he is on 6 L. Saturations are 98%. The oxygen can be titrated down. We will continue to follow make recommendations along the way. Labs, x-rays, medications are reviewed. We will continue to follow. Prognosis is guarded. Time with Patient: Less than 30
--- NOTE | 2022-06-04 16:15 | P.GSCN ---
History of Present Illness Consult date: 06/03/22 Reason for Consult: [facility]- end stage COPD Requesting physician: Linsey Hartley History of present illness: Patient is a 71-year-old male with a past medical history COPD, HTN, HLD, chronic diastolic heart failure with previously known EF of 50-55%, permanent atrial fibrillation, CAD, pulmonary hypertension, TIA who presents with dyspnea and cough. The patient reports an increased cough for the last several days which produces chest pain when he coughs. His cough is congested and primarily nonproductive. He is on 4 L oxygen via nasal cannula at home and continues to smoke one pack of cigarettes per day despite his COPD. His chest pain only occurs when he coughs and does not radiate anywhere else. He was recently hospitalized for acute exacerbation of CHF requiring diuresis. Review of Systems - Constitutional Reports as per HPI Past Medical History Past Medical History: Atrial Fibrillation, Atrial Flutter, Coronary Artery Disease (CAD), Cancer, Chest Pain / Angina, Heart Failure, COPD, CVA/TIA, Deep Vein Thrombosis (DVT), Eye Disorder, GERD/Reflux, GI Bleed, Hearing Disorder / Deafness, Hyperlipidemia, Hypertension, Liver Disease, Memory Impairment, Pneumonia, Vascular Disorder Additional Past Medical History / Comment(s): Stable dissection of the descending aorta, chronic atrial fibrillation and is anticoagulated with warfarin, aortic valve replacement with a bioprosthetic valve, pulmonary hypertension, chronic hypoxic respiratory failure with home O2 at , previous pneumonia 2008 and 2014, prostate cancer with prostatectomy, DVT R lower leg x2, macular degeneration L eye, left arm fracture, chronic tinnitus in both ears, gastritis, lower GIm bleed, UTI, liver cirrhosis related to history of alcoholism, hepatitis C at age 14yrs., feeding tube, alcoholism Last Myocardial Infarction Date:: unsure History of Any Multi-Drug Resistant Organisms: None Reported Year Discovered:: None MDRO Source:: None Past Surgical History: Cardiac Valve Replacement, Cholecystectomy, Coronary Bypass/CABG, Heart Catheterization, Heart Catheterization With Stent, Hernia Repair, Orthopedic Surgery, Prostate Surgery Additional Past Surgical History / Comment(s): Aortic valve replacement, prostatectomy, right inguinal hernia repair 2, bilateral knee arthroscopy, colonoscopy/polypectomy, EGD, right leg varicose vein stripping, removal of a blood clot from the right lower extremity, cervical surgery d/t injury in [place] and removal of shrapnel's from the right shoulder, feeding tube Past Anesthesia/Blood Transfusion Reactions: No Reported Reaction Date of Last Stent Placement:: 2016 Past Psychological History: No Psychological Hx Reported Smoking Status: Current some day smoker Past Alcohol Use History: Rare Past Drug Use History: None Reported - Past Family History Mother Family Medical History: Diabetes Mellitus Additional Family Medical History / Comment(s): Mother at age 74 from diabetic complications. Father Family Medical History: Congestive Heart Failure (CHF) Additional Family Medical History / Comment(s): Father at age 91 yrs. Medications and Allergies Home Medications Medication Instructions Recorded Confirmed Type Apixaban [Eliquis] 5 mg PO BID 08/04/20 06/03/22 History Levothyroxine Sodium [Euthyrox] 50 mcg PO DAILY 08/04/20 06/03/22 History Aspirin EC [Ecotrin Low Dose] 81 mg PO DAILY 12/24/20 06/03/22 History Mirtazapine [Remeron] 15 mg PO HS 12/24/20 06/03/22 History Pantoprazole Sodium 40 mg PO AC-BRKFST 12/24/20 06/03/22 History Thiamine [Vitamin B-1] 100 mg PO DAILY 12/24/20 06/03/22 History Atorvastatin [Lipitor] 20 mg PO HS 10/15/21 06/03/22 History Escitalopram Oxalate [Lexapro] 20 mg PO DAILY 10/15/21 06/03/22 History Fluticasone Propion/Salmeterol 1 puff INHALATION RT-BID 10/15/21 06/03/22 History [Wixela 250-50 Inhub] Lidocaine 4% Cream [Lmx 4] 1 applic TOPICAL DAILY PRN 10/15/21 06/03/22 History Metoprolol Tartrate [Lopressor] 12.5 mg PO BID 11/03/21 06/03/22 History Albuterol Nebulized [Ventolin 2.5 mg INHALATION RT-Q4H 05/17/22 06/03/22 History Nebulized] Lidocaine 5% Patch [Lidoderm 5% 1 patch TOPICAL DAILY PRN 05/17/22 06/03/22 History Patch] Furosemide [Lasix] 40 mg PO DAILY 30 Days #30 tab 05/21/22 06/03/22 Rx Sildenafil [Revatio] 20 mg PO TID 30 Days #90 tab 05/21/22 06/03/22 Rx Allergies Allergy/AdvReac Type Severity Reaction Status Date / Time primidone Allergy Rash/Hives Verified 06/03/22 08:40 gabapentin AdvReac DIZZINESS Verified 06/03/22 08:40 Surgical - Exam Vital Signs Temp Pulse Resp BP Pulse Ox 98.7 F 104 H 15 138/71 94 L 06/03/22 03:41 06/03/22 03:41 06/03/22 03:41 06/03/22 03:41 06/03/22 03:41 General: Well developed, well nourished. No acute distress. Chronically ill appearing HEENT: Head is atraumatic, normocephalic. Sclerae are clear. Mucus membranes moist. CV: Heart irregular in rhythm positive S1 and S2. Peripheral pulses equal. 2/4 Lungs: Diminished throughout. Respirations even and slightly labored.. on 6L NC. Abdomen/GI: Soft. Bowel sounds present in all 4 quadrants.No guarding, rigidity, or abdominal tenderness. Musculoskeletal/ Extremities: GALEANA, no joint deformity or swelling. No gross atrophy. + generalized weakness Vascular: Radial pulses equal. 2/4. + trace peripheral edema Skin: Warm and dry, No rash or lesions. Neurologic: Awake, alert and oriented times 2. CN II-XII grossly intact. No focal deficits. Psychiatric: Appropriate mood and affect. Results - Labs 06/03/22 04:24 06/03/22 04:24 Abnormal Lab Results - Last 24 Hours (Table) 06/03/22 06/03/22 06/03/22 Range/Units 04:24 04:24 04:24 RBC 4.06 L (4.30-5.90) m/uL Hgb 11.3 L (13.0-17.5) gm/dL Hct 36.3 L (39.0-53.0) % RDW 15.6 H (11.5-15.5) % Plt Count 113 L (150-450) k/uL Lymphocytes # 0.5 L (1.0-4.8) k/uL APTT 32.7 H (22.0-30.0) sec Sodium 135 L (137-145) mmol/L Chloride 92 L (98-107) mmol/L Carbon Dioxide 34 H (22-30) mmol/L Glucose 144 H (74-99) mg/dL Calcium 8.1 L (8.4-10.2) mg/dL Alkaline Phosphatase 160 H (38-126) U/L Diabetes panel 06/03/22 Range/Units 04:24 Sodium 135 L (137-145) mmol/L Potassium 4.2 (3.5-5.1) mmol/L Chloride 92 L (98-107) mmol/L Carbon Dioxide 34 H (22-30) mmol/L BUN 14 (9-20) mg/dL Creatinine 0.97 (0.66-1.25) mg/dL Glucose 144 H (74-99) mg/dL Calcium 8.1 L (8.4-10.2) mg/dL AST 33 (17-59) U/L ALT 18 (4-49) U/L Alkaline Phosphatase 160 H (38-126) U/L Total Protein 7.5 (6.3-8.2) g/dL Albumin 4.2 (3.5-5.0) g/dL Calcium panel 06/03/22 Range/Units 04:24 Calcium 8.1 L (8.4-10.2) mg/dL Albumin 4.2 (3.5-5.0) g/dL Pituitary panel 06/03/22 Range/Units 04:24 Sodium 135 L (137-145) mmol/L Potassium 4.2 (3.5-5.1) mmol/L Chloride 92 L (98-107) mmol/L Carbon Dioxide 34 H (22-30) mmol/L BUN 14 (9-20) mg/dL Creatinine 0.97 (0.66-1.25) mg/dL Glucose 144 H (74-99) mg/dL Calcium 8.1 L (8.4-10.2) mg/dL Adrenal panel 06/03/22 Range/Units 04:24 Sodium 135 L (137-145) mmol/L Potassium 4.2 (3.5-5.1) mmol/L Chloride 92 L (98-107) mmol/L Carbon Dioxide 34 H (22-30) mmol/L BUN 14 (9-20) mg/dL Creatinine 0.97 (0.66-1.25) mg/dL Glucose 144 H (74-99) mg/dL Calcium 8.1 L (8.4-10.2) mg/dL Total Bilirubin 0.9 (0.2-1.3) mg/dL AST 33 (17-59) U/L ALT 18 (4-49) U/L Alkaline Phosphatase 160 H (38-126) U/L Total Protein 7.5 (6.3-8.2) g/dL Albumin 4.2 (3.5-5.0) g/dL - Imaging Chest x-ray: report reviewed EKG: report reviewed Assessment and Plan Assessment: Social * Occupation - retired, [place] * Marital status - * Children/grandchildren - 2 adult children * Residence - house * Who do you reside with - with son and grandson * Tobacco - current 1ppd smoker Spiritual/Cultural * A spiritual person - Yes * Islam - Scientology * Gnosticism or cultural practices restrictions - None * EOL considerations/rituals - None Functional Assessment * Able to walk independently - Yes * Assistive devices - shower chair, home O2 * Able to use the bathroom independently - yes * Continent - yes * Require assistance bathing- No * Able to feed self - Yes Psychological/Emotional * Dementia present - Yes * Insight and judgment - Intact * Depression - Yes * Suicidal thoughts - No * Good support system - Yes, family * Patients goals - prolonged survival * Frequent hospitalizations - Yes * Desire to keep coming back to the hospital for treatment - Undecided Symptoms * Pain - 0/10 * Fatigue - + tires easily * SOB - Yes, feeling better today, continue Symbicort, Zithromax, Solumedrol, Revatio, Duoneb, and Lasix * Insomnia - yes, continue Remeron * N/V - No * Anxiety - Yes, continue Lexapro * Depression - Yes, continue Lexapro * Confusion - Yes, memory impairment * Agitation - No * Hallucinations - No * Appetite/weight loss - No recent weight loss, good appetite * Dysphagia -No * Constipation - No * Incontinence - No * Itch - No Plan: Summary/Goals - Called and spoke to patient's son via telephone. His son, Matthias, states he is also hospitalized for fluid around his lungs. Apologized for bothering him. He stated his sister, Haleigh, would be up to the hospital today. I told him I would touch base with her when she gets here and discuss goals of care for their father. He stated they both were POA. Spoke with patient he states he has trouble with his memory. He knows his name, date, and where he is. He states he understands he has end stage COPD and CHF causing his multiple readmissions. He is tired of coming back and forth to the hospital. He sometimes thinks he is ready to say "F it" and . Met with patient's daughter, Haleigh, devi, and his son, Matthias via telephone. Education provided regarding the patient's end stage COPD and CHF requireing multiple admissions to the hospital. It was explained that we do not have a cure for these conditions. We can only treat them by managing their symptoms. The patient is in end stage COPD, meaning that we are limited in out treatment options, and they are not as effective as they were. This is the patient's fifth admission this year. He never quite gets back to his previous baseline after each exacerbation. He is going to continue to have frequent exacerbations an hospitalizations. The patient expressed that he is tired of coming back and forth to the hospital. Palliative care and hospice philosophies and services explained in detail. The patient's daughter was quiet during the discussion. The patient's son stated that the are not going to make a decision today. He would like to be discharged from the hospital first and talk to his sister and father. I told him that is reasonable. There is no pressure to make a decision today. The patient then states he did not think he and his son are quite ready for hospice. His daughter stated he is very independent with his ADL's. They were informed that they could use palliative care now as a support to help manage symptoms at home, and then as a bridge to hospice as he declines. I left them with information about palliative care and contact information if they have any questions. Code status addressed with the patient, his daughter, and is son via telephone. The patient's children stated that he has wanted to be a DNR for a long time now. The voiced frustration with having to tell the hospital each time they come in. They were told it is important to honor patient's wishes in the event that they change their mind. Code status changed to DNR in system per family/patient request. Recommendations - Discharge home with outpatient palliative care and HHC vs. hospice pending family decision. Advanced Directives - None on file Code Status - DNR Thank you for this consult Sherley Buchanan [facility] [id number] Email: [email or web address] Time with Patient: Greater than 30
[2022-06-04] MEDS: AZITHROMYCIN 500 MG TAB PO SCH (16:17)
[2022-06-04] MEDS: ATORVASTATIN 20 MG TAB PO SCH (21:29)
[2022-06-05] MEDS: methylPREDNISolone SOD SUCCI 125 MG/2 ML VIAL IV SCH ×5 (01:36→23:47)
[2022-06-05] MEDS: SYMBICORT 80-4.5 MCG INHALER INHALATION SCH ×2 (09:15→20:20)
[2022-06-05] MEDS: IPRATROPIUM-ALBUTEROL 3 ML NEB INHALATION SCH ×4 (09:15→20:19)
[2022-06-05] MEDS: ESCITALOPRAM 20 MG TAB PO SCH (10:11)
[2022-06-05] MEDS: APIXABAN 5 MG TAB PO SCH ×2 (10:11→21:28)
[2022-06-05] MEDS: FUROSEMIDE 40 MG TAB PO SCH (10:11)
[2022-06-05] MEDS: LEVOTHYROXINE 50 MCG TAB PO SCH (10:11)
[2022-06-05] MEDS: ASPIRIN 81 MG PO SCH (10:11)
[2022-06-05] MEDS: PANTOPRAZOLE 40 MG TABLET PO SCH (10:11)
[2022-06-05] MEDS: SILDENAFIL 20 MG TAB PO SCH ×3 (10:12→21:29)
[2022-06-05] MEDS ORDERED: FUROSEMIDE 10 MG/ML 4 ML VIAL IV STA (10:12)
[2022-06-05] MEDS: METOPROLOL TARTRATE 12.5 MG TAB PO SCH ×2 (10:12→21:29)
[2022-06-05] MEDS: THIAMINE 100 MG TAB PO SCH (10:12)
[2022-06-05] MEDS: AZITHROMYCIN 500 MG TAB PO SCH (15:25)
[2022-06-05] MEDS: MIRTAZAPINE 15 MG TAB PO SCH (21:29)
[2022-06-05] MEDS: ATORVASTATIN 20 MG TAB PO SCH (21:29)
--- NOTE | 2022-06-06 02:25 | PN ---
PROGRESS NOTE DATE OF SERVICE: 06/05/2022 This is a pulmonary/critical care progress note. HISTORY OF PRESENT ILLNESS: This is a 71-year-old gentleman with history of severe COPD and interstitial lung disease. The patient was seen in the emergency room initially. He is currently on 6 L of oxygen. He is not receiving any IV fluids. The patient is doing a bit better today. He is much more awake and alert than he was when I first saw him in the emergency department. The patient still complains of shortness of breath with any activity. He is coughing and wheezing, not producing any phlegm. There are no fever or chills. He denies any chest pain. PHYSICAL EXAMINATION: VITAL SIGNS: Blood pressure of 152/84, his heart rate is 90, respiratory rate 20, temperature is 38.7 degrees, with saturation on 6 L of 94%. He appears in no acute distress. Mild tachypnea. No conversational dyspnea or use of accessory muscles. HEENT: Examination is grossly unremarkable. NECK: Supple. No neck vein distention, thyromegaly, or adenopathy. CARDIOVASCULAR: Examination reveals regular rhythm rate. Heart rate in the low 90s. S1, S2 normal. Heart sounds are distant. LUNGS: Reveal diminished breath sounds throughout. Scattered rhonchi are noted. No wheezes or crackles. Breath sounds equal. ABDOMEN: Soft, bowel sounds are heard. EXTREMITIES: Intact. Trace edema. SKIN: Without rash. NEUROLOGIC: Examination is brief but nonfocal. Labs, x-rays, and medications cannot be reviewed. ASSESSMENT: 1. Severe chronic obstructive pulmonary disease with chronic obstructive pulmonary disease exacerbation. 2. Interstitial lung disease. 3. Chronic hypoxemic respiratory failure. PLAN: The patient is on appropriate medications. We will continue to follow and make recommendations along the way. Labs, x-rays, and medications could not be reviewed as the computer system is down. We will continue to follow. MMODL / IJN: [id number] /
[2022-06-06] MEDS: methylPREDNISolone SOD SUCCI 125 MG/2 ML VIAL IV SCH ×3 (06:15→17:19)
[2022-06-06] MEDS: PANTOPRAZOLE 40 MG TABLET PO SCH (06:15)
[2022-06-06] MEDS: LEVOTHYROXINE 50 MCG TAB PO SCH (06:15)
[2022-06-06] MEDS: IPRATROPIUM-ALBUTEROL 3 ML NEB INHALATION SCH ×4 (08:24→20:24)
[2022-06-06] MEDS: SYMBICORT 80-4.5 MCG INHALER INHALATION SCH (08:24)
[2022-06-06] MEDS: FUROSEMIDE 40 MG TAB PO SCH (08:58)
[2022-06-06] MEDS: APIXABAN 5 MG TAB PO SCH ×2 (08:58→21:02)
[2022-06-06] MEDS: THIAMINE 100 MG TAB PO SCH (08:58)
[2022-06-06] MEDS: ASPIRIN 81 MG PO SCH (08:58)
[2022-06-06] MEDS: METOPROLOL TARTRATE 12.5 MG TAB PO SCH ×2 (08:58→21:02)
[2022-06-06] MEDS: SILDENAFIL 20 MG TAB PO SCH ×3 (08:59→21:03)
[2022-06-06] MEDS: ESCITALOPRAM 20 MG TAB PO SCH (08:59)
--- NOTE | 2022-06-06 11:22 | P.PN ---
Subjective Progress Note Date: 06/06/22 Progress note: Rec'd additional lasix yesterday, now only requiring 3L NC. Review of systems: Pertinent positives and negatives as discussed in HPI, a complete review of systems was performed and all other systems are negative. Physical exam: Gen: awake, alert HEENT: normocephalic, atraumatic, good hearing acuity, moist mucous membranes Resp: good air exchange, breathing comfortably with no accessory muscle use, diffuse wheezing with increased crackles in the bases CVS: good distal perfusion x 4, tachycardic, no murmurs GI: soft, NTTP, ND : no SPT, no CVAT, pro catheter not present MSK: no pitting edema, no clubbing Neuro: non-focal, moving all extremities Psych: cooperative, euthymic mood Assessment and Plan of Care: Acute Exacerbation COPD Acute on Chronic Diastolic HF Acute on chronic respiratory failure Pulmonary Fibrosis -Oxygen supplementation to maintain SpO2 of 90%. -Solu medrol -Azithromycin daily x5 days -Duoneb NMT QID and q4hr prn for SOB/wheezing -Continue Symbicort -Consult pulmonology -Consult Palliative care due to end stage COPD -s/p 40mg IV lasix once on 06/05 Permanent Afib with RVR -Rate control, continue home metoprolol -Continue Eliquis, chronically anticoagulated -Troponin normal Hypocalcemia -recheck in a.m -replete as necessary CAD Pulmonary HTN Hyperlipidemia HTN -Continue furosemide 40mg po daily -Continue statin, ASA -Continue sildenafil for pulmonary htn GI prophylaxis via protonix The patient is admitted with an anticipated greater than 2 midnight stay for evaluation of acute exacerbation of COPD CODE STATUS:Full DVT prophylaxis: eliquis Discussed with: patient, nursing Anticipated discharge date: 1- [address]: home A total of 45 minutes was spent on the care of this complex patient more than 50% of the time was spent in counseling and care coordination. Objective - Vital Signs Vital signs: Vital Signs Temp 97.9 F 06/06/22 05:00 Pulse 82 06/06/22 08:33 Resp 18 06/06/22 05:00 BP 130/65 06/06/22 05:00 Pulse Ox 100 06/06/22 08:24 FiO2 Intake & Output 06/05/22 06/06/22 06/06/22 19:59 06:59 18:59 Intake Total Balance Intake: Oral Other: Voiding Method # Voids - Labs CBC & Chem 7: 06/03/22 04:24 06/03/22 04:24
--- NOTE | 2022-06-06 11:29 | P.PN ---
Subjective Progress Note Date: 06/06/22 Principal diagnosis: Shortness of breath. Pulmonary consult dated 06/03/2022. 71-year-old male with a history of multiple medical problems including digestive heart failure, severe COPD, severe pulmonary hypertension, coronary artery disease, with a previous stent to the LAD, atrial fibrillation, previous aortic valve replacement, hyperlipidemia, and previous heavy tobacco use. The patient is seen today in the emergency room, room 2. He's currently on 6 units of oxygen. Saturations are 94%. He's not receiving any IV fluids. I was asked to see the patient in consultation. The patient typically sees my partner or his COPD. At some point in the emergency department, the patient did develop atrial fibrillation with rapid ventricular response. His admission diagnosis was congestive heart failure, COPD exacerbation, and hypoxia. White count 7.6, hemoglobin 11.3, hematocrit 36.3, with a platelet count of 113,000. Sodium 135, potassium 4.2, chlorides 92, CO2 34, BUN 14, and creatinine 0.97. N-terminal proBNP was 2670. Testing for coronavirus was negative. Chest x-ray shows mild pulmonary fibrosis and improvement in pulmonary congestion compared to the prior x-ray. Progress note dated 06/04/2022. This is a 71-year-old gentleman with history of multiple medical problems. He was seen yesterday in the emergency room, room 2. Currently, the patient is seen today in room 533. He is currently on 6 L of oxygen. He typically uses 4 L at home. He is not receiving any IV fluids. When I entered the room, he was speaking to people from palliative care/hospice. No decision has been made according to them. Clinically, he looks much better. He is much more awake and alert. He is sitting up at the bedside. No new laboratory data today. Progress note dated 06/06/2022. 71-year-old male with history of severe COPD. Currently, he's on 6 L of oxygen. She's not receiving any IV fluids. The patient is a DO NOT RESUSCITATE patient. No new laboratory data today. No recent chest x-ray to speak up. Clinically, the patient's about the same to slightly better. He still very short of breath with any activity, even going to the bathroom. Objective - Vital Signs Vital signs: Vital Signs Temp 97.9 F 06/06/22 05:00 Pulse 82 06/06/22 08:33 Resp 18 06/06/22 05:00 BP 130/65 06/06/22 05:00 Pulse Ox 100 06/06/22 08:24 FiO2 Intake & Output 06/05/22 06/06/22 06/06/22 19:59 06:59 18:59 Intake Total Balance Intake: Oral Other: Voiding Method # Voids - Exam Mild conversational dyspnea, oriented 3, much more awake and alert today. Currently on 6 L of oxygen. HEENT examination is grossly unremarkable. Neck supple. Full range of motion. No adenopathy thyromegaly or neck vein distention. Cardiovascular examination reveals regular rhythm rate. S1-S2 normal. No S3 or S4. No discernible murmur noted. Heart sounds are distant. Heart rate 82 bpm. Lungs reveal scattered expiratory wheezes, coarse rhonchi, and bibasilar crackles. Breath sounds equal bilaterally. Breath sounds are diminished throughout. Saturations are 100 % on 6 L, which can be titrated. Abdomen soft bowel sounds are heard. No masses or tenderness. Extremities are intact. No cyanosis or clubbing. Mild edema is noted. Skin is without rash or lesion. Neurologic examination is brief but nonfocal. The patient is much more awake and alert today. - Labs CBC & Chem 7: 06/03/22 04:24 06/03/22 04:24 Assessment and Plan Assessment: Acute hypoxemic respiratory failure, secondary to COPD exacerbation. The patient has severe oxygen-dependent COPD. FEV1 is 40% of predicted. Chronic hypoxemic respiratory failure, on home O2 at 4 L. CAD with previous coronary intervention and stenting. History of aortic valve replacement, with a bioprosthetic aortic valve. Valvular heart disease. Chronic atrial fibrillation. History of hypertension. Hyperlipidemia. Moderate to severe pulmonary hypertension. Prostate cancer, status post prostatectomy. Alcoholic liver disease/cirrhosis. Prior history of GI bleed. Prior history of aortic dissection. Macular degeneration. Previous history of right lower extremity DVT. Plan: Plan dated 06/03/2022. The patient should receive albuterol sulfate and ipratropium bromide, 4 times a day and when necessary. The patient should also get Solu-Medrol, 60 mg, every 6 hours. Symbicort should be discontinued in favor of budesonide 1 mg, mixed with formoterol, 20 g, twice a day. A pro-calcitonin level should be done. Currently, the patient's on azithromycin. Additional recommendations and suggestions are forthcoming. Overall prognosis remains very poor. Labs, x- rays, medications are reviewed. The patient is seen in the emergency room, room 2. Plan dated 06/04/2022. The patient is much more awake and alert today. He is having a conversation with palliative care/hospice. The patient uses oxygen at home at 4 L. Currently he is on 6 L. Saturations are 98%. The oxygen can be titrated down. We will continue to follow make recommendations along the way. Labs, x-rays, medications are reviewed. We will continue to follow. Prognosis is guarded. Plan dated 06/06/2022. The patient is resting comfortably on 6 L. With any activity, he is quite short of breath. The patient is a DO NOT RESUSCITATE patient. Labs, x-rays, and medications are reviewed. He remains on Symbicort, updrafts with albuterol and ipratropium bromide, and Solu-Medrol. We will continue to follow make recommendations along the way. I'm going to increase his Symbicort to the 160/4.5, strength. Time with Patient: Less than 30
[2022-06-06] MEDS: BENZONATATE 100 MG CAP PO PRN (13:49)
[2022-06-06] MEDS: AZITHROMYCIN 500 MG TAB PO SCH (17:19)
[2022-06-06] MEDS: SYMBICORT 160-4.5 MCG INHALER INHALATION SCH (20:24)
[2022-06-06] MEDS: MIRTAZAPINE 15 MG TAB PO SCH (21:02)
[2022-06-06] MEDS: ATORVASTATIN 20 MG TAB PO SCH (21:02)
[2022-06-07] MEDS: methylPREDNISolone SOD SUCCI 125 MG/2 ML VIAL IV SCH ×4 (02:06→17:18)
[2022-06-07 05:22] VITALS: RESP 16
[2022-06-07] MEDS: LEVOTHYROXINE 50 MCG TAB PO SCH (06:25)
[2022-06-07] MEDS: IPRATROPIUM-ALBUTEROL 3 ML NEB INHALATION SCH ×4 (07:48→19:45)
[2022-06-07] MEDS: SYMBICORT 160-4.5 MCG INHALER INHALATION SCH ×2 (07:48→19:46)
[2022-06-07] MEDS: ASPIRIN 81 MG PO SCH (09:05)
[2022-06-07] MEDS: FUROSEMIDE 40 MG TAB PO SCH (09:05)
[2022-06-07] MEDS: METOPROLOL TARTRATE 12.5 MG TAB PO SCH ×2 (09:05→20:48)
[2022-06-07] MEDS: PANTOPRAZOLE 40 MG TABLET PO SCH (09:05)
[2022-06-07] MEDS: THIAMINE 100 MG TAB PO SCH (09:05)
[2022-06-07] MEDS: ESCITALOPRAM 20 MG TAB PO SCH (09:06)
[2022-06-07] MEDS: SILDENAFIL 20 MG TAB PO SCH ×3 (09:06→20:48)
[2022-06-07] MEDS: APIXABAN 5 MG TAB PO SCH ×2 (09:06→20:48)
--- NOTE | 2022-06-07 11:27 | P.PN ---
Subjective Progress Note Date: 06/07/22 Patient is a 71-year-old male with a past medical history COPD, HTN, HLD, chronic diastolic heart failure with previously known EF of 50-55%, permanent atrial fibrillation, CAD, pulmonary hypertension, TIA who presents with dyspnea and cough. In the emergency room patient was afebrile with a temperature of 98.8, heart rate of 106, respirations 18, and blood pressure 138/71. He was 93% SpO2 with 7 L oxygen via nasal cannula. CBC showed mild anemia with hemoglobin of 11.3 and hematocrit of 36.3. PTT was elevated at 32.7. Chemistry showed mildly low sodium of 135, chloride 92 and carbon dioxide 34. In addition his glucose level was elevated at 144 and his calcium was low at 8.1, alkaline phosphatase was 160. Chest x-ray was significant for mild pulmonary fibrosis. EKG showed atrial fibrillation with rapid ventricular response with a heart rate of 103, possible right ventricular hypertrophy and moderate ST depression. Pulmonary was consulted by emergency room physician. Patient was started on DuoNeb scheduled and as needed for shortness of breath and wheezing. He was started on Solu-Medrol. He received azithromycin. He was started on Symbicort inhaler. He recieved intermittent dose of Lasix. Pulmonology was consulted and followed the patient during his hospitalization. Palliative care was consulted and patient was amendable to DNR/DNI. Patient was seen and examined. No acute events overnight. Currently on 3L NC which is baseline. Patient continues to report shortness of breath, worsened with exertion. General: non toxic, no distress, appears at stated age Derm: warm, dry Head: atraumatic, normocephalic, symmetric Eyes: EOMI, no lid lag, anicteric sclera Mouth: no lip lesion, mucus membranes moist Cardiovascular: S1S2 reg, no murmur Lungs: Decreased BS bilateral, rales at the bases with scattered wheezing , no accessory muscle use Ext: no gross muscle atrophy, no edema, no contracture Neuro: no focal neuro deficits Psych: Alert, oriented, appropriate affect #Acute Exacerbation COPD #Acute on Chronic Diastolic HF #Acute on chronic respiratory failure #Hypomagnesemia #Pulmonary Fibrosis #Permanent Afib with RVR Chronic conditions: CAD, Pulmonary hypertension, hypertension, hypothyroidism, depression DuoNeb scheduled and as needed for shortness of breath and wheezing. Continue Solu-Medrol. Continue azithromycin. Continue Symbicort inhaler. Maintain K > 4 and Mg > 2. Supplemental O2 to maintain O2 saturation greater than 92%. Pulmonology on board. Palliative care consulted. Mag of 1.7. Replace magnesium. Repeat tomorrow. Continue metoprolol for rate control of atrial fibrillation. Continue Eliquis for anticoagulation. Continue metoprolol, aspirin and Lipitor for history of CAD. Continue sildenafil for history of pulmonary hypertension. Monitor vitals, adjust medication if necessary. Continue Synthroid for history of hypothyroidism. Continue Lexapro for history of depression. Patient is pending clinical improvement. He is still quite short of breath. Anticipated discharge in 1-2 days depending on clinical course. Objective - Vital Signs Vital signs: Vital Signs Temp 97.9 F 06/07/22 04:15 Pulse 72 06/07/22 08:03 Resp 16 06/07/22 04:15 BP 129/61 06/07/22 04:15 Pulse Ox 96 06/07/22 04:15 FiO2 Intake & Output 06/06/22 06/07/22 06/07/22 18:59 06:59 18:59 Other: Voiding Method Toilet Urinal # Voids 3 - Labs CBC & Chem 7: 06/03/22 04:24 06/03/22 04:24
[2022-06-07] MEDS ORDERED: MAGNESIUM SULFATE-D5W PMX 1 GM in DEXTROSE/WATER 1 100ML.BAG IVPB SCH (11:30)
--- NOTE | 2022-06-07 11:51 | P.PN ---
Subjective Progress Note Date: 06/07/22 Principal diagnosis: CHF, COPD exacerbation Patient is a 71-year-old male with a past medical history COPD, HTN, HLD, chronic diastolic heart failure with previously known EF of 50-55%, permanent atrial fibrillation, CAD, pulmonary hypertension, TIA who presents with dyspnea and cough. The patient reports an increased cough for the last several days which produces chest pain when he coughs. His cough is congested and primarily nonproductive. He is on 4 L oxygen via nasal cannula at home and continues to smoke one pack of cigarettes per day despite his COPD. His chest pain only occurs when he coughs and does not radiate anywhere else. He was recently hospitalized for acute exacerbation of CHF requiring diuresis. 06/04 Called and spoke to patient's son via telephone. His son, Matthias, states he is also hospitalized for fluid around his lungs. Apologized for bothering him. He stated his sister, Haleigh, would be up to the hospital today. I told him I would touch base with her when she gets here and discuss goals of care for their father. He stated they both were POA. Spoke with patient he states he has trouble with his memory. He knows his name, date, and where he is. He states he understands he has end stage COPD and CHF causing his multiple readmissions. He is tired of coming back and forth to the hospital. He sometimes thinks he is ready to say "F it" and . Met with patient's daughter, Haleigh, patient, and his son, Matthias via telephone. Education provided regarding the patient's end stage COPD and CHF requireing multiple admissions to the hospital. It was explained that we do not have a cure for these conditions. We can only treat them by managing their symptoms. The patient is in end stage COPD, meaning that we are limited in out treatment options, and they are not as effective as they were. This is the patient's fifth admission this year. He never quite gets back to his previous baseline after each exacerbation. He is going to continue to have frequent exacerbations an hospitalizations. The patient expressed that he is tired of coming back and forth to the hospital. Palliative care and hospice philosophies and services explained in detail. The patient's daughter was quiet during the discussion. The patient's son stated that the are not going to make a decision today. He would like to be discharged from the hospital first and talk to his sister and father. I told him that is reasonable. There is no pressure to make a decision today. The patient then states he did not think he and his son are quite ready for hospice. His daughter stated he is very independent with his ADL's. They were informed that they could use palliative care now as a support to help manage symptoms at home, and then as a bridge to hospice as he declines. I left them with information about palliative care and contact information if they have any questions. Code status addressed with the patient, his daughter, and is son via telephone. The patient's children stated that he has wanted to be a DNR for a long time now. The voiced frustration with having to tell the hospital each time they come in. They were told it is important to honor patient's wishes in the event that they change their mind. Code status changed to DNR in system per family/patient request. Objective - Vital Signs Vital signs: Vital Signs Temp 97.9 F 06/07/22 04:15 Pulse 68 06/07/22 11:25 Resp 16 06/07/22 04:15 BP 129/61 06/07/22 04:15 Pulse Ox 96 06/07/22 04:15 FiO2 Intake & Output 06/06/22 06/07/22 06/07/22 18:59 06:59 18:59 Other: Voiding Method Toilet Toilet Urinal # Voids 3 - Exam General: Well developed, well nourished. No acute distress. Chronically ill appearing HEENT: Head is atraumatic, normocephalic. Sclerae are clear.Mucus membranes moist. CV: Heart regular in rate and rhythm positive S1 and S2. Peripheral pulses equal. 2/4 Lungs: Scattered rhonchi, diminished bases + non productive cough. 3L NC Abdomen/GI: Soft. No guarding, rigidity, or abdominal tenderness. Musculoskeletal/ Extremities: GALEANA, no joint deformity or swelling. No gross at rophy. + generalized weakness Vascular: Radial pulses equal. 2/4. No peripheral edema Skin: Warm and dry Neurologic: Awake, alert and oriented times 2. CN II-XII grossly intact. No focal deficits. Psychiatric: Appropriate mood and affect. - Labs CBC & Chem 7: 06/03/22 04:24 06/03/22 04:24 Assessment and Plan Assessment: Symptoms * Pain - 0/10 * Fatigue - + tires easily * SOB - Yes, with minimal activity continue Symbicort, Zithromax, Solumedrol, Revatio, Duoneb, and Lasix * Insomnia - yes, continue Remeron * N/V - No * Anxiety - Yes, continue Lexapro * Depression - Yes, continue Lexapro * Confusion - Yes, memory impairment * Agitation - No * Hallucinations - No * Appetite/weight loss - No recent weight loss, good appetite. Continue regular diet * Dysphagia -No * Constipation - No BM documented since admission. Pt does not remember LBM. Senokot-S added * Incontinence - No * Itch - No * Cough - yes, non-productive. Continue Tessalon perles. May benefit from some Guaifenesin Plan: Summary/Goals - No visitor present today. The patient is worried about his son. He was recently in the hospital with fluid around his lungs. The patient is worried that his son might have cancer. He lives with his son and grandson. He states they are able to take good care of him. He plans on going back home with them when he is able to be discharged. He mentioned that he knows he does not have a lot of time left, but he is not ready to go yet. He wants to be there to support his son. Asked patient if he needs some supportive services at home to help, he declined. He stated his daughter would be helping out too. He thinks his son is coming in to visit today. Requested that the nurse call and notify me when he gets here. Recommendations - Discharge home with outpatient palliative care and [facility] vs. hospice pending family decision. Advanced Directives - None on file Code Status - DNR Thank you for this consult Sherley Buchanan [facility] Palliative Care [facility] [id number] Email: [email or web address] Time with Patient: Greater than 30
--- NOTE | 2022-06-07 12:06 | P.PN ---
Subjective Progress Note Date: 06/07/22 The patient is seen today 06/07/2021. He is a 71-year-old male with a history of multiple medical problems including digestive heart failure, severe COPD, severe pulmonary hypertension, coronary artery disease, with a previous stent to the LAD, atrial fibrillation, previous aortic valve replacement, hyperlipidemia, and previous heavy tobacco use. He was admitted again for COPD exacerbation. His FEV1 value is 40% of predicted. He is maintained on home oxygen usually at 4 L/m per nasal cannula. Presently he is sitting up at bedside. Awake and alert in no acute distress. Feeling nearly back to his baseline. Maintain O2 saturations in the 90s on 3 L/m per nasal cannula. Afebrile. Hemodynamically stable. No new labs today. If he is continued on DuoNeb inhalations, Symbicort, IV Solu-Medrol. Remains on oral diuretics. Currently on azithromycin. Objective - Vital Signs Vital signs: Vital Signs Temp 97.9 F 06/07/22 04:15 Pulse 72 06/07/22 11:35 Resp 16 06/07/22 04:15 BP 129/61 06/07/22 04:15 Pulse Ox 96 06/07/22 04:15 FiO2 Intake & Output 06/06/22 06/07/22 06/07/22 18:59 06:59 18:59 Other: Voiding Method Toilet Toilet Urinal # Voids 3 - Exam GENERAL EXAM: Alert, pleasant 71-year-old male patient, on 3 L nasal cannula, c omfortable in no apparent distress. HEAD: Normocephalic. EYES: Normal reaction of pupils, equal size. NOSE: Clear with pink turbinates. THROAT: No erythema or exudates. NECK: No masses, no JVD. CHEST: No chest wall deformity. LUNGS: Equal air entry with scattered rhonchi, end expiratory wheeze, dimi nished. CVS: S1 and S2 normal with no audible murmur, regular rhythm. ABDOMEN: No hepatosplenomegaly, normal bowel sounds, no guarding or rigidity. SPINE: No scoliosis or deformity SKIN: No rashes CENTRAL NERVOUS SYSTEM: No focal deficits, tone is normal in all 4 extremities. EXTREMITIES: There is no peripheral edema. No clubbing, no cyanosis. Peripheral pulses are intact. - Labs CBC & Chem 7: 06/03/22 04:24 06/03/22 04:24 Assessment and Plan Assessment: Acute on chronic hypoxemic respiratory failure secondary to COPD exacerbation. The patient has severe oxygen-dependent COPD. FEV1 is 40% of predicted. Chronic hypoxemic respiratory failure, on home O2 at 4 L. CAD with previous coronary intervention and stenting. History of aortic valve replacement, with a bioprosthetic aortic valve. Valvular heart disease. Chronic atrial fibrillation, anticoagulated with Eliquis. History of hypertension. Hyperlipidemia. Moderate to severe pulmonary hypertension. Prostate cancer, status post prostatectomy. Alcoholic liver disease/cirrhosis. Prior history of GI bleed. Prior history of aortic dissection. Macular degeneration. Previous history of right lower extremity DVT. Plan: The patient was seen and evaluated Medications reviewed Cleared for discharge from the pulmonary standpoint Continue his home pulmonary medications including Wixela, albuterol, nebulized treatments Continue his home oxygen Complete a prednisone taper starting at 40 mg daily for 4 days Follow-up in the office in a week I have personally seen and examined the patient, performed the documentation and the assessment and plan as written. Number of minutes spent on the visit: 10.
[2022-06-07] MEDS: SENNOSIDES-DOCUSATE SODIUM 1 EACH TAB PO SCH (12:39)
[2022-06-07] MEDS: BENZONATATE 100 MG CAP PO PRN (12:45)
--- NOTE | 2022-06-07 14:24 | P.PN ---
Progress Note - Text Progress Note Date: 06/07/22 The patient's nurse called to notify mortgage or loan underwriter that the son was here. When I got to the room the patient stated that his son left because he did not want to talk to me. Sherley Buchanan [facility] Palliative Care/Urology [facility] [id number] Email: [email or web address]
[2022-06-07] MEDS: AZITHROMYCIN 500 MG TAB PO SCH (15:34)
[2022-06-07] MEDS: MIRTAZAPINE 15 MG TAB PO SCH (20:48)
[2022-06-07] MEDS: ATORVASTATIN 20 MG TAB PO SCH (20:48)
[2022-06-08] MEDS: methylPREDNISolone SOD SUCCI 125 MG/2 ML VIAL IV SCH ×3 (00:25→11:33)
[2022-06-08] MEDS: LEVOTHYROXINE 50 MCG TAB PO SCH (05:42)
[2022-06-08] MEDS: SYMBICORT 160-4.5 MCG INHALER INHALATION SCH (07:37)
[2022-06-08] MEDS: IPRATROPIUM-ALBUTEROL 3 ML NEB INHALATION SCH ×2 (07:37→10:55)
[2022-06-08 09:35] LABS: African American GFR (CKD) 86.2 (60.0-200.0); Anion Gap 7.9 mmol/L (10.00-18.00); BUN/Creat Ratio 35.3 Ratio (12.00-20.00); Blood Urea Nitrogen 35.3 mg/dL (9.0-27.0); Calcium 8.9 mg/dL (8.7-10.3); Carbon Dioxide 39.1 mmol/L (20.0-27.5); Magnesium 2.3 mg/dL (1.5-2.4); Non-African American GFR(CKD) 74.3 (60.0-200.0)
[2022-06-08] MEDS: APIXABAN 5 MG TAB PO SCH (09:46)
[2022-06-08] MEDS: PANTOPRAZOLE 40 MG TABLET PO SCH (09:46)
[2022-06-08] MEDS: FUROSEMIDE 40 MG TAB PO SCH (09:48)
[2022-06-08] MEDS: ESCITALOPRAM 20 MG TAB PO SCH (09:48)
[2022-06-08] MEDS: ASPIRIN 81 MG PO SCH (09:48)
[2022-06-08] MEDS: SENNOSIDES-DOCUSATE SODIUM 1 EACH TAB PO SCH (09:49)
[2022-06-08] MEDS: METOPROLOL TARTRATE 12.5 MG TAB PO SCH (09:49)
[2022-06-08] MEDS: SILDENAFIL 20 MG TAB PO SCH (09:50)
[2022-06-08] MEDS: THIAMINE 100 MG TAB PO SCH (09:51)
[2022-06-08 10:32] VITALS: BP 147/69; TEMP 97.6
--- NOTE | 2022-06-08 10:44 | P.DS ---
Providers Date of admission: 06/03/22 05:59 Expected date of discharge: 06/08/22 Attending physician: Louise Danielson MD Consults: 06/03/22 05:59 Consult Physician Routine Consulting Provider: Federico Orellana Consult Reason/Comments: COPD Do you want consulting provider notified?: Yes 06/03/22 09:12 Consult to Palliative Care Routine Consulting Provider: Sherley Buchanan Consult Reason/Comments: end stage COPD Do you want consulting provider notified?: Yes Primary care physician: [facility] Course: Patient is a 71-year-old male with a past medical history COPD, HTN, HLD, chronic diastolic heart failure with previously known EF of 50-55%, permanent atrial fibrillation, CAD, pulmonary hypertension, TIA who presents with dyspnea and cough. In the emergency room patient was afebrile with a temperature of 98.8, heart rate of 106, respirations 18, and blood pressure 138/71. He was 93% SpO2 with 7 L oxygen via nasal cannula. CBC showed mild anemia with hemoglobin of 11.3 and hematocrit of 36.3. PTT was elevated at 32.7. Chemistry showed mildly low sodium of 135, chloride 92 and carbon dioxide 34. In addition his glucose level was elevated at 144 and his calcium was low at 8.1, alkaline phosphatase was 160. Chest x-ray was significant for mild pulmonary fibrosis. EKG showed atrial fibrillation with rapid ventricular response with a heart rate of 103, possible right ventricular hypertrophy and moderate ST depression. Pulmonary was consulted by emergency room physician. Patient was started on DuoNeb scheduled and as needed for shortness of breath and wheezing. He was started on Solu-Medrol. He received azithromycin. He was started on Symbicort inhaler. He recieved intermittent dose of Lasix. Pulmonology was consulted and followed the patient during his hospitalization. Palliative care was consulted and patient was amendable to DNR/DNI. He was able to be weaned down to his home 3 L O2. Pulmonology cleared the patient for discharge. Patient was seen and examined. No acute events overnight. Patient reports improvement in his shortness of breath. He denies any chest pain or palpitations. No lightheadedness. Pertinent studies include chest x-ray. General: non toxic, no distress, appears at stated age Derm: warm, dry Head: atraumatic, normocephalic, symmetric Eyes: EOMI, no lid lag, anicteric sclera Mouth: no lip lesion, mucus membranes moist Cardiovascular: S1S2 reg, no murmur Lungs: Decreased BS bilateral, rales at the bases with scattered wheezing , no accessory muscle use Ext: no gross muscle atrophy, no edema, no contracture Neuro: no focal neuro deficits Psych: Alert, oriented, appropriate affect Discharge diagnosis: #Acute Exacerbation COPD #Acute on Chronic Diastolic HF #Acute on chronic respiratory failure #Hypomagnesemia #Pulmonary Fibrosis #Permanent Afib with RVR This complex discharge about 35 minutes to complete. Patient Condition at Discharge: Stable Plan - Discharge Summary Discharge Rx Participant: Yes New Discharge Prescriptions: New Ipratropium-Albuterol Nebulize [Duoneb 0.5 mg-3 mg/3 ml Soln] 3 ml INHALATION RT-QID PRN #120 each PRN Reason: Shortness Of Breath Budesonide-Formot 160-4.5 Mcg [Symbicort 160-4.5 Mcg Inhaler] 2 puff INHALATION RT-BID #1 each predniSONE See Taper PO DAILY #80 tab Benzonatate [Tessalon Perles] 100 mg PO TID PRN #30 cap PRN Reason: Cough Continue Levothyroxine Sodium [Euthyrox] 50 mcg PO DAILY Apixaban [Eliquis] 5 mg PO BID Thiamine [Vitamin B-1] 100 mg PO DAILY Aspirin EC [Ecotrin Low Dose] 81 mg PO DAILY Lidocaine 4% Cream [Lmx 4] 1 applic TOPICAL DAILY PRN PRN Reason: left ankle pain Pantoprazole Sodium 40 mg PO AC-BRKFST Mirtazapine [Remeron] 15 mg PO HS Escitalopram Oxalate [Lexapro] 20 mg PO DAILY Atorvastatin [Lipitor] 20 mg PO HS Metoprolol Tartrate [Lopressor] 12.5 mg PO BID Lidocaine 5% Patch [Lidoderm 5% Patch] 1 patch TOPICAL DAILY PRN PRN Reason: low back pain Sildenafil [Revatio] 20 mg PO TID 30 Days #90 tab Furosemide [Lasix] 40 mg PO DAILY 30 Days #30 tab Discontinued Albuterol Nebulized [Ventolin Nebulized] 2.5 mg INHALATION RT-Q4H Fluticasone Propion/Salmeterol [Wixela 250-50 Inhub] 1 puff INHALATION RT-BID Discharge Medication List Apixaban [Eliquis] 5 mg PO BID 08/04/20 [History] Levothyroxine Sodium [Euthyrox] 50 mcg PO DAILY 08/04/20 [History] Aspirin EC [Ecotrin Low Dose] 81 mg PO DAILY 12/24/20 [History] Mirtazapine [Remeron] 15 mg PO HS 12/24/20 [History] Pantoprazole Sodium 40 mg PO AC-BRKFST 12/24/20 [History] Thiamine [Vitamin B-1] 100 mg PO DAILY 12/24/20 [History] Atorvastatin [Lipitor] 20 mg PO HS 10/15/21 [History] Escitalopram Oxalate [Lexapro] 20 mg PO DAILY 10/15/21 [History] Lidocaine 4% Cream [Lmx 4] 1 applic TOPICAL DAILY PRN 10/15/21 [History] Metoprolol Tartrate [Lopressor] 12.5 mg PO BID 11/03/21 [History] Lidocaine 5% Patch [Lidoderm 5% Patch] 1 patch TOPICAL DAILY PRN 05/17/22 [History] Furosemide [Lasix] 40 mg PO DAILY 30 Days #30 tab 05/21/22 [Rx] Sildenafil [Revatio] 20 mg PO TID 30 Days #90 tab 05/21/22 [Rx] Benzonatate [Tessalon Perles] 100 mg PO TID PRN #30 cap 06/08/22 [Rx] Budesonide-Formot 160-4.5 Mcg [Symbicort 160-4.5 Mcg Inhaler] 2 puff INHALATION RT-BID #1 each 06/08/22 [Rx] Ipratropium-Albuterol Nebulize [Duoneb 0.5 mg-3 mg/3 ml Soln] 3 ml INHALATION RT-QID PRN #120 each 06/08/22 [Rx] predniSONE See Taper PO DAILY #80 tab 06/08/22 [Rx] Follow up Appointment(s)/Referral(s): Federico Orellana MD [STAFF PHYSICIAN] - 1 Week [facility],Clinic [Primary Care Provider] - 1 Week Activity/Diet/Wound Care/Special Instructions: Diet: Cardiac FU PCP within 1-2 days of DC. FU Pulmonology within 1 week of DC. Take all medications as advised. Discharge Disposition: HOME SELF-CARE
[2022-06-08 10:58] VITALS: PULSE 72
--- NOTE | 2022-06-08 11:43 | P.PN ---
Subjective Progress Note Date: 06/08/22 The patient is seen today 06/07/2021. He is a 71-year-old male with a history of multiple medical problems including digestive heart failure, severe COPD, severe pulmonary hypertension, coronary artery disease, with a previous stent to the LAD, atrial fibrillation, previous aortic valve replacement, hyperlipidemia, and previous heavy tobacco use. He was admitted again for COPD exacerbation. His FEV1 value is 40% of predicted. He is maintained on home oxygen usually at 4 L/m per nasal cannula. Presently he is sitting up at bedside. Awake and alert in no acute distress. Feeling nearly back to his baseline. Maintain O2 saturations in the 90s on 3 L/m per nasal cannula. Afebrile. Hemodynamically stable. No new labs today. If he is continued on DuoNeb inhalations, Symbicort, IV Solu-Medrol. Remains on oral diuretics. Currently on azithromycin. Patient is seen today 06/08/2022 in follow-up on the regular medical floor. He is awake and alert in no acute distress. Sitting up at the bedside having breakfast. Denies any worsening shortness of breath, cough or congestion. Feeling back to his baseline. Sodium 142. Potassium 5.0. Bicarb 8. BUN 35. Creatinine 1.0. Maintaining good O2 saturations in the 90s on 3 L/m per nasal cannula. Afebrile. Hemodynamically stable. He is continued on DuoNeb inhalations, Symbicort, IV Solu-Medrol. Anticoagulated with Eliquis. Objective - Vital Signs Vital signs: Vital Signs Temp 97.6 F 06/08/22 10:31 Pulse 72 06/08/22 11:05 Resp 16 06/08/22 10:31 BP 147/69 06/08/22 10:31 Pulse Ox 96 06/08/22 05:00 FiO2 Intake & Output 06/07/22 06/08/22 06/08/22 18:59 06:59 18:59 Other: Voiding Method Toilet Toilet # Voids 2 2 - Exam GENERAL EXAM: Alert, pleasant 71-year-old male, on 3 L nasal cannula, comfortable in no apparent distress. HEAD: Normocephalic. EYES: Normal reaction of pupils, equal size. NOSE: Clear with pink turbinates. THROAT: No erythema or exudates. NECK: No masses, no JVD. CHEST: No chest wall deformity. LUNGS: Equal air entry with scattered rhonchi, end expiratory wheeze, diminished. CVS: S1 and S2 normal with no audible murmur, regular rhythm. ABDOMEN: No hepatosplenomegaly, normal bowel sounds, no guarding or rigidity. SPINE: No scoliosis or deformity SKIN: No rashes CENTRAL NERVOUS SYSTEM: No focal deficits, tone is normal in all 4 extremities. EXTREMITIES: There is no peripheral edema. No clubbing, no cyanosis. Peripheral pulses are intact. - Labs CBC & Chem 7: 06/03/22 04:24 06/08/22 05:09 Labs: Abnormal Lab Results - Last 24 Hours (Table) 06/08/22 Range/Units 05:09 Chloride 95 L (96-109) mmol/L Carbon Dioxide 39.1 H (20.0-27.5) mmol/L Anion Gap 7.90 L (10.00-18.00) mmol/L BUN 35.3 H (9.0-27.0) mg/dL BUN/Creatinine Ratio 35.30 H (12.00-20.00) Ratio Glucose 146 H (70-110) mg/dL Assessment and Plan Assessment: Acute on chronic hypoxemic respiratory failure secondary to COPD exacerbation. The patient has severe oxygen-dependent COPD. FEV1 is 40% of predicted. Chronic hypoxemic respiratory failure, on home O2 at 4 L. CAD with previous coronary intervention and stenting. History of aortic valve replacement, with a bioprosthetic aortic valve. Valvular heart disease. Chronic atrial fibrillation, anticoagulated with Eliquis. History of hypertension. Hyperlipidemia. Moderate to severe pulmonary hypertension. Prostate cancer, status post prostatectomy. Alcoholic liver disease/cirrhosis. Prior history of GI bleed. Prior history of aortic dissection. Macular degeneration. Previous history of right lower extremity DVT. Plan: The patient was seen and evaluated Medications and labs reviewed Cleared for discharge from the pulmonary standpoint Continue his home pulmonary medications Continue his home oxygen Complete a prednisone taper starting at 40 mg daily for 4 days Follow-up in the office in a week I have personally seen and examined the patient, performed the documentation and the assessment and plan as written. Number of minutes spent on the visit: 10.
== END 2022-06-08 12:09 | disposition home or self-care (01) | DRG 190 ==
LOC: EC 03:32 → 5NMEDONC 05:59
PROVIDERS: ADMIT Internal Medicine; ATTEND Internal Medicine
DX: J44.1 Chronic obstructive pulmonary disease with (acute) exacerbation (principal); I50.33 Acute on chronic diastolic (congestive) heart failure; J96.21 Acute and chronic respiratory failure with hypoxia; F03.94 Unspecified dementia, unspecified severity, with anxiety; I38 Endocarditis, valve unspecified; F05 Delirium due to known physiological condition; I48.21 Permanent atrial fibrillation; F03.93 Unspecified dementia, unspecified severity, with mood disturbance; F03.918 Unspecified dementia, unspecified severity, with other behavioral disturbance; I27.20 Pulmonary hypertension, unspecified; K70.30 Alcoholic cirrhosis of liver without ascites; I11.0 Hypertensive heart disease with heart failure; D64.9 Anemia, unspecified; E03.9 Hypothyroidism, unspecified; F10.21 Alcohol dependence, in remission; E83.51 Hypocalcemia; Z99.81 Dependence on supplemental oxygen; J84.10 Pulmonary fibrosis, unspecified; G47.01 Insomnia due to medical condition; Z66 Do not resuscitate; I25.10 Atherosclerotic heart disease of native coronary artery without angina pectoris; E78.5 Hyperlipidemia, unspecified; H91.90 Unspecified hearing loss, unspecified ear; F17.210 Nicotine dependence, cigarettes, uncomplicated; K59.00 Constipation, unspecified; E83.42 Hypomagnesemia; H93.13 Tinnitus, bilateral; H35.30 Unspecified macular degeneration; Z20.822 Contact with and (suspected) exposure to COVID-19; Z28.310 Unvaccinated for COVID-19; Z79.899 Other long term (current) drug therapy; Z79.01 Long term (current) use of anticoagulants; Z79.890 Hormone replacement therapy; Z79.82 Long term (current) use of aspirin; Z79.51 Long term (current) use of inhaled steroids; Z88.8 Allergy status to other drugs, medicaments and biological substances; Z86.73 Personal history of transient ischemic attack (TIA), and cerebral infarction without residual deficits; Z95.3 Presence of xenogenic heart valve; Z95.5 Presence of coronary angioplasty implant and graft; Z95.1 Presence of aortocoronary bypass graft; Z86.79 Personal history of other diseases of the circulatory system; Z87.19 Personal history of other diseases of the digestive system; I25.2 Old myocardial infarction
CPT/HCPCS: 36415; 71046; 80048; 80053; 83605; 83735; 83880; 84484; 85025; 85610; 85730; 87635; 93005; 94640; 94760; 96374; 99285

== ENCOUNTER 2022-07-29 13:25 | Inpatient (IN) | payer OTHER, MEDICARE, BC ==
--- NOTE | 2022-07-29 13:36 | ED ---
General Adult HPI - General Source: patient, family, RN notes reviewed Mode of arrival: wheelchair Limitations: physical limitation <Rangel Hood - Last Filed: 07/29/22 13:34> <Milady Ocasio - Last Filed: 08/04/22 14:03> - General Stated complaint: coughing up blood, fever Time Seen by Provider: 07/29/22 13:32 - History of Present Illness Initial comments: This a 72-year-old male presents emergency Department with chief complaint short ness of breath, coughing up blood.Patient has a long history of lung disease, cardiac disease. Patient is on 2 L of oxygen chronically. Family reports patient had some choking episodes recently and may have aspirated some food. Patient does minute that he has a productive cough there is bright red blood mixed in the sputum. Patient has had some mild chest discomfort.. Patient reportedly has been having a fever associated with this cough, congestion. Patient is on liquids currently. (Rangel Hood) - Related Data Home Medications Medication Instructions Recorded Confirmed Apixaban [Eliquis] 5 mg PO BID 08/04/20 07/29/22 Levothyroxine Sodium [Euthyrox] 50 mcg PO DAILY 08/04/20 07/29/22 Aspirin EC [Ecotrin Low Dose] 81 mg PO DAILY 12/24/20 07/29/22 Mirtazapine [Remeron] 15 mg PO HS 12/24/20 07/29/22 Pantoprazole Sodium 40 mg PO AC-BRKFST 12/24/20 07/29/22 Thiamine [Vitamin B-1] 100 mg PO DAILY 12/24/20 07/29/22 Atorvastatin [Lipitor] 20 mg PO HS 10/15/21 07/29/22 Escitalopram Oxalate [Lexapro] 20 mg PO DAILY 10/15/21 07/29/22 Lidocaine 4% Cream [Lmx 4] 1 applic TOPICAL DAILY PRN 10/15/21 07/29/22 Metoprolol Tartrate [Lopressor] 12.5 mg PO BID 11/03/21 07/29/22 Lidocaine 5% Patch [Lidoderm 5% 1 patch TOPICAL DAILY PRN 05/17/22 07/29/22 Patch] Sildenafil [Revatio] 20 mg PO TID 07/29/22 07/29/22 Previous Rx's Medication Instructions Recorded Furosemide [Lasix] 40 mg PO DAILY 30 Days #30 tab 05/21/22 Budesonide-Formot 160-4.5 Mcg 2 puff INHALATION RT-BID #1 each 06/08/22 [Symbicort 160-4.5 Mcg Inhaler] Ipratropium-Albuterol Nebulize 3 ml INHALATION RT-QID PRN #120 06/08/22 [Duoneb 0.5 mg-3 mg/3 ml Soln] each Allergies Allergy/AdvReac Type Severity Reaction Status Date / Time primidone Allergy Rash/Hives Verified 07/29/22 15:18 gabapentin AdvReac DIZZINESS Verified 07/29/22 15:18 Review of Systems ROS Other: All systems not noted in ROS Statement are negative. <Rangel Hood - Last Filed: 07/29/22 13:34> ROS Other: All systems not noted in ROS Statement are negative. <Milady Ocasio - Last Filed: 08/04/22 14:03> ROS Statement: Those systems with pertinent positive or pertinent negative responses have been documented in the HPI. Past Medical History Past Medical History: Atrial Fibrillation, Atrial Flutter, Coronary Artery Disease (CAD), Cancer, Chest Pain / Angina, Heart Failure, COPD, CVA/TIA, Deep Vein Thrombosis (DVT), Eye Disorder, GERD/Reflux, GI Bleed, Hearing Disorder / Deafness, Hyperlipidemia, Hypertension, Liver Disease, Memory Impairment, Pneumonia, Vascular Disorder Additional Past Medical History / Comment(s): Stable dissection of the descending aorta, chronic atrial fibrillation and is anticoagulated with warfarin, aortic valve replacement with a bioprosthetic valve, pulmonary hyper tension, chronic hypoxic respiratory failure with home O2 at , previous pneumonia 2008 and 2014, prostate cancer with prostatectomy, DVT R lower leg x2, macular degeneration L eye, left arm fracture, chronic tinnitus in both ears, gastritis, lower GIm bleed, UTI, liver cirrhosis related to history of alcoholism, hepatitis C at age 14yrs., feeding tube, alcoholism Last Myocardial Infarction Date:: unsure History of Any Multi-Drug Resistant Organisms: None Reported Date of last positivie culture/infection: None MDRO Source:: None Past Surgical History: Cardiac Valve Replacement, Cholecystectomy, Coronary Bypass/CABG, Heart Catheterization, Heart Catheterization With Stent, Hernia Repair, Orthopedic Surgery, Prostate Surgery Additional Past Surgical History / Comment(s): Aortic valve replacement, prostatectomy, right inguinal hernia repair 2, bilateral knee arthroscopy, colonoscopy/polypectomy, EGD, right leg varicose vein stripping, removal of a blood clot from the right lower extremity, cervical surgery d/t injury in [place] and removal of shrapnel's from the right shoulder, feeding tube Past Anesthesia/Blood Transfusion Reactions: No Reported Reaction Date of Last Stent Placement:: 2016 Past Psychological History: No Psychological Hx Reported Smoking Status: Current some day smoker Past Alcohol Use History: Rare Past Drug Use History: None Reported - Past Family History Mother Family Medical History: Diabetes Mellitus Additional Family Medical History / Comment(s): Mother at age 74 from diabetic complications. Father Family Medical History: Congestive Heart Failure (CHF) Additional Family Medical History / Comment(s): Father at age 91 yrs. <Rangel Hood - Last Filed: 07/29/22 13:34> General Exam General appearance: alert, in no apparent distress Head exam: Present: atraumatic, normocephalic, normal inspection Eye exam: Present: normal appearance, PERRL, EOMI. Absent: scleral icterus, conjunctival injection, periorbital swelling ENT exam: Present: normal exam, mucous membranes moist Neck exam: Present: normal inspection. Absent: tenderness, meningismus, lymphadenopathy Respiratory exam: Present: rales, accessory muscle use, other (tachypnia). Absent: respiratory distress, wheezes, rhonchi, stridor Cardiovascular Exam: Present: normal rhythm, irregular rhythm, normal heart sounds. Absent: systolic murmur, diastolic murmur, rubs, gallop, clicks GI/Abdominal exam: Present: soft, normal bowel sounds. Absent: distended, tenderness, guarding, rebound, rigid Extremities exam: Present: normal inspection, full ROM, normal capillary refill. Absent: tenderness, pedal edema, joint swelling, calf tenderness Back exam: Present: normal inspection Neurological exam: Present: alert, oriented X3, CN II-XII intact Psychiatric exam: Present: normal affect, normal mood Skin exam: Present: warm, dry, intact, normal color. Absent: rash <Milady Ocasio - Last Filed: 08/04/22 14:03> Course Vital Signs 07/29/22 07/29/22 07/29/22 13:34 15:27 16:19 Temperature 99.9 F H 99.6 F Pulse Rate 79 80 86 Respiratory 26 H 22 Rate Blood Pressure 119/65 132/69 O2 Sat by Pulse 93 L 99 Oximetry 07/29/22 07/29/22 07/29/22 16:32 17:28 19:09 Temperature Pulse Rate 76 94 89 Respiratory 22 Rate Blood Pressure 131/69 O2 Sat by Pulse 95 Oximetry 07/29/22 07/29/22 07/29/22 19:26 19:27 19:37 Temperature Pulse Rate 87 87 89 Respiratory Rate Blood Pressure O2 Sat by Pulse Oximetry 07/29/22 23:11 Temperature Pulse Rate 74 Respiratory 17 Rate Blood Pressure 137/68 O2 Sat by Pulse 97 Oximetry EKG Findings - EKG Comments: EKG Findings:: EKG demonstrates A. fib with a rate of 79. QRS 84. QTC of 470. ST depression in V1 through V6. No ST segment elevation. EKG interpreted by myself <Milady Ocasio - Last Filed: 08/04/22 14:03> Medical Decision Making - Lab Data Result diagrams: 08/04/22 08:44 08/04/22 08:44 <Milady Ocasio - Last Filed: 08/04/22 14:03> - Medical Decision Making Upon arrival patient was placed into room 10. A thorough history and physical was performed. History is mainly obtained by the patient's son. His oxygen is increased to 4 L the patient is saturating 93%. He has audible lung sounds. He is hooked up to continuous pulse ox and cardiac monitoring. 12-lead EKG was obtained. IV is established laboratory studies are conducted. Laboratory studies are reviewed and demonstrated drop in the patient's hemoglobin to 9.3 from 11.3. Troponin elevated at 0.189. Influenza and covid are negative. Chest x-ray demonstrates a left lower lobe pneumonia. Blood cultures and sputum cultures obtained. Patient initiated on Rocephin and azithromycin. He was also given a DuoNeb breathing treatments. Discuss results with the patient and recommended admission for current treatment of his hemoptysis and pneumonia. Patient was agreeable to this. Spoke with Dr. Soto who was agreeable to admit the patient. He is currently awaiting a bed on the floor (Milady Ocasio) - Lab Data Lab Results 07/29/22 07/29/22 07/29/22 Range/Units 14:23 14:23 14:23 WBC 8.0 (3.8-10.6) k/uL RBC 3.29 L (4.30-5.90) m/uL Hgb 9.3 L D (13.0-17.5) gm/dL Hct 29.5 L (39.0-53.0) % MCV 89.7 (80.0-100.0) fL MCH 28.2 (25.0-35.0) pg MCHC 31.5 (31.0-37.0) g/dL RDW 17.1 H (11.5-15.5) % Plt Count 110 L (150-450) k/uL MPV 11.1 Neutrophils % 78 % Lymphocytes % 12 % Monocytes % 6 % Eosinophils % 2 % Basophils % 0 % Neutrophils # 6.2 (1.3-7.7) k/uL Lymphocytes # 1.0 (1.0-4.8) k/uL Monocytes # 0.4 (0-1.0) k/uL Eosinophils # 0.1 (0-0.7) k/uL Basophils # 0.0 (0-0.2) k/uL Hypochromasia Marked Anisocytosis Slight PT 11.1 (9.0-12.0) sec INR 1.1 (<1.2) APTT 36.9 H (22.0-30.0) sec Sodium 141 (137-145) mmol/L Potassium 4.0 (3.5-5.1) mmol/L Chloride 103 (98-107) mmol/L Carbon Dioxide 33 H (22-30) mmol/L Anion Gap 5 mmol/L BUN 22 H (9-20) mg/dL Creatinine 1.11 (0.66-1.25) mg/dL Est GFR (CKD-EPI)AfAm 75 (>60 ml/min/1.73 sqM) Est GFR (CKD-EPI)NonAf 65 (>60 ml/min/1.73 sqM) Glucose 102 H (74-99) mg/dL Plasma Lactic Acid Silvino (0.7-2.0) mmol/L Calcium 8.2 L (8.4-10.2) mg/dL Magnesium 2.0 (1.6-2.3) mg/dL Total Bilirubin 0.6 (0.2-1.3) mg/dL AST 27 (17-59) U/L ALT 14 (4-49) U/L Alkaline Phosphatase 130 H (38-126) U/L Troponin I (0.000-0.034) ng/mL NT-Pro-B Natriuret Pep pg/mL Total Protein 6.6 (6.3-8.2) g/dL Albumin 3.6 (3.5-5.0) g/dL Procalcitonin (0.02-0.09) ng/mL Influenza Type A (PCR) (Not Detectd) Influenza Type B (PCR) (Not Detectd) RSV (PCR) (Not Detectd) SARS-CoV-2 (PCR) (Not Detectd) 07/29/22 07/29/22 07/29/22 Range/Units 14:23 14:23 14:23 WBC (3.8-10.6) k/uL RBC (4.30-5.90) m/uL Hgb (13.0-17.5) gm/dL Hct (39.0-53.0) % MCV (80.0-100.0) fL MCH (25.0-35.0) pg MCHC (31.0-37.0) g/dL RDW (11.5-15.5) % Plt Count (150-450) k/uL MPV Neutrophils % % Lymphocytes % % Monocytes % % Eosinophils % % Basophils % % Neutrophils # (1.3-7.7) k/uL Lymphocytes # (1.0-4.8) k/uL Monocytes # (0-1.0) k/uL Eosinophils # (0-0.7) k/uL Basophils # (0-0.2) k/uL Hypochromasia Anisocytosis PT (9.0-12.0) sec INR (<1.2) APTT (22.0-30.0) sec Sodium (137-145) mmol/L Potassium (3.5-5.1) mmol/L Chloride (98-107) mmol/L Carbon Dioxide (22-30) mmol/L Anion Gap mmol/L BUN (9-20) mg/dL Creatinine (0.66-1.25) mg/dL Est GFR (CKD-EPI)AfAm (>60 ml/min/1.73 sqM) Est GFR (CKD-EPI)NonAf (>60 ml/min/1.73 sqM) Glucose (74-99) mg/dL Plasma Lactic Acid Silvino 1.8 (0.7-2.0) mmol/L Calcium (8.4-10.2) mg/dL Magnesium (1.6-2.3) mg/dL Total Bilirubin (0.2-1.3) mg/dL AST (17-59) U/L ALT (4-49) U/L Alkaline Phosphatase (38-126) U/L Troponin I 0.189 H* (0.000-0.034) ng/mL NT-Pro-B Natriuret Pep 2930 pg/mL Total Protein (6.3-8.2) g/dL Albumin (3.5-5.0) g/dL Procalcitonin (0.02-0.09) ng/mL Influenza Type A (PCR) (Not Detectd) Influenza Type B (PCR) (Not Detectd) RSV (PCR) (Not Detectd) SARS-CoV-2 (PCR) (Not Detectd) 07/29/22 07/29/22 Range/Units 14:23 14:23 WBC (3.8-10.6) k/uL RBC (4.30-5.90) m/uL Hgb (13.0-17.5) gm/dL Hct (39.0-53.0) % MCV (80.0-100.0) fL MCH (25.0-35.0) pg MCHC (31.0-37.0) g/dL RDW (11.5-15.5) % Plt Count (150-450) k/uL MPV Neutrophils % % Lymphocytes % % Monocytes % % Eosinophils % % Basophils % % Neutrophils # (1.3-7.7) k/uL Lymphocytes # (1.0-4.8) k/uL Monocytes # (0-1.0) k/uL Eosinophils # (0-0.7) k/uL Basophils # (0-0.2) k/uL Hypochromasia Anisocytosis PT (9.0-12.0) sec INR (<1.2) APTT (22.0-30.0) sec Sodium (137-145) mmol/L Potassium (3.5-5.1) mmol/L Chloride (98-107) mmol/L Carbon Dioxide (22-30) mmol/L Anion Gap mmol/L BUN (9-20) mg/dL Creatinine (0.66-1.25) mg/dL Est GFR (CKD-EPI)AfAm (>60 ml/min/1.73 sqM) Est GFR (CKD-EPI)NonAf (>60 ml/min/1.73 sqM) Glucose (74-99) mg/dL Plasma Lactic Acid Silvino (0.7-2.0) mmol/L Calcium (8.4-10.2) mg/dL Magnesium (1.6-2.3) mg/dL Total Bilirubin (0.2-1.3) mg/dL AST (17-59) U/L ALT (4-49) U/L Alkaline Phosphatase (38-126) U/L Troponin I (0.000-0.034) ng/mL NT-Pro-B Natriuret Pep pg/mL Total Protein (6.3-8.2) g/dL Albumin (3.5-5.0) g/dL Procalcitonin 1.34 H (0.02-0.09) ng/mL Influenza Type A (PCR) Not Detected (Not Detectd) Influenza Type B (PCR) Not Detected (Not Detectd) RSV (PCR) Not Detected (Not Detectd) SARS-CoV-2 (PCR) Not Detected (Not Detectd) Disposition <Rangel Hood - Last Filed: 07/29/22 13:34> Is patient prescribed a controlled substance at d/c from ED?: No Time of Disposition: 15:44 Decision to Admit Reason: Admit from EC Decision Date: 07/29/22 Decision Time: 15:44 <Milady Ocasio - Last Filed: 08/04/22 14:03> Clinical Impression: Pneumonia, Hemoptysis, COPD exacerbation, NSTEMI (non-ST elevated myocardial infarction), Acute respiratory insufficiency Disposition: ADMITTED IP TO THIS HOSP Condition: Serious
[2022-07-29 14:29] LABS: Anisocytosis Slight; Basophils % (A) 0 %; Eosinophils # (A) 0.1 k/uL (0-0.7); Eosinophils % (A) 2 %; HCT 29.5 % (39.0-53.0); Hypochromasia Marked; Lymphocytes % (A) 12 %; MCH 28.2 pg (25.0-35.0); MCHC 31.5 g/dL (31.0-37.0); MCV 89.7 fL (80.0-100.0); Mean Platelet Volume 11.1; Monocytes # (A) 0.4 k/uL (0-1.0); Monocytes % (A) 6 %; Neutrophils # (A) 6.2 k/uL (1.3-7.7); Neutrophils % (A) 78 %; Platelet Count 110 k/uL (150-450); RBC 3.29 m/uL (4.30-5.90); RDW 17.1 % (11.5-15.5)
[2022-07-29 14:38] LABS: INR 1.1 (<1.2); Partial Thromboplastin Time 36.9 sec (22.0-30.0); Prothrombin Time 11.1 sec (9.0-12.0)
[2022-07-29 14:39] LABS: HGB 9.3 gm/dL (13.0-17.5)
--- NOTE | 2022-07-29 14:45 | XR ---
EXAMINATION TYPE: XR chest 2V DATE OF EXAM: 07/29/2022 COMPARISON: 06/03/2022 INDICATION: Difficulty breathing, congestion TECHNIQUE: Frontal and lateral views of the chest are obtained. FINDINGS: The heart size is upper limits for normal. The pulmonary vasculature is somewhat prominent. Left lower lobe consolidation is present. Correlate for pneumonia. Some patchy infiltrate may be with in the right lung field. Stable surgical clips in the right upper chest. IMPRESSION: 1. Left lower lobe consolidation. Correlate for pneumonia. Follow-up is recommended. 2. Some mild nonspecific infiltrative changes in the right lung base.
[2022-07-29 14:48] LABS: Albumin 3.6 g/dL (3.5-5.0); Total Protein 6.6 g/dL (6.3-8.2)
[2022-07-29 14:49] LABS: Calcium 8.2 mg/dL (8.4-10.2); Total Bilirubin 0.6 mg/dL (0.2-1.3)
[2022-07-29] MEDS ORDERED: PNEUMONIA PROTOCOL UTILIZED 1 EACH MISC PO PRN (15:44)
[2022-07-29] MEDS ORDERED: AZITHROMYCIN 500 MG in SODIUM CHLORIDE 0.9% 250 ML IVPB STA (15:44)
[2022-07-29] MEDS: IPRATROPIUM-ALBUTEROL 3 ML NEB INHALATION SCH ×3 (16:19→19:08)
[2022-07-29] MEDS ORDERED: NALOXONE 0.4 MG/ML 1 ML VIAL IV PRN (16:43)
[2022-07-29] MEDS ORDERED: ACETAMINOPHEN TAB 325 MG TAB PO PRN (16:43)
[2022-07-29] MEDS ORDERED: ONDANSETRON 4 MG/2 ML VIAL IVP PRN (16:43)
[2022-07-29] MEDS ORDERED: VANCOMYCIN IV PER PHARMACY 1 EACH MISC MISCELLANE PRN (16:52)
[2022-07-29] MEDS ORDERED: PIPERACILLIN-TAZOBACTAM 3.375 GM in SODIUM CHLORIDE 0.9% 100 ML IVPB STA (16:57)
--- NOTE | 2022-07-29 17:03 | P.HPIM ---
History of Present Illness H&P Date: 07/29/22 Chief Complaint: sob 72-year-old male with history of COPD on 2 L, chronic congestive heart failure, possible pulmonary fibrosis, permanent atrial fibrillation, CAD, pulmonary hypertension, TIA presents emergency Department with chief complaint shortness of breath, coughing up blood for the past several days. He brings up clear phlegm as well as blood with coughing. Family reports patient had some choking episodes recently and may have aspirated some food. Patient has had some chest discomfort as well as abdominal pain and nausea. No vomiting. According to his son is at bedside he also had a fever up to 101.3. In the emergency department his O2 saturations were in the low 90s, he was requiring 6 L of nasal cannula. Troponin was 0.189, proBNP 2930. Rest of labs okay. Chest x-ray showed left lower lobe infiltrates as well as some right lower lobe infiltrates as well. He was admitted for further evaluation and management. Review of Systems Complete review of system performed, pertinent positives per HPI, otherwise negative 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, chronic atrial fibrillation and is anticoagulated with warfarin, aortic valve replacement with a bioprosthetic valve, pulmonary hypertension, chronic hypoxic respiratory failure with home O2 at , previous pneumonia 2008 and 2014, prostate cancer with prostatectomy, DVT R lower leg x2, macular degeneration L eye, left arm fracture, chronic tinnitus in both ears, gastritis, lower GIm bleed, UTI, liver cirrhosis related to history of alcoholism, hepatitis C at age 14yrs., feeding tube, alcoholism Last Myocardial Infarction Date:: unsure History of Any Multi-Drug Resistant Organisms: None Reported Date of last positivie culture/infection: None MDRO Source:: None Past Surgical History: Cardiac Valve Replacement, Cholecystectomy, Coronary Bypass/CABG, Heart Catheterization, Heart Catheterization With Stent, Hernia Repair, Orthopedic Surgery, Prostate Surgery Additional Past Surgical History / Comment(s): Aortic valve replacement, prostatectomy, right inguinal hernia repair 2, bilateral knee arthroscopy, colonoscopy/polypectomy, EGD, right leg varicose vein stripping, removal of a blood clot from the right lower extremity, cervical surgery d/t injury in [place] and removal of shrapnel's from the right shoulder, feeding tube Past Anesthesia/Blood Transfusion Reactions: No Reported Reaction Date of Last Stent Placement:: 2016 Past Psychological History: No Psychological Hx Reported Smoking Status: Current some day smoker Past Alcohol Use History: Rare Past Drug Use History: None Reported - Past Family History Mother Family Medical History: Diabetes Mellitus Additional Family Medical History / Comment(s): Mother at age 74 from diabetic complications. Father Family Medical History: Congestive Heart Failure (CHF) Additional Family Medical History / Comment(s): Father at age 91 yrs. Medications and Allergies Home Medications Medication Instructions Recorded Confirmed Type Apixaban [Eliquis] 5 mg PO BID 08/04/20 07/29/22 History Levothyroxine Sodium [Euthyrox] 50 mcg PO DAILY 08/04/20 07/29/22 History Aspirin EC [Ecotrin Low Dose] 81 mg PO DAILY 12/24/20 07/29/22 History Mirtazapine [Remeron] 15 mg PO HS 12/24/20 07/29/22 History Pantoprazole Sodium 40 mg PO AC-BRKFST 12/24/20 07/29/22 History Thiamine [Vitamin B-1] 100 mg PO DAILY 12/24/20 07/29/22 History Atorvastatin [Lipitor] 20 mg PO HS 10/15/21 07/29/22 History Escitalopram Oxalate [Lexapro] 20 mg PO DAILY 10/15/21 07/29/22 History Lidocaine 4% Cream [Lmx 4] 1 applic TOPICAL DAILY PRN 10/15/21 07/29/22 History Metoprolol Tartrate [Lopressor] 12.5 mg PO BID 11/03/21 07/29/22 History Lidocaine 5% Patch [Lidoderm 5% 1 patch TOPICAL DAILY PRN 05/17/22 07/29/22 History Patch] Furosemide [Lasix] 40 mg PO DAILY 30 Days #30 tab 05/21/22 07/29/22 Rx Budesonide-Formot 160-4.5 Mcg 2 puff INHALATION RT-BID #1 each 06/08/22 07/29/22 Rx [Symbicort 160-4.5 Mcg Inhaler] Ipratropium-Albuterol Nebulize 3 ml INHALATION RT-QID PRN #120 06/08/22 07/29/22 Rx [Duoneb 0.5 mg-3 mg/3 ml Soln] each Sildenafil [Revatio] 20 mg PO TID 07/29/22 07/29/22 History Allergies Allergy/AdvReac Type Severity Reaction Status Date / Time primidone Allergy Rash/Hives Verified 07/29/22 15:18 gabapentin AdvReac DIZZINESS Verified 07/29/22 15:18 Physical Exam Vitals: Vital Signs Temp Pulse Resp BP Pulse Ox 07/29/22 16:32 76 07/29/22 16:19 86 07/29/22 15:27 99.6 F 80 22 132/69 99 07/29/22 13:34 99.9 F H 79 26 H 119/65 93 L Intake and Output 07/29/22 07/29/22 07/29/22 06:59 14:59 22:59 Other: Weight 79.379 kg Constitutional: No acute distress, conversant, pleasant Eyes:Anicteric sclerae, moist conjunctiva, no lid-lag, PERRLA, ENMT: Oropharynx clear, no erythema, exudates Neck: Supple, FROM, no masses, or JVD, No carotid bruits, No thyromegaly Lungs: Bilateral expiratory wheezing and rhonchi. Clear to percussion, Normal respiratory effort, no accessory muscle use Cardiovascular: Heart regular in rate and rhythm, No murmurs, gallops, or rubs, No peripheral edema Abdominal: Soft, Nontender, no guarding, rebound or rigidity, Normoactive bowel sounds, No hepatomegaly, No splenomegaly, No palpable mass Skin: Normal temperature, tone, texture, turgor, no induration, No subcutaneous nodules, No rash, lesions, No ulcers Extremities: No digital cyanosis, No clubbing, Pedal pulses intact and symmetrical, Radial pulses intact and symmetrical, No calf tenderness Psychiatric: Alert and oriented to person, place and time, appropriate affect, intact judgement Neuro: Muscles Strength 5/5 in all 4 extremities, Sensation to light touch grossly present throughout, Cranial nerves II-XII grossly intact, no focal sensory deficits Results CBC & Chem 7: 07/29/22 14:23 07/29/22 14:23 Labs: Abnormal Lab Results - Last 24 Hours (Table) 07/29/22 07/29/22 07/29/22 Range/Units 14:23 14:23 14:23 RBC 3.29 L (4.30-5.90) m/uL Hgb 9.3 L D (13.0-17.5) gm/dL Hct 29.5 L (39.0-53.0) % RDW 17.1 H (11.5-15.5) % Plt Count 110 L (150-450) k/uL APTT 36.9 H (22.0-30.0) sec Carbon Dioxide 33 H (22-30) mmol/L BUN 22 H (9-20) mg/dL Glucose 102 H (74-99) mg/dL Calcium 8.2 L (8.4-10.2) mg/dL Alkaline Phosphatase 130 H (38-126) U/L Troponin I (0.000-0.034) ng/mL 07/29/22 Range/Units 14:23 RBC (4.30-5.90) m/uL Hgb (13.0-17.5) gm/dL Hct (39.0-53.0) % RDW (11.5-15.5) % Plt Count (150-450) k/uL APTT (22.0-30.0) sec Carbon Dioxide (22-30) mmol/L BUN (9-20) mg/dL Glucose (74-99) mg/dL Calcium (8.4-10.2) mg/dL Alkaline Phosphatase (38-126) U/L Troponin I 0.189 H* (0.000-0.034) ng/mL Assessment and Plan Plan: Acute on chronic hypoxic respiratory failure Hemoptysis Health care associated pneumonia Acute COPD exacerbation Possible aspiration pneumonia Start broad-spectrum antibiotics with Zosyn and vancomycin, steroids and bronchodilators Check MRSA nasal screen Oxygen to keep sats above 92%. Consult pulm Chronic congestive heart failure Stable Chronic atrial Fibrillation, Coronary Artery Disease (CAD), GERD/Reflux, GI Bleed, Hyperlipidemia, Hypertension, Stable dissection of the descending aorta, Pulmonary hypertension, Prostate cancer with prostatectomy, Macular degeneration L eye, left arm fracture, Liver cirrhosis related to history of alcoholism, All stable resume meds Admit to inpatient expected length of stay more than 2 midnights.
--- NOTE | 2022-07-29 17:14 | P.CNPUL ---
History of Present Illness Consult date: 07/29/22 Requesting physician: Yane Soto Reason for consult: dyspnea, abnormal CXR/CT Chief complaint: Shortness of breath, coughing up blood History of present illness: This a very pleasant 72-year-old male patient who follows with the [facility] for his primary care needs. He has a history of multiple medical problems including digestive heart failure, severe COPD, severe pulmonary hypertension, coronary artery disease, with a previous stent to the LAD, atrial fibrillation, previous aortic valve replacement, hyperlipidemia, and previous heavy tobacco use. The patient is seen today in the emergency room after coming in this morning with a 2-3 day history of increasing shortness of breath, cough or congestion. He had choked on food earlier in the week. He is having some right red blood in his sputum. He did have a fever of 101.3, 99.9 at home according to his son who is present. He does have oxygen dependent chronic obstructive pulmonary disease and is usually on oxygen at 2 L. His O2 saturations were noted to be in the mid 80s and subsequently recovered in the 90s. He is currently on 4 L/m per nasal cannula. Current temperature 99.6. Chest x-ray revealing a left lower lobe consolidation and some mild nonspecific infiltrate changes in the right lung base. White count 8.0. Hemoglobin 9.3. Platelet count 110,000. Sodium 141 potassium 4.0. BUN 22. Creatinine 1.11. Glucose 102. Troponin 0.189. ProBNP 2930. Influenza screen negative. RSV screen negative. COVID-19 screen negative. He's been initiated and DuoNeb inhalations, Symbicort, IV Solu- Medrol. Antibiotics in the form of vancomycin and Zosyn. He is anticoagulated with Eliquis. Review of Systems REVIEW OF SYSTEMS: CONSTITUTIONAL: Denies any recent significant weight loss or weight gain. EYES: Denies change in vision. EARS, NOSE, MOUTH, THROAT: Denies headaches, denies sore throat. CARDIOVASCULAR: Denies chest pain, palpitations or syncopal episodes. RESPIRATORY: Positive for shortness of breath, cough, congestion and hemoptysis. GASTROINTESTINAL: Denies change in appetite, denies abdominal pain GENITOURINARY: Denies hematuria, denies infections. MUSKULOSKELETAL: Denies pain, denies swelling. INTEGUMENTARY: Denies rash, denies eczema. NEUROLOGICAL: Denies recent memory loss, no recent seizure activity. PSYCHIATRIC: Denies anxiety, denies depression. HEMATOLOGIC/LYMPHATIC: Denies anemia, denies enlarged lymph nodes. Past Medical History Past Medical History: Atrial Fibrillation, Atrial Flutter, Coronary Artery Disea se (CAD), Cancer, Chest Pain / Angina, Heart Failure, COPD, CVA/TIA, Deep Vein Thrombosis (DVT), Eye Disorder, GERD/Reflux, GI Bleed, Hearing Disorder / Deafness, Hyperlipidemia, Hypertension, Liver Disease, Memory Impairment, Pneumonia, Vascular Disorder Additional Past Medical History / Comment(s): Stable dissection of the descending aorta, chronic atrial fibrillation and is anticoagulated with warfarin, aortic valve replacement with a bioprosthetic valve, pulmonary h ypertension, chronic hypoxic respiratory failure with home O2 at , previous pneumonia 2008 and 2014, prostate cancer with prostatectomy, DVT R lower leg x2, macular degeneration L eye, left arm fracture, chronic tinnitus in both ears, gastritis, lower GIm bleed, UTI, liver cirrhosis related to history of alcoholism, hepatitis C at age 14yrs., feeding tube, alcoholism Last Myocardial Infarction Date:: unsure History of Any Multi-Drug Resistant Organisms: None Reported Date of last positivie culture/infection: None MDRO Source:: None Past Surgical History: Cardiac Valve Replacement, Cholecystectomy, Coronary Bypass/CABG, Heart Catheterization, Heart Catheterization With Stent, Hernia Repair, Orthopedic Surgery, Prostate Surgery Additional Past Surgical History / Comment(s): Aortic valve replacement, prostatectomy, right inguinal hernia repair 2, bilateral knee arthroscopy, colonoscopy/polypectomy, EGD, right leg varicose vein stripping, removal of a blood clot from the right lower extremity, cervical surgery d/t injury in [place] and removal of shrapnel's from the right shoulder, feeding tube Past Anesthesia/Blood Transfusion Reactions: No Reported Reaction Date of Last Stent Placement:: 2016 Past Psychological History: No Psychological Hx Reported Smoking Status: Current some day smoker Past Alcohol Use History: Rare Past Drug Use History: None Reported - Past Family History Mother Family Medical History: Diabetes Mellitus Additional Family Medical History / Comment(s): Mother at age 74 from diabetic complications. Father Family Medical History: Congestive Heart Failure (CHF) Additional Family Medical History / Comment(s): Father at age 91 yrs. Medications and Allergies Home Medications Medication Instructions Recorded Confirmed Type Apixaban [Eliquis] 5 mg PO BID 08/04/20 07/29/22 History Levothyroxine Sodium [Euthyrox] 50 mcg PO DAILY 08/04/20 07/29/22 History Aspirin EC [Ecotrin Low Dose] 81 mg PO DAILY 12/24/20 07/29/22 History Mirtazapine [Remeron] 15 mg PO HS 12/24/20 07/29/22 History Pantoprazole Sodium 40 mg PO AC-BRKFST 12/24/20 07/29/22 History Thiamine [Vitamin B-1] 100 mg PO DAILY 12/24/20 07/29/22 History Atorvastatin [Lipitor] 20 mg PO HS 10/15/21 07/29/22 History Escitalopram Oxalate [Lexapro] 20 mg PO DAILY 10/15/21 07/29/22 History Lidocaine 4% Cream [Lmx 4] 1 applic TOPICAL DAILY PRN 10/15/21 07/29/22 History Metoprolol Tartrate [Lopressor] 12.5 mg PO BID 11/03/21 07/29/22 History Lidocaine 5% Patch [Lidoderm 5% 1 patch TOPICAL DAILY PRN 05/17/22 07/29/22 History Patch] Furosemide [Lasix] 40 mg PO DAILY 30 Days #30 tab 05/21/22 07/29/22 Rx Budesonide-Formot 160-4.5 Mcg 2 puff INHALATION RT-BID #1 each 06/08/22 07/29/22 Rx [Symbicort 160-4.5 Mcg Inhaler] Ipratropium-Albuterol Nebulize 3 ml INHALATION RT-QID PRN #120 06/08/22 07/29/22 Rx [Duoneb 0.5 mg-3 mg/3 ml Soln] each Sildenafil [Revatio] 20 mg PO TID 07/29/22 07/29/22 History Allergies Allergy/AdvReac Type Severity Reaction Status Date / Time primidone Allergy Rash/Hives Verified 07/29/22 15:18 gabapentin AdvReac DIZZINESS Verified 07/29/22 15:18 Physical Exam Vitals: Vital Signs Temp Pulse Resp BP Pulse Ox 07/29/22 16:32 76 07/29/22 16:19 86 07/29/22 15:27 99.6 F 80 22 132/69 99 07/29/22 13:34 99.9 F H 79 26 H 119/65 93 L Intake and Output 07/29/22 07/29/22 07/29/22 06:59 14:59 22:59 Other: Weight 79.379 kg GENERAL EXAM: Alert, pleasant, 72-year-old male patient, on 4 L nasal cannula, fairly comfortable in no apparent distress. HEAD: Normocephalic. EYES: Normal reaction of pupils, equal size. NOSE: Clear with pink turbinates. THROAT: No erythema or exudates. NECK: No masses, no JVD. CHEST: No chest wall deformity. LUNGS: Equal air entry with bilateral scattered rhonchi, end expiratory wheeze. CVS: S1 and S2 normal with no audible murmur, regular rhythm. ABDOMEN: No hepatosplenomegaly, normal bowel sounds, no guarding or rigidity. SPINE: No scoliosis or deformity SKIN: No rashes CENTRAL NERVOUS SYSTEM: No focal deficits, tone is normal in all 4 extremities. EXTREMITIES: There is no peripheral edema. No clubbing, no cyanosis. Peripheral pulses are intact. Results - Laboratory Findings CBC and BMP: 07/29/22 14:23 07/29/22 14:23 PT/INR, D-dimer PT 11.1 sec (9.0-12.0) 07/29/22 14:23 INR 1.1 (<1.2) 07/29/22 14:23 Abnormal lab findings: Abnormal Labs 07/29/22 07/29/22 07/29/22 14:23 14:23 14:23 RBC 3.29 L Hgb 9.3 L D Hct 29.5 L RDW 17.1 H Plt Count 110 L APTT 36.9 H Carbon Dioxide 33 H BUN 22 H Glucose 102 H Calcium 8.2 L Alkaline Phosphatase 130 H Troponin I 07/29/22 14:23 RBC Hgb Hct RDW Plt Count APTT Carbon Dioxide BUN Glucose Calcium Alkaline Phosphatase Troponin I 0.189 H* - Diagnostic Findings Chest x-ray: image reviewed Assessment and Plan Assessment: Acute on chronic hypoxemic respiratory failure secondary to an acute multilobar pneumonia more so in the left lung base Hemoptysis secondary to above Troponin leak Moderate to severe pulmonary hypertension History of aortic valve replacement with bioprosthetic valve History of atrial fibrillation, anticoagulated with Eliquis History of stable dissection of the descending aorta Coronary disease with previous bypass surgery, previous stent placement Chronic obstructive pulmonary disease, oxygen dependent Chronic tobacco dependence History of liver cirrhosis secondary to alcoholism History of prostate cancer status post prostatectomy History of right lower lobe DVT History of macular degeneration Hyperlipidemia Hypertension Plan: The patient was seen and evaluated Chest x-ray, labs and medications reviewed Procalcitonin pending Continue Zosyn and Vanco for now Continue Symbicort, add Pulmicort and Perforomist Continue IV Solu-Medrol Obtain a sputum sample Titrate the FiO2 as tolerated Educated regarding the importance of complete smoking cessation We will continue to follow and make further recommendations based on his clinical status I have personally seen and examined the patient, performed the documentation and the assessment and plan as written. Number of minutes spent on the visit: 20.
[2022-07-29] MEDS: methylPREDNISolone SOD SUCCI 40 MG/ML 1 ML VIAL IV SCH ×2 (18:06→23:38)
[2022-07-29] MEDS: FORMOTEROL FUMARATE 20 MCG/2 ML NEBU INHALATION SCH (19:08)
[2022-07-29] MEDS: BUDESONIDE 1 MG/2 ML NEBU INHALATION SCH (19:08)
[2022-07-29] MEDS ORDERED: IPRATROPIUM-ALBUTEROL 3 ML NEB INHALATION PRN (19:31)
[2022-07-29] MEDS ORDERED: SYMBICORT 160-4.5 MCG INHALER INHALATION SCH (20:00)
[2022-07-29] MEDS: VANCOMYCIN 1,500 MG in SODIUM CHLORIDE 0.9% 500 ML 500 ML IVPB SCH (20:00)
[2022-07-29] MEDS: MIRTAZAPINE 15 MG TAB PO SCH (22:50)
[2022-07-29] MEDS: ATORVASTATIN 20 MG TAB PO SCH (22:50)
[2022-07-29] MEDS: APIXABAN 5 MG TAB PO SCH (22:50)
[2022-07-29] MEDS: SILDENAFIL 20 MG TAB PO SCH (22:51)
[2022-07-29] MEDS: METOPROLOL TARTRATE 12.5 MG TAB PO SCH (22:51)
[2022-07-29] MEDS: PIPERACILLIN-TAZOBACTAM 3.375 GM in SODIUM CHLORIDE 0.9% 100 ML IVPB SCH (23:37)
[2022-07-30] MEDS: PANTOPRAZOLE 40 MG TABLET PO SCH (06:18)
[2022-07-30] MEDS: LEVOTHYROXINE 50 MCG TAB PO SCH (06:18)
[2022-07-30] MEDS: methylPREDNISolone SOD SUCCI 40 MG/ML 1 ML VIAL IV SCH ×4 (06:18→23:12)
--- NOTE | 2022-07-30 07:16 | XR ---
EXAMINATION TYPE: XR chest 2V DATE OF EXAM: 07/30/2022 6:31 AM COMPARISON: Chest radiographs from 07/29/2022 TECHNIQUE: XR chest 2V Frontal and lateral views of the chest. CLINICAL INDICATION:Male, 72 years old with history of pneumonia; FINDINGS: Lungs/Pleura: Small left pleural effusion suggested. Hyperinflation. Persistent interstitial lung mar kings with patchy left basilar airspace disease redemonstrated. Heart/mediastinum: Cardiomediastinal silhouette is enlarged and stable. Atherosclerotic calcificatio ns are seen in the aorta. Left atrial appendage clip. Valvular prosthesis. Musculoskeletal: No acute osseous pathology. Other: Surgical clips overlie the right upper chest. IMPRESSION: 1. Similar patchy left basilar airspace disease with coarsened interstitial markings concerning for pneumonia. 2. Small left pleural effusion suggested.
[2022-07-30] MEDS: BUDESONIDE 1 MG/2 ML NEBU INHALATION SCH ×2 (07:40→20:50)
[2022-07-30] MEDS: FORMOTEROL FUMARATE 20 MCG/2 ML NEBU INHALATION SCH ×2 (07:41→20:50)
[2022-07-30] MEDS: IPRATROPIUM-ALBUTEROL 3 ML NEB INHALATION SCH ×4 (07:41→20:50)
[2022-07-30 07:59] LABS: Anisocytosis Slight; Basophils % (A) 0 %; Eosinophils % (A) 0 %; HCT 33.1 % (39.0-53.0); HGB 10.1 gm/dL (13.0-17.5); Hypochromasia Marked; Lymphocytes # (A) 0.4 k/uL (1.0-4.8); Lymphocytes % (A) 6 %; MCH 28.1 pg (25.0-35.0); MCHC 30.5 g/dL (31.0-37.0); MCV 92.1 fL (80.0-100.0); Mean Platelet Volume 9.6; Monocytes # (A) 0.2 k/uL (0-1.0); Monocytes % (A) 2 %; Neutrophils # (A) 6.6 k/uL (1.3-7.7); Neutrophils % (A) 92 %; Platelet Count 125 k/uL (150-450); WBC 7.2 k/uL (3.8-10.6)
[2022-07-30 08:41] LABS: ALT 17 U/L (4-49); AST 30 U/L (17-59); African American GFR (CKD) >90 (>60 ml/min/1.73 sqM); Albumin 3.9 g/dL (3.5-5.0); Alkaline Phosphatase 126 U/L (38-126); Anion Gap 6 mmol/L; Blood Urea Nitrogen 19 mg/dL (9-20); Calcium 8.3 mg/dL (8.4-10.2); Carbon Dioxide 33 mmol/L (22-30); Chloride 104 mmol/L (98-107); Glucose 153 mg/dL (74-99); Magnesium 2.1 mg/dL (1.6-2.3); Non-African American GFR(CKD) 86 (>60 ml/min/1.73 sqM); Potassium 4.3 mmol/L (3.5-5.1); Sodium 143 mmol/L (137-145); Total Bilirubin 0.8 mg/dL (0.2-1.3); Total Protein 7.1 g/dL (6.3-8.2)
[2022-07-30] MEDS ORDERED: ASPIRIN 81 MG PO SCH (09:00)
[2022-07-30] MEDS: APIXABAN 5 MG TAB PO SCH ×2 (09:43→20:13)
[2022-07-30] MEDS: METOPROLOL TARTRATE 12.5 MG TAB PO SCH ×2 (09:43→20:13)
[2022-07-30] MEDS: ESCITALOPRAM 20 MG TAB PO SCH (09:43)
[2022-07-30] MEDS: FUROSEMIDE 40 MG TAB PO SCH (09:43)
[2022-07-30] MEDS: THIAMINE 100 MG TAB PO SCH (09:43)
[2022-07-30] MEDS: PIPERACILLIN-TAZOBACTAM 3.375 GM in SODIUM CHLORIDE 0.9% 100 ML IVPB SCH ×3 (09:48→23:12)
--- NOTE | 2022-07-30 10:04 | CONS ---
CONSULTATION HISTORY OF PRESENT ILLNESS: Sylvain Duran is a 72-year-old gentleman, who has severe COPD. He generally has his healthcare at the [facility]. He has multiple medical problems in the form of severe COPD, oxygen-requiring; severe pulmonary hypertension; CAD with previous stent of LAD; and chronic persistent atrial fibrillation. He also had a previous aortic valve replacement, and there is a limited dissection of the descending thoracic aorta, which has been chronic, but stable. He came into the hospital mainly with increasing shortness of breath and also had some cough and had some red-tinged blood in the sputum. His fever was up. He now has what seems to be multilobar pneumonia in addition to exacerbation of COPD. His troponin has gone up mildly to 0.18. I was asked to see him regarding a troponin elevation. The patient at the time of my evaluation is resting comfortably. His BNP is 2930. His procalcitonin is abnormal. Chest x-ray suggests pneumonia. He is negative for influenza or COVID infection. His breathing has improved since supervisor lens generating, Dr. Ramey optimized his management yesterday. His troponin elevation does not suggest a primary myocardial injury. I will obtain additional troponins on him. We will also obtain echocardiogram to assess LV function. He is already on Eliquis; and therefore, I will discontinue his aspirin. Echocardiogram from May 19, revealed ejection fraction of 50% to 55% range with severe right ventricular dilatation, severe pulmonary hypertension, right-sided pressures of more than 55 mmHg with biatrial enlargement. He also has a stable- appearing aortic valve bioprosthesis with a gradient of about 10 mmHg. PAST MEDICAL HISTORY: 1. Oxygen-requiring COPD. 2. History of pneumonia. 3. Aortic valve replacement. 4. History of descending thoracic aortic dissection, stable. 5. History of degenerative joint disease. 6. Severe pulmonary hypertension. PHYSICAL EXAMINATION: VITAL SIGNS: Blood pressure is 128/70. Pulse rate about 70, irregular. HEENT: Unremarkable. Fundus was not examined by me. NECK: Supple. There is JVD of 2 cm. No carotid bruit. HEART: Reveals S1 and S2 with ejection systolic murmur. LUNGS: Reveal bilateral scattered rhonchi. ABDOMEN: Soft and nontender. EXTREMITIES: Lower extremities reveal diminished pulses. CENTRAL NERVOUS SYSTEM: Normal. IMAGING STUDIES: EKG revealed atrial fibrillation with controlled ventricular rate, nonspecific ST-T changes. Chest x-ray suggests pneumonia. IMPRESSION: 1. Pneumonia with respiratory failure. 2. Exacerbation of chronic obstructive pulmonary disease. 3. Probable mild congestive heart failure. 4. History of previous aortic valve replacement. 5. Chronic atrial fibrillation. 6. Troponin elevation, not suggestive of a primary myocardial injury. RECOMMENDATIONS: I am recommending that we will obtain an echocardiogram. Discontinue aspirin. Check additional troponin. Continue further management from pulmonary standpoint. No intervention from a cardiac standpoint is advised. Thank you very much for the consult. MMODL / IJN: [id number] /
[2022-07-30] MEDS: SILDENAFIL 20 MG TAB PO SCH ×3 (12:23→20:13)
[2022-07-30] MEDS: VANCOMYCIN 1,500 MG in SODIUM CHLORIDE 0.9% 500 ML 500 ML IVPB SCH ×2 (12:23→21:20)
--- NOTE | 2022-07-30 12:27 | CA ---
Transthoracic Echo Report Name: Sylvain Duran Age: 72 Gender: M : 1950 Exam Date: 07/30/2022 08:07 Exam Location: [place] [facility] Ht (in): 69 Wt (lb): 195 Ordering Physician: Miriam Reinoso MD ([id number]) Attending/Referring Phys: Medical Engineer Paz Buckley RDCS Procedure CPT: Indications: elevated trop Cardiac Hx: Technical Quality: Contrast 1: Total Dose (mL): Contrast 2: Total Dose (mL): MEASUREMENTS (Male / Female) Normal Values 2D ECHO LV Diastolic Diameter PLAX 5.5 cm 4.2 - 5.9 / 3.9 - 5.3 cm LV Systolic Diameter PLAX 4.2 cm IVS Diastolic Thickness 1.3 cm 0.6 - 1.0 / 0.6 - 0.9 cm LVPW Diastolic Thickness 1.3 cm 0.6 - 1.0 / 0.6 - 0.9 cm LV Relative Wall Thickness 0.5 RV Internal Dim ED PLAX 3.9 cm LA Systolic Diameter LX 5.5 cm 3.0 - 4.0 / 2.7 - 3.8 cm LA Volume 162.0 cm??? 18 - 58 / 22 - 52 cm??? M-MODE Aortic Root Diameter MM 3.3 cm LA Systolic Diameter MM 4.8 cm LA Ao Ratio MM 1.4 MV E Point Septal Separation 1.0 cm AV Cusp Separation MM 1.4 cm DOPPLER AV Peak Velocity 213.8 cm/s AV Peak Gradient 18.3 mmHg AV Mean Velocity 140.1 cm/s AV Mean Gradient 9.0 mmHg AV Velocity Time Integral 42.1 cm LVOT Peak Velocity 94.7 cm/s LVOT Peak Gradient 3.6 mmHg TR Peak Velocity 320.8 cm/s TR Peak Gradient 41.2 mmHg Right Ventricular Systolic Press 46.2 mmHg FINDINGS Left Ventricle Mild LVH. Left ventricular cavity size normal. Left ventricular ejection fraction is estimated at 45-50 %. Inferoseptal and basal inferior wall hypokinesis Right Ventricle Normal right ventricular size and function. Moderate pulmonary hypertension. Right ventricular systolic pressure estimated at 46 mm hg. Right Atrium Normal right atrial size. Left Atrium Severely increased left atrial diameter. Severely increased left atrial volume. Moderately increased left atrial area. Mitral Valve Mitral valve thickened. Mild mitral regurgitation. Aortic Valve Mild aortic stenosis with a peak gradient of 19 mmHg and a mean gradient of 9 mmHg. Tricuspid Valve Structurally normal tricuspid valve. Mild tricuspid regurgitation. Pulmonic Valve Structurally normal pulmonic valve. Pericardium Normal pericardium. Aorta Normal size aortic root and proximal ascending aorta. CONCLUSIONS 1. Normal ventricle size with mild impairment in the systolic function and segmental wall motion abnormality 2. Mild mitral and tricuspid regurgitation 3. Mild to moderate pulmonary hypertension 4. Mild aortic stenosis Previewed by: Dr. Jemima Flores MD (Electronically Signed) Final Date: 30 July 2022 12:26
--- NOTE | 2022-07-30 12:29 | P.PN ---
Subjective Progress Note Date: 07/30/22 Principal diagnosis: sob Patient states he feels about the same compared to yesterday. He continues shortness of breath as well as hemoptysis. Denies fevers or chills. No nausea or vomiting. Objective - Vital Signs Vital signs: Vital Signs Temp 97.8 F 07/30/22 09:38 Pulse 88 07/30/22 11:32 Resp 18 07/30/22 09:38 BP 116/50 07/30/22 09:38 Pulse Ox 96 07/30/22 09:38 FiO2 Intake & Output 07/29/22 07/30/22 07/30/22 18:59 06:59 18:59 Output Total 100 Balance -100 Weight 79.379 kg 88.7 kg Output: Urine 100 Other: # Bowel Movements 1 - Exam Constitutional: No acute distress, conversant, pleasant Eyes:Anicteric sclerae, moist conjunctiva, no lid-lag, PERRLA, ENMT: Oropharynx clear, no erythema, exudates Neck: Supple, FROM, no masses, or JVD, No carotid bruits, No thyromegaly Lungs: Bilateral wheezes, Clear to percussion, Normal respiratory effort, no accessory muscle use Cardiovascular: Heart regular in rate and rhythm, No murmurs, gallops, or rubs, No peripheral edema Abdominal: Soft, Nontender, no guarding, rebound or rigidity, Normoactive bowel sounds, No hepatomegaly, No splenomegaly, No palpable mass Skin: Normal temperature, tone, texture, turgor, no induration, No subcutaneous nodules, No rash, lesions, No ulcers Extremities: No digital cyanosis, No clubbing, Pedal pulses intact and symmetrical, Radial pulses intact and symmetrical, No calf tenderness Psychiatric: Alert and oriented to person, place and time, appropriate affect, intact judgement Neuro: Muscles Strength 5/5 in all 4 extremities, Sensation to light touch grossly present throughout, Cranial nerves II-XII grossly intact, no focal sensory deficits - Labs CBC & Chem 7: 07/30/22 06:59 07/30/22 06:59 Labs: Abnormal Lab Results - Last 24 Hours (Table) 07/29/22 07/29/22 07/29/22 Range/Units 14:23 14:23 14:23 RBC 3.29 L (4.30-5.90) m/uL Hgb 9.3 L D (13.0-17.5) gm/dL Hct 29.5 L (39.0-53.0) % MCHC (31.0-37.0) g/dL RDW 17.1 H (11.5-15.5) % Plt Count 110 L (150-450) k/uL Lymphocytes # (1.0-4.8) k/uL APTT 36.9 H (22.0-30.0) sec Carbon Dioxide 33 H (22-30) mmol/L BUN 22 H (9-20) mg/dL Glucose 102 H (74-99) mg/dL Calcium 8.2 L (8.4-10.2) mg/dL Alkaline Phosphatase 130 H (38-126) U/L Troponin I (0.000-0.034) ng/mL Procalcitonin (0.02-0.09) ng/mL 07/29/22 07/29/22 07/30/22 Range/Units 14:23 14:23 06:59 RBC 3.60 L (4.30-5.90) m/uL Hgb 10.1 L (13.0-17.5) gm/dL Hct 33.1 L (39.0-53.0) % MCHC 30.5 L (31.0-37.0) g/dL RDW 17.0 H (11.5-15.5) % Plt Count 125 L (150-450) k/uL Lymphocytes # 0.4 L (1.0-4.8) k/uL APTT (22.0-30.0) sec Carbon Dioxide (22-30) mmol/L BUN (9-20) mg/dL Glucose (74-99) mg/dL Calcium (8.4-10.2) mg/dL Alkaline Phosphatase (38-126) U/L Troponin I 0.189 H* (0.000-0.034) ng/mL Procalcitonin 1.34 H (0.02-0.09) ng/mL 07/30/22 07/30/22 Range/Units 06:59 06:59 RBC (4.30-5.90) m/uL Hgb (13.0-17.5) gm/dL Hct (39.0-53.0) % MCHC (31.0-37.0) g/dL RDW (11.5-15.5) % Plt Count (150-450) k/uL Lymphocytes # (1.0-4.8) k/uL APTT (22.0-30.0) sec Carbon Dioxide 33 H (22-30) mmol/L BUN (9-20) mg/dL Glucose 153 H (74-99) mg/dL Calcium 8.3 L (8.4-10.2) mg/dL Alkaline Phosphatase (38-126) U/L Troponin I 0.081 H* (0.000-0.034) ng/mL Procalcitonin (0.02-0.09) ng/mL Microbiology - Last 24 Hours (Table) 07/30/22 03:00 Nasal Screen MRSA/MSSA - Preliminary Nasal Swab 07/29/22 16:43 Sputum Culture - Preliminary Sputum Assessment and Plan Plan: Acute on chronic hypoxic respiratory failure Hemoptysis Health care associated pneumonia Acute COPD exacerbation Possible aspiration pneumonia Sputum cx and MRSA nasal screen pending Procal 1.34. Continue abx. Zosyn and vancomycin, steroids and bronchodilators Oxygen to keep sats above 92%. Pulm following Chronic congestive heart failure Stable Chronic atrial Fibrillation, Coronary Artery Disease (CAD), GERD/Reflux, GI Bleed, Hyperlipidemia, Hypertension, Stable dissection of the descending aorta, Pulmonary hypertension, Prostate cancer with prostatectomy, Macular degeneration L eye, left arm fracture, Liver cirrhosis related to history of alcoholism, All stable resume meds Anticipated discharge back home in 1-2 days
--- NOTE | 2022-07-30 14:55 | P.PN ---
Subjective Progress Note Date: 07/30/22 This a very pleasant 72-year-old male patient who follows with the [facility] for his primary care needs. He has a history of multiple medical problems including digestive heart failure, severe COPD, severe pulmonary hypertension, coronary artery disease, with a previous stent to the LAD, atrial fibrillation, previous aortic valve replacement, hyperlipidemia, and previous heavy tobacco use. The patient is seen today in the emergency room after coming in this morning with a 2-3 day history of increasing shortness of breath, cough or congestion. He had choked on food earlier in the week. He is having some right red blood in his sputum. He did have a fever of 101.3, 99.9 at home according to his son who is present. He does have oxygen dependent chronic obstructive pulmonary disease and is usually on oxygen at 2 L. His O2 saturations were noted to be in the mid 80s and subsequently recovered in the 90s. He is currently on 4 L/m per nasal cannula. Current temperature 99.6. Chest x-ray revealing a left lower lobe consolidation and some mild nonspecific infiltrate changes in the right lung base. White count 8.0. Hemoglobin 9.3. Platelet count 110,000. Sodium 141 potassium 4.0. BUN 22. Creatinine 1.11. Glucose 102. Troponin 0.189. ProBNP 2930. Influenza screen negative. RSV screen negative. COVID-19 screen negative. He's been initiated and DuoNeb inhalations, Symbicort, IV Solu- Medrol. Antibiotics in the form of vancomycin and Zosyn. He is anticoagulated with Eliquis. The patient is seen today 07/30/2022 in follow-up on the selective care unit. He is currently sitting up in bed. Awake and alert in no acute distress. Maintaining good O2 saturations in the mid 90s on 2 L/m per nasal cannula. He's been initiated on vancomycin and Zosyn. Sputum cultures pending. Pro- calcitonin was 1.34. Chest x-ray reveals similar patchy left basilar airspace disease with coarsened interstitial markings concerning for pneumonia. Small left pleural effusion. Echocardiogram revealed mildly impaired left ventricular systolic function with ejection fraction 45-50%. Mild to moderate pulmonary hypertension. Mild aortic stenosis. White count 7.2. Hemoglobin 10.1. Plat elets 125. Sodium 143. Potassium 4.3. BUN 19. Creatinine 0.85. Objective - Vital Signs Vital signs: Vital Signs Temp 97.8 F 07/30/22 09:38 Pulse 85 07/30/22 12:26 Resp 18 07/30/22 12:26 BP 123/69 07/30/22 12:26 Pulse Ox 95 07/30/22 12:26 FiO2 Intake & Output 07/29/22 07/30/22 07/30/22 18:59 06:59 18:59 Intake Total 240 Output Total 100 Balance 140 Weight 79.379 kg 88.7 kg Intake: Oral 240 Output: Urine 100 Other: # Bowel Movements 1 - Exam GENERAL EXAM: Alert, pleasant, 72-year-old male, on 2 L nasal cannula, fairly comfortable in no apparent distress. HEAD: Normocephalic. EYES: Normal reaction of pupils, equal size. NOSE: Clear with pink turbinates. THROAT: No erythema or exudates. NECK: No masses, no JVD. CHEST: No chest wall deformity. LUNGS: Equal air entry with bilateral scattered rhonchi, end expiratory wheeze. CVS: S1 and S2 normal with no audible murmur, regular rhythm. ABDOMEN: No hepatosplenomegaly, normal bowel sounds, no guarding or rigidity. SPINE: No scoliosis or deformity SKIN: No rashes CENTRAL NERVOUS SYSTEM: No focal deficits, tone is normal in all 4 extremities. EXTREMITIES: There is no peripheral edema. No clubbing, no cyanosis. Peripheral pulses are intact. - Labs CBC & Chem 7: 07/30/22 06:59 07/30/22 06:59 Labs: Abnormal Lab Results - Last 24 Hours (Table) 07/29/22 07/29/22 07/29/22 Range/Units 14:23 14:23 14:23 RBC (4.30-5.90) m/uL Hgb (13.0-17.5) gm/dL Hct (39.0-53.0) % MCHC (31.0-37.0) g/dL RDW (11.5-15.5) % Plt Count (150-450) k/uL Lymphocytes # (1.0-4.8) k/uL Carbon Dioxide 33 H (22-30) mmol/L BUN 22 H (9-20) mg/dL Glucose 102 H (74-99) mg/dL Calcium 8.2 L (8.4-10.2) mg/dL Alkaline Phosphatase 130 H (38-126) U/L Troponin I 0.189 H* (0.000-0.034) ng/mL Procalcitonin 1.34 H (0.02-0.09) ng/mL 07/30/22 07/30/22 07/30/22 Range/Units 06:59 06:59 06:59 RBC 3.60 L (4.30-5.90) m/uL Hgb 10.1 L (13.0-17.5) gm/dL Hct 33.1 L (39.0-53.0) % MCHC 30.5 L (31.0-37.0) g/dL RDW 17.0 H (11.5-15.5) % Plt Count 125 L (150-450) k/uL Lymphocytes # 0.4 L (1.0-4.8) k/uL Carbon Dioxide 33 H (22-30) mmol/L BUN (9-20) mg/dL Glucose 153 H (74-99) mg/dL Calcium 8.3 L (8.4-10.2) mg/dL Alkaline Phosphatase (38-126) U/L Troponin I 0.081 H* (0.000-0.034) ng/mL Procalcitonin (0.02-0.09) ng/mL Microbiology - Last 24 Hours (Table) 07/30/22 03:00 Nasal Screen MRSA/MSSA - Preliminary Nasal Swab 07/29/22 16:43 Sputum Culture - Preliminary Sputum Assessment and Plan Assessment: Acute on chronic hypoxemic respiratory failure secondary to an acute multilobar pneumonia more so in the left lung base Hemoptysis secondary to above Troponin leak Moderate to severe pulmonary hypertension History of aortic valve replacement with bioprosthetic valve History of atrial fibrillation, anticoagulated with Eliquis History of stable dissection of the descending aorta Coronary disease with previous bypass surgery, previous stent placement Chronic obstructive pulmonary disease, oxygen dependent Chronic tobacco dependence History of liver cirrhosis secondary to alcoholism History of prostate cancer status post prostatectomy History of right lower lobe DVT History of macular degeneration Hyperlipidemia Hypertension Plan: The patient was seen and evaluated Chest x-ray, labs and medications reviewed Continue Zosyn Continue Pulmicort and Perforomist Continue IV Solu-Medrol Sputum culture pending Titrate the FiO2 as tolerated Again, educated regarding the importance of complete smoking cessation We will continue to follow I have personally seen and examined the patient, performed the documentation and the assessment and plan as written. Number of minutes spent on the visit: 10.
[2022-07-30 17:10] LABS: Glucose,Whole Blood 201 mg/dL (70-110)
[2022-07-30 20:08] LABS: Glucose,Whole Blood 194 mg/dL (70-110)
[2022-07-30] MEDS: ATORVASTATIN 20 MG TAB PO SCH (20:13)
[2022-07-30] MEDS: MIRTAZAPINE 15 MG TAB PO SCH (20:13)
[2022-07-31 06:06] LABS: Glucose,Whole Blood 166 mg/dL (70-110)
[2022-07-31] MEDS: LEVOTHYROXINE 50 MCG TAB PO SCH (06:15)
[2022-07-31] MEDS: methylPREDNISolone SOD SUCCI 40 MG/ML 1 ML VIAL IV SCH ×4 (06:15→23:05)
[2022-07-31] MEDS: PANTOPRAZOLE 40 MG TABLET PO SCH (06:15)
--- NOTE | 2022-07-31 06:57 | P.PN ---
Subjective Progress Note Date: 07/31/22 Principal diagnosis: Shortness of breath The patient is a pleasant 72-year-old gentleman with extensive cardiovascular history consistent of CAD with prior stenting of the LAD, valvular heart disease status post aortic valve replacement, as well as permanent atrial fibrillation, and COPD, and hypertension and dyslipidemia and also COPD. He was admitted to the hospital with increasing shortness of breath and he was diagnosed with pneumonia. He underwent an echo which revealed normal biventricular systolic function with what it seems to be normally functioning aortic valve prosthesis. July [id number] The patient was seen and evaluated this morning. He is feeling overall better. He stated that the shortness of breath has improved. No symptoms of chest pain or chest discomfort. I did review the echo with him and reassured him on the results. He is on oral anticoagulation for atrial fibrillation. Objective - Vital Signs Vital signs: Vital Signs Temp 98 F 07/31/22 03:04 Pulse 91 07/31/22 03:04 Resp 18 07/31/22 03:04 BP 131/60 07/31/22 03:04 Pulse Ox 99 07/31/22 03:04 FiO2 Intake & Output 07/30/22 07/30/22 07/31/22 06:59 18:59 06:59 Intake Total 460 Output Total 100 Balance 360 Weight 88.7 kg 90.3 kg Intake: Intake, IV Titration 100 Amount Piperacillin-Tazobactam 3 100 .375 gm In Sodium Chloride 0.9% 100 ml @ 200 mls/hr IVPB ONCE STA Rx#:[id number] Oral 360 Output: Urine 100 Other: # Voids 3 # Bowel Movements 1 - Constitutional General appearance: Present: no acute distress - Respiratory Respiratory: bilateral: diminished - Cardiovascular Rhythm: irregularly irregular Heart sounds: normal: S1, S2 Abnormal Heart Sounds: Present: systolic murmur - Labs CBC & Chem 7: 07/30/22 06:59 07/30/22 06:59 Labs: Abnormal Lab Results - Last 24 Hours (Table) 07/30/22 07/30/22 07/30/22 Range/Units 06:59 06:59 06:59 RBC 3.60 L (4.30-5.90) m/uL Hgb 10.1 L (13.0-17.5) gm/dL Hct 33.1 L (39.0-53.0) % MCHC 30.5 L (31.0-37.0) g/dL RDW 17.0 H (11.5-15.5) % Plt Count 125 L (150-450) k/uL Lymphocytes # 0.4 L (1.0-4.8) k/uL Carbon Dioxide 33 H (22-30) mmol/L Glucose 153 H (74-99) mg/dL POC Glucose (mg/dL) (70-110) mg/dL Calcium 8.3 L (8.4-10.2) mg/dL Troponin I 0.081 H* (0.000-0.034) ng/mL 07/30/22 07/30/22 07/31/22 Range/Units 16:57 20:07 06:05 RBC (4.30-5.90) m/uL Hgb (13.0-17.5) gm/dL Hct (39.0-53.0) % MCHC (31.0-37.0) g/dL RDW (11.5-15.5) % Plt Count (150-450) k/uL Lymphocytes # (1.0-4.8) k/uL Carbon Dioxide (22-30) mmol/L Glucose (74-99) mg/dL POC Glucose (mg/dL) 201 H 194 H 166 H (70-110) mg/dL Calcium (8.4-10.2) mg/dL Troponin I (0.000-0.034) ng/mL Microbiology - Last 24 Hours (Table) 07/29/22 14:23 Blood Culture - Preliminary Blood No Growth after 24 hours 07/29/22 14:23 Blood Culture - Preliminary Blood No Growth after 24 hours 07/29/22 16:43 Gram Stain - Preliminary Sputum Sputum Culture - Preliminary 07/30/22 03:00 Nasal Screen MRSA/MSSA - Preliminary Nasal Swab Assessment and Plan Assessment: Assessment CAD and status post a stenting of the LAD Permanent atrial fibrillation Valvular heart disease as described above status post aortic valve replacement COPD Multiple comorbid conditions Plan Continue the current medical regimen The echo was reviewed and showed preserved LV function with moderate pulmonary hypertension Continue oral anticoagulation Follow-up with the patient
[2022-07-31] MEDS: FORMOTEROL FUMARATE 20 MCG/2 ML NEBU INHALATION SCH ×2 (08:47→19:32)
[2022-07-31] MEDS: IPRATROPIUM-ALBUTEROL 3 ML NEB INHALATION SCH ×4 (08:47→19:32)
[2022-07-31] MEDS: BUDESONIDE 1 MG/2 ML NEBU INHALATION SCH ×2 (08:47→19:32)
[2022-07-31] MEDS: SILDENAFIL 20 MG TAB PO SCH ×3 (09:15→19:59)
[2022-07-31] MEDS: APIXABAN 5 MG TAB PO SCH ×2 (09:15→19:59)
[2022-07-31] MEDS: ESCITALOPRAM 20 MG TAB PO SCH (09:15)
[2022-07-31] MEDS: FUROSEMIDE 40 MG TAB PO SCH (09:15)
[2022-07-31] MEDS: METOPROLOL TARTRATE 12.5 MG TAB PO SCH ×2 (09:15→19:59)
[2022-07-31] MEDS: THIAMINE 100 MG TAB PO SCH (09:15)
[2022-07-31] MEDS: PIPERACILLIN-TAZOBACTAM 3.375 GM in SODIUM CHLORIDE 0.9% 100 ML IVPB SCH ×3 (09:16→23:05)
[2022-07-31] MEDS: VANCOMYCIN 1,500 MG in SODIUM CHLORIDE 0.9% 500 ML 500 ML IVPB SCH (10:52)
[2022-07-31 11:44] LABS: Glucose,Whole Blood 178 mg/dL (70-110)
--- NOTE | 2022-07-31 12:24 | P.PN ---
Subjective Progress Note Date: 07/31/22 Principal diagnosis: sob Patient continues to have coughing with hemoptysis, he is not a very reliable historian due to dementia. No fevers or chills. No pain. He states that he is better but wasn't sure. He is currently requiring 4 L of oxygen, his baseline is around 2 L. Objective - Vital Signs Vital signs: Vital Signs Temp 98.0 F 07/31/22 09:14 Pulse 88 07/31/22 12:12 Resp 18 07/31/22 09:14 BP 100/59 07/31/22 09:14 Pulse Ox 95 07/31/22 09:14 FiO2 Intake & Output 07/30/22 07/31/22 07/31/22 18:59 06:59 18:59 Intake Total 460 Output Total 100 Balance 360 Weight 90.3 kg Intake: Intake, IV Titration 100 Amount Piperacillin-Tazobactam 3 100 .375 gm In Sodium Chloride 0.9% 100 ml @ 200 mls/hr IVPB ONCE STA Rx#:[id number] Oral 360 Output: Urine 100 Other: Voiding Method Toilet # Voids 3 1 # Bowel Movements 1 - Exam Constitutional: No acute distress, conversant, pleasant Eyes:Anicteric sclerae, moist conjunctiva, no lid-lag, PERRLA, ENMT: Oropharynx clear, no erythema, exudates Neck: Supple, FROM, no masses, or JVD, No carotid bruits, No thyromegaly Lungs: Bilateral wheezes, Clear to percussion, Normal respiratory effort, no accessory muscle use Cardiovascular: Heart regular in rate and rhythm, No murmurs, gallops, or rubs, No peripheral edema Abdominal: Soft, Nontender, no guarding, rebound or rigidity, Normoactive bowel sounds, No hepatomegaly, No splenomegaly, No palpable mass Skin: Normal temperature, tone, texture, turgor, no induration, No subcutaneous nodules, No rash, lesions, No ulcers Extremities: No digital cyanosis, No clubbing, Pedal pulses intact and symmetrical, Radial pulses intact and symmetrical, No calf tenderness Psychiatric: Alert and oriented to person, place and time, appropriate affect, intact judgement Neuro: Muscles Strength 5/5 in all 4 extremities, Sensation to light touch grossly present throughout, Cranial nerves II-XII grossly intact, no focal sensory deficits - Labs CBC & Chem 7: 12/30/22 06:59 07/31/22 07:59 Labs: Abnormal Lab Results - Last 24 Hours (Table) 07/30/22 07/30/22 07/31/22 Range/Units 16:57 20:07 06:05 POC Glucose (mg/dL) 201 H 194 H 166 H (70-110) mg/dL 07/31/22 Range/Units 11:42 POC Glucose (mg/dL) 178 H (70-110) mg/dL Microbiology - Last 24 Hours (Table) 07/29/22 16:43 Gram Stain - Final Sputum Sputum Culture - Final 07/30/22 03:00 Nasal Screen MRSA/MSSA - Final Nasal Swab 07/29/22 14:23 Blood Culture - Preliminary Blood No Growth after 24 hours 07/29/22 14:23 Blood Culture - Preliminary Blood No Growth after 24 hours Assessment and Plan Plan: Acute on chronic hypoxic respiratory failure Hemoptysis Health care associated pneumonia Acute COPD exacerbation Possible aspiration pneumonia Sputum cx and MRSA nasal screen negative, discontinue vancomycin Blood cultures no growth to date Procal 1.34. Continue zosyn, steroids and bronchodilators Oxygen to keep sats above 92%. Pulm following Chronic congestive heart failure Stable Chronic atrial Fibrillation, Coronary Artery Disease (CAD), GERD/Reflux, GI Bleed, Hyperlipidemia, Hypertension, Stable dissection of the descending aorta, Pulmonary hypertension, Prostate cancer with prostatectomy, Macular degeneration L eye, left arm fracture, Liver cirrhosis related to history of alcoholism, All stable resume meds Anticipated discharge back home in 1-2 days
--- NOTE | 2022-07-31 13:16 | P.PN ---
Subjective Progress Note Date: 07/31/22 Principal diagnosis: Shortness of breath. This a very pleasant 72-year-old male patient who follows with the [facility] for his primary care needs. He has a history of multiple medical problems including digestive heart failure, severe COPD, severe pulmonary hypertension, coronary artery disease, with a previous stent to the LAD, atrial fibrillation, previous aortic valve replacement, hyperlipidemia, and previous heavy tobacco use. The patient is seen today in the emergency room after coming in this morning with a 2-3 day history of increasing shortness of breath, cough or congestion. He had choked on food earlier in the week. He is having some right red blood in his sputum. He did have a fever of 101.3, 99.9 at home according to his son who is present. He does have oxygen dependent chronic obstructive pulmonary disease and is usually on oxygen at 2 L. His O2 saturations were noted to be in the mid 80s and subsequently recovered in the 90s. He is currently on 4 L/m per nasal cannula. Current temperature 99.6. Chest x-ray revealing a left lower lobe consolidation and some mild nonspecific infiltrate changes in the right lung base. White count 8.0. Hemoglobin 9.3. Platelet count 110,000. Sodium 141 potassium 4.0. BUN 22. Creatinine 1.11. Glucose 102. Troponin 0.189. ProBNP 2930. Influenza screen negative. RSV screen negative. COVID-19 screen negative. He's been initiated and DuoNeb inhalations, Symbicort, IV Solu- Medrol. Antibiotics in the form of vancomycin and Zosyn. He is anticoagulated with Eliquis. The patient is seen today 07/30/2022 in follow-up on the selective care unit. He is currently sitting up in bed. Awake and alert in no acute distress. Maintaining good O2 saturations in the mid 90s on 2 L/m per nasal cannula. He's been initiated on vancomycin and Zosyn. Sputum cultures pending. Pro- calcitonin was 1.34. Chest x-ray reveals similar patchy left basilar airspace disease with coarsened interstitial markings concerning for pneumonia. Small left pleural effusion. Echocardiogram revealed mildly impaired left ventricular systolic function with ejection fraction 45-50%. Mild to moderate pulmonary hypertension. Mild aortic stenosis. White count 7.2. Hemoglobin 10.1. Platelets 125. Sodium 143. Potassium 4.3. BUN 19. Creatinine 0.85. Progress note dated 07/31/2022. The patient is seen today in room 380. He sitting at the side of the bed. He remains on oxygen at 4 L. He is receiving vancomycin and Zosyn. We have ordered a chest x-ray for the morning. Clinically, he feels better and is doing better. He looks much less short of breath. Labs today include a creatinine of 1.03. Glucose is 178. Culture data is thus far negative. Objective - Vital Signs Vital signs: Vital Signs Temp 98.0 F 07/31/22 09:14 Pulse 80 07/31/22 12:23 Resp 18 07/31/22 09:14 BP 100/59 07/31/22 09:14 Pulse Ox 95 07/31/22 09:14 FiO2 Intake & Output 07/30/22 07/31/22 07/31/22 18:59 06:59 18:59 Intake Total 460 Output Total 100 Balance 360 Weight 90.3 kg Intake: Intake, IV Titration 100 Amount Piperacillin-Tazobactam 3 100 .375 gm In Sodium Chloride 0.9% 100 ml @ 200 mls/hr IVPB ONCE STA Rx#:[id number] Oral 360 Output: Urine 100 Other: Voiding Method Toilet # Voids 3 1 # Bowel Movements 1 - Exam No acute distress, oriented 3. No conversational dyspnea or use of accessory muscles. Currently on 4 L of oxygen. HEENT examination is grossly unremarkable. Neck supple. Full range of motion. No adenopathy thyromegaly or neck vein distention. Cardiovascular examination reveals regular rhythm rate. S1-S2 normal. No S3 or S4. No discernible murmur noted. Heart rate 80 bpm. Heart sounds are distant. Lungs reveal bilateral scattered rhonchi and expiratory wheezes. Breath sounds are equal bilaterally but diminished throughout. No crackles. Saturations are 95% on 4 L. Abdomen soft bowel sounds are heard. No masses or tenderness. Extremities are intact. No cyanosis clubbing or edema. Skin is without rash or lesion. Neurologic examination is brief but nonfocal. - Labs CBC & Chem 7: 07/30/22 06:59 07/31/22 07:59 Labs: Abnormal Lab Results - Last 24 Hours (Table) 07/30/22 07/30/22 07/31/22 Range/Units 16:57 20:07 06:05 POC Glucose (mg/dL) 201 H 194 H 166 H (70-110) mg/dL 07/31/22 Range/Units 11:42 POC Glucose (mg/dL) 178 H (70-110) mg/dL Microbiology - Last 24 Hours (Table) 07/29/22 16:43 Gram Stain - Final Sputum Sputum Culture - Final 07/30/22 03:00 Nasal Screen MRSA/MSSA - Final Nasal Swab 07/29/22 14:23 Blood Culture - Preliminary Blood No Growth after 24 hours 07/29/22 14:23 Blood Culture - Preliminary Blood No Growth after 24 hours Assessment and Plan Assessment: Acute on chronic hypoxemic respiratory failure secondary to an acute multilobar pneumonia, more so in the left lung base. Hemoptysis, secondary to above. Troponin leak. Moderate to severe pulmonary hypertension. History of aortic valve replacement with bioprosthetic valve. History of atrial fibrillation, anticoagulated with Eliquis. History of stable dissection of the descending aorta. Coronary disease with previous bypass surgery, and previous stent placement. Chronic obstructive pulmonary disease, oxygen dependent. Chronic tobacco dependence. History of liver cirrhosis secondary to alcoholism . History of prostate cancer, S/P prostatectomy. History of right lower extremity DVT. History of macular degeneration. Hyperlipidemia. Hypertension. Plan: Plan dated 07/31/2022. The patient is seen in room 380. He's on 4 L. He sitting at the end of the bed. The patient does not appear to be particularly short of breath. We continued him on antibiotics breathing treatments, and corticosteroids. Prognosis is guarded. Additional recommendations and suggestions are forthcoming. We will continue to follow along and make recommendations along the way. Time with Patient: Less than 30
[2022-07-31 16:28] LABS: Glucose,Whole Blood 196 mg/dL (70-110)
[2022-07-31] MEDS: ATORVASTATIN 20 MG TAB PO SCH (19:59)
[2022-07-31] MEDS: MIRTAZAPINE 15 MG TAB PO SCH (19:59)
[2022-07-31 20:22] LABS: Glucose,Whole Blood 221 mg/dL (70-110)
[2022-08-01] MEDS: methylPREDNISolone SOD SUCCI 40 MG/ML 1 ML VIAL IV SCH ×3 (06:07→17:00)
[2022-08-01] MEDS: LEVOTHYROXINE 50 MCG TAB PO SCH (06:07)
[2022-08-01] MEDS: PANTOPRAZOLE 40 MG TABLET PO SCH (06:07)
[2022-08-01 06:14] LABS: Glucose,Whole Blood 172 mg/dL (70-110)
--- NOTE | 2022-08-01 07:50 | XR ---
EXAMINATION TYPE: XR chest 1V portable DATE OF EXAM: 08/01/2022 5:41 AM COMPARISON: Chest radiograph from two days prior. TECHNIQUE: XR chest 1V portable Portable AP radiograph of the chest. CLINICAL INDICATION:Male, 72 years old with history of Pneumonia, CHF; FINDINGS: Lungs/Pleura: Left lung base airspace opacities appear more prominent. There is no evidence of pleura l effusion, or pneumothorax. Hepatic surgical clips. Pulmonary vascularity: Pulmonary vascular congestion. Heart/mediastinum: Cardiomediastinal silhouette is enlarged and stable. Post valve repair changes. L eft atrial appendage occlusion device is present. Musculoskeletal: No acute osseous pathology. Other findings: None IMPRESSION: Lung base airspace opacities correlate for developing pneumonia. Similar Cardiomegaly and mild pulmonary vascular congestion.
[2022-08-01] MEDS: METOPROLOL TARTRATE 12.5 MG TAB PO SCH ×2 (08:28→20:43)
[2022-08-01] MEDS: SILDENAFIL 20 MG TAB PO SCH ×3 (08:28→20:44)
[2022-08-01] MEDS: APIXABAN 5 MG TAB PO SCH ×2 (08:28→20:43)
[2022-08-01] MEDS: ESCITALOPRAM 20 MG TAB PO SCH (08:28)
[2022-08-01] MEDS: THIAMINE 100 MG TAB PO SCH (08:28)
[2022-08-01] MEDS: PIPERACILLIN-TAZOBACTAM 3.375 GM in SODIUM CHLORIDE 0.9% 100 ML IVPB SCH ×2 (08:29→16:58)
[2022-08-01] MEDS: FUROSEMIDE 40 MG TAB PO SCH (08:29)
[2022-08-01] MEDS: IPRATROPIUM-ALBUTEROL 3 ML NEB INHALATION SCH ×4 (08:56→19:01)
[2022-08-01] MEDS: BUDESONIDE 1 MG/2 ML NEBU INHALATION SCH ×2 (08:57→19:01)
[2022-08-01] MEDS: FORMOTEROL FUMARATE 20 MCG/2 ML NEBU INHALATION SCH ×2 (08:57→19:01)
[2022-08-01] MEDS ORDERED: VANCOMYCIN TROUGH DUE 1 EACH MISC MISCELLANE ONE (09:00)
--- NOTE | 2022-08-01 09:29 | P.PN ---
Subjective Progress Note Date: 08/01/22 Principal diagnosis: Shortness of breath The patient is a pleasant 72-year-old gentleman with extensive cardiovascular history consistent of CAD with prior stenting of the LAD, valvular heart disease status post aortic valve replacement, as well as permanent atrial fibrillation, and COPD, and hypertension and dyslipidemia and also COPD. He was admitted to the hospital with increasing shortness of breath and he was diagnosed with pneumonia. He underwent an echo which revealed normal biventricular systolic function with what it seems to be normally functioning aortic valve prosthesis. July 312021 The patient was seen and evaluated this morning. He is feeling overall better. He stated that the shortness of breath has improved. No symptoms of chest pain or chest discomfort. I did review the echo with him and reassured him on the results. He is on oral anticoagulation for atrial fibrillation. August [id number] The patient was seen and evaluated this morning. He remains stable from a cardiovascular standpoint of view. He reports no anginal chest pain or chest discomfort but continues to have shortness of breath. He still on antibiotic for the pneumonia. He continues to be on oral anticoagulation for atrial fibrillation. Objective - Vital Signs Vital signs: Vital Signs Temp 97.9 F 08/01/22 08:27 Pulse 78 08/01/22 09:16 Resp 16 08/01/22 08:27 BP 145/79 08/01/22 08:27 Pulse Ox 97 08/01/22 08:57 FiO2 Intake & Output 07/31/22 08/01/22 08/01/22 18:59 06:59 18:59 Intake Total 120 120 Balance 120 120 Weight 91.5 kg Intake: Oral 120 120 Other: Voiding Method Toilet Toilet # Voids 3 0 - Constitutional General appearance: Present: no acute distress - Respiratory Respiratory: bilateral: diminished - Cardiovascular Heart sounds: normal: S1, S2 Abnormal Heart Sounds: Present: systolic murmur - Labs CBC & Chem 7: 07/30/22 06:59 07/31/22 07:59 Labs: Abnormal Lab Results - Last 24 Hours (Table) 07/31/22 07/31/22 07/31/22 Range/Units 11:42 16:26 20:21 POC Glucose (mg/dL) 178 H 196 H 221 H (70-110) mg/dL 08/01/22 Range/Units 06:14 POC Glucose (mg/dL) 172 H (70-110) mg/dL Microbiology - Last 24 Hours (Table) 07/29/22 14:23 Blood Culture - Preliminary Blood No Growth after 48 hours 07/29/22 14:23 Blood Culture - Preliminary Blood No Growth after 48 hours 07/29/22 16:43 Gram Stain - Final Sputum Sputum Culture - Final 07/30/22 03:00 Nasal Screen MRSA/MSSA - Final Nasal Swab Assessment and Plan Assessment: Assessment CAD and status post a stenting of the LAD Permanent atrial fibrillation Valvular heart disease as described above status post aortic valve replacement COPD Pneumonia Plan Continue the current medical regimen The echo was reviewed and showed preserved LV function with moderate pulmonary hypertension Continue oral anticoagulation Follow-up with the patient
[2022-08-01 12:00] LABS: Glucose,Whole Blood 183 mg/dL (70-110)
--- NOTE | 2022-08-01 12:06 | P.PN ---
Subjective Progress Note Date: 08/01/22 This a very pleasant 72-year-old male patient who follows with the [facility] for his primary care needs. He has a history of multiple medical problems including digestive heart failure, severe COPD, severe pulmonary hypertension, coronary artery disease, with a previous stent to the LAD, atrial fibrillation, previous aortic valve replacement, hyperlipidemia, and previous heavy tobacco use. The patient is seen today in the emergency room after coming in this morning with a 2-3 day history of increasing shortness of breath, cough or congestion. He had choked on food earlier in the week. He is having some right red blood in his sputum. He did have a fever of 101.3, 99.9 at home according to his son who is present. He does have oxygen dependent chronic obstructive pulmonary disease and is usually on oxygen at 2 L. His O2 saturations were noted to be in the mid 80s and subsequently recovered in the 90s. He is currently on 4 L/m per nasal cannula. Current temperature 99.6. Chest x-ray revealing a left lower lobe consolidation and some mild nonspecific infiltrate changes in the right lung base. White count 8.0. Hemoglobin 9.3. Platelet count 110,000. Sodium 141 potassium 4.0. BUN 22. Creatinine 1.11. Glucose 102. Troponin 0.189. ProBNP 2930. Influenza screen negative. RSV screen negative. COVID-19 screen negative. He's been initiated and DuoNeb inhalations, Symbicort, IV Solu- Medrol. Antibiotics in the form of vancomycin and Zosyn. He is anticoagulated with Eliquis. The patient is seen today 07/30/2022 in follow-up on the selective care unit. He is currently sitting up in bed. Awake and alert in no acute distress. Maintaining good O2 saturations in the mid 90s on 2 L/m per nasal cannula. He's been initiated on vancomycin and Zosyn. Sputum cultures pending. Pro- calcitonin was 1.34. Chest x-ray reveals similar patchy left basilar airspace disease with coarsened interstitial markings concerning for pneumonia. Small left pleural effusion. Echocardiogram revealed mildly impaired left ventricular systolic function with ejection fraction 45-50%. Mild to moderate pulmonary hypertension. Mild aortic stenosis. White count 7.2. Hemoglobin 10.1. Plat elets 125. Sodium 143. Potassium 4.3. BUN 19. Creatinine 0.85. The patient is seen today 08/01/2022 in follow-up on the selective care unit. He is awake and alert in no acute distress. Sitting up in bed. He is still quite congested. Still bringing up some blood-tinged sputum. Maintaining O2 saturations in the 90s on 4 L/m per nasal cannula. He is continued on DuoNeb inhalations, Pulmicort and Perforomist inhalations, IV Solu-Medrol. Remains on oral diuretics. Remains on antibiotics in the form of Zosyn. Remains anticoagulated with Eliquis. His chest x-ray continues to show bilateral airspace opacities. Cardiomegaly and mild pulmonary vascular congestion. Blood culture revealed no growth. Sputum cultures revealed no growth. Blood sugar 183. Objective - Vital Signs Vital signs: Vital Signs Temp 97.9 F 08/01/22 08:27 Pulse 80 08/01/22 11:33 Resp 16 08/01/22 08:27 BP 145/79 08/01/22 08:27 Pulse Ox 97 08/01/22 08:57 FiO2 Intake & Output 07/31/22 08/01/22 08/01/22 18:59 06:59 18:59 Intake Total 120 120 Balance 120 120 Weight 91.5 kg Intake: Oral 120 120 Other: Voiding Method Toilet Toilet Toilet # Voids 3 0 - Exam GENERAL EXAM: Alert, pleasant, 72-year-old male, sitting up in bed, on 4 L nasal cannula, fairly comfortable in no apparent distress. HEAD: Normocephalic. EYES: Normal reaction of pupils, equal size. NOSE: Clear with pink turbinates. THROAT: No erythema or exudates. NECK: No masses, no JVD. CHEST: No chest wall deformity. LUNGS: Equal air entry with bilateral scattered rhonchi, end expiratory wheeze. CVS: S1 and S2 normal with no audible murmur, regular rhythm. ABDOMEN: No hepatosplenomegaly, normal bowel sounds, no guarding or rigidity. SPINE: No scoliosis or deformity SKIN: No rashes CENTRAL NERVOUS SYSTEM: No focal deficits, tone is normal in all 4 extremities. EXTREMITIES: There is no peripheral edema. No clubbing, no cyanosis. Peripheral pulses are intact. - Labs CBC & Chem 7: 07/30/22 06:59 07/31/22 07:59 Labs: Abnormal Lab Results - Last 24 Hours (Table) 07/31/22 07/31/22 08/01/22 Range/Units 16:26 20:21 06:14 POC Glucose (mg/dL) 196 H 221 H 172 H (70-110) mg/dL 08/01/22 Range/Units 11:56 POC Glucose (mg/dL) 183 H (70-110) mg/dL Microbiology - Last 24 Hours (Table) 07/29/22 14:23 Blood Culture - Preliminary Blood No Growth after 48 hours 07/29/22 14:23 Blood Culture - Preliminary Blood No Growth after 48 hours 07/29/22 16:43 Gram Stain - Final Sputum Sputum Culture - Final 07/30/22 03:00 Nasal Screen MRSA/MSSA - Final Nasal Swab Assessment and Plan Assessment: Acute on chronic hypoxemic respiratory failure secondary to an acute multilobar pneumonia more so in the left lung base Hemoptysis secondary to above Troponin leak Moderate to severe pulmonary hypertension History of aortic valve replacement with bioprosthetic valve History of atrial fibrillation, anticoagulated with Eliquis History of stable dissection of the descending aorta Coronary disease with previous bypass surgery, previous stent placement Chronic obstructive pulmonary disease, oxygen dependent Chronic tobacco dependence History of liver cirrhosis secondary to alcoholism History of prostate cancer status post prostatectomy History of right lower lobe DVT History of macular degeneration Hyperlipidemia Hypertension Plan: The patient was seen and evaluated Chest x-ray, labs and medications reviewed Continue Zosyn, bronchodilators, diuretics, steroids Titrate the FiO2 as tolerated He has been slow to progress, may require bronchoscopy with BAL We will continue to follow I have personally seen and examined the patient, performed the documentation and the assessment and plan as written. Number of minutes spent on the visit: 10.
--- NOTE | 2022-08-01 15:02 | P.PN ---
Subjective Progress Note Date: 08/01/22 Principal diagnosis: sob Patient continues to have shortness of breath as well as hemoptysis. His symptoms are slow to improve. No fevers or chills. No overnight events. Objective - Vital Signs Vital signs: Vital Signs Temp 97.8 F 08/01/22 12:10 Pulse 78 08/01/22 12:10 Resp 16 08/01/22 14:00 BP 124/64 08/01/22 12:10 Pulse Ox 95 08/01/22 12:10 FiO2 Intake & Output 07/31/22 08/01/22 08/01/22 18:59 06:59 18:59 Intake Total 120 240 Balance 120 240 Weight 91.5 kg Intake: Oral 120 240 Other: Voiding Method Toilet Toilet Toilet # Voids 3 1 - Exam Constitutional: No acute distress, conversant, pleasant Eyes:Anicteric sclerae, moist conjunctiva, no lid-lag, PERRLA, ENMT: Oropharynx clear, no erythema, exudates Neck: Supple, FROM, no masses, or JVD, No carotid bruits, No thyromegaly Lungs: Bilateral wheezes, Clear to percussion, Normal respiratory effort, no accessory muscle use Cardiovascular: Heart regular in rate and rhythm, No murmurs, gallops, or rubs, No peripheral edema Abdominal: Soft, Nontender, no guarding, rebound or rigidity, Normoactive bowel sounds, No hepatomegaly, No splenomegaly, No palpable mass Skin: Normal temperature, tone, texture, turgor, no induration, No subcutaneous nodules, No rash, lesions, No ulcers Extremities: No digital cyanosis, No clubbing, Pedal pulses intact and symmetrical, Radial pulses intact and symmetrical, No calf tenderness Psychiatric: Alert and oriented to person, place and time, appropriate affect, intact judgement Neuro: Muscles Strength 5/5 in all 4 extremities, Sensation to light touch grossly present throughout, Cranial nerves II-XII grossly intact, no focal sensory deficits - Labs CBC & Chem 7: 07/30/22 06:59 07/31/22 07:59 Labs: Abnormal Lab Results - Last 24 Hours (Table) 07/31/22 07/31/22 08/01/22 Range/Units 16:26 20:21 06:14 POC Glucose (mg/dL) 196 H 221 H 172 H (70-110) mg/dL 08/01/22 Range/Units 11:56 POC Glucose (mg/dL) 183 H (70-110) mg/dL Microbiology - Last 24 Hours (Table) 07/29/22 14:23 Blood Culture - Preliminary Blood No Growth after 48 hours 07/29/22 14:23 Blood Culture - Preliminary Blood No Growth after 48 hours Assessment and Plan Plan: Acute on chronic hypoxic respiratory failure Hemoptysis Health care associated pneumonia Acute COPD exacerbation Possible aspiration pneumonia Sputum cx and MRSA nasal screen negative, discontinue vancomycin Blood cultures no growth to date Procal 1.34. Continue zosyn, steroids and bronchodilators Oxygen to keep sats above 92%. Pulm following, considering bronchoscopy with lavage due to slow progress. Chronic congestive heart failure Stable Chronic atrial Fibrillation, Coronary Artery Disease (CAD), GERD/Reflux, GI Bleed, Hyperlipidemia, Hypertension, Stable dissection of the descending aorta, Pulmonary hypertension, Prostate cancer with prostatectomy, Macular degeneration L eye, left arm fracture, Liver cirrhosis related to history of alcoholism, All stable resume meds Anticipated discharge back home in 1-2 days
[2022-08-01 16:35] LABS: Glucose,Whole Blood 240 mg/dL (70-110)
[2022-08-01 20:14] LABS: Glucose,Whole Blood 195 mg/dL (70-110)
[2022-08-01] MEDS: ATORVASTATIN 20 MG TAB PO SCH (20:43)
[2022-08-01] MEDS: MIRTAZAPINE 15 MG TAB PO SCH (20:43)
[2022-08-02] MEDS: methylPREDNISolone SOD SUCCI 40 MG/ML 1 ML VIAL IV SCH ×5 (00:07→23:00)
[2022-08-02] MEDS: PIPERACILLIN-TAZOBACTAM 3.375 GM in SODIUM CHLORIDE 0.9% 100 ML IVPB SCH ×4 (00:07→23:00)
[2022-08-02 06:07] LABS: Glucose,Whole Blood 168 mg/dL (70-110)
[2022-08-02] MEDS: PANTOPRAZOLE 40 MG TABLET PO SCH (06:40)
[2022-08-02] MEDS: LEVOTHYROXINE 50 MCG TAB PO SCH (06:40)
[2022-08-02] MEDS: BUDESONIDE 1 MG/2 ML NEBU INHALATION SCH ×2 (07:45→20:59)
[2022-08-02] MEDS: IPRATROPIUM-ALBUTEROL 3 ML NEB INHALATION SCH ×4 (07:45→20:59)
[2022-08-02] MEDS: FORMOTEROL FUMARATE 20 MCG/2 ML NEBU INHALATION SCH ×2 (07:45→20:59)
--- NOTE | 2022-08-02 07:46 | P.PN ---
Subjective Progress Note Date: 08/02/22 Principal diagnosis: Shortness of breath The patient is a pleasant 72-year-old gentleman with extensive cardiovascular history consistent of CAD with prior stenting of the LAD, valvular heart disease status post aortic valve replacement, as well as permanent atrial fibrillation, and COPD, and hypertension and dyslipidemia and also COPD. He was admitted to the hospital with increasing shortness of breath and he was diagnosed with pneumonia. He underwent an echo which revealed normal biventricular systolic function with what it seems to be normally functioning aortic valve prosthesis. July [id number] The patient was seen and evaluated this morning. He is feeling overall better. He stated that the shortness of breath has improved. No symptoms of chest pain or chest discomfort. I did review the echo with him and reassured him on the results. He is on oral anticoagulation for atrial fibrillation. August [id number] The patient was seen and evaluated this morning. He remains stable from a cardiovascular standpoint of view. He reports no anginal chest pain or chest discomfort but continues to have shortness of breath. He still on antibiotic for the pneumonia. He continues to be on oral anticoagulation for atrial fibrillation. 08/02/2022 The patient was seen this morning. Unfortunately he continues to have shortness of breath. He continues to have bilateral expiratory wheezing and diminished breathing sounds bilaterally continues to require 3 L of oxygen to maintain saturation above 90%. At home he is on 2 L. He is going for bronchoscopy later on today. He continues to be on Lasix by mouth. The last echo showed an EF within normal limits with moderate pulmonary hypertension and no significant left-sided valvular issues. Objective - Vital Signs Vital signs: Vital Signs Temp 97.6 F 08/02/22 04:00 Pulse 91 08/02/22 04:00 Resp 19 08/02/22 04:00 BP 142/77 08/02/22 04:00 Pulse Ox 93 L 08/02/22 04:00 FiO2 Intake & Output 08/01/22 08/02/22 08/02/22 18:59 06:59 18:59 Intake Total 420 Output Total 400 Balance 420 -400 Weight 92.5 kg Intake: Oral 420 Output: Urine 400 Other: Voiding Method Toilet Toilet # Voids 1 - Constitutional General appearance: Present: mild distress - Respiratory Respiratory: bilateral: diminished - Cardiovascular Rhythm: irregularly irregular - Labs CBC & Chem 7: 07/30/22 06:59 12/31/22 07:59 Labs: Abnormal Lab Results - Last 24 Hours (Table) 08/01/22 08/01/22 08/01/22 Range/Units 11:56 16:23 20:12 POC Glucose (mg/dL) 183 H 240 H 195 H (70-110) mg/dL 08/02/22 Range/Units 06:06 POC Glucose (mg/dL) 168 H (70-110) mg/dL Microbiology - Last 24 Hours (Table) 07/29/22 14:23 Blood Culture - Preliminary Blood No Growth after 72 hours 07/29/22 14:23 Blood Culture - Preliminary Blood No Growth after 72 hours Assessment and Plan Assessment: Assessment CAD and status post a stenting of the LAD Permanent atrial fibrillation Valvular heart disease as described above status post aortic valve replacement COPD Pneumonia Plan Continue the current medical regimen The echo was reviewed and showed preserved LV function with moderate pulmonary hypertension Continue oral anticoagulation Follow-up with the patient
[2022-08-02 08:12] LABS: Anisocytosis Slight; Basophils % (A) 0 %; Eosinophils % (A) 0 %; HCT 29.6 % (39.0-53.0); HGB 9.2 gm/dL (13.0-17.5); Hypochromasia Marked; Lymphocytes # (A) 0.4 k/uL (1.0-4.8); Lymphocytes % (A) 7 %; MCH 28.4 pg (25.0-35.0); MCHC 30.9 g/dL (31.0-37.0); MCV 91.7 fL (80.0-100.0); Mean Platelet Volume 8.2; Monocytes # (A) 0.4 k/uL (0-1.0); Monocytes % (A) 6 %; Neutrophils # (A) 5.3 k/uL (1.3-7.7); Neutrophils % (A) 86 %; Platelet Count 139 k/uL (150-450); RBC 3.23 m/uL (4.30-5.90); WBC 6.2 k/uL (3.8-10.6)
[2022-08-02 08:27] LABS: Calcium 8.4 mg/dL (8.4-10.2); Magnesium 2.2 mg/dL (1.6-2.3); Potassium 4.8 mmol/L (3.5-5.1)
[2022-08-02] MEDS: ESCITALOPRAM 20 MG TAB PO SCH (09:31)
[2022-08-02] MEDS: FUROSEMIDE 40 MG TAB PO SCH (09:31)
[2022-08-02] MEDS: APIXABAN 5 MG TAB PO SCH ×2 (09:31→20:16)
[2022-08-02] MEDS: THIAMINE 100 MG TAB PO SCH (09:31)
[2022-08-02] MEDS: METOPROLOL TARTRATE 12.5 MG TAB PO SCH ×2 (09:31→20:16)
[2022-08-02] MEDS: SILDENAFIL 20 MG TAB PO SCH ×3 (09:31→22:59)
[2022-08-02 11:48] LABS: Glucose,Whole Blood 178 mg/dL (70-110)
[2022-08-02] MEDS ORDERED: PROPOFOL 10 MG/ML 20 ML VIAL IV ONE (12:01)
[2022-08-02] MEDS ORDERED: LIDOCAINE 2% INJ 20 MG/ML (2 ML VIAL) ONE (12:01)
[2022-08-02] MEDS ORDERED: IV FLUID CONTINUATION 150 ML IV ONE (12:17)
[2022-08-02] MEDS ORDERED: SODIUM CHLORIDE 0.9% 500 ML 500 ML IV ONE (12:17)
--- NOTE | 2022-08-02 12:33 | P.PN ---
Subjective Progress Note Date: 08/02/22 Principal diagnosis: sob 72-year-old female with history of COPD on 2 L at baseline presented with shortness of breath and hemoptysis. Over the course of the hospitalization christopher ent continues to have shortness of breath as well as hemoptysis without significant improvement. Denied having any fevers or chills. No nausea or vomiting. No other overnight events. Objective - Vital Signs Vital signs: Vital Signs Temp 98.6 F 08/02/22 08:00 Pulse 92 08/02/22 11:32 Resp 24 08/02/22 08:00 BP 146/79 08/02/22 08:00 Pulse Ox 95 08/02/22 08:00 FiO2 Intake & Output 08/01/22 08/02/22 08/02/22 18:59 06:59 18:59 Intake Total 420 150 Output Total 400 Balance 420 -400 150 Weight 92.5 kg Intake: IV 150 Oral 420 Output: Urine 400 Other: Voiding Method Toilet Toilet Toilet # Voids 1 - Exam Constitutional: No acute distress, conversant, pleasant Eyes:Anicteric sclerae, moist conjunctiva, no lid-lag, PERRLA, ENMT: Oropharynx clear, no erythema, exudates Neck: Supple, FROM, no masses, or JVD, No carotid bruits, No thyromegaly Lungs: Bilateral wheezes, Clear to percussion, Normal respiratory effort, no accessory muscle use Cardiovascular: Heart regular in rate and rhythm, No murmurs, gallops, or rubs, No peripheral edema Abdominal: Soft, Nontender, no guarding, rebound or rigidity, Normoactive bowel sounds, No hepatomegaly, No splenomegaly, No palpable mass Skin: Normal temperature, tone, texture, turgor, no induration, No subcutaneous nodules, No rash, lesions, No ulcers Extremities: No digital cyanosis, No clubbing, Pedal pulses intact and symmetrical, Radial pulses intact and symmetrical, No calf tenderness Psychiatric: Alert and oriented to person, place and time, appropriate affect, intact judgement Neuro: Muscles Strength 5/5 in all 4 extremities, Sensation to light touch grossly present throughout, Cranial nerves II-XII grossly intact, no focal sensory deficits - Labs CBC & Chem 7: 08/02/22 07:28 08/02/22 07:28 Labs: Abnormal Lab Results - Last 24 Hours (Table) 08/01/22 08/01/22 08/02/22 Range/Units 16:23 20:12 06:06 RBC (4.30-5.90) m/uL Hgb (13.0-17.5) gm/dL Hct (39.0-53.0) % MCHC (31.0-37.0) g/dL RDW (11.5-15.5) % Plt Count (150-450) k/uL Lymphocytes # (1.0-4.8) k/uL Chloride (98-107) mmol/L Carbon Dioxide (22-30) mmol/L BUN (9-20) mg/dL Glucose (74-99) mg/dL POC Glucose (mg/dL) 240 H 195 H 168 H (70-110) mg/dL 08/02/22 08/02/22 08/02/22 Range/Units 07:28 07:28 11:46 RBC 3.23 L (4.30-5.90) m/uL Hgb 9.2 L (13.0-17.5) gm/dL Hct 29.6 L (39.0-53.0) % MCHC 30.9 L (31.0-37.0) g/dL RDW 17.0 H (11.5-15.5) % Plt Count 139 L (150-450) k/uL Lymphocytes # 0.4 L (1.0-4.8) k/uL Chloride 108 H (98-107) mmol/L Carbon Dioxide 34 H (22-30) mmol/L BUN 29 H (9-20) mg/dL Glucose 157 H (74-99) mg/dL POC Glucose (mg/dL) 178 H (70-110) mg/dL Microbiology - Last 24 Hours (Table) 07/29/22 14:23 Blood Culture - Preliminary Blood No Growth after 72 hours 07/29/22 14:23 Blood Culture - Preliminary Blood No Growth after 72 hours Assessment and Plan Plan: Acute on chronic hypoxic respiratory failure Hemoptysis Health care associated pneumonia Acute COPD exacerbation Possible aspiration pneumonia Sputum cx and MRSA nasal screen negative, discontinue vancomycin Blood cultures no growth to date Procal 1.34. Continue zosyn, steroids and bronchodilators Oxygen to keep sats above 92%. Pulm following, patient going for bronchoscopy with lavage due to lack of improvement. Chronic congestive heart failure Stable Chronic atrial Fibrillation, Coronary Artery Disease (CAD), GERD/Reflux, GI Bleed, Hyperlipidemia, Hypertension, Stable dissection of the descending aorta, Pulmonary hypertension, Prostate cancer with prostatectomy, Macular degeneration L eye, left arm fracture, Liver cirrhosis related to history of alcoholism, All stable resume meds Anticipated discharge back home in 1-2 days
--- NOTE | 2022-08-02 14:14 | P.PN ---
Subjective Progress Note Date: 08/02/22 This a very pleasant 72-year-old male patient who follows with the [facility] for his primary care needs. He has a history of multiple medical problems including digestive heart failure, severe COPD, severe pulmonary hypertension, coronary artery disease, with a previous stent to the LAD, atrial fibrillation, previous aortic valve replacement, hyperlipidemia, and previous heavy tobacco use. The patient is seen today in the emergency room after coming in this morning with a 2-3 day history of increasing shortness of breath, cough or congestion. He had choked on food earlier in the week. He is having some right red blood in his sputum. He did have a fever of 101.3, 99.9 at home according to his son who is present. He does have oxygen dependent chronic obstructive pulmonary disease and is usually on oxygen at 2 L. His O2 saturations were noted to be in the mid 80s and subsequently recovered in the 90s. He is currently on 4 L/m per nasal cannula. Current temperature 99.6. Chest x-ray revealing a left lower lobe consolidation and some mild nonspecific infiltrate changes in the right lung base. White count 8.0. Hemoglobin 9.3. Platelet count 110,000. Sodium 141 potassium 4.0. BUN 22. Creatinine 1.11. Glucose 102. Troponin 0.189. ProBNP 2930. Influenza screen negative. RSV screen negative. COVID-19 screen negative. He's been initiated and DuoNeb inhalations, Symbicort, IV Solu- Medrol. Antibiotics in the form of vancomycin and Zosyn. He is anticoagulated with Eliquis. The patient is seen today 07/30/2022 in follow-up on the selective care unit. He is currently sitting up in bed. Awake and alert in no acute distress. Maintaining good O2 saturations in the mid 90s on 2 L/m per nasal cannula. He's been initiated on vancomycin and Zosyn. Sputum cultures pending. Pro- calcitonin was 1.34. Chest x-ray reveals similar patchy left basilar airspace disease with coarsened interstitial markings concerning for pneumonia. Small left pleural effusion. Echocardiogram revealed mildly impaired left ventricular systolic function with ejection fraction 45-50%. Mild to moderate pulmonary hypertension. Mild aortic stenosis. White count 7.2. Hemoglobin 10.1. Plat elets 125. Sodium 143. Potassium 4.3. BUN 19. Creatinine 0.85. The patient is seen today 08/01/2022 in follow-up on the selective care unit. He is awake and alert in no acute distress. Sitting up in bed. He is still quite congested. Still bringing up some blood-tinged sputum. Maintaining O2 saturations in the 90s on 4 L/m per nasal cannula. He is continued on DuoNeb inhalations, Pulmicort and Perforomist inhalations, IV Solu-Medrol. Remains on oral diuretics. Remains on antibiotics in the form of Zosyn. Remains anticoagulated with Eliquis. His chest x-ray continues to show bilateral airspace opacities. Cardiomegaly and mild pulmonary vascular congestion. Blood culture revealed no growth. Sputum cultures revealed no growth. Blood sugar 183. The patient is seen today 08/02/2022 in follow-up on the selective care unit. He is up ambulating in his room. No worsening shortness of breath, cough or congestion. Still with some blood-tinged sputum. Plan is for bronchoscopy with BAL today. He is continued on DuoNeb inhalations, Pulmicort and Perforomist inhalations, IV Solu-Medrol. Remains on oral diuretics. Continued on Zosyn. Remains anticoagulated with Eliquis. White count 6.2. Hemoglobin 9.2. Platelets 139. Sodium 144. Potassium 4.8. Bicarb 34. BUN 29. Creatinine 1.19. Glucose 157. ProBNP 3070. Objective - Vital Signs Vital signs: Vital Signs Temp 98.6 F 08/02/22 08:00 Pulse 98 08/02/22 12:00 Resp 16 08/02/22 12:00 BP 114/59 08/02/22 12:00 Pulse Ox 95 08/02/22 08:00 FiO2 Intake & Output 08/01/22 08/02/22 08/02/22 18:59 06:59 18:59 Intake Total 420 150 Output Total 400 Balance 420 -400 150 Weight 92.5 kg Intake: IV 150 Oral 420 Output: Urine 400 Other: Voiding Method Toilet Toilet Toilet # Voids 1 - Exam GENERAL EXAM: Alert, 72-year-old male, apparently ambulating in his room, on 3 L nasal cannula, fairly comfortable in no apparent distress. HEAD: Normocephalic. EYES: Normal reaction of pupils, equal size. NOSE: Clear with pink turbinates. THROAT: No erythema or exudates. NECK: No masses, no JVD. CHEST: No chest wall deformity. LUNGS: Equal air entry with bilateral scattered rhonchi, end expiratory wheeze. CVS: S1 and S2 normal with no audible murmur, regular rhythm. ABDOMEN: No hepatosplenomegaly, normal bowel sounds, no guarding or rigidity. SPINE: No scoliosis or deformity SKIN: No rashes CENTRAL NERVOUS SYSTEM: No focal deficits, tone is normal in all 4 extremities. EXTREMITIES: There is no peripheral edema. No clubbing, no cyanosis. Peripheral pulses are intact. - Labs CBC & Chem 7: 08/02/22 07:28 08/02/22 07:28 Labs: Abnormal Lab Results - Last 24 Hours (Table) 08/01/22 08/01/22 08/02/22 Range/Units 16:23 20:12 06:06 RBC (4.30-5.90) m/uL Hgb (13.0-17.5) gm/dL Hct (39.0-53.0) % MCHC (31.0-37.0) g/dL RDW (11.5-15.5) % Plt Count (150-450) k/uL Lymphocytes # (1.0-4.8) k/uL Chloride (98-107) mmol/L Carbon Dioxide (22-30) mmol/L BUN (9-20) mg/dL Glucose (74-99) mg/dL POC Glucose (mg/dL) 240 H 195 H 168 H (70-110) mg/dL 08/02/22 08/02/22 08/02/22 Range/Units 07:28 07:28 11:46 RBC 3.23 L (4.30-5.90) m/uL Hgb 9.2 L (13.0-17.5) gm/dL Hct 29.6 L (39.0-53.0) % MCHC 30.9 L (31.0-37.0) g/dL RDW 17.0 H (11.5-15.5) % Plt Count 139 L (150-450) k/uL Lymphocytes # 0.4 L (1.0-4.8) k/uL Chloride 108 H (98-107) mmol/L Carbon Dioxide 34 H (22-30) mmol/L BUN 29 H (9-20) mg/dL Glucose 157 H (74-99) mg/dL POC Glucose (mg/dL) 178 H (70-110) mg/dL Microbiology - Last 24 Hours (Table) 07/29/22 14:23 Blood Culture - Preliminary Blood No Growth after 72 hours 07/29/22 14:23 Blood Culture - Preliminary Blood No Growth after 72 hours Assessment and Plan Assessment: Acute on chronic hypoxemic respiratory failure secondary to an acute multilobar pneumonia more so in the left lung base. Bronchoscopy with BAL performed on 08/02/2022. Cultures and cytology pending. Hemoptysis secondary to above Troponin leak Moderate to severe pulmonary hypertension History of aortic valve replacement with bioprosthetic valve History of atrial fibrillation, anticoagulated with Eliquis History of stable dissection of the descending aorta Coronary disease with previous bypass surgery, previous stent placement Chronic obstructive pulmonary disease, oxygen dependent Chronic tobacco dependence History of liver cirrhosis secondary to alcoholism History of prostate cancer status post prostatectomy History of right lower lobe DVT History of macular degeneration Hyperlipidemia Hypertension Plan: The patient was seen and evaluated Labs and medications reviewed Continue Zosyn, bronchodilators, diuretics, steroids Titrate the FiO2 as tolerated Bronchoscopy with BAL performed today Cultures and cytology pending We will continue to follow I have personally seen and examined the patient, performed the documentation and the assessment and plan as written. Number of minutes spent on the visit: 10.
--- NOTE | 2022-08-02 16:15 | PCN ---
PROCEDURE NOTE This is a Pulmonary/Critical Care procedure note. PROCEDURES PERFORMED: Bronchoscopy, airway examination, therapeutic lavage, and bronchoalveolar lavage. PREOPERATIVE DIAGNOSES: Chronic obstructive pulmonary disease exacerbation, retained secretions, and hemoptysis. POSTOPERATIVE DIAGNOSES: Chronic obstructive pulmonary disease exacerbation, retained secretions, and hemoptysis. There were informed consent and universal time-out. The patient's procedure took place in [facility] room #1. ANESTHESIA PROVIDED: General anesthesia. OPERATORS: 1. Dr. Ramey. 2. Dr. Goodman. 3. Nik Lara NP. DESCRIPTION OF PROCEDURE: After the patient was adequately sedated and being fully monitored, the bronchoscope was inserted through the right nostril. It passed through the right nasopharynx into the oropharynx. The hypopharynx was identified. The anterior commissure, true cords, false cords, arytenoids, piriform sinuses - right and left, valleculae, and epiglottis all appeared relatively normal. There was minimal crowding in the hypopharynx. Next, the glottic opening was topicalized, and the bronchoscope was pushed through the glottic opening into the trachea. There were thick secretions mixed with coagulants of blood in the trachea. With saline lavage, they were suctioned. The tracheal shon was sharp. The right and left mainstem were topicalized. The right upper lobe and its 3 segments, the right middle lobe and its 2 segments, the right lower lobe and its 5 segments, the lingula and its 2 segments, the left upper lobe proper and its 2 segments, and the left lower lobe and its 4 segments all had similar findings of diffuse airway erythema and hyperemia. There were thick secretions noted throughout. They were mixed with blood. There was no dominant mass or tumor. There was mucosal friability. There was some vascular engorgement. The secretions were purulent- looking. Again, no dominant mass or tumor. The bronchoscope was wedged into the right middle lobe. A BAL took place, 25 mL of bloody fluid was returned. The fluid will be sent for analysis. There was no immediate complication. The bronchoscope was then withdrawn. The patient tolerated the procedure well and will be recovered. MMODL / IJN: [id number] /
[2022-08-02 16:42] LABS: Glucose,Whole Blood 182 mg/dL (70-110)
[2022-08-02 20:13] LABS: Glucose,Whole Blood 236 mg/dL (70-110)
[2022-08-02] MEDS: ATORVASTATIN 20 MG TAB PO SCH (20:16)
[2022-08-02] MEDS: MIRTAZAPINE 15 MG TAB PO SCH (20:16)
[2022-08-02] MEDS: INSULIN ASPART (NovoLOG) 100 UNIT/ML VIAL SQ SCH (21:31)
[2022-08-02 23:41] LABS: Appearance,BF Blood Tinged
[2022-08-03 06:10] LABS: Glucose,Whole Blood 163 mg/dL (70-110)
[2022-08-03] MEDS: LEVOTHYROXINE 50 MCG TAB PO SCH (06:30)
[2022-08-03] MEDS: PANTOPRAZOLE 40 MG TABLET PO SCH (06:30)
[2022-08-03] MEDS: methylPREDNISolone SOD SUCCI 40 MG/ML 1 ML VIAL IV SCH ×4 (06:30→23:30)
[2022-08-03] MEDS: INSULIN ASPART (NovoLOG) 100 UNIT/ML VIAL SQ SCH ×4 (06:30→22:01)
[2022-08-03] MEDS: IPRATROPIUM-ALBUTEROL 3 ML NEB INHALATION SCH ×4 (07:17→20:33)
[2022-08-03] MEDS: FORMOTEROL FUMARATE 20 MCG/2 ML NEBU INHALATION SCH ×2 (07:17→20:33)
[2022-08-03] MEDS: BUDESONIDE 1 MG/2 ML NEBU INHALATION SCH ×2 (07:17→20:33)
[2022-08-03] MEDS: PIPERACILLIN-TAZOBACTAM 3.375 GM in SODIUM CHLORIDE 0.9% 100 ML IVPB SCH ×3 (08:39→23:31)
[2022-08-03] MEDS: FUROSEMIDE 40 MG TAB PO SCH (08:40)
[2022-08-03] MEDS: SILDENAFIL 20 MG TAB PO SCH ×3 (08:40→22:02)
[2022-08-03] MEDS: THIAMINE 100 MG TAB PO SCH (08:40)
[2022-08-03] MEDS: APIXABAN 5 MG TAB PO SCH ×2 (08:40→22:01)
[2022-08-03] MEDS: METOPROLOL TARTRATE 12.5 MG TAB PO SCH ×2 (08:40→22:01)
[2022-08-03] MEDS: ESCITALOPRAM 20 MG TAB PO SCH (08:40)
[2022-08-03 11:32] LABS: Glucose,Whole Blood 173 mg/dL (70-110)
--- NOTE | 2022-08-03 14:55 | P.PN ---
Subjective Progress Note Date: 08/03/22 This a very pleasant 72-year-old male patient who follows with the [facility] for his primary care needs. He has a history of multiple medical problems including digestive heart failure, severe COPD, severe pulmonary hypertension, coronary artery disease, with a previous stent to the LAD, atrial fibrillation, previous aortic valve replacement, hyperlipidemia, and previous heavy tobacco use. The patient is seen today in the emergency room after coming in this morning with a 2-3 day history of increasing shortness of breath, cough or congestion. He had choked on food earlier in the week. He is having some right red blood in his sputum. He did have a fever of 101.3, 99.9 at home according to his son who is present. He does have oxygen dependent chronic obstructive pulmonary disease and is usually on oxygen at 2 L. His O2 saturations were noted to be in the mid 80s and subsequently recovered in the 90s. He is currently on 4 L/m per nasal cannula. Current temperature 99.6. Chest x-ray revealing a left lower lobe consolidation and some mild nonspecific infiltrate changes in the right lung base. White count 8.0. Hemoglobin 9.3. Platelet count 110,000. Sodium 141 potassium 4.0. BUN 22. Creatinine 1.11. Glucose 102. Troponin 0.189. ProBNP 2930. Influenza screen negative. RSV screen negative. COVID-19 screen negative. He's been initiated and DuoNeb inhalations, Symbicort, IV Solu- Medrol. Antibiotics in the form of vancomycin and Zosyn. He is anticoagulated with Eliquis. The patient is seen today 07/30/2022 in follow-up on the selective care unit. He is currently sitting up in bed. Awake and alert in no acute distress. Maintaining good O2 saturations in the mid 90s on 2 L/m per nasal cannula. He's been initiated on vancomycin and Zosyn. Sputum cultures pending. Pro- calcitonin was 1.34. Chest x-ray reveals similar patchy left basilar airspace disease with coarsened interstitial markings concerning for pneumonia. Small left pleural effusion. Echocardiogram revealed mildly impaired left ventricular systolic function with ejection fraction 45-50%. Mild to moderate pulmonary hypertension. Mild aortic stenosis. White count 7.2. Hemoglobin 10.1. Plat elets 125. Sodium 143. Potassium 4.3. BUN 19. Creatinine 0.85. The patient is seen today 08/01/2022 in follow-up on the selective care unit. He is awake and alert in no acute distress. Sitting up in bed. He is still quite congested. Still bringing up some blood-tinged sputum. Maintaining O2 saturations in the 90s on 4 L/m per nasal cannula. He is continued on DuoNeb inhalations, Pulmicort and Perforomist inhalations, IV Solu-Medrol. Remains on oral diuretics. Remains on antibiotics in the form of Zosyn. Remains anticoagulated with Eliquis. His chest x-ray continues to show bilateral airspace opacities. Cardiomegaly and mild pulmonary vascular congestion. Blood culture revealed no growth. Sputum cultures revealed no growth. Blood sugar 183. The patient is seen today 08/02/2022 in follow-up on the selective care unit. He is up ambulating in his room. No worsening shortness of breath, cough or congestion. Still with some blood-tinged sputum. Plan is for bronchoscopy with BAL today. He is continued on DuoNeb inhalations, Pulmicort and Perforomist inhalations, IV Solu-Medrol. Remains on oral diuretics. Continued on Zosyn. Remains anticoagulated with Eliquis. White count 6.2. Hemoglobin 9.2. Platelets 139. Sodium 144. Potassium 4.8. Bicarb 34. BUN 29. Creatinine 1.19. Glucose 157. ProBNP 3070. The patient is seen today 08/03/2022 in follow-up on the selective care unit. He is currently resting comfortably in bed. Awake and alert in no acute d istress. He did undergo bronchoscopy with BAL yesterday. Cultures and cytology are pending. At sugar 173. He's been on bronchodilators, IV Solu-Medrol. Antibiotics in the form of Zosyn. Antibiotics in the form of Eliquis. Objective - Vital Signs Vital signs: Vital Signs Temp 97.2 F L 08/03/22 08:26 Pulse 88 08/03/22 12:26 Resp 16 08/03/22 12:26 BP 120/56 08/03/22 12:26 Pulse Ox 91 L 08/03/22 12:26 FiO2 Intake & Output 08/02/22 08/03/22 08/03/22 18:59 06:59 18:59 Intake Total 510 360 Output Total 150 Balance 360 360 Weight 92.4 kg Intake: IV 150 Oral 360 360 Output: Urine 150 Other: Voiding Method Toilet Urinal Urinal # Voids 3 4 - Exam GENERAL EXAM: Alert, 72-year-old male, resting comfortably in bed, on 3 L nasal cannula, fairly comfortable in no apparent distress. HEAD: Normocephalic. EYES: Normal reaction of pupils, equal size. NOSE: Clear with pink turbinates. THROAT: No erythema or exudates. NECK: No masses, no JVD. CHEST: No chest wall deformity. LUNGS: Equal air entry with bilateral scattered rhonchi, end expiratory wheeze. CVS: S1 and S2 normal with no audible murmur, regular rhythm. ABDOMEN: No hepatosplenomegaly, normal bowel sounds, no guarding or rigidity. SPINE: No scoliosis or deformity SKIN: No rashes CENTRAL NERVOUS SYSTEM: No focal deficits, tone is normal in all 4 extremities. EXTREMITIES: There is no peripheral edema. No clubbing, no cyanosis. Peripheral pulses are intact. - Labs CBC & Chem 7: 08/02/22 07:28 08/02/22 07:28 Labs: Abnormal Lab Results - Last 24 Hours (Table) 08/02/22 08/02/22 08/03/22 Range/Units 16:41 20:12 06:09 POC Glucose (mg/dL) 182 H 236 H 163 H (70-110) mg/dL 08/03/22 Range/Units 11:30 POC Glucose (mg/dL) 173 H (70-110) mg/dL Microbiology - Last 24 Hours (Table) 08/02/22 12:15 Gram Stain - Preliminary Bronchial Washings - Right Bronchial Washings Culture - Preliminary 08/02/22 12:15 Acid Fast Bacilli Culture - Preliminary Bronchial Washings - Right 08/02/22 12:15 Fungal Culture - Preliminary Bronchial Washings - Right 07/29/22 14:23 Blood Culture - Preliminary Blood No Growth after 96 hours 07/29/22 14:23 Blood Culture - Preliminary Blood No Growth after 96 hours Assessment and Plan Assessment: Acute on chronic hypoxemic respiratory failure secondary to an acute multilobar pneumonia more so in the left lung base. Bronchoscopy with BAL performed on 08/02/2022. Cultures and cytology pending. Hemoptysis secondary to above Troponin leak Moderate to severe pulmonary hypertension History of aortic valve replacement with bioprosthetic valve History of atrial fibrillation, anticoagulated with Eliquis History of stable dissection of the descending aorta Coronary disease with previous bypass surgery, previous stent placement Chronic obstructive pulmonary disease, oxygen dependent Chronic tobacco dependence History of liver cirrhosis secondary to alcoholism History of prostate cancer status post prostatectomy History of right lower lobe DVT History of macular degeneration Hyperlipidemia Hypertension Plan: The patient was seen and evaluated Labs and medications reviewed Continue Zosyn, bronchodilators, diuretics, steroids Titrate the FiO2 as tolerated Bronchoscopy with BAL performed yesterday Cultures and cytology pending We will continue to follow I have personally seen and examined the patient, performed the documentation and the assessment and plan as written. Number of minutes spent on the visit: 10.
--- NOTE | 2022-08-03 15:05 | P.PN ---
Subjective Progress Note Date: 08/03/22 History of present illness: The patient is a pleasant 72-year-old gentleman with extensive cardiovascular history consistent of CAD with prior stenting of the LAD, valvular heart disease status post aortic valve replacement, as well as permanent atrial fibrillation, and COPD, and hypertension and dyslipidemia and also COPD. He was admitted to the hospital with increasing shortness of breath and he was diagnosed with pneumonia. He underwent an echo which revealed normal biventricular systolic function with what it seems to be normally functioning aortic valve prosthesis. July [id number] The patient was seen and evaluated this morning. He is feeling overall better. He stated that the shortness of breath has improved. No symptoms of chest pain or chest discomfort. I did review the echo with him and reassured him on the results. He is on oral anticoagulation for atrial fibrillation. August [id number] The patient was seen and evaluated this morning. He remains stable from a cardiovascular standpoint of view. He reports no anginal chest pain or chest discomfort but continues to have shortness of breath. He still on antibiotic for the pneumonia. He continues to be on oral anticoagulation for atrial fibrillation. 08/02/2022 The patient was seen this morning. Unfortunately he continues to have shortness of breath. He continues to have bilateral expiratory wheezing and diminished breathing sounds bilaterally continues to require 3 L of oxygen to maintain saturation above 90%. At home he is on 2 L. He is going for bronchoscopy later on today. He continues to be on Lasix by mouth. The last echo showed an EF within normal limits with moderate pulmonary hypertension and no significant left-sided valvular issues. 08/03 Patient states that he is feeling better today. Patient underwent bronchoscopy and BAL yesterday with pulmonary medicine and cytology and cultures are pending. Heart rate has been in the 80s, blood pressure 120/56, pulse ox 91% on 3 L nasal cannula. shelter monitor is atrial fibrillation with controlled rate. Physical examination: Gen: This is a 72-year-old male. He is resting in bed appears to be comfortable. VS: reviewed HEENT: Head is atraumatic, normocephalic. Pupils equal, round. Sclerae is anicteric. NECK: Supple. No JVD. No lymphadenopathy. LUNGS: Scattered rhonchi, expiratory wheeze. No intercostal retractions. HEART: Irregularly irregular rate and rhythm. No murmur. ABDOMEN: Soft. Bowel sounds are present. No masses. No tenderness. EXTREMITIES: No pedal edema. No calf tenderness. NEUROLOGICAL: Patient is awake, alert and oriented x3. Assessment CAD and status post a stenting of the LAD Permanent atrial fibrillation Valvular heart disease as described above status post aortic valve replacement COPD Pneumonia Plan Continue the current medical regimen The echo was reviewed and showed preserved LV function with moderate pulmonary hypertension Continue oral anticoagulation Cardiology we'll sign off and follow on an as-needed basis. Please reconsult for any new concerns. Nurse practitioner note has been reviewed, I agree with documented findings and plan of care. Patient was seen and examined. Objective - Vital Signs Vital signs: Vital Signs Temp 97.2 F L 08/03/22 08:26 Pulse 84 08/03/22 08:26 Resp 16 08/03/22 08:26 BP 116/56 08/03/22 08:26 Pulse Ox 94 L 08/03/22 10:00 FiO2 Intake & Output 08/02/22 08/03/22 08/03/22 18:59 06:59 18:59 Intake Total 510 180 Output Total 150 Balance 360 180 Weight 92.4 kg Intake: IV 150 Oral 360 180 Output: Urine 150 Other: Voiding Method Toilet Urinal # Voids 3 4 - Labs CBC & Chem 7: 08/02/22 07:28 08/02/22 07:28 Labs: Abnormal Lab Results - Last 24 Hours (Table) 08/02/22 08/02/22 08/02/22 Range/Units 11:46 16:41 20:12 POC Glucose (mg/dL) 178 H 182 H 236 H (70-110) mg/dL 08/03/22 Range/Units 06:09 POC Glucose (mg/dL) 163 H (70-110) mg/dL Microbiology - Last 24 Hours (Table) 08/02/22 12:15 Gram Stain - Preliminary Bronchial Washings - Right Bronchial Washings Culture - Preliminary 08/02/22 12:15 Acid Fast Bacilli Culture - Preliminary Bronchial Washings - Right 08/02/22 12:15 Fungal Culture - Preliminary Bronchial Washings - Right 07/29/22 14:23 Blood Culture - Preliminary Blood No Growth after 96 hours 07/29/22 14:23 Blood Culture - Preliminary Blood No Growth after 96 hours
--- NOTE | 2022-08-03 15:06 | P.PN ---
Subjective Progress Note Date: 08/03/22 Patient seen and examined at bedside. Patient states that his breathing is still labored but better since being admitted. Patient continues to have moderate expiratory wheezing and a cough. Patient denies chest pain Objective - Vital Signs Vital signs: Vital Signs Temp 97.2 F L 08/03/22 08:26 Pulse 88 08/03/22 12:26 Resp 16 08/03/22 12:26 BP 120/56 08/03/22 12:26 Pulse Ox 91 L 08/03/22 12:26 FiO2 Intake & Output 08/02/22 08/03/22 08/03/22 18:59 06:59 18:59 Intake Total 510 360 Output Total 150 Balance 360 360 Weight 92.4 kg Intake: IV 150 Oral 360 360 Output: Urine 150 Other: Voiding Method Toilet Urinal Urinal # Voids 3 4 - Exam General: [non toxic], [no distress], [appears at stated age] Derm: [warm], [dry] Head: [atraumatic], [normocephalic], [symmetric] Eyes: [EOMI], [no lid lag], [anicteric sclera] Mouth: [no lip lesion], [mucus membranes moist] Cardiovascular: [S1S2 reg], [no murmur], [positive posterior tibial pulse bilateral], Lungs: [Bilateral expiratory wheezing] , [no accessory muscle use] Abdominal: [soft], [ nontender to palpation], [no guarding], [no appreciable organomegaly] Ext: [no gross muscle atrophy], [no edema], [no contractures] Neuro: [ CN II-XI grossly intact], [no focal neuro deficits] Psych: [Alert], [oriented], [appropriate affect] - Labs CBC & Chem 7: 08/02/22 07:28 08/02/22 07:28 Labs: Abnormal Lab Results - Last 24 Hours (Table) 08/02/22 08/02/22 08/03/22 Range/Units 16:41 20:12 06:09 POC Glucose (mg/dL) 182 H 236 H 163 H (70-110) mg/dL 08/03/22 Range/Units 11:30 POC Glucose (mg/dL) 173 H (70-110) mg/dL Microbiology - Last 24 Hours (Table) 08/02/22 12:15 Gram Stain - Preliminary Bronchial Washings - Right Bronchial Washings Culture - Preliminary 08/02/22 12:15 Acid Fast Bacilli Culture - Preliminary Bronchial Washings - Right 08/02/22 12:15 Fungal Culture - Preliminary Bronchial Washings - Right 07/29/22 14:23 Blood Culture - Preliminary Blood No Growth after 96 hours 07/29/22 14:23 Blood Culture - Preliminary Blood No Growth after 96 hours Assessment and Plan Assessment: Acute on chronic hypoxic respiratory failure Hemoptysis Health care associated pneumonia Acute COPD exacerbation Possible aspiration pneumonia Sputum cx and MRSA nasal screen negative, discontinue vancomycin Blood cultures no growth to date Procal 1.34. Continue zosyn, steroids and bronchodilators Oxygen to keep sats above 92%. Pulm following, patient had a bronchoscopy with lavage on 08/02/22 due to lack of improvement. Cultures and cytology are pending Chronic congestive heart failure Stable Chronic atrial Fibrillation, Coronary Artery Disease (CAD), GERD/Reflux, GI Bleed, Hyperlipidemia, Hypertension, Stable dissection of the descending aorta, Pulmonary hypertension, Prostate cancer with prostatectomy, Macular degeneration L eye, left arm fracture, Liver cirrhosis related to history of alcoholism, All stable resume meds Anticipated discharge back home pending clinical course Time with Patient: Greater than 30
[2022-08-03 16:40] LABS: Glucose,Whole Blood 172 mg/dL (70-110)
[2022-08-03 20:05] LABS: Glucose,Whole Blood 164 mg/dL (70-110)
[2022-08-03] MEDS: MIRTAZAPINE 15 MG TAB PO SCH (22:01)
[2022-08-03] MEDS: ATORVASTATIN 20 MG TAB PO SCH (22:01)
[2022-08-04 06:10] LABS: Glucose,Whole Blood 151 mg/dL (70-110)
[2022-08-04] MEDS: LEVOTHYROXINE 50 MCG TAB PO SCH (06:40)
[2022-08-04] MEDS: PANTOPRAZOLE 40 MG TABLET PO SCH (06:40)
[2022-08-04] MEDS: INSULIN ASPART (NovoLOG) 100 UNIT/ML VIAL SQ SCH ×4 (06:40→21:01)
[2022-08-04] MEDS: methylPREDNISolone SOD SUCCI 40 MG/ML 1 ML VIAL IV SCH ×4 (06:40→23:21)
[2022-08-04] MEDS: BUDESONIDE 1 MG/2 ML NEBU INHALATION SCH ×2 (08:38→21:01)
[2022-08-04] MEDS: IPRATROPIUM-ALBUTEROL 3 ML NEB INHALATION SCH ×4 (08:38→21:01)
[2022-08-04] MEDS: FORMOTEROL FUMARATE 20 MCG/2 ML NEBU INHALATION SCH ×2 (08:38→21:01)
[2022-08-04] MEDS: PIPERACILLIN-TAZOBACTAM 3.375 GM in SODIUM CHLORIDE 0.9% 100 ML IVPB SCH ×3 (08:56→23:21)
[2022-08-04] MEDS: THIAMINE 100 MG TAB PO SCH (08:57)
[2022-08-04] MEDS: SILDENAFIL 20 MG TAB PO SCH ×3 (08:57→21:03)
[2022-08-04] MEDS: FUROSEMIDE 40 MG TAB PO SCH (08:57)
[2022-08-04] MEDS: APIXABAN 5 MG TAB PO SCH ×2 (08:57→20:02)
[2022-08-04] MEDS: METOPROLOL TARTRATE 12.5 MG TAB PO SCH ×2 (08:57→20:02)
[2022-08-04] MEDS: ESCITALOPRAM 20 MG TAB PO SCH (08:57)
[2022-08-04 09:29] LABS: Anisocytosis Slight; Basophils % (A) 0 %; Eosinophils % (A) 0 %; HCT 31.5 % (39.0-53.0); HGB 9.8 gm/dL (13.0-17.5); Hypochromasia Marked; Lymphocytes # (A) 0.5 k/uL (1.0-4.8); Lymphocytes % (A) 7 %; MCH 28.1 pg (25.0-35.0); MCHC 31.3 g/dL (31.0-37.0); Mean Platelet Volume 9.1; Monocytes # (A) 0.6 k/uL (0-1.0); Monocytes % (A) 8 %; Neutrophils # (A) 6.4 k/uL (1.3-7.7); Neutrophils % (A) 84 %; Platelet Count 154 k/uL (150-450); RDW 16.8 % (11.5-15.5); WBC 7.7 k/uL (3.8-10.6)
[2022-08-04 09:52] LABS: Albumin 3.5 g/dL (3.5-5.0); Calcium 8.4 mg/dL (8.4-10.2); Magnesium 2.3 mg/dL (1.6-2.3); Potassium 4.1 mmol/L (3.5-5.1); Total Bilirubin 0.5 mg/dL (0.2-1.3); Total Protein 6.2 g/dL (6.3-8.2)
[2022-08-04 11:40] LABS: Glucose,Whole Blood 242 mg/dL (70-110)
--- NOTE | 2022-08-04 11:52 | P.PN ---
Subjective Progress Note Date: 08/04/22 This a very pleasant 72-year-old male patient who follows with the [facility] for his primary care needs. He has a history of multiple medical problems including digestive heart failure, severe COPD, severe pulmonary hypertension, coronary artery disease, with a previous stent to the LAD, atrial fibrillation, previous aortic valve replacement, hyperlipidemia, and previous heavy tobacco use. The patient is seen today in the emergency room after coming in this morning with a 2-3 day history of increasing shortness of breath, cough or congestion. He had choked on food earlier in the week. He is having some right red blood in his sputum. He did have a fever of 101.3, 99.9 at home according to his son who is present. He does have oxygen dependent chronic obstructive pulmonary disease and is usually on oxygen at 2 L. His O2 saturations were noted to be in the mid 80s and subsequently recovered in the 90s. He is currently on 4 L/m per nasal cannula. Current temperature 99.6. Chest x-ray revealing a left lower lobe consolidation and some mild nonspecific infiltrate changes in the right lung base. White count 8.0. Hemoglobin 9.3. Platelet count 110,000. Sodium 141 potassium 4.0. BUN 22. Creatinine 1.11. Glucose 102. Troponin 0.189. ProBNP 2930. Influenza screen negative. RSV screen negative. COVID-19 screen negative. He's been initiated and DuoNeb inhalations, Symbicort, IV Solu- Medrol. Antibiotics in the form of vancomycin and Zosyn. He is anticoagulated with Eliquis. The patient is seen today 07/30/2022 in follow-up on the selective care unit. He is currently sitting up in bed. Awake and alert in no acute distress. Maintaining good O2 saturations in the mid 90s on 2 L/m per nasal cannula. He's been initiated on vancomycin and Zosyn. Sputum cultures pending. Pro- calcitonin was 1.34. Chest x-ray reveals similar patchy left basilar airspace disease with coarsened interstitial markings concerning for pneumonia. Small left pleural effusion. Echocardiogram revealed mildly impaired left ventricular systolic function with ejection fraction 45-50%. Mild to moderate pulmonary hypertension. Mild aortic stenosis. White count 7.2. Hemoglobin 10.1. Juan Jose telets 125. Sodium 143. Potassium 4.3. BUN 19. Creatinine 0.85. The patient is seen today 08/01/2022 in follow-up on the selective care unit. He is awake and alert in no acute distress. Sitting up in bed. He is still quite congested. Still bringing up some blood-tinged sputum. Maintaining O2 saturations in the 90s on 4 L/m per nasal cannula. He is continued on DuoNeb inhalations, Pulmicort and Perforomist inhalations, IV Solu-Medrol. Remains on oral diuretics. Remains on antibiotics in the form of Zosyn. Remains anticoagulated with Eliquis. His chest x-ray continues to show bilateral airspace opacities. Cardiomegaly and mild pulmonary vascular congestion. Blood culture revealed no growth. Sputum cultures revealed no growth. Blood sugar 183. The patient is seen today 08/02/2022 in follow-up on the selective care unit. He is up ambulating in his room. No worsening shortness of breath, cough or congestion. Still with some blood-tinged sputum. Plan is for bronchoscopy with BAL today. He is continued on DuoNeb inhalations, Pulmicort and Perforomist inhalations, IV Solu-Medrol. Remains on oral diuretics. Continued on Zosyn. Remains anticoagulated with Eliquis. White count 6.2. Hemoglobin 9.2. Platelets 139. Sodium 144. Potassium 4.8. Bicarb 34. BUN 29. Creatinine 1.19. Glucose 157. ProBNP 3070. The patient is seen today 08/03/2022 in follow-up on the selective care unit. He is currently resting comfortably in bed. Awake and alert in no acute distress. He did undergo bronchoscopy with BAL yesterday. Cultures and cytology are pending. At sugar 173. He's been on bronchodilators, IV Solu-Medrol. Antibiotics in the form of Zosyn. Antibiotics in the form of Eliquis. On 08/04/2022, the patient is feeling well. He is on oxygen at 2 L/m nasal cannula. He remains on IV Zosyn. His post-bronchoscopy and a bronchioloalveolar lavage was also done and the cultures came back all negative for now. The patient also was negative for influenza A and B and Covid 19 was negative RSV was negative. The most recent chest x-ray was from 08/01/2022 and it showed airspace disease related to pneumonia along with cardiomegaly and pulmonary vascular congestion. His echocardiogram that was also done on 07/30/2022 showed a preserved LV function, mild aortic stenosis otherwise no other acute abnormalities have been noted. The patient remains on DuoNeb about treatments [id number], IV Solu-Medrol 40 mg every 6 hours, IV Zosyn and is also on long-term anticoagulants with Eliquis. His white cell count today is at 7.7 with a hemoglobin 9.8 and a platelet count of 154. Rest of the chemistry is showing a BUN of 29 with a creatinine 1.1 and sodium level of 143, LFTs are normal. Objective - Vital Signs Vital signs: Vital Signs Temp 98.3 F 08/04/22 04:00 Pulse 80 08/04/22 11:13 Resp 16 08/04/22 08:00 BP 129/69 08/04/22 08:00 Pulse Ox 98 08/04/22 08:00 FiO2 Intake & Output 08/03/22 08/04/22 08/04/22 18:59 06:59 18:59 Intake Total 740 180 Balance 740 180 Weight 92.8 kg Intake: Intake, IV Titration 200 Amount Piperacillin-Tazobactam 3 200 .375 gm In Sodium Chloride 0.9% 100 ml @ 25 mls/hr IVPB Q8HR [facility] Rx# :[id number] Oral 540 180 Other: Voiding Method Urinal Urinal Urinal # Voids 1 1 - Exam GENERAL EXAM: Alert, 72-year-old male, resting comfortably in bed, on 2 L nasal cannula, fairly comfortable in no apparent distress. HEAD: Normocephalic. EYES: Normal reaction of pupils, equal size. NOSE: Clear with pink turbinates. THROAT: No erythema or exudates. NECK: No masses, no JVD. CHEST: No chest wall deformity. LUNGS: Equal air entry with bilateral scattered rhonchi, end expiratory wheeze. CVS: S1 and S2 normal with no audible murmur, regular rhythm. ABDOMEN: No hepatosplenomegaly, normal bowel sounds, no guarding or rigidity. SPINE: No scoliosis or deformity SKIN: No rashes CENTRAL NERVOUS SYSTEM: No focal deficits, tone is normal in all 4 extremities. EXTREMITIES: There is no peripheral edema. No clubbing, no cyanosis. Peripheral pulses are intact. - Labs CBC & Chem 7: 08/04/22 08:44 08/04/22 08:44 Labs: Abnormal Lab Results - Last 24 Hours (Table) 08/03/22 08/03/22 08/04/22 Range/Units 16:38 19:59 06:08 RBC (4.30-5.90) m/uL Hgb (13.0-17.5) gm/dL Hct (39.0-53.0) % RDW (11.5-15.5) % Lymphocytes # (1.0-4.8) k/uL Carbon Dioxide (22-30) mmol/L BUN (9-20) mg/dL Glucose (74-99) mg/dL POC Glucose (mg/dL) 172 H 164 H 151 H (70-110) mg/dL Total Protein (6.3-8.2) g/dL 08/04/22 08/04/22 08/04/22 Range/Units 08:44 08:44 11:38 RBC 3.50 L (4.30-5.90) m/uL Hgb 9.8 L (13.0-17.5) gm/dL Hct 31.5 L (39.0-53.0) % RDW 16.8 H (11.5-15.5) % Lymphocytes # 0.5 L (1.0-4.8) k/uL Carbon Dioxide 34 H (22-30) mmol/L BUN 29 H (9-20) mg/dL Glucose 158 H (74-99) mg/dL POC Glucose (mg/dL) 242 H (70-110) mg/dL Total Protein 6.2 L (6.3-8.2) g/dL Microbiology - Last 24 Hours (Table) 08/02/22 12:15 Gram Stain - Final Bronchial Washings - Right Bronchial Washings Culture - Final 08/02/22 12:15 Acid Fast Bacilli Smear - Final Bronchial Washings - Right Acid Fast Bacilli Culture - Preliminary 07/29/22 14:23 Blood Culture - Preliminary Blood No Growth after 120 hours 07/29/22 14:23 Blood Culture - Preliminary Blood No Growth after 120 hours Assessment and Plan Plan: Acute on chronic hypoxemic respiratory failure secondary to an acute multilobar pneumonia more so in the left lung base. Bronchoscopy with BAL performed on 08/02/2022. Cultures and cytology pending. Hemoptysis secondary to above Troponin leak Moderate to severe pulmonary hypertension History of aortic valve replacement with bioprosthetic valve History of atrial fibrillation, anticoagulated with Eliquis History of stable dissection of the descending aorta Coronary disease with previous bypass surgery, previous stent placement Chronic obstructive pulmonary disease, oxygen dependent Chronic tobacco dependence History of liver cirrhosis secondary to alcoholism History of prostate cancer status post prostatectomy History of right lower lobe DVT History of macular degeneration Hyperlipidemia Hypertension Clinically improving currently on 2 L O2 nasal cannula Continue same treatment and repeat chest x-ray for tomorrow We'll start the patient on prednisone burst taper as of tomorrow He has home O2 at 2 L per minute nasal cannula We'll continue to follow
[2022-08-04 13:13] VITALS: BMI 30.2
--- NOTE | 2022-08-04 14:23 | P.PN ---
Subjective Patient seen and examined at bedside. Patient denies chest pain. Patient has persistent shortness of breath and cough. However patient states that is slowly feeling better. Patient denies fevers or chills. Patient continues to be on antibiotics. Objective - Vital Signs Vital signs: Vital Signs Temp 98.3 F 08/04/22 04:00 Pulse 82 08/04/22 12:00 Resp 16 08/04/22 12:00 BP 114/62 08/04/22 12:00 Pulse Ox 92 L 08/04/22 12:00 FiO2 Intake & Output 08/03/22 08/04/22 08/04/22 18:59 06:59 18:59 Intake Total 740 180 Balance 740 180 Weight 92.8 kg 92.8 kg Intake: Intake, IV Titration 200 Amount Piperacillin-Tazobactam 3 200 .375 gm In Sodium Chloride 0.9% 100 ml @ 25 mls/hr IVPB Q8HR [facility] Rx# :[id number] Oral 540 180 Other: Voiding Method Urinal Urinal Urinal # Voids 1 1 - Exam General: [non toxic], [no distress], [appears at stated age] Derm: [warm], [dry] Head: [atraumatic], [normocephalic], [symmetric] Eyes: [EOMI], [no lid lag], [anicteric sclera] Mouth: [no lip lesion], [mucus membranes moist] Cardiovascular: [S1S2 reg], [no murmur], [positive posterior tibial pulse bilateral], Lungs: [Bilateral expiratory wheezing] , [no accessory muscle use] Abdominal: [soft], [ nontender to palpation], [no guarding], [no appreciable organomegaly] Ext: [no gross muscle atrophy], [no edema], [no contractures] Neuro: [ CN II-XI grossly intact], [no focal neuro deficits] Psych: [Alert], [oriented], [appropriate affect] . - Labs CBC & Chem 7: 08/04/22 08:44 08/04/22 08:44 Labs: Abnormal Lab Results - Last 24 Hours (Table) 08/03/22 08/03/22 08/04/22 Range/Units 16:38 19:59 06:08 RBC (4.30-5.90) m/uL Hgb (13.0-17.5) gm/dL Hct (39.0-53.0) % RDW (11.5-15.5) % Lymphocytes # (1.0-4.8) k/uL Carbon Dioxide (22-30) mmol/L BUN (9-20) mg/dL Glucose (74-99) mg/dL POC Glucose (mg/dL) 172 H 164 H 151 H (70-110) mg/dL Total Protein (6.3-8.2) g/dL 08/04/22 08/04/22 08/04/22 Range/Units 08:44 08:44 11:38 RBC 3.50 L (4.30-5.90) m/uL Hgb 9.8 L (13.0-17.5) gm/dL Hct 31.5 L (39.0-53.0) % RDW 16.8 H (11.5-15.5) % Lymphocytes # 0.5 L (1.0-4.8) k/uL Carbon Dioxide 34 H (22-30) mmol/L BUN 29 H (9-20) mg/dL Glucose 158 H (74-99) mg/dL POC Glucose (mg/dL) 242 H (70-110) mg/dL Total Protein 6.2 L (6.3-8.2) g/dL Microbiology - Last 24 Hours (Table) 08/02/22 12:15 Gram Stain - Final Bronchial Washings - Right Bronchial Washings Culture - Final 08/02/22 12:15 Acid Fast Bacilli Smear - Final Bronchial Washings - Right Acid Fast Bacilli Culture - Preliminary 07/29/22 14:23 Blood Culture - Preliminary Blood No Growth after 120 hours 07/29/22 14:23 Blood Culture - Preliminary Blood No Growth after 120 hours Assessment and Plan Assessment: Acute on chronic hypoxic respiratory failure Hemoptysis Health care associated pneumonia Acute COPD exacerbation Possible aspiration pneumonia Sputum cx and MRSA nasal screen negative, discontinue vancomycin Blood cultures no growth to date Procal 1.34. Continue zosyn, steroids and bronchodilators Oxygen to keep sats above 92%. Pulm following, patient had a bronchoscopy with lavage on 08/02/22 due to lack of improvement. Pulmonary recs appreciated Chronic congestive heart failure Stable Chronic atrial Fibrillation, Coronary Artery Disease (CAD), GERD/Reflux, GI Bleed, Hyperlipidemia, Hypertension, Stable dissection of the descending aorta, Pulmonary hypertension, Prostate cancer with prostatectomy, Macular degeneration L eye, left arm fracture, Liver cirrhosis related to history of alcoholism, All stable resume meds Anticipated discharge back home hopefully tomorrow once transitioned to oral prednisone taper and review of chest x-ray
[2022-08-04 16:26] LABS: Glucose,Whole Blood 111 mg/dL (70-110)
[2022-08-04] MEDS: MIRTAZAPINE 15 MG TAB PO SCH (20:01)
[2022-08-04] MEDS: ATORVASTATIN 20 MG TAB PO SCH (20:02)
[2022-08-04 20:26] LABS: Glucose,Whole Blood 250 mg/dL (70-110)
[2022-08-05 00:13] VITALS: RESP 20
[2022-08-05] MEDS: LEVOTHYROXINE 50 MCG TAB PO SCH (05:47)
[2022-08-05] MEDS: PANTOPRAZOLE 40 MG TABLET PO SCH (05:47)
[2022-08-05] MEDS: methylPREDNISolone SOD SUCCI 40 MG/ML 1 ML VIAL IV SCH ×4 (05:47→23:15)
[2022-08-05 05:58] LABS: Glucose,Whole Blood 114 mg/dL (70-110)
[2022-08-05] MEDS: INSULIN ASPART (NovoLOG) 100 UNIT/ML VIAL SQ SCH ×4 (06:05→20:17)
--- NOTE | 2022-08-05 08:22 | XR ---
EXAMINATION TYPE: XR chest 1V portable DATE OF EXAM: 08/05/2022 Comparison: 08/01/2022 Clinical History: 72-year-old male shortness of breath Findings: Median sternotomy wires are present. Prosthetic aortic valve. Heart remains mild to moderately enlarg ed. Diffuse interstitial opacities remain. Retrocardiac opacity shows slight interval worsening. Mult iple surgical clips high in the right axilla. Impression: Similar cardiomegaly and persisting mild interstitial edema. Worsening airspace disease retrocardiac left base.
[2022-08-05] MEDS: FORMOTEROL FUMARATE 20 MCG/2 ML NEBU INHALATION SCH ×2 (08:32→20:15)
[2022-08-05] MEDS: BUDESONIDE 1 MG/2 ML NEBU INHALATION SCH ×2 (08:32→20:15)
[2022-08-05] MEDS: IPRATROPIUM-ALBUTEROL 3 ML NEB INHALATION SCH ×4 (08:33→20:15)
[2022-08-05 09:03] LABS: Anisocytosis Slight; Basophils % (A) 0 %; Eosinophils # (A) 0.1 k/uL (0-0.7); Eosinophils % (A) 1 %; HCT 32.5 % (39.0-53.0); HGB 10.1 gm/dL (13.0-17.5); Hypochromasia Marked; Lymphocytes # (A) 1.2 k/uL (1.0-4.8); Lymphocytes % (A) 12 %; MCH 28.3 pg (25.0-35.0); MCHC 31.1 g/dL (31.0-37.0); Monocytes # (A) 0.6 k/uL (0-1.0); Monocytes % (A) 6 %; Neutrophils # (A) 7.9 k/uL (1.3-7.7); Neutrophils % (A) 80 %; Platelet Count 191 k/uL (150-450); RBC 3.57 m/uL (4.30-5.90); RDW 16.7 % (11.5-15.5); WBC 9.9 k/uL (3.8-10.6)
[2022-08-05] MEDS: THIAMINE 100 MG TAB PO SCH (09:21)
[2022-08-05] MEDS: APIXABAN 5 MG TAB PO SCH ×2 (09:21→20:21)
[2022-08-05] MEDS: ESCITALOPRAM 20 MG TAB PO SCH (09:21)
[2022-08-05] MEDS: PIPERACILLIN-TAZOBACTAM 3.375 GM in SODIUM CHLORIDE 0.9% 100 ML IVPB SCH ×3 (09:21→23:15)
[2022-08-05] MEDS: FUROSEMIDE 40 MG TAB PO SCH (09:21)
[2022-08-05] MEDS: METOPROLOL TARTRATE 12.5 MG TAB PO SCH ×2 (09:21→20:21)
[2022-08-05 09:27] LABS: Albumin 3.7 g/dL (3.5-5.0); Calcium 8.3 mg/dL (8.4-10.2); Potassium 3.8 mmol/L (3.5-5.1); Total Bilirubin 0.5 mg/dL (0.2-1.3); Total Protein 6.6 g/dL (6.3-8.2)
[2022-08-05] MEDS: SILDENAFIL 20 MG TAB PO SCH ×3 (10:07→20:58)
--- NOTE | 2022-08-05 10:26 | P.PN ---
Subjective Progress Note Date: 08/05/22 This a very pleasant 72-year-old male patient who follows with the [facility] for his primary care needs. He has a history of multiple medical problems including digestive heart failure, severe COPD, severe pulmonary hypertension, coronary artery disease, with a previous stent to the LAD, atrial fibrillation, previous aortic valve replacement, hyperlipidemia, and previous heavy tobacco use. The patient is seen today in the emergency room after coming in this morning with a 2-3 day history of increasing shortness of breath, cough or congestion. He had choked on food earlier in the week. He is having some right red blood in his sputum. He did have a fever of 101.3, 99.9 at home according to his son who is present. He does have oxygen dependent chronic obstructive pulmonary disease and is usually on oxygen at 2 L. His O2 saturations were noted to be in the mid 80s and subsequently recovered in the 90s. He is currently on 4 L/m per nasal cannula. Current temperature 99.6. Chest x-ray revealing a left lower lobe consolidation and some mild nonspecific infiltrate changes in the right lung base. White count 8.0. Hemoglobin 9.3. Platelet count 110,000. Sodium 141 potassium 4.0. BUN 22. Creatinine 1.11. Glucose 102. Troponin 0.189. ProBNP 2930. Influenza screen negative. RSV screen negative. COVID-19 screen negative. He's been initiated and DuoNeb inhalations, Symbicort, IV Solu- Medrol. Antibiotics in the form of vancomycin and Zosyn. He is anticoagulated with Eliquis. The patient is seen today 07/30/2022 in follow-up on the selective care unit. He is currently sitting up in bed. Awake and alert in no acute distress. Maintaining good O2 saturations in the mid 90s on 2 L/m per nasal cannula. He's been initiated on vancomycin and Zosyn. Sputum cultures pending. Pro- calcitonin was 1.34. Chest x-ray reveals similar patchy left basilar airspace disease with coarsened interstitial markings concerning for pneumonia. Small left pleural effusion. Echocardiogram revealed mildly impaired left ventricular systolic function with ejection fraction 45-50%. Mild to moderate pulmonary hypertension. Mild aortic stenosis. White count 7.2. Hemoglobin 10.1. Juan Jose telets 125. Sodium 143. Potassium 4.3. BUN 19. Creatinine 0.85. The patient is seen today 08/01/2022 in follow-up on the selective care unit. He is awake and alert in no acute distress. Sitting up in bed. He is still quite congested. Still bringing up some blood-tinged sputum. Maintaining O2 saturations in the 90s on 4 L/m per nasal cannula. He is continued on DuoNeb inhalations, Pulmicort and Perforomist inhalations, IV Solu-Medrol. Remains on oral diuretics. Remains on antibiotics in the form of Zosyn. Remains anticoagulated with Eliquis. His chest x-ray continues to show bilateral airspace opacities. Cardiomegaly and mild pulmonary vascular congestion. Blood culture revealed no growth. Sputum cultures revealed no growth. Blood sugar 183. The patient is seen today 08/02/2022 in follow-up on the selective care unit. He is up ambulating in his room. No worsening shortness of breath, cough or congestion. Still with some blood-tinged sputum. Plan is for bronchoscopy with BAL today. He is continued on DuoNeb inhalations, Pulmicort and Perforomist inhalations, IV Solu-Medrol. Remains on oral diuretics. Continued on Zosyn. Remains anticoagulated with Eliquis. White count 6.2. Hemoglobin 9.2. Platelets 139. Sodium 144. Potassium 4.8. Bicarb 34. BUN 29. Creatinine 1.19. Glucose 157. ProBNP 3070. The patient is seen today 08/03/2022 in follow-up on the selective care unit. He is currently resting comfortably in bed. Awake and alert in no acute distress. He did undergo bronchoscopy with BAL yesterday. Cultures and cytology are pending. At sugar 173. He's been on bronchodilators, IV Solu-Medrol. Antibiotics in the form of Zosyn. Antibiotics in the form of Eliquis. On 08/04/2022, the patient is feeling well. He is on oxygen at 2 L/m nasal cannula. He remains on IV Zosyn. His post-bronchoscopy and a bronchioloalveolar lavage was also done and the cultures came back all negative for now. The patient also was negative for influenza A and B and Covid 19 was negative RSV was negative. The most recent chest x-ray was from 08/01/2022 and it showed airspace disease related to pneumonia along with cardiomegaly and pulmonary vascular congestion. His echocardiogram that was also done on 07/30/2022 showed a preserved LV function, mild aortic stenosis otherwise no other acute abnormalities have been noted. The patient remains on DuoNeb about treatments [id number], IV Solu-Medrol 40 mg every 6 hours, IV Zosyn and is also on long-term anticoagulants with Eliquis. His white cell count today is at 7.7 with a hemoglobin 9.8 and a platelet count of 154. Rest of the chemistry is showing a BUN of 29 with a creatinine 1.1 and sodium level of 143, LFTs are normal. On 2022, the patient is stable on 3 L oxygen nasal cannula. No new complaints. As mentioned earlier, the patient pneumonia, bilaterally patient underwent a bronchoscopy and all of the cultures came back negative including bacteria and viral cultures. Remains on DuoNeb. Remains on IV Solu-Medrol. He is completing a course of Zosyn for now. A repeat chest x-ray was done today and a chest x-ray showed cardiomegaly and persistent mild interstitial edema. There is also airspace disease in the left retrocardiac area. The patient remains on IV Zosyn for now. Remains on IV Solu-Medrol. No significant issues otherwise for now. The response of 9.9 with a hemoglobin of 10.1. BUN is at 24 with a creatinine of 1.08 and these are labs are from yesterday. Objective - Vital Signs Vital signs: Vital Signs Temp 98.4 F 08/05/22 09:14 Pulse 71 08/05/22 09:14 Resp 20 08/05/22 09:14 BP 131/73 08/05/22 09:14 Pulse Ox 93 L 08/05/22 09:14 FiO2 Intake & Output 08/04/22 08/05/22 08/05/22 18:59 06:59 18:59 Intake Total 540 320 118 Balance 540 320 118 Weight 92.8 kg Intake: Intake, IV Titration 200 Amount Piperacillin-Tazobactam 3 200 .375 gm In Sodium Chloride 0.9% 100 ml @ 25 mls/hr IVPB Q8HR [facility] Rx# :[id number] Oral 540 120 118 Other: Voiding Method Urinal Urinal Urinal # Voids 2 - Exam GENERAL EXAM: Alert, 72-year-old male, resting comfortably in bed, on 3 L nasal cannula, fairly comfortable in no apparent distress. HEAD: Normocephalic. EYES: Normal reaction of pupils, equal size. NOSE: Clear with pink turbinates. THROAT: No erythema or exudates. NECK: No masses, no JVD. CHEST: No chest wall deformity. LUNGS: Equal air entry with bilateral scattered rhonchi, end expiratory wheeze. CVS: S1 and S2 normal with no audible murmur, regular rhythm. ABDOMEN: No hepatosplenomegaly, normal bowel sounds, no guarding or rigidity. SPINE: No scoliosis or deformity SKIN: No rashes CENTRAL NERVOUS SYSTEM: No focal deficits, tone is normal in all 4 extremities. EXTREMITIES: There is no peripheral edema. No clubbing, no cyanosis. Peripheral pulses are intact. - Labs CBC & Chem 7: 08/05/22 08:21 08/05/22 08:21 Labs: Abnormal Lab Results - Last 24 Hours (Table) 08/02/22 08/04/22 08/04/22 Range/Units 12:15 11:38 16:24 RBC (4.30-5.90) m/uL Hgb (13.0-17.5) gm/dL Hct (39.0-53.0) % RDW (11.5-15.5) % Neutrophils # (1.3-7.7) k/uL Carbon Dioxide (22-30) mmol/L BUN (9-20) mg/dL POC Glucose (mg/dL) 242 H 111 H (70-110) mg/dL Calcium (8.4-10.2) mg/dL Viral Test See Below A 08/04/22 08/05/22 08/05/22 Range/Units 20:24 05:55 08:21 RBC 3.57 L (4.30-5.90) m/uL Hgb 10.1 L (13.0-17.5) gm/dL Hct 32.5 L (39.0-53.0) % RDW 16.7 H (11.5-15.5) % Neutrophils # 7.9 H (1.3-7.7) k/uL Carbon Dioxide (22-30) mmol/L BUN (9-20) mg/dL POC Glucose (mg/dL) 250 H 114 H (70-110) mg/dL Calcium (8.4-10.2) mg/dL Viral Test 08/05/22 Range/Units 08:21 RBC (4.30-5.90) m/uL Hgb (13.0-17.5) gm/dL Hct (39.0-53.0) % RDW (11.5-15.5) % Neutrophils # (1.3-7.7) k/uL Carbon Dioxide 36 H (22-30) mmol/L BUN 24 H (9-20) mg/dL POC Glucose (mg/dL) (70-110) mg/dL Calcium 8.3 L (8.4-10.2) mg/dL Viral Test Microbiology - Last 24 Hours (Table) 07/29/22 14:23 Blood Culture - Final Blood No Growth after 144 hours 07/29/22 14:23 Blood Culture - Final Blood No Growth after 144 hours 08/02/22 12:15 Gram Stain - Final Bronchial Washings - Right Bronchial Washings Culture - Final Assessment and Plan Plan: Acute on chronic hypoxemic respiratory failure secondary to an acute multilobar pneumonia more so in the left lung base. Bronchoscopy with BAL performed on 08/02/2022. Cultures and cytology pending. Hemoptysis secondary to above Troponin leak Moderate to severe pulmonary hypertension History of aortic valve replacement with bioprosthetic valve History of atrial fibrillation, anticoagulated with Eliquis History of stable dissection of the descending aorta Coronary disease with previous bypass surgery, previous stent placement Chronic obstructive pulmonary disease, oxygen dependent Chronic tobacco dependence History of liver cirrhosis secondary to alcoholism History of prostate cancer status post prostatectomy History of right lower lobe DVT History of macular degeneration Hyperlipidemia Hypertension Overall condition is stable and the patient is currently between 2 and 3 L nasal cannula Chest X is still showing a persistent area of consolidation left lower lobe Continue IV Solu-Medrol for another 24 hours and put the patient on prednisone burst taper as of tomorrow He has home O2 at 2 L per minute nasal cannula We'll continue to follow
[2022-08-05 11:57] LABS: Glucose,Whole Blood 117 mg/dL (70-110)
--- NOTE | 2022-08-05 15:45 | P.PN ---
Subjective Progress Note Date: 08/05/22 Patient seen and examined at bedside. Patient states that her shortness of breath is improving. Patient denies chest pain nausea vomiting fever or chills. Objective - Vital Signs Vital signs: Vital Signs Temp 98.5 F 08/05/22 12:09 Pulse 60 08/05/22 13:08 Resp 20 08/05/22 12:09 BP 122/74 08/05/22 12:09 Pulse Ox 93 L 08/05/22 12:09 FiO2 Intake & Output 08/04/22 08/05/22 08/05/22 18:59 06:59 18:59 Intake Total 540 320 236 Balance 540 320 236 Weight 92.8 kg Intake: Intake, IV Titration 200 Amount Piperacillin-Tazobactam 3 200 .375 gm In Sodium Chloride 0.9% 100 ml @ 25 mls/hr IVPB Q8HR [facility] Rx# :[id number] Oral 540 120 236 Other: Voiding Method Urinal Urinal Urinal # Voids 2 1 - Exam General: [non toxic], [no distress], [appears at stated age] Derm: [warm], [dry] Head: [atraumatic], [normocephalic], [symmetric] Eyes: [EOMI], [no lid lag], [anicteric sclera] Mouth: [no lip lesion], [mucus membranes moist] Cardiovascular: [S1S2 reg], [no murmur], [positive posterior tibial pulse bilateral], Lungs: [Bilateral expiratory wheezing] , [no accessory muscle use] Abdominal: [soft], [ nontender to palpation], [no guarding], [no appreciable organomegaly] Ext: [no gross muscle atrophy], [no edema], [no contractures] Neuro: [ CN II-XI grossly intact], [no focal neuro deficits] Psych: [Alert], [oriented], [appropriate affect] - Labs CBC & Chem 7: 08/05/22 08:21 08/05/22 08:21 Labs: Abnormal Lab Results - Last 24 Hours (Table) 08/02/22 08/04/22 08/04/22 Range/Units 12:15 16:24 20:24 RBC (4.30-5.90) m/uL Hgb (13.0-17.5) gm/dL Hct (39.0-53.0) % RDW (11.5-15.5) % Neutrophils # (1.3-7.7) k/uL Carbon Dioxide (22-30) mmol/L BUN (9-20) mg/dL POC Glucose (mg/dL) 111 H 250 H (70-110) mg/dL Calcium (8.4-10.2) mg/dL Viral Test See Below A 08/05/22 08/05/22 08/05/22 Range/Units 05:55 08:21 08:21 RBC 3.57 L (4.30-5.90) m/uL Hgb 10.1 L (13.0-17.5) gm/dL Hct 32.5 L (39.0-53.0) % RDW 16.7 H (11.5-15.5) % Neutrophils # 7.9 H (1.3-7.7) k/uL Carbon Dioxide 36 H (22-30) mmol/L BUN 24 H (9-20) mg/dL POC Glucose (mg/dL) 114 H (70-110) mg/dL Calcium 8.3 L (8.4-10.2) mg/dL Viral Test 08/05/22 Range/Units 11:47 RBC (4.30-5.90) m/uL Hgb (13.0-17.5) gm/dL Hct (39.0-53.0) % RDW (11.5-15.5) % Neutrophils # (1.3-7.7) k/uL Carbon Dioxide (22-30) mmol/L BUN (9-20) mg/dL POC Glucose (mg/dL) 117 H (70-110) mg/dL Calcium (8.4-10.2) mg/dL Viral Test Microbiology - Last 24 Hours (Table) 07/29/22 14:23 Blood Culture - Final Blood No Growth after 144 hours 07/29/22 14:23 Blood Culture - Final Blood No Growth after 144 hours 08/02/22 12:15 Gram Stain - Final Bronchial Washings - Right Bronchial Washings Culture - Final Assessment and Plan Assessment: Acute on chronic hypoxic respiratory failure Hemoptysis Health care associated pneumonia Acute COPD exacerbation Possible aspiration pneumonia Sputum cx and MRSA nasal screen negative, discontinue vancomycin Blood cultures no growth to date Procal 1.34. Continue zosyn, steroids and bronchodilators Oxygen to keep sats above 92%. Pulm following, patient had a bronchoscopy with lavage on 08/02/22 due to lack of improvement. Per pulmonary: Continue IV Solu-Medrol for another 24 hours and transition to oral prednisone burst taper tomorrow Pulmonary recs appreciated Chronic congestive heart failure Stable Chronic atrial Fibrillation, Coronary Artery Disease (CAD), GERD/Reflux, GI Bleed, Hyperlipidemia, Hypertension, Stable dissection of the descending aorta, Pulmonary hypertension, Prostate cancer with prostatectomy, Macular degeneration L eye, left arm fracture, Liver cirrhosis related to history of alcoholism, All stable resume meds Anticipated discharge back home tomorrow once cleared by pulmonology
[2022-08-05 16:32] LABS: Albumin 3.4 g/dL (3.5-5.0); Potassium 4.4 mmol/L (3.5-5.1); Total Bilirubin 0.5 mg/dL (0.2-1.3); Total Protein 6.1 g/dL (6.3-8.2)
[2022-08-05 17:08] LABS: Glucose,Whole Blood 180 mg/dL (70-110)
[2022-08-05 20:08] LABS: Glucose,Whole Blood 182 mg/dL (70-110)
[2022-08-05] MEDS: ATORVASTATIN 20 MG TAB PO SCH (20:21)
[2022-08-05] MEDS: MIRTAZAPINE 15 MG TAB PO SCH (20:21)
[2022-08-06] MEDS: PANTOPRAZOLE 40 MG TABLET PO SCH (05:04)
[2022-08-06] MEDS: methylPREDNISolone SOD SUCCI 40 MG/ML 1 ML VIAL IV SCH (05:04)
[2022-08-06] MEDS: LEVOTHYROXINE 50 MCG TAB PO SCH (05:04)
[2022-08-06 06:01] LABS: Glucose,Whole Blood 134 mg/dL (70-110)
[2022-08-06] MEDS: INSULIN ASPART (NovoLOG) 100 UNIT/ML VIAL SQ SCH ×2 (06:11→12:05)
[2022-08-06] MEDS: ESCITALOPRAM 20 MG TAB PO SCH (08:05)
[2022-08-06] MEDS: METOPROLOL TARTRATE 12.5 MG TAB PO SCH (08:05)
[2022-08-06] MEDS: APIXABAN 5 MG TAB PO SCH (08:05)
[2022-08-06] MEDS: THIAMINE 100 MG TAB PO SCH (08:05)
[2022-08-06] MEDS: FUROSEMIDE 40 MG TAB PO SCH (08:05)
[2022-08-06] MEDS: FORMOTEROL FUMARATE 20 MCG/2 ML NEBU INHALATION SCH (08:31)
[2022-08-06] MEDS: IPRATROPIUM-ALBUTEROL 3 ML NEB INHALATION SCH ×3 (08:31→15:30)
[2022-08-06] MEDS: BUDESONIDE 1 MG/2 ML NEBU INHALATION SCH (08:31)
[2022-08-06] MEDS: SILDENAFIL 20 MG TAB PO SCH (08:38)
[2022-08-06 08:53] LABS: Anisocytosis Slight; Basophils % (A) 0 %; Eosinophils # (A) 0.1 k/uL (0-0.7); Eosinophils % (A) 1 %; HCT 32.6 % (39.0-53.0); Hypochromasia Marked; Lymphocytes # (A) 1.1 k/uL (1.0-4.8); Lymphocytes % (A) 11 %; MCH 27.7 pg (25.0-35.0); MCHC 30.6 g/dL (31.0-37.0); MCV 90.5 fL (80.0-100.0); Mean Platelet Volume 9.3; Monocytes # (A) 0.6 k/uL (0-1.0); Monocytes % (A) 5 %; Neutrophils # (A) 8.4 k/uL (1.3-7.7); Neutrophils % (A) 81 %; Platelet Count 182 k/uL (150-450); WBC 10.3 k/uL (3.8-10.6)
--- NOTE | 2022-08-06 10:58 | P.PN ---
Subjective Progress Note Date: 08/06/22 This a very pleasant 72-year-old male patient who follows with the [facility] for his primary care needs. He has a history of multiple medical problems including digestive heart failure, severe COPD, severe pulmonary hypertension, coronary artery disease, with a previous stent to the LAD, atrial fibrillation, previous aortic valve replacement, hyperlipidemia, and previous heavy tobacco use. The patient is seen today in the emergency room after coming in this morning with a 2-3 day history of increasing shortness of breath, cough or congestion. He had choked on food earlier in the week. He is having some right red blood in his sputum. He did have a fever of 101.3, 99.9 at home according to his son who is present. He does have oxygen dependent chronic obstructive pulmonary disease and is usually on oxygen at 2 L. His O2 saturations were noted to be in the mid 80s and subsequently recovered in the 90s. He is currently on 4 L/m per nasal cannula. Current temperature 99.6. Chest x-ray revealing a left lower lobe consolidation and some mild nonspecific infiltrate changes in the right lung base. White count 8.0. Hemoglobin 9.3. Platelet count 110,000. Sodium 141 potassium 4.0. BUN 22. Creatinine 1.11. Glucose 102. Troponin 0.189. ProBNP 2930. Influenza screen negative. RSV screen negative. COVID-19 screen negative. He's been initiated and DuoNeb inhalations, Symbicort, IV Solu- Medrol. Antibiotics in the form of vancomycin and Zosyn. He is anticoagulated with Eliquis. The patient is seen today 07/30/2022 in follow-up on the selective care unit. He is currently sitting up in bed. Awake and alert in no acute distress. Maintaining good O2 saturations in the mid 90s on 2 L/m per nasal cannula. He's been initiated on vancomycin and Zosyn. Sputum cultures pending. Pro- calcitonin was 1.34. Chest x-ray reveals similar patchy left basilar airspace disease with coarsened interstitial markings concerning for pneumonia. Small left pleural effusion. Echocardiogram revealed mildly impaired left ventricular systolic function with ejection fraction 45-50%. Mild to moderate pulmonary hypertension. Mild aortic stenosis. White count 7.2. Hemoglobin 10.1. Juan Jose telets 125. Sodium 143. Potassium 4.3. BUN 19. Creatinine 0.85. The patient is seen today 08/01/2022 in follow-up on the selective care unit. He is awake and alert in no acute distress. Sitting up in bed. He is still quite congested. Still bringing up some blood-tinged sputum. Maintaining O2 saturations in the 90s on 4 L/m per nasal cannula. He is continued on DuoNeb inhalations, Pulmicort and Perforomist inhalations, IV Solu-Medrol. Remains on oral diuretics. Remains on antibiotics in the form of Zosyn. Remains anticoagulated with Eliquis. His chest x-ray continues to show bilateral airspace opacities. Cardiomegaly and mild pulmonary vascular congestion. Blood culture revealed no growth. Sputum cultures revealed no growth. Blood sugar 183. The patient is seen today 08/02/2022 in follow-up on the selective care unit. He is up ambulating in his room. No worsening shortness of breath, cough or congestion. Still with some blood-tinged sputum. Plan is for bronchoscopy with BAL today. He is continued on DuoNeb inhalations, Pulmicort and Perforomist inhalations, IV Solu-Medrol. Remains on oral diuretics. Continued on Zosyn. Remains anticoagulated with Eliquis. White count 6.2. Hemoglobin 9.2. Platelets 139. Sodium 144. Potassium 4.8. Bicarb 34. BUN 29. Creatinine 1.19. Glucose 157. ProBNP 3070. The patient is seen today 08/03/2022 in follow-up on the selective care unit. He is currently resting comfortably in bed. Awake and alert in no acute distress. He did undergo bronchoscopy with BAL yesterday. Cultures and cytology are pending. At sugar 173. He's been on bronchodilators, IV Solu-Medrol. Antibiotics in the form of Zosyn. Antibiotics in the form of Eliquis. On 08/04/2022, the patient is feeling well. He is on oxygen at 2 L/m nasal cannula. He remains on IV Zosyn. His post-bronchoscopy and a bronchioloalveolar lavage was also done and the cultures came back all negative for now. The patient also was negative for influenza A and B and Covid 19 was negative RSV was negative. The most recent chest x-ray was from 08/01/2022 and it showed airspace disease related to pneumonia along with cardiomegaly and pulmonary vascular congestion. His echocardiogram that was also done on 07/30/2022 showed a preserved LV function, mild aortic stenosis otherwise no other acute abnormalities have been noted. The patient remains on DuoNeb about treatments [id number], IV Solu-Medrol 40 mg every 6 hours, IV Zosyn and is also on long-term anticoagulants with Eliquis. His white cell count today is at 7.7 with a hemoglobin 9.8 and a platelet count of 154. Rest of the chemistry is showing a BUN of 29 with a creatinine 1.1 and sodium level of 143, LFTs are normal. On 2022, the patient is stable on 3 L oxygen nasal cannula. No new complaints. As mentioned earlier, the patient pneumonia, bilaterally patient underwent a bronchoscopy and all of the cultures came back negative including bacteria and viral cultures. Remains on DuoNeb. Remains on IV Solu-Medrol. He is completing a course of Zosyn for now. A repeat chest x-ray was done today and a chest x-ray showed cardiomegaly and persistent mild interstitial edema. There is also airspace disease in the left retrocardiac area. The patient remains on IV Zosyn for now. Remains on IV Solu-Medrol. No significant issues otherwise for now. The response of 9.9 with a hemoglobin of 10.1. BUN is at 24 with a creatinine of 1.08 and these are labs are from yesterday. On 08/06/2022, the patient is doing well on oxygen at 3 L. Feeling well. No specific complaints. The results of the bronchoscopy and bronchoalveolar lavage that was on a showed some yeast species. Otherwise no other bacterial growth. He is responding well to the combination of bronchodilators and steroids. He was also covered with IV Zosyn. Blood work from today shows a WBC count 10.3 with a hemoglobin of 10 and a platelet count of 182. No other issues for now. He has a nebulizer at home. Utilizes DuoNeb neb at home. He also utilizes Symbicort. Objective - Vital Signs Vital signs: Vital Signs Temp 98.4 F 08/06/22 07:46 Pulse 87 08/06/22 08:53 Resp 20 08/06/22 07:46 BP 159/72 08/06/22 07:46 Pulse Ox 91 L 08/06/22 07:46 FiO2 Intake & Output 08/05/22 08/06/22 08/06/22 18:59 06:59 18:59 Intake Total 354 240 118 Balance 354 240 118 Intake: Oral 354 240 118 Other: Voiding Method Urinal Urinal Toilet # Voids 1 1 1 # Bowel Movements 1 - Exam GENERAL EXAM: Alert, 72-year-old male, resting comfortably in bed, on 3 L nasal cannula, fairly comfortable in no apparent distress. HEAD: Normocephalic. EYES: Normal reaction of pupils, equal size. NOSE: Clear with pink turbinates. THROAT: No erythema or exudates. NECK: No masses, no JVD. CHEST: No chest wall deformity. LUNGS: Equal air entry with bilateral scattered rhonchi, end expiratory wheeze. CVS: S1 and S2 normal with no audible murmur, regular rhythm. ABDOMEN: No hepatosplenomegaly, normal bowel sounds, no guarding or rigidity. SPINE: No scoliosis or deformity SKIN: No rashes CENTRAL NERVOUS SYSTEM: No focal deficits, tone is normal in all 4 extremities. EXTREMITIES: There is no peripheral edema. No clubbing, no cyanosis. Peripheral pulses are intact. - Labs CBC & Chem 7: 08/06/22 08:10 08/05/22 15:56 Labs: Abnormal Lab Results - Last 24 Hours (Table) 08/05/22 08/05/22 08/05/22 Range/Units 11:47 15:56 17:05 RBC (4.30-5.90) m/uL Hgb (13.0-17.5) gm/dL Hct (39.0-53.0) % MCHC (31.0-37.0) g/dL RDW (11.5-15.5) % Neutrophils # (1.3-7.7) k/uL Carbon Dioxide 34 H (22-30) mmol/L BUN 26 H (9-20) mg/dL Glucose 169 H (74-99) mg/dL POC Glucose (mg/dL) 117 H 180 H (70-110) mg/dL Calcium 8.0 L (8.4-10.2) mg/dL Total Protein 6.1 L (6.3-8.2) g/dL Albumin 3.4 L (3.5-5.0) g/dL 08/05/22 08/06/22 08/06/22 Range/Units 20:07 05:59 08:10 RBC 3.60 L (4.30-5.90) m/uL Hgb 10.0 L (13.0-17.5) gm/dL Hct 32.6 L (39.0-53.0) % MCHC 30.6 L (31.0-37.0) g/dL RDW 17.0 H (11.5-15.5) % Neutrophils # 8.4 H (1.3-7.7) k/uL Carbon Dioxide (22-30) mmol/L BUN (9-20) mg/dL Glucose (74-99) mg/dL POC Glucose (mg/dL) 182 H 134 H (70-110) mg/dL Calcium (8.4-10.2) mg/dL Total Protein (6.3-8.2) g/dL Albumin (3.5-5.0) g/dL Microbiology - Last 24 Hours (Table) 08/02/22 12:15 Fungal Culture - Preliminary Bronchial Washings - Right Yeast species Assessment and Plan Plan: Acute on chronic hypoxemic respiratory failure secondary to an acute multilobar pneumonia more so in the left lung base. Bronchoscopy with BAL performed on 08/02/2022. Cultures are all negative. Clinically the patient is improved on 3 L of oxygen by nasal cannula Hemoptysis secondary to above, recovered Troponin leak Moderate to severe pulmonary hypertension History of aortic valve replacement with bioprosthetic valve History of atrial fibrillation, anticoagulated with Eliquis History of stable dissection of the descending aorta Coronary disease with previous bypass surgery, previous stent placement Chronic obstructive pulmonary disease, oxygen dependent Chronic tobacco dependence History of liver cirrhosis secondary to alcoholism History of prostate cancer status post prostatectomy History of right lower lobe DVT History of macular degeneration Hyperlipidemia Hypertension Overall condition is stable and the patient is currently between 2 and 3 L nasal cannula Chest X is still showing a persistent area of consolidation left lower lobe and this can be followed up on outpatient basis Continue prednisone burst taper as of tomorrow He has home O2 at 2 L per minute nasal cannula The patient should be able to discharged home on Symbicort as maintenance, DuoNeb updrafts [id number], and outpatient follow-up regarding the left lower lobe consolidation. Clinically improved. The bronchoscopy in the lavage came back negative. He has been in the hospital for more than a week. No need for any outpatient antibiotic at this point in time. We'll continue to follow
[2022-08-06 11:25] VITALS: BP 117/77; TEMP 98.8
[2022-08-06 12:03] LABS: Glucose,Whole Blood 115 mg/dL (70-110)
[2022-08-06 13:19] VITALS: PULSE 77
--- NOTE | 2022-08-06 14:28 | P.DS ---
Providers Date of admission: 07/29/22 15:48 Expected date of discharge: 08/06/22 Attending physician: Yane Soto DO Consults: 07/29/22 15:48 Consult Physician Urgent Consulting Provider: [facility] Consult Reason/Comments: nstemi Do you want consulting provider notified?: Yes 07/29/22 15:49 Consult Physician Urgent Consulting Provider: Lázaro Ramey Consult Reason/Comments: acute hemoptysis, CAP, aecopd Do you want consulting provider notified?: Yes Primary care physician: [facility] Hospital Course: Admitting diagnoses: Acute on chronic hypoxic respiratory failure Acute exacerbation COPD Pneumonia Discharge diagnoses: Acute on chronic hypoxic respiratory failure hemoptysis resolved Healthcare associated pneumonia Acute COPD exacerbation CHF compensated Chronic A. fib CAD GERD Hyperlipidemia Hypertension History of prostate cancer with prostatectomy Macular degeneration of left eye Liver cirrhosis related to alcohol Hospital course : 72-year-old male with history of COPD on 2 L, chronic congestive heart failure, possible pulmonary fibrosis, permanent atrial fibrillation, CAD, pulmonary hypertension, TIA presents emergency Department with chief complaint shortness of breath, coughing up blood for the past several days. He brings up clear phlegm as well as blood with coughing. Family reports patient had some choking episodes recently and may have aspirated some food. Patient has had some chest discomfort as well as abdominal pain and nausea. No vomiting. According to his son is at bedside he also had a fever up to 101.3. In the emergency department his O2 saturations were in the low 90s, he was requiring 6 L of nasal cannula. Troponin was 0.189, proBNP 2930. Rest of labs okay. Chest x-ray showed left lower lobe infiltrates as well as some right lower lobe infiltrates as well. He was admitted for further evaluation and management. Physical exam: General: [non toxic], [no distress], [appears at stated age] Derm: [warm], [dry] Head: [atraumatic], [normocephalic], [symmetric] Eyes: [EOMI], [no lid lag], [anicteric sclera] Mouth: [no lip lesion], [mucus membranes moist] Cardiovascular: [S1S2 reg], [no murmur], [positive posterior tibial pulse bilateral], Lungs: [mildrhonchi, no rales] , [no accessory muscle use] Abdominal: [soft], [ nontender to palpation], [no guarding], [no appreciable organomegaly] Ext: [no gross muscle atrophy], [no edema], [no contractures] Neuro: [ CN II-XI grossly intact], [no focal neuro deficits] Psych: [Alert], [oriented], [appropriate affect] Assessment and plan: Acute on chronic hypoxic respiratory failure Hemoptysis Health care associated pneumonia Acute COPD exacerbation Possible aspiration pneumonia Sputum cx and MRSA nasal screen negative, discontinue vancomycin Blood cultures no growth to date Procal 1.34. Continue zosyn, steroids and bronchodilators Oxygen to keep sats above 92%. Pulm followed, patient had a bronchoscopy with lavage on 08/02/22 due to lack of improvement. Cultures were negative. IV steroids transitioned to oral prednisone taper. Patient no longer needs antibiotics since he's been here over week. Continue Symbicort and DuoNeb's as directed. Patient improved with IV antibiotics and steroids. Pulmonary followed Chronic congestive heart failure Stable Chronic atrial Fibrillation, Coronary Artery Disease (CAD), GERD/Reflux, GI Bleed, Hyperlipidemia, Hypertension, Stable dissection of the descending aorta, Pulmonary hypertension, Prostate cancer with prostatectomy, Macular degeneration L eye, left arm fracture, Liver cirrhosis related to history of alcoholism, All stable resume meds Disposition: Home with home care Activity: As tolerated Diet: Cardiac Condition: Stable Up with PCP in 2-7 days Up with pulmonary in 1-2 weeks Patient Condition at Discharge: Stable Plan - Discharge Summary Discharge Rx Participant: No New Discharge Prescriptions: New Ipratropium-Albuterol Nebulize [Duoneb 0.5 mg-3 mg/3 ml Soln] 3 ml INHALATION RT-QID #360 each predniSONE [Deltasone] 40 mg PO DAILY tab predniSONE 10 mg PO DAILY #30 tab Nebulizer [Altera Nebulizer ([address] [employer] Fund I Inhalation device)] 1 inhalation MISCELLANE DIRECTED #1 each Continue Levothyroxine Sodium [Euthyrox] 50 mcg PO DAILY Apixaban [Eliquis] 5 mg PO BID Thiamine [Vitamin B-1] 100 mg PO DAILY Aspirin EC [Ecotrin Low Dose] 81 mg PO DAILY Lidocaine 4% Cream [Lmx 4] 1 applic TOPICAL DAILY PRN PRN Reason: left ankle pain Ipratropium-Albuterol Nebulize [Duoneb 0.5 mg-3 mg/3 ml Soln] 3 ml INHALATION RT-QID PRN #120 each PRN Reason: Shortness Of Breath Budesonide-Formot 160-4.5 Mcg [Symbicort 160-4.5 Mcg Inhaler] 2 puff INHALATION RT-BID #1 each Sildenafil [Revatio] 20 mg PO TID Pantoprazole Sodium 40 mg PO [facility] Mirtazapine [Remeron] 15 mg PO HS Escitalopram Oxalate [Lexapro] 20 mg PO DAILY Atorvastatin [Lipitor] 20 mg PO HS Metoprolol Tartrate [Lopressor] 12.5 mg PO BID Lidocaine 5% Patch [Lidoderm 5% Patch] 1 patch TOPICAL DAILY PRN PRN Reason: low back pain Furosemide [Lasix] 40 mg PO DAILY 30 Days #30 tab Discharge Medication List Apixaban [Eliquis] 5 mg PO BID 08/04/20 [History] Levothyroxine Sodium [Euthyrox] 50 mcg PO DAILY 08/04/20 [History] Aspirin EC [Ecotrin Low Dose] 81 mg PO DAILY 12/24/20 [History] Mirtazapine [Remeron] 15 mg PO HS 12/24/20 [History] Pantoprazole Sodium [address] [facility] 12/24/20 [History] Thiamine [Vitamin B-1] 100 mg PO DAILY 12/24/20 [History] Atorvastatin [Lipitor] 20 mg PO HS 10/15/21 [History] Escitalopram Oxalate [Lexapro] 20 mg PO DAILY 10/15/21 [History] Lidocaine 4% Cream [Lmx 4] 1 applic TOPICAL DAILY PRN 10/15/21 [History] Metoprolol Tartrate [Lopressor] 12.5 mg PO BID 11/03/21 [History] Lidocaine 5% Patch [Lidoderm 5% Patch] 1 patch TOPICAL DAILY PRN 05/17/22 [History] Furosemide [Lasix] 40 mg PO DAILY 30 Days #30 tab 05/21/22 [Rx] Budesonide-Formot 160-4.5 Mcg [Symbicort 160-4.5 Mcg Inhaler] 2 puff INHALATION RT-BID #1 each 06/08/22 [Rx] Ipratropium-Albuterol Nebulize [Duoneb 0.5 mg-3 mg/3 ml Soln] 3 ml INHALATION RT-QID PRN #120 each 06/08/22 [Rx] Sildenafil [Revatio] 20 mg PO TID 07/29/22 [History] Ipratropium-Albuterol Nebulize [Duoneb 0.5 mg-3 mg/3 ml Soln] 3 ml INHALATION RT-QID #360 each 08/06/22 [Rx] Nebulizer [Altera Nebulizer ([address] [employer] Fund I Inhalation device)] 1 inhalation MISCELLANE DIRECTED #1 each 08/06/22 [Rx] predniSONE 10 mg PO DAILY #30 tab 08/06/22 [Rx] predniSONE [Deltasone] 40 mg PO DAILY tab 08/06/22 [Rx] Follow up Appointment(s)/Referral(s): [facility],Clinic [Primary Care Provider] - 1-2 days Federico Orellana MD [STAFF PHYSICIAN] - 2 Weeks Discharge Disposition: HOME WITH HOME HEALTH SERVICES
[2022-08-07] MEDS ORDERED: predniSONE 20 MG TAB PO SCH (09:00)
== END 2022-08-06 15:30 | disposition home or self-care (01) | DRG 193 ==
LOC: EC 13:25 → 3SCARD 15:48
PROVIDERS: ADMIT Internal Medicine; ATTEND Internal Medicine
PROC: 0B9D8ZX Drainage of Right Middle Lung Lobe, Via Natural or Artificial Opening Endoscopic, Diagnostic (ICD-10-PCS; principal; 2022-08-02 08:00)
PROC: 0B9M8ZZ Drainage of Bilateral Lungs, Via Natural or Artificial Opening Endoscopic (ICD-10-PCS; principal; 2022-08-02 08:00)
PROC: 0B918ZZ Drainage of Trachea, Via Natural or Artificial Opening Endoscopic (ICD-10-PCS; principal; 2022-08-02 08:00)
DX: J18.9 Pneumonia, unspecified organism (principal); I71.012 Dissection of descending thoracic aorta; J96.21 Acute and chronic respiratory failure with hypoxia; I48.21 Permanent atrial fibrillation; J44.0 Chronic obstructive pulmonary disease with (acute) lower respiratory infection; J44.1 Chronic obstructive pulmonary disease with (acute) exacerbation; R04.2 Hemoptysis; I27.20 Pulmonary hypertension, unspecified; F03.90 Unspecified dementia, unspecified severity, without behavioral disturbance, psychotic disturbance, mood disturbance, and anxiety; K70.30 Alcoholic cirrhosis of liver without ascites; F10.20 Alcohol dependence, uncomplicated; I11.0 Hypertensive heart disease with heart failure; I50.9 Heart failure, unspecified; Y95 Nosocomial condition; Z20.822 Contact with and (suspected) exposure to COVID-19; I25.10 Atherosclerotic heart disease of native coronary artery without angina pectoris; K21.9 Gastro-esophageal reflux disease without esophagitis; B19.20 Unspecified viral hepatitis C without hepatic coma; H93.13 Tinnitus, bilateral; I83.91 Asymptomatic varicose veins of right lower extremity; M19.90 Unspecified osteoarthritis, unspecified site; E78.5 Hyperlipidemia, unspecified; I25.2 Old myocardial infarction; H35.30 Unspecified macular degeneration; H91.90 Unspecified hearing loss, unspecified ear; R77.8 Other specified abnormalities of plasma proteins; F17.200 Nicotine dependence, unspecified, uncomplicated; Z71.6 Tobacco abuse counseling; Z99.81 Dependence on supplemental oxygen; Z79.01 Long term (current) use of anticoagulants; Z79.82 Long term (current) use of aspirin; Z79.51 Long term (current) use of inhaled steroids; Z79.890 Hormone replacement therapy; Z79.899 Other long term (current) drug therapy; Z86.718 Personal history of other venous thrombosis and embolism; Z85.46 Personal history of malignant neoplasm of prostate; Z86.73 Personal history of transient ischemic attack (TIA), and cerebral infarction without residual deficits; Z87.01 Personal history of pneumonia (recurrent); Z95.1 Presence of aortocoronary bypass graft; Z95.3 Presence of xenogenic heart valve; Z95.5 Presence of coronary angioplasty implant and graft; Z87.440 Personal history of urinary (tract) infections; Z88.8 Allergy status to other drugs, medicaments and biological substances
CPT/HCPCS: 31624; 36415; 71045; 71046; 80048; 80053; 82565; 83605; 83735; 83880; 84145; 84484; 85025; 85610; 85730; 87040; 87070; 87102; 87116; 87205; 87206; 87252; 87496; 87498; 87502; 87529; 87634; 87636; 87798; 88305; 89050; 93005; 93306; 94640; 94667; 94668; 94760; 96365; 96366; 96367; 99285

== ENCOUNTER 2023-02-09 12:33 | Emergency (ER) | payer OTHER, MEDICARE, BC ==
[2023-02-09 12:43] VITALS: TEMP 98
[2023-02-09 13:32] LABS: Basophils % (A) 0 %; Eosinophils # (A) 0.1 k/uL (0-0.7); Eosinophils % (A) 1 %; HCT 39.9 % (39.0-53.0); HGB 13.6 gm/dL (13.0-17.5); Lymphocytes # (A) 0.9 k/uL (1.0-4.8); Lymphocytes % (A) 8 %; MCV 94.1 fL (80.0-100.0); Mean Platelet Volume 9.3; Monocytes # (A) 0.7 k/uL (0-1.0); Monocytes % (A) 6 %; Neutrophils # (A) 9.7 k/uL (1.3-7.7); Neutrophils % (A) 85 %; Platelet Count 110 k/uL (150-450); RBC 4.24 m/uL (4.30-5.90); RDW 13.9 % (11.5-15.5); WBC 11.4 k/uL (3.8-10.6)
[2023-02-09] MEDS ORDERED: MORPHINE SULFATE 4 MG/ML SYRINGE IVP STA (13:40)
[2023-02-09 13:41] LABS: INR 1.1 (<1.2); Partial Thromboplastin Time 32.5 sec (22.0-30.0); Prothrombin Time 11.4 sec (9.0-12.0)
--- NOTE | 2023-02-09 13:43 | ED ---
General Adult HPI - General Source: patient, family, RN notes reviewed Mode of arrival: wheelchair Limitations: no limitations <Max Ricardo - Last Filed: 02/09/23 14:30> <Lázaro Atkins - Last Filed: 02/09/23 16:38> - General Chief complaint: Chest Pain Stated complaint: chest pain Time Seen by Provider: 02/09/23 13:27 - History of Present Illness Initial comments: Patient is a pleasant 72-year-old male presenting to the emergency Department with right-sided chest pain. Onset of symptoms was 2-3 days ago. Patient was outside smoking and tripped on the rug on the way in. Patient landed on the right side. Patient has had some discomfort since that time. No dyspnea. Discomfort does increase with touch and movement and deep breaths. Discomfort is right shoulder and upper abdomen. (Max Ricardo) - Related Data Home Medications Medication Instructions Recorded Confirmed Apixaban [Eliquis] 5 mg PO BID 08/04/20 09/28/22 Levothyroxine Sodium [Euthyrox] 50 mcg PO DAILY 08/04/20 09/28/22 Aspirin EC [Ecotrin Low Dose] 81 mg PO DAILY 12/24/20 09/28/22 Mirtazapine [Remeron] 15 mg PO HS 12/24/20 09/28/22 Pantoprazole Sodium 40 mg PO AC-BRKFST 12/24/20 09/28/22 Thiamine [Vitamin B-1] 100 mg PO DAILY 12/24/20 09/28/22 Atorvastatin [Lipitor] 20 mg PO HS 10/15/21 09/28/22 Escitalopram Oxalate [Lexapro] 20 mg PO DAILY 10/15/21 09/28/22 Lidocaine 4% Cream [Lmx 4] 1 applic TOPICAL DAILY PRN 10/15/21 09/28/22 Metoprolol Tartrate [Lopressor] 12.5 mg PO BID 11/03/21 09/28/22 Lidocaine 5% Patch [Lidoderm 5% 1 patch TOPICAL DAILY PRN 05/17/22 09/28/22 Patch] Sildenafil [Revatio] 20 mg PO TID 07/29/22 09/28/22 Previous Rx's Medication Instructions Recorded Budesonide-Formot 160-4.5 Mcg 2 puff INHALATION RT-BID #1 each 06/08/22 [Symbicort 160-4.5 Mcg Inhaler] Ipratropium-Albuterol Nebulize 3 ml INHALATION RT-QID PRN #120 06/08/22 [Duoneb 0.5 mg-3 mg/3 ml Soln] each Furosemide [Lasix] 40 mg PO BID@0900,1600 #60 tab 10/03/22 predniSONE [Deltasone] 40 mg PO DAILY #14 tab 10/03/22 Allergies Allergy/AdvReac Type Severity Reaction Status Date / Time primidone Allergy Rash/Hives Verified 02/09/23 12:43 gabapentin AdvReac DIZZINESS Verified 02/09/23 12:43 Review of Systems ROS Other: All systems not noted in ROS Statement are negative. Constitutional: Denies: fever Eyes: Denies: eye pain ENT: Denies: ear pain Respiratory: Reports: as per HPI Cardiovascular: Reports: as per HPI Gastrointestinal: Reports: as per HPI Genitourinary: Denies: dysuria Musculoskeletal: Denies: back pain Skin: Denies: rash <Max Ricardo - Last Filed: 02/09/23 14:30> ROS Other: All systems not noted in ROS Statement are negative. <Lázaro Atkins - Last Filed: 02/09/23 16:38> ROS Statement: Those systems with pertinent positive or pertinent negative responses have been documented in the HPI. Past Medical History Past Medical History: Atrial Fibrillation, Atrial Flutter, Coronary Artery Disease (CAD), Cancer, Chest Pain / Angina, Heart Failure, COPD, CVA/TIA, Deep Vein Thrombosis (DVT), Eye Disorder, GERD/Reflux, GI Bleed, Hearing Disorder / Deafness, Hyperlipidemia, Hypertension, Liver Disease, Memory Impairment, Pneumonia, Vascular Disorder Additional Past Medical History / Comment(s): Stable dissection of the descending aorta, chronic atrial fibrillation and is anticoagulated with warfarin, aortic valve replacement with a bioprosthetic valve, pulmonary hypertension, chronic hypoxic respiratory failure with home O2 at , previous pneumonia 2008 and 2014, prostate cancer with prostatectomy, DVT R lower leg x2, macular degeneration L eye, left arm fracture, chronic tinnitus in both ears, gastritis, lower GIm bleed, UTI, liver cirrhosis related to history of alcoholism, hepatitis C at age 14yrs., feeding tube, alcoholism Last Myocardial Infarction Date:: unsure History of Any Multi-Drug Resistant Organisms: None Reported Date of last positivie culture/infection: None MDRO Source:: None Past Surgical History: Cardiac Valve Replacement, Cholecystectomy, Coronary Bypass/CABG, Heart Catheterization, Heart Catheterization With Stent, Hernia Repair, Orthopedic Surgery, Prostate Surgery Additional Past Surgical History / Comment(s): Aortic valve replacement, prostatectomy, right inguinal hernia repair 2, bilateral knee arthroscopy, colonoscopy/polypectomy, EGD, right leg varicose vein stripping, removal of a blood clot from the right lower extremity, cervical surgery d/t injury in [place] and removal of shrapnel's from the right shoulder, feeding tube Past Anesthesia/Blood Transfusion Reactions: No Reported Reaction Date of Last Stent Placement:: 2016 Past Psychological History: No Psychological Hx Reported Smoking Status: Current every day smoker Past Alcohol Use History: Occasional Past Drug Use History: None Reported - Past Family History Mother Family Medical History: Diabetes Mellitus Additional Family Medical History / Comment(s): Mother at age 74 from diabetic complications. Father Family Medical History: Congestive Heart Failure (CHF) Additional Family Medical History / Comment(s): Father at age 91 yrs. <Max Ricardo - Last Filed: 02/09/23 14:30> General Exam Limitations: no limitations General appearance: alert, in no apparent distress Head exam: Present: normocephalic Eye exam: Present: normal appearance Neck exam: Present: normal inspection. Absent: tenderness Respiratory exam: Present: normal lung sounds bilaterally, chest wall tenderness (Mild right lower lateral) Cardiovascular Exam: Present: regular rate, normal rhythm GI/Abdominal exam: Present: soft, tenderness (Mild to moderate right upper) Extremities exam: Present: normal inspection, full ROM. Absent: tenderness Neurological exam: Present: alert. Absent: motor sensory deficit Psychiatric exam: Present: normal affect, normal mood Skin exam: Present: normal color <Max Ricadro Last Filed: 02/09/23 14:30> Course Vital Signs 02/09/23 12:35 Temperature 98.0 F Pulse Rate 83 Respiratory 20 Rate Blood Pressure 133/79 O2 Sat by Pulse 88 L Oximetry EKG Findings - EKG Results: EKG: interpreted by NANCY (ST depression V2 through V6. Previous EKG reviewed dated 09/28/22 with somewhat similar findings.), normal axis, normal QRS EKG shows: atrial fibrillation <Max Ricardo Last Filed: 02/09/23 14:30> Procedures - Smoking Cessation Time Spent Discussing Smoking Cessation w/Patient (Minutes): 3 Patient Acknowledges Need for Cessation: No <Lázaor Atkins - Last Filed: 02/09/23 16:38> Medical Decision Making - Lab Data Result diagrams: 02/09/23 13:02 02/09/23 13:02 <DavionMax - Last Filed: 02/09/23 14:30> - Lab Data Result diagrams: 02/09/23 13:02 02/09/23 13:02 <Lázaro Atkins - Last Filed: 02/09/23 16:38> - Medical Decision Making Was pt. sent in by a medical professional or institution (, [place], LEGAL PROCESS SPECIALIST, urgent care, hospital, or assisted...) When possible be specific @ -[No] Did you speak to anyone other than the patient for history (EMS, parent, family, police, friend...)? What history was obtained from this source @ -Grandson is present and helps provide history as patient is a poor historian. This does include onset of fall and complaints since that time Did you review nursing and triage notes (agree or disagree)? Why? @ -[I reviewed and agree with nursing and triage notes] Were old charts reviewed (outside hosp., previous admission, EMS record, old EKG, old radiological studies, urgent care reports/EKG's, assisted records)? Report findings @ -Previous EKG reviewed dated 09/28/22 Differential Diagnosis (chest pain, altered mental status, abdominal pain women, abdominal pain men, vaginal bleeding, weakness, fever, dyspnea, syncope, headache, dizziness, GI bleed, back pain, seizure, CVA, palpatations, mental health, musculoskeletal)? @ -Differential Musculoskeletal Muscular strain, contusion, ligament sprain, fracture, arthritis, septic arthritis, bursitis, cellulitis, muscle spasm, nerve compression, DVT, arterial occlusion, herpes zoster, electrolyte abnormality, tumor.... This is not meant to be in all inclusive list. Differential Chest Pain: Stable Angina, Unstable Angina, STEMI, NSTEMI Aortic Dissection, Pneumothorax, Musculoskeletal, Esophageal Spasm GERD, Cholecystitis, Pancreatitis, Zoster, this is not meant to be an all-inclusive list. EKG interpreted by me (3pts min.). @ -[As above] X-rays interpreted by me (1pt min.). @ -Chest x-ray shows postoperative changes. Mild vascular prominence. Case will be endorsed to Dr. Atkins at shift change. (Max Ricardo) Was pt. sent in by a medical professional or institution ([facility], LEGAL PROCESS SPECIALIST, urgent care, hospital, or assisted...) When possible be specifi @ -[No] Did you speak to anyone other than the patient for history (EMS, parent, family, police, friend...)? What history was obtained from this source @ -[No] Did you review nursing and triage notes (agree or disagree)? Why? @ -[I reviewed and agree with nursing and triagenotes] Were old charts reviewed (outside hosp., previous admission, EMS record, old EKG, old radiological studies, urgent care reports/EKG's, assisted records)? Report findings @ -[No old charts were reiewed] Differential Diagnosis (chest pain, altered mental status, abdominal pain women, abdominal pain men, vaginal bleeding, weakness, fever, dyspnea, syncope, headache, dizziness, GI bleed, back pain, seizure, CVA, palpatations, mental health, musculoskeletal)? @ -[not applcable] EKG interpreted by me (3pts min.) @ -[Asabove] X-rays interpreted by me (1pt min.) @ -[Non done] CT interpreted by me (1pt min.) @ -[Non done] U/S interpreted by me (1pt. min.) @ -[Non done] What testing was considered but not performed or refused? (CT, X-rays, U/S, labs)? Why @ [None] What meds were considered but not given or refused? Why @ [None] Did you discuss the management of the patient with other professionals (professionals i.e. [facility], LEGAL PROCESS SPECIALIST, lab, RT, psych nurse, social media marketer, trainer, teacher, immigration services officer, returned case inspector)? Give summar @ -[No] Was smoking cessation discussed for >3mins. @ -[Yes] Was critical care preformed (if so, how long) @ -[No] Were there social determinants of health that impacted care today? How? (Homelessness, low income, unemployed, alcoholism, drug addiction, transportation, low edu. Level, literacy, decrease access to med. care, snf, rehab) @ -[No] Was there de-escalation of care discussed even if they declined (Discuss DNR or withdrawal of care, Hospice)? DNR statu @ -[No] What co-morbidities impacted this encounter? (DM, HTN, Smoking, COPD, CAD, Cancer, CVA, ARF, Chemo, Hep., AIDS, mental health diagnosis, sleep apnea, m orbid obesity) @ -[COPD, soking] Was patient admitted / discharged? Hospital course, mention meds given and route, prescriptions, significant lab abnormalities, going to OR and other pertinent info @ -[Patient was discarged] Undiagnosed new problem with uncertain prognosis @ -[No] Drug Therapy requiring intensive monitoring for toxicity (Heparin, Nitro, Insulin, Cardizem) @ -[No] Were any procedures done @ -[No] Diagnosis/symptom @ -[Myofascial pain, chest wall contusion, smoker COPD] Acute, or Chronic, or Acute on Chronic @ -Acute] Uncomplicated (without systemic symptoms) or Complicated (systemic symptoms) @ -[dfault] Side effects of treatment @ -[No] Exacerbation, Progression, or Severe Exacerbation @ -[No] Poses a threat to life or bodily function? How? (Chest pain, [place], OR, pneumonia, PE, COPD, DKA, ARF, appy, cholecystitis, CVA, Diverticulitis, Homicidal, Suicidal, threat to staff... and all critical care pts @ -[No] (Lázaro Atkins) - Lab Data Lab Results 02/09/23 02/09/23 02/09/23 Range/Units 13:02 13:02 13:02 WBC 11.4 H (3.8-10.6) k/uL RBC 4.24 L (4.30-5.90) m/uL Hgb 13.6 (13.0-17.5) gm/dL Hct 39.9 (39.0-53.0) % MCV 94.1 (80.0-100.0) fL MCH 32.0 (25.0-35.0) pg MCHC 34.0 (31.0-37.0) g/dL RDW 13.9 (11.5-15.5) % Plt Count 110 L (150-450) k/uL MPV 9.3 Neutrophils % 85 % Lymphocytes % 8 % Monocytes % 6 % Eosinophils % 1 % Basophils % 0 % Neutrophils # 9.7 H (1.3-7.7) k/uL Lymphocytes # 0.9 L (1.0-4.8) k/uL Monocytes # 0.7 (0-1.0) k/uL Eosinophils # 0.1 (0-0.7) k/uL Basophils # 0.0 (0-0.2) k/uL PT 11.4 (9.0-12.0) sec INR 1.1 (<1.2) APTT 32.5 H (22.0-30.0) sec Sodium 136 L (137-145) mmol/L Potassium 3.4 L (3.5-5.1) mmol/L Chloride 84 L (98-107) mmol/L Carbon Dioxide 43 H* (22-30) mmol/L Anion Gap 9 mmol/L BUN 23 H (9-20) mg/dL Creatinine 1.12 (0.66-1.25) mg/dL Est GFR (CKD-EPI)AfAm 75 (>60 ml/min/1.73 sqM) Est GFR (CKD-EPI)NonAf 65 (>60 ml/min/1.73 sqM) Glucose 121 H (74-99) mg/dL Calcium 8.6 (8.4-10.2) mg/dL Total Bilirubin 1.2 (0.2-1.3) mg/dL AST 34 (17-59) U/L ALT 14 (4-49) U/L Alkaline Phosphatase 131 H (38-126) U/L Troponin I (0.000-0.034) ng/mL Total Protein 7.6 (6.3-8.2) g/dL Albumin 4.0 (3.5-5.0) g/dL 02/09/23 Range/Units 13:02 WBC (3.8-10.6) k/uL RBC (4.30-5.90) m/uL Hgb (13.0-17.5) gm/dL Hct (39.0-53.0) % MCV (80.0-100.0) fL MCH (25.0-35.0) pg MCHC (31.0-37.0) g/dL RDW (11.5-15.5) % Plt Count (150-450) k/uL MPV Neutrophils % % Lymphocytes % % Monocytes % % Eosinophils % % Basophils % % Neutrophils # (1.3-7.7) k/uL Lymphocytes # (1.0-4.8) k/uL Monocytes # (0-1.0) k/uL Eosinophils # (0-0.7) k/uL Basophils # (0-0.2) k/uL PT (9.0-12.0) sec INR (<1.2) APTT (22.0-30.0) sec Sodium (137-145) mmol/L Potassium (3.5-5.1) mmol/L Chloride (98-107) mmol/L Carbon Dioxide (22-30) mmol/L Anion Gap mmol/L BUN (9-20) mg/dL Creatinine (0.66-1.25) mg/dL Est GFR (CKD-EPI)AfAm (>60 ml/min/1.73 sqM) Est GFR (CKD-EPI)NonAf (>60 ml/min/1.73 sqM) Glucose (74-99) mg/dL Calcium (8.4-10.2) mg/dL Total Bilirubin (0.2-1.3) mg/dL AST (17-59) U/L ALT (4-49) U/L Alkaline Phosphatase (38-126) U/L Troponin I <0.012 (0.000-0.034) ng/mL Total Protein (6.3-8.2) g/dL Albumin (3.5-5.0) g/dL - Radiology Data Interpreted by me: Imaging interpreted by me in no acute processes seen on CT (Lázaro Atkins) Disposition <Max Ricardo - Last Filed: 02/09/23 14:30> Is patient prescribed a controlled substance at d/c from ED?: No Decision Date: 02/09/23 Decision Time: 16:38 <Lázaro Atkins - Last Filed: 02/09/23 16:38> Clinical Impression: Chest wall pain, Smoking, History of COPD, Fall, Dehydration Disposition: HOME SELF-CARE Condition: Good Instructions (If sedation given, give patient instructions): Contusion in Adults (ED), Dehydration (ED), COPD (Chronic Obstructive Pulmonary Disease) (ED), How to Stop Smoking (ED) Additional Instructions: Tylenol for pain Referrals: [facility] [Primary Care Provider] - 1-2 days
--- NOTE | 2023-02-09 13:46 | XR ---
EXAMINATION TYPE: XR chest 2V DATE OF EXAM: 02/09/2023 1:36 PM COMPARISON: Chest radiographs from 10/02/2022 TECHNIQUE: XR chest 2V Frontal and lateral views of the chest. CLINICAL INDICATION:Male, 72 years old with history of Chest Pain; FINDINGS: Lungs/Pleura: There is no evidence of pleural effusion, focal consolidation, or pneumothorax. Surgica l clips are projecting over the right lung apex. Pulmonary vascularity: Unremarkable. Heart/mediastinum: Cardiomediastinal silhouette is unremarkable. Post aortic valve repair changes. L eft atrial appendage occlusion device is present. Musculoskeletal: No acute osseous pathology. Midline sternotomy wires are noted. IMPRESSION: Cardiomegaly with mild pulmonary vascular prominence correlate with serum BNP.
[2023-02-09 13:48] LABS: ALT 14 U/L (4-49); AST 34 U/L (17-59); African American GFR (CKD) 75 (>60 ml/min/1.73 sqM); Alkaline Phosphatase 131 U/L (38-126); Blood Urea Nitrogen 23 mg/dL (9-20); Calcium 8.6 mg/dL (8.4-10.2); Chloride 84 mmol/L (98-107); Glucose 121 mg/dL (74-99); Non-African American GFR(CKD) 65 (>60 ml/min/1.73 sqM); Potassium 3.4 mmol/L (3.5-5.1); Sodium 136 mmol/L (137-145); Total Bilirubin 1.2 mg/dL (0.2-1.3); Total Protein 7.6 g/dL (6.3-8.2)
[2023-02-09 13:55] LABS: Anion Gap 9 mmol/L
[2023-02-09 13:59] LABS: Carbon Dioxide 43 mmol/L (22-30)
--- NOTE | 2023-02-09 15:27 | CT ---
EXAMINATION TYPE: CT abdomen pelvis w con DATE OF EXAM: 02/09/2023 COMPARISON: None INDICATION: fall right side pain DLP: 1099 mGycm, Automated exposure control for dose reduction was used. CONTRAST: 80 mL of Isovue 300. Study performed without Oral Contrast TECHNIQUE: Axial images were obtained from above the diaphragm to the pubic rami in the axial plane a t 5 mm thick sections. Reconstructed images are reviewed on the computer in the coronal plane. FINDINGS: There appears be a tiny dissection in the distal descending thoracic aorta just above the s uperior celiac axis which terminates above the superior mesenteric artery level within the aorta.. Se quence 201 image 20-[address] sections are obtained the lung bases. The lung bases are clear. CT ABDOMEN: Gabriela-umbilical hernia with some minimal mesenteric fat is present. Additionally, note is made of a vascular structure which has herniated into the periumbilical hernia. No loops of bowel are involved. No organ injury is evident. Liver: Normal Spleen: Normal Pancreas: Normal Adrenal glands: The adrenal glands are normal. Gallbladder: Surgically absent Kidneys: No masses are evident. No hydronephrosis is present. No large cysts are present. Delayed images were obtained through the kidneys, which reveal small cortical renal cysts present bilaterally . Aorta: Vascular calcification is within the aorta. Inferior vena cava: Normal. CT PELVIS: Loops of bowel within the abdomen and pelvis are normal. There are loops of bowel which are incom pletely distended or lack oral contrast limiting their evaluation. Appendix: Not visualized. No dilated tubular structure or inflammatory change is evident. Urinary bladder: Normal. Genitourinary structures: Prostate is not well visualized. No enlarged prostate is evident. Correlate with the patient's history. Osseous structures: No suspicious lytic or sclerotic lesions are evident. No acute right rib fracture s are evident within the field of view. Right femoral head articulates with the acetabulum. IMPRESSIONS: 1. No suspicious posttraumatic changes to account for right abdomen pain. 2. Note is made of a very short dissection within the distal descending thoracic aorta at the level o f the diaphragm. 3. Cortical renal cysts bilaterally. 4. Small periumbilical hernia containing mesenteric fat and herniation of a blood vessel into this he rnia sac.
[2023-02-09 16:47] VITALS: BP 166/78; PULSE 72; RESP 18
== END 2023-02-09 17:00 | disposition home or self-care (01) ==
LOC: EC 12:33
DX: N28.1 Cyst of kidney, acquired (principal); K42.9 Umbilical hernia without obstruction or gangrene; I51.7 Cardiomegaly; E86.0 Dehydration; J44.9 Chronic obstructive pulmonary disease, unspecified; I48.91 Unspecified atrial fibrillation; I25.10 Atherosclerotic heart disease of native coronary artery without angina pectoris; K21.9 Gastro-esophageal reflux disease without esophagitis; E78.5 Hyperlipidemia, unspecified; Z87.891 Personal history of nicotine dependence; Z79.82 Long term (current) use of aspirin; Z79.899 Other long term (current) drug therapy; W01.0XXA Fall on same level from slipping, tripping and stumbling without subsequent striking against object, initial encounter
CPT/HCPCS: 36415; 93005; 80053; 84484; 85025; 85610; 85730; 71046; 74177; 99285; 96374; J2270; Q9967

== ENCOUNTER 2023-08-04 16:52 | Inpatient (IN) | payer OTHER, MEDICARE, BC ==
[2023-08-04] MEDS ORDERED: IPRATROPIUM-ALBUTEROL 3 ML NEB INHALATION STA (17:15)
[2023-08-04 18:22] LABS: Anisocytosis Moderate; Basophils % (A) 0 %; Eosinophils # (A) 0.1 k/uL (0-0.7); Eosinophils % (A) 1 %; HCT 26.5 % (39.0-53.0); HGB 8.3 gm/dL (13.0-17.5); Hypochromasia Marked; Lymphocytes # (A) 1.1 k/uL (1.0-4.8); Lymphocytes % (A) 15 %; MCH 26.9 pg (25.0-35.0); MCHC 31.4 g/dL (31.0-37.0); MCV 85.9 fL (80.0-100.0); Mean Platelet Volume 8.3; Microcytosis Slight; Monocytes # (A) 0.6 k/uL (0-1.0); Monocytes % (A) 8 %; Neutrophils # (A) 5.4 k/uL (1.3-7.7); Neutrophils % (A) 73 %; Platelet Count 137 k/uL (150-450); Poikilocytosis Slight; RBC 3.09 m/uL (4.30-5.90); RDW 20.3 % (11.5-15.5); WBC 7.5 k/uL (3.8-10.6)
[2023-08-04 18:24] LABS: VBG PH 7.45 (7.31-7.41)
[2023-08-04 18:29] LABS: INR 1.2 (<1.2); Partial Thromboplastin Time 33.3 sec (22.0-30.0); Prothrombin Time 12.7 sec (10.0-12.5)
--- NOTE | 2023-08-04 18:35 | XR ---
EXAMINATION TYPE: XR chest 2V DATE OF EXAM: 08/04/2023 6:16 PM CLINICAL INDICATION:Male, 73 years old with history of difficulty breathing; COMPARISON: Chest radiographs from 02/09/2023. TECHNIQUE: XR chest 2V Frontal and lateral views of the chest. FINDINGS: Lungs/Pleura: No evidence of focal consolidation or pneumothorax. Blunting of the costophrenic angles is present. Pulmonary vascularity: Pulmonary vascular congestion. Heart/mediastinum: Cardiomediastinal silhouette is enlarged and stable. Post aortic valve repair julia nges. Left atrial appendage occlusion device is present. Musculoskeletal: No acute osseous pathology. Other findings: None IMPRESSION: Cardiomegaly, pulmonary vascular congestion and bilateral pleural effusions. Correlate with BNP for c ongestive heart failure.
[2023-08-04 18:40] LABS: Lactic Acid, Venous 1.6 mmol/L (0.7-2.0)
[2023-08-04 18:41] LABS: ALT 10 U/L (4-49); AST 30 U/L (17-59); African American GFR (CKD) 61 (>60 ml/min/1.73 sqM); Albumin 3.5 g/dL (3.5-5.0); Alkaline Phosphatase 150 U/L (38-126); Blood Urea Nitrogen 16 mg/dL (9-20); Calcium 8.4 mg/dL (8.4-10.2); Chloride 82 mmol/L (98-107); Glucose 101 mg/dL (74-99); Magnesium 1.8 mg/dL (1.6-2.3); Non-African American GFR(CKD) 53 (>60 ml/min/1.73 sqM); Potassium 3.6 mmol/L (3.5-5.1); Sodium 136 mmol/L (137-145); Total Bilirubin 0.9 mg/dL (0.2-1.3); Total Protein 6.7 g/dL (6.3-8.2)
[2023-08-04 18:48] LABS: Anion Gap 10 mmol/L
--- NOTE | 2023-08-04 18:48 | CT ---
EXAMINATION TYPE: CT brain wo con CT DLP: 1122.4 mGycm, Automated exposure control for dose reduction was used. DATE OF EXAM: 08/04/2023 6:24 PM COMPARISON: 10/15/2021. CLINICAL INDICATION:Male, 73 years old with history of confusion, fall on thinners, ams, confusion, f all TECHNIQUE: Brain: Axial CT images of the brain were obtained with coronal and sagittal reformats created and rev iewed. Contrast used: None. Oral contrast used: None. FINDINGS: Brain: Extra-axial spaces: No abnormal extra-axial fluid collections. Ventricular system: Dilatation in proportion to cerebral atrophy. Cerebral parenchyma: Encephalomalacia the left MCA territory in the parietal region. Cerebral atrophy . No acute intraparenchymal hemorrhage or mass effect. The adler-white junction is well differentiate d. Scattered hypoattenuating areas are seen within the white matter. Cerebellum: Unremarkable. Mass effect: No evidence of midline shift. Intracranial vasculature: Atherosclerotic calcifications of the intracranial vessels. Soft tissues: Normal. Calvarium/osseous structures: No depressed skull fracture. Paranasal sinuses and mastoid air cells: Mild scattered paranasal sinus disease. Visualized orbits: Orbital contents are intact. IMPRESSION: 1. No acute intracranial process. 2. Remote left parietal infarct along with nonspecific white matter changes likely secondary to chron ic microangiopathy.
[2023-08-04 18:50] LABS: NT-Pro-B-Type Natriuretic Pept 6080 pg/mL
[2023-08-04 19:26] LABS: Carbon Dioxide 44 mmol/L (22-30)
[2023-08-04] MEDS ORDERED: FUROSEMIDE 10 MG/ML 4 ML VIAL IV STA (19:49)
[2023-08-04 20:12] LABS: Appearance,Urine Clear (Clear); Bilirubin,Urine Negative (Negative); Blood,Urine Negative (Negative); Color,Urine Yellow; Glucose,Urine (UA) Negative (Negative); Hyaline Casts,Urine 19 /lpf (0-2); Ketones,Urine Negative (Negative); Leukocyte Esterase,Urine Negative (Negative); Mucus,Urine Rare /hpf; Nitrite,Urine Negative (Negative); Protein,Urine 1+ (Negative); RBC,Urine 1 /hpf (0-5); Specific Gravity,Urine 1.012 (1.001-1.035)
[2023-08-04] MEDS ORDERED: NALOXONE 0.4 MG/ML 1 ML VIAL IV PRN ×2 (20:41→21:48)
--- NOTE | 2023-08-04 20:41 | ED ---
General Adult HPI - General Chief complaint: Shortness of Breath Stated complaint: Altered Mental Status Time Seen by Provider: 08/04/23 17:03 Source: patient, RN notes reviewed, old records reviewed Mode of arrival: EMS Limitations: no limitations - History of Present Illness Initial comments: Patient is a 73-year-old male with past medical history remarkable for prior stroke, baseline and O 2-3, atrial fibrillation on blood thinners, presents emergency department for mild confusion as well as increased work of breathing. Patient states he has noticed increased work of breathing with a nonproductive cough. Uncertain if his legs are more swollen. States is worse with ambulation. His baseline on 3 L nasal cannula. Is mildly hypoxic on this, and improves when increased to 5 L nasal cannula when I evaluated him. Vital signs otherwise within except for limits. Patient did fall earlier today and he is on blood thinners. Unknown if he has had. Went to a doctor's appointment prior to presents emergency department for evaluation. Currently is somewhat at his baseline as he is usually confused to time. Presents for further evaluation. - Related Data Home Medications Medication Instructions Recorded Confirmed Apixaban [Eliquis] 5 mg PO BID 08/04/20 08/04/23 Levothyroxine Sodium [Euthyrox] 50 mcg PO DAILY 08/04/20 08/04/23 Mirtazapine [Remeron] 15 mg PO HS 12/24/20 08/04/23 Pantoprazole Sodium 40 mg PO AC-BRKFST 12/24/20 08/04/23 Thiamine [Vitamin B-1] 100 mg PO DAILY 12/24/20 08/04/23 Atorvastatin [Lipitor] 20 mg PO HS 10/15/21 08/04/23 Escitalopram Oxalate [Lexapro] 20 mg PO DAILY 10/15/21 08/04/23 Metoprolol Tartrate [Lopressor] 12.5 mg PO BID 11/03/21 08/04/23 Albuterol Nebulized [Ventolin 2.5 mg INHALATION RT-Q4H PRN 08/04/23 08/04/23 Nebulized] Ferrous Sulfate [Feosol] 325 mg PO DAILY 08/04/23 08/04/23 Fluticasone Propion/Salmeterol 1 puff INHALATION RT-BID 08/04/23 08/04/23 [Wixela 500-50 Inhub] Folic Acid 0.8 mg PO DAILY 08/04/23 08/04/23 Potassium Chloride ER [K-Dur 20] 20 meq PO DAILY 08/04/23 08/04/23 Previous Rx's Medication Instructions Recorded Furosemide [Lasix] 40 mg PO BID@0900,1600 #60 tab 10/03/22 Allergies Allergy/AdvReac Type Severity Reaction Status Date / Time primidone Allergy Rash/Hives Verified 08/04/23 22:15 gabapentin AdvReac DIZZINESS Verified 08/04/23 22:15 Review of Systems ROS Statement: Those systems with pertinent positive or pertinent negative responses have been documented in the HPI. Review of Systems: CONST: Denies fever EYES: Denies blurry vision ENT: Denies nasal congestion C/V: Denies Chest pain RESP: Endorses increased work of breathing. GI: Denies abdominal pain : Denies dysuria SKIN: Denies rash. MSK: Denies joint pain. NEURO: Denies headache ROS Other: All systems not noted in ROS Statement are negative. Past Medical History Past Medical History: Atrial Fibrillation, Atrial Flutter, Coronary Artery Disease (CAD), Cancer, Chest Pain / Angina, Heart Failure, COPD, CVA/TIA, Deep Vein Thrombosis (DVT), Eye Disorder, GERD/Reflux, GI Bleed, Hearing Disorder / Deafness, Hyperlipidemia, Hypertension, Liver Disease, Memory Impairment, Pneumonia, Vascular Disorder Additional Past Medical History / Comment(s): Stable dissection of the descending aorta, chronic atrial fibrillation and is anticoagulated with warfarin, aortic valve replacement with a bioprosthetic valve, pulmonary hypertension, chronic hypoxic respiratory failure with home O2 at , previous pneumonia 2008 and 2014, prostate cancer with prostatectomy, DVT R lower leg x2, macular degeneration L eye, left arm fracture, chronic tinnitus in both ears, gastritis, lower GIm bleed, UTI, liver cirrhosis related to history of alcoholism, hepatitis C at age 14yrs., feeding tube, alcoholism Last Myocardial Infarction Date:: unsure History of Any Multi-Drug Resistant Organisms: None Reported Date of last positivie culture/infection: None MDRO Source:: None Past Surgical History: Cardiac Valve Replacement, Cholecystectomy, Coronary Bypass/CABG, Heart Catheterization, Heart Catheterization With Stent, Hernia Repair, Orthopedic Surgery, Prostate Surgery Additional Past Surgical History / Comment(s): Aortic valve replacement, prostatectomy, right inguinal hernia repair 2, bilateral knee arthroscopy, colonoscopy/polypectomy, EGD, right leg varicose vein stripping, removal of a blood clot from the right lower extremity, cervical surgery d/t injury in [place] and removal of shrapnel's from the right shoulder, feeding tube Past Anesthesia/Blood Transfusion Reactions: No Reported Reaction Date of Last Stent Placement:: 2016 Past Psychological History: No Psychological Hx Reported Smoking Status: Current every day smoker Past Alcohol Use History: Occasional Past Drug Use History: None Reported - Past Family History Mother Family Medical History: Diabetes Mellitus Additional Family Medical History / Comment(s): Mother at age 74 from diabetic complications. Father Family Medical History: Congestive Heart Failure (CHF) Additional Family Medical History / Comment(s): Father at age 91 yrs. General Exam - General Exam Comments Initial Comments: General: Appears in no acute distress. HEAD: Normal with no signs of head trauma. EYES: PERRLA, EOMI, conjunctiva normal, no discharge. ENT: Hearing grossly intact, normal oropharynx. RESPIRATORY: Clear breath sounds bilaterally. No wheezes, rales, or rhonchi. Mildly increased work of breathing. Coarse breath sounds bilaterally. C/V: Regular rate and rhythm. S1 and S2 auscultated, bilateral lower extremity pitting edema, peripheral pulses 2+ and intact throughout ABD: Abd is soft, nontender, nondistended EXT: Normal range of motion, no obvious deformity SKIN: No rashes or lesions observed on exposed skin. NEURO: Alert and oriented x 2-3 which is baseline. Cranial nerves II-XII intact. No focal sensory or strength deficits. Limitations: no limitations Course Vital Signs 08/04/23 08/04/23 08/04/23 16:57 17:41 17:51 Temperature 98.2 F Pulse Rate 82 78 80 Respiratory 20 Rate Blood Pressure 114/63 O2 Sat by Pulse 95 Oximetry 08/04/23 21:00 Temperature Pulse Rate 76 Respiratory 18 Rate Blood Pressure 113/61 O2 Sat by Pulse 95 Oximetry Medical Decision Making - Medical Decision Making Was pt. sent in by a medical professional or institution (, PA, PAROLE AGENT, urgent care, hospital, or intermediate...) When possible be specific @ -No Did you speak to anyone other than the patient for history (EMS, parent, family, police, friend...)? What history was obtained from this source @ -No Did you review nursing and triage notes (agree or disagree)? Why? @ -I reviewed and agree with nursing and triage notes Were old charts reviewed (outside hosp., previous admission, EMS record, old EKG, old radiological studies, urgent care reports/EKG's, intermediate records)? Report findings @ -No old charts were reviewed Differential Diagnosis (chest pain, altered mental status, abdominal pain women, abdominal pain men, vaginal bleeding, weakness, fever, dyspnea, syncope, headache, dizziness, GI bleed, back pain, seizure, CVA, palpatations, mental he alth, musculoskeletal)? @ -Differential Dyspnea: Coronary syndrome, arrhythmia, tamponade, asthma, COPD, pulmonary embolism, pneumonia, pneumothorax, pulmonary effusion, anaphylaxis, diabetic ketoacidosis, flailed chest, pulmonary contusion, diaphragmatic rupture, anemia, neurom uscular, this is not meant to be an all-inclusive list. Differential Weakness: Hypoglycemia, shock, sepsis, hyponatremia, anemia, infection, IA, ETOH, adverse medicine reaction, overdose, stroke, this is not meant to be an all-inclusive list. EKG interpreted by me (3pts min.). @ -As above X-rays interpreted by me (1pt min.). @ -Chest x-ray shows vascular congestion bilaterally CT interpreted by me (1pt min.). @ -None done U/S interpreted by me (1pt. min.). @ -None done What testing was considered but not performed or refused? (CT, X-rays, U/S, labs)? Why? @ -None What meds were considered but not given or refused? Why? @ -None Did you discuss the management of the patient with other professionals (professionals i.e. , PA, PAROLE AGENT, lab, RT, psych nurse, social welfare clerk, senior fund accountant, teacher, community service patrol officer, egg caser)? Give summary @ -No Was smoking cessation discussed for >3mins.? @ -No Was critical care preformed (if so, how long)? @ -No Were there social determinants of health that impacted care today? How? (Homelessness, low income, unemployed, alcoholism, drug addiction, transportation, low edu. Level, literacy, decrease access to med. care, skilled nursing, rehab)? @ -No Was there de-escalation of care discussed even if they declined (Discuss DNR or withdrawal of care, Hospice)? DNR status @ -No What co-morbidities impacted this encounter? (DM, HTN, Smoking, COPD, CAD, Cancer, CVA, ARF, Chemo, Hep., AIDS, mental health diagnosis, sleep apnea, morbid obesity)? @ -None Was patient admitted / discharged? Hospital course, mention meds given and route, prescriptions, significant lab abnormalities, going to OR and other pertinent info. @ -Based on the patient's presentation and physical exam, I'm concerned for CHF exacerbation but cannot rule out other etiology at this time. Due to the jc sient confusion, we will obtain CT brain and stated have a fall earlier on blood thinners. Currently has no acute complaints. He will be given a breathing treatment. Patient was in agreement this plan. Vital signs within acceptable limits. EKG 2 revealed no obvious acute ischemic process. Chest x-ray shows bilateral pulmonary vascular congestion. CT brain shows no obvious acute intracranial process. Labs remarkable for chronically elevated CO2, as well as indeterminate troponin of 0.0-3 and elevated BNP of 6000. Patient has a anemia of 8.3. I discussed with the patient's daughter who states that patient recently had a diagnosed anemia in the mid eights a few weeks ago and this does appear to be stable. This was a workup obtained at [facility]. I did the patient. He will be admitted for CHF exacerbation. He'll be placed on IV Lasix. Echo ordered. Cardiology consulted. She in agreement with this plan. Patient's oxygen is improved at this time and we're able to wean him back down to his normal 3 L nasal cannula. Vital signs otherwise within acceptable limits. I spoke with the accepting physician Dr. ling of [facility] to accept the patient. Undiagnosed new problem with uncertain prognosis? @ -No Drug Therapy requiring intensive monitoring for toxicity (Heparin, Nitro, Insulin, Cardizem)? @ -No Were any procedures done? @ -No Diagnosis/symptom? @ -CHF exacerbation resulting in acute on chronic hypoxic respiratory failure Acute, or Chronic, or Acute on Chronic? @ -Acute on chronic Uncomplicated (without systemic symptoms) or Complicated (systemic symptoms)? @ -Complicated Side effects of treatment? @ -No] Exacerbation, Progression, or Severe Exacerbation? @ -Exacerbation Poses a threat to life or bodily function? How? (Chest pain, USA, IA, pneumonia, PE, COPD, DKA, ARF, appy, cholecystitis, CVA, Diverticulitis, Homicidal, Suic idal, threat to staff... and all critical care pts) @ -[No] Diagnosis/symptom? @ -Weakness Acute, or Chronic, or Acute on Chronic? @ -Acute Uncomplicated (without systemic symptoms) or Complicated (systemic symptoms)? @ -Complicated Side effects of treatment? @ -[none] Exacerbation, Progression, or Severe Exacerbation] @ -[no] Poses a threat to life or bodily function? @ -Unlikely - Lab Data Result diagrams: 08/04/23 17:55 08/04/23 17:55 Lab Results 08/04/23 08/04/23 08/04/23 Range/Units 17:48 17:55 17:55 WBC 7.5 (3.8-10.6) k/uL RBC 3.09 L (4.30-5.90) m/uL Hgb 8.3 L (13.0-17.5) gm/dL Hct 26.5 L (39.0-53.0) % MCV 85.9 (80.0-100.0) fL MCH 26.9 (25.0-35.0) pg MCHC 31.4 (31.0-37.0) g/dL RDW 20.3 H (11.5-15.5) % Plt Count 137 L (150-450) k/uL MPV 8.3 Neutrophils % 73 % Lymphocytes % 15 % Monocytes % 8 % Eosinophils % 1 % Basophils % 0 % Neutrophils # 5.4 (1.3-7.7) k/uL Lymphocytes # 1.1 (1.0-4.8) k/uL Monocytes # 0.6 (0-1.0) k/uL Eosinophils # 0.1 (0-0.7) k/uL Basophils # 0.0 (0-0.2) k/uL Hypochromasia Marked Poikilocytosis Slight Anisocytosis Moderate Microcytosis Slight PT 12.7 H (10.0-12.5) sec INR 1.2 H (<1.2) APTT 33.3 H (22.0-30.0) sec VBG pH (7.31-7.41) VBG pCO2 (37-51) mmHg VBG HCO3 (24-28) mmol/L Sodium (137-145) mmol/L Potassium (3.5-5.1) mmol/L Chloride (98-107) mmol/L Carbon Dioxide (22-30) mmol/L Anion Gap mmol/L BUN (9-20) mg/dL Creatinine (0.66-1.25) mg/dL Est GFR (CKD-EPI)AfAm (>60 ml/min/1.73 sqM) Est GFR (CKD-EPI)NonAf (>60 ml/min/1.73 sqM) Glucose (74-99) mg/dL Plasma Lactic Acid Silv[place] (0.7-2.0) mmol/L Calcium (8.4-10.2) mg/dL Magnesium (1.6-2.3) mg/dL Total Bilirubin (0.2-1.3) mg/dL AST (17-59) U/L ALT (4-49) U/L Alkaline Phosphatase (38-126) U/L Ammonia (<30) umol/L Troponin I (0.000-0.034) ng/mL NT-Pro-B Natriuret Pep pg/mL Total Protein (6.3-8.2) g/dL Albumin (3.5-5.0) g/dL Urine Color Urine Appearance (Clear) Urine pH (5.0-8.0) Ur Specific [place] (1.001-1.035) Urine Protein (Negative) Urine Glucose (UA) (Negative) Urine Ketones (Negative) Urine Blood (Negative) Urine Nitrite (Negative) Urine Bilirubin (Negative) Urine Urobilinogen (<2.0) mg/dL Ur Leukocyte Esterase (Negative) Urine RBC (0-5) /hpf Hyaline Casts (0-2) /lpf Urine Mucus (None) /hpf Influenza Type A (PCR) Not Detected (Not Detectd) Influenza Type B (PCR) Not Detected (Not Detectd) RSV (PCR) Not Detected (Not Detectd) SARS-CoV-2 (PCR) Not Detected (Not Detectd) 08/04/23 08/04/23 08/04/23 Range/Units 17:55 17:55 17:55 WBC (3.8-10.6) k/uL RBC (4.30-5.90) m/uL Hgb (13.0-17.5) gm/dL Hct (39.0-53.0) % MCV (80.0-100.0) fL MCH (25.0-35.0) pg MCHC (31.0-37.0) g/dL RDW (11.5-15.5) % Plt Count (150-450) k/uL MPV Neutrophils % % Lymphocytes % % Monocytes % % Eosinophils % % Basophils % % Neutrophils # (1.3-7.7) k/uL Lymphocytes # (1.0-4.8) k/uL Monocytes # (0-1.0) k/uL Eosinophils # (0-0.7) k/uL Basophils # (0-0.2) k/uL Hypochromasia Poikilocytosis Anisocytosis Microcytosis PT (10.0-12.5) sec INR (<1.2) APTT (22.0-30.0) sec VBG pH (7.31-7.41) VBG pCO2 (37-51) mmHg VBG HCO3 (24-28) mmol/L Sodium 136 L (137-145) mmol/L Potassium 3.6 (3.5-5.1) mmol/L Chloride 82 L (98-107) mmol/L Carbon Dioxide 44 H* (22-30) mmol/L Anion Gap 10 mmol/L BUN 16 (9-20) mg/dL Creatinine 1.32 H (0.66-1.25) mg/dL Est GFR (CKD-EPI)AfAm 61 (>60 ml/min/1.73 sqM) Est GFR (CKD-EPI)NonAf 53 (>60 ml/min/1.73 sqM) Glucose 101 H (74-99) mg/dL Plasma Lactic Acid Silvino 1.6 (0.7-2.0) mmol/L Calcium 8.4 (8.4-10.2) mg/dL Magnesium 1.8 (1.6-2.3) mg/dL Total Bilirubin 0.9 (0.2-1.3) mg/dL AST 30 (17-59) U/L ALT 10 (4-49) U/L Alkaline Phosphatase 150 H (38-126) U/L Ammonia <9 (<30) umol/L Troponin I 0.023 (0.000-0.034) ng/mL NT-Pro-B Natriuret Pep 6080 pg/mL Total Protein 6.7 (6.3-8.2) g/dL Albumin 3.5 (3.5-5.0) g/dL Urine Color Urine Appearance (Clear) Urine pH (5.0-8.0) Ur Specific [place] (1.001-1.035) Urine Protein (Negative) Urine Glucose (UA) (Negative) Urine Ketones (Negative) Urine Blood (Negative) Urine Nitrite (Negative) Urine Bilirubin (Negative) Urine Urobilinogen (<2.0) mg/dL Ur Leukocyte Esterase (Negative) Urine RBC (0-5) /hpf Hyaline Casts (0-2) /lpf Urine Mucus (None) /hpf Influenza Type A (PCR) (Not Detectd) Influenza Type B (PCR) (Not Detectd) RSV (PCR) (Not Detectd) SARS-CoV-2 (PCR) (Not Detectd) 08/04/23 08/04/23 Range/Units 18:14 18:52 WBC (3.8-10.6) k/uL RBC (4.30-5.90) m/uL Hgb (13.0-17.5) gm/dL Hct (39.0-53.0) % MCV (80.0-100.0) fL MCH (25.0-35.0) pg MCHC (31.0-37.0) g/dL RDW (11.5-15.5) % Plt Count (150-450) k/uL MPV Neutrophils % % Lymphocytes % % Monocytes % % Eosinophils % % Basophils % % Neutrophils # (1.3-7.7) k/uL Lymphocytes # (1.0-4.8) k/uL Monocytes # (0-1.0) k/uL Eosinophils # (0-0.7) k/uL Basophils # (0-0.2) k/uL Hypochromasia Poikilocytosis Anisocytosis Microcytosis PT (10.0-12.5) sec INR (<1.2) APTT (22.0-30.0) sec VBG pH 7.45 H (7.31-7.41) VBG pCO2 70 H* (37-51) mmHg VBG HCO3 48 H (24-28) mmol/L Sodium (137-145) mmol/L Potassium (3.5-5.1) mmol/L Chloride (98-107) mmol/L Carbon Dioxide (22-30) mmol/L Anion Gap mmol/L BUN (9-20) mg/dL Creatinine (0.66-1.25) mg/dL Est GFR (CKD-EPI)AfAm (>60 ml/min/1.73 sqM) Est GFR (CKD-EPI)NonAf (>60 ml/min/1.73 sqM) Glucose (74-99) mg/dL Plasma Lactic Acid Silvino (0.7-2.0) mmol/L Calcium (8.4-10.2) mg/dL Magnesium (1.6-2.3) mg/dL Total Bilirubin (0.2-1.3) mg/dL AST (17-59) U/L ALT (4-49) U/L Alkaline Phosphatase (38-126) U/L Ammonia (<30) umol/L Troponin I (0.000-0.034) ng/mL NT-Pro-B Natriuret Pep pg/mL Total Protein (6.3-8.2) g/dL Albumin (3.5-5.0) g/dL Urine Color Yellow Urine Appearance Clear (Clear) Urine pH 6.0 (5.0-8.0) Ur Specific Bucks 1.012 (1.001-1.035) Urine Protein 1+ H (Negative) Urine Glucose (UA) Negative (Negative) Urine Ketones Negative (Negative) Urine Blood Negative (Negative) Urine Nitrite Negative (Negative) Urine Bilirubin Negative (Negative) Urine Urobilinogen 3.0 (<2.0) mg/dL Ur Leukocyte Esterase Negative (Negative) Urine RBC 1 (0-5) /hpf Hyaline Casts 19 H (0-2) /lpf Urine Mucus Rare H (None) /hpf Influenza Type A (PCR) (Not Detectd) Influenza Type B (PCR) (Not Detectd) RSV (PCR) (Not Detectd) SARS-CoV-2 (PCR) (Not Detectd) - EKG Data -: EKG Interpreted by Me EKG Comments: 12-lead Electrocardiogram Interpretation Note EKG was reviewed and interpreted by myself. 12-lead ECG performed at 1732 is interpreted by me as revealing atrial fibrillation at a rate of 82 beats per minute. [place] is normal. QRS duration is 113 ms, QTc is 464 ms.. There were no ST or T wave abnormalities to suggest myocardial ischemia or injury. R wave progression across the precordium was satisfactory. By my interpretation this EKG is non-diagnostic for acute ischemia. 12-lead Electrocardiogram Interpretation Note EKG was reviewed and interpreted by myself. 12-lead ECG performed at 2057 is interpreted by me as revealing atrial fibrillation at a rate of 81 beats per minute. [place] is rightward deviated. QRS ration is 107 ms, QTc is 465 ms.. There were no ST or T wave abnormalities to suggest myocardial ischemia or injury. R wave progression across the precordium was satisfactory. By my interpretation this EKG is non-diagnostic for acute ischemia. Disposition Clinical Impression: Hypoxia, CHF exacerbation, Weakness Disposition: ADMITTED IP TO THIS HOSP Condition: Stable Time of Disposition: 20:25
--- NOTE | 2023-08-04 22:02 | P.HPIM ---
History of Present Illness H&P Date: 08/04/23 Chief Complaint: sob 72-year-old male with a PMH of COPD, chronic hypoxic respiratory failure on 3 L is a cannula oxygen, mild systolic CHF with EF 45%, A. fib on Eliquis, coronary artery disease, history of TIA, who presents to the emergency room with complaints of shortness of breath. Symptoms started today, has been having a cough, no phlegm. He denied experiencing chest discomfort, nausea, vomiting, palpitations, fevers or diaphoresis. Denied lower extremity swelling or pain. SpO2 in the emergency room was 90% on 3 L NC. Laboratory values was remarkable proBNP 6080, troponin 0.023. Chest x-ray revealed interstitial pulmonary edema. 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, chronic atrial fibrillation and is anticoagulated with warfarin, aortic valve replacement with a bioprosthetic valve, pulmonary hypertension, chronic hypoxic respiratory failure with home O2 at HS, previous pneumonia 2008 and 2014, prostate cancer with prostatectomy, DVT R lower leg x2, macular degeneration L eye, left arm fracture, chronic tinnitus in both ears, gastritis, lower GIm bleed, UTI, liver cirrhosis related to history of alcoholism, hepatitis C at age 14yrs., feeding tube, alcoholism Last Myocardial Infarction Date:: unsure History of Any Multi-Drug Resistant Organisms: None Reported Date of last positivie culture/infection: None MDRO Source:: None Past Surgical History: Cardiac Valve Replacement, Cholecystectomy, Coronary Bypass/CABG, Heart Catheterization, Heart Catheterization With Stent, Hernia Repair, Orthopedic Surgery, Prostate Surgery Additional Past Surgical History / Comment(s): Aortic valve replacement, prostatectomy, right inguinal hernia repair 2, bilateral knee arthroscopy, colonoscopy/polypectomy, EGD, right leg varicose vein stripping, removal of a blood clot from the right lower extremity, cervical surgery d/t injury in [place] and removal of shrapnel's from the right shoulder, feeding tube Past Anesthesia/Blood Transfusion Reactions: No Reported Reaction Date of Last Stent Placement:: 2016 Past Psychological History: No Psychological Hx Reported Smoking Status: Current every day smoker Past Alcohol Use History: Occasional Past Drug Use History: None Reported - Past Family History Mother Family Medical History: Diabetes Mellitus Additional Family Medical History / Comment(s): Mother at age 74 from diabetic complications. Father Family Medical History: Congestive Heart Failure (CHF) Additional Family Medical History / Comment(s): Father at age 91 yrs. Medications and Allergies Home Medications Medication Instructions Recorded Confirmed Type Apixaban [Eliquis] 5 mg PO BID 08/04/20 09/28/22 History Levothyroxine Sodium [Euthyrox] 50 mcg PO DAILY 08/04/20 09/28/22 History Aspirin EC [Ecotrin Low Dose] 81 mg PO DAILY 12/24/20 09/28/22 History Mirtazapine [Remeron] 15 mg PO HS 12/24/20 09/28/22 History Pantoprazole Sodium 40 mg PO AC-BRKFST 12/24/20 09/28/22 History Thiamine [Vitamin B-1] 100 mg PO DAILY 12/24/20 09/28/22 History Atorvastatin [Lipitor] 20 mg PO HS 10/15/21 09/28/22 History Escitalopram Oxalate [Lexapro] 20 mg PO DAILY 10/15/21 09/28/22 History Lidocaine 4% Cream [Lmx 4] 1 applic TOPICAL DAILY PRN 10/15/21 09/28/22 History Metoprolol Tartrate [Lopressor] 12.5 mg PO BID 11/03/21 09/28/22 History Lidocaine 5% Patch [Lidoderm 5% 1 patch TOPICAL DAILY PRN 05/17/22 09/28/22 History Patch] Budesonide-Formot 160-4.5 Mcg 2 puff INHALATION RT-BID #1 each 06/08/22 09/28/22 Rx [Symbicort 160-4.5 Mcg Inhaler] Ipratropium-Albuterol Nebulize 3 ml INHALATION RT-QID PRN #120 06/08/22 09/28/22 Rx [Duoneb 0.5 mg-3 mg/3 ml Soln] each Sildenafil [Revatio] 20 mg PO TID 07/29/22 09/28/22 History Furosemide [Lasix] 40 mg PO BID@0900,1600 #60 tab 10/03/22 Rx predniSONE [Deltasone] 40 mg PO DAILY #14 tab 10/03/22 Rx Allergies Allergy/AdvReac Type Severity Reaction Status Date / Time primidone Allergy Rash/Hives Verified 08/04/23 21:58 gabapentin AdvReac DIZZINESS Verified 08/04/23 21:58 Physical Exam Vitals: Vital Signs Temp Pulse Resp BP Pulse Ox 08/04/23 21:00 76 18 113/61 95 08/04/23 17:51 80 08/04/23 17:41 78 08/04/23 16:57 98.2 F 82 20 114/63 95 Intake and Output 08/04/23 08/04/23 08/04/23 06:59 14:59 22:59 Other: Weight 84.368 kg Constitutional: Mild to moderate respiratory distress, conversant, pleasant Eyes:Anicteric sclerae, moist conjunctiva, no lid-lag, PERRLA, ENMT: Oropharynx clear, no erythema, exudates Neck: Supple, FROM, no masses, or JVD, No carotid bruits, No thyromegaly Lungs: Bilateral wheezing and rhonchi, Clear to percussion, Normal respiratory effort, no accessory muscle use Cardiovascular: Heart regular in rate and rhythm, No murmurs, gallops, or rubs, No peripheral edema Abdominal: Soft, Nontender, no guarding, rebound or rigidity, Normoactive bowel sounds, No hepatomegaly, No splenomegaly, No palpable mass Skin: Normal temperature, tone, texture, turgor, no induration, No subcutaneous nodules, No rash, lesions, No ulcers Extremities: No digital cyanosis, No clubbing, Pedal pulses intact and symmetrical, Radial pulses intact and symmetrical, No calf tenderness Psychiatric: Alert and oriented to person, place and time, appropriate affect, intact judgement Neuro: Muscles Strength 5/5 in all 4 extremities, Sensation to light touch grossly present throughout, Cranial nerves II-XII grossly intact, no focal sensory deficits Results CBC & Chem 7: 08/04/23 17:55 08/04/23 17:55 Labs: Abnormal Lab Results - Last 24 Hours (Table) 08/04/23 08/04/23 08/04/23 Range/Units 17:55 17:55 17:55 RBC 3.09 L (4.30-5.90) m/uL Hgb 8.3 L (13.0-17.5) gm/dL Hct 26.5 L (39.0-53.0) % RDW 20.3 H (11.5-15.5) % Plt Count 137 L (150-450) k/uL PT 12.7 H (10.0-12.5) sec INR 1.2 H (<1.2) APTT 33.3 H (22.0-30.0) sec VBG pH (7.31-7.41) VBG pCO2 (37-51) mmHg VBG HCO3 (24-28) mmol/L Sodium 136 L (137-145) mmol/L Chloride 82 L (98-107) mmol/L Carbon Dioxide 44 H* (22-30) mmol/L Creatinine 1.32 H (0.66-1.25) mg/dL Glucose 101 H (74-99) mg/dL Alkaline Phosphatase 150 H (38-126) U/L Urine Protein (Negative) Hyaline Casts (0-2) /lpf Urine Mucus (None) /hpf 08/04/23 08/04/23 Range/Units 18:14 18:52 RBC (4.30-5.90) m/uL Hgb (13.0-17.5) gm/dL Hct (39.0-53.0) % RDW (11.5-15.5) % Plt Count (150-450) k/uL PT (10.0-12.5) sec INR (<1.2) APTT (22.0-30.0) sec VBG pH 7.45 H (7.31-7.41) VBG pCO2 70 H* (37-51) mmHg VBG HCO3 48 H (24-28) mmol/L Sodium (137-145) mmol/L Chloride (98-107) mmol/L Carbon Dioxide (22-30) mmol/L Creatinine (0.66-1.25) mg/dL Glucose (74-99) mg/dL Alkaline Phosphatase (38-126) U/L Urine Protein 1+ H (Negative) Hyaline Casts 19 H (0-2) /lpf Urine Mucus Rare H (None) /hpf Assessment and Plan Plan: Acute COPD exacerbation Acute CHF exacerbation Normocytic anemia Thrombocytopenia Chronic conditions: A. fib Plan: Continue with DuoNeb's inhaled 3 mL RT QID, Solu-Medrol 60 mg every 6 hourly IV. Cycle trops to rule out ACS. Lasix 40 mg IV bid, monitor I's and O's and daily weights, monitoring electrolytes daily Supplemental oxygen Telemetry Check echocardiogram Consult cardiology Chronic Atrial fibrillation Hypertension Continue with home medications DVT prophylaxis: Eliquis The patient is admitted with an anticipated greater than 2 midnight stay for evaluation of acute COPD and CHF exaceerbations CODE STATUS: Full Code Discussed with: Patient, ER physician Anticipated discharge place: Home
[2023-08-04] MEDS: methylPREDNISolone SOD SUCCI 40 MG/ML 1 ML VIAL IV SCH (23:29)
[2023-08-05] MEDS: LEVOTHYROXINE 50 MCG TAB PO SCH (06:41)
[2023-08-05] MEDS: methylPREDNISolone SOD SUCCI 40 MG/ML 1 ML VIAL IV SCH ×3 (06:41→16:56)
[2023-08-05] MEDS: PANTOPRAZOLE 40 MG TABLET PO SCH (06:41)
[2023-08-05 08:07] LABS: Anisocytosis Moderate; Basophils % (A) 0 %; Eosinophils % (A) 0 %; HGB 8.7 gm/dL (13.0-17.5); Hypochromasia Marked; Lymphocytes # (A) 0.5 k/uL (1.0-4.8); Lymphocytes % (A) 9 %; MCH 26.1 pg (25.0-35.0); MCV 87.2 fL (80.0-100.0); Mean Platelet Volume 8.4; Monocytes # (A) 0.2 k/uL (0-1.0); Monocytes % (A) 4 %; Neutrophils # (A) 4.3 k/uL (1.3-7.7); Neutrophils % (A) 86 %; Platelet Count 140 k/uL (150-450); Poikilocytosis Slight; RBC 3.33 m/uL (4.30-5.90)
[2023-08-05] MEDS: METOPROLOL TARTRATE 12.5 MG TAB PO SCH ×2 (08:16→21:34)
[2023-08-05] MEDS: FUROSEMIDE 10 MG/ML 4 ML VIAL IV SCH ×2 (08:17→21:34)
[2023-08-05] MEDS: ESCITALOPRAM 20 MG TAB PO SCH (08:17)
[2023-08-05 08:21] LABS: African American GFR (CKD) 69 (>60 ml/min/1.73 sqM); Anion Gap 15 mmol/L; Blood Urea Nitrogen 16 mg/dL (9-20); Calcium 8.5 mg/dL (8.4-10.2); Chloride 83 mmol/L (98-107); Glucose 148 mg/dL (74-99); Non-African American GFR(CKD) 60 (>60 ml/min/1.73 sqM); Potassium 3.2 mmol/L (3.5-5.1); Sodium 138 mmol/L (137-145)
[2023-08-05 08:27] LABS: Carbon Dioxide 40 mmol/L (22-30)
[2023-08-05] MEDS: IPRATROPIUM-ALBUTEROL 3 ML NEB INHALATION SCH ×4 (08:33→20:18)
[2023-08-05] MEDS: SYMBICORT 160-4.5 MCG INHALER INHALATION SCH ×4 (08:33→21:58)
[2023-08-05] MEDS ORDERED: APIXABAN 5 MG TAB PO SCH (09:00)
[2023-08-05] MEDS ORDERED: ASPIRIN 81 MG PO SCH (09:00)
[2023-08-05] MEDS: CLOPIDOGREL 75 MG TAB PO SCH (10:05)
--- NOTE | 2023-08-05 12:22 | CA ---
Transthoracic Echo Report Name: Sylvain Duran Age: 73 Gender: M : 1950 Exam Date: 08/05/2023 11:50 Exam Location: [facility] Ht (in): 69 Wt (lb): 186 Ordering Physician: Nas Costa MD Attending/Referring Phys: Straightening Press Operator Chato Ramirez Procedure CPT: Indications: chf Cardiac Hx: Technical Quality: Fair Contrast 1: Total Dose (mL): Contrast 2: Total Dose (mL): MEASUREMENTS (Male / Female) Normal Values 2D ECHO RV Internal Dim ED PLAX 4.9 cm LVOT Diameter 2.2 cm Aortic Root Diameter 3.5 cm LA Systolic Diameter LX 4.8 cm 3.0 - 4.0 / 2.7 - 3.8 cm LV Diastolic Volume MOD BP 71.8 cm??? 67 - 155 / 56 - 104 cm??? LV Systolic Volume MOD BP 37.7 cm??? 22 - 58 / 19 - 49 cm??? LV Ejection Fraction MOD BP 47.5 % >= 55 % LV Cardiac Index MOD BP 1320.1 cm???/min???m??? LV Diastolic Volume MOD 4C 68.4 cm??? LV Systolic Volume MOD 4C 28.6 cm??? LV Ejection Fraction MOD 4C 58.2 % LV Cardiac Index MOD 4C 1538.0 cm???/min???m??? LV Diastolic Length 4C 7.4 cm LV Systolic Length 4C 6.4 cm LV Diastolic Volume MOD 2C 66.6 cm??? LV Systolic Volume MOD 2C 44.1 cm??? LV Ejection Fraction MOD 2C 33.8 % LV Cardiac Index MOD 2C 871.2 cm???/min???m??? LV Diastolic Length 2C 6.5 cm LV Systolic Length 2C 5.7 cm LA Volume 101.4 cm??? 18 - 58 / 22 - 52 cm??? LA Volume Index 49.6 cm???/m??? 16 - 28 cm???/m??? Ascending Aorta Diameter 2.8 cm DOPPLER AV Peak Velocity 187.4 cm/s AV Peak Gradient 14.1 mmHg AV Mean Velocity 129.0 cm/s AV Mean Gradient 7.5 mmHg AV Velocity Time Integral 41.9 cm LVOT Peak Velocity 63.0 cm/s LVOT Peak Gradient 1.6 mmHg LVOT Velocity Time Integral 14.2 cm LVOT Stroke Volume 53.9 cm??? LVOT Stroke Volume Index 26.9 ml/m??? LVOT Cardiac Index 2084.7 cm???/min???m??? AV Area Cont Eq vti 1.3 cm??? AV Area Cont Eq pk 1.3 cm??? MR Peak Velocity 532.9 cm/s MR Peak Gradient 113.6 mmHg Mitral E Point Velocity 160.3 cm/s Mitral A Point Velocity 35.7 cm/s Mitral E to A Ratio 4.5 MV Deceleration Time 118.9 ms TR Peak Velocity 413.7 cm/s TR Peak Gradient 68.5 mmHg Right Ventricular Systolic Press 78.5 mmHg PV Peak Velocity 81.6 cm/s PV Peak Gradient 2.7 mmHg FINDINGS Left Ventricle Normal LV size. Akinesis of the basal to mid septum. Left ventricular ejection fraction is estimated at 50 %. Right Ventricle Severe right ventricular dilatation. Normal right ventricular free wall motion. RVSP= 78mmHg. Right Atrium Moderate to severe right atrial dilatation. RA area= 26cm2 Left Atrium Severe left atrial dilatation. LA volume index= 51ml/m2 Mitral Valve Mild posterior mitral annulus calcification. Moderate MR. Aortic Valve No aortic valve stenosis or regurgitation. Tricuspid Valve Structurally normal tricuspid valve. Moderate to severe TR. Pulmonic Valve Pulmonic valve not well visualized. Mild to moderate PI. Pericardium Not well visualized. Aorta Normal size aortic root and proximal ascending aorta. CONCLUSIONS Normal LV size fair systolic function there is some atypical septal motion and septal flattening secondary to pressure and volume overload. Right ventricle is enlarged with severe pulmonary hypertension. Aortic valve sclerosis. No significant gradient Previewed by: Dr. Miriam Reinoso MD (Electronically Signed) Final Date: 05 August 2023 12:21
--- NOTE | 2023-08-05 14:02 | P.CRDCN ---
History of Present Illness Consult date: 08/05/23 History of present illness: History of present illness: This is a 73-year-old male patient of Dr. Deep Santana with past medical history significant for coronary artery disease status post PCI of the proximal LAD in 2017, hypertension, dyslipidemia, valvular heart disease status post aortic valve replacement, Permanent atrial fibrillation (on Eliquis), chronic aortic dissection, COPD, history of CVA, and former nicotine dependence. We have been asked to see the patient for heart failure. Patient gives history that he was at the [place] [facility] was noted to have mental status changes and was sent here. Patient complains of feeling dizzy and had a fall at home. He does complain of cough. No chest pain. Patient is a poor historian. Patient is seen today in the emergency center waiting for a bed on the cardiac stepdown unit. Patient is status post Lasix 40 mg 1 and continued on 40 mg every 12 hours. EKG reveals atrial fibrillation, heart rate [address] changes in inferior lateral leads, #[address]-T wave changes Chest xray cardiomegaly, pulmonary vascular congestion and bilateral pleural effusions. CAT scan of the brain revealed no acute intracranial process. Remote left parietal infarct along with nonspecific white matter changes likely secondary to small vessel ischemic change. Echocardiogram 08/04/2023 revealed normal LV size and fair systolic function with some apical septal motion and septal flattening secondary to pressure and volume overload. Severe pulmonary hypertension. Aortic valve sclerosis. No significant gradient. EF 50%. WBC 5, hemoglobin 8.7, platelet count 140. Sodium 138, potassium 3.2, chloride 83, CO2 40, BUN 16 creatinine 1.19. Troponin 0.039, 0.046, 0.026. TSH 1.59. Urinalysis negative for infection. Current home medications include Eliquis 5 mg twice a day, atorvastatin 20 mg at bedtime, Lasix 40 mg ice daily, metoprolol tartrate 12.5 mg twice a day, levothyroxine 50 g daily Lexiscan Cardiolite stress test 04/2022 negative REVIEW OF SYSTEMS At the time of my exam: CONSTITUTIONAL: Denies fever or chills. CARDIOVASCULAR: Reports chest pain, +shortness of breath,Denies orthopnea, PND or palpitations. RESPIRATORY: +cough. GASTROINTESTINAL: Denies abdominal pain. Denies diarrhea, constipation, nausea or vomiting. MUSCULOSKELETAL: Denies myalgias. NEUROLOGIC: Denies numbness, tingling, headache or weakness. ENDOCRINE: Denies fatigue, weight change, polydipsia or polyurina. GENITOURINARY: Denies burning, hematuria or urgency with micturation. HEMATOLOGIC: +history of anemia Denies bleeding. PHYSICAL EXAMINATION CONSTITUTIONAL: No apparent distress. HEENT: Head is normocephalic. Pupils are equal, round. Sclerae anicteric. Mucous membranes of the mouth are moist. CHEST EXAMINATION: Coarse crackles in the bases. No chest wall tenderness is noted on palpation or with deep breathing. HEART EXAMINATION: Irregular rate and rhythm. S1, S2 heard. Systolic ejection murmur at the base and apex, no gallops or rub. ABDOMEN: Soft, Positive bowel sounds. EXTREMITIES: 2+ peripheral pulses, no edema and no calf tenderness. NEUROLOGIC EXAMINATION: Patient is awake, alert ASSESSMENT Acute diastolic heart failure Mental status changes Mildly abnormal troponin most likely due to CHF Coronary artery disease s/p PCI to proximal LAD 2016 COPD Permanent atrial fibrillation on eliquis Valvular heart disease s/p prior bioprostheic aortic valve replacement Dyslipidemia COPD Chronic anemia and thrombocytopenia Chronic nicotine dependence PLAN Resume patient's home cardiac medications Continue IV Lasix Monitor I/Os, daily weights, renal function and electrolytes Resume eliquis at a lower dose of 2.5 mg twice daily, discontinue aspirin and start patient on Plavix to reduce bleeding risk Increased Lipitor to 40 mg at bedtime. Further recommendations based on clinical course Nurse Practitioner note has been reviewed, I agree with a documented findings and plan of care. Patient was seen and examined. Past Medical History Past Medical History: Atrial Fibrillation, Atrial Flutter, Coronary Artery Disease (CAD), Cancer, Chest Pain / Angina, Heart Failure, COPD, CVA/TIA, Deep Vein Thrombosis (DVT), Eye Disorder, GERD/Reflux, GI Bleed, Hearing Disorder / Deafness, Hyperlipidemia, Hypertension, Liver Disease, Memory Impairment, Pneumonia, Vascular Disorder Additional Past Medical History / Comment(s): Stable dissection of the descending aorta, chronic atrial fibrillation and is anticoagulated with warfarin, aortic valve replacement with a bioprosthetic valve, pulmonary hypertension, chronic hypoxic respiratory failure with home O2 at , previous pneumonia 2008 and 2014, prostate cancer with prostatectomy, DVT R lower leg x2, macular degeneration L eye, left arm fracture, chronic tinnitus in both ears, gastritis, lower GIm bleed, UTI, liver cirrhosis related to history of alcoholism, hepatitis C at age 14yrs., feeding tube, alcoholism Last Myocardial Infarction Date:: unsure History of Any Multi-Drug Resistant Organisms: None Reported Date of last positivie culture/infection: None MDRO Source:: None Past Surgical History: Cardiac Valve Replacement, Cholecystectomy, Coronary Bypass/CABG, Heart Catheterization, Heart Catheterization With Stent, Hernia Repair, Orthopedic Surgery, Prostate Surgery Additional Past Surgical History / Comment(s): Aortic valve replacement, prostatectomy, right inguinal hernia repair 2, bilateral knee arthroscopy, colonoscopy/polypectomy, EGD, right leg varicose vein stripping, removal of a blood clot from the right lower extremity, cervical surgery d/t injury in [place] and removal of shrapnel's from the right shoulder, feeding tube Past Anesthesia/Blood Transfusion Reactions: No Reported Reaction Date of Last Stent Placement:: 2016 Past Psychological History: No Psychological Hx Reported Smoking Status: Current every day smoker Past Alcohol Use History: Occasional Past Drug Use History: None Reported - Past Family History Mother Family Medical History: Diabetes Mellitus Additional Family Medical History / Comment(s): Mother at age 74 from diabetic complications. Father Family Medical History: Congestive Heart Failure (CHF) Additional Family Medical History / Comment(s): Father at age 91 yrs. Medications and Allergies Home Medications Medication Instructions Recorded Confirmed Type Apixaban [Eliquis] 5 mg PO BID 08/04/20 08/04/23 History Levothyroxine Sodium [Euthyrox] 50 mcg PO DAILY 08/04/20 08/04/23 History Mirtazapine [Remeron] 15 mg PO 12/24/20 08/04/23 History Pantoprazole Sodium 40 mg PO AC-BRKFST 12/24/20 08/04/23 History Thiamine [Vitamin B-1] 100 mg PO DAILY 12/24/20 08/04/23 History Atorvastatin [Lipitor] 20 mg PO HS 10/15/21 08/04/23 History Escitalopram Oxalate [Lexapro] 20 mg PO DAILY 10/15/21 08/04/23 History Metoprolol Tartrate [Lopressor] 12.5 mg PO BID 11/03/21 08/04/23 History Furosemide [Lasix] 40 mg PO BID@0900,1600 #60 tab 10/03/22 08/04/23 Rx Albuterol Nebulized [Ventolin 2.5 mg INHALATION RT-Q4H PRN 08/04/23 08/04/23 History Nebulized] Ferrous Sulfate [Feosol] 325 mg PO DAILY 08/04/23 08/04/23 History Fluticasone Propion/Salmeterol 1 puff INHALATION RT-BID 08/04/23 08/04/23 History [Wixela 500-50 Inhub] Folic Acid 0.8 mg PO DAILY 08/04/23 08/04/23 History Potassium Chloride ER [K-Dur 20] 20 meq PO DAILY 08/04/23 08/04/23 History Allergies Allergy/AdvReac Type Severity Reaction Status Date / Time primidone Allergy Rash/Hives Verified 08/04/23 22:15 gabapentin AdvReac DIZZINESS Verified 08/04/23 22:15 Physical Exam Vitals: Vital Signs Temp Pulse Pulse Resp BP BP Pulse Ox 08/05/23 08:43 96 08/05/23 08:33 106 H 96 08/05/23 08:19 97 F L 101 H 16 164/98 95 08/05/23 03:50 98 18 127/82 93 L 08/04/23 22:00 82 18 131/87 92 L 08/04/23 21:00 76 18 113/61 95 08/04/23 17:51 80 08/04/23 17:41 78 08/04/23 16:57 98.2 F 82 20 114/63 95 Intake and Output 08/04/23 08/05/23 08/05/23 22:59 06:59 14:59 Other: Weight 84.368 kg Results 08/05/23 07:50 08/05/23 07:50 Cardiac Enzymes 08/04/23 08/04/23 08/04/23 Range/Units 17:55 17:55 21:12 AST 30 (17-59) U/L Troponin I 0.023 0.039 H* (0.000-0.034) ng/mL 08/04/23 08/05/23 Range/Units 23:39 07:50 AST (17-59) U/L Troponin I 0.046 H* 0.026 (0.000-0.034) ng/mL Coagulation 08/04/23 Range/Units 17:55 PT 12.7 H (10.0-12.5) sec APTT 33.3 H (22.0-30.0) sec CBC 08/04/23 08/05/23 Range/Units 17:55 07:50 WBC 7.5 5.0 (3.8-10.6) k/uL RBC 3.09 L 3.33 L (4.30-5.90) m/uL Hgb 8.3 L 8.7 L (13.0-17.5) gm/dL Hct 26.5 L 29.0 L (39.0-53.0) % Plt Count 137 L 140 L (150-450) k/uL Comprehensive Metabolic Panel 08/04/23 08/05/23 Range/Units 17:55 07:50 Sodium 136 L 138 (137-145) mmol/L Potassium 3.6 3.2 L (3.5-5.1) mmol/L Chloride 82 L 83 L (98-107) mmol/L Carbon Dioxide 44 H* 40 H (22-30) mmol/L BUN 16 16 (9-20) mg/dL Creatinine 1.32 H 1.19 (0.66-1.25) mg/dL Glucose 101 H 148 H (74-99) mg/dL Calcium 8.4 8.5 (8.4-10.2) mg/dL AST 30 (17-59) U/L ALT 10 (4-49) U/L Alkaline Phosphatase 150 H (38-126) U/L Total Protein 6.7 (6.3-8.2) g/dL Albumin 3.5 (3.5-5.0) g/dL Current Medications Generic Name Dose Route Start Last Admin Trade Name Freq PRN Reason Stop Dose Admin Albuterol/Ipratropium 3 ml 08/05/23 08:00 08/05/23 08:33 Ipratropium-Albuterol 3 Ml Neb INHALATION 3 ml RT-QID [facility] Administration Apixaban 5 mg 08/05/23 09:00 08/05/23 08:17 Apixaban 5 Mg Tab PO 5 mg BID [facility] Administration Protocol Aspirin 81 mg 08/05/23 09:00 08/05/23 08:16 Aspirin 81 Mg PO 81 mg DAILY [facility] Administration Atorvastatin Calcium 20 mg 08/05/23 21:00 Atorvastatin 40 Mg Tab PO HS [facility] Budesonide/Formoterol Fumarate 2 puff 08/05/23 08:00 08/05/23 08:33 Symbicort 160-4.5 Mcg Inhaler INHALATION 2 puff RT-BID [facility]LA Administration Escitalopram Oxalate 20 mg 08/05/23 09:00 08/05/23 08:17 Escitalopram 20 Mg Tab PO 20 mg DAILY [facility]AYLA Administration Furosemide 40 mg 08/05/23 09:00 08/05/23 08:17 Furosemide 10 Mg/Ml 4 Ml Vial IV 40 mg Q12HR JAYLA Administration Levothyroxine Sodium 50 mcg 08/05/23 06:30 08/05/23 06:41 Levothyroxine 50 Mcg Tab PO 50 mcg DAILY@0630 JAYLA Administration Methylprednisolone Sodium Succinate 40 mg 08/05/23 00:00 08/05/23 06:41 Methylprednisolone Sod Succi 40 Mg/Ml 1 Ml Vial IV 40 mg Q6HR [facility]AYLA Administration Metoprolol Tartrate 12.5 mg 08/05/23 09:00 08/05/23 08:16 Metoprolol Tartrate 12.5 Mg Tab PO 12.5 mg BID [facility] Administration Mirtazapine 15 mg 08/05/23 21:00 Mirtazapine 15 Mg Tab PO HS [facility] Naloxone HCl 0.2 mg 08/04/23 21:48 Naloxone 0.4 Mg/Ml 1 Ml Vial IV Q2M PRN Opioid Reversal Pantoprazole Sodium 40 mg 08/05/23 07:30 08/05/23 06:41 Pantoprazole 40 Mg Tablet PO 40 mg AC-BRKFST JAY[facility] Administration Intake and Output 08/04/23 08/05/23 08/05/23 22:59 06:59 14:59 Other: Weight 84.368 kg 08/05/23 07:50 08/05/23 07:50
[2023-08-05] MEDS ORDERED: ALBUTEROL NEBULIZED 2.5 MG/3 ML INHALATION PRN (15:29)
[2023-08-05] MEDS ORDERED: POTASSIUM CHLORIDE ER 20 MEQ TAB.ER PO STA (15:30)
--- NOTE | 2023-08-05 16:42 | P.PN ---
Subjective Progress Note Date: 08/05/23 Hospital Course: 72-year-old male with a PMH of COPD, chronic hypoxic respiratory failure on 3 L is a cannula oxygen, mild systolic CHF with EF 45%, A. fib on Eliquis, coronary artery disease, history of TIA, who presents to the emergency room with complaints of shortness of breath. SpO2 in the emergency room was 90% on 3 L NC. Laboratory values was remarkable proBNP 6080, troponin 0.023. Chest x-ray concerning for pulmonary vascular congestion. EKG showed atrial fibrillation with rate control Patient admitted for COPD exacerbation as well as CHF exacerbation. Cardiology consulted. Currently on IV Lasix, bronchodilators. IV steroids. Subjective: Patient seen and examined at bedside. No acute events overnight. Pertinent positives and negatives as discussed above, a complete review of systems was performed and all other systems are negative. Vitals Signs Reviewed. General: nontoxic, no distress, appears at stated age Derm: warm, dry Head: atraumatic, normocephalic, symmetric Eyes: EOMI, no lid lag, anicteric sclera Mouth: no lip lesion, mucus membranes moist Cardiovascular: S1S2 irregular, no murmur Lungs: Bibasilar rales , no accessory muscle use, supplemental oxygen Abdominal: soft, nontender to palpation, no guarding, no appreciable organomegaly Ext: no gross muscle atrophy, no edema, no contractures Neuro: CN II-XI grossly intact, no focal neuro deficits Psych: Alert, oriented, appropriate affect Data Reviewed Today: Pertinent Labs: Hemoglobin 8.7, platelet 140, potassium 3.2, creatinine 1.19, troponin 0.026, TSH 1.590 Imaging: Echocardiogram report reviewed, shows LVEF of 50%, severe right ventricular dilatation with severe pulmonary hypertension Assessment and Plan: Active: Acute COPD exacerbation Acute diastolic CHF exacerbation Chronic hypoxic respiratory failure NSTEMI, type 2 History of CAD Acute on Normocytic anemia Acute on Thrombocytopenia -Continue duo nebs 4 times a day, Symbicort twice a day, IV Solu-Medrol 40 mg e very 6 hours -Lasix 40 mg IV every 12 hours, monitor renal function and electrolytes -Monitor I's and O's -Daily weights -Cardiology note reviewed, aspirin discontinued, started on Plavix, Eliquis dec reased to 2.5 mg twice a day, increased Lipitor to 40 mg Chronic: Hypothyroidism Hypertension Depression DVT ppx: eliquis Code status: FC Anticipated discharge place: pending clinical course Anticipated discharge time: pending clinical course Objective - Vital Signs Vital signs: Vital Signs Temp 97.4 F L 08/05/23 15:23 Pulse 73 08/05/23 15:23 Resp 16 08/05/23 15:23 BP 147/79 08/05/23 15:23 Pulse Ox 99 08/05/23 15:23 FiO2 Intake & Output 08/04/23 08/05/23 08/05/23 18:59 06:59 18:59 Intake Total 118 Output Total 800 Balance -682 Weight 84.368 kg 84.368 kg Intake: Oral 118 Output: Urine 800 Other: Voiding Method External Catheter - Labs CBC & Chem 7: 08/05/23 07:50 08/05/23 07:50 Labs: Abnormal Lab Results - Last 24 Hours (Table) 08/04/23 08/04/23 08/04/23 Range/Units 17:55 17:55 17:55 RBC 3.09 L (4.30-5.90) m/uL Hgb 8.3 L (13.0-17.5) gm/dL Hct 26.5 L (39.0-53.0) % MCHC (31.0-37.0) g/dL RDW 20.3 H (11.5-15.5) % Plt Count 137 L (150-450) k/uL Lymphocytes # (1.0-4.8) k/uL PT 12.7 H (10.0-12.5) sec INR 1.2 H (<1.2) APTT 33.3 H (22.0-30.0) sec VBG pH (7.31-7.41) VBG pCO2 (37-51) mmHg VBG HCO3 (24-28) mmol/L Sodium 136 L (137-145) mmol/L Potassium (3.5-5.1) mmol/L Chloride 82 L (98-107) mmol/L Carbon Dioxide 44 H* (22-30) mmol/L Creatinine 1.32 H (0.66-1.25) mg/dL Glucose 101 H (74-99) mg/dL Alkaline Phosphatase 150 H (38-126) U/L Troponin I (0.000-0.034) ng/mL Urine Protein (Negative) Hyaline Casts (0-2) /lpf Urine Mucus (None) /hpf 08/04/23 08/04/23 08/04/23 Range/Units 18:14 18:52 21:12 RBC (4.30-5.90) m/uL Hgb (13.0-17.5) gm/dL Hct (39.0-53.0) % MCHC (31.0-37.0) g/dL RDW (11.5-15.5) % Plt Count (150-450) k/uL Lymphocytes # (1.0-4.8) k/uL PT (10.0-12.5) sec INR (<1.2) APTT (22.0-30.0) sec VBG pH 7.45 H (7.31-7.41) VBG pCO2 70 H* (37-51) mmHg VBG HCO3 48 H (24-28) mmol/L Sodium (137-145) mmol/L Potassium (3.5-5.1) mmol/L Chloride (98-107) mmol/L Carbon Dioxide (22-30) mmol/L Creatinine (0.66-1.25) mg/dL Glucose (74-99) mg/dL Alkaline Phosphatase (38-126) U/L Troponin I 0.039 H* (0.000-0.034) ng/mL Urine Protein 1+ H (Negative) Hyaline Casts 19 H (0-2) /lpf Urine Mucus Rare H (None) /hpf 08/04/23 08/05/23 08/05/23 Range/Units 23:39 07:50 07:50 RBC 3.33 L (4.30-5.90) m/uL Hgb 8.7 L (13.0-17.5) gm/dL Hct 29.0 L (39.0-53.0) % MCHC 30.0 L (31.0-37.0) g/dL RDW 20.0 H (11.5-15.5) % Plt Count 140 L (150-450) k/uL Lymphocytes # 0.5 L (1.0-4.8) k/uL PT (10.0-12.5) sec INR (<1.2) APTT (22.0-30.0) sec VBG pH (7.31-7.41) VBG pCO2 (37-51) mmHg VBG HCO3 (24-28) mmol/L Sodium (137-145) mmol/L Potassium 3.2 L (3.5-5.1) mmol/L Chloride 83 L (98-107) mmol/L Carbon Dioxide 40 H (22-30) mmol/L Creatinine (0.66-1.25) mg/dL Glucose 148 H (74-99) mg/dL Alkaline Phosphatase (38-126) U/L Troponin I 0.046 H* (0.000-0.034) ng/mL Urine Protein (Negative) Hyaline Casts (0-2) /lpf Urine Mucus (None) /hpf
[2023-08-05] MEDS ORDERED: ATORVASTATIN 40 MG TAB PO SCH (21:00)
[2023-08-05] MEDS: MIRTAZAPINE 15 MG TAB PO SCH (21:34)
[2023-08-05] MEDS: ATORVASTATIN 40 MG TAB PO SCH (21:34)
[2023-08-05] MEDS: APIXABAN 2.5 MG TABLET PO SCH (21:35)
[2023-08-06] MEDS: methylPREDNISolone SOD SUCCI 40 MG/ML 1 ML VIAL IV SCH ×5 (00:08→23:20)
[2023-08-06] MEDS: BENZOCAINE/MENTHOL LOZENG 1 EACH LOZENGE MUCOUS MEM PRN ×2 (00:12→17:09)
[2023-08-06] MEDS: PANTOPRAZOLE 40 MG TABLET PO SCH (06:25)
[2023-08-06] MEDS: LEVOTHYROXINE 50 MCG TAB PO SCH (06:25)
[2023-08-06] MEDS: IPRATROPIUM-ALBUTEROL 3 ML NEB INHALATION SCH ×4 (08:28→21:58)
[2023-08-06] MEDS: SYMBICORT 160-4.5 MCG INHALER INHALATION SCH ×2 (08:29→21:58)
[2023-08-06] MEDS: APIXABAN 2.5 MG TABLET PO SCH ×2 (09:20→20:10)
[2023-08-06] MEDS: CLOPIDOGREL 75 MG TAB PO SCH (09:20)
[2023-08-06] MEDS: FUROSEMIDE 10 MG/ML 4 ML VIAL IV SCH ×2 (09:20→20:10)
[2023-08-06] MEDS: FOLIC ACID 1 MG TAB PO SCH (09:20)
[2023-08-06] MEDS: ESCITALOPRAM 20 MG TAB PO SCH (09:20)
[2023-08-06] MEDS: THIAMINE 100 MG TAB PO SCH (09:20)
[2023-08-06] MEDS: METOPROLOL TARTRATE 25 MG TAB PO SCH ×2 (09:31→20:10)
[2023-08-06 10:29] LABS: Anisocytosis Moderate; Basophils % (A) 0 %; Eosinophils % (A) 0 %; HCT 29.7 % (39.0-53.0); Hypochromasia Marked; Lymphocytes # (A) 0.4 k/uL (1.0-4.8); Lymphocytes % (A) 4 %; MCH 26.3 pg (25.0-35.0); MCHC 30.2 g/dL (31.0-37.0); MCV 87.3 fL (80.0-100.0); Mean Platelet Volume 8.3; Monocytes # (A) 0.2 k/uL (0-1.0); Monocytes % (A) 3 %; Neutrophils # (A) 8.5 k/uL (1.3-7.7); Neutrophils % (A) 93 %; Platelet Count 151 k/uL (150-450); Poikilocytosis Slight; RDW 20.5 % (11.5-15.5); WBC 9.1 k/uL (3.8-10.6)
[2023-08-06 10:58] LABS: African American GFR (CKD) 71 (>60 ml/min/1.73 sqM); Blood Urea Nitrogen 20 mg/dL (9-20); Calcium 8.7 mg/dL (8.4-10.2); Chloride 84 mmol/L (98-107); Glucose 175 mg/dL (74-99); Magnesium 1.9 mg/dL (1.6-2.3); Non-African American GFR(CKD) 62 (>60 ml/min/1.73 sqM); Potassium 3.9 mmol/L (3.5-5.1); Sodium 140 mmol/L (137-145)
[2023-08-06 11:04] LABS: Anion Gap 12 mmol/L
[2023-08-06 11:20] LABS: Carbon Dioxide 44 mmol/L (22-30)
--- NOTE | 2023-08-06 11:22 | P.PN ---
Subjective Progress Note Date: 08/06/23 Hospital Course: 72-year-old male with a PMH of COPD, chronic hypoxic respiratory failure on 3 L is a cannula oxygen, mild systolic CHF with EF 45%, A. fib on Eliquis, coronary artery disease, history of TIA, who presents to the emergency room with complaints of shortness of breath. SpO2 in the emergency room was 90% on 3 L NC. Laboratory values was remarkable proBNP 6080, troponin 0.023. Chest x-ray concerning for pulmonary vascular congestion. EKG showed atrial fibrillation with rate control Patient admitted for COPD exacerbation as well as CHF exacerbation. Cardiology consulted. Currently on IV Lasix, bronchodilators. IV steroids. Echocardiogram report reviewed, shows LVEF of 50%, severe right ventricular dilatation with severe pulmonary hypertension. Subjective: Patient seen and examined at bedside. No acute events overnight. Pertinent positives and negatives as discussed above, a complete review of systems was performed and all other systems are negative. Vitals Signs Reviewed. General: nontoxic, no distress, appears at stated age Derm: warm, dry Head: atraumatic, normocephalic, symmetric Eyes: EOMI, no lid lag, anicteric sclera Mouth: no lip lesion, mucus membranes moist Cardiovascular: S1S2 irregular, no murmur Lungs: Bibasilar rales , no accessory muscle use, supplemental oxygen Abdominal: soft, nontender to palpation, no guarding, no appreciable organomegaly Ext: no gross muscle atrophy, no edema, no contractures Neuro: CN II-XI grossly intact, no focal neuro deficits Psych: Alert, oriented, appropriate affect Data Reviewed Today: Pertinent Labs: Hemoglobin 9, platelet 151, BMP and Mg are pending, will be reviewed when available Imaging: No new imaging Assessment and Plan: Active: Acute COPD exacerbation Acute diastolic CHF exacerbation Chronic hypoxic respiratory failure NSTEMI, type 2 History of CAD Acute on Normocytic anemia Acute on Thrombocytopenia -Continue duo nebs 4 times a day, Symbicort twice a day, IV Solu-Medrol 40 mg every 6 hours -Lasix 40 mg IV every 12 hours, monitor renal function and electrolytes -Monitor I's and O's -Daily weights -Cardiology following, aspirin discontinued, started on Plavix, Eliquis de creased to 2.5 mg twice a day, increased Lipitor to 40 mg -Metoprolol increased to 25 twice a day by cardiology Chronic: Hypothyroidism Hypertension Depression DVT ppx: eliquis Code status: FC Anticipated discharge place: pending clinical course Anticipated discharge time: pending clinical course Objective - Vital Signs Vital signs: Vital Signs Temp 97.8 F 08/06/23 08:00 Pulse 92 08/06/23 08:39 Resp 16 08/06/23 08:00 BP 135/83 08/06/23 08:00 Pulse Ox 100 08/06/23 08:00 FiO2 Intake & Output 08/05/23 08/06/23 08/06/23 18:59 06:59 18:59 Intake Total 236 Output Total 800 700 450 Balance -564 -700 -450 Weight 84.368 kg 84 kg Intake: Oral 236 Output: Urine 800 700 450 Other: Voiding Method External Catheter Diaper Diaper # Voids 1 1 - Labs CBC & Chem 7: 08/06/23 09:52 08/06/23 09:52 Labs: Abnormal Lab Results - Last 24 Hours (Table) 08/06/23 08/06/23 Range/Units 09:52 09:52 RBC 3.40 L (4.30-5.90) m/uL Hgb 9.0 L (13.0-17.5) gm/dL Hct 29.7 L (39.0-53.0) % MCHC 30.2 L (31.0-37.0) g/dL RDW 20.5 H (11.5-15.5) % Neutrophils # 8.5 H (1.3-7.7) k/uL Lymphocytes # 0.4 L (1.0-4.8) k/uL Chloride 84 L (98-107) mmol/L Carbon Dioxide 44 H* (22-30) mmol/L Glucose 175 H (74-99) mg/dL
--- NOTE | 2023-08-06 13:56 | P.PN ---
Subjective Progress Note Date: 08/06/23 This is Edu Clark NP, I'm dictating on behalf of Dr. Denny's H&P and A&P. Patient was interviewed and examined. Patient is a pleasant 73-year-old male who presented to the hospital with congestive heart failure exacerbation. Patient reports that he is feeling better, and overall states he is breathing better. He is reporting a mild sore throat with a mildly productive cough. He otherwise denies chest pain, heart palpitations, and dizziness. GENERAL: Well-appearing, well-nourished and in no acute distress. NECK: Supple without JVD or thyromegaly. LUNGS: Breath sounds demonstrate expiratory wheezing and are diminished. Respiration equal and unlabored. No wheezes, rales or rhonchi. HEART: Regular rate and irregular rhythm without murmurs, rubs or gallops. S1 and S2 heard. EXTREMITIES: Normal range of motion, no edema. No clubbing or cyanosis. Peripheral pulses intact and strong. VITALS: Temp 97.8, pulse 95, respirations 16, blood pressure 135/83, O2 saturation 100% on 4.5 L TELEMETRY: Atrial fibrillation with controlled ventricular response LABS: White count 9.1, hemoglobin 9.0, platelets 151, sodium 140, potassium 3.9, B1 20, creatinine 1.16, calcium 8.7, magnesium 1.9 IMPRESSION: 1. Acute diastolic heart failure 2. Altered mental status 3. Abnormal troponin, likely due to CHF 4. CAD 5. COPD 6. Chronic atrial fibrillation 7. Valvular heart disease, status post prior bioprosthetic aortic valve replacement 8. Dyslipidemia 9. Chronic anemia PLAN: Increase metoprolol to 25 mg twice a day. Continue other medications as prescribed. Further recommendations based on patient's clinical course. Objective - Vital Signs Vital signs: Vital Signs Temp 97.8 F 08/06/23 08:00 Pulse 78 08/06/23 12:15 Resp 18 08/06/23 12:00 BP 109/71 08/06/23 12:00 Pulse Ox 89 L 08/06/23 12:00 FiO2 Intake & Output 08/05/23 08/06/23 08/06/23 18:59 06:59 18:59 Intake Total 236 Output Total 800 700 450 Balance -564 -700 -450 Weight 84.368 kg 84 kg Intake: Oral 236 Output: Urine 800 700 450 Other: Voiding Method External Catheter Diaper Diaper # Voids 1 1 - Labs CBC & Chem 7: 08/06/23 09:52 08/06/23 09:52 Labs: Abnormal Lab Results - Last 24 Hours (Table) 08/06/23 08/06/23 Range/Units 09:52 09:52 RBC 3.40 L (4.30-5.90) m/uL Hgb 9.0 L (13.0-17.5) gm/dL Hct 29.7 L (39.0-53.0) % MCHC 30.2 L (31.0-37.0) g/dL RDW 20.5 H (11.5-15.5) % Neutrophils # 8.5 H (1.3-7.7) k/uL Lymphocytes # 0.4 L (1.0-4.8) k/uL Chloride 84 L (98-107) mmol/L Carbon Dioxide 44 H* (22-30) mmol/L Glucose 175 H (74-99) mg/dL
[2023-08-06 16:07] LABS: Glucose,Whole Blood 169 mg/dL (70-110)
[2023-08-06] MEDS: ATORVASTATIN 40 MG TAB PO SCH (20:10)
[2023-08-06] MEDS: MIRTAZAPINE 15 MG TAB PO SCH (20:10)
[2023-08-06 21:07] LABS: Glucose,Whole Blood 185 mg/dL (70-110)
[2023-08-07 06:09] LABS: Glucose,Whole Blood 161 mg/dL (70-110)
[2023-08-07] MEDS: LEVOTHYROXINE 50 MCG TAB PO SCH (06:26)
[2023-08-07] MEDS: PANTOPRAZOLE 40 MG TABLET PO SCH (06:26)
[2023-08-07] MEDS: methylPREDNISolone SOD SUCCI 40 MG/ML 1 ML VIAL IV SCH ×4 (06:26→23:51)
[2023-08-07] MEDS: SYMBICORT 160-4.5 MCG INHALER INHALATION SCH ×2 (07:48→21:40)
[2023-08-07] MEDS: IPRATROPIUM-ALBUTEROL 3 ML NEB INHALATION SCH ×4 (07:48→21:40)
[2023-08-07] MEDS: FOLIC ACID 1 MG TAB PO SCH (08:14)
[2023-08-07] MEDS: APIXABAN 2.5 MG TABLET PO SCH ×2 (08:14→20:05)
[2023-08-07] MEDS: ESCITALOPRAM 20 MG TAB PO SCH (08:14)
[2023-08-07] MEDS: METOPROLOL TARTRATE 25 MG TAB PO SCH (08:14)
[2023-08-07] MEDS: THIAMINE 100 MG TAB PO SCH (08:14)
[2023-08-07] MEDS: CLOPIDOGREL 75 MG TAB PO SCH (08:14)
[2023-08-07] MEDS: FUROSEMIDE 10 MG/ML 4 ML VIAL IV SCH ×2 (08:14→20:06)
[2023-08-07 09:48] LABS: African American GFR (CKD) 66 (>60 ml/min/1.73 sqM); Anion Gap 13 mmol/L; Blood Urea Nitrogen 25 mg/dL (9-20); Calcium 8.8 mg/dL (8.4-10.2); Chloride 85 mmol/L (98-107); Glucose 158 mg/dL (74-99); Magnesium 1.9 mg/dL (1.6-2.3); Non-African American GFR(CKD) 57 (>60 ml/min/1.73 sqM); Potassium 4.5 mmol/L (3.5-5.1); Sodium 138 mmol/L (137-145)
[2023-08-07 10:04] LABS: Carbon Dioxide 40 mmol/L (22-30)
[2023-08-07 11:42] LABS: Glucose,Whole Blood 182 mg/dL (70-110)
--- NOTE | 2023-08-07 12:29 | P.PN ---
Subjective Progress Note Date: 08/07/23 Hospital Course: 72-year-old male with a PMH of COPD, chronic hypoxic respiratory failure on 3 L is a cannula oxygen, mild systolic CHF with EF 45%, A. fib on Eliquis, coronary artery disease, history of TIA, who presents to the emergency room with complaints of shortness of breath. SpO2 in the emergency room was 90% on 3 L NC. Laboratory values was remarkable proBNP 6080, troponin 0.023. Chest x-ray concerning for pulmonary vascular congestion. EKG showed atrial fibrillation with rate control Patient admitted for COPD exacerbation as well as CHF exacerbation. Cardiology consulted. Currently on IV Lasix, bronchodilators. IV steroids. Echocardiogram report reviewed, shows LVEF of 50%, severe right ventricular dilatation with severe pulmonary hypertension. Subjective: Patient seen and examined at bedside. No acute events overnight. Pertinent positives and negatives as discussed above, a complete review of systems was performed and all other systems are negative. Vitals Signs Reviewed. General: nontoxic, no distress, appears at stated age Derm: warm, dry Head: atraumatic, normocephalic, symmetric Eyes: EOMI, no lid lag, anicteric sclera Mouth: no lip lesion, mucus membranes moist Cardiovascular: S1S2 irregular, no murmur Lungs: Bibasilar rales , no accessory muscle use, supplemental oxygen Abdominal: soft, nontender to palpation, no guarding, no appreciable organomegaly Ext: no gross muscle atrophy, no edema, no contractures Neuro: CN II-XI grossly intact, no focal neuro deficits Psych: Alert, oriented, appropriate affect Data Reviewed Today: Pertinent Labs: Potassium 4.5, bicarbonate 40, creatinine 1.2. Imaging: No new imaging Assessment and Plan: Active: Acute COPD exacerbation Acute diastolic CHF exacerbation Chronic hypoxic respiratory failure NSTEMI, type 2 History of CAD Acute on Normocytic anemia Acute on Thrombocytopenia -Continue duo nebs 4 times a day, Symbicort twice a day, IV Solu-Medrol 40 mg every 6 hours -Lasix 40 mg IV every 12 hours, monitor renal function and electrolytes -Monitor I's and O's -Daily weights -Cardiology following, aspirin discontinued, started on Plavix, Eliquis decreased to 2.5 mg twice a day, increased Lipitor to 40 mg -Metoprolol increased to 50 twice a day by cardiology Chronic: Hypothyroidism Hypertension Depression DVT ppx: eliquis Code status: FC Anticipated discharge place: pending clinical course Anticipated discharge time: pending clinical course Objective - Vital Signs Vital signs: Vital Signs Temp 98.3 F 08/07/23 08:10 Pulse 76 08/07/23 11:40 Resp 18 08/07/23 09:52 BP 125/49 08/07/23 08:10 Pulse Ox 93 L 08/07/23 08:10 FiO2 Intake & Output 08/06/23 08/07/23 08/07/23 18:59 06:59 18:59 Intake Total 118 180 580 Output Total 750 340 150 Balance -632 -160 430 Weight 81 kg Intake: Oral 118 180 580 Output: Urine 750 340 150 Other: Voiding Method Diaper Diaper Bedside Commode Urinal Diaper # Voids 1 1 # Bowel Movements 2 - Labs CBC & Chem 7: 08/06/23 09:52 08/07/23 08:45 Labs: Abnormal Lab Results - Last 24 Hours (Table) 08/06/23 08/06/23 08/07/23 Range/Units 16:05 21:05 06:06 Chloride (98-107) mmol/L Carbon Dioxide (22-30) mmol/L BUN (9-20) mg/dL Glucose (74-99) mg/dL POC Glucose (mg/dL) 169 H 185 H 161 H (70-110) mg/dL 08/07/23 08/07/23 Range/Units 08:45 11:39 Chloride 85 L (98-107) mmol/L Carbon Dioxide 40 H (22-30) mmol/L BUN 25 H (9-20) mg/dL Glucose 158 H (74-99) mg/dL POC Glucose (mg/dL) 182 H (70-110) mg/dL
--- NOTE | 2023-08-07 13:50 | P.PN ---
Subjective Progress Note Date: 08/07/23 This is Edu Clark NP, I'm dictating on behalf of Dr. Denny's H&P and A&P. Patient was interviewed and examined. Patient is a pleasant 73-year-old male who presented to the hospital with congestive heart failure exacerbation. Today patient reports that he is continuing to feel better. He again reports that he is breathing better today. Patient demonstrates rhonchi in the right lower lung lobe upon auscultation. He reports he has been getting up and ambulating around his room. He otherwise d enies chest pain, heart palpitations, and reports mild shortness of breath with exertion. GENERAL: Well-appearing, well-nourished and in no acute distress. NECK: Supple without JVD or thyromegaly. LUNGS: Breath sounds demonstrate rhonchi in the right lower lobe. Respiration equal and unlabored. No wheezes, rales. HEART: Regular rate and irregular rhythm without murmurs, rubs or gallops. S1 and S2 heard. EXTREMITIES: Normal range of motion, no edema. No clubbing or cyanosis. Peripheral pulses intact and strong. VITALS: Temp 98.3, pulse 86, respirations 18, blood pressure 125/49, O2 saturation 93% on 3 L TELEMETRY: Atrial fibrillation with controlled ventricular response LABS: Sodium 138, potassium 4.5, BUN 25, creatinine 1.23, calcium 8.8, magnesium 1.9 IMPRESSION: 1. Acute diastolic heart failure 2. Altered mental status 3. Abnormal troponin, likely due to CHF 4. CAD 5. COPD 6. Chronic atrial fibrillation 7. Valvular heart disease, status post prior bioprosthetic aortic valve replacement 8. Dyslipidemia 9. Chronic anemia PLAN: Recommend one more day of IV Lasix, then switch to oral. Increase metoprolol to 50 mg twice a day. Further recommendations based on patient's clinical course. Objective - Vital Signs Vital signs: Vital Signs Temp 98.3 F 08/07/23 08:10 Pulse 76 08/07/23 11:40 Resp 18 08/07/23 09:52 BP 125/49 08/07/23 08:10 Pulse Ox 93 L 08/07/23 08:10 FiO2 Intake & Output 08/06/23 08/07/23 08/07/23 18:59 06:59 18:59 Intake Total 118 180 690 Output Total 750 340 150 Balance -632 -160 540 Weight 81 kg Intake: Oral 118 180 690 Output: Urine 750 340 150 Other: Voiding Method Diaper Diaper Bedside Commode Urinal Diaper # Voids 1 1 # Bowel Movements 2 - Labs CBC & Chem 7: 08/06/23 09:52 08/07/23 08:45 Labs: Abnormal Lab Results - Last 24 Hours (Table) 08/06/23 08/06/23 08/07/23 Range/Units 16:05 21:05 06:06 Chloride (98-107) mmol/L Carbon Dioxide (22-30) mmol/L BUN (9-20) mg/dL Glucose (74-99) mg/dL POC Glucose (mg/dL) 169 H 185 H 161 H (70-110) mg/dL 08/07/23 08/07/23 Range/Units 08:45 11:39 Chloride 85 L (98-107) mmol/L Carbon Dioxide 40 H (22-30) mmol/L BUN 25 H (9-20) mg/dL Glucose 158 H (74-99) mg/dL POC Glucose (mg/dL) 182 H (70-110) mg/dL
[2023-08-07 16:12] LABS: Glucose,Whole Blood 158 mg/dL (70-110)
[2023-08-07] MEDS: guaiFENesin 600 MG TABLET.ER PO PRN (17:08)
[2023-08-07] MEDS: BENZOCAINE/MENTHOL LOZENG 1 EACH LOZENGE MUCOUS MEM PRN (18:29)
[2023-08-07] MEDS: ATORVASTATIN 40 MG TAB PO SCH (20:05)
[2023-08-07] MEDS: METOPROLOL TARTRATE 50 MG TAB PO SCH (20:06)
[2023-08-07] MEDS: MIRTAZAPINE 15 MG TAB PO SCH (20:06)
[2023-08-07 20:13] LABS: Glucose,Whole Blood 191 mg/dL (70-110)
[2023-08-08] MEDS: LEVOTHYROXINE 50 MCG TAB PO SCH (06:04)
[2023-08-08] MEDS: methylPREDNISolone SOD SUCCI 40 MG/ML 1 ML VIAL IV SCH ×2 (06:04→20:01)
[2023-08-08] MEDS: PANTOPRAZOLE 40 MG TABLET PO SCH (06:04)
[2023-08-08 06:10] LABS: Glucose,Whole Blood 181 mg/dL (70-110)
[2023-08-08] MEDS: IPRATROPIUM-ALBUTEROL 3 ML NEB INHALATION SCH ×4 (08:15→21:30)
[2023-08-08] MEDS: SYMBICORT 160-4.5 MCG INHALER INHALATION SCH ×2 (08:15→21:30)
[2023-08-08] MEDS: ESCITALOPRAM 20 MG TAB PO SCH (09:23)
[2023-08-08] MEDS: METOPROLOL TARTRATE 50 MG TAB PO SCH ×2 (09:23→20:01)
[2023-08-08] MEDS: FOLIC ACID 1 MG TAB PO SCH (09:23)
[2023-08-08] MEDS: APIXABAN 2.5 MG TABLET PO SCH ×2 (09:23→20:01)
[2023-08-08] MEDS: THIAMINE 100 MG TAB PO SCH (09:23)
[2023-08-08] MEDS: CLOPIDOGREL 75 MG TAB PO SCH (09:23)
[2023-08-08] MEDS: FUROSEMIDE 10 MG/ML 4 ML VIAL IV SCH ×2 (09:23→20:00)
[2023-08-08] MEDS: guaiFENesin 600 MG TABLET.ER PO PRN (09:28)
[2023-08-08 10:07] LABS: African American GFR (CKD) 64 (>60 ml/min/1.73 sqM); Blood Urea Nitrogen 35 mg/dL (9-20); Calcium 8.7 mg/dL (8.4-10.2); Chloride 85 mmol/L (98-107); Glucose 208 mg/dL (74-99); Non-African American GFR(CKD) 55 (>60 ml/min/1.73 sqM); Sodium 138 mmol/L (137-145)
[2023-08-08 10:15] LABS: Anion Gap 10 mmol/L
[2023-08-08 10:20] LABS: Carbon Dioxide 43 mmol/L (22-30)
[2023-08-08 11:20] LABS: Glucose,Whole Blood 195 mg/dL (70-110)
[2023-08-08] MEDS ORDERED: IPRATROPIUM-ALBUTEROL 3 ML NEB INHALATION PRN (11:34)
--- NOTE | 2023-08-08 11:45 | P.PN ---
Subjective Progress Note Date: 08/08/23 Hospital course: Patient is a very pleasant 73-year-old male with a past medical history of CAD with stenting, hypertension, hyperlipidemia, chonic atrial fibrillation on Eliquis, aortic valve bioprosthetic valve replacement, chronic systolic heart failure with EF of 45%, DVTs, and COPD with chronic hypoxic and hypercarbic respiratory failure requiring continuous oxygen supplementation with 3 L O2 via nasal cannula. Patient presented to the emergency department on 08/04/23 with a c hief complaint of shortness of breath. He underwent full evaluation in the emergency department. EKG showing atrial fibrillation with controlled ventricular rate. Chest x-ray was concerning for cardiomegaly and pulmonary vascular congestion with bilateral pleural effusions consistent with CHF. CT head was also completed which was negative for acute intracranial process revealing a remote left parietal infarct along with nonspecific white matter changes secondary to chronic microangiopathy. Labs were completed and reviewed. CBC showing bicytopenia with hemoglobin of 8.3 and platelet count of 137. Coagulation profile showing elevated PT of 12.7, INR 1.2, and PTT of 33.3. Venous Blood gases showing a pH of 7.45, pCO2 of 70, and bicarb of 48. BMP revealing chloride of 82, bicarb of 44, and a mean Of 10 with slight elevation of renal function with creatinine of 1.32. Glucose was normal findings at 101, lactic acid 1.6, and magnesium 1.8. Liver profile showing slightly elevated al kaline phosphatase of 150 otherwise normal findings. Initial troponin was elevated at 0.046. Urinalysis negative for infection and influenza A, influenza B, RSV, and Covid PCR were all negative. Patient was admitted under our services with consultation to cardiology. Troponins trended overnight resulting at 1.023, 0.039, 0.046, and 0.026. TSH 1.590. Echocardiogram completed showing preserved EF of 50% along with some atypical septal motion and septal flattening secondary to pressure and volume overload and right ventricular enlargement with severe pulmonary hypertension. Physical exam: Patient seen and fully evaluated at bedside this morning. Patient was sitting up in the chair and currently reports feeling better but with continued shortness of breath in which he reports worsens with exertion. Patient denies having any dizziness, lightheadedness, chest pain, palpitations, experiencing any numbness/tingling/weakness in his extremities. Vital signs reviewed and stable. General: Nontoxic, no distress and appears stated age. Derm: Skin warm and dry, normal coloration for ethnicity. Head: Atraumatic, normocephalic and symmetric. Eyes: EOMs intact, no lid lag, and anicteric sclera Mouth: no lip lesions, mucus membranes moist Cardiovascular: regular rate and rhythm with normal S1S2, systolic murmur, positive posterior tibial pulses bilaterally, and cap refill < 2 seconds. Lungs: Respirations even, regular, and unlabored on room air. Lungs with diffuse rhonchi bilaterally and soft expiratory wheezes. Abdominal: soft, nontender to palpation, no guarding, no appreciable organomegaly Ext: ROM intact. No gross muscle atrophy, 1+ pitting bilateral lower extremity edema, no contractures Neuro: Speech clear, face symmetrical and CN II-XII grossly intact with no noted focal neuro deficits Psych: Alert and oriented to person, place, time, and situation. Appropriate and pleasant affect. Assessment and Plan of Care: Acute COPD exacerbation Acute diastolic CHF exacerbation Severe pulmonary hypertension Chronic hypoxic respiratory failure NSTEMI, type 2 History of CAD Acute on chronic Normocytic anemia Acute on chronic Thrombocytopenia Hypothyroidism Hypertension GERD Depression -Cardiology following, discontinued aspirin and started patient on Plavix 75 mg daily and decreased Eliquis to 2.5 mg twice daily. -Patient to continue Eliquis 2.5 mg twice daily, atorvastatin 40 mg nightly, Symbicort 160-4.5 mcg 2 puffs twice a day, Plavix 75 mg daily, levothyroxine 50 g daily, metoprolol 50 mg twice daily, Protonix 40 mg daily Lexapro 20 mg daily, and thiamine 100 mg daily. -Echocardiogram completed showing preserved EF of 50% along with some atypical septal motion and septal flattening secondary to pressure and volume overload and right ventricular enlargement with severe pulmonary hypertension. -Oxygenation to be administered and titrated as needed to maintain SPO2 equal to or greater than 92% -Telemetry monitoring. -Monitor Pulse-oximetry -Duonebs scheduled 4 times daily and as needed for SOB and/or wheezing -Incentive Spirometry -Steroids: Solu-Medrol 40 mg IVP every 12 hours with plans to transition to oral prednisone tomorrow -Diuretics: Lasix 40 mg IVP every 12 hours -Continue close monitoring of intake and output and daily weights, patient has documented output of 1070 mL over the past 24 hours. Data and imaging reviewed: BMP showing hypochloremia with chloride of 85, hypercarbia with bicarb of 43, and anion gap of 10 with renal function showing BUN of 35, creatinine 1.27, and GFR 55. Vital signs reviewed. Blood pressure 120/74, heart rate 82, respiratory rate 20, temp 98.3F, and SpO2 of 92% on 3 L O2 via nasal cannula. DVT ppx: Eliquis Code status: Full Code Anticipated discharge place: pending clinical course Anticipated discharge time: pending clinical course Patient was seen independently by Nurse Pracitioner. This document was prepared using [employer] dictation software. Please allow for errors in aquaculture and fisheries professor, while rare they do occur. Objective - Vital Signs Vital signs: Vital Signs Temp 98.0 F 08/08/23 04:00 Pulse 82 08/08/23 04:00 Resp 19 08/08/23 04:00 BP 100/61 08/08/23 04:00 Pulse Ox 90 L 08/08/23 04:00 FiO2 Intake & Output 08/07/23 08/08/23 08/08/23 18:59 06:59 18:59 Intake Total 930 Output Total 750 320 Balance 180 -320 Weight 80.8 kg Intake: Oral 930 Output: Urine 750 320 Other: Voiding Method Bedside Commode Bedside Commode Urinal Urinal Diaper Diaper # Voids 1 # Bowel Movements 1 - Labs CBC & Chem 7: 08/06/23 09:52 08/08/23 08:38 Labs: Abnormal Lab Results - Last 24 Hours (Table) 08/07/23 08/07/23 08/07/23 Range/Units 08:45 11:39 16:10 Chloride 85 L (98-107) mmol/L Carbon Dioxide 40 H (22-30) mmol/L BUN 25 H (9-20) mg/dL Glucose 158 H (74-99) mg/dL POC Glucose (mg/dL) 182 H 158 H (70-110) mg/dL 08/07/23 08/08/23 Range/Units 20:11 06:08 Chloride (98-107) mmol/L Carbon Dioxide (22-30) mmol/L BUN (9-20) mg/dL Glucose (74-99) mg/dL POC Glucose (mg/dL) 191 H 181 H (70-110) mg/dL
--- NOTE | 2023-08-08 13:00 | P.PN ---
Subjective HISTORY OF PRESENT ILLNESS: This is a 73-year-old male patient of Dr. Deep Santana with past medical history significant for coronary artery disease status post PCI of the proximal LAD in 2017, hypertension, dyslipidemia, valvular heart disease status post aortic valve replacement, Permanent atrial fibrillation (on Eliquis), chronic aortic dissection, COPD, history of CVA, and former nicotine dependence. We have been asked to see the patient for heart failure. Patient gives history that he was at the [place] [facility] was noted to have mental status changes and was sent here. Patient complains of feeling dizzy and had a fall at home. He does complain of cough. No chest pain. Patient is a poor historian. Patient is seen today in the emergency center waiting for a bed on the cardiac stepdown unit. Patient is status post Lasix 40 mg 1 and continued on 40 mg every 12 hours. EKG reveals atrial fibrillation, heart rate [address] changes in inferior lateral leads, #[address]-T wave changes Chest xray cardiomegaly, pulmonary vascular congestion and bilateral pleural effusions. CAT scan of the brain revealed no acute intracranial process. Remote left parietal infarct along with nonspecific white matter changes likely secondary to small vessel ischemic change. Echocardiogram 08/04/2023 revealed normal LV size and fair systolic function with some apical septal motion and septal flattening secondary to pressure and volume overload. Severe pulmonary hypertension. Aortic valve sclerosis. No signific ant gradient. EF 50%. WBC 5, hemoglobin 8.7, platelet count 140. Sodium 138, potassium 3.2, chloride 83, CO2 40, BUN 16 creatinine 1.19. Troponin 0.039, 0.046, 0.026. TSH 1.59. Urinalysis negative for infection. Current home medications include Eliquis 5 mg twice a day, atorvastatin 20 mg at bedtime, Lasix 40 mg ice daily, metoprolol tartrate 12.5 mg twice a day, levothyroxine 50 g daily Lexiscan Cardiolite stress test 04/2022 negative 08/07/2023 Patient is a pleasant 73-year-old male who presented to the hospital with congestive heart failure exacerbation. Today patient reports that he is continuing to feel better. He again reports that he is breathing better today. Patient demonstrates rhonchi in the right lower lung lobe upon auscultation. He reports he has been getting up and ambulating around his room. He otherwise denies chest pain, heart palpitations, and reports mild shortness of breath with exertion. 08/08/2023 Patient examined this morning at the bedside. Patient currently denies chest pain or pressure. He reports mild shortness of breath. He remains on 3 L nasal cannula with oxygen saturations greater than 92%. He remains on IV diuretics 40 mg every 12 hours PHYSICAL EXAM: VITAL SIGNS: Reviewed. GENERAL: Well-developed in no acute distress. NECK: Supple. No JVD or thyromegaly LUNGS: Respirations even and unlabored. Lungs with rhonchi noted bilaterally HEART: Regular rate and rhythm. S1 and S2 heard. Systolic murmur. EXTREMITIES: Normal range of motion. No clubbing or cyanosis. Peripheral pulses intact. Trace bilateral lower extremity edema ASSESSMENT: Acute exacerbation of congestive heart failure with preserved EF Altered mental status Abnormal troponins, likely secondary to type II ME secondary to oxygen supply and demand mismatch Coronary artery disease with previous PCI to proximal LAD, 2017 Permanent atrial fibrillation Valvular heart disease, status post bioprosthetic aortic valve replacement History of COPD Hyperlipidemia Nicotine dependence PLAN: Continue current cardiac medications Continue IV diuretics for an additional 24 hours Daily weights, accurate I&O, and monitor kidney function Further recommendations pending patient's course Nurse practitioner note has been reviewed by physician. Signing provider agrees with the documented findings, assessment, and plan of care. Objective - Vital Signs Vital signs: Vital Signs Temp 98.3 F 08/08/23 09:20 Pulse 80 08/08/23 12:03 Resp 20 08/08/23 09:20 BP 120/74 08/08/23 09:20 Pulse Ox 92 L 08/08/23 09:20 FiO2 Intake & Output 08/07/23 08/08/23 08/08/23 18:59 06:59 18:59 Intake Total 930 110 Output Total 750 320 Balance 180 -320 110 Weight 80.8 kg Intake: Oral 930 110 Output: Urine 750 320 Other: Voiding Method Bedside Commode Bedside Commode Urinal Urinal Diaper Diaper # Voids 1 # Bowel Movements 1 - Labs CBC & Chem 7: 08/06/23 09:52 08/08/23 08:38 Labs: Abnormal Lab Results - Last 24 Hours (Table) 08/07/23 08/07/23 08/08/23 Range/Units 16:10 20:11 06:08 Chloride (98-107) mmol/L Carbon Dioxide (22-30) mmol/L BUN (9-20) mg/dL Creatinine (0.66-1.25) mg/dL Glucose (74-99) mg/dL POC Glucose (mg/dL) 158 H 191 H 181 H (70-110) mg/dL 08/08/23 08/08/23 Range/Units 08:38 11:17 Chloride 85 L (98-107) mmol/L Carbon Dioxide 43 H* (22-30) mmol/L BUN 35 H (9-20) mg/dL Creatinine 1.27 H (0.66-1.25) mg/dL Glucose 208 H (74-99) mg/dL POC Glucose (mg/dL) 195 H (70-110) mg/dL
[2023-08-08 16:38] LABS: Glucose,Whole Blood 137 mg/dL (70-110)
[2023-08-08] MEDS: BENZOCAINE/MENTHOL LOZENG 1 EACH LOZENGE MUCOUS MEM PRN (18:11)
[2023-08-08] MEDS: MIRTAZAPINE 15 MG TAB PO SCH (20:01)
[2023-08-08] MEDS: ATORVASTATIN 40 MG TAB PO SCH (20:01)
[2023-08-08 20:40] LABS: Glucose,Whole Blood 152 mg/dL (70-110)
[2023-08-09 06:21] LABS: Glucose,Whole Blood 147 mg/dL (70-110)
[2023-08-09] MEDS: PANTOPRAZOLE 40 MG TABLET PO SCH (06:39)
[2023-08-09] MEDS: LEVOTHYROXINE 50 MCG TAB PO SCH (06:39)
[2023-08-09] MEDS: CLOPIDOGREL 75 MG TAB PO SCH (08:06)
[2023-08-09] MEDS: THIAMINE 100 MG TAB PO SCH (08:06)
[2023-08-09] MEDS: APIXABAN 2.5 MG TABLET PO SCH ×2 (08:06→20:09)
[2023-08-09] MEDS: ESCITALOPRAM 20 MG TAB PO SCH (08:06)
[2023-08-09] MEDS: FUROSEMIDE 10 MG/ML 4 ML VIAL IV SCH (08:06)
[2023-08-09] MEDS: METOPROLOL TARTRATE 50 MG TAB PO SCH ×2 (08:06→20:09)
[2023-08-09] MEDS: methylPREDNISolone SOD SUCCI 40 MG/ML 1 ML VIAL IV SCH (08:06)
[2023-08-09] MEDS: FOLIC ACID 1 MG TAB PO SCH (08:06)
[2023-08-09] MEDS: SYMBICORT 160-4.5 MCG INHALER INHALATION SCH ×2 (08:21→21:34)
[2023-08-09] MEDS: IPRATROPIUM-ALBUTEROL 3 ML NEB INHALATION SCH ×4 (08:21→21:35)
[2023-08-09 09:10] LABS: Anisocytosis Slight; HCT 26.6 % (39.0-53.0); Hypochromasia Marked; MCH 26.6 pg (25.0-35.0); MCHC 30.1 g/dL (31.0-37.0); MCV 88.3 fL (80.0-100.0); Mean Platelet Volume 8.5; Platelet Count 133 k/uL (150-450); RBC 3.01 m/uL (4.30-5.90); WBC 7.5 k/uL (3.8-10.6)
[2023-08-09 09:56] LABS: ALT 12 U/L (4-49); AST 24 U/L (17-59); African American GFR (CKD) 70 (>60 ml/min/1.73 sqM); Albumin 3.4 g/dL (3.5-5.0); Alkaline Phosphatase 99 U/L (38-126); Blood Urea Nitrogen 38 mg/dL (9-20); Calcium 8.4 mg/dL (8.4-10.2); Chloride 86 mmol/L (98-107); Glucose 146 mg/dL (74-99); Non-African American GFR(CKD) 61 (>60 ml/min/1.73 sqM); Potassium 3.7 mmol/L (3.5-5.1); Sodium 140 mmol/L (137-145); Total Bilirubin 0.5 mg/dL (0.2-1.3); Total Protein 6.5 g/dL (6.3-8.2)
[2023-08-09 10:02] LABS: Anion Gap 11 mmol/L
[2023-08-09 10:05] LABS: Carbon Dioxide 43 mmol/L (22-30)
[2023-08-09 11:13] LABS: Glucose,Whole Blood 131 mg/dL (70-110)
[2023-08-09 11:26] VITALS: BMI 29.2
--- NOTE | 2023-08-09 11:32 | P.PN ---
Subjective Progress Note Date: 08/09/23 Hospital course: Patient is a very pleasant 73-year-old male with a past medical history of CAD with stenting, hypertension, hyperlipidemia, chonic atrial fibrillation on Eliquis, aortic valve bioprosthetic valve replacement, chronic systolic heart failure with EF of 45%, DVTs, and COPD with chronic hypoxic and hypercarbic respiratory failure requiring continuous oxygen supplementation with 3 L O2 via nasal cannula. Patient presented to the emergency department on 08/04/23 with a c hief complaint of shortness of breath. He underwent full evaluation in the emergency department. EKG showing atrial fibrillation with controlled ventricular rate. Chest x-ray was concerning for cardiomegaly and pulmonary vascular congestion with bilateral pleural effusions consistent with CHF. CT head was also completed which was negative for acute intracranial process revealing a remote left parietal infarct along with nonspecific white matter changes secondary to chronic microangiopathy. Labs were completed and reviewed. CBC showing bicytopenia with hemoglobin of 8.3 and platelet count of 137. Coagulation profile showing elevated PT of 12.7, INR 1.2, and PTT of 33.3. Venous Blood gases showing a pH of 7.45, pCO2 of 70, and bicarb of 48. BMP revealing chloride of 82, bicarb of 44, and a mean Of 10 with slight elevation of renal function with creatinine of 1.32. Glucose was normal findings at 101, lactic acid 1.6, and magnesium 1.8. Liver profile showing slightly elevated al kaline phosphatase of 150 otherwise normal findings. Initial troponin was elevated at 0.046. Urinalysis negative for infection and influenza A, influenza B, RSV, and Covid PCR were all negative. Patient was admitted under our services with consultation to cardiology. Troponins trended overnight resulting at 1.023, 0.039, 0.046, and 0.026. TSH 1.590. Echocardiogram completed showing preserved EF of 50% along with some atypical septal motion and septal flattening secondary to pressure and volume overload and right ventricular enlargement with severe pulmonary hypertension. Physical exam: Patient seen and fully evaluated at bedside this morning. Patient was sitting up in the chair and appears to be doing well. Patient reports continued improvement but still slightly short of breath. Patient currently maintaining SpO2 greater than 90% on baseline oxygen needs as 3 L nasal cannula. Vital signs reviewed and stable. General: Nontoxic, no distress and appears stated age. Derm: Skin warm and dry, normal coloration for ethnicity. Head: Atraumatic, normocephalic and symmetric. Eyes: EOMs intact, no lid lag, and anicteric sclera Mouth: no lip lesions, mucus membranes moist Cardiovascular: regular rate and rhythm with normal S1S2, systolic murmur, positive posterior tibial pulses bilaterally, and cap refill < 2 seconds. Lungs: Respirations even, regular, and unlabored on room air. Lungs with diffuse rhonchi bilaterally and soft expiratory wheezes. Abdominal: soft, nontender to palpation, no guarding, no appreciable organomegaly Ext: ROM intact. No gross muscle atrophy, 1+ pitting bilateral lower extremity edema, no contractures Neuro: Speech clear, face symmetrical and CN II-XII grossly intact with no noted focal neuro deficits Psych: Alert and oriented to person, place, time, and situation. Appropriate and pleasant affect. Assessment and Plan of Care: Acute COPD exacerbation Acute diastolic CHF exacerbation Severe pulmonary hypertension Chronic hypoxic respiratory failure NSTEMI, type 2 History of CAD Acute on chronic Normocytic anemia Acute on chronic Thrombocytopenia Hypothyroidism Hypertension GERD Depression -Cardiology following, discontinued aspirin and started patient on Plavix 75 mg daily and decreased Eliquis to 2.5 mg twice daily. -Patient to continue Eliquis 2.5 mg twice daily, atorvastatin 40 mg nightly, Symbicort 160-4.5 mcg 2 puffs twice a day, Plavix 75 mg daily, levothyroxine 50 g daily, metoprolol 50 mg twice daily, Protonix 40 mg daily Lexapro 20 mg daily, and thiamine 100 mg daily. -Echocardiogram completed showing preserved EF of 50% along with some atypical septal motion and septal flattening secondary to pressure and volume overload and right ventricular enlargement with severe pulmonary hypertension. -Oxygenation to be administered and titrated as needed to maintain SPO2 equal to or greater than 92% -Telemetry monitoring. -Monitor Pulse-oximetry -Duonebs scheduled 4 times daily and as needed for SOB and/or wheezing -Incentive Spirometry -Steroids: Patient received Solu-Medrol 40 mg IVP this morning into transitioned to prednisone 40 mg daily tomorrow morning followed by taper -Diuretics: Patient received IV Lasix 40 mg IVP this morning and to transition to oral Lasix this afternoon. -Continue close monitoring of intake and output and daily weights Data and imaging reviewed: Labs completed and reviewed, CBC showing bicytopenia with hemoglobin of 8.0 and platelet count of 133. BMP revealing hypochloremia with chloride of 86, hypercarbia with bicarb of 43, and prerenal azotemia with elevated BUN of 38. Liver profile unremarkable with the exception of hypoalbuminemia with albumin of 3.4. Vital signs reviewed. Blood pressure 111/74, heart rate 68, respiratory rate 17, temp 97.4F, and SpO2 98% on baseline 3 L. DVT ppx: Eliquis Code status: Full Code Anticipated discharge place: Home with home care Anticipated discharge date: Within the next 24 hours Patient was seen independently by Nurse Pracitioner. This document was prepared using [employer] dictation software. Please allow for errors in aerial gunner superintendent, while rare they do occur. Objective - Vital Signs Vital signs: Vital Signs Temp 97.7 F 08/09/23 04:00 Pulse 67 08/09/23 04:00 Resp 19 08/09/23 04:00 BP 91/44 08/09/23 04:00 Pulse Ox 89 L 08/09/23 04:00 FiO2 Intake & Output 08/08/23 08/09/23 08/09/23 18:59 06:59 18:59 Intake Total 330 120 Output Total 500 Balance 330 -380 Weight 90 kg Intake: Oral 330 120 Output: Urine 500 Other: Voiding Method Bedside Commode Bedside Commode Urinal Urinal Diaper Diaper - Labs CBC & Chem 7: 08/09/23 08:50 08/09/23 08:50 Labs: Abnormal Lab Results - Last 24 Hours (Table) 08/08/23 08/08/23 08/08/23 Range/Units 08:38 11:17 16:36 Chloride 85 L (98-107) mmol/L Carbon Dioxide 43 H* (22-30) mmol/L BUN 35 H (9-20) mg/dL Creatinine 1.27 H (0.66-1.25) mg/dL Glucose 208 H (74-99) mg/dL POC Glucose (mg/dL) 195 H 137 H (70-110) mg/dL 08/08/23 08/09/23 Range/Units 20:38 06:20 Chloride (98-107) mmol/L Carbon Dioxide (22-30) mmol/L BUN (9-20) mg/dL Creatinine (0.66-1.25) mg/dL Glucose (74-99) mg/dL POC Glucose (mg/dL) 152 H 147 H (70-110) mg/dL
--- NOTE | 2023-08-09 13:21 | P.PN ---
Subjective HISTORY OF PRESENT ILLNESS: This is a 73-year-old male patient of Dr. Deep Santana with past medical history significant for coronary artery disease status post PCI of the proximal LAD in 2017, hypertension, dyslipidemia, valvular heart disease status post aortic valve replacement, Permanent atrial fibrillation (on Eliquis), chronic aortic dissection, COPD, history of CVA, and former nicotine dependence. We have been asked to see the patient for heart failure. Patient gives history that he was at the [place] clinic was noted to have mental status changes and was sent here. Patient complains of feeling dizzy and had a fall at home. He does complain of cough. No chest pain. Patient is a poor historian. Patient is seen today in the emergency center waiting for a bed on the cardiac stepdown unit. Patient is status post Lasix 40 mg 1 and continued on 40 mg every 12 hours. EKG reveals atrial fibrillation, heart rate [address] changes in inferior lateral leads, #[address]-T wave changes Chest xray cardiomegaly, pulmonary vascular congestion and bilateral pleural effusions. CAT scan of the brain revealed no acute intracranial process. Remote left parietal infarct along with nonspecific white matter changes likely secondary to small vessel ischemic change. Echocardiogram 08/04/2023 revealed normal LV size and fair systolic function with some apical septal motion and septal flattening secondary to pressure and volume overload. Severe pulmonary hypertension. Aortic valve sclerosis. No signific ant gradient. EF 50%. WBC 5, hemoglobin 8.7, platelet count 140. Sodium 138, potassium 3.2, chloride 83, CO2 40, BUN 16 creatinine 1.19. Troponin 0.039, 0.046, 0.026. TSH 1.59. Urinalysis negative for infection. Current home medications include Eliquis 5 mg twice a day, atorvastatin 20 mg at bedtime, Lasix 40 mg ice daily, metoprolol tartrate 12.5 mg twice a day, levothyroxine 50 g daily Lexiscan Cardiolite stress test 04/2022 negative 08/07/2023 Patient is a pleasant 73-year-old male who presented to the hospital with congestive heart failure exacerbation. Today patient reports that he is continuing to feel better. He again reports that he is breathing better today. Patient demonstrates rhonchi in the right lower lung lobe upon auscultation. He reports he has been getting up and ambulating around his room. He otherwise denies chest pain, heart palpitations, and reports mild shortness of breath with exertion. 08/08/2023 Patient examined this morning at the bedside. Patient currently denies chest pain or pressure. He reports mild shortness of breath. He remains on 3 L nasal cannula with oxygen saturations greater than 92%. He remains on IV diuretics 40 mg every 12 hours 08/09/2023 Patient examined this morning at the bedside. Patient denies chest pain or pressure. He denies shortness of breath. He remains on IV diuretics. Vital signs are stable. PHYSICAL EXAM: VITAL SIGNS: Reviewed. GENERAL: Well-developed in no acute distress. NECK: Supple. No JVD or thyromegaly LUNGS: Respirations even and unlabored. Lungs with rhonchi noted bilaterally HEART: Regular rate and rhythm. S1 and S2 heard. Systolic murmur. EXTREMITIES: Normal range of motion. No clubbing or cyanosis. Peripheral pulses intact. Trace bilateral lower extremity edema ASSESSMENT: Acute exacerbation of congestive heart failure with preserved EF Altered mental status Abnormal troponins, likely secondary to type II [place] secondary to oxygen supply and demand mismatch Coronary artery disease with previous PCI to proximal LAD, 2017 Permanent atrial fibrillation Valvular heart disease, status post bioprosthetic aortic valve replacement History of COPD Hyperlipidemia Nicotine dependence PLAN: Continue current cardiac medications Continue IV Lasix. Resume oral diuretics Patient is stable for discharge today from a cardiac perspective We will sign off. Please reconsult if needed. Nurse practitioner note has been reviewed by physician. Signing provider agrees with the documented findings, assessment, and plan of care. Objective - Vital Signs Vital signs: Vital Signs Temp 98.2 F 08/09/23 11:28 Pulse 72 08/09/23 12:08 Resp 16 08/09/23 11:28 BP 130/72 08/09/23 11:28 Pulse Ox 96 08/09/23 11:28 FiO2 Intake & Output 08/08/23 08/09/23 08/09/23 18:59 06:59 18:59 Intake Total 330 120 110 Output Total 500 600 Balance 330 -380 -490 Weight 90 kg 90 kg Intake: Oral 330 120 110 Output: Urine 500 600 Other: Voiding Method Bedside Commode Bedside Commode Bedside Commode Urinal Urinal Urinal Diaper Diaper Diaper # Bowel Movements 1 - Labs CBC & Chem 7: 08/09/23 08:50 08/09/23 08:50 Labs: Abnormal Lab Results - Last 24 Hours (Table) 08/08/23 08/08/23 08/09/23 Range/Units 16:36 20:38 06:20 RBC (4.30-5.90) m/uL Hgb (13.0-17.5) gm/dL Hct (39.0-53.0) % MCHC (31.0-37.0) g/dL RDW (11.5-15.5) % Plt Count (150-450) k/uL Chloride (98-107) mmol/L Carbon Dioxide (22-30) mmol/L BUN (9-20) mg/dL Glucose (74-99) mg/dL POC Glucose (mg/dL) 137 H 152 H 147 H (70-110) mg/dL Albumin (3.5-5.0) g/dL 08/09/23 08/09/23 08/09/23 Range/Units 08:50 08:50 11:12 RBC 3.01 L (4.30-5.90) m/uL Hgb 8.0 L (13.0-17.5) gm/dL Hct 26.6 L (39.0-53.0) % MCHC 30.1 L (31.0-37.0) g/dL RDW 20.0 H (11.5-15.5) % Plt Count 133 L (150-450) k/uL Chloride 86 L (98-107) mmol/L Carbon Dioxide 43 H* (22-30) mmol/L BUN 38 H (9-20) mg/dL Glucose 146 H (74-99) mg/dL POC Glucose (mg/dL) 131 H (70-110) mg/dL Albumin 3.4 L (3.5-5.0) g/dL
[2023-08-09 16:21] LABS: Glucose,Whole Blood 150 mg/dL (70-110)
[2023-08-09] MEDS: BENZOCAINE/MENTHOL LOZENG 1 EACH LOZENGE MUCOUS MEM PRN (16:56)
[2023-08-09] MEDS: FUROSEMIDE 40 MG TAB PO SCH (16:56)
[2023-08-09] MEDS: ATORVASTATIN 40 MG TAB PO SCH (20:09)
[2023-08-09] MEDS: MIRTAZAPINE 15 MG TAB PO SCH (20:09)
[2023-08-09 21:21] LABS: Glucose,Whole Blood 129 mg/dL (70-110)
[2023-08-10 05:47] LABS: Glucose,Whole Blood 111 mg/dL (70-110)
[2023-08-10] MEDS: LEVOTHYROXINE 50 MCG TAB PO SCH (06:19)
[2023-08-10] MEDS: PANTOPRAZOLE 40 MG TABLET PO SCH (06:19)
[2023-08-10] MEDS: FOLIC ACID 1 MG TAB PO SCH (08:05)
[2023-08-10] MEDS: CLOPIDOGREL 75 MG TAB PO SCH (08:05)
[2023-08-10] MEDS: METOPROLOL TARTRATE 50 MG TAB PO SCH (08:06)
[2023-08-10] MEDS: FUROSEMIDE 40 MG TAB PO SCH (08:06)
[2023-08-10] MEDS: ESCITALOPRAM 20 MG TAB PO SCH (08:06)
[2023-08-10] MEDS: SYMBICORT 160-4.5 MCG INHALER INHALATION SCH (08:06)
[2023-08-10] MEDS: IPRATROPIUM-ALBUTEROL 3 ML NEB INHALATION SCH ×2 (08:06→11:11)
[2023-08-10] MEDS: THIAMINE 100 MG TAB PO SCH (08:06)
[2023-08-10] MEDS: APIXABAN 2.5 MG TABLET PO SCH (08:06)
[2023-08-10 08:16] VITALS: RESP 20
[2023-08-10] MEDS ORDERED: predniSONE 20 MG TAB PO SCH (09:00)
--- NOTE | 2023-08-10 09:56 | P.DS ---
Providers Date of admission: 08/04/23 20:41 Expected date of discharge: 08/10/23 Attending physician: Kun Fox MD Primary care physician: 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 Patient presented to the emergency department on 08/04/23 with a chief complaint of shortness of breath. He underwent full evaluation in the emergency department. EKG showing atrial fibrillation with controlled ventricular rate. Chest x-ray was concerning for cardiomegaly and pulmonary vascular congestion with bilateral pleural effusions consistent with CHF. CT head was also completed which was negative for acute intracranial process revealing a remote left parietal infarct along with nonspecific white matter changes secondary to chronic microangiopathy. Labs were completed and reviewed. CBC showing bicytopenia with hemoglobin of 8.3 and platelet count of 137. Coagulation profile showing elevated PT of 12.7, INR 1.2, and PTT of 33.3. Venous Blood gases showing a pH of 7.45, pCO2 of 70, and bicarb of 48. BMP revealing chloride of 82, bicarb of 44, and a mean Of 10 with slight elevation of renal function with creatinine of 1.32. Glucose was normal findings at 101, lactic acid 1.6, and magnesium 1.8. Liver profile showing slightly elevated alkaline phosphatase of 150 otherwise normal findings. Initial troponin was elevated at 0.046. Urinalysis negative for infection and influenza A, influenza B, RSV, and Covid PCR were all negative. Patient was admitted under our services with consultation to cardiology. Troponins trended overnight resulting at 0.023, 0.039, 0.046, and 0.026. TSH 1.590. Echocardiogram completed showing preserved EF of 50% along with some atypical septal motion and septal flattening secondary to pressure and volume overload and right ventricular enlargement with severe pulmonary hypertension. Patient underwent six-day hospitalization for treatment of COPD exacerbation and acute diastolic CHF exacerbation. He was followed closely by cardiology. Pt's Eliquis was decreased to 2.5 mg twice daily and patient was started on Plavix 75 mg daily. Patient's metoprolol was also increased to 50 mg twice daily. Patient received scheduled DuoNeb treatments and was treated with IV steroids. Medically patient showing significant improvement and is at baseline oxygen needs. He reports feeling significantly better at this time and denies having any needs or complaints. Patient has been cleared by cardiology from cardiac perspective and is medically stable for discharge home at this time. Patient declines need for home care currently lives with family who assist with his needs. Patient discharged at this time and to follow up outpatient with PCP in 1-2 days, cardiology in 1 week, and armament aircraft mechanic in 2 weeks. Patient discharged home with both COPD Navigator program and CHF Navigator program. Physical exam: Vital signs reviewed and stable. General: Nontoxic, no distress and appears stated age. Derm: Skin warm and dry, normal coloration for ethnicity. Head: Atraumatic, normocephalic and symmetric. Eyes: EOMs intact, no lid lag, and anicteric sclera Mouth: no lip lesions, mucus membranes moist Cardiovascular: regular rate and rhythm with normal S1S2, systolic murmur, positive posterior tibial pulses bilaterally, and cap refill < 2 seconds. Lungs: Respirations even, regular, and unlabored. Lungs with diffuse rhonchi bilaterally and soft expiratory wheezes. Abdominal: soft, nontender to palpation, no guarding, no appreciable organomegaly Ext: ROM intact. No gross muscle atrophy, 1+ pitting bilateral lower extremity edema, no contractures Neuro: Speech clear, face symmetrical and CN II-XII grossly intact with no noted focal neuro deficits Psych: Alert and oriented to person, place, time, and situation. Appropriate and pleasant affect. A total of 37 minutes of time were spent preparing this complex discharge summary. Pt was discharged on 08/10/23 at 9:55 AM Patient was seen independently by Nurse Practitioner. This document was prepared using [employer] dictation software. Please allow for errors in naval science teacher while rare they do occur. Michel De La Torre NP rendered care for this patient independently, reviewed the findings and plan as documented in the note above. I did not physically speak with or examine the patient on this date. Patient Condition at Discharge: Stable Plan - Discharge Summary Discharge Rx Participant: No New Discharge Prescriptions: New Clopidogrel [Plavix] 75 mg PO DAILY 30 Days #30 tab predniSONE See Taper PO DIRECTED 12 Days #30 tab Apixaban [Eliquis] 2.5 mg PO BID 30 Days #60 tab Metoprolol Tartrate [Lopressor] 50 mg PO BID 30 Days #60 tab Continue Levothyroxine Sodium [Euthyrox] 50 mcg PO DAILY Thiamine [Vitamin B-1] 100 mg PO DAILY Albuterol Nebulized [Ventolin Nebulized] 2.5 mg INHALATION RT-Q4H PRN PRN Reason: Shortness Of Breath Pantoprazole Sodium 40 mg PO AC-BRKFST Mirtazapine [Remeron] 15 mg PO HS Escitalopram Oxalate [Lexapro] 20 mg PO DAILY Atorvastatin [Lipitor] 20 mg PO HS Furosemide [Lasix] 40 mg PO BID@0900,1600 #60 tab Ferrous Sulfate [Iron (65 MG Elemental)] 325 mg PO DAILY Potassium Chloride ER [K-Dur 20] 20 meq PO DAILY Folic Acid 0.8 mg PO DAILY Fluticasone Propion/Salmeterol [Wixela 500-50 Inhub] 1 puff INHALATION RT-BID Discontinued Apixaban [Eliquis] 5 mg PO BID Metoprolol Tartrate [Lopressor] 12.5 mg PO BID Discharge Medication List Levothyroxine Sodium [Euthyrox] 50 mcg PO DAILY 08/04/20 [History] Mirtazapine [Remeron] 15 mg PO HS 12/24/20 [History] Pantoprazole Sodium 40 mg PO AC-BRKFST 12/24/20 [History] Thiamine [Vitamin B-1] 100 mg PO DAILY 12/24/20 [History] Atorvastatin [Lipitor] 20 mg PO HS 10/15/21 [History] Escitalopram Oxalate [Lexapro] 20 mg PO DAILY 10/15/21 [History] Furosemide [Lasix] 40 mg PO BID@0900,1600 #60 tab 10/03/22 [Rx] Albuterol Nebulized [Ventolin Nebulized] 2.5 mg INHALATION RT-Q4H PRN 08/04/23 [History] Ferrous Sulfate [Iron (65 MG Elemental)] 325 mg PO DAILY 08/04/23 [History] Fluticasone Propion/Salmeterol [Wixela 500-50 Inhub] 1 puff INHALATION RT-BID 08/04/23 [History] Folic Acid 0.8 mg PO DAILY 08/04/23 [History] Potassium Chloride ER [K-Dur 20] 20 meq PO DAILY 08/04/23 [History] Apixaban [Eliquis] 2.5 mg PO BID 30 Days #60 tab 08/10/23 [Rx] Clopidogrel [Plavix] 75 mg PO DAILY 30 Days #30 tab 08/10/23 [Rx] Metoprolol Tartrate [Lopressor] 50 mg PO BID 30 Days #60 tab 08/10/23 [Rx] predniSONE See Taper PO DIRECTED 12 Days #30 tab 08/10/23 [Rx] Follow up Appointment(s)/Referral(s): Mulu Downey MD [STAFF PHYSICIAN] - 2 Weeks Dane Denny MD [STAFF PHYSICIAN] - 1 Week [facility] [Primary Care Provider] - 1-2 days Patient Instructions/Handouts: Heart Failure (DC), Dyspnea (DC) Activity/Diet/Wound Care/Special Instructions: Activity: As tolerated. Take breaks as needed. Diet: Heart healthy and carb consistent diet. Avoid salts, or foods with hidden salts such as canned or boxed foods and frozen dinners. Extra salt makes your heart work harder and traps the fluid in your body for longer. Special Instructions: Weigh yourself every morning after you urinate. If you gain 3 pounds overnight or more than 5 pounds in one week, call your primary physician and senior data warehouse architect for guidance on your medications or they may want to see you in their office. Keep a daily log of your weights and be sure to bring with you at follow up visits with your PCP and senior data warehouse architect. Take all of your medications as directed, especially your water pills. NEVER skip a dose. And remember to keep all of your doctor's appointments and follow- up as needed. Elevate your legs when you are not up moving around to help with circulation and prevent swelling. Compression stockings are also a great way to improve lower extremity circulation and prevent/improve lower extremity edema. Call your primary care provider and senior data warehouse architect if you notice any extra swelling in your legs, ankles, feet or abdomen, if you have a new dry cough, if your shortness of breath worsens with activity or at rest, or if you feel more fatigued. Thank you for allowing us to participate in your care, it was truly a pleasure having you for our patient!!! Discharge Disposition: HOME SELF-CARE
[2023-08-10 11:34] LABS: Glucose,Whole Blood 151 mg/dL (70-110)
[2023-08-10 13:02] VITALS: BP 125/68; PULSE 80; TEMP 99
== END 2023-08-10 14:51 | disposition home or self-care (01) | DRG 280 ==
LOC: EC 16:52 → 3SCARD 20:41
PROVIDERS: ADMIT Internal Medicine; ATTEND Internal Medicine
DX: I11.0 Hypertensive heart disease with heart failure (principal); I21.A1 Myocardial infarction type 2; I50.43 Acute on chronic combined systolic (congestive) and diastolic (congestive) heart failure; J44.1 Chronic obstructive pulmonary disease with (acute) exacerbation; J96.11 Chronic respiratory failure with hypoxia; I48.21 Permanent atrial fibrillation; I48.92 Unspecified atrial flutter; J96.12 Chronic respiratory failure with hypercapnia; Z59.00 Homelessness unspecified; Z11.52 Encounter for screening for COVID-19; I25.10 Atherosclerotic heart disease of native coronary artery without angina pectoris; D64.9 Anemia, unspecified; D69.6 Thrombocytopenia, unspecified; E03.9 Hypothyroidism, unspecified; F32.A Depression, unspecified; Z95.5 Presence of coronary angioplasty implant and graft; E78.5 Hyperlipidemia, unspecified; Z79.890 Hormone replacement therapy; F17.210 Nicotine dependence, cigarettes, uncomplicated; H91.90 Unspecified hearing loss, unspecified ear; Z86.73 Personal history of transient ischemic attack (TIA), and cerebral infarction without residual deficits; Z87.01 Personal history of pneumonia (recurrent); H93.13 Tinnitus, bilateral; K29.70 Gastritis, unspecified, without bleeding; K21.9 Gastro-esophageal reflux disease without esophagitis; I27.20 Pulmonary hypertension, unspecified; I25.2 Old myocardial infarction; K74.60 Unspecified cirrhosis of liver; R79.1 Abnormal coagulation profile; W19.XXXA Unspecified fall, initial encounter; Y92.009 Unspecified place in unspecified non-institutional (private) residence as the place of occurrence of the external cause; Z79.01 Long term (current) use of anticoagulants; Z79.51 Long term (current) use of inhaled steroids; Z79.82 Long term (current) use of aspirin; Z79.899 Other long term (current) drug therapy; Z82.49 Family history of ischemic heart disease and other diseases of the circulatory system; Z95.1 Presence of aortocoronary bypass graft; Z85.46 Personal history of malignant neoplasm of prostate; Z95.3 Presence of xenogenic heart valve; Z99.81 Dependence on supplemental oxygen; Z88.8 Allergy status to other drugs, medicaments and biological substances; Z87.81 Personal history of (healed) traumatic fracture
CPT/HCPCS: 36415; 70450; 71046; 80048; 80053; 81001; 82140; 82803; 83605; 83735; 83880; 84443; 84484; 85025; 85027; 85610; 85730; 87636; 93005; 93306; 94640; 94760; 96374; 96375; 96376; 99285